=== PATIENT | female | born 1940 | race Caucasian/White ===

== ENCOUNTER 2019-02-17 21:11 | Inpatient (IN) | payer MEDICARE, SELFPAY ==
[2019-02-17 21:11] VITALS: BP 138/57; PULSE 83; RESP 16; TEMP 38.2; O2SAT 96; BMI 30.9
--- NOTE | 2019-02-17 22:47 | PCM.HP.STD ---
Problem List (1) Cellulitis of right leg Status: Acute History of Present Illness Date of Admission: 02/17/19 Chief Complaint: outpatient treatment failure of diagnosed cellulitis The patient is a 78 year old F with a significant history of Depression; HTN; and hyperlipidemia who was diagnosed with cellulitis of her right leg and was on doxycycline for 6 days and has not noticed improvement in her cellulitis. Patient continues to have swelling; redness; and pain at his right leg. She has poor appetite and chills. She thinks her symptoms started after she did mulching. The patient is a 78 year old F with a significant history of Depression; HTN; and hyperlipidemia who was diagnosed with cellulitis of her right leg and was on doxycycline for 6 days and has not noticed improvement in her cellulitis. Cellulitis Patient noted to have fever with T-max of 102. Received vancomycin in the emergency department. We will change antibiotics to cefazolin. Because of toxic effects of probable Streptococcus we will add clindamycin. Tylenol PRN pain and fever DVT prophylaxis Subcutaneous Lovenox Past Medical History Allergies Penicillins Adverse Reaction (Verified 02/17/19 21:13) Hives BEE STINGS Allergy (Uncoded 02/17/19 21:13) Anaphylaxis Home Medications: Ambulatory Orders Medication Instructions Recorded Atorvastatin Calcium [Lipitor] 20 mg PO QHS 12/15/15 Calcium Carbonate/Vitamin D3 1 tab PO DAILY 12/15/15 [Calcium 500+D Tablet Chew] Cholecalciferol (VIT D3) [Vitamin 2,000 unit PO DAILY 12/15/15 D3] Multivitamin [Daily Multiple 1 each PO DAILY 12/15/15 Vitamin] Paroxetine [Paxil] 20 mg PO DAILY 12/15/15 Vitamin E 200 unit PO DAILY 12/15/15 Triamterene 75MG/Hctz 50MG 1 tablet PO DAILY 08/23/16 [Maxzide] Amlodipine Besylate 2.5 mg PO DAILY 02/17/19 Aspirin 81 mg PO DAILY 02/17/19 Smoking Status: Former smoker VTE Information - Inpt Only VTE Present on Admission: No VTE Mechan Device Prophylaxis: None VTE Pharm Prophylaxis ordered?: Yes Patient Problems: Active and Suspected Problems Cellulitis of right leg (Acute) - Physical Exam General: Alert, Oriented x3, Cooperative HEENT: Atraumatic, PERRLA, EOMI, Normocephalic Neck: Supple, No JVD, Negative Carotid Bruits Lungs: Clear to auscultation, Normal air movement Cardiovascular: Regular rate, No murmurs Abdomen: Bowel Sounds Present, Soft, Non Tender Extremities: No edema, Capillary Refill Less than 3 Seconds Skin: - - Right leg swelling, eryhthema and tenderness Musculoskeletal: No Muscle Wasting Neurological: Cranial nerves II-XII grossly intact Psych/Mental Status: Normal Affect, Appropriate Vital Signs Temp Pulse Resp BP Pulse Ox 100.8 F H 83 16 138/57 H 96 02/17/19 21:11 02/17/19 21:11 02/17/19 21:11 02/17/19 21:11 02/17/19 21:11 Oxygen Delivery Method Room Air Weight: 87.09 kg Body Mass Index (BMI) 30.9 Assessment/Plan All Active Problems Cellulitis of right leg (Acute) The patient is a 78 year old F with a significant history of Depression; HTN; and hyperlipidemia who was diagnosed with cellulitis of her right leg and was on doxycycline for 6 days and has not noticed improvement in her cellulitis. Cellulitis Patient noted to have fever with T-max of 102. Received vancomycin in the emergency department. We will change antibiotics to cefazolin. Because of toxic effects of probable Streptococcus we will add clindamycin. Tylenol PRN pain and fever Oxycodone as needed. Attention On presentation her blood pressure was fairly stable Amlodipine; and triamterene/hydrochlorothiazide continued Trend blood pressure and adjust blood pressure medication. Depression Paroxetine continued DVT prophylaxis Subcutaneous Lovenox Code Visit OBSV E&M: 01837 Initial observation care L3
[2019-02-17 22:53] LABS: Absolute Lymphocyte Count 0.65 X10^3/ul (0.83-4.51); Absolute Neutrophil Count 4.2 X10^3/uL (2.0-7.7); Basophil# 0.01 X10^3/uL; Basophil% 0.2 % (0-1); Eosinophil# 0.58 X10^3/uL; Eosinophils% 9.5 % (0-5); Hematocrit 32.5 % (37-47); Lymphocyte # 0.65 X10^3/ul (4.0); Lymphocyte % 10.6 % (19-41); Mean Corp Hgb Conc 33.8 g/gl (32-36); Mean Corpuscular Hgb 28.9 pg (27.0-32.0); Mean Corpuscular Volume 85.3 fL (81-99); Mean Platelet Vol. 10.4 fl (6.2-12.0); Monocyte# 0.63 X10^3/uL; Monocyte% 10.3 % (0-10); Neutrophil # 4.21 X10^3/uL (2.7-7.7); Neutrophil % 68.6 % (47-70); POSITIVE COUNT NO; POSITIVE DIFFERENTIAL NO; POSITIVE MORPHOLOGY NO; Platelet Count 209 K/mm3 (150-450); RBC Distribution Width CV 13.5 % (11.6-14.6); Red Blood Count 3.81 M/mm3 (4.2-5.4); White Blood Count 6.1 K/mm3 (4.4-11.0)
--- NOTE | 2019-02-17 23:01 | ED.VISSUMM ---
- ER Visit Summary Date of Service: 02/17/19 Chief Complaint: Cellulitis History of Present Illness: The patient is a 78 F with right leg cellulitis. Symptoms started about 6 days ago. She was working in the yard but does not know of any specific injuries. She noted some redness. She saw her PCP and was treated with doxycycline. Despite treatment for almost a week, her symptoms are worsening. The redness is spreading and involves her right lower leg. She does report subjective fevers and chills. She has a history of cellulitis in the past that required hospitalization. Physical Examination: 100.8. Otherwise vital signs unremarkable. Alert and oriented. Right lower extremity is erythematous and tender to palpation from the right knee distal to the right ankle. Skin intact. Neurovascular intact distally. Compartments soft. Calves soft. Test Results: CBC unremarkable. Metabolic panel and cultures pending. Emergency Department Course and Treatment: Patient treated with vancomycin and Tylenol. She presents with cellulitis with failed outpatient treatment and will require hospitalization. Hospitalist was contacted. Treatment Plan: As above Disposition: Admission Impression: 1. Right lower extremity cellulitis This note was generated with [employer] dictation software. It may contain incorrect words, spelling, and punctuation that were not noted in review of the chart prior to signing ED Disposition - Plan for ED Patient: Referrals: Topher Hernandez MD [Primary Care Provider] -
[2019-02-17 23:31] LABS: Anion Gap 8 (5-15); BUN 17 mg/dL (7-18); BUN/Creat Ratio 14.9 RATIO (10-20); Calcium,Total 8.1 mg/dL (8.5-10.1); Chloride 97 mmol/L (98-107); Creatinine, Serum 1.14 mg/dL (0.55-1.02); EST Glomerular Filtration Rate 49 mL/min (>60); Est Glom Filt Rate - Afr Amer 59 mL/min (>60); Estimated Creatinine Clearance 38.07 ml/min; Glucose 119 mg/dL (74-106); Potassium 3.4 mmol/L (3.5-5.1); Sodium Level 133 mmol/L (136-145)
[2019-02-17] MEDS: Acetaminophen 500 MG Tablet 1000 MG PO (23:34)
[2019-02-17 23:49] VITALS: BMI 31.6
[2019-02-17 23:50] VITALS: BP 114/43; PULSE 68; RESP 20; TEMP 38.9; O2SAT 99
[2019-02-17 23:57] VITALS: BMI 31.6
[2019-02-18] VITALS (9 sets, daily range): BP systolic 100–132; BP diastolic 39–53; PULSE 59–80; RESP 16–18; TEMP 36.6–39.2; O2SAT 95–99
[2019-02-18] MEDS: Cefazolin 1 GM/50 ML BAG IV ×3 (00:45→13:23)
[2019-02-18] MEDS: Acetaminophen 325 MG Tablet 650 MG PO ×3 (06:01→20:07)
[2019-02-18 07:04] LABS: Absolute Neutrophil Count 3.2 X10^3/uL (2.0-7.7); Basophil# 0.01 X10^3/uL; Basophil% 0.2 % (0-1); Differential Indicated SCAN CRITERIA MET; Eosinophil# 0.47 X10^3/uL; Eosinophils% 9.7 % (0-5); Hemoglobin 10.4 g/dl (12.0-15.0); Lymphocyte % 10.3 % (19-41); Mean Corp Hgb Conc 33.5 g/gl (32-36); Mean Corpuscular Hgb 28.9 pg (27.0-32.0); Mean Corpuscular Volume 86.1 fL (81-99); Mean Platelet Vol. 10.1 fl (6.2-12.0); Monocyte# 0.59 X10^3/uL; Monocyte% 12.2 % (0-10); Neutrophil # 3.24 X10^3/uL (2.7-7.7); POSITIVE COUNT NO; POSITIVE DIFFERENTIAL YES; POSITIVE MORPHOLOGY NO; Platelet Count 178 K/mm3 (150-450); RBC Distribution Width CV 13.7 % (11.6-14.6); RBC Distribution Width SD 41.9 fl (35.1-43.9); White Blood Count 4.8 K/mm3 (4.4-11.0)
[2019-02-18 07:40] LABS: Platelet Estimate ADEQUATE (ADEQ); Red Cell Morphology NORM C+C NORMAL (NORM C&C)
[2019-02-18] MEDS: Multivitamins,Therapeutic Tablet 1 TABLET PO (08:45)
[2019-02-18] MEDS: Triamterene 75MG/Hctz 50MG Tablet 1 TABLET PO (08:45)
[2019-02-18] MEDS: Enoxaparin 40 MG/0.4 ML Syringe SC (08:45)
[2019-02-18] MEDS: Calcium Carb/Vitamin D 1 TABLET Tablet PO (08:45)
[2019-02-18] MEDS: amLODIPine 2.5 MG Tablet PO (08:46)
[2019-02-18] MEDS: Aspirin 81 MG TAB.CHEW PO (08:46)
[2019-02-18] MEDS: Paroxetine 20 MG Tablet PO (08:47)
--- NOTE | 2019-02-18 11:10 | CASEMGMT ---
RN CLIFF Face to Face with patient for initial transition planning/care coordination assessment. RN CM introduced self and role at [facility]. Patient lying in bed, alert and oriented. Patient willing to participate in assessment and is able to answer all questions appropriately. Care providers, pharmacy, and demographics verified. Patient wishes to discharge home, denies need for home health at this time. Patient states she has no further needs or concerns at this time. CM to follow for discharge planning needs that may arise. PCP: David Specialists: Karena Kelly Pharmacy: [facility] Insurance: [employer] Prescription Benefit:yes Living Will/HPOA: yes, Maximilian Colvin LNOK: Living Arrangements: Patient lives with in 1 story home. Patient was independent at home prior to hospitalization Transportation: self/ DME/HHC: Patient has walker, cane, and shower chair at home. Disposition Plan: Patient to discharge home with family support and follow-up plans in place. Brigette VITALE, RN, CM
--- NOTE | 2019-02-18 18:15 | PN_ITS ---
Patient Problems: Active and Suspected Problems Cellulitis of right leg (Acute) Subjective: Patient was seen and examined today, she has continued redness of her right lower leg, I decided to stop her clindamycin and increase her dose of Ancef, patient ran a temperature this afternoon but then defervesced. Patient's white blood cell count remained normal today, BMP was not repeated-I will repeat this tomorrow. - Physical Exam General: Alert, Oriented x3, Cooperative, No apparent distress, Well developed, Well nourished HEENT: Atraumatic, PERRLA, EOMI, Normocephalic Oral: Moist Mucosa Neck: Supple, No JVD, No Nuchal Rigidity, Trachea Midline, Thyroid Normal Size and Texture Lungs: Clear to auscultation, Normal air movement, No rhonchi, No wheeze, No rales Cardiovascular: Regular rate, Regular Rhythm, Normal S1, Normal S2, No murmurs, No Ectopic Activity, PMI Normal, No rub noted Abdomen: Bowel Sounds Present, Soft, Non Tender, Non-Distended, No hernias noted Extremities: Capillary Refill Less than 3 Seconds, - - Patient has redness over her right lower leg extending up to the distal knee area, she has evidence of stasis dermatitis changes to her skin on both lower legs-more so on the right Skin: No breakdown Neurological: Cranial nerves II-XII grossly intact, Neuro grossly intact, Sensory exam intact to light touch and pain, Coordination normal Psych/Mental Status: Normal Affect, Appropriate, Alert and oriented to time, place, person, mood and affect Vital Signs Temp Pulse Resp BP Pulse Ox 99.6 F H 72 16 104/45 L 96 02/18/19 15:26 02/18/19 14:12 02/18/19 14:12 02/18/19 14:12 02/18/19 14:12 Oxygen Delivery Method Room Air Weight: 88.9 kg Body Mass Index (BMI) 31.6 Intake and Output for Last 24 Hours 02/16/19 02/17/19 02/18/19 23:59 23:59 23:59 Intake Total 1500 / 1500 Balance 1500 / 1500 Laboratory Tests Past 24 Hrs 02/17/19 02/17/19 02/17/19 22:28 22:28 23:10 WBC 6.1 RBC 3.81 L Hgb 11.0 L Hct 32.5 L MCV 85.3 MCH 28.9 MCHC 33.8 RDW 13.5 RDW Differential 41.0 Plt Count 209 MPV 10.4 Immature Gran % (Auto) 0.800 Neut % (Auto) 68.6 Lymph % (Auto) 10.6 L [place] % (Auto) 10.3 H Eos % (Auto) 9.5 H Baso % (Auto) 0.2 Absolute Neuts (auto) 4.2 Absolute Lymphs (auto) 0.65 L Total Counted Not Reportable Differential Comment Platelet Estimate RBC Morphology Sodium Cancelled 133 L Potassium Cancelled 3.4 L Chloride Cancelled 97 L Carbon Dioxide Cancelled 28.0 Anion Gap Cancelled 8 BUN Cancelled 17 Creatinine Cancelled 1.14 H Estim Creat Clear Calc Cancelled 38.07 Est GFR (MDRD) Af Amer Cancelled 59 L Est GFR (MDRD) Non-Af Cancelled 49 L BUN/Creatinine Ratio Cancelled 14.9 Glucose Cancelled 119 H Calcium Cancelled 8.1 L 02/18/19 06:45 WBC 4.8 RBC 3.60 L Hgb 10.4 L Hct 31.0 L MCV 86.1 MCH 28.9 MCHC 33.5 RDW 13.7 RDW Differential 41.9 Plt Count 178 MPV 10.1 Immature Gran % (Auto) 0.600 Neut % (Auto) 67.0 Lymph % (Auto) 10.3 L [place] % (Auto) 12.2 H Eos % (Auto) 9.7 H Baso % (Auto) 0.2 Absolute Neuts (auto) 3.2 Absolute Lymphs (auto) 0.50 L Total Counted Not Reportable Differential Comment Platelet Estimate ADEQUATE RBC Morphology NORM C+C Sodium Potassium Chloride Carbon Dioxide Anion Gap BUN Creatinine Estim Creat Clear Calc Est GFR (MDRD) Af Amer Est GFR (MDRD) Non-Af BUN/Creatinine Ratio Glucose Calcium Medical Necessity - Tobacco Use Smoking Status: Former smoker Assessment/Plan All Active Problems Cellulitis of right leg (Acute) #1 cellulitis of the right lower leg-suspect either strep or staph-less likely MRSA, patient will remain on Ancef IV #2 chronic kidney dysfunction stage III-part of this may be due to her use of Maxide, recheck BMP, for now I will stop the patient's Maxide due to her low systolic blood pressure #3 essential hypertension #4 depression #5 hyperlipidemia Code Visit Inpatient E&M: 07726 Subs Hosp L2
[2019-02-18] MEDS: Ondansetron 4 MG/2 ML Vial IV (20:07)
[2019-02-18] MEDS: 0.9% NaCl Peripheral Flush Adult/Peds IV (20:07)
[2019-02-18] MEDS: 0.9% NaCl IVPB Med Flush (250 mL) 15 ML IV (20:13)
[2019-02-18] MEDS: Cefazolin 2 GM in 0.9% Normal Saline 100 ML IV (22:18)
[2019-02-18] MEDS: Atorvastatin Calcium 20 MG Tablet PO (22:18)
[2019-02-18] MEDS: MELATONIN 3 MG TABLET PO (22:51)
[2019-02-19] VITALS (8 sets, daily range): BP systolic 109–130; BP diastolic 41–53; PULSE 62–76; RESP 16–18; TEMP 37–39.5; O2SAT 92–97
[2019-02-19] MEDS: Cefazolin 2 GM in 0.9% Normal Saline 100 ML IV ×3 (05:38→21:41)
[2019-02-19] MEDS: Acetaminophen 325 MG Tablet 650 MG PO ×3 (06:07→20:02)
[2019-02-19 07:09] LABS: Anion Gap 10 (5-15); BUN 19 mg/dL (7-18); BUN/Creat Ratio 15.3 RATIO (10-20); Calcium,Total 8.2 mg/dL (8.5-10.1); Chloride 96 mmol/L (98-107); Creatinine, Serum 1.24 mg/dL (0.55-1.02); EST Glomerular Filtration Rate 44 mL/min (>60); Est Glom Filt Rate - Afr Amer 54 mL/min (>60); Glucose 92 mg/dL (74-106); Potassium 3.5 mmol/L (3.5-5.1); Sodium Level 131 mmol/L (136-145)
[2019-02-19] MEDS: Enoxaparin 40 MG/0.4 ML Syringe SC (08:54)
[2019-02-19] MEDS: amLODIPine 2.5 MG Tablet PO (08:54)
--- NOTE | 2019-02-19 09:40 | NURSING ---
BESIDES NORVASC & LOVENOX, AM MEDS ARE BEING HELD FOR NOW - PT STATES TAKES THEM IN THE AFTERNOON WHEN @ HOME & WOULD LIKE TO STAY ON SAME SCHEDULE HERE.
--- NOTE | 2019-02-19 15:24 | NURSING ---
PT HAD EMESIS, DENIES NAUSEA OR NEED FOR ANTIEMETIC AFTERWARD, STATES FEELS BETTER BUT WOULD LIKE SOME TUMS - DR CLARK PAGED FOR SAME.
[2019-02-19] MEDS: Calcium Carbonate 500 MG Tablet 1000 MG PO (15:41)
--- NOTE | 2019-02-19 16:00 | PCM.HP.ID ---
Problem List (1) Cellulitis of right leg Status: Acute Reason for Consult: cellulitis Consulted by: Dr. De Dios History of Present Illness: The patient is a 78 year old F who presented with about one week of RLE redness, mild soreness, fever. Thinks symptoms started while mulching. Was started on doxy outpt without improvement. Admitted through ED here after sx worsened. Given vanc, admitted on clinda/cefazolin. Now clinda stopped, leg redness slightly improved. No pain in leg now. Having fever to 102. Full ROS performed and neg except as noted above. - Medical History Surgical History: reviewed Allergies/Adverse Reactions: Allergies Penicillins Adverse Reaction (Verified 02/17/19 21:13) Hives BEE STINGS Allergy (Uncoded 02/17/19 21:13) Anaphylaxis Home Medications: Ambulatory Orders Medication Instructions Recorded Atorvastatin Calcium [Lipitor] 20 mg PO QHS 12/15/15 Calcium Carbonate/Vitamin D3 1 tab PO DAILY 12/15/15 [Calcium 500+D Tablet Chew] Cholecalciferol (VIT D3) [Vitamin 2,000 unit PO DAILY 12/15/15 D3] Multivitamin [Daily Multiple 1 each PO DAILY 12/15/15 Vitamin] Paroxetine [Paxil] 20 mg PO DAILY 12/15/15 Vitamin E 200 unit PO DAILY 12/15/15 Triamterene 75MG/Hctz 50MG 1 tablet PO DAILY 08/23/16 [Maxzide] Amlodipine Besylate 2.5 mg PO DAILY 02/17/19 Aspirin 81 mg PO DAILY 02/17/19 - Social History Tobacco Use: non-smoker SMOKING STATUS:: Former smoker Vital Signs Temp Pulse Resp BP Pulse Ox 99.2 F H 66 18 115/41 L 92 02/19/19 15:44 02/19/19 13:35 02/19/19 13:35 02/19/19 13:35 02/19/19 13:35 Oxygen Delivery Method Room Air Weight: 88.9 kg Body Mass Index (BMI) 31.6 Laboratory Tests Past 24 Hrs 02/19/19 06:34 Sodium 131 L Potassium 3.5 Chloride 96 L Carbon Dioxide 25.0 Anion Gap 10 BUN 19 H Creatinine 1.24 H Estim Creat Clear Calc 35.00 Est GFR (MDRD) Af Amer 54 L Est GFR (MDRD) Non-Af 44 L BUN/Creatinine Ratio 15.3 Glucose 92 Calcium 8.2 L - Other Studies Radiology: [] reviewed Other Studies: [] Route of nutrition/ use of supplements: [] Nutritional Intake: [] IV Site: [] Rowland Catheter: [] - Physical Exam General: Alert, Oriented x3, Cooperative, No apparent distress HEENT: Atraumatic, PERRLA, EOMI Neck: Supple, No Nodes Lungs: Clear to auscultation, Normal air movement Cardiovascular: Regular rate, Regular Rhythm, No murmurs Abdomen: Soft, Non Tender, Non-Distended Extremities: Edema Skin: - - Numerous petechial rash on R roberts/calf. Non tender, no drainage. IV Site: Peripheral, without redness Musculoskeletal: No Tenderness to Palpation of Joints or Extremities Neurological: Cranial nerves II-XII grossly intact - Assessment/Plan Antibiotics: [] Assessment/Plan: [] Active and Suspected Problems Cellulitis of right leg (Acute) Fever with petechial rash on RLE - not consistent with typical cellulitis. It is not tender, not blanching, minimal improvement with abx. Still having fever despite cefazolin, neg Bcx. Concern is for a cutaneous vasculitis. Platelet count is fine. Would consider skin biopsy and/or empiric course of steroids. Ok to continue cefazolin for now while cxs pending. Will follow, thank you, d/w Dr. De Dios.
--- NOTE | 2019-02-19 17:11 | PCM.PROGNOTE ---
Patient Problems: Active and Suspected Problems Cellulitis of right leg (Acute) Subjective: Patient was seen and examined today, she continues to spike temperatures at times, I had infectious diseases see her today and infectious disease was concerned that this reddened skin area over her right lower leg could be a vasculitis, they recommended placing the patient on a short course of prednisone and continuing her antibiotics. - Physical Exam General: Alert, Oriented x3, Cooperative, No apparent distress, Well developed, Well nourished HEENT: Atraumatic, PERRLA, EOMI, Normocephalic Oral: Moist Mucosa Neck: Supple, No JVD, No Nuchal Rigidity, Trachea Midline, Thyroid Normal Size and Texture Lungs: Clear to auscultation, Normal air movement, No rhonchi, No wheeze, No rales Cardiovascular: Regular rate, Regular Rhythm, Normal S1, Normal S2, No murmurs, No Ectopic Activity, PMI Normal, No rub noted, No Gallop Abdomen: Bowel Sounds Present, Soft, Non Tender, Non-Distended Extremities: No clubbing, No cyanosis, Capillary Refill Less than 3 Seconds, Edema - Mild generalized lower leg edema is noted bilaterally Skin: No breakdown, - - There is increased redness over the patient's right lower leg below the knee and above the ankle, this area is also warm Musculoskeletal: No Tenderness to Palpation of Joints or Extremities Neurological: Cranial nerves II-XII grossly intact, Neuro grossly intact, Sensory exam intact to light touch and pain, Coordination normal Psych/Mental Status: Normal Affect, Appropriate, Alert and oriented to time, place, person, mood and affect Vital Signs Temp Pulse Resp BP Pulse Ox 99.2 F H 66 18 115/41 L 92 02/19/19 15:44 02/19/19 13:35 02/19/19 13:35 02/19/19 13:35 02/19/19 13:35 Oxygen Delivery Method Room Air Weight: 88.9 kg Body Mass Index (BMI) 31.6 Intake and Output for Last 24 Hours 02/17/19 02/18/19 02/19/19 23:59 23:59 23:59 Intake Total 1500 / 1500 1757 / 1757 Balance 1500 / 1500 1757 / 1757 Laboratory Tests Past 24 Hrs 02/19/19 06:34 Sodium 131 L Potassium 3.5 Chloride 96 L Carbon Dioxide 25.0 Anion Gap 10 BUN 19 H Creatinine 1.24 H Estim Creat Clear Calc 35.00 Est GFR (MDRD) Af Amer 54 L Est GFR (MDRD) Non-Af 44 L BUN/Creatinine Ratio 15.3 Glucose 92 Calcium 8.2 L Medical Necessity - Tobacco Use Smoking Status: Former smoker Assessment/Plan All Active Problems Cellulitis of right leg (Acute) #1 cellulitis of the right lower leg-suspect either strep or staph-less likely MRSA, patient will remain on Ancef IV #2 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 Infectious diseases questioned that a skin biopsy would need to be done as an outpatient-this should be mentioned to the patient when she follows up with her PCP #3 chronic kidney dysfunction stage III-part of this may be due to her use of Maxide, I will repeat the patient's BMP tomorrow, her creatinine bumped up slightly from yesterday #4 essential hypertension #5 depression #6 hyperlipidemia Code Visit Inpatient E&M: 97662 Subs Hosp L2
--- NOTE | 2019-02-19 18:21 | NURSING ---
PT TEMP 101.2. TYLENOL NOT DUE UNTIL 1930. DR CLARK HERE ON UNIT & MADE AWARE. COOL WASHCLOTHS PLACED ON PT FOREHEAD/HEAD.
[2019-02-19] MEDS: Paroxetine 20 MG Tablet PO (18:49)
[2019-02-19] MEDS: predniSONE 20 MG Tablet 40 MG PO (18:49)
[2019-02-19] MEDS: Atorvastatin Calcium 20 MG Tablet PO (21:42)
[2019-02-20 03:32] VITALS: BP 109/56; PULSE 68; RESP 18; TEMP 37.3; O2SAT 96
[2019-02-20] MEDS: Cefazolin 2 GM in 0.9% Normal Saline 100 ML IV ×3 (05:51→22:27)
[2019-02-20 07:48] LABS: Anion Gap 8 (5-15); BUN 18 mg/dL (7-18); BUN/Creat Ratio 15.5 RATIO (10-20); Calcium,Total 8.7 mg/dL (8.5-10.1); Chloride 98 mmol/L (98-107); Creatinine, Serum 1.16 mg/dL (0.55-1.02); EST Glomerular Filtration Rate 48 mL/min (>60); Est Glom Filt Rate - Afr Amer 58 mL/min (>60); Estimated Creatinine Clearance 37.42 ml/min; Glucose 114 mg/dL (74-106); Potassium 3.8 mmol/L (3.5-5.1); Sodium Level 133 mmol/L (136-145)
[2019-02-20 08:59] VITALS: BP 109/52; PULSE 61; RESP 16; TEMP 37.3; O2SAT 94
[2019-02-20] MEDS: amLODIPine 2.5 MG Tablet PO (09:11)
[2019-02-20] MEDS: predniSONE 20 MG Tablet 40 MG PO (09:12)
[2019-02-20] MEDS: Aspirin 81 MG TAB.CHEW PO (09:14)
[2019-02-20] MEDS: 0.9% Normal Saline 1,000 ML 75 ML IV ×2 (09:24→22:45)
--- NOTE | 2019-02-20 09:45 | PCM.PROGNOTE ---
Patient Problems: Active and Suspected Problems Cellulitis of right leg (Acute) Subjective: Chief complaint: Follow-up after admission for probable right lower extremity cellulitis and questionable vasculitis of the left lower leg. Patient seen and examined. No acute events overnight. Swelling and erythema of the right leg continued to improve very slowly, still having petechial rash. Last spike of fever was around 10 PM last night, other vital signs are stable. - Physical Exam General: Alert, Oriented x3, Cooperative, No apparent distress HEENT: Atraumatic, PERRLA, EOMI, Normocephalic Oral: Moist Mucosa, No Gingival or Mucosal Lesions/ Ulcerations Neck: Supple, No JVD, Negative Carotid Bruits, Trachea Midline, Thyroid Normal Size and Texture Lungs: Clear to auscultation, No rhonchi, No wheeze, No rales, Diminished Cardiovascular: Regular rate, Regular Rhythm, Normal S1, Normal S2, PMI Normal Abdomen: Bowel Sounds Present, Soft, Non Tender, Non-Distended, No Hepato-splenomegaly Extremities: No clubbing, No cyanosis, No edema, - - Right leg: Minimal erythema, improving, petechial rash. Skin: No breakdown, Rash Present Lymphatic: No Cervical, Supraclavicular, or Inguinal Adenopathy Neurological: Cranial nerves II-XII grossly intact, Motor Exam 5/5 strength throughout Psych/Mental Status: Normal Affect, Appropriate, Alert and oriented to time, place, person, mood and affect Vital Signs Temp Pulse Resp BP Pulse Ox 99.1 F 61 16 109/52 L 94 02/20/19 08:59 02/20/19 08:59 02/20/19 08:59 02/20/19 08:59 02/20/19 08:59 Oxygen Delivery Method Room Air Weight: 195 lb 15.855 oz Body Mass Index (BMI) 31.6 Intake and Output for Last 24 Hours 02/18/19 02/19/19 02/20/19 23:59 23:59 23:59 Intake Total 1500 / 1500 2250 / 2250 818.7 / 818.7 Balance 1500 / 1500 2250 / 2250 818.7 / 818.7 Microbiology Past 72 Hours 02/17/19 22:37 Blood Culture - Preliminary Blood Culture (Wb) - Left Forearm No growth in 48 hours. 02/17/19 22:28 Blood Culture - Preliminary Blood Culture (Wb) - Anticubital Right No growth in 48 hours. Laboratory Tests Past 24 Hrs 02/20/19 07:00 Sodium 133 L Potassium 3.8 Chloride 98 Carbon Dioxide 27.0 Anion Gap 8 BUN 18 Creatinine 1.16 H Estim Creat Clear Calc 37.42 Est GFR (MDRD) Af Amer 58 L Est GFR (MDRD) Non-Af 48 L BUN/Creatinine Ratio 15.5 Glucose 114 H Calcium 8.7 Medical Necessity - Tobacco Use Smoking Status: Former smoker Assessment/Plan All Active Problems Cellulitis of right leg (Acute) This is a 78 years old female patient presented to the emergency room because of right leg swelling and erythema, found to have probable acute cellulitis of the right lower extremity with failure of outpatient therapy and because her clinical findings on the right leg is not typical for psoriasis, she is suspected to have vasculitis and started on steroids. #1 acute right lower extremity cellulitis/probable vasculitis: She is on IV cefazolin, started on prednisone yesterday according to infectious disease recommendations. Last spike fever was last night at 10 PM, other vital signs are stable. This morning, she has been afebrile. Blood cultures with no growth. She was started on prednisone for possible vasculitis. Recommended skin biopsy as outpatient. Plan: Check ESR, CRP, continue same treatment and if no fever overnight, patient will be discharged home tomorrow morning. #2 mild renal insufficiency: Fairly acute, likely because of diuretics. Patient was on Maxide. Plan to restart IV fluids, repeat BMP tomorrow morning. #3 hypertension: Blood pressure stable, continue Norvasc, keep holding Maxide. #4 hyperlipidemia: Continue statins. #5 depression: Continue Paxil. #6 DVT prophylaxis: Continue subcu Lovenox. This note was generated with [employer] software. It may contain incorrect words, spelling, and punctuation that were not noted in checking the note before signing. Code Visit Inpatient E&M: 85055 Subs Hosp L2
--- NOTE | 2019-02-20 09:52 | PN_ITS ---
Patient Problems: Active and Suspected Problems Cellulitis of right leg (Acute) Subjective: Chief complaint: Follow-up after admission for probable right lower extremity cellulitis and questionable vasculitis of the left lower leg. Patient seen and examined. No acute events overnight. Swelling and erythema of the right leg continued to improve very slowly, still having petechial rash. Last spike of fever was around 10 PM last night, other vital signs are stable. - Physical Exam General: Alert, Oriented x3, Cooperative, No apparent distress HEENT: Atraumatic, PERRLA, EOMI, Normocephalic Oral: Moist Mucosa, No Gingival or Mucosal Lesions/ Ulcerations Neck: Supple, No JVD, Negative Carotid Bruits, Trachea Midline, Thyroid Normal Size and Texture Lungs: Clear to auscultation, No rhonchi, No wheeze, No rales, Diminished Cardiovascular: Regular rate, Regular Rhythm, Normal S1, Normal S2, PMI Normal Abdomen: Bowel Sounds Present, Soft, Non Tender, Non-Distended, No Hepato- splenomegaly Extremities: No clubbing, No cyanosis, No edema, - - Right leg: Minimal erythema, improving, petechial rash. Skin: No breakdown, Rash Present Lymphatic: No Cervical, Supraclavicular, or Inguinal Adenopathy Neurological: Cranial nerves II-XII grossly intact, Motor Exam 5/5 strength throughout Psych/Mental Status: Normal Affect, Appropriate, Alert and oriented to time, place, person, mood and affect Vital Signs Temp Pulse Resp BP Pulse Ox 99.1 F 61 16 109/52 L 94 02/20/19 08:59 02/20/19 08:59 02/20/19 08:59 02/20/19 08:59 02/20/19 08:59 Oxygen Delivery Method Room Air Weight: 195 lb 15.855 oz Body Mass Index (BMI) 31.6 Intake and Output for Last 24 Hours 02/18/19 02/19/19 02/20/19 23:59 23:59 23:59 Intake Total 1500 / 1500 2250 / 2250 818.7 / 818.7 Balance 1500 / 1500 2250 / 2250 818.7 / 818.7 Microbiology Past 72 Hours 02/17/19 22:37 Blood Culture - Preliminary Blood Culture (Wb) - Left Forearm No growth in 48 hours. 02/17/19 22:28 Blood Culture - Preliminary Blood Culture (Wb) - Anticubital Right No growth in 48 hours. Laboratory Tests Past 24 Hrs 02/20/19 07:00 Sodium 133 L Potassium 3.8 Chloride 98 Carbon Dioxide 27.0 Anion Gap 8 BUN 18 Creatinine 1.16 H Estim Creat Clear Calc 37.42 Est GFR (MDRD) Af Amer 58 L Est GFR (MDRD) Non-Af 48 L BUN/Creatinine Ratio 15.5 Glucose 114 H Calcium 8.7 Medical Necessity - Tobacco Use Smoking Status: Former smoker Assessment/Plan All Active Problems Cellulitis of right leg (Acute) This is a 78 years old female patient presented to the emergency room because of right leg swelling and erythema, found to have probable acute cellulitis of the right lower extremity with failure of outpatient therapy and because her clinical findings on the right leg is not typical for psoriasis, she is nazia pected to have vasculitis and started on steroids. #1 acute right lower extremity cellulitis/probable vasculitis: She is on IV cefazolin, started on prednisone yesterday according to infectious disease recommendations. Last spike fever was last night at 10 PM, other vital signs are stable. This morning, she has been afebrile. Blood cultures with no growth. She was started on prednisone for possible vasculitis. Recommended skin biopsy as outpatient. Plan: Check ESR, CRP, continue same treatment and if no fever overnight, patient will be discharged home tomorrow morning. #2 mild renal insufficiency: Fairly acute, likely because of diuretics. Patient was on Maxide. Plan to restart IV fluids, repeat BMP tomorrow morning. #3 hypertension: Blood pressure stable, continue Norvasc, keep holding Maxide. #4 hyperlipidemia: Continue statins. #5 depression: Continue Paxil. #6 DVT prophylaxis: Continue subcu Lovenox. This note was generated with [employer] dictation software. It may contain incorrect words, spelling, and punctuation that were not noted in checking the note before signing. Code Visit Inpatient E&M: 68772 Subs Hosp L2
[2019-02-20 10:32] LABS: Erythrocyte Sedimentation Rate 57 mm/hr (0-30)
[2019-02-20 15:00] VITALS: BP 127/67; PULSE 58; RESP 16; TEMP 37.1; O2SAT 94
[2019-02-20] MEDS: Enoxaparin 40 MG/0.4 ML Syringe SC (15:04)
[2019-02-20 20:05] VITALS: BP 113/57; PULSE 55; RESP 18; TEMP 36.9; O2SAT 95
[2019-02-20] MEDS: Multivitamins,Therapeutic Tablet 1 TABLET PO (22:29)
[2019-02-20] MEDS: Paroxetine 20 MG Tablet PO (22:29)
[2019-02-20] MEDS: Calcium Carb/Vitamin D 1 TABLET Tablet PO (22:29)
[2019-02-20] MEDS: Atorvastatin Calcium 20 MG Tablet PO (22:29)
[2019-02-20] MEDS: Acetaminophen 325 MG Tablet 650 MG PO (22:34)
[2019-02-21] VITALS (8 sets, daily range): BP systolic 108–148; BP diastolic 51–67; PULSE 55–82; RESP 15–20; TEMP 36.6–37.3; O2SAT 92–97
[2019-02-21] MEDS: Cefazolin 2 GM in 0.9% Normal Saline 100 ML IV ×3 (05:42→22:15)
[2019-02-21 06:44] LABS: Absolute Lymphocyte Count 1.21 X10^3/ul (0.83-4.51); Absolute Neutrophil Count 3.5 X10^3/uL (2.0-7.7); Basophil# 0.03 X10^3/uL; Basophil% 0.6 % (0-1); Eosinophil# 0.08 X10^3/uL; Eosinophils% 1.5 % (0-5); Hematocrit 29.9 % (37-47); Hemoglobin 10.2 g/dl (12.0-15.0); Lymphocyte # 1.21 X10^3/ul (4.0); Lymphocyte % 22.8 % (19-41); Mean Corp Hgb Conc 34.1 g/gl (32-36); Mean Corpuscular Hgb 29.6 pg (27.0-32.0); Mean Corpuscular Volume 86.7 fL (81-99); Mean Platelet Vol. 10.5 fl (6.2-12.0); Monocyte# 0.51 X10^3/uL; Monocyte% 9.6 % (0-10); Neutrophil # 3.46 X10^3/uL (2.7-7.7); Neutrophil % 65.1 % (47-70); Platelet Count 159 K/mm3 (150-450); RBC Distribution Width CV 13.9 % (11.6-14.6); RBC Distribution Width SD 44.5 fl (35.1-43.9); Red Blood Count 3.45 M/mm3 (4.2-5.4); White Blood Count 5.3 K/mm3 (4.4-11.0)
[2019-02-21 06:46] LABS: POSITIVE COUNT NO; POSITIVE DIFFERENTIAL NO; POSITIVE MORPHOLOGY NO
[2019-02-21 07:32] LABS: Anion Gap 7 (5-15); BUN 22 mg/dL (7-18); BUN/Creat Ratio 21.2 RATIO (10-20); Calcium,Total 8.6 mg/dL (8.5-10.1); Chloride 104 mmol/L (98-107); Creatinine, Serum 1.04 mg/dL (0.55-1.02); EST Glomerular Filtration Rate 54 mL/min (>60); Est Glom Filt Rate - Afr Amer 66 mL/min (>60); Estimated Creatinine Clearance 41.73 ml/min; Glucose 89 mg/dL (74-106); Sodium Level 137 mmol/L (136-145)
[2019-02-21] MEDS: predniSONE 20 MG Tablet 40 MG PO (07:46)
[2019-02-21] MEDS: Aspirin 81 MG TAB.CHEW PO (07:46)
--- NOTE | 2019-02-21 08:25 | EKG12_ITS ---
Test Reason : Blood Pressure : / mmHG Vent. Rate : 067 BPM Atrial Rate : 067 BPM P-R Int : 150 ms QRS Dur : 074 ms QT Int : 362 ms P-R-T Axes : 022 002 066 degrees QTc Int : 382 ms Sinus rhythm with occasional Premature ventricular complexes Otherwise normal ECG When compared with ECG of 23-AUG-2016 15:36, Premature ventricular complexes are now Present Confirmed by JOHANA BOURGEOIS, MESSI ([id number]), make up editor ROSIE FINNEGAN ([id number]) on 02/23/2019 11:22:02 AM Referred By: Bienvenido Blackmon Confirmed By:MESSI VAUGHN MD
--- NOTE | 2019-02-21 08:33 | RAD_ITS ---
STUDY: X-RAY CHEST REASON FOR EXAM: Female, 78 years old. Shortness of breath TECHNIQUE: Single frontal view COMPARISON: None. FINDINGS: The lungs are expanded. Bilateral diffuse interstitial prominence. There is a focal right upper lobe infiltrate. Normal size heart. Normal mediastinum and fady. Normal visualized pulmonary arteries. Normal visualized aortic arch and descending thoracic aorta. Degenerative changes of the thoracic spine. Normal visualized ribs, clavicles, and shoulders. There is no demonstrated abnormality of the visualized soft tissue structures of the upper abdomen. RAD/Chest 1 View (Portable) IMPRESSION: Bilateral diffuse interstitial prominence. There is a focal right upper lobe infiltrate. Electronically Signed: Mich Gorman DO at 8:47 EDT Tel [phone], Service support ,
--- NOTE | 2019-02-21 09:34 | PCM.PROGNOTE ---
Patient Problems: Active and Suspected Problems Cellulitis of right leg (Acute) Subjective: Chief complaint: Follow-up after admission for probable right lower extremity cellulitis, questionable vasculitis and newly diagnosed community-acquired versus hospital acquired pneumonia. Patient seen and examined. No acute events overnight. This morning when I entered the room, patient was coming back from the bathroom and she stated that she is very short of breath and feeling very cold. She looked short of breath and distressed. She denied cough or sputum production. She denied chest pain. Her temperature was 99.2 Fahrenheit. Her pulse ox was 89% on room air, improved with oxygen. Stat EKG revealed sinus rhythm with PVCs, no acute ischemic changes. Chest x-ray revealed right upper lobe infiltrate which is new. It is not clear if the patient has this pneumonia before she came in or she acquired it after admission. - Physical Exam General: Alert, Oriented x3, Cooperative, - - Short of breath, distress. HEENT: Atraumatic, PERRLA, EOMI, Normocephalic Oral: Moist Mucosa, No Gingival or Mucosal Lesions/ Ulcerations Neck: Supple, No JVD, Negative Carotid Bruits, Trachea Midline, Thyroid Normal Size and Texture Lungs: No wheeze, Diminished, Rales, Rhonchi, Short of Breath, - - Decreased breath sounds bilateral, more on the right side with crackles, rhonchi. Cardiovascular: Regular rate, Regular Rhythm, Normal S1, Normal S2, PMI Normal Abdomen: Bowel Sounds Present, Soft, Non Tender, Non-Distended, No Hepato-splenomegaly, Obese Extremities: No clubbing, No cyanosis, No edema Skin: No breakdown, Rash Present Lymphatic: No Cervical, Supraclavicular, or Inguinal Adenopathy Neurological: Cranial nerves II-XII grossly intact, Motor Exam 5/5 strength throughout Psych/Mental Status: Normal Affect, Appropriate, Alert and oriented to time, place, person, mood and affect Vital Signs Temp Pulse Resp BP Pulse Ox 99.2 F H 82 20 H 148/67 H 96 02/21/19 08:27 02/21/19 08:27 02/21/19 08:31 02/21/19 08:27 02/21/19 08:31 Oxygen Flow Rate (L/min) 2 Oxygen Delivery Method Nasal Cannula Weight: 195 lb 15.855 oz Body Mass Index (BMI) 31.6 Intake and Output for Last 24 Hours 02/19/19 02/20/19 02/21/19 23:59 23:59 23:59 Intake Total 2250 / 2250 2625.7 / 2625.7 1160 / 1160 Output Total 700 / 700 Balance 2250 / 2250 2625.7 / 2625.7 460 / 460 Microbiology Past 72 Hours 02/17/19 22:37 Blood Culture - Preliminary Blood Culture (Wb) - Left Forearm No growth in 48 hours. 02/17/19 22:28 Blood Culture - Preliminary Blood Culture (Wb) - Anticubital Right No growth in 48 hours. Laboratory Tests Past 24 Hrs 02/20/19 02/20/19 02/21/19 07:00 07:00 06:02 WBC 5.3 RBC 3.45 L Hgb 10.2 L Hct 29.9 L MCV 86.7 MCH 29.6 MCHC 34.1 RDW 13.9 RDW Differential 44.5 H Plt Count 159 MPV 10.5 Immature Gran % (Auto) 0.400 Neut % (Auto) 65.1 Lymph % (Auto) 22.8 [place] % (Auto) 9.6 Eos % (Auto) 1.5 Baso % (Auto) 0.6 Absolute Neuts (auto) 3.5 Absolute Lymphs (auto) 1.21 Total Counted Not Reportable ESR 57 H D-Dimer Quant (PE/DVT) Sodium Potassium Chloride Carbon Dioxide Anion Gap BUN Creatinine Estim Creat Clear Calc Est GFR (MDRD) Af Amer Est GFR (MDRD) Non-Af BUN/Creatinine Ratio Glucose Calcium C-React Prot Ext Range 15.10 H B-Natriuretic Peptide 02/21/19 02/21/19 02/21/19 06:02 06:02 09:18 WBC RBC Hgb Hct MCV MCH MCHC RDW RDW Differential Plt Count MPV Immature Gran % (Auto) Neut % (Auto) Lymph % (Auto) [place] % (Auto) Eos % (Auto) Baso % (Auto) Absolute Neuts (auto) Absolute Lymphs (auto) Total Counted ESR D-Dimer Quant (PE/DVT) Pending Sodium 137 Potassium 4.0 Chloride 104 Carbon Dioxide 26.0 Anion Gap 7 BUN 22 H Creatinine 1.04 H Estim Creat Clear Calc 41.73 Est GFR (MDRD) Af Amer 66 Est GFR (MDRD) Non-Af 54 L BUN/Creatinine Ratio 21.2 H Glucose 89 Calcium 8.6 C-React Prot Ext Range B-Natriuretic Peptide Pending Clinical Impression(s) from Imaging Studies Chest X-Ray 02/21/19 08:33 IMPRESSION: Bilateral diffuse interstitial prominence. There is a focal right upper lobe infiltrate. Electronically Signed: iMch GormanDO at 8:47 EDT Tel [phone], Service support , Medical Necessity - Tobacco Use Smoking Status: Former smoker Assessment/Plan All Active Problems Cellulitis of right leg (Acute) This is a 78 years old female patient presented to the emergency room because of right leg swelling and erythema, found to have probable acute cellulitis of the right lower extremity with failure of outpatient therapy and because her clinical findings on the right leg is not typical for cellulitis, she is suspected to have vasculitis and started on steroids. Today, she complained of shortness of breath, being cold and shivering. Chest x-ray done and revealed right upper lobe infiltrate consistent with pneumonia. Also, d-dimer was elevated. #1 right upper lobe community-acquired versus hospital-acquired pneumonia: This is a new diagnosis. It is not clear if the patient acquired this pneumonia before admission or after it. She is afebrile, not tachycardic but she is hypoxic. Chest x-ray reviewed as above. D-dimer was elevated. Plan: Repeat blood culture, start IV Levaquin and aztreonam, check BNP, albuterol every 6 hours, discontinue prednisone, oxygen by nasal cannula to keep O2 saturation more than 92%, repeat CBC and BMP tomorrow morning. #2 elevated d-dimer with hypoxia: She has been on DVT prophylaxis. She may had acute DVT of the right leg and now, has PE. Plan: CTA chest, venous Doppler of the right leg. #3 acute right lower extremity cellulitis/probable vasculitis: Remained on IV cefazolin and empiric prednisone. Overnight, she has been afebrile, other vital signs are stable. Erythema and swelling of the right leg continued to improve. Blood cultures with no growth. ESR and CRP were elevated. Infectious disease recommended that patient may need skin biopsy as outpatient. Plan to DC IV cefazolin and prednisone, start IV Levaquin and aztreonam as above, venous Doppler as above. #4 mild renal insufficiency: Fairly acute, likely because of diuretics. Patient was on Maxide. Today's creatinine is 1.04, improved. We will start patient back on small amount of IV fluids because she is going for CTA chest with IV contrast, start Mucomyst twice daily, repeat BMP tomorrow morning. #5 hypertension: Blood pressure stable, continue Norvasc, keep holding Maxide. #6 hyperlipidemia: Continue statins. #7 depression: Continue Paxil. #8 DVT prophylaxis: Continue subcu Lovenox. This note was generated with [employer] dictation software. It may contain incorrect words, spelling, and punctuation that were not noted in checking the note before signing. Code Visit Inpatient E&M: 20715 Subs Hosp L3
[2019-02-21 09:35] LABS: D-Dimer Quantitative (DVT/PE) 2.21 FEU/ug/m (0.27-0.49)
--- NOTE | 2019-02-21 09:39 | VDLE_ITS ---
Reason For Study: Swelling RIGHT GSV is normal. CFV is compressible, spontaneous, phasic, competent and demonstrates normal augmentation. FV is compressible, spontaneous, phasic, competent and demonstrates normal augmentation. POP V is compressible, spontaneous, phasic, competent and demonstrates normal augmentation. T/P Trunk is compressible. PTV is compressible. RT PerV is compressible. Procedure Exam performed in department. A preliminary report was called and/or faxed to pt's RN. Interpretation Summary There is no evidence of right lower extremity deep vein thrombosis. Right greater saphenous vein appears patent and compressible segmentally. Ordering Physician: Roseline Dowell Referring Physician: Topher Hernandez M.D. Performed By: Brigette Cavazos RVT
--- NOTE | 2019-02-21 09:40 | CT_ITS ---
STUDY: CTA CHEST REASON FOR EXAM: Female, 78 years old. Elevated d-dimer, hypoxia RADIATION DOSAGE (If Supplied By Facility): CTDIvol = ( 16.22 ) mGy, DLP = ( 503.15 ) mGycm TECHNIQUE: The examination was performed with the intravenous administration of 100 IV Isovue 370. Post-processing of the angiographic images was performed, with multiplanar reformation and 3D reconstruction. Individualized dose optimization techniques were used for this CT. COMPARISON: None. FINDINGS: Normal enhancement of the main pulmonary artery and right and left pulmonary arteries. Normal enhancement of the bilateral peripheral pulmonary arteries. There is no demonstrated pulmonary embolism. Normal thoracic aorta and visualized great vessels. There is no demonstrated aortic dissection. Normal heart and pericardium. Normal mediastinum. Normal hilar regions. Normal visualized trachea and bronchi. The lungs are well expanded. Mild pleural effusions with basilar atelectasis bilaterally. Pulmonary interstitial prominence. Diffuse right pulmonary infiltrates. Mild left basilar infiltrate. Normal chest wall structures. Mild degenerative vertebral changes. Prominent hiatal hernia . Possible mild esophageal wall thickening. CT/CTA Chest W/WO Contrast IMPRESSION: No demonstrated pulmonary embolism or arterial dissection. Diffuse right pulmonary infiltrates. Mild left basilar infiltrate. Mild effusions at the lung bases. Hiatal hernia. Possible mild esophageal wall thickening. Electronically Signed: Mich Gorman DO at 12:40 EDT Tel [phone], Service support ,
[2019-02-21] MEDS: levoFLOXacin IV 750 MG/150 ML BAG 100 MG IV (09:54)
[2019-02-21] MEDS: amLODIPine 2.5 MG Tablet PO (09:56)
[2019-02-21] MEDS: Enoxaparin 40 MG/0.4 ML Syringe SC (09:56)
[2019-02-21] MEDS: Acetaminophen 325 MG Tablet 650 MG PO ×2 (09:58→22:17)
[2019-02-21 11:03] LABS: BNP,B-Type NATRIURETIC PEPTIDE 434.5 pg/mL (0-100)
[2019-02-21] MEDS: guaiFENesin 600 MG Tablet PO ×2 (12:19→22:28)
[2019-02-21] MEDS: Acetylcysteine (Mucomyst Oral) 20% SOLN 600 MG PO ×2 (12:21→22:33)
[2019-02-21] MEDS: 0.9% NaCl Peripheral Flush Adult/Peds IV ×2 (12:25→22:17)
--- NOTE | 2019-02-21 13:40 | ECHOD_ITS ---
Reason For Study: DYSPNEA Procedure This was a 2D Doppler, Color Flow transthoracic echocardiogram. Exam performed portable in patient room. Left Ventricle Normal LV size. Left ventricular systolic function is normal. The estimated ejection fraction is 60 %. Stage 2 diastolic dysfunction. No regional wall motion abnormalities noted. Right Ventricle Normal RV size. Normal systolic function. Atria The left atrium is moderately enlarged. The right atrium is moderately enlarged. Mitral Valve Normal mitral valve. Tricuspid Valve Normal tricuspid valve. Mild (1+) tricuspid valve insufficiency. Pulmonary artery systolic pressure is 40 mmHg. Aortic Valve Normal aortic valve. Trisinus/trileaflet aortic valve. Pulmonic Valve Normal pulmonic valve. Great Vessels Normal aortic root. The pulmonary artery is normal size. Normal inferior vena cava. Pericardium/Pleural No pericardial effusion. MMode/2D Measurements & Calculations LVIDd: 3.9 cm IVSd: 0.99 cm Ao root diam: 2.3 cm LVIDs: 2.5 cm LVPWd: 1.1 cm RVDd: 4.4 cm FS: 35.2 % LAV(MOD-bp): 86.0 ml LA A4 area: 27.2 cm2 LA dimension(2D): 4.4 cm LAV(MOD-bp) Indexed: 43.4 ml/m2 LAV(MOD-sp2): 84.4 ml LAV(MOD-sp4): 83.7 ml RA A4 area: 24.2 cm2 Time Measurements MV dec time: 0.22 sec Doppler Measurements & Calculations MV E max yimi: 125.8 cm/sec Lat Peak E' Yimi: 3.4 cm/sec Med Peak E' Yimi: 8.6 cm/sec MV A max yimi: 74.4 cm/sec E/E' lat: 37.5 E/E' med: 14.7 MV E/A: 1.7 Ao V2 max: 163.5 cm/sec LV V1 max: 145.6 cm/sec TR max yimi: 299.2 cm/sec Ao max P.7 mmHg LV V1 max P.5 mmHg TR max P.8 mmHg Interpretation Summary Normal LV size. Left ventricular systolic function is normal. The estimated ejection fraction is 60 %. Stage 2 diastolic dysfunction. Mild (1+) tricuspid valve insufficiency. Ordering Physician: Roseline Dowell Referring Physician: Topher Hernandez M.D. Performed By: Debbi Trejo, ANDREW, RVT
[2019-02-21] MEDS: Albuterol 2.5 MG/3 ML VIAL.NEB. INHALATION ×2 (13:42→19:09)
[2019-02-21] MEDS: Atorvastatin Calcium 20 MG Tablet PO (22:16)
[2019-02-21] MEDS: Paroxetine 20 MG Tablet PO (22:16)
[2019-02-21] MEDS: MELATONIN 3 MG TABLET PO (22:17)
[2019-02-21] MEDS: Calcium Carb/Vitamin D 1 TABLET Tablet PO (22:34)
[2019-02-21] MEDS: Multivitamins,Therapeutic Tablet 1 TABLET PO (22:34)
[2019-02-22] VITALS (12 sets, daily range): BP systolic 102–130; BP diastolic 44–65; PULSE 53–76; RESP 15–18; TEMP 36.7–37.3; O2SAT 76–96
[2019-02-22] MEDS: Albuterol 2.5 MG/3 ML VIAL.NEB. INHALATION ×4 (00:30→19:35)
[2019-02-22] MEDS: 0.9% NaCl Peripheral Flush Adult/Peds IV ×2 (05:14→14:57)
[2019-02-22 05:49] LABS: Absolute Lymphocyte Count 1.61 X10^3/ul (0.83-4.51); Absolute Neutrophil Count 3.6 X10^3/uL (2.0-7.7); Basophil# 0.03 X10^3/uL; Basophil% 0.5 % (0-1); Eosinophil# 0.03 X10^3/uL; Eosinophils% 0.5 % (0-5); Hematocrit 28.6 % (37-47); Hemoglobin 9.6 g/dl (12.0-15.0); Lymphocyte # 1.61 X10^3/ul (4.0); Mean Corp Hgb Conc 33.6 g/gl (32-36); Mean Corpuscular Hgb 28.7 pg (27.0-32.0); Mean Corpuscular Volume 85.6 fL (81-99); Mean Platelet Vol. 10.1 fl (6.2-12.0); Monocyte# 0.49 X10^3/uL; Monocyte% 8.5 % (0-10); Neutrophil # 3.57 X10^3/uL (2.7-7.7); Neutrophil % 62.3 % (47-70); Platelet Count 153 K/mm3 (150-450); RBC Distribution Width SD 44.2 fl (35.1-43.9); Red Blood Count 3.34 M/mm3 (4.2-5.4); White Blood Count 5.7 K/mm3 (4.4-11.0)
[2019-02-22 06:03] LABS: Anion Gap 8 (5-15); BUN 17 mg/dL (7-18); BUN/Creat Ratio 19.8 RATIO (10-20); Calcium,Total 8.5 mg/dL (8.5-10.1); Chloride 104 mmol/L (98-107); Creatinine, Serum 0.86 mg/dL (0.55-1.02); EST Glomerular Filtration Rate 68 mL/min (>60); Est Glom Filt Rate - Afr Amer 82 mL/min (>60); Estimated Creatinine Clearance 50.47 ml/min; Glucose 79 mg/dL (74-106); Potassium 3.7 mmol/L (3.5-5.1); Sodium Level 138 mmol/L (136-145)
[2019-02-22 06:10] LABS: POSITIVE COUNT NO; POSITIVE DIFFERENTIAL NO; POSITIVE MORPHOLOGY NO
[2019-02-22] MEDS: Cefazolin 2 GM in 0.9% Normal Saline 100 ML IV (06:12)
[2019-02-22] MEDS: Aspirin 81 MG TAB.CHEW PO (08:47)
--- NOTE | 2019-02-22 08:47 | PCM.PN.HOSP ---
Patient Problems: Active and Suspected Problems Cellulitis of right leg (Acute) Subjective: Patient with no acute events overnight per self and per nursing report. Patient states that her right lower extremity is mildly comfortable but improved since day prior, right lower extremity rash still present but improved patient notes. Patient denies any dyspnea but remains on 1 L nasal cannula. She states she has coughed occasionally but not bringing anything up and not severe. Patient denies fevers, chills, nausea, emesis, abdominal pain, chest pain or dyspnea. Objective: Physical Examination: General: awake, alert, oriented x 3 and cooperative, seated upright in in the bedside chair, no acute distress. Skin: normal color, turgor, no icterus, cyanosis except right lower extremity rash, nonblanching, vasculitis suspected with also similar staged changes noted to left distal roberts region. HEENT: AT/NC, EOMI, PERRLA, MMM. Lungs: CTA bilaterally, diminished bases, right greater than left, mild crackles noted, no rhonchi or wheezing or rales. Heart: Regular rate and rhythm; no gallop, rub audible. Abdomen: soft, obese, NTTP, ND, normal BS. Extremities: no cyanosis, clubbing, see skin. Neurological: patient awake, alert, oriented x 3; cognitive function intact; pupils equally reactive to light and accomodation; cranial nerves II-XII grossly normal, moving all 4 extremities, no focal deficits, strength improved, mildly to moderately globally decreased. Psychiatric: affect appears normal, no acute evidence of depressive or anxiety feelings. Vitals/I&O's: Vital Signs Temp Pulse Resp BP Pulse Ox 98.1 F 63 18 122/52 H 93 02/22/19 08:38 02/22/19 08:38 02/22/19 08:38 02/22/19 08:38 02/22/19 08:38 Oxygen Flow Rate (L/min) 1 Oxygen Delivery Method Nasal Cannula Weight: 195 lb 15.855 oz Body Mass Index (BMI) 31.6 Intake and Output for Last 24 Hours 02/20/19 02/21/19 02/22/19 23:59 23:59 23:59 Intake Total 2625.7 / 2625.7 1958 / 1958 925 / 925 Output Total 700 / 700 Balance 2625.7 / 2625.7 1259 / 1259 925 / 925 Microbiology Past 72 Hours 02/17/19 22:37 Blood Culture (Wb) - Left Forearm Blood Culture - Preliminary No growth in 48 hours. 02/17/19 22:28 Blood Culture (Wb) - Anticubital Right Blood Culture - Preliminary No growth in 48 hours. Laboratory Results 02/21/19 06:02: B-Natriuretic Peptide 434.5 H 02/21/19 09:18: D-Dimer Quant (PE/DVT) 2.21 H* 02/21/19 10:00: Troponin I < 0.015 02/22/19 05:31: WBC 5.7, RBC 3.34 L, Hgb 9.6 L, Hct 28.6 L, MCV 85.6, MCH 28.7, MCHC 33.6, RDW 14.0, RDW Differential 44.2 H, Plt Count 153, MPV 10.1, Immature Gran % (Auto) 0.200, Neut % (Auto) 62.3, Lymph % (Auto) 28.0, Edgar % (Auto) 8.5, Eos % (Auto) 0.5, Baso % (Auto) 0.5, Absolute Neuts (auto) 3.6, Absolute Lymphs (auto) 1.61, Total Counted Not Reportable 02/22/19 05:31: Sodium 138, Potassium 3.7, Chloride 104, Carbon Dioxide 26.0, Anion Gap 8, BUN 17, Creatinine 0.86, Estim Creat Clear Calc 50.47, Est GFR (MDRD) Af Amer 82, Est GFR (MDRD) Non-Af 68, BUN/Creatinine Ratio 19.8, Glucose 79, Calcium 8.5 Current Medications Acetaminophen (Tylenol) 650 mg PO Q6H PRN PRN PRN Reason: Mild Pain (1-3)/Temp > 100.7 F Last Admin: 02/21/19 22:17 Dose: 650 mg Acetylcysteine (Mucomyst) 600 mg PO BID [facility] Stop: 02/23/19 10:01 Last Admin: 02/21/19 22:33 Dose: 600 mg Albuterol Sulfate (Ventolin Aerosols) 2.5 mg INHALATION Q6H.RT [facility] Last Admin: 02/22/19 06:54 Dose: 2.5 mg Amlodipine Besylate (Norvasc) 2.5 mg PO DAILY [facility] Last Admin: 02/21/19 09:56 Dose: 2.5 mg Aspirin (Aspirin, Baby) 81 mg PO DAILY@0800 [facility] Last Admin: 02/21/19 07:46 Dose: 81 mg Atorvastatin Calcium (Lipitor) 20 mg PO QHS [facility] Last Admin: 02/21/19 22:16 Dose: 20 mg Calcium Carbonate (Tums) 1,000 mg PO Q4H PRN PRN PRN Reason: DYSPEPSIA Last Admin: 02/19/19 15:41 Dose: 1,000 mg Calcium/Vitamin D (Os-Master 500mg + D) 1 tablet PO QHS [facility] Last Admin: 02/21/19 22:34 Dose: 1 tablet Enoxaparin Sodium (Lovenox) 40 mg SC DAILY@1000 [facility] Last Admin: 02/21/19 09:56 Dose: 40 mg Guaifenesin (Mucinex) 600 mg PO BID [facility] Last Admin: 02/21/19 22:28 Dose: 600 mg Sodium Chloride () 250 mls @ 15 mls/hr IV .[id number] PRN PRN Reason: SALINE FLUSH Last Admin: 02/18/19 20:13 Dose: 15 mls/hr Cefazolin Sodium 2 gm/ Sodium (Chloride) 110 mls @ 150 mls/hr IV Q8 [facility] Last Admin: 02/22/19 06:12 Dose: 150 mls/hr Aztreonam 2 gm/ Sodium (Chloride) 100 mls @ 150 mls/hr IV Q8 [facility] Last Admin: 02/22/19 05:14 Dose: 150 mls/hr Levofloxacin (Levaquin Iv) 750 mg in 150 mls @ 100 mls/hr IV Q48 [facility] Last Admin: 02/21/19 09:54 Dose: 100 mls/hr Melatonin (Melatonin) 3 mg PO QHS PRN PRN PRN Reason: INSOMNIA Last Admin: 02/21/19 22:17 Dose: 3 mg Multivitamins (Multivitamin) 1 tablet PO QHS [facility] Last Admin: 02/21/19 22:34 Dose: 1 tablet Ondansetron HCl (Zofran) 4 mg IV Q8H PRN PRN PRN Reason: NAUSEA/VOMITING Last Admin: 02/18/19 20:07 Dose: 4 mg Oxycodone HCl (Oxyir) 5 mg PO Q6H PRN PRN PRN Reason: SEVERE PAIN (6-10/10) Paroxetine HCl (Paxil) 20 mg PO QHS [facility] Last Admin: 02/21/19 22:16 Dose: 20 mg Sodium Chloride () 5 - 15 ml IV UD PRN PRN Reason: SALINE FLUSH Last Admin: 02/22/19 05:14 Dose: 10 ml Medical Necessity - Tobacco Use Smoking Status: Former smoker Assessment/Plan All Active Problems Cellulitis of right leg (Acute) The patient is a 78 y/o F w/ PMHx: HTN, HTN, Obesity, Depression and Anxiety, Former Tobacco use who presents to the [facility] ED on 02/17/19 with initial right lower extremity cellulitis, recently treated with doxycycline without improvement. (1) RLE Extremity Cellulitis versus Vasculitis: CRP 15.10, ESR 57; however, was obtained in the setting of at that time unknown #2, PNA. Admission CBC without marked WBC elevation or L shift. Initially treated with IV Ancef, discontinued and transition to IV Levaquin and aztreonam secondary to concurrent pneumonia, ID consulted and following, some concern for vasculitis plan for outpatient follow-up for possible biopsy, initial antibiotic therapies were discontinued given #2, DVT US RLE preliminary wet read negative with final read pending. (2) RUL Community Acquired Pneumonia with Hypoxia: CXR not market findings however CTPA performed with no evidence of PE or dissection with notable diffuse right pulmonary infiltrate and mild left basilar infiltrate. Patient transition from initial antibiotic therapy to IV Levaquin and Aztreonam and as treat him pending ID reevaluation given concerns for possible hospital-acquired component, continue ATC duonebs, PRN albuterol, HOB, IS parameters w/ pending sputum cultures and urine antigens. Bld cx x 2 on 02/17/19 with NGTD, repeat 02/21/19 x 2 pending. Will need oxygenation testing prior to discharge to home. (3) Acute kidney injury: Secondary to acute presentation, #1, #2, medications. 02/19/19 BUN/Cr 19/1.24, hydrated, eventually held secondary to mild hypoxia, repeat 02/22/19 BUN/Cr 17/0.86. Given recent CTPA with [facility] prior patient dosed acetylcysteine and had been given IV fluids. (4) Hyponatremia, suspected hypovolemic: Admission Na 133, decreased to 131, improved w/ IVFs, 02/22/19 Na 138. (5) Chronic Normocytic Anemia: Admission Hgb 11, baseline 9-11 range, 02/22/19 Hgb 9/6, stable. (6) Hypertension: Continue home regimen including Norvasc, recently started Maxide outpatient was held, PRN hydralazine. (7) Hyperlipidemia: Continue home statin regimen. (8) Obesity: Weight loss and lifestyle changes encouraged. (9) Former tobacco use: Encouraged continued tobacco cessation. (10) Depression and Anxiety: Continue home Paxil regimen. (11) DVT prophylaxis: SCDs, Lovenox. Code Visit Inpatient E&M: 34467 Subs Hosp L2
--- NOTE | 2019-02-22 09:03 | PN_ITS ---
Patient Problems: Active and Suspected Problems Cellulitis of right leg (Acute) Subjective: Patient with no acute events overnight per self and per nursing report. Patient states that her right lower extremity is mildly comfortable but improved since day prior, right lower extremity rash still present but improved patient notes. Patient denies any dyspnea but remains on 1 L nasal cannula. She states she has coughed occasionally but not bringing anything up and not severe. Patient denies fevers, chills, nausea, emesis, abdominal pain, chest pain or dyspnea. Objective: Physical Examination: General: awake, alert, oriented x 3 and cooperative, seated upright in in the bedside chair, no acute distress. Skin: normal color, turgor, no icterus, cyanosis except right lower extremity rash, nonblanching, vasculitis suspected with also similar staged changes noted to left distal roberts region. HEENT: AT/NC, EOMI, PERRLA, MMM. Lungs: CTA bilaterally, diminished bases, right greater than left, mild crackles noted, no rhonchi or wheezing or rales. Heart: Regular rate and rhythm; no gallop, rub audible. Abdomen: soft, obese, NTTP, ND, normal BS. Extremities: no cyanosis, clubbing, see skin. Neurological: patient awake, alert, oriented x 3; cognitive function intact; pupils equally reactive to light and accomodation; cranial nerves II-XII grossly normal, moving all 4 extremities, no focal deficits, strength improved, mildly to moderately globally decreased. Psychiatric: affect appears normal, no acute evidence of depressive or anxiety feelings. Vitals/I&O's: Vital Signs Temp Pulse Resp BP Pulse Ox 98.1 F 63 18 122/52 H 93 02/22/19 08:38 02/22/19 08:38 02/22/19 08:38 02/22/19 08:38 02/22/19 08:38 Oxygen Flow Rate (L/min) 1 Oxygen Delivery Method Nasal Cannula Weight: 195 lb 15.855 oz Body Mass Index (BMI) 31.6 Intake and Output for Last 24 Hours 02/20/19 02/21/19 02/22/19 23:59 23:59 23:59 Intake Total 2625.7 / 2625.7 1958 / 1958 925 / 925 Output Total 700 / 700 Balance 2625.7 / 2625.7 1259 / 1259 925 / 925 Microbiology Past 72 Hours 02/17/19 22:37 Blood Culture (Wb) - Left Forearm Blood Culture - Preliminary No growth in 48 hours. 02/17/19 22:28 Blood Culture (Wb) - Anticubital Right Blood Culture - Preliminary No growth in 48 hours. Laboratory Results 02/21/19 06:02: B-Natriuretic Peptide 434.5 H 02/21/19 09:18: D-Dimer Quant (PE/DVT) 2.21 H* 02/21/19 10:00: Troponin I < 0.015 02/22/19 05:31: WBC 5.7, RBC 3.34 L, Hgb 9.6 L, Hct 28.6 L, MCV 85.6, MCH 28.7, MCHC 33.6, RDW 14.0, RDW Differential 44.2 H, Plt Count 153, MPV 10.1, Immature Gran % (Auto) 0.200, Neut % (Auto) 62.3, Lymph % (Auto) 28.0, [place] [facility] % (Auto) 8.5, Eos % (Auto) 0.5, Baso % (Auto) 0.5, Absolute Neuts (auto) 3.6, Absolute Lymphs (auto) 1.61, Total Counted Not Reportable 02/22/19 05:31: Sodium 138, Potassium 3.7, Chloride 104, Carbon Dioxide 26.0, Anion Gap 8, BUN 17, Creatinine 0.86, Estim Creat Clear Calc 50.47, Est GFR (MDRD) Af Amer 82, Est GFR (MDRD) Non-Af 68, BUN/Creatinine Ratio 19.8, Glucose 79, Calcium 8.5 Current Medications Acetaminophen (Tylenol) 650 mg PO Q6H PRN PRN PRN Reason: Mild Pain (1-3)/Temp > 100.7 F Last Admin: 02/21/19 22:17 Dose: 650 mg Acetylcysteine (Mucomyst) 600 mg PO BID [facility] Stop: 02/23/19 10:01 Last Admin: 02/21/19 22:33 Dose: 600 mg Albuterol Sulfate (Ventolin Aerosols) 2.5 mg INHALATION Q6H.RT [facility] Last Admin: 02/22/19 06:54 Dose: 2.5 mg Amlodipine Besylate (Norvasc) 2.5 mg PO DAILY [facility] Last Admin: 02/21/19 09:56 Dose: 2.5 mg Aspirin (Aspirin, Baby) 81 mg PO DAILY@0800 [facility] Last Admin: 02/21/19 07:46 Dose: 81 mg Atorvastatin Calcium (Lipitor) 20 mg PO QHS [facility] Last Admin: 02/21/19 22:16 Dose: 20 mg Calcium Carbonate (Tums) 1,000 mg PO Q4H PRN PRN PRN Reason: DYSPEPSIA Last Admin: 02/19/19 15:41 Dose: 1,000 mg Calcium/Vitamin D (Os-Master 500mg + D) 1 tablet PO QHS [facility] Last Admin: 02/21/19 22:34 Dose: 1 tablet Enoxaparin Sodium (Lovenox) 40 mg SC DAILY@1000 [facility] Last Admin: 02/21/19 09:56 Dose: 40 mg Guaifenesin (Mucinex) 600 mg PO BID [facility] Last Admin: 02/21/19 22:28 Dose: 600 mg Sodium Chloride () 250 mls @ 15 mls/hr IV .[id number] PRN PRN Reason: SALINE FLUSH Last Admin: 02/18/19 20:13 Dose: 15 mls/hr Cefazolin Sodium 2 gm/ Sodium (Chloride) 110 mls @ 150 mls/hr IV Q8 [facility] Last Admin: 02/22/19 06:12 Dose: 150 mls/hr Aztreonam 2 gm/ Sodium (Chloride) 100 mls @ 150 mls/hr IV Q8 [facility] Last Admin: 02/22/19 05:14 Dose: 150 mls/hr Levofloxacin (Levaquin Iv) 750 mg in 150 mls @ 100 mls/hr IV Q48 [facility] Last Admin: 02/21/19 09:54 Dose: 100 mls/hr Melatonin (Melatonin) 3 mg PO QHS PRN PRN PRN Reason: INSOMNIA Last Admin: 02/21/19 22:17 Dose: 3 mg Multivitamins (Multivitamin) 1 tablet PO QHS [facility] Last Admin: 02/21/19 22:34 Dose: 1 tablet Ondansetron HCl (Zofran) 4 mg IV Q8H PRN PRN PRN Reason: NAUSEA/VOMITING Last Admin: 02/18/19 20:07 Dose: 4 mg Oxycodone HCl (Oxyir) 5 mg PO Q6H PRN PRN PRN Reason: SEVERE PAIN (6-10/10) Paroxetine HCl (Paxil) 20 mg PO QHS [facility] Last Admin: 02/21/19 22:16 Dose: 20 mg Sodium Chloride () 5 - 15 ml IV UD PRN PRN Reason: SALINE FLUSH Last Admin: 02/22/19 05:14 Dose: 10 ml Medical Necessity - Tobacco Use Smoking Status: Former smoker Assessment/Plan All Active Problems Cellulitis of right leg (Acute) The patient is a 78 y/o F w/ PMHx: HTN, HTN, Obesity, Depression and Anxiety, Former Tobacco use who presents to the [facility] ED on 02/17/19 with initial right lower extremity cellulitis, recently treated with doxycycline without improvement. (1) RLE Extremity Cellulitis versus Vasculitis: CRP 15.10, ESR 57; however, was obtained in the setting of at that time unknown #2, PNA. Admission CBC without marked WBC elevation or L shift. Initially treated with IV Ancef, discontinued and transition to IV Levaquin and aztreonam secondary to concurrent pneumonia, ID consulted and following, some concern for vasculitis plan for outpatient follow-up for possible biopsy, initial antibiotic therapies were discontinued given #2, DVT US RLE preliminary wet read negative with final read pending. (2) RUL Community Acquired Pneumonia with Hypoxia: CXR not market findings however CTPA performed with no evidence of PE or dissection with notable diffuse right pulmonary infiltrate and mild left basilar infiltrate. Patient transition from initial antibiotic therapy to IV Levaquin and Aztreonam and as treat him pending ID reevaluation given concerns for possible hospital-acquired component, continue ATC duonebs, PRN albuterol, HOB, IS parameters w/ pending sputum cultures and urine antigens. Bld cx x 2 on 02/17/19 with NGTD, repeat 02/21/19 x 2 pending. Will need oxygenation testing prior to discharge to home. (3) Acute kidney injury: Secondary to acute presentation, #1, #2, medications. 02/19/19 BUN/Cr 19/1.24, hydrated, eventually held secondary to mild hypoxia, repeat 02/22/19 BUN/Cr 17/0.86. Given recent CTPA with [facility] prior patient dosed acetylcysteine and had been given IV fluids. (4) Hyponatremia, suspected hypovolemic: Admission Na 133, decreased to 131, improved w/ IVFs, 02/22/19 Na 138. (5) Chronic Normocytic Anemia: Admission Hgb 11, baseline 9-11 range, 02/22/19 Hgb 9/6, stable. (6) Hypertension: Continue home regimen including Norvasc, recently started Maxide outpatient was held, PRN hydralazine. (7) Hyperlipidemia: Continue home statin regimen. (8) Obesity: Weight loss and lifestyle changes encouraged. (9) Former tobacco use: Encouraged continued tobacco cessation. (10) Depression and Anxiety: Continue home Paxil regimen. (11) DVT prophylaxis: SCDs, Lovenox. Code Visit Inpatient E&M: 08249 Subs Hosp L2
[2019-02-22] MEDS: Enoxaparin 40 MG/0.4 ML Syringe SC (10:10)
[2019-02-22] MEDS: amLODIPine 2.5 MG Tablet PO (10:11)
[2019-02-22] MEDS: guaiFENesin 600 MG Tablet PO ×2 (10:15→20:28)
[2019-02-22] MEDS: Acetylcysteine (Mucomyst Oral) 20% SOLN 600 MG PO ×2 (10:16→20:34)
[2019-02-22] MEDS: Acetaminophen 325 MG Tablet 650 MG PO (18:59)
--- NOTE | 2019-02-22 19:55 | PN.ID_ITS ---
Patient Problems: Active and Suspected Problems Cellulitis of right leg (Acute) Subjective: Fevers resolved after starting steroids, leg improving. Had sudden onset of SOB in AM 02/21. CXR and CTA done. Had some pink sputum. Sx improve with sitting up. Was started on aztreonam/levaquin. No sputum today. - Physical Exam General: Alert, Cooperative, No apparent distress Lungs: Rales - in R side and L base Cardiovascular: Regular rate, Regular Rhythm Abdomen: Soft, Non Tender, Non-Distended Extremities: Edema Skin: Rash Present - fading petechiae on R roberts Vital Signs Temp Pulse Resp BP Pulse Ox 98.6 F 76 18 109/44 L 94 02/22/19 16:32 02/22/19 16:32 02/22/19 16:32 02/22/19 16:32 02/22/19 16:32 Oxygen Flow Rate (L/min) [ 3 AMBULATION with Oxygen] Oxygen Flow Rate (L/min) [ 0 AMBULATING on Room Air] Oxygen Flow Rate (L/min) [At 0 REST on Room Air] Oxygen Flow Rate (L/min) 3 Oxygen Delivery Method Nasal Cannula Weight: 88.9 kg Body Mass Index (BMI) 31.6 Intake and Output for Last 24 Hours 02/20/19 02/21/19 02/22/19 23:59 23:59 23:59 Intake Total 2625.7 / 2625.7 1959 / 1959 1559 / 1559 Output Total 700 / 700 Balance 2625.7 / 2625.7 1259 / 1259 1559 / 1559 Microbiology Past 72 Hours 02/22/19 09:55 Streptococcus pneumoniae Antigen (M - Final Urine, Clean Catch 02/22/19 09:55 Legionella Antigen - Final Urine, Clean Catch 02/17/19 22:37 Blood Culture - Preliminary Blood Culture (Wb) - Left Forearm No growth in 48 hours. 02/17/19 22:28 Blood Culture - Preliminary Blood Culture (Wb) - Anticubital Right No growth in 48 hours. Laboratory Tests Past 24 Hrs 02/22/19 02/22/19 05:31 05:31 WBC 5.7 RBC 3.34 L Hgb 9.6 L Hct 28.6 L MCV 85.6 MCH 28.7 MCHC 33.6 RDW 14.0 RDW Differential 44.2 H Plt Count 153 MPV 10.1 Immature Gran % (Auto) 0.200 Neut % (Auto) 62.3 Lymph % (Auto) 28.0 [place]ck[place] % (Auto) 8.5 Eos % (Auto) 0.5 Baso % (Auto) 0.5 Absolute Neuts (auto) 3.6 Absolute Lymphs (auto) 1.61 Total Counted Not Reportable Sodium 138 Potassium 3.7 Chloride 104 Carbon Dioxide 26.0 Anion Gap 8 BUN 17 Creatinine 0.86 Estim Creat Clear Calc 50.47 Est GFR (MDRD) Af Amer 82 Est GFR (MDRD) Non-Af 68 BUN/Creatinine Ratio 19.8 Glucose 79 Calcium 8.5 Medical Necessity - Tobacco Use Smoking Status: Former smoker Route of nutrition/ use of supplements: [] Nutritional Intake: [] IV Site: [] [place] Catheter: [] - Assessment/Plan Antibiotics: [] Assessment/Plan: [] Active and Suspected Problems Cellulitis of right leg (Acute) Fever with petechial rash on RLE - not consistent with typical cellulitis. Concern for vasculitis, fever and rash much improved with steroids. hypoxia - Given rapid onset, lack of fever or leukocytosis, rales on exam, and CT images, seems more consistent with pulm edema. Will stop aztreonam. Recommend pulm eval. Ok to continue levaquin for now, but overall low suspicion for new HAP/CAP. Will follow, d/w Dr. Anne
[2019-02-22] MEDS: Paroxetine 20 MG Tablet PO (20:28)
[2019-02-22] MEDS: Calcium Carb/Vitamin D 1 TABLET Tablet PO (20:28)
[2019-02-22] MEDS: Multivitamins,Therapeutic Tablet 1 TABLET PO (20:29)
[2019-02-22] MEDS: Atorvastatin Calcium 20 MG Tablet PO (20:29)
[2019-02-23] VITALS (7 sets, daily range): BP systolic 116–131; BP diastolic 43–55; PULSE 62–69; RESP 18; TEMP 36.6–37.4; O2SAT 85–96
[2019-02-23] MEDS: Albuterol 2.5 MG/3 ML VIAL.NEB. INHALATION ×2 (06:50→13:12)
[2019-02-23] MEDS: Aspirin 81 MG TAB.CHEW PO (08:32)
--- NOTE | 2019-02-23 08:53 | CON.PCM_ITS ---
Reason for Consult Date of Consultation: 02/23/19 Reason for Consultation: Questionable pneumonia, hypoxia History of Present Illness: The patient is a 78-year-old female, with a history as outlined below, who initially presented to the emergency department on February 17 with right lower extremity cellulitis and subjective fever. She did report that her lower extremity rash was treated as an outpatient with antibiotics but failed to improve. The patient was initially treated with broad-spectrum IV antibiotics. Infectious diseases was consulted to evaluate the patient. Lower extremity Dopplers were found to be negative. Throughout the patient's hospital course, she was noted to be experiencing shortness of breath and did have a new supplemental oxygen requirement. Plain film chest x-ray was obtained and did reveal diffuse interstitial changes, most pronounced at the right hemithorax. A follow-up CTA chest was then completed on February 21 and revealed no evidence for pulmonary embolism, but did demonstrate diffuse groundglass opacities scattered throughout the right hemithorax along with small basilar pleural effusions. Although the patient was not noted to have an elevated white blood cell count on presentation to the hospital, she did have an elevated peripheral eosinophil co unt to 9.5%. The patient denied a previous history of asthma or sinus related diseases. She denied any recent medication changes. She does have a very remote, limited smoking history. She is currently requiring 2 to 3 L/min of supplemental oxygen to maintain appropriate saturations with exertion. The patient's infectious work-up has been unrevealing to date. Following evaluation by infectious diseases, the patient's antibiotics were discontinued, as her chest radiographic findings were felt to be less likely the consequence of an underlying pulmonary infectious process. In addition, it was felt that her lower extremity rash was likely vasculitic in nature. Of note, the patient had been treated with 2 days of prednisone early on in her hospital admission with subsequent improvement in her lower extremity edema and erythema. However, though steroids were then discontinued. The patient denies a personal or family history of any autoimmune or vasculitic disease processes. Past Medical History Allergies Penicillins Adverse Reaction (Verified 02/17/19 21:13) Hives BEE STINGS Allergy (Uncoded 02/17/19 21:13) Anaphylaxis Home Medications: Ambulatory Orders Medication Instructions Recorded Atorvastatin Calcium [Lipitor] 20 mg PO QHS 12/15/15 Calcium Carbonate/Vitamin D3 1 tab PO DAILY 12/15/15 [Calcium 500+D Tablet Chew] Cholecalciferol (VIT D3) [Vitamin 2,000 unit PO DAILY 12/15/15 D3] Multivitamin [Daily Multiple 1 each PO DAILY 12/15/15 Vitamin] Paroxetine [Paxil] 20 mg PO DAILY 12/15/15 Vitamin E 200 unit PO DAILY 12/15/15 Triamterene 75MG/Hctz 50MG 1 tablet PO DAILY 08/23/16 [Maxzide] Amlodipine Besylate 2.5 mg PO DAILY 02/17/19 Aspirin 81 mg PO DAILY 02/17/19 Guaifenesin [Mucinex] 600 mg PO BID #20 tablet 02/23/19 predniSONE tablet 40 mg PO DAILY@0800 #30 tablet 02/23/19 Smoking Status: Former smoker Review of Systems Constitutional: Reports: Fever, Malaise, Fatigue Eyes: Denies: Blurred vision, Double vision HEENT: Reports: Nasal bleeding Cardiovascular: Denies: Chest Pain, Palpitations Respiratory: Reports: Cough, Shortness of Breath Gastrointestinal: Denies: Abdominal Pain, Nausea, Vomiting Genitourinary: Denies: Dysuria Musculoskeletal: Denies: Joint Pain, Joint Tenderness Skin: Reports: Rash, Skin Changes Neurological: Denies: Numbness, Tingling, Focal weakness Psychiatric: Denies: Anxiety, Depression, Homicidal Ideations, Suicidal Ideations Hematologic/ Lymphatic: Denies: Anemia, Hx of blood clot Patient Problems: Active and Suspected Problems Cellulitis of right leg (Acute) Objective: The patient's most recent lab work, culture data and imaging studies have all been personally reviewed. Strep and urine Legionella antigens were both negative. Blood cultures were unrevealing. Surface echocardiogram revealed normal LV size and function with an ejection fraction of 60%, along with stage II diastolic dysfunction. Pulmonary artery systolic pressure was estimated to be 40 mmHg. - Physical Exam General: Alert, Oriented x3, Cooperative, No apparent distress HEENT: Atraumatic, PERRLA, Normocephalic Oral: No Gingival or Mucosal Lesions/ Ulcerations Neck: Supple, No Nodes, Trachea Midline Lungs: - - Rales present and right hemithorax and left base. Cardiovascular: Regular rate, Regular Rhythm, Normal S1, Normal S2, No murmurs Abdomen: Bowel Sounds Present, Soft, Non Tender, Obese Extremities: No clubbing, No cyanosis, Edema Skin: - - Lower extremity petechial rash Musculoskeletal: No Muscle Wasting Lymphatic: No Cervical, Supraclavicular, or Inguinal Adenopathy Neurological: Cranial nerves II-XII grossly intact, Neuro grossly intact Psych/Mental Status: Alert and oriented to time, place, person, mood and affect Vital Signs Temp Pulse Resp BP Pulse Ox 99.3 F H 67 18 116/51 L 95 02/23/19 03:42 02/23/19 06:50 02/23/19 06:50 02/23/19 03:42 02/23/19 06:50 Oxygen Flow Rate (L/min) [ 3 AMBULATION with Oxygen] Oxygen Flow Rate (L/min) [ 0 AMBULATING on Room Air] Oxygen Flow Rate (L/min) [At 0 REST on Room Air] Oxygen Flow Rate (L/min) 3 Oxygen Delivery Method Nasal Cannula Weight: 195 lb 15.855 oz Body Mass Index (BMI) 31.6 Intake and Output for Last 24 Hours 02/21/19 02/22/19 02/23/19 23:59 23:59 23:59 Intake Total 1959 / 1959 1559 / 1559 550 / 550 Output Total 700 / 700 Balance 1259 / 1259 1559 / 1559 550 / 550 Microbiology Past 72 Hours 02/21/19 10:00 Blood Culture - Preliminary Blood Culture (Wb) - Right Wrist No growth in 48 hours. 02/21/19 10:00 Blood Culture - Preliminary Blood Culture (Wb) - Left Wrist No growth in 48 hours. 02/17/19 22:37 Blood Culture - Final Blood Culture (Wb) - Left Forearm No growth in 5 days. 02/17/19 22:28 Blood Culture - Final Blood Culture (Wb) - Anticubital Right No growth in 5 days. 02/22/19 09:55 Streptococcus pneumoniae Antigen (M - Final Urine, Clean Catch 02/22/19 09:55 Legionella Antigen - Final Urine, Clean Catch Labs (Last 48 Hours) 02/21/19 02/21/19 02/21/19 06:02 09:18 10:00 WBC RBC Hgb Hct MCV MCH MCHC RDW RDW Differential Plt Count MPV Immature Gran % (Auto) Neut % (Auto) Lymph % (Auto) Assumption % (Auto) Eos % (Auto) Baso % (Auto) Absolute Neuts (auto) Absolute Lymphs (auto) Total Counted D-Dimer Quant (PE/DVT) 2.21 H* Sodium Potassium Chloride Carbon Dioxide Anion Gap BUN Creatinine Estim Creat Clear Calc Est GFR (MDRD) Af Amer Est GFR (MDRD) Non-Af BUN/Creatinine Ratio Glucose Calcium Troponin I < 0.015 B-Natriuretic Peptide 434.5 H 02/22/19 02/22/19 05:31 05:31 WBC 5.7 RBC 3.34 L Hgb 9.6 L Hct 28.6 L MCV 85.6 MCH 28.7 MCHC 33.6 RDW 14.0 RDW Differential 44.2 H Plt Count 153 MPV 10.1 Immature Gran % (Auto) 0.200 Neut % (Auto) 62.3 Lymph % (Auto) 28.0 Assumption % (Auto) 8.5 Eos % (Auto) 0.5 Baso % (Auto) 0.5 Absolute Neuts (auto) 3.6 Absolute Lymphs (auto) 1.61 Total Counted Not Reportable D-Dimer Quant (PE/DVT) Sodium 138 Potassium 3.7 Chloride 104 Carbon Dioxide 26.0 Anion Gap 8 BUN 17 Creatinine 0.86 Estim Creat Clear Calc 50.47 Est GFR (MDRD) Af Amer 82 Est GFR (MDRD) Non-Af 68 BUN/Creatinine Ratio 19.8 Glucose 79 Calcium 8.5 Troponin I B-Natriuretic Peptide Microbiology 02/21/19 10:00 Blood Culture (Wb) - Right Wrist Blood Culture - Preliminary No growth in 48 hours. 02/21/19 10:00 Blood Culture (Wb) - Left Wrist Blood Culture - Preliminary No growth in 48 hours. 02/17/19 22:37 Blood Culture (Wb) - Left Forearm Blood Culture - Final No growth in 5 days. 02/17/19 22:28 Blood Culture (Wb) - Anticubital Right Blood Culture - Final No growth in 5 days. 02/22/19 09:55 Urine, Clean Catch Streptococcus pneumoniae Antigen (M - Final 02/22/19 09:55 Urine, Clean Catch Legionella Antigen - Final Clinical Impression(s) from Imaging Studies Chest X-Ray 02/21/19 08:33 IMPRESSION: Bilateral diffuse interstitial prominence. There is a focal right upper lobe infiltrate. Electronically Signed: Mich Gorman DO at 8:47 EDT Tel [phone], Service support , Chest CTA 02/21/19 09:40 IMPRESSION: No demonstrated pulmonary embolism or arterial dissection. Diffuse right pulmonary infiltrates. Mild left basilar infiltrate. Mild effusions at the lung bases. Hiatal hernia. Possible mild esophageal wall thickening. Electronically Signed: Mich GormanDO at 12:40 EDT Tel [phone], Service support , Assessment/Plan All Active Problems Cellulitis of right leg (Acute) RECOMMENDATIONS: 1. Wean supplemental oxygen to maintain saturations at or above 90%. 2. Encourage incentive spirometer use and mobilize patient as tolerated. 3. Restart prednisone 40 mg daily, with plans to continue until follow-up in the pulmonary medicine clinic. 4. Check ANCA, LANI with reflex, complement levels, and hepatic function profile. 5. Follow-up with dermatology for lower extremity biopsy. IMPRESSIONS: 1. Acute hypoxic respiratory insufficiency/abnormal chest CT with diffuse groundglass changes noted throughout right hemithorax The findings noted on the patient's chest CT are very nonspecific in nature. Given the patient's elevated peripheral eosinophil count noted on presentation coupled with her subjective response to the use of systemic corticosteroids, it is certainly plausible that she could have an underlying vasculitic process or autoimmune disorder. Clinical considerations could include eosinophilic granulomatosis with polyangiitis, acute eosinophilic pneumonia, cryptogenic organizing pneumonia, diffuse alveolar hemorrhage, and granulomatosis with polyangiitis, just to name a few. In addition, given the patient's lower extremity rash, there was initial concern for possible DRESS, although no precipitating medication could be identified. At this time, we will plan to check ANCA, LANI with reflex, complement levels, and hepatic function profile. Given the patient's favorable subjective response to the use of corticosteroids, recommend restarting prednisone 40 mg daily, given that infectious etiologies are not felt to be likely, based upon infectious diseases evaluation. I would plan to continue the patient on prednisone until she is reevaluated in the pulmonary medicine clinic. She will likely require follow-up chest imaging as well. She will require a walking oximetry study prior to consideration for discharge from the hospital. She is currently scheduled to follow-up in the pulmonary medicine clinic on Friday the at 9:15 AM. 2. Lower extremity rash with concerns for possible underlying vasculitis As noted above, the patient will be started once again on prednisone. She is going to follow-up with Dr. Cabrera of dermatology on February 24 for biopsy. 3. Anemia/hypertension/hyperlipidemia/obesity/depression/anxiety Complicates care, management, recovery and prognosis. Continue home medications as indicated. This note was generated with Gope[employer]ation software. It may contain incorrect words, spelling, and punctuation that were not noted in checking the note before signing. Code Visit Inpatient E&M: 83724 Init Hosp L3
[2019-02-23] MEDS: Enoxaparin 40 MG/0.4 ML Syringe SC (09:37)
[2019-02-23] MEDS: amLODIPine 2.5 MG Tablet PO (09:38)
[2019-02-23] MEDS: guaiFENesin 600 MG Tablet PO (09:38)
[2019-02-23] MEDS: Acetylcysteine (Mucomyst Oral) 20% SOLN 600 MG PO (09:41)
[2019-02-23] MEDS: levoFLOXacin IV 750 MG/150 ML BAG 100 MG IV (09:42)
[2019-02-23 10:12] LABS: CPK Total, Creatine Kinase 28 U/L (26-192)
--- NOTE | 2019-02-23 11:01 | PCM.PN.ID ---
Patient Problems: Active and Suspected Problems Cellulitis of right leg (Acute) Subjective: Mild SOB, still some small amount pinkish sputum, no fever. - Physical Exam General: Alert, Cooperative, No apparent distress Lungs: Rales Cardiovascular: Regular rate, Regular Rhythm Abdomen: Soft, Non Tender, Non-Distended Extremities: Edema Skin: Rash Present - fading petechiae Vital Signs Temp Pulse Resp BP Pulse Ox 97.8 F 65 18 119/43 L 96 02/23/19 09:43 02/23/19 09:43 02/23/19 09:43 02/23/19 09:43 02/23/19 09:43 Oxygen Flow Rate (L/min) [ 3 AMBULATION with Oxygen] Oxygen Flow Rate (L/min) [ 0 AMBULATING on Room Air] Oxygen Flow Rate (L/min) [At 0 REST on Room Air] Oxygen Flow Rate (L/min) 2 Oxygen Delivery Method Nasal Cannula Weight: 88.9 kg Body Mass Index (BMI) 31.6 Intake and Output for Last 24 Hours 02/21/19 02/22/19 02/23/19 23:59 23:59 23:59 Intake Total 1959 / 1959 1559 / 1559 550 / 550 Output Total 700 / 700 Balance 1259 / 1259 1559 / 1559 550 / 550 Microbiology Past 72 Hours 02/21/19 10:00 Blood Culture - Preliminary Blood Culture (Wb) - Right Wrist No growth in 48 hours. 02/21/19 10:00 Blood Culture - Preliminary Blood Culture (Wb) - Left Wrist No growth in 48 hours. 02/17/19 22:37 Blood Culture - Final Blood Culture (Wb) - Left Forearm No growth in 5 days. 02/17/19 22:28 Blood Culture - Final Blood Culture (Wb) - Anticubital Right No growth in 5 days. 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 Antibody Pending Scl-70 Scleroderma Ab Pending Double Strand DNA Ab Pending Centromere B Antibody Pending Glomerular Base Memb Ab Complement C3 Complement C4 Tot Complement (CH50) 02/23/19 09:35 Total Creatine Kinase LANI Screen c-ANCA Antibody p-ANCA Antibody SYLVIA-1 Antibody SS-A/Ro IgG Antibody SS-B/La IgG Antibody Sm (Baca) Antibody THERMAL 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 Concern for vasculitis, fever and rash much improved with steroids. hypoxia - Given rapid onset, lack of fever or leukocytosis, rales on exam, and CT images, seems more consistent with pulm edema. Pulm to see. Will stop levaquin now pending their eval. Will follow
--- NOTE | 2019-02-23 11:16 | PCM.DC ---
- Discharge Diagnoses Current Active Problems: Current Active and Chronic Problems (1) Suspected RLE Extremity Vasculitis, felt Cellulitis ruled out (2) Hypoxia with Unspecified Ground glass changes of the Right Lung, Suspected Underlying Pulmonary Disease, Ruled Out RUL Community Acquired Pneumonia (3) Acute kidney injury, Secondary to acute presentation, #1, #2, medications (4) Hyponatremia, suspected hypovolemic (5) Chronic Normocytic Anemia (6) Hypertension (7) Hyperlipidemia (8) Obesity (9) Former tobacco use (10) Depression and Anxiety You will use the following diet at home:: Cardiac Your food should be the consistency of: Regular Your liquids should be the consistency of: Regular/Thin Discharge Activity: - - Please be cautious with activities given oxygen needs until cleared per Pulmonary for advancement. Weight Bearing Status: Weight bearing as tolerated Call your doctor if you observe: Fever of 101 or Higher, Inability to urinate, Inability to have a bowel movement, Shortness of breath, Dizziness, Fainting spells, Chest pain, Uncontrolled pain Instructions: Traveling with Oxygen, Using Oxygen Safely, Using Oxygen at Home Additional Instructions: Please continue the daily steroids and oxygen supplementation until re-assessment with Dr. Lieberman and appropriate wean initiated as well as review of recent pending labs resulted. Please have repeat basic metabolic panel obtained with your primary care physician given recent acute kidney injury with now restart on prior home diuretic regimen to assure remains appropriate. Pending Tests on Discharge: Dr. Lieberman, Pulmonary medicine has ordered several labs i ncluding LANI, ANCA, Anti-glomerular basement membrane, complement C3, C4 and CH50 which will be pending until your re-evaluation with him. Allergies/Adverse Reactions: Allergies Penicillins Adverse Reaction (Verified 02/17/19 21:13) Hives BEE STINGS Allergy (Uncoded 02/17/19 21:13) Anaphylaxis Medications to take at Discharge Atorvastatin Calcium [Lipitor] 20 mg PO QHS 12/15/15 Calcium Carbonate/Vitamin D3 [Calcium 500+D Tablet Chew] 1 tab PO DAILY 12/15/15 Cholecalciferol (VIT D3) [Vitamin D3] 2,000 unit PO DAILY 12/15/15 Multivitamin [Daily Multiple Vitamin] 1 each PO DAILY 12/15/15 Paroxetine [Paxil] 20 mg PO DAILY 12/15/15 Vitamin E 200 unit PO DAILY 12/15/15 Triamterene 75MG/Hctz 50MG [Maxzide] 1 tablet PO DAILY 08/23/16 Amlodipine Besylate 2.5 mg PO DAILY 02/17/19 Aspirin 81 mg PO DAILY 02/17/19 Guaifenesin [Mucinex] 600 mg PO BID #20 tablet 02/23/19 predniSONE tablet 40 mg PO DAILY@0800 #30 tablet 02/23/19 The following prescriptions were given: predniSONE tablet 40 mg PO DAILY@0800 #30 tablet Guaifenesin [Mucinex] 600 mg PO BID #20 tablet Primary Care Physician: Topher Hernandez MD [Primary Care Provider] - Please follow up with your Primary Care Physician in: Follow-up within 3-5 days. Test Results: Test results from this visit will be discussed in further detail at your follow-up appointment, if applicable. Please Follow Up With: Jose Carlos Lieberman DO When: Follow-up FridayMarch 05 9:15 am. Please Follow Up With: Claudio Cabrera MD When: 02/24/19 2:00 pm to fill paperwork, visit at 2:30 pm for biopsy/assessment. Proposed Discharge Date: 02/23/19
[2019-02-23 12:02] LABS: AST(SGOT) 22 U/L (15-37); Alanine Aminotransfer ALT/SGPT 15 U/L (13-56); Albumin, Serum 2.3 g/dL (3.2-5.0); Alkaline Phosphatase 44 U/L (45-117); Bilirubin, Direct 0.18 mg/dL (0.00-0.30); Globulin 4.6 g/dL (2.2-4.2); Protein, Total 6.9 g/dL (6.4-8.2)
--- NOTE | 2019-02-23 12:07 | DS.PCM_ITS ---
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, Ruled Out Cellulitis (2) Hypoxia with Unspecified Ground glass changes of the Right Lung, Suspected Underlying Pulmonary Disease, Ruled Out RUL Community Acquired Pneumonia (3) Acute kidney injury, Secondary to acute presentation, #1, #2, medications (4) Hyponatremia, suspected hypovolemic (5) Chronic Normocytic Anemia (6) Hypertension (7) Hyperlipidemia (8) Obesity (9) Former tobacco use (10) Depression and Anxiety - Secondary Discharge Diagnosis (1) Chronic Normocytic Anemia (2) Hypertension (3) Hyperlipidemia (4) Obesity (5) Former tobacco use (6) Depression and Anxiety Hospital Course and Treatment Dr. Lieberman Pulmonary Dr. Sheriff ID Operations: None Procedures: 2-D Echocardiogram, EKG Summary of Care Provided: The patient is a 78 y/o F w/ PMHx: HTN, HTN, Obesity, Depression and Anxiety, Former Tobacco use who presented to the [facility] ED on 02/17/19 with initial right lower extremity cellulitis, recently treated with doxycycline without improvement. Evaluation w/ CRP 15.10, ESR 57; however, was obtained in the setting of at that time unknown possible PNA. Admission CBC without marked WBC elevation or L shift and remained similar. Patient was initially treated with IV Ancef, discontinued and transitioned transiently to IV Levaquin and aztreonam secondary to initially suspected concurrent pneumonia following onset hypoxia and CTPA obtained w/ noted diffuse right pulmonary infiltrates and a mild left basilar infiltrate with mild effusions at the lung bases with hiatal hernia and possible mild esophageal wall thickening. ID consulted and followed and per their evaluation more concerned for RLE vasculitis therefore initially steroids had been started with patient improvement to the RLE; however, these were held transiently with evaluation of possible pneumonia. In case of possible overl oad/failure as etiology obtained echocardiogram resulted with normal LV size, normal LV systolic function, EF 60%, stage II diastolic dysfunction, mild TVI. Pulmonary consulted given atypical presentation and per ID evaluation felt pulmonary appearance less suspicious for PNA. Evaluation per pulmonary performed, felt less likely PNA and also not consistent with failure, decision to restart prednisone 40 mg daily, continue oxygenation with repeat supplementation testing to be performed prior to discharge (02/23/19 oxygenation with 76% on RA ambulating, 92% on 3L with ambulating, 88% on RA) with planned follow-up in 1 week with pulmonary with pending LANI, ANCA, Anti-glomerular basement membrane, complement C3, C4 and CH50 labs and planned follow-up on 02/24/19 for biopsy of the RLE per Dr. Cabrera, Dermatology as well as PCP to review hospitalization and have repeat BMP given ADRIA during inpatient with improvement to baseline. DAY OF DISCHARGE PROGRESS NOTE: Subjective: Patient without acute event overnight per self and nursing report. Patient with some occasional coughing and some increased sputum but very minimal. Patient denies any worsening dyspnea or worsened right lower extremity discomfort. Patient denies fever, chills, nausea, emesis, abdominal pain, chest pain. Patient agreeable to discharge to home on planned continued oxygenation. Patient will be discharged with follow-up with primary care physician within 3-5 days in addition to Pulmonary medicine ~ 1 week and Dermatology on 02/24/19 for biopsy. Objective: T 97.8, heart rate 65, BP 119/43, respiratory rate 18, 96% on 2 L nasal cannula. Physical Examination: General: awake, alert, oriented x 3 and cooperative, seated upright in in the bedside chair, no acute distress. Skin: normal color, turgor, no icterus, cyanosis except right lower extremity rash, nonblanching, vasculitis suspected with also similar staged changes noted to left distal roberts region and both improving. HEENT: AT/NC, EOMI, PERRLA, MMM. Lungs: CTA bilaterally, diminished bases, right greater than left, still mild crackles noted, no rhonchi, wheezing or rales. Heart: Regular rate and rhythm; no gallop, rub audible. Abdomen: soft, obese, NTTP, ND, normal BS. Extremities: no cyanosis, clubbing, see skin. Neurological: patient awake, alert, oriented x 3; cognitive function intact; pupils equally reactive to light and accomodation; cranial nerves II-XII grossly normal, moving all 4 extremities, no focal deficits, strength improved, mildly to moderately globally decreased. Psychiatric: affect appears normal, no acute evidence of depressive or anxiety feelings. Assessment and Plan: Please see hospital summary above. Patient Problems: Active and Suspected Problems Cellulitis of right leg (Acute) - Physical Exam Vital Signs Temp Pulse Resp BP Pulse Ox 97.8 F 65 18 119/43 L 96 02/23/19 09:43 02/23/19 09:43 02/23/19 09:43 02/23/19 09:43 02/23/19 09:43 Oxygen Flow Rate (L/min) [ 3 AMBULATION with Oxygen] Oxygen Flow Rate (L/min) [ 0 AMBULATING on Room Air] Oxygen Flow Rate (L/min) [At 0 REST on Room Air] Oxygen Flow Rate (L/min) 2 Oxygen Delivery Method Nasal Cannula Weight: 195 lb 15.855 oz Body Mass Index (BMI) 31.6 Intake and Output for Last 24 Hours 02/21/19 02/22/19 02/23/19 23:59 23:59 23:59 Intake Total 1959 / 1959 1559 / 1559 550 / 550 Output Total 700 / 700 Balance 1259 / 1259 1559 / 1559 550 / 550 Microbiology Past 72 Hours 02/21/19 10:00 Blood Culture - Preliminary Blood Culture (Wb) - Right Wrist No growth in 48 hours. 02/21/19 10:00 Blood Culture - Preliminary Blood Culture (Wb) - Left Wrist No growth in 48 hours. 02/17/19 22:37 Blood Culture - Final Blood Culture (Wb) - Left Forearm No growth in 5 days. 02/17/19 22:28 Blood Culture - Final Blood Culture (Wb) - Anticubital Right No growth in 5 days. 02/22/19 09:55 Streptococcus pneumoniae Antigen (M - Final Urine, Clean Catch 02/22/19 09:55 Legionella Antigen - Final Urine, Clean Catch Laboratory Tests Past 24 Hrs 02/23/19 02/23/19 02/23/19 09:35 09:35 09:35 Total Bilirubin Direct Bilirubin AST ALT Alkaline Phosphatase Total Creatine Kinase 28 Total Protein Albumin LANI Screen Pending c-ANCA Antibody Pending p-ANCA Antibody Pending SYLVIA-1 Antibody Pending SS-A/Ro IgG Antibody Pending SS-B/La IgG Antibody Pending Sm (Baca) Antibody Pending THERMOSPRAY OPERATOR Antibody Pending Scl-70 Scleroderma Ab Pending Double Strand DNA Ab Pending Centromere B Antibody Pending Glomerular Base Memb Ab Complement C3 Complement C4 Tot Complement (CH50) 02/23/19 02/23/19 09:35 09:35 Total Bilirubin Pending Direct Bilirubin Pending AST Pending ALT Pending Alkaline Phosphatase Pending Total Creatine Kinase Total Protein Pending Albumin Pending LANI Screen c-ANCA Antibody p-ANCA Antibody SYLVIA-1 Antibody SS-A/Ro IgG Antibody SS-B/La IgG Antibody Sm (Baca) Antibody THERMOSPRAY OPERATOR Antibody Scl-70 Scleroderma Ab Double Strand DNA Ab Centromere B Antibody Glomerular Base Memb Ab Pending Complement C3 Pending Complement C4 Pending Tot Complement (CH50) Pending Discharge Activity: - - Please be cautious with activities given oxygen needs until cleared per Pulmonary for advancement. Weight Bearing Status: Weight bearing as tolerated Call your doctor if you observe: Fever of 101 or Higher, Inability to urinate, Inability to have a bowel movement, Shortness of breath, Dizziness, Fainting spells, Chest pain, Uncontrolled pain Home Medications: Medications to take at Discharge Atorvastatin Calcium [Lipitor] 20 mg PO QHS 12/15/15 Calcium Carbonate/Vitamin D3 [Calcium 500+D Tablet Chew] 1 tab PO DAILY 12/15/15 Cholecalciferol (VIT D3) [Vitamin D3] 2,000 unit PO DAILY 12/15/15 Multivitamin [Daily Multiple Vitamin] 1 each PO DAILY 12/15/15 Paroxetine [Paxil] 20 mg PO DAILY 12/15/15 Vitamin E 200 unit PO DAILY 12/15/15 Triamterene 75MG/Hctz 50MG [Maxzide] 1 tablet PO DAILY 08/23/16 Amlodipine Besylate 2.5 mg PO DAILY 02/17/19 Aspirin 81 mg PO DAILY 02/17/19 Guaifenesin [Mucinex] 600 mg PO BID #20 tablet 02/23/19 predniSONE tablet 40 mg PO DAILY@0800 #30 tablet 02/23/19 Following Prescrptions Were Given to Patient: predniSONE tablet 40 mg PO DAILY@0800 #30 tablet Guaifenesin [Mucinex] 600 mg PO BID #20 tablet Primary Care Physician: Topher Hernandez MD [Primary Care Provider] - Please follow up with your Primary Care Physician in: Follow-up within 3-5 days. Please Follow Up With: Jose Carlos Lieberman DO When: Follow-up FridayMarch 05 9:15 am. Please Follow Up With: Claudio Cabrera MD When: 02/24/19 2:00 pm to fill paperwork, visit at 2:30 pm for biopsy/assessment. Patient Instructions: Traveling with Oxygen, Using Oxygen Safely, Using Oxygen at Home Disposition: Home Minutes spent on discharge:: 35 Patient Condition:: Fair Medical Necessity - Tobacco Use Smoking Status: Former smoker Meaningful Use Info Meaningful Use Diagnoses (Choose all that apply): None applicable Code Visit Inpatient E&M: 61865 Disch Hosp
--- NOTE | 2019-02-23 12:25 | CASEMGMT ---
SHANTEL CORONADO received update that patient will require home oxygen at discharge. Script received for home oxygen. SHANTEL CORONADO in to discuss preferred DME companies. Patient would like [employer], which is the same as her . Referral sent to [facility] [place] for home oxygen setup and arranged for portable tank to be delivered to patient's room prior to discharge. SHANTEL CORONADO updated nurse regarding oxygen setup.
[2019-02-23] MEDS: Furosemide 20 MG/2 ML VIAL IV (13:49)
[2019-02-23] MEDS: predniSONE 20 MG Tablet 40 MG PO (13:51)
[2019-02-24 16:07] LABS: Cytoplasmic Ab (C-ANCA) <1:20 titer (Neg:<1:20)
[2019-02-25 12:07] LABS: Complement C3 130 mg/dL (82-167)
[2019-02-25 15:19] LABS: Anti-Glomerular Basement Memb 14 units (0-20); Complement CH50 > 60 U/mL (>41)
[2019-02-25 15:47] LABS: ANTINUCLEAR ANTIBODIES DIRECT Negative (Negative)
[2019-02-25 15:48] LABS: Perinuclear Ab (P-ANCA) <1:20 titer (Neg:<1:20)
== END 2019-02-23 16:15 | disposition home or self-care (01) | DRG 546 ==
LOC: ED 22:15 → MS3 23:28
PROVIDERS: Hospitalist; Internal Medicine; Internal Medicine Critical Care Medicine; Admitting Provider Hospitalist; Emergency Provider Emergency Medicine; Family Provider Internal Medicine; PCP Internal Medicine; Referring Provider Hospitalist; Visit Provider Family Medicine
DX: I77.6 Arteritis, unspecified (principal); N17.9 Acute kidney failure, unspecified; E87.1 Hypo-osmolality and hyponatremia; R09.02 Hypoxemia; R06.89 Other abnormalities of breathing; F32.9 Major depressive disorder, single episode, unspecified; E78.5 Hyperlipidemia, unspecified; I12.9 Hypertensive chronic kidney disease with stage 1 through stage 4 chronic kidney disease, or unspecified chronic kidney disease; N18.3 Chronic kidney disease, stage 3 (moderate); Z79.82 Long term (current) use of aspirin; Z79.899 Other long term (current) drug therapy; Z87.891 Personal history of nicotine dependence; E66.9 Obesity, unspecified; Z68.30 Body mass index [BMI] 30.0-30.9, adult; D64.9 Anemia, unspecified; F41.9 Anxiety disorder, unspecified
CPT/HCPCS: 36415; 71045; 71275; 80048; 80076; 82550; 83520; 83880; 84484; 85025; 85379; 85652; 86038; 86140; 86160; 86162; 86225; 86235; 86256; 87040; 87449; 93005; 93306; 93971; 94640; 94667; 94668; 97110; 97161; 97166; 97530; 97535; 97802; 99281; J7030; J7040; J7050; Q9967; A4216; J1940; J2405

== ENCOUNTER → 2019-04-06 | Outpatient (CLI) | payer MEDICARE, SELFPAY ==
[2019-03-05 08:58] VITALS: BMI 30.3
== END | disposition home or self-care (01) ==
LOC: SL 20:19
PROVIDERS: Family Provider Internal Medicine; PCP Internal Medicine; Referring Provider Internal Medicine Critical Care Medicine; Visit Provider Internal Medicine Critical Care Medicine
DX: G47.33 Obstructive sleep apnea (adult) (pediatric) (principal)
CPT/HCPCS: 95810

== ENCOUNTER → 2019-05-10 | Outpatient (CLI) | payer MEDICARE, SELFPAY ==
[2019-03-05 08:58] VITALS: BMI 30.3
== END | disposition home or self-care (01) ==
LOC: SL 20:07
PROVIDERS: Family Provider Internal Medicine; PCP Internal Medicine; Referring Provider Nurse Practitioner Acute Care; Visit Provider Nurse Practitioner Acute Care
DX: G47.33 Obstructive sleep apnea (adult) (pediatric) (principal)
CPT/HCPCS: 95811

== ENCOUNTER → 2019-05-14 13:04 | Outpatient (CLI) | payer MEDICARE, SELFPAY ==
[2019-03-05 08:58] VITALS: BMI 30.3
--- NOTE | 2019-05-14 13:06 | CT_ITS ---
STUDY: CT CHEST WITHOUT CONTRAST REASON FOR EXAM: Female, 78 years old. Follow-up abnormal infiltrates from February 21, 2019 RADIATION DOSAGE (If Supplied By Facility): CTDIvol = ( 19.03 ) mGy, DLP = ( 560.15 ) mGycm TECHNIQUE: Transaxial imaging was performed without the administration of intravenous contrast material. Multiplanar coronal and sagittal images were reformatted. Individualized dose optimization techniques were used for this CT. COMPARISON: Prior chest CT exam of February 21, 2019 FINDINGS: All pulmonary infiltrates and septal thickening has resolved since the prior examination. There continues to be subpleural interstitial, probably fibrotic changes bilaterally more notably in the dependent lung bases, left greater than right likely to be chronic in nature. Pleural effusion has resolved. Normal heart and pericardium. Extensive left coronary calcifications. Shotty subcentimeter mediastinal lymph nodes. Normal hilar regions. Normal unenhanced pulmonary arteries. There is atherosclerotic calcification of the aortic arch with tortuosity and elongation of the aortic arch and descending thoracic aorta. There are multi-level degenerative changes of the thoracic spine. Moderate size hiatal hernia. CT/Chest without Contrast IMPRESSION: Acute infiltrates/edema have essentially resolved from the prior exam as well as the bilateral pleural effusions. Interstitial changes which persist that are primarily subpleural are likely chronic in nature. Shotty subcentimeter mediastinal lymph nodes. Normal cardiac size without pericardial effusion. Extensive left coronary calcifications. Atherosclerotic changes of the thoracic aorta. Moderate size hiatal hernia. Electronically Signed: Stephany Stover MD at 23:42 EDT , Service support ,
== END ==
PROVIDERS: Family Provider Internal Medicine; PCP Internal Medicine; Referring Provider Internal Medicine Critical Care Medicine; Visit Provider Internal Medicine Critical Care Medicine
DX: R93.89 Abnormal findings on diagnostic imaging of other specified body structures (principal)
CPT/HCPCS: 71250

== ENCOUNTER → 2019-05-20 | Outpatient (CLI) | payer MEDICARE, SELFPAY ==
[2019-03-05 08:58] VITALS: BMI 30.3
[2019-05-20 15:48] LABS: Absolute Lymphocyte Count 1.92 X10^3/uL (0.83-4.51); Absolute Neutrophil Count 3.8 X10^3/uL (2.0-7.7); Basophil# 0.03 X10^3/uL; Basophil% 0.5 % (0-1); Eosinophils% 4.6 % (0-5); Hematocrit 36.8 % (37-47); Hemoglobin 12.2 g/dL (12.0-15.0); Lymphocyte # 1.92 X10^3/ul (4.0); Lymphocyte % 29.2 % (19-41); Mean Corp Hgb Conc 33.2 g/dL (32-36); Mean Corpuscular Volume 90.4 fL (81-99); Mean Platelet Vol. 10.6 fl (6.2-12.0); Monocyte# 0.54 X10^3/uL; Monocyte% 8.2 % (0-10); NRBC Flagged by Analyzer 0 % (0-5); Neutrophil # 3.76 X10^3/uL (2.7-7.7); Neutrophil % 57.2 % (47-70); Platelet Count 185 K/mm3 (150-450); RBC Distribution Width CV 14.1 % (11.6-14.6); RBC Distribution Width SD 47.1 fl (35.1-43.9); Red Blood Count 4.07 M/mm3 (4.2-5.4); White Blood Count 6.6 K/mm3 (4.4-11.0)
[2019-05-20 16:19] LABS: Erythrocyte Sedimentation Rate 27 mm/hr (0-30)
[2019-05-20 16:32] LABS: ALB/GLOB Ratio 0.9 RATIO (0.9-2.4); AST(SGOT) 19 U/L (15-37); Alanine Aminotransfer ALT/SGPT 25 U/L (13-56); Albumin, Serum 3.7 g/dL (3.2-5.0); Alkaline Phosphatase 68 U/L (45-117); Anion Gap 5 (5-15); BUN 25 mg/dL (7-18); BUN/Creat Ratio 24.5 RATIO (10-20); CRP < 2.90 mg/L (0.0-3.0); Chloride 102 mmol/L (98-107); Creatinine, Serum 1.02 mg/dL (0.55-1.02); EST Glomerular Filtration Rate 56 mL/min (>60); Est Glom Filt Rate - Afr Amer 67 mL/min (>60); Globulin 4.3 g/dL (2.2-4.2); Glucose 78 mg/dL (74-106); Potassium 3.9 mmol/L (3.5-5.1); Rheumatoid Factor < 10.0 IU/mL (<15); Sodium Level 138 mmol/L (136-145)
[2019-05-21 13:01] LABS: Hepatitis B Surface Antibody Non-Reactive; Hepatitis B Surface Antigen Non-Reactive (Nonreactive); Hepatitis C Antibody Non-Reactive (Nonreactive)
[2019-05-24 16:07] LABS: SJOGREN'S Anti-SS-A test < 0.2 AI (0.0-0.9); SJOGREN'S Anti-SS-B test < 0.2 AI (0.0-0.9)
[2019-05-25 08:36] LABS: CCP IgG Antibodies 63 units (0-19); Hepatitis B Core AB IgM Negative (Negative)
[2019-05-25 08:38] LABS: ANTINUCLEAR ANTIBODIES DIRECT Negative (Negative)
== END | disposition home or self-care (01) ==
LOC: MTLAB 14:20
PROVIDERS: Family Provider Internal Medicine; PCP Internal Medicine; Referring Provider Internal Medicine Rheumatology; Visit Provider Internal Medicine Rheumatology
DX: I10 Essential (primary) hypertension (principal); M18.11 Unilateral primary osteoarthritis of first carpometacarpal joint, right hand; M17.0 Bilateral primary osteoarthritis of knee; M47.892 Other spondylosis, cervical region; M47.897 Other spondylosis, lumbosacral region; E78.5 Hyperlipidemia, unspecified; F32.89 Other specified depressive episodes; I83.90 Asymptomatic varicose veins of unspecified lower extremity
CPT/HCPCS: 36415; 80053; 85025; 85652; 86038; 86140; 86200; 86235; 86431; 86705; 86706; 86803; 87340

== ENCOUNTER → 2019-06-08 14:13 | Outpatient (CLI) | payer MEDICARE, SELFPAY ==
[2019-03-05 08:58] VITALS: BMI 30.3
[2019-06-02 11:14] VITALS: BMI 35.4
== END ==
PROVIDERS: Family Provider Internal Medicine; PCP Internal Medicine; Referring Provider Nurse Practitioner Acute Care; Visit Provider Nurse Practitioner Acute Care
DX: Z46.89 Encounter for fitting and adjustment of other specified devices (principal)

== ENCOUNTER → 2019-08-12 12:26 | Outpatient (CLI) | payer MEDICARE, SELFPAY ==
[2019-07-22 13:12] VITALS: BMI 35.4
== END ==
PROVIDERS: Family Provider Internal Medicine; PCP Internal Medicine; Referring Provider Nurse Practitioner Acute Care; Visit Provider Nurse Practitioner Acute Care
DX: G47.33 Obstructive sleep apnea (adult) (pediatric) (principal)
CPT/HCPCS: 98960; G0463

== ENCOUNTER → 2019-10-13 10:49 | Outpatient (CLI) | payer MEDICARE, SELFPAY ==
[2019-07-22 13:12] VITALS: BMI 35.4
[2019-10-13 12:11] LABS: Absolute Lymphocyte Count 1.42 X10^3/uL (0.83-4.51); Basophil# 0.03 X10^3/uL; Basophil% 0.5 % (0-1); Eosinophil# 0.46 X10^3/uL; Eosinophils% 8.4 % (0-5); Hematocrit 35.1 % (37-47); Hemoglobin 11.5 g/dL (12.0-15.0); Lymphocyte # 1.42 X10^3/ul (4.0); Mean Corp Hgb Conc 32.8 g/dL (32-36); Mean Corpuscular Hgb 29.3 pg (27.0-32.0); Mean Corpuscular Volume 89.5 fL (81-99); Mean Platelet Vol. 10.7 fl (6.2-12.0); Monocyte% 9.2 % (0-10); NRBC Flagged by Analyzer 0 % (0-5); Neutrophil # 3.03 X10^3/uL (2.7-7.7); Neutrophil % 55.5 % (47-70); Platelet Count 201 K/mm3 (150-450); RBC Distribution Width CV 13.1 % (11.6-14.6); RBC Distribution Width SD 42.8 fl (35.1-43.9); Red Blood Count 3.92 M/mm3 (4.2-5.4); White Blood Count 5.5 K/mm3 (4.4-11.0)
[2019-10-13 12:31] LABS: ALB/GLOB Ratio 0.9 RATIO (0.9-2.4); AST(SGOT) 18 U/L (15-37); Alanine Aminotransfer ALT/SGPT 25 U/L (13-56); Albumin, Serum 3.5 g/dL (3.2-5.0); Alkaline Phosphatase 74 U/L (45-117); BUN 20 mg/dL (7-18); BUN/Creat Ratio 19.8 RATIO (10-20); Calcium,Total 8.6 mg/dL (8.5-10.1); Chloride 102 mmol/L (98-107); Creatinine, Serum 1.01 mg/dL (0.55-1.02); EST Glomerular Filtration Rate 56 mL/min (>60); Est Glom Filt Rate - Afr Amer 68 mL/min (>60); Globulin 4.1 g/dL (2.2-4.2); Glucose 80 mg/dL (74-106); Potassium 4.1 mmol/L (3.5-5.1); Protein, Total 7.6 g/dL (6.4-8.2); Sodium Level 137 mmol/L (136-145)
[2019-10-13 12:32] LABS: Anion Gap 5 (5-15)
== END ==
PROVIDERS: Family Provider Internal Medicine; PCP Internal Medicine; Referring Provider Internal Medicine Rheumatology; Visit Provider Internal Medicine Rheumatology
DX: M06.09 Rheumatoid arthritis without rheumatoid factor, multiple sites (principal); M18.11 Unilateral primary osteoarthritis of first carpometacarpal joint, right hand; M17.0 Bilateral primary osteoarthritis of knee; M47.892 Other spondylosis, cervical region; M47.897 Other spondylosis, lumbosacral region; I10 Essential (primary) hypertension; E78.5 Hyperlipidemia, unspecified; F32.89 Other specified depressive episodes; I83.90 Asymptomatic varicose veins of unspecified lower extremity
CPT/HCPCS: 36415; 80053; 85025

== ENCOUNTER → 2019-11-22 | Outpatient (CLI) | payer MEDICARE, SELFPAY ==
[2019-10-27 11:40] VITALS: BMI 36.7
[2019-11-22 12:28] LABS: Absolute Lymphocyte Count 1.56 X10^3/uL (0.83-4.51); Basophil# 0.03 X10^3/uL; Basophil% 0.5 % (0-1); Eosinophil# 0.53 X10^3/uL; Eosinophils% 9.5 % (0-5); Hematocrit 34.5 % (37-47); Hemoglobin 11.4 g/dL (12.0-15.0); Lymphocyte # 1.56 X10^3/ul (4.0); Mean Corpuscular Hgb 29.5 pg (27.0-32.0); Mean Corpuscular Volume 89.4 fL (81-99); Mean Platelet Vol. 10.5 fl (6.2-12.0); NRBC Flagged by Analyzer 0 % (0-5); Neutrophil # 2.95 X10^3/uL (2.7-7.7); Neutrophil % 52.8 % (47-70); Platelet Count 218 K/mm3 (150-450); RBC Distribution Width CV 13.9 % (11.6-14.6); RBC Distribution Width SD 44.9 fl (35.1-43.9); Red Blood Count 3.86 M/mm3 (4.2-5.4); White Blood Count 5.6 K/mm3 (4.4-11.0)
[2019-11-22 13:33] LABS: ALB/GLOB Ratio 0.9 RATIO (0.9-2.4); AST(SGOT) 21 U/L (15-37); Alanine Aminotransfer ALT/SGPT 32 U/L (13-56); Albumin, Serum 3.8 g/dL (3.2-5.0); Alkaline Phosphatase 75 U/L (45-117); Anion Gap 8 (5-15); BUN 23 mg/dL (7-18); BUN/Creat Ratio 21.3 RATIO (10-20); Calcium,Total 9.4 mg/dL (8.5-10.1); Chloride 101 mmol/L (98-107); Creatinine, Serum 1.08 mg/dL (0.55-1.02); EST Glomerular Filtration Rate 52 mL/min (>60); Est Glom Filt Rate - Afr Amer 63 mL/min (>60); Globulin 4.3 g/dL (2.2-4.2); Glucose 79 mg/dL (74-106); Protein, Total 8.1 g/dL (6.4-8.2); Sodium Level 137 mmol/L (136-145)
== END | disposition home or self-care (01) ==
LOC: MTLAB 11:09
PROVIDERS: PCP Internal Medicine; Referring Provider Internal Medicine Rheumatology; Visit Provider Internal Medicine Rheumatology
DX: M06.09 Rheumatoid arthritis without rheumatoid factor, multiple sites (principal); M18.11 Unilateral primary osteoarthritis of first carpometacarpal joint, right hand; M17.0 Bilateral primary osteoarthritis of knee; M47.892 Other spondylosis, cervical region; M47.897 Other spondylosis, lumbosacral region; I10 Essential (primary) hypertension; E78.5 Hyperlipidemia, unspecified; F32.89 Other specified depressive episodes; I83.90 Asymptomatic varicose veins of unspecified lower extremity
CPT/HCPCS: 36415; 80053; 85025

== ENCOUNTER → 2020-02-16 | Outpatient (CLI) | payer MEDICARE, SELFPAY ==
[2019-10-27 11:40] VITALS: BMI 36.7
[2020-02-16 15:25] LABS: Absolute Lymphocyte Count 1.48 X10^3/uL (0.83-4.51); Absolute Neutrophil Count 3.5 X10^3/uL (2.0-7.7); Basophil# 0.05 X10^3/uL; Basophil% 0.9 % (0-1); Eosinophil# 0.38 X10^3/uL; Eosinophils% 6.5 % (0-5); Hematocrit 33.4 % (37-47); Hemoglobin 10.6 g/dL (12.0-15.0); Lymphocyte # 1.48 X10^3/ul (4.0); Lymphocyte % 25.3 % (19-41); Mean Corp Hgb Conc 31.7 g/dL (32-36); Mean Corpuscular Hgb 30.5 pg (27.0-32.0); Mean Platelet Vol. 10.9 fl (6.2-12.0); Monocyte# 0.48 X10^3/uL; Monocyte% 8.2 % (0-10); NRBC Flagged by Analyzer 0 % (0-5); Neutrophil # 3.45 X10^3/uL (2.7-7.7); Neutrophil % 58.8 % (47-70); Platelet Count 216 K/mm3 (150-450); RBC Distribution Width CV 14.3 % (11.6-14.6); RBC Distribution Width SD 49.6 fl (35.1-43.9); Red Blood Count 3.48 M/mm3 (4.2-5.4); White Blood Count 5.9 K/mm3 (4.4-11.0)
[2020-02-16 15:48] LABS: ALB/GLOB Ratio 0.9 RATIO (0.9-2.4); AST(SGOT) 19 U/L (15-37); Alanine Aminotransfer ALT/SGPT 29 U/L (13-56); Albumin, Serum 3.7 g/dL (3.2-5.0); Alkaline Phosphatase 71 U/L (45-117); Anion Gap 8 (5-15); BUN 28 mg/dL (7-18); BUN/Creat Ratio 23.7 RATIO (10-20); Calcium,Total 9.3 mg/dL (8.5-10.1); Chloride 100 mmol/L (98-107); Creatinine, Serum 1.18 mg/dL (0.55-1.02); EST Glomerular Filtration Rate 47 mL/min (>60); Est Glom Filt Rate - Afr Amer 57 mL/min (>60); Glucose 108 mg/dL (74-106); Potassium 3.8 mmol/L (3.5-5.1); Protein, Total 7.7 g/dL (6.4-8.2); Sodium Level 137 mmol/L (136-145)
== END | disposition home or self-care (01) ==
LOC: MTLAB 11:38
PROVIDERS: PCP Internal Medicine; Referring Provider Internal Medicine Rheumatology; Visit Provider Internal Medicine Rheumatology
DX: M06.09 Rheumatoid arthritis without rheumatoid factor, multiple sites (principal); M18.11 Unilateral primary osteoarthritis of first carpometacarpal joint, right hand; M17.0 Bilateral primary osteoarthritis of knee; M47.892 Other spondylosis, cervical region; M47.897 Other spondylosis, lumbosacral region; I10 Essential (primary) hypertension; E78.5 Hyperlipidemia, unspecified; F32.89 Other specified depressive episodes; I83.90 Asymptomatic varicose veins of unspecified lower extremity; Z79.899 Other long term (current) drug therapy
CPT/HCPCS: 36415; 80053; 85025

== ENCOUNTER → 2020-03-16 10:38 | Outpatient (CLI) | payer MEDICARE, SELFPAY ==
[2019-10-27 11:40] VITALS: BMI 36.7
[2020-03-16 12:52] LABS: ALB/GLOB Ratio 0.8 RATIO (0.9-2.4); AST(SGOT) 17 U/L (15-37); Alanine Aminotransfer ALT/SGPT 23 U/L (13-56); Albumin, Serum 3.5 g/dL (3.2-5.0); Alkaline Phosphatase 74 U/L (45-117); Anion Gap 7 (5-15); BUN 20 mg/dL (7-18); BUN/Creat Ratio 20.1 RATIO (10-20); Chloride 107 mmol/L (98-107); EST Glomerular Filtration Rate 57 mL/min (>60); Est Glom Filt Rate - Afr Amer 69 mL/min (>60); Globulin 4.2 g/dL (2.2-4.2); Glucose 105 mg/dL (74-106); Potassium 3.9 mmol/L (3.5-5.1); Protein, Total 7.7 g/dL (6.4-8.2); Sodium Level 141 mmol/L (136-145)
== END ==
PROVIDERS: PCP Internal Medicine; Referring Provider Internal Medicine Rheumatology; Visit Provider Internal Medicine Rheumatology
DX: M06.09 Rheumatoid arthritis without rheumatoid factor, multiple sites (principal); M18.11 Unilateral primary osteoarthritis of first carpometacarpal joint, right hand; M17.0 Bilateral primary osteoarthritis of knee; M47.892 Other spondylosis, cervical region; M47.897 Other spondylosis, lumbosacral region; I10 Essential (primary) hypertension; E78.5 Hyperlipidemia, unspecified; F32.89 Other specified depressive episodes; I83.90 Asymptomatic varicose veins of unspecified lower extremity; Z79.899 Other long term (current) drug therapy
CPT/HCPCS: 36415; 80053

== ENCOUNTER → 2020-05-12 12:23 | Outpatient (CLI) | payer MEDICARE, SELFPAY ==
[2019-10-27 11:40] VITALS: BMI 36.7
[2020-05-12 15:06] LABS: Absolute Lymphocyte Count 1.42 X10^3/uL (0.83-4.51); Absolute Neutrophil Count 2.9 X10^3/uL (2.0-7.7); Basophil# 0.03 X10^3/uL; Basophil% 0.6 % (0-1); Eosinophil# 0.41 X10^3/uL; Eosinophils% 7.6 % (0-5); Hemoglobin 10.5 g/dL (12.0-15.0); Lymphocyte # 1.42 X10^3/ul (4.0); Lymphocyte % 26.5 % (19-41); Mean Corp Hgb Conc 31.8 g/dL (32-36); Mean Corpuscular Hgb 30.1 pg (27.0-32.0); Mean Corpuscular Volume 94.6 fL (81-99); Monocyte# 0.61 X10^3/uL; Monocyte% 11.4 % (0-10); NRBC Flagged by Analyzer 0 % (0-5); Neutrophil # 2.87 X10^3/uL (2.7-7.7); Neutrophil % 53.5 % (47-70); Platelet Count 211 K/mm3 (150-450); RBC Distribution Width CV 14.4 % (11.6-14.6); RBC Distribution Width SD 48.2 fl (35.1-43.9); Red Blood Count 3.49 M/mm3 (4.2-5.4); White Blood Count 5.4 K/mm3 (4.4-11.0)
[2020-05-12 15:19] LABS: AST(SGOT) 15 U/L (15-37); Alanine Aminotransfer ALT/SGPT 20 U/L (13-56); Albumin, Serum 3.6 g/dL (3.2-5.0); Alkaline Phosphatase 74 U/L (45-117); Anion Gap 5 (5-15); BUN 23 mg/dL (7-18); BUN/Creat Ratio 21.5 RATIO (10-20); Calcium,Total 8.8 mg/dL (8.5-10.1); Chloride 107 mmol/L (98-107); Creatinine, Serum 1.07 mg/dL (0.55-1.02); EST Glomerular Filtration Rate 53 mL/min (>60); Est Glom Filt Rate - Afr Amer 64 mL/min (>60); Globulin 3.7 g/dL (2.2-4.2); Glucose 111 mg/dL (74-106); Potassium 4.1 mmol/L (3.5-5.1); Protein, Total 7.3 g/dL (6.4-8.2); Sodium Level 139 mmol/L (136-145)
[2020-05-12 15:26] LABS: Cholesterol 155 mg/dL (200); High Density Lipoprotein 50 mg/dL; Triglycerides 205 mg/dL; Very Low Density Lipoprotein 41 mg/dL (5-40)
== END ==
PROVIDERS: PCP Internal Medicine; Referring Provider Internal Medicine Rheumatology; Visit Provider Internal Medicine Rheumatology
DX: M06.00 Rheumatoid arthritis without rheumatoid factor, unspecified site (principal); M18.11 Unilateral primary osteoarthritis of first carpometacarpal joint, right hand; I10 Essential (primary) hypertension; E78.5 Hyperlipidemia, unspecified; M17.0 Bilateral primary osteoarthritis of knee; M47.892 Other spondylosis, cervical region; M47.897 Other spondylosis, lumbosacral region; I83.90 Asymptomatic varicose veins of unspecified lower extremity; F32.89 Other specified depressive episodes; Z79.899 Other long term (current) drug therapy
CPT/HCPCS: 36415; 80053; 80061; 85025

== ENCOUNTER → 2020-07-06 | Outpatient (CLI) | payer MEDICARE, SELFPAY ==
[2019-10-27 11:40] VITALS: BMI 36.7
[2020-07-06 15:21] LABS: Absolute Lymphocyte Count 1.42 X10^3/uL (0.83-4.51); Absolute Neutrophil Count 3.9 X10^3/uL (2.0-7.7); Basophil# 0.04 X10^3/uL; Basophil% 0.6 % (0-1); Eosinophil# 0.31 X10^3/uL; Hematocrit 33.4 % (37-47); Hemoglobin 10.8 g/dL (12.0-15.0); Lymphocyte # 1.42 X10^3/ul (4.0); Lymphocyte % 22.7 % (19-41); Mean Corp Hgb Conc 32.3 g/dL (32-36); Mean Corpuscular Hgb 30.6 pg (27.0-32.0); Mean Corpuscular Volume 94.6 fL (81-99); Mean Platelet Vol. 11.1 fl (6.2-12.0); Monocyte# 0.52 X10^3/uL; Monocyte% 8.3 % (0-10); NRBC Flagged by Analyzer 0 % (0-5); Neutrophil # 3.94 X10^3/uL (2.7-7.7); Neutrophil % 63.1 % (47-70); Platelet Count 195 K/mm3 (150-450); RBC Distribution Width CV 14.4 % (11.6-14.6); RBC Distribution Width SD 48.5 fl (35.1-43.9); Red Blood Count 3.53 M/mm3 (4.2-5.4); White Blood Count 6.3 K/mm3 (4.4-11.0)
[2020-07-06 15:24] LABS: ALB/GLOB Ratio 0.9 RATIO (0.9-2.4); AST(SGOT) 18 U/L (15-37); Alanine Aminotransfer ALT/SGPT 25 U/L (13-56); Albumin, Serum 3.7 g/dL (3.2-5.0); Alkaline Phosphatase 79 U/L (45-117); Anion Gap 5 (5-15); BUN 19 mg/dL (7-18); BUN/Creat Ratio 18.4 RATIO (10-20); Calcium,Total 9.2 mg/dL (8.5-10.1); Chloride 103 mmol/L (98-107); Creatinine, Serum 1.03 mg/dL (0.55-1.02); EST Glomerular Filtration Rate 55 mL/min (>60); Est Glom Filt Rate - Afr Amer 66 mL/min (>60); Globulin 3.9 g/dL (2.2-4.2); Glucose 73 mg/dL (74-106); Potassium 4.2 mmol/L (3.5-5.1); Protein, Total 7.6 g/dL (6.4-8.2); Sodium Level 138 mmol/L (136-145)
== END | disposition home or self-care (01) ==
LOC: MTLAB 12:14
PROVIDERS: PCP Internal Medicine; Referring Provider Internal Medicine Rheumatology; Visit Provider Internal Medicine Rheumatology
DX: M06.00 Rheumatoid arthritis without rheumatoid factor, unspecified site (principal); M18.11 Unilateral primary osteoarthritis of first carpometacarpal joint, right hand; M17.0 Bilateral primary osteoarthritis of knee; M47.892 Other spondylosis, cervical region; M47.897 Other spondylosis, lumbosacral region; I10 Essential (primary) hypertension; E78.5 Hyperlipidemia, unspecified; F32.89 Other specified depressive episodes; I83.90 Asymptomatic varicose veins of unspecified lower extremity; Z79.899 Other long term (current) drug therapy
CPT/HCPCS: 36415; 80053; 85025

== ENCOUNTER → 2020-08-24 12:08 | Outpatient (CLI) | payer MEDICARE, SELFPAY ==
[2019-10-27 11:40] VITALS: BMI 36.7
[2020-08-24 15:29] LABS: Absolute Lymphocyte Count 1.05 X10^3/uL (0.83-4.51); Absolute Neutrophil Count 4.5 X10^3/uL (2.0-7.7); Basophil# 0.03 X10^3/uL; Basophil% 0.5 % (0-1); Eosinophil# 0.33 X10^3/uL; Eosinophils% 5.1 % (0-5); Hematocrit 34.6 % (37-47); Hemoglobin 10.8 g/dL (12.0-15.0); Lymphocyte # 1.05 X10^3/ul (4.0); Lymphocyte % 16.1 % (19-41); Mean Corp Hgb Conc 31.2 g/dL (32-36); Mean Corpuscular Hgb 30.7 pg (27.0-32.0); Mean Corpuscular Volume 98.3 fL (81-99); Mean Platelet Vol. 11.1 fl (6.2-12.0); Monocyte# 0.58 X10^3/uL; Monocyte% 8.9 % (0-10); NRBC Flagged by Analyzer 0 % (0-5); Neutrophil % 69.1 % (47-70); Platelet Count 206 K/mm3 (150-450); RBC Distribution Width CV 14.5 % (11.6-14.6); RBC Distribution Width SD 52.2 fl (35.1-43.9); Red Blood Count 3.52 M/mm3 (4.2-5.4); White Blood Count 6.5 K/mm3 (4.4-11.0)
[2020-08-24 16:13] LABS: ALB/GLOB Ratio 0.9 RATIO (0.9-2.4); AST(SGOT) 16 U/L (15-37); Alanine Aminotransfer ALT/SGPT 25 U/L (13-56); Albumin, Serum 3.7 g/dL (3.2-5.0); Alkaline Phosphatase 91 U/L (45-117); Anion Gap 3 (5-15); BUN 18 mg/dL (7-18); BUN/Creat Ratio 18.4 RATIO (10-20); Chloride 104 mmol/L (98-107); Creatinine, Serum 0.98 mg/dL (0.55-1.02); EST Glomerular Filtration Rate 58 mL/min (>60); Est Glom Filt Rate - Afr Amer 70 mL/min (>60); Globulin 3.9 g/dL (2.2-4.2); Glucose 103 mg/dL (74-106); Potassium 4.2 mmol/L (3.5-5.1); Protein, Total 7.6 g/dL (6.4-8.2); Sodium Level 137 mmol/L (136-145)
== END ==
PROVIDERS: PCP Internal Medicine; Referring Provider Internal Medicine Rheumatology; Visit Provider Internal Medicine Rheumatology
DX: M06.09 Rheumatoid arthritis without rheumatoid factor, multiple sites (principal); Z79.899 Other long term (current) drug therapy; M18.11 Unilateral primary osteoarthritis of first carpometacarpal joint, right hand; M17.0 Bilateral primary osteoarthritis of knee; M47.892 Other spondylosis, cervical region; M47.897 Other spondylosis, lumbosacral region; I10 Essential (primary) hypertension; E78.5 Hyperlipidemia, unspecified; F32.89 Other specified depressive episodes; I83.90 Asymptomatic varicose veins of unspecified lower extremity
CPT/HCPCS: 36415; 80053; 85025

== ENCOUNTER → 2020-10-23 10:54 | Outpatient (CLI) | payer MEDICARE, SELFPAY ==
[2020-10-23 12:55] LABS: Absolute Neutrophil Count 3.2 X10^3/uL (2.0-7.7); Basophil# 0.03 X10^3/uL; Basophil% 0.6 % (0-1); Eosinophil# 0.28 X10^3/uL; Eosinophils% 5.6 % (0-5); Hematocrit 36.7 % (37-47); Hemoglobin 11.7 g/dL (12.0-15.0); Lymphocyte % 24.2 % (19-41); Mean Corp Hgb Conc 31.9 g/dL (32-36); Mean Corpuscular Volume 94.1 fL (81-99); Mean Platelet Vol. 10.6 fl (6.2-12.0); Monocyte# 0.29 X10^3/uL; Monocyte% 5.8 % (0-10); NRBC Flagged by Analyzer 0 % (0-5); Neutrophil # 3.15 X10^3/uL (2.7-7.7); Neutrophil % 63.6 % (47-70); Platelet Count 231 K/mm3 (150-450); RBC Distribution Width CV 13.9 % (11.6-14.6); RBC Distribution Width SD 46.5 fl (35.1-43.9)
[2020-10-23 13:30] LABS: BUN 15 mg/dL (7-18); Creatinine, Serum 1.01 mg/dL (0.55-1.02); Glucose 60 mg/dL (74-106)
[2020-10-23 13:31] LABS: ALB/GLOB Ratio 0.9 RATIO (0.9-2.4); AST(SGOT) 30 U/L (15-37); Alanine Aminotransfer ALT/SGPT 35 U/L (13-56); Albumin, Serum 3.9 g/dL (3.2-5.0); Alkaline Phosphatase 94 U/L (45-117); Anion Gap 8 (5-15); BUN/Creat Ratio 14.9 RATIO (10-20); Calcium,Total 9.3 mg/dL (8.5-10.1); Chloride 104 mmol/L (98-107); EST Glomerular Filtration Rate 56 mL/min (>60); Est Glom Filt Rate - Afr Amer 68 mL/min (>60); Globulin 4.4 g/dL (2.2-4.2); Potassium 3.9 mmol/L (3.5-5.1); Protein, Total 8.3 g/dL (6.4-8.2); Sodium Level 140 mmol/L (136-145)
== END ==
PROVIDERS: PCP Internal Medicine; Referring Provider Internal Medicine Rheumatology; Visit Provider Internal Medicine Rheumatology
DX: M06.09 Rheumatoid arthritis without rheumatoid factor, multiple sites (principal); M18.11 Unilateral primary osteoarthritis of first carpometacarpal joint, right hand; M17.0 Bilateral primary osteoarthritis of knee; M47.892 Other spondylosis, cervical region; M47.897 Other spondylosis, lumbosacral region; I10 Essential (primary) hypertension; E78.5 Hyperlipidemia, unspecified; F32.89 Other specified depressive episodes; I83.90 Asymptomatic varicose veins of unspecified lower extremity; Z79.899 Other long term (current) drug therapy
CPT/HCPCS: 36415; 80053; 85025

== ENCOUNTER → 2020-10-24 11:00 | Outpatient (CLI) | payer MEDICARE, SELFPAY | PROVIDERS: PCP Internal Medicine; Visit Provider Internal Medicine Critical Care Medicine | DX: G47.33 Obstructive sleep apnea (adult) (pediatric) (principal) | CPT/HCPCS: 98960; G0463 ==

== ENCOUNTER → 2021-01-03 14:09 | Outpatient (CLI) | payer MEDICARE, SELFPAY ==
[2021-01-03 17:43] LABS: Absolute Lymphocyte Count 1.39 X10^3/uL (0.83-4.51); Absolute Neutrophil Count 3.3 X10^3/uL (2.0-7.7); Basophil# 0.03 X10^3/uL; Basophil% 0.5 % (0-1); Eosinophil# 0.28 X10^3/uL; Eosinophils% 5.1 % (0-5); Hematocrit 33.8 % (37-47); Hemoglobin 10.6 g/dL (12.0-15.0); Lymphocyte # 1.39 X10^3/ul (4.0); Lymphocyte % 25.4 % (19-41); Mean Corp Hgb Conc 31.4 g/dL (32-36); Mean Corpuscular Hgb 30.5 pg (27.0-32.0); Mean Corpuscular Volume 97.1 fL (81-99); Mean Platelet Vol. 10.8 fl (6.2-12.0); Monocyte% 9.1 % (0-10); NRBC Flagged by Analyzer 0 % (0-5); Neutrophil # 3.26 X10^3/uL (2.7-7.7); Neutrophil % 59.5 % (47-70); Platelet Count 220 K/mm3 (150-450); RBC Distribution Width CV 14.6 % (11.6-14.6); RBC Distribution Width SD 51.2 fl (35.1-43.9); Red Blood Count 3.48 M/mm3 (4.2-5.4); White Blood Count 5.5 K/mm3 (4.4-11.0)
[2021-01-03 18:05] LABS: ALB/GLOB Ratio 0.9 RATIO (0.9-2.4); AST(SGOT) 17 U/L (15-37); Alanine Aminotransfer ALT/SGPT 25 U/L (13-56); Albumin, Serum 3.6 g/dL (3.2-5.0); Alkaline Phosphatase 84 U/L (45-117); Anion Gap 3 (5-15); BUN 19 mg/dL (7-18); BUN/Creat Ratio 19.6 RATIO (10-20); Calcium,Total 8.8 mg/dL (8.5-10.1); Chloride 104 mmol/L (98-107); Creatinine, Serum 0.97 mg/dL (0.55-1.02); EST Glomerular Filtration Rate 59 mL/min (>60); Est Glom Filt Rate - Afr Amer 71 mL/min (>60); Globulin 4.1 g/dL (2.2-4.2); Glucose 100 mg/dL (74-106); Protein, Total 7.7 g/dL (6.4-8.2); Sodium Level 136 mmol/L (136-145)
== END ==
PROVIDERS: PCP Internal Medicine; Visit Provider Internal Medicine Rheumatology
DX: M06.9 Rheumatoid arthritis, unspecified (principal); M18.11 Unilateral primary osteoarthritis of first carpometacarpal joint, right hand; M17.0 Bilateral primary osteoarthritis of knee; M47.892 Other spondylosis, cervical region; M47.897 Other spondylosis, lumbosacral region; I10 Essential (primary) hypertension; E78.5 Hyperlipidemia, unspecified; F32.89 Other specified depressive episodes; I83.90 Asymptomatic varicose veins of unspecified lower extremity; Z79.899 Other long term (current) drug therapy
CPT/HCPCS: 36415; 80053; 85025

== ENCOUNTER → 2021-03-30 12:50 | Outpatient (CLI) | payer MEDICARE, SELFPAY ==
[2021-03-30 15:34] LABS: Absolute Lymphocyte Count 0.85 X10^3/uL (0.83-4.51); Absolute Neutrophil Count 2.5 X10^3/uL (2.0-7.7); Basophil# 0.03 X10^3/uL; Basophil% 0.7 % (0-1); Eosinophil# 0.32 X10^3/uL; Eosinophils% 7.5 % (0-5); Hematocrit 32.9 % (37-47); Hemoglobin 10.3 g/dL (12.0-15.0); Lymphocyte # 0.85 X10^3/ul (0.83-4.51); Mean Corp Hgb Conc 31.3 g/dL (32-36); Mean Corpuscular Hgb 30.5 pg (27.0-32.0); Mean Corpuscular Volume 97.3 fL (81-99); Mean Platelet Vol. 11.1 fl (6.2-12.0); Monocyte# 0.52 X10^3/uL; Monocyte% 12.3 % (0-10); NRBC Flagged by Analyzer 0 % (0-5); Platelet Count 192 K/mm3 (150-450); RBC Distribution Width CV 14.9 % (11.6-14.6); Red Blood Count 3.38 M/mm3 (4.2-5.4); White Blood Count 4.2 K/mm3 (4.4-11.0)
[2021-03-30 15:50] LABS: ALB/GLOB Ratio 0.9 RATIO (0.9-2.4); AST(SGOT) 20 U/L (15-37); Alanine Aminotransfer ALT/SGPT 25 U/L (13-56); Albumin, Serum 3.6 g/dL (3.2-5.0); Alkaline Phosphatase 92 U/L (45-117); Anion Gap 7 (5-15); BUN 17 mg/dL (7-18); Calcium,Total 8.7 mg/dL (8.5-10.1); Chloride 105 mmol/L (98-107); Creatinine, Serum 1.06 mg/dL (0.55-1.02); EST Glomerular Filtration Rate 53 mL/min (>60); Est Glom Filt Rate - Afr Amer 64 mL/min (>60); Globulin 3.9 g/dL (2.2-4.2); Glucose 116 mg/dL (74-106); Potassium 4.1 mmol/L (3.5-5.1); Protein, Total 7.5 g/dL (6.4-8.2); Sodium Level 139 mmol/L (136-145)
== END ==
PROVIDERS: PCP Internal Medicine; Referring Provider Internal Medicine Rheumatology; Visit Provider Internal Medicine Rheumatology
DX: M06.09 Rheumatoid arthritis without rheumatoid factor, multiple sites (principal); M18.11 Unilateral primary osteoarthritis of first carpometacarpal joint, right hand; M17.0 Bilateral primary osteoarthritis of knee; M47.892 Other spondylosis, cervical region; M47.897 Other spondylosis, lumbosacral region; I10 Essential (primary) hypertension; E78.5 Hyperlipidemia, unspecified; F32.89 Other specified depressive episodes; I83.90 Asymptomatic varicose veins of unspecified lower extremity; Z79.899 Other long term (current) drug therapy
CPT/HCPCS: 36415; 80053; 85025

== ENCOUNTER 2021-05-23 14:15 | Outpatient (RCR) | payer MEDICARE, SELFPAY ==
[2021-05-09 13:28] VITALS: BP 136/69; TEMP 36.4
[2021-05-09 15:46] LABS: Absolute Lymphocyte Count 1.26 X10^3/uL (0.83-4.51); Absolute Neutrophil Count 3.2 X10^3/uL (2.0-7.7); Basophil# 0.04 X10^3/uL; Basophil% 0.8 % (0-1); Eosinophil# 0.34 X10^3/uL; Eosinophils% 6.4 % (0-5); Hematocrit 34.2 % (37-47); Hemoglobin 10.8 g/dL (12.0-15.0); Lymphocyte # 1.26 X10^3/ul (0.83-4.51); Lymphocyte % 23.9 % (19-41); Mean Corp Hgb Conc 31.6 g/dL (32-36); Mean Corpuscular Hgb 29.9 pg (27.0-32.0); Mean Corpuscular Volume 94.7 fL (81-99); Mean Platelet Vol. 10.3 fl (6.2-12.0); Monocyte# 0.45 X10^3/uL; Monocyte% 8.5 % (0-10); NRBC Flagged by Analyzer 0 % (0-5); Neutrophil # 3.17 X10^3/uL (2.7-7.7); Platelet Count 225 K/mm3 (150-450); RBC Distribution Width CV 14.7 % (11.6-14.6); RBC Distribution Width SD 50.8 fl (35.1-43.9); Red Blood Count 3.61 M/mm3 (4.2-5.4); White Blood Count 5.3 K/mm3 (4.4-11.0)
--- NOTE | 2021-05-09 15:50 | RAD_ITS ---
INDICATION: ULCER R FOOT/L FOOT EXAMINATION/TECHNIQUE: X-RAY - LEFT XR Foot Min 3 Views 3 VIEWS COMPARISON: None. FINDINGS: Studies of the left foot in 3 projections shows no evidence of fracture, dislocation, or bony destruction. RAD/Foot min 3 Views IMPRESSION: Normal three-view left foot. Electronically Signed: Robert Chilel DO at 10:03 EDT Tel , Service support ,
--- NOTE | 2021-05-09 15:50 | RAD_ITS ---
INDICATION: ULCER R FOOT EXAMINATION/TECHNIQUE: X-RAY - RIGHT XR Foot Min 3 Views 3 VIEWS COMPARISON: None. FINDINGS: Studies of the right foot in 3 projections shows no evidence of fracture, dislocation, or bony destruction. Calcaneal spur formation off the inferior and posterior aspects of the calcaneus. RAD/Foot min 3 Views IMPRESSION: Calcaneal spurs are seen, otherwise the right foot shows no acute pathology Electronically Signed: Robert Chilel DO at 10:35 EDT Tel , Service support ,
[2021-05-09 16:12] LABS: ALB/GLOB Ratio 0.8 RATIO (0.9-2.4); AST(SGOT) 20 U/L (15-37); Alanine Aminotransfer ALT/SGPT 26 U/L (13-56); Albumin, Serum 3.6 g/dL (3.2-5.0); Alkaline Phosphatase 89 U/L (45-117); Anion Gap 6 (5-15); BUN 18 mg/dL (7-18); BUN/Creat Ratio 15.8 RATIO (10-20); Calcium,Total 9.1 mg/dL (8.5-10.1); Chloride 105 mmol/L (98-107); Creatinine, Serum 1.14 mg/dL (0.55-1.02); EST Glomerular Filtration Rate 49 mL/min (>60); Est Glom Filt Rate - Afr Amer 59 mL/min (>60); Globulin 4.4 g/dL (2.2-4.2); Glucose 100 mg/dL (74-106); Potassium 4.1 mmol/L (3.5-5.1); Sodium Level 139 mmol/L (136-145)
[2021-05-09 16:18] LABS: Hemoglobin A1c 5.6 % (3.8-5.6)
--- NOTE | 2021-05-09 16:27 | PCM.WC.PN ---
History of Present Illness Date of Service: 05/09/21 Chief Complaint: Bilateral foot wounds History of Wound: This 80-year-old female presents to the wound healing center with multiple foot wounds that have been present for couple of months that started out as blisters. She denies trauma. She reports she does have neuropathy but does not have diabetes. She is a non-smoker. She denies claudication. She has delayed healing. She denies redness or odor. She has tried some basic dressings. She presents wearing regular close shoes. Her primary care physician is Dr. Monsivais. Progress of Wound: Stable Objective Data Objective Data Vital Signs: Vital Signs Temp BP 97.5 F L 136/69 H 05/09/21 13:28 05/09/21 13:28 Lab / Micro Data Result Diagrams: 05/09/21 15:17 05/09/21 15:17 Labs: Laboratory Results - last 24 hr 05/09/21 15:17: Sodium 139, Potassium 4.1, Chloride 105, Carbon Dioxide 28.0, Anion Gap 6, BUN 18, Creatinine 1.14 H, Est GFR (MDRD) Af Amer 59 L, Est GFR (MDRD) Non-Af 49 L, BUN/Creatinine Ratio 15.8, Glucose 100, Calcium 9.1, Total Bilirubin 0.40, AST 20, ALT 26, Alkaline Phosphatase 89, Total Protein 8.0, Albumin 3.6, Globulin 4.4 H, Albumin/Globulin Ratio 0.8 L 05/09/21 15:17: Hemoglobin A1c 5.6 05/09/21 15:17: WBC 5.3, RBC 3.61 L, Hgb 10.8 L, Hct 34.2 L, MCV 94.7, MCH 29.9, MCHC 31.6 L, RDW Std Deviation 50.8 H, RDW Coeff of Danny 14.7 H, Plt Count 225, MPV 10.3, Immature Gran % (Auto) 0.400, Neut % (Auto) 60.0, Lymph % (Auto) 23.9, [place] % (Auto) 8.5, Eos % (Auto) 6.4 H, Baso % (Auto) 0.8, Absolute Neuts (auto) 3.2, Absolute Lymphs (auto) 1.26, Nucleated RBC % 0 Physical Exam Const alert and oriented x3 General Appearance: cooperative HEENT normocephalic Extremity Extremity Narrative: No calf tenderness Diminished pulses Muscle wasting noted General Extremity: edema and no tenderness to palpation of joints or extremities; Negative for cyanosis Skin Skin Narrative: no purulence, no streaking, no odor, no infection. Right plantar and fourth toe ulcers and also left plantar and second toe ulcers have granular base and are superficial in nature. No deep tissue exposure. No bogginess or fluctuance. Her skin is hairless and atrophic. General Skin Exam: Negative for erythema Neuro Neuro Narrative: lack of normal epicritic sensation via light touch is consistent with neuropathy status Psych cooperative and affect normal Debridement Note Debridement Note Post-Debridement Measurements and Additional Note: Post-Debridement Measurements/Treatment DEANGELO - Nurse 1 - General Ulcer Assessment Start: 05/09/21 13:28 Freq: Status: Active Protocol: MANUELITO Activity Type Activity Date Activity User E-Sign Co-Sign Detail Recorded Client Recorded Date Recorded By Document 05/09/21 13:28 MAREK [id number] 05/09/21 13:49 MAREK 05/09/21 13:28 - Today's Visit Information Type of service Initial Visit Arrival Mode Ambulatory Patient Identification Verified (Name & Yes ) Vital Signs Temperature (97.8 F-99.1 F) 97.5 F L Temperature Source Temporal Blood Pressure (90/60-120/80) 136/69 H Blood Pressure Mean (mm Hg) 91 Source Monitor History Since Last Visit- (Skip if this is Patient's initial visit) Have you changed medications since your No last visit? Any new allergies or adverse reactions No Had a fall/change in ADL's that may No increase risk of falls Signs or symptoms of abuse and/or No neglect since last visit Have you been in the hospital since your No last visit? Has dressing in place as prescribed Yes Has compression in place as prescribed N/A Has offloadiing in place as prescribed N/A Experienced any changes in pain level or No management Left Footwear Regular Shoe Right Footwear Regular Shoe Pain Scale: 0-10 Numeric Is Patient Pain Free? No Lower Extremity Assessment/ Foot Assessment/ Toe Nail Assessment Right -Popliteal Doppler Monophasic -Posterior Tibial Doppler Monophasic -Dorsalis Pedis Doppler Monophasic -Extremity Color Dusky -Hair Growth on Legs No -Hair Growth on Toes No -Temperature of Extremity Warm -Capillary Refill Less than 3 Seconds -Dependent Rubor No -Blanched when Elevated No -Lipodermatosclerosis No -Other Deformity No -Prior Foot Ulcer No -Charcot Joint No -Prior Amputation No -Thick No -Discolored No -Deformed No -Improper Length & Hygeine No Left -Popliteal Doppler Monophasic -Posterior Tibial Doppler Monophasic -Dorsalis Pedis Doppler Monophasic -Extremity Color Dusky -Hair Growth on Legs No -Hair Growth on Toes No -Temperature of Extremity Warm -Capillary Refill Less than 3 Seconds -Dependent Rubor No -Blanched when Elevated No -Lipodermatosclerosis No -Other Deformity No -Prior Foot Ulcer No -Charcot Joint No -Prior Amputation No -Thick No -Discolored No -Deformed No -Improper Length & Hygeine No Neuropathy Assessment Feet - Top Side and Bottom <Entered> (a) (a) 1 - - 2 - - 3 - + 4 - + 5 - + 6 - - WC - Nurse 1 - General Ulcer Measurement Start: 05/09/21 13:28 Freq: Status: Active Protocol: Activity Type Activity Date Activity User E-Sign Co-Sign Detail Recorded Client Recorded Date Recorded By Document 05/09/21 13:28 MAREK [id number] 05/09/21 13:49 MAREK 05/09/21 13:28 Wound Center Nurse 1 Left 2nd toe -Current Size (cm) - Length 0.3 -Current Size (cm) - Width 0.3 -Current Size (cm) - Depth 0.1 -Total Square Cm 0.09 -Photo Taken Yes -Epithelialization Small 1-33% -Tunneling No -Undermining/Tunneling No -Circular Undermining No -Exudate Amt None Present -Wound Margin Distinct, Outline Attached -Granulation Amt Small (1-33%) -Granulation Quality N/A -Necrosis Amt Small (1-33%) -Structure Exposed N/A -Texture (Zari-wound Skin Appearance) No Abnormality, Assessed -Moisture (Zari-wound Skin Appearance) No Abnormality, Assessed -Color (Zari-wound Skin Appearance) No Abnormality, Assessed -Temperature (Zari-wound Skin No Abnormality Appearance) (Pt Warm) -Tenderness on Palpation (Zari-wound No Skin Appearance) -Ulcer Cleansing Rinsed/ Irrigated with Saline -Anesthetic Used 5% Lidocaine Gel Left Plantar -Combined with other wound No -Current Size (cm) - Length 0.2 -Current Size (cm) - Width 0.2 -Current Size (cm) - Depth 0.1 -Total Square Cm 0.04 -Photo Taken Yes -Epithelialization Small 1-33% -Tunneling No -Undermining/Tunneling No -Circular Undermining No -Exudate Amt None Present -Wound Margin Distinct, Outline Attached -Granulation Amt Medium (34-66%) -Slough/Fibrin No -Necrosis Amt Small (1-33%) -Structure Exposed N/A -Texture (Zari-wound Skin Appearance) No Abnormality, Assessed -Moisture (Zari-wound Skin Appearance) No Abnormality, Assessed -Color (Zari-wound Skin Appearance) No Abnormality, Assessed -Temperature (Zari-wound Skin No Abnormality Appearance) (Pt Warm) -Tenderness on Palpation (Zari-wound No Skin Appearance) -Ulcer Cleansing Rinsed/ Irrigated with Saline -Anesthetic Used 5% Lidocaine Gel Right 4th toe -Combined with other wound No -Current Size (cm) - Length 1 -Current Size (cm) - Width 0.7 -Current Size (cm) - Depth 0.1 -Total Square Cm 0.7 -Photo Taken Yes -Epithelialization Small 1-33% -Tunneling No -Undermining/Tunneling No -Circular Undermining No -Exudate Amt None Present -Wound Margin Distinct, Outline Attached -Granulation Amt None Present (0 %) -Necrosis Amt None Present (0 %) -Texture (Zari-wound Skin Appearance) No Abnormality, Assessed -Moisture (Zari-wound Skin Appearance) No Abnormality, Assessed -Temperature (Zari-wound Skin No Abnormality Appearance) (Pt Warm) -Tenderness on Palpation (Zari-wound No Skin Appearance) -Ulcer Cleansing Rinsed/ Irrigated with Saline -Foul Odor after Cleansing No -Anesthetic Used 5% Lidocaine Gel Right Plantar -Combined with other wound No -Current Size (cm) - Length 0.5 -Current Size (cm) - Width 0.6 -Current Size (cm) - Depth 0.1 -Total Square Cm 0.30 -Photo Taken Yes -Epithelialization Medium 34-66% -Undermining/Tunneling No -Circular Undermining No -Exudate Amt None Present -Granulation Amt None Present (0 %) -Slough/Fibrin No -Necrosis Amt Small (1-33%) -Necrotic Tissue Type Eschar -Texture (Zari-wound Skin Appearance) No Abnormality, Assessed -Moisture (Zari-wound Skin Appearance) No Abnormality, Assessed -Color (Zari-wound Skin Appearance) No Abnormality, Assessed -Temperature (Zari-wound Skin No Abnormality Appearance) (Pt Warm) -Tenderness on Palpation (Zari-wound No Skin Appearance) -Ulcer Cleansing Rinsed/ Irrigated with Saline -Anesthetic Used 5% Lidocaine Gel Point of measurement (cm from the medial 40 instep) Right Ankle (cm) 32 Left Calf (cm) 40.5 Point of Measurement (cm from the medial 23.2 instep) WC - Nurse 2 - General Ulcer CM Notes Start: 05/09/21 13:28 Freq: Status: Active Protocol: Activity Type Activity Date Activity User E-Sign Co-Sign Detail Recorded Client Recorded Date Recorded By Document 05/09/21 14:04 INOCENTE [id number] 05/09/21 14:17 INOCENTE 05/09/21 14:04 Wound Center Nurse 2 Left 2nd toe -Time 14:06 -Correct Patient Yes -Correct Side, Site, Position Yes -Correct Procedure Yes -Procedure Performed Yes -Type of Procedure Debridement -Clinical Debridement Subcutaneous -Tissue Removed Subcutaneous -Post Debridement (cm) - Length 0.4 -Post Debridement (cm) - Width 0.4 -Post Debridement (cm) - Depth 0.1 -Total Square (Post) (cm) 0.16 -Area of Debridement (cm) - Length 0.4 -Area of Debridement (cm) - Width 0.4 -Total Square (Area) (cm) 0.16 -Tunneling No -Undermining/Tunneling No -Circular Undermining No -Wound/Ulcer Outcome Not Healed -Ulcer Cleansing Rinsed/ Irrigated with Saline -Foul Odor after Cleansing No -Bioengineered Tissue No -Bleeding Controlled with Pressure -Offloading Yes -Type of Offloading Surgical Shoe -Treatment Response Procedure Tolerated Well -Debridement - Subq, 1st 20sq cm Yes Left Plantar -Time 14:07 -Correct Patient Yes -Correct Side, Site, Position Yes -Correct Procedure Yes -Procedure Performed Yes -Type of Procedure Debridement -Clinical Debridement Subcutaneous -Tissue Removed Subcutaneous -Post Debridement (cm) - Length 0.3 -Post Debridement (cm) - Width 0.2 -Post Debridement (cm) - Depth 0.1 -Total Square (Post) (cm) 0.06 -Area of Debridement (cm) - Length 0.3 -Area of Debridement (cm) - Width 0.2 -Total Square (Area) (cm) 0.06 -Tunneling No -Undermining/Tunneling No -Circular Undermining No -Wound/Ulcer Outcome Not Healed -Ulcer Cleansing Rinsed/ Irrigated with Saline -Foul Odor after Cleansing No -Bioengineered Tissue No -Bleeding Controlled with Pressure -Offloading Yes -Type of Offloading Surgical Shoe -Treatment Response Procedure Tolerated Well -Debridement - Subq, 1st 20sq cm No Right 4th toe -Time 14:08 -Correct Patient Yes -Correct Side, Site, Position Yes -Correct Procedure Yes -Procedure Performed Yes -Type of Procedure Debridement -Clinical Debridement Subcutaneous -Tissue Removed Subcutaneous -Post Debridement (cm) - Length 1 -Post Debridement (cm) - Width 0.8 -Post Debridement (cm) - Depth 0.1 -Total Square (Post) (cm) 0.8 -Area of Debridement (cm) - Length 1 -Area of Debridement (cm) - Width 0.8 -Total Square (Area) (cm) 0.8 -Tunneling No -Undermining/Tunneling No -Circular Undermining No -Wound/Ulcer Outcome Not Healed -Ulcer Cleansing Rinsed/ Irrigated with Saline -Foul Odor after Cleansing No -Bioengineered Tissue No -Bleeding Controlled with Pressure -Offloading Yes -Type of Offloading Surgical Shoe -Treatment Response Procedure Tolerated Well -Debridement - Subq, 20sq cm No Right Plantar -Time 14:09 -Correct Patient Yes -Correct Side, Site, Position Yes -Correct Procedure Yes -Procedure Performed Yes -Type of Procedure Debridement -Clinical Debridement Subcutaneous -Tissue Removed Subcutaneous -Post Debridement (cm) - Length 0.6 -Post Debridement (cm) - Width 0.6 -Post Debridement (cm) - Depth 0.1 -Total Square (Post) (cm) 0.36 -Area of Debridement (cm) - Length 0.6 -Area of Debridement (cm) - Width 0.6 -Total Square (Area) (cm) 0.36 -Tunneling No -Circular Undermining No -Wound/Ulcer Outcome Not Healed -Ulcer Cleansing Rinsed/ Irrigated with Saline -Foul Odor after Cleansing No -Bioengineered Tissue No -Bleeding Controlled with Pressure -Offloading Yes -Type of Offloading Surgical Shoe -Treatment Response Procedure Tolerated Well -Debridement - Subq, 1st 20sq cm No Pain Scale: 0-10 Numeric Is Patient Pain Free? Yes WC - Nurse 3 - General Ulcer D/C NN Start: 05/09/21 13:28 Freq: Status: Active Protocol: Activity Type Activity Date Activity User E-Sign Co-Sign Detail Recorded Client Recorded Date Recorded By Document 05/09/21 14:31 ML [id number] 05/09/21 14:33 ML 05/09/21 14:31 Wound Care Nurse 3 Left 2nd toe -Ulcer Cleansing Rinsed/ Irrigated with Saline -Foul Odor after Cleansing No -Primary Dressing Applied Aquacel AG 4x4 -Primary Dressing Covered/Secured with Dry Gauze & Roll Gauze, Secured with Tape -Aquacel AG 4x4 1 Left Plantar -Ulcer Cleansing Rinsed/ Irrigated with Saline -Foul Odor after Cleansing No -Primary Dressing Applied Aquacel AG 4x4 -Primary Dressing Covered/Secured with Dry Gauze & Roll Gauze, Secured with Tape -Aquacel AG 4x4 0 Right 4th toe -Ulcer Cleansing Rinsed/ Irrigated with Saline -Primary Dressing Applied Aquacel AG 4x4 -Primary Dressing Covered/Secured with Dry Gauze & Roll Gauze, Secured with Tape -Aquacel AG 4x4 0 Right Plantar -Ulcer Cleansing Rinsed/ Irrigated with Saline -Primary Dressing Applied Aquacel AG 4x4 -Primary Dressing Covered/Secured with Dry Gauze & Roll Gauze, Secured with Tape -Aquacel AG 4x4 0 WC - Visit Discharge Discharge Condition Stable Ambulatory Status Ambulatory Medication Reconcilliation completed & No provided to patient/care provider Clinical Summary of Care Provided Yes Wound debrided: R. sub 1st metatarsal head, R. 4th toe, L. Sub 1st metatarsal head, L 2 toe Wound Grade/Stage: Type of Debridement: Excisional debridement Anesthesia Used: 4% Lidocaine Solution Depth: in the subcutaneous layer Percentage of wound debrided: 100 Instrument Used: #15 blade Tissue Removed: fibrous, devitalized subcutaneous, biofilm, slough Severity: Fat Layer Exposed Amount of bleeding with debridement: Mild Bleeding Controlled with: Pressure Patient tolerated procedure: Patient tolerated procedure well Assessment/Plan Assessment/Plan (1) 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 exposed: CODE(S): L97.512 - 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 exposed (2) Other specified peripheral vascular diseases: CODE(S): I73.89 - Other specified peripheral vascular diseases (3) Venous insufficiency (chronic) (peripheral): CODE(S): I87.2 - Venous insufficiency (chronic) (peripheral) (4) Localized edema: CODE(S): R60.0 - Localized edema (5) Chronic ulcer of left foot with fat layer exposed: CODE(S): L97.522 - Non-pressure chronic ulcer of other part of left foot with fat layer exposed (6) Other hereditary and idiopathic neuropathies: CODE(S): G60.8 - Other hereditary and idiopathic neuropathies PLAN: I reviewed and discussed his case today. Debridement was performed today as noted in the clinical panel to all of the ulcer sites. The following work up and care recommendations were made: Dressing: To change daily with Aquacel Ag Wash: Wash daily with antibacterial soap and water. Avoid soaking Tissue growth optimization: Advanced wound healing product application be considered if she has ongoing delays in healing and if she qualifies. I recommend starting with basic wound care first. Offload: To keep pressure off of the ulcer sites. Bilateral surgical shoes were dispensed with dual density Plastizote off loading liners to keep pressure off of the plantar ulcer sites and toe ulcers. Vascular: I recommend noninvasive vascular studies to screen for any arterial deficiencies or occlusions. This was ordered. Edema: This is fairly controlled at this time. Infection: She is reassured there are no local signs of infection. Pain: Controlled Host factors: Her comorbidities are noted. I recommend nutritional supplementation including Angel optimize healing. Diagnostic data: Bilateral foot x-rays were ordered and reviewed once these were obtained after clinic. There were no fractures, dislocation, osseous destruction, soft tissue emphysema or foreign bodies noted to bilateral foot. CBC was reviewed and is noted her white blood cell count is 5.3, CMP was reviewed and she is slight reduction in kidney function with a GFR of 59, and a A1c of 5.6%. To return the wound healing center 1 week or call sooner if she has any questions, concerns, or development of infection. I answered all the patient's questions. To return to the wound healing center in 1 week or call sooner if the patient has any questions or concerns.
[2021-05-16 13:35] VITALS: BP 118/47; PULSE 68; RESP 18; TEMP 36.1
--- NOTE | 2021-05-16 15:50 | PCM.WC.PN ---
History of Present Illness Date of Service: 05/16/21 Chief Complaint: Bilateral foot wounds History of Wound: This 80-year-old female presents to the wound healing center with multiple foot wounds that have been present for couple of months that started out as blisters. She denies trauma. She reports she does have neuropathy but does not have diabetes. She is a non-smoker. She denies claudication. She has delayed healing. She denies redness or odor. She has tried some basic dressings. She presents wearing regular close shoes. Her primary care physician is Dr. Monsivais. She tried to wear her surgical shoe and reports she is very active. She is healing squatting down gardening in which her foot was moving around a lot. She thinks the strap of the surgical shoe may have irritated her right fourth toe. Progress of Wound: healed left second toe improved left plantar foot ulcer stable right fourth toe and plantar right foot Objective Data Objective Data Vital Signs: Vital Signs Temp Pulse Resp BP 97 F L 68 18 118/47 L 05/16/21 13:35 05/16/21 13:35 05/16/21 13:35 05/16/21 13:35 Lab / Micro Data Result Diagrams: 05/09/21 15:17 05/09/21 15:17 Physical Exam Const alert and oriented x3 General Appearance: cooperative HEENT normocephalic Extremity Extremity Narrative: No calf tenderness Diminished pulses Muscle wasting noted General Extremity: edema and no tenderness to palpation of joints or extremities; Negative for cyanosis Skin Skin Narrative: no purulence, no streaking, no odor, no infection. Right plantar and fourth toe ulcers and also left plantar foot have granular base and are superficial in nature. second left toe ulcer healed with full epithelialization. No deep tissue exposure. No bogginess or fluctuance. Her skin is hairless and atrophic. General Skin Exam: Negative for erythema Neuro Neuro Narrative: lack of normal epicritic sensation via light touch is consistent with neuropathy status Psych cooperative and affect normal Debridement Note Debridement Note Post-Debridement Measurements and Additional Note: Post-Debridement Measurements/Treatment WC - Nurse 1 - General Ulcer Assessment Start: 05/09/21 13:28 Freq: Status: Active Protocol: MANUELITO Activity Type Activity Date Activity User E-Sign Co-Sign Detail Recorded Client Recorded Date Recorded By Document 05/09/21 13:28 AK [id number] 05/09/21 13:49 AK Document 05/16/21 13:35 RB Desktop 05/16/21 13:36 RB 05/09/21 05/16/21 13:28 13:35 WC - Today's Visit Information Type of service Initial Visit Follow-up Visit (Physician/ESCROW OFFICER ) Arrival Mode Ambulatory Ambulatory Transfer Assistance None Patient Identification Verified (Name & Yes Yes ) Patient Requires Transmission-Based No Precautions Vital Signs Temperature (97.8 F-99.1 F) 97.5 F L 97 F L Temperature Source Temporal Temporal Pulse Rate (60-100) 68 Pulse Location Monitor Respiratory Rate (12-18) 18 Respiratory rate source Observation Blood Pressure (90/60-120/80) 136/69 H 118/47 L Blood Pressure Mean (mm Hg) 91 70 Source Monitor Monitor Position Semi-Fowlers Blood Pressure Location Right Arm History Since Last Visit- (Skip if this is Patient's initial visit) Have you changed medications since your No No last visit? Any new allergies or adverse reactions No No Had a fall/change in ADL's that may No No increase risk of falls Signs or symptoms of abuse and/or No No neglect since last visit Have you been in the hospital since your No No last visit? Has dressing in place as prescribed Yes Yes Has compression in place as prescribed N/A No Has offloadiing in place as prescribed N/A No Experienced any changes in pain level or No No management Left Footwear Regular Shoe Right Footwear Regular Shoe Pain Scale: 0-10 Numeric Is Patient Pain Free? No Yes Lower Extremity Assessment/ Foot Assessment/ Toe Nail Assessment Right -Popliteal Doppler Monophasic -Posterior Tibial Doppler Monophasic -Dorsalis Pedis Doppler Monophasic -Extremity Color Dusky -Hair Growth on Legs No -Hair Growth on Toes No -Temperature of Extremity Warm -Capillary Refill Less than 3 Seconds -Dependent Rubor No -Blanched when Elevated No -Lipodermatosclerosis No -Other Deformity No -Prior Foot Ulcer No -Charcot Joint No -Prior Amputation No -Thick No -Discolored No -Deformed No -Improper Length & Hygeine No Left -Popliteal Doppler Monophasic -Posterior Tibial Doppler Monophasic -Dorsalis Pedis Doppler Monophasic -Extremity Color Dusky -Hair Growth on Legs No -Hair Growth on Toes No -Temperature of Extremity Warm -Capillary Refill Less than 3 Seconds -Dependent Rubor No -Blanched when Elevated No -Lipodermatosclerosis No -Other Deformity No -Prior Foot Ulcer No -Charcot Joint No -Prior Amputation No -Thick No -Discolored No -Deformed No -Improper Length & Hygeine No Neuropathy Assessment Feet - Top Side and Bottom <Entered> (a) (a) 1 - - 2 - - 3 - + 4 - + 5 - + 6 - - WC - Nurse 1 - General Ulcer Measurement Start: 05/09/21 13:28 Freq: Status: Active Protocol: Activity Type Activity Date Activity User E-Sign Co-Sign Detail Recorded Client Recorded Date Recorded By Document 05/09/21 13:28 AK [id number] 05/09/21 13:49 AK Document 05/16/21 13:31 RB Desktop 05/16/21 13:35 RB 05/09/21 05/16/21 13:28 13:31 Wound Center Nurse 1 #2 LEFT SECOND TOE -Combined with other wound No -Current Size (cm) - Length 0.3 0.2 -Current Size (cm) - Width 0.3 0.2 -Current Size (cm) - Depth 0.1 0.1 -Total Square Cm 0.09 0.04 -Photo Taken Yes -Epithelialization Small 1-33% -Tunneling No No -Undermining/Tunneling No No -Circular Undermining No No -Exudate Amt None Present Small -Exudate Type Serosanguineous -Wound Margin Distinct, Distinct, Outline Outline Attached Attached -Granulation Amt Small (1-33%) Medium (34-66%) -Granulation Quality N/A [place] -Slough/Fibrin Yes -Necrosis Amt Small (1-33%) Medium (34-66%) -Necrotic Tissue Type Adherent Slough -Structure Exposed N/A N/A -Texture (Zari-wound Skin Appearance) No Abnormality, Callus Assessed -Moisture (Zari-wound Skin Appearance) No Abnormality, Assessed Assessed -Color (Zari-wound Skin Appearance) No Abnormality, Assessed Assessed -Temperature (Zari-wound Skin No Abnormality No Abnormality Appearance) (Pt Warm) (Pt Warm) -Tenderness on Palpation (Zari-wound No No Skin Appearance) -Ulcer Cleansing Rinsed/ Wound Cleanser Irrigated with Saline -Foul Odor after Cleansing No -Anesthetic Used 5% Lidocaine 5% Lidocaine Gel Gel #3 LEFT PLANTAR -Combined with other wound No No -Current Size (cm) - Length 0.2 0.5 -Current Size (cm) - Width 0.2 0.2 -Current Size (cm) - Depth 0.1 0.1 -Total Square Cm 0.04 0.10 -Photo Taken Yes -Epithelialization Small 1-33% -Tunneling No No -Undermining/Tunneling No No -Circular Undermining No No -Exudate Amt None Present Small -Exudate Type Serosanguineous -Wound Margin Distinct, Distinct, Outline Outline Attached Attached -Granulation Amt Medium (34-66%) Medium (34-66%) -Granulation Quality [place] -Slough/Fibrin No Yes -Necrosis Amt Small (1-33%) Medium (34-66%) -Necrotic Tissue Type Adherent Slough -Structure Exposed N/A Fat Layer Exposed -Texture (Zari-wound Skin Appearance) No Abnormality, Callus Assessed -Moisture (Zari-wound Skin Appearance) No Abnormality, Assessed Assessed -Color (Zari-wound Skin Appearance) No Abnormality, Assessed Assessed -Temperature (Zari-wound Skin No Abnormality No Abnormality Appearance) (Pt Warm) (Pt Warm) -Tenderness on Palpation (Zari-wound No No Skin Appearance) -Ulcer Cleansing Rinsed/ Rinsed/ Irrigated with Irrigated with Saline Saline -Foul Odor after Cleansing No -Anesthetic Used 5% Lidocaine 5% Lidocaine Gel Gel #4 RIGHT 4TH TOE -Combined with other wound No No -Current Size (cm) - Length 1 0.2 -Current Size (cm) - Width 0.7 0.2 -Current Size (cm) - Depth 0.1 0.1 -Total Square Cm 0.7 0.04 -Photo Taken Yes -Epithelialization Small 1-33% -Tunneling No No -Undermining/Tunneling No No -Circular Undermining No No -Exudate Amt None Present Small -Exudate Type Serosanguineous -Wound Margin Distinct, Distinct, Outline Outline Attached Attached -Granulation Amt None Present (0 Medium (34-66%) %) -Granulation Quality [place] -Slough/Fibrin Yes -Necrosis Amt None Present (0 Small (1-33%) %) -Necrotic Tissue Type Adherent Slough -Structure Exposed N/A -Texture (Zari-wound Skin Appearance) No Abnormality, Callus Assessed -Moisture (Zari-wound Skin Appearance) No Abnormality, Assessed Assessed -Color (Zari-wound Skin Appearance) Assessed -Temperature (Zari-wound Skin No Abnormality No Abnormality Appearance) (Pt Warm) (Pt Warm) -Tenderness on Palpation (Zari-wound No No Skin Appearance) -Ulcer Cleansing Rinsed/ Rinsed/ Irrigated with Irrigated with Saline Saline -Foul Odor after Cleansing No No -Anesthetic Used 5% Lidocaine 5% Lidocaine Gel Gel #5 RIGHT PLATAR -Combined with other wound No No -Current Size (cm) - Length 0.5 1 -Current Size (cm) - Width 0.6 0.8 -Current Size (cm) - Depth 0.1 0.1 -Total Square Cm 0.30 0.8 -Photo Taken Yes -Epithelialization Medium 34-66% -Tunneling No -Undermining/Tunneling No No -Circular Undermining No No -Exudate Amt None Present Small -Exudate Type Serosanguineous -Wound Margin Distinct, Outline Attached -Granulation Amt None Present (0 Small (1-33%) %) -Granulation Quality [place] -Slough/Fibrin No Yes -Necrosis Amt Small (1-33%) Large (67-100%) -Necrotic Tissue Type Eschar Adherent Slough -Structure Exposed N/A -Texture (Zari-wound Skin Appearance) No Abnormality, Callus Assessed -Moisture (Zari-wound Skin Appearance) No Abnormality, Assessed Assessed -Color (Zari-wound Skin Appearance) No Abnormality, Assessed Assessed -Temperature (Zari-wound Skin No Abnormality No Abnormality Appearance) (Pt Warm) (Pt Warm) -Tenderness on Palpation (Zari-wound No No Skin Appearance) -Ulcer Cleansing Rinsed/ Wound Cleanser Irrigated with Saline -Foul Odor after Cleansing No -Anesthetic Used 5% Lidocaine 5% Lidocaine Gel Gel Point of measurement (cm from the medial 40 instep) Right Ankle (cm) 32 Left Calf (cm) 40.5 Point of Measurement (cm from the medial 23.2 instep) WC - Nurse 2 - General Ulcer CM Notes Start: 05/09/21 13:28 Freq: Status: Active Protocol: Activity Type Activity Date Activity User E-Sign Co-Sign Detail Recorded Client Recorded Date Recorded By Document 05/09/21 14:04 INOCENTE [id number] 05/09/21 14:17 Document 05/16/21 13:48 [id number] 05/16/21 13:57 05/09/21 05/16/21 14:04 13:48 Wound Center Nurse 2 #2 LEFT SECOND TOE -Time 14:06 -Correct Patient Yes No -Correct Side, Site, Position Yes No -Correct Procedure Yes No -Procedure Performed Yes No -Type of Procedure Debridement -Clinical Debridement Subcutaneous -Tissue Removed Subcutaneous -Post Debridement (cm) - Length 0.4 0 -Post Debridement (cm) - Width 0.4 0 -Post Debridement (cm) - Depth 0.1 0 -Total Square (Post) (cm) 0.16 0 -Area of Debridement (cm) - Length 0.4 0 -Area of Debridement (cm) - Width 0.4 0 -Total Square (Area) (cm) 0.16 0 -Tunneling No -Undermining/Tunneling No -Circular Undermining No -Wound/Ulcer Outcome Not Healed Healed- Epithelialized -Ulcer Cleansing Rinsed/ Irrigated with Saline -Foul Odor after Cleansing No -Bioengineered Tissue No -Bleeding Controlled with Pressure -Offloading Yes -Type of Offloading Surgical Shoe -Treatment Response Procedure Tolerated Well -Debridement - Subq, 1st 20sq cm Yes #3 LEFT PLANTAR -Time 14:07 13:52 -Correct Patient Yes Yes -Correct Side, Site, Position Yes Yes -Correct Procedure Yes Yes -Procedure Performed Yes Yes -Type of Procedure Debridement Debridement -Clinical Debridement Subcutaneous Subcutaneous -Tissue Removed Subcutaneous Subcutaneous -Post Debridement (cm) - Length 0.3 0.8 -Post Debridement (cm) - Width 0.2 0.3 -Post Debridement (cm) - Depth 0.1 0.2 -Total Square (Post) (cm) 0.06 0.24 -Area of Debridement (cm) - Length 0.3 0.8 -Area of Debridement (cm) - Width 0.2 0.3 -Total Square (Area) (cm) 0.06 0.24 -Tunneling No No -Undermining/Tunneling No No -Circular Undermining No No -Wound/Ulcer Outcome Not Healed Not Healed -Ulcer Cleansing Rinsed/ Rinsed/ Irrigated with Irrigated with Saline Saline -Foul Odor after Cleansing No No -Bioengineered Tissue No No -Bleeding Controlled with Pressure Pressure -Offloading Yes Yes -Type of Offloading Surgical Shoe Surgical Shoe -Treatment Response Procedure Procedure Tolerated Well Tolerated Well -Debridement - Subq, 1st 20sq cm No Yes #4 RIGHT 4TH TOE -Time 14:08 13:54 -Correct Patient Yes Yes -Correct Side, Site, Position Yes Yes -Correct Procedure Yes Yes -Procedure Performed Yes Yes -Type of Procedure Debridement Debridement -Clinical Debridement Subcutaneous Subcutaneous -Tissue Removed Subcutaneous Subcutaneous -Post Debridement (cm) - Length 1 0.5 -Post Debridement (cm) - Width 0.8 0.5 -Post Debridement (cm) - Depth 0.1 0.1 -Total Square (Post) (cm) 0.8 0.25 -Area of Debridement (cm) - Length 1 0.5 -Area of Debridement (cm) - Width 0.8 0.5 -Total Square (Area) (cm) 0.8 0.25 -Tunneling No No -Undermining/Tunneling No No -Circular Undermining No No -Wound/Ulcer Outcome Not Healed Not Healed -Ulcer Cleansing Rinsed/ Rinsed/ Irrigated with Irrigated with Saline Saline -Foul Odor after Cleansing No No -Bioengineered Tissue No No -Bleeding Controlled with Pressure Pressure -Offloading Yes Yes -Type of Offloading Surgical Shoe Surgical Shoe -Treatment Response Procedure Procedure Tolerated Well Tolerated Well -Debridement - Subq, 1st 20sq cm No No #5 RIGHT PLATAR -Time 14:09 13:54 -Correct Patient Yes Yes -Correct Side, Site, Position Yes Yes -Correct Procedure Yes Yes -Procedure Performed Yes Yes -Type of Procedure Debridement Debridement -Clinical Debridement Subcutaneous Subcutaneous -Tissue Removed Subcutaneous Subcutaneous -Post Debridement (cm) - Length 0.6 1.2 -Post Debridement (cm) - Width 0.6 0.2 -Post Debridement (cm) - Depth 0.1 0.2 -Total Square (Post) (cm) 0.36 0.24 -Area of Debridement (cm) - Length 0.6 1.2 -Area of Debridement (cm) - Width 0.6 0.2 -Total Square (Area) (cm) 0.36 0.24 -Tunneling No No -Undermining/Tunneling No -Circular Undermining No No -Wound/Ulcer Outcome Not Healed Not Healed -Ulcer Cleansing Rinsed/ Rinsed/ Irrigated with Irrigated with Saline Saline -Foul Odor after Cleansing No No -Bioengineered Tissue No No -Bleeding Controlled with Pressure Pressure -Offloading Yes -Type of Offloading Surgical Shoe Surgical Shoe -Treatment Response Procedure Procedure Tolerated Well Tolerated Well -Debridement - Subq, 1st 20sq cm No No Pain Scale: 0-10 Numeric Is Patient Pain Free? Yes Yes - Nurse 3 - General Ulcer D/C NN Start: 05/09/21 13:28 Freq: Status: Active Protocol: Activity Type Activity Date Activity User E-Sign Co-Sign Detail Recorded Client Recorded Date Recorded By Document 05/09/21 14:31 ML [id number] 05/09/21 14:33 ML Document 05/16/21 14:20 RB Desktop 05/16/21 14:21 RB 05/09/21 05/16/21 14:31 14:20 Wound Care Nurse 3 #2 LEFT SECOND TOE -Ulcer Cleansing Rinsed/ Irrigated with Saline -Foul Odor after Cleansing No -Primary Dressing Applied Aquacel AG 4x4 -Primary Dressing Covered/Secured with Dry Gauze & Roll Gauze, Secured with Tape -Aquacel AG 4x4 1 #3 LEFT PLANTAR -Ulcer Cleansing Rinsed/ Rinsed/ Irrigated with Irrigated with Saline Saline -Foul Odor after Cleansing No -Primary Dressing Applied Aquacel AG 4x4 Aquacel AG 4x4 -Primary Dressing Covered/Secured with Dry Gauze & Dry Gauze,Dry Roll Gauze, Gauze & Roll Secured with Gauze,Secured Tape with Tape -Aquacel AG 4x4 0 1 #4 RIGHT 4TH TOE -Ulcer Cleansing Rinsed/ Rinsed/ Irrigated with Irrigated with Saline Saline -Primary Dressing Applied Aquacel AG 4x4 -Other Dressing aquacel ag -Primary Dressing Covered/Secured with Dry Gauze & Dry Gauze,Dry Roll Gauze, Gauze & Roll Secured with Gauze,Secured Tape with Tape -Aquacel AG 4x4 0 #5 RIGHT PLATAR -Ulcer Cleansing Rinsed/ Rinsed/ Irrigated with Irrigated with Saline Saline -Primary Dressing Applied Aquacel AG 4x4 -Other Dressing aquacel ag -Primary Dressing Covered/Secured with Dry Gauze & Dry Gauze,Dry Roll Gauze, Gauze & Roll Secured with Gauze,Secured Tape with Tape -Aquacel AG 4x4 0 Left -Stockings Yes Right -Stockings Yes Treatment Response Procedure Tolerated Well Pain Scale: 0-10 Numeric Is Patient Pain Free? Yes - Visit Discharge Discharge Condition Stable Stable Ambulatory Status Ambulatory Ambulatory Transportation Private Auto Medication Reconcilliation completed & No No provided to patient/care provider Clinical Summary of Care Provided Yes Yes Wound debrided: plantar R4toe, sub R 1st MTH, sub L 1st MTH Wound Grade/Stage: Type of Debridement: Excisional debridement Anesthesia Used: 4% Lidocaine Solution Depth: in the subcutaneous layer Percentage of wound debrided: 100 Instrument Used: #15 blade Tissue Removed: fibrous, devitalized subcutaneous, biofilm, slough Severity: Fat Layer Exposed Amount of bleeding with debridement: Mild Bleeding Controlled with: Pressure Patient tolerated procedure: Patient tolerated procedure well Assessment/Plan Assessment/Plan (1) 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 exposed: CODE(S): L97.512 - 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 exposed (2) Other specified peripheral vascular diseases: CODE(S): I73.89 - Other specified peripheral vascular diseases (3) Venous insufficiency (chronic) (peripheral): CODE(S): I87.2 - Venous insufficiency (chronic) (peripheral) (4) Localized edema: CODE(S): R60.0 - Localized edema (5) Chronic ulcer of left foot with fat layer exposed: CODE(S): L97.522 - Non-pressure chronic ulcer of other part of left foot with fat layer exposed (6) Other hereditary and idiopathic neuropathies: CODE(S): G60.8 - Other hereditary and idiopathic neuropathies PLAN: I reviewed and discussed his case today. Debridement was performed today as noted in the clinical panel to all of the ulcer sites. The following work up and care recommendations were made: Dressing: To change daily with Aquacel Ag Wash: Wash daily with antibacterial soap and water. Avoid soaking Tissue growth optimization: Advanced wound healing product application be considered if she has ongoing delays in healing and if she qualifies. I recommend starting with basic wound care first. Offload: To keep pressure off of the ulcer sites. Bilateral surgical shoes were dispensed with dual density Plastizote off loading liners to keep pressure off of the plantar ulcer sites and toe ulcers. Vascular: I recommend noninvasive vascular studies to screen for any arterial deficiencies or occlusions. This was ordered and the results are pending. Edema: This is fairly controlled at this time. Infection: She is reassured there are no local signs of infection. To monitor. Pain: Controlled Host factors: Her comorbidities are noted. I recommend nutritional supplementation including Angel optimize healing. Diagnostic data: Bilateral foot x-rays were ordered and reviewed. There were no fractures, dislocation, osseous destruction, soft tissue emphysema or foreign bodies noted to bilateral foot. CBC was reviewed and is noted her white blood cell count is 5.3, CMP was reviewed and she is slight reduction in kidney function with a GFR of 59, and a A1c of 5.6%. To return the wound healing center 1 week or call sooner if she has any questions, concerns, or development of infection. I answered all the patient's questions. To return to the wound healing center in 1 week or call sooner if the patient has any questions or concerns. 22 minutes was spent on this encounter. This included face to face and non face to face care including preparing for the visit, reviewing the history, performing the exam, counseling and providing education to the patient, family, or caregiver, ordering medications/test/ procedures if indicated as documented, communicating with other healthcare providers, documenting information in the medical record, interpreting / sharing this information when indicated as documented, and care coordination.
--- NOTE | 2021-05-21 07:54 | VDLE_ITS ---
Reason For Study: Venous insufficeincy RIGHT LEFT CFV is compressible, spontaneous, phasic, CFV is compressible, spontaneous, phasic, competent and demonstrates normal competent, and demonstrates normal augmentation. augmentation. FV is compressible, spontaneous, phasic, FV is compressible, spontaneous, phasic, competent and demonstrates normal competent and demonstrates normal augmentation. augmentation. POP V is compressible, spontaneous, phasic, POP V is compressible, spontaneous, phasic, competent and demonstrates normal competent and demonstrates normal augmentation. augmentation. T/P Trunk is compressible. T/P Trunk is compressible. PTV is compressible. PTV is compressible. RT PerV is compressible. LT PerV is compressible. SFJ is INCOMPETENT and measures 0.71 x 0.75 SFJ is INCOMPETENT and measures 0.96 x 0.85 cm. cm. GSV proximal thigh measures 0.68 x 0.71 cm. GSV proximal thigh measures 0.44 x 0.45 cm. GSV at knee measures 0.46 x 0.47 cm. GSV at knee measures 0.47 x 0.49 cm. GSV INCOMPETENT throughout for greater than GSV INCOMPETENT throughout for greater than 0.5 seconds. 0.5 seconds. ASV mid calf is INCOMPETENT for greater than SSV proximal calf is competent and measures 0.5 seconds and measures 0.35 x 0.31 cm. 0.22 x 0.23 cm. SSV proximal calf is INCOMPETENT for greater than 0.5 seconds and measures 0.22 x 0.23 cm. Procedure This is a venous duplex using B-mode, color flow and spectral Doppler. Exam performed in department. VL/Venous Duplex US - Jose Extrem Interpretation Summary Deep veins of the lower extremities are bilaterally patent and compressible seg mentally. There is no evidence of deep vein thrombosis on either side. Valvular competence appears in tact within the proximal deep venous systems bilaterally. The great saphenous veins appear bila terally patent and compressible segmentally. Sapheno-femoral junctions are bilaterally incompetent . Segmental valvular incompetence is noted within the great saphenous veins bilaterally. The right s mall saphenous vein is patent and incompetent. The left small saphenous vein is patent and competen t. The right accessory saphenous vein in the mid-calf is incompetent. Ordering Physician: Camille Barraza Referring Physician: Angelika Monsivais M.D. Performed By: Brigette Cavazos RVT
--- NOTE | 2021-05-21 07:54 | ART_ITS ---
Reason For Study: PVD Procedure A bilateral lower extremity continuous wave Doppler with analog waveform analysis,segmental pressures,and ankle brachial indexes without exercise. Left Segmental Pressures Left brachial= 135mmHg. Left posterior tibial artery = 165mmHg. Left dorsalis pedis artery = 147mmHg. Left digit = 125 mmHg. The left dorsalis pedis waveforms are triphasic. The left posterior tibial artery waveforms are triphasic. Right Segmental Pressures Right brachial= 132mmHg. Right posterior tibial artery = 163mmHg. Right dorsalis pedis artery = 165mmHg. Right digit = 135 mmHg. The right dorsalis pedis waveforms are triphasic. The right posterior tibial artery waveforms are triphasic. Indices The right ankle brachial index by the dorsalis pedis is 1.22. The right ankle brachial index by the posterior tibial artery is 1.21. The right digital-brachial index is 1.00. The left ankle brachial index by the dorsalis pedis is 1.09. The left ankle brachial index by the posterior tibial artery is 1.22. The left digital-brachial index is 0.93. VL/Lower Ext Art Exam w/o Exercis Interpretation Summary Triphasic Doppler waveforms are noted at ankle level bilaterally. Pulse-volume recordings appear satisfactory at all levels bilaterally, including low-thigh, calf, ankle, and d igital levels. Resting ankle-brachial indices are normal bilaterally. Digital-brachial indices are normal bilaterally. There is no evidence of significant arterial occlusive disease in the lower ext remities bilaterally. Ordering Physician: Camille Barraza Referring Physician: Angelika Monsivais M.D. Performed By: Brigette Cavazos RVT
[2021-05-23 14:24] VITALS: BP 150/69; PULSE 61; RESP 18; TEMP 36.4
[2021-05-23 14:29] VITALS: BP 150/69; PULSE 69; RESP 18
--- NOTE | 2021-05-23 15:03 | PCM.WC.PN ---
History of Present Illness Date of Service: 05/23/21 Chief Complaint: Bilateral foot wounds History of Wound: This 80-year-old female presents to the wound healing center with multiple foot wounds that have been present for couple of months that started out as blisters. She tried to wear her surgical shoe and reports she is very active. She thinks the strap of the surgical shoe may have irritated her left foot and asks if she can discontinue use because she believes her left foot ulcer is healed. Her shoe strap adjustment on the right foot also worked well last week to prevent toe rubbing. She denies fever, chill, nausea, vomiting. She had her lower extremity vascular studies completed and would like to go over the results today. Progress of Wound: All ulcers on left foot are healed Improving right foot Objective Data Objective Data Vital Signs: Vital Signs Temp Pulse Resp BP 97.5 F L 69 18 150/69 H 05/23/21 14:24 05/23/21 14:29 05/23/21 14:29 05/23/21 14:29 Lab / Micro Data Result Diagrams: 05/09/21 15:17 05/09/21 15:17 Physical Exam Const alert and oriented x3 General Appearance: cooperative HEENT normocephalic Extremity Extremity Narrative: Muscle atrophy noted. Dorsal contraction of lesser digits and prominent metatarsal heads with atrophic fat pad to the metatarsal head region also noted. No fluctuance or bogginess. General Extremity: edema and no tenderness to palpation of joints or extremities; Negative for cyanosis Skin General Skin Exam: other Right fourth toe and subfirst metatarsal head ulcer with granular base and no deep tissue exposure. Full epithelialization left foot. No purulence, erythema, streaking, odor, necrosis. ; Negative for erythema Neuro Neuro Narrative: Lack of epicritic sensation light touch Psych cooperative and affect normal Debridement Note Debridement Note Post-Debridement Measurements and Additional Note: Post-Debridement Measurements/Treatment WC - Nurse 1 - General Ulcer Assessment Start: 05/09/21 13:28 Freq: Status: Active Protocol: DEANGELO.LOWEXT Activity Type Activity Date Activity User E-Sign Co-Sign Detail Recorded Client Recorded Date Recorded By Document 05/09/21 13:28 AK [id number] 05/09/21 13:49 AK Document 05/16/21 13:35 RB Desktop 05/16/21 13:36 RB Document 05/23/21 14:24 DL [id number] 05/23/21 14:29 DL Document 05/23/21 14:29 DL [id number] 05/23/21 14:37 DL 05/09/21 05/16/21 05/23/21 13:28 13:35 14:24 WC - Today's Visit Information Type of service Initial Visit Follow-up Visit Follow-up Visit (Physician/SOLE ROUNDER (Physician/SOLE ROUNDER ) ) Arrival Mode Ambulatory Ambulatory Ambulatory Transfer Assistance None None Patient Identification Verified (Name & Yes Yes Yes ) Patient Requires Transmission-Based No No Precautions Safety Precautions NA Vital Signs Temperature (97.8 F-99.1 F) 97.5 F L 97 F L 97.5 F L Temperature Source Temporal Temporal Temporal Pulse Rate (60-100) 68 61 Pulse Location Monitor Monitor Respiratory Rate (12-18) 18 18 Respiratory rate source Observation Observation Blood Pressure (90/60-120/80) 136/69 H 118/47 L 150/69 H Blood Pressure Mean (mm Hg) 91 70 96 Source Monitor Monitor Monitor Position Semi-Fowlers Blood Pressure Location Right Arm History Since Last Visit- (Skip if this is Patient's initial visit) Have you changed medications since your No No No last visit? Any new allergies or adverse reactions No No No Had a fall/change in ADL's that may No No No increase risk of falls Signs or symptoms of abuse and/or No No No neglect since last visit Have you been in the hospital since your No No No last visit? Has dressing in place as prescribed Yes Yes Yes Has compression in place as prescribed N/A No N/A Has offloadiing in place as prescribed N/A No Yes Experienced any changes in pain level or No No No management Left Footwear Regular Shoe Right Footwear Regular Shoe Pain Scale: 0-10 Numeric Is Patient Pain Free? No Yes Yes Lower Extremity Assessment/ Foot Assessment/ Toe Nail Assessment Right -Popliteal Doppler Monophasic -Posterior Tibial Doppler Monophasic -Dorsalis Pedis Doppler Monophasic -Extremity Color Dusky -Hair Growth on Legs No -Hair Growth on Toes No -Temperature of Extremity Warm -Capillary Refill Less than 3 Seconds -Dependent Rubor No -Blanched when Elevated No -Lipodermatosclerosis No -Other Deformity No -Prior Foot Ulcer No -Charcot Joint No -Prior Amputation No -Thick No -Discolored No -Deformed No -Improper Length & Hygeine No Left -Popliteal Doppler Monophasic -Posterior Tibial Doppler Monophasic -Dorsalis Pedis Doppler Monophasic -Extremity Color Dusky -Hair Growth on Legs No -Hair Growth on Toes No -Temperature of Extremity Warm -Capillary Refill Less than 3 Seconds -Dependent Rubor No -Blanched when Elevated No -Lipodermatosclerosis No -Other Deformity No -Prior Foot Ulcer No -Charcot Joint No -Prior Amputation No -Thick No -Discolored No -Deformed No -Improper Length & Hygeine No Neuropathy Assessment Feet - Top Side and Bottom <Entered> (a) 05/23/21 14:29 WC - Today's Visit Information Type of service Follow-up Visit (Physician/SOLE ROUNDER ) Arrival Mode Ambulatory Transfer Assistance None Patient Identification Verified (Name & Yes ) Patient Requires Transmission-Based No Precautions Safety Precautions Vital Signs Temperature (97.8 F-99.1 F) Temperature Source Pulse Rate (60-100) 69 Pulse Location Monitor Respiratory Rate (12-18) 18 Respiratory rate source Observation Blood Pressure (90/60-120/80) 150/69 H Blood Pressure Mean (mm Hg) 96 Source Monitor Position Blood Pressure Location History Since Last Visit- (Skip if this is Patient's initial visit) Have you changed medications since your No last visit? Any new allergies or adverse reactions No Had a fall/change in ADL's that may No increase risk of falls Signs or symptoms of abuse and/or No neglect since last visit Have you been in the hospital since your No last visit? Has dressing in place as prescribed Yes Has compression in place as prescribed Yes Has offloadiing in place as prescribed Yes Experienced any changes in pain level or No management Left Footwear Surgical Shoe with pressure relief insole Right Footwear Surgical Shoe with pressure relief insole Pain Scale: 0-10 Numeric Is Patient Pain Free? Yes Lower Extremity Assessment/ Foot Assessment/ Toe Nail Assessment Right -Popliteal Doppler -Posterior Tibial Doppler -Dorsalis Pedis Doppler -Extremity Color -Hair Growth on Legs -Hair Growth on Toes -Temperature of Extremity -Capillary Refill -Dependent Rubor -Blanched when Elevated -Lipodermatosclerosis -Other Deformity -Prior Foot Ulcer -Charcot Joint -Prior Amputation -Thick -Discolored -Deformed -Improper Length & Hygeine Left -Popliteal Doppler -Posterior Tibial Doppler -Dorsalis Pedis Doppler -Extremity Color -Hair Growth on Legs -Hair Growth on Toes -Temperature of Extremity -Capillary Refill -Dependent Rubor -Blanched when Elevated -Lipodermatosclerosis -Other Deformity -Prior Foot Ulcer -Charcot Joint -Prior Amputation -Thick -Discolored -Deformed -Improper Length & Hygeine Neuropathy Assessment Feet - Top Side and Bottom (a) 1 - - 2 - - 3 - + 4 - + 5 - + 6 - - WC - Nurse 1 - General Ulcer Measurement Start: 05/09/21 13:28 Freq: Status: Active Protocol: Activity Type Activity Date Activity User E-Sign Co-Sign Detail Recorded Client Recorded Date Recorded By Document 05/09/21 13:28 AK [id number] 05/09/21 13:49 AK Document 05/16/21 13:31 RB Desktop 05/16/21 13:35 RB Document 05/23/21 14:29 DL [id number] 05/23/21 14:37 DL 05/09/21 05/16/21 05/23/21 13:28 13:31 14:29 Wound Center Nurse 1 #2 LEFT SECOND TOE -Combined with other wound No -Current Size (cm) - Length 0.3 0.2 -Current Size (cm) - Width 0.3 0.2 -Current Size (cm) - Depth 0.1 0.1 -Total Square Cm 0.09 0.04 -Photo Taken Yes -Epithelialization Small 1-33% -Tunneling No No -Undermining/Tunneling No No -Circular Undermining No No -Exudate Amt None Present Small -Exudate Type Serosanguineous -Wound Margin Distinct, Distinct, Outline Outline Attached Attached -Granulation Amt Small (1-33%) Medium (34-66%) -Granulation Quality N/A [place] -Slough/Fibrin Yes -Necrosis Amt Small (1-33%) Medium (34-66%) -Necrotic Tissue Type Adherent Slough -Structure Exposed N/A N/A -Texture (Zari-wound Skin Appearance) No Abnormality, Callus Assessed -Moisture (Zari-wound Skin Appearance) No Abnormality, Assessed Assessed -Color (Zari-wound Skin Appearance) No Abnormality, Assessed Assessed -Temperature (Zari-wound Skin No Abnormality No Abnormality Appearance) (Pt Warm) (Pt Warm) -Tenderness on Palpation (Zari-wound No No Skin Appearance) -Ulcer Cleansing Rinsed/ Wound Cleanser Irrigated with Saline -Foul Odor after Cleansing No -Anesthetic Used 5% Lidocaine 5% Lidocaine Gel Gel #3 LEFT PLANTAR -Combined with other wound No No -Current Size (cm) - Length 0.2 0.5 0.1 -Current Size (cm) - Width 0.2 0.2 0.1 -Current Size (cm) - Depth 0.1 0.1 0.1 -Total Square Cm 0.04 0.10 0.01 -Photo Taken Yes No -Epithelialization Small 1-33% -Tunneling No No -Undermining/Tunneling No No -Circular Undermining No No -Exudate Amt None Present Small None Present -Exudate Type Serosanguineous -Wound Margin Distinct, Distinct, Thickened Outline Outline Attached Attached -Granulation Amt Medium (34-66%) Medium (34-66%) None Present (0 %) -Granulation Quality [place] Pale -Slough/Fibrin No Yes -Necrosis Amt Small (1-33%) Medium (34-66%) Large (67-100%) -Necrotic Tissue Type Adherent Slough Adherent Slough -Structure Exposed N/A Fat Layer N/A Exposed -Texture (Zari-wound Skin Appearance) No Abnormality, Callus Callus Assessed -Moisture (Zari-wound Skin Appearance) No Abnormality, Assessed Dry/Scaly Assessed -Color (Zari-wound Skin Appearance) No Abnormality, Assessed No Abnormality Assessed -Temperature (Zari-wound Skin No Abnormality No Abnormality No Abnormality Appearance) (Pt Warm) (Pt Warm) (Pt Warm) -Tenderness on Palpation (Zari-wound No No No Skin Appearance) -Ulcer Cleansing Rinsed/ Rinsed/ Rinsed/ Irrigated with Irrigated with Irrigated with Saline Saline Saline -Foul Odor after Cleansing No No -Anesthetic Used 5% Lidocaine 5% Lidocaine 4% Lidocaine Gel Gel Solution #4 RIGHT 4TH TOE -Combined with other wound No No -Current Size (cm) - Length 1 0.2 0.2 -Current Size (cm) - Width 0.7 0.2 0.2 -Current Size (cm) - Depth 0.1 0.1 0.1 -Total Square Cm 0.7 0.04 0.04 -Photo Taken Yes No -Epithelialization Small 1-33% -Tunneling No No -Undermining/Tunneling No No -Circular Undermining No No -Exudate Amt None Present Small None Present -Exudate Type Serosanguineous -Wound Margin Distinct, Distinct, Distinct, Outline Outline Outline Attached Attached Attached -Granulation Amt None Present (0 Medium (34-66%) Small (1-33%) %) -Granulation Quality [place] -Slough/Fibrin Yes -Necrosis Amt None Present (0 Small (1-33%) None Present (0 %) %) -Necrotic Tissue Type Adherent Slough -Structure Exposed N/A N/A -Texture (Zari-wound Skin Appearance) No Abnormality, Callus Callus Assessed -Moisture (Zari-wound Skin Appearance) No Abnormality, Assessed Dry/Scaly Assessed -Color (Zari-wound Skin Appearance) Assessed No Abnormality -Temperature (Zari-wound Skin No Abnormality No Abnormality No Abnormality Appearance) (Pt Warm) (Pt Warm) (Pt Warm) -Tenderness on Palpation (Zari-wound No No No Skin Appearance) -Ulcer Cleansing Rinsed/ Rinsed/ Rinsed/ Irrigated with Irrigated with Irrigated with Saline Saline Saline -Foul Odor after Cleansing No No No -Anesthetic Used 5% Lidocaine 5% Lidocaine 4% Lidocaine Gel Gel Solution #5 RIGHT PLATAR -Combined with other wound No No -Current Size (cm) - Length 0.5 1 0.9 -Current Size (cm) - Width 0.6 0.8 0.3 -Current Size (cm) - Depth 0.1 0.1 0.1 -Total Square Cm 0.30 0.8 0.27 -Photo Taken Yes No -Epithelialization Medium 34-66% -Tunneling No -Undermining/Tunneling No No -Circular Undermining No No -Exudate Amt None Present Small Small -Exudate Type Serosanguineous Serosanguineous -Wound Margin Distinct, Thickened Outline Attached -Granulation Amt None Present (0 Small (1-33%) Large (67-100%) %) -Granulation Quality [place] -Slough/Fibrin No Yes -Necrosis Amt Small (1-33%) Large (67-100%) Small (1-33%) -Necrotic Tissue Type Eschar Adherent Slough Adherent Slough -Structure Exposed N/A N/A -Texture (Zari-wound Skin Appearance) No Abnormality, Callus Callus,Scarring Assessed -Moisture (Zari-wound Skin Appearance) No Abnormality, Assessed Dry/Scaly Assessed -Color (Zari-wound Skin Appearance) No Abnormality, Assessed No Abnormality Assessed -Temperature (Zari-wound Skin No Abnormality No Abnormality No Abnormality Appearance) (Pt Warm) (Pt Warm) (Pt Warm) -Tenderness on Palpation (Zari-wound No No No Skin Appearance) -Ulcer Cleansing Rinsed/ Wound Cleanser Rinsed/ Irrigated with Irrigated with Saline Saline -Foul Odor after Cleansing No No -Anesthetic Used 5% Lidocaine 5% Lidocaine 4% Lidocaine Gel Gel Solution Point of measurement (cm from the medial 40 instep) Right Ankle (cm) 32 Left Calf (cm) 40.5 Point of Measurement (cm from the medial 23.2 instep) WC - Nurse 2 - General Ulcer CM Notes Start: 05/09/21 13:28 Freq: Status: Active Protocol: Activity Type Activity Date Activity User E-Sign Co-Sign Detail Recorded Client Recorded Date Recorded By Document 05/09/21 14:04 [id number] 05/09/21 14:17 Document 05/16/21 13:48 [id number] 05/16/21 13:57 JF Document 05/23/21 14:24 DL [id number] 05/23/21 14:29 DL Document 05/23/21 14:51 JF [id number] 05/23/21 15:00 JF 05/09/21 05/16/21 05/23/21 14:04 13:48 14:24 Wound Center Nurse 2 #2 LEFT SECOND TOE -Time 14:06 -Correct Patient Yes No -Correct Side, Site, Position Yes No -Correct Procedure Yes No -Procedure Performed Yes No -Type of Procedure Debridement -Clinical Debridement Subcutaneous -Tissue Removed Subcutaneous -Post Debridement (cm) - Length 0.4 0 -Post Debridement (cm) - Width 0.4 0 -Post Debridement (cm) - Depth 0.1 0 -Total Square (Post) (cm) 0.16 0 -Area of Debridement (cm) - Length 0.4 0 -Area of Debridement (cm) - Width 0.4 0 -Total Square (Area) (cm) 0.16 0 -Tunneling No -Undermining/Tunneling No -Circular Undermining No -Wound/Ulcer Outcome Not Healed Healed- Epithelialized -Ulcer Cleansing Rinsed/ Irrigated with Saline -Foul Odor after Cleansing No -Bioengineered Tissue No -Bleeding Controlled with Pressure -Offloading Yes -Type of Offloading Surgical Shoe -Treatment Response Procedure Tolerated Well -Debridement - Subq, 1st 20sq cm Yes #3 LEFT PLANTAR -Time 14:07 13:52 -Correct Patient Yes Yes -Correct Side, Site, Position Yes Yes -Correct Procedure Yes Yes -Procedure Performed Yes Yes -Type of Procedure Debridement Debridement -Clinical Debridement Subcutaneous Subcutaneous -Tissue Removed Subcutaneous Subcutaneous -Post Debridement (cm) - Length 0.3 0.8 -Post Debridement (cm) - Width 0.2 0.3 -Post Debridement (cm) - Depth 0.1 0.2 -Total Square (Post) (cm) 0.06 0.24 -Area of Debridement (cm) - Length 0.3 0.8 -Area of Debridement (cm) - Width 0.2 0.3 -Total Square (Area) (cm) 0.06 0.24 -Tunneling No No -Undermining/Tunneling No No -Circular Undermining No No -Wound/Ulcer Outcome Not Healed Not Healed -Ulcer Cleansing Rinsed/ Rinsed/ Irrigated with Irrigated with Saline Saline -Foul Odor after Cleansing No No -Bioengineered Tissue No No -Bleeding Controlled with Pressure Pressure -Offloading Yes Yes -Type of Offloading Surgical Shoe Surgical Shoe -Treatment Response Procedure Procedure Tolerated Well Tolerated Well -Debridement - Subq, 1st 20sq cm No Yes #4 RIGHT 4TH TOE -Time 14:08 13:54 -Correct Patient Yes Yes -Correct Side, Site, Position Yes Yes -Correct Procedure Yes Yes -Procedure Performed Yes Yes -Type of Procedure Debridement Debridement -Clinical Debridement Subcutaneous Subcutaneous -Tissue Removed Subcutaneous Subcutaneous -Post Debridement (cm) - Length 1 0.5 -Post Debridement (cm) - Width 0.8 0.5 -Post Debridement (cm) - Depth 0.1 0.1 -Total Square (Post) (cm) 0.8 0.25 -Area of Debridement (cm) - Length 1 0.5 -Area of Debridement (cm) - Width 0.8 0.5 -Total Square (Area) (cm) 0.8 0.25 -Tunneling No No -Undermining/Tunneling No No -Circular Undermining No No -Wound/Ulcer Outcome Not Healed Not Healed -Ulcer Cleansing Rinsed/ Rinsed/ Irrigated with Irrigated with Saline Saline -Foul Odor after Cleansing No No -Bioengineered Tissue No No -Bleeding Controlled with Pressure Pressure -Offloading Yes Yes -Type of Offloading Surgical Shoe Surgical Shoe -Treatment Response Procedure Procedure Tolerated Well Tolerated Well -Debridement - Subq, 1st 20sq cm No No #5 RIGHT PLATAR -Time 14:09 13:54 -Correct Patient Yes Yes -Correct Side, Site, Position Yes Yes -Correct Procedure Yes Yes -Procedure Performed Yes Yes -Type of Procedure Debridement Debridement -Clinical Debridement Subcutaneous Subcutaneous -Tissue Removed Subcutaneous Subcutaneous -Post Debridement (cm) - Length 0.6 1.2 -Post Debridement (cm) - Width 0.6 0.2 -Post Debridement (cm) - Depth 0.1 0.2 -Total Square (Post) (cm) 0.36 0.24 -Area of Debridement (cm) - Length 0.6 1.2 -Area of Debridement (cm) - Width 0.6 0.2 -Total Square (Area) (cm) 0.36 0.24 -Tunneling No No -Undermining/Tunneling No -Circular Undermining No No -Wound/Ulcer Outcome Not Healed Not Healed -Ulcer Cleansing Rinsed/ Rinsed/ Irrigated with Irrigated with Saline Saline -Foul Odor after Cleansing No No -Bioengineered Tissue No No -Bleeding Controlled with Pressure Pressure -Offloading Yes -Type of Offloading Surgical Shoe Surgical Shoe -Treatment Response Procedure Procedure Tolerated Well Tolerated Well -Debridement - Subq, 20sq cm No No Pain Scale: 0-10 Numeric Is Patient Pain Free? Yes Yes Yes 05/23/21 14:51 Wound Center Nurse 2 #2 LEFT SECOND TOE -Time -Correct Patient -Correct Side, Site, Position -Correct Procedure -Procedure Performed -Type of Procedure -Clinical Debridement -Tissue Removed -Post Debridement (cm) - Length -Post Debridement (cm) - Width -Post Debridement (cm) - Depth -Total Square (Post) (cm) -Area of Debridement (cm) - Length -Area of Debridement (cm) - Width -Total Square (Area) (cm) -Tunneling -Undermining/Tunneling -Circular Undermining -Wound/Ulcer Outcome -Ulcer Cleansing -Foul Odor after Cleansing -Bioengineered Tissue -Bleeding Controlled with -Offloading -Type of Offloading -Treatment Response -Debridement - Subq, 1st 20sq cm #3 LEFT PLANTAR -Time -Correct Patient No -Correct Side, Site, Position No -Correct Procedure No -Procedure Performed No -Type of Procedure -Clinical Debridement -Tissue Removed -Post Debridement (cm) - Length 0 -Post Debridement (cm) - Width 0 -Post Debridement (cm) - Depth 0 -Total Square (Post) (cm) 0 -Area of Debridement (cm) - Length 0 -Area of Debridement (cm) - Width 0 -Total Square (Area) (cm) 0 -Tunneling -Undermining/Tunneling -Circular Undermining -Wound/Ulcer Outcome Healed- Epithelialized -Ulcer Cleansing -Foul Odor after Cleansing -Bioengineered Tissue -Bleeding Controlled with -Offloading -Type of Offloading -Treatment Response -Debridement - Subq, 1st 20sq cm #4 RIGHT 4TH TOE -Time 14:56 -Correct Patient Yes -Correct Side, Site, Position Yes -Correct Procedure Yes -Procedure Performed Yes -Type of Procedure Debridement -Clinical Debridement Subcutaneous -Tissue Removed Subcutaneous -Post Debridement (cm) - Length 0.4 -Post Debridement (cm) - Width 0.3 -Post Debridement (cm) - Depth 0.1 -Total Square (Post) (cm) 0.12 -Area of Debridement (cm) - Length 0.4 -Area of Debridement (cm) - Width 0.3 -Total Square (Area) (cm) 0.12 -Tunneling No -Undermining/Tunneling No -Circular Undermining No -Wound/Ulcer Outcome Not Healed -Ulcer Cleansing Rinsed/ Irrigated with Saline -Foul Odor after Cleansing No -Bioengineered Tissue No -Bleeding Controlled with Pressure -Offloading No -Type of Offloading -Treatment Response Procedure Tolerated Well -Debridement - Subq, 1st 20sq cm Yes #5 RIGHT PLATAR -Time 14:57 -Correct Patient Yes -Correct Side, Site, Position Yes -Correct Procedure Yes -Procedure Performed Yes -Type of Procedure Debridement -Clinical Debridement Subcutaneous -Tissue Removed Subcutaneous -Post Debridement (cm) - Length 1 -Post Debridement (cm) - Width 0.3 -Post Debridement (cm) - Depth 0.2 -Total Square (Post) (cm) 0.3 -Area of Debridement (cm) - Length 1 -Area of Debridement (cm) - Width 0.3 -Total Square (Area) (cm) 0.3 -Tunneling No -Undermining/Tunneling No -Circular Undermining No -Wound/Ulcer Outcome Not Healed -Ulcer Cleansing Rinsed/ Irrigated with Saline -Foul Odor after Cleansing No -Bioengineered Tissue No -Bleeding Controlled with Pressure -Offloading No -Type of Offloading -Treatment Response Procedure Tolerated Well -Debridement - Subq, 1st 20sq cm No Pain Scale: 0-10 Numeric Is Patient Pain Free? Yes WC - Nurse 3 - General Ulcer D/C NN Start: 05/09/21 13:28 Freq: Status: Active Protocol: Activity Type Activity Date Activity User E-Sign Co-Sign Detail Recorded Client Recorded Date Recorded By Document 05/09/21 14:31 ML [id number] 05/09/21 14:33 ML Document 05/16/21 14:20 RB Desktop 05/16/21 14:21 RB 05/09/21 05/16/21 14:31 14:20 Wound Care Nurse 3 #2 LEFT SECOND TOE -Ulcer Cleansing Rinsed/ Irrigated with Saline -Foul Odor after Cleansing No -Primary Dressing Applied Aquacel AG 4x4 -Primary Dressing Covered/Secured with Dry Gauze & Roll Gauze, Secured with Tape -Aquacel AG 4x4 1 #3 LEFT PLANTAR -Ulcer Cleansing Rinsed/ Rinsed/ Irrigated with Irrigated with Saline Saline -Foul Odor after Cleansing No -Primary Dressing Applied Aquacel AG 4x4 Aquacel AG 4x4 -Primary Dressing Covered/Secured with Dry Gauze & Dry Gauze,Dry Roll Gauze, Gauze & Roll Secured with Gauze,Secured Tape with Tape -Aquacel AG 4x4 0 1 #4 RIGHT 4TH TOE -Ulcer Cleansing Rinsed/ Rinsed/ Irrigated with Irrigated with Saline Saline -Primary Dressing Applied Aquacel AG 4x4 -Other Dressing aquacel ag -Primary Dressing Covered/Secured with Dry Gauze & Dry Gauze,Dry Roll Gauze, Gauze & Roll Secured with Gauze,Secured Tape with Tape -Aquacel AG 4x4 0 #5 RIGHT PLATAR -Ulcer Cleansing Rinsed/ Rinsed/ Irrigated with Irrigated with Saline Saline -Primary Dressing Applied Aquacel AG 4x4 -Other Dressing aquacel ag -Primary Dressing Covered/Secured with Dry Gauze & Dry Gauze,Dry Roll Gauze, Gauze & Roll Secured with Gauze,Secured Tape with Tape -Aquacel AG 4x4 0 Left -Stockings Yes Right -Stockings Yes Treatment Response Procedure Tolerated Well Pain Scale: 0-10 Numeric Is Patient Pain Free? Yes WC - Visit Discharge Discharge Condition Stable Stable Ambulatory Status Ambulatory Ambulatory Transportation Private Auto Medication Reconcilliation completed & No No provided to patient/care provider Clinical Summary of Care Provided Yes Yes Assessment/Plan Assessment/Plan (1) 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 exposed: CODE(S): L97.512 - 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 exposed (2) Other specified peripheral vascular diseases: CODE(S): I73.89 - Other specified peripheral vascular diseases (3) Venous insufficiency (chronic) (peripheral): CODE(S): I87.2 - Venous insufficiency (chronic) (peripheral) (4) Localized edema: CODE(S): R60.0 - Localized edema (5) Chronic ulcer of left foot with fat layer exposed: CODE(S): L97.522 - Non-pressure chronic ulcer of other part of left foot with fat layer exposed (6) Other hereditary and idiopathic neuropathies: CODE(S): G60.8 - Other hereditary and idiopathic neuropathies PLAN: Procedure- Location: right sub 1st metatarsal head and fourth toe grade 1 Excisional debridement performed Anesthesia: 5% lidocaine plain Debridement layer: subcutaneous Amount of debridement: 100% Instrumentation used: 15 blade Tissue debrided: fibrous, devitalized subcutaneous, biofilm, slough Exposed tissue: fat layer Bleeding: mild Hemostasis controlled: pressure The patient tolerated the procedure well I reviewed and discussed her case today. Debridement was performed today as noted in the clinical panel to all of the ulcer sites. The following work up and care recommendations were made: Dressing: To change daily with Aquacel Ag Wash: Wash daily with antibacterial soap and water. Avoid soaking Tissue growth optimization: Advanced wound healing product application be considered if she has ongoing delays in healing and if she qualifies. I recommend starting with basic wound care first. Offload: To keep pressure off of the ulcer sites. Bilateral surgical shoes were dispensed with dual density Plastizote off loading liners to keep pressure off of the plantar ulcer sites and toe ulcers. To cross straps to avoid direct pressure over the entire length of the toes. An offloading felt pad was also added to the left surgical shoe to prevent lateral foot irritation. She is reassured no new wound or blister objectively noted cam left foot. She also can transition back into her regular protective shoe on the left side will monitor close for ulcer reopening. Vascular: I recommend noninvasive vascular studies to screen for any arterial deficiencies or occlusions. Arterial studies from [facility] reviewed from 05-21-21 with bilateral triphasic Doppler waveforms, pulse volume recordings within satisfactory levels, normal ABIs and normal TBI's. Edema: This is fairly controlled at this time. To wear single-layer Tubigrip and elevate periodically through the day. Her venous Doppler with reflux evaluation did not demonstrate deep venous thrombosis. There was saphenofemoral junction incompetence, segmental valvular incompetence within the great saphenous vein bilateral, right small saphenous vein incompetence, and right accessory saphenous vein incompetence. If lack of healing is noted vascular venous referral will be provided see if intervention may aid in her ulcer healing process. Infection: She is reassured there are no local signs of infection. To monitor. Pain: Controlled Host factors: Her comorbidities are noted. I recommend nutritional supplementation including Angel optimize healing. Diagnostic data: Bilateral foot x-rays were ordered and reviewed. There were no fractures, dislocation, osseous destruction, soft tissue emphysema or foreign bodies noted to bilateral foot. CBC was reviewed and is noted her white blood cell count is 5.3, CMP was reviewed and she is slight reduction in kidney function with a GFR of 59, and a A1c of 5.6%. To return the wound healing center 1 week or call sooner if she has any questions, concerns, or development of infection. I answered all the patient's questions. To return to the wound healing center in 1 week or call sooner if the patient has any questions or concerns. The medical decision making level is limited based on data including the review of prior external notes, review of a prior test, or ordering a test. The problems addressed require a low medical decision making level which includes two or more minor problems, a stable chronic illness, or an acute uncomplicated illness or injury.
== END 2021-06-05 23:59 ==
LOC: WC 14:15
PROVIDERS: PCP Internal Medicine; Referring Provider Podiatrist; Visit Provider Podiatrist
DX: L97.512 Non-pressure chronic ulcer of other part of right foot with fat layer exposed (principal); L97.522 Non-pressure chronic ulcer of other part of left foot with fat layer exposed; I73.89 Other specified peripheral vascular diseases; I87.2 Venous insufficiency (chronic) (peripheral); R60.0 Localized edema; G60.8 Other hereditary and idiopathic neuropathies; M77.31 Calcaneal spur, right foot; Z79.899 Other long term (current) drug therapy
CPT/HCPCS: 11042; 36415; 73630; 80053; 83036; 85025; 93923; 93970; 99213; G0463

== ENCOUNTER 2021-06-20 14:15 | Outpatient (RCR) | payer MEDICARE, SELFPAY ==
[2021-06-06 00:17] VITALS: BP 150/69; PULSE 69; RESP 18; TEMP 36.4
[2021-06-06 14:27] VITALS: BP 146/64; PULSE 69; TEMP 36.2
--- NOTE | 2021-06-06 17:32 | PCM.WC.PN ---
History of Present Illness Date of Service: 06/06/21 Chief Complaint: Bilateral foot wounds History of Wound: This 80-year-old female presents to the wound healing center with multiple foot ulcers. She tried to wear her surgical shoe to reduce ulcer pressure. She denies fever, chill, nausea, vomiting. She denies new concerns or injuries today. Progress of Wound: improving Objective Data Objective Data Vital Signs: Vital Signs Temp Pulse Resp BP 97.2 F L 69 18 146/64 H 06/06/21 14:27 06/06/21 14:27 06/06/21 00:17 06/06/21 14:27 Physical Exam Const alert and oriented x3 General Appearance: cooperative HEENT normocephalic Extremity Extremity Narrative: Muscle atrophy noted. Dorsal contraction of lesser digits and prominent metatarsal heads with atrophic fat pad to the metatarsal head region also noted. No fluctuance or bogginess. General Extremity: edema and no tenderness to palpation of joints or extremities; Negative for cyanosis Skin General Skin Exam: other; Negative for erythema Wound Narrative: right sub 1st metatarsal head and left lateral fifth metatarsal head ulcers are granular base. there is no deep probing, erythema, streaking, purulence, or odor noted. the adjacent skin is hairless and atrophic. Neuro Neuro Narrative: Lack of epicritic sensation light touch Psych cooperative and affect normal Debridement Note Debridement Note Wound debrided: right sub 1 metatarsal head and left lateral 5 metatarsal head Wound Grade/Stage: 1 Type of Debridement: Excisional debridement Anesthesia Used: 4% Lidocaine Solution Depth: in the subcutaneous layer Percentage of wound debrided: 100 Instrument Used: #15 blade Tissue Removed: fibrous, devitalized subcutaneous, biofilm, slough Severity: Fat Layer Exposed Amount of bleeding with debridement: Mild Bleeding Controlled with: Pressure Patient tolerated procedure: Patient tolerated procedure well Post-Debridement Measurements and Additional Note: Post-Debridement Measurements/Treatment DEANGELO - Nurse 1 - General Ulcer Assessment Start: 06/06/21 14:27 Freq: Status: Active Protocol: MANUELITO Activity Type Activity Date Activity User E-Sign Co-Sign Detail Recorded Client Recorded Date Recorded By Document 06/06/21 14:27 MAREK [id number] 06/06/21 14:32 MAREK 06/06/21 14:27 - Today's Visit Information Type of service Follow-up Visit (Physician/[employer] ) Arrival Mode Ambulatory Patient Identification Verified (Name & Yes ) Vital Signs Temperature (97.8 F-99.1 F) 97.2 F L Temperature Source Temporal Pulse Rate (60-100) 69 Pulse Location Monitor Blood Pressure (90/60-120/80) 146/64 H Blood Pressure Mean (mm Hg) 91 Source Monitor History Since Last Visit- (Skip if this is Patient's initial visit) Have you changed medications since your No last visit? Any new allergies or adverse reactions No Had a fall/change in ADL's that may No increase risk of falls Signs or symptoms of abuse and/or No neglect since last visit Have you been in the hospital since your No last visit? Has dressing in place as prescribed Yes Has compression in place as prescribed Yes Has offloadiing in place as prescribed Yes Experienced any changes in pain level or No management Left Footwear Regular Shoe Right Footwear Regular Shoe WC - Nurse 1 - General Ulcer Measurement Start: 06/06/21 14:27 Freq: Status: Active Protocol: Activity Type Activity Date Activity User E-Sign Co-Sign Detail Recorded Client Recorded Date Recorded By Document 06/06/21 14:27 MAREK [id number] 06/06/21 14:32 MAREK 06/06/21 14:27 Wound Center Nurse 1 #4 RIGHT 4TH TOE -Combined with other wound No -Current Size (cm) - Length 0.1 -Current Size (cm) - Width 0.1 -Current Size (cm) - Depth 0.1 -Total Square Cm 0.01 -Photo Taken No -Undermining/Tunneling No -Circular Undermining No -Granulation Quality N/A -Slough/Fibrin No -Necrosis Amt None Present (0 %) -Structure Exposed N/A -Texture (Zari-wound Skin Appearance) Assessed, Scarring -Moisture (Zari-wound Skin Appearance) Assessed,Dry/ Scaly -Color (Zari-wound Skin Appearance) No Abnormality, Assessed -Temperature (Zari-wound Skin No Abnormality Appearance) (Pt Warm) -Ulcer Cleansing Rinsed/ Irrigated with Saline -Foul Odor after Cleansing No -Anesthetic Used 4% Lidocaine Solution #5 RIGHT PLATAR -Combined with other wound No -Current Size (cm) - Length 0.2 -Current Size (cm) - Width 0.3 -Current Size (cm) - Depth 0.1 -Total Square Cm 0.06 -Photo Taken No -Tunneling No -Undermining/Tunneling No -Circular Undermining No -Change in Wound Grade/Stage No -Wound Margin Distinct, Outline Attached -Granulation Amt None Present (0 %) -Slough/Fibrin Yes -Necrosis Amt Large (67-100%) -Necrotic Tissue Type Eschar -Structure Exposed N/A -Texture (Zari-wound Skin Appearance) No Abnormality, Assessed -Moisture (Zari-wound Skin Appearance) No Abnormality, Assessed -Color (Zari-wound Skin Appearance) Assessed, Hemosiderin Staining -Temperature (Zari-wound Skin No Abnormality Appearance) (Pt Warm) -Tenderness on Palpation (Zari-wound Yes Skin Appearance) -Ulcer Cleansing Rinsed/ Irrigated with Saline -Foul Odor after Cleansing No -Anesthetic Used 5% Lidocaine Gel Right Calf (cm) 38.5 Right Ankle (cm) 22 Left Calf (cm) 38.5 Left Ankle (cm) 21 WC - Nurse 2 - General Ulcer CM Notes Start: 06/06/21 14:27 Freq: Status: Active Protocol: Activity Type Activity Date Activity User E-Sign Co-Sign Detail Recorded Client Recorded Date Recorded By Document 06/06/21 14:57 [id number] 06/06/21 15:05 06/06/21 14:57 Wound Center Nurse 2 6-left 5th metatarsal -Time 15:03 -Correct Patient Yes -Correct Side, Site, Position Yes -Correct Procedure Yes -Procedure Performed Yes -Type of Procedure Incision & Drainage -Clinical Debridement Subcutaneous -Tissue Removed Subcutaneous -Post Debridement (cm) - Length 0.3 -Post Debridement (cm) - Width 0.7 -Post Debridement (cm) - Depth 0.2 -Total Square (Post) (cm) 0.21 -Area of Debridement (cm) - Length 0.3 -Area of Debridement (cm) - Width 0.7 -Total Square (Area) (cm) 0.21 -Tunneling No -Undermining/Tunneling No -Circular Undermining No -Wound/Ulcer Outcome Not Healed -Ulcer Cleansing Rinsed/ Irrigated with Saline -Foul Odor after Cleansing No -Bioengineered Tissue No -Bleeding Controlled with Pressure -Offloading Yes -Type of Offloading Surgical Shoe -Treatment Response Procedure Tolerated Well -Debridement - Subq, 1st 20sq cm No #4 RIGHT 4TH TOE -Time 14:57 -Correct Patient No -Correct Side, Site, Position No -Correct Procedure No -Procedure Performed No -Post Debridement (cm) - Length 0 -Post Debridement (cm) - Width 0 -Post Debridement (cm) - Depth 0 -Total Square (Post) (cm) 0 -Area of Debridement (cm) - Length 0 -Area of Debridement (cm) - Width 0 -Total Square (Area) (cm) 0 -Tunneling No -Undermining/Tunneling No -Circular Undermining No -Wound/Ulcer Outcome Healed- Epithelialized #5 RIGHT PLATAR -Time 14:59 -Correct Patient Yes -Correct Side, Site, Position Yes -Correct Procedure Yes -Procedure Performed Yes -Type of Procedure Debridement -Clinical Debridement Subcutaneous -Tissue Removed Subcutaneous -Post Debridement (cm) - Length 1 -Post Debridement (cm) - Width 0.3 -Post Debridement (cm) - Depth 0.1 -Total Square (Post) (cm) 0.3 -Area of Debridement (cm) - Length 1 -Area of Debridement (cm) - Width 0.3 -Total Square (Area) (cm) 0.3 -Tunneling No -Undermining/Tunneling No -Circular Undermining No -Wound/Ulcer Outcome Not Healed -Ulcer Cleansing Rinsed/ Irrigated with Saline -Foul Odor after Cleansing No -Bioengineered Tissue No -Bleeding Controlled with Pressure -Offloading Yes -Type of Offloading Surgical Shoe -Treatment Response Procedure Tolerated Well -Debridement - Subq, 1st 20sq cm Yes Pain Scale: 0-10 Numeric Is Patient Pain Free? Yes WC - Nurse 3 - General Ulcer D/C NN Start: 06/06/21 14:27 Freq: Status: Active Protocol: Activity Type Activity Date Activity User E-Sign Co-Sign Detail Recorded Client Recorded Date Recorded By Document 06/06/21 15:26 [facility] [id number] 06/06/21 15:27 [facility] 06/06/21 15:26 Wound Care Nurse 3 6-left 5th metatarsal -Ulcer Cleansing Rinsed/ Irrigated with Saline -Foul Odor after Cleansing No -Primary Dressing Applied Aquacel AG 2x2 -Primary Dressing Covered/Secured with Dry Gauze & Roll Gauze, Secured with Tape -Aquacel AG 2x2 1 #5 RIGHT PLATAR -Ulcer Cleansing Rinsed/ Irrigated with Saline -Foul Odor after Cleansing No -Primary Dressing Applied Aquacel AG 2x2 -Primary Dressing Covered/Secured with Dry Gauze & Roll Gauze, Secured with Tape -Aquacel AG 2x2 0 Right -Other OWN COMPRESSION STOCKING APPLIED Left -Other OWN COMPRESSION STOCKING APPLIED Treatment Response Procedure Tolerated Well Pain Scale: 0-10 Numeric Is Patient Pain Free? Yes WC - Visit Discharge Discharge Condition Stable Ambulatory Status Ambulatory Transportation Private Auto Assessment/Plan Assessment/Plan (1) 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 exposed: CODE(S): L97.512 - 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 exposed (2) Other specified peripheral vascular diseases: CODE(S): I73.89 - Other specified peripheral vascular diseases (3) Venous insufficiency (chronic) (peripheral): CODE(S): I87.2 - Venous insufficiency (chronic) (peripheral) (4) Localized edema: CODE(S): R60.0 - Localized edema (5) Chronic ulcer of left foot with fat layer exposed: CODE(S): L97.522 - Non-pressure chronic ulcer of other part of left foot with fat layer exposed (6) Other hereditary and idiopathic neuropathies: CODE(S): G60.8 - Other hereditary and idiopathic neuropathies PLAN: I reviewed and discussed her case today. Debridement was performed today as noted in the clinical panel to all of the ulcer sites. The following work up and care recommendations were made: Dressing: To change daily with Aquacel Ag Wash: Wash daily with antibacterial soap and water. Avoid soaking Tissue growth optimization: Advanced wound healing product application be considered if she has ongoing delays in healing and if she qualifies. She is making good healing progress so far. Offload: To keep pressure off of the ulcer sites. Bilateral surgical shoes were dispensed with dual density Plastizote off loading liners to keep pressure off of the plantar ulcer sites and toe ulcers. To cross straps to avoid direct pressure over the entire length of the toes. An offloading felt pad was also added to the left surgical shoe to prevent lateral foot irritation. She is reassured no new wound or blister objectively noted cam left foot. Vascular: I recommend noninvasive vascular studies to screen for any arterial deficiencies or occlusions. Arterial studies from [facility] reviewed from 05-21-21 with bilateral triphasic Doppler waveforms, pulse volume recordings within satisfactory levels, normal ABIs and normal TBI's. Edema: This is fairly controlled at this time. To wear single-layer Tubigrip and elevate periodically through the day. Her venous Doppler with reflux evaluation did not demonstrate deep venous thrombosis. There was saphenofemoral junction incompetence, segmental valvular incompetence within the great saphenous vein bilateral, right small saphenous vein incompetence, and right accessory saphenous vein incompetence. If lack of healing is noted vascular venous referral will be provided see if intervention may aid in her ulcer healing process.To wear compression stockings as advised. I offered her a vein specialist referral and she will consider this in the future. Infection: She is reassured there are no local signs of infection. To monitor. Pain: Controlled Host factors: Her comorbidities are noted. I recommend nutritional supplementation including Angel optimize healing. Diagnostic data: Bilateral foot x-rays were ordered and reviewed. There were no fractures, dislocation, osseous destruction, soft tissue emphysema or foreign bodies noted to bilateral foot. CBC was reviewed and is noted her white blood cell count is 5.3, CMP was reviewed and she is slight reduction in kidney function with a GFR of 59, and a A1c of 5.6%. To return the wound healing center 1 to 2 weeks or call sooner if she has any questions, concerns, or development of infection. I answered all the patient's questions.
[2021-06-20 14:09] VITALS: BP 142/47; PULSE 67; RESP 20; TEMP 36.1
--- NOTE | 2021-06-20 14:37 | PCM.WC.PN ---
History of Present Illness Date of Service: 06/20/21 Chief Complaint: Bilateral foot wounds History of Wound: This 80-year-old female presents to the wound healing center with multiple foot ulcers. She tried to wear her surgical shoe to reduce ulcer pressure. She denies fever, chill, nausea, vomiting. She relates she has a wound that reopened on her right fourth toe when she is was able to squeeze drainage out. She denies odor no redness. She denies drainage to the left foot today. Progress of Wound: Healed left foot New right fourth toe ulcer Stable plantar right foot ulcer Objective Data Objective Data Vital Signs: Vital Signs Temp Pulse Resp BP 96.9 F L 67 20 H 142/47 H 06/20/21 14:06/20/21 14:06/20/21 14:06/20/21 14:09 Physical Exam Extremity Extremity Narrative: Muscle atrophy noted. Dorsal contraction of lesser digits and prominent metatarsal heads with atrophic fat pad to the metatarsal head region also noted. No fluctuance or bogginess. Skin Wound Narrative: right sub 1st metatarsal head and plantar right fourth toe ulcer are granular base. there is no deep probing, erythema, streaking, purulence, or odor noted. the adjacent skin is hairless and atrophic. Full epithelialization is noted to the lateral left foot Neuro Neuro Narrative: Lack of epicritic sensation light touch Debridement Note Debridement Note Wound debrided: plantar right fourth toe and sub 1st metatarsal head Wound Grade/Stage: Type of Debridement: Excisional debridement Anesthesia Used: 4% Lidocaine Solution Depth: in the subcutaneous layer Percentage of wound debrided: 100 Instrument Used: #15 blade Tissue Removed: fibrous, devitalized subcutaneous, biofilm, slough Severity: Fat Layer Exposed Amount of bleeding with debridement: Mild Bleeding Controlled with: Pressure Patient tolerated procedure: Patient tolerated procedure well Post-Debridement Measurements and Additional Note: Post-Debridement Measurements/Treatment DEANGELO - Nurse 1 - General Ulcer Assessment Start: 06/06/21 14:27 Freq: Status: Active Protocol: MANUELITO Activity Type Activity Date Activity User E-Sign Co-Sign Detail Recorded Client Recorded Date Recorded By Document 06/06/21 14:27 AK [id number] 06/06/21 14:32 AK Document 06/20/21 14:09 DL [id number] 06/20/21 14:15 DL 06/06/21 06/20/21 14:27 14:09 - Today's Visit Information Type of service Follow-up Visit Follow-up Visit (Physician/FIELD INSTALLATION TECHNICIAN (Physician/FIELD INSTALLATION TECHNICIAN ) ) Arrival Mode Ambulatory Ambulatory Transfer Assistance None Patient Identification Verified (Name & Yes Yes ) Patient Requires Transmission-Based No Precautions Vital Signs Temperature (97.8 F-99.1 F) 97.2 F L 96.9 F L Temperature Source Temporal Temporal Pulse Rate (60-100) 69 67 Pulse Location Monitor Monitor Respiratory Rate (12-18) 20 H Respiratory rate source Observation Blood Pressure (90/60-120/80) 146/64 H 142/47 H Blood Pressure Mean (mm Hg) 91 78 Source Monitor History Since Last Visit- (Skip if this is Patient's initial visit) Have you changed medications since your No No last visit? Any new allergies or adverse reactions No No Had a fall/change in ADL's that may No No increase risk of falls Signs or symptoms of abuse and/or No No neglect since last visit Have you been in the hospital since your No No last visit? Has dressing in place as prescribed Yes No Has compression in place as prescribed Yes N/A Has offloadiing in place as prescribed Yes Yes Experienced any changes in pain level or No No management Left Footwear Regular Shoe Right Footwear Regular Shoe Surgical Shoe with pressure relief insole Pain Scale: 0-10 Numeric Is Patient Pain Free? Yes - Nurse 1 - General Ulcer Measurement Start: 06/06/21 14:27 Freq: Status: Active Protocol: Activity Type Activity Date Activity User E-Sign Co-Sign Detail Recorded Client Recorded Date Recorded By Document 06/06/21 14:27 AK [id number] 06/06/21 14:32 AK Document 06/20/21 14:09 DL [id number] 06/20/21 14:15 DL 06/06/21 06/20/21 14:27 14:09 Wound Center Nurse 1 6-left 5th metatarsal -Current Size (cm) - Length 0.1 -Current Size (cm) - Width 0.1 -Current Size (cm) - Depth 0.1 -Total Square Cm 0.01 -Photo Taken No -Exudate Amt None Present -Wound Margin Flat & Intact -Granulation Amt Large (67-100%) -Granulation Quality Pale,[place] -Necrosis Amt None Present (0 %) -Structure Exposed N/A -Texture (Zari-wound Skin Appearance) Scarring -Moisture (Zari-wound Skin Appearance) Dry/Scaly -Color (Zari-wound Skin Appearance) No Abnormality -Temperature (Zari-wound Skin No Abnormality Appearance) (Pt Warm) -Tenderness on Palpation (Zari-wound No Skin Appearance) -Ulcer Cleansing Wound Cleanser -Foul Odor after Cleansing No -Anesthetic Used 4% Lidocaine Solution #4 RIGHT 4TH TOE -Combined with other wound No -Current Size (cm) - Length 0.1 -Current Size (cm) - Width 0.1 -Current Size (cm) - Depth 0.1 -Total Square Cm 0.01 -Photo Taken No -Undermining/Tunneling No -Circular Undermining No -Granulation Quality N/A -Slough/Fibrin No -Necrosis Amt None Present (0 %) -Structure Exposed N/A -Texture (Zari-wound Skin Appearance) Assessed, Scarring -Moisture (Zari-wound Skin Appearance) Assessed,Dry/ Scaly -Color (Zari-wound Skin Appearance) No Abnormality, Assessed -Temperature (Zari-wound Skin No Abnormality Appearance) (Pt Warm) -Ulcer Cleansing Rinsed/ Irrigated with Saline -Foul Odor after Cleansing No -Anesthetic Used 4% Lidocaine Solution #5 RIGHT PLAntAR -Combined with other wound No -Current Size (cm) - Length 0.2 0.4 -Current Size (cm) - Width 0.3 0.5 -Current Size (cm) - Depth 0.1 0.2 -Total Square Cm 0.06 0.20 -Photo Taken No -Tunneling No -Undermining/Tunneling No -Circular Undermining No -Change in Wound Grade/Stage No -Exudate Amt Small -Wound Margin Distinct, Thickened Outline Attached -Granulation Amt None Present (0 Large (67-100%) %) -Granulation Quality Pale,[place] -Slough/Fibrin Yes -Necrosis Amt Large (67-100%) None Present (0 %) -Necrotic Tissue Type Eschar -Structure Exposed N/A N/A -Texture (Zari-wound Skin Appearance) No Abnormality, Callus,Scarring Assessed -Moisture (Zari-wound Skin Appearance) No Abnormality, Dry/Scaly Assessed -Color (Zari-wound Skin Appearance) Assessed, No Abnormality Hemosiderin Staining -Temperature (Zari-wound Skin No Abnormality No Abnormality Appearance) (Pt Warm) (Pt Warm) -Tenderness on Palpation (Zari-wound Yes No Skin Appearance) -Ulcer Cleansing Rinsed/ Wound Cleanser Irrigated with Saline -Foul Odor after Cleansing No -Anesthetic Used 5% Lidocaine Gel Right Calf (cm) 38.5 Right Ankle (cm) 22 Left Calf (cm) 38.5 Left Ankle (cm) 21 WC - Nurse 2 - General Ulcer CM Notes Start: 06/06/21 14:27 Freq: Status: Active Protocol: Activity Type Activity Date Activity User E-Sign Co-Sign Detail Recorded Client Recorded Date Recorded By Document 06/06/21 14:57 JF [id number] 06/06/21 15:05 JF Document 06/20/21 14:26 JF [id number] 06/20/21 14:35 06/06/21 06/20/21 14:57 14:26 Wound Center Nurse 2 7-right 2nd toe -Time 14:30 -Correct Patient Yes -Correct Side, Site, Position Yes -Correct Procedure Yes -Procedure Performed Yes -Type of Procedure Debridement -Clinical Debridement Subcutaneous -Tissue Removed Subcutaneous -Post Debridement (cm) - Length 0.2 -Post Debridement (cm) - Width 0.2 -Post Debridement (cm) - Depth 0.1 -Total Square (Post) (cm) 0.04 -Area of Debridement (cm) - Length 0.2 -Area of Debridement (cm) - Width 0.2 -Total Square (Area) (cm) 0.04 -Tunneling No -Undermining/Tunneling No -Circular Undermining No -Wound/Ulcer Outcome Not Healed -Ulcer Cleansing Rinsed/ Irrigated with Saline -Foul Odor after Cleansing Yes, Due to Product Use -Bioengineered Tissue No -Bleeding Controlled with Pressure -Offloading No -Treatment Response Procedure Tolerated Well -Debridement - Subq, 1st 20sq cm No 6-left 5th metatarsal -Time 15:03 -Correct Patient Yes No -Correct Side, Site, Position Yes No -Correct Procedure Yes No -Procedure Performed Yes No -Type of Procedure Incision & Drainage -Clinical Debridement Subcutaneous -Tissue Removed Subcutaneous -Post Debridement (cm) - Length 0.3 -Post Debridement (cm) - Width 0.7 -Post Debridement (cm) - Depth 0.2 -Total Square (Post) (cm) 0.21 -Area of Debridement (cm) - Length 0.3 -Area of Debridement (cm) - Width 0.7 -Total Square (Area) (cm) 0.21 -Tunneling No -Undermining/Tunneling No -Circular Undermining No -Wound/Ulcer Outcome Not Healed Healed- Epithelialized -Ulcer Cleansing Rinsed/ Irrigated with Saline -Foul Odor after Cleansing No -Bioengineered Tissue No -Bleeding Controlled with Pressure -Offloading Yes -Type of Offloading Surgical Shoe -Treatment Response Procedure Tolerated Well -Debridement - Subq, 1st 20sq cm No #4 RIGHT 4TH TOE -Time 14:57 -Correct Patient No -Correct Side, Site, Position No -Correct Procedure No -Procedure Performed No -Post Debridement (cm) - Length 0 -Post Debridement (cm) - Width 0 -Post Debridement (cm) - Depth 0 -Total Square (Post) (cm) 0 -Area of Debridement (cm) - Length 0 -Area of Debridement (cm) - Width 0 -Total Square (Area) (cm) 0 -Tunneling No -Undermining/Tunneling No -Circular Undermining No -Wound/Ulcer Outcome Healed- Epithelialized #5 RIGHT PLAntAR -Time 14:59 14:28 -Correct Patient Yes Yes -Correct Side, Site, Position Yes Yes -Correct Procedure Yes Yes -Procedure Performed Yes Yes -Type of Procedure Debridement Debridement -Clinical Debridement Subcutaneous Subcutaneous -Tissue Removed Subcutaneous Subcutaneous -Post Debridement (cm) - Length 1 1.3 -Post Debridement (cm) - Width 0.3 0.6 -Post Debridement (cm) - Depth 0.1 0.1 -Total Square (Post) (cm) 0.3 0.78 -Area of Debridement (cm) - Length 1 1.3 -Area of Debridement (cm) - Width 0.3 0.6 -Total Square (Area) (cm) 0.3 0.78 -Tunneling No No -Undermining/Tunneling No No -Circular Undermining No No -Wound/Ulcer Outcome Not Healed Not Healed -Ulcer Cleansing Rinsed/ Rinsed/ Irrigated with Irrigated with Saline Saline -Foul Odor after Cleansing No No -Bioengineered Tissue No No -Bleeding Controlled with Pressure Pressure -Offloading Yes Yes -Type of Offloading Surgical Shoe Surgical Shoe -Treatment Response Procedure Procedure Tolerated Well Tolerated Well -Debridement - Subq, 1st 20sq cm Yes Yes Pain Scale: 0-10 Numeric Is Patient Pain Free? Yes Yes WC - Nurse 3 - General Ulcer D/C NN Start: 06/06/21 14:27 Freq: Status: Active Protocol: Activity Type Activity Date Activity User E-Sign Co-Sign Detail Recorded Client Recorded Date Recorded By Document 06/06/21 15:26 [facility] [id number] 06/06/21 15:27 [facility] 06/06/21 15:26 Wound Care Nurse 3 6-left 5th metatarsal -Ulcer Cleansing Rinsed/ Irrigated with Saline -Foul Odor after Cleansing No -Primary Dressing Applied Aquacel AG 2x2 -Primary Dressing Covered/Secured with Dry Gauze & Roll Gauze, Secured with Tape -Aquacel AG 2x2 1 #5 RIGHT PLAntAR -Ulcer Cleansing Rinsed/ Irrigated with Saline -Foul Odor after Cleansing No -Primary Dressing Applied Aquacel AG 2x2 -Primary Dressing Covered/Secured with Dry Gauze & Roll Gauze, Secured with Tape -Aquacel AG 2x2 0 Right -Other OWN COMPRESSION STOCKING APPLIED Left -Other OWN COMPRESSION STOCKING APPLIED Treatment Response Procedure Tolerated Well Pain Scale: 0-10 Numeric Is Patient Pain Free? Yes WC - Visit Discharge Discharge Condition Stable Ambulatory Status Ambulatory Transportation Private Auto Assessment/Plan Assessment/Plan (1) 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 exposed: CODE(S): L97.512 - 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 exposed (2) Other specified peripheral vascular diseases: CODE(S): I73.89 - Other specified peripheral vascular diseases (3) Venous insufficiency (chronic) (peripheral): CODE(S): I87.2 - Venous insufficiency (chronic) (peripheral) (4) Localized edema: CODE(S): R60.0 - Localized edema (5) Chronic ulcer of left foot with fat layer exposed: CODE(S): L97.522 - Non-pressure chronic ulcer of other part of left foot with fat layer exposed (6) Other hereditary and idiopathic neuropathies: CODE(S): G60.8 - Other hereditary and idiopathic neuropathies PLAN: I reviewed and discussed her case today. Debridement was performed today as noted in the clinical panel to all of the ulcer sites including the peripheral callus. A new ulcer without infection is noted to the right fourth toe. She is reassured her left foot ulcer is healed today. The following work up and care recommendations were made: Dressing: To change daily with Aquacel Ag Wash: Wash daily with antibacterial soap and water. Avoid soaking Tissue growth optimization: Advanced wound healing product application be considered if she has ongoing delays in healing and if she qualifies. She is making good healing progress so far. Offload: To keep pressure off of the ulcer sites. Bilateral surgical shoes were dispensed with dual density Plastizote off loading liners to keep pressure off of the plantar ulcer sites and toe ulcers. To cross straps to avoid direct pressure over the entire length of the toes. An offloading felt pad was also added to the left surgical shoe to prevent lateral foot irritation. She is reassured no new wound or blister objectively noted cam left foot. She feels like her foot is still moving around a lot in his shoe and advised her to limit her walking activity. I also offered her a total contact cast. She is unable to do this because she needs to be able to drive. I also offered her an offloading cam walker boot with offloading liners and she will consider this as a next step in the future. Vascular: I recommend noninvasive vascular studies to screen for any arterial deficiencies or occlusions. Arterial studies from [facility] reviewed from 05-21-21 with bilateral triphasic Doppler waveforms, pulse volume recordings within satisfactory levels, normal ABIs and normal TBI's. Edema: This is fairly controlled at this time. To wear single-layer Tubigrip and elevate periodically through the day. Her venous Doppler with reflux evaluation did not demonstrate deep venous thrombosis. There was saphenofemoral junction incompetence, segmental valvular incompetence within the great saphenous vein bilateral, right small saphenous vein incompetence, and right accessory saphenous vein incompetence. If lack of healing is noted vascular venous referral will be provided see if intervention may aid in her ulcer healing process.To wear compression stockings as advised. I offered her a vein specialist referral and she will consider this in the future. Infection: She is reassured there are no local signs of infection. To monitor. Pain: Controlled Host factors: Her comorbidities are noted. I recommend nutritional supplementation including Angel optimize healing. Diagnostic data: Bilateral foot x-rays were ordered and reviewed. There were no fractures, dislocation, osseous destruction, soft tissue emphysema or foreign bodies noted to bilateral foot. CBC was reviewed and is noted her white blood cell count is 5.3, CMP was reviewed and she is slight reduction in kidney function with a GFR of 59, and a A1c of 5.6%. To return the wound healing center 1 to 2 weeks or call sooner if she has any questions, concerns, or development of infection. 11 minutes was spent on this encounter. This included face to face and non face to face care including preparing for the visit, reviewing the history, performing the exam, counseling and providing education to the patient, family, or caregiver, ordering medications/test/ procedures if indicated as documented, communicating with other healthcare providers, documenting information in the medical record, interpreting / sharing this information when indicated as documented, and care coordination. I answered all the patient's questions.
== END 2021-07-05 23:59 ==
LOC: WC 14:15
PROVIDERS: PCP Internal Medicine; Referring Provider Podiatrist; Visit Provider Podiatrist
DX: L97.512 Non-pressure chronic ulcer of other part of right foot with fat layer exposed (principal); I73.89 Other specified peripheral vascular diseases; I87.2 Venous insufficiency (chronic) (peripheral); R60.0 Localized edema; L97.522 Non-pressure chronic ulcer of other part of left foot with fat layer exposed; G60.8 Other hereditary and idiopathic neuropathies
CPT/HCPCS: 11042

== ENCOUNTER → 2021-06-28 12:46 | Outpatient (CLI) | payer MEDICARE, SELFPAY ==
[2021-06-28 14:58] LABS: Absolute Lymphocyte Count 1.26 X10^3/uL (0.83-4.51); Absolute Neutrophil Count 2.9 X10^3/uL (2.0-7.7); Basophil# 0.01 X10^3/uL; Basophil% 0.2 % (0-1); Eosinophil# 0.23 X10^3/uL; Eosinophils% 4.7 % (0-5); Hematocrit 33.9 % (37-47); Lymphocyte # 1.26 X10^3/ul (0.83-4.51); Lymphocyte % 25.7 % (19-41); Mean Corp Hgb Conc 32.4 g/dL (32-36); Mean Corpuscular Hgb 30.6 pg (27.0-32.0); Mean Corpuscular Volume 94.2 fL (81-99); Mean Platelet Vol. 10.8 fl (6.2-12.0); Monocyte# 0.52 X10^3/uL; Monocyte% 10.6 % (0-10); NRBC Flagged by Analyzer 0 % (0-5); Neutrophil # 2.87 X10^3/uL (2.7-7.7); Neutrophil % 58.6 % (47-70); Platelet Count 191 K/mm3 (150-450); RBC Distribution Width CV 14.9 % (11.6-14.6); RBC Distribution Width SD 51.2 fl (35.1-43.9); White Blood Count 4.9 K/mm3 (4.4-11.0)
[2021-06-28 15:12] LABS: ALB/GLOB Ratio 0.7 RATIO (0.9-2.4); AST(SGOT) 23 U/L (15-37); Alanine Aminotransfer ALT/SGPT 23 U/L (13-56); Albumin, Serum 3.3 g/dL (3.2-5.0); Alkaline Phosphatase 88 U/L (45-117); Anion Gap 7 (5-15); BUN 18 mg/dL (7-18); Calcium,Total 8.8 mg/dL (8.5-10.1); Chloride 103 mmol/L (98-107); EST Glomerular Filtration Rate 57 mL/min (>60); Est Glom Filt Rate - Afr Amer 68 mL/min (>60); Globulin 4.7 g/dL (2.2-4.2); Glucose 74 mg/dL (74-106); Potassium 4.1 mmol/L (3.5-5.1); Sodium Level 136 mmol/L (136-145)
== END ==
PROVIDERS: PCP Internal Medicine; Referring Provider Internal Medicine Rheumatology; Visit Provider Internal Medicine Rheumatology
DX: M06.09 Rheumatoid arthritis without rheumatoid factor, multiple sites (principal); M18.11 Unilateral primary osteoarthritis of first carpometacarpal joint, right hand; M17.0 Bilateral primary osteoarthritis of knee; M47.892 Other spondylosis, cervical region; M47.897 Other spondylosis, lumbosacral region; I10 Essential (primary) hypertension; E78.5 Hyperlipidemia, unspecified; F32.89 Other specified depressive episodes; I83.90 Asymptomatic varicose veins of unspecified lower extremity; Z79.899 Other long term (current) drug therapy
CPT/HCPCS: 36415; 80053; 85025

== ENCOUNTER 2021-08-01 14:00 | Outpatient (RCR) | payer MEDICARE, SELFPAY ==
[2021-07-06 00:12] VITALS: BP 142/47; PULSE 67; RESP 20; TEMP 36.1
[2021-07-18 14:28] VITALS: BP 124/47; PULSE 70; RESP 16; TEMP 36.1
--- NOTE | 2021-07-18 15:02 | PN.PCM_ITS ---
History of Present Illness Date of Service: 07/18/21 Chief Complaint: Right foot ulcer History of Wound: This 81-year-old female presents to the wound healing center with multiple foot ulcers. She tried to wear her surgical shoe to reduce ulcer pressure. She denies fever, chill, nausea, vomiting. She denies drainage to the left foot today. Progress of Wound: Stable Objective Data Objective Data Vital Signs: Vital Signs Temp Pulse Resp BP 97.0 F L 70 16 124/47 H 07/18/21 14:28 07/18/21 14:28 07/18/21 14:28 07/18/21 14:28 Physical Exam Extremity Extremity Narrative: Muscle atrophy noted. Dorsal contraction of lesser digits and prominent metatarsal heads with atrophic fat pad to the metatarsal head region also noted. No fluctuance or bogginess. Skin Wound Narrative: right sub 1st metatarsal head granular base. Right fourth toe ulcer has full epithelialization this is healed today. There is no deep probing, erythema, streaking, purulence, or odor noted. the adjacent skin is hairless and atrophic. Full epithelialization is noted to the lateral left foot; no significant callus. Neuro Neuro Narrative: Lack of epicritic sensation light touch Debridement Note Debridement Note Wound debrided: sub 1st metarsal head Wound Grade/Stage: Type of Debridement: Excisional debridement Anesthesia Used: 4% Lidocaine Solution Depth: in the subcutaneous layer Percentage of wound debrided: 100 Instrument Used: #15 blade Tissue Removed: fibrous, devitalized subcutaneous, biofilm, slough Severity: Fat Layer Exposed Amount of bleeding with debridement: Mild Bleeding Controlled with: Pressure Patient tolerated procedure: Patient tolerated procedure well Post-Debridement Measurements and Additional Note: Post-Debridement Measurements/Treatment [facility] Nurse 1 - General Ulcer Assessment Start: 07/18/21 14:28 Freq: Status: Active Protocol: MANUELITO Activity Type Activity Date Activity User E-Sign Co-Sign Detail Recorded Client Recorded Date Recorded By Document 07/18/21 14:28 ML [id number] 07/18/21 14:35 ML 07/18/21 14:28 - Today's Visit Information Type of service 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 ) Arrival Mode Ambulatory Transfer Assistance None Patient Identification Verified (Name & Yes ) Patient Requires Transmission-Based No Precautions Safety Precautions NA Vital Signs Temperature (97.8 F-99.1 F) 97.0 F L Temperature Source Temporal Pulse Rate (60-100) 70 Pulse Location Monitor Respiratory Rate (12-18) 16 Respiratory rate source Observation Blood Pressure (90/60-120/80) 124/47 H Blood Pressure Mean (mm Hg) 72 Source Monitor Position Sitting Blood Pressure Location Right Arm History Since Last Visit- (Skip if this is Patient's initial visit) Have you changed medications since your No last visit? Any new allergies or adverse reactions No Had a fall/change in ADL's that may No increase risk of falls Signs or symptoms of abuse and/or No neglect since last visit Have you been in the hospital since your No last visit? Has dressing in place as prescribed Yes Has compression in place as prescribed Yes Has offloadiing in place as prescribed N/A Experienced any changes in pain level or No management Left Footwear Regular Shoe Right Footwear Regular Shoe Pain Scale: 0-10 Numeric Is Patient Pain Free? Yes WC - Nurse 1 - General Ulcer Measurement Start: 07/18/21 14:28 Freq: Status: Active Protocol: Activity Type Activity Date Activity User E-Sign Co-Sign Detail Recorded Client Recorded Date Recorded By Document 07/18/21 14:28 ML [id number] 07/18/21 14:35 ML 07/18/21 14:28 Wound Center Nurse 1 #7 R 4th toe -Current Size (cm) - Length 0.1 -Current Size (cm) - Width 0.1 -Current Size (cm) - Depth 0.1 -Total Square Cm 0.01 -Exudate Amt Small -Exudate Type Serosanguineous -Wound Margin Distinct, Outline Attached -Granulation Amt None Present (0 %) -Slough/Fibrin No -Necrosis Amt None Present (0 %) -Texture (Zari-wound Skin Appearance) Assessed -Moisture (Zari-wound Skin Appearance) Assessed -Color (Zari-wound Skin Appearance) Assessed -Temperature (Zari-wound Skin No Abnormality Appearance) (Pt Warm) -Tenderness on Palpation (Zari-wound No Skin Appearance) -Ulcer Cleansing Soap and Water -Foul Odor after Cleansing No -Anesthetic Used 4% Lidocaine Solution #5 RIGHT PLAntAR -Current Size (cm) - Length 0.2 -Current Size (cm) - Width 0.3 -Current Size (cm) - Depth 0.3 -Total Square Cm 0.06 -Exudate Amt Small -Exudate Type Serosanguineous -Wound Margin Distinct, Outline Attached -Granulation Amt Small (1-33%) -Slough/Fibrin Yes -Necrosis Amt Small (1-33%) -Texture (Zari-wound Skin Appearance) Assessed -Moisture (Zari-wound Skin Appearance) Assessed -Color (Zari-wound Skin Appearance) Assessed -Temperature (Zari-wound Skin No Abnormality Appearance) (Pt Warm) -Ulcer Cleansing Soap and Water -Foul Odor after Cleansing No -Anesthetic Used 4% Lidocaine Solution WC - Nurse 2 - General Ulcer CM Notes Start: 07/18/21 14:28 Freq: Status: Active Protocol: Activity Type Activity Date Activity User E-Sign Co-Sign Detail Recorded Client Recorded Date Recorded By Document 07/18/21 14:50 INOCENTE [id number] 07/18/21 14:54 INOCENTE 07/18/21 14:50 Wound Center Nurse 2 #7 R 4th toe -Correct Patient No -Correct Side, Site, Position No -Correct Procedure No -Procedure Performed No -Post Debridement (cm) - Length 0 -Post Debridement (cm) - Width 0 -Post Debridement (cm) - Depth 0 -Total Square (Post) (cm) 0 -Area of Debridement (cm) - Length 0 -Area of Debridement (cm) - Width 0 -Total Square (Area) (cm) 0 -Wound/Ulcer Outcome Healed- Epithelialized #5 RIGHT PLAntAR -Time 14:51 -Correct Patient Yes -Correct Side, Site, Position Yes -Correct Procedure Yes -Procedure Performed Yes -Type of Procedure Debridement -Clinical Debridement Subcutaneous -Tissue Removed Subcutaneous -Post Debridement (cm) - Length 1.2 -Post Debridement (cm) - Width 0.5 -Post Debridement (cm) - Depth 0.2 -Total Square (Post) (cm) 0.60 -Area of Debridement (cm) - Length 1.2 -Area of Debridement (cm) - Width 0.5 -Total Square (Area) (cm) 0.60 -Tunneling No -Undermining/Tunneling No -Circular Undermining No -Wound/Ulcer Outcome Not Healed -Ulcer Cleansing Rinsed/ Irrigated with Saline -Foul Odor after Cleansing No -Bioengineered Tissue No -Bleeding Controlled with Pressure -Offloading Yes -Type of Offloading Surgical Shoe -Treatment Response Procedure Tolerated Well -Debridement - Subq, 1st 20sq cm Yes Pain Scale: 0-10 Numeric Is Patient Pain Free? Yes Assessment/Plan Assessment/Plan (1) 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 exposed: CODE(S): L97.512 - 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 exposed (2) Venous insufficiency (chronic) (peripheral): CODE(S): I87.2 - Venous insufficiency (chronic) (peripheral) (3) Localized edema: CODE(S): R60.0 - Localized edema (4) Other hereditary and idiopathic neuropathies: CODE(S): G60.8 - Other hereditary and idiopathic neuropathies PLAN: I reviewed and discussed her case today. Debridement was performed today as noted in the clinical panel to all of the ulcer sites including the peripheral callus. Fourth toe ulcer site is healed on the right foot. There is no ulcer on the left foot noted with left lower extremity inspection. The following work up and care recommendations were made: Dressing: Aquacel Ag was applied. Tissue growth optimization: Advanced wound healing product application be considered if she has ongoing delays in healing and if she qualifies. The ulcer is too small in size to qualify at this time. She is making good healing progress so far. Offload: To keep pressure off of the ulcer sites. We discussed the benefits and outcomes expected with the various offloading techniques. She thought about using a cane or walker. We did also review the option of a total contact cast which is the gold standard and she is amendable to proceed forward with this today because she has a sister that can drive her home. She understands she cannot drive with a cast time. Verbal consent was obtained and this was applied according standard protocol with the right lower extremity in a rectus position. The cast was well-padded and applied without difficulty. She tolerated this well. She was advised to keep this clean, dry, and intact until follow-up next week. It is okay to walk on this with a cast boot however excessive walking is not recommended. Vascular: I recommend noninvasive vascular studies to screen for any arterial deficiencies or occlusions. Arterial studies from [facility] reviewed from 05-21-21 with bilateral triphasic Doppler waveforms, pulse volume recordings within satisfactory levels, normal ABIs and normal TBI's. Edema: This is fairly controlled at this time. To wear single-layer Tubigrip and elevate periodically through the day. Her venous Doppler with reflux evaluation did not demonstrate deep venous thrombosis. There was saphenofemoral junction incompetence, segmental valvular incompetence within the great saphenous vein bilateral, right small saphenous vein incompetence, and right accessory saphenous vein incompetence. If lack of healing is noted vascular venous referral will be provided see if intervention may aid in her ulcer healing process. I offered her a vein specialist referral and she will consider this in the future. Infection: She is reassured there are no local signs of infection. To monitor. Pain: Controlled Host factors: Her comorbidities are noted. I recommend nutritional supplementation including Angel optimize healing. Diagnostic data: Bilateral foot x-rays were ordered and reviewed. There were no fractures, dislocation, osseous destruction, soft tissue emphysema or foreign bodies noted to bilateral foot. CBC was reviewed and is noted her white blood cell count is 5.3, CMP was reviewed and she is slight reduction in kidney function with a GFR of 59, and a A1c of 5.6%. To return the wound healing center 1 week or call sooner if she has any questions, concerns, or development of infection. I answered all the patient's questions.
[2021-07-25 14:40] VITALS: BP 140/65; PULSE 60; RESP 20; TEMP 36.4
--- NOTE | 2021-07-25 16:33 | PCM.WC.PN ---
History of Present Illness Date of Service: 07/25/21 Chief Complaint: Right foot ulcer History of Wound: This 81-year-old female presents to the wound healing center with multiple foot ulcers. She did well with her total contact cast to the right lower extremity last week and kept it clean and dry. She denies fever, chill, nausea, vomiting. She was trimming her callus on her left foot and noticed some discoloration and would like this site evaluated today. Progress of Wound: Improving right New left Objective Data Objective Data Vital Signs: Vital Signs Temp Pulse Resp BP 97.6 F L 60 20 H 140/65 H 07/25/21 14:40 07/25/21 14:40 07/25/21 14:40 07/25/21 14:40 Physical Exam Extremity Extremity Narrative: Muscle atrophy noted. Dorsal contraction of lesser digits and prominent metatarsal heads with atrophic fat pad to the metatarsal head region also noted. No fluctuance or bogginess. Skin Wound Narrative: right sub 1st metatarsal head granular base. New left subfirst metatarsal head ulcer site with callus and some hemorrhagic bleeding. There is no deep probing, erythema, streaking, purulence, or odor noted. the adjacent skin is hairless and atrophic. Neuro Neuro Narrative: Lack of epicritic sensation light touch Debridement Note Debridement Note Wound debrided: Subfirst metatarsal head bilateral Wound Grade/Stage: 1 Type of Debridement: Excisional debridement Anesthesia Used: 4% Lidocaine Solution Depth: in the subcutaneous layer Percentage of wound debrided: 100 Instrument Used: #15 blade Tissue Removed: fibrous, devitalized subcutaneous, biofilm, slough Severity: Fat Layer Exposed Amount of bleeding with debridement: Mild Bleeding Controlled with: Pressure Patient tolerated procedure: Patient tolerated procedure well Post-Debridement Measurements and Additional Note: Post-Debridement Measurements/Treatment - Nurse 1 - General Ulcer Assessment Start: 07/18/21 14:28 Freq: Status: Active Protocol: MANUELITO Activity Type Activity Date Activity User E-Sign Co-Sign Detail Recorded Client Recorded Date Recorded By Document 07/18/21 14:28 ML [id number] 07/18/21 14:35 ML Document 07/25/21 14:40 DL [id number] 07/25/21 14:42 DL 07/18/21 07/25/21 14:28 14:40 - Today's Visit Information Type of service Follow-up Visit Follow-up Visit (Physician/CLIENT EXPERIENCE MANAGER (Physician/CLIENT EXPERIENCE MANAGER ) ) Arrival Mode Ambulatory Ambulatory Transfer Assistance None None Patient Identification Verified (Name & Yes Yes ) Patient Requires Transmission-Based No No Precautions Safety Precautions NA Vital Signs Temperature (97.8 F-99.1 F) 97.0 F L 97.6 F L Temperature Source Temporal Temporal Pulse Rate (60-100) 70 60 Pulse Location Monitor Monitor Respiratory Rate (12-18) 16 20 H Respiratory rate source Observation Observation Blood Pressure (90/60-120/80) 124/47 H 140/65 H Blood Pressure Mean (mm Hg) 72 90 Source Monitor Monitor Position Sitting Blood Pressure Location Right Arm History Since Last Visit- (Skip if this is Patient's initial visit) Have you changed medications since your No No last visit? Any new allergies or adverse reactions No No Had a fall/change in ADL's that may No No increase risk of falls Signs or symptoms of abuse and/or No No neglect since last visit Have you been in the hospital since your No No last visit? Has dressing in place as prescribed Yes Yes Has compression in place as prescribed Yes N/A Has offloadiing in place as prescribed N/A Yes Experienced any changes in pain level or No No management Left Footwear Regular Shoe Right Footwear Regular Shoe Pain Scale: 0-10 Numeric Is Patient Pain Free? Yes Yes WC - Nurse 1 - General Ulcer Measurement Start: 07/18/21 14:28 Freq: Status: Active Protocol: Activity Type Activity Date Activity User E-Sign Co-Sign Detail Recorded Client Recorded Date Recorded By Document 07/18/21 14:28 ML [id number] 07/18/21 14:35 ML Document 07/25/21 14:40 DL [id number] 07/25/21 14:42 DL 07/18/21 07/25/21 14:28 14:40 Wound Center Nurse 1 #7 R 4th toe -Current Size (cm) - Length 0.1 -Current Size (cm) - Width 0.1 -Current Size (cm) - Depth 0.1 -Total Square Cm 0.01 -Exudate Amt Small -Exudate Type Serosanguineous -Wound Margin Distinct, Outline Attached -Granulation Amt None Present (0 %) -Slough/Fibrin No -Necrosis Amt None Present (0 %) -Texture (Zari-wound Skin Appearance) Assessed -Moisture (Zari-wound Skin Appearance) Assessed -Color (Zari-wound Skin Appearance) Assessed -Temperature (Zari-wound Skin No Abnormality Appearance) (Pt Warm) -Tenderness on Palpation (Zari-wound No Skin Appearance) -Ulcer Cleansing Soap and Water -Foul Odor after Cleansing No -Anesthetic Used 4% Lidocaine Solution #5 RIGHT PLAntAR -Current Size (cm) - Length 0.2 0.7 -Current Size (cm) - Width 0.3 1.2 -Current Size (cm) - Depth 0.3 0.1 -Total Square Cm 0.06 0.84 -Photo Taken No -Exudate Amt Small None Present -Exudate Type Serosanguineous -Wound Margin Distinct, Thickened Outline Attached -Granulation Amt Small (1-33%) Large (67-100%) -Granulation Quality Pale -Slough/Fibrin Yes -Necrosis Amt Small (1-33%) Small (1-33%) -Necrotic Tissue Type Adherent Slough -Structure Exposed N/A -Texture (Zari-wound Skin Appearance) Assessed Scarring -Moisture (Zari-wound Skin Appearance) Assessed Dry/Scaly -Color (Zari-wound Skin Appearance) Assessed No Abnormality -Temperature (Zari-wound Skin No Abnormality No Abnormality Appearance) (Pt Warm) (Pt Warm) -Tenderness on Palpation (Zari-wound No Skin Appearance) -Ulcer Cleansing Soap and Water Soap and Water -Foul Odor after Cleansing No No -Anesthetic Used 4% Lidocaine 4% Lidocaine Solution Solution WC - Nurse 2 - General Ulcer CM Notes Start: 07/18/21 14:28 Freq: Status: Active Protocol: Activity Type Activity Date Activity User E-Sign Co-Sign Detail Recorded Client Recorded Date Recorded By Document 07/18/21 14:50 JF [id number] 07/18/21 14:54 JF Edit Result 07/18/21 14:50 JF (1) [id number] 07/19/21 07:18 PL Document 07/25/21 14:52 JF [id number] 07/25/21 14:54 JF Edit Result 07/25/21 14:52 JF (2) [id number] 07/25/21 14:57 JF (1) #5 RIGHT PLAntAR - Type of Offloading Surgical Shoe => Total Contact Cast => (TCC) - Right ($) (2) 8-left 1st metatarsal ulcer - Time => 14:56 - Correct Patient => Yes - Correct Side, Site, Position => Yes - Correct Procedure => Yes - Procedure Performed => Yes - Type of Procedure => Debridement - Clinical Debridement => Subcutaneous - Tissue Removed => Subcutaneous - Post Debridement (cm) - Length => 0.1 - Post Debridement (cm) - Width => 0.1 - Post Debridement (cm) - Depth => 0.1 - Total Square (Post) (cm) => 0.01 - Area of Debridement (cm) - Length => 0.1 - Area of Debridement (cm) - Width => 0.1 - Total Square (Area) (cm) => 0.01 - Tunneling => No - Undermining/Tunneling => No - Circular Undermining => No - Wound/Ulcer Outcome => Not Healed - Ulcer Cleansing => Rinsed/Irrigated => with Saline - Foul Odor after Cleansing => No - Bioengineered Tissue => No - Bleeding Controlled with => Pressure - Offloading => No - Treatment Response => Procedure => Tolerated Well - Debridement - Subq, 1st 20sq cm => Yes 07/18/21 07/25/21 14:50 14:52 Wound Center Nurse 2 8-left 1st metatarsal ulcer -Time 14:56 -Correct Patient Yes -Correct Side, Site, Position Yes -Correct Procedure Yes -Procedure Performed Yes -Type of Procedure Debridement -Clinical Debridement Subcutaneous -Tissue Removed Subcutaneous -Post Debridement (cm) - Length 0.1 -Post Debridement (cm) - Width 0.1 -Post Debridement (cm) - Depth 0.1 -Total Square (Post) (cm) 0.01 -Area of Debridement (cm) - Length 0.1 -Area of Debridement (cm) - Width 0.1 -Total Square (Area) (cm) 0.01 -Tunneling No -Undermining/Tunneling No -Circular Undermining No -Wound/Ulcer Outcome Not Healed -Ulcer Cleansing Rinsed/ Irrigated with Saline -Foul Odor after Cleansing No -Bioengineered Tissue No -Bleeding Controlled with Pressure -Offloading No -Treatment Response Procedure Tolerated Well -Debridement - Subq, 1st 20sq cm Yes #7 R 4th toe -Correct Patient No -Correct Side, Site, Position No -Correct Procedure No -Procedure Performed No -Post Debridement (cm) - Length 0 -Post Debridement (cm) - Width 0 -Post Debridement (cm) - Depth 0 -Total Square (Post) (cm) 0 -Area of Debridement (cm) - Length 0 -Area of Debridement (cm) - Width 0 -Total Square (Area) (cm) 0 -Wound/Ulcer Outcome Healed- Epithelialized #5 RIGHT PLAntAR -Time 14:51 14:53 -Correct Patient Yes Yes -Correct Side, Site, Position Yes Yes -Correct Procedure Yes Yes -Procedure Performed Yes Yes -Type of Procedure Debridement Debridement -Clinical Debridement Subcutaneous Subcutaneous -Tissue Removed Subcutaneous Subcutaneous -Post Debridement (cm) - Length 1.2 0.1 -Post Debridement (cm) - Width 0.5 0.5 -Post Debridement (cm) - Depth 0.2 0.1 -Total Square (Post) (cm) 0.60 0.05 -Area of Debridement (cm) - Length 1.2 0.1 -Area of Debridement (cm) - Width 0.5 0.5 -Total Square (Area) (cm) 0.60 0.05 -Tunneling No No -Undermining/Tunneling No No -Circular Undermining No No -Wound/Ulcer Outcome Not Healed Not Healed -Ulcer Cleansing Rinsed/ Rinsed/ Irrigated with Irrigated with Saline Saline -Foul Odor after Cleansing No No -Bioengineered Tissue No No -Bleeding Controlled with Pressure Pressure -Offloading Yes Yes -Type of Offloading Total Contact Total Contact Cast (TCC) - Cast (TCC) - Right ($) Right ($) -Treatment Response Procedure Procedure Tolerated Well Tolerated Well -Debridement - Subq, 1st 20sq cm Yes Yes Pain Scale: 0-10 Numeric Is Patient Pain Free? Yes Yes WC - Nurse 3 - General Ulcer D/C NN Start: 07/18/21 14:28 Freq: Status: Active Protocol: Activity Type Activity Date Activity User E-Sign Co-Sign Detail Recorded Client Recorded Date Recorded By Document 07/18/21 15:12 ML [id number] 07/18/21 15:16 ML Document 07/25/21 15:18 RB [id number] 07/25/21 15:19 RB 07/18/21 07/25/21 15:12 15:18 Wound Care Nurse 3 8-left 1st metatarsal ulcer -Ulcer Cleansing Rinsed/ Irrigated with Saline -Primary Dressing Applied Aquacel AG 2x2 -Primary Dressing Covered/Secured with Dry Gauze -Aquacel AG 2x2 1 #5 RIGHT PLAntAR -Ulcer Cleansing Rinsed/ Rinsed/ Irrigated with Irrigated with Saline Saline -Primary Dressing Applied Aquacel AG 2x2 -Other Dressing aquacel ag then primary layer of TCC -Primary Dressing Covered/Secured with Dry Gauze -Other Covering FOAM DRESSING, TCC UNDERCAST APPLIED -Aquacel AG 2x2 1 Treatment Response Procedure Tolerated Well Pain Scale: 0-10 Numeric Is Patient Pain Free? Yes Yes WC - Visit Discharge Discharge Condition Stable Stable Ambulatory Status Ambulatory Ambulatory,Cane Transportation Private Auto Medication Reconcilliation completed & No No provided to patient/care provider Clinical Summary of Care Provided Yes Yes Assessment/Plan Assessment/Plan (1) 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 exposed: CODE(S): L97.512 - 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 exposed (2) Venous insufficiency (chronic) (peripheral): CODE(S): I87.2 - Venous insufficiency (chronic) (peripheral) (3) Localized edema: CODE(S): R60.0 - Localized edema (4) Other hereditary and idiopathic neuropathies: CODE(S): G60.8 - Other hereditary and idiopathic neuropathies (5) Chronic ulcer of left foot with fat layer exposed: CODE(S): L97.522 - Non-pressure chronic ulcer of other part of left foot with fat layer exposed PLAN: I reviewed and discussed her case today. Debridement was performed today as noted in the clinical panel to all of the ulcer sites including the peripheral callus. The following work up and care recommendations were made: Dressing: Aquacel Ag was applied, bilateral. to change left foot dressing daily with hydrogel and gauze. Tissue growth optimization: Advanced wound healing product application be considered if she has ongoing delays in healing and if she qualifies. The ulcer is too small in size to qualify at this time. She is making good healing progress so far. Offload: To keep pressure off of the ulcer sites. We discussed the benefits and outcomes expected with the various offloading techniques. She thought about using a cane or walker. We did also review the option of a total contact cast which is the gold standard and she is amendable to proceed forward with this today because she has a sister that can drive her home. She understands she cannot drive with a cast time. Verbal consent was obtained and this was applied according standard protocol with the right lower extremity in a rectus position. The cast was well-padded and applied without difficulty. She tolerated this well. She was advised to keep this clean, dry, and intact until follow-up next week. It is okay to walk on this with a cast boot however excessive walking is not recommended. She was advised to try her best to keep pressure off of her left forefoot as well by placing more weight on the heel using assistive device such as a walker. Vascular: I recommend noninvasive vascular studies to screen for any arterial deficiencies or occlusions. Arterial studies from [facility] reviewed from 05-21-21 with bilateral triphasic Doppler waveforms, pulse volume recordings within satisfactory levels, normal ABIs and normal TBI's. Edema: This is fairly controlled at this time. To wear single-layer Tubigrip and elevate periodically through the day. Her venous Doppler with reflux evaluation did not demonstrate deep venous thrombosis. There was saphenofemoral junction incompetence, segmental valvular incompetence within the great saphenous vein bilateral, right small saphenous vein incompetence, and right accessory saphenous vein incompetence. If lack of healing is noted vascular venous referral will be provided see if intervention may aid in her ulcer healing process. I offered her a vein specialist referral and she will consider this in the future. Infection: She is reassured there are no local signs of infection. To monitor. Pain: Controlled Host factors: Her comorbidities are noted. I recommend nutritional supplementation including Angel optimize healing. Diagnostic data: Bilateral foot x-rays were ordered and reviewed. There were no fractures, dislocation, osseous destruction, soft tissue emphysema or foreign bodies noted to bilateral foot. CBC was reviewed and is noted her white blood cell count is 5.3, CMP was reviewed and she is slight reduction in kidney function with a GFR of 59, and a A1c of 5.6%. To return the wound healing center 1 week or call sooner if she has any questions, concerns, or development of infection. I answered all the patient's questions.
[2021-08-01 14:15] VITALS: BP 132/67; PULSE 72; RESP 20; TEMP 36.8
--- NOTE | 2021-08-01 14:46 | PCM.WC.PN ---
History of Present Illness Date of Service: 08/01/21 Chief Complaint: Right foot ulcer History of Wound: This 81-year-old female presents to the wound healing center with multiple foot ulcers. She did well with her total contact cast to the right lower extremity last week and kept it clean and dry. It did irritate her hip and she does not want to wear this again this upcoming week. She denies fever, chill, nausea, vomiting. Progress of Wound: Healed right Healed left Objective Data Objective Data Vital Signs: Vital Signs Temp Pulse Resp BP 98.3 F 72 20 H 132/67 H 08/01/21 14:15 08/01/21 14:15 08/01/21 14:15 08/01/21 14:15 Physical Exam Extremity Extremity Narrative: Muscle atrophy noted. Dorsal contraction of lesser digits and prominent metatarsal heads with atrophic fat pad to the metatarsal head region also noted. No fluctuance or bogginess. Skin Wound Narrative: right sub 1st metatarsal head prior ulcer site is now healed with full epithelialization. The left foot ulcer is healed with full epithelialization. There is no deep probing, erythema, streaking, purulence, or odor noted. the adjacent skin is hairless and atrophic. Neuro Neuro Narrative: Lack of epicritic sensation light touch Debridement Note Debridement Note Post-Debridement Measurements and Additional Note: Post-Debridement Measurements/Treatment - Nurse 1 - General Ulcer Assessment Start: 07/18/21 14:28 Freq: Status: Active Protocol: WC.LOWEXT Activity Type Activity Date Activity User E-Sign Co-Sign Detail Recorded Client Recorded Date Recorded By Document 07/18/21 14:28 ML [id number] 07/18/21 14:35 ML Document 07/25/21 14:40 DL [id number] 07/25/21 14:42 DL Document 08/01/21 14:15 DL [id number] 08/01/21 14:25 DL 07/18/21 07/25/21 08/01/21 14:28 14:40 14:15 - Today's Visit Information Type of service Follow-up Visit Follow-up Visit Follow-up Visit (Physician/RUBBER MILL OPERATOR (Physician/RUBBER MILL OPERATOR (Physician/RUBBER MILL OPERATOR ) ) ) Arrival Mode Ambulatory Ambulatory Ambulatory Transfer Assistance None None None Patient Identification Verified (Name & Yes Yes Yes ) Patient Requires Transmission-Based No No Precautions Safety Precautions NA Vital Signs Temperature (97.8 F-99.1 F) 97.0 F L 97.6 F L 98.3 F Temperature Source Temporal Temporal Temporal Pulse Rate (60-100) 70 60 72 Pulse Location Monitor Monitor Monitor Respiratory Rate (12-18) 16 20 H 20 H Respiratory rate source Observation Observation Observation Blood Pressure (90/60-120/80) 124/47 H 140/65 H 132/67 H Blood Pressure Mean (mm Hg) 72 90 88 Source Monitor Monitor Monitor Position Sitting Blood Pressure Location Right Arm History Since Last Visit- (Skip if this is Patient's initial visit) Have you changed medications since your No No No last visit? Any new allergies or adverse reactions No No No Had a fall/change in ADL's that may No No No increase risk of falls Signs or symptoms of abuse and/or No No No neglect since last visit Have you been in the hospital since your No No No last visit? Has dressing in place as prescribed Yes Yes Has compression in place as prescribed Yes N/A N/A Has offloadiing in place as prescribed N/A Yes Experienced any changes in pain level or No No No management Left Footwear Regular Shoe Right Footwear Regular Shoe Total Contact Cast Pain Scale: 0-10 Numeric Is Patient Pain Free? Yes Yes Yes WC - Nurse 1 - General Ulcer Measurement Start: 07/18/21 14:28 Freq: Status: Active Protocol: Activity Type Activity Date Activity User E-Sign Co-Sign Detail Recorded Client Recorded Date Recorded By Document 07/18/21 14:28 ML [id number] 07/18/21 14:35 ML Document 07/25/21 14:40 DL [id number] 07/25/21 14:42 DL Document 08/01/21 14:15 DL [id number] 08/01/21 14:25 DL 07/18/21 07/25/21 08/01/21 14:28 14:40 14:15 Wound Center Nurse 1 8-left 1st metatarsal ulcer -Current Size (cm) - Length 0.1 -Current Size (cm) - Width 0.1 -Current Size (cm) - Depth 0.1 -Total Square Cm 0.01 -Photo Taken No -Exudate Amt None Present -Wound Margin Thickened -Granulation Amt Large (67-100%) -Granulation Quality Pale -Necrosis Amt None Present (0 %) -Structure Exposed N/A -Texture (Zari-wound Skin Appearance) Callus -Moisture (Zari-wound Skin Appearance) Dry/Scaly -Color (Zari-wound Skin Appearance) No Abnormality -Temperature (Zari-wound Skin No Abnormality Appearance) (Pt Warm) -Tenderness on Palpation (Zari-wound No Skin Appearance) -Ulcer Cleansing Soap and Water -Foul Odor after Cleansing Yes, Due to Product Use -Anesthetic Used 4% Lidocaine Solution #7 R 4th toe -Current Size (cm) - Length 0.1 -Current Size (cm) - Width 0.1 -Current Size (cm) - Depth 0.1 -Total Square Cm 0.01 -Exudate Amt Small -Exudate Type Serosanguineous -Wound Margin Distinct, Outline Attached -Granulation Amt None Present (0 %) -Slough/Fibrin No -Necrosis Amt None Present (0 %) -Texture (Zari-wound Skin Appearance) Assessed -Moisture (Zari-wound Skin Appearance) Assessed -Color (Zari-wound Skin Appearance) Assessed -Temperature (Zari-wound Skin No Abnormality Appearance) (Pt Warm) -Tenderness on Palpation (Zari-wound No Skin Appearance) -Ulcer Cleansing Soap and Water -Foul Odor after Cleansing No -Anesthetic Used 4% Lidocaine Solution #5 RIGHT PLAntAR -Current Size (cm) - Length 0.2 0.7 0.1 -Current Size (cm) - Width 0.3 1.2 0.1 -Current Size (cm) - Depth 0.3 0.1 0.1 -Total Square Cm 0.06 0.84 0.01 -Photo Taken No No -Exudate Amt Small None Present None Present -Exudate Type Serosanguineous -Wound Margin Distinct, Thickened Thickened Outline Attached -Granulation Amt Small (1-33%) Large (67-100%) Large (67-100%) -Granulation Quality Pale Pale -Slough/Fibrin Yes No -Necrosis Amt Small (1-33%) Small (1-33%) None Present (0 %) -Necrotic Tissue Type Adherent Slough -Structure Exposed N/A N/A -Texture (Zari-wound Skin Appearance) Assessed Scarring Callus -Moisture (Zari-wound Skin Appearance) Assessed Dry/Scaly Maceration -Color (Zari-wound Skin Appearance) Assessed No Abnormality No Abnormality -Temperature (Zari-wound Skin No Abnormality No Abnormality No Abnormality Appearance) (Pt Warm) (Pt Warm) (Pt Warm) -Tenderness on Palpation (Zari-wound No No Skin Appearance) -Ulcer Cleansing Soap and Water Soap and Water Rinsed/ Irrigated with Saline -Foul Odor after Cleansing No No No -Anesthetic Used 4% Lidocaine 4% Lidocaine 4% Lidocaine Solution Solution Solution WC - Nurse 2 - General Ulcer CM Notes Start: 07/18/21 14:28 Freq: Status: Active Protocol: Activity Type Activity Date Activity User E-Sign Co-Sign Detail Recorded Client Recorded Date Recorded By Document 07/18/21 14:50 JF [id number] 07/18/21 14:54 JF Edit Result 07/18/21 14:50 JF (1) [id number] 07/19/21 07:18 PL Document 07/25/21 14:52 JF [id number] 07/25/21 14:54 JF Edit Result 07/25/21 14:52 JF (2) [id number] 07/25/21 14:57 JF Edit Result 07/25/21 14:52 JF (3) [id number] 07/26/21 07:34 PL Document 08/01/21 14:41 JF [id number] 08/01/21 14:44 JF (1) #5 RIGHT PLAntAR - Type of Offloading Surgical Shoe => Total Contact Cast => (TCC) - Right ($) (2) 8-left 1st metatarsal ulcer - Time => 14:56 - Correct Patient => Yes - Correct Side, Site, Position => Yes - Correct Procedure => Yes - Procedure Performed => Yes - Type of Procedure => Debridement - Clinical Debridement => Subcutaneous - Tissue Removed => Subcutaneous - Post Debridement (cm) - Length => 0.1 - Post Debridement (cm) - Width => 0.1 - Post Debridement (cm) - Depth => 0.1 - Total Square (Post) (cm) => 0.01 - Area of Debridement (cm) - Length => 0.1 - Area of Debridement (cm) - Width => 0.1 - Total Square (Area) (cm) => 0.01 - Tunneling => No - Undermining/Tunneling => No - Circular Undermining => No - Wound/Ulcer Outcome => Not Healed - Ulcer Cleansing => Rinsed/Irrigated => with Saline - Foul Odor after Cleansing => No - Bioengineered Tissue => No - Bleeding Controlled with => Pressure - Offloading => No - Treatment Response => Procedure => Tolerated Well - Debridement - Subq, 1st 20sq cm => Yes (3) #5 RIGHT PLAntAR - Debridement - Subq, 1st 20sq cm Yes => No 07/18/21 07/25/21 08/01/21 14:50 14:52 14:41 Wound Center Nurse 2 8-left 1st metatarsal ulcer -Time 14:56 -Correct Patient Yes No -Correct Side, Site, Position Yes No -Correct Procedure Yes No -Procedure Performed Yes No -Type of Procedure Debridement -Clinical Debridement Subcutaneous -Tissue Removed Subcutaneous -Post Debridement (cm) - Length 0.1 0 -Post Debridement (cm) - Width 0.1 0 -Post Debridement (cm) - Depth 0.1 0 -Total Square (Post) (cm) 0.01 0 -Area of Debridement (cm) - Length 0.1 0 -Area of Debridement (cm) - Width 0.1 0 -Total Square (Area) (cm) 0.01 0 -Tunneling No -Undermining/Tunneling No -Circular Undermining No -Wound/Ulcer Outcome Not Healed Healed- Epithelialized -Ulcer Cleansing Rinsed/ Irrigated with Saline -Foul Odor after Cleansing No -Bioengineered Tissue No -Bleeding Controlled with Pressure -Offloading No -Treatment Response Procedure Tolerated Well -Debridement - Subq, 1st 20sq cm Yes #7 R 4th toe -Correct Patient No -Correct Side, Site, Position No -Correct Procedure No -Procedure Performed No -Post Debridement (cm) - Length 0 -Post Debridement (cm) - Width 0 -Post Debridement (cm) - Depth 0 -Total Square (Post) (cm) 0 -Area of Debridement (cm) - Length 0 -Area of Debridement (cm) - Width 0 -Total Square (Area) (cm) 0 -Wound/Ulcer Outcome Healed- Epithelialized #5 RIGHT PLAntAR -Time 14:51 14:53 -Correct Patient Yes Yes No -Correct Side, Site, Position Yes Yes No -Correct Procedure Yes Yes No -Procedure Performed Yes Yes No -Type of Procedure Debridement Debridement -Clinical Debridement Subcutaneous Subcutaneous -Tissue Removed Subcutaneous Subcutaneous -Post Debridement (cm) - Length 1.2 0.1 0 -Post Debridement (cm) - Width 0.5 0.5 0 -Post Debridement (cm) - Depth 0.2 0.1 0 -Total Square (Post) (cm) 0.60 0.05 0 -Area of Debridement (cm) - Length 1.2 0.1 0 -Area of Debridement (cm) - Width 0.5 0.5 0 -Total Square (Area) (cm) 0.60 0.05 0 -Tunneling No No -Undermining/Tunneling No No -Circular Undermining No No -Wound/Ulcer Outcome Not Healed Not Healed Healed- Epithelialized -Ulcer Cleansing Rinsed/ Rinsed/ Irrigated with Irrigated with Saline Saline -Foul Odor after Cleansing No No -Bioengineered Tissue No No -Bleeding Controlled with Pressure Pressure -Offloading Yes Yes -Type of Offloading Total Contact Total Contact Cast (TCC) - Cast (TCC) - Right ($) Right ($) -Treatment Response Procedure Procedure Tolerated Well Tolerated Well -Debridement - Subq, 1st 20sq cm Yes No Pain Scale: 0-10 Numeric Is Patient Pain Free? Yes Yes Yes - Nurse 3 - General Ulcer D/C NN Start: 07/18/21 14:28 Freq: Status: Active Protocol: Activity Type Activity Date Activity User E-Sign Co-Sign Detail Recorded Client Recorded Date Recorded By Document 07/18/21 15:12 ML [id number] 07/18/21 15:16 ML Document 07/25/21 15:18 RB [id number] 07/25/21 15:19 RB 07/18/21 07/25/21 15:12 15:18 Wound Care Nurse 3 8-left 1st metatarsal ulcer -Ulcer Cleansing Rinsed/ Irrigated with Saline -Primary Dressing Applied Aquacel AG 2x2 -Primary Dressing Covered/Secured with Dry Gauze -Aquacel AG 2x2 1 #5 RIGHT PLAntAR -Ulcer Cleansing Rinsed/ Rinsed/ Irrigated with Irrigated with Saline Saline -Primary Dressing Applied Aquacel AG 2x2 -Other Dressing aquacel ag then primary layer of TCC -Primary Dressing Covered/Secured with Dry Gauze -Other Covering FOAM DRESSING, TCC UNDERCAST APPLIED -Aquacel AG 2x2 1 Treatment Response Procedure Tolerated Well Pain Scale: 0-10 Numeric Is Patient Pain Free? Yes Yes - Visit Discharge Discharge Condition Stable Stable Ambulatory Status Ambulatory Ambulatory,Cane Transportation Private Auto Medication Reconcilliation completed & No No provided to patient/care provider Clinical Summary of Care Provided Yes Yes Assessment/Plan Assessment/Plan (1) 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 exposed: CODE(S): L97.512 - 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 exposed (2) Venous insufficiency (chronic) (peripheral): CODE(S): I87.2 - Venous insufficiency (chronic) (peripheral) (3) Localized edema: CODE(S): R60.0 - Localized edema (4) Other hereditary and idiopathic neuropathies: CODE(S): G60.8 - Other hereditary and idiopathic neuropathies (5) Chronic ulcer of left foot with fat layer exposed: CODE(S): L97.522 - Non-pressure chronic ulcer of other part of left foot with fat layer exposed PLAN: I reviewed and discussed her case today. Debridement was performed today as noted in the clinical panel to all of the ulcer sites including the peripheral callus. The following work up and care recommendations were made: Her ulcer sites are healed and she was advised to discontinue dressings. To wear either white sock or white gauze over the recently healed ulcer site to check for reoccurrence. To continue to offload with her surgical shoe and heel weightbearing for the next 2 weeks. To continue with compression stockings. To continue with proper diabetic management; her last A1c on file was less than 6%. To keep skin integrity intact with daily soap and water washing gentle lotion application. She will be discharged from the wound healing center at this time will follow up with the foot and ankle Center for risk assessment and potentially to order updated shoes with offloading liners. To call if she has any recurrence or new foot or ankle concerns. I answered all the patient's questions. Note: [employer] speech recognition pencil sorter software was used to create portions of this document. Sound-alike and misspelled words, as well as other pencil sorter errors may be contained in the documentation. 20 minutes was spent on this encounter. This included face to face and non face to face care including preparing for the visit, reviewing the history, performing the exam, counseling and providing education to the patient, family, or caregiver, ordering medications/test/ procedures if indicated as documented, communicating with other healthcare providers, documenting information in the medical record, interpreting / sharing this information when indicated as documented, and care coordination.
== END 2021-08-05 23:59 ==
LOC: WC 14:00
PROVIDERS: PCP Internal Medicine; Referring Provider Podiatrist; Visit Provider Podiatrist
DX: L97.512 Non-pressure chronic ulcer of other part of right foot with fat layer exposed (principal); I87.2 Venous insufficiency (chronic) (peripheral); R60.0 Localized edema; G50.8 Other disorders of trigeminal nerve; L97.522 Non-pressure chronic ulcer of other part of left foot with fat layer exposed
CPT/HCPCS: 11042; 29445; 99213; G0463

== ENCOUNTER 2021-08-15 13:39 | Outpatient (RCR) | payer MEDICARE, SELFPAY ==
[2021-08-06 00:09] VITALS: BP 132/67; PULSE 72; RESP 20; TEMP 36.8
[2021-08-15 13:14] VITALS: BP 144/61; PULSE 68; RESP 16
--- NOTE | 2021-08-15 16:09 | PN.PCM_ITS ---
History of Present Illness Date of Service: 08/15/21 Chief Complaint: Right foot ulcer History of Wound: This 81-year-old female presents to the wound healing center with multiple foot ulcers. She did well with her total contact cast to the right lower extremity last week and kept it clean and dry. She denies fever, chill, nausea, vomiting. She reports the ulcer is healed Progress of Wound: Healed Objective Data Objective Data Vital Signs: Vital Signs Temp Pulse Resp BP 98.3 F 68 16 144/61 H 08/06/21 00:09 08/15/21 13:14 08/15/21 13:14 08/15/21 13:14 Oxygen Delivery Method Room Air Physical Exam Extremity Extremity Narrative: Muscle atrophy noted. Dorsal contraction of lesser digits and prominent metatarsal heads with atrophic fat pad to the metatarsal head region also noted. No fluctuance or bogginess. Skin Wound Narrative: right sub 1st metatarsal head prior ulcer site is now healed with full epithelialization. The left foot ulcer is healed with full epithelialization. There is no deep probing, erythema, streaking, purulence, or odor noted. the adjacent skin is hairless and atrophic. Neuro Neuro Narrative: Lack of epicritic sensation light touch Assessment/Plan Assessment/Plan (1) 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 exposed: CODE(S): L97.512 - 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 exposed (2) Venous insufficiency (chronic) (peripheral): CODE(S): I87.2 - Venous insufficiency (chronic) (peripheral) (3) Localized edema: CODE(S): R60.0 - Localized edema (4) Other hereditary and idiopathic neuropathies: CODE(S): G60.8 - Other hereditary and idiopathic neuropathies (5) Chronic ulcer of left foot with fat layer exposed: CODE(S): L97.522 - Non-pressure chronic ulcer of other part of left foot with fat layer exposed PLAN: I reviewed and discussed her case today. The ulcers are healed and no debridement was performed The following work up and care recommendations were made: Her ulcer sites are healed and she was advised to discontinue dressings. To wear either white sock or white gauze over the recently healed ulcer site to check for reoccurrence. To continue to offload with her surgical shoe and heel weightbearing for the next 2 weeks. To continue with compression stockings. To continue with proper diabetic management; her last A1c on file was less than 6%. To keep skin integrity intact with daily soap and water washing gentle lotion application. She will be discharged from the wound healing center at this time will follow up with the foot and ankle Center for risk assessment and potentially to order updated shoes with offloading liners. She has rheumatoid arthritis and significant foot deformities. I recommend extra-depth shoes that are fitted according to her up-to-date measurements. To call if she has any recurrence or new foot or ankle concerns. I answered all the patient's questions. She is discharged from the wound healing center at this time and will follow up at the foot and ankle Center. Note: [employer] speech recognition hvac maintenance technician software was used to create portions of this document. Sound-alike and misspelled words, as well as other hvac maintenance technician errors may be contained in the documentation. The medical decision making level is low. There is noted low risk of morbidity after considering this treatment plan and diagnostic data. The problems addressed require a low medical decision making level which includes two or more minor problems, a stable chronic illness, or an acute uncomplicated illness or injury.
== END 2021-08-15 15:37 | disposition home or self-care (01) ==
LOC: WC 13:39
PROVIDERS: PCP Internal Medicine; Referring Provider Podiatrist; Visit Provider Podiatrist
DX: L97.512 Non-pressure chronic ulcer of other part of right foot with fat layer exposed (principal); L97.522 Non-pressure chronic ulcer of other part of left foot with fat layer exposed; I87.2 Venous insufficiency (chronic) (peripheral); R60.0 Localized edema; G60.8 Other hereditary and idiopathic neuropathies; M06.9 Rheumatoid arthritis, unspecified
CPT/HCPCS: 99213; G0463

== ENCOUNTER → 2021-09-18 11:58 | Outpatient (CLI) | payer MEDICARE, SELFPAY ==
[2021-09-18 15:14] LABS: Absolute Lymphocyte Count 1.06 X10^3/uL (0.83-4.51); Absolute Neutrophil Count 3.1 X10^3/uL (2.0-7.7); Basophil# 0.03 X10^3/uL; Basophil% 0.6 % (0-1); Eosinophil# 0.26 X10^3/uL; Eosinophils% 5.4 % (0-5); Hematocrit 33.1 % (37-47); Hemoglobin 10.7 g/dL (12.0-15.0); Lymphocyte # 1.06 X10^3/ul (0.83-4.51); Mean Corp Hgb Conc 32.3 g/dL (32-36); Mean Corpuscular Hgb 30.7 pg (27.0-32.0); Mean Corpuscular Volume 94.8 fL (81-99); Mean Platelet Vol. 11.3 fl (6.2-12.0); Monocyte# 0.32 X10^3/uL; Monocyte% 6.6 % (0-10); NRBC Flagged by Analyzer 0 % (0-5); Neutrophil # 3.14 X10^3/uL (2.7-7.7); Neutrophil % 65.2 % (47-70); Platelet Count 216 K/mm3 (150-450); RBC Distribution Width CV 14.7 % (11.6-14.6); RBC Distribution Width SD 50.4 fl (35.1-43.9); Red Blood Count 3.49 M/mm3 (4.2-5.4); White Blood Count 4.8 K/mm3 (4.4-11.0)
[2021-09-18 15:37] LABS: ALB/GLOB Ratio 0.8 RATIO (0.9-2.4); AST(SGOT) 18 U/L (15-37); Alanine Aminotransfer ALT/SGPT 28 U/L (13-56); Albumin, Serum 3.5 g/dL (3.2-5.0); Alkaline Phosphatase 92 U/L (45-117); Anion Gap 8 (5-15); BUN 19 mg/dL (7-18); Calcium,Total 8.9 mg/dL (8.5-10.1); Chloride 105 mmol/L (98-107); Creatinine, Serum 0.95 mg/dL (0.55-1.02); EST Glomerular Filtration Rate 60 mL/min (>60); Est Glom Filt Rate - Afr Amer 72 mL/min (>60); Globulin 4.2 g/dL (2.2-4.2); Glucose 109 mg/dL (74-106); Potassium 4.1 mmol/L (3.5-5.1); Protein, Total 7.7 g/dL (6.4-8.2); Sodium Level 139 mmol/L (136-145)
== END ==
PROVIDERS: PCP Internal Medicine; Referring Provider Internal Medicine Rheumatology; Visit Provider Internal Medicine Rheumatology
DX: M06.09 Rheumatoid arthritis without rheumatoid factor, multiple sites (principal); Z79.899 Other long term (current) drug therapy; M18.11 Unilateral primary osteoarthritis of first carpometacarpal joint, right hand; M17.0 Bilateral primary osteoarthritis of knee; M47.892 Other spondylosis, cervical region; M47.897 Other spondylosis, lumbosacral region; I10 Essential (primary) hypertension
CPT/HCPCS: 36415; 80053; 85025

== ENCOUNTER 2021-12-04 12:27 | Outpatient (CLI) | payer MEDICARE, SELFPAY ==
[2021-12-04 15:21] LABS: Absolute Lymphocyte Count 1.32 X10^3/uL (0.83-4.51); Absolute Neutrophil Count 3.7 X10^3/uL (2.0-7.7); Basophil# 0.05 X10^3/uL; Basophil% 0.9 % (0-1); Eosinophil# 0.33 X10^3/uL; Eosinophils% 5.7 % (0-5); Hematocrit 33.2 % (37-47); Hemoglobin 11.1 g/dL (12.0-15.0); Lymphocyte # 1.32 X10^3/ul (0.83-4.51); Lymphocyte % 22.6 % (19-41); Mean Corp Hgb Conc 33.4 g/dL (32-36); Mean Corpuscular Hgb 30.8 pg (27.0-32.0); Mean Corpuscular Volume 92.2 fL (81-99); Mean Platelet Vol. 10.8 fl (6.2-12.0); Monocyte# 0.44 X10^3/uL; Monocyte% 7.5 % (0-10); NRBC Flagged by Analyzer 0 % (0-5); Neutrophil # 3.68 X10^3/uL (2.7-7.7); Neutrophil % 63.1 % (47-70); Platelet Count 212 K/mm3 (150-450); RBC Distribution Width CV 14.4 % (11.6-14.6); RBC Distribution Width SD 47.9 fl (35.1-43.9); White Blood Count 5.8 K/mm3 (4.4-11.0)
[2021-12-04 15:43] LABS: Cholesterol 152 mg/dL (200); High Density Lipoprotein 52 mg/dL; Triglycerides 160 mg/dL; Very Low Density Lipoprotein 32 mg/dL (5-40)
[2021-12-04 15:49] LABS: ALB/GLOB Ratio 0.9 RATIO (0.9-2.4); AST(SGOT) 21 U/L (15-37); Alanine Aminotransfer ALT/SGPT 31 U/L (13-56); Albumin, Serum 3.7 g/dL (3.2-5.0); Alkaline Phosphatase 86 U/L (45-117); Anion Gap 6 (5-15); BUN 19 mg/dL (7-18); BUN/Creat Ratio 21.6 RATIO (10-20); Chloride 102 mmol/L (98-107); Creatinine, Serum 0.88 mg/dL (0.55-1.02); EST Glomerular Filtration Rate 66 mL/min (>60); Est Glom Filt Rate - Afr Amer 79 mL/min (>60); Globulin 4.2 g/dL (2.2-4.2); Glucose 82 mg/dL (74-106); Potassium 4.1 mmol/L (3.5-5.1); Protein, Total 7.9 g/dL (6.4-8.2); Sodium Level 136 mmol/L (136-145)
== END 2021-12-04 23:59 | disposition home or self-care (01) ==
LOC: MTLAB 12:28
PROVIDERS: PCP Internal Medicine; Referring Provider Internal Medicine Rheumatology; Visit Provider Internal Medicine Rheumatology
DX: E78.00 Pure hypercholesterolemia, unspecified (principal); M06.09 Rheumatoid arthritis without rheumatoid factor, multiple sites; M18.11 Unilateral primary osteoarthritis of first carpometacarpal joint, right hand; M17.0 Bilateral primary osteoarthritis of knee; M47.892 Other spondylosis, cervical region; M47.897 Other spondylosis, lumbosacral region; I10 Essential (primary) hypertension; E78.5 Hyperlipidemia, unspecified; F32.89 Other specified depressive episodes; I83.90 Asymptomatic varicose veins of unspecified lower extremity
CPT/HCPCS: 36415; 80053; 80061; 85025

== ENCOUNTER → 2022-03-07 | Outpatient (CLI) | payer MEDICARE, SELFPAY ==
[2022-03-07 15:52] LABS: Absolute Neutrophil Count 3.6 X10^3/uL (2.0-7.7); Basophil# 0.03 X10^3/uL; Basophil% 0.5 % (0-1); Eosinophil# 0.31 X10^3/uL; Eosinophils% 5.4 % (0-5); Hematocrit 35.7 % (37-47); Hemoglobin 11.7 g/dL (12.0-15.0); Lymphocyte % 21.1 % (19-41); Mean Corp Hgb Conc 32.8 g/dL (32-36); Mean Corpuscular Hgb 31.5 pg (27.0-32.0); Mean Corpuscular Volume 96.2 fL (81-99); Mean Platelet Vol. 11.2 fl (6.2-12.0); Monocyte% 8.8 % (0-10); NRBC Flagged by Analyzer 0 % (0-5); Neutrophil # 3.63 X10^3/uL (2.7-7.7); Neutrophil % 63.7 % (47-70); Platelet Count 203 K/mm3 (150-450); RBC Distribution Width CV 14.2 % (11.6-14.6); RBC Distribution Width SD 48.7 fl (35.1-43.9); Red Blood Count 3.71 M/mm3 (4.2-5.4); White Blood Count 5.7 K/mm3 (4.4-11.0)
[2022-03-07 16:23] LABS: AST(SGOT) 21 U/L (15-37); Alanine Aminotransfer ALT/SGPT 34 U/L (13-56); Albumin, Serum 3.8 g/dL (3.2-5.0); Alkaline Phosphatase 86 U/L (45-117); Anion Gap 7 (5-15); BUN 21 mg/dL (7-18); BUN/Creat Ratio 21.7 RATIO (10-20); Chloride 103 mmol/L (98-107); Creatinine, Serum 0.97 mg/dL (0.55-1.02); EST Glomerular Filtration Rate 59 mL/min (>60); Est Glom Filt Rate - Afr Amer 71 mL/min (>60); Globulin 3.9 g/dL (2.2-4.2); Glucose 113 mg/dL (74-106); Potassium 3.9 mmol/L (3.5-5.1); Protein, Total 7.7 g/dL (6.4-8.2); Sodium Level 136 mmol/L (136-145)
== END | disposition home or self-care (01) ==
LOC: MTLAB 13:54
PROVIDERS: PCP Internal Medicine; Referring Provider Internal Medicine Rheumatology; Visit Provider Internal Medicine Rheumatology
DX: M06.09 Rheumatoid arthritis without rheumatoid factor, multiple sites (principal); M18.11 Unilateral primary osteoarthritis of first carpometacarpal joint, right hand; M17.0 Bilateral primary osteoarthritis of knee; M47.892 Other spondylosis, cervical region; M47.897 Other spondylosis, lumbosacral region; M72.0 Palmar fascial fibromatosis [Dupuytren]; Z79.899 Other long term (current) drug therapy
CPT/HCPCS: 36415; 80053; 85025

== ENCOUNTER 2022-04-11 22:09 | Emergency (ER) | payer MEDICARE, SELFPAY ==
[2022-04-11 22:10] VITALS: BP 142/88; PULSE 84; RESP 16; TEMP 36.1; O2SAT 98; BMI 30.7
--- NOTE | 2022-04-11 23:13 | RAD_ITS ---
EXAM: XR RIGHT SHOULDER COMPLETE, 2 OR MORE VIEWS CLINICAL INDICATION: INJURY TECHNIQUE: Two or more views of the right shoulder. This report was created using [employer] report generation technology. COMPARISON: None. FINDINGS: BONES/JOINTS: Fracture through the anatomical neck of the right humerus with marked angulation. Osteopenic bones. Preservation of the joint space. No sclerotic or destructive changes observed. SOFT TISSUES: Unremarkable. No soft tissue swelling or gas. No radiopaque foreign body. RAD/Shoulder min 2 Views IMPRESSION: 1. Fracture through the anatomical neck of the right humerus with marked angulation. 2. Osteopenic bones. Electronically Signed: Salvatore Farias MD at 0:08 EDT ,
--- NOTE | 2022-04-11 23:13 | RAD_ITS ---
EXAM: XR RIGHT WRIST COMPLETE, 3 OR MORE VIEWS CLINICAL INDICATION: INJURY TECHNIQUE: Frontal, lateral and oblique views of the right wrist. This report was created using [employer] report generation technology. COMPARISON: None. FINDINGS: BONES/JOINTS: Transverse fracture through the distal radial metaphysis with one half bone width posterior displacement. Transverse fracture of the distal ulna approximately 2.5 cm from the distal aspect with mild displacement. Ulnar styloid fracture. Diffusely osteopenic bones. Preservation of the joint space. No sclerotic or destructive changes observed. SOFT TISSUES: Unremarkable. No soft tissue swelling or gas. No radiopaque foreign body. RAD/Wrist min 3 Views IMPRESSION: 1. Transverse fracture through the distal radial metaphysis with one half bone width posterior displacement. 2. Transverse fracture of the distal ulna approximately 2.5 cm from the distal aspect with mild displacement. 3. Ulnar styloid fracture. 4. Diffusely osteopenic bones. Electronically Signed: Salvatore Farias MD at 0:07 EDT ,
--- NOTE | 2022-04-11 23:41 | EDS_ITS ---
HPI History of Present Illness Chief Complaint: Upper Extremity Injury Detail of Chief Complaint: Fell going up 2 steps into the house Informant: patient Occured/Mechanism Mechanism/Context: Yes injury, Yes blunt trauma, Yes fall and Yes same level fall Comment: Injury to right wrist and shoulder Onset/Context/Timing Context: Sudden Onset Timing: Continuous Quality of Pain: Dull, Aching and Throbbing Location: Right shoulder and wrist Current Severity: Moderate Maximum Severity: Severe Worsened by: Transfer from floor to cot Relieved by: Nothing Associated Symptoms Associated Symptoms: Positive for Loss of Funtion; Negative for Parasthesia or Weakness Narrative Narrative: Patient is an 81-year-old woman who states she was putting away a screwdriver. When she went up 2 steps to enter home she tripped. She denies head trauma. She denies loss of conscious. She is not amnestic. She denies neck pain. She denies paresthesia, anesthesia or motor weakness present at the time of the fall. She denies chest pain or shortness of breath. She denies abdominal pain. Denies black or maroon-colored stool. She does have history of iron deficiency anemia. He is not on an anticoagulant. Tetanus Immunization: 5-10 years Prior similar symptoms: No Recent Illness/Hospitalization: No [facility] Medical History (Updated 04/12/22 @ 01:[address] Jomar Mason MD) Cellulitis of right leg Home Medications atorvastatin 20 mg tablet 20 mg PO QHS 12/15/15 [History Last Taken 02/17/19] calcium carbonate 500 mg-vitamin D3 10 mcg (400 unit) chewable tablet 1 tab PO DAILY 12/15/15 [History Last Taken 02/16/19] cholecalciferol (vitamin D3) 25 mcg (1,000 unit) tablet 2,000 unit PO DAILY 12/15/15 [History Last Taken 02/16/19] multivitamin 1 ea PO DAILY 12/15/15 [History Last Taken 02/16/19] paroxetine HCl 20 mg tablet 20 mg PO DAILY 12/15/15 [History Last Taken 02/16/19] amlodipine 2.5 mg tablet 2.5 mg PO DAILY 02/17/19 [History Last Taken 02/17/19] aspirin 325 mg tablet 81 mg PO DAILY 02/17/19 [History Last Taken 02/17/19] epinephrine 0.3 mg/0.3 mL injection, auto-injector 0.3 mg IM Q10M PRN Anaphylaxis 05/09/21 [History Last Taken Unknown] ferrous sulfate 325 mg (65 mg iron) tablet (iron) 325 mg PO DAILY 05/09/21 [History Last Taken Unknown] fluticasone propionate 50 mcg/actuation nasal spray,suspension 2 spray intranasal DAILY 05/09/21 [History Last Taken Unknown] folic acid 1 mg tablet 2 mg PO DAILY 05/09/21 [History Last Taken Unknown] methotrexate 05/09/21 [History Last Taken Unknown] omeprazole 20 mg capsule,delayed release 20 mg PO DAILY 10/09/21 [History Last Taken Unknown] oxycodone-acetaminophen 5 mg-325 mg tablet 1 tab PO Q6H PRN PRN pain 5 days #20 TABLETS 04/12/22 [Rx Last Taken Unknown] Allergy/AdvReac Type Severity Reaction Status Date / Time Penicillins AdvReac Hives Verified 10/11/20 12:59 BEE STINGS Allergy Anaphylaxis Uncoded 10/11/20 12:59 Family History Father Heart disease Surgical History History of bilateral knee replacement History of hysterectomy Social History (Updated 04/12/22 @ 00:[address] Jomar Mason MD) household members: none Smoking Status: Never smoker Tobacco: How many years used: 20 how long ago did patient quit smokin, 1ppd second hand exposure: Yes ROS ROS ED Constitutional Constitutional ED: Denies chills, fever(s), subjective or sweats Eyes Eyes: Denies blurry vision, change in vision or diplopia ENT ENT ED: Reports other Details: Denies dental trauma. Denies epistaxis. ; Denies ear pain, rhinorrhea or sore throat Cardiovascular Cardiovascular: Denies chest pain, palpitations or racing heartbeat Respiratory/Chest Respiratory/Chest: Denies dyspnea or dyspnea on exertion Gastrointestinal Gastrointestinal: Denies abdominal pain, melena, nausea or vomiting Genitourinary Genitourinary ED: Denies dysuria or hematuria Musculoskeletal Musculoskeletal: Reports other Details: Right upper extremity pain documented the narrative portion of the chart ; Denies back pain, myalgias or neck pain Integumentary Denies Abrasions or rash Neurologic Neurologic: Denies headache(s), paresthesias or weakness Endocrine Endocrinology: Denies cold intolerance or heat intolerance Hematologic/Lymphatic Hematologic/Lymphatic: Reports other Details: History of iron deficiency anemia ; Denies easy bleeding, easy bruising or lymphadenopathy EXAM Physical Exam Const Vital Signs: 04/11/22 22:10 Temperature 97.0 F L Temperature Source Temporal Pulse Rate 84 Respiratory Rate 16 Blood Pressure 142/88 H Blood Pressure Mean 106 Pulse Ox 98 Oxygen Delivery Method Room Air Positive well nourished and well developed General Appearance ED: well developed; Negative for cyanotic, diaphoretic or NAD HEENT Reports moist mucous membranes HEENT Narrative: There is no clinical evidence of head trauma. There is no clinical signs of basal skull fracture. There is no septal deviation hematoma. There is no hemotympanum. There is no evidence of dental trauma. Mucosas moist. normocephalic and atraumatic Eyes PERRL and EOMs intact bilaterally Eyes Narrative: There is no subconjunctival hemorrhage. Conjunctive is pink. There is no compl aint of diplopia. She has no evidence of hypoesthesia infraorbital nerve. Neck full ROM and supple Neck Narrative: There is no pain the patient over the spinous process of the cervical vertebrae. Chest Wall inspection of chest normal and palpation of chest normal Resp normal respiratory effort and clear to auscultation bilaterally Resp Narrative: There is no crepitus or subcutaneous air. Cardio regular rate, regular rhythm, S1 normal heart sound, S2 normal heart sound and no murmurs GI non-tender, non-distended and no masses GI Narrative: There is no pain palpation of the pelvis. Auscultation: normoactive bowel sounds Palpation: soft Back/Spine no CVA tenderness Cervical Spine: Negative for cervical spine tenderness Thoracic Spine / Upper Back: Negative for thoracic spinal tenderness Lumbar Spine / Lower Back: Negative for lumbar spinal tenderness Extremity Negative for normal to inspection or full ROM Extremity Narrative: There is deformity of the right wrist and patient is holding her right upper extremity internally rotated and a deducted. Axillary, median, radial and ulnar nerve function are intact. Neuro oriented x3, CN's II-XII intact bilaterally, no focal motor deficits and no sensory deficits noted Neuro Narrative: GCS is 15. Sensorium / Orientation: alert Motor Exam: strength 5/5 throughout Psych mental status grossly normal Skin General Skin Exam: Negative for petechiae Lesions: no lesions Rashes: no rashes MDM MDM MDM Narrative Medical decision making narrative: Obtain x-ray to rule out shoulder and wrist fracture. X-rays were independently interpreted by me and reveal a surgical neck fracture of the right humerus and displaced fracture of the radius and ulna. These are extra-articular. Radiography Diagnostic Testing: Three-view x-ray of the right shoulder reveals a displaced humeral fracture at the surgical neck. There is no dislocation. This was independently interpreted by me at 2340. Three-view x-ray of the right wrist reveals a transverse echotexture articular fracture of the distal radius with 75% displacement. There is also a fracture of the metaphysis involving the ulna. The wrist fracture will require reduction. Post reduction film, 3 views interpreted by me at 0056 reveals good alignment on the AP view. On the lateral there is loss of volar tilt. The fracture appears to be comminuted. It is acceptable. Case was discussed with Dr. Jaydon Dougherty. She is to follow-up with Dr. Machuca this week. Patient was informed if this moves she will require surgical repair i.e. open reduction internal fixation. Presently the reduction is acceptable. She was discharged with prescription for Percocet. Rhythm Strip Rhythm Strip: Sinus Rhythm Rate: 80 Procedures Other Procedures Procedure(s): Patient has not eaten since 6:00 and she is in significant discomfort in spite of morphine will perform procedural sedation since patient's right arm will need to be manipulated and any type of movement causes her to have significant shoulder pain. Patient was Splane risk benefits of procedural sedation using propofol. She denies allergy to egg products or soy products. She has had no prior complications with sedation. We will contact orthopedics. Dr. Jaydon Dougherty is on-call for Dr. Carli Machuca who has seen patient in the past. Timeout was performed. Start time: 00: 2 0 End time 00: 3 4 Close reduction was performed. The fracture is unstable. Patient was placed in a short arm fabricated AP plaster splint applied by me. Post reduction films were ordered. Discharge Plan Triage Chief Complaint: Upper Extremity Injury ED Provider: Jomar Mason Dx/Rx/DC Orders Clinical Impression: Traumatic closed displaced fracture of distal end of right radius and ulna, Displaced fracture of surgical neck of right humerus, Injury due to fall Instructions: ED Colles Fracture, Reduction Required, ED Fracture, Shoulder Prescriptions: New oxycodone-acetaminophen [oxycodone-acetaminophen] 5-325 mg tablet 1 tab PO Q6H PRN PRN (Reason: pain) 5 Days Qty: 20 0RF No Action omeprazole 20 mg capsule,delayed release(DR/EC) 20 mg PO DAILY multivitamin 1 EACH tablet 1 ea PO DAILY Label Comments: supplement atorvastatin 20 MG tablet 20 mg PO QHS Label Comments: lower cholesterol paroxetine HCl 20 MG tablet 20 mg PO DAILY Label Comments: mood enhancer calcium carbonate-vitamin D3 1 EACH tablet,chewable 1 tab PO DAILY Label Comments: supplement cholecalciferol (vitamin D3) 1,000 UNIT tablet 2,000 unit PO DAILY Label Comments: supplement amlodipine 2.5 MG tablet 2.5 mg PO DAILY aspirin 325 MG tablet 81 mg PO DAILY ferrous sulfate [iron] 325 mg (65 mg iron) Tablet 325 mg PO DAILY folic acid 1 mg Tablet 2 mg PO DAILY epinephrine 0.3 mg/0.3 mL Auto-Injector 0.3 mg IM Q10M PRN (Reason: Anaphylaxis) fluticasone propionate [Flonase] 50 mcg/actuation [place],Suspension 2 spray INTRANASAL DAILY methotrexate Primary Care Provider: Angelika Monsivais Referrals: Angelika Monsivais MD [Primary Care Provider] - Salvatore Cervantes DO [STAFF PHYSICIAN] - 3-5 Days Disposition Disposition: Home, Self Care
[2022-04-12] MEDS: Morphine 4 MG/ML Syringe IV ×2 (00:16→01:31)
[2022-04-12] MEDS: Ondansetron 4 MG/2 ML Vial IV (00:16)
[2022-04-12 00:19] VITALS: BP 162/90; PULSE 61; RESP 18; O2SAT 100
[2022-04-12 00:20] VITALS: BP 162/90; BP 168/71; BP 170/74; PULSE 53; PULSE 55; PULSE 61; PULSE 62; RESP 16; RESP 18; RESP 20; RESP 23; O2SAT 100; O2SAT 85
[2022-04-12 00:35] VITALS: BP 167/79; O2SAT 100
--- NOTE | 2022-04-12 00:35 | RAD_ITS ---
EXAM: XR RIGHT WRIST COMPLETE, 3 OR MORE VIEWS CLINICAL INDICATION: Injury/Pain -- Post reduction TECHNIQUE: Frontal, lateral and oblique views of the right wrist. This report was created using [employer] report [email or web address] technology. COMPARISON: None. FINDINGS: BONES/JOINTS: Slight volar angulation of the distal ulnar fragment. SOFT TISSUES: Post reduction there is now slight anterior displacement of the distal radial fragment. Normal length and slight volar tilt of the distal radial fragment. No soft tissue swelling or gas. OTHER FINDINGS: The plaster splint obscures detail. RAD/Wrist min 3 Views IMPRESSION: 1. Post reduction there is now slight anterior displacement of the distal radial fragment. Normal length and slight volar tilt of the distal radial fragment. 2. Slight volar angulation of the distal ulnar fragment. Electronically Signed: Salvatore Farias MD at 1:31 EDT ,
[2022-04-12] MEDS: Propofol 200 MG/20 ML Vial IV BOLUS (00:38)
[2022-04-12 00:40] VITALS: BP 172/67; O2SAT 100
[2022-04-12 00:45] VITALS: BP 150/64; O2SAT 100
[2022-04-12 01:59] VITALS: BP 155/67; PULSE 65; RESP 18; O2SAT 93
== END 2022-04-12 02:00 | disposition home or self-care (01) ==
PROVIDERS: Emergency Provider Emergency Medicine; PCP Internal Medicine; Visit Provider Emergency Medicine
DX: S52.601A Unspecified fracture of lower end of right ulna, initial encounter for closed fracture (principal); S52.501A Unspecified fracture of the lower end of right radius, initial encounter for closed fracture; S42.211A Unspecified displaced fracture of surgical neck of right humerus, initial encounter for closed fracture; Z87.891 Personal history of nicotine dependence; Z79.899 Other long term (current) drug therapy; Z79.82 Long term (current) use of aspirin; W10.9XXA Fall (on) (from) unspecified stairs and steps, initial encounter
CPT/HCPCS: 73030; 73110; 96374; 96375; 96376; 99152; 99285; A4216; J2405

== ENCOUNTER → 2022-05-27 | Outpatient (CLI) | payer MEDICARE, SELFPAY ==
[2022-05-27 15:06] LABS: Absolute Lymphocyte Count 1.16 X10^3/uL (0.83-4.51); Absolute Neutrophil Count 3.1 X10^3/uL (2.0-7.7); Basophil# 0.04 X10^3/uL; Basophil% 0.8 % (0-1); Eosinophil# 0.29 X10^3/uL; Eosinophils% 5.8 % (0-5); Hematocrit 34.7 % (37-47); Hemoglobin 11.5 g/dL (12.0-15.0); Lymphocyte # 1.16 X10^3/ul (0.83-4.51); Lymphocyte % 23.2 % (19-41); Mean Corp Hgb Conc 33.1 g/dL (32-36); Mean Corpuscular Hgb 31.7 pg (27.0-32.0); Mean Corpuscular Volume 95.6 fL (81-99); Mean Platelet Vol. 10.6 fl (6.2-12.0); Monocyte# 0.44 X10^3/uL; Monocyte% 8.8 % (0-10); NRBC Flagged by Analyzer 0 % (0-5); Neutrophil # 3.05 X10^3/uL (2.7-7.7); Platelet Count 214 K/mm3 (150-450); RBC Distribution Width CV 14.3 % (11.6-14.6); RBC Distribution Width SD 49.4 fl (35.1-43.9); Red Blood Count 3.63 M/mm3 (4.2-5.4)
[2022-05-27 15:31] LABS: ALB/GLOB Ratio 0.9 RATIO (0.9-2.4); AST(SGOT) 27 U/L (15-37); Alanine Aminotransfer ALT/SGPT 30 U/L (13-56); Albumin, Serum 3.6 g/dL (3.2-5.0); Alkaline Phosphatase 95 U/L (45-117); Anion Gap 7 (5-15); BUN 19 mg/dL (7-18); BUN/Creat Ratio 20.7 RATIO (10-20); Chloride 102 mmol/L (98-107); Creatinine, Serum 0.92 mg/dL (0.55-1.02); EST Glomerular Filtration Rate 62 mL/min (>60); Est Glom Filt Rate - Afr Amer 75 mL/min (>60); Globulin 4.1 g/dL (2.2-4.2); Glucose 118 mg/dL (74-106); Potassium 3.8 mmol/L (3.5-5.1); Protein, Total 7.7 g/dL (6.4-8.2); Sodium Level 136 mmol/L (136-145)
== END | disposition home or self-care (01) ==
LOC: MTLAB 13:50
PROVIDERS: PCP Internal Medicine; Referring Provider Internal Medicine Rheumatology; Visit Provider Internal Medicine Rheumatology
DX: M06.09 Rheumatoid arthritis without rheumatoid factor, multiple sites (principal); M18.11 Unilateral primary osteoarthritis of first carpometacarpal joint, right hand; M17.0 Bilateral primary osteoarthritis of knee; M47.897 Other spondylosis, lumbosacral region; M47.892 Other spondylosis, cervical region; M72.0 Palmar fascial fibromatosis [Dupuytren]; I10 Essential (primary) hypertension; E78.5 Hyperlipidemia, unspecified; I83.90 Asymptomatic varicose veins of unspecified lower extremity; F32.A Depression, unspecified; Z79.899 Other long term (current) drug therapy
CPT/HCPCS: 36415; 80053; 85025

== ENCOUNTER 2022-06-01 10:18 | Inpatient (IN) | payer MEDICARE, SELFPAY ==
[2022-06-01] VITALS (15 sets, daily range): BP systolic 104–168; BP diastolic 43–89; PULSE 67–88; RESP 14–28; TEMP 36.5–39.6; O2SAT 87–98; BMI 30.7; BMI 31.1
--- NOTE | 2022-06-01 10:37 | RAD_ITS ---
STUDY: X-RAY CHEST REASON FOR EXAM: Female, 81 years old. Fever and cough TECHNIQUE: Single AP portable view of the chest. COMPARISON: None. FINDINGS: EKG leads overlie the chest Chronic interstitial changes in both lung barnes without a superimposed acute pulmonary process. There is no demonstrated pleural abnormality. Normal size heart. Normal mediastinum and fady. Normal visualized pulmonary arteries. Normal visualized aortic arch and descending thoracic aorta. There are diffuse degenerative changes of the visualized thoracic spine. Likely chronic surgical neck fracture of the right humerus. There is no demonstrated abnormality of the visualized soft tissue structures of the upper abdomen. RAD/Chest 1 View (Portable) IMPRESSION: Chronic interstitial changes, no superimposed acute pulmonary process Likely chronic surgical neck fracture of the right humerus but there are no previous studies available for comparison Electronically Signed: Sixto Montoya MD at 11:26 EDT ,
--- NOTE | 2022-06-01 10:37 | EKG12_ITS ---
Test Reason : DYSRHYTHMIA Blood Pressure : / mmHG Vent. Rate : 082 BPM Atrial Rate : 082 BPM P-R Int : 176 ms QRS Dur : 074 ms QT Int : 340 ms P-R-T Axes : 027 -16 108 degrees QTc Int : 397 ms Normal sinus rhythm ST & T wave abnormality, consider lateral ischemia Abnormal ECG Confirmed by MONIQUE BOURGEOIS, YANCY ([id number]), brands editor ROSIE FINNEGAN ([id number]) on 06/04/2022 7:51:27 AM Referred By: AMMON Confirmed By:YANCY AMAYA MD
--- NOTE | 2022-06-01 10:37 | RAD_ITS ---
STUDY: X-RAY - RIGHT FOOT CLINICAL: Female, 81 years old. Pain TECHNIQUE: 3 view(s) of the foot. COMPARISON: None. FINDINGS: Normal talus and tarsal bones. Calcaneal spurs Normal visualized subtalar, talonavicular, calcaneocuboid, tarsal and tarsometatarsal articulations. Normal metatarsi. There is degenerative arthrosis of the metatarsophalangeal joint of the hallux . Normal tibial and fibular sesamoid bones. Normal interphalangeal joint of the great toe. Normal phalanges of the great toe. Normal second through fifth metatarsophalangeal joints. PIP and DIP joint arthrosis The soft tissue structures are unremarkable. RAD/Foot min 3 Views IMPRESSION: Polyarticular arthrosis with calcaneal spurs, no demonstrated fracture or suspicious osseous lesion Electronically Signed: Sixto Montoya MD at 11:25 EDT ,
--- NOTE | 2022-06-01 10:37 | RAD_ITS ---
STUDY: X-RAY - RIGHT TIBIA AND FIBULA REASON FOR EXAM: Female, 81 years old. Pain TECHNIQUE: 2 view(s) of the tibia and fibula were obtained. COMPARISON: None. FINDINGS: There is demineralization of the tibia. There is demineralization of the fibula. Replaced knee joint free of complication The soft tissue structures are unremarkable. RAD/Tibia & Fibula 2 Views IMPRESSION: Osteopenia, no demonstrated fracture Electronically Signed: Sixto Montoya MD at 11:27 EDT ,
--- NOTE | 2022-06-01 10:48 | EDS_ITS ---
HPI History of Present Illness Chief Complaint: Nausea/Vomiting Narrative Narrative: 81-year-old female presenting with cellulitis. She believes it started a few days ago. 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 She states that her bone pushes to the skin here. She states that she cannot feel her foot on the right but also states she is not diabetic. She noticed that her right foot was swollen at red. She denies any significant trauma to the foot. She states that she sees podiatry as an outpatient and has been seen by wound care. She notes that she has had a fever as high as 102 last night. She is also had nausea and vomiting for the last 3 to 4 days. She states has not been able to eat anything. She denies abdominal pain however. Patient states that since that time her right leg is erythematous and warm which seems to stem from the foot. She states that she had previously had to be hospitalized for this after failing outpatient therapy with doxycycline. Patient denies chest pain, palpitations, shortness of breath, cough. She does state that she has body aches and chills. She states that I do not know if I have COVID or not. She states she was recently at another facility where her had a skin graft. Her has not been ill. No known sick contacts. Of note the patient does state that she has fairly bad right arm pain. She states between her arm pain and her right leg pain she has been very sedentary. She denies a history of DVT and is not anticoagulated. [facility] Medical History Cellulitis of right leg HLD (hyperlipidemia) HTN (hypertension) Home Medications atorvastatin 20 mg tablet 20 mg PO QHS 12/15/15 [History Last Taken 02/17/19] calcium carbonate 500 mg-vitamin D3 10 mcg (400 unit) chewable tablet 1 tab PO DAILY 12/15/15 [History Last Taken 02/16/19] cholecalciferol (vitamin D3) 25 mcg (1,000 unit) tablet 2,000 unit PO DAILY 12/15/15 [History Last Taken 02/16/19] multivitamin 1 ea PO DAILY 12/15/15 [History Last Taken 02/16/19] paroxetine HCl 20 mg tablet 20 mg PO DAILY 12/15/15 [History Last Taken 02/16/19] amlodipine 2.5 mg tablet 2.5 mg PO DAILY 02/17/19 [History Last Taken 02/17/19] aspirin 325 mg tablet 81 mg PO DAILY 02/17/19 [History Last Taken 02/17/19] epinephrine 0.3 mg/0.3 mL injection, auto-injector 0.3 mg IM Q10M PRN Anaphylaxis 05/09/21 [History Last Taken Unknown] ferrous sulfate 325 mg (65 mg iron) tablet (iron) 325 mg PO DAILY 05/09/21 [History Last Taken Unknown] fluticasone propionate 50 mcg/actuation nasal spray,suspension 2 spray intranasal DAILY 05/09/21 [History Last Taken Unknown] folic acid 1 mg tablet 2 mg PO DAILY 05/09/21 [History Last Taken Unknown] methotrexate 2.5 mg QWEEK 05/09/21 [History Last Taken Unknown] omeprazole 20 mg capsule,delayed release 20 mg PO DAILY 10/09/21 [History Last Taken Unknown] Allergy/AdvReac Type Severity Reaction Status Date / Time bee venom protein (honey bee) Allergy Anaphylaxis Verified 06/01/22 10:21 Penicillins AdvReac Hives Verified 06/01/22 10:21 Family History Father Heart disease Surgical History History of bilateral knee replacement History of hysterectomy History of hysterectomy Hx of appendectomy Social History household members: none Smoking Status: Former smoker Tobacco: How many years used: 20 how long ago did patient quit smokin, 1ppd second hand exposure: Yes ROS ROS ED Constitutional Constitutional ED: Reports chills and fever(s) Eyes Eyes: Denies change in vision ENT ENT ED: Denies ear pain or rhinorrhea Cardiovascular Cardiovascular: Denies chest pain or palpitations Respiratory/Chest Respiratory/Chest: Denies cough or dyspnea Gastrointestinal Gastrointestinal: Denies abdominal pain or constipation Genitourinary Genitourinary ED: Denies dysuria Integumentary Reports Abrasions and rash Neurologic Neurologic: Denies headache(s) Psychiatric Psychiatric: Denies anxiety or depression Endocrine Endocrinology: Denies cold intolerance EXAM Physical Exam Const Vital Signs: 06/01/22 10:21 06/01/22 10:40 06/01/22 10:40 Temperature 98 F Temperature Source Temporal Pulse Rate 88 80 Respiratory Rate 14 28 H Blood Pressure 168/63 H Blood Pressure Mean 98 Pulse Ox 94 95 96 Oxygen Delivery Method Room Air Room Air Room Air Oxygen Flow Rate (L/min) 06/01/22 10:57 06/01/22 10:57 06/01/22 11:06 Temperature 103.1 F H 103.1 F H Temperature Source Oral Oral Pulse Rate 82 Respiratory Rate 22 H Blood Pressure 156/50 H Blood Pressure Mean 85 Pulse Ox 93 87 Oxygen Delivery Method Room Air Room Air Oxygen Flow Rate (L/min) 06/01/22 11:07 06/01/22 12:11 06/01/22 12:11 Temperature 103.2 F H 103.2 F H Temperature Source Oral Oral Pulse Rate 80 Respiratory Rate 25 H Blood Pressure 157/54 H Blood Pressure Mean 88 Pulse Ox 95 97 Oxygen Delivery Method Nasal Cannula Nasal Cannula Oxygen Flow Rate (L/min) 2 2 Positive well nourished General Appearance ED: NAD HEENT atraumatic Eyes PERRL and EOMs intact bilaterally Resp normal respiratory effort Auscultation: Negative for rales or rhonchi Cardio regular rhythm GI normal to inspection, nondistended, normoactive bowel sounds Neuro oriented x3 and CN's II-XII intact bilaterally Sensorium / Orientation: alert Motor Exam: strength 5/5 throughout Psych mental status grossly normal and thought process normal Skin Skin Narrative: Small ulceration on the medial aspect of the right fat pad of the right foot. There is some redness and erythema which extends from this around the toes. This does extend over the dorsum of the foot and is nearly circumferential over the tibial and calf region. It is mildly tender to palpation. No crepitance is appreciated. MDM MDM MDM Narrative Medical decision making narrative: Patient presenting with right lower extremity swelling with increased warmth as well as a foot wound which appears to be the nidus for the infection. She states that she has neuropathy but is not diabetic. She states that her bone poked through her skin on the foot and she has seen wound care. Because of her fever which spiked here at 103.1 as well as becoming a slightly tachypneic with respiratory rate of 22 I did obtain a sepsis work-up. Patient was given Ancef 2 g IV because this is what she was given last time she was hospitalized for cellulitis which seem to work. Patient was given morphine, Zofran, 1 L of normal saline, a gram of Tylenol. I did test her for COVID and this is negative. Her CBC shows a leukocytosis of 14.0 with a left shift. Hemoglobin hematocrit are stable. BMP shows a mild increase in the creatinine at 1.23 and mild hyponatremia with a sodium of 131. Lactic acid returned at 1.8. Her CRP is elevated at 84.80, and her ESR is elevated at 46. X-rays of the right foot and tib-fib do not show any acute fractures or evidence of osteomyelitis my interpretation. There is no subcutaneous emphysema. I did consider DVT in my differential of the leg swelling although patient states she does not have a history. In questioning her about this I asked her if she was having any chest pain or shortness of breath and she states that she does have some chronic right arm pain from a recent fracture. She states she does not have any pain across the front of her chest, and is unable to tell me definitively if she does have back pain across her upper back. I did obtain an EKG which on my interpretation shows a normal sinus rhythm with a ventricular rate of 82 bpm with T wave inversions in leads I and aVL. There is no significant ST elevation or depression. Chest x-ray on my interpretation shows no acute cardiopulmonary process. 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 The patient's high-sensitivity troponin came back at 150, and now the patient has had to be put on oxygen because she desaturated down to 87. It is unclear whether this was due to the morphine. This does raise my suspicion for a PE so I will obtain a CTA. I do not have an DVT study available currently. CTA of the chest was negative for PE or other infiltrate. I had the tech on-call, do a duplex study of the right lower extremity which is also negative for DVT. It was noted that she had some lymphadenopathy. Unclear what the etiology of the elevated troponin is. I will discuss this with the hospitalist for admission. Impression: 1. Right lower extremity cellulitis 2. Febrile illness 3. Elevated troponin Lab Data Attestation: I reviewed the patient's lab results. Labs: Laboratory Results - last 24 hr 06/01/22 06/01/22 06/01/22 10:35 10:35 10:35 WBC 14.0 H RBC 3.99 L Hgb 12.4 Hct 37.3 MCV 93.5 MCH 31.1 MCHC 33.2 RDW Std Deviation 49.6 H RDW Coeff of Danny 14.7 H Plt Count 177 MPV 10.8 Immature Gran % (Auto) 0.600 Neut % (Auto) 93.2 H Lymph % (Auto) 3.0 L [place] % (Auto) 3.1 Eos % (Auto) 0.0 Baso % (Auto) 0.1 Absolute Neuts (auto) 13.1 H Absolute Lymphs (auto) 0.42 L Nucleated RBC % 0 ESR 46 H Sodium 131 L Potassium 3.9 Chloride 97 L Carbon Dioxide 26.0 Anion Gap 8 BUN 17 Creatinine 1.23 H Estim Creat Clear Calc 33.58 Est GFR (MDRD) Af Amer 54 L Est GFR (MDRD) Non-Af 44 L BUN/Creatinine Ratio 13.8 Glucose 134 H Lactic Acid 1.8 Calcium 9.4 Total Bilirubin 1.00 AST 36 ALT 25 Alkaline Phosphatase 85 Troponin I High Sens C-React Prot Ext Range 84.80 H Total Protein 8.2 Albumin 3.9 Globulin 4.3 H Albumin/Globulin Ratio 0.9 Urine Color Urine Clarity Urine pH Ur Specific Odell Urine Protein Urine Glucose (UA) Urine Ketones Urine Occult Blood Urine Nitrite Urine Bilirubin Urine Urobilinogen Ur Leukocyte Esterase Urine RBC Urine WBC Ur Squamous Epith Cells Urine Bacteria Urine Mucus 06/01/22 06/01/22 10:35 11:22 WBC RBC Hgb Hct MCV MCH MCHC RDW Std Deviation RDW Coeff of Danny Plt Count MPV Immature Gran % (Auto) Neut % (Auto) Lymph % (Auto) [place] % (Auto) Eos % (Auto) Baso % (Auto) Absolute Neuts (auto) Absolute Lymphs (auto) Nucleated RBC % ESR Sodium Potassium Chloride Carbon Dioxide Anion Gap BUN Creatinine Estim Creat Clear Calc Est GFR (MDRD) Af Amer Est GFR (MDRD) Non-Af BUN/Creatinine Ratio Glucose Lactic Acid Calcium Total Bilirubin AST ALT Alkaline Phosphatase Troponin I High Sens 150 H* C-React Prot Ext Range Total Protein Albumin Globulin Albumin/Globulin Ratio Urine Color Yellow Urine Clarity Clear Urine pH 6.5 Ur Specific Odell 1.010 Urine Protein 30 H Urine Glucose (UA) Normal Urine Ketones 5 H Urine Occult Blood 50 H Urine Nitrite Negative Urine Bilirubin Negative Urine Urobilinogen 1 H Ur Leukocyte Esterase Negative Urine RBC 0 SEEN Urine WBC 0 SEEN Ur Squamous Epith Cells 0 SEEN Urine Bacteria 0 SEEN Urine Mucus 0 SEEN Radiography Diagnostic Testing: Clinical Impression(s) from Imaging Studies Chest X-Ray 06/01/22 10:37 IMPRESSION: Chronic interstitial changes, no superimposed acute pulmonary process Likely chronic surgical neck fracture of the right humerus but there are no previous studies available for comparison Electronically Signed: Sixto Montoya MD at 11:26 EDT Reading Location ID and State: [facility] / [place] , Service support , Foot X-Ray 06/01/22 10:37 IMPRESSION: Polyarticular arthrosis with calcaneal spurs, no demonstrated fracture or suspicious osseous lesion Electronically Signed: Sixto Montoya MD at 11:25 EDT Reading Location ID and State: [facility] / [place] , Service support , Tibia/Fibula X-Ray 06/01/22 10:37 IMPRESSION: Osteopenia, no demonstrated fracture Electronically Signed: Sixto Montoya MD at 11:27 EDT Reading Location ID and State: [facility] / [place] , Service support , Chest CTA 06/01/22 11:33 IMPRESSION: No demonstrated PE, or thoracic aortic aneurysm or dissection Hyperexpanded lungs with chronic interstitial changes, honeycombing in the periphery, nonspecific pleural thickening and dependent atelectasis. No organized infiltrate. Prominent retrocardiac hiatal hernia with CT evidence of reflux esophagitis Electronically Signed: Sixto Montoya MD at 12:25 EDT , Discharge Plan Disposition Disposition: Acute Care Hospital [facility] Discharge Date/Time: 06/01/22 13:37
[2022-06-01] MEDS: Ondansetron 4 MG/2 ML Vial IV (10:51)
[2022-06-01] MEDS: Morphine 4 MG/ML Syringe IV (10:51)
[2022-06-01] MEDS: 0.9% Normal Saline 1,000 ML 999 ML IV ×2 (10:52→12:32)
[2022-06-01 10:58] LABS: Erythrocyte Sedimentation Rate 46 mm/hr (0-30)
[2022-06-01 10:59] LABS: Absolute Lymphocyte Count 0.42 X10^3/uL (0.83-4.51); Absolute Neutrophil Count 13.1 X10^3/uL (2.0-7.7); Basophil# 0.02 X10^3/uL; Basophil% 0.1 % (0-1); Hematocrit 37.3 % (37-47); Hemoglobin 12.4 g/dL (12.0-15.0); Lymphocyte # 0.42 X10^3/ul (0.83-4.51); Mean Corp Hgb Conc 33.2 g/dL (32-36); Mean Corpuscular Hgb 31.1 pg (27.0-32.0); Mean Corpuscular Volume 93.5 fL (81-99); Mean Platelet Vol. 10.8 fl (6.2-12.0); Monocyte# 0.43 X10^3/uL; Monocyte% 3.1 % (0-10); NRBC Flagged by Analyzer 0 % (0-5); Neutrophil # 13.07 X10^3/uL (2.7-7.7); Neutrophil % 93.2 % (47-70); POSITIVE DIFFERENTIAL YES; Platelet Count 177 K/mm3 (150-450); RBC Distribution Width CV 14.7 % (11.6-14.6); RBC Distribution Width SD 49.6 fl (35.1-43.9); Red Blood Count 3.99 M/mm3 (4.2-5.4)
[2022-06-01 11:01] LABS: Differential Indicated SCAN CRITERIA MET
[2022-06-01 11:12] LABS: ALB/GLOB Ratio 0.9 RATIO (0.9-2.4); AST(SGOT) 36 U/L (15-37); Alanine Aminotransfer ALT/SGPT 25 U/L (13-56); Albumin, Serum 3.9 g/dL (3.2-5.0); Alkaline Phosphatase 85 U/L (45-117); Anion Gap 8 (5-15); BUN 17 mg/dL (7-18); BUN/Creat Ratio 13.8 RATIO (10-20); Calcium,Total 9.4 mg/dL (8.5-10.1); Chloride 97 mmol/L (98-107); Creatinine, Serum 1.23 mg/dL (0.55-1.02); EST Glomerular Filtration Rate 44 mL/min (>60); Est Glom Filt Rate - Afr Amer 54 mL/min (>60); Estimated Creatinine Clearance 33.58 ml/min; Globulin 4.3 g/dL (2.2-4.2); Glucose 134 mg/dL (74-106); Potassium 3.9 mmol/L (3.5-5.1); Protein, Total 8.2 g/dL (6.4-8.2); Sodium Level 131 mmol/L (136-145)
[2022-06-01 11:20] LABS: Lactic Acid 1.8 mmol/L (0.4-1.9)
[2022-06-01] MEDS: Acetaminophen 500 MG Tablet 1000 MG PO (11:23)
[2022-06-01] MEDS: Cefazolin 2 GM in 0.9% Normal Saline 100 ML IV (11:24)
[2022-06-01 11:26] LABS: Troponin-I HS 150 pg/mL (3.0-54.0)
[2022-06-01 11:28] LABS: Bacteria 0 SEEN /hpf (None Seen); Mucous, Urine 0 SEEN /hpf (<or=2+); Red Blood Cells-Urine 0 SEEN /hpf (0-5); Squamous Epithelial Cells - UA 0 SEEN /hpf (5-10); White Blood Cells 0 SEEN /hpf (0-5)
[2022-06-01 11:29] LABS: Color, Urine Yellow (Yellow); Glucose, Dipstick Normal (Normal); Ketone-Dipstick 5 mg/dl (Negative); Leukocyte Esterase-Dipstick Negative /ul (Negative); Nitrite-Dipstick Negative (Negative); Occult Blood-Urine 50 /ul (Negative); Protein-Dipstick 30 mg/dl (Negative); Urine Bilirubin Dipstick Negative (Negative); Urine Clarity Clear (Clear); Urine Urobilinogen 1 mg/dl (Normal); Urine pH 6.5 (5.0 - 8.0)
--- NOTE | 2022-06-01 11:33 | CT_ITS ---
STUDY: CTA CHEST REASON FOR EXAM: Female, 81 years old. Acute chest pain, diaphoresis RADIATION DOSAGE (If Supplied By Facility): CTDIvol = ( 16.21 ) mGy, DLP = ( 504.23 ) mGycm TECHNIQUE: The examination was performed with the intravenous administration of IV 75mL [id number]-[id number]. Post-processing of the angiographic images was performed, with multiplanar reformation and 3D reconstruction. Individualized dose optimization techniques were used for this CT. COMPARISON: None. FINDINGS: Normal enhancement of the main pulmonary artery and right and left pulmonary arteries. Normal enhancement of the bilateral peripheral pulmonary arteries. There is no demonstrated pulmonary embolism. Normal thoracic aorta and visualized great vessels. There is no demonstrated aortic dissection. Normal heart and pericardium. There are calcifications of the coronary arteries. Normal mediastinum. Normal hilar regions. There is peribronchial thickening. Chronic interstitial changes in both lung barnes with honeycombing in the periphery and some emphysematous blebs. No organizing infiltrate, there is dependent atelectasis. Normal pulmonary parenchyma. Normal pleura. Normal chest wall structures. There are degenerative changes of thoracic spine. Cuts through the upper abdomen show a prominent retrocardiac hiatal hernia with distention of the esophagus suggesting reflux esophagitis CT/CTA Chest W/WO Contrast IMPRESSION: No demonstrated PE, or thoracic aortic aneurysm or dissection Hyperexpanded lungs with chronic interstitial changes, honeycombing in the periphery, nonspecific pleural thickening and dependent atelectasis. No organized infiltrate. Prominent retrocardiac hiatal hernia with CT evidence of reflux esophagitis Electronically Signed: Sixto Montoya MD at 12:25 EDT ,
--- NOTE | 2022-06-01 11:41 | VDLE_ITS ---
Reason For Study: Pain RIGHT GSV is normal. CFV is compressible, spontaneous, phasic, competent and demonstrates normal augmentation. FV is compressible, spontaneous, phasic, competent and demonstrates normal augmentation. POP V is compressible, spontaneous, phasic, competent and demonstrates normal augmentation. T/P Trunk is compressible. PTV is compressible. RT PerV is compressible. Lymph nodes noted in the right groin with arterial flow. Procedure This is a venous duplex using B-mode, color flow and spectral Doppler. Exam performed portable in ED. A preliminary report was called and/or faxed to Laurie FUNES and Dr. Schulte. VL/Venous Duplex US, Unilateral Interpretation Summary There is no evidence of right lower extremity deep vein thrombosis. Right great saphenous vein appears patent and compressible segmentally. Right groin lymph nodes measuring 1.17 x 1.66 x 2.88 cm and 0.96 x 2 x 3.12 cm Ordering Physician: Juanito Schulte Referring Physician: Angelika Monsivais M.D. Performed By: Brigette Cavazos RVT
[2022-06-01] MEDS: Aspirin 81 MG TAB.CHEW 324 MG PO (11:48)
--- NOTE | 2022-06-01 13:20 | PCM.HP.STD ---
HPI - General General Date of Admission: 06/01/22 Date of Service: 06/01/22 Chief Complaint: Right foot and leg pain, redness and fever since 05/30/[address] CHERRY, is a 81 F came to ED for worsening of right foot and leg pain, redness fever since since 05/30/2022. She felt chills feverish and nausea. In ED temperature noted 102.9 Fahrenheit. She denies vomiting, headache, diarrhea. 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 Barraza in wound center. She wears orthotics in the right foot. There is no discharge In ED, she denies chest pain/tightness but she has chronic right shoulder pain after she fell and broke her right shoulder and right distal forearm/wrist and since then she has pain and had sling and swath and follows outpatient rehab. She follows Dr. Barraza wound clinic. History of recurrent cellulitis last time she was admitted for right leg cellulitis in February 2019. She was also found abnormal CT scan of right-sided groundglass changes with small bilateral effusion during that visit and follow Dr. Lieberman for suspected underlying autoimmune or vasculitis process. After that repeat CT scan after 3 months in May 2019 showed significant clearing but residual some chronic changes in the bases bilaterally. Patient chest x-ray and CTA chest and x-rays individually reviewed. This time also patient had chest CTA which reported no PE but chronic interstitial changes, honeycombing in the periphery, nonspecific pleural thickening and dependent atelectasis. No organized infiltrate. Chest x-ray also showed chronic surgical neck fracture of right humerus. Troponin was done of undetermined significance and is elevated. [facility] Medical History Cellulitis of right leg HLD (hyperlipidemia) HTN (hypertension) Home Medications atorvastatin 20 mg tablet 20 mg PO QHS 12/15/15 [History Last Taken 02/17/19] calcium carbonate 500 mg-vitamin D3 10 mcg (400 unit) chewable tablet 1 tab PO DAILY 12/15/15 [History Last Taken 02/16/19] cholecalciferol (vitamin D3) 25 mcg (1,000 unit) tablet 2,000 unit PO DAILY 12/15/15 [History Last Taken 02/16/19] multivitamin 1 ea PO DAILY 12/15/15 [History Last Taken 02/16/19] paroxetine HCl 20 mg tablet 20 mg PO DAILY 12/15/15 [History Last Taken 02/16/19] amlodipine 2.5 mg tablet 2.5 mg PO DAILY 02/17/19 [History Last Taken 02/17/19] aspirin 325 mg tablet 81 mg PO DAILY 02/17/19 [History Last Taken 02/17/19] epinephrine 0.3 mg/0.3 mL injection, auto-injector 0.3 mg IM Q10M PRN Anaphylaxis 05/09/21 [History Last Taken Unknown] ferrous sulfate 325 mg (65 mg iron) tablet (iron) 325 mg PO DAILY 05/09/21 [History Last Taken Unknown] fluticasone propionate 50 mcg/actuation nasal spray,suspension 2 spray intranasal DAILY 05/09/21 [History Last Taken Unknown] folic acid 1 mg tablet 2 mg PO DAILY 05/09/21 [History Last Taken Unknown] methotrexate 2.5 mg QWEEK 05/09/21 [History Last Taken Unknown] omeprazole 20 mg capsule,delayed release 20 mg PO DAILY 10/09/21 [History Last Taken Unknown] Allergy/AdvReac Type Severity Reaction Status Date / Time bee venom protein (honey bee) Allergy Anaphylaxis Verified 06/01/22 10:21 Penicillins AdvReac Hives Verified 06/01/22 10:21 Family History Father Heart disease Surgical History History of bilateral knee replacement History of hysterectomy History of hysterectomy Hx of appendectomy Social History household members: none Smoking Status: Former smoker Tobacco: How many years used: 20 how long ago did patient quit smokin, 1ppd second hand exposure: Yes ROS ROS Narrative Constitutional: Reports fatigue and weakness. High fever and chills. HEENT: Reports systems reviewed and no addt'l complaints, except as documented Respiratory/Chest: No history of coronary artery disease or other cardiac disease. Denies chest pain, shortness of breath at rest or with exertion Gastrointestinal: Denies coffee ground emesis, hematemesis or vomiting Genitourinary: Denies burning urination or new urinary tract symptoms Musculoskeletal: Chronic right shoulder fracture. Right upper extremity on sling and swath, right wrist splint Neurologic: Denies seizure-like activity skin: Dry ulcer over right foot. Erythematous rash over right lower extremity. Endocrinology: No diabetes mellitus. Reports systems reviewed and no addt'l complaints, except as documented Hematologic/Lymphatic: Reports systems reviewed and no addt'l complaints, except as documented Rest 14 ROS are negative except as mentioned in HPI Vital Signs Vital Signs Vital Signs: 06/01/22 10:21 06/01/22 10:40 06/01/22 10:40 Temperature 98 F Temperature Source Temporal Pulse Rate 88 80 Respiratory Rate 14 28 H Blood Pressure 168/63 H Blood Pressure Mean 98 Pulse Ox 94 95 96 Oxygen Delivery Method Room Air Room Air Room Air Oxygen Flow Rate (L/min) 06/01/22 10:57 06/01/22 10:57 06/01/22 11:06 Temperature 103.1 F H 103.1 F H Temperature Source Oral Oral Pulse Rate 82 Respiratory Rate 22 H Blood Pressure 156/50 H Blood Pressure Mean 85 Pulse Ox 93 87 Oxygen Delivery Method Room Air Room Air Oxygen Flow Rate (L/min) 06/01/22 11:07 06/01/22 12:11 06/01/22 12:11 Temperature 103.2 F H 103.2 F H Temperature Source Oral Oral Pulse Rate 80 Respiratory Rate 25 H Blood Pressure 157/54 H Blood Pressure Mean 88 Pulse Ox 95 97 Oxygen Delivery Method Nasal Cannula Nasal Cannula Oxygen Flow Rate (L/min) 2 2 06/01/22 13:00 06/01/22 13:04 Temperature 102.9 F H 102.9 F H Temperature Source Oral Oral Pulse Rate 86 86 Respiratory Rate 16 20 H Blood Pressure 147/89 H 147/89 H Blood Pressure Mean 108 108 Pulse Ox 96 96 Oxygen Delivery Method Nasal Cannula Nasal Cannula Oxygen Flow Rate (L/min) 2 2 Weight Weight: 190 lb Body Mass Index (BMI) 30.7 Physical Exam Narrative General: Alert, Oriented x3, Cooperative, loss of appetite. Fever HEENT: Atraumatic, PERRLA, EOMI, Normocephalic Oral: No Gingival or Mucosal Lesions/ Ulcerations Neck: Supple, No JVD, Negative Carotid Bruits Lungs: Air entry diminished in bilateral lung bases. No crepitation/rhonchi Cardiovascular: Regular rate, Regular Rhythm, Normal S1, Normal S2, No murmurs Abdomen: Bowel Sounds Present, Soft, Non Tender, Non-Distended : No renal angle tenderness. No suprapubic tenderness. Extremities: No edema, Capillary Refill Less than 3 Seconds Skin: Erythematous rash, blotching, tenderness and subcutaneous swelling of right lower extremity. Small dry ulcer, subcutaneous loss of fat over right second metatarsal head. Musculoskeletal: RUE on sling. Right wrist on splint. Tenderness over right shoulder with deformity. Neurological: Cranial nerves II-XII grossly intact, DTR 2+/4 and Symmetrical Psych/Mental Status: Flat affect. Results Lab / Micro Data Result Diagrams: 06/01/22 10:35 06/01/22 10:35 Labs: Laboratory Results - last 24 hr 06/01/22 10:35: WBC 14.0 H, RBC 3.99 L, Hgb 12.4, Hct 37.3, MCV 93.5, MCH 31.1, MCHC 33.2, RDW Std Deviation 49.6 H, RDW Coeff of Danny 14.7 H, Plt Count 177, MPV 10.8, Immature Gran % (Auto) 0.600, Neut % (Auto) 93.2 H, Lymph % (Auto) 3.0 L, [place] % (Auto) 3.1, Eos % (Auto) 0.0, Baso % (Auto) 0.1, Absolute Neuts (auto) 13.1 H, Absolute Lymphs (auto) 0.42 L, Nucleated RBC % 0, ESR 46 H 06/01/22 10:35: Sodium 131 L, Potassium 3.9, Chloride 97 L, Carbon Dioxide 26.0, Anion Gap 8, BUN 17, Creatinine 1.23 H, Estim Creat Clear Calc 33.58, Est GFR (MDRD) Af Amer 54 L, Est GFR (MDRD) Non-Af 44 L, BUN/Creatinine Ratio 13.8, Glucose 134 H, Calcium 9.4, Total Bilirubin 1.00, AST 36, ALT 25, Alkaline Phosphatase 85, C-React Prot Ext Range 84.80 H, Total Protein 8.2, Albumin 3.9, Globulin 4.3 H, Albumin/Globulin Ratio 0.9 06/01/22 10:35: Lactic Acid 1.8 06/01/22 10:35: Troponin I High Sens 150 H* 06/01/22 11:22: Urine Color Yellow, Urine Clarity Clear, Urine pH 6.5, Ur Specific [place] 1.010, Urine Protein 30 H, Urine Glucose (UA) Normal, Urine Ketones 5 H, Urine Occult Blood 50 H, Urine Nitrite Negative, Urine Bilirubin Negative, Urine Urobilinogen 1 H, Ur Leukocyte Esterase Negative, Urine RBC 0 SEEN, Urine WBC 0 SEEN, Ur Squamous Epith Cells 0 SEEN, Urine Bacteria 0 SEEN, Urine Mucus 0 SEEN Micro: Microbiology 06/01/22 11:00 Nasal Secretion SARS-CoV-2 Antigen (Rapid) - Final Radiology Impression Chest X-Ray 06/01/22 10:37 IMPRESSION: Chronic interstitial changes, no superimposed acute pulmonary process Likely chronic surgical neck fracture of the right humerus but there are no previous studies available for comparison Electronically Signed: Sixto Montoya MD at 11:26 EDT Reading Location ID and State: [facility] / [place] , Service support , Foot X-Ray 06/01/22 10:37 IMPRESSION: Polyarticular arthrosis with calcaneal spurs, no demonstrated fracture or suspicious osseous lesion Electronically Signed: Sixto Montoya MD at 11:25 EDT Reading Location ID and State: [facility] / [place] , Service support , Tibia/Fibula X-Ray 06/01/22 10:37 IMPRESSION: Osteopenia, no demonstrated fracture Electronically Signed: Sixto Montoya MD at 11:27 EDT , Chest CTA 06/01/22 11:33 IMPRESSION: No demonstrated PE, or thoracic aortic aneurysm or dissection Hyperexpanded lungs with chronic interstitial changes, honeycombing in the periphery, nonspecific pleural thickening and dependent atelectasis. No organized infiltrate. Prominent retrocardiac hiatal hernia with CT evidence of reflux esophagitis Electronically Signed: Sixto Montoya MD at 12:25 EDT , Assessment & Plan Assessment/Plan (1) Cellulitis of right leg: PLAN: Plan This 81-year-old female admitted with right lower extremity swelling, pain and fever consistent with RLE cellulitis 1. RLE cellulitis with chronic subcutaneous small, dry ulcer over right first MTP head with osteopenia: Patient is being admitted in PCU. Started on IV antibiotics cefazolin. Patient does not have history of diabetes mellitus. 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 Clinical Program Coordinator is consulted. RLE elevation, warm compression. Blood cultures x2 ordered. Patient is febrile 103.2 Fahrenheit, leukocytosis with left shift but not tachycardic or hypoxic. Lactic acid normal. Patient does not look toxic or clinical lab features suggestive of sepsis. Sepsis ruled out. 2. Elevated troponin, unclear significance: Patient does not have chest pain or shortness of breath. No history of previous angina, GA or coronary artery disease and she has been moving around or climbing stairs in home with no symptoms of exertional angina. Cycle troponin enzymes. 2D echo ordered. 3. Chronic right shoulder surgical neck fracture and distal radial metaphysis and ulnar styloid process fracture probably pathological due to osteopenia, possible osteoporosis: The patient had fall in first week of April. X-rays of April 21 reviewed individually. The fracture of surgical neck of right shoulder and distal radius metaphysis with posterior displacement and transverse fracture of distal ulna with mild displacement and ulnar styloid fracture. Diffusely osteopenic bones. Repeat x-rays orders to see follow-up. 4. Hypertension: Blood pressure was elevated but now normal. 5. Dyslipidemia: Continue statin. CK ordered. 6. Other comorbid include depression: Continue Paxil 7. DVT prophylaxis: Continue subcu Lovenox. Living will/advanced directive/end of life care: Patient does have living will or advanced directive. Her is POA of health. After discussion of benefits/risks procedures involved with full code, DNR CC arrest and DNR CC, the patient and her opted for DNRCC arrest with no intubation. Patient and her do not want artificial life support including intubation, tube feed, ventilator and/chest compression, central venous catheter, vasopressor and DC shock if needed Total time spent in [id number] encounter in discussion of advanced directive 16 minutes. Microbiology Past 72 Hours 06/01/22 11:00 Nasal Secretion SARS-CoV-2 Antigen (Rapid) - Final Laboratory Results 06/01/22 10:35: WBC 14.0 H, RBC 3.99 L, Hgb 12.4, Hct 37.3, MCV 93.5, MCH 31.1, MCHC 33.2, RDW Std Deviation 49.6 H, RDW Coeff of Danny 14.7 H, Plt Count 177, MPV 10.8, Immature Gran % (Auto) 0.600, Neut % (Auto) 93.2 H, Lymph % (Auto) 3.0 L, [place] % (Auto) 3.1, Eos % (Auto) 0.0, Baso % (Auto) 0.1, Absolute Neuts (auto) 13.1 H, Absolute Lymphs (auto) 0.42 L, Nucleated RBC % 0, ESR 46 H 06/01/22 10:35: Sodium 131 L, Potassium 3.9, Chloride 97 L, Carbon Dioxide 26.0, Anion Gap 8, BUN 17, Creatinine 1.23 H, Estim Creat Clear Calc 33.58, Est GFR (MDRD) Af Amer 54 L, Est GFR (MDRD) Non-Af 44 L, BUN/Creatinine Ratio 13.8, Glucose 134 H, Calcium 9.4, Total Bilirubin 1.00, AST 36, ALT 25, Alkaline Phosphatase 85, C-React Prot Ext Range 84.80 H, Total Protein 8.2, Albumin 3.9, Globulin 4.3 H, Albumin/Globulin Ratio 0.9 06/01/22 10:35: Lactic Acid 1.8 06/01/22 10:35: Troponin I High Sens 150 H* 06/01/22 11:22: Urine Color Yellow, Urine Clarity Clear, Urine pH 6.5, Ur Specific [place] 1.010, Urine Protein 30 H, Urine Glucose (UA) Normal, Urine Ketones 5 H, Urine Occult Blood 50 H, Urine Nitrite Negative, Urine Bilirubin Negative, Urine Urobilinogen 1 H, Ur Leukocyte Esterase Negative, Urine RBC 0 SEEN, Urine WBC 0 SEEN, Ur Squamous Epith Cells 0 SEEN, Urine Bacteria 0 SEEN, Urine Mucus 0 SEEN 06/01/22 13:20: Troponin I High Sens 230 H* 06/01/22 13:20: Phosphorus 2.8, Magnesium 1.5 L Clinical Impression(s) from Imaging Studies Chest X-Ray 06/01/22 10:37 IMPRESSION: Chronic interstitial changes, no superimposed acute pulmonary process Likely chronic surgical neck fracture of the right humerus but there are no previous studies available for comparison Foot X-Ray 06/01/22 10:37 IMPRESSION: Polyarticular arthrosis with calcaneal spurs, no demonstrated fracture or suspicious osseous lesion Tibia/Fibula X-Ray 06/01/22 10:37 IMPRESSION: Osteopenia, no demonstrated fracture Chest CTA 06/01/22 11:33 IMPRESSION: No demonstrated PE, or thoracic aortic aneurysm or dissection Hyperexpanded lungs with chronic interstitial changes, honeycombing in the periphery, nonspecific pleural thickening and dependent atelectasis. No organized infiltrate. Prominent retrocardiac hiatal hernia with CT evidence of reflux esophagitis Charges/Coding Visit Charges Inpatient E&M: 37072 Init Hosp L3 Procedures Hospitalists Procedures: 47648 Advncd Care Plan 30 Min
[2022-06-01 13:45] LABS: Magnesium 1.5 mg/dL (1.6-2.6); Phosphorus 2.8 mg/dL (2.5-4.9)
[2022-06-01 13:54] LABS: Troponin-I HS 230 pg/mL (3.0-54.0)
[2022-06-01] MEDS: Enoxaparin 40 MG/0.4 ML Syringe SC (15:16)
[2022-06-01] MEDS: KCL 20MEQ in 0.9% NS 20 MEQ/1,000 ML IV.SOLN. 75 MEQ IV (15:17)
--- NOTE | 2022-06-01 15:30 | RAD_ITS ---
STUDY: X-RAY - RIGHT WRIST REASON FOR EXAM: Female, 81 years old. pain and fracture TECHNIQUE: 3 view(s) of the wrist were obtained. COMPARISON: None. FINDINGS: There is demineralization of the radius and ulna. Healing impacted nondisplaced nonangulated transverse fracture the distal metaphysis of the radius and similar fracture of the distal shaft of the ulna with callus formation. Normal radiocarpal articulation. Normal distal radioulnar articulation. Normal carpal bones. Normal carpal articulations. Normal carpometacarpal articulation of the thumb. Normal second through fifth carpometacarpal articulations. Normal visualized metacarpal bones. The soft tissue structures are unremarkable. RAD/Wrist min 3 Views IMPRESSION: Healing fractures of the distal radius and ulna. Electronically Signed: Maximilian Washington MD at 15:48 EDT ,
--- NOTE | 2022-06-01 15:30 | RAD_ITS ---
STUDY: X-RAY - RIGHT SHOULDER REASON FOR EXAM: Female, 81 years old. pain, fracture, swelling TECHNIQUE: 2 view(s) of the shoulder. COMPARISON: 04/11/2022 FINDINGS: Normal glenohumeral articulation. There is degenerative arthrosis of the acromioclavicular joint without inferior osseous spur formation. Normal acromion. Diffuse osteopenia. Nondisplaced humeral neck fracture. The soft tissue structures are unremarkable. Normal visualized pulmonary apex. RAD/Shoulder min 2 Views IMPRESSION: Humeral neck fracture, unchanged by report since prior x-ray report (images not available). Electronically Signed: Johnathan Dodge MD ([place]) at 17:33 EDT ,
--- NOTE | 2022-06-01 15:30 | RAD_ITS ---
STUDY: X-RAY - RIGHT RADIUS AND ULNA REASON FOR EXAM: Female, 81 years old. pain and fracture, limited range of motion TECHNIQUE: 2 view(s) of the forearm. COMPARISON: Report 04/12/2022 FINDINGS: Mild soft tissue swelling of the forearm. Partially healed distal radial and ulnar fractures without significant displacement. Mild angulation of the radial fracture. No additional fractures seen. RAD/Forearm 2 Views IMPRESSION: Partially healed distal radial and ulnar fractures. Electronically Signed: Johnathan Dodge MD ([place]) at 17:49 EDT ,
[2022-06-01 16:07] LABS: CPK Total, Creatine Kinase 657 U/L (26-192)
[2022-06-01 16:37] LABS: M R Staph aureus DNA By PCR Negative (Negative); Probe Check PASS; Staph aureus DNA By PCR POSITIVE (Negative)
[2022-06-01 16:40] LABS: M R Staph aureus DNA By PCR Negative (Negative); Probe Check PASS; Specimen Processing Control PASS
[2022-06-01] MEDS: Na Biphos/Potassium Phosphate PACKET 1 PACKET PO ×2 (16:43→21:42)
[2022-06-01] MEDS: Acetaminophen 325 MG Tablet 650 MG PO (17:02)
--- NOTE | 2022-06-01 17:11 | CASEMGMT ---
Social Work As per admitting family assessment worker, pt has LW/healthcare POA but is not able to bring in the documents. She states Maximilian and [employer]vin are her POAs. TONYA Smith
[2022-06-01 17:24] LABS: Troponin-I HS 191 pg/mL (3.0-54.0)
--- NOTE | 2022-06-01 17:39 | CON.PCM_ITS ---
Assessment & Plan Assessment/Plan (1) Cellulitis of right leg: (2) 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 exposed: (3) Other hereditary and idiopathic neuropathies: (4) Venous insufficiency (chronic) (peripheral): PLAN: Plan Evaluation performed. Reviewed diagnostic data. WBC elevated, patient's temp 100.4F. Reviewed right foot xrays and tib/fib xrays - no gas or clear evidence of osteomyelitis. MRI right foot was ordered for further evaluation. The ulceration right sub 1st met head was debrided using a 15 blade in excisional fashion down to subcutaneous tissue. No anesthesia was needed due to patient's peripheral neuropathy. Hemostasis was achieved with gauze and pre ssure. Painted site with betadine soln and applied gauze, kerlix and brianne dressing. The area debrided measured 0.5cm x 0.5cm and 0.2cm in depth. A culture was obtained of right foot ulcer and sent to microbiology. Patient is on Cefazolin. No weightbearing right foot. Keep right foot elevated. Podiatry will continue to follow. Thank you for consultation. HPI Consult Data Date of Consult: 06/01/22 HPI Narrative Reason for Consultation: Right foot wound and infection HPI Narrative: LANE CHERRY, is a 81 F who presents with hx of neuropathy for right foot/leg cellulitis. She has a wound on the bottom of the right foot (sub 1st met head). She relates she does follow with [facility], relates normally goes every month to trim callus but she has not been able to make it to last visit so callus built up more. She relates redness in leg started this . There is well. She has elevated WBC. Temp is 100.4 F. She is resting in bed eating dinner. She has been started on IV antibiotics. Hospitalist service consulted me. [facility] Medical History Cellulitis of right leg HLD (hyperlipidemia) HTN (hypertension) Home Medications atorvastatin 20 mg tablet 20 mg PO QHS 12/15/15 [History Last Taken 02/17/19] calcium carbonate 500 mg-vitamin D3 10 mcg (400 unit) chewable tablet 1 tab PO DAILY 12/15/15 [History Last Taken 02/16/19] cholecalciferol (vitamin D3) 25 mcg (1,000 unit) tablet 2,000 unit PO DAILY 12/15/15 [History Last Taken 02/16/19] multivitamin 1 ea PO DAILY 12/15/15 [History Last Taken 02/16/19] paroxetine HCl 20 mg tablet 20 mg PO DAILY 12/15/15 [History Last Taken 02/16/19] amlodipine 2.5 mg tablet 2.5 mg PO DAILY 02/17/19 [History Last Taken 02/17/19] aspirin 325 mg tablet 81 mg PO DAILY 02/17/19 [History Last Taken 02/17/19] epinephrine 0.3 mg/0.3 mL injection, auto-injector 0.3 mg IM Q10M PRN Anaphylaxis 05/09/21 [History Last Taken Unknown] ferrous sulfate 325 mg (65 mg iron) tablet (iron) 325 mg PO DAILY 05/09/21 [History Last Taken Unknown] fluticasone propionate 50 mcg/actuation nasal spray,suspension 2 spray intranasal DAILY 05/09/21 [History Last Taken Unknown] folic acid 1 mg tablet 2 mg PO DAILY 05/09/21 [History Last Taken Unknown] methotrexate 2.5 mg QWEEK 05/09/21 [History Last Taken Unknown] omeprazole 20 mg capsule,delayed release 20 mg PO DAILY 10/09/21 [History Last Taken Unknown] Allergy/AdvReac Type Severity Reaction Status Date / Time bee venom protein (honey bee) Allergy Anaphylaxis Verified 06/01/22 10:21 Penicillins AdvReac Hives Verified 06/01/22 10:21 Family History Father Heart disease Surgical History History of bilateral knee replacement History of hysterectomy History of hysterectomy Hx of appendectomy Social History household members: none Smoking Status: Former smoker Tobacco: How many years used: 20 how long ago did patient quit smokin, 1ppd second hand exposure: Yes Physical Exam Const alert, oriented x3 and no apparent distress Extremity Extremity Narrative: Right foot with ulceration sub 1st metatarsal head with significant nonviable tissue and callus formation, there was some purulence to the site - this was debrided down to healthy viable granular base and margins - down to subcutaneous tissue - there is surrounding cellulitis extending to the dorsal foot and to the leg, there is edema to the foot, ankle and leg c/w infection, there is no fluctuance, no crepitus, no maloder, no blistering, CFT < 2 seconds to all toes with intact pedal pulses. There is diffuse peripheral neuropathy to the foot. There is no m/s POP or pain on ROM to the foot or ankle, right. Lab / Micro Data Result Diagrams: 06/01/22 10:35 06/01/22 10:35 Labs: Laboratory Results - last 24 hr 06/01/22 10:35: WBC 14.0 H, RBC 3.99 L, Hgb 12.4, Hct 37.3, MCV 93.5, MCH 31.1, MCHC 33.2, RDW Std Deviation 49.6 H, RDW Coeff of Danny 14.7 H, Plt Count 177, MPV 10.8, Immature Gran % (Auto) 0.600, Neut % (Auto) 93.2 H, Lymph % (Auto) 3.0 L, Stone % (Auto) 3.1, Eos % (Auto) 0.0, Baso % (Auto) 0.1, Absolute Neuts (auto) 13.1 H, Absolute Lymphs (auto) 0.42 L, Nucleated RBC % 0, ESR 46 H 06/01/22 10:35: Sodium 131 L, Potassium 3.9, Chloride 97 L, Carbon Dioxide 26.0, Anion Gap 8, BUN 17, Creatinine 1.23 H, Estim Creat Clear Calc 33.58, Est GFR (MDRD) Af Amer 54 L, Est GFR (MDRD) Non-Af 44 L, BUN/Creatinine Ratio 13.8, Glucose 134 H, Calcium 9.4, Total Bilirubin 1.00, AST 36, ALT 25, Alkaline Phosphatase 85, C-React Prot Ext Range 84.80 H, Total Protein 8.2, Albumin 3.9, Globulin 4.3 H, Albumin/Globulin Ratio 0.9 06/01/22 10:35: Lactic Acid 1.8 06/01/22 10:35: Troponin I High Sens 150 H* 06/01/22 11:22: Urine Color Yellow, Urine Clarity Clear, Urine pH 6.5, Ur Specific [place] 1.010, Urine Protein 30 H, Urine Glucose (UA) Normal, Urine Ketones 5 H, Urine Occult Blood 50 H, Urine Nitrite Negative, Urine Bilirubin Negative, Urine Urobilinogen 1 H, Ur Leukocyte Esterase Negative, Urine RBC 0 SEEN, Urine WBC 0 SEEN, Ur Squamous Epith Cells 0 SEEN, Urine Bacteria 0 SEEN, Urine Mucus 0 SEEN 06/01/22 13:02: Total Creatine Kinase 657 H 06/01/22 13:20: Troponin I High Sens 230 H* 06/01/22 13:20: Phosphorus 2.8, Magnesium 1.5 L 06/01/22 15:20: MRSA (PCR) Negative 06/01/22 15:20: S.aureus Protein A PCR POSITIVE H, MRSA (PCR) Negative 06/01/22 16:38: Troponin I High Sens 191 H* Micro: Microbiology 06/01/22 11:00 Nasal Secretion SARS-CoV-2 Antigen (Rapid) - Final Radiology Impression Chest X-Ray 06/01/22 10:37 IMPRESSION: Chronic interstitial changes, no superimposed acute pulmonary process Likely chronic surgical neck fracture of the right humerus but there are no previous studies available for comparison Electronically Signed: Sixto Montoya MD at 11:26 EDT Reading Location ID and State: [facility] / [place] , Service support , Foot X-Ray 06/01/22 10:37 IMPRESSION: Polyarticular arthrosis with calcaneal spurs, no demonstrated fracture or suspicious osseous lesion Electronically Signed: Sixto Montoya MD at 11:25 EDT , Tibia/Fibula X-Ray 06/01/22 10:37 IMPRESSION: Osteopenia, no demonstrated fracture Electronically Signed: Sixto Montoya MD at 11:27 EDT , Chest CTA 06/01/22 11:33 IMPRESSION: No demonstrated PE, or thoracic aortic aneurysm or dissection Hyperexpanded lungs with chronic interstitial changes, honeycombing in the periphery, nonspecific pleural thickening and dependent atelectasis. No organized infiltrate. Prominent retrocardiac hiatal hernia with CT evidence of reflux esophagitis Electronically Signed: Sixto Montoya MD at 12:25 EDT , Shoulder X-Ray 06/01/22 15:30 IMPRESSION: Humeral neck fracture, unchanged by report since prior x-ray report (images not available). Electronically Signed: Johnathan Dodge MD ([place]) at 17:33 EDT , Wrist X-Ray 06/01/22 15:30 IMPRESSION: Healing fractures of the distal radius and ulna. Electronically Signed: Maximilian Washington MD at 15:48 EDT ,
[2022-06-01 19:26] LABS: M R Staph aureus DNA By PCR Negative (Negative); Probe Check PASS; Specimen Processing Control PASS; Staph aureus DNA By PCR NEGATIVE (Negative)
[2022-06-01] MEDS: Senna/Docusate Sodium 1 Tablet 2 TABLET PO (21:41)
[2022-06-01] MEDS: Atorvastatin Calcium 20 MG Tablet PO (21:42)
[2022-06-01] MEDS: oxyCODONE 5 MG Tablet PO (21:44)
[2022-06-01] MEDS: Cefazolin 1 GM/50 ML BAG IV (21:47)
[2022-06-02] VITALS (15 sets, daily range): BP systolic 116–145; BP diastolic 51–82; PULSE 66–96; RESP 16–22; TEMP 37.1–39.5; O2SAT 92–100
[2022-06-02] MEDS: Acetaminophen 325 MG Tablet 650 MG PO ×3 (03:01→18:38)
[2022-06-02] MEDS: Cefazolin 1 GM/50 ML BAG IV (06:15)
[2022-06-02] MEDS: Na Biphos/Potassium Phosphate PACKET 1 PACKET PO ×3 (06:16→22:09)
[2022-06-02 06:42] LABS: Absolute Neutrophil Count 10.5 X10^3/uL (2.0-7.7); Basophil# 0.01 X10^3/uL; Basophil% 0.1 % (0-1); Hematocrit 30.3 % (37-47); Hemoglobin 10.2 g/dL (12.0-15.0); Lymphocyte % 5.2 % (19-41); Mean Corp Hgb Conc 33.7 g/dL (32-36); Mean Corpuscular Hgb 31.5 pg (27.0-32.0); Mean Corpuscular Volume 93.5 fL (81-99); Mean Platelet Vol. 11.2 fl (6.2-12.0); Monocyte% 2.6 % (0-10); NRBC Flagged by Analyzer 0 % (0-5); Neutrophil # 10.46 X10^3/uL (2.7-7.7); Neutrophil % 91.6 % (47-70); POSITIVE DIFFERENTIAL YES; POSITIVE MORPHOLOGY YES; Platelet Count 150 K/mm3 (150-450); RBC Distribution Width CV 15.1 % (11.6-14.6); RBC Distribution Width SD 51.6 fl (35.1-43.9); Red Blood Count 3.24 M/mm3 (4.2-5.4); White Blood Count 11.4 K/mm3 (4.4-11.0)
[2022-06-02 06:44] LABS: Differential Indicated SCAN CRITERIA MET
[2022-06-02 07:07] LABS: Anion Gap 10 (5-15); BUN 16 mg/dL (7-18); BUN/Creat Ratio 14.5 RATIO (10-20); Calcium,Total 8.2 mg/dL (8.5-10.1); Chloride 100 mmol/L (98-107); EST Glomerular Filtration Rate 51 mL/min (>60); Est Glom Filt Rate - Afr Amer 61 mL/min (>60); Estimated Creatinine Clearance 37.55 ml/min; Glucose 113 mg/dL (74-106); Potassium 3.4 mmol/L (3.5-5.1); Sodium Level 132 mmol/L (136-145); Thyroid Stim Hormone (TSH) 0.62 uIU/mL (0.358-3.74)
[2022-06-02 07:22] LABS: Differential Comment SCANNED
--- NOTE | 2022-06-02 07:54 | PN_ITS ---
Subjective Subjective Patient was seen this morning for follow up right foot ulcer, with cellulitis extending to leg. She had overnight fever of 103F. WBC is improved. She is resting in bed. Objective Data Objective Data Vital Signs: Vital Signs Temp Pulse Resp BP Pulse Ox O2 Del Method O2 Flow Rate 101 F H 83 22 H 128/57 H 94 Room Air 2 06/02/22 04:11 06/02/22 07:45 06/02/22 07:45 06/02/22 04:11 06/02/22 07:45 06/02/22 04:11 06/01/22 22:00 FiO2 21 06/02/22 07:45 Oxygen Flow Rate (L/min) 2 Oxygen Delivery Method Room Air Weight: 90.2 kg Body Mass Index (BMI) 31.1 Intake & Output: Intake and Output for Last 24 Hours 05/31/22 06/01/22 06/02/22 23:59 23:59 23:59 Intake Total 2564 / 2564 1027.5 / 1027.5 Balance 2564 / 2564 1027.5 / 1027.5 Lab / Micro Data Result Diagrams: 06/02/22 05:18 06/02/22 05:18 Labs: Laboratory Results - last 24 hr 06/01/22 10:35: WBC 14.0 H, RBC 3.99 L, Hgb 12.4, Hct 37.3, MCV 93.5, MCH 31.1, MCHC 33.2, RDW Std Deviation 49.6 H, RDW Coeff of Danny 14.7 H, Plt Count 177, MPV 10.8, Immature Gran % (Auto) 0.600, Neut % (Auto) 93.2 H, Lymph % (Auto) 3.0 L, Bledso[place] % (Auto) 3.1, Eos % (Auto) 0.0, Baso % (Auto) 0.1, Absolute Neuts (auto) 13.1 H, Absolute Lymphs (auto) 0.42 L, Nucleated RBC % 0, ESR 46 H 06/01/22 10:35: Sodium 131 L, Potassium 3.9, Chloride 97 L, Carbon Dioxide 26.0, Anion Gap 8, BUN 17, Creatinine 1.23 H, Estim Creat Clear Calc 33.58, Est GFR (MDRD) Af Amer 54 L, Est GFR (MDRD) Non-Af 44 L, BUN/Creatinine Ratio 13.8, Glucose 134 H, Calcium 9.4, Total Bilirubin 1.00, AST 36, ALT 25, Alkaline Phosphatase 85, C-React Prot Ext Range 84.80 H, Total Protein 8.2, Albumin 3.9, Globulin 4.3 H, Albumin/Globulin Ratio 0.9 06/01/22 10:35: Lactic Acid 1.8 06/01/22 10:35: Troponin I High Sens 150 H* 06/01/22 11:22: Urine Color Yellow, Urine Clarity Clear, Urine pH 6.5, Ur Specific [place] 1.010, Urine Protein 30 H, Urine Glucose (UA) Normal, Urine Ketones 5 H, Urine Occult Blood 50 H, Urine Nitrite Negative, Urine Bilirubin Negative, Urine Urobilinogen 1 H, Ur Leukocyte Esterase Negative, Urine RBC 0 SEEN, Urine WBC 0 SEEN, Ur Squamous Epith Cells 0 SEEN, Urine Bacteria 0 SEEN, Urine Mucus 0 SEEN 06/01/22 13:02: Total Creatine Kinase 657 H 06/01/22 13:20: Troponin I High Sens 230 H* 06/01/22 13:20: Phosphorus 2.8, Magnesium 1.5 L 06/01/22 15:20: MRSA (PCR) Negative 06/01/22 15:20: S.aureus Protein A PCR POSITIVE H, MRSA (PCR) Negative 06/01/22 16:38: Troponin I High Sens 191 H* 06/01/22 17:40: S.aureus Protein A PCR NEGATIVE, MRSA (PCR) Negative 06/02/22 05:18: WBC 11.4 H, RBC 3.24 L, Hgb 10.2 L, Hct 30.3 L, MCV 93.5, MCH 31.5, MCHC 33.7, RDW Std Deviation 51.6 H, RDW Coeff of Danny 15.1 H, Plt Count 150, MPV 11.2, Immature Gran % (Auto) 0.500, Neut % (Auto) 91.6 H, Lymph % (Auto) 5.2 L, Bledsoe % (Auto) 2.6, Eos % (Auto) 0.0, Baso % (Auto) 0.1, Absolute Neuts (auto) 10.5 H, Absolute Lymphs (auto) 0.60 L, Nucleated RBC % 0, Differential Comment SCANNED 06/02/22 05:18: Sodium 132 L, Potassium 3.4 L, Chloride 100, Carbon Dioxide 22.0, Anion Gap 10, BUN 16, Creatinine 1.10 H, Estim Creat Clear Calc 37.55, Est GFR (MDRD) Af Amer 61, Est GFR (MDRD) Non-Af 51 L, BUN/Creatinine Ratio 14.5, Glucose 113 H, Calcium 8.2 L, TSH 0.62 Micro: Microbiology 06/01/22 11:00 Nasal Secretion SARS-CoV-2 Antigen (Rapid) - Final Radiography Diagnostic Testing: Radiology Impression Chest X-Ray 06/01/22 10:37 IMPRESSION: Chronic interstitial changes, no superimposed acute pulmonary process Likely chronic surgical neck fracture of the right humerus but there are no previous studies available for comparison Electronically Signed: Sixto Montoya MD at 11:26 EDT Reading Location ID and State: [facility] / [place] , Service support , Foot X-Ray 06/01/22 10:37 IMPRESSION: Polyarticular arthrosis with calcaneal spurs, no demonstrated fracture or suspicious osseous lesion Electronically Signed: Sixto Montoya MD at 11:25 EDT Reading Location ID and State: [facility] / [place] , Service support , Tibia/Fibula X-Ray 06/01/22 10:37 IMPRESSION: Osteopenia, no demonstrated fracture Electronically Signed: Sixto Montoya MD at 11:27 EDT , Chest CTA 06/01/22 11:33 IMPRESSION: No demonstrated PE, or thoracic aortic aneurysm or dissection Hyperexpanded lungs with chronic interstitial changes, honeycombing in the periphery, nonspecific pleural thickening and dependent atelectasis. No organized infiltrate. Prominent retrocardiac hiatal hernia with CT evidence of reflux esophagitis Electronically Signed: Sixto Montoya MD at 12:25 EDT , Forearm X-Ray 06/01/22 15:30 IMPRESSION: Partially healed distal radial and ulnar fractures. Electronically Signed: Johnathan Dodge MD ([place]) at 17:49 EDT , Shoulder X-Ray 06/01/22 15:30 IMPRESSION: Humeral neck fracture, unchanged by report since prior x-ray report (images not available). Electronically Signed: Johnathan Dodge MD ([place]) at 17:33 EDT , Wrist X-Ray 06/01/22 15:30 IMPRESSION: Healing fractures of the distal radius and ulna. Electronically Signed: Maximilian Washington MD at 15:48 EDT , Physical Exam Const alert, oriented x3 and no apparent distress Extremity Extremity Narrative: Right foot with ulceration sub 1st metatarsal head s/p debridement with healthy and viable tissue - granular base and margins - down to subcutaneous tissue - there is cellulitis from forefoot extending to the dorsal foot and to the leg up to the knee, there is edema to the foot, ankle and leg with increased temperature c/w infection, there is no fluctuance, no crepitus, no maloder, no blistering, no visible abscess, CFT < 2 seconds to all toes with intact pedal pulses. There is diffuse peripheral neuropathy to the foot. There is no m/s POP or pain on ROM to the foot or ankle, right. There is a callus sub 1st met head left foot with no open lesion. Assessment & Plan Assessment/Plan (1) Cellulitis of right leg: (2) 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 exposed: (3) Other hereditary and idiopathic neuropathies: (4) Venous insufficiency (chronic) (peripheral): PLAN: Plan Re-evaluation performed. Reviewed diagnostic data. WBC elevated but improved (11.4) this morning, patient's temp was 103F overnight. Reviewed right foot xrays and tib/fib xrays - no gas or clear evidence of osteomyelitis. MRI right foot was ordered for further evaluation - which is pending at this time. The ulceration right foot has been debrided. It does appear the cellulitis to right foot is slightly improved this morning. A culture was obtained of right foot ulcer and sent to microbiology - MRSA negative on PCR - otherwise results pending. Patient is on IV antibiotic Cefazolin. No weightbearing right foot. Keep right foot elevated. Podiatry will continue to follow.
[2022-06-02 08:25] LABS: Magnesium 1.9 mg/dL (1.6-2.6); Phosphorus 2.7 mg/dL (2.5-4.9); Troponin-I HS 338 pg/mL (3.0-54.0)
[2022-06-02] MEDS: Cholecalciferol (VIT D3) 25 MCG TABLET (1,000 UNITS) 50 MCG PO (08:55)
[2022-06-02] MEDS: Senna/Docusate Sodium 1 Tablet 2 TABLET PO (08:55)
[2022-06-02] MEDS: Enoxaparin 40 MG/0.4 ML Syringe SC (08:55)
[2022-06-02] MEDS: amLODIPine 2.5 MG Tablet PO (08:55)
[2022-06-02] MEDS: Calcium Carb/Vitamin D 1 TABLET Tablet PO (08:55)
[2022-06-02] MEDS: Folic Acid 1 MG Tablet 2 MG PO (08:56)
[2022-06-02] MEDS: Ferrous Sulfate 325 MG Tablet PO (08:56)
[2022-06-02] MEDS: Multivitamins,Therapeutic Tablet 1 TABLET PO (08:56)
[2022-06-02] MEDS: Paroxetine 20 MG Tablet PO (08:56)
[2022-06-02] MEDS: Aspirin 81 MG TAB.CHEW PO (08:57)
[2022-06-02] MEDS: Pantoprazole Sodium 40 MG Tablet PO (08:57)
--- NOTE | 2022-06-02 11:00 | MRI_ITS ---
STUDY: MRI RIGHT MIDFOOT REASON FOR EXAM: Female, 81 years old. osteomyelitis right 1st toe/metatarsal,right sub mt head TECHNIQUE: Standardized fat and water weighted pulse sequences were obtained in all 3 orthogonal planes. COMPARISON: None. 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 There is moderate joint space narrowing at this site with moderate osteophytic spurring of the first metatarsal head. The first proximal and distal phalanges are intact without evidence of marrow edema, periosteal reaction, or cortical disruption. There is a moderate soft tissue edema seen extending from the first MTP joint into the first proximal phalanx. This is most consistent with cellulitis. The remainder of the metatarsals and phalanges appear intact without evidence of osteomyelitis. There is dorsiflexion of the first and fifth MTP joints. There is mild osteoarthritis throughout the tarsal bones. MRI/Lower Ext/No Jt/w/o IMPRESSION: No evidence of osteomyelitis first metatarsal nor of the first proximal and distal phalanges. Moderate osteoarthritis first MTP joint with small joint effusion. Cellulitis extending from the first metatarsophalangeal joint into the great toe. Dorsiflexion of the first through fifth MCP joints. Electronically Signed: Servando Ross MD, JERRICA at 12:24 EDT ,
--- NOTE | 2022-06-02 11:53 | PN.HOSP_ITS ---
Subjective Subjective Seen and examined. Patient had fever T-max 103.1 Fahrenheit at 3 AM today. IV cefazolin dose increased to 2 g IV every 8 hourly. Objective Data Objective Data Vital Signs: Vital Signs Temp Pulse Resp BP Pulse Ox O2 Del Method O2 Flow Rate 99 F 73 20 H 119/51 L 100 Room Air 2 06/02/22 11:00 06/02/22 11:00 06/02/22 11:00 06/02/22 11:00 06/02/22 11:00 06/02/22 11:00 06/01/22 22:00 FiO2 21 06/02/22 07:45 Oxygen Flow Rate (L/min) 2 Oxygen Delivery Method Room Air Weight: 198 lb 13.711 oz Body Mass Index (BMI) 31.1 Intake & Output: Intake and Output for Last 24 Hours 05/31/22 06/01/22 06/02/22 23:59 23:59 23:59 Intake Total 2564 / 2564 1027.5 / 1027.5 Balance 2564 / 2564 1027.5 / 1027.5 Lab / Micro Data Result Diagrams: 06/02/22 05:18 06/02/22 05:18 Labs: Laboratory Results - last 24 hr 06/01/22 13:02: Total Creatine Kinase 657 H 06/01/22 13:20: Troponin I High Sens 230 H* 06/01/22 13:20: Phosphorus 2.8, Magnesium 1.5 L 06/01/22 15:20: MRSA (PCR) Negative 06/01/22 15:20: S.aureus Protein A PCR POSITIVE H, MRSA (PCR) Negative 06/01/22 16:38: Troponin I High Sens 191 H* 06/01/22 17:40: S.aureus Protein A PCR NEGATIVE, MRSA (PCR) Negative 06/02/22 05:18: WBC 11.4 H, RBC 3.24 L, Hgb 10.2 L, Hct 30.3 L, MCV 93.5, MCH 31.5, MCHC 33.7, RDW Std Deviation 51.6 H, RDW Coeff of Danny 15.1 H, Plt Count 150, MPV 11.2, Immature Gran % (Auto) 0.500, Neut % (Auto) 91.6 H, Lymph % (Auto) 5.2 L, [place] % (Auto) 2.6, Eos % (Auto) 0.0, Baso % (Auto) 0.1, Absolute Neuts (auto) 10.5 H, Absolute Lymphs (auto) 0.60 L, Nucleated RBC % 0, Differential Comment SCANNED 06/02/22 05:18: Sodium 132 L, Potassium 3.4 L, Chloride 100, Carbon Dioxide 22.0, Anion Gap 10, BUN 16, Creatinine 1.10 H, Estim Creat Clear Calc 37.55, Est GFR (MDRD) Af Amer 61, Est GFR (MDRD) Non-Af 51 L, BUN/Creatinine Ratio 14.5, Glucose 113 H, Calcium 8.2 L, TSH 0.62 06/02/22 05:18: Phosphorus 2.7, Magnesium 1.9, Troponin I High Sens 338 H* 06/02/22 05:18: Phosphorus Cancelled Micro: Microbiology 06/01/22 11:00 Nasal Secretion SARS-CoV-2 Antigen (Rapid) - Final Radiography Diagnostic Testing: Radiology Impression Chest CTA 06/01/22 11:33 IMPRESSION: No demonstrated PE, or thoracic aortic aneurysm or dissection Hyperexpanded lungs with chronic interstitial changes, honeycombing in the periphery, nonspecific pleural thickening and dependent atelectasis. No organized infiltrate. Prominent retrocardiac hiatal hernia with CT evidence of reflux esophagitis Electronically Signed: Sixto Montoya MD at 12:25 EDT Reading Location ID and State: [facility] / [place] , Service support , Forearm X-Ray 06/01/22 15:30 IMPRESSION: Partially healed distal radial and ulnar fractures. Electronically Signed: Johnathan Dodge MD (Brooks) at 17:49 EDT , Shoulder X-Ray 06/01/22 15:30 IMPRESSION: Humeral neck fracture, unchanged by report since prior x-ray report (images not available). Electronically Signed: Johnathan Dodge MD (Brooks) at 17:33 EDT , Wrist X-Ray 06/01/22 15:30 IMPRESSION: Healing fractures of the distal radius and ulna. Electronically Signed: Maximilian Washington MD at 15:48 EDT , Physical Exam Narrative General: Alert, Oriented x3, Cooperative HEENT: Atraumatic, PERRLA, EOMI, Normocephalic Oral: Oral mucosa moist. No Gingival or Mucosal Lesions/ Ulcerations Neck: Supple, No JVD, Negative Carotid Bruits Lungs: Air entry diminished in bilateral lung bases. No crepitation/rhonchi Cardiovascular: Regular rate, Regular Rhythm, Normal S1, Normal S2, No murmurs Abdomen: Bowel Sounds Present, Soft, Non Tender, Non-Distended : No renal angle tenderness. No suprapubic tenderness. Extremities: No edema, Capillary Refill Less than 3 Seconds Skin: Erythematous rash, tenderness and subcutaneous swelling of right lower extremity. Small dry ulcer, subcutaneous loss of fat over right second metatarsal head status post bedside debridement. Jori wrap bandage on. Musculoskeletal: RUE on sling. Right wrist on splint. Mild tenderness over right shoulder with deformity. Neurological: Cranial nerves II-XII grossly intact, DTR 2+/4 and Symmetrical Psych/Mental Status: Flat affect. Assessment & Plan Assessment/Plan (1) Cellulitis of right leg: PLAN: Plan This 81-year-old female admitted with right lower extremity swelling, pain and fever consistent with RLE cellulitis 1. RLE cellulitis with chronic subcutaneous small, dry ulcer over right first MTP head with osteopenia: Patient is being admitted in PCU. Started on IV antibiotics cefazolin. Patient does not have history of diabetes mellitus. 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 Senior Clinical Project Manager is consulted. RLE elevation, warm compression. Patient is febrile 103.2 Fahrenheit, leukocytosis with left shift but not tachycardic or hypoxic. Lactic acid normal. Patient does not look toxic or clinical lab features suggestive of sepsis. Sepsis ruled out. 8/28: Patient is still febrile in the morning. IV cefazolin increased 2 g IV every 8 hourly. MRSA nasal screen negative. Patient had bedside debridement of dry ulcer of right first MTP head and culture was sent. Discussed with the engineering technologist. Leukocytosis improving. MRI is ordered by engineering technologist. Blood cultures x2 are pending. Mild hypokalemia Phosphorus 2.7 on low normal. On Neutra-Phos. Hypomagnesemia corrected. 2. Elevated troponin, unclear significance: Patient does not have chest pain or shortness of breath. No history of previous angina, [place] or coronary artery disease and she has been moving around or climbing stairs in home with no symptoms of exertional angina. Cycle troponin enzymes. 06/02: Patient serial troponin was 150, 230, 191 and then today 338. It does not seem patient having ACS as she does not have chest pain shortness of breath or any features but may be demand ischemia from cellulitis/infection. 2D echo is ordered. And discussed with commercial roofing estimator Dr. Bonds and he has similar impression. 3. Chronic right shoulder surgical neck fracture and distal radial metaphysis and ulnar styloid process fracture probably pathological due to osteopenia, possible osteoporosis: The patient had fall in first week of April. X-rays of April 21 reviewed individually. The fracture of surgical neck of right shoulder and distal radius metaphysis with posterior displacement and transverse fracture of distal ulna with mild displacement and ulnar styloid fracture. Diffusely osteopenic bones. Repeat x-rays orders to see follow-up. 06/02: X-rays of right shoulder, forearm and wrist reviewed. Humerus surgical neck fracture unchanged from prior x-ray but distal radial ulnar fracture is healing. Communicated to the patient 4. Hypertension: Blood pressure was elevated but now normal. 5. Dyslipidemia: Continue statin. CK is high 657 but does not meet rhabdomyolysis. Continue IV fluid. Hold statin. Troponin may be elevated because of increased CK 6. Other comorbid include depression: Continue Paxil 7. DVT prophylaxis: Continue subcu Lovenox. Living will/advanced directive/end of life care: Patient does have living will or advanced directive. Her is POA of [facility]. After discussion of benefits/risks procedures involved with full code, DNR CC arrest and DNR CC, the patient and her opted for DNRCC arrest with no intubation. Patient and her do not want artificial life support including intubation, tube feed, ventilator and/chest compression, central venous catheter, vasopressor and DC shock if needed Total time spent in [id number] encounter in discussion of advanced directive 16 minutes. Microbiology Past 72 Hours 06/01/22 11:00 Nasal Secretion SARS-CoV-2 Antigen (Rapid) - Final Laboratory Results 06/01/22 13:02: Total Creatine Kinase 657 H 06/01/22 13:20: Troponin I High Sens 230 H* 06/01/22 13:20: Phosphorus 2.8, Magnesium 1.5 L 06/01/22 15:20: MRSA (PCR) Negative 06/01/22 15:20: S.aureus Protein A PCR POSITIVE H, MRSA (PCR) Negative 06/01/22 16:38: Troponin I High Sens 191 H* 06/01/22 17:40: S.aureus Protein A PCR NEGATIVE, MRSA (PCR) Negative 06/02/22 05:18: WBC 11.4 H, RBC 3.24 L, Hgb 10.2 L, Hct 30.3 L, MCV 93.5, MCH 31.5, MCHC 33.7, RDW Std Deviation 51.6 H, RDW Coeff of Danny 15.1 H, Plt Count 150, MPV 11.2, Immature Gran % (Auto) 0.500, Neut % (Auto) 91.6 H, Lymph % (Auto) 5.2 L, [place] % (Auto) 2.6, Eos % (Auto) 0.0, Baso % (Auto) 0.1, Absolute Neuts (auto) 10.5 H, Absolute Lymphs (auto) 0.60 L, Nucleated RBC % 0, Differential Comment SCANNED 06/02/22 05:18: Sodium 132 L, Potassium 3.4 L, Chloride 100, Carbon Dioxide 22.0, Anion Gap 10, BUN 16, Creatinine 1.10 H, Estim Creat Clear Calc 37.55, Est GFR (MDRD) Af Amer 61, Est GFR (MDRD) Non-Af 51 L, BUN/Creatinine Ratio 14.5, Glucose 113 H, Calcium 8.2 L, TSH 0.62 06/02/22 05:18: Phosphorus 2.7, Magnesium 1.9, Troponin I High Sens 338 H* 06/02/22 05:18: Phosphorus Cancelled Clinical Impression(s) from Imaging Studies Chest X-Ray 06/01/22 10:37 IMPRESSION: Chronic interstitial changes, no superimposed acute pulmonary process Likely chronic surgical neck fracture of the right humerus but there are no previous studies available for comparison Electronically Signed: Sixto Montoya MD at 11:26 EDT , Foot X-Ray 06/01/22 10:37 IMPRESSION: Polyarticular arthrosis with calcaneal spurs, no demonstrated fracture or suspicious osseous lesion Electronically Signed: Sixto Montoya MD at 11:25 EDT , Tibia/Fibula X-Ray 06/01/22 10:37 IMPRESSION: Osteopenia, no demonstrated fracture Electronically Signed: Sixto Montoya MD at 11:27 EDT , Chest CTA 06/01/22 11:33 IMPRESSION: No demonstrated PE, or thoracic aortic aneurysm or dissection Hyperexpanded lungs with chronic interstitial changes, honeycombing in the periphery, nonspecific pleural thickening and dependent atelectasis. No organized infiltrate. Prominent retrocardiac hiatal hernia with CT evidence of reflux esophagitis Electronically Signed: Sixto Montoya MD at 12:25 EDT , Forearm X-Ray 06/01/22 15:30 IMPRESSION: Partially healed distal radial and ulnar fractures. Shoulder X-Ray 06/01/22 15:30 IMPRESSION: Humeral neck fracture, unchanged by report since prior x-ray report (images not available). Wrist X-Ray 06/01/22 15:30 IMPRESSION: Healing fractures of the distal radius and ulna. Charges/Coding Visit Charges Inpatient E&M: 38492 Subs Hosp L2
[2022-06-02] MEDS: Cefazolin 2 GM in 0.9% Normal Saline 100 ML IV ×2 (13:24→22:19)
[2022-06-02] MEDS: Juven (unflavored) Packet 1 PACKET PO (16:27)
[2022-06-03] VITALS (10 sets, daily range): BP systolic 117–139; BP diastolic 51–66; PULSE 69–81; RESP 16–18; TEMP 36.6–37.3; O2SAT 97
[2022-06-03] MEDS: Na Biphos/Potassium Phosphate PACKET 1 PACKET PO (05:32)
[2022-06-03] MEDS: Cefazolin 2 GM in 0.9% Normal Saline 100 ML IV ×3 (05:32→21:35)
[2022-06-03 06:30] LABS: Absolute Neutrophil Count 6.5 X10^3/uL (2.0-7.7); Basophil# 0.01 X10^3/uL; Basophil% 0.1 % (0-1); Hematocrit 28.8 % (37-47); Hemoglobin 9.6 g/dL (12.0-15.0); Lymphocyte % 6.7 % (19-41); Mean Corp Hgb Conc 33.3 g/dL (32-36); Mean Corpuscular Hgb 30.7 pg (27.0-32.0); Mean Platelet Vol. 11.2 fl (6.2-12.0); Monocyte# 0.48 X10^3/uL; Monocyte% 6.4 % (0-10); NRBC Flagged by Analyzer 0 % (0-5); Neutrophil # 6.45 X10^3/uL (2.7-7.7); Neutrophil % 86.1 % (47-70); POSITIVE DIFFERENTIAL YES; Platelet Count 128 K/mm3 (150-450); RBC Distribution Width CV 15.1 % (11.6-14.6); RBC Distribution Width SD 50.1 fl (35.1-43.9); Red Blood Count 3.13 M/mm3 (4.2-5.4); White Blood Count 7.5 K/mm3 (4.4-11.0)
[2022-06-03 06:54] LABS: Differential Indicated SCAN CRITERIA MET
[2022-06-03 07:05] LABS: Anion Gap 9 (5-15); BUN 16 mg/dL (7-18); BUN/Creat Ratio 18.5 RATIO (10-20); Calcium,Total 8.3 mg/dL (8.5-10.1); Chloride 98 mmol/L (98-107); Creatinine, Serum 0.86 mg/dL (0.55-1.02); EST Glomerular Filtration Rate 67 mL/min (>60); Est Glom Filt Rate - Afr Amer 81 mL/min (>60); Estimated Creatinine Clearance 48.03 ml/min; Glucose 98 mg/dL (74-106); Potassium 3.8 mmol/L (3.5-5.1); Sodium Level 130 mmol/L (136-145)
[2022-06-03 07:59] LABS: Platelet Estimate SLT DEC (ADEQ); Red Cell Morphology NORM C+C NORMAL (NORM C&C)
--- NOTE | 2022-06-03 08:55 | PCM.PROGNOTE ---
Subjective Subjective Patient was seen this morning for follow up on right foot ulcer and associated cellulitis. MRI was negative for osteomyelitis and no abscess to the foot. WBC now normal. She is sitting up eating breakfast. Objective Data Objective Data Vital Signs: Vital Signs Temp Pulse Resp BP Pulse Ox O2 Del Method O2 Flow Rate 99.2 F H 81 16 139/56 H 97 Room Air 2 06/03/22 04:36 06/03/22 07:00 06/03/22 04:36 06/03/22 04:36 06/03/22 04:36 06/03/22 08:34 06/01/22 22:00 FiO2 21 06/02/22 23:00 Oxygen Flow Rate (L/min) 2 Oxygen Delivery Method Room Air Weight: 88.8 kg Body Mass Index (BMI) 31.1 Intake & Output: Intake and Output for Last 24 Hours 06/01/22 06/02/22 06/03/22 23:59 23:59 23:59 Intake Total 2564 / 2564 2047.5 / 2347.5 710 / 710 Output Total 600 / 600 400 / 400 Balance 2564 / 2564 1447.5 / 1747.5 310 / 310 Lab / Micro Data Result Diagrams: 06/03/22 05:20 06/03/22 05:20 Labs: Laboratory Results - last 24 hr 06/03/22 05:20: WBC 7.5, RBC 3.13 L, Hgb 9.6 L, Hct 28.8 L, MCV 92.0, MCH 30.7, MCHC 33.3, RDW Std Deviation 50.1 H, RDW Coeff of Danny 15.1 H, Plt Count 128 L, MPV 11.2, Immature Gran % (Auto) 0.700, Neut % (Auto) 86.1 H, Lymph % (Auto) 6.7 L, [place] % (Auto) 6.4, Eos % (Auto) 0.0, Baso % (Auto) 0.1, Absolute Neuts (auto) 6.5, Absolute Lymphs (auto) 0.50 L, Nucleated RBC % 0, Differential Comment , Platelet Estimate SLT DEC, RBC Morphology NORM C+C 06/03/22 05:20: Sodium 130 L, Potassium 3.8, Chloride 98, Carbon Dioxide 23.0, Anion Gap 9, BUN 16, Creatinine 0.86, Estim Creat Clear Calc 48.03, Est GFR (MDRD) Af Amer 81, Est GFR (MDRD) Non-Af 67, BUN/Creatinine Ratio 18.5, Glucose 98, Calcium 8.3 L Micro: Microbiology 06/01/22 17:40 Wound - Right Foot Gram Stain - Final 06/01/22 17:40 Wound - Right Foot Wound Culture - Preliminary Streptococcus group C 06/01/22 11:22 Urine, Clean Catch Urine Culture - Preliminary Culture exhibits no growth. 06/01/22 11:00 Nasal Secretion SARS-CoV-2 Antigen (Rapid) - Final Radiography Diagnostic Testing: Radiology Impression Venous Doppler Study 06/01/22 11:41 Interpretation Summary There is no evidence of right lower extremity deep vein thrombosis. Right great saphenous vein appears patent and compressible segmentally. Right groin lymph nodes measuring 1.17 x 1.66 x 2.88 cm and 0.96 x 2 x 3.12 cm Ordering Physician: Juanito Schulte Referring Physician: Angelika Monsivais M.D. Performed By: Brigette Cavaozs, [facility] Lower Extremity MRI 06/02/22 11:00 IMPRESSION: No evidence of osteomyelitis first metatarsal nor of the first proximal and distal phalanges. Moderate osteoarthritis first MTP joint with small joint effusion. Cellulitis extending from the first metatarsophalangeal joint into the great toe. Dorsiflexion of the first through fifth MCP joints. Electronically Signed: Servando Ross MD, JERRICA at 12:24 EDT , Physical Exam Const alert, oriented x3 and no apparent distress Extremity Extremity Narrative: Right foot with ulceration sub 1st metatarsal head s/p debridement with healthy and viable tissue - granular base and margins - down to subcutaneous tissue - the foot cellulitis is significantly improved. There is significant erythema to the right leg with edema and also some calf pain with increased temperature, there is no fluctuance, no crepitus, no maloder, no blistering, no visible abscess, CFT < 2 seconds to all toes with intact pedal pulses. There is diffuse peripheral neuropathy to the foot. There is no m/s POP or pain on ROM to the foot or ankle, right. There is a callus sub 1st met head left foot with no open lesion which is well maintained at this time. Assessment & Plan Assessment/Plan (1) Cellulitis of right leg: (2) 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 exposed: (3) Other hereditary and idiopathic neuropathies: (4) Venous insufficiency (chronic) (peripheral): PLAN: Plan Re-evaluation performed. Reviewed diagnostic data. WBC normal this morning. Reviewed right foot xrays and tib/fib xrays - no gas or clear evidence of osteomyelitis. MRI right foot was ordered and reviewed - no foot osteomyelitis or abscess. The ulceration right foot has been debrided. The cellulitis to right foot is significantly improved this morning, but right leg still with significant erythema. A culture was obtained of right foot ulcer and sent to microbiology - MRSA negative on PCR, growing strep C. Patient is on IV antibiotic Cefazolin. No weightbearing right foot. Keep right foot elevated. Podiatry will continue to follow.
--- NOTE | 2022-06-03 09:27 | PN.HOSP_ITS ---
Subjective Subjective Feeling better. Leg feeling better, but leg still red. Objective Data Objective Data Vital Signs: Vital Signs Temp Pulse Resp BP Pulse Ox O2 Del Method O2 Flow Rate 37.3 C H 81 16 139/56 H 97 Room Air 2 06/03/22 04:36 06/03/22 07:00 06/03/22 04:36 06/03/22 04:36 06/03/22 04:36 06/03/22 08:34 06/01/22 22:00 FiO2 21 06/02/22 23:00 Oxygen Flow Rate (L/min) 2 Oxygen Delivery Method Room Air Weight: 88.8 kg Body Mass Index (BMI) 31.1 Intake & Output: Intake and Output for Last 24 Hours 06/01/22 06/02/22 06/03/22 23:59 23:59 23:59 Intake Total 2564 / 2564 2047.5 / 2347.5 710 / 710 Output Total 600 / 600 400 / 400 Balance 2564 / 2564 1447.5 / 1747.5 310 / 310 Lab / Micro Data Result Diagrams: 06/03/22 05:20 06/03/22 05:20 Labs: Laboratory Results - last 24 hr 06/03/22 05:20: WBC 7.5, RBC 3.13 L, Hgb 9.6 L, Hct 28.8 L, MCV 92.0, MCH 30.7, MCHC 33.3, RDW Std Deviation 50.1 H, RDW Coeff of Danny 15.1 H, Plt Count 128 L, MPV 11.2, Immature Gran % (Auto) 0.700, Neut % (Auto) 86.1 H, Lymph % (Auto) 6.7 L, [place] % (Auto) 6.4, Eos % (Auto) 0.0, Baso % (Auto) 0.1, Absolute Neuts (auto) 6.5, Absolute Lymphs (auto) 0.50 L, Nucleated RBC % 0, Differential Comment , Platelet Estimate SLT DEC, RBC Morphology NORM C+C 06/03/22 05:20: Sodium 130 L, Potassium 3.8, Chloride 98, Carbon Dioxide 23.0, Anion Gap 9, BUN 16, Creatinine 0.86, Estim Creat Clear Calc 48.03, Est GFR (MDRD) Af Amer 81, Est GFR (MDRD) Non-Af 67, BUN/Creatinine Ratio 18.5, Glucose 98, Calcium 8.3 L Micro: Microbiology 06/01/22 17:40 Wound - Right Foot Gram Stain - Final 06/01/22 17:40 Wound - Right Foot Wound Culture - Preliminary Streptococcus group C Staphylococcus aureus 06/01/22 11:22 Urine, Clean Catch Urine Culture - Preliminary Culture exhibits no growth. 06/01/22 11:08 Blood Culture (Wb) - Left Hand Blood Culture - Preliminary No growth in 48 hours. 06/01/22 10:35 Blood Culture (Wb) - Anticubital Left Blood Culture - Preliminary No growth in 48 hours. 06/01/22 11:00 Nasal Secretion SARS-CoV-2 Antigen (Rapid) - Final Radiography Diagnostic Testing: Radiology Impression Venous Doppler Study 06/01/22 11:41 Interpretation Summary There is no evidence of right lower extremity deep vein thrombosis. Right great saphenous vein appears patent and compressible segmentally. Right groin lymph nodes measuring 1.17 x 1.66 x 2.88 cm and 0.96 x 2 x 3.12 cm Ordering Physician: Juanito Schulte Referring Physician: Angelika Monsivais M.D. Performed By: Brigette Cavazos, [facility] Lower Extremity MRI 06/02/22 11:00 IMPRESSION: No evidence of osteomyelitis first metatarsal nor of the first proximal and distal phalanges. Moderate osteoarthritis first MTP joint with small joint effusion. Cellulitis extending from the first metatarsophalangeal joint into the great toe. Dorsiflexion of the first through fifth MCP joints. Electronically Signed: Servando Ross MD, JERRICA at 12:24 EDT , Physical Exam Const alert and no apparent distress Constitutional Narrative: up in chair. Skin Skin Narrative: right leg still red with macular confluent rash. Psych affect normal Assessment & Plan Assessment/Plan (1) Cellulitis of right leg: PLAN: RLE cellulitis with chronic subcutaneous small, dry ulcer over right first MTP head with osteopenia: Patient is being admitted in PCU. Started on IV antibiotics cefazolin. Patient does not have history of diabetes mellitus. 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 State Federal Relations Deputy Director is consulted. RLE elevation, warm compression. Patient is febrile 103.2 Fahrenheit, leukocytosis with left shift but not tachycardic or hypoxic. Lactic acid normal. Patient does not look toxic or clinical lab features suggestive of sepsis. Sepsis ruled out. 06/02: Patient is still febrile in the morning. IV cefazolin increased 2 g IV every 8 hourly. MRSA nasal screen negative. Patient had bedside debridement of dry ulcer of right first MTP head and culture was sent. Discussed with the dispatcher chief oil. Leukocytosis improving. MRI is ordered by dispatcher chief oil. Blood cultures x2 are pending. Mild hypokalemia Phosphorus 2.7 on low normal. On N eutra-Phos. Hypomagnesemia corrected. 06/03: Culture growing group C strep as well as staph aureus.Continue with cefazolin but will add vancomycin. (2) Elevated troponin: PLAN: Elevated troponin, unclear significance: Patient does not have chest pain or shortness of breath. No history of previous angina, [place] or coronary artery disease and she has been moving around or climbing stairs in home with no symptoms of exertional angina. Cycle troponin enzymes. 06/02: Patient serial troponin was 150, 230, 191 and then today 338. It does not seem patient having ACS as she does not have chest pain shortness of breath or any features but may be demand ischemia from cellulitis/infection. 2D echo is ordered. And discussed with life enrichment director Dr. Bonds and he has similar impression. (3) Rash: PLAN: Patient has been evaluated for vasculitis in the past procedure and there is some concern for pulmonary involvement but not been ruled out at that time which was in 2019. This may be cellulitis and will continue with antibiotics for now. PLAN: Plan 3. Chronic right shoulder surgical neck fracture and distal radial metaphysis and ulnar styloid process fracture probably pathological due to osteopenia, possible osteoporosis: The patient had fall in first week of April. X-rays of April 21 reviewed individually. The fracture of surgical neck of right shoulder and distal radius metaphysis with posterior displacement and transverse fracture of distal ulna with mild displacement and ulnar styloid fracture. Diffusely osteopenic bones. Repeat x-rays orders to see follow-up. 06/02: X-rays of right shoulder, forearm and wrist reviewed. Humerus surgical neck fracture unchanged from prior x-ray but distal radial ulnar fracture is healing. Communicated to the patient 4. Hypertension: Blood pressure was elevated but now normal. 5. Dyslipidemia: Continue statin. CK is high 657 but does not meet rhabdomyolysis. Continue IV fluid. Hold statin. Troponin may be elevated because of increased CK 6. Other comorbid include depression: Continue Paxil 7. DVT prophylaxis: Continue subcu Lovenox. Living will/advanced directive/end of life care: Patient does have living will or advanced directive. Her is POA of [facility]. After discussion of benefits/risks procedures involved with full code, DNR CC arrest and DNR CC, the patient and her opted for DNRCC arrest with no intubation. Patient and her do not want artificial life support including intubation, tube feed, ventilator and/chest compression, central venous catheter, vasopressor and DC shock if needed Total time spent in [id number] encounter in discussion of advanced directive 16 minutes. Charges/Coding Visit Charges Inpatient E&M: 54281 Subs Hosp L2
--- NOTE | 2022-06-03 09:49 | WOUNDNOTE ---
wound photo: right plantar foot
--- NOTE | 2022-06-03 09:52 | WOUNDNOTE ---
skin photo: right foot
--- NOTE | 2022-06-03 09:53 | WOUNDNOTE ---
skin photo: right lower leg
[2022-06-03] MEDS: Juven (unflavored) Packet 1 PACKET PO ×2 (10:09→16:57)
[2022-06-03] MEDS: Cholecalciferol (VIT D3) 25 MCG TABLET (1,000 UNITS) 50 MCG PO (10:11)
[2022-06-03] MEDS: Folic Acid 1 MG Tablet 2 MG PO (10:11)
[2022-06-03] MEDS: Aspirin 81 MG TAB.CHEW PO (10:11)
[2022-06-03] MEDS: Calcium Carb/Vitamin D 1 TABLET Tablet PO (10:11)
[2022-06-03] MEDS: Pantoprazole Sodium 40 MG Tablet PO (10:11)
[2022-06-03] MEDS: amLODIPine 2.5 MG Tablet PO (10:11)
[2022-06-03] MEDS: Multivitamins,Therapeutic Tablet 1 TABLET PO (10:12)
[2022-06-03] MEDS: Paroxetine 20 MG Tablet PO (10:12)
[2022-06-03] MEDS: Enoxaparin 40 MG/0.4 ML Syringe SC (10:12)
--- NOTE | 2022-06-03 11:00 | CASEMGMT ---
RN CLIFF Face to Face with patient for initial transition planning/care coordination assessment. RN CM introduced self and role at [facility]. Patient lying in bed, alert and oriented. Patient willing to participate in assessment and is able to answer all questions appropriately. Care providers, pharmacy, and demographics verified. Patient wishes to discharge home, denies need for home health at this time. Patient states she has no further needs or concerns at this time. CM to follow for discharge planning needs that may arise. PCP: Yodit Specialists: Robbi store promoter Preferred Pharmacy: [facility] Insurance: [employer] Prescription Benefit: yes Living Will/HPOA: yes, Maximilian Colvin, HPOA LNOK: Living Arrangements: Patient lives with in a single story home with 2 steps and railing or ramp to enter the home. Patient states she is independent at home. Transportation: self, DME/HHC: Patient states she has shower chair, raised toilet, grab bars, walker, cpap, and pulse ox at home. Patient denies previous HHC or SNF. Disposition Plan: Patient to discharge home with family support and follow-up plans in place. Brigette VITALE, RN, CM
[2022-06-03] MEDS: Ferrous Sulfate 325 MG Tablet PO (11:39)
--- NOTE | 2022-06-03 16:21 | PCM.RX.CS ---
Consult Pharmacy has been consulted to manage selected antiobiotic: Vancomycin Type of Consult: New start Suspected Infection: Skin/Soft tissue Labs: Sodium 130 mmol/L (136-145) L 06/03/22 05:20 Potassium 3.8 mmol/L (3.5-5.1) 06/03/22 05:20 Chloride 98 mmol/L (98-107) 06/03/22 05:20 Carbon Dioxide 23.0 mmol/L (21.0-32.0) 06/03/22 05:20 Anion Gap 9 (5-15) 06/03/22 05:20 BUN 16 mg/dL (7-18) 06/03/22 05:20 Creatinine 0.86 mg/dL (0.55-1.02) 06/03/22 05:20 Est GFR (MDRD) Af Amer 81 mL/min (>60) 06/03/22 05:20 Est GFR (MDRD) Non-Af 67 mL/min (>60) 06/03/22 05:20 BUN/Creatinine Ratio 18.5 RATIO (10-20) 06/03/22 05:20 Glucose 98 mg/dL (74-106) 06/03/22 05:20 Microbiology: Microbiology 06/01/22 11:22 Urine, Clean Catch Urine Culture - Final Culture exhibits no growth. 06/01/22 17:40 Wound - Right Foot Gram Stain - Final 06/01/22 17:40 Wound - Right Foot Wound Culture - Preliminary Streptococcus group C Staphylococcus aureus 06/01/22 11:08 Blood Culture (Wb) - Left Hand Blood Culture - Preliminary No growth in 48 hours. 06/01/22 10:35 Blood Culture (Wb) - Anticubital Left Blood Culture - Preliminary No growth in 48 hours. 06/01/22 11:00 Nasal Secretion SARS-CoV-2 Antigen (Rapid) - Final Goal Trough: 15-20 mcg/mL Pharmacy Plan for Drug Dosing: NEW START IV VANCOMYCIN Consulting Physician: Dr. Nima Peterson Indication: Cellulitis Goal Trough: 15-20 SrCr: 0.86 CrCl: 57.6 mls/min (using an adjusted body weight of 71kg) Comments: pt received a loading dose of 2000mg (25mg/kg) on 06/03/22 at 1454 Vancomcyin Dose: based on pts weight and renal function, recommend an initial dose of 750mg q12h starting 06/04/22 at 0200. trough before the 4th total dose Pending Level: 06/05/22 at 0130 Pharmacy Service will continue to monitor and adjust dosing as required. Follow-Up Labs: Trough Vancomycin - 06/05/22 at 0130
[2022-06-03] MEDS: Acetaminophen 325 MG Tablet 650 MG PO (20:13)
[2022-06-04] VITALS (7 sets, daily range): BP systolic 104–124; BP diastolic 48–51; PULSE 58–68; RESP 16–18; TEMP 36.8–37.2; O2SAT 97
[2022-06-04 04:59] LABS: Absolute Lymphocyte Count 0.56 X10^3/uL (0.83-4.51); Basophil# 0.02 X10^3/uL; Basophil% 0.4 % (0-1); Eosinophil# 0.09 X10^3/uL; Eosinophils% 1.7 % (0-5); Hematocrit 29.3 % (37-47); Hemoglobin 9.5 g/dL (12.0-15.0); Lymphocyte # 0.56 X10^3/ul (0.83-4.51); Lymphocyte % 10.6 % (19-41); Mean Corp Hgb Conc 32.4 g/dL (32-36); Mean Corpuscular Hgb 30.4 pg (27.0-32.0); Mean Corpuscular Volume 93.9 fL (81-99); Mean Platelet Vol. 11.2 fl (6.2-12.0); Monocyte# 0.57 X10^3/uL; Monocyte% 10.8 % (0-10); NRBC Flagged by Analyzer 0 % (0-5); Neutrophil # 4.03 X10^3/uL (2.7-7.7); Neutrophil % 75.9 % (47-70); POSITIVE DIFFERENTIAL YES; Platelet Count 146 K/mm3 (150-450); RBC Distribution Width CV 14.8 % (11.6-14.6); RBC Distribution Width SD 50.7 fl (35.1-43.9); Red Blood Count 3.12 M/mm3 (4.2-5.4); White Blood Count 5.3 K/mm3 (4.4-11.0)
[2022-06-04 05:08] LABS: Differential Indicated SCAN CRITERIA MET
[2022-06-04 05:21] LABS: Anion Gap 6 (5-15); BUN 21 mg/dL (7-18); BUN/Creat Ratio 24.7 RATIO (10-20); Calcium,Total 8.6 mg/dL (8.5-10.1); Chloride 103 mmol/L (98-107); Creatinine, Serum 0.85 mg/dL (0.55-1.02); EST Glomerular Filtration Rate 68 mL/min (>60); Est Glom Filt Rate - Afr Amer 83 mL/min (>60); Estimated Creatinine Clearance 48.59 ml/min; Glucose 93 mg/dL (74-106); Potassium 3.6 mmol/L (3.5-5.1); Sodium Level 134 mmol/L (136-145)
[2022-06-04 05:30] LABS: Differential Comment SCANNED
[2022-06-04] MEDS: Cefazolin 2 GM in 0.9% Normal Saline 100 ML IV (06:22)
--- NOTE | 2022-06-04 06:46 | PN_ITS ---
Subjective Subjective Patient was seen this morning for follow up on right foot/ankle/leg. Patient had venous doppler right LE yesterday and was negative for DVT. Patient's temp 99F She relates her right leg is feeling better today. She is resting comfortably in bed this morning. Objective Data Objective Data Vital Signs: Vital Signs Temp Pulse Resp BP Pulse Ox O2 Del Method O2 Flow Rate 99 F 66 18 104/48 L 97 Room Air 2 06/04/22 04:00 06/04/22 04:00 06/04/22 04:00 06/04/22 04:00 06/04/22 04:00 06/04/22 04:00 06/01/22 22:00 FiO2 21 06/02/22 23:00 Oxygen Flow Rate (L/min) 2 Oxygen Delivery Method Room Air Weight: 88.3 kg Body Mass Index (BMI) 31.1 Intake & Output: Intake and Output for Last 24 Hours 06/02/22 06/03/22 06/04/22 23:59 23:59 23:59 Intake Total 2047.5 / 2347.5 1950 / 1950 265 / 265 Output Total 600 / 600 900 / 900 Balance 1447.5 / 1747.5 1050 / 1050 265 / 265 Lab / Micro Data Result Diagrams: 06/04/22 04:29 06/04/22 04:29 Labs: Laboratory Results - last 24 hr 06/03/22 05:20: WBC 7.5, RBC 3.13 L, Hgb 9.6 L, Hct 28.8 L, MCV 92.0, MCH 30.7, MCHC 33.3, RDW Std Deviation 50.1 H, RDW Coeff of Danny 15.1 H, Plt Count 128 L, MPV 11.2, Immature Gran % (Auto) 0.700, Neut % (Auto) 86.1 H, Lymph % (Auto) 6.7 L, [place] % (Auto) 6.4, Eos % (Auto) 0.0, Baso % (Auto) 0.1, Absolute Neuts (auto) 6.5, Absolute Lymphs (auto) 0.50 L, Nucleated RBC % 0, Differential Comment , Platelet Estimate SLT DEC, RBC Morphology NORM C+C 06/03/22 05:20: Sodium 130 L, Potassium 3.8, Chloride 98, Carbon Dioxide 23.0, Anion Gap 9, BUN 16, Creatinine 0.86, Estim Creat Clear Calc 48.03, Est GFR (MDRD) Af Amer 81, Est GFR (MDRD) Non-Af 67, BUN/Creatinine Ratio 18.5, Glucose 98, Calcium 8.3 L 06/04/22 04:29: WBC 5.3, RBC 3.12 L, Hgb 9.5 L, Hct 29.3 L, MCV 93.9, MCH 30.4, MCHC 32.4, RDW Std Deviation 50.7 H, RDW Coeff of Danny 14.8 H, Plt Count 146 L, MPV 11.2, Immature Gran % (Auto) 0.600, Neut % (Auto) 75.9 H, Lymph % (Auto) 10.6 L, [place] % (Auto) 10.8 H, Eos % (Auto) 1.7, Baso % (Auto) 0.4, Absolute Neuts (auto) 4.0, Absolute Lymphs (auto) 0.56 L, Nucleated RBC % 0, Differential Comment SCANNED 06/04/22 04:29: Sodium 134 L, Potassium 3.6, Chloride 103, Carbon Dioxide 25.0, Anion Gap 6, BUN 21 H, Creatinine 0.85, Estim Creat Clear Calc 48.59, Est GFR (MDRD) Af Amer 83, Est GFR (MDRD) Non-Af 68, BUN/Creatinine Ratio 24.7 H, Glucose 93, Calcium 8.6 Micro: Microbiology 06/01/22 11:22 Urine, Clean Catch Urine Culture - Final Culture exhibits no growth. 06/01/22 17:40 Wound - Right Foot Gram Stain - Final 06/01/22 17:40 Wound - Right Foot Wound Culture - Preliminary Streptococcus group C Staphylococcus aureus 06/01/22 11:08 Blood Culture (Wb) - Left Hand Blood Culture - Preliminary No growth in 48 hours. 06/01/22 10:35 Blood Culture (Wb) - Anticubital Left Blood Culture - Preliminary No growth in 48 hours. 06/01/22 11:00 Nasal Secretion SARS-CoV-2 Antigen (Rapid) - Final Physical Exam Const alert, oriented x3 and no apparent distress Extremity Extremity Narrative: Right foot with ulceration sub 1st metatarsal head s/p debridement with healthy and viable tissue - granular base and margins - down to subcutaneous tissue - the foot cellulitis is significantly improved. There is remaining erythema to the right leg with edema and also some calf pain with increased temperature, there is no fluctuance, no crepitus, no maloder, no blistering, no visible abscess, CFT < 2 seconds to all toes with intact pedal pulses. There is diffuse peripheral neuropathy to the foot. There is no m/s POP or pain on ROM to the foot or ankle, right. There is a callus sub 1st met head left foot with no open lesion which is well maintained at this time. Assessment & Plan Assessment/Plan (1) Cellulitis of right leg: (2) 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 exposed: (3) Other hereditary and idiopathic neuropathies: (4) Venous insufficiency (chronic) (peripheral): PLAN: Plan Re-evaluation performed. Reviewed diagnostic data. WBC normal this morning. Reviewed right foot xrays and tib/fib xrays - no gas or clear evidence of osteomyelitis. MRI right foot was ordered and reviewed - no foot osteomyelitis or abscess. The ulceration right foot has been debrided - ulceration is healing well. The cellulitis to right foot is significantly improved this morning, however right leg still with erythema. A culture was obtained of right foot ulcer and sent to microbiology - MRSA negative on PCR, growing strep C and now also staph. Patient is on IV antibiotic Cefazolin, and Vancomycin has been added. No weightbearing right foot. Keep right foot elevated. Podiatry will continue to follow.
[2022-06-04] MEDS: Multivitamins,Therapeutic Tablet 1 TABLET PO (08:17)
[2022-06-04] MEDS: Folic Acid 1 MG Tablet 2 MG PO (08:17)
[2022-06-04] MEDS: Aspirin 81 MG TAB.CHEW PO (08:17)
[2022-06-04] MEDS: amLODIPine 2.5 MG Tablet PO (08:18)
[2022-06-04] MEDS: Pantoprazole Sodium 40 MG Tablet PO (08:18)
[2022-06-04] MEDS: Calcium Carb/Vitamin D 1 TABLET Tablet PO (08:18)
[2022-06-04] MEDS: Cholecalciferol (VIT D3) 25 MCG TABLET (1,000 UNITS) 50 MCG PO (08:19)
[2022-06-04] MEDS: Enoxaparin 40 MG/0.4 ML Syringe SC (08:19)
[2022-06-04] MEDS: Ferrous Sulfate 325 MG Tablet PO (08:19)
--- NOTE | 2022-06-04 10:44 | CASEMGMT ---
Social Work SW spoke w/pt in room in regard to discharge plan. We spoke about pt's ability to maintain non weight bearing status on her right foot. Pt states she will manage at home, declines going to a shelter facility. We spoke again about how she is going to maintain the non weight bearing status here as her PT notes are reflecting that she needs assist. SW spoke w/her about going to a shelter facility to gain strength so she can stay off of her foot. Again, pt declined and states she will get stronger at home. Pt then asked about changing her pharmacy from [facility] in [place], as sometimes they do not have the medications she needs. We discussed other options, pt would like her scripts sent to [facility]. SW explained can change her preference in the system. SW then did go into [facility] and changed pt's preference to [facility]. No further social service needs, pt declining SNF referral at this time. TONYA Smith
--- NOTE | 2022-06-04 11:04 | DCINST_ITS ---
Discharge Instructions Diet Discharge Diet: Low fat / Low cholesterol Activity Discharge Activity: Return to Normal Activity and Use Walker Weight Bearing Status: - (heel weight bearing right foot. avoid walking on right forefoot. ) Keep extremity elevated above heart level: Right Leg Dressing / Incision Call your doctor if your incision/area has: Continuous Slow Oozing, Sudden Increased Bleeding and Foul Smelling Discharge Call your doctor if you observe: Fever of 101 or Higher and - (increased redness of right leg) Follow Up Care Test Results: Test results from this visit will be discussed in further detail at your follow- up appointment, if applicable. Discharge Plan Admission Admit Date/Time: 06/01/22 12:40 Primary Reason for Your Visit: right foot and leg cellulitis Attending Provider: Alfredo Peterson Primary Care Provider: Angelika Monsivais Consulting Providers: Reji Lebron ; Gideon Cooper Discharge Orders/Prescriptions Prescriptions: New acetaminophen [Tylenol] 325 mg Tablet 650 mg PO Q6H PRN PRN (Reason: Pain Score 1-10/Temp > 100.7 F) Qty: 0 0RF levofloxacin 750 mg tablet 750 mg PO DAILY Qty: 5 0RF Continued omeprazole 20 mg capsule,delayed release(DR/EC) 20 mg PO DAILY multivitamin 1 EACH tablet 1 ea PO DAILY Label Comments: supplement atorvastatin 20 MG tablet 20 mg PO QHS Label Comments: lower cholesterol paroxetine HCl 20 MG tablet 20 mg PO DAILY Label Comments: mood enhancer calcium carbonate-vitamin D3 1 EACH tablet,chewable 1 tab PO DAILY Label Comments: supplement cholecalciferol (vitamin D3) 1,000 UNIT tablet 2,000 unit PO DAILY Label Comments: supplement amlodipine 2.5 MG tablet 2.5 mg PO DAILY aspirin 325 MG tablet 81 mg PO DAILY ferrous sulfate [iron] 325 mg (65 mg iron) Tablet 325 mg PO DAILY folic acid 1 mg Tablet 2 mg PO DAILY epinephrine 0.3 mg/0.3 mL Auto-Injector 0.3 mg IM Q10M PRN (Reason: Anaphylaxis) fluticasone propionate 50 mcg/actuation [place],Suspension 2 spray INTRANASAL DAILY methotrexate 2.5 mg QWEEK Referrals / Follow Up: Reji Lebron DPM [Med Staff - Active Staff] - Within 2 Weeks Angelika Monsivais MD [Primary Care Provider] - Within 2 Weeks Salvatore Cervantes DO [Med Staff - Active Staff] - Within 2 Weeks Disposition Disposition (needs filled in before D/C Order can be placed): Home, Self Care
--- NOTE | 2022-06-04 11:20 | PCM.DC.SUM ---
Providers Date of Admission: 06/01/22 Primary Care Physician: Dr. Angelika Monsivais MD Consultations 06/01/22 13:51 Consult: Podiatry Routine Consulting Provider: Reji Lebron Reason for Consult: right foot dry ulcer, neuropathy EMERGENT Consult: No MD Notified: Yes Date Notified: 06/01/22 Time Notified: 13:28 Method of Notification: Text 06/01/22 17:49 Consult: Onc/Wound/podiatric foot and ankle specialist Routine Comment: Reason for Consult:: right foot wound Reason For Visit: CHRONIC ULCER ON RIGHT FOOT Diagnosis Discharge Diagnosis (1) Cellulitis of right leg: Status: Acute Code(s): L03.115 - Cellulitis of right lower limb Plan: RLE cellulitis with chronic subcutaneous small, dry ulcer over right first MTP head with osteopenia: Patient is being admitted in PCU. Started on IV antibiotics cefazolin. Patient does not have history of diabetes mellitus. 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 Wheel Cutter is consulted. RLE elevation, warm compression. Patient is febrile 103.2 Fahrenheit, leukocytosis with left shift but not tachycardic or hypoxic. Lactic acid normal. Patient does not look toxic or clinical lab features suggestive of sepsis. Sepsis ruled out. 06/02: Patient is still febrile in the morning. IV cefazolin increased 2 g IV every 8 hourly. MRSA nasal screen negative. Patient had bedside debridement of dry ulcer of right first MTP head and culture was sent. Discussed with the photoengraver apprentice. Leukocytosis improving. MRI is ordered by photoengraver apprentice. Blood cultures x2 are pending. Mild hypokalemia Phosphorus 2.7 on low normal. On Neutra-Phos. Hypomagnesemia corrected. 06/03: Culture growing group C strep as well as staph aureus.Continue with cefazolin but will add vancomycin. 06/04: Cultures growing group C strep as well as MSSA. DC with levofloxacin. (2) 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 exposed: Status: Resolved Code(s): L97.512 - 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 exposed Plan: Superficial ulcer under the right MTP. Discussed with Dr. Lebron who advised heel weightbearing only and for the patient to put no weightbearing on her forefoot. (3) Elevated troponin: Status: Acute Code(s): R77.8 - Other specified abnormalities of plasma proteins Plan: 2D echocardiogram from February 22, 2019 showed an EF of 60%., unchanged on 2d echo from 04/03. Case previously discussed with Dr. Bonds. Likely due to demand, type II event. Continue ASA. Follow up with cardiology as outpt. (4) Other hereditary and idiopathic neuropathies: Status: Acute Code(s): G60.8 - Other hereditary and idiopathic neuropathies (5) Venous insufficiency (chronic) (peripheral): Status: Chronic Code(s): I87.2 - Venous insufficiency (chronic) (peripheral) Plan 3. Chronic right shoulder surgical neck fracture and distal radial metaphysis and ulnar styloid process fracture probably pathological due to osteopenia, possible osteoporosis: The patient had fall in first week of April. X-rays of April 21 reviewed individually. The fracture of surgical neck of right shoulder and distal radius metaphysis with posterior displacement and transverse fracture of distal ulna with mild displacement and ulnar styloid fracture. Diffusely osteopenic bones. Repeat x-rays orders to see follow-up. 06/02: X-rays of right shoulder, forearm and wrist reviewed. Humerus surgical neck fracture unchanged from prior x-ray but distal radial ulnar fracture is healing. Communicated to the patient 4. Hypertension: Blood pressure was elevated but now normal. 5. Dyslipidemia: Continue statin. CK is high 657 but does not meet rhabdomyolysis. Continue IV fluid. Hold statin. Troponin may be elevated because of increased CK 6. Other comorbid include depression: Continue Paxil 7. DVT prophylaxis: Continue subcu Lovenox. Medications at Discharge Home Medications atorvastatin 20 mg tablet 20 mg PO QHS 12/15/15 calcium carbonate 500 mg-vitamin D3 10 mcg (400 unit) chewable tablet 1 tab PO DAILY 12/15/15 cholecalciferol (vitamin D3) 25 mcg (1,000 unit) tablet 2,000 unit PO DAILY 12/15/15 multivitamin 1 ea PO DAILY 12/15/15 paroxetine HCl 20 mg tablet 20 mg PO DAILY 12/15/15 amlodipine 2.5 mg tablet 2.5 mg PO DAILY 02/17/19 aspirin 325 mg tablet 81 mg PO DAILY 02/17/19 epinephrine 0.3 mg/0.3 mL injection, auto-injector 0.3 mg IM Q10M PRN Anaphylaxis 05/09/21 ferrous sulfate 325 mg (65 mg iron) tablet (iron) 325 mg PO DAILY 05/09/21 fluticasone propionate 50 mcg/actuation nasal spray,suspension 2 spray intranasal DAILY 05/09/21 folic acid 1 mg tablet 2 mg PO DAILY 05/09/21 methotrexate 2.5 mg QWEEK 05/09/21 omeprazole 20 mg capsule,delayed release 20 mg PO DAILY 10/09/21 acetaminophen 325 mg tablet (Tylenol) 650 mg PO Q6H PRN PRN Pain Score 1-10/Temp > 100.7 F #0 tabs 06/04/22 levofloxacin 750 mg tablet 750 mg PO DAILY #5 tabs 06/04/22 Hospital Course Operations None Procedures None Summary of Care Provided Minutes Spent on Discharge: 35 Hospital Course: 81-year-old female presents with right lower extremity cellulitis. Cellulitis but likely began from superficial ulceration forefoot of her right foot under her right MTP. Patient was started on cefazolin and subsequently added vancomycin. Patient did have marked erythema of her right lower extremity that seemed atypical for cellulitis. Patient had previous been evaluated for vasculitis and work-up had come back unremarkable. Culture from the wound grew out group C strep as well as MSSA. Patient will be just charged with levofloxacin. Patient did have elevated troponins. 2D echocardiogram showed an EF of 60% which was unchanged from 2019. Case discussed with the cardiology by the previous hospitalist information systems security officer to not be an acute type I event. Physical Exam Const alert and no apparent distress Skin Skin Narrative: Still with erythema on the right lower extremity but appears more faint today. Weight / BMI Weight Weight: 88.3 kg Body Mass Index (BMI) 31.1 ABG / Lab / Microbiology Data Result Diagrams: 06/04/22 04:29 06/04/22 04:29 Laboratory: Laboratory Results - last 24 hr 06/04/22 04:29: WBC 5.3, RBC 3.12 L, Hgb 9.5 L, Hct 29.3 L, MCV 93.9, MCH 30.4, MCHC 32.4, RDW Std Deviation 50.7 H, RDW Coeff of Danny 14.8 H, Plt Count 146 L, MPV 11.2, Immature Gran % (Auto) 0.600, Neut % (Auto) 75.9 H, Lymph % (Auto) 10.6 L, [place] % (Auto) 10.8 H, Eos % (Auto) 1.7, Baso % (Auto) 0.4, Absolute Neuts (auto) 4.0, Absolute Lymphs (auto) 0.56 L, Nucleated RBC % 0, Differential Comment SCANNED 06/04/22 04:29: Sodium 134 L, Potassium 3.6, Chloride 103, Carbon Dioxide 25.0, Anion Gap 6, BUN 21 H, Creatinine 0.85, Estim Creat Clear Calc 48.59, Est GFR (MDRD) Af Amer 83, Est GFR (MDRD) Non-Af 68, BUN/Creatinine Ratio 24.7 H, Glucose 93, Calcium 8.6 Microbiology: Microbiology 06/01/22 17:40 Wound - Right Foot Gram Stain - Final 06/01/22 17:40 Wound - Right Foot Wound Culture - Final Streptococcus group C Staphylococcus aureus 06/01/22 17:40 Wound - Right Foot Anaerobic Culture - Preliminary 06/01/22 11:22 Urine, Clean Catch Urine Culture - Final Culture exhibits no growth. 06/01/22 11:08 Blood Culture (Wb) - Left Hand Blood Culture - Preliminary No growth in 48 hours. 06/01/22 10:35 Blood Culture (Wb) - Anticubital Left Blood Culture - Preliminary No growth in 48 hours. 06/01/22 11:00 Nasal Secretion SARS-CoV-2 Antigen (Rapid) - Final D/C Instructions Discharge Diet: Low fat / Low cholesterol Weight Bearing Status: - (heel weight bearing right foot. avoid walking on right forefoot. ) Keep extremity elevated above heart level: Right Leg Call your doctor if your incision/area has: Continuous Slow Oozing, Sudden Increased Bleeding and Foul Smelling Discharge Call your doctor if you observe: Fever of 101 or Higher and - (increased redness of right leg) Meaningful Use Info Meaningful Use Diagnoses (Choose all that apply): None applicable Discharge Plan Admission Admit Date/Time: 06/01/22 12:40 Primary Reason for Your Visit: right foot and leg cellulitis Attending Provider: Alfredo Peterson Primary Care Provider: Angelika Monsivais Consulting Providers: Reji Lebron ; Gideon Cooper Discharge Orders/Prescriptions Prescriptions: New acetaminophen [Tylenol] 325 mg Tablet 650 mg PO Q6H PRN PRN (Reason: Pain Score 1-10/Temp > 100.7 F) Qty: 0 0RF levofloxacin 750 mg tablet 750 mg PO DAILY Qty: 5 0RF Continued omeprazole 20 mg capsule,delayed release(DR/EC) 20 mg PO DAILY multivitamin 1 EACH tablet 1 ea PO DAILY Label Comments: supplement atorvastatin 20 MG tablet 20 mg PO QHS Label Comments: lower cholesterol paroxetine HCl 20 MG tablet 20 mg PO DAILY Label Comments: mood enhancer calcium carbonate-vitamin D3 1 EACH tablet,chewable 1 tab PO DAILY Label Comments: supplement cholecalciferol (vitamin D3) 1,000 UNIT tablet 2,000 unit PO DAILY Label Comments: supplement amlodipine 2.5 MG tablet 2.5 mg PO DAILY aspirin 325 MG tablet 81 mg PO DAILY ferrous sulfate [iron] 325 mg (65 mg iron) Tablet 325 mg PO DAILY folic acid 1 mg Tablet 2 mg PO DAILY epinephrine 0.3 mg/0.3 mL Auto-Injector 0.3 mg IM Q10M PRN (Reason: Anaphylaxis) fluticasone propionate 50 mcg/actuation [place],Suspension 2 spray INTRANASAL DAILY methotrexate 2.5 mg QWEEK Referrals / Follow Up: Reji Lebron DPM [Med Staff - Active Staff] - Within 2 Weeks Angelika Monsivais MD [Primary Care Provider] - Within 2 Weeks Salvatore Cervantes DO [Med Staff - Active Staff] - Within 2 Weeks [facility] [Provider Group] - Within 1 Month Disposition Disposition (needs filled in before D/C Order can be placed): Home, Self Care Charges/Coding Visit Charges Inpatient E&M: 15585 Disch Hosp
--- NOTE | 2022-06-04 11:47 | CASEMGMT ---
This RN CM to room to discuss discharge plan with pt. Pt declines SNF, HHC, or OP therapy and states she just needs to f/u with Dr. Culp on and it will be fine. When asked if she can maintain NWB status at home per podiatry recommendation, pt states 'that is not going to help anything anyway.' Pt states I once had a cast on it and the wound healed but then when I started walking on it again, it came back.' This RN CM advised pt that she just stated that not being on wound helped but pt reiterates again, 'that's not the problem, thanks for your concern, but I will see Dr. Culp on as scheduled and see what she says.' Pt states has a WW at home to assist with ambulation and she will just walk on the side of her foot 'like I always do.' Pt voices no further questions/concerns/needs. SStaten RN CM
== END 2022-06-04 15:07 | disposition home or self-care (01) | DRG 571 ==
LOC: ED 11:07 → PCU 13:15
PROVIDERS: Podiatrist; Admitting Provider Internal Medicine; Emergency Provider Student in an Organized Health Care Education/Training Program; PCP Internal Medicine
DX: L97.512 Non-pressure chronic ulcer of other part of right foot with fat layer exposed (principal); L03.115 Cellulitis of right lower limb; E87.1 Hypo-osmolality and hyponatremia; E78.5 Hyperlipidemia, unspecified; I10 Essential (primary) hypertension; G62.9 Polyneuropathy, unspecified; I87.2 Venous insufficiency (chronic) (peripheral); E87.6 Hypokalemia; G60.8 Other hereditary and idiopathic neuropathies; M80.0 Age-related osteoporosis with current pathological fracture; R77.8 Other specified abnormalities of plasma proteins; M85.839 Other specified disorders of bone density and structure, unspecified forearm; Z87.891 Personal history of nicotine dependence; Z51.5 Encounter for palliative care; R50.9 Fever, unspecified; Z79.82 Long term (current) use of aspirin; Z79.01 Long term (current) use of anticoagulants; Z66 Do not resuscitate; M80.031D Age-related osteoporosis with current pathological fracture, right forearm, subsequent encounter for fracture with routine healing; F32.A Depression, unspecified; B95.61 Methicillin susceptible Staphylococcus aureus infection as the cause of diseases classified elsewhere
CPT/HCPCS: 36415; 71045; 71275; 73030; 73090; 73110; 73590; 73630; 73718; 80048; 80053; 81001; 82550; 83605; 83735; 84100; 84443; 84484; 85025; 85652; 86140; 87040; 87070; 87075; 87077; 87086; 87186; 87205; 87640; 87641; 87811; 93005; 93306; 93971; 94002; 94762; 97162; 97166; 97530; 97535; 97802; 99285; J7030; J7040; J7050; Q9967; A4216; J2405

== ENCOUNTER 2022-06-09 10:32 | Emergency (ER) | payer MEDICARE, SELFPAY ==
[2022-06-09 10:33] VITALS: BP 157/59; PULSE 84; RESP 14; TEMP 36.8; O2SAT 98; BMI 29.7
[2022-06-09 10:53] VITALS: BP 120/45; PULSE 75; RESP 18; TEMP 36.2; O2SAT 97
--- NOTE | 2022-06-09 11:24 | RAD_ITS ---
STUDY: X-RAY - RIGHT FOOT CLINICAL: Female, 81 years old. ulcer, worsening infection TECHNIQUE: 3 view(s) of the foot. COMPARISON: None. FINDINGS: No visualized acute fracture or displaced bony fragment. Moderate to severe narrowing of the IP joints of the second through fifth digits. No visualized cortical erosion or bony destruction or soft tissue gas on the current exam. Moderate soft tissue swelling is present over the dorsum of the foot. A small calcaneal spur is present. Normal talus, calcaneus, and tarsal bones. The bony structures are mildly demineralized. Normal visualized subtalar, talonavicular, calcaneocuboid, tarsal and tarsometatarsal articulations. Normal metatarsi. Normal metatarsophalangeal joint of the great toe. Normal tibial and fibular sesamoid bones. Normal interphalangeal joint of the great toe. Normal phalanges of the great toe. RAD/Foot min 3 Views IMPRESSION: 1. No visualized acute fracture or displaced bony fragment. Moderate to severe narrowing of the IP joints of the second through fifth digits. 2. No visualized cortical erosion or bony destruction or soft tissue gas on the current exam. 3. Moderate soft tissue swelling is present over the dorsum of the foot Electronically Signed: Wilbert Pagan MD at 12:51 EDT Reading Location ID and State: [address] [place] [address] , Service support ,
[2022-06-09 12:04] LABS: Absolute Lymphocyte Count 0.86 X10^3/uL (0.83-4.51); Absolute Neutrophil Count 6.2 X10^3/uL (2.0-7.7); Basophil# 0.04 X10^3/uL; Basophil% 0.5 % (0-1); Eosinophil# 0.35 X10^3/uL; Eosinophils% 4.1 % (0-5); Hematocrit 33.4 % (37-47); Hemoglobin 10.6 g/dL (12.0-15.0); Lymphocyte # 0.86 X10^3/ul (0.83-4.51); Lymphocyte % 10.1 % (19-41); Mean Corp Hgb Conc 31.7 g/dL (32-36); Mean Corpuscular Hgb 30.1 pg (27.0-32.0); Mean Corpuscular Volume 94.9 fL (81-99); Monocyte# 0.87 X10^3/uL; Monocyte% 10.2 % (0-10); NRBC Flagged by Analyzer 0 % (0-5); Neutrophil # 6.24 X10^3/uL (2.7-7.7); Neutrophil % 72.9 % (47-70); Platelet Count 339 K/mm3 (150-450); RBC Distribution Width CV 14.8 % (11.6-14.6); RBC Distribution Width SD 51.1 fl (35.1-43.9); Red Blood Count 3.52 M/mm3 (4.2-5.4); White Blood Count 8.6 K/mm3 (4.4-11.0)
[2022-06-09 12:12] LABS: Erythrocyte Sedimentation Rate 57 mm/hr (0-30)
[2022-06-09 12:20] LABS: Anion Gap 7 (5-15); BUN 13 mg/dL (7-18); Calcium,Total 8.6 mg/dL (8.5-10.1); Chloride 101 mmol/L (98-107); Creatinine, Serum 0.86 mg/dL (0.55-1.02); EST Glomerular Filtration Rate 67 mL/min (>60); Est Glom Filt Rate - Afr Amer 81 mL/min (>60); Estimated Creatinine Clearance 49.89 ml/min; Glucose 106 mg/dL (74-106); Sodium Level 135 mmol/L (136-145)
--- NOTE | 2022-06-09 13:17 | PCM.CONS.GEN ---
Assessment & Plan Assessment/Plan (1) Cellulitis of right leg: PLAN: It is improved. Patient's last day of antibiotics is today. Given the improvement but without complete resolution I have recommended 5 more days of levofloxacin 750 mg daily. Explained to the patient that if she notices increased swelling of her right lower extremity or increased redness of her leg to let him know returning to the emergency room. She and her are both agreeable with that. I did strongly recommend that she follow-up with her primary care doctor. Patient stated that she has not had time to make an appointment since being discharged. I told her that its important for her to follow-up to ensure that that is continuing to improve. Patient advised also to keep her right leg elevated. I reviewed testing that the patient had including a duplex that did not show any blood clots and an MRI that did not show any evidence of osteomyelitis. I do not feel there is any additional need for any further imaging at this time. PLAN: Plan Discussed with Dr. Trevino. Patient will be discharged from the emergency room and will receive prescription for levofloxacin. HPI Consult Data Date of Consult: 06/09/22 HPI Narrative Reason for Consultation: Right lower extremity edema and redness HPI Narrative: LANE CHERRY, is a 81 F who presents with right lower extremity edema and redness. Patient was just discharged with right lower extremity cellulitis secondary to MSSA and strep. Patient was discharged with levofloxacin which patient has been taking. Patient states that the redness on her leg is actually improved but just not any better and she was concerned as today is her last day of antibiotics. Patient's right leg is swollen. Previously it was the size of her left which is not edematous. Patient had someone put an Jori wrap on her leg that caused some numbness in her forefoot which is since resolved since removing the Jori wrap. [facility] Medical History Cellulitis of right leg HLD (hyperlipidemia) HTN (hypertension) Home Medications atorvastatin 20 mg tablet 20 mg PO QHS 12/15/15 [History Last Taken 02/17/19] calcium carbonate 500 mg-vitamin D3 10 mcg (400 unit) chewable tablet 1 tab PO DAILY 12/15/15 [History Last Taken 02/16/19] cholecalciferol (vitamin D3) 25 mcg (1,000 unit) tablet 2,000 unit PO DAILY 12/15/15 [History Last Taken 02/16/19] multivitamin 1 ea PO DAILY 12/15/15 [History Last Taken 02/16/19] paroxetine HCl 20 mg tablet 20 mg PO DAILY 12/15/15 [History Last Taken 02/16/19] amlodipine 2.5 mg tablet 2.5 mg PO DAILY 02/17/19 [History Last Taken 02/17/19] aspirin 325 mg tablet 81 mg PO DAILY 02/17/19 [History Last Taken 02/17/19] epinephrine 0.3 mg/0.3 mL injection, auto-injector 0.3 mg IM Q10M PRN Anaphylaxis 05/09/21 [History Last Taken Unknown] ferrous sulfate 325 mg (65 mg iron) tablet (iron) 325 mg PO DAILY 05/09/21 [History Last Taken Unknown] fluticasone propionate 50 mcg/actuation nasal spray,suspension 2 spray intranasal DAILY 05/09/21 [History Last Taken Unknown] folic acid 1 mg tablet 2 mg PO DAILY 05/09/21 [History Last Taken Unknown] methotrexate 2.5 mg QWEEK 05/09/21 [History Last Taken Unknown] omeprazole 20 mg capsule,delayed release 20 mg PO DAILY 10/09/21 [History Last Taken Unknown] acetaminophen 325 mg tablet (Tylenol) 650 mg PO Q6H PRN PRN Pain Score 1-10/Temp > 100.7 F #0 tabs 06/04/22 [Rx Last Taken Unknown] levofloxacin 750 mg tablet 750 mg PO DAILY #5 tabs 06/04/22 [Rx Last Taken Unknown] levofloxacin 750 mg tablet 750 mg PO DAILY #5 tabs 06/09/22 [Rx Last Taken Unknown] Allergy/AdvReac Type Severity Reaction Status Date / Time bee venom protein (honey bee) Allergy Anaphylaxis Verified 06/09/22 10:58 Penicillins AdvReac Hives Verified 06/09/22 10:58 Family History Father Heart disease Surgical History History of bilateral knee replacement History of hysterectomy History of hysterectomy Hx of appendectomy Social History household members: none Smoking Status: Former smoker Tobacco: How many years used: 20 how long ago did patient quit smokin, 1ppd second hand exposure: Yes ROS ROS Narrative All review of systems were negative except as mentioned above in the history of present illness and the other review of systems. Physical Exam Const alert and no apparent distress HEENT normocephalic Extremity Extremity Narrative: 2+ edema of the right lower extremity. Left lower extremities and a compression sock. With no lower extremity edema. Does have erythema of the right lower extremities which is within the previous line of demarcation and actually is improved from the very traumatic erythema that she had previously. Psych affect normal Lab / Micro Data Result Diagrams: 06/09/22 11:50 06/09/22 11:50 Labs: Laboratory Results - last 24 hr 06/09/22 11:50: WBC 8.6, RBC 3.52 L, Hgb 10.6 L, Hct 33.4 L, MCV 94.9, MCH 30.1, MCHC 31.7 L, RDW Std Deviation 51.1 H, RDW Coeff of Danny 14.8 H, Plt Count 339, MPV 10.0, Immature Gran % (Auto) 2.200 H, Neut % (Auto) 72.9 H, Lymph % (Auto) 10.1 L, [place] % (Auto) 10.2 H, Eos % (Auto) 4.1, Baso % (Auto) 0.5, Absolute Neuts (auto) 6.2, Absolute Lymphs (auto) 0.86, Nucleated RBC % 0, ESR 57 H 06/09/22 11:50: Sodium 135 L, Potassium 4.0, Chloride 101, Carbon Dioxide 27.0, Anion Gap 7, BUN 13, Creatinine 0.86, Estim Creat Clear Calc 49.89, Est GFR (MDRD) Af Amer 81, Est GFR (MDRD) Non-Af 67, BUN/Creatinine Ratio 15.0, Glucose 106, Calcium 8.6, C-React Prot Ext Range 26.80 H Radiology Impression Foot X-Ray 06/09/22 11:24 IMPRESSION: 1. No visualized acute fracture or displaced bony fragment. Moderate to severe narrowing of the IP joints of the second through fifth digits. 2. No visualized cortical erosion or bony destruction or soft tissue gas on the current exam. 3. Moderate soft tissue swelling is present over the dorsum of the foot Electronically Signed: Wilbert Pagan MD at 12:51 EDT , Charges/Coding Visit Charges Office Visits / Consults: 20943 OP Consult L2
[2022-06-09 13:19] VITALS: BP 125/78; PULSE 78; RESP 16; TEMP 37.2; O2SAT 99
--- NOTE | 2022-06-09 15:32 | EX.ED.DYSGE1 ---
HPI History of Present Illness Chief Complaint: Cellulitis Informant: patient Onset/Context/Timing Onset: Days Context: Gradual Onset Timing: Continuous Location: RLE Associated Symptoms Associated Symptoms: swelling, pain, redness Narrative Narrative: Patient was recently admitted to the hospital for cellulitis of the right leg. She had an extensive work-up including ultrasound, labs, blood cultures. She was treated with IV antibiotics and found to have MSSA. She was switched to Levaquin at discharge. She is on the last dose of Levaquin today. She reports that she has continued redness, swelling, and pain despite taking her antibiotics. No new or different symptoms. [facility] Medical History Cellulitis of right leg HLD (hyperlipidemia) HTN (hypertension) Home Medications atorvastatin 20 mg tablet 20 mg PO QHS 12/15/15 [History Last Taken 02/17/19] calcium carbonate 500 mg-vitamin D3 10 mcg (400 unit) chewable tablet 1 tab PO DAILY 12/15/15 [History Last Taken 02/16/19] cholecalciferol (vitamin D3) 25 mcg (1,000 unit) tablet 2,000 unit PO DAILY 12/15/15 [History Last Taken 02/16/19] multivitamin 1 ea PO DAILY 12/15/15 [History Last Taken 02/16/19] paroxetine HCl 20 mg tablet 20 mg PO DAILY 12/15/15 [History Last Taken 02/16/19] amlodipine 2.5 mg tablet 2.5 mg PO DAILY 02/17/19 [History Last Taken 02/17/19] aspirin 325 mg tablet 81 mg PO DAILY 02/17/19 [History Last Taken 02/17/19] epinephrine 0.3 mg/0.3 mL injection, auto-injector 0.3 mg IM Q10M PRN Anaphylaxis 05/09/21 [History Last Taken Unknown] ferrous sulfate 325 mg (65 mg iron) tablet (iron) 325 mg PO DAILY 05/09/21 [History Last Taken Unknown] fluticasone propionate 50 mcg/actuation nasal spray,suspension 2 spray intranasal DAILY 05/09/21 [History Last Taken Unknown] folic acid 1 mg tablet 2 mg PO DAILY 05/09/21 [History Last Taken Unknown] methotrexate 2.5 mg QWEEK 05/09/21 [History Last Taken Unknown] omeprazole 20 mg capsule,delayed release 20 mg PO DAILY 10/09/21 [History Last Taken Unknown] acetaminophen 325 mg tablet (Tylenol) 650 mg PO Q6H PRN PRN Pain Score 1-10/Temp > 100.7 F #0 tabs 06/04/22 [Rx Last Taken Unknown] levofloxacin 750 mg tablet 750 mg PO DAILY #5 tabs 06/04/22 [Rx Last Taken Unknown] levofloxacin 750 mg tablet 750 mg PO DAILY #5 tabs 06/09/22 [Rx Last Taken Unknown] Allergy/AdvReac Type Severity Reaction Status Date / Time bee venom protein (honey bee) Allergy Anaphylaxis Verified 06/09/22 10:58 Penicillins AdvReac Hives Verified 06/09/22 10:58 Family History Father Heart disease Surgical History History of bilateral knee replacement History of hysterectomy History of hysterectomy Hx of appendectomy Social History household members: none Smoking Status: Former smoker Tobacco: How many years used: 20 how long ago did patient quit smokin, 1ppd second hand exposure: Yes ROS ROS ED Constitutional Constitutional ED: Denies chills or fever(s) Eyes Eyes: Denies blurry vision ENT ENT ED: Denies ear pain Cardiovascular Cardiovascular: Denies chest pain Respiratory/Chest Respiratory/Chest: Denies cough Gastrointestinal Gastrointestinal: Denies abdominal pain Genitourinary Genitourinary ED: Denies dysuria Musculoskeletal Musculoskeletal: Denies arthralgias Integumentary Reports rash; Denies abscess or Abrasions Neurologic Neurologic: Denies headache(s), paresthesias or weakness Psychiatric Psychiatric: Denies anxiety Endocrine Endocrinology: Denies cold intolerance Hematologic/Lymphatic Hematologic/Lymphatic: Denies easy bruising Allergic/Immunologic Allergic/Immunologic ED: Denies mouth swelling EXAM Physical Exam Const Vital Signs: 06/09/22 10:33 06/09/22 10:53 06/09/22 10:53 Temperature 98.2 F 97.2 F L 97.2 F L Temperature Source Temporal Temporal Temporal Pulse Rate 84 75 75 Respiratory Rate 14 18 18 Blood Pressure 157/59 H 120/45 L 120/45 L Blood Pressure Mean 91 70 70 Pulse Ox 98 97 97 Oxygen Delivery Method Room Air Room Air Room Air 06/09/22 13:19 Temperature 98.9 F Temperature Source Temporal Pulse Rate 78 Respiratory Rate 16 Blood Pressure 125/78 H Blood Pressure Mean 93 Pulse Ox 99 Oxygen Delivery Method Room Air Positive well nourished and well developed General Appearance ED: well developed HEENT Reports moist mucous membranes Eyes EOMs intact bilaterally Resp normal respiratory effort and clear to auscultation bilaterally Cardio regular rate and regular rhythm GI normal to inspection, nondistended, normoactive bowel sounds Extremity General Extremety ED: Yes edema and tenderness General Extremity: edema Neuro oriented x3 and no sensory deficits noted Motor Exam: strength 5/5 throughout Psych mental status grossly normal Skin Skin Narrative: Right lower extremity is edematous and erythematous below the knee. No skin peeling. No necrosis. There is a superficial ulceration at the base of the first MTP joint MDM MDM MDM Narrative Medical decision making narrative: Labs were all reassuring. X-rays of the foot showed no fracture. Nothing to suggest osteomyelitis. These were interpreted by the radiologist and myself. I did contact the hospitalist on-call who saw the patient during her recent admission. [place] that the redness looked much better. The redness is receding from the marked line. Will continue the patient on Levaquin for 5 more days and have her follow-up with PCP. 1. Right lower extremity cellulitis Lab Data Attestation: I reviewed the patient's lab results. Labs: Laboratory Results - last 24 hr 06/09/22 06/09/22 11:50 11:50 WBC 8.6 RBC 3.52 L Hgb 10.6 L Hct 33.4 L MCV 94.9 MCH 30.1 MCHC 31.7 L RDW Std Deviation 51.1 H RDW Coeff of Danny 14.8 H Plt Count 339 MPV 10.0 Immature Gran % (Auto) 2.200 H Neut % (Auto) 72.9 H Lymph % (Auto) 10.1 L [place] % (Auto) 10.2 H Eos % (Auto) 4.1 Baso % (Auto) 0.5 Absolute Neuts (auto) 6.2 Absolute Lymphs (auto) 0.86 Nucleated RBC % 0 ESR 57 H Sodium 135 L Potassium 4.0 Chloride 101 Carbon Dioxide 27.0 Anion Gap 7 BUN 13 Creatinine 0.86 Estim Creat Clear Calc 49.89 Est GFR (MDRD) Af Amer 81 Est GFR (MDRD) Non-Af 67 BUN/Creatinine Ratio 15.0 Glucose 106 Calcium 8.6 C-React Prot Ext Range 26.80 H Radiography Diagnostic Testing: Clinical Impression(s) from Imaging Studies Foot X-Ray 06/09/22 11:24 IMPRESSION: 1. No visualized acute fracture or displaced bony fragment. Moderate to severe narrowing of the IP joints of the second through fifth digits. 2. No visualized cortical erosion or bony destruction or soft tissue gas on the current exam. 3. Moderate soft tissue swelling is present over the dorsum of the foot Electronically Signed: Wilbert Pagan MD at 12:51 EDT , Discharge Plan Triage Chief Complaint: Cellulitis ED Provider: Christopher Trevino Dx/Rx/DC Orders Clinical Impression: Cellulitis of right leg Instructions: Cellulitis Dc Prescriptions: New levofloxacin 750 mg tablet 750 mg PO DAILY Qty: 5 0RF No Action omeprazole 20 mg capsule,delayed release(DR/EC) 20 mg PO DAILY multivitamin 1 EACH tablet 1 ea PO DAILY Label Comments: supplement atorvastatin 20 MG tablet 20 mg PO QHS Label Comments: lower cholesterol paroxetine HCl 20 MG tablet 20 mg PO DAILY Label Comments: mood enhancer calcium carbonate-vitamin D3 1 EACH tablet,chewable 1 tab PO DAILY Label Comments: supplement cholecalciferol (vitamin D3) 1,000 UNIT tablet 2,000 unit PO DAILY Label Comments: supplement amlodipine 2.5 MG tablet 2.5 mg PO DAILY aspirin 325 MG tablet 81 mg PO DAILY ferrous sulfate [iron] 325 mg (65 mg iron) Tablet 325 mg PO DAILY folic acid 1 mg Tablet 2 mg PO DAILY epinephrine 0.3 mg/0.3 mL Auto-Injector 0.3 mg IM Q10M PRN (Reason: Anaphylaxis) fluticasone propionate 50 mcg/actuation [place],Suspension 2 spray INTRANASAL DAILY methotrexate 2.5 mg QWEEK acetaminophen [Tylenol] 325 mg Tablet 650 mg PO Q6H PRN PRN (Reason: Pain Score 1-10/Temp > 100.7 F) Qty: 0 0RF levofloxacin 750 mg tablet 750 mg PO DAILY Qty: 5 0RF Primary Care Provider: Angelika Monsivais Referrals: Angelika Monsivais MD [Primary Care Provider] - Disposition Disposition: Home, Self Care Discharge Date/Time: 06/09/22 13:31
== END 2022-06-09 13:31 | disposition home or self-care (01) ==
PROVIDERS: Emergency Provider Emergency Medicine; PCP Internal Medicine; Visit Provider Emergency Medicine
DX: L03.115 Cellulitis of right lower limb (principal); R60.0 Localized edema; I10 Essential (primary) hypertension; E78.5 Hyperlipidemia, unspecified; B95.61 Methicillin susceptible Staphylococcus aureus infection as the cause of diseases classified elsewhere; Z79.899 Other long term (current) drug therapy; Z79.82 Long term (current) use of aspirin; Z87.891 Personal history of nicotine dependence
CPT/HCPCS: 73630; 80048; 85025; 85652; 86140; 87040; 99284; A4216

== ENCOUNTER → 2022-08-14 | Outpatient (CLI) | payer MEDICARE, SELFPAY ==
[2022-08-14 17:42] LABS: Absolute Lymphocyte Count 1.62 X10^3/uL (0.83-4.51); Absolute Neutrophil Count 4.5 X10^3/uL (2.0-7.7); Basophil# 0.02 X10^3/uL; Basophil% 0.3 % (0-1); Eosinophil# 0.33 X10^3/uL; Eosinophils% 4.7 % (0-5); Hematocrit 32.7 % (37-47); Hemoglobin 10.5 g/dL (12.0-15.0); Lymphocyte # 1.62 X10^3/ul (0.83-4.51); Mean Corp Hgb Conc 32.1 g/dL (32-36); Mean Corpuscular Hgb 30.3 pg (27.0-32.0); Mean Corpuscular Volume 94.5 fL (81-99); Mean Platelet Vol. 11.3 fl (6.2-12.0); Monocyte# 0.57 X10^3/uL; Monocyte% 8.1 % (0-10); NRBC Flagged by Analyzer 0 % (0-5); Neutrophil # 4.47 X10^3/uL (2.7-7.7); Neutrophil % 63.6 % (47-70); Platelet Count 218 K/mm3 (150-450); RBC Distribution Width CV 15.5 % (11.6-14.6); RBC Distribution Width SD 52.8 fl (35.1-43.9); Red Blood Count 3.46 M/mm3 (4.2-5.4)
[2022-08-14 18:15] LABS: ALB/GLOB Ratio 0.9 RATIO (0.9-2.4); AST(SGOT) 22 U/L (15-37); Alanine Aminotransfer ALT/SGPT 27 U/L (13-56); Albumin, Serum 3.8 g/dL (3.2-5.0); Alkaline Phosphatase 85 U/L (45-117); Anion Gap 6 (5-15); BUN 18 mg/dL (7-18); BUN/Creat Ratio 20.4 RATIO (10-20); Calcium,Total 9.4 mg/dL (8.5-10.1); Chloride 104 mmol/L (98-107); Creatinine, Serum 0.88 mg/dL (0.55-1.02); EST Glomerular Filtration Rate 65 mL/min (>60); Est Glom Filt Rate - Afr Amer 79 mL/min (>60); Globulin 4.1 g/dL (2.2-4.2); Glucose 123 mg/dL (74-106); Protein, Total 7.9 g/dL (6.4-8.2); Sodium Level 137 mmol/L (136-145)
== END | disposition home or self-care (01) ==
LOC: MTLAB 15:30
PROVIDERS: PCP Internal Medicine; Referring Provider Internal Medicine Rheumatology; Visit Provider Internal Medicine Rheumatology
DX: M06.011 Rheumatoid arthritis without rheumatoid factor, right shoulder (principal); M18.11 Unilateral primary osteoarthritis of first carpometacarpal joint, right hand; M17.0 Bilateral primary osteoarthritis of knee; I10 Essential (primary) hypertension; E78.5 Hyperlipidemia, unspecified; Z79.899 Other long term (current) drug therapy
CPT/HCPCS: 36415; 80053; 85025

== ENCOUNTER → 2022-10-14 | Outpatient (CLI) | payer MEDICARE, SELFPAY ==
--- NOTE | 2022-10-14 18:35 | STRESSREP ---
Stress Test Report Pharmacologic myocardial perfusion stress test. 82-year-old lady with a history of coronary artery disease and chest burning Resting EKG demonstrates sinus bradycardia with a rate of 56 bpm. Resting blood pressure is 132/80 mmHg. 0.4 mg of regadenoson was infused per usual protocol followed by rapid intravenous saline flush injection. Continuous EKG monitoring was performed. The maximum heart rate was 82 bpm which was 59% of max impacted heart rate the maximum workload was 1 metabolic equivalent. At rest there were no ST or T wave changes noted to suggest ischemia and at peak infusion nonspecific ST changes were noted with did not meet the criteria for ischemia. Occasional premature ventricular complexes noted. No clinical angina is noted. The final blood pressure was 130/74 mmHg. Myocardial perfusion protocol. 11.7 mCi of technetium 99m sestamibi was injected at rest. 0.4 mg of regadenoson was infused per usual protocol. At peak infusion 35 mCi of technetium 99m sestamibi was injected stress images were obtained stress and rest images were reconstructed and compared in the short axis vertical long and horizontal long axis. Gated images were also obtained. Perfusion SPECT analysis: Review of the stress images demonstrate normal uptake of tracer noted in all areas of the myocardium. The resting images similar demonstrated normal uptake of tracer noted in all areas of the myocardium. No areas of reversibility are noted to suggest ischemia and no previous infarct is noted. Gated SPECT analysis: The gated ejection fraction is 82%. Conclusion: Normal pharmacologic myocardial perfusion stress test. Preserved ejection fraction.
== END | disposition home or self-care (01) ==
PROVIDERS: PCP Internal Medicine; Visit Provider Internal Medicine Cardiovascular Disease
DX: I25.10 Atherosclerotic heart disease of native coronary artery without angina pectoris (principal); R77.8 Other specified abnormalities of plasma proteins
CPT/HCPCS: 78452; 93017; A9500; A4216; J2785

== ENCOUNTER → 2022-11-07 | Outpatient (CLI) | payer MEDICARE, SELFPAY ==
[2022-11-07 15:10] LABS: Absolute Lymphocyte Count 1.37 X10^3/uL (0.83-4.51); Absolute Neutrophil Count 3.6 X10^3/uL (2.0-7.7); Basophil# 0.03 X10^3/uL; Basophil% 0.5 % (0-1); Eosinophil# 0.24 X10^3/uL; Eosinophils% 4.2 % (0-5); Hematocrit 38.7 % (37-47); Hemoglobin 12.6 g/dL (12.0-15.0); Lymphocyte # 1.37 X10^3/ul (0.83-4.51); Lymphocyte % 23.9 % (19-41); Mean Corp Hgb Conc 32.6 g/dL (32-36); Mean Corpuscular Volume 95.3 fL (81-99); Mean Platelet Vol. 11.5 fl (6.2-12.0); Monocyte% 8.7 % (0-10); NRBC Flagged by Analyzer 0 % (0-5); Neutrophil # 3.58 X10^3/uL (2.7-7.7); Neutrophil % 62.4 % (47-70); Platelet Count 182 K/mm3 (150-450); RBC Distribution Width CV 13.4 % (11.6-14.6); Red Blood Count 4.06 M/mm3 (4.2-5.4); White Blood Count 5.7 K/mm3 (4.4-11.0)
[2022-11-07 15:17] LABS: ALB/GLOB Ratio 0.8 RATIO (0.9-2.4); AST(SGOT) 23 U/L (15-37); Alanine Aminotransfer ALT/SGPT 24 U/L (13-56); Albumin, Serum 3.7 g/dL (3.2-5.0); Alkaline Phosphatase 90 U/L (45-117); Anion Gap 10 (5-15); BUN 20 mg/dL (7-18); BUN/Creat Ratio 22.1 RATIO (10-20); Calcium,Total 9.6 mg/dL (8.5-10.1); Chloride 100 mmol/L (98-107); EST Glomerular Filtration Rate 63 mL/min (>60); Est Glom Filt Rate - Afr Amer 77 mL/min (>60); Globulin 4.6 g/dL (2.2-4.2); Glucose 68 mg/dL (74-106); Potassium 4.5 mmol/L (3.5-5.1); Protein, Total 8.3 g/dL (6.4-8.2); Sodium Level 137 mmol/L (136-145)
== END | disposition home or self-care (01) ==
LOC: MTLAB 12:38
PROVIDERS: PCP Internal Medicine; Referring Provider Internal Medicine Rheumatology; Visit Provider Internal Medicine Rheumatology
DX: M06.011 Rheumatoid arthritis without rheumatoid factor, right shoulder (principal); Z79.899 Other long term (current) drug therapy
CPT/HCPCS: 36415; 80053; 85025

== ENCOUNTER → 2023-02-06 | Outpatient (CLI) | payer MEDICARE, SELFPAY ==
[2023-02-06 17:38] LABS: Absolute Lymphocyte Count 1.56 X10^3/uL (0.83-4.51); Absolute Neutrophil Count 4.1 X10^3/uL (2.0-7.7); Basophil# 0.04 X10^3/uL; Basophil% 0.6 % (0-1); Eosinophils% 4.7 % (0-5); Hemoglobin 11.6 g/dL (12.0-15.0); Lymphocyte # 1.56 X10^3/ul (0.83-4.51); Lymphocyte % 24.2 % (19-41); Mean Corp Hgb Conc 32.2 g/dL (32-36); Mean Corpuscular Hgb 31.3 pg (27.0-32.0); Mean Platelet Vol. 10.8 fl (6.2-12.0); Monocyte# 0.46 X10^3/uL; Monocyte% 7.1 % (0-10); NRBC Flagged by Analyzer 0 % (0-5); Neutrophil # 4.05 X10^3/uL (2.7-7.7); Neutrophil % 62.9 % (47-70); Platelet Count 230 K/mm3 (150-450); RBC Distribution Width CV 14.1 % (11.6-14.6); RBC Distribution Width SD 49.1 fl (35.1-43.9); Red Blood Count 3.71 M/mm3 (4.2-5.4); White Blood Count 6.4 K/mm3 (4.4-11.0)
[2023-02-06 18:10] LABS: ALB/GLOB Ratio 0.9 RATIO (0.9-2.4); AST(SGOT) 27 U/L (15-37); Alanine Aminotransfer ALT/SGPT 37 U/L (13-56); Albumin, Serum 3.7 g/dL (3.2-5.0); Alkaline Phosphatase 89 U/L (45-117); Anion Gap 9 (5-15); BUN 23 mg/dL (7-18); BUN/Creat Ratio 24.4 RATIO (10-20); Chloride 104 mmol/L (98-107); Creatinine, Serum 0.94 mg/dL (0.55-1.02); EST Glomerular Filtration Rate 60 mL/min (>60); Est Glom Filt Rate - Afr Amer 73 mL/min (>60); Globulin 4.1 g/dL (2.2-4.2); Glucose 143 mg/dL (74-106); Potassium 3.9 mmol/L (3.5-5.1); Protein, Total 7.8 g/dL (6.4-8.2); Sodium Level 139 mmol/L (136-145)
== END | disposition home or self-care (01) ==
LOC: MTLAB 15:06
PROVIDERS: PCP Internal Medicine; Referring Provider Internal Medicine Rheumatology; Visit Provider Internal Medicine Rheumatology
DX: M06.031 Rheumatoid arthritis without rheumatoid factor, right wrist (principal); M18.11 Unilateral primary osteoarthritis of first carpometacarpal joint, right hand; M17.0 Bilateral primary osteoarthritis of knee; M47.897 Other spondylosis, lumbosacral region; M47.892 Other spondylosis, cervical region; M72.0 Palmar fascial fibromatosis [Dupuytren]; I10 Essential (primary) hypertension; E78.5 Hyperlipidemia, unspecified; I83.90 Asymptomatic varicose veins of unspecified lower extremity; F32.A Depression, unspecified; Z79.899 Other long term (current) drug therapy
CPT/HCPCS: 36415; 80053; 85025

== ENCOUNTER → 2023-07-24 | Outpatient (CLI) | payer MEDICARE, SELFPAY ==
--- NOTE | 2023-07-24 17:00 | CT_ITS ---
EXAM: CT RIGHT UPPER EXTREMITY WITHOUT INTRAVENOUS CONTRAST, SHOULDER CLINICAL INDICATION: OSTEOARTHRITIS TECHNIQUE: Helically acquired images were obtained of the right shoulder without intravenous contrast. 2-D reformats were performed by the technologist. CTDIvol = ( 24.54 ) mGy, DLP = ( 548.62 ) mGycm This CT exam was performed using one or more of the following dose reduction techniques: automated exposure control, adjustment of the mA and/or kV according to patient size, and/or use of iterative reconstruction technique. COMPARISON: No relevant prior studies available. FINDINGS: BONES/JOINTS: [id number] hypertrophic degenerative changes of the acromioclavicular joint. Diffuse osteopenia. Degenerative changes of the spine at multiple levels. Old healed fracture of the surgical neck of the right proximal humerus. No acute or healing fracture or malalignment. No unusual lytic or sclerotic lesions of bone. SOFT TISSUES: Unremarkable. No soft tissue swelling or gas. No radiopaque foreign body. LUNG APICES: Peripheral fibrotic changes. CT/Extremity Upper without Contra IMPRESSION: 1. Old healed fracture of the surgical neck of the right proximal humerus. 2. [id number] hypertrophic degenerative changes of the acromioclavicular joint. 3. No acute or healing fracture or malalignment. Electronically Signed: Aubrey Ivey MD at 21:25 EDT ,
== END | disposition home or self-care (01) ==
LOC: CT 16:52
PROVIDERS: PCP Internal Medicine; Referring Provider Student in an Organized Health Care Education/Training Program; Visit Provider Student in an Organized Health Care Education/Training Program
DX: S42.221K 2-part displaced fracture of surgical neck of right humerus, subsequent encounter for fracture with nonunion (principal); M19.011 Primary osteoarthritis, right shoulder
CPT/HCPCS: 73200

== ENCOUNTER 2024-01-11 13:31 | Inpatient (IN) | payer MEDICARE, SELFPAY ==
[2024-01-11 13:48] VITALS: BP 123/49; PULSE 41; RESP 16; TEMP 35.8; O2SAT 97; BMI 29.0
[2024-01-11] MEDS: dexAMETHasone 4 MG Tablet 2 MG PO (16:36)
[2024-01-11 19:58] VITALS: BP 118/46; PULSE 46; RESP 17; TEMP 37; O2SAT 97
[2024-01-11 20:30] VITALS: PULSE 46; RESP 17; O2SAT 97
[2024-01-11] MEDS: Senna/Docusate Sodium 1 Tablet PO (21:12)
[2024-01-11] MEDS: Atorvastatin Calcium 20 MG Tablet PO (21:12)
[2024-01-11] MEDS: Miconazole Nitrate 43 GM Bottle 1 APPLIC TOPICAL (21:13)
[2024-01-11] MEDS: NYSTATIN 500,000 UNIT/5 ML UDC 500000 UNIT PO (21:13)
[2024-01-11] MEDS: Paroxetine 20 MG Tablet PO (21:15)
[2024-01-11] MEDS: Acetaminophen 500 MG Tablet 1000 MG PO (21:17)
[2024-01-11] MEDS: MELATONIN 3 MG TABLET PO (21:17)
[2024-01-12 05:43] LABS: Hematocrit 35.1 % (37-47); Mean Corp Hgb Conc 34.2 g/dL (32-36); Mean Corpuscular Volume 87.8 fL (81-99); Platelet Count 162 K/mm3 (150-450); RBC Distribution Width CV 14.4 % (11.6-14.6); RBC Distribution Width SD 45.3 fl (35.1-43.9); White Blood Count 13.2 K/mm3 (4.4-11.0)
[2024-01-12 06:20] LABS: ALB/GLOB Ratio 0.8 RATIO (0.9-2.4); AST(SGOT) 20 U/L (15-37); Alanine Aminotransfer ALT/SGPT 32 U/L (13-56); Albumin, Serum 2.7 g/dL (3.2-5.0); Alkaline Phosphatase 52 U/L (45-117); Anion Gap 7 (5-15); BUN 34 mg/dL (7-18); BUN/Creat Ratio 41.4 RATIO (10-20); Calcium,Total 8.2 mg/dL (8.5-10.1); Chloride 97 mmol/L (98-107); Creatinine, Serum 0.82 mg/dL (0.55-1.02); EST Glomerular Filtration Rate 71 mL/min (>60); Est Glom Filt Rate - Afr Amer 85 mL/min (>60); Estimated Creatinine Clearance 57.97 ml/min; Globulin 3.4 g/dL (2.2-4.2); Glucose 103 mg/dL (74-106); Phosphorus 3.9 mg/dL (2.5-4.9); Potassium 4.3 mmol/L (3.5-5.1); Protein, Total 6.1 g/dL (6.4-8.2); Sodium Level 129 mmol/L (136-145)
--- NOTE | 2024-01-12 06:36 | NURSING ---
pt was bladder scanned this am and was found to have the value of 720cc pt was straight cathed for 800cc of cloudy strong smelling urine. urine was sent for a complete ua. pt tolerated the procedure well .
[2024-01-12] MEDS: Senna/Docusate Sodium 1 Tablet PO ×2 (07:57→21:00)
[2024-01-12] MEDS: Cholecalciferol (VIT D3) 25 MCG TABLET (1,000 UNITS) 50 MCG PO (07:57)
[2024-01-12] MEDS: dexAMETHasone 4 MG Tablet 2 MG PO ×2 (07:58→17:22)
[2024-01-12] MEDS: amLODIPine 2.5 MG Tablet PO (07:58)
[2024-01-12] MEDS: Multivitamins,Therapeutic Tablet 1 TABLET PO (07:58)
[2024-01-12] MEDS: Aspirin E.C. 81 MG Tablet PO (07:58)
[2024-01-12] MEDS: Polyethylene Glycol 3350 17 GM PACKET PO (07:58)
[2024-01-12] MEDS: Pantoprazole Sodium 20 MG Tablet PO (07:58)
[2024-01-12] MEDS: Acetaminophen 500 MG Tablet 1000 MG PO ×2 (08:00→21:51)
[2024-01-12 08:14] VITALS: BP 134/59; PULSE 40; RESP 15; TEMP 36.1; O2SAT 96
--- NOTE | 2024-01-12 08:17 | PCM.HP.STD ---
[facility] - General General Date of Admission: 01/11/24 Date of Service: 01/12/24 Chief Complaint: Debility due to fall with multiple traumatic injuries. HPI Narrative LANE CHERRY, is a 83 YO F with a PMH of HTN, GERD, hiatal hernia, hyperlipidemia, CHARLENE (on CPAP), peripheral neuropathy, RA (not on medication), vitamin D deficiency, osteoarthritis and anxiety/depression who presented to [facility] on 12/27/23 after falling forward and striking her face when stepping off a curb. CT of the head and neck was negative for acute pathology but, she had weakness in the RUE and RLE so she was transferred to [facility] in [place]. MRI of the cervical spine at [place] showed multilevel degenerative changes with severe canal stenosis and cord deformity at C5-C6 and moderate to severe canal stenosis at C6-C7. There was prevertebral edema from C4-T3 and a probable acute cord contusion at C6. There were varying degrees of neuroforaminal stenosis, most severe on the left at C4-C5. The thoracic spine showed fluid in the L2-L3 disc space with surrounding edema and adjacent soft tissue edema. Lumbar spine MRI showed right subarticular inferiorly migrated extrusion at L2-L3 which moderately narrows the right lateral recess. There was fluid signal in the L2-L3 disc with surrounding marrow edema and adjacent edema in the right psoas muscle and surrounding soft tissues. MRI of the thoracic spine showed fluid in the L2-3 disc space with surrounding edema and adjacent soft tissue edema. There was mild edema in the prevertebral space extending from the cervical spine through T3. Additional imaging showed a R sided LeFort I facial fracture, Left hand DISI deformity and a possible distal R ulna fracture. She was seen by ENT in the emergency department and they did not recommend any further imaging or surgery. She was started on steroids and neurosurgery/orthopedics were consulted. She was taken to the operating room on 12/31/2023 for C5-C6 laminectomy however, during prone positioning for surgery neuro signals were lost and therefore surgery was aborted and canceled and she was placed in the supine position again. The neuro signals returned when she was supine. She had significant bradycardia in the 35-40 range and she was seen by cardiology. An ECHO was done and showed an ejection fraction of 60 to 65% with no wall motion abnormalities. She had normal diastolic function. Right ventricular systolic pressure was estimated at 24 mmHg. There was mild pulmonic valve regurgitation and trivial tricuspid regurgitation. Both atria were of normal size. Cardiology recommended a 2-week event monitor at discharge from [facility]. This will be mailed to her house and when the family brings the monitor in we will apply. On 01/09/2024 cardiology endorsed that she could be discharged to acute rehab. On physical examination she was able to lift her left leg off the bed without difficulty. Left upper extremity hand grasp, triceps, biceps were strong. She is still weak in the right upper extremity and can barely grasp with her right hand but she is able to move the third fourth and fifth digits. The right leg was weak but she had some knee flexion. She had barely any dorsiflexion on the right and had weak plantarflexion. She complained of numbness in her bilateral hands, right greater than left. Lane was transferred to the acute inpt rehab unit at [facility] on 01/11/24 for 3 hours of therapy daily to restore function/independence at or near her level prior to the fall. Afebrile Blood pressure has ranged from 118/46 to 134/59 since admission to rehab. The heart rate has ranged from 41-46. She is maintaining appropriate oxygen saturation on room air. She is eating 75 to 100% of her meals. She is incontinent of urine and stool. Postvoid residual this AM was 720 and she had a straight cath done. All lab drawn this morning was personally reviewed. White blood cell count is mildly elevated at 13.2 but, she has been on Decadron. Hemoglobin is 12 with normochromic normocytic indices and platelets are within normal limits. Sodium is low at 129 and the potassium is 4.3. BUN is elevated at 34 and the creatinine is 0.82 which is within her baseline. The BUN/creatinine ratio is elevated at 41.4. Calcium corrected for hypoalbuminemia is within normal limits. LFTs are unremarkable. Magnesium and phosphorus are both normal. Slept well last night. Appetite is good. States pain is adequately controlled. Had a BM this AM. Can not feel when she has to have a BM or urinate. Has had neuropathy in both feet since she was in her early 30's. No dx ever made for the reason for the neuropathy. Does not use a device to ambulate. Lives in a one story home with no basement. She is R hand dominant. Had urge incontinence of urine prior to fall. No fecal incontinence prior to the fall. Denies change in vision. There is a ramp to enter her house. Stress test in October 2023 was negative for ischemia. The pretest HR was 54 and peak HR was 70. She is compliant with CPAP - 93% on her last visit with pulmonary in October 2023. [facility] Medical History (Updated 01/12/24 @ 11:[address] Maya, ) Abnormal chest CT Abnormal EKG Anxiety and depression Arthritis Cardiology follow-up encounter Cellulitis of right leg Chronic ulcer of left foot with fat layer exposed CPAP (continuous positive airway pressure) dependence Diverticulosis Essential hypertension Former smoker GERD (gastroesophageal reflux disease) Hiatal hernia High cholesterol History of hiatal hernia History of stress test HLD (hyperlipidemia) Lipodermatosclerosis Localized edema Low iron 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 exposed CHARLENE (obstructive sleep apnea) Other hereditary and idiopathic neuropathies Other specified peripheral vascular diseases Rash Rheumatoid arthritis Sleep apnea Venous insufficiency (chronic) (peripheral) Vitamin D deficiency Wears dentures Wears glasses Home Medications atorvastatin 20 mg tablet 20 mg PO QHS Cholesterol 12/15/15 [History Last Taken 02/17/19] multivitamin 1 ea PO DAILY Supplement 12/15/15 [History Last Taken 01/11/24] paroxetine HCl 20 mg tablet 20 mg PO DAILY Depression 12/15/15 [History Last Taken 01/11/24] amlodipine 2.5 mg tablet 2.5 mg PO DAILY BP 02/17/19 [History Last Taken 01/11/24] omeprazole 20 mg capsule,delayed release 20 mg PO DAILY Stomach acid 10/09/21 [History Last Taken 01/11/24] aspirin 81 mg tablet,delayed release (Adult Low Dose Aspirin) 81 mg PO DAILY Heart 07/19/22 [History Last Taken 01/11/24] cholecalciferol (vitamin D3) 25 mcg (1,000 unit) tablet 50 mcg PO DAILY Supplement 07/19/22 [History Last Taken 01/11/24] acetaminophen 325 mg tablet (Tylenol) 1,000 mg PO TID PRN PRN Pain Score 1-10/Temp > 100.7 F 01/11/24 [History Last Taken Unknown] bisacodyl 10 mg rectal suppository (Dulcolax (bisacodyl)) 10 mg MD DAILY PRN constipation 01/11/24 [History Last Taken Unknown] dexamethasone 2 mg tablet 2 mg PO BID Steroid 01/11/24 [History Last Taken 01/11/24] enoxaparin 40 mg/0.4 mL subcutaneous syringe (Lovenox) 40 mg subcut DAILY Blood thinner 01/11/24 [History Last Taken 01/11/24] melatonin 3 mg capsule 3 mg PO QHS PRN Sleep 01/11/24 [History Last Taken Unknown] miconazole nitrate 2 % topical powder 1 applic topical BID Yeast 01/11/24 [History Last Taken Unknown] nystatin 100,000 unit/mL oral suspension 100,000 unit PO DAILY Thrush 01/11/24 [History Last Taken 01/11/24] polyethylene glycol 3350 17 gram/dose oral powder (Miralax) 17 g PO DAILY Constipation 01/11/24 [History Last Taken 01/11/24] sennosides 8.6 mg-docusate sodium 50 mg tablet (Senna with Docusate Sodium) 1 tab-cap PO BID Constipation 01/11/24 [History Last Taken 01/11/24] Allergy/AdvReac Type Severity Reaction Status Date / Time cephalexin [From Keflex] Allergy Unknown rash, Verified 10/10/23 10:53 headaches bee venom protein (honey bee) Allergy Anaphylaxis Verified 10/10/23 10:53 Penicillins AdvReac Hives Verified 10/10/23 10:53 Family History (Reviewed 10/10/23 @ 11:07 by Eva Lynn [employer], [employer]) Father Heart disease Mother Colon cancer Sister Colon cancer Brother CVA (cerebral vascular accident) COPD (chronic obstructive pulmonary disease) Surgical History History of bilateral knee replacement History of cholecystectomy History of colonoscopy History of esophagogastroduodenoscopy (EGD) History of hysterectomy Hx of appendectomy Social History (Updated 01/12/24 @ 10:[address] Maya DO) household members: spouse housing: house number of children: 1 pets and animals: Yes (1 small dog and 2 outdoor cats) pets and animals: cat(s) and dog(s) leisure activities: other history of recent travel: No Smoking Status: Former smoker Tobacco: How many years used: 20 how long ago did patient quit smokin, 1ppd second hand exposure: Yes alcohol intake: never substance use type: does not use Prior Cardiac Testing/Procedures Prior Cardiac Testing/Procedures: Echocardiogram and Stress Test (October 2023-negative stress test. Transthoracic echocardiogram in May 2022. Normal EF with stage II diastolic dysfunction. Arterial studies of the lower extremities in 2020 were unremarkable.) ROS Review of Systems ROS Unobtainable: Denies due to encephalopathy, due to endotracheal tube, due to mental condition or due to mental status Constitutional Constitutional: Reports body ache(s) and weakness; Denies anorexia, frequent falls, headache(s) or night sweats Eyes Eyes: Denies blurry vision, change in vision, eye pain or loss of vision ENT HEENT: Reports facial pain, mouth pain and other Details: Currently being treated for thrush. Mouth pain has improved and she denies odynophagia. ; Denies abnormal hearing, dysphagia, headache(s), hearing loss, nasal congestion, odynophagia, sinus pain or sore throat Cardiovascular Cardiovascular: Reports weakness in extremities; Denies chest pain, dyspnea on exertion, edema, lightheadedness, orthopnea, palpitations, paroxysmal nocturnal dyspnea or syncope Respiratory/Chest Respiratory/Chest: Denies cough, dyspnea, shortness of breath at rest, shortness of breath with exertion or wheezing Gastrointestinal Gastrointestinal: Reports fecal incontinence; Denies abdominal pain, constipation, diarrhea, dyspepsia, heartburn, hematemesis, hematochezia, nausea or vomiting Genitourinary Genitourinary: Reports urinary incontinence and urinary urgency; Denies dysuria, hematuria, nocturia, urinary frequency or urinary hesitancy Musculoskeletal Musculoskeletal: Denies back pain, joint pain, joint swelling or neck pain Integumentary Integumentary: Reports dry skin and other Details: Multiple scattered bruise due to recent trauma. ; Denies jaundice or rash Neurologic Neurologic: Reports focal weakness and paresthesias; Denies confusion, disequilibrium, dizziness, headache(s), seizures or tremor(s) Psychiatric Psychiatric: Reports anxiety; Denies depression, homicidal ideation or suicidal ideation Endocrine Endocrinology: Denies change in body appearance, polydipsia or polyuria Hematologic/Lymphatic Hematologic/Lymphatic: Reports easy bruising; Denies easy bleeding or lymphadenopathy Allergic/Immunologic Allergic/Immunologic: Denies rhinitis, eczemia or asthma Vital Signs Vital Signs Vital Signs: 01/11/24 13:48 01/11/24 19:58 01/11/24 20:30 Temperature 96.5 F L 98.6 F Temperature Source Temporal Temporal Pulse Rate 41 L 46 L 46 L Respiratory Rate 16 17 17 Respiratory Effort Normal Non-Labored Respiratory Depth Normal Respiratory Pattern Normal Blood Pressure 123/49 H 118/46 L Blood Pressure Mean 73 70 Blood Pressure Source Monitor Monitor Blood Pressure Position Semi-Fowlers Semi-Fowlers Blood Pressure Location Right Arm Right Arm Pulse Ox 97 97 97 Oxygen Delivery Method Room Air Room Air Room Air 01/12/24 08:14 Temperature 97.0 F L Temperature Source Temporal Pulse Rate 40 L Respiratory Rate 15 Respiratory Effort Respiratory Depth Respiratory Pattern Blood Pressure 134/59 H Blood Pressure Mean 84 Blood Pressure Source Monitor Blood Pressure Position Supine Blood Pressure Location Right Arm Pulse Ox 96 Oxygen Delivery Method Room Air Weight Weight: 185 lb 10.067 oz Body Mass Index (BMI) 29.0 Physical Exam Const alert, oriented x3 and no apparent distress Constitutional Narrative: She was sitting in the recliner when I entered the room. She did not appear to be in any discomfort. She is pleasant and appropriate. [email or web address] J collar is in place. General Appearance: cooperative and well hydrated HEENT moist oral mucous membranes HEENT Narrative: No buccal lesions and no coating of the tongue. She has raccoon eyes and the ecchymosis is resolving. PERRLA, EOMI. No facial asymmetry. She is edentulous.....dentures were broken in the fall. Eyes PERRL, EOMs intact bilaterally, conjunctivae normal and no scleral icterus Eyes Narrative: No visual field cuts. General Eye: normal appearance of both eyes Neck Neck Narrative: [facility] J collar is in place. Chest Chest: symmetrical chest wall rise; Negative for crepitus Resp Resp Narrative: Few coarse crackles in the bases. No wheezing and no rhonchi. Good inspiratory effort. Normal air exchange. Not tachypneic. Effort and Inspection: able to speak in complete sentences Cardio regular rate, regular rhythm, S1 normal heart sound, S2 normal heart sound, no murmurs, no rub and no gallops Cardio Narrative: occasional ectopic beat. GI normal to inspection, nondistended, normoactive bowel sounds, soft to palpation and non-tender GI Narrative: No guarding with palpation. no CVA tenderness Narrative: She had a catheter while at [facility]. She is retaining urine. She is also incontinent of urine. Back/Spine General Back: Negative for CVA tenderness Cervical Spine: collar present Extremity normal capillary refill, no calf tenderness and no pedal edema Peripheral Pulses: Yes pulses 2+ throughout Skin no jaundice General Skin Exam: no breakdown, ecchymosis and excoriation(s) Rashes: no rashes Neuro oriented x3 and CN's II-XII intact bilaterally Neuro Narrative: Weakness in the RUE with triceps extension and with contract assistant, worse in ring and little fingers. Psych mental status grossly normal, thought process normal, cooperative, affect normal and speech normal Appearance: grossly normal and appropriate Attitude: calm and engaged Activity / Motor Behavior: appropriate eye contact Speech: normal speech Results Lab / Micro Data 01/12/24 05:22 01/12/24 05:22 Labs: Laboratory Results - last 24 hr 01/12/24 05:22: WBC 13.2 H, RBC 4.00 L, Hgb 12.0, Hct 35.1 L, MCV 87.8, MCH 30.0, MCHC 34.2, RDW Std Deviation 45.3 H, RDW Coeff of Danny 14.4, Plt Count 162, MPV 11.0, Sodium 129 L, Potassium 4.3, Chloride 97 L, Carbon Dioxide 25.0, Anion Gap 7, BUN 34 H, Creatinine 0.82, Estim Creat Clear Calc 57.97, Est GFR (MDRD) Af Amer 85, Est GFR (MDRD) Non-Af 71, BUN/Creatinine Ratio 41.4 H, Glucose 103, Calcium 8.2 L, Phosphorus 3.9, Magnesium 2.0, Total Bilirubin 0.80, AST 20, ALT 32, Alkaline Phosphatase 52, Total Protein 6.1 L, Albumin 2.7 L, Globulin 3.4, Albumin/Globulin Ratio 0.8 L Assessment & Plan Assessment/Plan (1) Physical debility: (2) Fall: QUALIFIERS: Encounter type: subsequent encounter Qualified Code(s): W19.XXXD - Unspecified fall, subsequent encounter (3) Contusion of spinal cord: PLAN: At C6 due to mechanical fall. 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 (5) LeFort I fracture: PLAN: R side due to fall from a curb striking her face. (6) Hyponatremia: (7) Thrush, oral: PLAN: Continue Nystatin (8) Neuropathy: PLAN: Acute on chronic. Has had neuropathy in her feet since age 32 and now also has neuropathy in her hands due to C6 cord contusion with severe canal stenosis. 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 (10) CHARLENE (obstructive sleep apnea): PLAN: Compliant with CPAP (11) Essential hypertension: (12) HLD (hyperlipidemia): (13) Bradycardia: PLAN: She is on nothing to block the AVN and EKG shows sinus bradycardia. This is new since stress in October of this year. Etiology? TSH at [place] was normal. I would expect the HR and BP to be increased with all the Dexamethasone she has been getting. PLAN: Plan PLAN PT for gait stability OT for ADL's ST for evaluation Analgesics as needed Bowel protocol Fall precautions Assess for Anxiety/Depression-continue Paxil GI prophylaxis -pantoprazole DVT prophylaxis with Lovenox 40 mg subcu daily Follow up with neurosurgery, PCP and cardiology following DC from IP Rehab AM lab including CMP, CBC, Mag and Phos - all personally reviewed. Check a T4, cortisol, urine sodium, urine creat, urine osmo and serum osmo. Cortisol will likely Dexamethasone does not provide any mineralocorticoid activity. Today is day #16 of Dexamethasone. Will apply the heart monitor when the family brings it in. Obtain PCP records of BMP's for the past year. Charges/Coding Visit Charges Inpatient E&M: 92420 Init Hosp L2
[2024-01-12 09:33] LABS: Bacteria 0 SEEN /hpf (None Seen); Mucous, Urine 0 SEEN /hpf (<or=2+); Squamous Epithelial Cells - UA 0 SEEN /hpf (5-10)
[2024-01-12 09:36] LABS: Color, Urine Yellow (Yellow); Glucose, Dipstick Normal (Normal); Ketone-Dipstick Negative (Negative); Leukocyte Esterase-Dipstick 500 /ul (Negative); Nitrite-Dipstick Negative (Negative); Occult Blood-Urine 250 /ul (Negative); Protein-Dipstick 100 mg/dl (Negative); Urine Bilirubin Dipstick Negative (Negative); Urine Clarity Cloudy (Clear); Urine Urobilinogen Normal (Normal); Urine pH 6.5 (5.0 - 8.0)
[2024-01-12 09:48] LABS: Red Blood Cells-Urine 25-50 SEEN /hpf (0-5); White Blood Cells 25-50 SEEN /hpf (0-5)
[2024-01-12 10:00] VITALS: PULSE 40
[2024-01-12 10:05] LABS: Osmolality, Urine 470 mOsm/KG
[2024-01-12 10:05] LABS: Osmolality, Serum 276 mOsm/KG (280-301)
[2024-01-12 10:08] LABS: Urine Sodium 46 mmol/L (Not Establ.)
[2024-01-12] MEDS: NYSTATIN 500,000 UNIT/5 ML UDC 500000 UNIT PO ×4 (11:06→21:00)
[2024-01-12] MEDS: Enoxaparin 40 MG/0.4 ML Syringe SC (11:07)
[2024-01-12] MEDS: Miconazole Nitrate 43 GM Bottle 1 APPLIC TOPICAL ×2 (11:11→20:59)
[2024-01-12 11:28] LABS: T4 Free Direct 0.91 ng/dL (0.76-1.46)
--- NOTE | 2024-01-12 11:38 | REHABEVAL_ITS ---
Admission Information Primary Diagnosis:: Debility due to spinal cord contusion at C6 with severe cervical stenosis Status Changes from Prescreening?: No changes Identified Actual Problem List:: Pain, ALteration in Cmfrt, Bladder Incontinence, Bowel, Incontinence, Mobility Impaired, Self Care Deficit and Alteration-Leisure Activ. Potential Problem List:: DVT, Bleeding, Infection, UTI, Aspiration, Falls, Skin Integrity and Depression Risk of Complications DVT: LMWH and FLORY Hose Bleeding: Monitor Lab Values, Nursing to Teach Precautions for anti-coagulation therapy., Wound, if applicable, to be assessed every shift. and Stroke patients assessed for lethargy or change in status. Infection: Clinical Staff to Monitor for S/S of infection: and S/S of infection include fever, redness, warmth, etc. Urinary Tract Infection: Monitor for frequency, burning, discomfort, or incontinence. and Nursing will obtain urine sample for urinalysis and C&S when ordered. Aspiration: Clinical staff will monitor for coughing, drooling, congestion., Speech will evaluate swallowing and dsyphasia. and Nursing will monitor patient swallowing during meals. Falls: Patient will be evaluated for Fall Precautions and Patient will be placed on Fall Precautions as indicated per protocol. Skin Breakdown: Nursing will assess skin daily using assessment tool. and Nursing will place on Skin Breakdown Precautions as indicated. Pain: Clinical staff will assess patient's pain level per protocol., Medications will be given, if needed, and the pain level reassessed. and Other methods: Massage, distraction, decrease stimulus, etc. used PRN. Plan of Care Patient requires physician specializing in physical medicine and rehab oversight to provide close medical supervision of rehab issues including: Pain Management, Sleep Problems, Bowel and Bladder, Medical and co-morbidity Management, DVT prophylaxis, Rehabilitation Leadership and Coordination of treatment team Patient needs Physical Therapy: For a minimum of 1 hour and At least 5 out of 7 days Patient needs Physical Therapy to improve:: Mobility, Strengthening, Transfers, Stretching, ROM, Endurance, Stairs, Gait and Balance Patient needs Occupational Therapy: For a minimum of 1 hour and At least 5 out of 7 days Patient needs Occupational Therapy to improve ADL's incl.: Eating, Grooming, Bathing, Dressing, Toileting, Toilet transfers, Community Reintegration, Higher functioning activities, Household tasks, Adaptive Equipment, Splinting and Other activities as determined Patient requires 24/7 Rehabilitation Nursing for: Pain Issues, Identifying and preventing risk factors, Monitoring and reporting current medical conditions, Assisting with ambulation, transfer, and all ADL's, Teaching patients about disease process and medications, Family teaching, Providing safe environment, Bowel and Bladder Issues, Skin integrity and Medication Management Patient needs [employer] Sales Representative/ Case Management for: Discharge Planning, Arranging Home Equipment or Services and Family Interventions Patient needs Dietary and Nutrition Services for: Adequate Nutrition, Nutritional Supplements and Nutritional Education Goals Goals Patient will remain: free from falls and or injury at time of discharge. Patient will perform bed mobility at: MOD I level of assist. Patient will complete transfers from bed to chair at: - (She will complete transfers from various surfaces at CGA/SBA) Patient will ambulate: 100 feet, 50 feet (With least restrictive device on various surfaces at contact-guard assist/standby assist to allow her to return home with support.) and with LRD Patient will complete upper body dressing at: - (Set up) Patient will complete lower body dressing at: - (Supervision and use of adaptive equipment as needed.) Patient will complete toilet transfer at: - (Supervision) Patient will complete toileting at: - (Supervision) Patient will perform bathing at: - (Upper body bathing at supervision and lower body bathing at supervision with adaptive equipment as needed for increased independence with self-care.) Patient will perform Tub/Shower transfer at: - (Supervision/contact-guard assist) Patient will complete grooming at: MOD I level of assist. Patient will complete home management skills at: MOD I level of assist. Patient will achieve: - (1 curb step at contact-guard assist with least restrictive device) Patient will have pain level of: of 3 or less Patient's skin will: remain intact Patient will receive: adequate nutrition. Discharge Planning Pt Prognosis for Sig. Practical Improv. w/in Reasonable Time: Good Estimated Length of stay (days): 28 Anticipated D/C Destination: Home with Home Health Was Preadmission Assessment Accurate?: Yes
[2024-01-12] MEDS: Fludrocortisone Acetate 0.1 MG Tablet 0.05 MG PO (12:11)
[2024-01-12 19:42] VITALS: BP 125/48; PULSE 48; RESP 15; TEMP 36.7; O2SAT 97
[2024-01-12] MEDS: Atorvastatin Calcium 20 MG Tablet PO (21:00)
[2024-01-12] MEDS: Paroxetine 20 MG Tablet PO (21:01)
[2024-01-12 22:00] VITALS: PULSE 48; RESP 15; O2SAT 96
[2024-01-13] MEDS: dexAMETHasone 4 MG Tablet 2 MG PO ×2 (07:55→17:23)
[2024-01-13] MEDS: NYSTATIN 500,000 UNIT/5 ML UDC 500000 UNIT PO ×4 (07:55→22:15)
[2024-01-13] MEDS: Polyethylene Glycol 3350 17 GM PACKET PO (07:55)
[2024-01-13] MEDS: Senna/Docusate Sodium 1 Tablet PO ×2 (07:55→22:16)
[2024-01-13] MEDS: amLODIPine 2.5 MG Tablet PO (07:56)
[2024-01-13] MEDS: Fludrocortisone Acetate 0.1 MG Tablet 0.05 MG PO (07:56)
[2024-01-13] MEDS: Cholecalciferol (VIT D3) 25 MCG TABLET (1,000 UNITS) 50 MCG PO (07:56)
[2024-01-13] MEDS: Pantoprazole Sodium 20 MG Tablet PO (07:56)
[2024-01-13] MEDS: Multivitamins,Therapeutic Tablet 1 TABLET PO (07:56)
[2024-01-13] MEDS: Aspirin E.C. 81 MG Tablet PO (07:57)
[2024-01-13] MEDS: Enoxaparin 40 MG/0.4 ML Syringe SC (07:57)
[2024-01-13] MEDS: Miconazole Nitrate 43 GM Bottle 1 APPLIC TOPICAL ×2 (07:58→22:14)
[2024-01-13 08:39] VITALS: BP 138/60; PULSE 49; RESP 15; TEMP 36.4; O2SAT 94
--- NOTE | 2024-01-13 08:59 | PN_ITS ---
Subjective Subjective Afebrile VSS Maintaining appropriate oxygen saturation on RA Oral intake - FOOD good FLUIDS good She has had 3 postvoid residuals and they are all less than 200. Discussed with nursing -remains incontinent of urine at all times and stool sometimes. Reviewed the THERAPY notes Medication list reviewed. Took Tylenol 2 times yesterday for pain. Urine culture is pending. She is AF. Tells me that her pain is adequately controlled with Tylenol. Denies fevers, sweats and chills. She denies TABOR, lightheadedness, CP, SOB, N/V/abd pain, dysuria, calf pain. She had some pain in the second and third toes of the R foot today.......has had in the past.....started in her 30's when she was diagnosed with peripheral neuropathy. Does not keep her awake at night and does not bother her ability to walk. No cough. Denies vaginal itching or discharge. Objective Data Objective Data Vital Signs: Vital Signs Temp Pulse Resp BP Pulse Ox O2 Del Method 97.6 F L 49 L 15 138/60 H 94 Room Air 01/13/24 08:39 01/13/24 08:39 01/13/24 08:39 01/13/24 08:39 01/13/24 08:39 01/13/24 08:39 Oxygen Delivery Method Room Air Weight: 185 lb 10.067 oz Body Mass Index (BMI) 29.0 Intake & Output: Intake and Output for Last 24 Hours 01/11/24 01/12/24 01/13/24 23:59 23:59 23:59 Intake Total 100 / 100 1700 / 1700 480 / 480 Output Total 1200 / 1200 Balance 100 / 100 500 / 500 480 / 480 Lab / Micro Data 01/12/24 05:22 01/12/24 05:22 Labs: Laboratory Results - last 24 hr 01/12/24 05:22: Serum Osmolality 276 L, Free T4 0.91, Cortisol 1.10 L 01/12/24 09:20: Urine Color Yellow, Urine Clarity Cloudy, Urine pH 6.5, Ur Specific [place] 1.010, Urine Protein 100 H, Urine Glucose (UA) Normal, Urine Ketones Negative, Urine Occult Blood 250 H, Urine Nitrite Negative, Urine Bilirubin Negative, Urine Urobilinogen Normal, Ur Leukocyte Esterase 500 H, Urine RBC 25-50 SEEN, Urine WBC 25-50 SEEN, Ur Squamous Epith Cells 0 SEEN, Urine Bacteria 0 SEEN, Urine Mucus 0 SEEN, Urine Osmolality 470, Ur Random Sodium 46, Urine Creatinine 34.70 Physical Exam Const alert, oriented x3 and no apparent distress General Appearance: cooperative Orientation / Consciousness: Negative for confused HEENT HEENT Narrative: MM are a little dry. No coating of the tongue and Buccal mucosa is not melisa red. No pain with swallowing. Resp normal respiratory effort and normal air movement Resp Narrative: persistent coarse crackles in the bases evn after several deep breaths. She tells me her doctor has mentioned this to her in the past. She has some thoracic kyphosis. Effort and Inspection: Negative for tachypneic Cardio regular rate, regular rhythm, no rub and no gallops Cardio Narrative: No ectopy today. Heart rate has ranged from 40-49 since arrival on rehab. She denies lightheadedness. Rate: bradycardia GI normal to inspection, nondistended, normoactive bowel sounds, soft to palpation and non-tender Extremity no calf tenderness General Extremity: Negative for edema Skin Wound Narrative: Facial bruising is resolving. She has a lot of bruising on the Left knee and it is sore. Neuro CN's II-XII intact bilaterally and no focal motor deficits Neuro Narrative: She has sensory loss in both feet and distal lower extremities. This is unchanged since the accident. Psych thought process normal, cooperative and affect normal Assessment & Plan Assessment/Plan (1) Physical debility: (2) Fall: QUALIFIERS: Encounter type: subsequent encounter Qualified Code(s): W19.XXXD - Unspecified fall, subsequent encounter (3) Contusion of spinal cord: (4) Cervical stenosis of spinal canal: (5) LeFort I fracture: (6) Hyponatremia: (7) Thrush, oral: (8) Neuropathy: (9) Myopathy: (10) CHARLENE (obstructive sleep apnea): (11) Essential hypertension: (12) HLD (hyperlipidemia): (13) Bradycardia: PLAN: Plan 1. Continue therapy 2. BMP in the a.m. 3. Daily weights x 72 hours 4. Insert Rowland catheter for accurate I&O's and remove in 72 hours since she was started on Florinef yesterday. 5. She will have been on Dexamethasone for just over 3 weeks when it is discontinued. It has been tapered but, will need to observe closely for any signs of adrenal insufficiency when it is discontinued. 6. It may be the dexamethasone that is causing the Decadron. She is on 2 mg twice daily currently but will go down to 1 mg twice daily tomorrow. She had heart rates in the 30s at times at the previous hospital and her lowest heart rate since arrival on rehab has been 40. No treatment indicated at this time as she is asymptomatic and it seems to be improving. Charges/Coding Visit Charges Inpatient E&M: 59000 Subs Hosp L1
[2024-01-13 11:30] VITALS: BMI 29.2
[2024-01-13 22:00] VITALS: BP 124/56; PULSE 48; RESP 16; TEMP 35.8; O2SAT 97
[2024-01-13] MEDS: Arthritis Pain Compound 60 CLICK TUBE TOPICAL (22:14)
[2024-01-13] MEDS: Paroxetine 20 MG Tablet PO (22:15)
[2024-01-13] MEDS: Atorvastatin Calcium 20 MG Tablet PO (22:15)
[2024-01-13] MEDS: Acetaminophen 500 MG Tablet 1000 MG PO (22:24)
[2024-01-14 05:59] VITALS: BMI 28.8
[2024-01-14 06:00] VITALS: BMI 28.8
[2024-01-14] MEDS: Acetaminophen 500 MG Tablet 1000 MG PO ×2 (06:06→22:08)
[2024-01-14 06:13] LABS: Anion Gap 6 (5-15); BUN 31 mg/dL (7-18); BUN/Creat Ratio 40.6 RATIO (10-20); Calcium,Total 8.3 mg/dL (8.5-10.1); Chloride 98 mmol/L (98-107); Creatinine, Serum 0.76 mg/dL (0.55-1.02); EST Glomerular Filtration Rate 77 mL/min (>60); Est Glom Filt Rate - Afr Amer 93 mL/min (>60); Estimated Creatinine Clearance 59.18 ml/min; Glucose 115 mg/dL (74-106); Potassium 4.3 mmol/L (3.5-5.1); Sodium Level 129 mmol/L (136-145)
[2024-01-14 07:07] VITALS: BP 141/54; PULSE 40; RESP 16; TEMP 36.6; O2SAT 97
[2024-01-14] MEDS: amLODIPine 2.5 MG Tablet PO (07:58)
[2024-01-14] MEDS: Pantoprazole Sodium 20 MG Tablet PO (07:58)
[2024-01-14] MEDS: Polyethylene Glycol 3350 17 GM PACKET PO (07:58)
[2024-01-14] MEDS: Enoxaparin 40 MG/0.4 ML Syringe SC (07:58)
[2024-01-14] MEDS: Aspirin E.C. 81 MG Tablet PO (07:59)
[2024-01-14] MEDS: Senna/Docusate Sodium 1 Tablet PO (07:59)
[2024-01-14] MEDS: Fludrocortisone Acetate 0.1 MG Tablet 0.05 MG PO (07:59)
[2024-01-14] MEDS: NYSTATIN 500,000 UNIT/5 ML UDC 500000 UNIT PO ×4 (07:59→21:59)
[2024-01-14] MEDS: Multivitamins,Therapeutic Tablet 1 TABLET PO (07:59)
[2024-01-14] MEDS: Cholecalciferol (VIT D3) 25 MCG TABLET (1,000 UNITS) 50 MCG PO (07:59)
[2024-01-14] MEDS: Miconazole Nitrate 43 GM Bottle 1 APPLIC TOPICAL ×2 (08:04→21:58)
[2024-01-14] MEDS: Arthritis Pain Compound 60 CLICK TUBE TOPICAL ×2 (08:06→21:56)
[2024-01-14 19:25] VITALS: BP 125/50; PULSE 40; RESP 17; TEMP 36.5; O2SAT 96
[2024-01-14 22:00] VITALS: PULSE 40; RESP 17; O2SAT 96
[2024-01-14] MEDS: Atorvastatin Calcium 20 MG Tablet PO (22:00)
[2024-01-14] MEDS: Paroxetine 20 MG Tablet PO (22:01)
[2024-01-15 06:00] VITALS: BMI 29.1
[2024-01-15] MEDS: Enoxaparin 40 MG/0.4 ML Syringe SC (06:27)
[2024-01-15 07:18] VITALS: BP 131/55; PULSE 42; RESP 16; TEMP 36.4; O2SAT 96
[2024-01-15] MEDS: Polyethylene Glycol 3350 17 GM PACKET PO (08:23)
[2024-01-15] MEDS: NYSTATIN 500,000 UNIT/5 ML UDC 500000 UNIT PO ×4 (08:23→20:59)
[2024-01-15] MEDS: Cholecalciferol (VIT D3) 25 MCG TABLET (1,000 UNITS) 50 MCG PO (08:24)
[2024-01-15] MEDS: Senna/Docusate Sodium 1 Tablet PO (08:24)
[2024-01-15] MEDS: Multivitamins,Therapeutic Tablet 1 TABLET PO (08:24)
[2024-01-15] MEDS: amLODIPine 2.5 MG Tablet PO (08:24)
[2024-01-15] MEDS: Pantoprazole Sodium 20 MG Tablet PO (08:24)
[2024-01-15] MEDS: Fludrocortisone Acetate 0.1 MG Tablet 0.05 MG PO ×2 (08:24→11:40)
[2024-01-15] MEDS: Aspirin E.C. 81 MG Tablet PO (08:24)
[2024-01-15] MEDS: Miconazole Nitrate 43 GM Bottle 1 APPLIC TOPICAL ×2 (08:31→20:59)
[2024-01-15] MEDS: Arthritis Pain Compound 60 CLICK TUBE TOPICAL ×2 (08:35→20:59)
--- NOTE | 2024-01-15 09:48 | PN_ITS ---
Subjective Subjective Day #1 of 5 ciprofloxacin for E. coli UTI Kiesha was seen on team rounds today. Her Sister Susanne was present in the room for rounds and her [id number] Polo participated by phone. Afebrile VSS -heart rate is still in the low 40s. Blood pressure is stable. Maintaining appropriate oxygen saturation on RA Oral intake - FOOD good FLUIDS -intake is good but even with the Florinef she has been in negative fluid balance. Discussed with nursing - no problems that need addressed Reviewed the THERAPY notes Medication list reviewed. Urine culture grew greater than 100,000 colonies of E. coli which is pansensi tive Sodium today is 129 and the potassium is 4.3. The BUN remains elevated at 31 with a creatinine of 0.76 and a BUN/creatinine ratio of 40.6. Kiesha denies cephalgia, vertigo, lightheadedness, excessive fatigue, chest pain, cough, shortness of breath, nausea/vomiting/epigastric pain and calf pain. Objective Data Objective Data Vital Signs: Vital Signs Temp Pulse Resp BP Pulse Ox O2 Del Method 97.6 F L 42 L 16 131/55 H 96 Room Air 01/15/24 07:18 01/15/24 07:18 01/15/24 07:18 01/15/24 07:18 01/15/24 07:18 01/15/24 07:18 Oxygen Delivery Method Room Air Weight: 184 lb 1.376 oz Body Mass Index (BMI) 28.8 Intake & Output: Intake and Output for Last 24 Hours 01/13/24 01/14/24 01/15/24 23:59 23:59 23:59 Intake Total 1735 / 1735 2019 360 / 360 Output Total 2049 / 2049 3000 / 3200 1350 / 1350 Balance -315 / -315 -980 / -1180 -990 / -990 Lab / Micro Data 01/12/24 05:22 01/14/24 05:31 Micro: Microbiology 01/12/24 06:21 Urine Catheter - Catheter Urine Culture - Final Presumptive E. coli Physical Exam Const alert, oriented x3 and no apparent distress General Appearance: cooperative Orientation / Consciousness: Negative for confused Neck Neck Narrative: [place] J collar remains in place. Resp normal respiratory effort and normal air movement Resp Narrative: Persistent coarse crackles in the bases even after several deep breaths. She is using the PAP and the incentive spirometer. Effort and Inspection: Negative for tachypneic Cardio regular rate, regular rhythm, no rub and no gallops Cardio Narrative: No ectopy today. Heart rate has ranged from 40-49 since arrival on rehab. She denies lightheadedness. Rate: bradycardia GI normal to inspection, nondistended, normoactive bowel sounds, soft to palpation and non-tender Extremity no calf tenderness General Extremity: Negative for edema Skin Wound Narrative: Facial bruising is resolving. She has a lot of bruising on the Left knee and it is sore. Neuro CN's II-XII intact bilaterally Neuro Narrative: She has sensory loss in both feet and distal lower extremities. This is unchanged since the accident. Remains incontinent of urine and stool. Speech: speech normal Psych thought process normal, cooperative and affect normal Assessment & Plan Assessment/Plan (1) Physical debility: (2) Fall: QUALIFIERS: Encounter type: subsequent encounter Qualified Code(s): W19.XXXD - Unspecified fall, subsequent encounter (3) Contusion of spinal cord: (4) Cervical stenosis of spinal canal: (5) LeFort I fracture: QUALIFIERS: Encounter type: subsequent encounter Fracture type: closed (6) Hyponatremia: (7) Thrush, oral: (8) Neuropathy: (9) Myopathy: (10) CHARLENE (obstructive sleep apnea): (11) Essential hypertension: (12) HLD (hyperlipidemia): (13) Bradycardia: (14) UTI (urinary tract infection): PLAN: Plan 1. Continue therapy 2. Ciprofloxacin 250 mg twice daily x 10 doses. 3. Lactobacillus 1 p.o. twice daily for 10 days 4. NS 75 cc/hr and recheck a BMP in the AM 5. Increase the Florinef to 0.1 mg daily starting today. Charges/Coding Visit Charges Inpatient E&M: 47220 Subs Hosp L2
[2024-01-15] MEDS: Ciprofloxacin 250 MG Tablet PO ×2 (11:40→21:00)
[2024-01-15] MEDS: Lactobacillis Acidophilus 1 CAP PO ×2 (11:40→20:59)
--- NOTE | 2024-01-15 13:10 | CASEMGMT ---
Social Work IDT met with patient and sisterAllison at bedside and Polo via phone to complete care plans. Discussed patient progress with therapy PT/OT. SW educated patient and family of [employer] insurance; NRD 01/18. SW discussed patient prior level of functioning and goals. Patient has goals to return home with family and home health care. SW discussed potential for alternative care SNF pending patient progress. SW will continue to follow to assist patient with transition of care planning and complete initial intake assessment. AMINATA Bazan
--- NOTE | 2024-01-15 14:46 | CASEMGMT ---
Social Work SW met with patient at bedside to complete initial intake assessment. Patient informed SW that she presented to [facility] after fall in parking lot. Patient confirmed demographics. Patient informed SW prior to admission to [facility], she was residing in home with , independent to complete ADLS. Patient informed SW that prior level of functioning was independent. SW reviewed patient history; no home health or care home facility placement in the past. Patient utilized outpatient therapy at [facility] in [place] in the past. Patient informed SW that goal is to return home with and home health care services. Patient informed SW that her sister, Allison will be able to assist with care, if required. Patient is aware that goal is dependent of progress with therapy. Patient confirmed code status- Full code. SW will continue to follow for discharge planning. AMINATA Bazan
[2024-01-15] MEDS: 0.9% Normal Saline (1000mL) 1,000 ML 75 ML IV (16:31)
[2024-01-15 21:00] VITALS: BP 121/47; PULSE 43; RESP 15; TEMP 36; O2SAT 96
[2024-01-15] MEDS: Paroxetine 20 MG Tablet PO (21:00)
[2024-01-15] MEDS: Atorvastatin Calcium 20 MG Tablet PO (21:00)
[2024-01-15] MEDS: Acetaminophen 500 MG Tablet 1000 MG PO (21:04)
[2024-01-15] MEDS: MELATONIN 3 MG TABLET PO (21:53)
[2024-01-16] MEDS: 0.9% Normal Saline (1000mL) 1,000 ML 75 ML IV (05:21)
[2024-01-16] MEDS: Enoxaparin 40 MG/0.4 ML Syringe SC (05:21)
[2024-01-16 06:00] VITALS: BMI 29.0
[2024-01-16] MEDS: Arthritis Pain Compound 60 CLICK TUBE TOPICAL ×2 (08:23→21:27)
[2024-01-16] MEDS: Multivitamins,Therapeutic Tablet 1 TABLET PO (08:26)
[2024-01-16] MEDS: Polyethylene Glycol 3350 17 GM PACKET PO (08:26)
[2024-01-16] MEDS: Aspirin E.C. 81 MG Tablet PO (08:26)
[2024-01-16] MEDS: NYSTATIN 500,000 UNIT/5 ML UDC 500000 UNIT PO ×4 (08:26→21:26)
[2024-01-16] MEDS: Cholecalciferol (VIT D3) 25 MCG TABLET (1,000 UNITS) 50 MCG PO (08:26)
[2024-01-16] MEDS: Fludrocortisone Acetate 0.1 MG Tablet PO (08:26)
[2024-01-16] MEDS: Pantoprazole Sodium 20 MG Tablet PO (08:26)
[2024-01-16] MEDS: Senna/Docusate Sodium 1 Tablet PO ×2 (08:26→21:26)
[2024-01-16] MEDS: Ciprofloxacin 250 MG Tablet PO ×2 (08:26→21:27)
[2024-01-16] MEDS: amLODIPine 2.5 MG Tablet PO (08:26)
[2024-01-16] MEDS: Lactobacillis Acidophilus 1 CAP PO ×2 (08:26→21:27)
[2024-01-16] MEDS: Miconazole Nitrate 43 GM Bottle 1 APPLIC TOPICAL ×2 (08:30→21:30)
[2024-01-16 09:23] LABS: Anion Gap 6 (5-15); BUN 24 mg/dL (7-18); BUN/Creat Ratio 36.4 RATIO (10-20); Calcium,Total 8.5 mg/dL (8.5-10.1); Chloride 104 mmol/L (98-107); Creatinine, Serum 0.66 mg/dL (0.55-1.02); EST Glomerular Filtration Rate 91 mL/min (>60); Est Glom Filt Rate - Afr Amer 110 mL/min (>60); Estimated Creatinine Clearance 59.45 ml/min; Glucose 89 mg/dL (74-106); Potassium 3.8 mmol/L (3.5-5.1); Sodium Level 133 mmol/L (136-145)
[2024-01-16 10:00] VITALS: BP 141/55; PULSE 42; RESP 16; TEMP 36.4; O2SAT 96
--- NOTE | 2024-01-16 12:03 | PN_ITS ---
Subjective Subjective Cipro day #2 Afebrile VSS still bradycardic in the low 40s. Maintaining appropriate oxygen saturation on RA Oral intake - FOOD good FLUIDS good. Fluid balance yesterday was +600. Florinef was increased to 0.1 mg daily yesterday. Discussed with nursing - no problems that need addressed Reviewed the THERAPY notes Medication list reviewed. All lab from this morning was personally reviewed. Sodium is up to 133 and the potassium is 3.8 today. The BUN is 24, down from 31 2 days ago and the creatinine is 0.66, down from 0.76 2 days ago. Kiesha states that she is sleeping well. She has a little discomfort in her neck, mostly from the collar rubbing. It has been padded. She denies cephalgia. Denies cephalgia, dizziness, sore throat, painful mouth, nausea/vomiting/abdominal pain, diarrhea/constipation, suprapubic pain and calf tenderness. The heart monitor that was to be delivered to her house has not arrived yet. Objective Data Objective Data Vital Signs: Vital Signs Temp Pulse Resp BP Pulse Ox O2 Del Method 97.6 F L 42 L 16 141/55 H 96 Room Air 01/16/24 10:00 01/16/24 10:00 01/16/24 10:00 01/16/24 10:00 01/16/24 10:00 01/16/24 10:00 Oxygen Delivery Method Room Air Weight: 185 lb 13.595 oz Body Mass Index (BMI) 29.1 Intake & Output: Intake and Output for Last 24 Hours 01/14/24 01/15/24 01/16/24 23:59 23:59 23:59 Intake Total 2019 1300.0 / 1300.0 Output Total 3000 / 3200 2200 / 2200 1200 / 1200 Balance -980 / -1180 -130 / -130 100.0 / 100.0 Lab / Micro Data 01/12/24 05:22 01/16/24 07:40 Labs: Laboratory Results - last 24 hr 01/16/24 07:40: Sodium 133 L, Potassium 3.8, Chloride 104, Carbon Dioxide 23.0, Anion Gap 6, BUN 24 H, Creatinine 0.66, Estim Creat Clear Calc 59.45, Est GFR (MDRD) Af Amer 110, Est GFR (MDRD) Non-Af 91, BUN/Creatinine Ratio 36.4 H, Glucose 89, Calcium 8.5 Micro: Microbiology 01/12/24 06:21 Urine Catheter - Catheter Urine Culture - Final Presumptive E. coli Physical Exam Const alert, oriented x3 and no apparent distress General Appearance: cooperative Orientation / Consciousness: Negative for confused HEENT HEENT Narrative: MM are a little dry. Eyes PERRL and EOMs intact bilaterally Eyes Narrative: Zari-orbital bruising is much better. Neck Neck Narrative: [place] J collar remains in place. Resp normal respiratory effort Resp Narrative: Persistent coarse crackles in the bases even after several deep breaths. She is using the PAP and the incentive spirometer. Effort and Inspection: Negative for tachypneic Cardio regular rate, regular rhythm, no rub and no gallops Cardio Narrative: No ectopy today. Heart rate has ranged from 40-49 since arrival on rehab. She denies lightheadedness. Rate: bradycardia GI normal to inspection, nondistended, normoactive bowel sounds, soft to palpation and non-tender Extremity no calf tenderness General Extremity: Negative for edema Skin Wound Narrative: Facial bruising is resolving. She has a lot of bruising on the Left knee and it is sore. Neuro CN's II-XII intact bilaterally Neuro Narrative: She has sensory loss in both feet and distal lower extremities. This is unchanged since the accident. Remains incontinent of urine and stool. Speech: speech normal Psych thought process normal, cooperative and affect normal Assessment & Plan Assessment/Plan (1) Physical debility: (2) Fall: QUALIFIERS: Encounter type: subsequent encounter Qualified Code(s): W19.XXXD - Unspecified fall, subsequent encounter (3) Contusion of spinal cord: (4) Cervical stenosis of spinal canal: (5) LeFort I fracture: QUALIFIERS: Encounter type: subsequent encounter Fracture type: closed (6) Hyponatremia: (7) Thrush, oral: (8) Neuropathy: (9) Myopathy: (10) CHARLENE (obstructive sleep apnea): (11) Essential hypertension: (12) HLD (hyperlipidemia): (13) Bradycardia: (14) UTI (urinary tract infection): PLAN: Plan 1. Continue therapy 2. Recheck a BMP on Friday 3. Continue the Florinef at 0.1 mg daily 4. Watch very closely for any signs adrenal insufficiency when the Dexametha sone is discontinued. The last dose will be on the which is next Friday. Tomorrow she will be decreasing to 1 mg daily. 5. HR is not really improving with tapering of the Dexamethasone. She is going to need a event monitor. If the monitor ordered by the previous hospital does not arrive at her house by Friday will call them or have an event monitor from [facility] applied at [place] from rehab. Charges/Coding Visit Charges Inpatient E&M: 26153 Subs Hosp L1
[2024-01-16 19:26] VITALS: BP 135/41; PULSE 45; RESP 12; TEMP 36.4; O2SAT 98
[2024-01-16] MEDS: Paroxetine 20 MG Tablet PO (21:26)
[2024-01-16] MEDS: Atorvastatin Calcium 20 MG Tablet PO (21:27)
[2024-01-16] MEDS: MELATONIN 3 MG TABLET PO (21:33)
[2024-01-16] MEDS: Acetaminophen 500 MG Tablet 1000 MG PO (21:33)
[2024-01-17] MEDS: Enoxaparin 40 MG/0.4 ML Syringe SC (05:54)
[2024-01-17 06:00] VITALS: BMI 29.5
[2024-01-17] MEDS: Ciprofloxacin 250 MG Tablet PO ×2 (08:50→20:56)
[2024-01-17] MEDS: NYSTATIN 500,000 UNIT/5 ML UDC 500000 UNIT PO ×4 (08:50→20:56)
[2024-01-17] MEDS: Pantoprazole Sodium 20 MG Tablet PO (08:50)
[2024-01-17] MEDS: Cholecalciferol (VIT D3) 25 MCG TABLET (1,000 UNITS) 50 MCG PO (08:50)
[2024-01-17] MEDS: Aspirin E.C. 81 MG Tablet PO (08:51)
[2024-01-17] MEDS: amLODIPine 2.5 MG Tablet PO (08:51)
[2024-01-17] MEDS: Multivitamins,Therapeutic Tablet 1 TABLET PO (08:51)
[2024-01-17] MEDS: Lactobacillis Acidophilus 1 CAP PO ×2 (08:55→20:56)
[2024-01-17] MEDS: Fludrocortisone Acetate 0.1 MG Tablet PO (08:55)
[2024-01-17 09:25] VITALS: BP 110/50; PULSE 50; RESP 16; TEMP 36.7; O2SAT 98
[2024-01-17] MEDS: Senna/Docusate Sodium 1 Tablet PO ×2 (09:41→20:58)
[2024-01-17] MEDS: Arthritis Pain Compound 60 CLICK TUBE TOPICAL ×2 (09:46→20:56)
[2024-01-17] MEDS: Miconazole Nitrate 43 GM Bottle 1 APPLIC TOPICAL ×2 (09:46→20:58)
[2024-01-17] MEDS: 0.9% Saline Lock 10 ML Syringe IV ×2 (13:26→21:00)
[2024-01-17 19:33] VITALS: BP 131/53; PULSE 44; RESP 17; TEMP 36.2; O2SAT 93
[2024-01-17] MEDS: Paroxetine 20 MG Tablet PO (20:55)
[2024-01-17] MEDS: Acetaminophen 500 MG Tablet 1000 MG PO (20:55)
[2024-01-17] MEDS: MELATONIN 3 MG TABLET PO (20:55)
[2024-01-17] MEDS: Atorvastatin Calcium 20 MG Tablet PO (20:56)
[2024-01-18] MEDS: Enoxaparin 40 MG/0.4 ML Syringe SC (05:42)
[2024-01-18 07:45] VITALS: BP 148/52; PULSE 44; RESP 16; TEMP 36.3; O2SAT 98
[2024-01-18] MEDS: Multivitamins,Therapeutic Tablet 1 TABLET PO (08:54)
[2024-01-18] MEDS: Fludrocortisone Acetate 0.1 MG Tablet PO (08:54)
[2024-01-18] MEDS: Aspirin E.C. 81 MG Tablet PO (08:54)
[2024-01-18] MEDS: Senna/Docusate Sodium 1 Tablet PO ×2 (09:35→21:18)
[2024-01-18] MEDS: Lactobacillis Acidophilus 1 CAP PO ×2 (09:36→21:18)
[2024-01-18] MEDS: Cholecalciferol (VIT D3) 25 MCG TABLET (1,000 UNITS) 50 MCG PO (09:36)
[2024-01-18] MEDS: Ciprofloxacin 250 MG Tablet PO ×2 (09:37→21:18)
[2024-01-18] MEDS: Pantoprazole Sodium 20 MG Tablet PO (09:37)
[2024-01-18] MEDS: amLODIPine 2.5 MG Tablet PO (09:37)
[2024-01-18] MEDS: Miconazole Nitrate 43 GM Bottle 1 APPLIC TOPICAL ×2 (09:38→21:19)
[2024-01-18] MEDS: NYSTATIN 500,000 UNIT/5 ML UDC 500000 UNIT PO ×3 (09:39→21:18)
[2024-01-18] MEDS: Polyethylene Glycol 3350 17 GM PACKET PO (09:39)
[2024-01-18] MEDS: Arthritis Pain Compound 60 CLICK TUBE TOPICAL ×2 (10:53→21:19)
[2024-01-18 20:05] VITALS: BP 112/37; PULSE 50; RESP 16; TEMP 36; O2SAT 96
[2024-01-18 21:17] VITALS: BP 148/51; PULSE 50; O2SAT 97
[2024-01-18] MEDS: Paroxetine 20 MG Tablet PO (21:18)
[2024-01-18] MEDS: Acetaminophen 500 MG Tablet 1000 MG PO (21:18)
[2024-01-18] MEDS: Atorvastatin Calcium 20 MG Tablet PO (21:18)
[2024-01-18] MEDS: MELATONIN 3 MG TABLET PO (21:19)
[2024-01-18] MEDS: 0.9% Saline Lock 10 ML Syringe IV (21:20)
[2024-01-19] MEDS: Enoxaparin 40 MG/0.4 ML Syringe SC (05:26)
[2024-01-19 07:29] VITALS: BP 142/51; PULSE 42; RESP 16; TEMP 36.5; O2SAT 96
[2024-01-19] MEDS: amLODIPine 2.5 MG Tablet PO (08:00)
[2024-01-19] MEDS: Pantoprazole Sodium 20 MG Tablet PO (08:00)
[2024-01-19] MEDS: Cholecalciferol (VIT D3) 25 MCG TABLET (1,000 UNITS) 50 MCG PO (08:00)
[2024-01-19] MEDS: NYSTATIN 500,000 UNIT/5 ML UDC 500000 UNIT PO ×4 (08:00→21:21)
[2024-01-19] MEDS: Polyethylene Glycol 3350 17 GM PACKET PO (08:00)
[2024-01-19] MEDS: Fludrocortisone Acetate 0.1 MG Tablet PO (08:01)
[2024-01-19] MEDS: Ciprofloxacin 250 MG Tablet PO ×2 (08:01→21:21)
[2024-01-19] MEDS: Arthritis Pain Compound 60 CLICK TUBE TOPICAL ×2 (08:01→21:22)
[2024-01-19] MEDS: Lactobacillis Acidophilus 1 CAP PO ×2 (08:01→21:21)
[2024-01-19] MEDS: Aspirin E.C. 81 MG Tablet PO (08:01)
[2024-01-19] MEDS: Multivitamins,Therapeutic Tablet 1 TABLET PO (08:01)
[2024-01-19] MEDS: Miconazole Nitrate 43 GM Bottle 1 APPLIC TOPICAL ×2 (08:06→21:21)
--- NOTE | 2024-01-19 09:47 | PCM.PROGNOTE ---
Subjective Subjective She will receive her last dose of Cipro tonight to complete 5 days of tx for UTI. Afebrile VSS-systolic blood pressure is frequently mildly elevated. Diastolics are within normal limits. Heart rate over the past 24 hours has ranged from 42-50. Maintaining appropriate oxygen saturation on RA Oral intake - FOOD good FLUIDS good. Has been in negative fluid balance for the past 48 hours. Weight is up approximately 2-1/2 pounds since admission and I suspect this is due to better hydration. Discussed with nursing - no problems that need addressed. Sleeping well at night. she is continent of stool now. Still with Rowland for accurate I&O. If the sodium and the creat are stable will DC the Rowland today. Reviewed the THERAPY notes Medication list reviewed. she received her last dose of Dexamethasone 1 mg daily today. Has 1 more dose ordered for Friday and then it will be DC'd. Kiesha denies headache, neck pain, lightheadedness, vertigo, chest pain, shortness of breath, cough, nausea/vomiting/abdominal pain and calf pain. She had some pain in her right hip yesterday and attributes that to sitting for too long. When she was able to get up and move around it went away. She denies soreness in her mouth, diarrhea and vaginal discharge or itching. Objective Data Objective Data Vital Signs: Vital Signs Temp Pulse Resp BP Pulse Ox O2 Del Method O2 Flow Rate 97.7 F L 42 L 16 142/51 H 96 Room Air 96 01/19/24 07:29 01/19/24 07:29 01/19/24 07:29 01/19/24 07:29 01/19/24 07:29 01/19/24 07:29 01/19/24 07:29 Oxygen Flow Rate (L/min) 96 Oxygen Delivery Method Room Air Weight: 188 lb 4.396 oz Body Mass Index (BMI) 29.5 Intake & Output: Intake and Output for Last 24 Hours 01/17/24 01/18/24 01/19/24 23:59 23:59 23:59 Intake Total 1460 / 1460 1200 / 1200 Output Total 3550 / 3550 2300 / 2300 1000 / 1000 Balance -2090 / -2090 -1100 / -1100 -1000 / -1000 Lab / Micro Data 01/19/24 10:27 04/15/24 10:27 Micro: Microbiology 01/12/24 06:21 Urine Catheter - Catheter Urine Culture - Final Presumptive E. coli Physical Exam Const alert, oriented x3 and no apparent distress General Appearance: cooperative HEENT moist oral mucous membranes Resp normal respiratory effort and normal air movement Resp Narrative: The right base is clear this morning. The left base has coarse crackles that persist after several deep breaths. Effort and Inspection: Negative for tachypneic Cardio regular rate, regular rhythm and no gallops GI normal to inspection, nondistended, normoactive bowel sounds, soft to palpation and non-tender GI Narrative: No guarding with palpation. Extremity no calf tenderness Extremity Narrative: She tells me she had some swelling in her ankles yesterday but she believes it was due to having her legs dependent for a long period of time. General Extremity: Negative for edema Skin General Skin Exam: no breakdown Rashes: no rashes Psych thought process normal, cooperative and affect normal Assessment & Plan Assessment/Plan (1) Physical debility: (2) Fall: QUALIFIERS: Encounter type: subsequent encounter Qualified Code(s): W19.XXXD - Unspecified fall, subsequent encounter (3) Contusion of spinal cord: (4) Cervical stenosis of spinal canal: (5) LeFort I fracture: QUALIFIERS: Encounter type: subsequent encounter Fracture type: closed (6) Hyponatremia: (7) Neuropathy: (8) Myopathy: (9) Bradycardia: PLAN: Plan 1. Continue therapy 2. CBC and BMP today 3. Check a cortisol level Frines morning prior to her dose of dexamethasone. 4. Continue Florinef for now. Charges/Coding Visit Charges Inpatient E&M: 10872 [facility] [place] Hosp L1
[2024-01-19 10:38] LABS: Absolute Lymphocyte Count 1.56 X10^3/uL (0.83-4.51); Absolute Neutrophil Count 6.2 X10^3/uL (2.0-7.7); Basophil# 0.04 X10^3/uL; Basophil% 0.5 % (0-1); Eosinophil# 0.24 X10^3/uL; Eosinophils% 2.8 % (0-5); Hematocrit 34.3 % (37-47); Hemoglobin 11.3 g/dL (12.0-15.0); Lymphocyte # 1.56 X10^3/ul (0.83-4.51); Lymphocyte % 18.1 % (19-41); Mean Corp Hgb Conc 32.9 g/dL (32-36); Mean Corpuscular Hgb 29.4 pg (27.0-32.0); Mean Corpuscular Volume 89.1 fL (81-99); Mean Platelet Vol. 10.5 fl (6.2-12.0); Monocyte# 0.47 X10^3/uL; Monocyte% 5.5 % (0-10); NRBC Flagged by Analyzer 0 % (0-5); Neutrophil # 6.16 X10^3/uL (2.7-7.7); Neutrophil % 71.4 % (47-70); Platelet Count 109 K/mm3 (150-450); RBC Distribution Width CV 15.3 % (11.6-14.6); Red Blood Count 3.85 M/mm3 (4.2-5.4); White Blood Count 8.6 K/mm3 (4.4-11.0)
[2024-01-19 11:10] LABS: Anion Gap 4 (5-15); BUN 27 mg/dL (7-18); BUN/Creat Ratio 37.5 RATIO (10-20); Calcium,Total 8.4 mg/dL (8.5-10.1); Chloride 104 mmol/L (98-107); Creatinine, Serum 0.72 mg/dL (0.55-1.02); EST Glomerular Filtration Rate 82 mL/min (>60); Est Glom Filt Rate - Afr Amer 99 mL/min (>60); Estimated Creatinine Clearance 59.82 ml/min; Glucose 99 mg/dL (74-106); Potassium 3.9 mmol/L (3.5-5.1); Sodium Level 131 mmol/L (136-145)
[2024-01-19] MEDS: Sodium Chloride 1 GM Tablet PO ×2 (12:52→21:21)
[2024-01-19 21:15] VITALS: BP 123/42; PULSE 49; RESP 15; TEMP 36.6; O2SAT 98
[2024-01-19] MEDS: Senna/Docusate Sodium 1 Tablet PO (21:20)
[2024-01-19] MEDS: Paroxetine 20 MG Tablet PO (21:21)
[2024-01-19] MEDS: Atorvastatin Calcium 20 MG Tablet PO (21:21)
[2024-01-19] MEDS: MELATONIN 3 MG TABLET PO (21:21)
[2024-01-19] MEDS: Acetaminophen 500 MG Tablet 1000 MG PO (21:24)
--- NOTE | 2024-01-20 02:10 | NURSING ---
Reviewed and agree with Erick THOMPSON, documentation and assessment charting.
[2024-01-20] MEDS: 0.9% Saline Lock 10 ML Syringe IV (06:26)
[2024-01-20] MEDS: Enoxaparin 40 MG/0.4 ML Syringe SC (06:35)
[2024-01-20 07:52] VITALS: BP 137/56; PULSE 42; RESP 16; TEMP 36.5; O2SAT 96
[2024-01-20] MEDS: NYSTATIN 500,000 UNIT/5 ML UDC 500000 UNIT PO ×3 (08:14→20:33)
[2024-01-20] MEDS: Senna/Docusate Sodium 1 Tablet PO ×2 (08:14→20:32)
[2024-01-20] MEDS: amLODIPine 2.5 MG Tablet PO (08:14)
[2024-01-20] MEDS: Multivitamins,Therapeutic Tablet 1 TABLET PO (08:14)
[2024-01-20] MEDS: Lactobacillis Acidophilus 1 CAP PO ×2 (08:14→20:32)
[2024-01-20] MEDS: Polyethylene Glycol 3350 17 GM PACKET PO (08:14)
[2024-01-20] MEDS: Pantoprazole Sodium 20 MG Tablet PO (08:14)
[2024-01-20] MEDS: Arthritis Pain Compound 60 CLICK TUBE TOPICAL ×2 (08:15→20:32)
[2024-01-20] MEDS: Cholecalciferol (VIT D3) 25 MCG TABLET (1,000 UNITS) 50 MCG PO (08:15)
[2024-01-20] MEDS: Aspirin E.C. 81 MG Tablet PO (08:15)
[2024-01-20] MEDS: Fludrocortisone Acetate 0.1 MG Tablet PO (08:15)
[2024-01-20] MEDS: Sodium Chloride 1 GM Tablet PO ×2 (08:15→20:35)
[2024-01-20] MEDS: Miconazole Nitrate 43 GM Bottle 1 APPLIC TOPICAL ×2 (08:19→20:33)
--- NOTE | 2024-01-20 11:25 | PCM.PROGNOTE ---
Subjective Subjective Afebrile VSS-blood pressure in the past 24 hours has ranged from 112/37 to 148/51. Current blood pressure is 137/56. Heart rate over the past 24 hours has ranged from 42 to 50. She will get no Dexamethasone today. Maintaining appropriate oxygen saturation on RA Oral intake - FOOD good FLUIDS good. Fluid balance yesterday was -430 which is better. Discussed with nursing - no problems that need addressed. Reviewed the THERAPY notes Medication list reviewed. Kiesha denies lightheadedness, increasing weakness, CP, SOB, N/V/abd pain, suprapubic pain, calf pain and pain in the neck. She is c/o pain in her back when she is leaning against the back of the chair. She had abrasions there at admission to the hospital from the fall. No fevers, sweats or shaking chills. Tolerated standing in the parallel bars yesterday and using her UE's to help pull her along to take a few steps. She tells me that standing and taking a few steps felt good. It did not increase pain in the back. Objective Data Objective Data Vital Signs: Vital Signs Temp Pulse Resp BP Pulse Ox O2 Del Method O2 Flow Rate 97.7 F L 42 L 16 137/56 H 96 Room Air 96 01/20/24 07:52 01/20/24 07:52 01/20/24 07:52 01/20/24 07:52 01/20/24 07:52 01/19/24 21:15 01/19/24 07:29 Oxygen Flow Rate (L/min) 96 Oxygen Delivery Method Room Air Weight: 188 lb 4.396 oz Body Mass Index (BMI) 29.5 Intake & Output: Intake and Output for Last 24 Hours 01/18/24 01/19/24 01/20/24 23:59 23:59 23:59 Intake Total 1200 / 1200 2320 / 2320 [id number] / [id number] Output Total 2300 / 2300 2750 / 2750 800 / 800 Balance -1100 / -1100 -430 / -430 [id number] / [id number] Lab / Micro Data 01/19/24 10:27 01/19/24 10:27 Micro: Microbiology 01/12/24 06:21 Urine Catheter - Catheter Urine Culture - Final Presumptive E. coli Physical Exam Const alert, oriented x3 and no apparent distress General Appearance: cooperative Resp Resp Narrative: Coarse crackles in the Left base......they do not change after several deep breaths. No wheezes and no tachypnea. Breathing is not labored and she has no conversational dyspnea. Cardio regular rate, regular rhythm and no gallops GI normal to inspection, nondistended, normoactive bowel sounds, soft to palpation and non-tender Extremity no calf tenderness Extremity Narrative: Mild ankle edema that is controlled with the FLORY hose. Skin Skin Narrative: She has 2 areas of healed abrasion over the spine in the mid-lower back. There is patchy erythema that is blanchable. There is no DC. She denies pruritus. The skini is dry in the areas. No DC. Appears to be a dermatitis, perhaps from a dressing? Neuro Neuro Narrative: Numbness in the BL hands is improving. Still with significant numbness of the R leg....better on the left. Strength is improving in the arms and the legs. Psych thought process normal, cooperative and affect normal Assessment & Plan Assessment/Plan (1) Physical debility: (2) Fall: QUALIFIERS: Encounter type: subsequent encounter Qualified Code(s): W19.XXXD - Unspecified fall, subsequent encounter (3) Contusion of spinal cord: (4) Cervical stenosis of spinal canal: (5) LeFort I fracture: QUALIFIERS: Encounter type: subsequent encounter Fracture type: closed (6) Hyponatremia: (7) Neuropathy: (8) Myopathy: (9) Bradycardia: (10) Allergic dermatitis: PLAN: Plan 1. Continue therapy 2. I spoke with Dr. Johnson from neurosurgery today and she said it is OK for Kiesha to use her UE's to help pull her along when standing and taking steps. She can start working with some light weights and advance as tolerated. 3. Lab ordered for tomorrow. 4. Order a antifungal/steroid cream for the suspected allergic dermatitis on her back. Charges/Coding Visit Charges Inpatient E&M: 65696 Init Hosp L1
[2024-01-20] MEDS: Clotrimazole/Betamethasone 1 Tube 1 APPLIC TOPICAL ×2 (16:17→20:34)
[2024-01-20 20:20] VITALS: BP 118/45; PULSE 45; RESP 16; TEMP 36.2; O2SAT 96
[2024-01-20] MEDS: Atorvastatin Calcium 20 MG Tablet PO (20:32)
[2024-01-20] MEDS: Paroxetine 20 MG Tablet PO (20:33)
[2024-01-20] MEDS: Acetaminophen 500 MG Tablet 1000 MG PO (20:38)
[2024-01-20] MEDS: MELATONIN 3 MG TABLET PO (20:38)
--- NOTE | 2024-01-21 03:27 | NURSING ---
Reviewed and agree with Erick THOMPSON, documentation and assessment charting.
[2024-01-21 05:59] LABS: Hematocrit 32.7 % (37-47); Hemoglobin 10.6 g/dL (12.0-15.0); Mean Corp Hgb Conc 32.4 g/dL (32-36); Mean Corpuscular Hgb 29.1 pg (27.0-32.0); Mean Corpuscular Volume 89.8 fL (81-99); Mean Platelet Vol. 10.4 fl (6.2-12.0); Platelet Count 100 K/mm3 (150-450); RBC Distribution Width CV 15.4 % (11.6-14.6); RBC Distribution Width SD 50.7 fl (35.1-43.9); Red Blood Count 3.64 M/mm3 (4.2-5.4); White Blood Count 5.7 K/mm3 (4.4-11.0)
[2024-01-21 06:00] VITALS: BMI 29.6
[2024-01-21] MEDS: Enoxaparin 40 MG/0.4 ML Syringe SC (06:16)
[2024-01-21 06:24] LABS: Anion Gap 3 (5-15); BUN 26 mg/dL (7-18); BUN/Creat Ratio 34.9 RATIO (10-20); Calcium,Total 8.4 mg/dL (8.5-10.1); Chloride 101 mmol/L (98-107); Creatinine, Serum 0.74 mg/dL (0.55-1.02); EST Glomerular Filtration Rate 79 mL/min (>60); Est Glom Filt Rate - Afr Amer 96 mL/min (>60); Estimated Creatinine Clearance 59.82 ml/min; Glucose 91 mg/dL (74-106); Potassium 3.8 mmol/L (3.5-5.1); Sodium Level 133 mmol/L (136-145)
[2024-01-21] MEDS: 0.9% Saline Lock 10 ML Syringe IV ×2 (06:28→13:27)
[2024-01-21 07:39] VITALS: BP 124/52; PULSE 41; RESP 16; TEMP 36.6; O2SAT 98
[2024-01-21] MEDS: Clotrimazole/Betamethasone 1 Tube 1 APPLIC TOPICAL ×2 (08:32→21:59)
[2024-01-21] MEDS: NYSTATIN 500,000 UNIT/5 ML UDC 500000 UNIT PO ×4 (08:32→20:58)
[2024-01-21] MEDS: Polyethylene Glycol 3350 17 GM PACKET PO (08:32)
[2024-01-21] MEDS: Multivitamins,Therapeutic Tablet 1 TABLET PO (08:33)
[2024-01-21] MEDS: Pantoprazole Sodium 20 MG Tablet PO (08:33)
[2024-01-21] MEDS: Cholecalciferol (VIT D3) 25 MCG TABLET (1,000 UNITS) 50 MCG PO (08:33)
[2024-01-21] MEDS: Fludrocortisone Acetate 0.1 MG Tablet PO (08:33)
[2024-01-21] MEDS: Arthritis Pain Compound 60 CLICK TUBE TOPICAL ×2 (08:33→20:59)
[2024-01-21] MEDS: amLODIPine 2.5 MG Tablet PO (08:33)
[2024-01-21] MEDS: Sodium Chloride 1 GM Tablet PO ×2 (08:33→20:58)
[2024-01-21] MEDS: Lactobacillis Acidophilus 1 CAP PO ×2 (08:33→20:59)
[2024-01-21] MEDS: Aspirin E.C. 81 MG Tablet PO (08:33)
[2024-01-21] MEDS: Miconazole Nitrate 43 GM Bottle 1 APPLIC TOPICAL ×2 (08:41→21:06)
--- NOTE | 2024-01-21 10:56 | PCM.PROGNOTE ---
Subjective Subjective Afebrile VSS-heart rate has ranged from 41-45 over the past 24 hours. Blood pressure is stable. Maintaining appropriate oxygen saturation on RA Oral intake - FOOD good FLUIDS good. Fluid balance yesterday was -420 and overnight it was -475. Doing better on Florinef but, still persistently in negative fluid balance. Discussed with nursing - Heart monitor was placed by nursing yesterday. Reviewed the THERAPY notes Medication list reviewed. All lab from this morning was personally reviewed. White blood cell count is 5.7 and hemoglobin is 10.6, down from 11.3 on 01/19/2024. Platelet count is decreased at 100 but stable. I suspect this is related to Enoxaparin. Sodium is low at 133 but stable. Potassium is 3.8. The BUN is 26 with a creatinine of 0.74. BUN/creatinine ratio is down to 34.9 but still very high. Calcium is low at 8.4 but when corrected for hypoalbuminemia is within normal limits. Cortisol today is normal at 5.2 and the ACTH is pending. Denies cephalgia, lightheadedness, vertigo, Chest pain, shortness of breath, cough, dysuria. No pain in her mouth and no painful swallowing. Denies vaginal itching or discharge. Objective Data Objective Data Vital Signs: Vital Signs Temp Pulse Resp BP Pulse Ox O2 Del Method O2 Flow Rate 97.9 F 41 L 16 124/52 H 98 Room Air 96 01/21/24 07:39 01/21/24 07:39 01/21/24 07:39 01/21/24 07:39 01/21/24 07:39 01/21/24 07:39 01/19/24 07:29 Oxygen Flow Rate (L/min) 96 Oxygen Delivery Method Room Air Weight: 188 lb 4.396 oz Body Mass Index (BMI) 29.5 Intake & Output: Intake and Output for Last 24 Hours 01/19/24 01/20/24 01/21/24 23:59 23:59 23:59 Intake Total 2320 / 2320 1630 / 1630 150 / 150 Output Total 2750 / 2750 2049 / 2049 625 / 625 Balance -430 / -430 -420 / -420 -475 / -475 Lab / Micro Data 01/21/24 05:40 01/21/24 05:40 Labs: Laboratory Results - last 24 hr 01/21/24 05:40: WBC 5.7, RBC 3.64 L, Hgb 10.6 L, Hct 32.7 L, MCV 89.8, MCH 29.1, MCHC 32.4, RDW Std Deviation 50.7 H, RDW Coeff of Danny 15.4 H, Plt Count 100 L, MPV 10.4, Sodium 133 L, Potassium 3.8, Chloride 101, Carbon Dioxide 29.0, Anion Gap 3 L, BUN 26 H, Creatinine 0.74, Estim Creat Clear Calc 59.82, Est GFR (MDRD) Af Amer 96, Est GFR (MDRD) Non-Af 79, BUN/Creatinine Ratio 34.9 H, Glucose 91, Calcium 8.4 L, Cortisol 5.20 Micro: Microbiology 01/12/24 06:21 Urine Catheter - Catheter Urine Culture - Final Presumptive E. coli Physical Exam Const alert, oriented x3 and no apparent distress Resp normal respiratory effort and normal air movement Resp Narrative: Coarse crackles in the left base are unchanged. Effort and Inspection: Negative for tachypneic Cardio regular rhythm and no gallops Cardio Narrative: Event monitor is in place. GI normal to inspection, nondistended, normoactive bowel sounds, soft to palpation and non-tender Assessment & Plan Assessment/Plan (1) Physical debility: (2) Fall: QUALIFIERS: Encounter type: subsequent encounter Qualified Code(s): W19.XXXD - Unspecified fall, subsequent encounter (3) Contusion of spinal cord: (4) Cervical stenosis of spinal canal: (5) LeFort I fracture: QUALIFIERS: Encounter type: subsequent encounter Fracture type: closed (6) Hyponatremia: (7) Neuropathy: (8) Myopathy: (9) Bradycardia: (10) Allergic dermatitis: PLAN: Plan 1. Continue therapy 2. The AM cortisol is within normal limits. Await the results of the ACTH and if it is within normal limits then we will not need additional taper of dexamethasone. 3. Urine output still exceeds input show will continue salt tablets and Florinef. Charges/Coding Visit Charges Inpatient E&M: 01720 Subs Hosp L1
[2024-01-21 20:07] VITALS: BP 121/53; PULSE 45; RESP 16; TEMP 36.6; O2SAT 96
[2024-01-21] MEDS: Paroxetine 20 MG Tablet PO (20:58)
[2024-01-21] MEDS: Atorvastatin Calcium 20 MG Tablet PO (20:59)
[2024-01-21] MEDS: Senna/Docusate Sodium 1 Tablet PO (21:00)
[2024-01-21] MEDS: MELATONIN 3 MG TABLET PO (21:02)
[2024-01-21] MEDS: Acetaminophen 500 MG Tablet 1000 MG PO (21:05)
[2024-01-21 22:00] VITALS: PULSE 45
[2024-01-22] MEDS: Enoxaparin 40 MG/0.4 ML Syringe SC (05:31)
[2024-01-22] MEDS: Clotrimazole/Betamethasone 1 Tube 1 APPLIC TOPICAL ×2 (05:32→21:22)
[2024-01-22] MEDS: Multivitamins,Therapeutic Tablet 1 TABLET PO (07:49)
[2024-01-22] MEDS: Sodium Chloride 1 GM Tablet PO ×2 (07:49→21:20)
[2024-01-22] MEDS: Aspirin E.C. 81 MG Tablet PO (07:49)
[2024-01-22] MEDS: Cholecalciferol (VIT D3) 25 MCG TABLET (1,000 UNITS) 50 MCG PO (07:49)
[2024-01-22] MEDS: Senna/Docusate Sodium 1 Tablet PO ×2 (07:49→21:33)
[2024-01-22] MEDS: Pantoprazole Sodium 20 MG Tablet PO (07:49)
[2024-01-22] MEDS: Fludrocortisone Acetate 0.1 MG Tablet PO (07:49)
[2024-01-22] MEDS: Lactobacillis Acidophilus 1 CAP PO ×2 (07:50→21:21)
[2024-01-22] MEDS: amLODIPine 2.5 MG Tablet PO (07:50)
[2024-01-22] MEDS: Arthritis Pain Compound 60 CLICK TUBE TOPICAL ×2 (07:50→21:21)
[2024-01-22] MEDS: Polyethylene Glycol 3350 17 GM PACKET PO (07:50)
[2024-01-22] MEDS: Miconazole Nitrate 43 GM Bottle 1 APPLIC TOPICAL ×2 (07:51→21:46)
[2024-01-22 07:54] VITALS: BP 141/51; PULSE 45; RESP 16; TEMP 36.2; O2SAT 96
[2024-01-22] MEDS: Acetaminophen 500 MG Tablet 1000 MG PO ×2 (09:15→21:45)
--- NOTE | 2024-01-22 09:47 | PN_ITS ---
Subjective Subjective Kiesha was seen on team rounds today Afebrile VSS -heart rate over the past 24 hours has ranged from 41-45 and she is off dexamethasone. Blood pressure has ranged from 118/45 to 141/51. Maintaining appropriate oxygen saturation on RA Oral intake - FOOD good FLUIDS good.....still in negative fluid balance yesterday however wt is not going down and the BUN and CREAT are stable. Suspect we are not recording every thing she is drinking. Discussed with nursing - no problems that need addressed Reviewed the THERAPY notes -she is not ambulating in the parallel bars. Medication list reviewed. Kiesha is complaining of some pain in her right thigh and right calf today. She denies chest pain, lightheadedness and shortness of breath. She also denies palpitations, nausea/vomiting, suprapubic pain and cephalgia. She tells me the pain in her low back is somewhat better today. She has some pain in the left tr apezius ridge......there is mild spasm of the trapezius.....may be due to pressing down on the parallel bars when ambulating. Objective Data Objective Data Vital Signs: Vital Signs Temp Pulse Resp BP Pulse Ox O2 Del Method O2 Flow Rate 97.2 F L 45 L 16 141/51 H 96 Room Air 96 01/22/24 07:54 01/22/24 07:54 01/22/24 07:54 01/22/24 07:54 01/22/24 07:54 01/22/24 07:54 01/19/24 07:29 Oxygen Flow Rate (L/min) 96 Oxygen Delivery Method Room Air Weight: 189 lb Body Mass Index (BMI) 29.6 Intake & Output: Intake and Output for Last 24 Hours 01/20/24 01/21/24 01/22/24 23:59 23:59 23:59 Intake Total 1630 / 1630 1280 / 1280 360 / 360 Output Total 2049 / 2049 1825 / 1825 1150 / 1150 Balance -420 / -420 -545 / -545 -790 / -790 Lab / Micro Data 01/21/24 05:40 01/21/24 05:40 Micro: Microbiology 01/12/24 06:21 Urine Catheter - Catheter Urine Culture - Final Presumptive E. coli Physical Exam Const alert, oriented x3 and no apparent distress General Appearance: cooperative Orientation / Consciousness: Negative for confused Resp normal respiratory effort and normal air movement Resp Narrative: Coarse crackles in the left base are unchanged. Effort and Inspection: Negative for tachypneic Cardio regular rhythm and no gallops Cardio Narrative: Event monitor is in place. Rate: bradycardia GI normal to inspection, nondistended, normoactive bowel sounds, soft to palpation and non-tender Extremity Extremity Narrative: Some calf tenderness on the right with mild increase in circumference compared to the left. She also has increased circumference in the R thigh when compared to the left. Trace pitting edema of the R ankle. No redness or increased warmth to touch. Skin Wound Narrative: The well circumscribed rash on the back is fading when compared to yesterday. She denies any pain today with palpation of the area. It is not as dry today. NO DC and no openings in the skin. Psych cooperative and affect normal Psych Narrative: Making good eye contact. Appearance: appropriate Assessment & Plan Assessment/Plan (1) Physical debility: (2) Fall: QUALIFIERS: Encounter type: subsequent encounter Qualified Code(s): W19.XXXD - Unspecified fall, subsequent encounter (3) Contusion of spinal cord: (4) Cervical stenosis of spinal canal: (5) LeFort I fracture: QUALIFIERS: Encounter type: subsequent encounter Fracture type: closed (6) Hyponatremia: (7) Neuropathy: (8) Myopathy: (9) Bradycardia: (10) Allergic dermatitis: (11) Right calf pain: PLAN: Plan 1. Continue therapy 2. Venous ultrasound of the right lower extremity today 3. DC Rowland catheter 4. Continue the steroid/antifungal cream to the back BID for a total of 7 days. 5. Cortisol yesterday was normal. ACTH is still pending. Charges/Coding Visit Charges Inpatient E&M: 64055 Subs Hosp L1
--- NOTE | 2024-01-22 10:11 | VDLE_ITS ---
Reason For Study: RLE Pain RIGHT LEFT GSV is normal. CFV is compressible, spontaneous, phasic, CFV is compressible, spontaneous, phasic, competent, and demonstrates normal competent and demonstrates normal augmentation. augmentation. FV is compressible, spontaneous, phasic, competent and demonstrates normal augmentation. POP V is compressible, spontaneous, and phasic. T/P Trunk is compressible. PTV is compressible. RT PerV is compressible. Acute deep vein thrombosis is noted in the Soleal V. It is dilated and NONCOMPRESSIBLE. Procedure This is a venous duplex using B-mode, color flow and spectral Doppler. Exam performed portable in patient room. The exam was diagnostic. A preliminary report was called and/or faxed to Dr. Maya / cigarette carton sealer Paula. VL/Venous Duplex US, Unilateral Interpretation Summary Acute deep vein thrombosis is noted in the right soleus vein. Ordering Physician: Kiesha Maya Referring Physician: Angelika Monsivais M.D. Performed By: Magno Gutierrez RVT and Student
[2024-01-22 13:52] LABS: Adrenocorticotropic Hormone 28.5 pg/mL (7.2-63.3)
--- NOTE | 2024-01-22 15:44 | CASEMGMT ---
Social Work IDT met with patient and her sister and pt was on the phone. Discussed patient's progress in therapy. Pt is making progress. Educated to [employer] benefits and NRD of 01/26/24. Pt goal remains to return home with . SW will continue to follow and assist with DC planning. Magnolia MAHAN
[2024-01-22] MEDS: MELATONIN 3 MG TABLET PO (21:19)
[2024-01-22] MEDS: Atorvastatin Calcium 20 MG Tablet PO (21:20)
[2024-01-22] MEDS: Paroxetine 20 MG Tablet PO (21:33)
[2024-01-22 22:00] VITALS: BP 109/51; PULSE 49; RESP 16; TEMP 37.1; O2SAT 98
[2024-01-23] MEDS: Enoxaparin 40 MG/0.4 ML Syringe SC (05:28)
[2024-01-23] MEDS: Clotrimazole/Betamethasone 1 Tube 1 APPLIC TOPICAL ×2 (05:29→20:26)
[2024-01-23] MEDS: Sodium Chloride 1 GM Tablet PO ×2 (08:06→20:27)
[2024-01-23] MEDS: Cholecalciferol (VIT D3) 25 MCG TABLET (1,000 UNITS) 50 MCG PO (08:06)
[2024-01-23] MEDS: Multivitamins,Therapeutic Tablet 1 TABLET PO (08:06)
[2024-01-23] MEDS: Senna/Docusate Sodium 1 Tablet PO ×2 (08:06→20:27)
[2024-01-23] MEDS: Aspirin E.C. 81 MG Tablet PO (08:07)
[2024-01-23] MEDS: Pantoprazole Sodium 20 MG Tablet PO (08:07)
[2024-01-23] MEDS: Fludrocortisone Acetate 0.1 MG Tablet PO (08:07)
[2024-01-23] MEDS: amLODIPine 2.5 MG Tablet PO (08:07)
[2024-01-23] MEDS: Polyethylene Glycol 3350 17 GM PACKET PO (08:07)
[2024-01-23] MEDS: Lactobacillis Acidophilus 1 CAP PO ×2 (08:07→20:26)
[2024-01-23] MEDS: Miconazole Nitrate 43 GM Bottle 1 APPLIC TOPICAL ×2 (08:08→20:29)
[2024-01-23] MEDS: Arthritis Pain Compound 60 CLICK TUBE TOPICAL ×2 (08:08→20:26)
[2024-01-23 09:08] VITALS: BP 135/84; PULSE 87; RESP 17; TEMP 36.4; O2SAT 94
--- NOTE | 2024-01-23 10:35 | PN_ITS ---
Subjective Subjective Afebrile VSS - HR was 87 today. Has been in the 40's since admission. BP is controlled and stable. Maintaining appropriate oxygen saturation on RA Oral intake - FOOD good FLUIDS good Discussed with nursing - Had to be straight cath'd today for 875 cc Medication list reviewed. ACTH was 28.5 which is WNL she tells me that the left shoulder pain is better with the arthritis pain cream. She ambulated in the horner today with a FWW and tells me it felt good to walk. She denies radicular pain in the arms and the legs. Still with numbness.....worst in the RLE. 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 Denies chest pain, shortness of breath, cough, nausea/vomiting/abdominal pain, diarrhea/constipation, dysuria, suprapubic pain and denies calf tenderness today. Venous ultrasound yesterday showed an acute deep vein thrombosis in the right soleus vein in the calf. Plan on repeating a venous US in 7-10 days to make sure that it is not propagating. She has been on Lovenox......not sure when the DVT developed. Objective Data Objective Data Vital Signs: Vital Signs Temp Pulse Resp BP Pulse Ox O2 Del Method O2 Flow Rate 97.5 F L 87 17 135/84 H 94 Room Air 96 01/23/24 09:08 01/23/24 09:08 01/23/24 09:08 01/23/24 09:08 01/23/24 09:08 01/23/24 09:08 01/19/24 07:29 Oxygen Flow Rate (L/min) 96 Oxygen Delivery Method Room Air Weight: 189 lb Body Mass Index (BMI) 29.6 Intake & Output: Intake and Output for Last 24 Hours 01/21/24 01/22/24 01/23/24 23:59 23:59 23:59 Intake Total 1280 / 1280 1160 / 1160 560 / 560 Output Total 1825 / 1825 2550 / 2550 875 / 875 Balance -545 / -545 -1390 / -1390 -315 / -315 Lab / Micro Data 01/21/24 05:40 01/21/24 05:40 Labs: Laboratory Results - last 24 hr 01/21/24 05:40: ACTH 28.5 Micro: Microbiology 01/12/24 06:21 Urine Catheter - Catheter Urine Culture - Final Presumptive E. coli Radiography Diagnostic Testing: Radiology Impression Venous Doppler Study 01/22/24 10:11 Interpretation Summary Acute deep vein thrombosis is noted in the right soleus vein. Ordering Physician: Kiesha Maya Referring Physician: Angelika Monsivais M.D. Performed By: Magno Gutierrez RVT and Student Physical Exam Const alert, oriented x3 and no apparent distress Resp normal respiratory effort and normal air movement Resp Narrative: Coarse crackles in the left base are unchanged. Effort and Inspection: Negative for tachypneic Cardio regular rhythm and no gallops Cardio Narrative: Event monitor is in place. GI normal to inspection, nondistended, normoactive bowel sounds, soft to palpation and non-tender Extremity General Extremity: edema right (trace edema of the R ankle....possible to the DVT in the soleus vein) Skin Wound Narrative: The rash on the low back is less scaly. She denies pain with palpation of the rash but she has paravertebral pain on either side of the rash. She denies pruritus. The rash is less red. Assessment & Plan Assessment/Plan (1) Physical debility: (2) Fall: QUALIFIERS: Encounter type: subsequent encounter Qualified Code(s): W19.XXXD - Unspecified fall, subsequent encounter (3) Contusion of spinal cord: (4) Cervical stenosis of spinal canal: (5) LeFort I fracture: QUALIFIERS: Encounter type: subsequent encounter Fracture type: closed (6) Hyponatremia: (7) Neuropathy: (8) Myopathy: (9) Bradycardia: (10) Allergic dermatitis: PLAN: NOt sure this is allergic dermatitis or contact dermatitis. Will complete 5 days of steroid/antifungal cream and if it is unchanged recommend dermatology for possible bx at [place]. PLAN: Plan 1. Continue therapy 2. BMP and CBC on Friday a.m. 3. No changes to the drug regimen today. 4. Continue salt tabs and Florinef for now. Watch closely for any sign of mental status change. Charges/Coding Visit Charges Inpatient E&M: 87835 Subs Hosp L1
--- NOTE | 2024-01-23 14:36 | CHAPLAIN ---
Type of Pastoral Visit _x__ Initial Visit ___ Follow-up Visit ___ On-call Visit ___ General Patient Visit ___ Spiritual Assessment ___ Family Conference ___ Bereavement ___ Rapid Response ___ Code Blue ___ Other (describe below) Pastoral Care Referral From _x__ Patient ___ Family ___ Nurse ___ Physician ___ Manager Combination ___ Forest Fire Control Officer ___ Other (describe below) Sacrament/Intervention _x__ Active listening ___ Anointing ___ Catholic ___ Bereavement ___ Communion _x__ Felecia exploration ___ _x__ Life review _x__ Prayer ___ Reconciliation ___ Sacrament of Sick ___ Supportive presence ___ Wedding ___ Other (describe below) Pastoral Comments patient describes her injury and states that she just faces it as a part of life and get through it; pt speaks of felecia in God and his plan which helps her accept what has happened and expects his help; 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
[2024-01-23] MEDS: Atorvastatin Calcium 20 MG Tablet PO (20:26)
[2024-01-23] MEDS: Paroxetine 20 MG Tablet PO (20:26)
[2024-01-23] MEDS: MELATONIN 3 MG TABLET PO (20:27)
[2024-01-23] MEDS: Acetaminophen 500 MG Tablet 1000 MG PO (20:28)
[2024-01-23 21:23] VITALS: BP 123/49; PULSE 47; RESP 17; TEMP 37.1; O2SAT 100
[2024-01-24] MEDS: Enoxaparin 40 MG/0.4 ML Syringe SC (05:42)
[2024-01-24] MEDS: Clotrimazole/Betamethasone 1 Tube 1 APPLIC TOPICAL ×2 (05:43→21:15)
[2024-01-24] MEDS: Aspirin E.C. 81 MG Tablet PO (08:13)
[2024-01-24] MEDS: amLODIPine 2.5 MG Tablet PO (08:13)
[2024-01-24] MEDS: Cholecalciferol (VIT D3) 25 MCG TABLET (1,000 UNITS) 50 MCG PO (08:13)
[2024-01-24] MEDS: Fludrocortisone Acetate 0.1 MG Tablet PO (08:13)
[2024-01-24] MEDS: Multivitamins,Therapeutic Tablet 1 TABLET PO (08:14)
[2024-01-24] MEDS: Lactobacillis Acidophilus 1 CAP PO ×2 (08:14→21:14)
[2024-01-24] MEDS: Sodium Chloride 1 GM Tablet PO ×2 (08:15→21:14)
[2024-01-24] MEDS: Pantoprazole Sodium 20 MG Tablet PO (08:15)
[2024-01-24] MEDS: Senna/Docusate Sodium 1 Tablet PO (08:16)
[2024-01-24] MEDS: Miconazole Nitrate 43 GM Bottle 1 APPLIC TOPICAL ×2 (08:21→21:15)
[2024-01-24 08:30] VITALS: BP 121/50; PULSE 45; RESP 17; TEMP 36.6; O2SAT 97
[2024-01-24] MEDS: Arthritis Pain Compound 60 CLICK TUBE TOPICAL ×2 (09:58→21:15)
--- NOTE | 2024-01-24 14:00 | NURSING ---
Large incontinence of urine and staff assisted with care. Patient sat on BSC and able to have a BM but no urination at this time. Bladder scan post incontinence showed 2 cc. Patient not distended and voiced no concerns. Will continue to monitor.
[2024-01-24] MEDS: 0.9% Saline Lock 10 ML Syringe IV (14:32)
[2024-01-24 19:46] VITALS: BP 137/42; PULSE 49; RESP 17; TEMP 37.2; O2SAT 98
[2024-01-24] MEDS: Atorvastatin Calcium 20 MG Tablet PO (21:14)
[2024-01-24] MEDS: Paroxetine 20 MG Tablet PO (21:15)
[2024-01-24] MEDS: Acetaminophen 500 MG Tablet 1000 MG PO (22:18)
[2024-01-24] MEDS: MELATONIN 3 MG TABLET PO (22:22)
[2024-01-25] MEDS: Clotrimazole/Betamethasone 1 Tube 1 APPLIC TOPICAL ×2 (06:09→21:09)
[2024-01-25] MEDS: Enoxaparin 40 MG/0.4 ML Syringe SC (06:09)
[2024-01-25] MEDS: amLODIPine 2.5 MG Tablet PO (08:21)
[2024-01-25] MEDS: Fludrocortisone Acetate 0.1 MG Tablet PO (08:21)
[2024-01-25] MEDS: Sodium Chloride 1 GM Tablet PO ×2 (08:21→21:10)
[2024-01-25] MEDS: Pantoprazole Sodium 20 MG Tablet PO (08:21)
[2024-01-25] MEDS: Cholecalciferol (VIT D3) 25 MCG TABLET (1,000 UNITS) 50 MCG PO (08:21)
[2024-01-25] MEDS: Aspirin E.C. 81 MG Tablet PO (08:21)
[2024-01-25] MEDS: Multivitamins,Therapeutic Tablet 1 TABLET PO (08:21)
[2024-01-25 08:45] VITALS: BP 138/45; PULSE 45; RESP 15; TEMP 36.7; O2SAT 98
[2024-01-25] MEDS: Senna/Docusate Sodium 1 Tablet PO ×2 (10:21→21:10)
[2024-01-25] MEDS: Miconazole Nitrate 43 GM Bottle 1 APPLIC TOPICAL ×2 (10:22→21:16)
[2024-01-25 19:28] VITALS: BP 124/45; PULSE 57; RESP 17; TEMP 36.8; O2SAT 97
[2024-01-25] MEDS: Arthritis Pain Compound 60 CLICK TUBE TOPICAL (21:08)
[2024-01-25] MEDS: Paroxetine 20 MG Tablet PO (21:09)
[2024-01-25] MEDS: Atorvastatin Calcium 20 MG Tablet PO (21:09)
[2024-01-25] MEDS: MELATONIN 3 MG TABLET PO (21:11)
[2024-01-25] MEDS: Acetaminophen 500 MG Tablet 1000 MG PO (21:15)
[2024-01-25] MEDS: 0.9% Saline Lock 10 ML Syringe IV (21:16)
--- NOTE | 2024-01-26 02:03 | NURSING ---
Reviewed and agree with Kimberly THOMPSON, documentation and assessment charting.
[2024-01-26] MEDS: Clotrimazole/Betamethasone 1 Tube 1 APPLIC TOPICAL (05:43)
[2024-01-26] MEDS: Enoxaparin 40 MG/0.4 ML Syringe SC (05:43)
[2024-01-26 06:02] LABS: Hematocrit 31.2 % (37-47); Hemoglobin 10.2 g/dL (12.0-15.0); Mean Corp Hgb Conc 32.7 g/dL (32-36); Mean Corpuscular Hgb 29.4 pg (27.0-32.0); Mean Corpuscular Volume 89.9 fL (81-99); Mean Platelet Vol. 10.6 fl (6.2-12.0); POSITIVE COUNT YES; Platelet Count 98 K/mm3 (150-450); RBC Distribution Width CV 15.5 % (11.6-14.6); RBC Distribution Width SD 51.1 fl (35.1-43.9); Red Blood Count 3.47 M/mm3 (4.2-5.4)
[2024-01-26 06:28] LABS: Anion Gap 5 (5-15); BUN 15 mg/dL (7-18); BUN/Creat Ratio 22.7 RATIO (10-20); Calcium,Total 8.6 mg/dL (8.5-10.1); Chloride 102 mmol/L (98-107); Creatinine, Serum 0.66 mg/dL (0.55-1.02); EST Glomerular Filtration Rate 91 mL/min (>60); Est Glom Filt Rate - Afr Amer 110 mL/min (>60); Estimated Creatinine Clearance 59.93 ml/min; Glucose 92 mg/dL (74-106); Potassium 3.7 mmol/L (3.5-5.1); Sodium Level 135 mmol/L (136-145)
[2024-01-26 07:23] VITALS: BP 131/45; PULSE 43; RESP 15; TEMP 36.6; O2SAT 97
[2024-01-26] MEDS: Cholecalciferol (VIT D3) 25 MCG TABLET (1,000 UNITS) 50 MCG PO (08:26)
[2024-01-26] MEDS: Sodium Chloride 1 GM Tablet PO ×2 (08:27→21:08)
[2024-01-26] MEDS: Multivitamins,Therapeutic Tablet 1 TABLET PO (08:27)
[2024-01-26] MEDS: Fludrocortisone Acetate 0.1 MG Tablet PO (08:27)
[2024-01-26] MEDS: amLODIPine 2.5 MG Tablet PO (08:27)
[2024-01-26] MEDS: Aspirin E.C. 81 MG Tablet PO (08:27)
[2024-01-26] MEDS: Pantoprazole Sodium 20 MG Tablet PO (08:27)
[2024-01-26] MEDS: Senna/Docusate Sodium 1 Tablet PO ×2 (08:28→21:08)
[2024-01-26] MEDS: Miconazole Nitrate 43 GM Bottle 1 APPLIC TOPICAL ×2 (08:34→21:09)
--- NOTE | 2024-01-26 11:49 | PCM.PROGNOTE ---
Subjective Subjective Afebrile VSS-heart rate has ranged from 43-57 over the past 24 hours. The mean arterial pressure has ranged from 71-76. Maintaining appropriate oxygen saturation on RA Oral intake - FOOD good FLUIDS good Urinoe output is nearly even now. Will continue the salt tabs and the Florinef. Sodium is up to 135 today and the BUN/creat ratio is improving. Discussed with nursing - She is retaining urine. Suspect this is related to the spinal cord contusion. Reviewed the THERAPY notes Medication list reviewed. Paroxetine may be contributing to the low sodium somewhat. All lab drawn this morning was personally reviewed. The white blood cell count is low at 4.0 and the hemoglobin is 10.2 which is down from 11.3 on 01/19/2024. Platelets remain low at 98,000 but they are stable. Sodium is up to 135 and the potassium is 3.7. The BUN is 15 with a creatinine of 0.66 which is stable. The BUN/creatinine ratio is 22.7 which is down from 37.5 on 01/19/2024. Calcium is within normal limits. Kiesha tells me that she feels that her legs are getting stronger. The pain in the left shoulder/trapezius ridge has resolved. She is ambulating with a FWW and tells me that it feels good to be walking. Denies cephalgia, radicular pain into her arms and legs, chest pain, shortness of breath, cough, nausea/vomiting/abdominal pain, dysuria and calf tenderness. Objective Data Objective Data Vital Signs: Vital Signs Temp Pulse Resp BP Pulse Ox O2 Del Method O2 Flow Rate 98 F 43 L 15 131/45 H 97 Room Air 96 01/26/24 07:23 01/26/24 07:23 01/26/24 07:23 01/26/24 07:23 01/26/24 07:23 01/26/24 07:23 01/19/24 07:29 Oxygen Flow Rate (L/min) 96 Oxygen Delivery Method Room Air Weight: 189 lb Body Mass Index (BMI) 29.6 Intake & Output: Intake and Output for Last 24 Hours 01/24/24 01/25/24 01/26/24 23:59 23:59 23:59 Intake Total 1715 / 1715 1780 / 1780 600 / 600 Output Total 1250 / 1250 1800 / 1800 725 / 725 Balance 465 / 465 -20 / -20 -125 / -125 Lab / Micro Data 01/26/24 05:33 01/26/24 05:33 Labs: Laboratory Results - last 24 hr 01/26/24 05:33: WBC 4.0 L, RBC 3.47 L, Hgb 10.2 L, Hct 31.2 L, MCV 89.9, MCH 29.4, MCHC 32.7, RDW Std Deviation 51.1 H, RDW Coeff of Danny 15.5 H, Plt Count 98 L, MPV 10.6, Sodium 135 L, Potassium 3.7, Chloride 102, Carbon Dioxide 28.0, Anion Gap 5, BUN 15, Creatinine 0.66, Estim Creat Clear Calc 59.93, Est GFR (MDRD) Af Amer 110, Est GFR (MDRD) Non-Af 91, BUN/Creatinine Ratio 22.7 H, Glucose 92, Calcium 8.6 Micro: Microbiology 01/12/24 06:21 Urine Catheter - Catheter Urine Culture - Final Presumptive E. coli Physical Exam Const alert, oriented x3 and no apparent distress HEENT HEENT Narrative: There is swelling on the left side od the nose over the ala. It is red and there is a scab over the area. With compression a small amount of pus was expressed and some blood. will apply Bactroban Intranasal and on the Left nasal ala BID for 7 days. Resp normal respiratory effort and normal air movement Resp Narrative: Coarse crackles in the left base are unchanged. Effort and Inspection: Negative for tachypneic Cardio regular rhythm and no gallops Cardio Narrative: Event monitor is in place. GI normal to inspection, nondistended, normoactive bowel sounds, soft to palpation and non-tender Extremity no calf tenderness Extremity Narrative: Trace of pitting edema in the ankles BL.....controlled with elevation and compression. General Extremity: edema Skin Skin Narrative: The rash on the low back is still reddened and well circumscribed. It is not raised. It is no longer scaly. It is not pruritic. There is no increased warmth to touch and no pain with palpation. She has pain in the paravertebral muscles in the lumbar area. General Skin Exam: no breakdown Wound Narrative: Psych thought process normal and affect normal Appearance: appropriate Assessment & Plan Assessment/Plan (1) Physical debility: (2) Fall: QUALIFIERS: Encounter type: subsequent encounter Qualified Code(s): W19.XXXD - Unspecified fall, subsequent encounter (3) Contusion of spinal cord: (4) Cervical stenosis of spinal canal: (5) LeFort I fracture: QUALIFIERS: Encounter type: subsequent encounter Fracture type: closed (6) Hyponatremia: (7) Neuropathy: (8) Myopathy: (9) Bradycardia: (10) Allergic dermatitis: PLAN: Grovers disease? Not resolving with steroid cream but, less scaly. She is asymptomatic with the rash. Can follow up with derm asa an OP if needed. (11) Pancytopenia, acquired: PLAN: unclear etiology. Continue to monitor the CBC every few days. Protonix is new this admission and it can be associated with thrombocytopenia and pancytopenia. she has no N/V/epigastric pain and she is now off Dexamethasone. PLAN: Plan 1. Continue therapy 2. Straight cath for a UA 3. Continue to straight cath as needed. 4. Check a hemoccult stool 5. Increase Protonix to 40 mg daily. 6. If she continues to retain will need to replace the Rowland 7. Dc Protonix and recheck a CBC in a few days. Charges/Coding Visit Charges Inpatient E&M: 79972 [facility] Hosp L1
[2024-01-26 15:39] LABS: Bacteria 0 SEEN /hpf (None Seen); Mucous, Urine 0 SEEN /hpf (<or=2+); Red Blood Cells-Urine 0 SEEN /hpf (0-5); Squamous Epithelial Cells - UA 0 SEEN /hpf (5-10); White Blood Cells 0 SEEN /hpf (0-5)
[2024-01-26 15:45] LABS: Color, Urine Yellow (Yellow); Glucose, Dipstick Normal (Normal); Ketone-Dipstick Negative (Negative); Leukocyte Esterase-Dipstick Negative /ul (Negative); Nitrite-Dipstick Negative (Negative); Occult Blood-Urine Negative /ul (Negative); Protein-Dipstick Negative (Negative); Urine Bilirubin Dipstick Negative (Negative); Urine Clarity Clear (Clear); Urine Urobilinogen Normal (Normal); Urine pH 6.5 (5.0 - 8.0)
[2024-01-26] MEDS: Acetaminophen 500 MG Tablet 1000 MG PO (18:51)
[2024-01-26 20:20] VITALS: PULSE 48; RESP 16; O2SAT 96
[2024-01-26 21:00] VITALS: BP 147/54; PULSE 48; RESP 16; TEMP 36.2; O2SAT 96
[2024-01-26] MEDS: Atorvastatin Calcium 20 MG Tablet PO (21:08)
[2024-01-26] MEDS: Paroxetine 20 MG Tablet PO (21:08)
[2024-01-26] MEDS: MELATONIN 3 MG TABLET PO (21:12)
--- NOTE | 2024-01-27 03:30 | NURSING ---
Reviewed and agree with Erick THOMPSON, documentation and assessment charting.
[2024-01-27] MEDS: Enoxaparin 40 MG/0.4 ML Syringe SC (05:56)
[2024-01-27 07:37] VITALS: BP 124/46; PULSE 46; RESP 18; TEMP 36.7; O2SAT 96
[2024-01-27] MEDS: amLODIPine 2.5 MG Tablet PO (08:14)
[2024-01-27] MEDS: Polyethylene Glycol 3350 17 GM PACKET PO (08:14)
[2024-01-27] MEDS: Multivitamins,Therapeutic Tablet 1 TABLET PO (08:15)
[2024-01-27] MEDS: Sodium Chloride 1 GM Tablet PO ×2 (08:15→20:15)
[2024-01-27] MEDS: Senna/Docusate Sodium 1 Tablet PO ×2 (08:15→20:15)
[2024-01-27] MEDS: Fludrocortisone Acetate 0.1 MG Tablet PO (08:15)
[2024-01-27] MEDS: Pantoprazole Sodium 40 MG Tablet PO (08:15)
[2024-01-27] MEDS: Aspirin E.C. 81 MG Tablet PO (08:15)
[2024-01-27] MEDS: Cholecalciferol (VIT D3) 25 MCG TABLET (1,000 UNITS) 50 MCG PO (08:15)
[2024-01-27] MEDS: Miconazole Nitrate 43 GM Bottle 1 APPLIC TOPICAL ×2 (08:22→20:15)
[2024-01-27] MEDS: Mupirocin Ointment 22gm Tube 1 APPLIC NASAL ×2 (10:02→20:14)
--- NOTE | 2024-01-27 12:48 | PN_ITS ---
Subjective Subjective Afebrile VSS Maintaining appropriate oxygen saturation on RA Oral intake - FOOD good FLUIDS good Discussed with nursing - Still retaining urine - I suspect this is due to neurogenic bladder. Reviewed the THERAPY notes Medication list reviewed. No complaints today other than she can not understand why she is on salt restriction but, she is on a low salt diet. Will DC the salt restriction. She denies pain in the left calf today. She does have pain in the paravertebral muscles of the lumbar spine. She denies chest pain, shortness of breath, palpitations, lightheadedness. Objective Data Objective Data Vital Signs: Vital Signs Temp Pulse Resp BP Pulse Ox O2 Del Method O2 Flow Rate 98.0 F 46 L 18 124/46 H 96 Room Air 96 01/27/24 07:37 01/27/24 07:37 01/27/24 07:37 01/27/24 07:37 01/27/24 07:37 01/27/24 10:00 01/19/24 07:29 Oxygen Flow Rate (L/min) 96 Oxygen Delivery Method Room Air Weight: 189 lb Body Mass Index (BMI) 29.6 Intake & Output: Intake and Output for Last 24 Hours 01/25/24 01/26/24 01/27/24 23:59 23:59 23:59 Intake Total 1780 / 1780 2240 / 2240 600 / 600 Output Total 1800 / 1800 1974 / 1974 550 / 550 Balance -20 / -20 265 / 265 50 / 50 Lab / Micro Data 01/26/24 05:33 01/26/24 05:33 Labs: Laboratory Results - last 24 hr 01/26/24 15:20: Urine Color Yellow, Urine Clarity Clear, Urine pH 6.5, Ur Specific Kirkman 1.010, Urine Protein Negative, Urine Glucose (UA) Normal, Urine Ketones Negative, Urine Occult Blood Negative, Urine Nitrite Negative, Urine Bilirubin Negative, Urine Urobilinogen Normal, Ur Leukocyte Esterase Negative, Urine RBC 0 SEEN, Urine WBC 0 SEEN, Ur Squamous Epith Cells 0 SEEN, Urine Bacteria 0 SEEN, Urine Mucus 0 SEEN Micro: Microbiology 01/26/24 15:20 Stool Stool Occult Blood (JOE) - Final 01/12/24 06:21 Urine Catheter - Catheter Urine Culture - Final Presumptive E. coli Physical Exam Const alert and no apparent distress General Appearance: cooperative Resp Resp Narrative: Coarse crackles left base persist. The right base is clear. She is not tachypneic and has no conversational dyspnea Cardio regular rate, regular rhythm and no gallops Cardio Narrative: No ectopy GI normal to inspection, nondistended, normoactive bowel sounds, soft to palpation and non-tender Extremity no calf tenderness Extremity Narrative: Still with a trace of pitting edema limited to the ankle area bilaterally. This is controlled with elevation and compression. Skin Wound Narrative: No change in rash over the right paravertebral area of the low back. Assessment & Plan Assessment/Plan (1) Physical debility: (2) Fall: QUALIFIERS: Encounter type: subsequent encounter Qualified Code(s): W19.XXXD - Unspecified fall, subsequent encounter (3) Contusion of spinal cord: (4) Cervical stenosis of spinal canal: (5) LeFort I fracture: QUALIFIERS: Encounter type: subsequent encounter Fracture type: closed (6) Hyponatremia: (7) Neuropathy: (8) Myopathy: (9) Bradycardia: (10) Pancytopenia, acquired: PLAN: unclear etiology. Continue to monitor the CBC every few days. Protonix is new this admission and it can be associated with thrombocytopenia and pancytopenia. she has no N/V/epigastric pain and she is now off Dexamethasone. PLAN: Plan 1. Continue therapy 2. Lab ordered for Friday 3. Protonix was discontinued yesterday due to potential cause of rash and pancytopenia. Platelets are not dangerously low so we will continue Enoxaparin especially since she has a small clot in the right soleus vein. 4. Discontinue salt restriction from her diet. 5. Continue Florinef and salt tablets. Charges/Coding Visit Charges Inpatient E&M: 51588 [facility] Hosp L1
[2024-01-27 20:00] VITALS: BP 109/48; PULSE 45; RESP 17; TEMP 36.7; O2SAT 98
[2024-01-27 20:10] VITALS: PULSE 45; RESP 17; O2SAT 98
[2024-01-27] MEDS: Atorvastatin Calcium 20 MG Tablet PO (20:15)
[2024-01-27] MEDS: Paroxetine 20 MG Tablet PO (20:15)
[2024-01-27] MEDS: Acetaminophen 500 MG Tablet 1000 MG PO (21:36)
[2024-01-27] MEDS: MELATONIN 3 MG TABLET PO (21:36)
[2024-01-28 06:00] VITALS: BMI 30.6
[2024-01-28] MEDS: Enoxaparin 40 MG/0.4 ML Syringe SC (07:28)
[2024-01-28] MEDS: Polyethylene Glycol 3350 17 GM PACKET PO (08:14)
[2024-01-28] MEDS: Multivitamins,Therapeutic Tablet 1 TABLET PO (08:16)
[2024-01-28] MEDS: Fludrocortisone Acetate 0.1 MG Tablet PO (08:16)
[2024-01-28] MEDS: Aspirin E.C. 81 MG Tablet PO (08:16)
[2024-01-28] MEDS: Cholecalciferol (VIT D3) 25 MCG TABLET (1,000 UNITS) 50 MCG PO (08:17)
[2024-01-28] MEDS: Sodium Chloride 1 GM Tablet PO ×2 (08:17→22:01)
[2024-01-28] MEDS: Senna/Docusate Sodium 1 Tablet PO ×2 (08:17→22:01)
[2024-01-28] MEDS: Mupirocin Ointment 22gm Tube 1 APPLIC NASAL ×2 (08:17→22:01)
[2024-01-28] MEDS: amLODIPine 2.5 MG Tablet PO (08:17)
[2024-01-28] MEDS: Miconazole Nitrate 43 GM Bottle 1 APPLIC TOPICAL ×2 (08:22→22:01)
[2024-01-28 10:00] VITALS: BP 137/81; PULSE 49; RESP 17; TEMP 36.6; O2SAT 93
[2024-01-28 22:00] VITALS: BP 156/55; PULSE 52; RESP 20; TEMP 36.7; O2SAT 97
[2024-01-28] MEDS: Atorvastatin Calcium 20 MG Tablet PO (22:01)
[2024-01-28] MEDS: Paroxetine 20 MG Tablet PO (22:01)
[2024-01-28] MEDS: Acetaminophen 500 MG Tablet 1000 MG PO (22:03)
[2024-01-28] MEDS: MELATONIN 3 MG TABLET PO (22:04)
[2024-01-29] MEDS: Enoxaparin 40 MG/0.4 ML Syringe SC (06:20)
[2024-01-29 07:26] VITALS: BP 134/49; PULSE 47; RESP 16; TEMP 35.6; O2SAT 97
[2024-01-29] MEDS: Sodium Chloride 1 GM Tablet PO ×2 (09:07→21:19)
[2024-01-29] MEDS: Cholecalciferol (VIT D3) 25 MCG TABLET (1,000 UNITS) 50 MCG PO (09:07)
[2024-01-29] MEDS: amLODIPine 2.5 MG Tablet PO (09:07)
[2024-01-29] MEDS: Mupirocin Ointment 22gm Tube 1 APPLIC NASAL ×2 (09:07→21:19)
[2024-01-29] MEDS: Multivitamins,Therapeutic Tablet 1 TABLET PO (09:07)
[2024-01-29] MEDS: Aspirin E.C. 81 MG Tablet PO (09:07)
[2024-01-29] MEDS: Miconazole Nitrate 43 GM Bottle 1 APPLIC TOPICAL ×2 (09:12→21:25)
--- NOTE | 2024-01-29 09:43 | PCM.PROGNOTE ---
Subjective Subjective Kiesha was seen on team rounds today. Afebrile VSS Maintaining appropriate oxygen saturation on RA Oral intake - FOOD good FLUIDS good Discussed with nursing - Rowland was reinserted yesterday for persistent urine retention. BM's are regular. Reviewed the THERAPY notes Medication list reviewed. The pustule on the left side of the nose is smaller but there is still some DC and there is mild swelling of the L nasal ala and some mild erythema. No fevers, sweats or chills. No sore throat. Denies SOB, CP, lightheadedness, N/V/Abd pain, diarrhea/constipation, suprapubic pain and calf pain. Objective Data Objective Data Vital Signs: Vital Signs Temp Pulse Resp BP Pulse Ox O2 Del Method O2 Flow Rate 96.1 F L 47 L 16 134/49 H 97 Room Air 96 01/29/24 07:26 01/29/24 07:26 01/29/24 07:26 01/29/24 07:26 01/29/24 07:26 01/29/24 07:26 01/19/24 07:29 Oxygen Flow Rate (L/min) 96 Oxygen Delivery Method Room Air Weight: 194 lb 14.218 oz Body Mass Index (BMI) 30.6 Intake & Output: Intake and Output for Last 24 Hours 01/27/24 01/28/24 01/29/24 23:59 23:59 23:59 Intake Total 1890 / 1890 1760 / 1760 360 / 360 Output Total 1475 / 1475 1875 / 1875 400 / 400 Balance 415 / 415 -115 / -115 -40 / -40 Lab / Micro Data 02/02/24 05:10 02/02/24 05:10 Micro: Microbiology 01/26/24 15:20 Stool Stool Occult Blood (JOE) - Final 01/12/24 06:21 Urine Catheter - Catheter Urine Culture - Final Presumptive E. coli Physical Exam Const alert and no apparent distress HEENT moist oral mucous membranes HEENT Narrative: There is still a pustule on the left nasal ala although it is smaller than it was. No purulent DC could be expressed however there was a small amount of bloody DC. There is some edema inside the left nostril and some erythema and I was able to find a suture that goes through the nasal ala. The suture was removed. Resp Resp Narrative: coarse crackles in the left base are unchanged. No wheezes, no tachypnea and no conversational dyspnea. Cardio regular rate, regular rhythm and no gallops GI normal to inspection, nondistended, normoactive bowel sounds, soft to palpation and non-tender Extremity no calf tenderness Psych cooperative and affect normal Appearance: appropriate Assessment & Plan Assessment/Plan (1) Physical debility: (2) Fall: QUALIFIERS: Encounter type: subsequent encounter Qualified Code(s): W19.XXXD - Unspecified fall, subsequent encounter (3) Contusion of spinal cord: (4) Cervical stenosis of spinal canal: (5) LeFort I fracture: QUALIFIERS: Encounter type: subsequent encounter Fracture type: closed (6) Hyponatremia: (7) Neuropathy: (8) Myopathy: (9) Bradycardia: (10) Pancytopenia, acquired: (11) Skin pustule: PLAN: Plan 1. Continue therapy 2. Repeat a CBC and BMP on Friday 3. Doxycycline 100 mg BID X 5 days. Charges/Coding Visit Charges Inpatient E&M: 82731 Subs Hosp L1
[2024-01-29] MEDS: Fludrocortisone Acetate 0.1 MG Tablet PO (10:14)
--- NOTE | 2024-01-29 12:48 | CASEMGMT ---
Social Work IDT met with patient and sister, Allison at bedside and , Maximilian via phone to complete care planning. Discussed patient progress with therapy (PT/OT) and nursing support. Patient has improved with therapy- natasha lift has been discontinued at this time. Patient is mod A for care and transfers. SW educated patient and family of [facility] next review date 02/02/2024. Patient goal remains for patient to return home with home health care services and family support. Patient was provided printed home health care list via careport guide in preferred area, medical needs. Patient's expressed concerns for home health care providers that contract with [facility] in [facility]. Referrals will be submitted to determine appropriate home care provider within network of [facility]. SW and Physician discussed [facility] as alternative plan, should patient continue to require acute rehab post IPR. Patient is agreeable to plan of home health v. transitional care unit. SW will continue to follow to assist with discharge planning. AMINATA Bazan
[2024-01-29 20:09] VITALS: BP 140/49; PULSE 51; RESP 17; TEMP 36.8; O2SAT 96
[2024-01-29] MEDS: Doxycycline 100 MG CAPSULE PO (21:19)
[2024-01-29] MEDS: Paroxetine 20 MG Tablet PO (21:19)
[2024-01-29] MEDS: Atorvastatin Calcium 20 MG Tablet PO (21:19)
[2024-01-29] MEDS: Arthritis Pain Compound 60 CLICK TUBE TOPICAL (21:25)
[2024-01-29] MEDS: MELATONIN 3 MG TABLET PO (21:32)
[2024-01-29] MEDS: Acetaminophen 500 MG Tablet 1000 MG PO (21:32)
[2024-01-30 05:49] LABS: Absolute Lymphocyte Count 1.41 X10^3/uL (0.83-4.51); Absolute Neutrophil Count 1.6 X10^3/uL (2.0-7.7); Basophil# 0.02 X10^3/uL; Basophil% 0.6 % (0-1); Eosinophil# 0.18 X10^3/uL; Hemoglobin 9.9 g/dL (12.0-15.0); Lymphocyte # 1.41 X10^3/ul (0.83-4.51); Lymphocyte % 39.4 % (19-41); Mean Corp Hgb Conc 31.9 g/dL (32-36); Mean Corpuscular Hgb 29.2 pg (27.0-32.0); Mean Corpuscular Volume 91.4 fL (81-99); Mean Platelet Vol. 10.5 fl (6.2-12.0); Monocyte# 0.32 X10^3/uL; Monocyte% 8.9 % (0-10); NRBC Flagged by Analyzer 0 % (0-5); Neutrophil # 1.62 X10^3/uL (2.7-7.7); Neutrophil % 45.3 % (47-70); Platelet Count 152 K/mm3 (150-450); RBC Distribution Width CV 15.5 % (11.6-14.6); RBC Distribution Width SD 51.5 fl (35.1-43.9); Red Blood Count 3.39 M/mm3 (4.2-5.4); White Blood Count 3.6 K/mm3 (4.4-11.0)
[2024-01-30 06:32] LABS: Anion Gap 5 (5-15); BUN 13 mg/dL (7-18); BUN/Creat Ratio 18.2 RATIO (10-20); Calcium,Total 8.7 mg/dL (8.5-10.1); Chloride 104 mmol/L (98-107); Creatinine, Serum 0.72 mg/dL (0.55-1.02); EST Glomerular Filtration Rate 83 mL/min (>60); Est Glom Filt Rate - Afr Amer 100 mL/min (>60); Estimated Creatinine Clearance 60.83 ml/min; Glucose 93 mg/dL (74-106); Potassium 3.6 mmol/L (3.5-5.1); Sodium Level 137 mmol/L (136-145)
[2024-01-30] MEDS: Enoxaparin 40 MG/0.4 ML Syringe SC (06:33)
[2024-01-30 07:51] VITALS: BP 147/74; PULSE 50; RESP 17; TEMP 36.2; O2SAT 96
[2024-01-30] MEDS: Multivitamins,Therapeutic Tablet 1 TABLET PO (09:15)
[2024-01-30] MEDS: amLODIPine 2.5 MG Tablet PO (09:15)
[2024-01-30] MEDS: Aspirin E.C. 81 MG Tablet PO (09:15)
[2024-01-30] MEDS: Cholecalciferol (VIT D3) 25 MCG TABLET (1,000 UNITS) 50 MCG PO (09:15)
[2024-01-30] MEDS: Fludrocortisone Acetate 0.1 MG Tablet PO (09:15)
[2024-01-30] MEDS: Sodium Chloride 1 GM Tablet PO (09:15)
[2024-01-30] MEDS: Mupirocin Ointment 22gm Tube 1 APPLIC NASAL (09:15)
[2024-01-30] MEDS: Doxycycline 100 MG CAPSULE PO ×3 (09:15→20:46)
[2024-01-30] MEDS: Miconazole Nitrate 43 GM Bottle 1 APPLIC TOPICAL ×2 (09:18→20:50)
--- NOTE | 2024-01-30 12:00 | PCM.PROGNOTE ---
Subjective Subjective Afebrile VSS Maintaining appropriate oxygen saturation on RA Oral intake - FOOD good FLUIDS good Discussed with nursing - no problems that need addressed Reviewed the THERAPY notes Medication list reviewed. All lab drawn this morning was personally reviewed. The white blood cell count is still low at 3.6 and the hemoglobin is now down to 9.9. Last Hemoccult stool was drawn on 01/26/2024 and it was negative. Platelets are up to 152,000 with discontinuation of Protonix. Sodium is 137 and the potassium is 3.6 today. The BUN is 13 and the creatinine is stable at 0.72. Calcium is within normal limits. Kiesha denies lightheadedness, cough, chest pain, shortness of breath, nausea/vomiting/abdominal pain, dysuria and calf tenderness. The pustule on her nose is no longer painful. Objective Data Objective Data Vital Signs: Vital Signs Temp Pulse Resp BP Pulse Ox O2 Del Method O2 Flow Rate 97.2 F L 50 L 17 147/74 H 96 Room Air 96 01/30/24 07:51 01/30/24 07:51 01/30/24 07:51 01/30/24 07:51 01/30/24 07:51 01/30/24 07:51 01/19/24 07:29 Oxygen Flow Rate (L/min) 96 Oxygen Delivery Method Room Air Weight: 194 lb 14.218 oz Body Mass Index (BMI) 30.6 Intake & Output: Intake and Output for Last 24 Hours 01/28/24 01/29/24 01/30/24 23:59 23:59 23:59 Intake Total 1760 / 1760 1220 / 1220 480 / 480 Output Total 1875 / 1875 1300 / 1300 Balance -115 / -115 -80 / -80 480 / 480 Lab / Micro Data 02/02/24 05:10 02/02/24 05:10 Labs: Laboratory Results - last 24 hr 01/30/24 05:18: WBC 3.6 L, RBC 3.39 L, Hgb 9.9 L, Hct 31.0 L, MCV 91.4, MCH 29.2, MCHC 31.9 L, RDW Std Deviation 51.5 H, RDW Coeff of Danny 15.5 H, Plt Count 152, MPV 10.5, Immature Gran % (Auto) 0.800, Neut % (Auto) 45.3 L, Lymph % (Auto) 39.4, Antelope % (Auto) 8.9, Eos % (Auto) 5.0, Baso % (Auto) 0.6, Absolute Neuts (auto) 1.6 L, Absolute Lymphs (auto) 1.41, Nucleated RBC % 0, Sodium 137, Potassium 3.6, Chloride 104, Carbon Dioxide 28.0, Anion Gap 5, BUN 13, Creatinine 0.72, Estim Creat Clear Calc 60.83, Est GFR (MDRD) Af Amer 100, Est GFR (MDRD) Non-Af 83, BUN/Creatinine Ratio 18.2, Glucose 93, Calcium 8.7 Micro: Microbiology 01/26/24 15:20 Stool Stool Occult Blood (JOE) - Final 01/12/24 06:21 Urine Catheter - Catheter Urine Culture - Final Presumptive E. coli Physical Exam Const alert and no apparent distress HEENT moist oral mucous membranes HEENT Narrative: There is no longer any swelling of the left nasal ala and there is no erythema. There is a small yellow crust over the site of previous Dc. Resp Resp Narrative: coarse crackles in the left base are unchanged. No wheezes, no tachypnea and no conversational dyspnea. Cardio regular rate, regular rhythm and no gallops GI normal to inspection, nondistended, normoactive bowel sounds, soft to palpation and non-tender Extremity no calf tenderness Skin General Skin Exam: no breakdown Rashes: no rashes Psych cooperative and affect normal Appearance: appropriate Assessment & Plan Assessment/Plan (1) Physical debility: (2) Fall: QUALIFIERS: Encounter type: subsequent encounter Qualified Code(s): W19.XXXD - Unspecified fall, subsequent encounter (3) Contusion of spinal cord: (4) Cervical stenosis of spinal canal: (5) LeFort I fracture: QUALIFIERS: Encounter type: subsequent encounter Fracture type: closed (6) Hyponatremia: (7) Neuropathy: (8) Myopathy: (9) Bradycardia: (10) Pancytopenia, acquired: (11) Skin pustule: PLAN: Plan 1. Continue therapy 2. DC the salt tablets. Charges/Coding Visit Charges Inpatient E&M: 28606 Subs Hosp L1
[2024-01-30] MEDS: Paroxetine 20 MG Tablet PO (20:46)
[2024-01-30] MEDS: Atorvastatin Calcium 20 MG Tablet PO (20:46)
[2024-01-30] MEDS: Senna/Docusate Sodium 1 Tablet PO (20:46)
[2024-01-30] MEDS: Acetaminophen 500 MG Tablet 1000 MG PO (20:57)
[2024-01-30] MEDS: MELATONIN 3 MG TABLET PO (20:57)
[2024-01-30 22:00] VITALS: BP 145/53; PULSE 57; RESP 17; TEMP 37; O2SAT 98
[2024-01-31] MEDS: Enoxaparin 40 MG/0.4 ML Syringe SC (05:59)
[2024-01-31 07:34] VITALS: BP 130/56; PULSE 49; RESP 18; TEMP 36.6; O2SAT 97
[2024-01-31] MEDS: amLODIPine 2.5 MG Tablet PO (08:18)
[2024-01-31] MEDS: Cholecalciferol (VIT D3) 25 MCG TABLET (1,000 UNITS) 50 MCG PO (08:18)
[2024-01-31] MEDS: Multivitamins,Therapeutic Tablet 1 TABLET PO (08:19)
[2024-01-31] MEDS: Fludrocortisone Acetate 0.1 MG Tablet PO (08:19)
[2024-01-31] MEDS: Mupirocin Ointment 22gm Tube 1 APPLIC NASAL ×2 (08:20→21:06)
[2024-01-31] MEDS: Aspirin E.C. 81 MG Tablet PO (08:21)
[2024-01-31] MEDS: Miconazole Nitrate 43 GM Bottle 1 APPLIC TOPICAL ×2 (08:22→21:09)
[2024-01-31] MEDS: Doxycycline 100 MG CAPSULE PO ×2 (09:36→21:07)
[2024-01-31 19:20] VITALS: BP 147/49; PULSE 50; RESP 18; TEMP 36.7; O2SAT 95
[2024-01-31] MEDS: Atorvastatin Calcium 20 MG Tablet PO (21:07)
[2024-01-31] MEDS: Paroxetine 20 MG Tablet PO (21:07)
[2024-01-31] MEDS: Senna/Docusate Sodium 1 Tablet PO (21:09)
[2024-01-31] MEDS: MELATONIN 3 MG TABLET PO (21:24)
[2024-01-31] MEDS: Acetaminophen 500 MG Tablet 1000 MG PO (21:25)
[2024-02-01] MEDS: Enoxaparin 40 MG/0.4 ML Syringe SC (05:40)
[2024-02-01 07:37] VITALS: BP 141/54; PULSE 49; RESP 18; TEMP 36.4; O2SAT 100
[2024-02-01] MEDS: Mupirocin Ointment 22gm Tube 1 APPLIC NASAL ×2 (08:20→22:13)
[2024-02-01] MEDS: amLODIPine 2.5 MG Tablet PO (08:21)
[2024-02-01] MEDS: Aspirin E.C. 81 MG Tablet PO (08:21)
[2024-02-01] MEDS: Doxycycline 100 MG CAPSULE PO ×2 (08:21→22:14)
[2024-02-01] MEDS: Fludrocortisone Acetate 0.1 MG Tablet PO (08:21)
[2024-02-01] MEDS: Cholecalciferol (VIT D3) 25 MCG TABLET (1,000 UNITS) 50 MCG PO (08:21)
[2024-02-01] MEDS: Multivitamins,Therapeutic Tablet 1 TABLET PO (08:21)
[2024-02-01] MEDS: Arthritis Pain Compound 60 CLICK TUBE TOPICAL ×2 (08:21→22:13)
[2024-02-01] MEDS: Miconazole Nitrate 43 GM Bottle 1 APPLIC TOPICAL ×2 (08:24→22:13)
[2024-02-01 20:15] VITALS: BP 151/62; PULSE 58; RESP 16; TEMP 36.6; O2SAT 96
[2024-02-01] MEDS: Paroxetine 20 MG Tablet PO (22:14)
[2024-02-01] MEDS: Atorvastatin Calcium 20 MG Tablet PO (22:14)
[2024-02-01] MEDS: MELATONIN 3 MG TABLET PO (22:15)
[2024-02-01] MEDS: Senna/Docusate Sodium 1 Tablet PO (22:15)
[2024-02-01] MEDS: Acetaminophen 500 MG Tablet 1000 MG PO (22:18)
[2024-02-02] MEDS: Enoxaparin 40 MG/0.4 ML Syringe SC (05:19)
[2024-02-02 05:24] LABS: Hematocrit 30.8 % (37-47); Hemoglobin 10.1 g/dL (12.0-15.0); Mean Corp Hgb Conc 32.8 g/dL (32-36); Mean Corpuscular Hgb 29.7 pg (27.0-32.0); Mean Corpuscular Volume 90.6 fL (81-99); Platelet Count 207 K/mm3 (150-450); RBC Distribution Width CV 15.5 % (11.6-14.6); RBC Distribution Width SD 51.7 fl (35.1-43.9); White Blood Count 3.9 K/mm3 (4.4-11.0)
[2024-02-02 05:39] LABS: Anion Gap 5 (5-15); BUN 18 mg/dL (7-18); BUN/Creat Ratio 24.7 RATIO (10-20); Chloride 103 mmol/L (98-107); Creatinine, Serum 0.73 mg/dL (0.55-1.02); EST Glomerular Filtration Rate 81 mL/min (>60); Est Glom Filt Rate - Afr Amer 98 mL/min (>60); Estimated Creatinine Clearance 60.83 ml/min; Glucose 99 mg/dL (74-106); Potassium 3.8 mmol/L (3.5-5.1); Sodium Level 137 mmol/L (136-145)
[2024-02-02 07:22] VITALS: BP 124/52; PULSE 48; RESP 17; TEMP 36.6; O2SAT 95
[2024-02-02] MEDS: Cholecalciferol (VIT D3) 25 MCG TABLET (1,000 UNITS) 50 MCG PO (07:54)
[2024-02-02] MEDS: Doxycycline 100 MG CAPSULE PO ×2 (07:54→21:20)
[2024-02-02] MEDS: Fludrocortisone Acetate 0.1 MG Tablet PO (07:54)
[2024-02-02] MEDS: Multivitamins,Therapeutic Tablet 1 TABLET PO (07:54)
[2024-02-02] MEDS: Aspirin E.C. 81 MG Tablet PO (07:54)
[2024-02-02] MEDS: Arthritis Pain Compound 60 CLICK TUBE TOPICAL ×2 (07:54→21:19)
[2024-02-02] MEDS: amLODIPine 2.5 MG Tablet PO (07:55)
[2024-02-02] MEDS: Senna/Docusate Sodium 1 Tablet PO ×2 (07:55→21:21)
[2024-02-02] MEDS: Mupirocin Ointment 22gm Tube 1 APPLIC NASAL (07:56)
[2024-02-02] MEDS: Miconazole Nitrate 43 GM Bottle 1 APPLIC TOPICAL ×2 (07:57→21:20)
--- NOTE | 2024-02-02 09:49 | PN_ITS ---
Subjective Subjective Cefadroxil day #3 Afebrile VSS - heart rate for the past 24 hours has ranged from 48-58. Blood pressure has ranged from 124/52 to 151/62. Heart monitor is in place. Maintaining appropriate oxygen saturation on RA Oral intake - FOOD good FLUIDS good The weight today is up 5 pounds from last week. Discussed with nursing - no problems that need addressed Reviewed the THERAPY notes Medication list reviewed. All lab from this morning was personally reviewed. White blood cell count remains mildly decreased at 3.9. Hemoglobin is stable at 10.1. Platelet count is within normal limits since the Protonix was discontinued. Sodium is stable at 137 and the potassium is stable at 3.8. The BUN is 18 with a stable creatinine at 0.73. Calcium is normal at 9. She denies GERD and also denies N/V/epigastric pain. At home she takes Prilosec every morning. she is taking this because when she bends over she has reflux and a sour taste in her mouth. Her only complaint to me today is pain in the hips due to arthritis. Objective Data Objective Data Vital Signs: Vital Signs Temp Pulse Resp BP Pulse Ox O2 Del Method O2 Flow Rate 97.8 F 48 L 17 124/52 H 95 Room Air 96 02/02/24 07:22 02/02/24 07:22 02/02/24 07:22 02/02/24 07:22 02/02/24 07:22 02/02/24 07:22 01/19/24 07:29 Oxygen Flow Rate (L/min) 96 Oxygen Delivery Method Room Air Weight: 194 lb 14.218 oz Body Mass Index (BMI) 30.6 Intake & Output: Intake and Output for Last 24 Hours 01/31/24 02/01/24 02/02/24 23:59 23:59 23:59 Intake Total 970 / 970 1300 / 1300 320 / 320 Output Total 2950 / 2950 1950 / 1950 250 / 250 Balance -1979 / -1979 -650 / -650 70 / 70 Lab / Micro Data 02/02/24 05:10 02/02/24 05:10 Labs: Laboratory Results - last 24 hr 02/02/24 05:10: WBC 3.9 L, RBC 3.40 L, Hgb 10.1 L, Hct 30.8 L, MCV 90.6, MCH 29.7, MCHC 32.8, RDW Std Deviation 51.7 H, RDW Coeff of Danny 15.5 H, Plt Count 2 07, MPV 10.0, Sodium 137, Potassium 3.8, Chloride 103, Carbon Dioxide 29.0, Anion Gap 5, BUN 18, Creatinine 0.73, Estim Creat Clear Calc 60.83, Est GFR (MDRD) Af Amer 98, Est GFR (MDRD) Non-Af 81, BUN/Creatinine Ratio 24.7 H, Glucose 99, Calcium 9.0 Micro: Microbiology 01/26/24 15:20 Stool Stool Occult Blood (JOE) - Final 01/12/24 06:21 Urine Catheter - Catheter Urine Culture - Final Presumptive E. coli Physical Exam Const alert, oriented x3 and no apparent distress Constitutional Narrative: Sitting in the recliner at the bedside watching a video on her iPad. General Appearance: cooperative HEENT HEENT Narrative: We found a few more sutures in the bridge of the nost.......they look like dried skin but, on closer investigation they are sutures. They were removed and she tolerated this well. There is no longer any swelling in the L nasal ala and there is no erythema or DC. There does appear to be and end of a suture seep in the small opening in the skin of the L nares/ala but, I could not get this out and it is healing well with the addition of the doxycycline to the drug regimen. A thorough search of the face and scalp revealed no further sutures. Resp Resp Narrative: She has coarse crackles in both bases. She has been using the incentive spirometer but is inconsistent with it. Assessment & Plan Assessment/Plan (1) Physical debility: (2) Fall: QUALIFIERS: Encounter type: subsequent encounter Qualified Code(s): W19.XXXD - Unspecified fall, subsequent encounter (3) Contusion of spinal cord: (4) Cervical stenosis of spinal canal: (5) LeFort I fracture: QUALIFIERS: Encounter type: subsequent encounter Fracture type: closed (6) Hyponatremia: (7) Neuropathy: (8) Myopathy: (9) Bradycardia: (10) Pancytopenia, acquired: (11) Skin pustule: PLAN: Plan 1. Continue therapy 2. DC the Florinef........due to the weight increase and mild increase in ankle swelling. Sodium is normal now. Continue to monitor intake and output. 3. Recheck a BMP at the end of the week. 4. She is not having any heartburn, Nausea, epigastric discomfort I am going to hold off on a PPI or a H2 B due to the thrombocytopenia. Will order PRN Mylanta. Charges/Coding Visit Charges Inpatient E&M: 88141 Subs Hosp L1
[2024-02-02 21:00] VITALS: BP 154/61; PULSE 58; RESP 16; TEMP 36.7; O2SAT 97
[2024-02-02] MEDS: MELATONIN 3 MG TABLET PO (21:19)
[2024-02-02] MEDS: Paroxetine 20 MG Tablet PO (21:21)
[2024-02-02] MEDS: Atorvastatin Calcium 20 MG Tablet PO (21:21)
[2024-02-02] MEDS: Acetaminophen 500 MG Tablet 1000 MG PO (21:22)
[2024-02-02 22:00] VITALS: PULSE 58; RESP 16; O2SAT 97
[2024-02-03] MEDS: Acetaminophen 500 MG Tablet 1000 MG PO ×3 (05:48→22:19)
[2024-02-03] MEDS: Enoxaparin 40 MG/0.4 ML Syringe SC (05:49)
[2024-02-03 07:08] VITALS: BP 116/71; PULSE 54; RESP 16; TEMP 36.4; O2SAT 97
[2024-02-03] MEDS: Aspirin E.C. 81 MG Tablet PO (07:49)
[2024-02-03] MEDS: Cholecalciferol (VIT D3) 25 MCG TABLET (1,000 UNITS) 50 MCG PO (07:49)
[2024-02-03] MEDS: Arthritis Pain Compound 60 CLICK TUBE TOPICAL ×2 (07:49→22:24)
[2024-02-03] MEDS: Multivitamins,Therapeutic Tablet 1 TABLET PO (07:49)
[2024-02-03] MEDS: Senna/Docusate Sodium 1 Tablet PO ×2 (07:49→22:21)
[2024-02-03] MEDS: Doxycycline 100 MG CAPSULE PO ×2 (07:49→22:19)
[2024-02-03] MEDS: amLODIPine 2.5 MG Tablet PO (07:50)
[2024-02-03] MEDS: Miconazole Nitrate 43 GM Bottle 1 APPLIC TOPICAL ×2 (07:52→22:22)
[2024-02-03] MEDS: Magnesium Hydroxide 30 ML UDC PO (09:11)
[2024-02-03 19:23] VITALS: BP 134/52; PULSE 48; RESP 16; TEMP 36.7; O2SAT 96
[2024-02-03 22:00] VITALS: PULSE 53; RESP 16; O2SAT 96
[2024-02-03] MEDS: Paroxetine 20 MG Tablet PO (22:19)
[2024-02-03] MEDS: Atorvastatin Calcium 20 MG Tablet PO (22:19)
[2024-02-03] MEDS: MELATONIN 3 MG TABLET PO (22:35)
[2024-02-04] MEDS: Acetaminophen 500 MG Tablet 1000 MG PO ×3 (06:14→21:46)
[2024-02-04] MEDS: Enoxaparin 40 MG/0.4 ML Syringe SC (06:14)
[2024-02-04 07:31] VITALS: BP 143/68; PULSE 57; RESP 15; TEMP 36.5; O2SAT 97
[2024-02-04] MEDS: Polyethylene Glycol 3350 17 GM PACKET PO (07:59)
[2024-02-04] MEDS: Arthritis Pain Compound 60 CLICK TUBE TOPICAL (07:59)
[2024-02-04] MEDS: Senna/Docusate Sodium 1 Tablet PO ×2 (08:00→21:46)
[2024-02-04] MEDS: Cholecalciferol (VIT D3) 25 MCG TABLET (1,000 UNITS) 50 MCG PO (08:00)
[2024-02-04] MEDS: Doxycycline 100 MG CAPSULE PO ×2 (08:01→21:46)
[2024-02-04] MEDS: Aspirin E.C. 81 MG Tablet PO (08:01)
[2024-02-04] MEDS: amLODIPine 2.5 MG Tablet PO (08:01)
[2024-02-04] MEDS: Multivitamins,Therapeutic Tablet 1 TABLET PO (08:01)
[2024-02-04] MEDS: Miconazole Nitrate 43 GM Bottle 1 APPLIC TOPICAL ×2 (08:06→21:46)
[2024-02-04 09:17] VITALS: BMI 30.9
[2024-02-04] MEDS: Magnesium Hydroxide 30 ML UDC PO (14:03)
[2024-02-04 19:45] VITALS: BP 154/54; PULSE 52; RESP 17; TEMP 36.5; O2SAT 97
[2024-02-04] MEDS: Paroxetine 20 MG Tablet PO (21:46)
[2024-02-04] MEDS: Atorvastatin Calcium 20 MG Tablet PO (21:46)
[2024-02-05] MEDS: Enoxaparin 40 MG/0.4 ML Syringe SC (05:15)
[2024-02-05] MEDS: Acetaminophen 500 MG Tablet 1000 MG PO ×3 (05:16→21:35)
[2024-02-05] MEDS: Aspirin E.C. 81 MG Tablet PO (08:13)
[2024-02-05] MEDS: Multivitamins,Therapeutic Tablet 1 TABLET PO (08:13)
[2024-02-05] MEDS: amLODIPine 2.5 MG Tablet PO ×2 (08:13→21:35)
[2024-02-05] MEDS: Doxycycline 100 MG CAPSULE PO (08:13)
[2024-02-05] MEDS: Cholecalciferol (VIT D3) 25 MCG TABLET (1,000 UNITS) 50 MCG PO (08:13)
[2024-02-05] MEDS: Polyethylene Glycol 3350 17 GM PACKET PO (08:13)
[2024-02-05] MEDS: Senna/Docusate Sodium 1 Tablet PO ×2 (08:13→21:36)
[2024-02-05] MEDS: Miconazole Nitrate 43 GM Bottle 1 APPLIC TOPICAL ×2 (08:17→21:37)
[2024-02-05 08:36] VITALS: BP 139/46; PULSE 51; RESP 15; TEMP 36.5; O2SAT 95
--- NOTE | 2024-02-05 09:53 | PN_ITS ---
Subjective Subjective Kiesha was seen on team rounds today. Her sister was present in the room and her , Polo, participated by phone. All questions were answered to their satisfaction. Afebrile VSS -systolics are mildly elevated but the diastolics are always within goal. Heart rate is ranging from 51-57. Maintaining appropriate oxygen saturation on RA Oral intake - FOOD good FLUIDS good Discussed with nursing - no problems that need addressed. Reviewed the THERAPY notes Medication list reviewed. Having some problem with constipation this AM but, moved her bowels after a laxative. She denies pain, shortness of breath, palpitations, lightheadedness, nausea/vomiting/abdominal pain, dysuria, suprapubic pain and calf tenderness. The Rowland catheter bag has clear pale yellow urine in it. Kiesha does not feel at this time that she is strong enough to go home. Her most challenging activity at this time is getting up from a chair. After she is up from the chair she needs only min assist. Her is not able to assist her at home. Her sister will be present to help but, she is not able to assist in lifting her from the chair. I think with another 10-14 days in rehab she will be able to get up from a chair with only min assist or standby assist. Getting stronger every day. I explained to her that I do not think she is strong enough to go home with the assist of only her sister to get up from a chair at this time but, I expect with some additional therapy and leg strengthening she will make it home. Objective Data Objective Data Vital Signs: Vital Signs Temp Pulse Resp BP Pulse Ox O2 Del Method O2 Flow Rate 97.7 F L 51 L 15 139/46 H 95 Room Air 96 02/05/24 08:36 02/05/24 08:36 02/05/24 08:36 02/05/24 08:36 02/05/24 08:36 02/05/24 08:36 01/19/24 07:29 Oxygen Flow Rate (L/min) 96 Oxygen Delivery Method Room Air Weight: 196 lb 13.965 oz Body Mass Index (BMI) 30.9 Intake & Output: Intake and Output for Last 24 Hours 02/03/24 02/04/24 02/05/24 23:59 23:59 23:59 Intake Total 1890 / 1890 2019 810 / 810 Output Total 2400 / 2400 1750 / 1750 500 / 500 Balance -510 / -510 270 / 270 310 / 310 Lab / Micro Data 02/02/24 05:10 02/02/24 05:10 Micro: Microbiology 01/26/24 15:20 Stool Stool Occult Blood (JOE) - Final 01/12/24 06:21 Urine Catheter - Catheter Urine Culture - Final Presumptive E. coli Physical Exam Const alert, oriented x3 and no apparent distress Constitutional Narrative: Sitting in the recliner at the bedside watching a video on her iPad. General Appearance: cooperative Neck Neck Narrative: Cervical collar remains in place. Resp Resp Narrative: She has coarse crackles in both bases. The crackles are constant. She is not coughing. She denies shortness of breath at rest or with exertion. She denies orthopnea. Cardio regular rate, regular rhythm and no gallops GI normal to inspection, nondistended, normoactive bowel sounds, soft to palpation and non-tender Extremity no calf tenderness General Extremity: edema bilateral lower extremity Details: mild (Well- controlled with FLORY hose.) Skin Wound Narrative: the pustule on the Left nasal ala has resolved with antibiotics. Assessment & Plan Assessment/Plan (1) Physical debility: (2) Fall: QUALIFIERS: Encounter type: subsequent encounter Qualified Code(s): W19.XXXD - Unspecified fall, subsequent encounter (3) Contusion of spinal cord: (4) Cervical stenosis of spinal canal: (5) LeFort I fracture: QUALIFIERS: Encounter type: subsequent encounter Fracture type: closed (6) Hyponatremia: (7) Neuropathy: (8) Myopathy: (9) Bradycardia: (10) Pancytopenia, acquired: PLAN: Plan 1. Continue therapy 2. No changes to the drug regimen today 3. Recheck a BMP and BNP in the a.m. Charges/Coding Visit Charges Inpatient E&M: 84277 Subs Hosp L2
--- NOTE | 2024-02-05 12:47 | CASEMGMT ---
Social Work IDT meeting with patient and sister at bedside; virtual call for care plan meeting. Discussed patient progress with therapy (OT/PT) and nursing support. Per therapy patient is progressing with therapy. Patient is Mod/Min A to stand/pivot; transfer assist. Patient increasing with ambulation 80ft with therapy. Therapy recommends continued services and care. GEORGES provided education regarding insurance coverage; next review date Friday, 02/08. SW informed patient and family that insurance continued coverage is not gSW revisited patient discharge plans when appropriate. Patient informed SW that she would like to transition to TCU, if insurance is unable to approved continued IPR stay. SW will continue to monitor to assist with discharge planning. AMINATA Bazan
[2024-02-05 21:30] VITALS: BP 130/52; PULSE 55; RESP 16; TEMP 36.5; O2SAT 97
[2024-02-05] MEDS: Atorvastatin Calcium 20 MG Tablet PO (21:35)
[2024-02-05] MEDS: MELATONIN 3 MG TABLET PO (21:35)
[2024-02-05] MEDS: Paroxetine 20 MG Tablet PO (21:36)
[2024-02-06] MEDS: Acetaminophen 500 MG Tablet 1000 MG PO ×3 (05:25→22:03)
[2024-02-06] MEDS: Enoxaparin 40 MG/0.4 ML Syringe SC (05:25)
[2024-02-06 07:44] VITALS: BP 136/79; PULSE 75; RESP 16; TEMP 36.5; O2SAT 93
[2024-02-06 07:53] LABS: BNP,B-Type NATRIURETIC PEPTIDE 112.8 pg/mL (0-100)
[2024-02-06 08:12] LABS: Anion Gap 6 (5-15); BUN 13 mg/dL (7-18); BUN/Creat Ratio 19.2 RATIO (10-20); Calcium,Total 9.1 mg/dL (8.5-10.1); Chloride 99 mmol/L (98-107); Creatinine, Serum 0.68 mg/dL (0.55-1.02); EST Glomerular Filtration Rate 88 mL/min (>60); Est Glom Filt Rate - Afr Amer 107 mL/min (>60); Estimated Creatinine Clearance 61.13 ml/min; Glucose 93 mg/dL (74-106); Potassium 4.2 mmol/L (3.5-5.1); Sodium Level 132 mmol/L (136-145)
[2024-02-06] MEDS: Multivitamins,Therapeutic Tablet 1 TABLET PO (08:14)
[2024-02-06] MEDS: Aspirin E.C. 81 MG Tablet PO (08:14)
[2024-02-06] MEDS: Senna/Docusate Sodium 1 Tablet PO ×2 (08:15→22:03)
[2024-02-06] MEDS: Cholecalciferol (VIT D3) 25 MCG TABLET (1,000 UNITS) 50 MCG PO (08:15)
[2024-02-06] MEDS: Polyethylene Glycol 3350 17 GM PACKET PO ×2 (08:15→22:03)
[2024-02-06] MEDS: Miconazole Nitrate 43 GM Bottle 1 APPLIC TOPICAL ×2 (08:36→22:04)
[2024-02-06 09:36] VITALS: PULSE 58; RESP 14; O2SAT 95
[2024-02-06 19:06] LABS: Osmolality, Serum 284 mOsm/KG (280-301)
[2024-02-06 19:35] LABS: Urine Sodium 42 mmol/L (Not Establ.)
[2024-02-06 19:42] LABS: Osmolality, Urine 254 mOsm/KG
--- NOTE | 2024-02-06 20:14 | CPS ---
Patient set up with own PAP machine for the night.
[2024-02-06 22:00] VITALS: BP 140/44; PULSE 53; RESP 17; TEMP 36.8; O2SAT 95
[2024-02-06] MEDS: Atorvastatin Calcium 20 MG Tablet PO (22:03)
[2024-02-06] MEDS: MELATONIN 3 MG TABLET PO (22:04)
[2024-02-06] MEDS: Paroxetine 20 MG Tablet PO (22:04)
[2024-02-07] MEDS: Enoxaparin 40 MG/0.4 ML Syringe SC (05:49)
[2024-02-07] MEDS: Acetaminophen 500 MG Tablet 1000 MG PO ×3 (05:50→21:57)
[2024-02-07 07:46] VITALS: BP 121/58; PULSE 52; RESP 16; TEMP 36.6; O2SAT 96
[2024-02-07] MEDS: amLODIPine 2.5 MG Tablet PO (08:07)
[2024-02-07] MEDS: Polyethylene Glycol 3350 17 GM PACKET PO ×2 (08:07→21:56)
[2024-02-07] MEDS: Cholecalciferol (VIT D3) 25 MCG TABLET (1,000 UNITS) 50 MCG PO (08:07)
[2024-02-07] MEDS: Multivitamins,Therapeutic Tablet 1 TABLET PO (08:08)
[2024-02-07] MEDS: Aspirin E.C. 81 MG Tablet PO (08:08)
[2024-02-07] MEDS: Senna/Docusate Sodium 1 Tablet PO ×2 (08:08→21:56)
[2024-02-07] MEDS: Miconazole Nitrate 43 GM Bottle 1 APPLIC TOPICAL ×2 (08:09→21:56)
[2024-02-07 21:25] VITALS: BP 136/50; PULSE 52; RESP 16; TEMP 36.7; O2SAT 97
[2024-02-07] MEDS: Arthritis Pain Compound 60 CLICK TUBE TOPICAL (21:49)
[2024-02-07] MEDS: Paroxetine 20 MG Tablet PO (21:50)
[2024-02-07] MEDS: Atorvastatin Calcium 20 MG Tablet PO (21:50)
[2024-02-07] MEDS: MELATONIN 3 MG TABLET PO (21:55)
[2024-02-08] MEDS: Acetaminophen 500 MG Tablet 1000 MG PO ×3 (06:01→21:00)
[2024-02-08] MEDS: Enoxaparin 40 MG/0.4 ML Syringe SC (06:01)
[2024-02-08 08:11] VITALS: BP 134/41; PULSE 52; RESP 17; TEMP 36.7; O2SAT 95
[2024-02-08] MEDS: Aspirin E.C. 81 MG Tablet PO (08:43)
[2024-02-08] MEDS: Multivitamins,Therapeutic Tablet 1 TABLET PO (08:43)
[2024-02-08] MEDS: Miconazole Nitrate 43 GM Bottle 1 APPLIC TOPICAL ×2 (08:44→21:05)
[2024-02-08] MEDS: Cholecalciferol (VIT D3) 25 MCG TABLET (1,000 UNITS) 50 MCG PO (08:44)
[2024-02-08] MEDS: amLODIPine 2.5 MG Tablet PO (08:45)
[2024-02-08] MEDS: Senna/Docusate Sodium 1 Tablet PO ×2 (08:45→21:00)
[2024-02-08] MEDS: Polyethylene Glycol 3350 17 GM PACKET PO ×2 (08:45→21:00)
[2024-02-08 20:16] VITALS: BP 131/62; PULSE 54; RESP 16; TEMP 36; O2SAT 96
[2024-02-08] MEDS: Arthritis Pain Compound 60 CLICK TUBE TOPICAL (21:00)
[2024-02-08] MEDS: Atorvastatin Calcium 20 MG Tablet PO (21:00)
[2024-02-08] MEDS: Paroxetine 20 MG Tablet PO (21:00)
[2024-02-08] MEDS: MELATONIN 3 MG TABLET PO (21:01)
[2024-02-09] MEDS: Acetaminophen 500 MG Tablet 1000 MG PO ×3 (06:27→20:53)
[2024-02-09] MEDS: Enoxaparin 40 MG/0.4 ML Syringe SC (06:27)
[2024-02-09 07:45] VITALS: BP 120/42; PULSE 50; RESP 16; TEMP 36.9; O2SAT 97
[2024-02-09] MEDS: Senna/Docusate Sodium 1 Tablet PO ×2 (08:10→20:53)
[2024-02-09] MEDS: Aspirin E.C. 81 MG Tablet PO (08:11)
[2024-02-09] MEDS: Cholecalciferol (VIT D3) 25 MCG TABLET (1,000 UNITS) 50 MCG PO (08:11)
[2024-02-09] MEDS: amLODIPine 2.5 MG Tablet PO (08:11)
[2024-02-09] MEDS: Multivitamins,Therapeutic Tablet 1 TABLET PO (08:11)
[2024-02-09] MEDS: Miconazole Nitrate 43 GM Bottle 1 APPLIC TOPICAL ×2 (08:15→20:57)
--- NOTE | 2024-02-09 10:13 | PCM.PROGNOTE ---
Subjective Subjective Afebrile VSS -remains bradycardic in the 50s. She denies lightheadedness. Maintaining appropriate oxygen saturation on RA Oral intake - FOOD good FLUIDS good Discussed with nursing - no problems that need addressed. The Rowland catheter was removed yesterday. Postvoid residual today was 42. she was scanned for 473 and then was incontinent and the post scan following incontinence was 42. Not incontinent of stool. Reviewed the THERAPY notes Medication list reviewed. Urine studies show a normal serum osmolality and a urine osmolality of 254. Urine sodium was 42. Fluid balance on 02/07/2024 was -1275 but on 02/08/2024 it was +890. Overnight she was -490. Kiesha denies lightheadedness, vertigo, CP, SOB at rest, SOB with exertion, cough, nausea, vomiting, abd pain, diarrhea, constipation, dysuria, calf pain and ankle swelling. She is complaining of some heartburn at times. She denies any soreness in her mouth, painful swallowing and vaginal discharge/itching. Objective Data Objective Data Vital Signs: Vital Signs Temp Pulse Resp BP Pulse Ox O2 Del Method O2 Flow Rate 98.5 F 50 L 16 120/42 L 97 Room Air 96 02/09/24 07:45 02/09/24 07:45 02/09/24 07:45 02/09/24 07:45 02/09/24 07:45 02/09/24 09:33 01/19/24 07:29 Oxygen Flow Rate (L/min) 96 Oxygen Delivery Method Room Air Weight: 196 lb 13.965 oz Body Mass Index (BMI) 30.9 Intake & Output: Intake and Output for Last 24 Hours 02/07/24 02/08/24 02/09/24 23:59 23:59 23:59 Intake Total 1400 / 1400 2640 / 2640 240 / 240 Output Total 2675 / 2675 1750 / 2050 700 / 700 Balance -1275 / -1275 890 / 590 -460 / -460 Lab / Micro Data 02/10/24 05:28 02/10/24 05:28 Micro: Microbiology 01/26/24 15:20 Stool Stool Occult Blood (JOE) - Final 01/12/24 06:21 Urine Catheter - Catheter Urine Culture - Final Presumptive E. coli Physical Exam Const alert, oriented x3 and no apparent distress Constitutional Narrative: Sitting in the recliner at the bedside watching a video on her iPad. General Appearance: cooperative Orientation / Consciousness: Negative for confused HEENT moist oral mucous membranes HEENT Narrative: Whiteland collar remains in place. She has been having a little tenderness over the occiput behind the right ear. The OT padded the area and the pain is better. Eyes PERRL, EOMs intact bilaterally, conjunctivae normal and no scleral icterus Eyes Narrative: Zari-orbital bruising is much better. General Eye: normal appearance of both eyes Neck Neck Narrative: Cervical collar remains in place. Chest Chest: symmetrical chest wall rise; Negative for crepitus Resp normal respiratory effort and normal air movement Resp Narrative: Coarse crackles in the bases unchanged. No conversational dyspnea. Not tachypneic. Effort and Inspection: able to speak in complete sentences; Negative for tachypneic Cardio regular rhythm and no gallops Cardio Narrative: Remains bradycardic in the 50s. Rate: bradycardia GI normal to inspection, nondistended, normoactive bowel sounds, soft to palpation and non-tender GI Narrative: No guarding with palpation no CVA tenderness Narrative: She had a catheter while at [facility]. She is retaining urine. She is also incontinent of urine. Back/Spine General Back: Negative for CVA tenderness Cervical Spine: collar present Extremity no calf tenderness Extremity Narrative: Trace ankle edema bilaterally. General Extremity: edema Skin no jaundice Skin Narrative: The rash on the low back is still reddened and well circumscribed. It is not raised. It is no longer scaly. It is not pruritic. There is no increased warmth to touch and no pain with palpation. She has pain in the paravertebral muscles in the lumbar area. General Skin Exam: no breakdown Rashes: no rashes Wound Narrative: The pustule/cellulitis on the left nasal ala has completely resolved with doxycycline. Neuro oriented x3, CN's II-XII intact bilaterally and no focal motor deficits Neuro Narrative: Numbness in the BL hands is improving. Still with significant numbness of the R leg....better on the left. Strength is improving in the arms and the legs. Speech: speech normal Psych thought process normal, cooperative and affect normal Psych Narrative: Making good eye contact. Appearance: grossly normal and appropriate Attitude: calm, engaged and No agitated Activity / Motor Behavior: appropriate eye contact; Negative for restless Speech: normal speech Assessment & Plan Assessment/Plan (1) Physical debility: (2) Contusion of spinal cord: (3) Cervical stenosis of spinal canal: (4) LeFort I fracture: QUALIFIERS: Encounter type: subsequent encounter Fracture type: closed (5) Hyponatremia: (6) Neuropathy: (7) Myopathy: (8) Bradycardia: (9) Pancytopenia, acquired: (10) Urine retention: PLAN: Due to spinal cord injury. Resolved. (11) Urine incontinence: QUALIFIERS: Urinary Incontinence type: urge incontinence Qualified Code(s): N39.41 - Urge incontinence PLAN: Plan 1. Continue therapy 2. Recheck a BMP and CBC in AM. 3. Continue bladder scans and PVR's to monitor for urine retention since the Rowland has been removed. 4. Order PRN Mylanta for heartburn. 5. I suspect the mild decrease in the sodium is either due to mild SIADH or reset osmostat. If the sodium is stable in the AM will not need to fluid restrict. Check a TSH in the AM to r/o hypothyroidism. Last TSH was in 2021 and it was 0.62 Charges/Coding Visit Charges Inpatient E&M: 23854 Subs Hosp L1
--- NOTE | 2024-02-09 17:04 | CASEMGMT ---
Social Work SW met with patient at bedside to inform patient of [employer] insurance coverage and next review date 02/16/2024. Transition of care plan: TCAMINATA Diaz
[2024-02-09] MEDS: Paroxetine 20 MG Tablet PO (20:53)
[2024-02-09] MEDS: Atorvastatin Calcium 20 MG Tablet PO (20:53)
[2024-02-09] MEDS: Polyethylene Glycol 3350 17 GM PACKET PO (20:53)
[2024-02-09] MEDS: Arthritis Pain Compound 60 CLICK TUBE TOPICAL (20:54)
[2024-02-09] MEDS: MELATONIN 3 MG TABLET PO (20:56)
[2024-02-09 21:03] VITALS: PULSE 54
[2024-02-09 22:00] VITALS: BP 150/50; PULSE 54; RESP 16; TEMP 36.4; O2SAT 96
[2024-02-10] MEDS: Enoxaparin 40 MG/0.4 ML Syringe SC (05:32)
[2024-02-10] MEDS: Acetaminophen 500 MG Tablet 1000 MG PO ×2 (05:32→21:11)
[2024-02-10 05:45] LABS: Hematocrit 32.6 % (37-47); Hemoglobin 10.6 g/dL (12.0-15.0); Mean Corp Hgb Conc 32.5 g/dL (32-36); Mean Corpuscular Hgb 29.4 pg (27.0-32.0); Mean Corpuscular Volume 90.6 fL (81-99); Platelet Count 266 K/mm3 (150-450); RBC Distribution Width CV 14.9 % (11.6-14.6); RBC Distribution Width SD 49.8 fl (35.1-43.9); White Blood Count 5.5 K/mm3 (4.4-11.0)
[2024-02-10 06:05] LABS: Anion Gap 4 (5-15); BUN 13 mg/dL (7-18); BUN/Creat Ratio 20.9 RATIO (10-20); Calcium,Total 9.2 mg/dL (8.5-10.1); Chloride 99 mmol/L (98-107); Creatinine, Serum 0.62 mg/dL (0.55-1.02); EST Glomerular Filtration Rate 97 mL/min (>60); Est Glom Filt Rate - Afr Amer 117 mL/min (>60); Estimated Creatinine Clearance 61.13 ml/min; Glucose 94 mg/dL (74-106); Potassium 4.3 mmol/L (3.5-5.1); Sodium Level 133 mmol/L (136-145)
[2024-02-10 07:47] VITALS: BP 139/59; PULSE 50; RESP 16; TEMP 36.6; O2SAT 95
[2024-02-10] MEDS: Multivitamins,Therapeutic Tablet 1 TABLET PO (08:01)
[2024-02-10] MEDS: Cholecalciferol (VIT D3) 25 MCG TABLET (1,000 UNITS) 50 MCG PO (08:01)
[2024-02-10] MEDS: Aspirin E.C. 81 MG Tablet PO (08:01)
[2024-02-10] MEDS: amLODIPine 2.5 MG Tablet PO (08:01)
[2024-02-10] MEDS: Miconazole Nitrate 43 GM Bottle 1 APPLIC TOPICAL ×2 (08:06→21:12)
--- NOTE | 2024-02-10 09:10 | PCM.PROGNOTE ---
Subjective Subjective Afebrile VSS - Maintaining appropriate oxygen saturation on RA Oral intake - FOOD good FLUIDS good Discussed with nursing - no problems that need addressed. She has had 2 postvoid residuals and 1 was 4 and the other was 42. Still continues to have some urinary incontinence. Having regular bowel movements. Reviewed the THERAPY notes Medication list reviewed. All lab drawn this morning was personally reviewed. White blood cell count is now normal at 5.5 and hemoglobin is up to 10.6 from 9.9 on 01/30/2024. Platelets are within normal limits. Sodium is stable at 143. Potassium is 4.3 and serum bicarb is normal. BUN is 13 with a stable creatinine of 0.62. Calcium is normal. Kiesha is complaining of heartburn before lunch almost daily. At home she takes Prilosec 20 mg daily with breakfast and she is asymptomatic for the rest of the day. She denies nausea/vomiting/lightheadedness/cephalgia/dysuria and calf tenderness. She is no longer retaining urine but, has urine incontinence due to urgency which is not new. No flank pain. She is also c/o pain from the cervical collar rubbing on the left side of the neck......OT padded yesterday which helped but, the padding fell out.....will have nursing pad the collar again today. Objective Data Objective Data Vital Signs: Vital Signs Temp Pulse Resp BP Pulse Ox O2 Del Method O2 Flow Rate 97.9 F 50 L 16 139/59 H 95 Room Air 96 02/10/24 07:47 02/10/24 07:47 02/10/24 07:47 02/10/24 07:47 02/10/24 07:47 02/10/24 07:47 01/19/24 07:29 Oxygen Flow Rate (L/min) 96 Oxygen Delivery Method Room Air Weight: 196 lb 13.965 oz Body Mass Index (BMI) 30.9 Intake & Output: Intake and Output for Last 24 Hours 02/08/24 02/09/24 02/10/24 23:59 23:59 23:59 Intake Total 2640 / 2640 880 / 880 360 / 360 Output Total 1750 / 2050 700 / 1000 300 / 300 Balance 890 / 590 180 / -120 60 / 60 Lab / Micro Data 02/10/24 05:28 02/10/24 05:28 Labs: Laboratory Results - last 24 hr 02/10/24 05:28: WBC 5.5, RBC 3.60 L, Hgb 10.6 L, Hct 32.6 L, MCV 90.6, MCH 29.4, MCHC 32.5, RDW Std Deviation 49.8 H, RDW Coeff of Danny 14.9 H, Plt Count 266, MPV 10.0, Sodium 133 L, Potassium 4.3, Chloride 99, Carbon Dioxide 30.0, Anion Gap 4 L, BUN 13, Creatinine 0.62, Estim Creat Clear Calc 61.13, Est GFR (MDRD) Af Amer 117, Est GFR (MDRD) Non-Af 97, BUN/Creatinine Ratio 20.9 H, Glucose 94, Calcium 9.2 Micro: Microbiology 01/26/24 15:20 Stool Stool Occult Blood (JOE) - Final 01/12/24 06:21 Urine Catheter - Catheter Urine Culture - Final Presumptive E. coli Physical Exam Const alert, oriented x3 and no apparent distress Constitutional Narrative: Sitting in the recliner at the bedside watching a video on her iPad. General Appearance: cooperative Orientation / Consciousness: Negative for confused HEENT moist oral mucous membranes Eyes PERRL, EOMs intact bilaterally, conjunctivae normal and no scleral icterus Eyes Narrative: Zari-orbital bruising is much better. General Eye: normal appearance of both eyes Neck Neck Narrative: Cervical collar remains in place. Chest Chest: symmetrical chest wall rise; Negative for crepitus Resp normal respiratory effort and normal air movement Resp Narrative: She has coarse crackles in both bases. The crackles are constant. She is not coughing. She denies shortness of breath at rest or with exertion. She denies orthopnea. Effort and Inspection: able to speak in complete sentences; Negative for tachypneic Cardio regular rate, regular rhythm and no gallops Cardio Narrative: No ectopy Rate: bradycardia GI normal to inspection, nondistended, normoactive bowel sounds, soft to palpation and non-tender GI Narrative: No guarding with palpation. no CVA tenderness Narrative: She had a catheter while at [facility]. She is retaining urine. She is also incontinent of urine. Back/Spine General Back: Negative for CVA tenderness Cervical Spine: collar present Extremity no calf tenderness Extremity Narrative: Still with a trace of pitting edema limited to the ankle area bilaterally. This is controlled with elevation and compression. General Extremity: edema bilateral lower extremity Details: mild (Well-controlled with FLORY hose.) Skin no jaundice Skin Narrative: The rash on the low back is still reddened and well circumscribed. It is not raised. It is no longer scaly. It is not pruritic. There is no increased warmth to touch and no pain with palpation. She has pain in the paravertebral muscles in the lumbar area. General Skin Exam: no breakdown, ecchymosis and excoriation(s) Rashes: no rashes Wound Narrative: There are no localized areas of swelling on the posterior neck and no erythema or openings in the skin. Neuro oriented x3, CN's II-XII intact bilaterally and no focal motor deficits Neuro Narrative: Numbness in the BL hands is improving. Still with significant numbness of the R leg....better on the left. Strength is improving in the arms and the legs. Speech: speech normal Psych affect normal Psych Narrative: Making good eye contact. Appearance: appropriate Attitude: No agitated Activity / Motor Behavior: Negative for restless Speech: normal speech Assessment & Plan Assessment/Plan (1) Physical debility: (2) Contusion of spinal cord: (3) Cervical stenosis of spinal canal: (4) LeFort I fracture: QUALIFIERS: Encounter type: subsequent encounter Fracture type: closed (5) Hyponatremia: (6) Neuropathy: (7) Myopathy: (8) Bradycardia: (9) Pancytopenia, acquired: (10) Urine retention: PLAN: Due to spinal cord injury. Resolved. (11) Urine incontinence: QUALIFIERS: Urinary Incontinence type: urge incontinence Qualified Code(s): N39.41 - Urge incontinence PLAN: Plan 1. Continue therapy 2. She became pancytopenic on Protonix. Leukopenia and thrombocytopenia have resolved and the HGB is improving. Will try a H2 wilbert instead. 3. Doing well without the Rowland catheter so we will continue to monitor postvoid residuals for a few days. 4. Will plan on having her sister come in for family training at the end of the week to see if she ill be able to provide the assistance Kiesha will need if discharged home. If she can not then will need to go to SNF prior to transitioning home. Charges/Coding Visit Charges Inpatient E&M: 58301 Subs Hosp L1
[2024-02-10] MEDS: Famotidine 20 MG Tablet PO (11:10)
[2024-02-10 20:50] VITALS: BP 142/58; PULSE 54; RESP 16; TEMP 36.6; O2SAT 97
[2024-02-10] MEDS: MELATONIN 3 MG TABLET PO (21:10)
[2024-02-10] MEDS: Atorvastatin Calcium 20 MG Tablet PO (21:11)
[2024-02-10] MEDS: Arthritis Pain Compound 60 CLICK TUBE TOPICAL (21:11)
[2024-02-10] MEDS: Paroxetine 20 MG Tablet PO (21:11)
[2024-02-10 22:50] VITALS: PULSE 54; RESP 16; O2SAT 97
--- NOTE | 2024-02-11 02:33 | NURSING ---
Reviewed and agree with Erick THOMPSON, documentation and assessment charting.
[2024-02-11 06:00] VITALS: BMI 30.3
[2024-02-11] MEDS: Enoxaparin 40 MG/0.4 ML Syringe SC (06:59)
[2024-02-11] MEDS: Acetaminophen 500 MG Tablet 1000 MG PO ×3 (07:00→21:14)
[2024-02-11 07:25] VITALS: BP 126/52; PULSE 54; RESP 16; TEMP 36.4; O2SAT 96
[2024-02-11] MEDS: Aspirin E.C. 81 MG Tablet PO (08:13)
[2024-02-11] MEDS: Famotidine 20 MG Tablet PO (08:13)
[2024-02-11] MEDS: Cholecalciferol (VIT D3) 25 MCG TABLET (1,000 UNITS) 50 MCG PO (08:13)
[2024-02-11] MEDS: Arthritis Pain Compound 60 CLICK TUBE TOPICAL ×2 (08:13→21:12)
[2024-02-11] MEDS: amLODIPine 2.5 MG Tablet PO (08:13)
[2024-02-11] MEDS: Multivitamins,Therapeutic Tablet 1 TABLET PO (08:13)
[2024-02-11] MEDS: Miconazole Nitrate 43 GM Bottle 1 APPLIC TOPICAL ×2 (08:21→21:13)
[2024-02-11 21:00] VITALS: BP 141/58; PULSE 56; RESP 16; TEMP 36.6; O2SAT 99
[2024-02-11] MEDS: MELATONIN 3 MG TABLET PO (21:14)
[2024-02-11] MEDS: Atorvastatin Calcium 20 MG Tablet PO (21:14)
[2024-02-11] MEDS: Paroxetine 20 MG Tablet PO (21:14)
[2024-02-12] MEDS: Enoxaparin 40 MG/0.4 ML Syringe SC (05:21)
[2024-02-12] MEDS: Acetaminophen 500 MG Tablet 1000 MG PO ×3 (05:22→21:10)
[2024-02-12 07:53] VITALS: BP 129/37; PULSE 52; RESP 16; TEMP 36.6; O2SAT 98
[2024-02-12] MEDS: Cholecalciferol (VIT D3) 25 MCG TABLET (1,000 UNITS) 50 MCG PO (08:11)
[2024-02-12] MEDS: Arthritis Pain Compound 60 CLICK TUBE TOPICAL ×2 (08:11→21:11)
[2024-02-12] MEDS: Multivitamins,Therapeutic Tablet 1 TABLET PO (08:11)
[2024-02-12] MEDS: amLODIPine 2.5 MG Tablet PO (08:11)
[2024-02-12] MEDS: Aspirin E.C. 81 MG Tablet PO (08:12)
[2024-02-12] MEDS: Famotidine 20 MG Tablet PO (08:12)
[2024-02-12] MEDS: Miconazole Nitrate 43 GM Bottle 1 APPLIC TOPICAL ×2 (08:13→21:11)
--- NOTE | 2024-02-12 12:04 | PN_ITS ---
Subjective Subjective Kiesha was seen on team rounds today. Her Sister Susanne was present in the room and her Polo participated by phone. Afebrile VSS -heart rate remains in the 50s and she is asymptomatic. Systolic blood pressures are occasionally elevated at the end of the day but the diastolics are always within normal limits. Maintaining appropriate oxygen saturation on RA Oral intake - FOOD good FLUIDS good Weight is up 7 pounds since admission to rehab. Discussed with nursing - no problems that need addressed. Sleeping well at night. Good appetite. Reviewed the THERAPY notes Medication list reviewed. Kiesha denies chest pain, shortness of breath, cough, dysuria, lightheadedness and calf pain. She has no complaints today. Objective Data Objective Data Vital Signs: Vital Signs Temp Pulse Resp BP Pulse Ox O2 Del Method O2 Flow Rate 97.8 F 52 L 16 129/37 H 98 Room Air 96 02/12/24 07:53 02/12/24 07:53 02/12/24 07:53 02/12/24 07:53 02/12/24 07:53 02/12/24 10:00 01/19/24 07:29 Oxygen Flow Rate (L/min) 96 Oxygen Delivery Method Room Air Weight: 193 lb 5.526 oz Body Mass Index (BMI) 30.3 Intake & Output: Intake and Output for Last 24 Hours 02/10/24 02/11/24 02/12/24 23:59 23:59 23:59 Intake Total 1560 / 1560 1790 / 1790 560 / 560 Output Total 750 / 750 950 / 950 Balance 810 / 810 840 / 840 560 / 560 Lab / Micro Data 02/10/24 05:28 02/13/24 08:53 Micro: Microbiology 01/26/24 15:20 Stool Stool Occult Blood (JOE) - Final 01/12/24 06:21 Urine Catheter - Catheter Urine Culture - Final Presumptive E. coli Physical Exam Const alert, oriented x3 and no apparent distress General Appearance: cooperative Neck Neck Narrative: Cervical collar remains in place and Kiesha has no complaints about the pain due to the collar today. Nursing has been padding the collar to prevent irritation. Resp normal respiratory effort Resp Narrative: Coarse crackles in the bases are unchanged. She has no conversational dyspnea and she is not tachypneic, even with exertion. Cardio regular rate, regular rhythm and no gallops GI normal to inspection, nondistended, normoactive bowel sounds, soft to palpation and non-tender Extremity Extremity Narrative: Mild lower extremity edema that gets worse toward the end of the day. She elevates when she is sitting in the recliner. General Extremity: edema Skin General Skin Exam: no breakdown Rashes: no rashes Psych thought process normal, cooperative and affect normal Assessment & Plan Assessment/Plan (1) Physical debility: (2) Contusion of spinal cord: (3) Cervical stenosis of spinal canal: (4) LeFort I fracture: QUALIFIERS: Encounter type: subsequent encounter Fracture type: closed (5) Hyponatremia: (6) Neuropathy: (7) Myopathy: (8) Bradycardia: (9) Urine incontinence: QUALIFIERS: Urinary Incontinence type: urge incontinence Qualified Code(s): N39.41 - Urge incontinence (10) GERD (gastroesophageal reflux disease): PLAN: Plan 1. Continue therapy 2. Check a BMP in the a.m. 3. Famotidine has been effective in controlling heartburn. Charges/Coding Visit Charges Inpatient E&M: 55075 [facility] Hosp L1
--- NOTE | 2024-02-12 12:38 | CASEMGMT ---
Social Work IDT met with patient and sister at bedside with present via phone. Discussed patient progress with therapy (PT/OT). Patient continues to require assistance for lower extremity dressing and balancing. Patient is progressing with PT ambulating 110ft and ambulating up ramp. BP stable. SW educated patient on [employer] insurance coverage and next review date: 02/15. Patient was notified that continued stay is not guaranteed. Patient current plan is to transition to TCU, if insurance decides to discontinue services. Therapy goal is to train family for safe transfer to home with home health, if patient continue to progress. Patient decline any needs at this time. SW will continue to provide assistance with discharge plans. AMINATA Bazan
[2024-02-12 21:00] VITALS: BP 153/56; PULSE 55; RESP 16; TEMP 36.5; O2SAT 97
[2024-02-12] MEDS: Senna/Docusate Sodium 1 Tablet PO (21:10)
[2024-02-12] MEDS: Atorvastatin Calcium 20 MG Tablet PO (21:10)
[2024-02-12] MEDS: Paroxetine 20 MG Tablet PO (21:11)
[2024-02-12] MEDS: MELATONIN 3 MG TABLET PO (21:11)
[2024-02-13] MEDS: Acetaminophen 500 MG Tablet 1000 MG PO ×3 (06:10→22:59)
[2024-02-13] MEDS: Enoxaparin 40 MG/0.4 ML Syringe SC (06:10)
[2024-02-13 07:40] VITALS: BP 139/50; PULSE 52; RESP 16; TEMP 36.5; O2SAT 99
[2024-02-13] MEDS: Multivitamins,Therapeutic Tablet 1 TABLET PO (08:00)
[2024-02-13] MEDS: Aspirin E.C. 81 MG Tablet PO (08:00)
[2024-02-13] MEDS: Cholecalciferol (VIT D3) 25 MCG TABLET (1,000 UNITS) 50 MCG PO (08:00)
[2024-02-13] MEDS: Arthritis Pain Compound 60 CLICK TUBE TOPICAL ×2 (08:00→22:56)
[2024-02-13] MEDS: Famotidine 20 MG Tablet PO (08:00)
[2024-02-13] MEDS: amLODIPine 2.5 MG Tablet PO (08:00)
[2024-02-13] MEDS: Miconazole Nitrate 43 GM Bottle 1 APPLIC TOPICAL ×2 (08:01→22:57)
[2024-02-13] MEDS: Senna/Docusate Sodium 1 Tablet PO ×2 (08:01→22:58)
[2024-02-13 09:23] LABS: Anion Gap 9 (5-15); BUN 15 mg/dL (7-18); BUN/Creat Ratio 17.9 RATIO (10-20); Calcium,Total 9.3 mg/dL (8.5-10.1); Chloride 98 mmol/L (98-107); Creatinine, Serum 0.84 mg/dL (0.55-1.02); EST Glomerular Filtration Rate 69 mL/min (>60); Est Glom Filt Rate - Afr Amer 83 mL/min (>60); Estimated Creatinine Clearance 57.71 ml/min; Glucose 132 mg/dL (74-106); Sodium Level 134 mmol/L (136-145)
--- NOTE | 2024-02-13 09:45 | PN_ITS ---
Subjective Subjective Afebrile VSS - Maintaining appropriate oxygen saturation on RA Oral intake - FOOD good FLUIDS good The catheter has been out and she is no longer retaining urine. She is incontinent of urine now. Discussed with nursing - no problems that need addressed. She is sleeping well at night. Having regular BM's. Reviewed the THERAPY notes Medication list reviewed. All lab drawn this morning was personally reviewed. Sodium is stable at 134 and the potassium is 4.0. The BUN is 15 and the creatinine is 0.84 which is within her baseline. TSH is normal. Kiesha denies lightheadedness, vertigo, CP, SOB at rest, SOB with exertion, cough, nausea, vomiting, abd pain, diarrhea, constipation, dysuria, calf pain and heartburn. She has swelling in her ankles at the end of the day. It goes down overnight and she is wearing her FLORY hose. Objective Data Objective Data Vital Signs: Vital Signs Temp Pulse Resp BP Pulse Ox O2 Del Method O2 Flow Rate 97.7 F L 52 L 16 139/50 H 99 Room Air 96 02/13/24 07:40 02/13/24 07:40 02/13/24 07:40 02/13/24 07:40 02/13/24 07:40 02/13/24 07:40 01/19/24 07:29 Oxygen Flow Rate (L/min) 96 Oxygen Delivery Method Room Air Weight: 193 lb 5.526 oz Body Mass Index (BMI) 30.3 Intake & Output: Intake and Output for Last 24 Hours 02/11/24 02/12/24 02/13/24 23:59 23:59 23:59 Intake Total 1790 / 1790 1580 / 1580 580 / 580 Output Total 950 / 950 250 / 250 Balance 840 / 840 1330 / 1330 580 / 580 Lab / Micro Data 02/10/24 05:28 02/13/24 08:53 Labs: Laboratory Results - last 24 hr 02/13/24 08:53: Sodium 134 L, Potassium 4.0, Chloride 98, Carbon Dioxide 27.0, Anion Gap 9, BUN 15, Creatinine 0.84, Estim Creat Clear Calc 57.71, Est GFR (MDRD) Af Amer 83, Est GFR (MDRD) Non-Af 69, BUN/Creatinine Ratio 17.9, Glucose 132 H, Calcium 9.3 Micro: Microbiology 01/26/24 15:20 Stool Stool Occult Blood (JOE) - Final 01/12/24 06:21 Urine Catheter - Catheter Urine Culture - Final Presumptive E. coli Physical Exam Const alert, oriented x3 and no apparent distress General Appearance: cooperative Orientation / Consciousness: Negative for confused Resp normal respiratory effort Resp Narrative: Has coarse crackles in the bases BL which is chronic. Effort and Inspection: Negative for tachypneic, respiratory distress or labored Cardio regular rate and no gallops Cardio Narrative: No ectopy GI normal to inspection, nondistended, normoactive bowel sounds, soft to palpation and non-tender GI Narrative: No guarding with palpation Extremity no calf tenderness Extremity Narrative: Mild pitting edema of the ankles. Her legs were dependent when I entered her room. FLORY hose are in place. Skin Rashes: no rashes Psych thought process normal, cooperative and affect normal Assessment & Plan Assessment/Plan (1) Physical debility: (2) Contusion of spinal cord: (3) Cervical stenosis of spinal canal: (4) LeFort I fracture: QUALIFIERS: Encounter type: subsequent encounter Fracture type: c losed (5) Hyponatremia: (6) Neuropathy: (7) Myopathy: (8) Bradycardia: (9) Urine incontinence: QUALIFIERS: Urinary Incontinence type: urge incontinence Qualified Code(s): N39.41 - Urge incontinence PLAN: Plan 1. Continue therapy 2. No changes to the drug regimen today. She has mild hyponatremia and the sodium is stable. 3. Recheck a CBC in 1 week, had pancytopenia with Protonix.....now on Famotidine 4. Her sister Susanne will come in toward the end of next week to see how much help Kiesha needs and determine whether she will be able to provide that help if Kiesha is discharged home. Charges/Coding Visit Charges Inpatient E&M: 75168 Subs Hosp L1
[2024-02-13 20:00] VITALS: BP 122/49; PULSE 57; RESP 18; TEMP 37.1; O2SAT 97
[2024-02-13] MEDS: Atorvastatin Calcium 20 MG Tablet PO (22:58)
[2024-02-13] MEDS: Paroxetine 20 MG Tablet PO (22:58)
[2024-02-13] MEDS: MELATONIN 3 MG TABLET PO (23:03)
[2024-02-14] MEDS: Acetaminophen 500 MG Tablet 1000 MG PO ×3 (05:04→22:10)
[2024-02-14] MEDS: Enoxaparin 40 MG/0.4 ML Syringe SC (05:04)
[2024-02-14 08:00] VITALS: BP 139/45; PULSE 56; RESP 17; TEMP 36.6; O2SAT 99
[2024-02-14] MEDS: amLODIPine 2.5 MG Tablet PO (08:37)
[2024-02-14] MEDS: Senna/Docusate Sodium 1 Tablet PO ×2 (08:37→22:11)
[2024-02-14] MEDS: Famotidine 20 MG Tablet PO (08:37)
[2024-02-14] MEDS: Cholecalciferol (VIT D3) 25 MCG TABLET (1,000 UNITS) 50 MCG PO (08:37)
[2024-02-14] MEDS: Multivitamins,Therapeutic Tablet 1 TABLET PO (08:37)
[2024-02-14] MEDS: Aspirin E.C. 81 MG Tablet PO (08:37)
[2024-02-14] MEDS: Miconazole Nitrate 43 GM Bottle 1 APPLIC TOPICAL ×2 (08:38→21:07)
[2024-02-14 19:16] VITALS: BP 151/46; PULSE 57; RESP 16; TEMP 36.5; O2SAT 96
[2024-02-14] MEDS: MELATONIN 3 MG TABLET PO (22:09)
[2024-02-14] MEDS: Atorvastatin Calcium 20 MG Tablet PO (22:10)
[2024-02-14] MEDS: Paroxetine 20 MG Tablet PO (22:10)
--- NOTE | 2024-02-15 03:26 | NURSING ---
Reviewed and agree with Kimberly THOMPSON, documentation and assessment charting.
[2024-02-15] MEDS: Enoxaparin 40 MG/0.4 ML Syringe SC (05:26)
[2024-02-15] MEDS: Acetaminophen 500 MG Tablet 1000 MG PO ×3 (05:26→22:12)
[2024-02-15] MEDS: amLODIPine 2.5 MG Tablet PO (07:45)
[2024-02-15] MEDS: Famotidine 20 MG Tablet PO (07:45)
[2024-02-15] MEDS: Aspirin E.C. 81 MG Tablet PO (07:45)
[2024-02-15] MEDS: Multivitamins,Therapeutic Tablet 1 TABLET PO (07:45)
[2024-02-15] MEDS: Miconazole Nitrate 43 GM Bottle 1 APPLIC TOPICAL ×2 (07:45→22:13)
[2024-02-15] MEDS: Cholecalciferol (VIT D3) 25 MCG TABLET (1,000 UNITS) 50 MCG PO (07:46)
[2024-02-15] MEDS: Senna/Docusate Sodium 1 Tablet PO ×2 (07:46→22:12)
[2024-02-15 08:00] VITALS: BP 127/43; PULSE 52; RESP 18; TEMP 36.4; O2SAT 94
[2024-02-15 19:40] VITALS: BP 137/68; PULSE 60; RESP 16; TEMP 37.2; O2SAT 94
[2024-02-15 22:00] VITALS: PULSE 60
[2024-02-15] MEDS: Paroxetine 20 MG Tablet PO (22:12)
[2024-02-15] MEDS: Atorvastatin Calcium 20 MG Tablet PO (22:12)
[2024-02-15] MEDS: MELATONIN 3 MG TABLET PO (22:12)
--- NOTE | 2024-02-16 01:44 | NURSING ---
Reviewed and agree with Kimberly THOMPSON, documentation and assessment charting.
[2024-02-16] MEDS: Enoxaparin 40 MG/0.4 ML Syringe SC (06:06)
[2024-02-16] MEDS: Acetaminophen 500 MG Tablet 1000 MG PO ×3 (06:06→21:32)
[2024-02-16] MEDS: Aspirin E.C. 81 MG Tablet PO (09:04)
[2024-02-16] MEDS: amLODIPine 2.5 MG Tablet PO ×2 (09:04→11:41)
[2024-02-16] MEDS: Famotidine 20 MG Tablet PO (09:04)
[2024-02-16] MEDS: Cholecalciferol (VIT D3) 25 MCG TABLET (1,000 UNITS) 50 MCG PO (09:04)
[2024-02-16] MEDS: Multivitamins,Therapeutic Tablet 1 TABLET PO (09:04)
[2024-02-16] MEDS: Senna/Docusate Sodium 1 Tablet PO ×2 (09:05→21:32)
[2024-02-16] MEDS: Miconazole Nitrate 43 GM Bottle 1 APPLIC TOPICAL ×2 (09:05→21:30)
[2024-02-16 09:34] VITALS: BP 139/43; PULSE 54; RESP 18; TEMP 36.6; O2SAT 94
[2024-02-16 10:00] VITALS: PULSE 64; O2SAT 94
--- NOTE | 2024-02-16 10:11 | PN_ITS ---
Subjective Subjective Afebrile VSS -systolic blood pressures are tad high Maintaining appropriate oxygen saturation on RA Oral intake - FOOD good FLUIDS good Discussed with nursing - no problems that need addressed. Sleeping well, good appetite. Still incontinent of urine at times but sometimes makes it to the toilet. No urine retention. Rowland catheter was removed on 02/08/2024. Reviewed the THERAPY notes Medication list reviewed. Kiesha tells me that sometimes she gets a shock like pain in her feet. It is not often and it is fleeting. She denies cough, shortness of breath, lightheadedness, chest pain, nausea/vomiting/abdominal pain, dysuria and calf tenderness. She is continent at times. She is most often incontinent when she first gets up in the morning and does not make it to the bathroom in time. This has been a problem for many years. Objective Data Objective Data Vital Signs: Vital Signs Temp Pulse Resp BP Pulse Ox O2 Del Method O2 Flow Rate 97.8 F 54 L 18 139/43 H 94 Room Air 96 02/16/24 09:34 02/16/24 09:34 02/16/24 09:34 02/16/24 09:34 02/16/24 09:34 02/16/24 09:34 01/19/24 07:29 Oxygen Flow Rate (L/min) 96 Oxygen Delivery Method Room Air Weight: 193 lb 5.526 oz Body Mass Index (BMI) 30.3 Intake & Output: Intake and Output for Last 24 Hours 02/14/24 02/15/24 02/16/24 23:59 23:59 23:59 Intake Total 1160 / 1160 1920 / 1920 360 / 360 Output Total 2200 / 2200 1450 / 1450 300 / 300 Balance -1040 / -1040 470 / 470 60 / 60 Lab / Micro Data 02/10/24 05:28 02/13/24 08:53 Micro: Microbiology 01/26/24 15:20 Stool Stool Occult Blood (JOE) - Final 01/12/24 06:21 Urine Catheter - Catheter Urine Culture - Final Presumptive E. coli Physical Exam Const alert, oriented x3 and no apparent distress General Appearance: cooperative Orientation / Consciousness: Negative for confused Resp normal respiratory effort Resp Narrative: Has coarse crackles in the bases BL which is chronic. Effort and Inspection: Negative for tachypneic Cardio regular rate and no gallops Cardio Narrative: No ectopy GI normal to inspection, nondistended, normoactive bowel sounds, soft to palpation and non-tender GI Narrative: No guarding with palpation Extremity no calf tenderness Extremity Narrative: Mild pitting edema of the ankles. Her legs were dependent when I entered her room. FLORY hose are in place. Skin Rashes: no rashes Psych thought process normal, cooperative and affect normal Assessment & Plan Assessment/Plan (1) Physical debility: (2) Contusion of spinal cord: (3) Cervical stenosis of spinal canal: (4) LeFort I fracture: QUALIFIERS: Encounter type: subsequent encounter Fracture type: closed (5) Hyponatremia: (6) Neuropathy: (7) Myopathy: (8) Bradycardia: (9) Urine incontinence: QUALIFIERS: Urinary Incontinence type: urge incontinence Qual ified Code(s): N39.41 - Urge incontinence (10) GERD (gastroesophageal reflux disease): PLAN: Plan 1. Continue therapy -making steady progress. Sister Susanne will come in for training this week to if she feels comfortable with the amount of assistance Kiesha will need if she goes home this week. Still needing assistance with toileting and clothing management. 2. Increase amlodipine to 5 mg daily starting today Charges/Coding Visit Charges Inpatient E&M: 00403 Subs Hosp L1
[2024-02-16 19:51] VITALS: BP 150/57; PULSE 54; RESP 16; TEMP 36.3; O2SAT 98
[2024-02-16 21:15] VITALS: PULSE 54; RESP 16; O2SAT 98
[2024-02-16] MEDS: Paroxetine 20 MG Tablet PO (21:33)
[2024-02-16] MEDS: Atorvastatin Calcium 20 MG Tablet PO (21:33)
[2024-02-16] MEDS: MELATONIN 3 MG TABLET PO (21:35)
[2024-02-17] MEDS: Enoxaparin 40 MG/0.4 ML Syringe SC (05:00)
[2024-02-17] MEDS: Acetaminophen 500 MG Tablet 1000 MG PO ×3 (05:00→20:58)
[2024-02-17] MEDS: Famotidine 20 MG Tablet PO (09:06)
[2024-02-17] MEDS: amLODIPine 2.5 MG Tablet 5 MG PO (09:07)
[2024-02-17] MEDS: Aspirin E.C. 81 MG Tablet PO (09:07)
[2024-02-17] MEDS: Senna/Docusate Sodium 1 Tablet PO (09:07)
[2024-02-17] MEDS: Cholecalciferol (VIT D3) 25 MCG TABLET (1,000 UNITS) 50 MCG PO (09:07)
[2024-02-17] MEDS: Multivitamins,Therapeutic Tablet 1 TABLET PO (09:07)
[2024-02-17 09:08] VITALS: BP 125/51; PULSE 52; RESP 16; TEMP 36.6; O2SAT 95
[2024-02-17] MEDS: Miconazole Nitrate 43 GM Bottle 1 APPLIC TOPICAL ×2 (09:08→21:00)
--- NOTE | 2024-02-17 09:23 | PCM.PROGNOTE ---
Subjective Subjective Afebrile VSS - Maintaining appropriate oxygen saturation on RA Oral intake - FOOD good FLUIDS good Discussed with nursing - no problems that need addressed Reviewed the THERAPY notes-she was able to complete anterior. Care today while seated at standby assist. She was able to don/doff lower body clothing over her hips with unilateral support at contact-guard assist. Medication list reviewed. Her only complaint today is she had pain in her tailbone this morning. It resolved when she got up and walked a bit. She denies chest pain, palpitations, lightheadedness, shortness of breath, cough, dysuria and calf tenderness. Objective Data Objective Data Vital Signs: Vital Signs Temp Pulse Resp BP Pulse Ox O2 Del Method O2 Flow Rate 97.8 F 52 L 16 125/51 H 95 Room Air 96 02/17/24 09:08 02/17/24 09:08 02/17/24 09:08 02/17/24 09:08 02/17/24 09:08 02/17/24 09:08 01/19/24 07:29 Oxygen Flow Rate (L/min) 96 Oxygen Delivery Method Room Air Weight: 193 lb 5.526 oz Body Mass Index (BMI) 30.3 Intake & Output: Intake and Output for Last 24 Hours 02/15/24 02/16/24 02/17/24 23:59 23:59 23:59 Intake Total 1920 / 1920 870 / 870 600 / 600 Output Total 1450 / 1450 500 / 500 Balance 470 / 470 370 / 370 600 / 600 Lab / Micro Data 02/10/24 05:28 02/13/24 08:53 Micro: Microbiology 01/26/24 15:20 Stool Stool Occult Blood (JOE) - Final 01/12/24 06:21 Urine Catheter - Catheter Urine Culture - Final Presumptive E. coli Physical Exam Const alert and oriented x3 General Appearance: cooperative Orientation / Consciousness: Negative for confused Resp normal respiratory effort Resp Narrative: Has coarse crackles in the bases BL which is chronic. Effort and Inspection: Negative for tachypneic Cardio regular rate and no gallops Cardio Narrative: No ectopy GI normal to inspection, nondistended, normoactive bowel sounds, soft to palpation and non-tender GI Narrative: No guarding with palpation Extremity no calf tenderness Extremity Narrative: Mild pitting edema of the ankles. Her legs were dependent when I entered her room. FLORY hose are in place. Skin Rashes: no rashes Psych thought process normal, cooperative and affect normal Assessment & Plan Assessment/Plan (1) Physical debility: (2) Contusion of spinal cord: (3) Cervical stenosis of spinal canal: (4) LeFort I fracture: QUALIFIERS: Encounter type: subsequent encounter Fracture type: closed (5) Hyponatremia: (6) Neuropathy: (7) Myopathy: (8) Bradycardia: (9) Urine incontinence: QUALIFIERS: Urinary Incontinence type: urge incontinence Qualified Code(s): N39.41 - Urge incontinence (10) GERD (gastroesophageal reflux disease): (11) Coccyalgia: PLAN: Resolved with getting up to walk. No need for any treatment at this time. PLAN: Plan 1. Continue therapy 2. Recheck a CBC and BMP 3. Continue to monitor blood pressure. Increase frequency of blood pressures to 4 times daily over the next 48 to 72 hours since amlodipine was increased to 5 mg daily yesterday. Charges/Coding Visit Charges Inpatient E&M: 21642 [facility] Hosp L1
[2024-02-17 12:00] VITALS: BP 124/50; PULSE 57
[2024-02-17 18:00] VITALS: BP 135/59; PULSE 55
[2024-02-17] MEDS: Atorvastatin Calcium 20 MG Tablet PO (20:58)
[2024-02-17] MEDS: MELATONIN 3 MG TABLET PO (20:59)
[2024-02-17] MEDS: Paroxetine 20 MG Tablet PO (20:59)
[2024-02-17 21:00] VITALS: BP 135/59; PULSE 55; RESP 16; TEMP 36.4; O2SAT 98
[2024-02-18] MEDS: Enoxaparin 40 MG/0.4 ML Syringe SC (05:47)
[2024-02-18] MEDS: Acetaminophen 500 MG Tablet 1000 MG PO ×3 (05:47→20:54)
[2024-02-18 06:00] VITALS: BP 114/55; PULSE 64; RESP 17; TEMP 36; O2SAT 100; BMI 30.4
[2024-02-18] MEDS: Aspirin E.C. 81 MG Tablet PO (08:03)
[2024-02-18] MEDS: Multivitamins,Therapeutic Tablet 1 TABLET PO (08:03)
[2024-02-18] MEDS: Famotidine 20 MG Tablet PO (08:03)
[2024-02-18] MEDS: amLODIPine 2.5 MG Tablet 5 MG PO (08:03)
[2024-02-18] MEDS: Cholecalciferol (VIT D3) 25 MCG TABLET (1,000 UNITS) 50 MCG PO (08:03)
[2024-02-18] MEDS: Miconazole Nitrate 43 GM Bottle 1 APPLIC TOPICAL ×2 (08:05→20:58)
[2024-02-18 12:00] VITALS: BP 138/62; PULSE 61
[2024-02-18] MEDS: MELATONIN 3 MG TABLET PO (20:53)
[2024-02-18] MEDS: Atorvastatin Calcium 20 MG Tablet PO (20:53)
[2024-02-18 20:55] VITALS: PULSE 56; RESP 18; O2SAT 97
[2024-02-18] MEDS: Paroxetine 20 MG Tablet PO (20:55)
[2024-02-18 22:00] VITALS: BP 128/45; PULSE 56; RESP 18; TEMP 36.3; O2SAT 96
[2024-02-19 05:26] LABS: Hematocrit 31.9 % (37-47); Hemoglobin 10.3 g/dL (12.0-15.0); Mean Corp Hgb Conc 32.3 g/dL (32-36); Mean Corpuscular Hgb 29.3 pg (27.0-32.0); Mean Corpuscular Volume 90.9 fL (81-99); Mean Platelet Vol. 10.4 fl (6.2-12.0); Platelet Count 184 K/mm3 (150-450); RBC Distribution Width SD 49.3 fl (35.1-43.9); Red Blood Count 3.51 M/mm3 (4.2-5.4); White Blood Count 6.2 K/mm3 (4.4-11.0)
[2024-02-19 05:51] LABS: Anion Gap 5 (5-15); BUN 17 mg/dL (7-18); BUN/Creat Ratio 23.1 RATIO (10-20); Calcium,Total 9.3 mg/dL (8.5-10.1); Chloride 101 mmol/L (98-107); Creatinine, Serum 0.74 mg/dL (0.55-1.02); EST Glomerular Filtration Rate 80 mL/min (>60); Est Glom Filt Rate - Afr Amer 97 mL/min (>60); Glucose 97 mg/dL (74-106); Sodium Level 134 mmol/L (136-145)
[2024-02-19 06:00] VITALS: BP 116/39; PULSE 57; RESP 18; TEMP 36.6; O2SAT 95
[2024-02-19] MEDS: Acetaminophen 500 MG Tablet 1000 MG PO ×3 (06:31→21:54)
[2024-02-19] MEDS: Enoxaparin 40 MG/0.4 ML Syringe SC (06:31)
[2024-02-19] MEDS: Cholecalciferol (VIT D3) 25 MCG TABLET (1,000 UNITS) 50 MCG PO (08:10)
[2024-02-19] MEDS: Aspirin E.C. 81 MG Tablet PO (08:10)
[2024-02-19] MEDS: Famotidine 20 MG Tablet PO (08:11)
[2024-02-19] MEDS: Multivitamins,Therapeutic Tablet 1 TABLET PO (08:11)
[2024-02-19] MEDS: Senna/Docusate Sodium 1 Tablet PO (08:11)
[2024-02-19] MEDS: amLODIPine 2.5 MG Tablet 5 MG PO (08:11)
[2024-02-19] MEDS: Miconazole Nitrate 43 GM Bottle 1 APPLIC TOPICAL ×2 (08:12→21:54)
--- NOTE | 2024-02-19 10:48 | PCM.PROGNOTE ---
Subjective Subjective Kiesha was seen on team rounds today. Her Sister Susanne was present in the room and her Polo participated by phone. Afebrile VSS -blood pressure is well-controlled now following increasing amlodipine to 5 mg daily. Heart rate over the past 24 hours has ranged from 56-64. Maintaining appropriate oxygen saturation on RA Oral intake - FOOD good FLUIDS good Discussed with nursing - no problems that need addressed. Still incontinent of urine. Sleeping well at night. Good appetite. Always cooperative. Reviewed the THERAPY notes Medication list reviewed. All lab drawn this morning was personally reviewed. White blood cell count is normal. Hemoglobin is 10.3 and stable but not improving. Platelets are within normal limits. Sodium is mildly decreased but stable at 134. Potassium is 4.0. BUN is 17 and creatinine is stable at 0.77. Kiesha denies cephalgia, lightheadedness, chest pain, shortness of breath, heartburn, nausea/vomiting, constipation, dysuria and calf tenderness. Objective Data Objective Data Vital Signs: Vital Signs Temp Pulse Resp BP Pulse Ox O2 Del Method O2 Flow Rate 97.8 F 57 L 18 116/39 L 95 Room Air 2 02/19/24 06:00 02/19/24 06:00 02/19/24 06:00 02/19/24 06:00 02/19/24 06:00 02/19/24 06:00 02/18/24 06:00 Oxygen Flow Rate (L/min) 2 Oxygen Delivery Method Room Air Weight: 194 lb 0.108 oz Body Mass Index (BMI) 30.4 Intake & Output: Intake and Output for Last 24 Hours 02/17/24 02/18/24 02/19/24 23:59 23:59 23:59 Intake Total 1490 / 1490 2280 / 2280 840 / 840 Output Total 550 / 550 200 / 200 350 / 350 Balance 940 / 940 2080 / 2080 490 / 490 Lab / Micro Data 02/19/24 05:15 02/19/24 05:15 Labs: Laboratory Results - last 24 hr 02/19/24 05:15: WBC 6.2, RBC 3.51 L, Hgb 10.3 L, Hct 31.9 L, MCV 90.9, MCH 29.3, MCHC 32.3, RDW Std Deviation 49.3 H, RDW Coeff of Danny 15.0 H, Plt Count 184, MPV 10.4, Sodium 134 L, Potassium 4.0, Chloride 101, Carbon Dioxide 28.0, Anion Gap 5, BUN 17, Creatinine 0.74, Estim Creat Clear Calc 60.70, Est GFR (MDRD) Af Amer 97, Est GFR (MDRD) Non-Af 80, BUN/Creatinine Ratio 23.1 H, Glucose 97, Calcium 9.3 Micro: Microbiology 01/26/24 15:20 Stool Stool Occult Blood (JOE) - Final 01/12/24 06:21 Urine Catheter - Catheter Urine Culture - Final Presumptive E. coli Physical Exam Const alert General Appearance: cooperative Orientation / Consciousness: Negative for confused Resp normal respiratory effort Resp Narrative: Has coarse crackles in the bases BL which is chronic. Effort and Inspection: Negative for tachypneic Cardio regular rate and no gallops Cardio Narrative: No ectopy GI normal to inspection, nondistended, normoactive bowel sounds, soft to palpation and non-tender GI Narrative: No guarding with palpation Extremity no calf tenderness Skin Rashes: no rashes Psych thought process normal, cooperative and affect normal Assessment & Plan Assessment/Plan (1) Physical debility: (2) Contusion of spinal cord: (3) Cervical stenosis of spinal canal: (4) LeFort I fracture: QUALIFIERS: Encounter type: subsequent encounter Fracture type: closed (5) Hyponatremia: (6) Neuropathy: (7) Myopathy: (8) Bradycardia: (9) Urine incontinence: QUALIFIERS: Urinary Incontinence type: urge incontinence Qualified Code(s): N39.41 - Urge incontinence (10) GERD (gastroesophageal reflux disease): PLAN: Plan 1. Continue therapy. She is making steady progress. Kiesha mindi Skinner feel that cable be able to provide adequate assistance at home with ADLs. The occupational therapist is recommending a home health aide to assist with showering at least for the first couple weeks to make sure she is safe. 2. Will need to follow-up with cardiology following removal of the event monitor. 3. Will need follow-up with neurosurgery post discharge from rehab. All questions from Lisa Pop were answered to their satisfaction. Charges/Coding Visit Charges Inpatient E&M: 58127 Subs Hosp L2
--- NOTE | 2024-02-19 13:39 | CASEMGMT ---
Social Work IDT met with patient and sister at bedside to complete care plan meeting. Discussed patient progress with therapy (PT/OT) and nursing. Patient continues to require assistance with transferring, dressing, and assistance with bathing. OT recommends that the patient discharge home with home health aid to assist with bathing. Patient is ambulating 125ft contact guard with front wheeled walker and requires mod assist for car transfer. Patient sister has been engaged with training to assist with patient care. provided insurance update [employer] insurance next review date 02/22. Patient is progressing with therapy. Patient and sister, Kiesha believes patient has improved enough to return home with home health care services to assist with PT/OT/[employer]. Patient is concerned about obtaining services in [facility]. will submit referral to home health to determine an accepting agency. AMINATA Bazan
[2024-02-19 13:56] VITALS: BP 117/46; PULSE 60
[2024-02-19 17:17] VITALS: BP 146/53; PULSE 57; RESP 17; TEMP 36.4; O2SAT 98
[2024-02-19] MEDS: Paroxetine 20 MG Tablet PO (21:55)
[2024-02-19] MEDS: Atorvastatin Calcium 20 MG Tablet PO (21:55)
[2024-02-19] MEDS: MELATONIN 3 MG TABLET PO (21:58)
[2024-02-19 22:00] VITALS: BP 143/51; PULSE 54; RESP 18; TEMP 36.6; O2SAT 98
--- NOTE | 2024-02-20 03:40 | NURSING ---
Reviewed and agree with Mann THOMPSON, documentation and assessment charting.
[2024-02-20 06:00] VITALS: BP 130/55; PULSE 57; RESP 16; TEMP 36.7; O2SAT 96
[2024-02-20] MEDS: Acetaminophen 500 MG Tablet 1000 MG PO ×3 (06:33→21:20)
[2024-02-20] MEDS: Enoxaparin 40 MG/0.4 ML Syringe SC (06:34)
[2024-02-20] MEDS: Aspirin E.C. 81 MG Tablet PO (08:20)
[2024-02-20] MEDS: Multivitamins,Therapeutic Tablet 1 TABLET PO (08:20)
[2024-02-20] MEDS: amLODIPine 2.5 MG Tablet 5 MG PO (08:21)
[2024-02-20] MEDS: Famotidine 20 MG Tablet PO (08:21)
[2024-02-20] MEDS: Cholecalciferol (VIT D3) 25 MCG TABLET (1,000 UNITS) 50 MCG PO (08:21)
--- NOTE | 2024-02-20 09:28 | CASEMGMT ---
Social Work Discharge Plan: SW contacted [facility], howie Dia informing SW that they will accept patient for home health care services. Ifeoma requested for Ch[facility] to be added to support patient transition, medication management, and monitor for UTI, if patient remains incontinent. GEORGES met with patient and discussed adding half-way to orders. Patient is agreeable to adding nurse support for a few visits. GEORGES informed Physician, Dr. Maya via Backline. Patient [employer] insurance next review date is 02/22 Discharge Plan: Home with [facility] PT/OT/PARTS ADVISOR/SN AMINATA Bazan
[2024-02-20] MEDS: Miconazole Nitrate 43 GM Bottle 1 APPLIC TOPICAL ×2 (10:37→21:22)
[2024-02-20 12:00] VITALS: BP 117/47; PULSE 59; RESP 17; TEMP 36.4; O2SAT 97
[2024-02-20 18:00] VITALS: BP 144/51
[2024-02-20 19:50] VITALS: O2SAT 98
[2024-02-20] MEDS: Atorvastatin Calcium 20 MG Tablet PO (21:19)
[2024-02-20] MEDS: Paroxetine 20 MG Tablet PO (21:19)
[2024-02-20] MEDS: MELATONIN 3 MG TABLET PO (21:27)
[2024-02-20 22:00] VITALS: PULSE 58; RESP 16; TEMP 36.2; O2SAT 98
[2024-02-20 22:07] VITALS: BP 151/51; PULSE 52
--- NOTE | 2024-02-21 03:32 | NURSING ---
Reviewed and agree with Rob THOMPSON, documentation and assessment charting.
[2024-02-21] MEDS: Acetaminophen 500 MG Tablet 1000 MG PO ×3 (05:34→21:24)
[2024-02-21] MEDS: Enoxaparin 40 MG/0.4 ML Syringe SC (05:35)
[2024-02-21 06:00] VITALS: BP 118/49; PULSE 57; RESP 17; TEMP 36.4; O2SAT 96
[2024-02-21] MEDS: Famotidine 20 MG Tablet PO (08:31)
[2024-02-21] MEDS: Cholecalciferol (VIT D3) 25 MCG TABLET (1,000 UNITS) 50 MCG PO (08:31)
[2024-02-21] MEDS: Aspirin E.C. 81 MG Tablet PO (08:31)
[2024-02-21] MEDS: amLODIPine 2.5 MG Tablet 5 MG PO (08:32)
[2024-02-21] MEDS: Senna/Docusate Sodium 1 Tablet PO (08:33)
[2024-02-21] MEDS: Multivitamins,Therapeutic Tablet 1 TABLET PO (08:34)
[2024-02-21] MEDS: Miconazole Nitrate 43 GM Bottle 1 APPLIC TOPICAL ×2 (08:35→21:56)
[2024-02-21 20:00] VITALS: BP 121/52; PULSE 59; RESP 16; TEMP 36.9; O2SAT 96
[2024-02-21] MEDS: Atorvastatin Calcium 20 MG Tablet PO (21:24)
[2024-02-21] MEDS: Paroxetine 20 MG Tablet PO (21:24)
[2024-02-21] MEDS: MELATONIN 3 MG TABLET PO (21:28)
[2024-02-22] MEDS: Acetaminophen 500 MG Tablet 1000 MG PO ×3 (04:49→21:27)
[2024-02-22] MEDS: Enoxaparin 40 MG/0.4 ML Syringe SC (04:49)
[2024-02-22] MEDS: Multivitamins,Therapeutic Tablet 1 TABLET PO (08:04)
[2024-02-22] MEDS: Aspirin E.C. 81 MG Tablet PO (08:04)
[2024-02-22] MEDS: Cholecalciferol (VIT D3) 25 MCG TABLET (1,000 UNITS) 50 MCG PO (08:04)
[2024-02-22] MEDS: Famotidine 20 MG Tablet PO (08:04)
[2024-02-22] MEDS: amLODIPine 2.5 MG Tablet 5 MG PO (08:04)
[2024-02-22] MEDS: Miconazole Nitrate 43 GM Bottle 1 APPLIC TOPICAL ×2 (08:06→21:30)
[2024-02-22 08:10] VITALS: BP 139/50; PULSE 62; RESP 18; TEMP 36.6; O2SAT 95
[2024-02-22 19:51] VITALS: BP 116/62; PULSE 60; RESP 17; TEMP 37.1; O2SAT 96
[2024-02-22] MEDS: Atorvastatin Calcium 20 MG Tablet PO (21:26)
[2024-02-22] MEDS: Paroxetine 20 MG Tablet PO (21:27)
[2024-02-22] MEDS: MELATONIN 3 MG TABLET PO (21:29)
[2024-02-23] MEDS: Enoxaparin 40 MG/0.4 ML Syringe SC (05:54)
[2024-02-23] MEDS: Acetaminophen 500 MG Tablet 1000 MG PO ×3 (05:56→21:26)
[2024-02-23 07:27] VITALS: BP 123/42; PULSE 55; RESP 17; TEMP 36.4; O2SAT 96
[2024-02-23] MEDS: Cholecalciferol (VIT D3) 25 MCG TABLET (1,000 UNITS) 50 MCG PO (07:59)
[2024-02-23] MEDS: Aspirin E.C. 81 MG Tablet PO (07:59)
[2024-02-23] MEDS: Famotidine 20 MG Tablet PO (07:59)
[2024-02-23] MEDS: amLODIPine 2.5 MG Tablet 5 MG PO (07:59)
[2024-02-23] MEDS: Multivitamins,Therapeutic Tablet 1 TABLET PO (07:59)
[2024-02-23] MEDS: Miconazole Nitrate 43 GM Bottle 1 APPLIC TOPICAL ×2 (08:02→21:23)
--- NOTE | 2024-02-23 12:01 | PCM.PROGNOTE ---
Subjective Subjective Afebrile VSS - Maintaining appropriate oxygen saturation on RA Oral intake - FOOD good FLUIDS good Discussed with nursing - no problems that need addressed. Sleeping well. Reviewed the THERAPY notes Medication list reviewed. Kiesha has some discomfort in the left trapezius muscle but this is her only complaint and she rightfully believes that this is likely secondary to leaning on the walker heavily. She denies cephalgia. No night sweats and no shaking chills. Denies dysuria. No calf tenderness. Objective Data Objective Data Vital Signs: Vital Signs Temp Pulse Resp BP Pulse Ox O2 Del Method O2 Flow Rate 97.5 F L 55 L 17 123/42 H 96 Room Air 2 02/23/24 07:27 02/23/24 07:27 02/23/24 07:27 02/23/24 07:27 02/23/24 07:27 02/23/24 08:23 02/22/24 19:52 Oxygen Flow Rate (L/min) 2 Oxygen Delivery Method Room Air Weight: 194 lb 0.108 oz Body Mass Index (BMI) 30.4 Intake & Output: Intake and Output for Last 24 Hours 02/21/24 02/22/24 02/23/24 23:59 23:59 23:59 Intake Total 1600 / 1750 1770 / 1770 340 / 340 Output Total 1000 / 1300 2000 / 2000 800 / 800 Balance 600 / 450 -230 / -230 -460 / -460 Lab / Micro Data 02/19/24 05:15 02/19/24 05:15 Micro: Microbiology 01/26/24 15:20 Stool Stool Occult Blood (JOE) - Final 01/12/24 06:21 Urine Catheter - Catheter Urine Culture - Final Presumptive E. coli Physical Exam Const alert, oriented x3 and no apparent distress General Appearance: cooperative Orientation / Consciousness: Negative for confused HEENT moist oral mucous membranes Resp normal respiratory effort Resp Narrative: Has coarse crackles in the bases BL which is chronic. Effort and Inspection: Negative for tachypneic Cardio regular rate and no gallops Cardio Narrative: No ectopy GI normal to inspection, nondistended, normoactive bowel sounds, soft to palpation and non-tender GI Narrative: No guarding with palpation Extremity no calf tenderness Skin Rashes: no rashes Psych thought process normal, cooperative and affect normal Assessment & Plan Assessment/Plan (1) Physical debility: (2) Contusion of spinal cord: (3) Cervical stenosis of spinal canal: (4) LeFort I fracture: QUALIFIERS: Encounter type: subsequent encounter Fracture type: closed (5) Hyponatremia: (6) Neuropathy: (7) Myopathy: (8) Bradycardia: (9) Urine incontinence: QUALIFIERS: Urinary Incontinence type: urge incontinence Qualified Code(s): N39.41 - Urge incontinence (10) GERD (gastroesophageal reflux disease): QUALIFIERS: Esophagitis presence: esophagitis presence not specified Qualified Code(s): K21.9 - Gastro-esophageal reflux disease without esophagitis PLAN: Resolved with addition of famotidine to the drug regimen. PLAN: Plan 1. Continue therapy 2. Recheck a CBC, BMP and magnesium on Friday. 3. Plan discharge for Friday to home with home health care and the assistance of her Sister Susanne. Charges/Coding Visit Charges Inpatient E&M: 49604 [facility] Hosp L1
[2024-02-23] MEDS: Menthol/Lanolin/Calamine/Znox 113 GM Tube 1 APPLIC TOPICAL ×2 (12:53→21:23)
[2024-02-23 19:37] VITALS: BP 150/53; PULSE 55; RESP 16; TEMP 36.5; O2SAT 16
[2024-02-23] MEDS: Atorvastatin Calcium 20 MG Tablet PO (21:25)
[2024-02-23] MEDS: Paroxetine 20 MG Tablet PO (21:25)
[2024-02-23] MEDS: MELATONIN 3 MG TABLET PO (21:29)
[2024-02-23 22:00] VITALS: PULSE 57
[2024-02-24] MEDS: Enoxaparin 40 MG/0.4 ML Syringe SC (05:53)
[2024-02-24] MEDS: Menthol/Lanolin/Calamine/Znox 113 GM Tube 1 APPLIC TOPICAL ×3 (05:53→21:46)
[2024-02-24] MEDS: Acetaminophen 500 MG Tablet 1000 MG PO ×3 (05:54→21:45)
[2024-02-24 07:31] VITALS: BP 121/56; PULSE 56; RESP 15; TEMP 36.3; O2SAT 96
[2024-02-24] MEDS: Famotidine 20 MG Tablet PO (07:41)
[2024-02-24] MEDS: Aspirin E.C. 81 MG Tablet PO (07:41)
[2024-02-24] MEDS: Cholecalciferol (VIT D3) 25 MCG TABLET (1,000 UNITS) 50 MCG PO (07:41)
[2024-02-24] MEDS: amLODIPine 2.5 MG Tablet 5 MG PO (07:42)
[2024-02-24] MEDS: Multivitamins,Therapeutic Tablet 1 TABLET PO (07:43)
--- NOTE | 2024-02-24 11:35 | CASEMGMT ---
Social Work SW received a call from Physician, Dr. Maya requesting for discharge to be arranged for 02/27/2024. GEORGES contacted [facility] and spoke with maryam, Ifeoma to notify of discharge date. Ifeoma inquired about SOC initiating on Friday 03/02. SW consulted Physician to discuss delay in start of care for home health care services. SW awaiting Physician input regarding discharge plans AMINATA Bazan
--- NOTE | 2024-02-24 11:36 | PCM.PROGNOTE ---
Subjective Subjective Afebrile VSS -systolic is always mildly elevated in the evenings and at night. Blood pressure in the morning when she gets up and is within goal. Heart rate is stable in the 50s and she denies lightheadedness and fatigue. Maintaining appropriate oxygen saturation on RA Oral intake - FOOD good FLUIDS good Discussed with nursing - no problems that need addressed. Sleeping well at night with regular bowel function. Reviewed the THERAPY notes Medication list reviewed. Kiesha is a little anxious about discharge. Asking me again if we will schedule appointments for her and if she will get a list of medications and how long she will be on home health, etc. she tells me she is still sleeping well at night. Denies dysuria, cough, night sweats, nausea/vomiting/heartburn, calf pain and lightheadedness. Objective Data Objective Data Vital Signs: Vital Signs Temp Pulse Resp BP Pulse Ox O2 Del Method O2 Flow Rate 97.4 F L 56 L 15 121/56 H 96 Room Air 2 02/24/24 07:31 02/24/24 07:31 02/24/24 07:31 02/24/24 07:31 02/24/24 07:31 02/24/24 09:45 02/23/24 22:00 Oxygen Flow Rate (L/min) 2 Oxygen Delivery Method Room Air Weight: 194 lb 0.108 oz Body Mass Index (BMI) 30.4 Intake & Output: Intake and Output for Last 24 Hours 02/22/24 02/23/24 02/24/24 23:59 23:59 23:59 Intake Total 1770 / 1770 1940 / 1940 250 / 250 Output Total 1999 / 1999 1200 / 1800 900 / 900 Balance -230 / -230 740 / 140 -650 / -650 Lab / Micro Data 02/19/24 05:15 02/19/24 05:15 Micro: Microbiology 01/26/24 15:20 Stool Stool Occult Blood (JOE) - Final 01/12/24 06:21 Urine Catheter - Catheter Urine Culture - Final Presumptive E. coli Physical Exam Const alert and no apparent distress Constitutional Narrative: Sitting in the recliner at the bedside with her legs dependent and looks very comfortable. FLORY hose are in place and there is minimal ankle swelling. General Appearance: cooperative Resp Resp Narrative: Minimal coarse crackles in the bases which are chronic. Normal respiratory effort with good air exchange. Cardio regular rhythm and no gallops Cardio Narrative: No ectopy Rate: bradycardia GI normal to inspection, nondistended, normoactive bowel sounds, soft to palpation and non-tender Extremity no calf tenderness Extremity Narrative: Trace edema just at the ankles. Well-controlled with FLORY hose Skin General Skin Exam: no breakdown Rashes: no rashes Assessment & Plan Assessment/Plan (1) Physical debility: (2) Contusion of spinal cord: (3) Cervical stenosis of spinal canal: (4) LeFort I fracture: QUALIFIERS: Encounter type: subsequent encounter Fracture type: closed (5) Hyponatremia: (6) Neuropathy: (7) Myopathy: (8) Bradycardia: (9) Urine incontinence: QUALIFIERS: Urinary Incontinence type: urge incontinence Qualified Code(s): N39.41 - Urge incontinence (10) GERD (gastroesophageal reflux disease): QUALIFIERS: Esophagitis presence: esophagitis presence not specified Qualified Code(s): K21.9 - Gastro-esophageal reflux disease without esophagitis PLAN: Resolved with addition of famotidine to the drug regimen. PLAN: Plan 1. Continue therapy 2. Plan discharge for this coming Friday. I notified the social and human services assistant of the plans for discharge. She will have home health care at discharge. 3. Lab ordered for tomorrow. 4. The BP's in the evening and at bedtime are elevated. AM BP is good. This may be related to anxiety. Does not tolerate beta blockers due to baseline bradycardia. Will add a dose of Lisinopril with supper. 2.5 mg. Will have nursing check the blood pressure every 4 hours while awake for the next 72 hours. Charges/Coding Visit Charges Inpatient E&M: 29402 Subs Hosp L1
[2024-02-24 13:41] VITALS: BP 133/51; PULSE 60
[2024-02-24] MEDS: Lisinopril 2.5 MG Tablet PO (17:38)
[2024-02-24 18:00] VITALS: BP 128/53
[2024-02-24] MEDS: MELATONIN 3 MG TABLET PO (21:45)
[2024-02-24] MEDS: Atorvastatin Calcium 20 MG Tablet PO (21:46)
[2024-02-24] MEDS: Miconazole Nitrate 43 GM Bottle 1 APPLIC TOPICAL (21:46)
[2024-02-24] MEDS: Paroxetine 20 MG Tablet PO (21:46)
[2024-02-24 21:51] VITALS: BP 141/60; PULSE 53; RESP 16; TEMP 36.6; O2SAT 96
[2024-02-24 21:58] VITALS: PULSE 56; RESP 15; O2SAT 94
[2024-02-25] MEDS: Enoxaparin 40 MG/0.4 ML Syringe SC (04:55)
[2024-02-25] MEDS: Menthol/Lanolin/Calamine/Znox 113 GM Tube 1 APPLIC TOPICAL ×3 (04:55→21:39)
[2024-02-25] MEDS: Acetaminophen 500 MG Tablet 1000 MG PO ×3 (04:55→21:40)
[2024-02-25 05:59] LABS: Hematocrit 34.4 % (37-47); Hemoglobin 11.4 g/dL (12.0-15.0); Mean Corp Hgb Conc 33.1 g/dL (32-36); Mean Corpuscular Hgb 29.7 pg (27.0-32.0); Mean Corpuscular Volume 89.6 fL (81-99); Mean Platelet Vol. 10.3 fl (6.2-12.0); Platelet Count 174 K/mm3 (150-450); RBC Distribution Width CV 14.7 % (11.6-14.6); RBC Distribution Width SD 48.2 fl (35.1-43.9); Red Blood Count 3.84 M/mm3 (4.2-5.4); White Blood Count 5.5 K/mm3 (4.4-11.0)
[2024-02-25 06:00] VITALS: BP 125/48; PULSE 56; RESP 15; TEMP 36.6; O2SAT 95; BMI 30.2
[2024-02-25 06:35] LABS: Anion Gap 9 (5-15); BUN 15 mg/dL (7-18); BUN/Creat Ratio 21.4 RATIO (10-20); Calcium,Total 9.6 mg/dL (8.5-10.1); Chloride 100 mmol/L (98-107); EST Glomerular Filtration Rate 85 mL/min (>60); Est Glom Filt Rate - Afr Amer 103 mL/min (>60); Glucose 91 mg/dL (74-106); Magnesium 1.8 mg/dL (1.6-2.6); Potassium 3.9 mmol/L (3.5-5.1); Sodium Level 133 mmol/L (136-145)
[2024-02-25] MEDS: Multivitamins,Therapeutic Tablet 1 TABLET PO (07:52)
[2024-02-25] MEDS: Aspirin E.C. 81 MG Tablet PO (07:52)
[2024-02-25] MEDS: Cholecalciferol (VIT D3) 25 MCG TABLET (1,000 UNITS) 50 MCG PO (07:53)
[2024-02-25] MEDS: amLODIPine 2.5 MG Tablet 5 MG PO (07:53)
[2024-02-25] MEDS: Famotidine 20 MG Tablet PO (07:53)
[2024-02-25 09:50] VITALS: BP 108/57; PULSE 59; RESP 16; TEMP 36.2; O2SAT 96
--- NOTE | 2024-02-25 10:04 | CASEMGMT ---
Social Work SW met with patient and therapy to discuss delay in start of care for home health care. Patient informed SW that she is agreeable to discharge home on 02/27/2024 with delay in SOC for [facility] HH on 03/02. Patient and therapy informed SW that sister was comfortable with training to support patient through weekend. Discharge: 02/27/2024 Home with [facility] PT/OT/SN/FIRE SAFETY MANAGER; SOC Friday 03/02 AMINATA Bazan
[2024-02-25 14:00] VITALS: BP 140/46; PULSE 63
[2024-02-25] MEDS: Lisinopril 2.5 MG Tablet PO (16:43)
[2024-02-25 17:54] VITALS: BP 146/46
[2024-02-25] MEDS: Miconazole Nitrate 43 GM Bottle 1 APPLIC TOPICAL (21:38)
[2024-02-25] MEDS: Atorvastatin Calcium 20 MG Tablet PO (21:39)
[2024-02-25] MEDS: Paroxetine 20 MG Tablet PO (21:39)
[2024-02-25] MEDS: MELATONIN 3 MG TABLET PO (21:43)
[2024-02-25 21:51] VITALS: BP 122/51; PULSE 55; RESP 16; TEMP 36.7; O2SAT 96
[2024-02-25 22:00] VITALS: PULSE 55; RESP 16; O2SAT 96
[2024-02-26] MEDS: Enoxaparin 40 MG/0.4 ML Syringe SC (04:46)
[2024-02-26] MEDS: Menthol/Lanolin/Calamine/Znox 113 GM Tube 1 APPLIC TOPICAL ×3 (04:46→21:51)
[2024-02-26] MEDS: Acetaminophen 500 MG Tablet 1000 MG PO ×3 (04:47→21:50)
[2024-02-26 06:00] VITALS: BP 131/49; PULSE 55; RESP 17; TEMP 36.7; O2SAT 97
[2024-02-26] MEDS: amLODIPine 2.5 MG Tablet 5 MG PO (08:18)
[2024-02-26] MEDS: Famotidine 20 MG Tablet PO (08:18)
[2024-02-26] MEDS: Cholecalciferol (VIT D3) 25 MCG TABLET (1,000 UNITS) 50 MCG PO (08:18)
[2024-02-26] MEDS: Multivitamins,Therapeutic Tablet 1 TABLET PO (08:18)
[2024-02-26] MEDS: Aspirin E.C. 81 MG Tablet PO (08:18)
[2024-02-26 10:00] VITALS: BP 134/65; PULSE 58; RESP 16; TEMP 36.5; O2SAT 97
--- NOTE | 2024-02-26 11:42 | PCM.PROGNOTE ---
Subjective Subjective Kiesha was seen on team rounds today and her Sister Susanne was present in the room. Afebrile VSS -blood pressures over the past 24 hours has ranged from 108/57 to 146/46 on amlodipine 5 mg daily lisinopril 2 mg daily. She is persistently bradycardic but her heart rate now ranges from 55-63. When she first came to rehab her heart rate was persistently in the 40s. She has been asymptomatic for the duration of her stay in acute rehab. TSH and T4 are both within normal limits. Maintaining appropriate oxygen saturation on RA Oral intake - FOOD good FLUIDS good Discussed with nursing - no problems that need addressed Reviewed the THERAPY notes Medication list reviewed. Kiesha denies cephalgia, lightheadedness, chest pain, shortness of breath, cough, nausea/vomiting/abdominal pain, dysuria and calf tenderness. She does have some discomfort in her neck where the [place] collar rubs but with padding that has improved. Objective Data Objective Data Vital Signs: Vital Signs Temp Pulse Resp BP Pulse Ox O2 Del Method O2 Flow Rate 97.7 F L 58 L 16 134/65 H 97 Room Air 2 02/26/24 10:00 02/26/24 10:00 02/26/24 10:00 02/26/24 10:00 02/26/24 10:00 02/26/24 10:00 02/23/24 22:00 Oxygen Flow Rate (L/min) 2 Oxygen Delivery Method Room Air Weight: 192 lb 10.944 oz Body Mass Index (BMI) 30.2 Intake & Output: Intake and Output for Last 24 Hours 02/24/24 02/25/24 02/26/24 23:59 23:59 23:59 Intake Total 1350 / 1350 1900 / 1900 580 / 580 Output Total 2100 / 2100 1120 / 1120 450 / 450 Balance -750 / -750 780 / 780 130 / 130 Lab / Micro Data 02/25/24 05:04 02/25/24 05:04 Micro: Microbiology 01/26/24 15:20 Stool Stool Occult Blood (JOE) - Final 01/12/24 06:21 Urine Catheter - Catheter Urine Culture - Final Presumptive E. coli Physical Exam Const alert, oriented x3 and no apparent distress General Appearance: cooperative Orientation / Consciousness: Negative for confused HEENT Mouth: dry mucous membranes Neck Neck Narrative: Cervical collar is in place. Has some pain in the Left trapezius at the ridge.......this has been a recurrent problem and she has some muscle spasm. No radiation of pain into the UE's General: trachea midline Resp normal respiratory effort and normal air movement Resp Narrative: No conversational dyspnea, able to speak in complete sentences. She has crackles in the bases which are persistent after several deep breaths and this is chronic. Effort and Inspection: Negative for tachypneic Cardio regular rhythm, no murmurs, no rub and no gallops Cardio Narrative: No ectopy Rate: bradycardia GI normal to inspection, nondistended, normoactive bowel sounds, soft to palpation and non-tender GI Narrative: Having regular bowel movements. No guarding with palpation. Extremity no calf tenderness General Extremity: Negative for edema Skin General Skin Exam: no breakdown Rashes: no rashes Psych affect normal Psych Narrative: Thought process is normal. Appearance: appropriate Attitude: No agitated Activity / Motor Behavior: Negative for restless Assessment & Plan Assessment/Plan (1) Physical debility: (2) Contusion of spinal cord: (3) Cervical stenosis of spinal canal: (4) LeFort I fracture: QUALIFIERS: Encounter type: subsequent encounter Fracture type: closed (5) Hyponatremia: (6) Neuropathy: (7) Myopathy: (8) Bradycardia: (9) Urine incontinence: QUALIFIERS: Urinary Incontinence type: urge incontinence Qualified Code(s): N39.41 - Urge incontinence PLAN: Plan 1. Plan discharge home tomorrow with home health care 2. Venous ultrasound of the right lower extremity. If the soleus clot has resolved will discontinue any anticoagulation and discharge. If the clot is still present will likely discharge on Eliquis 2.5 mg twice daily and have her follow-up with Dr. Monsivais is going forward. Charges/Coding Visit Charges Inpatient E&M: 49391 Subs Hosp L1
--- NOTE | 2024-02-26 13:34 | CASEMGMT ---
Addendum entered by Linden Flores 02/26/24 18:41: Patient was provided Important Message from Medicare Letter and [employer] appeal information. SW reviewed patient's Medicare Rights. Patient provided verbal understanding of Medicare Rights and signature for letter. SW left patient at copy of IMM and placed copy in chart. Original Note: Social Work- Teams Meeting IDT met with patient and sister at bedside to complete teams meeting. Discussed patient progress for with therapy (PT/OT) and nursing. Patient remains contact guard and assistance for ambulation, ramp ambulation. Patient obtains assistance for bathing and toileting. Patient informed SW that she has a Physician Appointment on Friday at 930A. Patient inquired about home health care services initiating on Friday. SW informed patient that [facility] will be in touch to arrange follow up appointment. Patient anticipates discharge home with home health care 02/27/2024. Sister to provide transportation home after 1PM. Discharge 02/27/2024 Home with [facility] PT/OT/SN/ACADEMIC SUPPORT DIRECTOR- SOC Friday 03/02 AMINATA Bazan
[2024-02-26 14:00] VITALS: BP 109/39; PULSE 57
[2024-02-26] MEDS: Lisinopril 2.5 MG Tablet PO (17:07)
[2024-02-26 17:58] VITALS: BP 129/57; PULSE 61
--- NOTE | 2024-02-26 18:04 | PCM.DC ---
Discharge Instructions Diet Discharge Diet: - (Low fat) Activity Discharge Activity: May Not Drive, May Shower and Use Walker Weight Bearing Status: Full weight bearing Keep extremity elevated above heart level: Legs Dressing / Incision Call your doctor if you observe: Fever of 101 or Higher, Inability to urinate, Inability to have a bowel movement, Shortness of breath, Dizziness, Fainting spells, Swelling in the ankles, Chest pain, Increased palpitations (irregular heartbeat), Calf discomfort, Uncontrolled pain and - (STROKE symptoms: facial droop, slurred speech, inability to get words out, weakness on 1 side of the body and not the other, numbness on 1 side of the body and not the other, inability to maintain your balance sitting or standing, vertigo. ) Follow Up Care When: You have follow-up appointments that have been scheduled for you with Dr. Akbar, Dr. Yodit ghosh and . Test Results: Test results from this visit will be discussed in further detail at your follow-up appointment, if applicable. 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 Attending Provider: Kiesha Maya Primary Care Provider: Angelika Monsivais Instructions Additional Instructions / Restrictions: 1. Kiesha you have done a great job on rehab! I am happy you will be able to go home and not to correction. Remember to keep doing the exercises given to you by the therapists at least once a day so you don't regress. 2. Your sodium is mildly decreased in the blood but, it is stable at about 133-135. Normal is 135-145. No need for treatment of low sodium at this time. 3. You have a mild anemia (this means the red blood cells are a tad low.........it is stable and you do not require any treatment for this at this time. 4. Most accidents in the home happen in the bathroom. Have someone supervise you getting into the shower, at least for the couple weeks you are home. 5. Use the walker to ambulate until the therapists it is OK to use a cane. 6. No driving. 7. You need to continue wearing the neck brace until Dr. Barber tells you you can take it off. When you do get the collar off your neck will be weak and you will need additional therapy to strengthen the muscles. 8. If you have any change in the pain, weakness or numbness in the arms or legs call your doctor immediately or go to the ED. 9. I have enjoyed talking with you and getting to know you. If you or your family has any questions after you leave rehab please do not hesitate to call me. I will send a copy of your discharge summary to Dr. Akbar, Dr. Monsivais and Dr. Barber. OFFICE: [phone] NURSES Station: [phone] CELL: [phone] Discharge Orders/Prescriptions Prescriptions: New amlodipine 2.5 mg Tablet 5 mg PO DAILY Qty: 30 0RF lisinopril 2.5 mg Tablet 2.5 mg PO 1700 Qty: 30 0RF Rx Instructions: This is for BP Continued aspirin [Adult Low Dose Aspirin] 81 mg tablet,delayed release (DR/EC) 81 mg PO DAILY multivitamin 1 EACH tablet 1 ea PO DAILY Patient Comments: supplement atorvastatin 20 MG tablet 20 mg PO QHS Patient Comments: lower cholesterol paroxetine HCl 20 MG tablet 20 mg PO DAILY Patient Comments: mood enhancer cholecalciferol (vitamin D3) 25 mcg (1,000 unit) tablet 50 mcg PO DAILY Patient Comments: supplement acetaminophen [Tylenol] 325 mg Tablet 1,000 mg PO TID PRN PRN (Reason: Pain Score 1-10/Temp > 100.7 F) melatonin 3 mg capsule 3 mg PO QHS PRN (Reason: Sleep) omeprazole 20 mg capsule,delayed release(DR/EC) 20 mg PO DAILY Qty: 30 0RF Discontinued amlodipine 2.5 MG tablet 2.5 mg PO DAILY bisacodyl [Dulcolax (bisacodyl)] 10 mg suppository 10 mg WA DAILY PRN (Reason: constipation) dexamethasone 2 mg tablet 2 mg PO BID sennosides-docusate sodium [Senna with Docusate Sodium] 8.6-50 mg tablet 1 tab-cap PO BID miconazole nitrate 2 % powder 1 applic topical BID nystatin 100,000 unit/mL suspension 100,000 unit PO DAILY Rx Instructions: administer 1/2 of dose in each side of the mouth polyethylene glycol 3350 [Miralax] 17 gram/dose powder 17 g PO DAILY No Action enoxaparin [Lovenox] 40 mg/0.4 mL syringe 40 mg subcut DAILY Referrals / Follow Up: Halina Barber-Neurosurgery [Other] - 03/02/24 9:30 am Napoleon Akbar MD [Med Staff - Active Staff] - 03/08/24 9:30 am Angelika Monsivais MD [Primary Care Provider] - 03/08/24 2:00 pm Disposition Disposition (needs filled in before D/C Order can be placed): Home Health Service
--- NOTE | 2024-02-26 18:35 | PCM.DC.SUM ---
Providers Date of Admission: 01/11/24 Date of Discharge: 02/27/24 Primary Care Physician: Dr. Angelika Monsivais MD Reason For Visit: CENTRAL CORD SYNDROME Diagnosis Discharge Diagnosis (1) Physical debility: Status: Acute Code(s): R53.81 - Other malaise (2) Contusion of spinal cord: Status: Acute (3) Cervical stenosis of spinal canal: Status: Acute Code(s): M48.02 - Spinal stenosis, cervical region (4) LeFort I fracture: Status: Acute Code(s): S02.411A - LeFort I fracture, initial encounter for closed fracture Qualifiers: Encounter type: subsequent encounter Fracture type: closed (5) Hyponatremia: Status: Acute Code(s): E87.1 - Hypo-osmolality and hyponatremia Plan: Stable at 133-135 at OR. (6) Neuropathy: Status: Acute Code(s): G62.9 - Polyneuropathy, unspecified (7) Myopathy: Status: Acute Code(s): G72.9 - Myopathy, unspecified (8) Bradycardia: Status: Acute Code(s): R00.1 - Bradycardia, unspecified (9) Urine incontinence: Status: Chronic Code(s): R32 - Unspecified urinary incontinence Qualifiers: Urinary Incontinence type: urge incontinence Qualified Code(s): N39.41 - Urge incontinence (10) GERD (gastroesophageal reflux disease): Status: Chronic Code(s): K21.9 - Gastro-esophageal reflux disease without esophagitis Qualifiers: Esophagitis presence: esophagitis presence not specified Qualified Code(s): K21.9 - Gastro-esophageal reflux disease without esophagitis Plan: Resolved with addition of famotidine to the drug regimen. (11) Urine retention: Status: Resolved Code(s): R33.9 - Retention of urine, unspecified (12) Pancytopenia, acquired: Status: Resolved Code(s): D61.818 - Other pancytopenia Plan: This resolved with discontinuation of Pantoprazole. She was on Omeprazole prior to hospitalization and she was not pancytopenic so she will resume once daily in the AM at OR. she tolerated Famotidine while on acute rehab with no adverse side effects. Plan 1. Discharge home with home health care and the assistance of her Sister Susanne on 02/27/2024. 2. Will continue to wear the cervical collar 28/04 until she sees neurosurgery. 3. Appointments have been made for her to follow-up with her PCP, Dr. Presley, Dr. Akbar and Dr. Barber 4. Pain is controlled with just Tylenol at the time of DC from rehab. 5. No driving Medications at Discharge Home Medications atorvastatin 20 mg tablet 20 mg PO QHS Cholesterol 12/15/15 multivitamin 1 ea PO DAILY Supplement 12/15/15 paroxetine HCl 20 mg tablet 20 mg PO DAILY Depression 12/15/15 aspirin 81 mg tablet,delayed release (Adult Low Dose Aspirin) 81 mg PO DAILY Heart 07/19/22 cholecalciferol (vitamin D3) 25 mcg (1,000 unit) tablet 50 mcg PO DAILY Supplement 07/19/22 acetaminophen 325 mg tablet (Tylenol) 1,000 mg PO TID PRN PRN Pain Score 1-10/Temp > 100.7 F 01/11/24 enoxaparin 40 mg/0.4 mL subcutaneous syringe (Lovenox) 40 mg subcut DAILY Blood thinner 01/11/24 melatonin 3 mg capsule 3 mg PO QHS PRN Sleep 01/11/24 amlodipine 2.5 mg tablet 5 mg (2 x 2.5 mg) PO DAILY #30 tabs 02/26/24 lisinopril 2.5 mg tablet 2.5 mg PO 1700 #30 tabs 02/26/24 omeprazole 20 mg capsule,delayed release 20 mg PO DAILY Stomach acid #30 caps 02/26/24 Hospital Course Operations None Procedures None Summary of Care Provided Minutes Spent on Discharge: 40 Hospital Course: LANE CHERRY, is a 83 YO F with a PMH of HTN, GERD, hiatal hernia, hyperlipidemia, HCARLENE (on CPAP), peripheral neuropathy, RA (not on medication), vitamin D deficiency, osteoarthritis and anxiety/depression who presented to [facility] on 12/27/[facility] after falling forward and striking her face when stepping off a curb. CT of the head and neck was negative for acute pathology but, she had weakness in the RUE and RLE so she was transferred to [facility] in [place]. MRI of the cervical spine at [place] showed multilevel degenerative changes with severe canal stenosis and cord deformity at C5-C6 and moderate to severe canal stenosis at C6-C7. There was prevertebral edema from C4-T3 and a probable acute cord contusion at C6. There were varying degrees of neuroforaminal stenosis, most severe on the left at C4-C5. The thoracic spine showed fluid in the L2-L3 disc space with surrounding edema and adjacent soft tissue edema. Lumbar spine MRI showed right subarticular inferiorly migrated extrusion at L2-L3 which moderately narrows the right lateral recess. There was fluid signal in the L2-L3 disc with surrounding marrow edema and adjacent edema in the right psoas muscle and surrounding soft tissues. MRI of the thoracic spine showed fluid in the L2-3 disc space with surrounding edema and adjacent soft tissue edema. There was mild edema in the prevertebral space extending from the cervical spine through T3. Additional imaging showed a R sided LeFort I facial fracture, Left hand DISI deformity and a possible distal R ulna fracture. She was seen by ENT in the emergency department and they did not recommend any further imaging or surgery. She was started on steroids and neurosurgery/orthopedics were consulted. She was taken to the operating room on 12/31/2023 for C5-C6 laminectomy however, during prone positioning for surgery neuro signals were lost and therefore surgery was aborted and canceled and she was placed in the supine position again. The neuro signals returned when she was supine. She had significant bradycardia in the 35-40 range and she was seen by cardiology. An ECHO was done and showed an ejection fraction of 60 to 65% with no wall motion abnormalities. She had normal diastolic function. Right ventricular systolic pressure was estimated at 24 mmHg. There was mild pulmonic valve regurgitation and trivial tricuspid regurgitation. Both atria were of normal size. Cardiology recommended a 2-week event monitor at discharge from [facility]. This will be mailed to her house and when the family brings the monitor in we will apply. On 01/09/2024 cardiology endorsed that she could be discharged to acute rehab. On physical examination she was able to lift her left leg off the bed without difficulty. Left upper extremity hand grasp, triceps, biceps were strong. She is still weak in the right upper extremity and can barely grasp with her right hand but she is able to move the third fourth and fifth digits. The right leg was weak but she had some knee flexion. She had barely any dorsiflexion on the right and had weak plantarflexion. She complained of numbness in her bilateral hands, right greater than left. Lane was transferred to the acute inpt rehab unit at [facility] on 01/11/24 for 3 hours of therapy daily to restore function/independence at or near her level prior to the fall. At presentation to rehab Lane had a UTI due to E. Coli and this was treated with no recurrence. She was retaining urine and had a Rowland catheter. She passed a voiding trial prior to DC from rehab and the Rowland was discontinued. She has chronic urge incontinence, melisa in the AM when first arising, and this is present at DC. 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 We did not restrict fluids since she was also mildly dehydrated at admission. She was placed on salt tabs which were discontinued a couple weeks prior to DC from rehab and the sodium has been stable at 133-135. Lane had swelling of both lower extremities at admission but did not have compression stockings on. Venous ultrasound of the lower extremities was obtained because she also complained of right calf pain. There was DVT present in the soleus vein and she was placed on Lovenox 40 mg subcu daily. The right calf pain resolved. She has mild ankle edema bilaterally that is controlled with FLORY hose at discharge. A venous US was completed prior to DC and it showed the clot had resolved. She was not discharged on anticoagulation. Lane did quite well in therapy and made steady progress. At the time of DC from rehab she is able to do shower transfers at min assist. She has ambulated up to 145 feet at contact-guard assist with a wheeled walker. She is able to bathe her upper body at set up and her lower body with minimal assistance for thoroughness. She is contact-guard assist/standby assist for toilet transfer using a 3 in 1 commode over the toilet and also requires min to mod assist with toileting tasks. She needs minimal assistance for lower body bathing and lower body dressing using adaptive equipment. She is using a lift seat cushion to assist with standing and requires only minimal assistance. She is able to ascend/descend a curb step with a front wheeled walker at contact-guard assist/min assist and she is able to navigate a ramp up and down 50 feet. She needs to sidestep for the last 12 feet due to the slope of the ramp at home. Prior to discharge Lane's Sister Susanne came in for family training/shared care and both Lane and Susanne feel comfortable that Susanne will be able to provide adequate assistance at home. Lane has follow-up appointments with her primary care doctor, Dr. Angelika Monsivais, her document management technician Dr. Akbar and with Dr. Ocasio. She will continue to wear the cervical collar until she is told by neurosurgery that she can discontinue the collar. She knows she is not allowed to drive. She was instructed to continue doing the exercises given to her by the therapist at least once daily. Home health care was arranged by the social media manager prior to discharge. She will be seen on 03/02/2024 for the first time. Physical Exam Const alert, oriented x3 and no apparent distress General Appearance: cooperative Orientation / Consciousness: Negative for confused HEENT Mouth: dry mucous membranes Neck Neck Narrative: Cervical collar is in place. Has some pain in the Left trapezius at the ridge.......this has been a recurrent problem and she has some muscle spasm. No radiation of pain into the UE's General: trachea midline Resp normal respiratory effort and normal air movement Resp Narrative: No conversational dyspnea, able to speak in complete sentences. She has crackles in the bases which are persistent after several deep breaths and this is chronic. Effort and Inspection: Negative for tachypneic Cardio regular rhythm, no murmurs, no rub and no gallops Cardio Narrative: No ectopy Rate: bradycardia GI normal to inspection, nondistended, normoactive bowel sounds, soft to palpation and non-tender GI Narrative: Having regular bowel movements. No guarding with palpation. Extremity no calf tenderness General Extremity: Negative for edema Skin General Skin Exam: no breakdown Rashes: no rashes Neuro CN's II-XII intact bilaterally Neuro Narrative: She denies numbness in the R leg now. She had a little pain in the R LE when the US tech was doing the venous doppler but, she denies pain unless she is pressing on that area. The US showed no DVT. Psych affect normal Psych Narrative: Thought process is normal. Appearance: appropriate Attitude: No agitated Activity / Motor Behavior: Negative for restless Weight / BMI Weight Weight: 192 lb 10.944 oz Body Mass Index (BMI) 30.2 ABG / Lab / Microbiology Data 02/25/24 05:04 02/25/24 05:04 Microbiology: Microbiology 01/26/24 15:20 Stool Stool Occult Blood (JOE) - Final 01/12/24 06:21 Urine Catheter - Catheter Urine Culture - Final Presumptive E. coli D/C Instructions Discharge Diet: - (Low fat) Weight Bearing Status: Full weight bearing Keep extremity elevated above heart level: Legs Call your doctor if you observe: Fever of 101 or Higher, Inability to urinate, Inability to have a bowel movement, Shortness of breath, Dizziness, Fainting spells, Swelling in the ankles, Chest pain, Increased palpitations (irregular heartbeat), Calf discomfort, Uncontrolled pain and - (STROKE symptoms: facial droop, slurred speech, inability to get words out, weakness on 1 side of the body and not the other, numbness on 1 side of the body and not the other, inability to maintain your balance sitting or standing, vertigo. ) Pending Tests Upon Discharge: none When: You have follow-up appointments that have been scheduled for you with Dr. Akbar, Dr. Yodit ghosh and . Meaningful Use Info Meaningful Use Meaningful Use Diagnoses (Choose all that apply): None applicable Ischemic Stroke Statin Dosing Therapy Reference: STATIN DOSE THERAPY REFERENCE: * Patients > 75 years receive moderate or high dose statin therapy. * Patients 75 years or YOUNGER should receive HIGH intensity statin dose unless contraindicated. You will be required to document reason for non-treatment if statin daily dose does not meet guidelines. 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 Attending Provider: Lane Maya Primary Care Provider: Angelika Monsivais Instructions Additional Instructions / Restrictions: 1. Lane you have done a great job on rehab! I am happy you will be able to go home and not to halfway. Remember to keep doing the exercises given to you by the therapists at least once a day so you don't regress. 2. Your sodium is mildly decreased in the blood but, it is stable at about 133-135. Normal is 135-145. No need for treatment of low sodium at this time. 3. You have a mild anemia (this means the red blood cells are a tad low.........it is stable and you do not require any treatment for this at this time. 4. Most accidents in the home happen in the bathroom. Have someone supervise you getting into the shower, at least for the couple weeks you are home. 5. Use the walker to ambulate until the therapists it is OK to use a cane. 6. No driving. 7. You need to continue wearing the neck brace until Dr. Barber tells you you can take it off. When you do get the collar off your neck will be weak and you will need additional therapy to strengthen the muscles. 8. If you have any change in the pain, weakness or numbness in the arms or legs call your doctor immediately or go to the ED. 9. I have enjoyed talking with you and getting to know you. If you or your family has any questions after you leave rehab please do not hesitate to call me. I will send a copy of your discharge summary to Dr. Akbar, Dr. Monsivais and Dr. Barber. OFFICE: [phone] NURSES Station: [phone] CELL: [phone] PS: for the pain in the Left shoulder you can try using Voltaren Gel (available over the counter at the pharmacy) or you can try a TENS unit. This is a nerve stimulatory that helps with muscle spasm. Most pharmacies sell them and you do not need a prescription. Discharge Orders/Prescriptions Prescriptions: New amlodipine 2.5 mg Tablet 5 mg PO DAILY Qty: 30 0RF lisinopril 2.5 mg Tablet 2.5 mg PO 1700 Qty: 30 0RF Rx Instructions: This is for BP Continued aspirin [Adult Low Dose Aspirin] 81 mg tablet,delayed release (DR/EC) 81 mg PO DAILY multivitamin 1 EACH tablet 1 ea PO DAILY Patient Comments: supplement atorvastatin 20 MG tablet 20 mg PO QHS Patient Comments: lower cholesterol paroxetine HCl 20 MG tablet 20 mg PO DAILY Patient Comments: mood enhancer cholecalciferol (vitamin D3) 25 mcg (1,000 unit) tablet 50 mcg PO DAILY Patient Comments: supplement acetaminophen [Tylenol] 325 mg Tablet 1,000 mg PO TID PRN PRN (Reason: Pain Score 1-10/Temp > 100.7 F) melatonin 3 mg capsule 3 mg PO QHS PRN (Reason: Sleep) omeprazole 20 mg capsule,delayed release(DR/EC) 20 mg PO DAILY Qty: 30 0RF Discontinued amlodipine 2.5 MG tablet 2.5 mg PO DAILY bisacodyl [Dulcolax (bisacodyl)] 10 mg suppository 10 mg [place] DAILY PRN (Reason: constipation) dexamethasone 2 mg tablet 2 mg PO BID sennosides-docusate sodium [Senna with Docusate Sodium] 8.6-50 mg tablet 1 tab-cap PO BID miconazole nitrate 2 % powder 1 applic topical BID nystatin 100,000 unit/mL suspension 100,000 unit PO DAILY Rx Instructions: administer 1/2 of dose in each side of the mouth polyethylene glycol 3350 [Miralax] 17 gram/dose powder 17 g PO DAILY No Action enoxaparin [Lovenox] 40 mg/0.4 mL syringe 40 mg subcut DAILY Referrals / Follow Up: Halina Barber-Neurosurgery [Other] - 03/02/24 9:30 am Napoleon Akbar MD [Med Staff - Active Staff] - 03/08/24 9:30 am Angelika Monsivais MD [Primary Care Provider] - 03/08/24 2:00 pm Disposition Disposition (needs filled in before D/C Order can be placed): Home Health Service Charges/Coding Visit Charges Inpatient E&M: 54662 Disch Hosp >30min
--- NOTE | 2024-02-26 19:04 | VDLE_ITS ---
Reason For Study: Right leg swelling RIGHT LEFT GSV is normal. CFV is compressible, spontaneous, phasic, CFV is compressible, spontaneous, phasic, competent, and demonstrates normal competent and demonstrates normal augmentation. augmentation. FV is compressible, spontaneous, phasic, competent and demonstrates normal augmentation. POP V is compressible, spontaneous, phasic, competent and demonstrates normal augmentation. T/P Trunk is compressible. PTV is compressible. RT PerV is compressible. SoleusV is now compressible. Procedure This is a venous duplex using B-mode, color flow and spectral Doppler. Exam performed portable in patient room. A preliminary report was called and/or faxed to Inpatient rehab. VL/Venous Duplex US, Unilateral Interpretation Summary There is no evidence of right lower extremity deep vein thrombosis. Right great saphenous vein appears patent and compressible segmentally. Normal flow patterns left common f emoral vein Resolved right soleus DVT from 01/22/24 Ordering Physician: Kiesha Maya Referring Physician: Angelika Monsivais M.D. Performed By: Brigette Cavazos RVT
[2024-02-26] MEDS: MELATONIN 3 MG TABLET PO (21:49)
[2024-02-26] MEDS: Atorvastatin Calcium 20 MG Tablet PO (21:51)
[2024-02-26] MEDS: Miconazole Nitrate 43 GM Bottle 1 APPLIC TOPICAL (21:51)
[2024-02-26] MEDS: Paroxetine 20 MG Tablet PO (21:51)
[2024-02-26] MEDS: Senna/Docusate Sodium 1 Tablet PO (21:54)
[2024-02-26 22:00] VITALS: BP 110/74; PULSE 64; RESP 16; TEMP 36.7; O2SAT 97
[2024-02-27 06:00] VITALS: BP 129/42; PULSE 59
[2024-02-27] MEDS: Acetaminophen 500 MG Tablet 1000 MG PO ×2 (06:49→13:44)
[2024-02-27] MEDS: Enoxaparin 40 MG/0.4 ML Syringe SC (06:49)
[2024-02-27] MEDS: Menthol/Lanolin/Calamine/Znox 113 GM Tube 1 APPLIC TOPICAL (06:49)
[2024-02-27 08:20] VITALS: PULSE 58; RESP 16; TEMP 36.9; O2SAT 98
[2024-02-27] MEDS: Cholecalciferol (VIT D3) 25 MCG TABLET (1,000 UNITS) 50 MCG PO (08:37)
[2024-02-27] MEDS: amLODIPine 2.5 MG Tablet 5 MG PO (08:37)
[2024-02-27] MEDS: Famotidine 20 MG Tablet PO (08:37)
[2024-02-27] MEDS: Multivitamins,Therapeutic Tablet 1 TABLET PO (08:37)
[2024-02-27] MEDS: Aspirin E.C. 81 MG Tablet PO (08:37)
[2024-02-27 15:00] VITALS: BP 122/78; PULSE 55; RESP 17; TEMP 35.9; O2SAT 96
--- NOTE | 2024-02-27 15:00 | NURSING ---
Discharge to home with sister, verbalized understanding to discharge instructions given.
== END 2024-02-27 15:00 | disposition home health service (06) | DRG 560 ==
PROVIDERS: Admitting Provider Internal Medicine; PCP Internal Medicine; Visit Provider Internal Medicine
DX: S02.411D LeFort I fracture, subsequent encounter for fracture with routine healing (principal); B37.0 Candidal stomatitis; D61.818 Other pancytopenia; E22.2 Syndrome of inappropriate secretion of antidiuretic hormone; E87.1 Hypo-osmolality and hyponatremia; T83.511A Infection and inflammatory reaction due to indwelling urethral catheter, initial encounter; N39.0 Urinary tract infection, site not specified; I82.461 Acute embolism and thrombosis of right calf muscular vein; G60.8 Other hereditary and idiopathic neuropathies; S14.106D Unspecified injury at C6 level of cervical spinal cord, subsequent encounter; I10 Essential (primary) hypertension; I37.1 Nonrheumatic pulmonary valve insufficiency; M48.02 Spinal stenosis, cervical region; R15.9 Full incontinence of feces; G47.33 Obstructive sleep apnea (adult) (pediatric); E78.00 Pure hypercholesterolemia, unspecified; G62.9 Polyneuropathy, unspecified; K21.9 Gastro-esophageal reflux disease without esophagitis; W10.1XXD Fall (on)(from) sidewalk curb, subsequent encounter; E86.0 Dehydration; E55.9 Vitamin D deficiency, unspecified; F41.9 Anxiety disorder, unspecified; Z79.52 Long term (current) use of systemic steroids; Z79.01 Long term (current) use of anticoagulants; Z87.891 Personal history of nicotine dependence; Z79.899 Other long term (current) drug therapy; B96.20 Unspecified Escherichia coli [E. coli] as the cause of diseases classified elsewhere; R33.9 Retention of urine, unspecified; N39.41 Urge incontinence; Y73.1 Therapeutic (nonsurgical) and rehabilitative gastroenterology and urology devices associated with adverse incidents
CPT/HCPCS: 36415; 80048; 80053; 81001; 82024; 82274; 82533; 82570; 83735; 83880; 83930; 83935; 84100; 84300; 84439; 84443; 85025; 85027; 87086; 87088; 87186; 93971; 94668; 97110; 97112; 97116; 97162; 97166; 97530; 97535; 97542; 97760; 97802; J7030; A4216

== ENCOUNTER → 2024-07-30 | Outpatient (CLI) | payer MEDICARE, SELFPAY ==
--- NOTE | 2024-07-30 14:42 | CT_ITS ---
STUDY: CT CERVICAL SPINE WITHOUT CONTRAST REASON FOR EXAM: Female, 84 years old. CERVIAL STENOSIS OF SPINE RADIATION DOSAGE (If Supplied By Facility): CTDIvol = ( 24.23 ) mGy, DLP = ( 437.15 ) mGycm TECHNIQUE: High resolution transaxial imaging was performed without contrast material. Sagittal and coronal images were reconstructed. Individualized dose optimization techniques were used for this CT. COMPARISON: None FINDINGS: Normal craniovertebral junction. There are degenerative changes of the anterior atlantoaxial articulation. Normal odontoid process. There is straightening of the normal cervical lordosis. No demonstrated fracture or compression deformity. No lytic or blastic lesion is present. C2-3: Moderate disc space narrowing with a minor posterior disc spur complex. Mild to moderate bilateral facet joint hypertrophy. Mild left uncovertebral hypertrophy contributing to mild left foraminal stenosis. Normal right neural foramen. Normal central canal. C3-4: Severe disc space narrowing with no significant posterior disc herniation or bulging. Severe left foraminal stenosis with nerve root compression due to severe facet joint and uncovertebral hypertrophy. Mild right foraminal stenosis secondary to uncovertebral hypertrophy. Normal central canal. C4-5: Anterolisthesis of C4-C5 of 2 mm. Moderate to severe disc space narrowing with a diffuse disc osteophyte complex. Severe left foraminal stenosis with nerve root compression due to severe uncovertebral and severe facet joint hypertrophy. Normal right neural foramen. Mild central canal stenosis. C5-6: Severe disc space narrowing with a diffuse disc osteophyte complex and superimposed midline to right paracentral disc protrusion causing moderate central canal stenosis and compression and flattening of the anterior aspect of the cord. Severe right foraminal stenosis with nerve root compression due to severe uncovertebral hypertrophy. Moderate left foraminal stenosis due to uncovertebral and facet joint hypertrophy C6-7: Moderate disc space narrowing with a diffuse disc spur complex. Mild central canal stenosis. Mild bilateral foraminal stenosis. Significant right facet joint hypertrophy and degeneration. . C7-T1: Moderate to severe disc space narrowing with a diffuse disc spur complex. Mild central canal stenosis.. Normal central canal and intervertebral neuroforamina. Normal visualized soft tissue structures. CT/Spine Cervical without Contras IMPRESSION: 1. Moderate to severe multilevel degenerative changes, as described above. Electronically Signed: Wilbert Pagan MD at 10:35 EDT ,
== END | disposition home or self-care (01) ==
LOC: CT 14:38
PROVIDERS: PCP Internal Medicine; Referring Provider Neurological Surgery; Visit Provider Neurological Surgery
DX: M48.02 Spinal stenosis, cervical region (principal)
CPT/HCPCS: 72125

== ENCOUNTER → 2024-08-06 | Outpatient (CLI) | payer MEDICARE, SELFPAY ==
--- NOTE | 2024-08-06 10:24 | MRI_ITS ---
EXAM: MR CERVICAL SPINE WITHOUT INTRAVENOUS CONTRAST CLINICAL INDICATION: STENOSIS TECHNIQUE: Multiplanar and multisequence MR images of the cervical spine without intravenous contrast were performed. COMPARISON: No relevant prior studies available. FINDINGS: VERTEBRAE: Normal alignment of the cervical vertebra to vertebral bodies. Normal vertebral body height. No bone marrow edema. SPINAL CORD: Unremarkable in signal and morphology. SOFT TISSUES: Normal. No prevertebral soft tissue swelling. LYMPH NODES: Normal. There is no cervical adenopathy. DISCS/SPINAL CANAL/NEURAL FORAMINA: C2-C3: Mild disc space narrowing. Mild central disc protrusion and posterior ligamentous redundancy without significant spinal stenosis. No significant neural foraminal narrowing. C3-C4: Mild to moderate disc space narrowing. Mild disc bulging and posterior ligamentous redundancy without significant spinal stenosis. Mild narrowing of the neural foramina noted bilaterally. C4-C5: Moderate disc space narrowing. Mild broad-based disc protrusion and ligamentous redundancy results in mild spinal stenosis. Moderate narrowing of the neural foramina related to bony hypertrophy. C5-C6: Prominent disc space narrowing. Large right Central disc herniation and posterior ligamentous redundancy results in moderate to severe spinal stenosis. Moderate to severe bilateral neural foraminal narrowing related to uncinate joint hypertrophy. C6-C7: Moderate disc space narrowing. Central disc protrusion causes mild narrowing of the spinal canal. Moderate narrowing of the neural foramina related to uncinate joint hypertrophy. C7-T1: Moderate disc space narrowing. Left central disc protrusion causes mild spinal stenosis. Mild narrowing of the neural foramina bilaterally related to facet arthropathy on the right and mild disc bulging on the left. UPPER THORACIC SPINE: T1-2: Large extruded disc on the right causing mild spinal stenosis and prominent right lateral recess stenosis. Moderate narrowing of the neural foramina noted bilaterally related to disc osteophyte complex. MRI/Spine Cervical (Routine) IMPRESSION: 1. Prominent multilevel disc degeneration with disc bulging and protrusion resulting in significant spinal stenosis at C5-6. 2. Prominent right lateral recess stenosis at T1 to secondary to extruded disc. 3. No evidence of cord edema. Electronically Signed: Rivera Tang MD at 16:59 EST ,
== END | disposition home or self-care (01) ==
LOC: MRI 10:20
PROVIDERS: PCP Internal Medicine; Referring Provider Neurological Surgery; Visit Provider Neurological Surgery
DX: M48.02 Spinal stenosis, cervical region (principal)
CPT/HCPCS: 72141

== ENCOUNTER → 2024-09-13 | Outpatient (CLI) | payer MEDICARE, SELFPAY ==
--- NOTE | 2024-09-13 16:55 | RAD_ITS ---
HISTORY: Spondylosis without myelopathy or radiculopathy, lumbosacral trinidad. TECHNIQUE: XR Spine Lumbar 2 or 3 Views. COMPARISON: None. FINDINGS: VERTEBRAE: Vertebral body heights preserved. Degenerative changes of the posterior elements. ALIGNMENT: 2 mm retrolisthesis at T12-L1. Mild levoscoliosis. INTERVERTEBRAL DISCS: Moderate-severe intervertebral disc space narrowing with endplate change, and vacuum disc phenomenon, osteophytes, and facet arthropathy throughout the lumbar spine. RAD/Lumbar Spine 2 or 3 Views IMPRESSION: No acute fracture or dislocation identified in the lumbar spine. Advanced multilevel degenerative change. Electronically Signed: Dana May MD at 10:20 EST ,
== END | disposition home or self-care (01) ==
LOC: RAD 16:54
PROVIDERS: PCP Internal Medicine; Referring Provider Anesthesiology Pain Medicine; Visit Provider Anesthesiology Pain Medicine
DX: M47.817 Spondylosis without myelopathy or radiculopathy, lumbosacral region (principal)
CPT/HCPCS: 72100

== ENCOUNTER 2024-09-18 14:59 | Inpatient (IN) | payer MEDICARE, SELFPAY ==
[2024-09-18 14:59] VITALS: BP 138/51; PULSE 57; RESP 16; TEMP 36.7; O2SAT 100; BMI 29.0
[2024-09-18 15:01] VITALS: BP 138/51; PULSE 56; RESP 16; TEMP 36.7; O2SAT 100
--- NOTE | 2024-09-18 15:28 | EDS_ITS ---
<Statement entered by Kerwin Ureña DO - 09/18/24 20:48> Patient was seen and examined with physician assistant Doty All components of the history and physical confirmed and agreed. 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 Patient states that she has had this in the past and notes that she has a chronic wound to the plantar aspect of the right foot and follows with her sheriff Dr. Foreman. She states that on September 14 her foot became warm and red and she states that she contac christina her sheriff who prescribed her doxycycline which started on the . She states that despite taking this antibiotic her redness is worsening and spreading up her leg. Review of systems: Agree with above Physical exam: Agree with above will add DP pulses +2/4 in the bilateral lower extremities. My exam shows MDM Patient is a 84-year-old female who presented to the emerged part with concern for right lower extremity cellulitis despite being on oral doxycycline since September 15. Patient will have a workup performed here on the differential diagnose includes but not limited to right lower extremity cellulitis, osteomyelitis. Once workup is obtained reviewed she will be reevaluated. Patient CBC reviewed showed no evidence leukocytosis white blood count 7.9, hemoglobin 11.2, plate count normal at 229. Patient sodium was 133, potassium was 4.2, creatinine normal at 0.89. Patient CRP elevated to 38.90 and ESR was noted to be elevated at 52. Patient's x-ray of her foot was reviewed by myself and by radiology which showed round radiolucency projecting over the soft tissue lateral to the fifth MTP joint likely reflects the reported wound cannot exclude subcutaneous air and a gas producing organism. Patient will be given clindamycin and vancomycin. Patient's case was discussed by physician assistant Doty with the sheriff who is recommending admission to the hospital. Patient's case was then discussed with hospitalist Dr. Reyes who will accept the patient for admission. Discussed this with the patient she is agreeable this plan all question concerns answered at bedside. Final impression: Right foot cellulitis Chronic right lower extremity wound Failed outpatient treatment Disposition: Patient will be admitted to the hospital for the valuation management Supervising attending attestation: Kerwin BARRON History of Present Illness Chief Complaint: Cellulitis Narrative Narrative: Patient presenting today with concerns for cellulitis to her right lower extremity. She has had this in the past. She has a chronic wound to the plantar aspect of her right foot and follows with sheriff, Dr. Culp. Her foot became erythematous on 09/14, she contacted her sheriff who prescribed her doxycycline which she started on the . Despite taking the antibiotic her erythema has worsened. She denies any history of diabetes, nausea, or vomiting. She reports having a fever 4 days ago but has not had one since. She has a PMH of HTN and HLD. [facility] Medical History (Updated 09/18/24 @ 18:04 by GIOVANNI Monetjo) Osteoporosis Irregular heart beat Hypertension Contusion of spinal cord Fall Wears glasses Wears dentures Arthritis Low iron High cholesterol History of hiatal hernia GERD (gastroesophageal reflux disease) CPAP (continuous positive airway pressure) dependence Sleep apnea Former smoker Cardiology follow-up encounter History of stress test CHARLENE (obstructive sleep apnea) Rheumatoid arthritis Hiatal hernia Abnormal EKG Essential hypertension Vitamin D deficiency Diverticulosis Anxiety and depression Rash HLD (hyperlipidemia) Other hereditary and idiopathic neuropathies Chronic ulcer of left foot with fat layer exposed Localized edema Venous insufficiency (chronic) (peripheral) Other specified peripheral vascular diseases 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 exposed CHARLENE (obstructive sleep apnea) Abnormal chest CT Lipodermatosclerosis Cellulitis of right leg Home Medications ?Medication ?Instructions ?Recorded ?Last Taken ?Type atorvastatin 20 mg tablet 20 mg PO QHS Cholesterol 12/15/15 09/17/24 History paroxetine HCl 20 mg tablet 20 mg PO DAILY Depression 12/15/15 09/17/24 History aspirin 81 mg tablet,delayed 81 mg PO DAILY Heart 07/19/22 09/18/24 History release (Adult Low Dose Aspirin) cholecalciferol (vitamin D3) 25 50 mcg PO DAILY Supplement 07/19/22 09/17/24 History mcg (1,000 unit) tablet acetaminophen 325 mg tablet 1,000 mg PO TID PRN PRN Pain Score 01/11/24 09/18/24 History (Tylenol) 1-10/Temp > 100.7 F lisinopril 2.5 mg tablet 2.5 mg PO 1700 #30 tabs 02/26/24 09/17/24 Rx omeprazole 20 mg capsule,delayed 20 mg PO DAILY Stomach acid #30 02/26/24 09/18/24 Rx release caps alendronate 70 mg tablet 70 mg PO QWEEK 09/18/24 09/15/24 History amlodipine 5 mg tablet 5 mg PO DAILY 09/18/24 09/18/24 History doxycycline hyclate 100 mg capsule 100 mg PO Q12H 09/18/24 09/18/24 History flaxseed oil 1,000 mg capsule 1,000 mg PO DAILY 09/18/24 09/18/24 History vitamin B complex (Vitamins B 1 cap PO DAILY 09/18/24 09/18/24 History Complex capsule) Allergy/AdvReac Type Severity Reaction Status Date / Time cephalexin (From Keflex) Allergy Unknown rash, Verified 09/18/24 15:01 headaches bee venom protein (honey bee) Allergy Anaphylaxis Verified 09/18/24 15:01 Penicillins Allergy Hives Verified 09/18/24 15:52 pantoprazole (From Protonix) AdvReac Intermediate Thrombocyto Verified 09/18/24 15:01 penia Family History Father Heart disease Mother Colon cancer Sister Colon cancer Brother CVA (cerebral vascular accident) COPD (chronic obstructive pulmonary disease) Surgical History History of esophagogastroduodenoscopy (EGD) History of colonoscopy History of cholecystectomy Hx of appendectomy History of hysterectomy History of bilateral knee replacement Social History household members: spouse housing: house number of children: 1 pets and animals: Yes (1 small dog and 2 outdoor cats) pets and animals: cat(s) and dog(s) leisure activities: other history of recent travel: No Smoking Status: Former smoker Tobacco: How many years used: 20 how long ago did patient quit smokin, 1ppd second hand exposure: Yes alcohol intake: never substance use type: does not use ROS ROS ED Constitutional Constitutional ED: Denies chills or fever(s) Cardiovascular Cardiovascular: Denies chest pain Respiratory/Chest Respiratory/Chest: Denies dyspnea Gastrointestinal Gastrointestinal: Denies abdominal pain, nausea or vomiting Musculoskeletal Musculoskeletal: Denies arthralgias or myalgias Integumentary Reports wounds Neurologic Neurologic: Denies weakness EXAM Physical Exam Const Vital Signs: 09/18/24 14:59 09/18/24 15:01 09/18/24 16:00 Temperature 98.1 F 98.1 F 98 F Temperature Source Temporal Temporal Oral Pulse Rate 57 L 56 L 68 Respiratory Rate 16 16 16 Blood Pressure 138/51 H 138/51 H 146/83 H Blood Pressure Mean 80 80 104 Pulse Ox 100 100 100 Oxygen Delivery Method Room Air Room Air Room Air Positive well nourished, well developed and no apparent distress General Appearance ED: well developed HEENT Reports normocephalic and head/scalp atraumatic Mouth ED: Yes moist mucous membranes normal Eyes PERRL and EOMs intact bilaterally Neck full ROM and supple Chest Wall inspection of chest normal Resp normal respiratory effort and clear to auscultation bilaterally Cardio regular rate and regular rhythm GI soft to palpation, non-tender, non-distended and no masses Back/Spine normal ROM and normal to inspection Extremity normal to inspection and full ROM Neuro oriented x3, CN's II-XII intact bilaterally, moves all extremities, no focal motor deficits and no sensory deficits noted Sensorium / Orientation: awake and alert Psych mental status grossly normal and thought process normal Skin Skin Narrative: Chronic ulcerative nonpurulent wound to the plantar aspect of the right foot near the head of the fifth metatarsal. Erythema, warmth, and edema to the right foot, cellulitis extends to the mid right roberts. Right DP pulse 2+, good cap refill, sensation intact. MDM MDM MDM Narrative Medical decision making narrative: Patient presenting today with cellulitis to the right lower extremity that started 09/14/2024. She has been on doxycycline for the past 3 days and her symptoms are worsening. She has failed outpatient treatment with doxycycline before. She has been admitted for cellulitis in this extremity before. She was MSSA positive in the past. Labs obtained. Her ESR is 52, CRP elevated at 38.9. WBC 7.9. Sodium 133. No kidney dysfunction. Patient initially given IV clindamycin. After her foot x-ray came back it showed possible subcutaneous air and gas producing organism, patient covered with vancomycin. I do feel she would benefit from admission to the hospital given failure of outpatient treatment. I did speak with podiatry, they recommend admission to the hospital. I will speak with hospitalist regarding admission and she will be admitted in stable condition. Lab Data Attestation: I reviewed the patient's lab results. Labs: Laboratory Results - last 24 hr 09/18/24 15:20 WBC 7.9 RBC 3.79 L Hgb 11.2 L Hct 33.6 L MCV 88.7 MCH 29.6 MCHC 33.3 RDW Std Deviation 44.7 H RDW Coeff of Danny 13.7 Plt Count 229 MPV 10.9 Immature Gran % (Auto) 0.500 Neut % (Auto) 62.0 Lymph % (Auto) 25.6 Page % (Auto) 8.8 Eos % (Auto) 2.7 Baso % (Auto) 0.4 Absolute Neuts (auto) 4.9 Absolute Lymphs (auto) 2.01 Nucleated RBC % 0 ESR 52 H Sodium 133 L Potassium 4.2 Chloride 101 Carbon Dioxide 29.0 Anion Gap 4 L BUN 16 Creatinine 0.89 Estim Creat Clear Calc 52.41 Est GFR (MDRD) Af Amer 78 Est GFR (MDRD) Non-Af 64 BUN/Creatinine Ratio 18.0 Glucose 90 Calcium 9.3 C-React Prot Ext Range 38.90 H Radiography X-Ray: Read by ED Physician Diagnostic Testing: Clinical Impression(s) from Imaging Studies Foot X-Ray 09/18/24 15:30 IMPRESSION: Diffusely demineralized bones. Degenerative changes. Diffuse soft tissue swelling. Round radiolucency projecting over the soft tissues lateral to the fifth MTP joint, likely reflects reported wound, cannot exclude subcutaneous air and a gas producing organism. Electronically Signed: Fabiola Escalera MD at 15:49 EST , Discharge Plan Dx/Rx/DC Orders Clinical Impression: Cellulitis of right lower extremity, Chronic wound, Failure of outpatient treatment Disposition Disposition: Acute Care Hospital [facility] Discharge Date/Time: 09/18/24 16:45
--- NOTE | 2024-09-18 15:30 | RAD_ITS ---
INDICATION: wound EXAMINATION/TECHNIQUE: X-RAY - RIGHT XR Foot Min 3 Views 3 VIEWS COMPARISON: June 09, 2022 FINDINGS: SOFT TISSUES: There is diffuse soft tissue swelling. No radiopaque foreign body. BONES/JOINTS: The bones are diffusely demineralized. No acute fracture or subluxation.. There are degenerative changes throughout the foot. There is a radiolucency projecting over the soft tissue along the lateral aspect of the fifth metatarsophalangeal joint consistent with known wound. RAD/Foot min 3 Views IMPRESSION: Diffusely demineralized bones. Degenerative changes. Diffuse soft tissue swelling. Round radiolucency projecting over the soft tissues lateral to the fifth MTP joint, likely reflects reported wound, cannot exclude subcutaneous air and a gas producing organism. Electronically Signed: Fabiola Escalera MD at 15:49 EST ,
[2024-09-18 15:33] LABS: Absolute Lymphocyte Count 2.01 X10^3/uL (0.83-4.51); Absolute Neutrophil Count 4.9 X10^3/uL (2.0-7.7); Basophil# 0.03 X10^3/uL; Basophil% 0.4 % (0-1); Eosinophil# 0.21 X10^3/uL; Eosinophils% 2.7 % (0-5); Hematocrit 33.6 % (37-47); Hemoglobin 11.2 g/dL (12.0-15.0); Lymphocyte # 2.01 X10^3/ul (0.83-4.51); Lymphocyte % 25.6 % (19-41); Mean Corp Hgb Conc 33.3 g/dL (32-36); Mean Corpuscular Hgb 29.6 pg (27.0-32.0); Mean Corpuscular Volume 88.7 fL (81-99); Mean Platelet Vol. 10.9 fl (6.2-12.0); Monocyte# 0.69 X10^3/uL; Monocyte% 8.8 % (0-10); NRBC Flagged by Analyzer 0 % (0-5); Neutrophil # 4.87 X10^3/uL (2.7-7.7); Platelet Count 229 K/mm3 (150-450); RBC Distribution Width CV 13.7 % (11.6-14.6); RBC Distribution Width SD 44.7 fl (35.1-43.9); Red Blood Count 3.79 M/mm3 (4.2-5.4); White Blood Count 7.9 K/mm3 (4.4-11.0)
[2024-09-18 15:48] LABS: Erythrocyte Sedimentation Rate 52 mm/hr (0-30)
[2024-09-18 15:50] LABS: Anion Gap 4 (5-15); BUN 16 mg/dL (7-18); Calcium,Total 9.3 mg/dL (8.5-10.1); Chloride 101 mmol/L (98-107); Creatinine, Serum 0.89 mg/dL (0.55-1.02); EST Glomerular Filtration Rate 64 mL/min (>60); Est Glom Filt Rate - Afr Amer 78 mL/min (>60); Estimated Creatinine Clearance 52.41 ml/min; Glucose 90 mg/dL (74-106); Potassium 4.2 mmol/L (3.5-5.1); Sodium Level 133 mmol/L (136-145)
[2024-09-18 16:00] VITALS: BP 146/83; PULSE 68; RESP 16; TEMP 36.6; O2SAT 100
[2024-09-18] MEDS: Clindamycin 600 MG/50 ML BAG 100 MG IV (16:02)
--- NOTE | 2024-09-18 16:37 | HP.PCM.HOS_ITS ---
[facility] - General General Date of Admission: 09/18/24 Date of Service: 09/18/24 Chief Complaint: Cellulitis HPI Narrative LANE CHERRY, is a 84 F with past medical history of HTN, GERD, hiatal hernia, hyperlipidemia, CHARLENE (on CPAP), peripheral neuropathy, RA (not on medication), vitamin D deficiency, osteoarthritis and anxiety/depression who presents to the ED with concerns regarding right-sided lower limb swelling, pain, redness. The patient has a history of severe cervical stenosis and deformity at C5-C6, moderate to severe canal stenosis at C6-C7, and notes that she has decreased sensation over both her legs for the last few months. Over the last 3 days she has been noticing progressive swelling, pain over her right leg. She had developed wound at the base of her lefttoe in right foot that has not healed over the last few weeks. For this she followed up with podiatry outpatient and was started on oral doxycycline back 3 days back but there has been no response. Due to this she is presenting to the ED today. Previously she had a prolonged stay in January 2024 following a fall at home and was found found to have severe cervical stenosis, surgical laminectomy was attempted but could not be performed. Following her discharge she was at an acute rehab facility before being discharged home. Does not have diabetes, does not smoke, no alcohol use, no other drug use. All her allergies were reviewed At the time of presentation in the ED, BP 140/57, pulse 88, O2 sat 100% on room air, WBC 7.9, hemoglobin 11.2, platelet 229, ESR 52, sodium 133, BUN 16, creatinine 0.8, glucose 90. X-ray foot showed diffuse soft tissue swelling, with underlying bone diffusely demineralized with degenerative changes. [facility] Medical History Contusion of spinal cord Fall CHARLENE (obstructive sleep apnea) Wears glasses Wears dentures Arthritis Low iron High cholesterol History of hiatal hernia GERD (gastroesophageal reflux disease) CPAP (continuous positive airway pressure) dependence Sleep apnea Former smoker Cardiology follow-up encounter History of stress test Rheumatoid arthritis Hiatal hernia Abnormal EKG Essential hypertension Vitamin D deficiency Diverticulosis Anxiety and depression Rash HLD (hyperlipidemia) Other hereditary and idiopathic neuropathies Chronic ulcer of left foot with fat layer exposed Localized edema Venous insufficiency (chronic) (peripheral) Other specified peripheral vascular diseases 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 exposed CHARLENE (obstructive sleep apnea) Abnormal chest CT Lipodermatosclerosis Cellulitis of right leg Home Medications ?Medication ?Instructions ?Recorded ?Last Taken ?Type atorvastatin 20 mg tablet 20 mg PO QHS Cholesterol 12/15/15 09/17/24 History paroxetine HCl 20 mg tablet 20 mg PO DAILY Depression 12/15/15 09/17/24 History aspirin 81 mg tablet,delayed 81 mg PO DAILY Heart 07/19/22 09/18/24 History release (Adult Low Dose Aspirin) cholecalciferol (vitamin D3) 25 50 mcg PO DAILY Supplement 07/19/22 09/17/24 History mcg (1,000 unit) tablet acetaminophen 325 mg tablet 1,000 mg PO TID PRN PRN Pain Score 01/11/24 09/18/24 History (Tylenol) 1-10/Temp > 100.7 F lisinopril 2.5 mg tablet 2.5 mg PO 1700 #30 tabs 02/26/24 09/17/24 Rx omeprazole 20 mg capsule,delayed 20 mg PO DAILY Stomach acid #30 02/26/24 09/18/24 Rx release caps alendronate 70 mg tablet 70 mg PO QWEEK 09/18/24 09/15/24 History amlodipine 5 mg tablet 5 mg PO DAILY 09/18/24 09/18/24 History doxycycline hyclate 100 mg capsule 100 mg PO Q12H 09/18/24 09/18/24 History flaxseed oil 1,000 mg capsule 1,000 mg PO DAILY 09/18/24 09/18/24 History vitamin B complex (Vitamins B 1 cap PO DAILY 09/18/24 09/18/24 History Complex capsule) Allergy/AdvReac Type Severity Reaction Status Date / Time cephalexin (From Keflex) Allergy Unknown rash, Verified 09/18/24 15:01 headaches bee venom protein (honey bee) Allergy Anaphylaxis Verified 09/18/24 15:01 Penicillins Allergy Hives Verified 09/18/24 15:52 pantoprazole (From Protonix) AdvReac Intermediate Thrombocyto Verified 09/18/24 15:01 penia Family History Father Heart disease Mother Colon cancer Sister Colon cancer Brother CVA (cerebral vascular accident) COPD (chronic obstructive pulmonary disease) Surgical History History of esophagogastroduodenoscopy (EGD) History of colonoscopy History of cholecystectomy Hx of appendectomy History of hysterectomy History of bilateral knee replacement Social History household members: spouse housing: house number of children: 1 pets and animals: Yes (1 small dog and 2 outdoor cats) pets and animals: cat(s) and dog(s) leisure activities: other history of recent travel: No Smoking Status: Former smoker Tobacco: How many years used: 20 how long ago did patient quit smokin, 1ppd second hand exposure: Yes alcohol intake: never substance use type: does not use ROS Review of Systems ROS Unobtainable: Denies due to encephalopathy, due to endotracheal tube, due to mental condition, due to mental status or other Constitutional Constitutional: Denies anorexia, change in weight, chills, fatigue, fever(s), malaise, night sweats, weakness or other Eyes Eyes: Denies blurry vision, change in eye color, change in vision, discharge from eye(s), double vision, erythema, eye pain, loss of vision or other ENT HEENT: Denies abnormal hearing, dysphagia, ear pain, epistaxis, headache(s), hearing loss, nasal congestion, nasal discharge, post nasal drip, sinus pressure, sore throat or other Cardiovascular Cardiovascular: Denies chest pain, claudication, dyspnea on exertion, edema, lightheadedness, orthopnea, palpitations, paroxysmal nocturnal dyspnea, rapid heart rate, syncope or other Respiratory/Chest Respiratory/Chest: Denies cough, dyspnea, excessive phlegm production, hemoptysis, productive cough, shortness of breath at rest, shortness of breath with exertion, wheezing or other Gastrointestinal Gastrointestinal: Denies abdominal pain, coffee ground emesis, constipation, diarrhea, dyspepsia, hematemesis, hematochezia, loose stools, melena, nausea, vomiting or other Genitourinary Genitourinary: Denies burning urination, difficulty urinating, dysuria, hematuria, nocturia, urinary frequency, urinary hesitancy, urinary incontinence, urinary urgency or other Musculoskeletal Musculoskeletal: Reports arthralgias, back pain, joint pain and joint stiffness Neurologic Neurologic: Reports numbness and paresthesias Vital Signs Vital Signs Vital Signs: 09/18/24 14:59 09/18/24 15:01 09/18/24 16:00 Temperature 98.1 F 98.1 F 98 F Temperature Source Temporal Temporal Oral Pulse Rate 57 L 56 L 68 Respiratory Rate 16 16 16 Blood Pressure 138/51 H 138/51 H 146/83 H Blood Pressure Mean 80 80 104 Pulse Ox 100 100 100 Oxygen Delivery Method Room Air Room Air Room Air Weight Weight: 185 lb 3.2 oz Body Mass Index (BMI) 29.0 Physical Exam Const alert, oriented x3 and no apparent distress HEENT normocephalic Eyes PERRL and EOMs intact bilaterally Neck no lymphadenopathy Resp normal respiratory effort and no retractions Cardio regular rate and regular rhythm GI normal to inspection, nondistended, normoactive bowel sounds, soft to palpation, non-tender and non-distended Extremity Extremity Narrative: Right leg was diffusely swollen with erythema and warmth consistent with cellulitis. Ulcerated region present on the foot at the base of the fifth toe, no redness around the lesion. Tenderness throughout her foot. Left leg was normal. Right leg cellulitis borders have been marked with skin marking pen. Neuro oriented x3 and CN's II-XII intact bilaterally Psych affect normal Results Medical Records Data Attestation: I reviewed the patient's medical records Lab / Micro Data 09/18/24 15:20 09/18/24 15:20 Labs: Laboratory Results - last 24 hr 09/18/24 15:20: WBC 7.9, RBC 3.79 L, Hgb 11.2 L, Hct 33.6 L, MCV 88.7, MCH 29.6, MCHC 33.3, RDW Std Deviation 44.7 H, RDW Coeff of Danny 13.7, Plt Count 229, MPV 10.9, Immature Gran % (Auto) 0.500, Neut % (Auto) 62.0, Lymph % (Auto) 25.6, Mckenzie % (Auto) 8.8, Eos % (Auto) 2.7, Baso % (Auto) 0.4, Absolute Neuts (auto) 4.9, Absolute Lymphs (auto) 2.01, Nucleated RBC % 0, ESR 52 H, Sodium 133 L, Potassium 4.2, Chloride 101, Carbon Dioxide 29.0, Anion Gap 4 L, BUN 16, Creatinine 0.89, Estim Creat Clear Calc 52.41, Est GFR (MDRD) Af Amer 78, Est GFR (MDRD) Non-Af 64, BUN/Creatinine Ratio 18.0, Glucose 90, Calcium 9.3, C- React Prot Ext Range 38.90 H Imaging Radiology Impression Foot X-Ray 09/18/24 15:30 IMPRESSION: Diffusely demineralized bones. Degenerative changes. Diffuse soft tissue swelling. Round radiolucency projecting over the soft tissues lateral to the fifth MTP joint, likely reflects reported wound, cannot exclude subcutaneous air and a gas producing organism. Electronically Signed: Fabiola Escalera MD at 15:49 EST , Assessment & Plan Assessment/Plan (1) Cellulitis: PLAN: Plan 84-year-old female with past medical history of severe cervical spine stenosis, HTN, GERD, hiatal hernia, hyperlipidemia, CHARLENE (on CPAP), peripheral neuropathy, RA (not on medication), vitamin D deficiency, osteoarthritis and anxiety/depression presents to the ED with concerns regarding right lower extremity cellulitis that has not responded to outpatient treatment with doxycycline. #Cellulitis: -Her last episode of cellulitis was in 06/04/2022, she was treated with IV cefazolin at the time, MRSA screen was negative and she was discharged with levofloxacin. -Given the nonresponse to doxycycline we will start her on IV vancomycin -Podiatry consult, concern regarding osteomyelitis [elevated ESR, underlying ulcer] -MRSA swab -Will hold off MRI for now, reassess after podiatry evaluation -PT/OT evaluation to assess baseline functional status, need for home health care #Cervical cord stenosis -Noted, no inpatient therapy required -Continue home medications #Depression: -She takes paroxetine 20 mg at bedtime, helps her with sleep, no mood disorders currently #Hypertension -Continue amlodipine, lisinopril -Blood pressure is mildly elevated in mild at presentation -Continue to monitor #CHARLENE -Continue home CPAP therapy #Peripheral neuropathy -Continue to monitor #DVT prophylaxis -Start enoxaparin 40 mg subcutaneous daily #Dyslipidemia: Continue home medication Charges/Coding Visit Charges Inpatient E&M: 73986 Init Hosp L2
[2024-09-18 16:38] VITALS: BP 140/57; PULSE 88; RESP 16; TEMP 36.8; O2SAT 100
[2024-09-18] MEDS: Vancomycin HCl 1,250 MG in 0.9% Normal Saline (250mL Bag) 250 ML 167 MG IV (16:41)
--- NOTE | 2024-09-18 17:07 | PCM.RX.CS ---
Consult Antibiotic Management Pharmacy has been consulted to manage selected antibiotic: Vancomycin Type of Intervention Type of Consult: New start Suspected Infection Suspected Infection: Skin/Soft tissue Prior Doses of Antibiotics Prior Doses of Antibiotics Received/Current Regimen: vanc 1250mg IV x1 in E.R. starting at 16:41 today Labs Labs: Sodium 133 mmol/L (136-145) L 09/18/24 15:20 Potassium 4.2 mmol/L (3.5-5.1) 09/18/24 15:20 Chloride 101 mmol/L (98-107) 09/18/24 15:20 Carbon Dioxide 29.0 mmol/L (21.0-32.0) 09/18/24 15:20 Anion Gap 4 (5-15) L 09/18/24 15:20 BUN 16 mg/dL (7-18) 09/18/24 15:20 Creatinine 0.89 mg/dL (0.55-1.02) 09/18/24 15:20 Est GFR (MDRD) Af Amer 78 mL/min (>60) 09/18/24 15:20 Est GFR (MDRD) Non-Af 64 mL/min (>60) 09/18/24 15:20 BUN/Creatinine Ratio 18.0 RATIO (10-20) 09/18/24 15:20 Glucose 90 mg/dL (74-106) 09/18/24 15:20 Dosing Weight Weight used for dosin kg Estimated Creatinine Clearance Estimated Creatinine Clearance: 52 ml/min Goal Trough Goal Trough: 15-20 mcg/mL Pharmacy Plan for Drug Dosing Pharmacy Plan for Drug Dosing: The load dose (2000mg) of vanc was ordered for the initial dose but the patient only received the standard dose (1250mg) in E.R. Therefore, instead of giving another dose now, will start the scheduled dose of 750mg q12h a few hours earlier than 12 hours after the 1250mg dose was given. Will check a trough before the 4th overall dose. Pharmacy Service will continue to monitor and adjust dosing as required. Follow-Up Labs Follow-Up Labs: Trough: Vancomycin Date/Time Labs Ordered Labs to be done on [date and time ordered]: 09/20/24 01:30
[2024-09-18 17:12] VITALS: BMI 30.7
[2024-09-18 17:25] VITALS: BP 139/52; PULSE 57; RESP 16; TEMP 36.4; O2SAT 97
[2024-09-18] MEDS: Acetaminophen 500 MG Tablet 1000 MG PO (17:41)
[2024-09-18] MEDS: Lisinopril 2.5 MG Tablet PO (17:41)
[2024-09-18 20:40] VITALS: BP 112/47; PULSE 58; RESP 16; TEMP 36.6; O2SAT 98
[2024-09-18] MEDS: Paroxetine 20 MG Tablet PO (21:03)
[2024-09-18] MEDS: Atorvastatin Calcium 20 MG Tablet PO (21:04)
[2024-09-18] MEDS: Nystatin Powder 15gm Bottle 1 APPLIC TOPICAL (21:06)
[2024-09-19 02:30] VITALS: BP 134/55; PULSE 58; RESP 16; TEMP 36.8; O2SAT 98
[2024-09-19] MEDS: Vancomycin HCl 750 MG in 0.9% Normal Saline (250mL Bag) 250 ML 250 MG IV ×2 (03:57→14:36)
[2024-09-19] MEDS: 0.9% Saline Lock 10 ML Syringe IV ×3 (03:58→21:20)
[2024-09-19 06:22] LABS: Absolute Neutrophil Count 3.4 X10^3/uL (2.0-7.7); Basophil# 0.03 X10^3/uL; Basophil% 0.5 % (0-1); Eosinophil# 0.23 X10^3/uL; Hematocrit 28.6 % (37-47); Hemoglobin 9.5 g/dL (12.0-15.0); Lymphocyte % 29.2 % (19-41); Mean Corp Hgb Conc 33.2 g/dL (32-36); Mean Corpuscular Hgb 29.7 pg (27.0-32.0); Mean Corpuscular Volume 89.4 fL (81-99); Mean Platelet Vol. 10.4 fl (6.2-12.0); Monocyte# 0.46 X10^3/uL; Monocyte% 7.9 % (0-10); NRBC Flagged by Analyzer 0 % (0-5); Neutrophil # 3.36 X10^3/uL (2.7-7.7); Neutrophil % 57.7 % (47-70); Platelet Count 212 K/mm3 (150-450); RBC Distribution Width CV 13.7 % (11.6-14.6); RBC Distribution Width SD 44.7 fl (35.1-43.9); White Blood Count 5.8 K/mm3 (4.4-11.0)
[2024-09-19 06:42] LABS: International Normalized Ratio 1.2; Prothrombin Time (Protime)PT. 14.7 SECONDS (11.7-14.9)
[2024-09-19 07:00] LABS: AST(SGOT) 14 U/L (15-37); Alanine Aminotransfer ALT/SGPT 13 U/L (13-56); Albumin, Serum 2.7 g/dL (3.2-5.0); Alkaline Phosphatase 46 U/L (45-117); Anion Gap 6 (5-15); BUN 12 mg/dL (7-18); BUN/Creat Ratio 14.6 RATIO (10-20); Bilirubin, Direct 0.16 mg/dL (0.00-0.30); Calcium,Total 8.6 mg/dL (8.5-10.1); Chloride 102 mmol/L (98-107); Creatinine, Serum 0.82 mg/dL (0.55-1.02); EST Glomerular Filtration Rate 70 mL/min (>60); Est Glom Filt Rate - Afr Amer 85 mL/min (>60); Estimated Creatinine Clearance 58.47 ml/min; Globulin 3.9 g/dL (2.2-4.2); Glucose 91 mg/dL (74-106); Magnesium 1.7 mg/dL (1.6-2.6); Potassium 4.2 mmol/L (3.5-5.1); Protein, Total 6.6 g/dL (6.4-8.2); Sodium Level 135 mmol/L (136-145)
[2024-09-19 07:59] VITALS: O2SAT 95
[2024-09-19 08:18] VITALS: BP 136/57; PULSE 58; RESP 18; TEMP 36.8; O2SAT 94
[2024-09-19] MEDS: Enoxaparin 40 MG/0.4 ML Syringe SC (08:26)
[2024-09-19] MEDS: Nystatin Powder 15gm Bottle 1 APPLIC TOPICAL ×2 (08:26→21:18)
[2024-09-19] MEDS: Aspirin E.C. 81 MG Tablet PO (08:26)
[2024-09-19] MEDS: amLODIPine 5 MG Tablet PO (08:26)
[2024-09-19] MEDS: Ensure Plus High Protein 120 ML LIQUID PO ×3 (08:28→17:02)
[2024-09-19] MEDS: Acetaminophen 500 MG Tablet 1000 MG PO ×2 (12:30→21:23)
--- NOTE | 2024-09-19 13:36 | PN_ITS ---
Subjective Subjective Patient seen and examined. She had no active complaints. She was admitted with complaint of right foot cellulitis and also. She denies any fever, chills, nausea or vomiting. Review of systems otherwise negative. Objective Data Objective Data Vital Signs: Vital Signs Temp Pulse Resp BP Pulse Ox O2 Del Method O2 Flow Rate 98.2 F 58 L 18 136/57 H 94 Room Air 2 09/19/24 08:18 09/19/24 08:18 09/19/24 08:18 09/19/24 08:18 09/19/24 08:18 09/19/24 08:18 09/19/24 02:30 Oxygen Flow Rate (L/min) 2 Oxygen Delivery Method Room Air Weight: 196 lb Body Mass Index (BMI) 30.7 Intake & Output: Intake and Output for Last 24 Hours 09/17/24 09/18/24 09/19/24 23:59 23:59 23:59 Intake Total 575 / 575 515 / 515 Output Total 800 / 800 Balance 575 / 275 -285 / -285 Lab / Micro Data 09/19/24 05:44 09/19/24 05:44 Labs: Laboratory Results - last 24 hr 09/18/24 15:20: WBC 7.9, RBC 3.79 L, Hgb 11.2 L, Hct 33.6 L, MCV 88.7, MCH 29.6, MCHC 33.3, RDW Std Deviation 44.7 H, RDW Coeff of Danny 13.7, Plt Count 229, MPV 10.9, Immature Gran % (Auto) 0.500, Neut % (Auto) 62.0, Lymph % (Auto) 25.6, Kane % (Auto) 8.8, Eos % (Auto) 2.7, Baso % (Auto) 0.4, Absolute Neuts (auto) 4.9, Absolute Lymphs (auto) 2.01, Nucleated RBC % 0, ESR 52 H, Sodium 133 L, Potassium 4.2, Chloride 101, Carbon Dioxide 29.0, Anion Gap 4 L, BUN 16, Creatinine 0.89, Estim Creat Clear Calc 52.41, Est GFR (MDRD) Af Amer 78, Est GFR (MDRD) Non-Af 64, BUN/Creatinine Ratio 18.0, Glucose 90, Calcium 9.3, C- React Prot Ext Range 38.90 H 09/19/24 05:44: WBC 5.8, RBC 3.20 L, Hgb 9.5 L, Hct 28.6 L, MCV 89.4, MCH 29.7, MCHC 33.2, RDW Std Deviation 44.7 H, RDW Coeff of Danny 13.7, Plt Count 212, MPV 10.4, Immature Gran % (Auto) 0.700, Neut % (Auto) 57.7, Lymph % (Auto) 29.2, Kane % (Auto) 7.9, Eos % (Auto) 4.0, Baso % (Auto) 0.5, Absolute Neuts (auto) 3.4, Absolute Lymphs (auto) 1.70, Nucleated RBC % 0, PT 14.7, INR 1.2, Sodium 135 L, Potassium 4.2, Chloride 102, Carbon Dioxide 27.0, Anion Gap 6, BUN 12, Creatinine 0.82, Estim Creat Clear Calc 58.47, Est GFR (MDRD) Af Amer 85, Est GFR (MDRD) Non-Af 70, BUN/Creatinine Ratio 14.6, Glucose 91, Calcium 8.6, Phosphorus 4.0, Magnesium 1.7, Total Bilirubin 0.50, Direct Bilirubin 0.16, AST 14 L, ALT 13, Alkaline Phosphatase 46, Total Protein 6.6, Albumin 2.7 L, Globulin 3.9, TSH 2.480 Radiography Diagnostic Testing: Radiology Impression Foot X-Ray 09/18/24 15:30 IMPRESSION: Diffusely demineralized bones. Degenerative changes. Diffuse soft tissue swelling. Round radiolucency projecting over the soft tissues lateral to the fifth MTP joint, likely reflects reported wound, cannot exclude subcutaneous air and a gas producing organism. Electronically Signed: Fabiola Escalera MD at 15:49 EST , Physical Exam Const alert, oriented x3, no apparent distress and well nourished General Appearance: cooperative and well developed HEENT normocephalic, head/scalp atraumatic and moist oral mucous membranes Neck supple and no JVD Lymph Lymphatic: no lymphadenopathy noted and no lymphedema noted Resp normal respiratory effort, normal air movement and clear to auscultation bilaterally Cardio regular rate, regular rhythm, S1 normal heart sound, S2 normal heart sound and no murmurs GI normal to inspection, nondistended, normoactive bowel sounds, soft to palpation, non-tender and non-distended Extremity Extremity Narrative: right foot wrapped in dressing. Has erythema of left lower extremity, from just above the ankle to mid roberts. Minimal differential warmth Skin Skin Narrative: as under extremities Neuro CN's II-XII intact bilaterally, no focal motor deficits and no sensory deficits noted Motor Exam: strength 5/5 throughout and general weakness Psych thought process normal and cooperative Appearance: appropriate Assessment & Plan Assessment/Plan (1) Cellulitis of right lower extremity: (2) Chronic wound: PLAN: Plan #Celulitis with ulceration of the RLE * Failed outpatient therapy. Was treated with p.o. doxycycline on outpatient basis but failed therapy. * On IV vancomycin. Podiatry consulted. * Defer to podiatry about doing MRI foot or otherwise. * PT OT on board. Fall precautions. * Right foot x-ray showed diffusely demineralized bones with degenerative changes and diffuse soft tissue swelling with round radiolucent projection over the soft tissues lateral to the fifth MTP joint likely reflecting reported wound but cannot exclude subcutaneous and a gas producing organism * Will therefore add on IV clindamycin due to possibility of gas producing organism. * Await podiatry evaluation #History of depression: On paroxetine #Hypertension: On amlodipine and lisinopril. IV hydralazine as needed #CHARLENE: On CPAP nightly # Hyperlipidemia: On statin DVT prophylaxis: Lovenox Charges/Coding Visit Charges Inpatient E&M: 42925 Subs Hosp L2
[2024-09-19 14:48] VITALS: BP 109/32; PULSE 68; RESP 18; TEMP 37.1; O2SAT 95
[2024-09-19] MEDS: Clindamycin 600 MG/50 ML BAG 100 MG IV ×2 (16:59→23:13)
[2024-09-19] MEDS: Lisinopril 2.5 MG Tablet PO (17:02)
[2024-09-19 21:01] VITALS: BP 126/51; PULSE 55; RESP 16; TEMP 36.6; O2SAT 97
[2024-09-19] MEDS: Paroxetine 20 MG Tablet PO (21:18)
[2024-09-19] MEDS: Atorvastatin Calcium 20 MG Tablet PO (21:18)
[2024-09-20 02:14] LABS: Vancomycin, Trough Level 15.7 ug/mL (5.0-15.0)
--- NOTE | 2024-09-20 02:43 | PCM.RX.CS ---
Consult Antibiotic Management Pharmacy has been consulted to manage selected antibiotic: Vancomycin Type of Intervention Type of Consult: Follow-up Labs Labs: Sodium 135 mmol/L (136-145) L 09/19/24 05:44 Potassium 4.2 mmol/L (3.5-5.1) 09/19/24 05:44 Chloride 102 mmol/L (98-107) 09/19/24 05:44 Carbon Dioxide 27.0 mmol/L (21.0-32.0) 09/19/24 05:44 Anion Gap 6 (5-15) 09/19/24 05:44 BUN 12 mg/dL (7-18) 09/19/24 05:44 Creatinine 0.82 mg/dL (0.55-1.02) 09/19/24 05:44 Est GFR (MDRD) Af Amer 85 mL/min (>60) 09/19/24 05:44 Est GFR (MDRD) Non-Af 70 mL/min (>60) 09/19/24 05:44 BUN/Creatinine Ratio 14.6 RATIO (10-20) 09/19/24 05:44 Glucose 91 mg/dL (74-106) 09/19/24 05:44 Vancomycin Trough 15.7 ug/mL (5.0-15.0) H 09/20/24 01:40 Goal Trough Goal Trough: 15-20 mcg/mL Pharmacy Plan for Drug Dosing Pharmacy Plan for Drug Dosing: Pharmacy Service will continue to monitor and adjust dosing as required. TROUGH 15.7 @ 11 HOURS. NO CHANGES, FOLLOW UP TROUGH IN 2 DAYS Follow-Up Labs Follow-Up Labs: Trough: Vancomycin Date/Time Labs Ordered Labs to be done on [date and time ordered]: 09/22 @ 0130
[2024-09-20 03:00] VITALS: BP 124/65; PULSE 58; RESP 16; TEMP 36.6; O2SAT 97
[2024-09-20] MEDS: Vancomycin HCl 750 MG in 0.9% Normal Saline (250mL Bag) 250 ML 250 MG IV ×2 (03:01→13:51)
[2024-09-20] MEDS: Clindamycin 600 MG/50 ML BAG 100 MG IV ×3 (05:25→18:04)
[2024-09-20 06:50] LABS: Absolute Lymphocyte Count 1.81 X10^3/uL (0.83-4.51); Absolute Neutrophil Count 2.6 X10^3/uL (2.0-7.7); Basophil# 0.04 X10^3/uL; Basophil% 0.7 % (0-1); Eosinophil# 0.29 X10^3/uL; Eosinophils% 5.4 % (0-5); Hematocrit 29.7 % (37-47); Hemoglobin 9.9 g/dL (12.0-15.0); Lymphocyte # 1.81 X10^3/ul (0.83-4.51); Lymphocyte % 33.8 % (19-41); Mean Corp Hgb Conc 33.3 g/dL (32-36); Mean Corpuscular Hgb 29.7 pg (27.0-32.0); Mean Corpuscular Volume 89.2 fL (81-99); Mean Platelet Vol. 10.3 fl (6.2-12.0); Monocyte# 0.54 X10^3/uL; Monocyte% 10.1 % (0-10); NRBC Flagged by Analyzer 0 % (0-5); Neutrophil # 2.64 X10^3/uL (2.7-7.7); Neutrophil % 49.3 % (47-70); Platelet Count 227 K/mm3 (150-450); RBC Distribution Width CV 13.5 % (11.6-14.6); RBC Distribution Width SD 44.3 fl (35.1-43.9); Red Blood Count 3.33 M/mm3 (4.2-5.4); White Blood Count 5.4 K/mm3 (4.4-11.0)
[2024-09-20 07:20] VITALS: O2SAT 94
[2024-09-20 07:20] LABS: Anion Gap 6 (5-15); BUN 12 mg/dL (7-18); BUN/Creat Ratio 14.3 RATIO (10-20); Calcium,Total 8.9 mg/dL (8.5-10.1); Chloride 103 mmol/L (98-107); Creatinine, Serum 0.84 mg/dL (0.55-1.02); EST Glomerular Filtration Rate 69 mL/min (>60); Est Glom Filt Rate - Afr Amer 83 mL/min (>60); Estimated Creatinine Clearance 57.08 ml/min; Glucose 96 mg/dL (74-106); Sodium Level 134 mmol/L (136-145)
[2024-09-20 07:32] VITALS: BP 133/55; PULSE 59; RESP 16; TEMP 36.6; O2SAT 97
[2024-09-20] MEDS: Aspirin E.C. 81 MG Tablet PO (07:44)
[2024-09-20] MEDS: Ensure Plus High Protein 120 ML LIQUID PO ×3 (07:47→18:01)
--- NOTE | 2024-09-20 08:05 | MRI_ITS ---
INDICATION: osteomeylitis right foot, CHRONIC ULCER HEAD OF 5TH MT, CELLULITIS EXAMINATION: MRI - RIGHT MR Forefoot WO/W Contrast TECHNIQUE: Multiplanar and multisequence MR images of the RIGHT foot. IV Contrast Dosage and Agent: None. COMPARISON: FINDINGS: No fracture. Marrow edema is noted of the fifth metatarsus and the proximal phalanx of the fifth toe suggesting osteomyelitis. No joint effusion. There is subcutaneous edema more significant laterally. MRI/Lower Ext No Joint W/WO Cont IMPRESSION: Marrow edema is noted of the fifth metatarsus and the proximal phalanx of the fifth toe suggesting osteomyelitis. Electronically Signed: Mich Gorman DO at 19:23 EST Reading Location ID and State: [facility] / [place] Tel [phone], Service support ,
--- NOTE | 2024-09-20 10:23 | PCM.PROGNOTE ---
Subjective Subjective Patient seen and examined. She complains of a few episodes of diarrhea overnight. Review of systems otherwise negative. She has been hemodynamically stable. Objective Data Objective Data Vital Signs: Vital Signs Temp Pulse Resp BP Pulse Ox O2 Del Method O2 Flow Rate 97.8 F 59 L 16 133/55 H 97 Room Air 2 09/20/24 07:32 09/20/24 07:32 09/20/24 07:32 09/20/24 07:32 09/20/24 07:32 09/20/24 07:32 09/19/24 02:30 Oxygen Flow Rate (L/min) 2 Oxygen Delivery Method Room Air Weight: 196 lb Body Mass Index (BMI) 30.7 Intake & Output: Intake and Output for Last 24 Hours 09/18/24 09/19/24 09/20/24 23:59 23:59 23:59 Intake Total 575 / 575 1130 / 1130 315 / 315 Output Total 1450 / 1450 500 / 500 Balance 575 / 275 -320 / -320 -185 / -185 Lab / Micro Data 09/20/24 06:17 09/20/24 06:17 Labs: Laboratory Results - last 24 hr 09/20/24 01:40: Vancomycin Trough 15.7 H 09/20/24 06:17: WBC 5.4, RBC 3.33 L, Hgb 9.9 L, Hct 29.7 L, MCV 89.2, MCH 29.7, MCHC 33.3, RDW Std Deviation 44.3 H, RDW Coeff of Danny 13.5, Plt Count 227, MPV 10.3, Immature Gran % (Auto) 0.700, Neut % (Auto) 49.3, Lymph % (Auto) 33.8, Gooding % (Auto) 10.1 H, Eos % (Auto) 5.4 H, Baso % (Auto) 0.7, Absolute Neuts (auto) 2.6, Absolute Lymphs (auto) 1.81, Nucleated RBC % 0, Sodium 134 L, Potassium 4.0, Chloride 103, Carbon Dioxide 26.0, Anion Gap 6, BUN 12, Creatinine 0.84, Estim Creat Clear Calc 57.08, Est GFR (MDRD) Af Amer 83, Est GFR (MDRD) Non-Af 69, BUN/Creatinine Ratio 14.3, Glucose 96, Calcium 8.9 Physical Exam Const alert, oriented x3, no apparent distress and well nourished General Appearance: cooperative and well developed HEENT normocephalic, head/scalp atraumatic and moist oral mucous membranes Eyes PERRL and EOMs intact bilaterally Neck no lymphadenopathy, supple and no JVD Lymph Lymphatic: no lymphadenopathy noted and no lymphedema noted Resp normal respiratory effort, normal air movement, no retractions and clear to auscultation bilaterally Cardio regular rate, regular rhythm, S1 normal heart sound, S2 normal heart sound and no murmurs GI normal to inspection, nondistended, normoactive bowel sounds, soft to palpation, non-tender and non-distended Extremity Extremity Narrative: right foot wrapped in dressing. erythema of left lower extremity has improved markedly. Minimal differential warmth Skin Skin Narrative: as under extremities Neuro oriented x3, CN's II-XII intact bilaterally, no focal motor deficits and no sensory deficits noted Motor Exam: strength 5/5 throughout and general weakness Psych thought process normal, cooperative and affect normal Appearance: appropriate Assessment & Plan Assessment/Plan (1) Cellulitis of right lower extremity: (2) Chronic wound: PLAN: Plan #Celulitis with ulceration of the RLE Failed outpatient therapy. Was treated with p.o. doxycycline on outpatient basis but failed therapy. On IV vancomycin. Podiatry consulted. MRI of the foot ordered per podiatry for I&D today. PT OT on board. Fall precautions. Right foot x-ray showed diffusely demineralized bones with degenerative changes and diffuse soft tissue swelling with round radiolucent projection over the soft tissues lateral to the fifth MTP joint likely reflecting reported wound but cannot exclude subcutaneous and a gas producing organism IV clindamycin added on due to xray findings about possible gas producing organism #Diarrhea patient says she had several episodes of diarrhea overnight. since patient was started on clindamycin, will check for C diff. hydrate gently with iVF. If C diff is negative, will give loperamide. #History of depression: On paroxetine #Hypertension: On amlodipine and lisinopril. IV hydralazine as needed #CHARLENE: On CPAP nightly # Hyperlipidemia: On statin DVT prophylaxis: Lovenox Charges/Coding Visit Charges Inpatient E&M: 40013 Subs Hosp L2
[2024-09-20] MEDS: Enoxaparin 40 MG/0.4 ML Syringe SC (10:29)
[2024-09-20] MEDS: amLODIPine 5 MG Tablet PO (10:30)
--- NOTE | 2024-09-20 10:30 | CASEMGMT ---
Discharge Planning A list of HH providers including quality and resource use data and consistent with the patient's preferred geographic region, medical needs, and insurance network was created in [employer] Guide.? This list was provided to the RN CLIFF. Cheyenne Denson, Discharge Planning Asst.
[2024-09-20] MEDS: Nystatin Powder 15gm Bottle 1 APPLIC TOPICAL ×2 (10:31→21:42)
--- NOTE | 2024-09-20 11:17 | CASEMGMT ---
SHANTEL CORONADO Assessment: Face to Face with pt for initial transition planning/care coordination assessment. SHANTEL CORONADO introduced self and role at [facility], pt voices understanding and consents to assessment. Pt is A&O x4 and answers all questions appropriately at this time. Pt sitting up in chair in no distress. Care providers, pharmacy, and demographics verified/updated. Admitting Dx: cellulitis Strata Score: 2 PCP:Yodit Specialists:Robina, neuro surgeon in [place]; Chelo, pain mgmt; Ronnyttbryan, ortho; Horn, pod Preferred Pharmacy: [facility] Retail Insurance: [employer] Prescription Benefit: yes LNOK: Maximilian Colvin, ; Allison Osman, sister Living Arrangements: Pt lives with in a single story home with a ramp to enter. pt reports she is I in ADLs and is able to do meals partially, can do laundry but it is a chore and orders groceries online. Pt denies concerns at home. Transportation: Pt has not been driving most recently. Pt sister has been transporting her to medical appts. DME:CPAP, FWW HHC/SNF: [facility] HHC in the past, denies SNF stays. Pt states no concerns with going home at time of dc. Pt states that she has been doing outpt therapy at [facility]. Pt states she has had [facility] HHC in the past but does not feel it was beneficial to her so she would like to resume outpt therapy. Pt states she or her sister can perform wound care if needed. Pt is aware that should she change her mind and want HHC, she could also have a nurse. Pt states no further concerns/needs. CM to follow. Advised pt to ask CM if any further question/concerns/needs arise, voices understanding. Pt Goal: Home with resuming outpt therapy Plan: Home with resuming outpt therapy pending course of hospitalization. Alan FUNES CM
--- NOTE | 2024-09-20 12:51 | CON.PCM_ITS ---
Assessment & Plan Assessment/Plan (1) Cellulitis of right lower extremity: (2) Neuropathy: PLAN: I discussed with the patient she will do speak to her I gave her the information noted in order to plan for this procedure possibly Friday will order MRI at this point. She should get wound care orders as well as try to stay off the foot is much as possible. Will need physical therapy to evaluate her as well. Consider SNF placement (3) Cavovarus deformity of foot, acquired: PLAN: Will wait for MRI and probably be back tomorrow evening to discuss surgery with her and her would plan for the operating room possibly Friday. PLAN: Plan Again plan would be possibly OR procedure with debridement, incision and drainage of bone cortex, tendon transfer with posterior tibial and anterior tibial tendon transfer. HPI Consult Data Date of Consult: 09/20/24 HPI Narrative Reason for Consultation: Nonhealing ulceration right foot HPI Narrative: LANE CHERRY, is a 84 F who presents she presented to the ER on Friday she has been here for the last couple days in which I was able to obtain the consult today. The patient states that she had a fall in December since the fall her foot is completely turned inward and that she has been through a brace, orthotics to offload this area of the subfifth metatarsal. She continues to have recurrent infections that never is healed has been open since April. At this point there is been no attempt to correct her deformity at this point since she is more of a supinated foot type secondary to over pulling of the posterior tibial tendon anterior tibial tendon and weakness of the peroneal tendons. I am uncertain if she has had a stroke her foot looks just like she has had some sort of stroke. Currently she has no pain at all just more concerned that the wound has not healed. [facility] Medical History (Updated 09/20/24 @ 12:[address] Ambrose Campos MD) Osteoporosis Irregular heart beat Hypertension Contusion of spinal cord Fall Wears glasses Wears dentures Arthritis Low iron High cholesterol History of hiatal hernia GERD (gastroesophageal reflux disease) CPAP (continuous positive airway pressure) dependence Sleep apnea Former smoker Cardiology follow-up encounter History of stress test CHARLENE (obstructive sleep apnea) Rheumatoid arthritis Hiatal hernia Abnormal EKG Essential hypertension Vitamin D deficiency Diverticulosis Anxiety and depression Rash HLD (hyperlipidemia) Other hereditary and idiopathic neuropathies Chronic ulcer of left foot with fat layer exposed Localized edema Venous insufficiency (chronic) (peripheral) Other specified peripheral vascular diseases 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 exposed CHARLENE (obstructive sleep apnea) Abnormal chest CT Lipodermatosclerosis Cellulitis of right leg Home Medications ?Medication ?Instructions ?Recorded ?Last Taken ?Type atorvastatin 20 mg tablet 20 mg PO QHS Cholesterol 12/15/15 09/17/24 History paroxetine HCl 20 mg tablet 20 mg PO DAILY Depression 12/15/15 09/17/24 History aspirin 81 mg tablet,delayed 81 mg PO DAILY Heart 07/19/22 09/18/24 History release (Adult Low Dose Aspirin) cholecalciferol (vitamin D3) 25 50 mcg PO DAILY Supplement 07/19/22 09/17/24 History mcg (1,000 unit) tablet acetaminophen 325 mg tablet 1,000 mg PO TID PRN PRN Pain Score 01/11/24 09/18/24 History (Tylenol) 1-10/Temp > 100.7 F lisinopril 2.5 mg tablet 2.5 mg PO 1700 #30 tabs 02/26/24 09/17/24 Rx omeprazole 20 mg capsule,delayed 20 mg PO DAILY Stomach acid #30 02/26/24 09/18/24 Rx release caps alendronate 70 mg tablet 70 mg PO QWEEK 09/18/24 09/15/24 History amlodipine 5 mg tablet 5 mg PO DAILY 09/18/24 09/18/24 History doxycycline hyclate 100 mg capsule 100 mg PO Q12H 09/18/24 09/18/24 History flaxseed oil 1,000 mg capsule 1,000 mg PO DAILY 09/18/24 09/18/24 History vitamin B complex (Vitamins B 1 cap PO DAILY 09/18/24 09/18/24 History Complex capsule) Allergy/AdvReac Type Severity Reaction Status Date / Time cephalexin (From Keflex) Allergy Unknown rash, Verified 09/18/24 15:01 headaches bee venom protein (honey bee) Allergy Anaphylaxis Verified 09/18/24 15:01 Penicillins Allergy Hives Verified 09/18/24 15:52 pantoprazole (From Protonix) AdvReac Intermediate Thrombocyto Verified 09/18/24 15:01 penia Family History Father Heart disease Mother Colon cancer Sister Colon cancer Brother CVA (cerebral vascular accident) COPD (chronic obstructive pulmonary disease) Surgical History History of esophagogastroduodenoscopy (EGD) History of colonoscopy History of cholecystectomy Hx of appendectomy History of hysterectomy History of bilateral knee replacement Social History household members: spouse housing: house number of children: 1 pets and animals: Yes (1 small dog and 2 outdoor cats) pets and animals: cat(s) and dog(s) leisure activities: other history of recent travel: No Smoking Status: Former smoker Tobacco: How many years used: 20 how long ago did patient quit smokin, 1ppd second hand exposure: Yes alcohol intake: never substance use type: does not use ROS ROS Narrative She is alert active oriented no acute distress understands her full history she understands that the wound is not healed and would like to pursue further treatment to correct this. Physical Exam Const alert General Appearance: cooperative HEENT normocephalic, head/scalp atraumatic, hearing grossly normal bilaterally, external ears normal, EAC's normal, TM's normal bilaterally, external nose normal, nasal mucous membranes and turbinates normal, moist oral mucous membranes, oropharynx normal, dentition normal and gingiva normal Eyes PERRL, EOMs intact bilaterally, conjunctivae normal, no scleral icterus, no papilledema, normal visual barnes by confrontation and fundi normal bilaterally Chest inspection of chest normal, palpation of chest normal, inspection of breasts normal and palpation of breasts normal Resp normal respiratory effort, normal air movement, no retractions, no use of accessory muscles, clear to auscultation bilaterally and percussion normal Cardio regular rate, regular rhythm, S1 normal heart sound, S2 normal heart sound, no murmurs, no rub, no gallops, no clicks, no JVD, peripheral pulses 2+ throughout and diaphoretic GI normal to inspection, nondistended, normoactive bowel sounds, soft to palpation, non-tender, non-distended, hepatosplenomegaly, no masses and no bruits GI Narrative: Patient has had few bouts of diarrhea and they are going to check for C. difficile at this point. She has been on antibiotics for the last 3 days. Possibly outpatient antibiotics as well. Extremity Extremity Narrative: Patient on exam does have palpable pedal pulses DP and PT bilateral. Neuro sensation is completely absent on the right lower extremity she does not have any feeling she is able to move her ankle slightly in anterior and dorsiflex position only to about 10 degrees. Left foot has full strength full range of motion right foot has a noted dropfoot and over emphasis of the posterior tibial tendon anterior tibial tendon. With weakness with eversion. Patient has had bilateral knee replacements performed. Left foot has no open ulcerations or calluses. She does hammertoe contracture bilateral. Right lower extremity has an ulceration subfifth metatarsal that appears to be 1 and half centimeters by 1 cm x 0.2 cm it does not probe to bone I does have white fibrotic tissue uncertain if its into the bone. Her x-rays look pretty benign even though they classified it is possibly having a gas infection though they were done few days ago at this point I believe most that infection is resolved. There is epidermal lysis and flaking of the skin dorsal laterally as well. Patient has severe inversion of the right foot. A lot of this is due to weakness as well as peroneal neuropathy. I discussed with the patient in great detail the patient should undergo a bridle procedure with the posterior tibial tendon transfer, peroneus longus tendon transfer along with the tightening of all of the areas along the anterior tibialis tendon in order to allow the patient to get full range of motion and strength anteriorly as well as feel to walk with a foot in a more rectus fashion versus inversion. I know this would probably stop her ulceration. Discussed surgical option at this point the patient would be a good candidate for this. Consider getting PVR prior to the procedure. Skin Skin Narrative: Ulceration right plantar foot General Skin Exam: atrophy Lab / Micro Data 09/20/24 06:17 09/20/24 06:17 Labs: Laboratory Results - last 24 hr 09/20/24 01:40: Vancomycin Trough 15.7 H 09/20/24 06:17: WBC 5.4, RBC 3.33 L, Hgb 9.9 L, Hct 29.7 L, MCV 89.2, MCH 29.7, MCHC 33.3, RDW Std Deviation 44.3 H, RDW Coeff of Danny 13.5, Plt Count 227, MPV 10.3, Immature Gran % (Auto) 0.700, Neut % (Auto) 49.3, Lymph % (Auto) 33.8, M kyler % (Auto) 10.1 H, Eos % (Auto) 5.4 H, Baso % (Auto) 0.7, Absolute Neuts (auto) 2.6, Absolute Lymphs (auto) 1.81, Nucleated RBC % 0, Sodium 134 L, Potassium 4.0, Chloride 103, Carbon Dioxide 26.0, Anion Gap 6, BUN 12, Creatinine 0.84, Estim Creat Clear Calc 57.08, Est GFR (MDRD) Af Amer 83, Est GFR (MDRD) Non-Af 69, BUN/Creatinine Ratio 14.3, Glucose 96, Calcium 8.9 Imaging I am ordering an MRI just to rule out osteomyelitis at this point I actually do not think there is anything wrong with the deformity unless the bones infected would recommend fifth metatarsal resection but would still undergo full tendon transfer and correction with gastroc, and bridle procedure
--- NOTE | 2024-09-20 13:06 | ART_ITS ---
Reason For Study: Ulcer Procedure A bilateral lower extremity continuous wave Doppler with analog waveform analysis,segmental pressures,and ankle brachial indexes without exercise. Left Segmental Pressures Left brachial= 129mmHg. Left posterior tibial artery = 154mmHg. Left dorsalis pedis artery = 133mmHg. Left digit = 109 mmHg. The left dorsalis pedis waveforms are triphasic. The left posterior tibial artery waveforms are triphasic. Right Segmental Pressures Right brachial= 130mmHg. Right posterior tibial artery = 153mmHg. Right dorsalis pedis artery = 140mmHg. Right digit = 95 mmHg. The right dorsalis pedis waveforms are triphasic. The right posterior tibial artery waveforms are triphasic. Indices The right ankle brachial index by the dorsalis pedis is 1.08. The right ankle brachial index by the posterior tibial artery is 1.18. The right digital-brachial index is 0.73. The left ankle brachial index by the dorsalis pedis is 1.02. The left ankle brachial index by the posterior tibial artery is 1.18. The left digital-brachial index is 0.84. VL/Lower Ext Art Exam w/o Exercis Interpretation Summary Right KATHLEEN 1.18, normal. Doppler/PVR waveforms of the right leg normal at rest. TBI diminished, pedal/digit disease vs spasm. Left KATHLEEN 1.18, normal. TBI and Doppler/PVR waveforms of the left leg normal at rest. Ordering Physician: Ambrose Campos Referring Physician: Angelika Monsivais M.D. Performed By: Brigette Cavazos RVT and Student
[2024-09-20 13:57] VITALS: BP 119/45; PULSE 56; RESP 16; TEMP 36.9; O2SAT 97
[2024-09-20] MEDS: Lisinopril 2.5 MG Tablet PO (18:02)
[2024-09-20] MEDS: Acetaminophen 500 MG Tablet 1000 MG PO (19:49)
[2024-09-20 21:36] VITALS: BP 122/48; PULSE 60; RESP 15; TEMP 37.1; O2SAT 95
[2024-09-20] MEDS: Paroxetine 20 MG Tablet PO (21:42)
[2024-09-20] MEDS: Atorvastatin Calcium 20 MG Tablet PO (21:42)
[2024-09-21] MEDS: Clindamycin 600 MG/50 ML BAG 100 MG IV ×3 (00:09→11:56)
[2024-09-21] MEDS: Vancomycin HCl 750 MG in 0.9% Normal Saline (250mL Bag) 250 ML 250 MG IV ×2 (02:17→13:38)
[2024-09-21 03:42] VITALS: BP 128/55; PULSE 57; RESP 15; TEMP 37.1; O2SAT 100
[2024-09-21 07:00] LABS: Absolute Lymphocyte Count 1.81 X10^3/uL (0.83-4.51); Absolute Neutrophil Count 3.3 X10^3/uL (2.0-7.7); Basophil# 0.05 X10^3/uL; Basophil% 0.8 % (0-1); Eosinophil# 0.35 X10^3/uL; Eosinophils% 5.7 % (0-5); Hematocrit 33.4 % (37-47); Hemoglobin 10.8 g/dL (12.0-15.0); Lymphocyte # 1.81 X10^3/ul (0.83-4.51); Lymphocyte % 29.3 % (19-41); Mean Corp Hgb Conc 32.3 g/dL (32-36); Mean Corpuscular Volume 89.8 fL (81-99); Mean Platelet Vol. 10.7 fl (6.2-12.0); Monocyte# 0.56 X10^3/uL; Monocyte% 9.1 % (0-10); NRBC Flagged by Analyzer 0 % (0-5); Neutrophil # 3.34 X10^3/uL (2.7-7.7); Platelet Count 233 K/mm3 (150-450); RBC Distribution Width CV 13.4 % (11.6-14.6); RBC Distribution Width SD 44.3 fl (35.1-43.9); Red Blood Count 3.72 M/mm3 (4.2-5.4); White Blood Count 6.2 K/mm3 (4.4-11.0)
[2024-09-21 08:00] LABS: Anion Gap 7 (5-15); BUN 22 mg/dL (7-18); BUN/Creat Ratio 25.6 RATIO (10-20); Calcium,Total 9.2 mg/dL (8.5-10.1); Chloride 103 mmol/L (98-107); Creatinine, Serum 0.86 mg/dL (0.55-1.02); EST Glomerular Filtration Rate 67 mL/min (>60); Est Glom Filt Rate - Afr Amer 81 mL/min (>60); Estimated Creatinine Clearance 55.75 ml/min; Glucose 99 mg/dL (74-106); Sodium Level 134 mmol/L (136-145)
[2024-09-21 10:27] VITALS: BP 114/47; PULSE 56; RESP 16; TEMP 36.6; O2SAT 95
[2024-09-21] MEDS: Nystatin Powder 15gm Bottle 1 APPLIC TOPICAL ×2 (10:44→22:29)
[2024-09-21] MEDS: Aspirin E.C. 81 MG Tablet PO (10:44)
[2024-09-21] MEDS: Enoxaparin 40 MG/0.4 ML Syringe SC (10:44)
[2024-09-21] MEDS: amLODIPine 5 MG Tablet PO (10:44)
[2024-09-21] MEDS: Loperamide 2 MG Capsule PO (10:50)
--- NOTE | 2024-09-21 11:54 | PN_ITS ---
Subjective Subjective Patient seen and examined. She complained of diarrhea still. C Diff was negative. Review of systems is otherwise negative. MRI showed evidence of osteomyelitis of the right foot. Podiatry is on board. Objective Data Objective Data Vital Signs: Vital Signs Temp Pulse Resp BP Pulse Ox O2 Del Method O2 Flow Rate 97.8 F 56 L 16 114/47 L 95 Room Air 2 09/21/24 10:27 09/21/24 10:27 09/21/24 10:27 09/21/24 10:27 09/21/24 10:27 09/21/24 10:27 09/21/24 03:42 Oxygen Flow Rate (L/min) 2 Oxygen Delivery Method Room Air Weight: 196 lb Body Mass Index (BMI) 30.7 Intake & Output: Intake and Output for Last 24 Hours 09/19/24 09/20/24 09/21/24 23:59 23:59 23:59 Intake Total 1130 / 1130 680 / 680 365 / 365 Output Total 1450 / 1450 2100 / 2500 600 / 600 Balance -320 / -320 -1420 / -1820 -235 / -235 Lab / Micro Data 09/21/24 06:17 09/21/24 06:17 Labs: Laboratory Results - last 24 hr 09/21/24 06:17: WBC 6.2, RBC 3.72 L, Hgb 10.8 L, Hct 33.4 L, MCV 89.8, MCH 29.0, MCHC 32.3, RDW Std Deviation 44.3 H, RDW Coeff of Danny 13.4, Plt Count 233, MPV 10.7, Immature Gran % (Auto) 1.100 H, Neut % (Auto) 54.0, Lymph % (Auto) 29.3, Mayes % (Auto) 9.1, Eos % (Auto) 5.7 H, Baso % (Auto) 0.8, Absolute Neuts (auto) 3.3, Absolute Lymphs (auto) 1.81, Nucleated RBC % 0, Sodium 134 L, Potassium 4.0, Chloride 103, Carbon Dioxide 24.0, Anion Gap 7, BUN 22 H, Creatinine 0.86, Estim Creat Clear Calc 55.75, Est GFR (MDRD) Af Amer 81, Est GFR (MDRD) Non-Af 67, BUN/Creatinine Ratio 25.6 H, Glucose 99, Calcium 9.2 Micro: Microbiology 09/18/24 15:57 Blood Culture (Wb) - Right Hand Blood Culture - Preliminary No growth in 48 hours. 09/18/24 15:57 Blood Culture (Wb) - Anticubital Left Blood Culture - Preliminary No growth in 48 hours. 09/20/24 17:57 Stool Clostridioides difficile (PCR) - Final Radiography Diagnostic Testing: Radiology Impression Lower Extremity MRI 09/20/24 08:05 IMPRESSION: Marrow edema is noted of the fifth metatarsus and the proximal phalanx of the fifth toe suggesting osteomyelitis. Electronically Signed: Mich Gorman DO at 19:23 EST Reading Location ID and State: [facility] / [place] Tel [phone], Service support , Physical Exam Const alert and oriented x3 General Appearance: cooperative and well developed HEENT normocephalic, head/scalp atraumatic and moist oral mucous membranes Eyes PERRL and EOMs intact bilaterally Neck no lymphadenopathy, supple and no JVD Lymph Lymphatic: no lymphadenopathy noted and no lymphedema noted Resp normal respiratory effort, normal air movement, no retractions and clear to auscultation bilaterally Cardio regular rate, regular rhythm, S1 normal heart sound, S2 normal heart sound and no murmurs GI normal to inspection, nondistended, normoactive bowel sounds, soft to palpation, non-tender and non-distended Extremity Extremity Narrative: right foot wrapped in dressing. erythema of left lower extremity has improved markedly. Minimal differential warmth Skin Skin Narrative: as under extremities Neuro oriented x3, CN's II-XII intact bilaterally, no focal motor deficits and no sensory deficits noted Motor Exam: strength 5/5 throughout and general weakness Psych thought process normal, cooperative and affect normal Appearance: appropriate Assessment & Plan Assessment/Plan (1) Cellulitis of right lower extremity: (2) Chronic wound: PLAN: Plan #Celulitis with ulceration of the RLE * Failed outpatient therapy. Was treated with p.o. doxycycline on outpatient basis but failed therapy. * On IV vancomycin and clindamycin. Podiatry on board. * MRI of the foot ordered per podiatry showed marrow edema of the fifth metatarsus and the proximal phalanx of the fifth toe suggesting osteomyelitis and subcutaneous edema more significant laterally. * had bedside I&D done yesterday. Per podiatry, for surgery tomorrow. * PT OT on board. Fall precautions. * Right foot x-ray showed diffusely demineralized bones with degenerative changes and diffuse soft tissue swelling with round radiolucent projection over the soft tissues lateral to the fifth MTP joint likely reflecting reported wound but cannot exclude subcutaneous and a gas producing organism * will dc IV vancomycin as MRI does not show any gas forming organism or evidence of necrotising fasciitis * #Diarrhea * patient says she had several episodes of diarrhea overnight. * C Diff negative. will give loperamide. * #History of depression: On paroxetine #Hypertension: On amlodipine and lisinopril. IV hydralazine as needed #CHARLENE: On CPAP nightly # Hyperlipidemia: On statin DVT prophylaxis: Lovenox Charges/Coding Visit Charges Inpatient E&M: 60688 Subs Hosp L2
[2024-09-21] MEDS: Ensure Plus High Protein 120 ML LIQUID PO (11:56)
[2024-09-21 13:42] VITALS: BP 106/44; PULSE 61; RESP 16; TEMP 36.6; O2SAT 95
[2024-09-21] MEDS: Acetaminophen 500 MG Tablet 1000 MG PO ×2 (14:49→22:27)
[2024-09-21] MEDS: Lisinopril 2.5 MG Tablet PO (17:37)
--- NOTE | 2024-09-21 21:03 | PN.SURG_ITS ---
Subjective Subjective Patient seen today status post MRI follow-up discussion regarding surgical correction. Patient does understand at this point that she does have infection of the bone patient otherwise stable she seems to be in no complaints she was sleeping I did wake her up she denies nausea vomiting chills or fever no pain to the right lower extremity. Discussed surgical treatment for the right foot. Objective Data Objective Data Wound right foot stay Vital Signs: Vital Signs Temp Pulse Resp BP Pulse Ox O2 Del Method O2 Flow Rate 97.9 F 61 16 106/44 L 95 Room Air 2 09/21/24 13:42 09/21/24 13:42 09/21/24 13:42 09/21/24 13:42 09/21/24 13:42 09/21/24 13:42 09/21/24 03:42 Oxygen Flow Rate (L/min) 2 Oxygen Delivery Method Room Air Weight: 88.904 kg Body Mass Index (BMI) 30.7 Intake & Output: Intake and Output for Last 24 Hours 09/19/24 09/20/24 09/21/24 23:59 23:59 23:59 Intake Total 1130 / 1130 680 / 680 680 / 680 Output Total 1450 / 1450 2100 / 2500 600 / 600 Balance -320 / -320 -1420 / -1820 80 / 80 Lab / Micro Data Attestation: I reviewed the patient's lab results. 09/21/24 06:17 09/21/24 06:17 Labs: Laboratory Results - last 24 hr 09/21/24 06:17: WBC 6.2, RBC 3.72 L, Hgb 10.8 L, Hct 33.4 L, MCV 89.8, MCH 29.0, MCHC 32.3, RDW Std Deviation 44.3 H, RDW Coeff of Danny 13.4, Plt Count 233, MPV 10.7, Immature Gran % (Auto) 1.100 H, Neut % (Auto) 54.0, Lymph % (Auto) 29.3, Marquette % (Auto) 9.1, Eos % (Auto) 5.7 H, Baso % (Auto) 0.8, Absolute Neuts (auto) 3.3, Absolute Lymphs (auto) 1.81, Nucleated RBC % 0, Sodium 134 L, Potassium 4.0, Chloride 103, Carbon Dioxide 24.0, Anion Gap 7, BUN 22 H, Creatinine 0.86, Estim Creat Clear Calc 55.75, Est GFR (MDRD) Af Amer 81, Est GFR (MDRD) Non-Af 67, BUN/Creatinine Ratio 25.6 H, Glucose 99, Calcium 9.2 Micro: Microbiology 09/18/24 15:57 Blood Culture (Wb) - Right Hand Blood Culture - Preliminary No growth in 48 hours. 09/18/24 15:57 Blood Culture (Wb) - Anticubital Left Blood Culture - Preliminary No growth in 48 hours. 09/20/24 17:57 Stool Clostridioides difficile (PCR) - Final Radiography Diagnostic Testing: Radiology Impression Extremity Arterial Study 09/20/24 13:06 Interpretation Summary Right KATHLEEN 1.18, normal. Doppler/PVR waveforms of the right leg normal at rest. TBI diminished, pedal/digit disease vs spasm. Left KATHLEEN 1.18, normal. TBI and Doppler/PVR waveforms of the left leg normal at rest. Ordering Physician: Ambrose Campos Referring Physician: Angelika Monsivais M.D. Performed By: Brigette Cavazos RVT and Student Physical Exam Const alert, oriented x3, no apparent distress, average body habitus, no limitations, healthy appearing and well nourished HEENT normocephalic, head/scalp atraumatic, hearing grossly normal bilaterally, external ears normal, EAC's normal, TM's normal bilaterally, external nose normal, nasal mucous membranes and turbinates normal, moist oral mucous membranes, oropharynx normal, dentition normal and gingiva normal Eyes PERRL, EOMs intact bilaterally, conjunctivae normal, no scleral icterus, no papilledema, normal visual barnes by confrontation and fundi normal bilaterally Chest inspection of chest normal, palpation of chest normal, inspection of breasts normal and palpation of breasts normal Resp normal respiratory effort, normal air movement, no retractions, no use of accessory muscles, clear to auscultation bilaterally and percussion normal Cardio regular rate, regular rhythm, S1 normal heart sound, S2 normal heart sound, no murmurs, no rub, no gallops, no clicks, no JVD, peripheral pulses 2+ throughout and diaphoretic Back/Spine Cervical Spine: cervical spine tenderness Extremity Extremity Narrative: Patient on exam and does have palpable pedal pulses noted she has a vascular exam that shows she has normal KATHLEEN right is 1.08 left is slightly decreased at 0.85 but otherwise within normal limits. Right plantar fifth metatarsal still with ulceration I did recommend the patient to be more nonweightbearing versus weightbearing though she is using a walker she will need to remain nonweightbearing after the surgery Today we discussed full conservative and surgical correction as well as her MRI confirmed possible osteomyelitis versus septic joint with OM of the fifth digit and the fifth metatarsal I did discuss amputation versus salvage, the same time I recommended then a tendon transfer bone biopsy incision and drainage bone cortex and then will recommend for bridle procedure in order to correct the deformity. She does understand she would like to proceed planning for surgery tomorrow 4:30 PM. Will let her have breakfast if her able to get a tray Assessment & Plan Assessment/Plan (1) Cavovarus deformity of foot, acquired: PLAN: Plan for surgery tomorrow 430 for bridle procedure if she understands that this will be tendon transfers will need nonweightbearing for 6 weeks. (2) Chronic wound: (3) Cellulitis of right lower extremity: (4) Osteomyelitis: PLAN: MRI confirms osteomyelitis of the patient does not want amputation may need to perform bone biopsy versus I&D bone cortex and then IV antibiotics for 6 weeks PLAN: Plan Today discussed surgical risks complications benefits of the surgical procedure she does understand this nonweightbearing for 6 weeks to help heal the wound correct her deformity will then need physical therapy it is at least a 3-month recovery she would like to pursue this as she is just has had a problem for this ever since December 2023 and has had a wound for 5 months.
[2024-09-21 22:00] VITALS: BP 135/62; PULSE 58; RESP 15; TEMP 36.6; O2SAT 98
[2024-09-21] MEDS: Paroxetine 20 MG Tablet PO (22:26)
[2024-09-21] MEDS: Atorvastatin Calcium 20 MG Tablet PO (22:26)
--- NOTE | 2024-09-21 23:14 | EKG12_ITS ---
Test Reason : PRE-OP Blood Pressure : */* mmHG Vent. Rate : 57 BPM Atrial Rate : 57 BPM P-R Int : 184 ms QRS Dur : 92 ms QT Int : 426 ms P-R-T Axes : 5 -5 81 degrees QTcB Int : 414 ms Sinus bradycardia with sinus arrhythmia Septal infarct (cited on or before 01-Jun-2022) Abnormal ECG When compared with ECG of 01-Jun-2022 10:51, QRS duration has increased Questionable change in initial forces of Septal leads Confirmed by JOHANA BOURGEOIS, MESSI ([id number]), editorial cartoonist ROSIE FINNEGAN ([id number]) on 09/23/2024 5:58:10 AM Referred By: BOUBACAR Confirmed By: MESSI VAUGHN MD
[2024-09-22] VITALS (11 sets, daily range): BP systolic 96–140; BP diastolic 31–66; PULSE 50–57; RESP 14–16; TEMP 36.6–36.9; O2SAT 87–99; BMI 30.7
[2024-09-22 02:27] LABS: Vancomycin, Trough Level 16.6 ug/mL (5.0-15.0)
[2024-09-22] MEDS: Vancomycin HCl 750 MG in 0.9% Normal Saline (250mL Bag) 250 ML 250 MG IV ×2 (02:45→13:38)
--- NOTE | 2024-09-22 02:54 | PCM.RX.CS ---
Consult Antibiotic Management Pharmacy has been consulted to manage selected antibiotic: Vancomycin Type of Intervention Type of Consult: Follow-up Labs Labs: Sodium 134 mmol/L (136-145) L 09/21/24 06:17 Potassium 4.0 mmol/L (3.5-5.1) 09/21/24 06:17 Chloride 103 mmol/L (98-107) 09/21/24 06:17 Carbon Dioxide 24.0 mmol/L (21.0-32.0) 09/21/24 06:17 Anion Gap 7 (5-15) 09/21/24 06:17 BUN 22 mg/dL (7-18) H 09/21/24 06:17 Creatinine 0.86 mg/dL (0.55-1.02) 09/21/24 06:17 Est GFR (MDRD) Af Amer 81 mL/min (>60) 09/21/24 06:17 Est GFR (MDRD) Non-Af 67 mL/min (>60) 09/21/24 06:17 BUN/Creatinine Ratio 25.6 RATIO (10-20) H 09/21/24 06:17 Glucose 99 mg/dL (74-106) 09/21/24 06:17 Vancomycin Trough 16.6 ug/mL (5.0-15.0) H 09/22/24 01:53 Microbiology Microbiology: Microbiology 09/18/24 15:57 Blood Culture (Wb) - Right Hand Blood Culture - Preliminary No growth in 48 hours. 09/18/24 15:57 Blood Culture (Wb) - Anticubital Left Blood Culture - Preliminary No growth in 48 hours. 09/20/24 17:57 Stool Clostridioides difficile (PCR) - Final Goal Trough Goal Trough: 15-20 mcg/mL Pharmacy Plan for Drug Dosing Pharmacy Plan for Drug Dosing: Pharmacy Service will continue to monitor and adjust dosing as required. TROUGH 16.6 @ 12 HOURAS. NO CHANGES, FOLLOW UP TROUGH IN 2 DAYS Follow-Up Labs Follow-Up Labs: Trough: Vancomycin Date/Time Labs Ordered Labs to be done on [date and time ordered]: 09/24 @ 0130
[2024-09-22] MEDS: Acetaminophen 500 MG Tablet 1000 MG PO (07:01)
[2024-09-22 07:51] LABS: Absolute Lymphocyte Count 1.46 X10^3/uL (0.83-4.51); Absolute Neutrophil Count 3.5 X10^3/uL (2.0-7.7); Basophil# 0.05 X10^3/uL; Basophil% 0.8 % (0-1); Eosinophil# 0.36 X10^3/uL; Eosinophils% 6.1 % (0-5); Hematocrit 30.9 % (37-47); Hemoglobin 10.4 g/dL (12.0-15.0); Lymphocyte # 1.46 X10^3/ul (0.83-4.51); Lymphocyte % 24.7 % (19-41); Mean Corp Hgb Conc 33.7 g/dL (32-36); Mean Corpuscular Hgb 29.5 pg (27.0-32.0); Mean Corpuscular Volume 87.5 fL (81-99); Mean Platelet Vol. 10.1 fl (6.2-12.0); Monocyte# 0.51 X10^3/uL; Monocyte% 8.6 % (0-10); NRBC Flagged by Analyzer 0 % (0-5); Neutrophil # 3.46 X10^3/uL (2.7-7.7); Neutrophil % 58.4 % (47-70); Platelet Count 257 K/mm3 (150-450); RBC Distribution Width CV 13.6 % (11.6-14.6); RBC Distribution Width SD 43.7 fl (35.1-43.9); Red Blood Count 3.53 M/mm3 (4.2-5.4); White Blood Count 5.9 K/mm3 (4.4-11.0)
[2024-09-22 08:00] LABS: Anion Gap 5 (5-15); BUN 25 mg/dL (7-18); Calcium,Total 9.2 mg/dL (8.5-10.1); Chloride 102 mmol/L (98-107); Creatinine, Serum 0.86 mg/dL (0.55-1.02); EST Glomerular Filtration Rate 67 mL/min (>60); Est Glom Filt Rate - Afr Amer 81 mL/min (>60); Estimated Creatinine Clearance 55.75 ml/min; Glucose 92 mg/dL (74-106); Potassium 4.4 mmol/L (3.5-5.1); Sodium Level 132 mmol/L (136-145)
--- NOTE | 2024-09-22 10:32 | WOUNDNOTE ---
wound photo: right foot
--- NOTE | 2024-09-22 10:32 | WOUNDNOTE ---
skin photo: right foot
--- NOTE | 2024-09-22 11:10 | PN_ITS ---
Subjective Subjective Patient seen and examined. She had no active complaints and had an uneventful night. Her diarrhea is improving. Review of systems is otherwise negative. She is due for surgery today. She is requesting to change her code status to full code today. Objective Data Objective Data Vital Signs: Vital Signs Temp Pulse Resp BP Pulse Ox O2 Del Method O2 Flow Rate 98.0 F 57 L 15 134/66 H 96 Room Air 2 09/22/24 04:36 09/22/24 04:36 09/22/24 04:36 09/22/24 04:36 09/22/24 04:36 09/22/24 04:36 09/21/24 03:42 Oxygen Flow Rate (L/min) 2 Oxygen Delivery Method Room Air Weight: 196 lb Body Mass Index (BMI) 30.7 Intake & Output: Intake and Output for Last 24 Hours 09/20/24 09/21/24 09/22/24 23:59 23:59 23:59 Intake Total 680 / 680 680 / 680 265 / 265 Output Total 2100 / 2500 600 / 800 200 / 200 Balance -1420 / -1820 80 / -120 65 / 65 Lab / Micro Data 09/22/24 06:57 09/22/24 06:57 Labs: Laboratory Results - last 24 hr 09/22/24 01:53: Vancomycin Trough 16.6 H 09/22/24 06:57: WBC 5.9, RBC 3.53 L, Hgb 10.4 L, Hct 30.9 L, MCV 87.5, MCH 29.5, MCHC 33.7, RDW Std Deviation 43.7, RDW Coeff of Danny 13.6, Plt Count 257, MPV 10.1, Immature Gran % (Auto) 1.400 H, Neut % (Auto) 58.4, Lymph % (Auto) 24.7, Carroll % (Auto) 8.6, Eos % (Auto) 6.1 H, Baso % (Auto) 0.8, Absolute Neuts (auto) 3.5, Absolute Lymphs (auto) 1.46, Nucleated RBC % 0, Sodium 132 L, Potassium 4.4, Chloride 102, Carbon Dioxide 25.0, Anion Gap 5, BUN 25 H, Creatinine 0.86, Estim Creat Clear Calc 55.75, Est GFR (MDRD) Af Amer 81, Est GFR (MDRD) Non-Af 67, BUN/Creatinine Ratio 29.0 H, Glucose 92, Calcium 9.2 Micro: Microbiology 09/18/24 15:57 Blood Culture (Wb) - Right Hand Blood Culture - Preliminary No growth in 48 hours. 09/18/24 15:57 Blood Culture (Wb) - Anticubital Left Blood Culture - Preliminary No growth in 48 hours. 09/20/24 17:57 Stool Clostridioides difficile (PCR) - Final Radiography Diagnostic Testing: Radiology Impression Extremity Arterial Study 09/20/24 13:06 Interpretation Summary Right KATHLEEN 1.18, normal. Doppler/PVR waveforms of the right leg normal at rest. TBI diminished, pedal/digit disease vs spasm. Left KATHLEEN 1.18, normal. TBI and Doppler/PVR waveforms of the left leg normal at rest. Ordering Physician: Ambrose Campos Referring Physician: Angelika Monsivais M.D. Performed By: Brigette Cavazos RVT and Student Physical Exam Const alert, oriented x3, no apparent distress and well nourished General Appearance: cooperative and well developed HEENT normocephalic, head/scalp atraumatic and moist oral mucous membranes Eyes PERRL and EOMs intact bilaterally Neck no lymphadenopathy, supple and no JVD Lymph Lymphatic: no lymphadenopathy noted and no lymphedema noted Resp normal respiratory effort, normal air movement, no retractions and clear to auscultation bilaterally Cardio regular rate, regular rhythm, S1 normal heart sound, S2 normal heart sound and no murmurs GI normal to inspection, nondistended, normoactive bowel sounds, soft to palpation, non-tender and non-distended Extremity Extremity Narrative: right foot wrapped in dressing. Skin Skin Narrative: as under extremities Neuro oriented x3, CN's II-XII intact bilaterally, no focal motor deficits and no sensory deficits noted Motor Exam: strength 5/5 throughout and general weakness Psych thought process normal, cooperative and affect normal Appearance: appropriate Assessment & Plan Assessment/Plan (1) Cellulitis of right lower extremity: (2) Chronic wound: PLAN: Plan #Celulitis with ulceration of the RLE * Failed outpatient therapy. Was treated with p.o. doxycycline on outpatient basis but failed therapy. * On IV vancomycin and clindamycin. Podiatry on board. * MRI of the foot ordered per podiatry showed marrow edema of the fifth metatarsus and the proximal phalanx of the fifth toe suggesting osteomyelitis and subcutaneous edema more significant laterally. * had bedside I&D done during this admission. * PT OT on board. Fall precautions. * Right foot x-ray showed diffusely demineralized bones with degenerative changes and diffuse soft tissue swelling with round radiolucent projection over the soft tissues lateral to the fifth MTP joint likely reflecting reported wound but cannot exclude subcutaneous and a gas producing organism * for surgery today * #Diarrhea * diarrhea is improving. C Diff was negative * on loperamide * #History of depression: On paroxetine #Hypertension: On amlodipine and lisinopril. IV hydralazine as needed #CHARLENE: On CPAP nightly # Hyperlipidemia: On statin DVT prophylaxis: Lovenox CODE STATUS: * Patient requests change her CODE STATUS full code today. She said that she did not fully understand the details of her CODE STATUS discussion when she was admitted. She says has been choose DNR CCA no intubation for her but on further thought she wants to be full code. * code status therefore switched to full code * Charges/Coding Visit Charges Inpatient E&M: 71889 Subs Hosp L2
--- NOTE | 2024-09-22 11:41 | CASEMGMT ---
Pt to have surgery today. RN CM to follow post surgery for wound care needs and therapy.
--- NOTE | 2024-09-22 13:50 | CON.PCM.ID_ITS ---
Assessment & Plan Assessment/Plan (1) Osteomyelitis: PLAN: R foot osteo. On vanc. OR today with Dr. Campos. Cdiff neg. H/o hives with PCN. Will add ceftriaxone and flagyl empirically. Will follow, thank you HPI Consult Data Date of Consult: 09/22/24 HPI Narrative Reason for Consultation: osteo HPI Narrative: LANE CHERRY, is a 84 F with h/o htn, peripheral neuropathy, presented with several days increased R foot pain, redness, swelling, and drainage. Denies fever or chills. Reports ulcer on R foot for about 6 months with intermittent infections that resolved with po abx. Now admitted, on vanc, seen by Dr. Campos, OR planned. Full ROS performed and neg except as noted above. [facility] Medical History Osteoporosis Irregular heart beat Hypertension Contusion of spinal cord Fall Wears glasses Wears dentures Arthritis Low iron High cholesterol History of hiatal hernia GERD (gastroesophageal reflux disease) CPAP (continuous positive airway pressure) dependence Sleep apnea Former smoker Cardiology follow-up encounter History of stress test CHARLENE (obstructive sleep apnea) Rheumatoid arthritis Hiatal hernia Abnormal EKG Essential hypertension Vitamin D deficiency Diverticulosis Anxiety and depression Rash HLD (hyperlipidemia) Other hereditary and idiopathic neuropathies Chronic ulcer of left foot with fat layer exposed Localized edema Venous insufficiency (chronic) (peripheral) Other specified peripheral vascular diseases 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 exposed CHARLENE (obstructive sleep apnea) Abnormal chest CT Lipodermatosclerosis Cellulitis of right leg Home Medications ?Medication ?Instructions ?Recorded ?Last Taken ?Type atorvastatin 20 mg tablet 20 mg PO QHS Cholesterol 12/15/15 09/17/24 History paroxetine HCl 20 mg tablet 20 mg PO DAILY Depression 12/15/15 09/17/24 History aspirin 81 mg tablet,delayed 81 mg PO DAILY Heart 07/19/22 09/18/24 History release (Adult Low Dose Aspirin) cholecalciferol (vitamin D3) 25 50 mcg PO DAILY Supplement 07/19/22 09/17/24 History mcg (1,000 unit) tablet acetaminophen 325 mg tablet 1,000 mg PO TID PRN PRN Pain Score 01/11/24 09/18/24 History (Tylenol) 1-10/Temp > 100.7 F lisinopril 2.5 mg tablet 2.5 mg PO 1700 #30 tabs 02/26/24 09/17/24 Rx omeprazole 20 mg capsule,delayed 20 mg PO DAILY Stomach acid #30 02/26/24 09/18/24 Rx release caps alendronate 70 mg tablet 70 mg PO QWEEK 09/18/24 09/15/24 History amlodipine 5 mg tablet 5 mg PO DAILY 09/18/24 09/18/24 History doxycycline hyclate 100 mg capsule 100 mg PO Q12H 09/18/24 09/18/24 History flaxseed oil 1,000 mg capsule 1,000 mg PO DAILY 09/18/24 09/18/24 History vitamin B complex (Vitamins B 1 cap PO DAILY 09/18/24 09/18/24 History Complex capsule) Allergy/AdvReac Type Severity Reaction Status Date / Time cephalexin (From Keflex) Allergy Unknown rash, Verified 09/18/24 15:01 headaches bee venom protein (honey bee) Allergy Anaphylaxis Verified 09/18/24 15:01 Penicillins Allergy Hives Verified 09/18/24 15:52 pantoprazole (From Protonix) AdvReac Intermediate Thrombocyto Verified 09/18/24 15:01 penia Family History Father Heart disease Mother Colon cancer Sister Colon cancer Brother CVA (cerebral vascular accident) COPD (chronic obstructive pulmonary disease) Surgical History History of esophagogastroduodenoscopy (EGD) History of colonoscopy History of cholecystectomy Hx of appendectomy History of hysterectomy History of bilateral knee replacement Social History household members: spouse housing: house number of children: 1 pets and animals: Yes (1 small dog and 2 outdoor cats) pets and animals: cat(s) and dog(s) leisure activities: other history of recent travel: No Smoking Status: Former smoker Tobacco: How many years used: 20 how long ago did patient quit smokin, 1ppd second hand exposure: Yes alcohol intake: never substance use type: does not use Physical Exam Const alert, oriented x3 and no apparent distress General Appearance: cooperative HEENT normocephalic and head/scalp atraumatic Eyes PERRL and EOMs intact bilaterally Neck supple and No nodes Resp normal air movement and clear to auscultation bilaterally Cardio regular rate and regular rhythm GI soft to palpation, non-tender and non-distended Extremity General Extremity: edema Skin Skin Narrative: reviewed wound photos Neuro CN's II-XII intact bilaterally Lab / Micro Data Attestation: I reviewed the patient's lab results. 09/22/24 06:57 09/22/24 06:57 Labs: Laboratory Results - last 24 hr 09/22/24 01:53: Vancomycin Trough 16.6 H 09/22/24 06:57: WBC 5.9, RBC 3.53 L, Hgb 10.4 L, Hct 30.9 L, MCV 87.5, MCH 29.5, MCHC 33.7, RDW Std Deviation 43.7, RDW Coeff of Danny 13.6, Plt Count 257, MPV 10.1, Immature Gran % (Auto) 1.400 H, Neut % (Auto) 58.4, Lymph % (Auto) 24.7, Ritchie % (Auto) 8.6, Eos % (Auto) 6.1 H, Baso % (Auto) 0.8, Absolute Neuts (auto) 3.5, Absolute Lymphs (auto) 1.46, Nucleated RBC % 0, Sodium 132 L, Potassium 4.4, Chloride 102, Carbon Dioxide 25.0, Anion Gap 5, BUN 25 H, Creatinine 0.86, Estim Creat Clear Calc 55.75, Est GFR (MDRD) Af Amer 81, Est GFR (MDRD) Non-Af 67, BUN/Creatinine Ratio 29.0 H, Glucose 92, Calcium 9.2 Imaging Radiology Impression Extremity Arterial Study 09/20/24 13:06 Interpretation Summary Right KATHLEEN 1.18, normal. Doppler/PVR waveforms of the right leg normal at rest. TBI diminished, pedal/digit disease vs spasm. Left KATHLEEN 1.18, normal. TBI and Doppler/PVR waveforms of the left leg normal at rest. Ordering Physician: Ambrose Campos Referring Physician: Angelika Monsivais M.D. Performed By: Brigette Cavazos RVT and Student
--- NOTE | 2024-09-22 15:49 | CASEMGMT ---
Social Work SW printed list from [facility] facilities in network w/pt's insurance, in pt's preferred geographic area and complete w/quality and resource use data. TONYA Smith
[2024-09-22] MEDS: Ceftriaxone 2 GM in 0.9% Normal Saline (50mL MB+) 50 ML IV (15:51)
[2024-09-22] MEDS: 0.9% Normal Saline (1000mL) 1,000 ML 15 ML IV (15:51)
--- NOTE | 2024-09-22 16:30 | BON_PTH ---
PATIENT: LANE CHERRY LOC: MS3 U#:[id number] AGE/SX: 84/F ROOM: [facility] RE09/18/[address]: Dr. Darien De Dios DO : 1940 BED: 1 DIS: 09/29/2024 SPEC #: [id number] RECD: 09/23/24 08:53 STATUS: ROQUE REQ #: [id number] MARILUZ: 09/22/24 16:[address]: Ambrose Campos DEPT: SURGICAL PATHOLOGY RECD BY: Iglesia Gonzalez ENTERED: 09/23/24 10:42 SP TYPE: Bone OTHR DR: MD Dr. Angelika Valdovinos MD Dr. Nana Yaa Koram, MD Dr. Robert Leininger, MD Tissues: Bone of foot, NOS Procedures: Decalcification bone/plaque Surgery Specimen Level IV Comments: @ Ordering doctor for DEC edited from to @ by MARY at 09/23/24 1051 @ Ordering doctor for SUIV edited from to @ by MARY at 09/23/24 1051 @ Submitting doctor edited from to @ by MARY at 09/23/24 1051 HEADER OPERATION: Post tibial tendon transfer, peroneal tendon transfer PRE-OP DIAGNOSIS: Osteomyelitis, Carvovarus deformity of foot, acquired TISSUE SUBMITTED: 5th metatarsal bone MICROSCOPIC DIAGNOSIS Fifth metatarsal bone, excision: A piece of bone with acute osteomyelitis. Moderate to darien chronic osteomyelitis and reactive changes. IZZY 09/27/2024 GROSS DIAGNOSIS Correlation with clinical findings and appropriate follow up are necessary. MICROSCOPIC DESCRIPTION Slides are reviewed. GROSS DESCRIPTION Received in fixative is one container labeled with the patient's name and designated 5th metatarsal bone. The specimen consists of a piece of bone measuring 2.0 x 1.0 x 0.8cm. The entire specimen is submitted in one cassette after decalcification. mr 09/23/2024 TC:2 CPT:78865,42211
--- NOTE | 2024-09-22 17:43 | PRE.ANES_ITS ---
ASA Classification* ASA Classification ASA Classification: 3 Assessment & Plan Anesthesia* Anesthesia Assessment Anesthesia Assessment: Discussed sedation and/or anesthesia options, risks, benefits, and alternatives with patient/parents/legal guardian/POA. Questions invited. The patient/parents/legal guardian/POA seems to understand and agrees to proceed with anesthesia plan. Reviewed the physical assessment, medical history, allergy history and patient home medications list prior to surgery/procedure/anesthetic and documented any changes. Performed airway and anesthesia risk assessments. Anesthesia Type Anesthesia Type: General and MAC History Source History Obtained from:: Patient and Chart Anesthesia Focused Assessment* Temperature: 98.0 F Pulse Rate: 52 Blood Pressure: 126/59 Respiratory Rate: 16 Pulse Ox: 97 Oxygen Delivery Method: Room Air Oxygen Flow Rate (L/min): 2 Airway Assessment Mouth opens: 2 cm Mallampati Score: IV Teeth Condition: Dentures (Patient has full lower and upper dentures. These are out.) Neck Range of motion (ROM): Full ROM Focused Labs Anesthesia Preop lab: CBC WBC 5.9 K/mm3 (4.4-11.0) 09/22/24 06:57 RBC 3.53 M/mm3 (4.2-5.4) L 09/22/24 06:57 Hgb 10.4 g/dL (12.0-15.0) L 09/22/24 06:57 Hct 30.9 % (37-47) L 09/22/24 06:57 Plt Count 257 K/mm3 (150-450) 09/22/24 06:57 CHEMISTRY Potassium 4.4 mmol/L (3.5-5.1) 09/22/24 06:57 Sodium 132 mmol/L (136-145) L 09/22/24 06:57 Magnesium 1.7 mg/dL (1.6-2.6) 09/19/24 05:44 Phosphorus 4.0 mg/dL (2.5-4.9) 09/19/24 05:44 BUN 25 mg/dL (7-18) H 09/22/24 06:57 Creatinine 0.86 mg/dL (0.55-1.02) 09/22/24 06:57 Glucose 92 mg/dL (74-106) 09/22/24 06:57 TSH 2.480 uIU/mL (0.358-3.740) 09/19/24 05:44 COAG PT 14.7 SECONDS (11.7-14.9) 09/19/24 05:44 Pre-Assessment Diagnosis/Proposed Procedure Planned Operative Procedure(s): Bladder procedure right foot Anesthesia History Anesthesia History - licensed final expense agents: Anesthesia History - licensed final expense agents Hx Hospitalization No 07/23/23 08:10 Any Problems With Anesthesia No 09/22/24 04:37 Cholinesterase deficiency No 09/22/24 04:37 You/Your Family Experience No 09/22/24 04:37 fever (hyperthermia) with Relationship Recent Exposure to Contagious No 09/22/24 04:37 Disease Does patient have nerve No 09/22/24 04:37 stimulator Patient instructed to have No 09/22/24 04:37 device shut off --Does patient have Pacemaker No 09/22/24 15:03 or ICD? When Was Last Pacemaker Check QUESTION #4 FULL TEXT: You/Your Family Experience fever (hyperthermia) with Anesthesia Patient states she is slow to wake up from anesthesia. Last Oral Intake Last Oral intake: Last Oral Intake NPO since 08:00 09/22/24 15:03 Meds taken in AM with sips of No 09/22/24 15:03 water? Meds patient instructed to take am of surgery Any additional information?: Yes NPO since: 07:00 (Patient had a liquid diet at 7 AM.) PONV PONV - licensed final expense agents: PONV - licensed final expense agents Female HX of Motion Sickness HX of N/V After Surgery Non-Smoker Duration of Surgery greater than 60 minutes Number of Risk Factors PONV Score Height & Weight Height & Weight: Anesthesia: Height & Weight Height 5 ft 7 in 09/22/24 15:03 Weight: 88.9 kg 09/22/24 15:03 Body Mass Index (BMI) 30.7 09/22/24 15:03 Respiratory Assessment Respiratory Assessment - licensed final expense agents: Respiratory Tract Infection Hx - licensed final expense agents Hx Respiratory Tract Infection No 09/22/24 04:37 STOP Sleep Apnea STOP Sleep Apnea - licensed final expense agents: STOP Sleep Apnea - licensed final expense agents Hx Hypertension Yes 09/19/24 08:16 Hx Sleep Apnea Yes 09/18/24 17:12 CPAP Yes 09/18/24 17:12 BIPAP No 09/18/24 17:12 Do you snore loudly (louder than talking or can be heard Do you often feel tired/ fatigued/ sleepy during daytime? Has anyone observed you stop breathing during sleep? STOP Results Positive 09/18/24 17:12 QUESTION #5 FULL TEXT : Do you snore loudly (louder than talking or can be heard through closed doors)? Tobacco Use History Tobacco Use History - licensed final expense agents: Tobacco Use History - licensed final expense agents Tobacco Use Smoking Status Former smoker 09/18/24 17:12 Hx Tobacco Use No 09/18/24 17:12 Years Smoking Packs Smoked per Day Smoking Cessation Date was No - quit smoking greater 09/18/24 17:12 within the last 15 years than 15 years ago Hx Smoking Cessation Date 06/01/79 09/18/24 17:12 Hx Smoking Cessation Counseling Hematologic Medial History Hematologic Hx - licensed final expense agents: Hematologic Medical Hx - dope pourer Hx of Blood Transfusion No 09/18/24 17:12 Hx of Transfusion in last 3 No 09/18/24 17:12 Months Date of Last Transfusion (if within last 3 months) Ever experience any problems No 09/18/24 17:12 with transfusion(s)? Specify any problems Hx of Preganancy in last 3 N/A 09/18/24 17:12 Months Nurse Filling Out Transfusion TWOLF 09/18/24 17:12 & Questions: Date: 09/18/24 09/18/24 17:12 Time: 17:14 09/18/24 17:12 Patient unable to answer at this time (ie. confused, unrespo /Reproduction History /Reproductive History - licensed final expense agents: /Reproductive Hx- licensed final expense agents Hx Now No 09/22/24 04:37 Gestational Age (in weeks): EDC: Hx Hx Para Hx Section SAB No 07/23/23 08:10 Active Medications Active Medications: Current Medications Generic Name Dose Route Start Last Admin Trade Name Freq PRN Reason Stop Dose Admin Acetaminophen 1,000 mg 09/18/24 16:31 09/22/24 07:01 Acetaminophen 500 Mg Tablet PO 1,000 mg TID PRN PRN Administration Pain Score 1-10/Temp > 100.7 F Amlodipine Besylate 5 mg 09/19/24 10:00 09/22/24 12:07 Amlodipine 5 Mg Tablet PO Not Given DAILY [facility] Protocol Aspirin 81 mg 09/19/24 08:00 09/22/24 07:55 Aspirin E.C. 81 Mg Tablet PO Not Given DAILYCOX MONETT Atorvastatin Calcium 20 mg 09/18/24 22:00 09/21/24 22:26 Atorvastatin Calcium 20 Mg Tablet PO 20 mg QHS [facility] Administration Enoxaparin Sodium 40 mg 09/19/24 10:00 09/22/24 07:56 Enoxaparin 40 Mg/0.4 Ml Syringe SC Not Given DAILY [facility] Vancomycin IV-PHARMACY TO DOSE 500 mls @ 250 mls/hr 09/18/24 16:32 1 each/ Sodium Chloride IV X1 PRN Rx to Dose Protocol Vancomycin HCl 750 mg/ Sodium 265 mls @ 250 mls/hr 09/19/24 02:00 09/22/24 15:00 Chloride IV Infused Q12H [facility]ALL Infusion Sodium Chloride 100 mls @ 15 mls/hr 09/18/24 17:20 IV .Q6H40M PRN Saline Flush Sodium Chloride 100 mls @ 15 mls/hr 09/18/24 17:20 IV .Q6H40M PRN Additional IVPB Infusion Sodium Chloride 100 mls @ 15 mls/hr 09/19/24 12:11 IV .Q6H40M PRN Saline Flush Sodium Chloride 100 mls @ 15 mls/hr 09/19/24 12:11 IV .Q6H40M PRN Additional IVPB Infusion Ceftriaxone Sodium 2 gm/ 50 mls @ 100 mls/hr 09/22/24 14:00 09/22/24 15:51 Sodium Chloride IV 100 mls/hr Q24 [facility] Administration Sodium Chloride 1,000 mls @ 15 mls/hr 09/22/24 15:45 09/22/24 15:51 IV 09/28/24 05:04 15 mls/hr .Q48H [facility]ALL Administration Protocol Lisinopril 2.5 mg 09/18/24 17:00 09/21/24 17:37 Lisinopril 2.5 Mg Tablet PO 2.5 mg 1700 MAR[facility]ALL Administration Protocol Loperamide HCl 2 mg 09/21/24 09:26 09/21/24 10:50 Loperamide 2 Mg Capsule PO 2 mg Q2H PRN PRN Administration DIARRHEA/LOOSE STOOLS Metronidazole 500 mg 09/22/24 14:00 Metronidazole 500 Mg Tablet PO TID [facility] Nutritional Formula (Lactose Free) 120 ml 09/19/24 08:00 09/22/24 12:08 Ensure Plus High Protein 120 Ml Liquid PO Not Given TIDCM [facility]ALL Nystatin 1 applic 09/18/24 22:00 09/22/24 12:08 Nystatin Powder 15gm Bottle TOPICAL Not Given BID [facility] Protocol Paroxetine HCl 20 mg 09/18/24 22:00 09/21/24 22:26 Paroxetine 20 Mg Tablet PO 20 mg HS MARSHALL Administration Sodium Chloride 10 - 40 ml 09/18/24 17:20 09/19/24 21:20 0.9% Saline Lock 10 Ml Syringe IV 20 ml UD PRN Administration SALINE FLUSH Sodium Chloride 10 - 40 ml 09/19/24 12:11 0.9% Saline Lock 10 Ml Syringe IV UD PRN SALINE FLUSH Vancomycin Protocol 1 lab 09/24/24 00:00 Vancomycin Trough/Random Due MC 09/24/24 03:30 DAILY [facility] PFSH Medical History Osteoporosis Irregular heart beat Hypertension Contusion of spinal cord Fall Wears glasses Wears dentures Arthritis Low iron High cholesterol History of hiatal hernia GERD (gastroesophageal reflux disease) CPAP (continuous positive airway pressure) dependence Sleep apnea Former smoker Cardiology follow-up encounter History of stress test CHARLENE (obstructive sleep apnea) Rheumatoid arthritis Hiatal hernia Abnormal EKG Essential hypertension Vitamin D deficiency Diverticulosis Anxiety and depression Rash HLD (hyperlipidemia) Other hereditary and idiopathic neuropathies Chronic ulcer of left foot with fat layer exposed Localized edema Venous insufficiency (chronic) (peripheral) Other specified peripheral vascular diseases 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 exposed CHARLENE (obstructive sleep apnea) Abnormal chest CT Lipodermatosclerosis Cellulitis of right leg Home Medications ?Medication ?Instructions ?Recorded ?Last Taken ?Type atorvastatin 20 mg tablet 20 mg PO QHS Cholesterol 12/15/15 09/17/24 History paroxetine HCl 20 mg tablet 20 mg PO DAILY Depression 12/15/15 09/17/24 History aspirin 81 mg tablet,delayed 81 mg PO DAILY Heart 07/19/22 09/18/24 History release (Adult Low Dose Aspirin) cholecalciferol (vitamin D3) 25 50 mcg PO DAILY Supplement 07/19/22 09/17/24 History mcg (1,000 unit) tablet acetaminophen 325 mg tablet 1,000 mg PO TID PRN PRN Pain Score 01/11/24 09/18/24 History (Tylenol) 1-10/Temp > 100.7 F lisinopril 2.5 mg tablet 2.5 mg PO 1700 #30 tabs 02/26/24 09/17/24 Rx omeprazole 20 mg capsule,delayed 20 mg PO DAILY Stomach acid #30 02/26/24 09/18/24 Rx release caps alendronate 70 mg tablet 70 mg PO QWEEK 09/18/24 09/15/24 History amlodipine 5 mg tablet 5 mg PO DAILY 09/18/24 09/18/24 History doxycycline hyclate 100 mg capsule 100 mg PO Q12H 09/18/24 09/18/24 History flaxseed oil 1,000 mg capsule 1,000 mg PO DAILY 09/18/24 09/18/24 History vitamin B complex (Vitamins B 1 cap PO DAILY 09/18/24 09/18/24 History Complex capsule) Allergy/AdvReac Type Severity Reaction Status Date / Time cephalexin (From Keflex) Allergy Unknown rash, Verified 09/18/24 15:01 headaches bee venom protein (honey bee) Allergy Anaphylaxis Verified 09/18/24 15:01 Penicillins Allergy Hives Verified 09/18/24 15:52 pantoprazole (From Protonix) AdvReac Intermediate Thrombocyto Verified 09/18/24 15:01 penia Family History Father Heart disease Mother Colon cancer Sister Colon cancer Brother CVA (cerebral vascular accident) COPD (chronic obstructive pulmonary disease) Surgical History History of esophagogastroduodenoscopy (EGD) History of colonoscopy History of cholecystectomy Hx of appendectomy History of hysterectomy History of bilateral knee replacement Social History household members: spouse housing: house number of children: 1 pets and animals: Yes (1 small dog and 2 outdoor cats) pets and animals: cat(s) and dog(s) leisure activities: other history of recent travel: No Smoking Status: Former smoker Tobacco: How many years used: 20 how long ago did patient quit smokin, 1ppd second hand exposure: Yes alcohol intake: never substance use type: does not use Review of Systems (Anesthesia) ROS Narrative System reviewed and no additional complaints, except as documented.
--- NOTE | 2024-09-22 18:39 | HP.PCM_ITS ---
HPI - General General Date of Admission: 09/18/24 Chief Complaint: Cellulitis HPI Narrative LANE CHERRY, is a 84 F who presents noted to have osteomyelitis of the right lateral foot positive on MRI patient does require surgery along with a tendon transfer to correct her lateral foot type. [facility]LY [facility] Medical History Osteoporosis Irregular heart beat Hypertension Contusion of spinal cord Fall Wears glasses Wears dentures Arthritis Low iron High cholesterol History of hiatal hernia GERD (gastroesophageal reflux disease) CPAP (continuous positive airway pressure) dependence Sleep apnea Former smoker Cardiology follow-up encounter History of stress test CHARLENE (obstructive sleep apnea) Rheumatoid arthritis Hiatal hernia Abnormal EKG Essential hypertension Vitamin D deficiency Diverticulosis Anxiety and depression Rash HLD (hyperlipidemia) Other hereditary and idiopathic neuropathies Chronic ulcer of left foot with fat layer exposed Localized edema Venous insufficiency (chronic) (peripheral) Other specified peripheral vascular diseases 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 exposed CHARLENE (obstructive sleep apnea) Abnormal chest CT Lipodermatosclerosis Cellulitis of right leg Home Medications ?Medication ?Instructions ?Recorded ?Last Taken ?Type atorvastatin 20 mg tablet 20 mg PO QHS Cholesterol 12/15/15 09/17/24 History paroxetine HCl 20 mg tablet 20 mg PO DAILY Depression 12/15/15 09/17/24 History aspirin 81 mg tablet,delayed 81 mg PO DAILY Heart 07/19/22 09/18/24 History release (Adult Low Dose Aspirin) cholecalciferol (vitamin D3) 25 50 mcg PO DAILY Supplement 07/19/22 09/17/24 History mcg (1,000 unit) tablet acetaminophen 325 mg tablet 1,000 mg PO TID PRN PRN Pain Score 01/11/24 09/18/24 History (Tylenol) 1-10/Temp > 100.7 F lisinopril 2.5 mg tablet 2.5 mg PO 1700 #30 tabs 02/26/24 09/17/24 Rx omeprazole 20 mg capsule,delayed 20 mg PO DAILY Stomach acid #30 02/26/24 09/18/24 Rx release caps alendronate 70 mg tablet 70 mg PO QWEEK 09/18/24 09/15/24 History amlodipine 5 mg tablet 5 mg PO DAILY 09/18/24 09/18/24 History doxycycline hyclate 100 mg capsule 100 mg PO Q12H 09/18/24 09/18/24 History flaxseed oil 1,000 mg capsule 1,000 mg PO DAILY 09/18/24 09/18/24 History vitamin B complex (Vitamins B 1 cap PO DAILY 09/18/24 09/18/24 History Complex capsule) Allergy/AdvReac Type Severity Reaction Status Date / Time cephalexin (From Keflex) Allergy Unknown rash, Verified 09/18/24 15:01 headaches bee venom protein (honey bee) Allergy Anaphylaxis Verified 09/18/24 15:01 Penicillins Allergy Hives Verified 09/18/24 15:52 pantoprazole (From Protonix) AdvReac Intermediate Thrombocyto Verified 09/18/24 15:01 penia Family History Father Heart disease Mother Colon cancer Sister Colon cancer Brother CVA (cerebral vascular accident) COPD (chronic obstructive pulmonary disease) Surgical History History of esophagogastroduodenoscopy (EGD) History of colonoscopy History of cholecystectomy Hx of appendectomy History of hysterectomy History of bilateral knee replacement Social History household members: spouse housing: house number of children: 1 pets and animals: Yes (1 small dog and 2 outdoor cats) pets and animals: cat(s) and dog(s) leisure activities: other history of recent travel: No Smoking Status: Former smoker Tobacco: How many years used: 20 how long ago did patient quit smokin, 1ppd second hand exposure: Yes alcohol intake: never substance use type: does not use Vital Signs Vital Signs Vital Signs: 09/21/24 22:00 09/21/24 22:00 09/21/24 22:00 Temperature 97.8 F Temperature Source Oral Pulse Rate 58 L Pulse Strength Weak (1+) Respiratory Rate 15 15 Respiratory Effort Respiratory Depth Normal Respiratory Pattern Normal Blood Pressure 135/62 H Blood Pressure Mean 86 Blood Pressure Source Monitor Blood Pressure Position Semi-Fowlers Blood Pressure Location Right Arm Pulse Ox 98 Oxygen Delivery Method Room Air Room Air Oxygen Flow Rate (L/min) 09/22/24 04:36 09/22/24 10:00 09/22/24 15:03 Temperature 98.0 F 98.0 F Temperature Source Temporal Temporal Pulse Rate 57 L 52 L Pulse Strength Respiratory Rate 15 16 Respiratory Effort Non-Labored Respiratory Depth Respiratory Pattern Blood Pressure 134/66 H 126/59 H Blood Pressure Mean 88 81 Blood Pressure Source Monitor Monitor Blood Pressure Position Semi-Fowlers Blood Pressure Location Right Arm Pulse Ox 96 97 Oxygen Delivery Method Room Air Room Air Room Air Oxygen Flow Rate (L/min) 09/22/24 17:54 Temperature 98.0 F Temperature Source Pulse Rate 52 L Pulse Strength Respiratory Rate 16 Respiratory Effort Respiratory Depth Respiratory Pattern Blood Pressure 126/59 H Blood Pressure Mean Blood Pressure Source Blood Pressure Position Blood Pressure Location Pulse Ox 97 Oxygen Delivery Method Room Air Oxygen Flow Rate (L/min) 2 Weight Weight: 88.9 kg Body Mass Index (BMI) 30.7 Physical Exam Narrative Patient does understand and seen with her sister regarding all risks complications and benefits of the surgical procedure we tried a conservative method she has failed IV antibiotics were helpful but she did have an MRI that confirmed osteomyelitis. She also has severe cavovarus foot type does need release. Results Lab / Micro Data 09/22/24 06:57 09/22/24 06:57 Labs: Laboratory Results - last 24 hr 09/22/24 01:53: Vancomycin Trough 16.6 H 09/22/24 06:57: WBC 5.9, RBC 3.53 L, Hgb 10.4 L, Hct 30.9 L, MCV 87.5, MCH 29.5, MCHC 33.7, RDW Std Deviation 43.7, RDW Coeff of Danny 13.6, Plt Count 257, MPV 10.1, Immature Gran % (Auto) 1.400 H, Neut % (Auto) 58.4, Lymph % (Auto) 24.7, Mills % (Auto) 8.6, Eos % (Auto) 6.1 H, Baso % (Auto) 0.8, Absolute Neuts (auto) 3.5, Absolute Lymphs (auto) 1.46, Nucleated RBC % 0, Sodium 132 L, Potassium 4.4, Chloride 102, Carbon Dioxide 25.0, Anion Gap 5, BUN 25 H, Creatinine 0.86, Estim Creat Clear Calc 55.75, Est GFR (MDRD) Af Amer 81, Est GFR (MDRD) Non-Af 67, BUN/Creatinine Ratio 29.0 H, Glucose 92, Calcium 9.2 Assessment & Plan Assessment/Plan (1) Osteomyelitis: PLAN: Incision and drainage bone cortex right foot with possible advancement of rotational flap. (2) Cavovarus deformity of foot, acquired: PLAN: Plan for tendon transfer and posterior tibial tendon transfer right lower leg.
[2024-09-22] MEDS: Bupivacaine Mpf 0.5% 30 ML VIAL (20:13)
--- NOTE | 2024-09-22 21:20 | RAD_ITS ---
STUDY: X-RAY - RIGHT FOOT CLINICAL: Female, 84 years old. PAIN TECHNIQUE: Single spot film of the right foot. COMPARISON: Right foot radiographs dated 09/18/2024. FINDINGS: Normal visualized calcaneus and tarsal bones. There is new resection of the fifth metatarsal head/neck. Normal first through fourth metatarsals. Major soft tissue swelling of the lateral aspect of the forefoot. RAD/Ankle 2 Views IMPRESSION: New resection of the fifth metatarsal head/neck. Electronically Signed: Real Canseco MD at 8:33 EST ,
--- NOTE | 2024-09-22 22:46 | PCM.POST.ANE ---
Anesthesia: Postop Eval I Current Vital Signs Temperature: 98.4 F Pulse Rate: 53 Blood Pressure: 139/46 Respiratory Rate: 16 Pulse Ox: 94 Oxygen Delivery Method: Room Air Assessment Airway patent: Yes Spontaneous unlabored respirations: Yes Mental status: Awake and Calm nausea: No Vomiting: No Anesthesia Complication: No Fluid Hydration Crystalloid volume administer (ml): 600 Total IV fluid infused: 600 Progress Note Anesthesia document: Postop Eval 1 completed: Yes
--- NOTE | 2024-09-22 23:32 | PCM.POSTANE2 ---
Anesthesia Postop Eval I Sum Postop Eval Completion status Anesthesia document: Postop Eval 1 completed: Yes Anesthesia Postop Eval I Summary Anesthesia Postop Eval I Summary: Anesthesia Postop Eval I: Assessment Summary Airway patent Yes 09/22/24 22:48 Spontaneous unlabored Yes 09/22/24 22:48 respirations Mental status Awake,Calm 09/22/24 22:48 nausea No 09/22/24 22:48 Vomiting No 09/22/24 22:48 Anesthesia Postop Eval I: Fluid Summary Crystalloid volume administer 600 09/22/24 22:48 (ml) Colloids volume administered ( ml) Blood Product volume administered (ml) Total IV fluid infused 600 09/22/24 22:48 Anesthesia Postop Eval I: Summary Notes Anesthesia Complication No 09/22/24 22:48 Anesthesia Complication Comment: Post-operative progress note Anesthesia: Postop Eval II Evaluation Mental status: Awake and Calm Pain Level: 1 nausea: No Vomiting: No Complications Anesthesia Complication: No
[2024-09-23] VITALS (10 sets, daily range): BP systolic 92–142; BP diastolic 40–70; PULSE 56–96; RESP 14–18; TEMP 36.4–38.1; O2SAT 93–99
[2024-09-23] MEDS: metroNIDAZOLE 500 MG Tablet PO ×4 (00:01→21:23)
[2024-09-23] MEDS: Atorvastatin Calcium 20 MG Tablet PO ×2 (00:01→21:24)
[2024-09-23] MEDS: Nystatin Powder 15gm Bottle 1 APPLIC TOPICAL ×3 (00:01→21:24)
[2024-09-23] MEDS: Paroxetine 20 MG Tablet PO ×2 (00:02→21:24)
[2024-09-23] MEDS: Acetaminophen 500 MG Tablet 1000 MG PO ×3 (00:02→21:23)
[2024-09-23] MEDS: Vancomycin HCl 750 MG in 0.9% Normal Saline (250mL Bag) 250 ML 250 MG IV ×2 (01:57→14:41)
[2024-09-23] MEDS: Morphine 2 MG/ML Syringe IV (05:19)
[2024-09-23 06:59] LABS: Absolute Lymphocyte Count 1.61 X10^3/uL (0.83-4.51); Absolute Neutrophil Count 7.5 X10^3/uL (2.0-7.7); Basophil# 0.04 X10^3/uL; Basophil% 0.4 % (0-1); Eosinophil# 0.26 X10^3/uL; Eosinophils% 2.5 % (0-5); Hematocrit 32.5 % (37-47); Hemoglobin 10.6 g/dL (12.0-15.0); Lymphocyte # 1.61 X10^3/ul (0.83-4.51); Lymphocyte % 15.6 % (19-41); Mean Corp Hgb Conc 32.6 g/dL (32-36); Mean Corpuscular Hgb 29.8 pg (27.0-32.0); Mean Corpuscular Volume 91.3 fL (81-99); Mean Platelet Vol. 10.3 fl (6.2-12.0); Monocyte# 0.82 X10^3/uL; NRBC Flagged by Analyzer 0 % (0-5); Neutrophil # 7.51 X10^3/uL (2.7-7.7); Neutrophil % 72.8 % (47-70); Platelet Count 237 K/mm3 (150-450); RBC Distribution Width CV 13.7 % (11.6-14.6); RBC Distribution Width SD 45.9 fl (35.1-43.9); Red Blood Count 3.56 M/mm3 (4.2-5.4); White Blood Count 10.3 K/mm3 (4.4-11.0)
[2024-09-23 07:37] LABS: Anion Gap 5 (5-15); BUN 18 mg/dL (7-18); BUN/Creat Ratio 22.8 RATIO (10-20); Calcium,Total 9.1 mg/dL (8.5-10.1); Chloride 103 mmol/L (98-107); Creatinine, Serum 0.79 mg/dL (0.55-1.02); EST Glomerular Filtration Rate 74 mL/min (>60); Est Glom Filt Rate - Afr Amer 89 mL/min (>60); Estimated Creatinine Clearance 59.93 ml/min; Glucose 98 mg/dL (74-106); Potassium 4.1 mmol/L (3.5-5.1); Sodium Level 133 mmol/L (136-145)
[2024-09-23] MEDS: Aspirin E.C. 81 MG Tablet PO (08:24)
[2024-09-23] MEDS: Ceftriaxone 2 GM in 0.9% Normal Saline (50mL MB+) 50 ML IV (10:05)
--- NOTE | 2024-09-23 10:12 | PCM.PN.ID ---
Physical Exam Narrative Foot is sore, no fever, no n/v/d. Const alert and no apparent distress General Appearance: cooperative Resp normal air movement and clear to auscultation bilaterally Cardio regular rate and regular rhythm GI soft to palpation, non-tender and non-distended Skin Skin Narrative: foot wrapped ID ID: Route of nutrition/ use of supplements: [] Nutritional Intake: [] IV Site: [] Rowland Catheter: [] Assessment & Plan Assessment/Plan (1) Osteomyelitis: PLAN: R foot osteo. On vanc, ceftriaxone, flagyl. OR 09/22/[address] Campos. Cdiff neg. H/o hives with PCN. Surg cx pending. Will follow
[2024-09-23] MEDS: Enoxaparin 40 MG/0.4 ML Syringe SC (10:17)
[2024-09-23] MEDS: amLODIPine 5 MG Tablet PO (10:17)
[2024-09-23] MEDS: HYDROmorphone Inj 0.2 MG/ML SYRINGE IV (11:03)
[2024-09-23] MEDS: 0.9% Saline Lock 10 ML Syringe IV (11:04)
[2024-09-23] MEDS: Ensure Plus High Protein 120 ML LIQUID PO ×2 (11:43→17:08)
--- NOTE | 2024-09-23 12:51 | CASEMGMT ---
Addendum entered by Anita Serrano 09/23/24 16:51: Pt accepted by both facilities. SW discussed acceptances with pt; pt [facility]. [facility] updated. Plan: [facility]; precert pending KALLI Walker Addendum entered by Anita Serrano 09/23/24 15:17: Social Work- SW spoke with pt who would like to change [facility] due to proximity to pt and the distance pt has to walk to get into hospital. [facility] advised [facility] and T[facility] admissions. [facility] remains available to follow. KALLI Walker Original Note: Social Work- SW met with pt to discuss pt discharge preferences. A list of SNF providers including quality and resource use data and consistent with the patient?s preferred geographic region, medical needs, and insurance network were provided from the [employer] Guide. Pt reports that her insurance is changing to [employer] as of Oct 06. Pt reports that she would like TCU. [facility] completed referral and provided insurance change information. [facility] remains available to follow. KALLI Walker
--- NOTE | 2024-09-23 13:24 | PN_ITS ---
Subjective Subjective Patient seen and examined. She had no active complaints apart from pain from her right foot due to the surgery. Review of systems is otherwise negative. She has remained hemodynamically stable. Objective Data Objective Data Vital Signs: Vital Signs Temp Pulse Resp BP Pulse Ox O2 Del Method O2 Flow Rate 98.7 F 56 L 18 125/50 H 99 Nasal Cannula 2 09/23/24 08:29 09/23/24 08:29 09/23/24 08:29 09/23/24 08:29 09/23/24 08:29 09/23/24 08:29 09/23/24 08:29 Oxygen Flow Rate (L/min) 2 Oxygen Delivery Method Nasal Cannula Weight: 195 lb 15.855 oz Body Mass Index (BMI) 30.7 Intake & Output: Intake and Output for Last 24 Hours 09/21/24 09/22/24 09/23/24 23:59 23:59 23:59 Intake Total 680 / 680 580 / 830 1115 / 1115 Output Total 600 / 800 200 / 200 375 / 375 Balance 80 / -120 380 / 630 740 / 740 Lab / Micro Data 09/23/24 06:21 09/23/24 06:21 Labs: Laboratory Results - last 24 hr 09/23/24 06:21: WBC 10.3, RBC 3.56 L, Hgb 10.6 L, Hct 32.5 L, MCV 91.3, MCH 29.8, MCHC 32.6, RDW Std Deviation 45.9 H, RDW Coeff of Danny 13.7, Plt Count 237, MPV 10.3, Immature Gran % (Auto) 0.700, Neut % (Auto) 72.8 H, Lymph % (Auto) 15.6 L, [place] % (Auto) 8.0, Eos % (Auto) 2.5, Baso % (Auto) 0.4, Absolute Neuts (auto) 7.5, Absolute Lymphs (auto) 1.61, Nucleated RBC % 0, Sodium 133 L, Potassium 4.1, Chloride 103, Carbon Dioxide 25.0, Anion Gap 5, BUN 18, Creatinine 0.79, Estim Creat Clear Calc 59.93, Est GFR (MDRD) Af Amer 89, Est GFR (MDRD) Non-Af 74, BUN/Creatinine Ratio 22.8 H, Glucose 98, Calcium 9.1 Micro: Microbiology 09/18/24 15:57 Blood Culture (Wb) - Right Hand Blood Culture - Preliminary No growth in 48 hours. 09/18/24 15:57 Blood Culture (Wb) - Anticubital Left Blood Culture - Preliminary No growth in 48 hours. 09/20/24 17:57 Stool Clostridioides difficile (PCR) - Final Radiography Diagnostic Testing: Radiology Impression Ankle X-Ray 09/22/24 21:20 IMPRESSION: New resection of the fifth metatarsal head/neck. Electronically Signed: Real Canseco MD at 8:33 EST , Physical Exam Const alert, oriented x3, no apparent distress and well nourished General Appearance: cooperative and well developed HEENT normocephalic, head/scalp atraumatic and moist oral mucous membranes Eyes PERRL and EOMs intact bilaterally Neck no lymphadenopathy, supple and no JVD Lymph Lymphatic: no lymphadenopathy noted and no lymphedema noted Resp normal respiratory effort, normal air movement, no retractions and clear to auscultation bilaterally Cardio regular rate, regular rhythm, S1 normal heart sound, S2 normal heart sound and no murmurs GI normal to inspection, nondistended, normoactive bowel sounds, soft to palpation, non-tender and non-distended Extremity Extremity Narrative: right foot wrapped in bandage Skin Skin Narrative: as under extremities Neuro oriented x3, CN's II-XII intact bilaterally, no focal motor deficits and no sensory deficits noted Motor Exam: strength 5/5 throughout and general weakness Psych thought process normal, cooperative and affect normal Appearance: appropriate Assessment & Plan Assessment/Plan (1) Cellulitis of right lower extremity: (2) Chronic wound: PLAN: Plan #right foot osteeomyelitis * Failed outpatient therapy. Was treated with p.o. doxycycline on outpatient basis but failed therapy. * On IV vancomycin and clindamycin. Podiatry on board. * MRI of the foot ordered per podiatry showed marrow edema of the fifth metatarsus and the proximal phalanx of the fifth toe suggesting osteomyelitis and subcutaneous edema more significant laterally. * had bedside I&D done during this admission. * PT OT on board. Fall precautions. * Right foot x-ray showed diffusely demineralized bones with degenerative changes and diffuse soft tissue swelling with round radiolucent projection over the soft tissues lateral to the fifth MTP joint likely reflecting reported wound but cannot exclude subcutaneous and a gas producing organism * had surgery on her foot yesterday * ID on board. On vancomycin, ceftriaxone and Flagyl. Awaiting surgery cultures. * #Diarrhea * diarrhea is improving. C Diff was negative * on loperamide * #History of depression: On paroxetine #Hypertension: On amlodipine and lisinopril. IV hydralazine as needed #CHARLENE: On CPAP nightly # Hyperlipidemia: On statin DVT prophylaxis: Lovenox CODE STATUS: * Disposition: Will likely benefit from placement. Case management on board. Charges/Coding Visit Charges Inpatient E&M: 55312 Subs Hosp L2
--- NOTE | 2024-09-23 15:26 | CASEMGMT ---
Addendum entered by Cheyenne Denson 09/23/24 16:26: [facility] is foc. Both snf's updated. Cheyenne Denson DC Planning Asst. Addendum entered by Cheyenne Denson 09/23/24 15:42: [facility] accepted. SW updated. Cheyenne Denson DC Planning Asst. Original Note: Discharge Planning Referral sent to [facility] and [facility]. Cheyenne Denson DC Planning Asst.
[2024-09-23] MEDS: oxyCODONE 5 MG Tablet PO ×2 (15:29→21:23)
[2024-09-23] MEDS: Lisinopril 2.5 MG Tablet PO (17:09)
[2024-09-24] VITALS (8 sets, daily range): BP systolic 83–118; BP diastolic 36–94; PULSE 59–84; RESP 15–20; TEMP 36.5–38.1; O2SAT 92–99
[2024-09-24] MEDS: oxyCODONE 5 MG Tablet PO ×2 (01:39→06:17)
--- NOTE | 2024-09-24 02:30 | PCM.RX.CS ---
Consult Antibiotic Management Pharmacy has been consulted to manage selected antibiotic: Vancomycin Type of Intervention Type of Consult: Follow-up Suspected Infection Suspected Infection: Skin/Soft tissue Labs Labs: Sodium 133 mmol/L (136-145) L 09/23/24 06:21 Potassium 4.1 mmol/L (3.5-5.1) 09/23/24 06:21 Chloride 103 mmol/L (98-107) 09/23/24 06:21 Carbon Dioxide 25.0 mmol/L (21.0-32.0) 09/23/24 06:21 Anion Gap 5 (5-15) 09/23/24 06:21 BUN 18 mg/dL (7-18) 09/23/24 06:21 Creatinine 0.79 mg/dL (0.55-1.02) 09/23/24 06:21 Est GFR (MDRD) Af Amer 89 mL/min (>60) 09/23/24 06:21 Est GFR (MDRD) Non-Af 74 mL/min (>60) 09/23/24 06:21 BUN/Creatinine Ratio 22.8 RATIO (10-20) H 09/23/24 06:21 Glucose 98 mg/dL (74-106) 09/23/24 06:21 Vancomycin Trough 22.0 ug/mL (5.0-15.0) H 09/24/24 01:42 Microbiology Microbiology: Microbiology 09/18/24 15:57 Blood Culture (Wb) - Right Hand Blood Culture - Final No growth in 5 days. 09/18/24 15:57 Blood Culture (Wb) - Anticubital Left Blood Culture - Final No growth in 5 days. 09/22/24 Unknown Bone - 5th Toe Gram Stain - Final 09/20/24 17:57 Stool Clostridioides difficile (PCR) - Final Dosing Weight Weight used for dosin kg Estimated Creatinine Clearance Estimated Creatinine Clearance: 60 Goal Trough Goal Trough: 15-20 mcg/mL Pharmacy Plan for Drug Dosing Pharmacy Plan for Drug Dosing: Vancomycin trough level of 22.0, drawn 11hrs post-dose, was above the target range of 15-20. Will suspend current dosing and will draw a random vanco level in twelve hours to determine further orders. Pharmacy Service will continue to monitor and adjust dosing as required. Follow-Up Labs Follow-Up Labs: Trough: Vancomycin (random) Date/Time Labs Ordered Labs to be done on [date and time ordered]: 09/24/24 @4798 (random)
[2024-09-24 05:59] LABS: Absolute Lymphocyte Count 0.87 X10^3/uL (0.83-4.51); Absolute Neutrophil Count 6.3 X10^3/uL (2.0-7.7); Basophil# 0.01 X10^3/uL; Basophil% 0.1 % (0-1); Eosinophil# 0.34 X10^3/uL; Eosinophils% 4.1 % (0-5); Hematocrit 29.6 % (37-47); Hemoglobin 9.6 g/dL (12.0-15.0); Lymphocyte # 0.87 X10^3/ul (0.83-4.51); Lymphocyte % 10.6 % (19-41); Mean Corp Hgb Conc 32.4 g/dL (32-36); Mean Corpuscular Hgb 29.3 pg (27.0-32.0); Mean Corpuscular Volume 90.2 fL (81-99); Mean Platelet Vol. 10.2 fl (6.2-12.0); Monocyte# 0.69 X10^3/uL; Monocyte% 8.4 % (0-10); NRBC Flagged by Analyzer 0 % (0-5); Neutrophil # 6.25 X10^3/uL (2.7-7.7); Neutrophil % 76.1 % (47-70); Platelet Count 206 K/mm3 (150-450); RBC Distribution Width CV 14.1 % (11.6-14.6); RBC Distribution Width SD 46.5 fl (35.1-43.9); Red Blood Count 3.28 M/mm3 (4.2-5.4); White Blood Count 8.2 K/mm3 (4.4-11.0)
[2024-09-24] MEDS: metroNIDAZOLE 500 MG Tablet PO ×3 (06:15→21:23)
[2024-09-24] MEDS: Acetaminophen 500 MG Tablet 1000 MG PO ×3 (06:17→21:53)
[2024-09-24 06:57] LABS: Anion Gap 5 (5-15); BUN 25 mg/dL (7-18); BUN/Creat Ratio 21.4 RATIO (10-20); Calcium,Total 8.2 mg/dL (8.5-10.1); Chloride 103 mmol/L (98-107); Creatinine, Serum 1.17 mg/dL (0.55-1.02); EST Glomerular Filtration Rate 47 mL/min (>60); Est Glom Filt Rate - Afr Amer 57 mL/min (>60); Estimated Creatinine Clearance 40.98 ml/min; Glucose 99 mg/dL (74-106); Potassium 4.1 mmol/L (3.5-5.1); Sodium Level 132 mmol/L (136-145)
[2024-09-24] MEDS: 0.9% Normal Saline (1000mL) 1,000 ML 999 ML IV (09:38)
[2024-09-24] MEDS: Ensure Plus High Protein 120 ML LIQUID PO ×2 (09:39→12:42)
[2024-09-24] MEDS: Aspirin E.C. 81 MG Tablet PO (09:40)
--- NOTE | 2024-09-24 10:10 | PCM.PN.ID ---
Physical Exam Narrative Some fever and low BP this AM, foot mildly sore, no n/v/d. Const alert and no apparent distress General Appearance: cooperative Resp normal air movement and clear to auscultation bilaterally Cardio regular rate and regular rhythm GI soft to palpation, non-tender and non-distended Skin Skin Narrative: R foot wrapped ID ID: Route of nutrition/ use of supplements: [] Nutritional Intake: [] IV Site: [] Rowland Catheter: [] Assessment & Plan Assessment/Plan (1) Osteomyelitis: PLAN: R foot osteo. On vanc, ceftriaxone, flagyl. OR 09/22/[address] Campos. Cdiff neg. H/o hives with PCN. Surg cx with staph aureus so far. Will follow
--- NOTE | 2024-09-24 10:44 | PN_ITS ---
Subjective Subjective Patient seen and examined. Complains of spasms in her right lower extremity. Review of systems otherwise negative. Blood pressures running low in the 80s systolic today. She is asymptomatic. Objective Data Objective Data Vital Signs: Vital Signs Temp Pulse Resp BP Pulse Ox O2 Del Method O2 Flow Rate 98 F 59 L 18 85/42 L 92 Room Air 2 09/24/24 09:22 09/24/24 09:22 09/24/24 09:22 09/24/24 09:22 09/24/24 09:22 09/24/24 09:22 09/24/24 08:04 Oxygen Flow Rate (L/min) 2 Oxygen Delivery Method Room Air Weight: 195 lb 15.855 oz Body Mass Index (BMI) 30.7 Intake & Output: Intake and Output for Last 24 Hours 09/22/24 09/23/24 09/24/24 23:59 23:59 23:59 Intake Total 580 / 830 2680 / 2680 Output Total 200 / 200 1075 / 1075 700 / 700 Balance 380 / 630 1605 / 1605 -700 / -700 Lab / Micro Data 09/24/24 05:23 09/24/24 05:23 Labs: Laboratory Results - last 24 hr 09/24/24 01:42: Vancomycin Trough 22.0 H 09/24/24 05:23: WBC 8.2, RBC 3.28 L, Hgb 9.6 L, Hct 29.6 L, MCV 90.2, MCH 29.3, MCHC 32.4, RDW Std Deviation 46.5 H, RDW Coeff of Danny 14.1, Plt Count 206, MPV 10.2, Immature Gran % (Auto) 0.700, Neut % (Auto) 76.1 H, Lymph % (Auto) 10.6 L, [place] % (Auto) 8.4, Eos % (Auto) 4.1, Baso % (Auto) 0.1, Absolute Neuts (auto) 6.3, Absolute Lymphs (auto) 0.87, Nucleated RBC % 0, Sodium 132 L, Potassium 4.1, Chloride 103, Carbon Dioxide 24.0, Anion Gap 5, BUN 25 H, Creatinine 1.17 H , Estim Creat Clear Calc 40.98, Est GFR (MDRD) Af Amer 57 L, Est GFR (MDRD) Non- Af 47 L, BUN/Creatinine Ratio 21.4 H, Glucose 99, Calcium 8.2 L Micro: Microbiology 09/22/24 Unknown Bone - 5th Toe Gram Stain - Final 09/22/24 Unknown Bone - 5th Toe Wound Culture - Preliminary Staphylococcus aureus 09/18/24 15:57 Blood Culture (Wb) - Right Hand Blood Culture - Final No growth in 5 days. 09/18/24 15:57 Blood Culture (Wb) - Anticubital Left Blood Culture - Final No growth in 5 days. 09/20/24 17:57 Stool Clostridioides difficile (PCR) - Final Physical Exam Const alert, oriented x3 and no apparent distress General Appearance: cooperative and well developed HEENT normocephalic, head/scalp atraumatic and moist oral mucous membranes Eyes PERRL and EOMs intact bilaterally Neck no lymphadenopathy, supple and no JVD Lymph Lymphatic: no lymphadenopathy noted and no lymphedema noted Resp normal respiratory effort, normal air movement, no retractions and clear to auscultation bilaterally Cardio regular rate, regular rhythm, S1 normal heart sound, S2 normal heart sound and no murmurs GI normal to inspection, nondistended, normoactive bowel sounds, soft to palpation, non-tender and non-distended Extremity Extremity Narrative: right foot wrapped in bandage Skin Skin Narrative: as under extremities Neuro oriented x3, CN's II-XII intact bilaterally, no focal motor deficits and no sensory deficits noted Motor Exam: strength 5/5 throughout and general weakness Psych thought process normal, cooperative and affect normal Appearance: appropriate Assessment & Plan Assessment/Plan (1) Cellulitis of right lower extremity: (2) Chronic wound: PLAN: Plan #right foot osteeomyelitis * Failed outpatient therapy. Was treated with p.o. doxycycline on outpatient basis but failed therapy. * On IV vancomycin and clindamycin. Podiatry on board. * MRI of the foot ordered per podiatry showed marrow edema of the fifth metatarsus and the proximal phalanx of the fifth toe suggesting osteomyelitis and subcutaneous edema more significant laterally. * had bedside I&D done during this admission. * PT OT on board. Fall precautions. * Right foot x-ray showed diffusely demineralized bones with degenerative changes and diffuse soft tissue swelling with round radiolucent projection over the soft tissues lateral to the fifth MTP joint likely reflecting reported wound but cannot exclude subcutaneous and a gas producing organism * had surgery on her foot yesterday * ID on board. On vancomycin, ceftriaxone and Flagyl. Awaiting surgery cultures. * #Hypotension * Blood pressure down in the 80s systolic today. * will give IV normal saline 1L x 1 and continue with normal saline 150cc/hr x 2 bags. Hold BP meds * #Diarrhea * diarrhea is improving. C Diff was negative * on loperamide * #History of depression: On paroxetine #Hypertension: * On amlodipine and lisinopril. * IV hydralazine as needed. * Hold amlodipine and lisinopril due to hypotension. #CHARLENE: On CPAP nightly # Hyperlipidemia: On statin DVT prophylaxis: Lovenox CODE STATUS: * full code * Disposition: Will likely benefit from placement. Case management on board. Charges/Coding Visit Charges Inpatient E&M: 17483 Subs Hosp L2
[2024-09-24] MEDS: Ceftriaxone 2 GM in 0.9% Normal Saline (50mL MB+) 50 ML IV (11:18)
[2024-09-24] MEDS: Nystatin Powder 15gm Bottle 1 APPLIC TOPICAL ×2 (11:21→21:23)
[2024-09-24] MEDS: Menthol/Lanolin/Calamine/Znox 113 GM Tube 1 APPLIC TOPICAL ×2 (11:21→21:24)
[2024-09-24] MEDS: Enoxaparin 40 MG/0.4 ML Syringe SC (11:22)
--- NOTE | 2024-09-24 11:46 | CASEMGMT ---
Social Work- SW received notice that [facility] may not be able to take pt d/t insurance change in October. SW called [facility] and verified that their coverage would end at 12:31AM on 10/06 and a new precert would need to be obtained from the new insurance, which they are not in network with. SW updated DCA. SW updated pt that [facility], pt alternate, is in network with both insurances. Pt agreeable to [facility]. Pt reports that she does have a bi-pap that she uses at night and spouse could take to the SNF. Pt is unaware of the settings. DCA advised. SW remains available to follow. KALLI Walker
--- NOTE | 2024-09-24 12:02 | CASEMGMT ---
Addendum entered by Cheyenne Denson 09/24/24 12:44: Pt and family agreeable to placement at [facility]. [facility] has accepted. Cheyenne Denson DC Planning Asst. Original Note: Discharge Planning [facility] states that pt will switch to [facility] on 10/06/24 and they are not a provider. Msg sent to [facility] to see if they are still willing to accept. SW aware and will touch base with pt and family. Florence Labadie asked to cancel referral. Cheyenne Denson DC Planning Asst.
[2024-09-24] MEDS: 0.9% Normal Saline (500mL Bag) 500 ML 999 ML IV (12:42)
--- NOTE | 2024-09-24 12:59 | PN.SURG_ITS ---
Subjective Subjective Patient is now 2 days status post tendon transfer and posterior tibial tendon and bridle procedure along with fifth metatarsal osteomyelitis resection most noted is her pain she does have low blood pressure started fluids at this point. She still in pain she has significant spasms. She states the pain is 7 out of 10 Objective Data Objective Data I spoke with her and her regarding the surgery he was very happy that were able to finally correct her since she has been dealing with this for the last 8 months with no relief at this point she has positive osteomyelitis seen on bone cultures at the same time she is status post tendon transfer will need to check her dressing tomorrow at this point I think that changing it tomorrow be best right now it is stable there is no strikethrough she would do fine just having it left in place. Continue nonweightbearing plan for [facility] facility may or may not need long-term IV antibiotics. Vital Signs: Vital Signs Temp Pulse Resp BP Pulse Ox O2 Del Method O2 Flow Rate 98 F 59 L 16 83/37 L 92 Room Air 94 09/24/24 09:22 09/24/24 11:10 09/24/24 11:07 09/24/24 11:10 09/24/24 09:22 09/24/24 11:07 09/24/24 11:07 Oxygen Flow Rate (L/min) 94 Oxygen Delivery Method Room Air Weight: 88.9 kg Body Mass Index (BMI) 30.7 Intake & Output: Intake and Output for Last 24 Hours 09/22/24 09/23/24 09/24/24 23:59 23:59 23:59 Intake Total 580 / 830 2680 / 2680 Output Total 200 / 200 1075 / 1075 700 / 700 Balance 380 / 630 1605 / 1605 -700 / -700 Lab / Micro Data 09/24/24 05:23 09/24/24 05:23 Labs: Laboratory Results - last 24 hr 09/24/24 01:42: Vancomycin Trough 22.0 H 09/24/24 05:23: WBC 8.2, RBC 3.28 L, Hgb 9.6 L, Hct 29.6 L, MCV 90.2, MCH 29.3, MCHC 32.4, RDW Std Deviation 46.5 H, RDW Coeff of Danny 14.1, Plt Count 206, MPV 10.2, Immature Gran % (Auto) 0.700, Neut % (Auto) 76.1 H, Lymph % (Auto) 10.6 L, [place] % (Auto) 8.4, Eos % (Auto) 4.1, Baso % (Auto) 0.1, Absolute Neuts (auto) 6.3, Absolute Lymphs (auto) 0.87, Nucleated RBC % 0, Sodium 132 L, Potassium 4.1, Chloride 103, Carbon Dioxide 24.0, Anion Gap 5, BUN 25 H, Creatinine 1.17 H , Estim Creat Clear Calc 40.98, Est GFR (MDRD) Af Amer 57 L, Est GFR (MDRD) Non- Af 47 L, BUN/Creatinine Ratio 21.4 H, Glucose 99, Calcium 8.2 L Micro: Microbiology 09/22/24 Unknown Bone - 5th Toe Gram Stain - Final 09/22/24 Unknown Bone - 5th Toe Wound Culture - Preliminary Staphylococcus aureus 09/18/24 15:57 Blood Culture (Wb) - Right Hand Blood Culture - Final No growth in 5 days. 09/18/24 15:57 Blood Culture (Wb) - Anticubital Left Blood Culture - Final No growth in 5 days. 09/20/24 17:57 Stool Clostridioides difficile (PCR) - Final Physical Exam Const alert, oriented x3, no apparent distress, average body habitus, no limitations, healthy appearing and well nourished HEENT normocephalic, head/scalp atraumatic, hearing grossly normal bilaterally, external ears normal, EAC's normal, TM's normal bilaterally, external nose normal, nasal mucous membranes and turbinates normal, moist oral mucous membranes, oropharynx normal, dentition normal and gingiva normal Eyes PERRL, EOMs intact bilaterally, conjunctivae normal, no scleral icterus, no papilledema, normal visual barnes by confrontation and fundi normal bilaterally Neck full ROM, nuchal rigidity, no lymphadenopathy, supple, no meningeal signs, no JVD, thyroid normal, nodes and no carotid bruits Chest inspection of chest normal, palpation of chest normal, inspection of breasts normal and palpation of breasts normal Resp normal respiratory effort, normal air movement, no retractions, no use of accessory muscles, clear to auscultation bilaterally and percussion normal Cardio regular rate, regular rhythm, S1 normal heart sound, S2 normal heart sound, no murmurs, no rub, no gallops, no clicks, no JVD, peripheral pulses 2+ throughout and diaphoretic no CVA tenderness, external exam normal, appearance of the vagina normal, appearance of the cervix normal, bimanual exam normal, adnexae non-tender and no adnexal masses Extremity Extremity Narrative: Dressings intact the foot is at 90 degrees the splint is intact recommend changing tomorrow. Will get films. Assessment & Plan Assessment/Plan (1) Osteomyelitis: (2) Cavovarus deformity of foot, acquired: PLAN: Patient in pain hopefully it resolves as the day goes on and hopefully she will continue to get better with treatment I believe she will have minimal problems in a few days. Plan for [facility] facility will change dressing over the weekend. (3) Chronic wound: (4) Cellulitis of right lower extremity:
--- NOTE | 2024-09-24 13:24 | CASEMGMT ---
Addendum entered by Anita Serrano 09/24/24 14:30: Social Work- SW received precert. [id number] 09/24-09/26. DCA notified. KALLI Walker Original Note: Social Work- SW received notice of acceptance at [facility]. GEORGES submitted for precert with [facility] in the event that pt would become medically ready over the weekend. GEORGES remains available to follow. KALLI Walker
--- NOTE | 2024-09-24 13:52 | CASEMGMT ---
Discharge Planning [facility] aware that pt may be ready for discharge over the weekend. Phone and fax received and green sheet given to GEORGES. Cheyenne Denson DC Planning Asst.
[2024-09-24 14:10] LABS: Vancomycin, Random Level 16.1 ug/mL (0.0-15.0)
--- NOTE | 2024-09-24 14:22 | PCM.RX.CS ---
Consult Antibiotic Management Pharmacy has been consulted to manage selected antibiotic: Vancomycin Type of Intervention Type of Consult: Follow-up Prior Doses of Antibiotics Prior Doses of Antibiotics Received/Current Regimen: the most recent dose was vanc 750mg IV q12h until it was held due to a high trough Labs Labs: Sodium 132 mmol/L (136-145) L 09/24/24 05:23 Potassium 4.1 mmol/L (3.5-5.1) 09/24/24 05:23 Chloride 103 mmol/L (98-107) 09/24/24 05:23 Carbon Dioxide 24.0 mmol/L (21.0-32.0) 09/24/24 05:23 Anion Gap 5 (5-15) 09/24/24 05:23 BUN 25 mg/dL (7-18) H 09/24/24 05:23 Creatinine 1.17 mg/dL (0.55-1.02) H 09/24/24 05:23 Est GFR (MDRD) Af Amer 57 mL/min (>60) L 09/24/24 05:23 Est GFR (MDRD) Non-Af 47 mL/min (>60) L 09/24/24 05:23 BUN/Creatinine Ratio 21.4 RATIO (10-20) H 09/24/24 05:23 Glucose 99 mg/dL (74-106) 09/24/24 05:23 Vancomycin Trough 22.0 ug/mL (5.0-15.0) H 09/24/24 01:42 Random Vancomycin 16.1 ug/mL (0.0-15.0) H 09/24/24 13:25 Microbiology Microbiology: Microbiology 09/22/24 Unknown Bone - 5th Toe Gram Stain - Final 09/22/24 Unknown Bone - 5th Toe Wound Culture - Preliminary Staphylococcus aureus 09/18/24 15:57 Blood Culture (Wb) - Right Hand Blood Culture - Final No growth in 5 days. 09/18/24 15:57 Blood Culture (Wb) - Anticubital Left Blood Culture - Final No growth in 5 days. 09/20/24 17:57 Stool Clostridioides difficile (PCR) - Final Dosing Weight Weight used for dosin.9 kg Estimated Creatinine Clearance Estimated Creatinine Clearance: 41 ml/min Goal Trough Goal Trough: 15-20 mcg/mL Pharmacy Plan for Drug Dosing Pharmacy Plan for Drug Dosing: The vanc random level drawn at 13:25 today (approx 23 hours after the last dose of 750mg) was 16.1. This is back below 20 so will resume dosing at a newly calculated dose of 1000mg q24h. Check a trough before the 3rd dose. Of note, the patient's SCr increased to 1.17 today from 0.79 yesterday so recommend dosing with the 24-hr frequency. Will need to monitor renal function. Pharmacy Service will continue to monitor and adjust dosing as required. Follow-Up Labs Follow-Up Labs: Trough: Vancomycin Date/Time Labs Ordered Labs to be done on [date and time ordered]: 09/26/24 14:30
[2024-09-24] MEDS: 0.9% Normal Saline (1000mL) 1,000 ML 125 ML IV ×2 (14:45→22:48)
[2024-09-24] MEDS: Vancomycin IV 1,000 MG/200 ML BAG 200 MG IV (16:20)
--- NOTE | 2024-09-24 16:50 | OP.PCM_ITS ---
Problems Associated Problem List Diagnoses (1) Cavovarus deformity of foot, acquired: (2) Chronic wound: (3) Osteomyelitis: Operative Report (Standard) Operative Information Date of Procedure: 09/22/24 Pre-Operative Diagnosis: 1. Severe cavovarus foot type 2. Osteomyelitis fifth metatarsal right foot 3. 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 Foot drop right lower leg Post-Operative Diagnosis: Same as above Surgery/Procedure Performed: 1. Posterior tibial tendon transfer, peroneal tendon transfer equaling the bridle procedure 2. Open tendo Achilles lengthening right lower leg 3. Incision and drainage bone cortex fifth metatarsal 4. Ulceration wound debridement right foot 1 cm x 1 cm x 0.2 cm roll tube setter: No Type of Anesthesia: General/Regional and General/Supplemental RN Documented Start/Stop Times: Operation Date: 09/22/24 16:30 Case Time Into Pre-Op 09/22/24 15:37 Anesthesia Start 09/22/24 20:00 Into Room 09/22/24 20:00 Procedure Start 09/22/24 20:23 Procedure End 09/22/24 22:35 Anesthesia End 09/22/24 22:40 Out of Room 09/22/24 22:40 Into Recovery 09/22/24 22:43 Out of Recovery 09/22/24 23:33 Procedure Start Time: 20:23 Procedure Stop Time: 22:35 Select all DRAINS/GRAFTS/IMPLANTS that apply: None and Implanted device Implanted device details: [place] Cit[employer] anchor 8 mm Estimated Blood Loss: 20 cc Specimen collected: Yes Description of specimen(s) removed: Fifth metatarsal bone fragments Description of surgery: This patient was seen as a consult at [facility] in which the patient has had a nonhealing ulceration on the plantar surface of her right foot for greater than 5 months. The patient has a a nonhealing wound and the severe deformity of her right lower leg ever since she fell on her face and her leg has become contracted and inward forming. She does see a foot doctor down in [place] in which they were treating her conservatively with orthotics, a brace never fit her properly as she could not control this foot she continues to rolled her foot inward the constantly breaks down subfifth metatarsal with a nonhealing wound. The patient has never had healing of this for the last 8 months. I do think the patient does have osteomyelitis as her MRI confirms this but not only for the treatment of this but also the treatment of the deformity as I can make her foot better. The patient was seen in the preoperative holding area chart reviewed and consent was signed. The patient was then taken back to the operating room placed the operative table in normal supine position general anesthetic was then obtained a local block of quarter percent Marcaine plain was injected about the right ankle and the lower leg. It was then scrubbed prepped and draped in usual aseptic technique. Attention is then directed to the right lower leg in which gravity same and it was applied and tourniquet was inflated to 250 mL regrew about the right thigh. Timeout was then performed at that point a 4 cm later Just incision was made well and lateral aspect of the fifth metatarsal and the fifth metatarsal phalangeal joint it was incised down to including subcutaneous tissue by releasing the periosteum it was then noted the bone had severe cystic defects as well as large amounts of infected bone at this point then using a sterile curette I incised and drained the entire fifth metatarsal heads in the shaft removing all necrotic devitalized tissue and bone I sent it off for culture and sensitivity I flushed the wound with copious amounts normal sterile saline. I took a sagittal saw and cut the distal aspect of the bone of the fifth metatarsal took a sample flush the area with 3-0 Vicryl Next month this was closed we then used 3-0 Prolene and she tolerated this procedure well. The ulceration measured 1 cm x 1 cm x 0.2 was then excisionally debrided into including subcutaneous tissue using a 15 blade and we padded the area Tensions undirected to the medial aspect of the posterior tibial tendon insertion we then made 6 incisions consisting of all areas where we did the tendon transfer the first incision was between the medial malleolus and navicular tuberosity we then incised down to including subcutaneous tissue we found the tendon sheath for the posterior tibial tendon I disarticulated and removed it from the posterior tibial insertion of the navicular the plantar attachments were released as well. Once the tendon was then visualized I then whipstitched it or made a pulling suture with it in order to pull it through the next transfer The next incision was also a 4 cm linear latched incision was made just at the posterior medial aspect of the tibia just medial to it was incised down to including subcutaneous tissue again this sheath was then opened the flexor tendons and the posterior tibial tendon were then visualized the posterior tibial tendon was then pulled pulled up through this incision and the posterior tibial tendon was now up through the medial side of the leg. Next incision was in anterior lower leg incision that measured a little bit larger 6 cm linear lysed incision just lateral to the anterior tibialis tendon on the tibia and proximal to the extensor retinaculum the incision was deepened directly down to subcutaneous tissue with care being taken to identify and retract all vital neurovascular structures all liters recauterize and light associated. At that point then a incision was then made to move the anterior tibial tendon medially the neurovascular bundle laterally and then I punctured through the syndesmosis after puncture into the syndesmosis I then used a large Nicole hemostat to go behind the tibia and was able to pull the posterior tibial tendon from medial to posterior and now in a different phase of gait of the tendon I then inserted a Hewson suture passer pulled the tendon and the suture from posterior medial to anterior direction the incisions were then closed along the medial side using 3-0 Vicryl and chris. At that point then I made another incision 10 cm on the lateral side of the lower leg 10 cm above the fibula and a problem approximately 4 cm down to including subcutaneous tissue found the peroneus longus tendon which came into view I cut it and transected it. The patient had severe peroneal neuropathy and I did not have to perform a stop procedure. At this point then the tendon was then noted to be free I loosened everything so we could pull it distally. Next a lateral incision approximately 4 cm was made just in between the fibula and the fifth metatarsal tuberosity where the peroneus brevis is. At this point the incision was deepened recommend and subcutaneous tissue the brevis tendon was then visualized it was very tiny as the patient has not used a brevis tendon in a long time as she has no strength. At that point then we we dove into deep found peroneus longus we then pulled the tendon from proximal to distal along with a stitch or a whipstitch on the tendon at that point then I made an incision through the brevis tendon I pulled the peroneus longus through the brevis to create valgus tension I then buried the peroneus longus tendon up through the soft tissue and subcutaneous tissue through the retinaculum and again meeting up with my anterior incision I ran this tendon all the way with a Nicole hemostat and now I had all 3 tendons in the center portion of the anterior tibial incision The lateral incisions were then again flushed and closed with 3-0 Vicryl and chris. Next at this point then the last incision was made on the dorsal aspect of the second intercuneiform joint which she was right on the second tarsometatarsal joint a 4 cm linear lysed incision was made down into including subcutaneous tissue the bone was then visualized I then made a drill hole and sized the tendon using an 8 mm size. I did have to remove a large portion of the tendon to get it fitted and there but most noted at this point that because the patient's severe contracture of her posterior compartment I needed to do a tendo Achilles lengthening. Attention is then directed the posterior aspect of the Achilles tendon which I made a 3 cm incision I then made 2 frontal plane lengthening cuts along the medial and lateral sides of the tendon but directly in the posterior compartment and made an L-shaped and then a center down the tendon and then pulled the foot dorsally as much as possible and there was a great stretch. At that point the tendon had been stretched or lengthen and then I closed it with 0 Ethibond for the tendon and then the skin with 3-0 Vicryl and chris again. Now the patient had enough range of motion for me to dorsiflex the foot I then was able to pass the posterior tendon through the anterior tib as well as the peroneus longus as these with the static arms. I pulled it directly through th us creating a very tight binding between the tendons I then sutured them together using 1-0 Ethibond. And then I buried the posterior tibial tendon into the second cuneiform using mini fluoroscopy I drilled to the pull-through technique I pulled the tendon through the bottom of the foot through and the anchor there was excellent compression of the tibia into the second cuneiform and the posterior tibial tendon transfer was complete lastly I then cut a portion of the peroneus longus tendon I performed a bridle procedure in which I sewed together the posterior tib, anterior tib, and peroneus longus tendons together using 0 Ethibond in a vertical mattress and tendon suture technique. The area was then dressed today with Xeroform dry dressing understand the patient had all incisions closed at this point the foot was dorsiflexed at this point was now brace able the tendon was strong I closed all the incisions I placed her in a multilayer posterior splint compression bandage. She tolerated seizure well without complications we will follow-up with her in the next few days hopefully get her into physical therapy in a [place] [facility] facility Surgical Findings: Soft osteomyelitic bone fifth metatarsal Severe contracture right ankle and lower leg Complications Complications: No Admit VTE Documentation VTE Present on Admission: Yes VTE Mechan Device Prophylaxis: SCD's
[2024-09-24] MEDS: Atorvastatin Calcium 20 MG Tablet PO (21:23)
[2024-09-24] MEDS: Paroxetine 20 MG Tablet PO (21:23)
[2024-09-25 02:11] VITALS: BP 100/37; PULSE 60; RESP 15; TEMP 37.4; O2SAT 96
[2024-09-25] MEDS: metroNIDAZOLE 500 MG Tablet PO ×3 (05:16→23:48)
[2024-09-25 05:20] VITALS: BP 100/44; RESP 15; TEMP 37.6; O2SAT 95
[2024-09-25] MEDS: Acetaminophen 500 MG Tablet 1000 MG PO ×3 (06:22→23:47)
[2024-09-25 06:52] LABS: Absolute Lymphocyte Count 0.94 X10^3/uL (0.83-4.51); Absolute Neutrophil Count 5.2 X10^3/uL (2.0-7.7); Basophil# 0.01 X10^3/uL; Basophil% 0.1 % (0-1); Eosinophil# 0.58 X10^3/uL; Eosinophils% 7.9 % (0-5); Hematocrit 25.9 % (37-47); Hemoglobin 8.3 g/dL (12.0-15.0); Lymphocyte # 0.94 X10^3/ul (0.83-4.51); Lymphocyte % 12.8 % (19-41); Mean Corpuscular Hgb 28.9 pg (27.0-32.0); Mean Corpuscular Volume 90.2 fL (81-99); Mean Platelet Vol. 10.8 fl (6.2-12.0); Monocyte# 0.55 X10^3/uL; Monocyte% 7.5 % (0-10); NRBC Flagged by Analyzer 0 % (0-5); Neutrophil # 5.21 X10^3/uL (2.7-7.7); Neutrophil % 71.2 % (47-70); Platelet Count 182 K/mm3 (150-450); RBC Distribution Width CV 14.2 % (11.6-14.6); RBC Distribution Width SD 46.5 fl (35.1-43.9); Red Blood Count 2.87 M/mm3 (4.2-5.4); White Blood Count 7.3 K/mm3 (4.4-11.0)
[2024-09-25 07:11] LABS: Anion Gap 6 (5-15); BUN 24 mg/dL (7-18); BUN/Creat Ratio 27.9 RATIO (10-20); Calcium,Total 7.9 mg/dL (8.5-10.1); Chloride 107 mmol/L (98-107); Creatinine, Serum 0.86 mg/dL (0.55-1.02); EST Glomerular Filtration Rate 67 mL/min (>60); Est Glom Filt Rate - Afr Amer 81 mL/min (>60); Estimated Creatinine Clearance 55.75 ml/min; Glucose 96 mg/dL (74-106); Potassium 3.8 mmol/L (3.5-5.1); Sodium Level 134 mmol/L (136-145)
[2024-09-25 08:31] VITALS: BP 119/57; PULSE 66; RESP 18; TEMP 36.7; O2SAT 98
[2024-09-25] MEDS: Nystatin Powder 15gm Bottle 1 APPLIC TOPICAL ×2 (08:42→23:48)
[2024-09-25] MEDS: Enoxaparin 40 MG/0.4 ML Syringe SC (08:43)
[2024-09-25] MEDS: Menthol/Lanolin/Calamine/Znox 113 GM Tube 1 APPLIC TOPICAL (08:48)
[2024-09-25] MEDS: Ceftriaxone 2 GM in 0.9% Normal Saline (50mL MB+) 50 ML IV (08:49)
[2024-09-25] MEDS: Aspirin E.C. 81 MG Tablet PO (08:49)
[2024-09-25] MEDS: Ensure Plus High Protein 120 ML LIQUID PO ×3 (08:51→15:31)
[2024-09-25] MEDS: cycloBENZAPRine HCl 5 MG TABLET PO (08:52)
--- NOTE | 2024-09-25 09:28 | PN.SURG_ITS ---
Subjective Subjective Patient is now postop day #3 status post bridle procedure, posterior tibial tendon transfer and peroneal tendon transfer patient is seen sitting up having breakfast she has been getting up and moving she did have slight strikethrough on the lateral side of her foot she still having spasms but feels almost 70% better than she did 2 days ago she actually feels more lucid today. Denies nausea vomiting chills or fever. Still has spasms and calf pain unable to bend her leg to full 180 degrees. Objective Data Objective Data Right lower leg dressing changed today. On exam today the right lower leg does have a dressing that was changed today the wound is already starting to improve the foot is at 90 degrees still has contracted toes which could be from guarding at this point. The patient will need to learn full weightbearing activities again I cannot member if her toes were contracted previously. But they might be contracted postsurgery as it may still need to get used to how the tendons feel. Right lower leg sutures intact and chris in all areas Xeroform was left in place there was only strikethrough on the lateral peroneal tendon incision. Otherwise the rest the incisions look great her calf feels slightly better than it did before though it still very tight and sore unable to get her knee back to a full 180 degrees which I know is just due to the tightness in the back of her calf she will need physical therapy at some point. Today no signs of DVT at this point though that will need to be monitored. Dressing changed today posterior splint was reapplied continue with physical therapy follow-up outpatient. Vital Signs: Vital Signs Temp Pulse Resp BP Pulse Ox O2 Del Method O2 Flow Rate 98.0 F 66 18 119/57 L 98 Nasal Cannula 2 09/25/24 08:31 09/25/24 08:31 09/25/24 08:31 09/25/24 08:31 09/25/24 08:31 09/25/24 08:31 09/25/24 08:31 Oxygen Flow Rate (L/min) 2 Oxygen Delivery Method Nasal Cannula Weight: 88.9 kg Body Mass Index (BMI) 30.7 Intake & Output: Intake and Output for Last 24 Hours 09/23/24 09/24/24 09/25/24 23:59 23:59 23:59 Intake Total 2680 / 2680 3650 / 3650 1000 / 1000 Output Total 1075 / 1075 1000 / 1600 600 / 600 Balance 1605 / 1605 2650 / 2050 400 / 400 Lab / Micro Data 09/25/24 05:31 09/25/24 05:31 Labs: Laboratory Results - last 24 hr 09/24/24 13:25: Random Vancomycin 16.1 H 09/25/24 05:31: WBC 7.3, RBC 2.87 L, Hgb 8.3 L, Hct 25.9 L, MCV 90.2, MCH 28.9, MCHC 32.0, RDW Std Deviation 46.5 H, RDW Coeff of Danny 14.2, Plt Count 182, MPV 10.8, Immature Gran % (Auto) 0.500, Neut % (Auto) 71.2 H, Lymph % (Auto) 12.8 L, [place] % (Auto) 7.5, Eos % (Auto) 7.9 H, Baso % (Auto) 0.1, Absolute Neuts (auto) 5.2, Absolute Lymphs (auto) 0.94, Nucleated RBC % 0, Sodium 134 L, Potassium 3.8, Chloride 107, Carbon Dioxide 21.0, Anion Gap 6, BUN 24 H, Creatinine 0.86, Estim Creat Clear Calc 55.75, Est GFR (MDRD) Af Amer 81, Est GFR (MDRD) Non-Af 67, BUN/Creatinine Ratio 27.9 H, Glucose 96, Calcium 7.9 L Micro: Microbiology 09/22/24 Unknown Bone - 5th Toe Gram Stain - Final 09/22/24 Unknown Bone - 5th Toe Wound Culture - Preliminary Staphylococcus aureus 09/18/24 15:57 Blood Culture (Wb) - Right Hand Blood Culture - Final No growth in 5 days. 09/18/24 15:57 Blood Culture (Wb) - Anticubital Left Blood Culture - Final No growth in 5 days. 09/20/24 17:57 Stool Clostridioides difficile (PCR) - Final Physical Exam Const alert, oriented x3, no apparent distress, average body habitus, no limitations, healthy appearing and well nourished HEENT normocephalic, head/scalp atraumatic, hearing grossly normal bilaterally, external ears normal, EAC's normal, TM's normal bilaterally, external nose normal, nasal mucous membranes and turbinates normal, moist oral mucous membranes, oropharynx normal, dentition normal and gingiva normal Eyes PERRL, EOMs intact bilaterally, conjunctivae normal, no scleral icterus, no papilledema, normal visual barnes by confrontation and fundi normal bilaterally Chest inspection of chest normal, palpation of chest normal, inspection of breasts normal and palpation of breasts normal Resp normal respiratory effort, normal air movement, no retractions, no use of accessory muscles, clear to auscultation bilaterally and percussion normal Cardio regular rate, regular rhythm, S1 normal heart sound, S2 normal heart sound, no murmurs, no rub, no gallops, no clicks, no JVD, peripheral pulses 2+ throughout and diaphoretic GI normal to inspection, nondistended, normoactive bowel sounds, soft to palpation, non-tender, non-distended, hepatosplenomegaly, no masses and no bruits Extremity Extremity Narrative: Right lower leg dressing changed today seems to be in good position the foot is at 90 degrees. Slightly varus slightly but still definitively better than it was before. Assessment & Plan Assessment/Plan (1) Osteomyelitis: PLAN: Status post being on antibiotics thus far positive bone cultures (2) Cavovarus deformity of foot, acquired: PLAN: Varus has been corrected the foot is now rectus fashion with slight contracture and pulling of the toes. (3) Chronic wound: PLAN: Nonhealing wound overall getting better (4) Cellulitis of right lower extremity: PLAN: Plan Splint and dressing changed today does not need any further dressing changes continue to monitor her pain physical therapy follow-up then
--- NOTE | 2024-09-25 10:56 | PN_ITS ---
Subjective Subjective Patient seen and examined. She complained of spasms in her right lower extremity. She had no other complaints. REview of systems is otherwise negative. Objective Data Objective Data Vital Signs: Vital Signs Temp Pulse Resp BP Pulse Ox O2 Del Method O2 Flow Rate 98.0 F 66 18 119/57 L 98 Nasal Cannula 2 09/25/24 08:31 09/25/24 08:31 09/25/24 08:31 09/25/24 08:31 09/25/24 08:31 09/25/24 08:31 09/25/24 08:31 Oxygen Flow Rate (L/min) 2 Oxygen Delivery Method Nasal Cannula Weight: 195 lb 15.855 oz Body Mass Index (BMI) 30.7 Intake & Output: Intake and Output for Last 24 Hours 09/23/24 09/24/24 09/25/24 23:59 23:59 23:59 Intake Total 2680 / 2680 3650 / 3650 2050 / 2050 Output Total 1075 / 1075 1000 / 1600 600 / 600 Balance 1605 / 1605 2650 / 2050 1450 / 1450 Lab / Micro Data 09/25/24 05:31 09/25/24 05:31 Labs: Laboratory Results - last 24 hr 09/24/24 13:25: Random Vancomycin 16.1 H 09/25/24 05:31: WBC 7.3, RBC 2.87 L, Hgb 8.3 L, Hct 25.9 L, MCV 90.2, MCH 28.9, MCHC 32.0, RDW Std Deviation 46.5 H, RDW Coeff of Danny 14.2, Plt Count 182, MPV 10.8, Immature Gran % (Auto) 0.500, Neut % (Auto) 71.2 H, Lymph % (Auto) 12.8 L, [place] % (Auto) 7.5, Eos % (Auto) 7.9 H, Baso % (Auto) 0.1, Absolute Neuts (auto) 5.2, Absolute Lymphs (auto) 0.94, Nucleated RBC % 0, Sodium 134 L, Potassium 3.8, Chloride 107, Carbon Dioxide 21.0, Anion Gap 6, BUN 24 H, Creatinine 0.86, Estim Creat Clear Calc 55.75, Est GFR (MDRD) Af Amer 81, Est GFR (MDRD) Non-Af 67, BUN/Creatinine Ratio 27.9 H, Glucose 96, Calcium 7.9 L Micro: Microbiology 09/22/24 Unknown Bone - 5th Toe Gram Stain - Final 09/22/24 Unknown Bone - 5th Toe Wound Culture - Preliminary Staphylococcus aureus 09/18/24 15:57 Blood Culture (Wb) - Right Hand Blood Culture - Final No growth in 5 days. 09/18/24 15:57 Blood Culture (Wb) - Anticubital Left Blood Culture - Final No growth in 5 days. 09/20/24 17:57 Stool Clostridioides difficile (PCR) - Final Physical Exam Const alert, oriented x3, no apparent distress and well nourished General Appearance: cooperative and well developed HEENT normocephalic, head/scalp atraumatic and moist oral mucous membranes Eyes PERRL and EOMs intact bilaterally Neck no lymphadenopathy, supple and no JVD Lymph Lymphatic: no lymphadenopathy noted and no lymphedema noted Resp normal respiratory effort, normal air movement, no retractions and clear to auscultation bilaterally Cardio regular rate, regular rhythm, S1 normal heart sound, S2 normal heart sound and no murmurs GI normal to inspection, nondistended, normoactive bowel sounds, soft to palpation, non-tender and non-distended Extremity Extremity Narrative: right foot wrapped in bandage Skin Skin Narrative: as under extremities Neuro oriented x3, CN's II-XII intact bilaterally, no focal motor deficits and no sensory deficits noted Motor Exam: strength 5/5 throughout and general weakness Psych thought process normal, cooperative and affect normal Appearance: appropriate Assessment & Plan Assessment/Plan (1) Cellulitis of right lower extremity: (2) Chronic wound: PLAN: Plan #right foot osteeomyelitis * Failed outpatient therapy. Was treated with p.o. doxycycline on outpatient basis but failed therapy. * On IV vancomycin and clindamycin. Podiatry on board. * MRI of the foot ordered per podiatry showed marrow edema of the fifth metatarsus and the proximal phalanx of the fifth toe suggesting osteomyelitis and subcutaneous edema more significant laterally. * had bedside I&D done during this admission. * PT OT on board. Fall precautions. * Right foot x-ray showed diffusely demineralized bones with degenerative changes and diffuse soft tissue swelling with round radiolucent projection over the soft tissues lateral to the fifth MTP joint likely reflecting reported wound but cannot exclude subcutaneous and a gas producing organism * had surgery on her foot on 09/24/2024 * wound cultures growing Staph aureus. * ID on board. On vancomycin, ceftriaxone and Flagyl. * #Hypotension * resolved after hyrdation with IVF * * #Anemia: * Hb is 8.3 today. Was 9.6 yesterday. * Baseline is between 9 and 10. * May be due to hemodilution from IV fluids yesterday. * Will monitor closely. * #Diarrhea * has resolved. C Diff was negative * on loperamide * #History of depression: On paroxetine #Hypertension: * On amlodipine and lisinopril. * IV hydralazine as needed. * Hold amlodipine and lisinopril due to hypotension. #CHARLENE: On CPAP nightly # Hyperlipidemia: On statin DVT prophylaxis: Lovenox CODE STATUS: * full code * Disposition: awaiting placement Charges/Coding Visit Charges Inpatient E&M: 28141 Subs Hosp L2
[2024-09-25] MEDS: oxyCODONE 5 MG Tablet PO ×2 (11:14→20:32)
[2024-09-25 11:32] VITALS: O2SAT 99
[2024-09-25] MEDS: Vancomycin IV 1,000 MG/200 ML BAG 200 MG IV (15:36)
[2024-09-25] MEDS: 0.9% Saline Lock 10 ML Syringe IV (15:37)
[2024-09-25 15:41] VITALS: BP 123/42; PULSE 65; RESP 16; TEMP 36.8; O2SAT 94
[2024-09-25 21:00] VITALS: BP 124/58; PULSE 62; RESP 16; TEMP 36.7; O2SAT 98
[2024-09-25] MEDS: Paroxetine 20 MG Tablet PO (23:48)
[2024-09-25] MEDS: Atorvastatin Calcium 20 MG Tablet PO (23:48)
[2024-09-26] MEDS: Menthol/Lanolin/Calamine/Znox 113 GM Tube 1 APPLIC TOPICAL ×3 (00:39→21:49)
[2024-09-26 03:15] VITALS: BP 120/62; PULSE 60; RESP 16; TEMP 37.1; O2SAT 96
[2024-09-26] MEDS: metroNIDAZOLE 500 MG Tablet PO (05:59)
[2024-09-26 06:04] LABS: Absolute Lymphocyte Count 1.68 X10^3/uL (0.83-4.51); Absolute Neutrophil Count 5.2 X10^3/uL (2.0-7.7); Basophil# 0.02 X10^3/uL; Basophil% 0.2 % (0-1); Eosinophil# 0.63 X10^3/uL; Eosinophils% 7.7 % (0-5); Hematocrit 25.7 % (37-47); Hemoglobin 8.6 g/dL (12.0-15.0); Lymphocyte # 1.68 X10^3/ul (0.83-4.51); Lymphocyte % 20.6 % (19-41); Mean Corp Hgb Conc 33.5 g/dL (32-36); Mean Corpuscular Hgb 30.4 pg (27.0-32.0); Mean Corpuscular Volume 90.8 fL (81-99); Mean Platelet Vol. 10.9 fl (6.2-12.0); Monocyte# 0.64 X10^3/uL; Monocyte% 7.8 % (0-10); NRBC Flagged by Analyzer 0 % (0-5); Neutrophil # 5.15 X10^3/uL (2.7-7.7); Neutrophil % 63.1 % (47-70); Platelet Count 191 K/mm3 (150-450); RBC Distribution Width CV 14.4 % (11.6-14.6); Red Blood Count 2.83 M/mm3 (4.2-5.4); White Blood Count 8.2 K/mm3 (4.4-11.0)
[2024-09-26 06:53] LABS: Anion Gap 8 (5-15); BUN 19 mg/dL (7-18); BUN/Creat Ratio 26.3 RATIO (10-20); Calcium,Total 8.2 mg/dL (8.5-10.1); Chloride 106 mmol/L (98-107); Creatinine, Serum 0.72 mg/dL (0.55-1.02); EST Glomerular Filtration Rate 82 mL/min (>60); Est Glom Filt Rate - Afr Amer 99 mL/min (>60); Estimated Creatinine Clearance 59.93 ml/min; Glucose 91 mg/dL (74-106); Potassium 3.9 mmol/L (3.5-5.1); Sodium Level 137 mmol/L (136-145)
[2024-09-26 08:27] VITALS: BP 133/58; PULSE 65; RESP 17; TEMP 36.9; O2SAT 94
[2024-09-26] MEDS: Ensure Plus High Protein 120 ML LIQUID PO ×3 (08:39→16:26)
[2024-09-26] MEDS: Ceftriaxone 2 GM in 0.9% Normal Saline (50mL MB+) 50 ML IV (08:40)
[2024-09-26] MEDS: Enoxaparin 40 MG/0.4 ML Syringe SC (08:41)
[2024-09-26] MEDS: Nystatin Powder 15gm Bottle 1 APPLIC TOPICAL ×2 (08:41→21:50)
[2024-09-26] MEDS: Aspirin E.C. 81 MG Tablet PO (08:42)
[2024-09-26] MEDS: Acetaminophen 500 MG Tablet 1000 MG PO (10:15)
[2024-09-26] MEDS: cycloBENZAPRine HCl 5 MG TABLET PO ×2 (10:16→21:51)
--- NOTE | 2024-09-26 13:49 | PCM.PROGNOTE ---
Subjective Subjective Paitent seen adn examined. She complains of a rash on her lower extremities. It was on her back and has now extended to her lower extremities. Objective Data Objective Data Vital Signs: Vital Signs Temp Pulse Resp BP Pulse Ox O2 Del Method O2 Flow Rate 98.4 F 65 17 133/58 H 94 Room Air 2 09/26/24 08:27 09/26/24 08:27 09/26/24 08:27 09/26/24 08:27 09/26/24 08:27 09/26/24 11:35 09/26/24 03:15 Oxygen Flow Rate (L/min) 2 Oxygen Delivery Method Room Air Weight: 195 lb 15.855 oz Body Mass Index (BMI) 30.7 Intake & Output: Intake and Output for Last 24 Hours 09/24/24 09/25/24 09/26/24 23:59 23:59 23:59 Intake Total 3650 / 3650 2850 / 3100 600 / 600 Output Total 1000 / 1600 1900 / 3100 1600 / 1600 Balance 2650 / 2050 950 / 0 -1000 / -1000 Lab / Micro Data 09/26/24 05:28 09/26/24 05:28 Labs: Laboratory Results - last 24 hr 09/26/24 05:28: WBC 8.2, RBC 2.83 L, Hgb 8.6 L, Hct 25.7 L, MCV 90.8, MCH 30.4, MCHC 33.5, RDW Std Deviation 48.0 H, RDW Coeff of Danny 14.4, Plt Count 191, MPV 10.9, Immature Gran % (Auto) 0.600, Neut % (Auto) 63.1, Lymph % (Auto) 20.6, [place] % (Auto) 7.8, Eos % (Auto) 7.7 H, Baso % (Auto) 0.2, Absolute Neuts (auto) 5.2, Absolute Lymphs (auto) 1.68, Nucleated RBC % 0, Sodium 137, Potassium 3.9, Chloride 106, Carbon Dioxide 22.0, Anion Gap 8, BUN 19 H, Creatinine 0.72, Estim Creat Clear Calc 59.93, Est GFR (MDRD) Af Amer 99, Est GFR (MDRD) Non-Af 82, BUN/Creatinine Ratio 26.3 H, Glucose 91, Calcium 8.2 L Micro: Microbiology 09/22/24 Unknown Bone - 5th Toe Gram Stain - Final 09/22/24 Unknown Bone - 5th Toe Wound Culture - Final Staphylococcus aureus 09/22/24 Unknown Bone - 5th Toe Anaerobic Culture - Preliminary Checking for anaerobes, further studies to follow. 09/18/24 15:57 Blood Culture (Wb) - Right Hand Blood Culture - Final No growth in 5 days. 09/18/24 15:57 Blood Culture (Wb) - Anticubital Left Blood Culture - Final No growth in 5 days. 09/20/24 17:57 Stool Clostridioides difficile (PCR) - Final Physical Exam Const alert, oriented x3, no apparent distress and well nourished General Appearance: cooperative and well developed HEENT normocephalic, head/scalp atraumatic and moist oral mucous membranes Eyes PERRL and EOMs intact bilaterally Neck no lymphadenopathy, supple and no JVD Lymph Lymphatic: no lymphadenopathy noted and no lymphedema noted Resp normal respiratory effort, normal air movement, no retractions and clear to auscultation bilaterally Cardio regular rate, regular rhythm, S1 normal heart sound, S2 normal heart sound and no murmurs GI normal to inspection, nondistended, normoactive bowel sounds, soft to palpation, non-tender and non-distended Extremity Extremity Narrative: right foot wrapped in bandage Skin Skin Narrative: as under extremities. Erythematous papular rash over LLE and back. Nonpruritic Neuro oriented x3, CN's II-XII intact bilaterally, no focal motor deficits and no sensory deficits noted Motor Exam: strength 5/5 throughout and general weakness Psych thought process normal, cooperative and affect normal Appearance: appropriate Assessment & Plan Assessment/Plan (1) Cellulitis of right lower extremity: (2) Chronic wound: PLAN: Plan #right foot osteeomyelitis Failed outpatient therapy. Was treated with p.o. doxycycline on outpatient basis but failed therapy. On IV vancomycin and clindamycin. Podiatry on board. MRI of the foot ordered per podiatry showed marrow edema of the fifth metatarsus and the proximal phalanx of the fifth toe suggesting osteomyelitis and subcutaneous edema more significant laterally. had bedside I&D done during this admission. PT OT on board. Fall precautions. Right foot x-ray showed diffusely demineralized bones with degenerative changes and diffuse soft tissue swelling with round radiolucent projection over the soft tissues lateral to the fifth MTP joint likely reflecting reported wound but cannot exclude subcutaneous and a gas producing organism had surgery on her foot on 09/24/2024 wound cultures growing Staph aureus. ID on board. On vancomycin, ceftriaxone and Flagyl. Discussed with ID today. Am concerned that this rash that she has developed may be due to an antibiotic reaction. Per discussion with ID, will stop ceftriaxone and metronidazole and continue vancomycin #Hypotension resolved #Anemia: Hb is 8.6 today. Baseline is between 9 and 10. Will monitor closely. #Diarrhea has resolved. C Diff was negative on loperamide #History of depression: On paroxetine #Hypertension: On amlodipine and lisinopril. IV hydralazine as needed. Hold amlodipine and lisinopril due to hypotension. #CHARLENE: On CPAP nightly # Hyperlipidemia: On statin DVT prophylaxis: Lovenox CODE STATUS: full code Disposition: awaiting placement Charges/Coding Visit Charges Inpatient E&M: 40255 Subs Hosp L2
[2024-09-26 15:10] LABS: Vancomycin, Trough Level 11.7 ug/mL (5.0-15.0)
--- NOTE | 2024-09-26 15:18 | PCM.RX.CS ---
Consult Antibiotic Management Pharmacy has been consulted to manage selected antibiotic: Vancomycin Type of Intervention Type of Consult: Follow-up Suspected Infection Suspected Infection: Skin/Soft tissue Prior Doses of Antibiotics Prior Doses of Antibiotics Received/Current Regimen: Vancomycin 1000 mg Q24H last dose given 09/25/24 @ 1536 Labs Labs: Sodium 137 mmol/L (136-145) 09/26/24 05:28 Potassium 3.9 mmol/L (3.5-5.1) 09/26/24 05:28 Chloride 106 mmol/L (98-107) 09/26/24 05:28 Carbon Dioxide 22.0 mmol/L (21.0-32.0) 09/26/24 05:28 Anion Gap 8 (5-15) 09/26/24 05:28 BUN 19 mg/dL (7-18) H 09/26/24 05:28 Creatinine 0.72 mg/dL (0.55-1.02) 09/26/24 05:28 Est GFR (MDRD) Af Amer 99 mL/min (>60) 09/26/24 05:28 Est GFR (MDRD) Non-Af 82 mL/min (>60) 09/26/24 05:28 BUN/Creatinine Ratio 26.3 RATIO (10-20) H 09/26/24 05:28 Glucose 91 mg/dL (74-106) 09/26/24 05:28 Vancomycin Trough 11.7 ug/mL (5.0-15.0) 09/26/24 14:30 Random Vancomycin 16.1 ug/mL (0.0-15.0) H 09/24/24 13:25 Microbiology Microbiology: Microbiology 09/22/24 Unknown Bone - 5th Toe Gram Stain - Final 09/22/24 Unknown Bone - 5th Toe Wound Culture - Final Staphylococcus aureus 09/22/24 Unknown Bone - 5th Toe Anaerobic Culture - Preliminary Checking for anaerobes, further studies to follow. 09/18/24 15:57 Blood Culture (Wb) - Right Hand Blood Culture - Final No growth in 5 days. 09/18/24 15:57 Blood Culture (Wb) - Anticubital Left Blood Culture - Final No growth in 5 days. 09/20/24 17:57 Stool Clostridioides difficile (PCR) - Final Dosing Weight Weight used for dosin kg Estimated Creatinine Clearance Estimated Creatinine Clearance: ~ 60 Goal Trough Goal Trough: 15-20 mcg/mL Pharmacy Plan for Drug Dosing Pharmacy Plan for Drug Dosing: Vancomycin trough = 11.7, increase to 1500 mg Q24H Pharmacy Service will continue to monitor and adjust dosing as required. Follow-Up Labs Follow-Up Labs: Trough: Vancomycin Date/Time Labs Ordered Labs to be done on [date and time ordered]: 09/28/24 @ 1500
[2024-09-26] MEDS: Vancomycin HCl 1,500 MG in 0.9% Normal Saline (500mL Bag) 500 ML 250 MG IV (16:25)
[2024-09-26 16:30] VITALS: BP 129/47; PULSE 75; RESP 19; TEMP 36.8; O2SAT 100
[2024-09-26] MEDS: NYSTATIN 500,000 UNIT/5 ML UDC 500000 UNIT PO ×2 (18:11→21:50)
[2024-09-26] MEDS: oxyCODONE 5 MG Tablet PO (18:16)
[2024-09-26] MEDS: Ondansetron 4 MG/2 ML Vial IV (20:27)
[2024-09-26 21:30] VITALS: BP 131/47; PULSE 74; RESP 18; TEMP 37.4; O2SAT 96
[2024-09-26] MEDS: Atorvastatin Calcium 20 MG Tablet PO (21:50)
[2024-09-26] MEDS: Paroxetine 20 MG Tablet PO (21:50)
[2024-09-27 02:30] VITALS: TEMP 38
[2024-09-27] MEDS: Acetaminophen 500 MG Tablet 1000 MG PO ×2 (02:40→14:22)
[2024-09-27 03:30] VITALS: BP 126/54; PULSE 58; RESP 18; TEMP 36.9; O2SAT 100
[2024-09-27 06:57] LABS: Absolute Lymphocyte Count 2.02 X10^3/uL (0.83-4.51); Absolute Neutrophil Count 4.2 X10^3/uL (2.0-7.7); Basophil# 0.02 X10^3/uL; Basophil% 0.3 % (0-1); Eosinophil# 0.47 X10^3/uL; Eosinophils% 6.3 % (0-5); Hematocrit 23.4 % (37-47); Hemoglobin 7.7 g/dL (12.0-15.0); Lymphocyte # 2.02 X10^3/ul (0.83-4.51); Lymphocyte % 27.2 % (19-41); Mean Corp Hgb Conc 32.9 g/dL (32-36); Mean Corpuscular Hgb 29.4 pg (27.0-32.0); Mean Corpuscular Volume 89.3 fL (81-99); Mean Platelet Vol. 10.1 fl (6.2-12.0); Monocyte% 9.4 % (0-10); NRBC Flagged by Analyzer 0 % (0-5); Neutrophil # 4.16 X10^3/uL (2.7-7.7); POSITIVE MORPHOLOGY YES; Platelet Count 220 K/mm3 (150-450); RBC Distribution Width CV 14.4 % (11.6-14.6); Red Blood Count 2.62 M/mm3 (4.2-5.4); White Blood Count 7.4 K/mm3 (4.4-11.0)
[2024-09-27 07:26] LABS: Differential Indicated SCAN CRITERIA MET
[2024-09-27 07:45] LABS: Anion Gap 5 (5-15); BUN 17 mg/dL (7-18); BUN/Creat Ratio 24.3 RATIO (10-20); Calcium,Total 8.3 mg/dL (8.5-10.1); Chloride 104 mmol/L (98-107); EST Glomerular Filtration Rate 85 mL/min (>60); Est Glom Filt Rate - Afr Amer 103 mL/min (>60); Estimated Creatinine Clearance 59.93 ml/min; Glucose 96 mg/dL (74-106); Potassium 3.6 mmol/L (3.5-5.1); Sodium Level 134 mmol/L (136-145)
[2024-09-27 07:50] VITALS: BP 119/50; PULSE 57; RESP 18; TEMP 36.9; O2SAT 93
[2024-09-27 07:50] LABS: Differential Comment SCANNED
[2024-09-27 07:51] VITALS: O2SAT 93
[2024-09-27] MEDS: NYSTATIN 500,000 UNIT/5 ML UDC 500000 UNIT PO ×3 (08:17→17:34)
[2024-09-27] MEDS: Aspirin E.C. 81 MG Tablet PO (08:17)
[2024-09-27] MEDS: Ensure Plus High Protein 120 ML LIQUID PO ×3 (08:17→17:34)
[2024-09-27] MEDS: Menthol/Lanolin/Calamine/Znox 113 GM Tube 1 APPLIC TOPICAL ×2 (11:06→20:20)
[2024-09-27] MEDS: Enoxaparin 40 MG/0.4 ML Syringe SC (11:07)
[2024-09-27] MEDS: Nystatin Powder 15gm Bottle 1 APPLIC TOPICAL ×2 (11:07→20:20)
[2024-09-27] MEDS: cycloBENZAPRine HCl 5 MG TABLET PO (11:08)
--- NOTE | 2024-09-27 12:30 | CASEMGMT ---
Discharge Planning Updates sent to Remberto Orozco. Cheyenne Denson DC Planning Asst.
--- NOTE | 2024-09-27 13:12 | PCM.PN.ID ---
Physical Exam Narrative Some rash, nausea yesterday. Feeling better today. No fever this AM. Const alert and no apparent distress General Appearance: cooperative Resp normal air movement and clear to auscultation bilaterally Cardio regular rate and regular rhythm GI soft to palpation, non-tender and non-distended Skin Skin Narrative: foot wrapped. Some fading redness on legs and trunk ID ID: Route of nutrition/ use of supplements: [] Nutritional Intake: [] IV Site: [] Rowland Catheter: [] Assessment & Plan Assessment/Plan (1) Osteomyelitis: PLAN: R foot osteo. On vanc. Due to suspected drug rash, on 09/26 stopped ceftriaxone, flagyl. OR 09/22/[address] Campos. Cdiff neg. H/o hives with PCN. Surg cx with MSSA. Ok for discharge on 6 weeks po doxy (start date is OR 09/22). ID followup in 3 weeks. Will follow, d/w upper caser
--- NOTE | 2024-09-27 15:10 | CASEMGMT ---
Addendum entered by Anita Serrano 09/27/24 16:21: GEORGES received authorization from [facility]. Authorization number: [id number]. Prcsandra masterson from 09/27-09/29. DCA notified. Plan: Remberto Orozco; when medically ready KALLI Walker Original Note: Social Work- SW submitted for additional authorization due to pt not discharging prior to 09/26. GEORGES faxed clinicals to [facility]. Plan: Remberto Orozco, pend precert KALLI Walker
[2024-09-27 16:10] VITALS: BP 126/49; PULSE 66; RESP 18; TEMP 36.9; O2SAT 94
--- NOTE | 2024-09-27 18:19 | PCM.PN.HOSP ---
Reason for Visit Reason for Visit: Diagnoses Polyneuropathy, unspecified (09/18/24) Cellulitis of right lower limb (09/18/24) Cellulitis, unspecified (09/18/24) Other acquired deformities of unspecified foot (09/18/24) Osteomyelitis, unspecified (09/18/24) Other injury of unspecified body region, initial encounter (09/18/24) Subjective Subjective Patient was seen and examined today, she does not appear in any distress and voices no specific complaints. We are currently waiting for approval for patient to go to an extended care facility for short-term rehab services, her IV was lost today so she was switched over to oral doxycycline. Objective Data Objective Data Vital Signs: Vital Signs Temp Pulse Resp BP Pulse Ox O2 Del Method O2 Flow Rate 98.5 F 66 18 126/49 H 94 Room Air 2 09/27/24 16:10 09/27/24 16:10 09/27/24 16:10 09/27/24 16:10 09/27/24 16:10 09/27/24 16:10 09/27/24 07:51 Oxygen Flow Rate (L/min) 2 Oxygen Delivery Method Room Air Weight: 88.9 kg Body Mass Index (BMI) 30.7 Intake & Output: Intake and Output for Last 24 Hours 09/25/24 09/26/24 09/27/24 23:59 23:59 23:59 Intake Total 2850 / 3100 1830 / 2030 1150 / 1150 Output Total 1900 / 3100 2750 / 3150 1700 / 1700 Balance 950 / 0 -920 / -1120 -550 / -550 Lab / Micro Data 09/27/24 06:35 09/27/24 06:35 Labs: Laboratory Results - last 24 hr 09/27/24 06:35: WBC 7.4, RBC 2.62 L, Hgb 7.7 L, Hct 23.4 L, MCV 89.3, MCH 29.4, MCHC 32.9, RDW Std Deviation 47.0 H, RDW Coeff of Danny 14.4, Plt Count 220, MPV 10.1, Immature Gran % (Auto) 0.800, Neut % (Auto) 56.0, Lymph % (Auto) 27.2, [place] % (Auto) 9.4, Eos % (Auto) 6.3 H, Baso % (Auto) 0.3, Absolute Neuts (auto) 4.2, Absolute Lymphs (auto) 2.02, Nucleated RBC % 0, Differential Comment SCANNED, Sodium 134 L, Potassium 3.6, Chloride 104, Carbon Dioxide 25.0, Anion Gap 5, BUN 17, Creatinine 0.70, Estim Creat Clear Calc 59.93, Est GFR (MDRD) Af Amer 103, Est GFR (MDRD) Non-Af 85, BUN/Creatinine Ratio 24.3 H, Glucose 96, Calcium 8.3 L Micro: Microbiology 09/22/24 Unknown Bone - 5th Toe Gram Stain - Final 09/22/24 Unknown Bone - 5th Toe Wound Culture - Final Staphylococcus aureus 09/22/24 Unknown Bone - 5th Toe Anaerobic Culture - Final No anaerobic bacteria isolated. 09/18/24 15:57 Blood Culture (Wb) - Right Hand Blood Culture - Final No growth in 5 days. 09/18/24 15:57 Blood Culture (Wb) - Anticubital Left Blood Culture - Final No growth in 5 days. 09/20/24 17:57 Stool Clostridioides difficile (PCR) - Final Physical Exam Const alert, oriented x3 and no apparent distress General Appearance: cooperative, well kempt and well developed Orientation / Consciousness: awake, oriented to person, oriented to place and oriented to time HEENT normocephalic, head/scalp atraumatic and moist oral mucous membranes Eyes PERRL, EOMs intact bilaterally and conjunctivae normal Neck supple, no JVD, thyroid normal and no carotid bruits General: trachea midline Resp normal respiratory effort, no retractions, no use of accessory muscles and clear to auscultation bilaterally Auscultation: Negative for rales, rhonchi or wheezes Cardio regular rate, regular rhythm, S1 normal heart sound, S2 normal heart sound, no murmurs, no rub and no gallops GI normal to inspection, nondistended, normoactive bowel sounds, soft to palpation, non-tender and non-distended Extremity no clubbing, cyanosis or edema Neuro oriented x3, CN's II-XII intact bilaterally, moves all extremities, no focal motor deficits and no sensory deficits noted Sensorium / Orientation: awake and alert Speech: speech normal Psych affect normal Assessment & Plan Assessment/Plan (1) Osteomyelitis: PLAN: Plan 1. Right foot osteomyelitis-again patient was switched to doxycycline today, we are currently waiting approval for the patient to go to an extended care facility for short-term rehab services. #2 chronic depression-patient is currently on paroxetine #3 essential hypertension-patient is on amlodipine and lisinopril as an outpatient, these are being held presently because of hypotension, blood pressure will continue to be monitored #4 hyperlipidemia-patient is on atorvastatin Total clinical time spent by myself addressing the patient's medical issues, reviewing all of her data, and collaborating with patient's care team: 35 minutes Charges/Coding Visit Charges Inpatient E&M: 27415 Subs Hosp L2
[2024-09-27 20:00] VITALS: BP 136/54; PULSE 62; RESP 16; TEMP 36.7; O2SAT 94
[2024-09-27] MEDS: Ondansetron 8 MG Tablet 4 MG PO (20:16)
[2024-09-27] MEDS: Paroxetine 20 MG Tablet PO (21:26)
[2024-09-27] MEDS: Doxycycline 100 MG CAPSULE PO (21:26)
[2024-09-27] MEDS: Atorvastatin Calcium 20 MG Tablet PO (21:26)
[2024-09-28] MEDS: Ondansetron 4 MG/2 ML Vial IV (02:09)
[2024-09-28] MEDS: 0.9% Saline Lock 10 ML Syringe IV ×2 (02:09→09:00)
[2024-09-28 02:12] VITALS: BP 133/44; PULSE 67; RESP 18; TEMP 36.6; O2SAT 97
[2024-09-28 07:46] VITALS: O2SAT 95
[2024-09-28 08:07] VITALS: BP 132/44; PULSE 65; RESP 18; TEMP 37.4; O2SAT 94
[2024-09-28] MEDS: Aspirin E.C. 81 MG Tablet PO (08:21)
[2024-09-28] MEDS: Ensure Plus High Protein 120 ML LIQUID PO (08:21)
[2024-09-28] MEDS: Nystatin Powder 15gm Bottle 1 APPLIC TOPICAL ×2 (08:54→21:00)
[2024-09-28] MEDS: Menthol/Lanolin/Calamine/Znox 113 GM Tube 1 APPLIC TOPICAL ×2 (08:54→20:59)
[2024-09-28] MEDS: Ondansetron 8 MG Tablet 4 MG PO ×2 (09:10→17:39)
[2024-09-28] MEDS: Enoxaparin 40 MG/0.4 ML Syringe SC (12:12)
[2024-09-28] MEDS: Doxycycline 100 MG CAPSULE PO ×2 (12:12→20:59)
[2024-09-28] MEDS: Acetaminophen 500 MG Tablet 1000 MG PO (12:17)
[2024-09-28] MEDS: Loperamide 2 MG Capsule PO ×3 (13:00→21:13)
--- NOTE | 2024-09-28 13:09 | PCM.TXEXTCAR ---
Diet Diet Order/Speech Therapy: 09/23/24 12:49 Diet: Regular - General Type of Dietary Supplement:: Angel w/ B&D Diet Comments: prefers orange Routine Orders/Code Status Routine Lab Work: CBC (On 09/30/2024) Code Status: Full Code DC O2, CPAP, BIPAP needs Home O2 Discharge instructions: No Wound(s) RIGHT FOOT: Wound Type: Neuropathic/Diabetic Foot Ulcer Dressing Change: betadine with dry dressing RIGHT ANKLE/FOOT: Wound Type: Surgical Incision buttocks: Wound Type: blister Therapies Weight Bearing: Non weight bearing (right lower) Physical Therapy: Eval and Treat Occupational Therapy: Eval and Treat Problem/Diagnosis (1) Osteomyelitis: Status: Acute Code(s): M86.9 - Osteomyelitis, unspecified (2) Cellulitis of right lower extremity: Status: Acute Code(s): L03.115 - Cellulitis of right lower limb Plan 1. Right foot osteomyelitis-again patient was switched to doxycycline today, we are currently waiting approval for the patient to go to an extended care facility for short-term rehab services. #2 chronic depression-patient is currently on paroxetine #3 essential hypertension-patient is on amlodipine and lisinopril as an outpatient, these are being held presently because of hypotension, blood pressure will continue to be monitored #4 hyperlipidemia-patient is on atorvastatin #5 anemia-etiology unclear, recheck hemoglobin after discharge Total clinical time spent by myself addressing the patient's medical issues, reviewing all of her data, and collaborating with patient's care team: 35 minutes Allergies/Procedures Done in Hospital Allergies cephalexin (From Keflex) Allergy (Unknown, Verified 09/18/24 15:01) rash, headaches bee venom protein (honey bee) Allergy (Verified 09/18/24 15:01) Anaphylaxis Penicillins Allergy (Verified 09/18/24 15:52) Hives pantoprazole (From Protonix) Adverse Reaction (Intermediate, Verified 09/18/24 15:01) Thrombocytopenia Procedures: - (Posterior tibial tendon transfer, peroneal tendon transfer equaling bridle procedure, ulceration wound debridement right foot) Type of Care/Length of Stay Estimated LOS: Convalescent Care Less Than 30 days Type of Care Needed: Skilled Rehab Potential: Good Prognosis: Good Additional Orders/Day of Discharge H&P will serve as current which was dated: 09/18/24 Day of Discharge: 12/24/24 Dietary and Speech Recommendations Dietitian Recommendations/Changes: Will continue liberal Regular diet to optimize oral intakes. Will continue Angel BID with meals to promote wound healing. Will continue 120 ml ensure plus high protein tid w/ medpass for increased nutrition if consumed. Discharge Plan Admission Admit Date/Time: 09/18/24 16:32 Primary Reason for Your Visit: Cellulitis right foot, cavovarus deformity of right foot Attending Provider: Servando De Dios Primary Care Provider: Angelika Monsivais Consulting Providers: Cisco Reyes; Austin Sheriff; Ambrose Campos; Josette Olivares; Servando De Dios Instructions Additional Instructions / Restrictions: Do not remove splint from right foot Discharge Orders/Prescriptions Prescriptions: New doxycycline hyclate 100 mg capsule 100 mg PO BID Qty: 74 0RF loperamide 2 mg Capsule 2 mg PO Q2H PRN PRN (Reason: Diarrhea/Loose Stools) Qty: 0 0RF enoxaparin 40 mg/0.4 mL Syringe 40 mg subcut DAILY Qty: 0 0RF menthol-zinc oxide [Calmoseptine] 0.44-20.6 % Ointment 1 applic topical BID Qty: 0 0RF Protocol: *Topical Application Instructions APPLICATION INSTRUCTIONS: APPLY TO BILATERAL BUTTOCKS Ensure Plus High Protein 0.08 gram-1.5 kcal/mL Liquid 120 ml PO TIDCM Qty: 0 0RF nystatin 100,000 unit/mL Suspension 500,000 unit PO 4X/DAY Qty: 0 0RF Rx Instructions: Continue for 7 days nystatin [Nyamyc] 100,000 unit/gram Powder 1 applic topical BID Qty: 0 0RF Protocol: *Topical Application Instructions APPLICATION INSTRUCTIONS: abd folds, under breast oxycodone 5 mg Tablet 5 mg PO Q4H PRN PRN (Reason: Pain Score 4-10) 2 Days Qty: 6 0RF Continued aspirin [Adult Low Dose Aspirin] 81 mg tablet,delayed release (DR/EC) 81 mg PO DAILY atorvastatin 20 MG tablet 20 mg PO QHS Patient Comments: lower cholesterol paroxetine HCl 20 MG tablet 20 mg PO DAILY Patient Comments: mood enhancer cholecalciferol (vitamin D3) 25 mcg (1,000 unit) tablet 50 mcg PO DAILY Patient Comments: supplement alendronate 70 mg tablet 70 mg PO QWEEK amlodipine 5 mg tablet 5 mg PO DAILY acetaminophen [Tylenol] 325 mg Tablet 1,000 mg PO TID PRN PRN (Reason: Pain Score 1-10/Temp > 100.7 F) lisinopril 2.5 mg Tablet 2.5 mg PO 1700 Qty: 30 0RF Rx Instructions: This is for BP omeprazole 20 mg capsule,delayed release(DR/EC) 20 mg PO DAILY Qty: 30 0RF Discontinued doxycycline hyclate 100 mg capsule 100 mg PO Q12H flaxseed oil 1,000 mg capsule 1,000 mg PO DAILY vitamin B complex [Vitamins B Complex] Capsule 1 cap PO DAILY Referrals / Follow Up: Ambrose Campos MD [Med Staff - Active Staff] - See Referral Note (First week in October 2024-call for an appointment) Angelika Monsivais MD [Primary Care Provider] - Disposition Disposition (needs filled in before D/C Order can be placed): Custodial Facility
--- NOTE | 2024-09-28 14:27 | DS.PCM_ITS ---
Providers Date of Admission: 09/18/24 Date of Discharge: 09/28/24 Primary Care Physician: Dr. Angelika Monsivais MD Consultations 09/20/24 07:23 Consult: Podiatry Routine Consulting Provider: Ambrose Campos Reason for Consult: right foot ulcer and cellulitis EMERGENT Consult: No Notified: Yes Date Notified: 09/20/24 Time Notified: 07:23 Method of Notification: Verbal 09/21/24 12:07 Consult: Infectious Disease Routine Consulting Provider: Austin Sheriff Reason for Consult: osteomyelitis of the right foot EMERGENT Consult: No Notified: Yes Date Notified: 09/21/24 Time Notified: 12:07 Method of Notification: Text 09/22/24 08:06 Consult: Onc/Wound/continuous improvement analyst Routine Comment: Reason for Consult:: foot osteo Reason For Visit: CELLULITIS Diagnosis Discharge Diagnosis (1) Osteomyelitis: Status: Inactive Code(s): M86.9 - Osteomyelitis, unspecified (2) Cellulitis of right lower extremity: Status: Inactive Code(s): L03.115 - Cellulitis of right lower limb Plan 1. Right foot osteomyelitis-again patient was switched to doxycycline today, we are currently waiting approval for the patient to go to an extended care facility for short-term rehab services. #2 chronic depression-patient is currently on paroxetine #3 essential hypertension-patient is on amlodipine and lisinopril as an outpatient, these are being held presently because of hypotension, blood pressure will continue to be monitored #4 hyperlipidemia-patient is on atorvastatin #5 anemia-etiology unclear, recheck hemoglobin after discharge Total clinical time spent by myself addressing the patient's medical issues, reviewing all of her data, and collaborating with patient's care team: 35 minutes Medications at Discharge Home Medications atorvastatin 20 mg tablet 20 mg PO QHS Cholesterol 12/15/15 paroxetine HCl 20 mg tablet 20 mg PO DAILY Depression 12/15/15 aspirin 81 mg tablet,delayed release (Adult Low Dose Aspirin) 81 mg PO DAILY Heart 07/19/22 cholecalciferol (vitamin D3) 25 mcg (1,000 unit) tablet 50 mcg PO DAILY Supplement 07/19/22 acetaminophen 325 mg tablet (Tylenol) 1,000 mg PO TID PRN PRN Pain Score 1- 10/Temp > 100.7 F 01/11/24 lisinopril 2.5 mg tablet 2.5 mg PO 1700 #30 tabs 02/26/24 omeprazole 20 mg capsule,delayed release 20 mg PO DAILY Stomach acid #30 caps 02/26/24 alendronate 70 mg tablet 70 mg PO QWEEK 09/18/24 amlodipine 5 mg tablet 5 mg PO DAILY 09/18/24 doxycycline hyclate 100 mg capsule 100 mg PO BID #74 caps 09/27/24 enoxaparin 40 mg/0.4 mL subcutaneous syringe 40 mg (0.4 mL) subcut DAILY #0 mL 09/28/24 food supplemt, lactose-reduced 0.08 gram-1.5 kcal/mL oral liquid (Ensure Plus High Protein) 120 ml PO TIDCM #0 mL 09/28/24 loperamide 2 mg capsule 2 mg PO Q2H PRN PRN Diarrhea/Loose Stools #0 caps 09/28/24 menthol 0.44 %-zinc oxide 20.6 % topical ointment (Calmoseptine) 1 applic topical BID #0 grams 09/28/24 nystatin 100,000 unit/gram topical powder (Nyamyc) 1 applic topical BID #0 grams 09/28/24 nystatin 100,000 unit/mL oral suspension 500,000 unit (5 mL) PO 4X/DAY #0 mL 09/28/24 oxycodone 5 mg tablet 5 mg PO Q4H PRN PRN Pain Score 4-10 2 days #6 tabs 09/28/24 Hospital Course Operations - (Posterior tibial tendon transfer, peroneal tendon transfer equaling the bridle procedure) Procedures None Summary of Care Provided Minutes Spent on Discharge: 31 Hospital Course: This 84-year-old white female was seen in the emergency room at [facility] with right sided lower limb swelling pain and redness. Patient had been treated as an outpatient for wound at the base of her left fifth metatarsal. She had been on oral doxycycline for several days. Workup in the emergency room included a CBC which showed normal white blood cell count C- reactive protein was elevated at 38.9, sed rate was elevated at 52, patient's x- ray of her foot was reviewed and it showed a round radiolucency projecting over the soft tissue lateral to the fifth metatarsal phalangeal joint patient was given IV clindamycin and vancomycin, and podiatry was contacted. Patient was admitted to the hospitalist service and seen in consultation by podiatry. Patient underwent surgery on 09/24/2024 and a posterior tibial tendon transfer was performed with a peroneal tendon transfer equaling a bridle procedure. Wound debridement of the right foot was also performed. Patient was seen in consultation by infectious diseases monitored antibiotic treatment. Patient was seen by PT and OT and it was recommended the patient go to a long-term facility for short-term rehab services. On 09/28/2024, patient was seen and examined:alert, oriented x3 and no apparent distress General Appearance: cooperative, well kempt and well developed Orientation / Consciousness: awake, oriented to person, oriented to place and oriented to time HEENT normocephalic, head/scalp atraumatic and moist oral mucous membranes Eyes PERRL, EOMs intact bilaterally and conjunctivae normal Neck supple, no JVD, thyroid normal and no carotid bruits General: trachea midline Resp normal respiratory effort, no retractions, no use of accessory muscles and clear to auscultation bilaterally Auscultation: Negative for rales, rhonchi or wheezes Cardio regular rate, regular rhythm, S1 normal heart sound, S2 normal heart sound, no murmurs, no rub and no gallops GI normal to inspection, nondistended, normoactive bowel sounds, soft to palpation, non-tender and non-distended Extremity no clubbing, cyanosis or edema Neuro oriented x3, CN's II-XII intact bilaterally, moves all extremities, no focal motor deficits and no sensory deficits noted Sensorium / Orientation: awake and alert Speech: speech normal Psych affect normal Patient was transferred to long-term facility on 09/28/2024 in stable condition Weight / BMI Weight Weight: 88.9 kg Body Mass Index (BMI) 30.7 ABG / Lab / Microbiology Data 09/27/24 06:35 09/27/24 06:35 Microbiology: Microbiology 09/28/24 06:30 Stool Clostridioides difficile (PCR) - Final 09/22/24 Unknown Bone - 5th Toe Gram Stain - Final 09/22/24 Unknown Bone - 5th Toe Wound Culture - Final Staphylococcus aureus 09/22/24 Unknown Bone - 5th Toe Anaerobic Culture - Final No anaerobic bacteria isolated. 09/18/24 15:57 Blood Culture (Wb) - Right Hand Blood Culture - Final No growth in 5 days. 09/18/24 15:57 Blood Culture (Wb) - Anticubital Left Blood Culture - Final No growth in 5 days. 09/20/24 17:57 Stool Clostridioides difficile (PCR) - Final D/C Instructions DC O2, CPAP, BIPAP Needs Home O2 Discharge instructions: No Meaningful Use Info Meaningful Use Meaningful Use Diagnoses (Choose all that apply): None applicable Ischemic Stroke Statin Dosing Therapy Reference: STATIN DOSE THERAPY REFERENCE: * Patients > 75 years receive moderate or high dose statin therapy. * Patients 75 years or YOUNGER should receive HIGH intensity statin dose unless contraindicated. You will be required to document reason for non-treatment if statin daily dose does not meet guidelines. HIGH DOSE STATIN THERAPY DAILY Atorvastatin > than or = to 40 mg Rosuvastatin > than or = to 20 mg Amlodipine + Atorvastatin > than or = to 2.5/40 mg Ezetimibe + Simvastatin 10/80 mg Simvastatin 80mg Discharge Plan Admission Admit Date/Time: 09/18/24 16:32 Primary Reason for Your Visit: Cellulitis right foot, cavovarus deformity of right foot Attending Provider: Servando De Dios Primary Care Provider: Angelika Monsivais Consulting Providers: Cisco Reyes; Austin Sheriff; Ambrose Campos; Josette Olivares; Servando De Dios Instructions Additional Instructions / Restrictions: Do not remove splint from right foot Discharge Orders/Prescriptions Prescriptions: New doxycycline hyclate 100 mg capsule 100 mg PO BID Qty: 74 0RF loperamide 2 mg Capsule 2 mg PO Q2H PRN PRN (Reason: Diarrhea/Loose Stools) Qty: 0 0RF enoxaparin 40 mg/0.4 mL Syringe 40 mg subcut DAILY Qty: 0 0RF menthol-zinc oxide [Calmoseptine] 0.44-20.6 % Ointment 1 applic topical BID Qty: 0 0RF Protocol: *Topical Application Instructions APPLICATION INSTRUCTIONS: APPLY TO BILATERAL BUTTOCKS Ensure Plus High Protein 0.08 gram-1.5 kcal/mL Liquid 120 ml PO TIDCM Qty: 0 0RF nystatin 100,000 unit/mL Suspension 500,000 unit PO 4X/DAY Qty: 0 0RF Rx Instructions: Continue for 7 days nystatin [Nyamyc] 100,000 unit/gram Powder 1 applic topical BID Qty: 0 0RF Protocol: *Topical Application Instructions APPLICATION INSTRUCTIONS: abd folds, under breast oxycodone 5 mg Tablet 5 mg PO Q4H PRN PRN (Reason: Pain Score 4-10) 2 Days Qty: 6 0RF Continued aspirin [Adult Low Dose Aspirin] 81 mg tablet,delayed release (DR/EC) 81 mg PO DAILY atorvastatin 20 MG tablet 20 mg PO QHS Patient Comments: lower cholesterol paroxetine HCl 20 MG tablet 20 mg PO DAILY Patient Comments: mood enhancer cholecalciferol (vitamin D3) 25 mcg (1,000 unit) tablet 50 mcg PO DAILY Patient Comments: supplement alendronate 70 mg tablet 70 mg PO QWEEK amlodipine 5 mg tablet 5 mg PO DAILY acetaminophen [Tylenol] 325 mg Tablet 1,000 mg PO TID PRN PRN (Reason: Pain Score 1-10/Temp > 100.7 F) lisinopril 2.5 mg Tablet 2.5 mg PO 1700 Qty: 30 0RF Rx Instructions: This is for BP omeprazole 20 mg capsule,delayed release(DR/EC) 20 mg PO DAILY Qty: 30 0RF Discontinued doxycycline hyclate 100 mg capsule 100 mg PO Q12H flaxseed oil 1,000 mg capsule 1,000 mg PO DAILY vitamin B complex [Vitamins B Complex] Capsule 1 cap PO DAILY Referrals / Follow Up: Ambrose Campos MD [Med Staff - Active Staff] - See Referral Note (First week in October 2024-call for an appointment) Angelika Monsivais MD [Primary Care Provider] - Disposition Disposition (needs filled in before D/C Order can be placed): [facility] Facility Charges/Coding Visit Charges Inpatient E&M: 93780 Disch Hosp >30min
[2024-09-28 14:57] LABS: Ferritin 218 ng/mL (8-252)
[2024-09-28 14:58] LABS: Iron 22 ug/dL (50-170); Iron Binding Capacity,Total 150 ug/dL (250-450); PERCENT IRON SATURATION 14.7 % (15.0-55.0)
[2024-09-28 16:20] VITALS: BP 136/60; PULSE 60; RESP 16; TEMP 36.7; O2SAT 93
[2024-09-28] MEDS: NYSTATIN 500,000 UNIT/5 ML UDC 500000 UNIT PO (17:32)
[2024-09-28 20:43] VITALS: BP 127/52; PULSE 63; RESP 16; TEMP 36.7; O2SAT 94
[2024-09-28] MEDS: Paroxetine 20 MG Tablet PO (20:59)
[2024-09-28] MEDS: Atorvastatin Calcium 20 MG Tablet PO (20:59)
--- NOTE | 2024-09-28 23:06 | NURSING ---
Report called to Laurie at [facility].
[2024-09-29] MEDS: Ondansetron 8 MG Tablet 4 MG PO (02:48)
[2024-09-29] MEDS: Loperamide 2 MG Capsule PO (02:48)
[2024-09-29 02:49] VITALS: BP 141/64; PULSE 68; RESP 18; TEMP 36.6; O2SAT 94
--- NOTE | 2024-10-05 12:57 | CASEMGMT ---
Social Work- SW completed PASRR and transport sheets in anticipation of discharge. KALLI Walker
== END 2024-09-29 03:25 | DRG 464 ==
LOC: ED 15:28 → MS3 16:42
PROVIDERS: Family Medicine; Internal Medicine Infectious Disease; Physician Assistant; Podiatrist Foot & Ankle Surgery; Student in an Organized Health Care Education/Training Program; Admitting Provider Internal Medicine; Emergency Provider Emergency Medicine; PCP Internal Medicine; Visit Provider Internal Medicine
DX: M86.8X7 Other osteomyelitis, ankle and foot (principal); L03.115 Cellulitis of right lower limb; L97.912 Non-pressure chronic ulcer of unspecified part of right lower leg with fat layer exposed; G57.31 Lesion of lateral popliteal nerve, right lower limb; M06.9 Rheumatoid arthritis, unspecified; I10 Essential (primary) hypertension; F41.8 Other specified anxiety disorders; E55.9 Vitamin D deficiency, unspecified; G60.8 Other hereditary and idiopathic neuropathies; G47.33 Obstructive sleep apnea (adult) (pediatric); M48.02 Spinal stenosis, cervical region; M19.90 Unspecified osteoarthritis, unspecified site; E78.00 Pure hypercholesterolemia, unspecified; K21.9 Gastro-esophageal reflux disease without esophagitis; L97.519 Non-pressure chronic ulcer of other part of right foot with unspecified severity; Q66.10 Congenital talipes calcaneovarus, unspecified foot; M24.571 Contracture, right ankle; M24.576 Contracture, unspecified foot; M21.371 Foot drop, right foot; R19.7 Diarrhea, unspecified; I95.9 Hypotension, unspecified; D64.9 Anemia, unspecified; Z87.891 Personal history of nicotine dependence; Z79.899 Other long term (current) drug therapy; Z79.82 Long term (current) use of aspirin; B95.61 Methicillin susceptible Staphylococcus aureus infection as the cause of diseases classified elsewhere
CPT/HCPCS: 36415; 73600; 73630; 73720; 76000; 80048; 80076; 80202; 82728; 83540; 83550; 83735; 84100; 84443; 85025; 85610; 85652; 86140; 87015; 87040; 87070; 87075; 87077; 87102; 87116; 87186; 87205; 87206; 87493; 88305; 88311; 93005; 93923; 97110; 97116; 97162; 97166; 97168; 97530; 97535; 99283; A9575; C1713; A4216; J0696; J2405

== ENCOUNTER → 2024-11-04 | Outpatient (CLI) | payer MEDICARE, SELFPAY ==
--- NOTE | 2024-11-04 08:26 | MRI_ITS ---
PROCEDURE: BRAIN WITHOUT CONTRAST REASON FOR EXAM: Stroke alert. TECHNIQUE: Noncontrast brain MRI. COMPARISON: None. FINDINGS: Brain: Periventricular T2/FLAIR hyperintensity likely representing moderate chronic microvascular ischemia. Moderate global parenchymal atrophy. No evidence of acute hemorrhage. Diffusion weighted images show no evidence of acute or recent infarct. Ventricles: Normal. Major Intracranial Vessels: Normal flow voids. Sinuses: Clear. Mastoids: Clear. Absent resighini ocular lenses. MRI/Brain without Contrast IMPRESSION: No acute intracranial abnormality. Parenchymal atrophy and chronic microvascular ischemia. Reading Location: [id number]
== END | disposition home or self-care (01) ==
PROVIDERS: PCP Internal Medicine; Referring Provider Neurological Surgery; Visit Provider Neurological Surgery
DX: I63.9 Cerebral infarction, unspecified (principal)
CPT/HCPCS: 70551

== ENCOUNTER → 2024-11-17 | Outpatient (CLI) | payer MEDICARE, SELFPAY ==
--- NOTE | 2024-11-17 15:47 | MRI_ITS ---
PROCEDURE: MRI lumbar spine without IV contrast REASON FOR EXAM: Pain TECHNIQUE: Multisequence multiplanar MR images of the lumbar spine were obtained without the administration of intravenous contrast. COMPARISON: None. FINDINGS: Vertebral body heights are within normal limits. Negative for fracture or marrow replacement. Mild degenerative endplate edema at L2-L3. Mild/moderate levoscoliosis. Straightening of the normal lordosis. Multilevel disc desiccation and disc space narrowing. Conus medullaris is intact and terminates at L1-L2. Moderate paraspinal muscle atrophy. No paraspinal mass. L1-L2: Posterior disc bulge. Mild bilateral facet arthrosis and ligamentum flavum hypertrophy. No significant spinal stenosis. Mild bilateral foraminal narrowing. L2-L3: Posterior disc bulge with superimposed right central protrusion and annular fissure. Mild/moderate bilateral facet arthrosis. Mild spinal stenosis width narrowing of the right lateral recess. Mild bilateral foraminal narrowing, greater on the right. L3-L4: Posterior disc bulge. Mild/moderate bilateral facet arthrosis. Ligamentum flavum hypertrophy. Mild spinal stenosis. Moderate right and mild left foraminal narrowing. L4-L5: Posterior disc osteophyte complex and annular fissure. Moderate bilateral facet arthrosis and ligamentum flavum hypertrophy. Moderate spinal stenosis and narrowing of the left lateral recess. Moderate right and mild/moderate left foraminal narrowing. L5-S1: Posterior disc osteophyte complex with a superimposed right central disc protrusion. Moderate bilateral facet arthrosis. Moderate spinal stenosis including narrowing of the right lateral recess. Moderate bilateral foraminal narrowing. MRI/Spine Lumbar (Routine) IMPRESSION: 1. Acquired multilevel spinal stenosis, greatest at L4-L5 and L5-S1 categorized as moderate. 2. Acquired mild to moderate multilevel foraminal narrowing. See level by jason david comments above. Reading Location: [facility]
== END | disposition home or self-care (01) ==
LOC: MRI 15:31
PROVIDERS: PCP Internal Medicine; Referring Provider Anesthesiology Pain Medicine; Visit Provider Anesthesiology Pain Medicine
DX: M54.16 Radiculopathy, lumbar region (principal)
CPT/HCPCS: 72148

== ENCOUNTER → 2025-03-09 | Outpatient (CLI) | payer MEDICARE, SELFPAY ==
--- NOTE | 2025-03-09 13:57 | RAD_ITS ---
PROCEDURE: L/S SPINE MIN 4 VIEWS 03/09/2025 REASON FOR EXAM: WEAKNESS TECHNIQUE: Standing AP lateral and flexion extension views of the lumbar spine were obtained. COMPARISON: Lumbar spine series, 09/13/2020. FINDINGS: There is loss of the normal lumbar lordosis. There is mild levoscoliosis of the lumbar spine centered at the L3 level. There is severe diffuse degenerative disc disease T10-11 through L5-S1 with almost complete loss of the intervertebral disc spaces and large marginal osteophytes. There is multilevel facet arthropathy without spondylolisthesis. There is no instability with flexion and extension. Suspect significant spinal stenosis throughout the lumbar spine. The SI joints are normal. There is calcific vascular disease of the abdominal aorta. RAD/L/S Spine Min 4 Views IMPRESSION: 1. Severe diffuse degenerative disc disease of the lower thoracic and lumbar s pine. 2. Suspect multilevel spinal stenosis. 3. No evidence of instability with flexion and extension Reading Location: [id number]
== END | disposition home or self-care (01) ==
LOC: RAD 13:53
PROVIDERS: PCP Internal Medicine; Referring Provider Neurological Surgery; Visit Provider Neurological Surgery
DX: R20.0 Anesthesia of skin (principal); R53.1 Weakness
CPT/HCPCS: 72110

== ENCOUNTER 2025-04-22 07:34 | Day surgery (SDC) | payer MEDICARE, SELFPAY ==
--- NOTE | 2025-04-13 15:25 | PAT.ANE_ITS ---
Pre-Assessment Diagnosis/Proposed Procedure Planned Operative Procedure(s): SPLIT THICKNESS SKIN GRAFT RIGHT FOOT/HEEL Anesthesia History Anesthesia History - laboratory technologist: Anesthesia History - laboratory technologist Hx Hospitalization No 04/13/25 11:21 Any Problems With Anesthesia No 04/13/25 11:21 Cholinesterase deficiency No 04/13/25 11:21 You/Your Family Experience No 04/13/25 11:21 fever (hyperthermia) with Relationship Recent Exposure to Contagious No 09/22/24 04:37 Disease Does patient have nerve No 04/13/25 11:21 stimulator Patient instructed to have device shut off --Does patient have Pacemaker or ICD? When Was Last Pacemaker Check QUESTION #4 FULL TEXT: You/Your Family Experience fever (hyperthermia) with Anesthesia Last Oral Intake Last Oral intake: Last Oral Intake NPO since Meds taken in AM with sips of water? Meds patient instructed to take am of surgery PONV PONV - laboratory technologist: PONV - laboratory technologist Female Yes 04/13/25 11:21 HX of Motion Sickness No 04/13/25 11:21 HX of N/V After Surgery No 04/13/25 11:21 Non-Smoker Yes 04/13/25 11:21 Duration of Surgery greater Yes 04/13/25 11:21 than 60 minutes Number of Risk Factors 3 04/13/25 11:21 PONV Score Moderate Risk 04/13/25 11:21 Height & Weight Height & Weight: Anesthesia: Height & Weight Height 5 ft 7 in 09/27/24 12:59 Respiratory Assessment Respiratory Assessment - laboratory technologist: Respiratory Tract Infection Hx - laboratory technologist Hx Respiratory Tract Infection No 04/13/25 11:21 STOP Sleep Apnea STOP Sleep Apnea - laboratory technologist: STOP Sleep Apnea - laboratory technologist Hx Hypertension Yes: CONTROLLED WITH MED 04/13/25 11:21 Hx Sleep Apnea Yes 04/13/25 11:21 CPAP Yes 04/13/25 11:21 BIPAP No 04/13/25 11:21 Do you snore loudly (louder than talking or can be heard Do you often feel tired/ fatigued/ sleepy during daytime? Has anyone observed you stop breathing during sleep? STOP Results Positive 04/13/25 11:21 QUESTION #5 FULL TEXT : Do you snore loudly (louder than talking or can be heard through closed doors)? Tobacco Use History Tobacco Use History - laboratory technologist: Tobacco Use History - laboratory technologist Tobacco Use Smoking Status Former smoker 04/13/25 11:21 Hx Tobacco Use No 04/13/25 11:21 Years Smoking Packs Smoked per Day Smoking Cessation Date was No - quit smoking greater 04/13/25 11:21 within the last 15 years than 15 years ago Hx Smoking Cessation Date 06/01/79 04/13/25 11:21 Hx Smoking Cessation Counseling Hematologic Medial History Hematologic Hx - laboratory technologist: Hematologic Medical Hx - rn clinical documentation Hx of Blood Transfusion No 04/13/25 11:21 Hx of Transfusion in last 3 No 04/13/25 11:21 Months Date of Last Transfusion (if within last 3 months) Ever experience any problems No 04/13/25 11:21 with transfusion(s)? Specify any problems Hx of Preganancy in last 3 No 04/13/25 11:21 Months Nurse Filling Out Transfusion DSCHRIBER 04/13/25 11:21 & Questions: Date: 04/13/25 04/13/25 11:21 Time: 11:23 04/13/25 11:21 Patient unable to answer at this time (ie. confused, unrespo /Reproduction History /Reproductive History - laboratory technologist: /Reproductive Hx- laboratory technologist Hx Now No 04/13/25 11:21 Gestational Age (in weeks): EDC: Hx Hx Para Hx Section SAB No 04/13/25 11:21 PFS Medical History (Updated 04/13/25 @ 11:31 by Leticia Hurtado) Wears hearing aid Walker as ambulation aid Gastric reflux Leg cramps History of pain when walking History of edema History of echocardiogram History of non-healing wound Osteomyelitis Cavovarus deformity of foot, acquired Failure of outpatient treatment Chronic wound Cellulitis of right lower extremity Osteoporosis Irregular heart beat Hypertension Cellulitis Urine incontinence Bradycardia Myopathy Neuropathy Hyponatremia Le[place] I fracture Cervical stenosis of spinal canal Contusion of spinal cord Fall Physical debility Wears glasses Wears dentures Arthritis Low iron High cholesterol History of hiatal hernia CPAP (continuous positive airway pressure) dependence Former smoker Cardiology follow-up encounter History of stress test CHARLENE (obstructive sleep apnea) Rheumatoid arthritis Hiatal hernia Abnormal EKG Essential hypertension Vitamin D deficiency Diverticulosis Anxiety and depression Rash HLD (hyperlipidemia) Other hereditary and idiopathic neuropathies Chronic ulcer of left foot with fat layer exposed Localized edema Venous insufficiency (chronic) (peripheral) Other specified peripheral vascular diseases 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 exposed CHARLENE (obstructive sleep apnea) Abnormal chest CT Lipodermatosclerosis Cellulitis of right leg Home Medications ?Medication ?Instructions ?Recorded ?Last Taken ?Type atorvastatin 20 mg tablet 20 mg PO QHS Cholesterol 08/2109/17/24 History paroxetine HCl 20 mg tablet 20 mg PO QHS Depression 09/17/24 History aspirin 81 mg tablet,delayed 81 mg PO DAILY Heart 07/0609/18/24 History release (Adult Low Dose Aspirin) cholecalciferol (vitamin D3) 25 50 mcg PO DAILY Supple ment 07/19/22 09/17/24 History mcg (1,000 unit) tablet acetaminophen 325 mg tablet 1,000 mg PO TID PRN PRN Pa in Score 01/11/24 09/18/24 History (Tylenol) 1-10/Temp > 100.7 F lisinopril 2.5 mg tablet 2.5 mg PO 1700 #30 tabs 02/0409/17/24 Rx omeprazole 20 mg capsule,delayed 20 mg PO DAILY Stomac h acid #30 02/26/24 09/18/24 Rx release caps alendronate 70 mg tablet 70 mg PO QWEEK 09/18/2409/05 History amlodipine 5 mg tablet 5 mg PO DAILY 09/18/2409/18 History loperamide 2 mg capsule 2 mg PO Q2H PRN PRN Diarrhea /Loose 09/28/24 Unknown Rx Stools #0 caps ferrous sulfate 325 mg (65 mg 65 mg PO DAILY 04/13/25 Unknown History iron) capsule,extended release flaxseed oil 1,300 mg-omega 3,6,9 1 cap PO DAILY 04/13 Unknown History 845 mg-117 mg-117 mg capsule Allergy/AdvReac Type Severity Reaction Status Date / Time cephalexin (From Keflex) Allergy Unknown rash, Verified 04/13/25 11:15 headaches bee venom protein (honey bee) Allergy Anaphylaxis Verified 04/13/25 11:15 Penicillins Allergy Hives Verified 04/13/25 11:15 pantoprazole (From Protonix) AdvReac Intermediate Thrombocyto Verified 04/13/25 11:15 penia Family History Father Heart disease Mother Colon cancer Sister Colon cancer Brother CVA (cerebral vascular accident) COPD (chronic obstructive pulmonary disease) Surgical History (Updated 04/13/25 @ 11:31 by Leticia Hurtado) Hx of foot surgery History of esophagogastroduodenoscopy (EGD) History of colonoscopy History of cholecystectomy Hx of appendectomy History of hysterectomy History of bilateral knee replacement Social History household members: spouse housing: house number of children: 1 pets and animals: Yes (1 small dog and 2 outdoor cats) pets and animals: cat(s) and dog(s) leisure activities: other history of recent travel: No Smoking Status: Former smoker Tobacco: How many years used: 20 how long ago did patient quit smokin, 1ppd second hand exposure: Yes alcohol intake: never substance use type: does not use Audit: Pertinent Findings Pertinent Findings EKG Perinent findings: EKG 09/22/2024. Sinus bradycardia with sinus arrhythmia. QRS duration has increased compared with EKG on 01 June 2022 Stress test pertinent findings: Stress test 10/14/2022. Normal pharmacologic myocardial perfusion stress test. Preserved ejection fraction Echo (EF%) pertinent findings: Echo 01/09/2024. Ejection fraction 60 to 65%. Recommendation Anesthesia Recommendation Anesthesia recommendation: OPTIMIZED for anesthesia
[2025-04-22] VITALS (9 sets, daily range): BP systolic 108–135; BP diastolic 47–64; PULSE 50–79; RESP 16–20; TEMP 36.3–36.6; O2SAT 94–100; BMI 31.4
--- OUTSIDE RECORDS SUMMARY | 2025-04-22 07:44 | XMS RPT_ITS | CCD ---
Author Organization [facility] Care Team Providers Care Molding Associate Name Role Phone Lianet Sullivan MD Primary Care Provider Dr. Lianet Sullivan Primary Care Provider Dr. Bonilla Pompa Attending Provider Dr. Juanito Scuhlte Referring Provider Dr. Juanito Schulte Emergency Provider Dr. Gideon Cooper Admit Provider Dr. Gideon Cooper Attending Provider Dr. Gideon Cooper Other Provider Dr. Reji Lebron Other Provider Dr. Alfredo Peterson Attending Provider Dr. Alfredo Peterson Other Provider Dr. Cole Shannon Attending Provider Dr. Christopher Trevino Referring Provider Dr. Christopher Trevino Emergency Provider Tasia Sheldon Attending Provider Unavailable Dr. Lianet Sullivan Referring Provider Dr. Napoleon Akbar Attending Provider Dr. Lianet Sullivan Primary Care Provider Dr. Jose Carlos Lieberman Attending Provider Dr. Napoleon Akbar Other Provider Dr. Lianet Sullivan Primary Care Provider Dr. Raffy Napoleon Referring Provider Lianet Sullivan MD Primary Care Provider Dr. Lianet Sullivan Primary Care Provider Raffy, Dr. Bender Attending Provider [phone] Raffy, Dr. Bender Referring Provider [phone] Raffy, Dr. Bender Other Provider NATE BOURGEOIS, DR MARTINI Primary Care Physician Getachew Rounding Nurse, Frankie Unavailable Jayna Renee Unavailable Unavailable Lianet Sullivan MD Primary Care Provider SUNIL BOURGEOIS, DAISY Attending Unavail able NATE BOURGEOIS, DR MARTINI Primary Care Unavailable SUNIL BOURGEOIS, DAISY Attending Unavail able NATE BOURGEOIS, DR MARTINI Primary Care Unavailable HOSPITALIST, NURY Consulting Unavailable MILAGRO BOURGEOIS, DR JIMMIE GOODMAN Admitting Unav jonathanable NATE BOURGEOIS, DR MARTINI Primary Care Unavailable MARSHA BOURGEOIS, JODY Attending Unavailable MARSHA BOURGEOIS, JODY Consulting Unavailable NYDIA LEON MD Consulting Unavailable SUNIL BOURGEOIS, DAISY Consulting Unavail able RUSSELL BOURGEOIS, KIESHA Consulting Unavailable GEGE FOURNIER MD Consulting Unavailable ASHU BOURGEOIS, DR PRETTY Consulting Unavailable DAISY BARBER MD Attending Unavail able NATE BOURGEOIS, DR MARTINI Primary Care Unavailable LIANET SULLIVAN MD Consulting Unavailable JIMMIE BAL DO Admitting Unavailable JIMMIE BAL DO Primary Care Unavailable JIMMIE BAL DO Attending Unavailable PROVIDER, UNKNOWN Consulting Unavailable KRISH VALIENTE MD Admitting Unavailable KRISH VALIENTE MD Primary Care Unavailable KRISH VALIENTE MD Attending Unavailable KRISH VALIENTE MD Primary Care Unavailable KRISH VALIENTE MD Attending Unavailable KRISH VALIENTE MD Admitting Unavailable NYDIA FLOWER DPM Admitting Unavailable NYDIA FLOWER DPM Primary Care Unavailable NYDIA FLOWER DPM Attending Unavailable LIANET SULLIVAN MD Attending Unavailable LIANET SULLIVAN MD Admitting Unavailable LIANET SULLIVAN MD Primary Care Unavailable LIANET SULLIVAN MD Attending Unavailable LIANET SULLIVAN MD Admitting Unavailable LIANET SULLIVAN MD Primary Care Unavailable LIANET SULLIVAN MD Consulting Unavailable LIANET SULLIVAN MD Referring Unavailable KARLSANDEEP DO Admitting Unavailable KARL, SANDEEP DO Primary Care Unavailable KARL, SANDEEP DO Attending Unavailable PROVIDER, UNKNOWN Consulting Unavailable Coombs WINTER INTERN.SCENE SHIFTER, Antolin Unavailable Damion WINTER INTERN.FORM STRIPPER, Sho Unavailable Damion WINTER INTERN.FORM STRIPPER, Sho Unavailable Damion WINTER INTERN.FORM STRIPPER, Sho Unavailable AMBROSE LIU Admitting Unavailable AMBROSE LIU Attending Unavailable TALAMPAS, LIANET D Primary Care Unavailable Damion WINTER INTERN.FORM STRIPPER, Sho Unavailable NATE BOURGEOIS, DR MARTINI Primary Care Unavailable SUNIL BOURGEOIS, DAISY Attending Unavail able SUNIL BOURGEOIS, DAISY Attending Unavail able NATE BOURGEOIS, DR MARTINI Primary Care Unavailable SUNIL BOURGEOIS, DAISY Attending Unavail able NATE BOURGEOIS, DR MARTINI Primary Care Unavailable NATE BOURGEOIS, DR MARTINI Primary Care Unavailable SUNIL BOURGEOIS, DAISY Attending Unavail able NATE BOURGEOIS, DR MARTINI Primary Care Unavailable SUNIL BOURGEOIS, DAISY Attending Unavail able COOMBS, ANTOLIN Attending Unavailable TALAMPAS, LIANET D Primary Care Unavailable COOMBS, ANTOLIN Referring Unavailable TALAMPAS, LIANET D Primary Care Unavailable TALAMPAS, LIANET D Attending Unavailable TALAMPAS, LIANET D Primary Care Unavailable DAMION, SHO Attending Unavailable TALAMPAS, LIANET D Primary Care Unavailable TALAMPAS, LIANET D Attending Unavailable TALAMPAS, LIANET D Primary Care Unavailable TALAMPAS, LIANET D Referring Unavailable TALAMPAS, LIANET D Primary Care Unavailable Nate BOURGEOIS, Dr. Lianet Claire Primary Care Provider Chelo BOURGEOIS, Dr. Shepard Attending Provider Dr. Devyn Whitney MD Referring Provider Sunil BOURGEOIS, Dr. Meade Attending Provider Dr. Daisy Barber MD Referring Provider Malvin BROOKS.SCENE SHIFTER, Antolin Unavailable Talampas, Lianet D Primary Care Unavailable Basali, Ayman Referring Unavailable Basali, Ayman Attending Unavailable Reyes, Achintya Admitting Unavailable Reyes, Achintya Consulting Unavailable Koram, Josette Nia Attending Unavailable Talampas, Lianet D Primary Care Unavailable Bonilla Sheriff Consulting Unavailable Ambrose Liu Consulting Unavailable Koram, Josette Nia Consulting Unavailable Basali, Ayman Attending Unavailable Talampas, Lianet D Primary Care Unavailable Talampas, Lianet D Primary Care Unavailable Daisy Barber Attending Unavailmunira e Daisy Barber Referring Unavailabl e Talampas, Lianet D Primary Care Unavailable Daisy Barber Referring Unavailabl e SylviaiDaisy herrera Attending Unavailabl e Ambrose Liu Attending Unavailable Talampas, Lianet D Primary Care Unavailable Daisy Barber Attending Unavailabl e SylviaiDaisy herrera Referring Unavailabl e Talampas, Lianet D Primary Care Unavailable Reyes, Achintya Admitting Unavailable Reyes, Achintya Consulting Unavailable Talampas, Lianet D Primary Care Unavailable Servando De Dios Attending Unavailable Bonilla Sheriff Consulting Unavailable Ambrose Liu Consulting Unavailable Koram, Josette Nia Consulting Unavailable Servando De Dios Consulting Unavailable Talampas, Lianet D Primary Care Unavailable Daisy Barber Attending Unavailabl e DziDaisy herrera Referring Unavailabl e Talampas, Lianet D Primary Care Unavailable Basali, Ayman Referring Unavailable Basali, Ayman Attending Unavailable Reyes, Achintya Attending Unavailable Nydia Flower Consulting Unavailable Talampas, Lianet D Primary Care Unavailable Maycol Suárez Referring Unavailable Napoleon Akbar Attending Unavailable Talampas, Lianet D Primary Care Unavailable Talampas, Lianet D Referring Unavailable Roof ANTHONY, Robert Sarmiento Attending Unavailable Ambrose Liu Referring Unavailable Talampas, Lianet D Primary Care Unavailable Alfredo Farris Attending Unavailable Servando De Dios Attending Unavailable Servando De Dios Consulting Unavailable Allergies Allergy Classification Reported Allergen(s) Allergy Type Date of Onset Reaction(s) Facility Cephalosporins (antibiotic) (1 source) Cephalexin Drug Allergy 03-15-20 21 Rash, Other: See Comments [facility] Penicillins (antibiotic) (1 source) Penicillins Drug Allergy 07-24-20 05 [facility] Work Phone: (20 sources) Cephalexin; Translations: [CEPHALEXIN] Drug Allergy 03-15-20 21 Rash, Other: See Comments [facility] Work Phone: (15 sources) Penicillins; Translations: [penicillins] Propensity to adverse reactions 07-24-20 05 Hives, rash [facility] Work Phone: Comment on above: rash (16 sources) BEE STINGS [Other] Propensity to adverse reactions 09-16-20 05 Intolerance [facility] Work Phone: (8 sources) Bee/Wasp/Ant venom Allergy to substance 10-11-19 21 Anaphylaxis, Bee Stings [facility] (7 sources) Penicillins Propensity to adverse reactions 10-11-19 21 Hives [facility] (7 sources) bee venom protein (honey bee) Allergy to substance 05-28-20 22 Anaphylaxis [facility] (20 sources) Penicillins Propensity to adverse reactions 07-24-20 05 [facility] Work Phone: (7 sources) levoFLOXacin; Translations: [levofloxacin] Drug Allergy rash [facility] (5 sources) Penicillins Propensity to adverse reactions 07-24-20 05 [facility] Work Phone: (7 sources) Bee Sting; Translations: [BEE STING] Allergy to substance 10-11-19 21 Anaphylaxis, Other: See Comments [facility] (1 source) pantoprazole Drug Allergy 09-18-20 24 Thrombocytopenia [facility] (1 source) Cephalexin Drug Allergy 04-13-20 25 [facility] (1 source) pantoprazole Drug Allergy 04-13-20 25 [facility] (1 source) Penicillins Drug allergy (disorder) 04-13-20 25 [facility] (1 source) bee venom protein (honey bee) Drug allergy (disorder) 04-13-20 [facility] Medications Current Medications Medication Drug Class(es) Dates Sig (Normalized) Sig (Original) acetaminophen 325 mg / oxyCODONE hydrochloride 5 mg oral tablet (1 source) Opioid Agonist Start: 04-12-2022 take 1 tablet by mouth every six hours as needed Oxycodone-Acetam inophen Active 1 TABLET PO EVERY 6 HOURS NEEDED 22 02April 12, 2022 alendronic acid 70 mg oral tablet (20 sources) Bisphosphonate Start: 07-11-2023 End: 01-11-2025 take 1 tablet by mouth every week alendronate (FOSAMAX) 70 mg tablet Indications: Osteopenia of neck of right femur Take 1 tablet by mouth one time a week. Take with a full glass of water, on an empty stomach; do NOT lie down for 30minutes. 12 tablet 3 01/11/2025 Active amLODIPine 5 mg oral tablet (20 sources) Dihydropyridine Calcium Channel Maikel Start: 07-12-2024 take 1 tablet by mouth once daily amLODIPine (NORVASC) 5 mg tablet Take 1 tablet by mouth once daily. As directed 90 tablet 3 07/12/2024 Active Start: 02-26-2024 End: 09-18-2024 take 2 tablets by mouth once daily Amlodipine 2.5 mg Tablet Discontinued 5 mg PO DAILY February 26, 2024 12:00am September 18, 2024 5:13pm Start: 12-28-2023 End: 07-12-2024 amLODIPine 2.5 mg oral table t Dose : 2.5 mg = 1 tab(s), Oral, qDay Start Date: 12/28/23 Status: Ordered Repeat number: 1 Start: 02-17-2019 End: 03-08-2024 take 1 tablet by mouth once daily Amlodipine 2.5 MG tablet Discontinued 2.5 mg PO DAILY February 17, 2019 12:00am February 26, 2024 6:24pm Comment on above: Take 1 tablet by boy th once daily. aspirin 81 mg delayed release oral tablet (20 sources) Platelet Aggregation Inhibitor, Nonsteroidal Anti-inflammatory Drug Start: 07-19-2022 aspirin 81 mg oral delayed release tablet Dose : 81 mg = 1 tab(s), Oral, qDay Start Date: 12/28/23 Status: Ordered Repeat number: 1 Start: 02-17-2019 End: 07-19-2022 Aspirin 325 MG tablet Discon tinued 81 mg PO DAILY February 17, 2019 10:01pm July 19, 2022 1:56pm Start: 02-17-2019 End: 07-19-2022 take 81 mg by mouth once daily Aspirin Discontinued 81 MG PO DAILY February 17, 2019 10:01pm July 19, 2022 1:56pm Start: 09-11-2016 End: 02-17-2019 take 1 tablet by mouth twice daily Aspirin 325 MG tablet Discontinued 325 mg PO TWICE A DAY 60 September 11, 2016 1:00am February 17, 2019 10:01pm Start: 08-23-2016 End: 09-11-2016 take 1 tablet by mouth once daily Aspirin (Adult Low Dose Aspirin Ec) [address] Discontinued 81 mg PO DAILY August 23, 2016 1:00am September 11, 2016 1:59pm Start: 12-15-2015 End: 01-03-2016 take 1 tablet by mouth once daily Aspirin (Adult Low Dose Aspirin Ec) [address] Tablet[address]Dr Discontinued 81 mg PO DAILY December 15, 2015 1:00am January 03, 2016 6:44am Start: 07-24-2005 ASPIRIN 81 MG TAB Take 81 mg by mouth once daily. No instructions to hold [facility] /2 0 07/24/2005 Active Comment on above: Take one (1) tablet daily . atorvastatin 20 mg oral tablet (20 sources) HMG-CoA Reductase Inhibitor Start: 016 End: 025 take 1 tablet by mouth once daily in the evening atorvastatin (LIPITOR) 20 mg tablet Indications: Pure hypercholesterolemia Take one (1) tablet by mouth every evening at 9pm 90 tablet 3 03/29/2025 Active Comment on above: Take one (1) tablet by mouth every evening at 9pm cholecalciferol 0.025 mg oral capsule (20 sources) Vitamin D Start: 023 take 1 capsule by mouth once daily Cholecalciferol, Vitamin D3, 25 mcg (1,000 unit) cap Take 1 capsule by mouth once daily. 07/11/2023 Active Start: 07-19-2022 take 1 tablet by boy once daily Cholecalciferol (Vitamin D3) 25 mcg (1,000 unit) tablet Active 50 ug PO DAILY July 19, 2022 1:59pm Start: 12-15-2015 End: 07-19-2022 take 2 tablets by mouth once daily Cholecalciferol (Vitamin D3) 1,000 UNIT tablet Discontinued 2000 U PO DAILY December 15, 2015 1:00am July 19, 2022 2:00pm Start: 12-15-2015 End: 07-19-2022 take 2000 [IU] by mouth once daily Cholecalciferol (Vitamin D3) Active 2000 UNIT PO DAILY July 19, 2022 1:59pm Start: 12-29-2014 End: 07-11-2023 take 2 capsules by mouth once daily Cholecalciferol, Vitamin D3, 1,000 unit cap Indications: Unspecified vitamin D deficiency Take 2 capsules by mouth once daily. 0 12/29/2014 07/11/2023 Discontinued Comment on above: Take 2 capsules by m outh once daily. docusate sodium 50 mg / sennosides, chcf 8.6 mg oral tablet (8 sources) Start: 01-11-2024 End: 02-26-2024 take 1 tablet by mouth twice daily docusate-senna 50 mg-8.6 mg oral tablet Dose = 1 tab(s), Oral, BID, 0 Refill(s) Start Date: 01/11/24 Status: Ordered Repeat number: 1 doxycycline hyclate 100 mg oral capsule (8 sources) Tetracycline-class Drug Start: 09-27-2024 take 1 capsule by mouth twice daily Doxycycline Hyclate 100 mg capsule Active 100 mg PO TWICE A DAY 74 September 27, 2024 1:00am Start: 09-18-2024 End: 09-27-2024 take 1 capsule by mouth every twelve hours Doxycycline Hyclate 100 mg capsule Discontinued 100 mg PO Q12H September 18, 2024 1:00am September 27, 2024 2:11pm Start: 04-28-2024 End: 05-08-2024 take 1 tablet by mouth twice daily doxycycline (VIBRA-TABS) 100 mg tablet Indications: Open wound of right foot excluding one or more toes, initial encounter Take 1 tablet by mouth two times a day for 10 days. 20 tablet 0 04/28/2024 05/08/2024 Active Start: 06-17-2022 End: 06-28-2022 take 1 tablet by mouth twice daily at mealtime doxycycline (VIBRA-TABS) 100 mg tablet Indications: Cellulitis of right lower extremity Take 1 tablet by mouth twice daily for 7 days. Start taking after completing previous prescription. Take with food 14 tablet 0 06/21/2022 06/28/2022 Active Comment on above: Take 1 tablet by boy twice daily for 10 days. Take 1 tablet by boy twice daily for 7 days. Start taking after completing previous prescription. Take with food Take 1 tablet by boy twice daily for 5 days. Start taking after completing previous prescription. Take with food 0.4 ml enoxaparin sodium 100 mg/ml prefilled syringe (2 sources) Low Molecular Weight Heparin Start: 09-28-2024 Enoxaparin 40 mg/0.4 mL Syringe Active 40 mg SC DAILY September 28, 2024 1:00am Start: 01-11-2024 End: 03-08-2024 Enoxaparin (Lovenox) 40 mg/0 .4 mL syringe Discontinued 40 mg SC DAILY January 11, 2024 12:00am March 08, 2024 9:52am [id number] 0.3 ml EPINEPHrine 1 mg/ml auto-injector (20 sources) alpha-Adrenergic Agonist, beta-Adrenergic Agonist, Catecholamine Start: 05-09-2021 End: 01-11-2024 Epinephrine 0.3 mg/0.3 mL Auto-Injector Discontinued 0.3 mg IM Q10M as needed for Anaphylaxis May 09, 2021 12:00am January 11, 2024 1:44pm Start: 10-26-2019 End: 01-11-2025 EPINEPHrine (EPIPEN 2-MAKI) 0 .3 mg/0.3 mL auto-injector Indications: H/O bee sting allergy Inject 0.3 mL intramuscularly as needed. 1 each 01/11/2025 Active Comment on above: Inject 0.3 mL intram uscularly as needed. Flaxseed Oil oil (7 sources) Flaxseed Oil oil Last dose 01/05 due to surgery Active Flaxseed Oil oil Active Food Supplemt, Lactose-Reduced (Ensure Plus High Protein) 0.08 gram-1.5 kcal/mL Liquid (1 source) Start: 09-28-2024 Food Supplemt, Lactose-Reduced (Ensure Plus High Protein) 0.08 gram-1.5 kcal/mL Liquid Active 120 mL PO 3 TIMES DAILY WITH MEALS 0 September 28, 2024 1:00am hydroCHLOROthiazide 50 mg / triamterene 75 mg oral tablet (1 source) Potassium-sparin g Diuretic, Thiazide Diuretic Start: 08-23-2016 take 1 tablet by mouth once daily Triamterene-Hydroch lorothiazid Active 1 TABLET PO DAILY August 23, 2016 4:10pm lisinopril 2.5 mg oral tablet (20 sources) Angiotensin Converting Enzyme Inhibitor Start: 02-26-2024 End: 01-11-2025 take 1 tablet by mouth once daily lisinopril 2.5 mg tablet Indications: Primary hypertension Take 1 tablet by mouth once daily. Fill this RX when due; cancel refills on prior RX 90 tablet 3 01/11/2025 Active loperamide hydrochloride 2 mg oral capsule (1 source) Opioid Agonist Start: 09-28-2024 take 1 capsule by mouth every two hours as needed for diarrhea Loperamide 2 mg Capsule Active 2 mg PO EVERY 2 HOURS NEEDED as needed for Diarrhea/Loose Stools 0 September 28, 2024 1:00am melatonin 3 mg oral tablet (8 sources) Start: 01-11-2024 melatonin 3 mg oral tablet Dose : 3 mg = 1 tab(s), Oral, qHS, PRN Sleep, 0 Refill(s) Start Date: 01/11/24 Status: Ordered Repeat number: 1 Start: 01-11-2024 End: 03-08-2024 take 1 capsule by mouth at bedtime as needed for sleep Melatonin 3 mg capsule Discontinued 3 mg PO AT BEDTIME as needed for Sleep January 11, 2024 12:00am March 08, 2024 9:52am Menthol / Zinc Oxide (1 source) Start: 09-28-2024 Menthol-Zinc O xide (Calmoseptine) 0.44-20.6 % Ointment Active 1 NMA TOPICAL TWICE A DAY 0 September 28, 2024 1:00am Please contact the information source for Protocol details. methotrexate 2.5 mg oral tablet (20 sources) Folate Analog Metabolic Inhibitor Start: 07-19-2022 take 17.5 mg by mouth every week Methotrexate Sodium Active 17.5 MG PO EVERY WEEK July 19, 2022 12:00am Start: 05-09-2021 methotrexate A ctive May 09, 2021 1:57pm Start: 05-09-2021 End: 07-19-2022 methotrexate Discontinued 2. 5 mg EVERY WEEK May 09, 2021 12:00am July 19, 2022 2:00pm Start: 05-09-2021 End: 07-19-2022 methotrexate Discontinued 2. 5 MG EVERY WEEK May 09, 2021 12:00am July 19, 2022 2:00pm Start: 05-09-2021 End: 07-19-2022 methotrexate Discontinued 2. 5 MG EVERY WEEK May 08, 2021 11:00pm July 19, 2022 1:00pm Start: 05-09-2021 methotrexate A ctive 2.5 MG EVERY WEEK May 09, 2021 12:00am Start: 05-09-2021 methotrexate A ctive May 09, 2021 12:00am Start: 03-21-2020 End: 07-11-2023 take 7 tablets by mouth every week methotrexate 2.5 mg tablet 7 tablets Po once a week 0 03/21/2020 07/11/2023 Discontinued Comment on above: 7 tablets Po once a week Multivitamin preparation (14 sources) Start: 12-15-2015 Multivitamin Active 1 EACH PO DAILY December 15, 2015 4:03pm Start: 12-15-2015 Multivitamin A ctive 1 EACH PO DAILY December 15, 2015 12:00am Start: 12-15-2015 Multivitamin A ctive 1 EACH PO DAILY December 15, 2015 1:00am Start: 03-23-2012 take 1 capsule by mo ut once daily Multivitamin Dose = 1 cap(s), Oral, qDay, 0 Refill(s) Start Date: 03/23/12 Status: Ordered Repeat number: 1 Start: 03-23-2012 take 1 capsule by mo uth once daily Multivitamin Dose = 1 cap(s), Oral, qDay, 0 Refill(s) Start Date: 03/23/12 Status: Ordered MULTIVITAMIN TAB (20 sources) Start: 07-24-2005 MULTIVITAMIN T AB Take 1 tablet by mouth once daily. Last dose 01/05 due to surgery 0 07/24/2005 Active Start: 07-24-2005 MULTIVITAMIN T AB Take one(1) tablet daily. 0 07/24/2005 Active Comment on above: Take one(1) tablet d aily. mupirocin 0.02 mg/mg topical ointment (3 sources) RNA Synthetase Inhibitor Antibacterial Start: 07-05-2022 End: 07-15-2022 mupirocin (BACTROBAN) 2 % ointment Indications: Cellulitis of right lower extremity Apply 1 application to affected area twice daily for 10 days. Apply to open area on back of right calf 15 g 1 07/05/2022 07/15/2022 Active Start: 06-21-2022 End: 07-01-2022 mupirocin (BACTROBAN) 2 % oi ntment Indications: Cellulitis of right lower extremity Apply 1 application to affected area twice daily for 10 days. Apply to open area on back of right calf 15 g 1 06/21/2022 07/01/2022 Active Comment on above: Apply 1 application to affected area twice daily for 10 days. Apply to open area on back of right calf nystatin [id number] unt/ml oral suspension (10 sources) Polyene Antifungal Start: 09-28-2024 take [id number] [IU] by mouth four times daily Nystatin 100,000 unit/mL Suspension Active [id number] U PO 4 TIMES DAILY 0 September 28, 2024 1:00am Continue for 7 days Start: 09-28-2024 Nystatin (Nyam yc) 100,000 unit/gram Powder Active 1 NMA TOPICAL TWICE A DAY 0 September 28, 2024 1:00am Please contact the information source for Protocol details. Start: 01-11-2024 take 1 dose by mouth every six hours nystatin 100,000 units/mL oral suspension Dose : 500,000 unit(s) = 5 mL, Swish & Swallow, q6h, 0 Refill(s) Start Date: 01/11/24 Status: Ordered Repeat number: 1 Start: 01-11-2024 End: 02-26-2024 Nystatin 100,000 unit/mL nazia pension Discontinued [id number] U PO DAILY January 11, 2024 12:00am February 26, 2024 6:27pm administer 1/2 of dose in each side of the mouth omeprazole 20 mg delayed release oral capsule (20 sources) Proton Pump Inhibitor Start: 03-15-2021 End: 03-29-2025 take 1 capsule by mouth once daily before breakfast omeprazole (PRILOSEC) 20 mg capsule Take 1 capsule by mouth daily before breakfast. 1/2 hr before meal. 90 capsule 3 03/29/2025 Active Comment on above: Take 1 capsule by mo [facility] daily before breakfast. 1/2 hr before meal. oxyCODONE hydrochloride 5 mg oral tablet (1 source) Opioid Agonist Start: 09-28-2024 take 1 tablet by mouth every four hours as needed for pain Oxycodone 5 mg Tablet Active 5 mg PO EVERY 4 HOURS NEEDED as needed for Pain Score 4-10 6 2 September 28, 2024 PARoxetine hydrochloride 20 mg oral tablet (20 sources) Serotonin Reuptake Inhibitor Start: 12-15-2015 take 1 tablet by mouth once daily Paroxetine Hcl 20 MG tablet Active 20 mg PO DAILY December 15, 2015 1:00am Start: 03-23-2012 End: 01-11-2025 take 1 tablet by mouth once daily PARoxetine (PAXIL) 20 mg tablet Indications: Anxiety state Take 1 tablet by mouth once daily. 90 tablet 3 01/11/2025 Active Comment on above: Take 1 tablet by [facility] once daily. polyethylene glycol 3350 97684 mg powder for oral solution (8 sources) Osmotic Laxative Start: 4 End: 4 Miralax Powder Packet Oral, qDay, 0 Refill(s) Start Date: 01/11/24 Status: Ordered Repeat number: 1 solifenacin succinate 10 mg oral tablet (3 sources) Cholinergic Muscarinic Antagonist Start: 5 take 1 tablet by mouth once daily solifenacin (VESICARE) 10 mg tablet Indications: Urge incontinence of urine , Irritable bladder Take 1 tablet by mouth once daily. 90 tablet 1 01/11/2025 Active SUNFLOWER OIL-PARSLEY SEED OIL ORAL (4 sources) SUNFLOWER OIL-PARSLEY SEED OIL ORAL Take 1 Dose by mouth once daily. Last dose 01/05 due to surgery Active Vitamin D3 (7 sources) Start: 4 Vitamin D3 Dose : 50 mcg = 1 tab(s), Oral, qDay Start Date: 12/28/23 Status: Ordered Repeat number: 1 Start: 12-28-2023 Vitamin D3 Dos e : 50 mcg = 1 tab(s), Oral, qDay Start Date: 12/28/23 Status: Ordered vitamin e 90 mg oral capsule (1 source) Start: 12-15-2015 take 200 [IU] by mouth once daily Vitamin E Active 200 UNIT PO DAILY December 15, 2015 4:03pm Completed/Discontinued Medications Medication Drug Class(es) Dates Sig (Normalized) Sig (Original) acetaminophen 500 mg oral tablet (18 sources) Start: 01-07-2025 End: 01-08-2025 take 1 dose by mouth every four hours as needed for pain 1,000 mg, ORAL, NEEDED, 1 dose, Starting on Fri01/07/25 at 1521, Until 01/08/25 at 0303, Mild Pain (1-3) - Enteral, If not given any other Acetaminophen containing product 4 hours prior, If ordered PRN for pain, patient/guardian may elect to receive this medication for higher pain levels INSTEAD of the opioid, if preferred: Yes, Recovery or Phase I (only) Start: 01-11-2024 Tylenol Dose : 1,000 mg = 2 tab(s), Oral, TID, PRN Pain, scale 1-6, 0 Refill(s) Start Date: 01/11/24 Status: Ordered Repeat number: 1 Start: 01-11-2024 Acetaminophen (Tylenol) 325 mg Tablet Active 1000 mg PO 3 TIMES DAILY NEEDED as needed for Pain Score 1-10/Temp > 100.7 F January 11, 2024 12:00am Start: 06-04-2022 End: 01-11-2024 Acetaminophen (Tylenol) 325 mg Tablet Discontinued 650 mg PO EVERY 6 HOURS NEEDED as needed for Pain Score 1-10/Temp > 100.7 F 0 June 04, 2022 12:00am January 11, 2024 1:47pm Start: 06-04-2022 take 2 tablets by mo uth every six hours as needed Acetaminophen (Tylenol) 325 mg Tablet Active 650 MG PO EVERY 6 HOURS NEEDED 0 June 04, 2022 12:00am take 1 tablet by boy th every eight hours as needed acetaminophen (TYLENOL 8 HOUR) 650 mg CR tablet Take 650 mg by mouth every 8 hours as needed for pain. Active bisacodyl 10 mg rectal suppository (14 sources) Stimulant Laxative Start: 01-11-2024 End: 02-26-2024 Dulcolax Laxative 10 mg rectal suppository Dose : 10 mg = 1 supp, Rectal, qDay, PRN Constipation, 0 Refill(s) Start Date: 01/11/24 Status: Ordered Repeat number: 1 Start: 01-30-2021 End: 06-17-2022 Bisacodyl (DULCOLAX) 5 mg ta b Use as directed for Miralax / Gatorade Bowel Prep Kit 4 tablet 0 01/30/2021 06/17/2022 Discontinued Comment on above: Use as directed for Miralax / Gatorade Bowel Prep Kit calcium carbonate 1250 mg / cholecalciferol 0.01 mg chewable tablet (20 sources) Vitamin D Start: 12-15-2015 End: 01-11-2024 Calcium Carbonate-Vitamin D3 1 EACH tablet,chewable Discontinued 1 {tbl} PO DAILY December 15, 2015 1:00am January 11, 2024 1:43pm Start: 12-15-2015 take 1 tablet by boy th once daily Calcium Carbonate-Vitamin D3 Active 1 TABLET PO DAILY December 15, 2015 1:00am Start: 07-24-2005 End: 01-06-2025 CALCIUM 500+D 500 MG-200 UNI T TAB Take by mouth. Pt reports not taking PACC 4/2 0 07/24/2005 01/06/2025 Discontinued (Discontinued by Patient) dexamethasone 2 mg oral tablet (8 sources) Corticosteroid Start: 01-11-2024 dexAMETHasone 2 mg oral tablet Dose : 2 mg = 1 tab(s), Oral, BID, Continue to wean dose: 2 mg BID x48 hrs (until 4/9 PM dose), then decrease to 1 mg BID x48 hrs, then 1 mg daily x48hrs, then 1 mg every other day x 48hrs, then stop., 0 Refill(s) Start Date: 01/11/24 Status: Ordered Repeat number: 1 Start: 01-11-2024 End: 02-26-2024 take 1 tablet by mouth twice daily Dexamethasone 2 mg tablet Discontinued 2 mg PO TWICE A DAY January 11, 2024 12:00am February 26, 2024 6:25pm famotidine 40 mg oral tablet (11 sources) Histamine-2 Receptor Antagonist Start: 07-19-2022 End: 07-31-2022 take 1 tablet by mouth once daily Famotidine 40 mg tablet Discontinued 40 mg PO DAILY July 19, 2022 12:00am July 31, 2022 3:19pm Start: 05-21-2021 End: 06-17-2022 take 1 tablet by mouth once daily famotidine (PEPCID) 40 mg tablet Take 1 tablet by mouth once daily. 30 tablet 0 05/21/2021 06/17/2022 Discontinued Comment on above: Take 1 tablet by boy once daily. 1 ml fentaNYL 0.05 mg/ml injection (1 source) Opioid Agonist Start: 01-08-20 End: 01-09-20 25 mcg, INTRAVENOUS, EVERY 10 MINUTES NEEDED, 4 doses, Starting on Fri01/07/25 at 1521, Until 01/08/25 at 0303, FIRST LINE THERAPY for pain score 1 or greater, USE FOR MILD PAIN (1-3) ONLY IF PATIENT IS UNABLE TO TOLERATE ORAL THERAPY, Recovery or Phase I (only) ferrous sulfate 325 mg oral tablet (20 sources) Start: 05-09-20 End: 01-11-20 take 1 tablet by mouth once daily Ferrous Sulfate (Iron) 325 mg (65 mg iron) Tablet Discontinued 325 mg PO DAILY May 09, 2021 12:00am January 11, 2024 1:45pm Comment on above: Take 325 mg by mouth daily with breakfast. Fluad Quad (65yr up)(PF) 60 mcg (15 mcg x 4)/0.5mL IM syringe (flu vac (1 source) Start: 10-09-19 End: 10-09-19 Fluad Quad (65yr up)(PF) 60 mcg (15 mcg x 4)/0.5mL IM syringe (flu vac Discontinued 60 MCG IM ONCE 0.5 October 09, 2021 1:36pm October 09, 2021 2:17pm fluticasone propionate 0.05 mg/actuat metered dose nasal spray (20 sources) Corticosteroid Start: 05-09-20 End: 01-11-20 Fluticasone Propionate 50 mcg/actuation spray,suspension Discontinued 2 NMA INTRANASAL DAILY as needed for nasal congestion July 19, 2022 1:59pm January 11, 2024 1:45pm Start: 05-09-2021 End: 07-19-2022 Fluticasone Propionate Activ e 2 SPRAY INTRANASAL DAILY July 19, 2022 1:59pm Start: 05-03-2020 take 2 spray(s) nasa l route once daily as needed fluticasone (FLONASE) 50 mcg/actuation nasal spray Use 2 Sprays in each nostril once daily. As needed. Rinse mouth after use. 05/03/2020 Active Comment on above: Use 2 Sprays in each nostril once daily. As needed. Rinse mouth after use. folic acid 1 mg oral tablet (20 sources) Start: 05-09-2021 take 2 mg by mouth once daily Folic Acid Active 2 MG PO DAILY May 09, 2021 12:00am Start: 03-22-2020 End: 01-11-2024 take 2 tablets by mouth once daily Folic Acid 1 mg Tablet Discontinued 2 mg PO DAILY May 09, 2021 12:00am January 11, 2024 1:45pm Comment on above: Take 2 mg by mouth o nce daily. 12 hr guaiFENesin 600 mg extended release oral tablet (8 sources) Start: 9 End: 0 take 1 tablet by mouth twice daily Guaifenesin 600 MG tablet Discontinued 600 mg PO TWICE A DAY February 23, 2019 12:00am October 27, 2019 2:45pm heparin 5000 units/mL injection (7 sources) Start: 4 inject 1 mL by subcutaneous injection every eight hours heparin 5000 units/mL injection Dose : 5,000 unit(s) = 1 mL, Subcutaneous, q8h, 0 Refill(s) Start Date: 01/11/24 Status: Ordered Repeat number: 1 Start: 01-11-2024 inject 1 mL by subcu taneous injection every eight hours heparin 5000 units/mL injection Dose : 5,000 unit(s) = 1 mL, Subcutaneous, q8h, 0 Refill(s) Start Date: 01/11/24 Status: Ordered ibuprofen 600 mg oral tablet (8 sources) Nonsteroidal Anti-inflammatory Drug Start: 12-15-2015 End: 01-03-2016 take 1 tablet by mouth at bedtime Ibuprofen 600 MG tablet Discontinued 600 mg PO AT BEDTIME December 15, 2015 1:00am January 03, 2016 6:44am levoFLOXacin 750 mg oral tablet (12 sources) Quinolone Antimicrobial Start: 06-04-2022 End: 07-19-2022 take 1 tablet by mouth once daily Levofloxacin 750 mg tablet Discontinued 750 mg PO DAILY June 09, 2022 12:00am July 19, 2022 2:00pm Comment on above: Take 750 mg by mouth once daily. 10 ml lidocaine hydrochloride 10 mg/ml injection (1 source) Antiarrhythmic, Amide Local Anesthetic Start: 01-07-2025 End: 01-08-2025 2 mg (0.2 mL), INTRADERMAL, NEEDED, 1 dose, Starting on Fri01/07/25 at 1225, Until 01/08/25 at 0303, See admin instructions, May use prior to starting IV, Preprocedure linseed oil 1000 mg oral capsule (2 sources) Start: 09-18-2024 End: 09-28-2024 take 1 capsule by mouth once daily Flaxseed Oil 1,000 mg capsule Discontinued 1000 mg PO DAILY September 18, 2024 1:00am September 28, 2024 3:21pm Start: 07-23-2023 End: 01-11-2024 take 1 capsule by mouth once daily Flaxseed Oil 1,000 mg capsule Discontinued 1000 mg PO DAILY July 23, 2023 12:00am January 11, 2024 1:45pm Miconazole (8 sources) Azole Antifungal Start: 01-11-2024 miconazole 2% topical powder Apply 1 corbin, Topical, BID, 0 Refill(s), Powder, 89.6 Start Date: 01/11/24 Status: Ordered Repeat number: 1 Start: 01-11-2024 miconazole 2% topical powder Apply 1 corbin, Topical, BID, 0 Refill(s), Powder, 89.6 Start Date: 01/11/24 Status: Ordered Start: 01-11-2024 End: 02-26-2024 Miconazole Nitrate 2 % powde r Discontinued 1 NMA TOPICAL TWICE A DAY January 11, 2024 12:00am February 26, 2024 6:26pm Multivitamin 1 EACH tablet (1 source) Start: 12-15-2015 End: 09-18-2024 Multivitamin 1 EACH tablet Discontinued 1 NMA PO DAILY December 15, 2015 1:00am September 18, 2024 5:17pm naproxen 250 mg oral tablet (19 sources) Nonsteroidal Anti-inflammatory Drug End: 01-06-2025 naproxen (NAPROSYN) 250 mg tablet Take 250 mg by mouth two times a day with meals. Pt reports not taking PACC 01/0501/06/2025 Discontinued (Discontinued by Patient) Ondansetron (1 source) Serotonin-3 Receptor Antagonist Start: 01-07-2025 End: 01-08-2025 take 1 tablet by mouth every six hours as needed ondansetron 4 mg tab(s) (ZOFRAN) predniSONE 20 mg oral tablet (8 sources) Start: 02-23-2019 End: 03-05-2019 take 2 tablets by mouth once daily Prednisone 20 MG tablet Discontinued 40 mg PO DAILY@0800 February 23, 2019 12:00am March 05, 2019 9:06am Start: 02-23-2019 End: 03-05-2019 take 40 mg by mouth once daily Prednisone Discontinued 40 MG PO DAILY@0800 February 23, 2019 12:00am March 05, 2019 9:06am 1000 ml sodium chloride 9 mg/ml injection (3 sources) Start: 01-07-2025 End: 01-08-2025 take 30 mL intravenously every hour 30 mL/hr, INTRAVENOUS, CONTINUOUS, Starting on Fri01/07/25 at 1530, Until 01/08/25 at 0303, Recovery or Phase I (only) Start: 01-07-2025 End: 01-08-2025 20 mL, INTRAVENOUS, NEEDE D, Starting on Fri01/07/25 at 1225, Until 01/08/25 at 0303, See admin instructions, If no compatible primary is already running, infuse NaCl 0.9% as primary to flush tubing after non-chemotherapy, non-immunotherapy intermittent infusions. Administer at the same rate as intermittent infusion. Select the Flush Bag file on smart pump., Preprocedure sulfamethoxazole 800 mg / trimethoprim 160 mg oral tablet (2 sources) Dihydrofolate Reductase Inhibitor Antibacterial, Sulfonamide Antimicrobial Start: 06-12-2022 End: 06-22-2022 take 1 tablet by mouth twice daily sulfamethoxazole-trimethoprim (BACTRIM DS) 800-160 mg per tablet Take 1 tablet by mouth twice daily for 10 days. 20 tablet 0 06/12/2022 06/17/2022 Discontinued Comment on above: Take 1 tablet by boy th twice daily for 10 days. Turmeric Root Extract 500 mg capsule (1 source) Start: 07-23-2023 End: 01-11-2024 take 1 capsule by mouth twice daily Turmeric Root Extract 500 mg capsule Discontinued 500 mg PO TWICE A DAY July 23, 2023 12:00am January 11, 2024 1:47pm Vitamin B Complex (Vitamins B Complex) capsule (1 source) Start: 09-18-2024 End: 09-28-2024 Vitamin B Complex (Vitamins B Complex) capsule Discontinued 1 NMA PO DAILY September 18, 2024 1:00am September 28, 2024 3:24pm Problems Active Problems Problem Classification Problem Date Documented Da te Episodic/Chronic Abdominal hernia (5 sources) Hiatal hernia; Translations: [Diaphragmatic hernia without obstruction or gangrene] 07-31-2022 Episodic Acute cerebrovascular disease (1 source) Cerebral infarction, unspecified; Translations: [Cerebral infarction, unspecified] Onset: 5 Chronic Allergic reactions (4 sources) Allergy status to penicillin; Translations: [H/O: non-drug allergy] Onset: 4 01-11-2025 Episodic Anxiety disorders (20 sources) Anxiety state; Translations: [Generalized anxiety disorder] Onset: 5 09-07-2015 Chronic Cardiac dysrhythmias (8 sources) Sinus bradycardia; Translations: [Bradycardia, unspecified] Episodic Comment on above: Asymptomatic Chronic kidney disease (20 sources) Chronic kidney disease stage 3; Translations: [Chronic kidney disease (CKD), stage III (moderate)] Onset: 8 01-29-2018 Chronic Chronic kidney disease (1 source) Chronic kidney disease; Translations: [Stage 3a chronic kidney disease (HCC)] Onset: 8 Chronic ulcer of skin (20 sources) Chronic ulcer of foot; Translations: [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 exposed] Onset: 5 Chronic Deficiency and other anemia (1 source) Anemia due to blood loss; Translations: [Iron deficiency anemia secondary to blood loss (chronic)] 11-25-2024 Chronic Deficiency and other anemia (1 source) Iron deficiency anemia secondary to blood loss (chronic); Translations: [Blood loss anemia] Onset: 5 Chronic Deficiency and other anemia (1 source) Acquired pancytopenia; Translations: [Other pancytopenia] 03-06-2024 Chronic Disorders of lipid metabolism (20 sources) Pure hypercholesterolemia; Translations: [Pure hypercholesterolemia, unspecified] Onset: 5 12-03-2012 Chronic E Codes: Fall (10 sources) Falling injury; Translations: [Unspecified fall, initial encounter] Onset: 4 04-20-2022 Episodic Esophageal disorders (6 sources) Gastroesophageal reflux disease; Translations: [Gastro-esophageal reflux disease without esophagitis] Onset: 5 01-07-2025 Chronic Essential hypertension (20 sources) Hypertensive disorder; Translations: [Essential (primary) hypertension] Onset: 3 10-01-2021 Chronic Fluid and electrolyte disorders (1 source) Hyponatremia; Translations: [Hypo-osmolality and hyponatremia] 10-07-2024 Episodic Fracture of upper limb (15 sources) Fracture of surgical neck of humerus; Translations: [Unspecified displaced fracture of surgical neck of right humerus, initial encounter for closed fracture] 04-20-2022 Episodic Genitourinary symptoms and ill-defined conditions (20 sources) Urge incontinence of urine; Translations: [Urge incontinence] Onset: 0 08-18-2014 Chronic Genitourinary symptoms and ill-defined conditions (1 source) Retention of urine; Translations: [Retention of urine, unspecified] 03-06-2024 Episodic Infective arthritis and osteomyelitis (except that caused by tuberculosis or sexually transmitted disease) (8 sources) Osteomyelitis; Translations: [Osteomyelitis, unspecified] Onset: 4 01-07-2025 Chronic Menopausal disorders (20 sources) Menopausal symptom; Translations: [Menopausal and female climacteric states] Onset: 1 11-21-2010 Chronic Mood disorders (7 sources) Depressive disorder; Translations: [Depression, unspecified] Chronic Mycoses (1 source) Candidiasis of mouth; Translations: [Candidal stomatitis] 03-06-2024 Episodic Open wounds of extremities (1 source) Open wound of foot, excluding toe(s); Translations: [Unspecified open wound, right foot, initial encounter] 04-28-2024 Episodic Other aftercare (2 sources) Long-term current use of drug therapy; Translations: [Other senior care (current) drug therapy] 07-12-2024 Episodic Other aftercare (1 source) Other termite treater (current) drug therapy; Translations: [Encounter for long-term current use of medication] Onset: 5 Episodic Other bone disease and musculoskeletal deformities (20 sources) 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; Translations: [Other hypertrophic osteoarthropathy, multiple sites] Onset: 4 12-09-2013 Chronic Other bone disease and musculoskeletal deformities (1 source) Other hypertrophic osteoarthropathy, multiple sites; Translations: [Osteoarthrosis multiple sites, 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 generalized] Onset: 4 Chronic Other bone disease and musculoskeletal deformities (2 sources) Osteopenia; Translations: [Other specified disorders of bone density and structure, right thigh] 04-08-2024 Episodic Other bone disease and musculoskeletal deformities (1 source) Other specified disorders of bone density and structure, right thigh; Translations: [Osteopenia of neck of right femur] Onset: 5 Episodic Other connective tissue disease (2 sources) Hand pain; Translations: [Pain in left hand] Episodic Other connective tissue disease (1 source) Spasm; Translations: [Other muscle spasm] 07-12-2024 Episodic Other connective tissue disease (1 source) Pain in calf; Translations: [Pain in right lower leg] 03-06-2024 Episodic Other connective tissue disease (1 source) Lipodermatosclerosis; Translations: [Panniculitis, unspecified] 06-12-2022 Episodic Other diseases of bladder and urethra (1 source) Bladder irritability; Translations: [Other specified disorders of bladder] 01-11-2025 Chronic Other diseases of bladder and urethra (1 source) Other specified disorders of bladder; Translations: [Irritable bladder] Onset: Chronic Other ear and sense organ disorders (1 source) Hearing loss of right ear; Translations: [Unspecified hearing loss, right ear] 04-08-2024 Chronic Other gastrointestinal disorders (1 source) Chronic idiopathic constipation; Translations: [Chronic idiopathic constipation] 08-16-2024 Chronic Other hematologic conditions (8 sources) Raised cardiac enzyme or marker; Translations: [Other specified abnormalities of plasma proteins] 10-26-2022 Episodic Other hematologic conditions (4 sources) Other specified abnormalities of plasma proteins; Translations: [Other abnormal blood chemistry] Episodic Other injuries and conditions due to external causes (1 source) Injury of head; Translations: [Unspecified injury of head, initial encounter] Episodic Other nervous system disorders (20 sources) Neuropathy; Translations: [Hereditary and idiopathic neuropathy, unspecified] Onset: 0 11-13-2009 Chronic Other nervous system disorders (7 sources) Polyneuropathy; Translations: [Polyneuropathy, unspecified] Chronic Other nervous system disorders (2 sources) Polyneuropathy, unspecified; Translations: [Polyneuropathy, unspecified] Onset: 4 Chronic Other nervous system disorders (1 source) Hereditary and idiopathic neuropathy, unspecified; Translations: [Idiopathic neuropathy] Onset: 0 Chronic Other nervous system disorders (1 source) Disorder of muscle; Translations: [Myopathy, unspecified] 10-07-2024 Chronic Other nervous system disorders (1 source) Anesthesia of skin; Translations: [Anesthesia of skin] Episodic Other nervous system disorders (1 source) Altered sensation of skin; Translations: [Other disturbances of skin sensation] Episodic Other nervous system disorders (1 source) Coordination problem; Translations: [Unspecified lack of coordination] 04-21-2024 Episodic Other nervous system disorders (1 source) Anesthesia of skin; Translations: [Anesthesia of skin] Onset: 5 Episodic Other non-traumatic joint disorders (1 source) Pain of right wrist; Translations: [Pain in right wrist] Episodic Other nutritional; endocrine; and metabolic disorders (20 sources) Obesity; Translations: [Obesity, unspecified] Onset: 9 12-03-2012 Chronic Other nutritional; endocrine; and metabolic disorders (9 sources) Obese class II; Translations: [Obesity, Class II, BMI 35-39.9] Onset: 4 08-16-2024 Chronic Other screening for suspected conditions (not mental disorders or infectious disease) (8 sources) CT of chest abnormal; Translations: [Abnormal findings on diagnostic imaging of other specified body structures] 06-12-2022 Chronic Other screening for suspected conditions (not mental disorders or infectious disease) (15 sources) Patient encounter status; Translations: [Encounter for screening mammogram for malignant neoplasm of breast] Episodic Other skin disorders (5 sources) Eruption; Translations: [Rash and other nonspecific skin eruption] 07-31-2022 Episodic Otitis media and related conditions (1 source) Dysfunction of right eustachian tube; Translations: [Unspecified Eustachian tube disorder, right ear] 03-08-2024 Episodic Residual codes; unclassified (17 sources) Obstructive sleep apnea syndrome; Translations: [Obstructive sleep apnea (adult) (pediatric)] Onset: 9 10-09-2022 Chronic Residual codes; unclassified (2 sources) Obstructive sleep apnea (adult) (pediatric); Translations: [Obstructive sleep apnea (adult)(pediatric)] 10-09-2022 Chronic Residual codes; unclassified (8 sources) Sleep apnea; Translations: [Sleep apnea, unspecified] Onset: 4 Chronic Residual codes; unclassified (9 sources) Localized edema; Translations: [Localized edema] 06-12-2022 Episodic Residual codes; unclassified (8 sources) Insomnia; Translations: [Insomnia, unspecified] Onset: 4 Episodic Residual codes; unclassified (1 source) Edema; Translations: [Edema, unspecified] Episodic Residual codes; unclassified (1 source) History of operative procedure on foot; Translations: [Other specified postprocedural states] 11-25-2024 Episodic Residual codes; unclassified (1 source) Other specified health status; Translations: [Failure of outpatient treatment] 10-07-2024 Episodic Skull and face fractures (11 sources) Closed horizontal fracture of maxilla; Translations: [[place] I fracture, initial encounter for closed fracture] Onset: 4 Episodic Spinal cord injury (4 sources) Central cord syndrome; Translations: [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, initial encounter] Onset: 4 Chronic Spondylosis; intervertebral disc disorders; other back problems (10 sources) Lumbar spondylosis; Translations: [Spondylosis without myelopathy or radiculopathy, lumbar region] Onset: 5 Chronic Superficial injury; contusion (1 source) Abrasion of head; Translations: [Abrasion of other part of head, initial encounter] Episodic Unclassified (6 sources) 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 More likely than not secondary to the [place] catheter at the previous hospital. Past or Other Problems Problem Classification Problem Date Documented Date Episodic/Chronic Acquired foot deformities (11 sources) Right foot drop; Translations: [Foot drop, right foot] Onset: 05-03-2024 04-16-2024 Episodic Diabetes mellitus without complication (20 sources) Disorder of glucose metabolism; Translations: [Other abnormal glucose] Onset: 07-16-2018 07-16-2018 Episodic Diverticulosis and diverticulitis (20 sources) Diverticulosis of colon; Translations: [Diverticulosis of large intestine without perforation or abscess without bleeding] Resolved: 07-10-2017 07-10-2017 Chronic E Codes: Place of occurrence (1 source) Sidewalk as the place of occurrence of the external cause; Translations: [Sidewalk as the place of occurrence of the external cause] Onset: 12-27-2023 Episodic E Codes: Unspecified (1 source) Activity, walking, marching and hiking; Translations: [Activity, walking, marching and hiking] Onset: 12-27-2023 Episodic Immunizations and screening for infectious disease (1 source) Encounter for immunization; Translations: [Encounter for immunization] Onset: 11-25-2024 Episodic Malaise and fatigue (8 sources) Asthenia; Translations: [Weakness] Onset: 12-27-2023 Episodic Nutritional deficiencies (20 sources) Vitamin D deficiency; Translations: [Vitamin D deficiency, unspecified] Onset: 03-05-2009 Resolved: 01-01-2017 01-01-2017 Chronic Open wounds of head; neck; and trunk (4 sources) Laceration of nose; Translations: [Laceration without foreign body of nose, initial encounter] Onset: 12-27-2023 Episodic Other connective tissue disease (1 source) Other muscle spasm; Translations: [Muscle spasm] Onset: 07-12-2024 Episodic Other diseases of veins and lymphatics (13 sources) Peripheral venous insufficiency; Translations: [Venous insufficiency (chronic) (peripheral)] Onset: 05-09-2021 2 Episodic Other injuries and conditions due to external causes (2 sources) Other injury of unspecified body region, initial encounter; Translations: [Chronic wound] Onset: 10-03-2024 09-30-2024 Episodic Other nervous system disorders (20 sources) Disorder of the peripheral nervous system; Translations: [Hereditary and idiopathic neuropathy, unspecified] Onset: 04-17-2007 Resolved: 11-23-2009 11-23-2009 Chronic Other nervous system disorders (3 sources) Unspecified lack of coordination; Translations: [Unspecified lack of coordination] Onset: 07-06-2024 Episodic Other skin disorders (20 sources) Callosity; Translations: [Corns and callosities] Onset: 12-03-2012 Resolved: 09-07-2015 09-07-2015 Episodic Rheumatoid arthritis and related disease (20 sources) Rheumatoid arthritis of multiple joints; Translations: [Rheumatoid arthritis with rheumatoid factor of multiple sites without organ or systems involvement] Onset: 10-26-2019 Resolved: 07-21-2023 10-26-2019 Chronic Screening and history of mental health and substance abuse codes (1 source) Encounter for screening for depression; Translations: [Screening for depression] Onset: 11-25-2024 Episodic Skin and subcutaneous tissue infections (20 sources) Cellulitis of lower limb; Translations: [Cellulitis of right lower limb] Onset: 04-18-2009 Resolved: 11-23-2009 Episodic Spondylosis; intervertebral disc disorders; other back problems (11 sources) Spinal stenosis in cervical region; Translations: [Spinal stenosis, cervical region] Onset: 08-30-2024 Episodic Unclassified (1 source) History of operative procedure on foot 11-25-2024 Varicose veins of lower extremity (20 sources) Varicose veins of bilateral lower limbs; Translations: [Asymptomatic varicose veins of bilateral lower extremities] Onset: 06-02-2012 03-18-2016 Episodic Results Test Name Value Interpretation Reference Range Facility /[facility] 04-13-2025 /[facility] Medical Records Department [address] [place] [id number] PAT - Anesthesia 04/13/25 1525 MR#: [id number] Acct: [id number] Name: KIESHA COLVIN Rep #: [id number] : 1940 84 From: Davey Wilhelm MD PCP: Dr. Lianet Sullivan MD Status:PRE [facility] [place] Race: C [place] [facility] [place] Pre-Assessment Diagnosis/Proposed Procedure Planned Operative Procedure(s): SPLIT THICKNESS SKIN GRAFT RIGHT FOOT/HEEL Anesthesia History Anesthesia History - neonatal nurse: Anesthesia History - neonatal nurse Hx Hospitalization No 04/13/25 11:21 Any Problems With Anesthesia No 04/13/25 11:21 Cholinesterase deficiency No 04/13/25 11:21 You/Your Family Experience No 04/13/25 11:21 fever (hyperthermia) with Relationship Recent Exposure to Contagious No 09/22/24 04:37 Disease Does patient have nerve No 04/13/25 11:21 stimulator Patient instructed to have device shut off --Does patient have Pacemaker or ICD? When Was Last Pacemaker Check QUESTION #4 FULL TEXT: You/Your Family Experience fever (hyperthermia) with Anesthesia Last Oral Intake Last Oral intake: Last Oral Intake NPO since Meds taken in AM with sips of water? Meds patient instructed to take am of surgery PONV PONV - neonatal nurse: PONV - neonatal nurse Female Yes 04/13/25 11:21 HX of Motion Sickness No 04/13/25 11:21 HX of N/V After Surgery No 04/13/25 11:21 Non-Smoker Yes 04/13/25 11:21 Duration of Surgery greater Yes 04/13/25 11:21 than 60 minutes Number of Risk Factors 3 04/13/25 11:21 PONV Score Moderate Risk 04/13/25 11:21 Height Weight Height Weight: Anesthesia: Height Weight Height 5 ft 7 in 09/27/24 12:59 Respiratory Assessment Respiratory Assessment - neonatal nurse: Respiratory Tract Infection Hx - neonatal nurse Hx Respiratory Tract Infection No 04/13/25 11:21 STOP Sleep Apnea STOP Sleep Apnea - neonatal nurse: STOP Sleep Apnea - neonatal nurse Hx Hypertension Yes: CONTROLLED WITH MED 04/13/25 11:21 Hx Sleep Apnea Yes 04/13/25 11:21 CPAP Yes 04/13/25 11:21 BIPAP No 04/13/25 11:21 Do you snore loudly (louder than talking or can be heard Do you often feel tired/ fatigued/ sleepy during daytime? Has anyone observed you stop breathing during sleep? STOP Results Positive 04/13/25 11:21 QUESTION #5 FULL TEXT : Do you snore loudly (louder than talking or can be heard through closed doors)? 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 Specify any problems Hx of Preganancy in last 3 No 04/13/25 11:21 Months Nurse Filling Out Transfusion DSCHRIBER 04/13/25 11:21 Questions: Date: 04/13/25 04/13/25 11:21 Time: 11:23 04/13/25 11:21 Patient unable to answer at this time (ie. confused, unrespo /Reproduction History /Reproductive History - neonatal nurse: /Reproductive Hx- neonatal nurse Hx Now No 04/13/25 11:21 Gestational Age (in weeks): EDC: Hx Hx Para Hx Section SAB No 04/13/25 11:21 [facility] Medical History (Updated 04/13/25 @ 11:31 by Leticia Hurtado) Wears hearing aid Walker as ambulation aid Gastric reflux Leg cramps History of pain when walking History of edema History of echocardiogram History of non-healing wound Osteomyelitis Cavovarus deformity of foot, acquired Failure of outpatient treatment Chronic wound Cellulitis of right lower extremity Osteoporosis Irregular heart beat Hypertension Cellulitis Urine incontinence Bradycardia Myopathy Neuropathy Hyponatremia LeFort I fracture Cervical stenosis of spinal canal Contusion of spinal cord Fall Physical debility Wears glasses Wears dentures Arthritis Low iron High cholesterol History of hiatal hernia CPAP (continuous positive airway pressure) dependence Former smoker Cardiology follow-up encounter History of stress test CHARLENE (obstructive sle (more content not included)... [facility] L/S Spine Min 4 Viewson L/S Spine Min 4 Views [facility] [address] [place], [place] [address] L/S Spine Min 4 Views MR#: [id number] Acct: [id number] Name: KIESHA COLVIN Rep #: [id number] : 1940 F 84 From: Radames Stroud MD PCP: Dr. Lianet Sullivan MD Status: REG CLI Study: L/S Spine Min 4 Views Date of Exam: 03/09/25 Exam# [id number] Ordering Dr: Daisy Barber MD PROCEDURE: L/S SPINE MIN 4 VIEWS 03/09/2025 REASON FOR EXAM: WEAKNESS TECHNIQUE: Standing AP lateral and flexion extension views of the lumbar spine were obtained. COMPARISON: Lumbar spine series, 09/13/2020. FINDINGS: There is loss of the normal lumbar lordosis. There is mild levoscoliosis of the lumbar spine centered at the L3 level. There is severe diffuse degenerative disc disease T10-11 through L5-S1 with almost complete loss of the intervertebral disc spaces and large marginal osteophytes. There is multilevel facet arthropathy without spondylolisthesis. There is no instability with flexion and extension. Suspect significant spinal stenosis throughout the lumbar spine. The SI joints are normal. There is calcific vascular disease of the abdominal aorta. RAD/L/S Spine Min 4 Views IMPRESSION: 1. 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 2. Suspect multilevel spinal stenosis. 3. No evidence of instability with flexion and extension Reading Location: [id number] CC: Dr. Daisy Barber MD; Dr. Lianet Sullivan MD Regulatory Intern: Signed Normal [facility] Isaias 02-24-2025 [place] Telephone (INTMWS) JO ANNKIESHA ([id number]) 1940 F Date Time Provider Department 02/24/25 LIANET SULLIVAN INTKevanWS During your visit today, we recorded the following information about you: Olga Lidia Bernard, SHANTEL 02/24/2025 10:29 AM Signed Divya with the Passport Program calls to ask if provider received Passport Enrollment packet that was faxed to provider on 02/21/2025. Contact number is [phone]. SHANTEL Stein Stephanie, RN 03/01/2025 10:08 AM Signed Divya calls and asking if paperwork was received. Advised Divya that no notes that paper work was received. Advised Divya to fax over paperwork again. Please watch out for paperwork. SHANTEL Reza Janice, LPN 03/03/2025 3:21 PM Signed Rec'd pcp is out of the office this week and next. Can review when she reports the week of 03/14/25. Hanna Liz LPN 03/08/2025 3:10 PM Signed Pcp signed previously dx added from 01/11/25 appt. Allergies As of Date: 02/24/2025 Noted Allergy Reaction BEE STING 10/11/2020 10 - Anaphylaxis 14 - Other: See Comments Comments: Honey bees only KEFLEX (CEPHALEXIN) 03/15/2021 2 - Rash 14 - Other: See Comments Comments: Headache PENICILLINS 07/24/2005 Date Reviewed: 01/11/2025 Reviewed by: Alba Bowers LPN - Fully Assessed Reason for Visit: Forms [913] Prescriptions as of 03/08/2025 - solifenacin (VESICARE) 10 mg tablet Take 1 tablet by mouth once daily. - EPINEPHrine (EPIPEN 2-MAKI) 0.3 mg/0.3 mL auto-injector Inject 0.3 mL intramuscularly as needed. - alendronate (FOSAMAX) 70 mg tablet Take 1 tablet by mouth one time a week. Take with a full glass of water, on an empty stomach; do NOT lie down for 30minutes. - omeprazole (PRILOSEC) 20 mg capsule Take 1 capsule by mouth daily before breakfast. 1/2 hr before meal. - PARoxetine (PAXIL) 20 mg tablet Take 1 tablet by mouth once daily. - lisinopril 2.5 mg tablet Take 1 tablet by mouth once daily. Fill this RX when due; cancel refills on prior RX - acetaminophen (TYLENOL 8 HOUR) 650 mg CR tablet Take 650 mg by mouth every 8 hours as needed for pain. - SUNFLOWER OIL-PARSLEY SEED OIL ORAL Take 1 Dose by mouth once daily. Last dose 01/05 due to surgery - Flaxseed Oil oil Last dose 01/05 due to surgery - amLODIPine (NORVASC) 5 mg tablet Take 1 tablet by mouth once daily. As directed - atorvastatin (LIPITOR) 20 mg tablet Take one (1) tablet by mouth every evening at 9pm - Cholecalciferol, Vitamin D3, 25 mcg (1,000 unit) cap Take 1 capsule by mouth once daily. - ferrous sulfate 325 mg (65 mg iron) tablet Take 325 mg by mouth daily with breakfast. - fluticasone (FLONASE) 50 mcg/actuation nasal spray Use 2 Sprays in each nostril once daily. As needed. Rinse mouth after use. - ASPIRIN 81 MG TAB Take 81 mg by mouth once daily. No instructions to hold PACC 01/05 - MULTIVITAMIN TAB Take 1 tablet by mouth once daily. 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 11/23/2009 Obesity, Unspecified [E66.9] 11/22/2008 Unspecified vitamin D deficiency [E55.9] 03/05/2009 01/01/2017 Cellulitis and Abscess of Unspecified Site [L03*04/18/2009 11/23/2009 Idiopathic Neuropathy [G60.9] 11/13/2009 Urge incontinence of urine [N39.41] 11/23/2009 Symptomatic menopausal or female climacteric st*11/21/2010 Varicose veins of both lower extremities [I83.9*06/02/2012 Corns and callosities [L84] 12/03/2012 09/07/2015 Hypertension [I10] 06/25/2013 Osteoarthrosis multiple sites, 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*12/09/2013 CKD (chronic kidney disease) Stage 3, GFR 30-59*01/29/2018 Impaired glucose metabolism [R73.09] 07/16/2018 Rheumatoid arthritis involving multiple sites w*10/26/2019 07/21/2023 Obesity, Class II, BMI 35-39.9 [E66.812] 08/16/2024 Preop testing [Z01.818] 01/06/2025 Asthenia [R53.1] 12/27/2023 Peripheral venous insufficiency [I87.2] 05/09/2021 Osteomyelitis (HCC) [M86.9] 01/07/2025 CHARLENE (obstructive sleep apnea) [G47.33] 03/05/2019 GERD (gastroesophageal reflux disease) [K21.9] 01/07/2025 Cervical stenosis of spinal canal [M48.02] 01/07/2025 Foot drop, right foot [M21.371] 05/03/2024 Encounter Status:Closed by HANNA LIZ on 03/08/25 [facility] CNOVon 01-11-2025 CNOV Office Visit (INTMWS ) KIESHA COLVIN ([id number]) 1940 F Date Time Provider Department 01/11/25 2:00 PM LIANET SULLIVAN INTMWS During your visit today, we recorded the following information about you: Pulse Respiration Blood pressure Weight 68/minute 12/minute 110/60 81.6 kg Lianet Sullivan MD 01/19/2025 12:25 AM Signed This note was created using NoteWriter. Subjective Kiesha Colvin is a 84 year old female. Patient presents with: 6 month f/up Kiesha is a 84-year-old female with a history of urinary incontinence, presenting for a 6-month follow-up visit. Kiesha reports ongoing urinary incontinence, characterized by an inability to hold urine when the urge to void arises. She denies frequent urination or leakage with coughing or sneezing. She has been performing Kegel exercises, which have provided some improvement but not complete resolution of symptoms. She has not yet tried saw palmetto due to concerns about potential side effects. She previously tried Detrol and Myrbetriq, prescribed by Dr. Thurston, a urologist, but found them ineffective. She denies dysuria. Kiesha recently underwent foot surgery for an ulcer and a non-healing bedsore, which developed during a 6-week period of immobility following ligament surgery. She reports soreness at the surgical site, managed with extra-strength Tylenol, and notes swelling and partial numbness. She is able to sleep well at night. She is scheduled for a follow-up appointment tomorrow to assess the healing progress. She also requests a refill for her EpiPen, which was last prescribed in 2022. She is currently taking Flonase, Fosamax, omeprazole, paroxetine, lisinopril, and amlodipine. Stable on meds without adverse effects. PAST MEDICAL HISTORY Diagnosis Date ANEMIA NOS 04/21/2009 Colonoscopy in 10-11: tics and hems with no polpys Started iron as an inpt per Dr. Sales: pt reportedly giving multiple blood donations Hct 33% in 04-13, 06-14 Iron 72, Ferritin 162 (8-252), TIBC 344 in 06-14: stop iron supplements and repeat levels in follow up Anxiety state, unspecified PCP follows Arthritis Bee sting allergy goes into shock, honey bees only CELLULITIS NOS 04/18/2009 WBC 9 K, ESR 118 in 04-13 for cellulitis of R foot Empiric Levaquin for R foot in 04-13: rec to return to Podiatry Admitted 04-19-09 for cellulitis: discharged on Doxy and rec to ID (MRI of the R foot negative for osteo)/ no current issue 01/05/25 Depressive disorder, not elsewhere classified PCP follows Diverticulosis of colon (without mention of hemorrhage) PCP follows Family history of malignant neoplasm of gastrointestinal tract family history of colon cancer Foot drop, right 09/22/2024 no current issue 2024 GERD (gastroesophageal reflux disease) PCP follows Hypertension controlled with meds PCP follows 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 foot/no current issue 2024 Palpitations had for years cardiac workup negative per pt 2024/ Dr. Akbar Pure hypercholesterolemia PCP follows Sleep apnea cpap compliant Urge incontinence of urine 11/23/2009 Varicose veins 06/02/2012 VITAMIN D DEFICIENCY NOS 03/05/2009 Vitamin D 23 (32-100) in 01-12, 29 in 06-14 Vit D 05/21/10 [facility] is 28.8. To continue the vit D 50,000 one po weekly Current Outpatient Medications Medication Sig acetaminophen (TYLENOL 8 HOUR) 650 mg CR tablet Take 650 mg by mouth every 8 hours as needed for pain. SUNFLOWER OIL-PARSLEY SEED OIL ORAL Take 1 Dose by mouth once daily. Last dose 4/2 due to surgery Flaxseed Oil oil Last dose /2 due to surgery amLODIPine (NORVASC) 5 mg tablet Take 1 tablet by mouth once daily. As directed atorvastatin (LIPITOR) 20 mg tablet Take one (1) tablet by mouth every evening at 9pm Cholecalciferol, Vitamin D3, 25 mcg (1,000 unit) cap Take 1 capsule by mouth once daily. ferrous sulfate 325 mg (65 mg iron) tablet Take 325 mg by mouth daily with breakfast. fluticasone (FLONASE) 50 mcg/actuation nasal spray Use 2 Sprays in each nostril once daily. As needed. Rinse mouth after use. ASPIRIN 81 MG TAB Take 81 mg by mouth once daily. No instructions to hold PACC 4/2 MULTIVITAMIN TAB Take 1 tablet by mouth once daily. Last dose 4/2 due to surgery solifenacin (VESICARE) 10 mg tablet Take 1 tablet by mouth once daily. EPINEPHrine (EPIPEN 2-MAKI) 0.3 mg/0.3 mL auto-injector Inject 0.3 mL intramuscularly as needed. alendronate (FOSAMAX) 70 mg tablet Take 1 tablet by mouth one time a week. Take with a full glass of water, on an empty stomach; do NOT li (more content not included)... Normal [facility] [id number] 01-07-2025 [id number] HNO ID: [id number] Author: NELY GRIFFITHS RN Service: ? Author Type: Registered Nurse Type: [id number] Filed: 01/07/2025 16:38 Note Text: Pt to continue home medications per Dr Liu's instructions. [facility] ANES POSTPROC EVALon 025 ANES POSTPROC EVAL HNO ID: [id number] Author: BIENVENIDO GARCIA DO Service: Anesthesiology Author Type: Anesthesiologist Type: Anesthesia Postprocedure Evaluation Filed: 01/07/2025 15:19 Note Text: POST ANESTHESIA EVALUATION NOTE : 1940 Procedure Summary Date: 01/07/25 Room / Location: OR [address] [place] [address] OR Anesthesia Start: 5 Anesthesia Stop: 1451 Procedures: CREATION RECIPIENT SITE VIA EXCISION; FEET 1ST 100SQCM ADULT (Right) TRANSFER / REARRANGEMENT ADJACENT TISSUE FOOT DEFECT 10 SQ CM OR LESS (Right) APPLICATION OF SKIN SUBSTITUTE GRAFT TO FEET AND/OR MULTIPLE DIGITS TOTAL WOUND SURFACE AREA UP TO 100 SQ CM FIRST 25 SQ CM OR LESS WOUND SURFACE AREA (Right) Diagnosis: Other acute osteomyelitis, right ankle and foot (HCC) (Other acute osteomyelitis, right ankle and foot (HCC) [M86.171]) Surgeons: Ambrose Liu DPM Responsible Provider: Bienvenido Garcia DO Anesthesia Type: general ASA Status: 2 Anesthesia Type: general Airway Type: LMA Last Vitals Vitals Value Taken Time BP 128/56 01/07/25 1515 Temp 36.6 ?C (97.8 ?F) 01/07/25 1447 Pulse 58 01/07/25 1517 Resp 12 01/07/25 1515 SpO2 100 % 01/07/25 1517 Vitals shown include unfiled device data. Post Anesthesia Patient Status Patient Evaluation: PACU. PACU/ICU Patient Condition: stable. Anticipated Disposition: phase 2 then home. Neurological Status: aware and responsive. Pulmonary Status: breathing comfortably on room air Airway Control: returned to baseline unsupported. Cardiovascular Status: stable. Pain Management: clinically adequate Postoperative Hydration: acceptable. Intraoperative Events: no significant anesthesia events Post Operative Nausea/Vomiting Status: no significant post operative nausea or vomiting Recommendation: continue current plan of care. Anesthesia Observations No Documentation SIGNATURE: Bienvenido Garcia DO PATIENT NAME: Kiesha Colvin DATE: January 07, 2025 TIME: 3:19 PM CSN: [id number] [facility] ANES PRE-OPon 01-07-2025 ANES PRE-OP HNO ID: [id number] Author: BIENVENIDO GARCIA DO Service: Anesthesiology Author Type: Anesthesiologist Type: Anesthesia Preprocedure Evaluation Filed: 01/07/2025 13:21 Note Text: ANESTHESIOLOGY DAY OF SURGERY NOTE : 1940 Procedure Information Date/Time: 01/07/25 1225 Procedures: CREATION RECIPIENT SITE VIA EXCISION; FEET 1ST 100SQCM ADULT (Right) TRANSFER / REARRANGEMENT ADJACENT TISSUE FOOT DEFECT 10 SQ CM OR LESS (Right) APPLICATION OF SKIN SUBSTITUTE GRAFT TO FEET AND/OR MULTIPLE DIGITS TOTAL WOUND SURFACE AREA UP TO 100 SQ CM FIRST 25 SQ CM OR LESS WOUND SURFACE AREA (Right) Location: MR OR 11 / MR OR Surgeons: Ambrose Liu DPM Estimated body mass index is 29.88 kg/m? as calculated from the following: Height as of this encounter: 167.6 cm (5' 6). Weight as of this encounter: 84 kg (185 lb 1.6 oz). Most recent hematocrit and potassium results: Hematocrit 32.8 11/25/2024 Potassium 4.8 08/26/2024 Relevant Problems ANESTHESIA (+) CHARLENE (obstructive sleep apnea) CARDIO (+) Hypertension (+) Peripheral venous insufficiency (+) Varicose veins of both lower extremities GI (+) GERD (gastroesophageal reflux disease) -RENAL (+) CKD (chronic kidney disease) Stage 3, GFR 30-59 ml/min PULMONARY (+) CHARLENE (obstructive sleep apnea) Other (+) Osteoarthrosis multiple sites, 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 generalized (+) Osteomyelitis (HCC) I - PHYSICAL EVALUATION AIRWAY Patient intubated: No. Tracheostomy tube not present Mallampati: II. TM distance: >3 FB. Neck ROM: full ROM without neurological symptoms. Mouth opening: adequate. Short neck: no. Thick neck: no DENTAL Dentures, upper: complete. Dentures, lower: complete. Additional exam findings: yes. CARDIOVASCULAR Rhythm: regular PULMONARY Breath sounds clear to auscultation. II - ANESTHESIA PLAN ASA Score: 2 Anesthetic Plan: general Airway type: LMA NPO Status: adequate Beta Maikel Monitoring Plan Monitoring plan: standard ASA. Post Procedure Analgesic Plan Postoperative analgesic plan: parenteral or oral opioids and per surgical service. Informed Consent Anesthetic risks, benefits, alternatives, personnel and consent discussed: yes. Patient / Responsible Green Party agrees to proceed: yes Patient / Surrogate agrees to blood products: Yes Significant changes in the patient condition since the History and Physical, not otherwise documented in primary service progress note: no. BP 126/61 01/07/25 1015 Pulse 66 01/07/25 1014 Resp Temp 36.3 ?C (97.3 ?F) 01/07/25 1012 SpO2 95 % 01/07/25 1014 Vitals shown include unfiled device data. Facility-Administered Medications as of 01/07/2025 Medication Dose Route Frequency - lidocaine (PF) 10 mg/mL (1 %) 2 mg injection (XYLOCAINE) 0.2 mL INTRADERMAL PRN - NaCl 0.9% iv infusion 30 mL/hr INTRAVENOUS CONTINUOUS - NaCl 0.9% iv flush bag 20 mL INTRAVENOUS PRN - vancomycin iv piggyback 1.25 g in D5W 250 mL (VANCOCIN) 0.015 g/kg/dose INTRAVENOUS ONCE Outpatient Medications as of 01/07/2025 Medication Sig - acetaminophen (TYLENOL 8 HOUR) 650 mg CR tablet Take 650 mg by mouth every 8 hours as needed for pain. - SUNFLOWER OIL-PARSLEY SEED OIL ORAL Take 1 Dose by mouth once daily. Last dose 4/2 due to surgery - Flaxseed Oil oil Last dose 4/2 due to surgery - amLODIPine (NORVASC) 5 mg tablet Take 1 tablet by mouth once daily. As directed - alendronate (FOSAMAX) 70 mg tablet Take 1 tablet by mouth one time a week. Take with a full glass of water, on an empty stomach; do NOT lie down for 30minutes. - atorvastatin (LIPITOR) 20 mg tablet Take one (1) tablet by mouth every evening at 9pm - omeprazole (PRILOSEC) 20 mg capsule Take 1 capsule by mouth daily before breakfast. 1/2 hr before meal. - PARoxetine (PAXIL) 20 mg tablet Take 1 tablet by mouth once daily. - EPINEPHrine (EPIPEN 2-MAKI) 0.3 mg/0.3 mL auto-injector Inject 0.3 mL intramuscularly as needed. - Cholecalciferol, Vitamin D3, 25 mcg (1,000 unit) cap Take 1 capsule by mouth once daily. (Patient taking differently: Take 1,000 Units by mouth once daily. Last dose 01/05 due to surgery) - ferrous sulfate 325 mg (65 mg iron) tablet Take 325 mg by mouth daily with breakfast. - fluticasone (FLONASE) 50 mcg/actuation nasal spray Use 2 Sprays in each nostril once daily. As needed. Rinse mouth after use. - MULTIVITAMIN TAB Take 1 tablet by mouth once daily. Last dose 01/05 due to surgery - lisinopril 2.5 mg tablet Take 1 tablet by mouth once daily. - ASPIRIN 81 MG TAB Take 81 mg by mouth once daily. No instructions to hold PACC 01/05 I have interviewed and examined the patient. I have reviewed the medical record and/or the pre-anesthesia evaluation, pertinent labs, and test results. This contains updated information obtained within 48 hours of Surgery/Procedure. SIGNATURE: Bienvenido Garcia DO PATIENT NAME: Kiesha Colvin DATE: January 07, 2025 TIME: 12:51 PM CSN: (more content not included)... Normal [facility] HISTORY PHYSICALon HISTORY PHYSICAL HNO ID: [id number] Author: AMBROSE LIU DPM Service: Podiatry Author Type: Resident Type: H&P Filed: 01/07/2025 13:38 Note Text: Attestation signed by Ambrose Liu DPM at 01/07/2025 1:38 PM Patient was seen and evaluated and they understand all risks and complications about her surgery and all risks complicatiions discussed with the patient HISTORY AND PHYSICAL EXAMINATION SERVICE DATE: 01/07/2025 SERVICE TIME: 10:30AM PRIMARY CARE PHYSICIAN: Lianet Sullivan MD Subjective CHIEF COMPLAINT: right foot wound HPI: This is a 84 year old female with PMH of HTN, HLD, Vitamin D deficiency, and neuropathy presents with right foot wound. Patient has been followed outpatient with local wound care for some time now and is here for wound debridement with graft application. FUNCTIONAL STATUS: Independent PAST MEDICAL HISTORY Diagnosis Date ANEMIA NOS 04/21/2009 Colonoscopy in 10-11: tics and hems with no polpys Started iron as an inpt per Dr. Sales: pt reportedly giving multiple blood donations Hct 33% in 04-13, 06-14 Iron 72, Ferritin 162 (8-252), TIBC 344 in 06-14: stop iron supplements and repeat levels in follow up Anxiety state, unspecified PCP follows Arthritis Bee sting allergy goes into shock, honey bees only CELLULITIS NOS 04/18/2009 WBC 9 K, ESR 118 in 04-13 for cellulitis of R foot Empiric Levaquin for R foot in 04-13: rec to return to Podiatry Admitted 04-19-09 for cellulitis: discharged on Doxy and rec to ID (MRI of the R foot negative for osteo)/ no current issue 01/05/25 Depressive disorder, not elsewhere classified PCP follows Diverticulosis of colon (without mention of hemorrhage) PCP follows Family history of malignant neoplasm of gastrointestinal tract family history of colon cancer Foot drop, right 09/22/2024 no current issue 2024 GERD (gastroesophageal reflux disease) PCP follows Hypertension controlled with meds PCP follows 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 foot/no current issue 2024 Palpitations had for years cardiac workup negative per pt 2024/ Dr. Akbar Pure hypercholesterolemia PCP follows Sleep apnea cpap compliant Urge incontinence of urine 11/23/2009 Varicose veins 06/02/2012 VITAMIN D DEFICIENCY NOS 03/05/2009 Vitamin D 23 (32-100) in 01-12, 29 in 06-14 Vit D 05/21/10 WCH is 28.8. To continue the vit D 50,000 one po weekly PAST SURGICAL HISTORY Procedure Laterality Date ABDOMINAL SURGERY HX APPENDECTOMY HX ARTHRP KNE CONDYLEANDPLATU MEDIALANDLAT COMPARTMENTS Right 01/01/2016 Knee replacement, total ARTHRP KNE CONDYLEANDPLATU MEDIALANDLAT COMPARTMENTS Left 09/09/2016 CHOLECYSTECTOMY Cholecystectomy COLONOSCOPY FLX DX W/COLLJ SPEC WHEN PFRMD 01/17/1999 Colonoscopy COLONOSCOPY FLX DX W/COLLJ SPEC WHEN PFRMD 10/10/2005 Colonoscopy COLONOSCOPY FLX DX W/COLLJ SPEC WHEN PFRMD 02/05/2011 COLONOSCOPY FLX DX W/COLLJ SPEC WHEN PFRMD 03/25/2016 Colonoscopy COLONOSCOPY FLX DX W/COLLJ SPEC WHEN PFRMD 02/20/2021 ESOPHAGOGASTRODUODENOSCOPY TRANSORAL DIAGNOSTIC 02/20/2021 EYE SURGERY HX Bilateral cataracts JOINT REPLACEMENT HX OOPHORECTOMY PARTIAL/TOTAL UNI/BI Oophorectomy TOTAL ABDOMINAL HYSTERECT W/WO RMVL TUBE OVARY 1970s Hysterectomy, NIRMALA VAGINAL HYSTERECTOMY VASCULAR SURGERY PROCEDURE vein stripping WOUND DEBRIDEMENT PROCEDURE (W NOTE) 09/22/2024 Rt foot FAMILY HISTORY Problem Relation Age of Onset Colon Cancer Mother diagnosed about age 45. at 49 Heart Father Colon Cancer Sister diagnosed (and passed) at age 68 None Sister coln polyp removed COPD Brother Stroke Brother IC hemorrhage Social History Tobacco Use Smoking status: Former Current packs/day: 0.00 Average packs/day: 1 pack/day for 20.0 years (20.0 ttl pk-yrs) Types: Cigarettes Start date: 10/06/1958 Quit date: 10/06/1978 Years since quittin.2 Smokeless tobacco: Never Vaping Use Vaping status: Never Used Substance Use Topics Alcohol use: No Drug use: No Prior to Admission Medications Prescriptions Last Dose Informant Patient Reported? Taking? ASPIRIN 81 MG TAB Yes Yes Sig: Take 81 mg by mouth once daily. No instructions to hold PACC 01/05 Cholecalciferol, Vitamin D3, 25 mcg (1,000 unit) cap No Yes Sig: Take 1 capsule by mouth once daily. Patient taking differently: Take 1,000 Units by mouth once daily. Last dose 01/05 due to surgery EPINEPHrine (EPIPEN 2-MAKI) 0.3 mg/0.3 mL auto-injector No Yes Sig: (more content not included)... [facility] NURSING PROGon 01-07-2025 NURSING PROG HNO ID: [id number] Author: NELY GRIFFITHS, RN Service: Nursing Author Type: Registered Nurse Type: Nursing Progress Note Filed: 01/07/2025 17:36 Note Text: Fall risk designation communicated in handoff. Individualized high fall risk precautions reviewed and in use. Reinforced educaton of patient to call for help prior to getting out of bed, requesting a family member be present when patient changes clothes, and cooperation requested of patient/family with fall risk interventions. Up to restroom with assist -.In post op shoe-uses walker for WBAT to RLE [facility] NURSING PROG HNO ID: [id number] Author: IQRA SALAS RN Service: ? Author Type: Registered Nurse Type: Nursing Progress Note Filed: 01/07/2025 15:48 Note Text: Fall risk designation communicated in handoff. Individualized high fall risk precautions reviewed and in use. Reinforced educaton of patient to call for help prior to getting out of bed, requesting a family member be present when patient changes clothes, and cooperation requested of patient/family with fall risk interventions. [facility] NURSING PROG HNO ID: [id number] Author: KELLEY FRANK, SHANTEL Service: Nursing Author Type: Registered Nurse Type: Nursing Progress Note Filed: 01/07/2025 11:20 Note Text: Individualized high fall risk precautions in use. Fall risk signage posted at nurses' station. Fall risk designation communicated in handoff. Reinforced education of patient to call for help prior to getting out of bed, requesting a family member be present when patient changes clothes, and cooperation requested of patient/family with fall risk interventions. [facility] OPERATIVE NOon 01-07-2025 OPERATIVE NO HNO ID: [id number] Author: AMBROSE LIU DPM Service: Orthopaedic Surgery Author Type: Physician Type: Operative Report Filed: 01/09/2025 19:34 Note Text: ORTHO OPERATIVE REPORT LOG ID: [id number] Surgery/Procedure Date: 01/07/2025 Incision/Procedure Start Time: 2:29 PM Incision Close/Procedure End Time: 2:37 PM Surgeon(s)/Proceduralist(s) and School Janitor(s): Surgeons and Role: * Ambrose Liu DPM - Primary * Bj Rubin DPM - Resident - Assisting * Gianni Bell DPM Patient Relations Manager: Glenda Harris SA Procedure(s): #1 debridement of ulceration centrally to prepare for skin graft site 2. Application of myriad 1000 cc morsels a paste right heel 3. Application multilayer compression bandage Anesthesia: General Procedure Details: Patient is a well-known patient mine to have an ankle send was the patient has had a decubitus ulceration that she obtained from a nursing facility. She was healing up from her posterior tibial tendon correction and tendo Achilles lengthening. She then contracted ulceration from the splint and on the dressing not being changed properly. She now has had this nonhealing ulceration for about the last 2 months. She has failed conservative methods wound has not healed within the last 4 weeks of conservative treatment and is not smaller than 40% therefore recommend debridement with application of graft. Patient was seen in the preoperative holding area where chart was reviewed and consent was signed. Patient was then taken back to the operating room placed the operative table in normal supine position. Once general anesthetic was obtained a local block of quarter percent Marcaine plain was then injected about the right foot. He was then scrubbed prepped and draped usual aseptic technique. Patient was placed under general anesthetic we rolled her into a right lateral decubitus position. After rotating her in place timeout was then performed we anesthetized the right heel I then debrided the wound excisionally into including subcutaneous tissue and saturated prepare for skin graft Site wound itself measured 2 cm x 1/2 cm x 0.2 cm. I removed all the necrotic fibrotic slough flush the area cauterize any bleeders. I then applied 1000 cc of myriad morsels and a face fashion and then applied it to the right heel I then stapled and an Adaptic to the right heel a compression bandage and a dressing was applied to the right lower leg. The patient was and placed back in the supine position a multilayer compression bandage of gauze Webril and Coban was applied she tolerated this well she must try to stay off it is much as possible okay for toe-touch. Follow-up postoperatively. PRE-OP/PRE-PROCEDURE DIAGNOSIS: # 1 nonhealing ulceration right heel 2. 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 POST-OP/POST-PROCEDURE DIAGNOSIS: Same as Preop Estimated Blood Loss: 20 mls Specimens: None Implant: Implant Name Type Inv. Item Serial No. Management Trainer Lot No. LRB No. Used Action [employer] MORCELLS EXTRACELLULAR MATRIX 1000MG Barrier - Tissue [id number] Right 1 Implanted Myriad application right heel Drains: None Complications: None Participation in Procedure: I/primary surgeon/proceduralist performed the procedure with assistance. SIGNATURE: Ambrose Liu DPM PATIENT NAME: Kiesha Colvin DATE: January 09, 2025 TIME: 7:27 PM PAGER/CONTACT #: [facility] ANES PREOPon 01-06-2025 ANES PREOP HNO ID: [id number] Author: JUANITO DHALIWAL APRN.FORM STRIPPER Service: Anesthesiology Author Type: Nurse Practitioner Type: Anesthesia PreOp Filed: 01/06/2025 10:03 Note Text: 84yo male, exsmoker. PMH: +CHARLENE cpap compliant, palpitations, HTN, HLD, GERD, anemia, R heel pressure ulcer, ideopathic neuropathy, previous foot surgery 2/2 osteomyelitis, anxiety/depression, R foot drop. Takes ASA with no instructions to stop. On renal protective dose of lisinopril. Stress test 2022: EF 82%, neg ischemia/infarct [facility] External [facility] - Stress Test [ID [id number]] ECHO 2018 EF 60%, stage 2 DD, mild 1+ TR [facility] - Echo [ID [id number]] [facility] CNCOon 01-05-2025 CNCO Letter Text [facility] Acid Fast Bacillus Cultureon 12-22-2024 tAFBC Comments: collected in OR; 5th metatarsal bone _ TESTING PERFORMED AT [facility]. ORIGINAL REPORT ON FILE IN LAB CONTAINS ADDITIONAL TEST SITE INFORMATION. _ Culture, Acid Fast NO ACID-FAST BACILLI ISOLATED AFTER 6 WEEKS. Normal [facility] Comment on above: Performed By: #### L 500.2500, L100.0100 #### [facility] [address] [place], [address] Acid Fast Bacillus Smear/Flu oron 12-22-2024 tafb Comments: collected in OR; 5th metatarsal bone _ TESTING PERFORMED AT [facility]. ORIGINAL REPORT ON FILE IN LAB CONTAINS ADDITIONAL TEST SITE INFORMATION. _ Smear, Acid Fast Tissue Grinding Smear: Negative Normal [facility] Comment on above: Performed By: #### L 500.2500, L100.0100 #### [facility] [address] [place], [place], [address] Culture, Fungus 8482on 12-22 CUF Comments: collected in OR; 5th metatarsal bone Is this test to exclude patient from TB Isolation? N _ TESTING PERFORMED AT [facility]. ORIGINAL REPORT ON FILE IN LAB CONTAINS ADDITIONAL TEST SITE INFORMATION. _ CUF No yeast or mold isolated after 4 weeks. [facility] Comment on above: Performed By: #### L 500.2500, L100.0100 #### [facility] [address] [place], [address] Fungus Stain 8136on 12-23-19 FUNST Comments: collected in OR; 5th metatarsal bone Is this test to exclude patient from TB Isolation? N _ TESTING PERFORMED AT [employer] [facility] ORIGINAL REPORT ON FILE IN LAB CONTAINS ADDITIONAL TEST SITE INFORMATION. _ Fungus Stain No fungus observed. [facility] Comment on above: Performed By: #### L 500.2500, L100.0100 #### [facility] [address] [place], [address] CBC W Auto Differential pane l (Bld)on 11-25-2024 Basophils (Bld) [#/Vol] 0.03 10*3/uL [facility] Basophils/100 WBC (Bld) 0.4 % [facility] Differential cell count method Nom (Bld) Auto [facility] Eosinophils (Bld) [#/Vol] 0.47 10*3/uL High NINF [facility] Eosinophils/100 WBC (Bld) 6.8 % [facility] Erythrocyte distribution width (RBC) [Ratio] 14.4 % 11.5 - 15.0 % [facility] Hematocrit (Bld) [Volume fraction] 32.8 % Low 36.0 - 46.0 % [facility] Hemoglobin (Bld) [Mass/Vol] 10.7 g/dL Low 11.5 - 15.5 g/dL [facility] Immature granulocytes (Bld) [#/Vol] NINF [facility] Immature granulocytes/100 WBC (Bld) 0.1 % [facility] Interpretation and review of laboratory results Abnormal [facility] Lymphocytes (Bld) [#/Vol] 1.88 10*3/uL [facility] Lymphocytes/100 WBC (Bld) 27.1 % [facility] MCH (RBC) [Entitic mass] 29.8 pg 26.0 - 34.0 pg [facility] MCHC (RBC) [Mass/Vol] 32.6 g/dL 30.5 - 36.0 g/dL [facility] MCV (RBC) [Entitic vol] 91.4 fL 80.0 - 100.0 fL [facility] Monocytes (Bld) [#/Vol] 0.58 10*3/uL [facility] Monocytes/100 WBC (Bld) 8.3 % [facility] Neutrophils (Bld) [#/Vol] 3.98 10*3/uL [facility] Neutrophils/100 WBC (Bld) 57.3 % [facility] Nucleated RBC (Bld) [#/Vol] NINF [facility] Nucleated RBC/100 WBC (Bld) [Ratio] 0 % /100 WBC [facility] Platelet mean volume (Bld) [Entitic vol] 11 fL 9.0 - 12.7 fL [facility] Platelets (Bld) [#/Vol] 215 10*3/uL [facility] RBC (Bld) [#/Vol] 3.59 10*6/uL Low 3.90 - 5.20 m/uL [facility] WBC (Bld) [#/Vol] 6.95 10*3/uL [facility] Basophils (Bld) [#/Vol] 0.03 10*3/uL Normal <0.11 [facility] Comment on above: Order Comment: Speci men Type: BLOOD SPECIMENOrdering Facility: [facility] Address: [address] [place] [address] Performed By: #### 5 7021-8 ####[facility] LABCLIA [id number] [place] [address] [place] Basophils/100 WBC (Bld) 0.4 % Normal [facility] Comment on above: Order Comment: Speci men Type: BLOOD SPECIMENOrdering Facility: [facility] Address: [address] [place] [address] Performed By: #### 5 7021-8 ####[facility] LABCLIA [id number] [place] [address] [place] Differential cell count method Nom (Bld) Auto Normal [facility] Comment on above: Order Comment: Speci men Type: BLOOD SPECIMENOrdering Facility: [facility] Address: [address] [place] [address] Performed By: #### 5 7021-8 ####[facility] LABCLIA [id number] [place] [address] [place] Eosinophils (Bld) [#/Vol] 0.47 10*3/uL High <0.46 [facility] Comment on above: Order Comment: Speci men Type: BLOOD SPECIMENOrdering Facility: [facility] Address: [address] [place] [address] Performed By: #### 5 7021-8 ####[facility] LABCLIA [id number] [place] [address] [place] Eosinophils/100 WBC (Bld) 6.8 % Normal [facility] Comment on above: Order Comment: Speci men Type: BLOOD SPECIMENOrdering Facility: [facility] Address: [address] [place] [address] Performed By: #### 5 7021-8 ####[facility] LABCLIA [id number] [place] [address] [place] Erythrocyte distribution width (RBC) [Ratio] 14.4 % Normal 11.5-15.0 [facility] Comment on above: Order Comment: Speci men Type: BLOOD SPECIMENOrdering Facility: [facility] Address: [address] [place] [address] Performed By: #### 5 7021-8 ####[facility] LABCLIA [id number] [place] [address] [place] Hematocrit (Bld) [Volume fraction] 32.8 % Low 36.0-46.0 [facility] Comment on above: Order Comment: Speci men Type: BLOOD SPECIMENOrdering Facility: [facility] Address: [address] [place] [address] Performed By: #### 5 7021-8 ####[facility] LABCLIA [id number] [place] [address] [place] Hemoglobin (Bld) [Mass/Vol] 10.7 g/dL Low 11.5-15.5 [facility] Comment on above: Order Comment: Speci men Type: BLOOD SPECIMENOrdering Facility: [facility] Address: [address] [place] [address] Performed By: #### 5 7021-8 ####[facility] LABCLIA [id number] [place] [address] [place] Immature granulocytes (Bld) [#/Vol] 10*3/uL Normal <0.10 [facility] Comment on above: Order Comment: Speci men Type: BLOOD SPECIMENOrdering Facility: [facility] Address: [address] [place] [address] Performed By: #### 5 7021-8 ####[facility] LABCLIA [id number] [place] [address] [place] Immature granulocytes/100 WBC (Bld) 0.1 % Normal [facility] Comment on above: Order Comment: Speci men Type: BLOOD SPECIMENOrdering Facility: [facility] Address: [address] [place] [address] Performed By: #### 5 7021-8 ####[facility] LABCLIA [id number] [place] [address] [place] Lymphocytes (Bld) [#/Vol] 1.88 10*3/uL Normal 1.00-4.00 [facility] Comment on above: Order Comment: Speci men Type: BLOOD SPECIMENOrdering Facility: [facility] Address: [address] [place] [address] Performed By: #### 5 7021-8 ####[facility] LABCLIA [id number] [place] [address] [place] Lymphocytes/100 WBC (Bld) 27.1 % Normal [facility] Comment on above: Order Comment: Speci men Type: BLOOD SPECIMENOrdering Facility: [facility] Address: [address] [place] [address] Performed By: #### 5 7021-8 ####[facility] LABIA [id number] [place] [address] [place] MCH (RBC) [Entitic mass] 29.8 pg Normal 26.0-34.0 [facility] Comment on above: Order Comment: Speci men Type: BLOOD SPECIMENOrdering Facility: [facility] Address: [address] [place] [address] Performed By: #### 5 7021-8 ####[facility] LABIA [id number] [place] [address] [place] MCHC (RBC) [Mass/Vol] 32.6 g/dL Normal 30.5-36.0 [facility] Comment on above: Order Comment: Speci men Type: BLOOD SPECIMENOrdering Facility: [facility] Address: [address] [place] [address] Performed By: #### 5 7021-8 ####[facility] LABCLIA [id number] [place] [address] [place] MCV (RBC) [Entitic vol] 91.4 fL Normal 80.0-100.0 [facility] Comment on above: Order Comment: Speci men Type: BLOOD SPECIMENOrdering Facility: [facility] Address: [address] [place] [address] Performed By: #### 5 7021-8 ####[facility] LABCLIA [id number] [place] [address] [place] Monocytes (Bld) [#/Vol] 0.58 10*3/uL Normal <0.87 [facility] Comment on above: Order Comment: Speci men Type: BLOOD SPECIMENOrdering Facility: [facility] Address: [address] [place] [address] Performed By: #### 5 7021-8 ####[facility] LABCLIA [id number] [place] [address] [place] Monocytes/100 WBC (Bld) 8.3 % Normal [facility] Comment on above: Order Comment: Speci men Type: BLOOD SPECIMENOrdering Facility: [facility] Address: [address] [place] [address] Performed By: #### 5 7021-8 ####[facility] LABCLIA [id number] [place] [address] [place] Neutrophils (Bld) [#/Vol] 3.98 10*3/uL Normal 1.45-7.50 [facility] Comment on above: Order Comment: Speci men Type: BLOOD SPECIMENOrdering Facility: [facility] Address: [address] [place] [address] Performed By: #### 5 7021-8 ####[facility] LABCLIA [id number] [place] [address] [place] Neutrophils/100 WBC (Bld) 57.3 % Normal [facility] Comment on above: Order Comment: Speci men Type: BLOOD SPECIMENOrdering Facility: [facility] Address: [address] [place] [address] Performed By: #### 5 7021-8 ####[facility] LABCLIA [id number] [place] [id number] [place] Nucleated RBC (Bld) [#/Vol] 10*3/uL Normal <0.01 [facility] Comment on above: Order Comment: Speci men Type: BLOOD SPECIMENOrdering Facility: [facility] Address: [address] [place] [address] Performed By: #### 5 7021-8 ####[facility] LABCLIA [id number] [place] [address] [place] Nucleated RBC/100 WBC (Bld) [Ratio] 0.0 /100 WBC Normal [facility] Comment on above: Order Comment: Speci men Type: BLOOD SPECIMENOrdering Facility: [facility] Address: [address] [place] [address] Performed By: #### 5 7021-8 ####[facility] LABIA [id number] [place] [address] [place] Platelet mean volume (Bld) [Entitic vol] 11.0 fL Normal 9.0-12.7 [facility] Comment on above: Order Comment: Speci men Type: BLOOD SPECIMENOrdering Facility: [facility] Address: [address] [place] [address] Performed By: #### 5 7021-8 ####[facility] LABIA [id number] [place] [address] [place] Platelets (Bld) [#/Vol] 215 10*3/uL Normal 150-400 [facility] Comment on above: Order Comment: Speci men Type: BLOOD SPECIMENOrdering Facility: [facility] Address: [address] [place] [address] Performed By: #### 5 7021-8 ####[facility] LABCLIA [id number] [place] [address] [place] RBC (Bld) [#/Vol] 3.59 10*6/uL Low 3.90-5.20 [facility] Comment on above: Order Comment: Speci men Type: BLOOD SPECIMENOrdering Facility: [facility] Address: [address] [place] [address] Performed By: #### 5 7021-8 ####[facility] LABCLIA [id number] [place] [address] [place] WBC (Bld) [#/Vol] 6.95 10*3/uL Normal 3.70-11.00 [facility] Comment on above: Order Comment: Speci men Type: BLOOD SPECIMENOrdering Facility: [facility] Address: [address] [place] [address] Performed By: #### 5 7021-8 ####[facility] LABCLIA [id number] [place] [address] [place] CNOVon 11-25-2024 CNOV Office Visit (INTMWS ) KIESHA COLVIN ([id number]) 1940 F Date Time Provider Department 11/25/24 1:00 PM ANTOLIN COOMBS INTMWS During your visit today, we recorded the following information about you: Pulse Respiration Blood pressure 69/minute 16/minute 107/63 Antolin Coombs, WINTER INTERN.SCENE SHIFTER 11/25/2024 1:55 PM Signed SUBJECTIVE: Depression Screening Never done RSV Vaccine(1 - 1-dose 75+ series) Never done Advance Directive Discussion due on 10/06/2024 HPI Kiesha Colvin is a 84 year old female. PMH significant for ACTIVE PROBLEM LIST Pure Hypercholesterolemia Anxiety State Obesity, Unspecified Idiopathic Neuropathy Urge Incontinence of Urine Symptomatic Menopausal Or Female Climacteric States Varicose Veins of Both Lower Extremities Hypertension Osteoarthrosis Multiple Sites, Not Specified As Generalized CKD (chronic kidney disease) Stage 3, GFR 30-59 ml/min Impaired Glucose Metabolism Obesity, Class II, Bmi 35-39.9 She was admitted to [facility] September 18, 2024 to September 28, 2024 for failure of outpatient treatment of cellulitis. She was found to have right foot osteomyelitis. Treating with doxycycline x 37 days post discharge. She underwent surgical wound debridement and a posterior tibial tendon transfer and peroneal tendon transfer, radial procedure. PT / OT recommended SNF placement. Care managed by WILDA kwon. Presents today for SNF discontinued follow up visit. Completed antibiotics: yes, took 6 weeks Mobility: Using a walker, mostly in home Oral intake: Doing well Constipation: In SNF, intermittent, taking OTC remedy that helps. Reports that she is taking iron which causes constipation. PT: [facility] PT was out this week Interim [facility] [employer] is provider of [facility] services. Follow-up with podiatry: 3 weeks, Dr. Berry (sp?) Notes surgical wound is healing. Does have hospital aquied pressur ulcer which he is treating with a topical treatment and pressure relief shoe and bootie. Review of Systems Respiratory: Negative. Cardiovascular: Negative. Neurological: Negative for light-headedness. Objective BP 107/63 Pulse 69 Resp 16 Physical Exam Vitals and nursing note reviewed. Constitutional: Appearance: Normal appearance. HENT: Head: Normocephalic and atraumatic. Eyes: Conjunctiva/sclera: Conjunctivae normal. Cardiovascular: Rate and Rhythm: Normal rate and regular rhythm. Heart sounds: Normal heart sounds. Pulmonary: Effort: Pulmonary effort is normal. Breath sounds: Normal breath sounds. Abdominal: General: Bowel sounds are normal. Palpations: Abdomen is soft. Skin: General: Skin is warm and dry. Neurological: General: No focal deficit present. Mental Status: She is alert and oriented to person, place, and time. ALLERGIES Allergen Reactions Keflex [Cephalexin] Rash, Other: See Comments Headache Penicillins Medications Flaxseed Oil oil amLODIPine (NORVASC) 5 mg tablet Take 1 tablet by mouth once daily. As directed lisinopril 2.5 mg tablet Take 1 tablet by mouth once daily. alendronate (FOSAMAX) 70 mg tablet Take 1 tablet by mouth one time a week. Take with a full glass of water, on an empty stomach; do NOT lie down for 30minutes. atorvastatin (LIPITOR) 20 mg tablet Take one (1) tablet by mouth every evening at 9pm omeprazole (PRILOSEC) 20 mg capsule Take 1 capsule by mouth daily before breakfast. 1/2 hr before meal. PARoxetine (PAXIL) 20 mg tablet Take 1 tablet by mouth once daily. EPINEPHrine (EPIPEN 2-MAKI) 0.3 mg/0.3 mL auto-injector Inject 0.3 mL intramuscularly as needed. Cholecalciferol, Vitamin D3, 25 mcg (1,000 unit) cap Take 1 capsule by mouth once daily. ferrous sulfate 325 mg (65 mg iron) tablet Take 325 mg by mouth daily with breakfast. fluticasone (FLONASE) 50 mcg/actuation nasal spray Use 2 Sprays in each nostril once daily. As needed. Rinse mouth after use. ASPIRIN 81 MG TAB Take one (1) tablet daily . MULTIVITAMIN TAB Take one(1) tablet daily. CALCIUM 500+D 500 MG-200 UNIT TAB naproxen (NAPROSYN) 250 mg tablet Take 250 mg by mouth two times a day with meals. Taking Tylenol instead (Patient not taking: Reported on 11/25/2024) PAST MEDICAL HISTORY Diagnosis Date ANEMIA NOS 04/21/2009 Colonoscopy in 10-11: tics and hems with no polpys Started iron as an inpt per Dr. Sales: pt reportedly giving multiple blood donations Hct 33% in 04-13, 06-14 Iron 72, Ferritin 162 (8-252), TIBC 344 in 06-14: stop iron supplements and repeat levels in follow up Anxiety state, unspecified Arthritis Bee sting allergy goes into shock, honey bees only CELLULITIS NOS 04/18/2009 WBC 9 K, ESR 118 in 04-13 for cellulitis of R foot Empiric Levaquin for R foot in 04-13: rec to return to Podiatry Admitted 04-19-09 for cellulitis: discharged on Doxy and rec to ID (MRI of the R foot negative for osteo) Depressive (more content not included)... Normal [facility] Spine Lumbar (Routine)on Spine Lumbar (Routine) [facility] [address] [place], [place] [id number] Spine Lumbar (Routine) MR#: [id number] Acct: [id number] Name: KIESHA COLVIN Rep #: [id number] : 1940 F 84 From: [place] PCP: Dr. Lianet Sullivan MD Status: REG CLI Study: Spine Lumbar (Routine) Date of Exam: 11/17/24 Exam# [id number] Ordering Dr: Devyn Whitnye MD PROCEDURE: MRI lumbar spine without IV contrast REASON FOR EXAM: Pain TECHNIQUE: Multisequence multiplanar MR images of the lumbar spine were obtained without the administration of intravenous contrast. COMPARISON: None. FINDINGS: Vertebral body heights are within normal limits. Negative for fracture or marrow replacement. Mild degenerative endplate edema at L2-L3. Mild/moderate levoscoliosis. Straightening of the normal lordosis. Multilevel disc desiccation and disc space narrowing. Conus medullaris is intact and terminates at L1-L2. Moderate paraspinal muscle atrophy. No paraspinal mass. L1-L2: Posterior disc bulge. Mild bilateral facet arthrosis and ligamentum flavum hypertrophy. No significant spinal stenosis. Mild bilateral foraminal narrowing. L2-L3: Posterior disc bulge with superimposed right central protrusion and annular fissure. Mild/moderate bilateral facet arthrosis. Mild spinal stenosis width narrowing of the right lateral recess. Mild bilateral foraminal narrowing, greater on the right. L3-L4: Posterior disc bulge. Mild/moderate bilateral facet arthrosis. Ligamentum flavum hypertrophy. Mild spinal stenosis. Moderate right and mild left foraminal narrowing. L4-L5: Posterior disc osteophyte complex and annular fissure. Moderate bilateral facet arthrosis and ligamentum flavum hypertrophy. Moderate spinal stenosis and narrowing of the left lateral recess. Moderate right and mild/moderate left foraminal narrowing. L5-S1: Posterior disc osteophyte complex with a superimposed right central disc protrusion. Moderate bilateral facet arthrosis. Moderate spinal stenosis including narrowing of the right lateral recess. Moderate bilateral foraminal narrowing. MRI/Spine Lumbar (Routine) IMPRESSION: 1. Acquired multilevel spinal stenosis, greatest at L4-L5 and L5-S1 categorized as moderate. 2. Acquired mild to moderate multilevel foraminal narrowing. See level by level comments above. Reading Location: [facility] CC: Dr. Devyn Whitney MD; Dr. Lianet Sullivan MD Regulatory Intern: Signed Normal [facility] Brain without Contraston Brain without Contrast [facility] [address] [place] [address] Brain without Contrast MR#: [id number] Acct: [id number] Name: KIESHA COLVIN Rep #: [id number] : 1940 F 84 From: Dk Mane MD PCP: Dr. Lianet Sullivan MD Status: REG CLI Study: Brain without Contrast Date of Exam: 11/04/24 Exam# [id number] Ordering Dr: Daisy Barber MD PROCEDURE: BRAIN WITHOUT CONTRAST REASON FOR EXAM: Stroke alert. TECHNIQUE: Noncontrast brain MRI. COMPARISON: None. FINDINGS: Brain: Periventricular T2/FLAIR hyperintensity likely representing moderate chronic microvascular ischemia. Moderate global parenchymal atrophy. No evidence of acute hemorrhage. Diffusion weighted images show no evidence of acute or recent infarct. Ventricles: Normal. Major Intracranial Vessels: Normal flow voids. Sinuses: Clear. Mastoids: Clear. Absent [place] ocular lenses. MRI/Brain without Contrast IMPRESSION: No acute intracranial abnormality. Parenchymal atrophy and chronic microvascular ischemia. Reading Location: [facility] CC: Dr. aDisy Barber MD; Dr. Lianet Sullivan MD Regulatory Intern: Signed Normal [facility] CBC + DIFFon 10-01-2024 Baso # 0.02 x10EE3/UL Normal 0.00 - 0.10 [facility] Comment on above: Performed By: #### 2 35390 #### [place] [id number] Basophils/100 WBC (Bld) 0.4 % Normal 0.0 - 2.0 [facility] Comment on above: Performed By: #### 2 99436 #### [address] [address] CBC + DIFF Normal [facility] Comment on above: Result Comment: CBC- COMPLETE BLOOD COUNT Performed By: #### 2 45235 #### [facility],[address] [place] [address] EO # 0.35 x10EE3/UL Normal 0.00 - 0.50 [facility] Comment on above: Performed By: #### 2 67257 #### [facility],[address] [place] [address] Eosinophils/100 WBC (Bld) 5.1 % Normal 0.0 - 7.0 [facility] Comment on above: Performed By: #### 2 83129 #### [facility],[address] [place] [address] Erythrocyte distribution width (RBC) [Ratio] 14.3 % Normal 12.0 - 15.6 [facility] Comment on above: Performed By: #### 2 86478 #### [facility],[address] [place] [address] Hematocrit (Bld) [Volume fraction] 26.2 % Low 34.0 - 46.0 [facility] Comment on above: Performed By: #### 2 40310 #### [facility],[address] [place] [address] Hemoglobin (Bld) [Mass/Vol] 8.8 g/dL Low 12.0 - 16.0 [facility] Comment on above: Performed By: #### 2 35527 #### [facility],[address] [place], [place] [id number] Lymph # 1.60 x10EE3/UL Normal 0.80 - 2.80 [facility] Comment on above: Performed By: #### 2 26437 #### [facility],[address] [place], [place] [id number] Lymphocytes/100 WBC (Bld) 23.6 % Normal 20.0 - 45.0 [facility] Comment on above: Performed By: #### 2 70577 #### [facility],[address] [place] [address] MANUAL DIFF N/A Normal [facility] Comment on above: Performed By: #### 2 05460 #### [facility],[address] [place] [address] MCH (RBC) [Entitic mass] 30 pg Normal 27 - 33 [facility] Comment on above: Performed By: #### 2 85239 #### [facility],[address] [place] [address] MCHC 34 X10 3 Normal 32 - 36 [facility] Comment on above: Performed By: #### 2 14962 #### [facility],[address] [place] [address] MCV (RBC) [Entitic vol] 89 fL Normal 80 - 99 [facility] Comment on above: Performed By: #### 2 28555 #### [facility],[address] [place] [address] [place] # 0.51 x10EE3/UL Normal 0.20 - 1.00 [facility] Comment on above: Performed By: #### 2 11951 #### [facility],[address] [place] [address] MONOS % 7.5 % Normal 0.0 - 10.0 [facility] Comment on above: Performed By: #### 2 58170 #### [facility],[address] [place] [address] Morphology Javier (Bld) [Interp] N/A Normal [facility] Comment on above: Performed By: #### 2 04023 #### [facility],[address] [place] [address] Neut # 4.29 x10EE3/UL Normal 1.50 - 7.10 [facility] Comment on above: Performed By: #### 2 16565 #### [facility],[address] [place] [address] Neutrophils/100 WBC (Bld) 63.4 % Normal 46.0 - 76.0 [facility] Comment on above: Performed By: #### 2 23570 #### [facility],[address] [place] [address] PLATELET 435 x10EE3/UL Normal 150 - 450 [facility] Comment on above: Performed By: #### 2 24004 #### [facility],[address] [place] [address] Platelet mean volume (Bld) [Entitic vol] 8.0 fL Normal 6.6 - 10.5 [facility] Comment on above: Result Comment: AUTO MATED DIFFERENTIAL Performed By: #### 2 14686 #### [facility],[address] [place] [address]307 RBC 2.96 x 10EE6/UL Low 4.10 - 5.30 [facility] Comment on above: Performed By: #### 2 36541 #### [facility],[address] [place] [address] WBC 6.8 x 10EE3/UL Normal 4.5 - 10.8 [facility] Comment on above: Performed By: #### 2 03502 #### [facility],[address] [place] [address]954 CMP with eGFRon 10-01-2024 AGE 84 years Normal [facility] Comment on above: Performed By: #### 2 32548 #### [facility],[address] [place] [address] Albumin [Mass/Vol] 2.4 g/dL Low 3.4 - 5.0 [facility] Comment on above: Performed By: #### 2 04865 #### [facility],[address] [place] [address] Albumin/Globulin [Mass ratio] 0.6 {ratio} Low 0.9 - 1.6 [facility] Comment on above: Performed By: #### 2 82169 #### [facility],[address] [place] [address] ALK PHOS 43 U/L Low 46 - 116 [facility] Comment on above: Performed By: #### 2 64642 #### [facility],[address] [place] [address] 70367 ALT [Catalytic activity/Vol] 29 U/L Normal 16 - 63 [facility] Comment on above: Performed By: #### 2 40335 #### [facility],[address] [place] [address] 11829 Anion gap [Moles/Vol] 10 mmol/L Normal 10 - 20 [facility] Comment on above: Performed By: #### 2 38945 #### [facility],[address] [place] [address] 23001 AST [Catalytic activity/Vol] 23 U/L Normal 13 - 39 [facility] Comment on above: Performed By: #### 2 53146 #### [facility],[address] [place] [address] 27279 B/C RATIO 14 ratio Normal 0 - 30 [facility] Comment on above: Performed By: #### 2 56585 #### [facility],[address] [place] [address] Bilirubin [Mass/Vol] 0.5 mg/dL Normal 0.2 - 1.0 [facility] Comment on above: Performed By: #### 2 79066 #### [facility],[address] [place] [address] Calcium [Mass/Vol] 8.3 mg/dL Low 8.5 - 10.1 [facility] Comment on above: Performed By: #### 2 99602 #### [facility],[address] [place] [address] 07008 Chloride [Moles/Vol] 101 mmol/L Normal 98 - 107 [facility] Comment on above: Performed By: #### 2 90939 #### [facility],[address] [place] [address] 80953 CMP with eGFR Normal [facility] Comment on above: Result Comment: COMP REHENSIVE METABOLIC PANEL Performed By: #### 2 14835 #### [facility],[address] [place] [address] CO2 [Moles/Vol] 28.9 mmol/L Normal 21.0 - 32.0 [facility] Comment on above: Performed By: #### 2 75691 #### [facility],[address] [place] [address] 94703 Creatinine [Mass/Vol] 0.79 mg/dL Normal 0.55 - 1.02 [facility] Comment on above: Performed By: #### 2 05110 #### [facility],[address] [place] [address] GFR/1.73 sq M.predicted among non-blacks MDRD (S/P/Bld) [Vol rate/Area] mL/min/{1.73_m2} Normal 60 - 999 [facility] Comment on above: Performed By: #### 2 43604 #### [facility],[address] [place] [address] Result Comment: ACCO RDING TO THE NATIONAL KIDNEY DISEASE EDUCATION PROGRAM(NKDE), A NORMAL eGFR IS A VALUE GREATER THAN OR EQUAL TO 60 ML/MIN/1.73 SQ METERS. CHRONIC KIDNEY DISEASE: <60mL/MIN/1.73 SQ METERS KIDNEY FAILURE: <15mL/MIN/1.73 SQ METERS THIS TEST SHOULD ONLY BE USED FOR PATIENTS 18 YEARS OF AGE AND OLDER. Globulin (S) [Mass/Vol] 4.2 g/dL High 1.5 - 3.8 [facility] Comment on above: Performed By: #### 2 91459 #### [facility],[address] [place] [address] Glucose [Mass/Vol] 94 mg/dL Normal 74 - 106 [facility] Comment on above: Performed By: #### 2 72959 #### [facility],[address] [place] [address] 490[address] Potassium [Moles/Vol] 4.3 mmol/L Normal 3.5 - 5.1 [facility] Comment on above: Performed By: #### 2 85222 #### [facility],[address] [place] [address] 84628 Protein [Mass/Vol] 6.6 g/dL Normal 6.4 - 8.2 [facility] Comment on above: Performed By: #### 2 86092 #### [facility],[address] [place] [address]43 Sodium [Moles/Vol] 136 mmol/L Normal 136 - 145 [facility] Comment on above: Performed By: #### 2 89179 #### [facility],[address] [place] [address] 08329 Urea nitrogen [Mass/Vol] 11 mg/dL Normal 7 - 18 [facility] Comment on above: Performed By: #### 2 15102 #### [facility],[address] [place] [address] 34094 LIPID PROFILEon 10-01-2024 Cholesterol [Mass/Vol] 85 mg/dL Normal 0 - 240 [facility] Comment on above: Performed By: #### 2 88237 ####[facility],[address] [place] [address] 17234 Cholesterol in HDL [Mass/Vol] 29 mg/dL Low 40 - 60 [facility] Comment on above: Performed By: #### 2 49613 ####[facility],[address] [place] [address] 48267 Cholesterol in LDL [Mass/Vol] 36 mg/dL Normal 0 - 129 [facility] Comment on above: Performed By: #### 2 19550 ####[facility],[address] [place] [address] Cholesterol.total/Ch olesterol in HDL [Mass ratio] 2.9 {ratio} Normal 0.0 - 5.0 [facility] Comment on above: Performed By: #### 2 35907 ####[facility],[address] [place] [address] 88536 Lipid 1996 panel Normal [facility] Comment on above: Result Comment: LIPI D PROFILE Performed By: #### 2 03518 ####[facility],[address] [place] [address] Triglyceride [Mass/Vol] 98 mg/dL Normal 0 - 150 [facility] Comment on above: Performed By: #### 2 68634 ####[facility],[address] [place] [address] CDIFF (PCR)on 09-28-2024 CDIFF Is the patient recei ving laxatives? N New/unexplained onset of 3 or more stools in past 24 hrs? Y Pending 027 027 NAP1-B1 Presumptive Negative *for epidemiolologic???use C. Diff PCR Negative- No toxigenic C. Diff Detected Normal [facility] Comment on above: Performed By: #### L 500.2500, L100.0100 #### [facility] [address] [place], [address] Ferritinon 09-28-2024 Ferritin [Mass/Vol] 218 ng/mL Normal 8-252 [facility] Comment on above: Performed By: #### L 500.2500, L100.0100 #### [facility] [address] [place], [address] Iron+Iron Binding Capacityon 09-28-2024 Iron [Mass/Vol] 22 ug/dL Low 50-170 [facility] Comment on above: Performed By: #### L 500.2500, L100.0100 #### [facility] [address] [facility], [address] IRON SATURATION 14.7 Low 15.0-55.0 [facility] Comment on above: Performed By: #### L 500.2500, L100.0100 #### [facility] [address] [place], [address] TIBC 150 ug/dL Low 250-450 [facility] Comment on above: Performed By: #### L 500.2500, L100.0100 #### [facility] [address] [place], [address] Basic Metabolic Profile (BMP )on 09-27-2024 BUN/CRE 24.3 RATIO High 10-20 [facility] Comment on above: Performed By: #### L 500.2500, L100.0100 #### [facility] [address] [place], [address] CA,Total 8.3 mg/dL Low 8.5-10.1 [facility] Comment on above: Performed By: #### L 500.2500, L100.0100 #### [facility] [address] [place], [address] Chloride [Moles/Vol] 104 mmol/L Normal 98-107 [facility] Comment on above: Performed By: #### L 500.2500, L100.0100 #### [facility] [address] [place], [address] CO2 [Moles/Vol] 25.0 mmol/L Normal 21.0-32.0 [facility] Comment on above: Performed By: #### L 500.2500, L100.0100 #### [facility] [address] [place], [address] Creatinine [Mass/Vol] 0.70 mg/dL Normal 0.55-1.02 [facility] Comment on above: Result Comment: The validity of the calculated GFR GFRAA in patients over 70 years has not been determined. Clinical correlation is essential. Performed By: #### L 500.2500, L100.0100 #### [facility] [address] [place], [address] ECRCL 59.93 ml/min Normal [facility] Comment on above: Performed By: #### L 500.2500, L100.0100 #### [facility] [address] [place], [address] EST GFR - AA 103 mL/min Normal >60 [facility] Comment on above: Result Comment: Afri can Armenian GFR Calc Performed By: #### L 500.2500, L100.0100 #### [facility] [address] [place], [address] GAP 5 Normal 5-15 [facility] Comment on above: Performed By: #### L 500.2500, L100.0100 #### [facility] [address] [place], [address] GFR/1.73 sq M.predicted among non-blacks MDRD (S/P/Bld) [Vol rate/Area] 85 mL/min/{1.73_m2} Normal >60 [facility] Comment on above: Result Comment: Non- GFR Calc Performed By: #### L 500.2500, L100.0100 #### [facility] [address] [place], [address] Glucose [Mass/Vol] 96 mg/dL Normal 74-106 [facility] Comment on above: Performed By: #### L 500.2500, L100.0100 #### [facility] [address] [place], [address] Potassium [Moles/Vol] 3.6 mmol/L Normal 3.5-5.1 [facility] Comment on above: Performed By: #### L 500.2500, L100.0100 #### [facility] [address] [place], [address] Sodium [Moles/Vol] 134 mmol/L Low 136-145 [facility] Comment on above: Performed By: #### L 500.2500, L100.0100 #### [facility] [address] [place], [address] Urea nitrogen [Mass/Vol] 17 mg/dL Normal 7-18 [facility] Comment on above: Performed By: #### L 500.2500, L100.0100 #### [facility] [address] [place], [address] CBC W/Diff, Automatedon 12-2 SMEAR COMMENT SCANNED Normal [facility] Comment on above: Result Comment: AUTO DIFF OK Performed By: #### L 500.2500, L100.0100 #### [facility] [address] [place], [address] Culture, Anaerobic Any Sourc katrina 09-27-2024 CUAN collected in [place]; 5th metatarsal bone No anaerobic bacteria isolated. Normal [facility] Comment on above: Performed By: #### L 500.2500, L100.0100 #### [facility] [address] [place], [address] Basic Metabolic Profile (BMP )on 09-26-2024 BUN/CRE 26.3 RATIO High 10-20 [facility] Comment on above: Performed By: #### L 100.0100, L500.2500 #### [facility] [address] [place], [address] CA,Total 8.2 mg/dL Low 8.5-10.1 [facility] Comment on above: Performed By: #### L 100.0100, L500.2500 #### [facility] [address] [place], [address] Chloride [Moles/Vol] 106 mmol/L Normal 98-107 [facility] Comment on above: Performed By: #### L 100.0100, L500.2500 #### [facility] [address] [place], [address] CO2 [Moles/Vol] 22.0 mmol/L Normal 21.0-32.0 [facility] Comment on above: Performed By: #### L 100.0100, L500.2500 #### [facility] [address] [place], [address] Creatinine [Mass/Vol] 0.72 mg/dL Normal 0.55-1.02 [facility] Comment on above: Result Comment: The validity of the calculated GFR GFRAA in patients over 70 years has not been determined. Clinical correlation is essential. Performed By: #### L 100.0100, L500.2500 #### [facility] [address] [place], [address] ECRCL 59.93 ml/min Normal [facility] Comment on above: Performed By: #### L 100.0100, L500.2500 #### [facility] [address] [place], [address] EST GFR - AA 99 mL/min Normal >60 [facility] Comment on above: Result Comment: Afri can Armenian GFR Calc Performed By: #### L 100.0100, L500.2500 #### [facility] [address] [place], [address] GAP 8 Normal 5-15 [facility] Comment on above: Performed By: #### L 100.0100, L500.2500 #### [facility] [address] [place], [address] GFR/1.73 sq M.predicted among non-blacks MDRD (S/P/Bld) [Vol rate/Area] 82 mL/min/{1.73_m2} Normal >60 [facility] Comment on above: Result Comment: Non- GFR Calc Performed By: #### L 100.0100, L500.2500 #### [facility] [address] [place], [address] Glucose [Mass/Vol] 91 mg/dL Normal 74-106 [facility] Comment on above: Performed By: #### L 100.0100, L500.2500 #### [facility] [address] [place], [address] Potassium [Moles/Vol] 3.9 mmol/L Normal 3.5-5.1 [facility] Comment on above: Performed By: #### L 100.0100, L500.2500 #### [facility] [address] [place], [address] Sodium [Moles/Vol] 137 mmol/L Normal 136-145 [facility] Comment on above: Performed By: #### L 100.0100, L500.2500 #### [facility] [address] [place], [address] Urea nitrogen [Mass/Vol] 19 mg/dL High 7-18 [facility] Comment on above: Performed By: #### L 100.0100, L500.2500 #### [facility] [address] [place], [address] CBC W/Diff, Automatedon 12-2 2-2023 Absolute Lymph 1.68 X10 3/uL Normal 0.83-4.51 [facility] Comment on above: Performed By: #### L 100.0100, L500.2500 #### [facility] [address] [place], [place], [address] Absolute Neut 5.2 X10 3/uL Normal 2.0-7.7 [facility] Comment on above: Performed By: #### L 100.0100, L500.2500 #### [facility] [address] [place], [address] Basophils/100 WBC (Bld) 0.2 % Normal 0-1 [facility] Comment on above: Performed By: #### L 100.0100, L500.2500 #### [facility] [address] [place], [address] Eosinophils/100 WBC (Bld) 7.7 % High 0-5 [facility] Comment on above: Performed By: #### L 100.0100, L500.2500 #### [facility] [address] [place], [address] Erythrocyte distribution width (RBC) [Ratio] 14.4 % Normal 11.6-14.6 [facility] Comment on above: Performed By: #### L 100.0100, L500.2500 #### [facility] [address] [place], [address] Hematocrit (Bld) [Volume fraction] 25.7 % Low 37-47 [facility] Comment on above: Performed By: #### L 100.0100, L500.2500 #### [facility] [address] [place], [address] Hemoglobin (Bld) [Mass/Vol] 8.6 g/dL Low 12.0-15.0 [facility] Comment on above: Performed By: #### L 100.0100, L500.2500 #### [facility] [address] [place], [address] IG% 0.600 Normal 0.0-0.9 [facility] Comment on above: Result Comment: IG% - Immature Granulocytes (promyelocytes, myelocytes and metamyelocytes) > 1% indicates that a LEFT SHIFT is Present. Performed By: #### L 100.0100, L500.2500 #### [facility] [address] [place], [address] Lymphocytes/100 WBC (Bld) 20.6 % Normal 19-41 [facility] Comment on above: Performed By: #### L 100.0100, L500.2500 #### [facility] [address] [place], [address] MCH (RBC) [Entitic mass] 30.4 pg Normal 27.0-32.0 [facility] Comment on above: Performed By: #### L 100.0100, L500.2500 #### [facility] [address] [place], [address] MCHC (RBC) [Mass/Vol] 33.5 g/dL Normal 32-36 [facility] Comment on above: Performed By: #### L 100.0100, L500.2500 #### [facility] [address] [place], [address] MCV (RBC) [Entitic vol] 90.8 fL Normal 81-99 [facility] Comment on above: Performed By: #### L 100.0100, L500.2500 #### [facility] [address] [place], [address] Monocytes/100 WBC (Bld) 7.8 % Normal 0-10 [facility] Comment on above: Performed By: #### L 100.0100, L500.2500 #### [facility] [address] [place], [address] Neutrophils/100 WBC (Bld) 63.1 % Normal 47-70 [facility] Comment on above: Performed By: #### L 100.0100, L500.2500 #### [facility] [address] [place], [address] Nucleated RBC (Bld) [#/Vol] 0 10*3/uL Normal 0-5 [facility] Comment on above: Performed By: #### L 100.0100, L500.2500 #### [facility] [address] [place], [address] Platelet mean volume (Bld) [Entitic vol] 10.9 fL Normal 6.2-12.0 [facility] Comment on above: Performed By: #### L 100.0100, L500.2500 #### [facility] [address] [place], [address] Platelets (Bld) [#/Vol] 191 10*3/uL Normal 150-450 [facility] Comment on above: Performed By: #### L 100.0100, L500.2500 #### [facility] [address] [place], [address] RBC (Bld) [#/Vol] 2.83 10*6/uL Low 4.2-5.4 [facility] Comment on above: Performed By: #### L 100.0100, L500.2500 #### [facility] [address] [place], [address] RDW SD 48.0 fl High 35.1-43.9 [facility] Comment on above: Performed By: #### L 100.0100, L500.2500 #### [facility] [address] [place], [address] WBC (Bld) [#/Vol] 8.2 10*3/uL Normal 4.4-11.0 [facility] Comment on above: Performed By: #### L 100.0100, L500.2500 #### [facility] [address] [place], [address] Vancomycin, Trough Levelon 11-27-2023 VANCO, TROUGH 11.7 ug/mL Normal 5.0-15.0 [facility] Comment on above: Order Comment: 1500 Result Comment: VANC OMYCIN STANDARED DRUG THERAPY TROUGH LEVEL: 5.0 - 15.0 mg/L VANCOMYCIN HIGH INTENSITY THERAPY TROUGH LEVEL: 15.0 - 20.0 mg/L High Intensity therapy recommended for serious life threatening infections include: - Meningitis -Endocarditis -Pneumonia (Ventilator/Healtcare Associated) -Sepsis PLEASE CONTACT PHARMACY SERVICES (#[id number]) FOR INTERPRETATION OF RESULTS. Performed By: #### L 501.3741 #### [facility] [address] [place], [address] Basic Metabolic Profile (BMP )on 09-25-2024 BUN/CRE 27.9 RATIO High 10-20 [facility] Comment on above: Performed By: #### L 500.2500, L100.0100 #### [facility] [address] [place], [address] CA,Total 7.9 mg/dL Low 8.5-10.1 [facility] Comment on above: Performed By: #### L 500.2500, L100.0100 #### [facility] [address] [place], [address] Chloride [Moles/Vol] 107 mmol/L Normal 98-107 [facility] Comment on above: Performed By: #### L 500.2500, L100.0100 #### [facility] [address] [place], [address] CO2 [Moles/Vol] 21.0 mmol/L Normal 21.0-32.0 [facility] Comment on above: Performed By: #### L 500.2500, L100.0100 #### [facility] [address] [place], [address] Creatinine [Mass/Vol] 0.86 mg/dL Normal 0.55-1.02 [facility] Comment on above: Result Comment: The validity of the calculated GFR GFRAA in patients over 70 years has not been determined. Clinical correlation is essential. Performed By: #### L 500.2500, L100.0100 #### [facility] [address] [place], [address] ECRCL 55.75 ml/min Normal [facility] Comment on above: Performed By: #### L 500.2500, L100.0100 #### [facility] [address] [place], [address] EST GFR - AA 81 mL/min Normal >60 [facility] Comment on above: Result Comment: Afri can Armenian GFR Calc Performed By: #### L 500.2500, L100.0100 #### [facility] [address] [place], [address] GAP 6 Normal 5-15 [facility] Comment on above: Performed By: #### L 500.2500, L100.0100 #### [facility] [address] [place], [address] GFR/1.73 sq M.predicted among non-blacks MDRD (S/P/Bld) [Vol rate/Area] 67 mL/min/{1.73_m2} Normal >60 [facility] Comment on above: Result Comment: Non- GFR Calc Performed By: #### L 500.2500, L100.0100 #### [facility] [address] [place], [address] Glucose [Mass/Vol] 96 mg/dL Normal 74-106 [facility] Comment on above: Performed By: #### L 500.2500, L100.0100 #### [facility] [address] [place], [address] Potassium [Moles/Vol] 3.8 mmol/L Normal 3.5-5.1 [facility] Comment on above: Performed By: #### L 500.2500, L100.0100 #### [facility] [address] [place], [address] Sodium [Moles/Vol] 134 mmol/L Low 136-145 [facility] Comment on above: Performed By: #### L 500.2500, L100.0100 #### [facility] [address] [place], [address] Urea nitrogen [Mass/Vol] 24 mg/dL High 7-18 [facility] Comment on above: Performed By: #### L 500.2500, L100.0100 #### [facility] [address] [place], [address] CBC W/Diff, Automatedon 12-2 Absolute Lymph 0.94 X10 3/uL Normal 0.83-4.51 [facility] Comment on above: Performed By: #### L 500.2500, L100.0100 #### [facility] [address] [place], [address] Absolute Neut 5.2 X10 3/uL Normal 2.0-7.7 [facility] Comment on above: Performed By: #### L 500.2500, L100.0100 #### [facility] [address] [place], [address] Basophils/100 WBC (Bld) 0.1 % Normal 0-1 [facility] Comment on above: Performed By: #### L 500.2500, L100.0100 #### [facility] [address] [place], [address] Eosinophils/100 WBC (Bld) 7.9 % High 0-5 [facility] Comment on above: Performed By: #### L 500.2500, L100.0100 #### [facility] [address] [place], [address] Erythrocyte distribution width (RBC) [Ratio] 14.2 % Normal 11.6-14.6 [facility] Comment on above: Performed By: #### L 500.2500, L100.0100 #### [facility] [address] [place], [address] Hematocrit (Bld) [Volume fraction] 25.9 % Low 37-47 [facility] Comment on above: Performed By: #### L 500.2500, L100.0100 #### [facility] [address] [place], [address] Hemoglobin (Bld) [Mass/Vol] 8.3 g/dL Low 12.0-15.0 [facility] Comment on above: Performed By: #### L 500.2500, L100.0100 #### [facility] [address] [place], [address] IG% 0.500 Normal 0.0-0.9 [facility] Comment on above: Result Comment: IG% - Immature Granulocytes (promyelocytes, myelocytes and metamyelocytes) > 1% indicates that a LEFT SHIFT is Present. Performed By: #### L 500.2500, L100.0100 #### [facility] [address] [place], [address] Lymphocytes/100 WBC (Bld) 12.8 % Low 19-41 [facility] Comment on above: Performed By: #### L 500.2500, L100.0100 #### [facility] [address] [place], [address] MCH (RBC) [Entitic mass] 28.9 pg Normal 27.0-32.0 [facility] Comment on above: Performed By: #### L 500.2500, L100.0100 #### [facility] [address] [place], [address] MCHC (RBC) [Mass/Vol] 32.0 g/dL Normal 32-36 [facility] Comment on above: Performed By: #### L 500.2500, L100.0100 #### [facility] [address] [place], [address] MCV (RBC) [Entitic vol] 90.2 fL Normal 81-99 [facility] Comment on above: Performed By: #### L 500.2500, L100.0100 #### [facility] [address] [place], [address] Monocytes/100 WBC (Bld) 7.5 % Normal 0-10 [facility] Comment on above: Performed By: #### L 500.2500, L100.0100 #### [facility] [address] [place], [address] Neutrophils/100 WBC (Bld) 71.2 % High 47-70 [facility] Comment on above: Performed By: #### L 500.2500, L100.0100 #### [facility] [address] [place], [address] Nucleated RBC (Bld) [#/Vol] 0 10*3/uL Normal 0-5 [facility] Comment on above: Performed By: #### L 500.2500, L100.0100 #### [facility] [address] [place], [address] Platelet mean volume (Bld) [Entitic vol] 10.8 fL Normal 6.2-12.0 [facility] Comment on above: Performed By: #### L 500.2500, L100.0100 #### [facility] [address] [place], [address] Platelets (Bld) [#/Vol] 182 10*3/uL Normal 150-450 [facility] Comment on above: Performed By: #### L 500.2500, L100.0100 #### [facility] [address] [place], [address] RBC (Bld) [#/Vol] 2.87 10*6/uL Low 4.2-5.4 [facility] Comment on above: Performed By: #### L 500.2500, L100.0100 #### [facility] [address] [place], [address] RDW SD 46.5 fl High 35.1-43.9 [facility] Comment on above: Performed By: #### L 500.2500, L100.0100 #### [facility] [address] [place], [address] WBC (Bld) [#/Vol] 7.3 10*3/uL Normal 4.4-11.0 [facility] Comment on above: Performed By: #### L 500.2500, L100.0100 #### [facility] [address] [place], [address] Wound Cultureon 09-25-2024 WC collected in [place]; 5th metatarsal bone Staphylococcus aureus Amount Growth Rare Staphylococcus aureus: REACTION cefOXitin Susc Islt Doxycycline Islt JOE 2 S Clindamycin Islt JOE I Clindamycin.induced Susc Islt NEG Erythromycin Islt JOE >=8 R Gentamicin Islt JOE <=0.5 S Linezolid Islt JOE 2 S Moxifloxacin Islt JOE <=0.25 S Oxacillin Susc Islt 0.5 S Tetracycline Islt JOE >=16 R TMP SMX Islt JOE <=10 S Vancomycin Islt JOE 1 S Normal [facility] Comment on above: Performed By: #### L 500.2500, L100.0100 #### [facility] [address] [place], [address] Basic Metabolic Profile (BMP )on 09-24-2024 BUN/CRE 21.4 RATIO High 07-25 [facility] Comment on above: Performed By: #### L 501.8850 #### [facility] [address] [place], [address] CA,Total 8.2 mg/dL Low 8.5-10.1 [facility] Comment on above: Performed By: #### L 501.8850 #### [facility] [address] [place], [address] Chloride [Moles/Vol] 103 mmol/L Normal 98-107 [facility] Comment on above: Performed By: #### L 501.8850 #### [facility] [address] [facility] [place], [address] CO2 [Moles/Vol] 24.0 mmol/L Normal 21.0-32.0 [facility] Comment on above: Performed By: #### L 501.4250 #### [facility] [address] [place], [address] Creatinine [Mass/Vol] 1.17 mg/dL High 0.55-1.02 [facility] Comment on above: Result Comment: The validity of the calculated GFR GFRAA in patients over 70 years has not been determined. Clinical correlation is essential. Performed By: #### L 501.8150 #### [facility] [address] [place], [address] ECRCL 40.98 ml/min Normal [facility] Comment on above: Performed By: #### L 969.8150 #### [facility] [address] [place], [address] EST GFR - AA 57 mL/min Low >60 [facility] Comment on above: Result Comment: Afri can Armenian GFR Calc Performed By: #### L 525.2850 #### [facility] [address] [place], [address] GAP 5 Normal 5-15 [facility] Comment on above: Performed By: #### L 048.6750 #### [facility] [address] [place], [address] GFR/1.73 sq M.predicted among non-blacks MDRD (S/P/Bld) [Vol rate/Area] 47 mL/min/{1.73_m2} Low >60 [facility] Comment on above: Result Comment: Non- GFR Calc Performed By: #### L 501.4650 #### [facility] [address] [place], [address] Glucose [Mass/Vol] 99 mg/dL Normal 74-106 [facility] Comment on above: Performed By: #### L 501.7550 #### [facility] [address] [place], [address] Potassium [Moles/Vol] 4.1 mmol/L Normal 3.5-5.1 [facility] Comment on above: Result Comment: Slig ht Hemolysis, Result may be falsely increased. Performed By: #### L 501.8850 #### [facility] [address] [place], [address] Sodium [Moles/Vol] 132 mmol/L Low 136-145 [facility] Comment on above: Performed By: #### L 501.8850 #### [facility] [address] [place], [address] Urea nitrogen [Mass/Vol] 25 mg/dL High 7-18 [facility] Comment on above: Performed By: #### L 501.8850 #### [facility] [address] [place], [address] CBC W/Diff, Automatedon 12-2 0-4 Absolute Lymph 0.87 X10 3/uL Normal 0.83-4.51 [facility] Comment on above: Performed By: #### L 501.8850 #### [facility] [address] [place], [address] Absolute Neut 6.3 X10 3/uL Normal 2.0-7.7 [facility] Comment on above: Performed By: #### L 501.8850 #### [facility] [address] [place], [address] Basophils/100 WBC (Bld) 0.1 % Normal 0-1 [facility] Comment on above: Performed By: #### L 501.8850 #### [facility] [address] [place], [address] Eosinophils/100 WBC (Bld) 4.1 % Normal 0-5 [facility] Comment on above: Performed By: #### L 501.8850 #### [facility] [address] [place], [address] Erythrocyte distribution width (RBC) [Ratio] 14.1 % Normal 11.6-14.6 [facility] Comment on above: Performed By: #### L 501.8850 #### [facility] [address] [place], [address] Hematocrit (Bld) [Volume fraction] 29.6 % Low 37-47 [facility] Comment on above: Performed By: #### L 501.8850 #### [facility] [address] [place], [address] Hemoglobin (Bld) [Mass/Vol] 9.6 g/dL Low 12.0-15.0 [facility] Comment on above: Performed By: #### L 501.8850 #### [facility] [address] [place], [address] IG% 0.700 Normal 0.0-0.9 [facility] Comment on above: Result Comment: IG% - Immature Granulocytes (promyelocytes, myelocytes and metamyelocytes) > 1% indicates that a LEFT SHIFT is Present. Performed By: #### L 501.8850 #### [facility] [address] [place], [address] Lymphocytes/100 WBC (Bld) 10.6 % Low 19-41 [facility] Comment on above: Performed By: #### L 501.8850 #### [facility] [address] [place], [address] MCH (RBC) [Entitic mass] 29.3 pg Normal 27.0-32.0 [facility] Comment on above: Performed By: #### L 501.8850 #### [facility] [address] [place], [address] MCHC (RBC) [Mass/Vol] 32.4 g/dL Normal 32-36 [facility] Comment on above: Performed By: #### L 501.8850 #### [facility] [address] [place], [address] MCV (RBC) [Entitic vol] 90.2 fL Normal 81-99 [facility] Comment on above: Performed By: #### L 501.8850 #### [facility] [address] [place], [address] Monocytes/100 WBC (Bld) 8.4 % Normal 0-10 [facility] Comment on above: Performed By: #### L 501.8850 #### [facility] [address] [place], [address] Neutrophils/100 WBC (Bld) 76.1 % High 47-70 [facility] Comment on above: Performed By: #### L 501.8850 #### [facility] [address] [place], [address] Nucleated RBC (Bld) [#/Vol] 0 10*3/uL Normal 0-5 [facility] Comment on above: Performed By: #### L 501.8850 #### [facility] [address] [place], [address] Platelet mean volume (Bld) [Entitic vol] 10.2 fL Normal 6.2-12.0 [facility] Comment on above: Performed By: #### L 501.8850 #### [facility] [address] [place], [address] Platelets (Bld) [#/Vol] 206 10*3/uL Normal 150-450 [facility] Comment on above: Performed By: #### L 501.8850 #### [facility] [address] [place], [address] RBC (Bld) [#/Vol] 3.28 10*6/uL Low 4.2-5.4 [facility] Comment on above: Performed By: #### L 501.8850 #### [facility] [address] [place], [address] RDW SD 46.5 fl High 35.1-43.9 [facility] Comment on above: Performed By: #### L 501.8850 #### [facility] [address] [place], [address] WBC (Bld) [#/Vol] 8.2 10*3/uL Normal 4.4-11.0 [facility] Comment on above: Performed By: #### L 501.8850 #### [facility] [address] [place], [address] Operative Reporton 4 Operative Report [facility] Medical Records Department [address] [place] [address] Operative Report 09/24/24 1650 MR#: [id number] Acct: [id number] Name: KIESHA COLVIN Rep #: [id number] : 1940 84 From: Ambrose Liu MD PCP: Dr. Lianet Sullivan MD Status:ADM IN Location: [facility] [place] [id number] Problems Associated Problem List Diagnoses (1) Cavovarus deformity of foot, acquired: (2) Chronic wound: (3) Osteomyelitis: Operative Report (Standard) Operative Information Date of Procedure: 09/22/24 Pre-Operative Diagnosis: 1. Severe cavovarus foot type 2. Osteomyelitis fifth metatarsal right foot 3. 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 Foot drop right lower leg Post-Operative Diagnosis: Same as above Surgery/Procedure Performed: 1. Posterior tibial tendon transfer, peroneal tendon transfer equaling the bridle procedure 2. Open tendo Achilles lengthening right lower leg 3. Incision and drainage bone cortex fifth metatarsal 4. 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: No Type of Anesthesia: General/Regional and General/Supplemental RN Documented Start/Stop Times: Operation Date: 09/22/24 16:30 Case Time Into Pre-Op 09/22/24 15:37 Anesthesia Start 09/22/24 20:00 Into Room 09/22/24 20:00 Procedure Start 09/22/24 20:23 Procedure End 09/22/24 22:35 Anesthesia End 09/22/24 22:40 Out of Room 09/22/24 22:40 Into Recovery 09/22/24 22:43 Out of Recovery 09/22/24 23:33 Procedure Start Time: 20:23 Procedure Stop Time: 22:35 Select all DRAINS/GRAFTS/IMPLANTS that apply: None and Implanted device Implanted device details: Lux Citrix anchor 8 mm Estimated Blood Loss: 20 cc Specimen collected: Yes Description of specimen(s) removed: Fifth metatarsal bone fragments Description of surgery: This patient was seen as a consult at [facility] in which the patient has had a nonhealing ulceration on the plantar surface of her right foot for greater than 5 months. The patient has a a nonhealing wound and the severe deformity of her right lower leg ever since she fell on her face and her leg has become contracted and inward forming. She does see a foot doctor down in [place] in which they were treating her conservatively with orthotics, a brace never fit her properly as she could not control this foot she continues to rolled her foot inward the constantly breaks down subfifth metatarsal with a nonhealing wound. The patient has never had healing of this for the last 8 months. I do think the patient does have osteomyelitis as her MRI confirms this but not only for the treatment of this but also the treatment of the deformity as I can make her foot better. The patient was seen in the preoperative holding area chart reviewed and consent was signed. The patient was then taken back to the operating room placed the operative table in normal supine position general anesthetic was then obtained a local block of quarter percent Marcaine plain was injected about the right ankle and the lower leg. It was then scrubbed prepped and draped in usual aseptic technique. Attention is then directed to the right lower leg in which gravity same and it was applied and tourniquet was inflated to 250 mL regrew about the right thigh. Timeout was then performed at that point a 4 cm later Just incision was made well and lateral aspect of the fifth metatarsal and the fifth metatarsal phalangeal joint it was incised down to including subcutaneous tissue by releasing the periosteum it was then noted the bone had severe cystic defects as well as large amounts of infected bone at this point then using a sterile curette I incised and drained the entire fifth metatarsal heads in the shaft removing all necrotic devitalized tissue and bone I sent it off for culture and sensitivity I flushed the wound with copious amounts normal sterile saline. I took a sagittal saw and cut the distal aspect of the bone of the fifth metatarsal took a sample flush the area with 3-0 Vicryl Next month this was closed we then used 3-0 Prolene and she tolerated this procedure well. The ulceration measured 1 cm x 1 cm x 0.2 was then excisionally debrided into including subcutaneous tissue using a 15 blade and we padded the area Tensions undirected to the medial aspect of the posterior tibial tendon insertion we then made 6 incisions consisting of all areas where we did the tendon transfer the first incision was between the medial malleolus and navicular tuberosity we then incised down to including subcutaneous tissue we found the tendon sheath for the posterior tibial tendon I disarticulated and removed it from the posterior tibial insertion of the navicular the plantar attachments were released as well. Once the tendon was then visualize (more content not included)... Normal [facility] Vancomycin, Random Levelon 11-25-2023 VANCO, RANDOM 16.1 ug/mL High 0.0-15.0 [facility] Comment on above: Result Comment: VANC OMYCIN STANDARD DRUG THERAPY: CRITICAL VALUE IS > 15.0 mg/L VANCOMYCIN HIGH INTENSITY THERAPY: CRITICAL VALUE IS > 20.0 mg/L PLEASE CONTACT PHARMACY SERVICES (#[id number]) FOR INTERPRETATION OF RESULTS. THIS RESULT DOES NOT REPRESENT A PEAK OR TROUGH LEVEL FOR THIS DRUG. Performed By: #### L 501.8850 #### [facility] [place], [address] Vancomycin, Trough Levelon 1 11-25-2023 VANCO, TROUGH 22.0 ug/mL High 5.0-15.0 [facility] Comment on above: Order Comment: Comme nts: Trough to be drawn 30 mins prior to scheduled [id number] Result Comment: VANC OMYCIN STANDARED DRUG THERAPY TROUGH LEVEL: 5.0 - 15.0 mg/L VANCOMYCIN HIGH INTENSITY THERAPY TROUGH LEVEL: 15.0 - 20.0 mg/L High Intensity therapy recommended for serious life threatening infections include: - Meningitis -Endocarditis -Pneumonia (Ventilator/Healtcare Associated) -Sepsis PLEASE CONTACT PHARMACY SERVICES (#[id number]) FOR INTERPRETATION OF RESULTS. Performed By: #### L 100.0100, L500.2500 #### [facility] [address] [place], [address] Basic Metabolic Profile (BMP )on 09-23-2024 BUN/CRE 22.8 RATIO High 10-20 [facility] Comment on above: Performed By: #### L 500.2500, L100.0100 ####[facility] [address] [place], [address] CA,Total 9.1 mg/dL Normal 8.5-10.1 [facility] Comment on above: Performed By: #### L 500.2500, L100.0100 ####[facility] [address] [place], [address] Chloride [Moles/Vol] 103 mmol/L Normal 98-107 [facility] Comment on above: Performed By: #### L 500.2500, L100.0100 ####[facility] [address] [place], [address] CO2 [Moles/Vol] 25.0 mmol/L Normal 21.0-32.0 [facility] Comment on above: Performed By: #### L 500.2500, L100.0100 ####[facility] [address] [place], [address] Creatinine [Mass/Vol] 0.79 mg/dL Normal 0.55-1.02 [facility] Comment on above: Result Comment: The validity of the calculated GFR GFRAA in patients over 70 years has not been determined. Clinical correlation is essential. Performed By: #### L 500.2500, L100.0100 ####[facility] [address] [place], [address] ECRCL 59.93 ml/min Normal [facility] Comment on above: Performed By: #### L 500.2500, L100.0100 ####[facility] [address] [place], [address] EST GFR - AA 89 mL/min Normal >60 [facility] Comment on above: Result Comment: Afri can Armenian GFR Calc Performed By: #### L 500.2500, L100.0100 ####[facility] [address] [place], [address] GAP 5 Normal 5-15 [facility] Comment on above: Performed By: #### L 500.2500, L100.0100 ####[facility] [address] [place], [address] GFR/1.73 sq M.predicted among non-blacks MDRD (S/P/Bld) [Vol rate/Area] 74 mL/min/{1.73_m2} Normal >60 [facility] Comment on above: Result Comment: Non- GFR Calc Performed By: #### L 500.2500, L100.0100 ####[facility] [address] [place], [address] Glucose [Mass/Vol] 98 mg/dL Normal 74-106 [facility] Comment on above: Performed By: #### L 500.2500, L100.0100 ####[facility] [address] [place], [address] Potassium [Moles/Vol] 4.1 mmol/L Normal 3.5-5.1 [facility] Comment on above: Result Comment: Slig ht Hemolysis, Result may be falsely increased. Performed By: #### L 500.2500, L100.0100 ####[facility] [address] [place], [address] Sodium [Moles/Vol] 133 mmol/L Low 136-145 [facility] Comment on above: Performed By: #### L 500.2500, L100.0100 ####[facility] [address] [place], [address] Urea nitrogen [Mass/Vol] 18 mg/dL Normal 7-18 [facility] Comment on above: Performed By: #### L 500.2500, L100.0100 ####[facility] [address] [place], [address] CBC W/Diff, Automatedon 09-05 Absolute Lymph 1.61 X10 3/uL Normal 0.83-4.51 [facility] Comment on above: Performed By: #### L 500.2500, L100.0100 ####[facility] [address] [place], [address] Absolute Neut 7.5 X10 3/uL Normal 2.0-7.7 [facility] Comment on above: Performed By: #### L 500.2500, L100.0100 ####[facility] [address] [place], [address] Basophils/100 WBC (Bld) 0.4 % Normal 0-1 [facility] Comment on above: Performed By: #### L 500.2500, L100.0100 ####[facility] [address] [place], [address] Eosinophils/100 WBC (Bld) 2.5 % Normal 0-5 [facility] Comment on above: Performed By: #### L 500.2500, L100.0100 ####[facility] [address] [place], [address] Erythrocyte distribution width (RBC) [Ratio] 13.7 % Normal 11.6-14.6 [facility] Comment on above: Performed By: #### L 500.2500, L100.0100 ####[facility] [address] [place], [address] Hematocrit (Bld) [Volume fraction] 32.5 % Low 37-47 [facility] Comment on above: Performed By: #### L 500.2500, L100.0100 ####[facility] [address] [place], [address] Hemoglobin (Bld) [Mass/Vol] 10.6 g/dL Low 12.0-15.0 [facility] Comment on above: Performed By: #### L 500.2500, L100.0100 ####[facility] [address] [place], [address] IG% 0.700 Normal 0.0-0.9 [facility] Comment on above: Result Comment: IG% - Immature Granulocytes (promyelocytes, myelocytes and metamyelocytes) > 1% indicates that a LEFT SHIFT is Present. Performed By: #### L 500.2500, L100.0100 ####[facility] [address] [place], [address] Lymphocytes/100 WBC (Bld) 15.6 % Low 19-41 [facility] Comment on above: Performed By: #### L 500.2500, L100.0100 ####[facility] [address] [place], [address] MCH (RBC) [Entitic mass] 29.8 pg Normal 27.0-32.0 [facility] Comment on above: Performed By: #### L 500.2500, L100.0100 ####[facility] [address] [place], [address] MCHC (RBC) [Mass/Vol] 32.6 g/dL Normal 32-36 [facility] Comment on above: Performed By: #### L 500.2500, L100.0100 ####[facility] [address] [place], [address] MCV (RBC) [Entitic vol] 91.3 fL Normal 81-99 [facility] Comment on above: Performed By: #### L 500.2500, L100.0100 ####[facility] [address] [place], [address] Monocytes/100 WBC (Bld) 8.0 % Normal 0-10 [facility] Comment on above: Performed By: #### L 500.2500, L100.0100 ####[facility] [address] [place], [address] Neutrophils/100 WBC (Bld) 72.8 % High 47-70 [facility] Comment on above: Performed By: #### L 500.2500, L100.0100 ####[facility] [address] [place], [address] Nucleated RBC (Bld) [#/Vol] 0 10*3/uL Normal 0-5 [facility] Comment on above: Performed By: #### L 500.2500, L100.0100 ####[facility] [address] [place], [address] Platelet mean volume (Bld) [Entitic vol] 10.3 fL Normal 6.2-12.0 [facility] Comment on above: Performed By: #### L 500.2500, L100.0100 ####[facility] [address] [place], [address] Platelets (Bld) [#/Vol] 237 10*3/uL Normal 150-450 [facility] Comment on above: Performed By: #### L 500.2500, L100.0100 ####[facility] [address] [place], [address] RBC (Bld) [#/Vol] 3.56 10*6/uL Low 4.2-5.4 [facility] Comment on above: Performed By: #### L 500.2500, L100.0100 ####[facility] [address] [place], [address] RDW SD 45.9 fl High 35.1-43.9 [facility] Comment on above: Performed By: #### L 500.2500, L100.0100 ####[facility] [address] [place], [address] WBC (Bld) [#/Vol] 10.3 10*3/uL Normal 4.4-11.0 [facility] Comment on above: Performed By: #### L 500.2500, L100.0100 ####[facility] [address] [place], [address] Culture, Blood (WB)on 2023 CUB Blood cultures x2, f rom two different sites No growth in 5 days. Normal [facility] Comment on above: Performed By: #### L 500.2500, L100.0100 #### [facility] [address] [place], [address] Gram Stainon 09-23-2024 GS collected in OR; 5th metatarsal bone Gram Stain 2+ Red Blood Cells No organisms seen Normal [facility] Comment on above: Performed By: #### L 500.2500, L100.0100 #### [facility] [address] [place], [address] Ankle 2 Viewson 09-22-2024 Ankle 2 Views [facility] Imaging Services [address] [place] [address] Ankle 2 Views MR#: [id number] Acct: [id number] Name: KIESHA COLVIN Rep #: [id number] : 1940 F 84 From: Real Canseco MD PCP: Dr. Lianet Sullivan MD Status: ADM IN Study: Ankle 2 Views Date of Exam: 09/22/24 Exam# [id number] Ordering Dr: Ambrose Liu MD :[id number] STUDY: X-RAY - RIGHT FOOT CLINICAL: Female, 84 years old. PAIN TECHNIQUE: Single spot film of the right foot. COMPARISON: Right foot radiographs dated 09/18/2024. FINDINGS: Normal visualized calcaneus and tarsal bones. There is new resection of the fifth metatarsal head/neck. Normal first through fourth metatarsals. Major soft tissue swelling of the lateral aspect of the forefoot. RAD/Ankle 2 Views IMPRESSION: New resection of the fifth metatarsal head/neck. Electronically Signed: Real Canseco MD at 8:33 EST , CC: Dr. Ambrose Liu MD; Dr. Lianet Sullivan MD Regulatory Intern: Signed Normal [facility] Basic Metabolic Profile (BMP )on 09-22-2024 BUN/CRE 29.0 RATIO High 10-20 [facility] Comment on above: Performed By: #### L 100.0100, L500.2500 #### [facility] [address] [place], [address] CA,Total 9.2 mg/dL Normal 8.5-10.1 [facility] Comment on above: Performed By: #### L 100.0100, L500.2500 #### [facility] [address] [place], [address] Chloride [Moles/Vol] 102 mmol/L Normal 98-107 [facility] Comment on above: Performed By: #### L 100.0100, L500.2500 #### [facility] [address] [place], [address] CO2 [Moles/Vol] 25.0 mmol/L Normal 21.0-32.0 [facility] Comment on above: Performed By: #### L 100.0100, L500.2500 #### [facility] [address] [place], [address] Creatinine [Mass/Vol] 0.86 mg/dL Normal 0.55-1.02 [facility] Comment on above: Result Comment: The validity of the calculated GFR GFRAA in patients over 70 years has not been determined. Clinical correlation is essential. Performed By: #### L 100.0100, L500.2500 #### [facility] [address] [place], [address] ECRCL 55.75 ml/min Normal [facility] Comment on above: Performed By: #### L 100.0100, L500.2500 #### [facility] [address] [place], [address] EST GFR - AA 81 mL/min Normal >60 [facility] Comment on above: Result Comment: Afri can Armenian GFR Calc Performed By: #### L 100.0100, L500.2500 #### [facility] [address] [place], [address] GAP 5 Normal 5-15 [facility] Comment on above: Performed By: #### L 100.0100, L500.2500 #### [facility] [address] [place], [address] GFR/1.73 sq M.predicted among non-blacks MDRD (S/P/Bld) [Vol rate/Area] 67 mL/min/{1.73_m2} Normal >60 [facility] Comment on above: Result Comment: Non- GFR Calc Performed By: #### L 100.0100, L500.2500 #### [facility] [address] [place], [address] Glucose [Mass/Vol] 92 mg/dL Normal 74-106 [facility] Comment on above: Performed By: #### L 100.0100, L500.2500 #### [facility] [address] [place], [address] Potassium [Moles/Vol] 4.4 mmol/L Normal 3.5-5.1 [facility] Comment on above: Performed By: #### L 100.0100, L500.2500 #### [facility] [address] [place], [address] Sodium [Moles/Vol] 132 mmol/L Low 136-145 [facility] Comment on above: Performed By: #### L 100.0100, L500.2500 #### [facility] [address] [place], [address] Urea nitrogen [Mass/Vol] 25 mg/dL High 7-18 [facility] Comment on above: Performed By: #### L 100.0100, L500.2500 #### [facility] [address] [place], [address] CBC W/Diff, Automatedon 12 Absolute Lymph 1.46 X10 3/uL Normal 0.83-4.51 [facility] Comment on above: Performed By: #### L 100.0100, L500.2500 #### [facility] [address] [place], [address] Absolute Neut 3.5 X10 3/uL Normal 2.0-7.7 [facility] Comment on above: Performed By: #### L 100.0100, L500.2500 #### [facility] [address] [place], [address] Basophils/100 WBC (Bld) 0.8 % Normal 0-1 [facility] Comment on above: Performed By: #### L 100.0100, L500.2500 #### [facility] [address] [place], [address] Eosinophils/100 WBC (Bld) 6.1 % High 0-5 [facility] Comment on above: Performed By: #### L 100.0100, L500.2500 #### [facility] [address] [place], [address] Erythrocyte distribution width (RBC) [Ratio] 13.6 % Normal 11.6-14.6 [facility] Comment on above: Performed By: #### L 100.0100, L500.2500 #### [facility] [address] [place], [address] Hematocrit (Bld) [Volume fraction] 30.9 % Low 37-47 [facility] Comment on above: Performed By: #### L 100.0100, L500.2500 #### [facility] [address] [place], [address] Hemoglobin (Bld) [Mass/Vol] 10.4 g/dL Low 12.0-15.0 [facility] Comment on above: Performed By: #### L 100.0100, L500.2500 #### [facility] [address] [place], [address] IG% 1.400 High 0.0-0.9 [facility] Comment on above: Result Comment: IG% - Immature Granulocytes (promyelocytes, myelocytes and metamyelocytes) > 1% indicates that a LEFT SHIFT is Present. Performed By: #### L 100.0100, L500.2500 #### [facility] [address] [place], [address] Lymphocytes/100 WBC (Bld) 24.7 % Normal 19-41 [facility] Comment on above: Performed By: #### L 100.0100, L500.2500 #### [facility] [address] [place], [address] MCH (RBC) [Entitic mass] 29.5 pg Normal 27.0-32.0 [facility] Comment on above: Performed By: #### L 100.0100, L500.2500 #### [facility] [address] [place], [address] MCHC (RBC) [Mass/Vol] 33.7 g/dL Normal 32-36 [facility] Comment on above: Performed By: #### L 100.0100, L500.2500 #### [facility] [address] [place], [address] MCV (RBC) [Entitic vol] 87.5 fL Normal 81-99 [facility] Comment on above: Performed By: #### L 100.0100, L500.2500 #### [facility] [address] [place], [address] Monocytes/100 WBC (Bld) 8.6 % Normal 0-10 [facility] Comment on above: Performed By: #### L 100.0100, L500.2500 #### [facility] [address] [place], [address] Neutrophils/100 WBC (Bld) 58.4 % Normal 47-70 [facility] Comment on above: Performed By: #### L 100.0100, L500.2500 #### [facility] [address] [place], [address] Nucleated RBC (Bld) [#/Vol] 0 10*3/uL Normal 0-5 [facility] Comment on above: Performed By: #### L 100.0100, L500.2500 #### [facility] [address] [place], [address] Platelet mean volume (Bld) [Entitic vol] 10.1 fL Normal 6.2-12.0 [facility] Comment on above: Performed By: #### L 100.0100, L500.2500 #### [facility] [address] [place], [address] Platelets (Bld) [#/Vol] 257 10*3/uL Normal 150-450 [facility] Comment on above: Performed By: #### L 100.0100, L500.2500 #### [facility] [address] [place], [address] RBC (Bld) [#/Vol] 3.53 10*6/uL Low 4.2-5.4 [facility] Comment on above: Performed By: #### L 100.0100, L500.2500 #### [facility] [address] [place], [address] RDW SD 43.7 fl Normal 35.1-43.9 [facility] Comment on above: Performed By: #### L 100.0100, L500.2500 #### [facility] [address] [place], [address] WBC (Bld) [#/Vol] 5.9 10*3/uL Normal 4.4-11.0 [facility] Comment on above: Performed By: #### L 100.0100, L500.2500 #### [facility] [address] [place], [address] Consultation - Infectious Dx on 09-22-2024 Consultation - Infectious Dx [facility] Medical Records Department [address] [place] [address] Consultation - Infectious Dx 09/22/24 1350 MR#: [id number] Acct: [id number] Name: KIESHA COLVIN Rep #: [id number] : 1940 84 From: Bonilla Sheriff MD PCP: Dr. Lianet Sullivan MD Status:ADM IN Location: [facility] [place] Assessment Plan Assessment/Plan (1) Osteomyelitis: PLAN: R foot osteo. On vanc. OR today with Dr. Liu. Cdiff neg. H/o hives with PCN. Will add ceftriaxone and flagyl empirically. Will follow, thank you HPI Consult Data Date of Consult: 09/22/24 HPI Narrative Reason for Consultation: osteo HPI Narrative: KIESHA COLVIN, is a 84 F with h/o htn, peripheral neuropathy, presented with several days increased R foot pain, redness, swelling, and drainage. Denies fever or chills. Reports ulcer on R foot for about 6 months with intermittent infections that resolved with po abx. Now admitted, on vanc, seen by Dr. Liu, OR planned. Full ROS performed and neg except as noted above. [facility] Medical History Osteoporosis Irregular heart beat Hypertension Contusion of spinal cord Fall Wears glasses Wears dentures Arthritis Low iron High cholesterol History of hiatal hernia GERD (gastroesophageal reflux disease) CPAP (continuous positive airway pressure) dependence Sleep apnea Former smoker Cardiology follow-up encounter History of stress test CHARLENE (obstructive sleep apnea) Rheumatoid arthritis Hiatal hernia Abnormal EKG Essential hypertension Vitamin D deficiency Diverticulosis Anxiety and depression Rash HLD (hyperlipidemia) Other hereditary and idiopathic neuropathies Chronic ulcer of left foot with fat layer exposed Localized edema Venous insufficiency (chronic) (peripheral) Other specified peripheral vascular diseases 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 exposed CHARLENE (obstructive sleep apnea) Abnormal chest CT Lipodermatosclerosis Cellulitis of right leg Home Medications ???Medication ???Instructions ???Recorded ???Last Taken ???Type atorvastatin 20 mg tablet 20 mg PO QHS Cholesterol 12/15/15 09/17/24 History paroxetine HCl 20 mg tablet 20 mg PO DAILY Depression 12/15/15 09/17/24 History aspirin 81 mg tablet,delayed 81 mg PO DAILY Heart 07/19/22 09/18/24 History release (Adult Low Dose Aspirin) cholecalciferol (vitamin D3) 25 50 mcg PO DAILY Supplement 07/19/22 09/17/24 History mcg (1,000 unit) tablet acetaminophen 325 mg tablet 1,000 mg PO TID PRN PRN Pain Score 01/11/24 09/18/24 History (Tylenol) 1-10/Temp > 100.7 F lisinopril 2.5 mg tablet 2.5 mg PO 1700 #30 tabs 02/26/24 09/17/24 Rx omeprazole 20 mg capsule,delayed 20 mg PO DAILY Stomach acid #30 02/26/24 09/18/24 Rx release caps alendronate 70 mg tablet 70 mg PO QWEEK 09/18/24 09/15/24 History amlodipine 5 mg tablet 5 mg PO DAILY 09/18/24 09/18/24 History doxycycline hyclate 100 mg capsule 100 mg PO Q12H 09/18/24 09/18/24 History flaxseed oil 1,000 mg capsule 1,000 mg PO DAILY 09/18/24 09/18/24 History vitamin B complex (Vitamins B 1 cap PO DAILY 09/18/24 09/18/24 History Complex capsule) Allergy/AdvReac Type Severity Reaction Status Date / Time cephalexin (From Keflex) Allergy Unknown rash, Verified 09/18/24 15:01 headaches bee venom protein (honey bee) Allergy Anaphylaxis Verified 09/18/24 15:01 Penicillins Allergy Hives Verified 09/18/24 15:52 pantoprazole (From Protonix) AdvReac Intermediate Thrombocyto Verified 09/18/24 15:01 penia Family History Father Heart disease Mother Colon cancer Sister Colon cancer Brother CVA (cerebral vascular accident) COPD (chronic obstructive pulmonary disease) Surgical History History of esophagogastroduodenoscopy (EGD) History of colonoscopy History of cholecystectomy Hx of appendectomy History of hysterectomy History of bilateral knee replacement Social History household members: spouse housing: house number of children: 1 pets and animals: Yes (1 small dog and 2 outdoor cats) pets and animals: cat(s) and dog(s) leisure activities: other history of recent travel: No Smoking Status: Former smoker Tobacco: How many years used: 20 how long ago did patient quit smokin, 1ppd second hand exposure: Yes alcohol intake: never substance use type: does not use Physical Exam Const alert, oriented x3 and no apparent distress General Appearance: cooperative HEENT normocephalic and head/scalp atraumatic Eyes PERRL and EOMs intact bilaterally Neck supple and No nodes Resp normal air movement and clear to auscult (more content not included)... Normal [facility] Decalcification bone/plaqueo n 09-22-2024 Decalcification bone/plaque -------- Patient Age/Sex Location Account Attending Physician -------- KIESHA COLVIN 84/F MS3 [id number] Dr. Servando De Dios DO -------- Specimen: [id number] Received: 09/23/24 Status: ROQUE Dima Num: [id number] Spec Type: Bone Subm Dr: Dr. Ambrose Liu MD HEADER OPERATION: Post tibial tendon transfer, peroneal tendon transfer PRE-OP DIAGNOSIS: Osteomyelitis, Carvovarus deformity of foot, acquired TISSUE SUBMITTED: 5th metatarsal bone -------- MICROSCOPIC DIAGNOSIS Fifth metatarsal bone, excision: A piece of bone with acute osteomyelitis. Moderate to servando chronic osteomyelitis and reactive changes. 09/27/2024 GROSS DIAGNOSIS Correlation with clinical findings and appropriate follow up are necessary. MICROSCOPIC DESCRIPTION Slides are reviewed. GROSS DESCRIPTION Received in fixative is one container labeled with the patient's name and designated 5th metatarsal bone. The specimen consists of a piece of bone measuring 2.0 x 1.0 x 0.8cm. The entire specimen is submitted in one cassette after decalcification. 09/23/2024 TC:2 CPT:68543,81005 -------- Patient Age/Sex Location Account Attending Physician -------- KIESHA COLVIN 84/F MS3 [id number] Dr. Servando De Dios DO -------- Signed (signature on file) Dr. Willy Bliss MD 09/27/24 1235 -------- [facility] Comment on above: Performed By: #### P DEC ####[facility] [address] [place], [address] MR/POSTOP.ANEon 09-22-2024 MR/POSTOP.ANE [facility] Medical Records Department [address] [place] [address] Anesthesia Postop Eval I 09/22/242245 MR#: [id number] Acct: [id number] Name: KIESHA COLVIN Laurita Rep #: [id number] : 1940 84 From: Mayito Salcedo MD PCP: Dr. Lianet Sullivan MD Status:ADM IN Y Race: C Location: [place] [address] Anesthesia: Postop Eval I Current Vital Signs Temperature: 98.4 F Pulse Rate: 53 Blood Pressure: 139/46 Respiratory Rate: 16 Pulse Ox: 94 Oxygen Delivery Method: Room Air Assessment Airway patent: Yes Spontaneous unlabored respirations: Yes Mental status: Awake and Calm nausea: No Vomiting: No Anesthesia Complication: No Fluid Hydration Crystalloid volume administer (ml): 600 Total IV fluid infused: 600 Progress Note Anesthesia document: Postop Eval 1 completed: Yes 09/22/242247 Date Mayito Salcedo MD Cosigner Signature: Date CC: Signed Normal [facility] MR/[id number] 09-22-2024 MR/POSTOPAN2 [facility] Medical Records Department [address] [place] [address] Anesthesia Postop Eval II 09/22/24 2332 MR#: [id number] Acct: [id number] Name: KIESHA COLVIN Rep #: [id number] : 1940 84 From: Mayito Salcedo MD PCP: Dr. Lianet Sullivan MD Status:ADM IN Y Race: C Location: MS3 [id number] Anesthesia Postop Eval I Sum Postop Eval Completion status Anesthesia document: Postop Eval 1 completed: Yes Anesthesia Postop Eval I Summary Anesthesia Postop Eval I Summary: Anesthesia Postop Eval I: Assessment Summary Airway patent Yes 09/22/24 22:48 Spontaneous unlabored Yes 09/22/24 22:48 respirations Mental status Awake,Calm 09/22/24 22:48 nausea No 09/22/24 22:48 Vomiting No 09/22/24 22:48 Anesthesia Postop Eval I: Fluid Summary Crystalloid volume administer 600 09/22/24 22:48 (ml) Colloids volume administered ( ml) Blood Product volume administered (ml) Total IV fluid infused 600 09/22/24 22:48 Anesthesia Postop Eval I: Summary Notes Anesthesia Complication No 09/22/24 22:48 Anesthesia Complication Comment: Post-operative progress note Anesthesia: Postop Eval II Evaluation Mental status: Awake and Calm Pain Level: 1 nausea: No Vomiting: No Complications Anesthesia Complication: No 09/22/24 2332 Date Mayito Salcedo MD Cosigner Signature: Date CC: Signed Normal [facility] Vancomycin, Trough Levelon 11-23-2023 VANCO, TROUGH 16.6 ug/mL High 5.0-15.0 [facility] Comment on above: Order Comment: Comme nts: Trough to be drawn 30 mins prior to scheduled [id number] Result Comment: VANC OMYCIN STANDARED DRUG THERAPY TROUGH LEVEL: 5.0 - 15.0 mg/L VANCOMYCIN HIGH INTENSITY THERAPY TROUGH LEVEL: 15.0 - 20.0 mg/L High Intensity therapy recommended for serious life threatening infections include: - Meningitis -Endocarditis -Pneumonia (Ventilator/Healtcare Associated) -Sepsis PLEASE CONTACT PHARMACY SERVICES (#[id number]) FOR INTERPRETATION OF RESULTS. Performed By: #### L 501.5427 #### [facility] [address] [facility] [place], [address] 12 Lead EKGon 09-21-2024 12 Lead EKG [facility] Cardiovascular Services [address] [facility] [place] [address] 12 Lead EKG 09/22/24 0510 MR#: [id number] Acct: [id number] Name: KIESHA COLVIN Rep #: [id number] : 1940 84 From: Napoleon Akbar MD Attending Dr: Dr. Josette Olivares MD Status: AD M IN Ordering Dr: Maycol Suárez MD Date: 09/21/24 Location: [facility] Sex: F C Admitted: 09/18/24 Test Reason : PRE-OP Blood Pressure : */* mmHG Vent. Rate : 57 BPM Atrial Rate : 57 BPM P-R Int : 184 ms QRS Dur : 92 ms QT Int : 426 ms P-R-T Axes : 5 -5 81 degrees QTcB Int : 414 ms Sinus bradycardia with sinus arrhythmia Septal infarct (cited on or before 01-Jun-2022) Abnormal ECG When compared with ECG of 01-Jun-2022 10:51, QRS duration has increased Questionable change in initial forces of Septal leads Confirmed by RAFFY BOURGEOIS, NAPOLEON ([id number]), movie editor JAYNA FINNEGAN ([id number]) on 09/23/2024 5:58:10 AM Referred By: BOUBACAR Confirmed By: NAPOLEON AKBAR MD 09/23/24 0558 Date Napoleon Akbar MD CC: Dr. Maycol Suárez MD; Dr. Lianet Sullivan MD; Dr. Josette Olivares MD Signed Normal [facility] Basic Metabolic Profile (BMP )on 09-21-2024 BUN/CRE 25.6 RATIO High 10-20 [facility] Comment on above: Performed By: #### L [id number] #### [facility] [address] [place], [address] CA,Total 9.2 mg/dL Normal 8.5-10.1 [facility] Comment on above: Performed By: #### L 501.8850 #### [facility] [address] [place], [address] Chloride [Moles/Vol] 103 mmol/L Normal 98-107 [facility] Comment on above: Performed By: #### L 501.8850 #### [facility] [address] [place], [address] CO2 [Moles/Vol] 24.0 mmol/L Normal 21.0-32.0 [facility] Comment on above: Performed By: #### L 501.8050 #### [facility] [address] [place], [address] Creatinine [Mass/Vol] 0.86 mg/dL Normal 0.55-1.02 [facility] Comment on above: Result Comment: The validity of the calculated GFR GFRAA in patients over 70 years has not been determined. Clinical correlation is essential. Performed By: #### L [id number] #### [facility] [address] [place], [address] ECRCL 55.75 ml/min Normal [facility] Comment on above: Performed By: #### L 501.8850 #### [facility] [address] [place], [address] EST GFR - AA 81 mL/min Normal >60 [facility] Comment on above: Result Comment: Afri can Armenian GFR Calc Performed By: #### L 501.4850 #### [facility] [address] [place], [address] GAP 7 Normal 5-15 [facility] Comment on above: Performed By: #### L 501.8850 #### [facility] [address] [place], [address] GFR/1.73 sq M.predicted among non-blacks MDRD (S/P/Bld) [Vol rate/Area] 67 mL/min/{1.73_m2} Normal >60 [facility] Comment on above: Result Comment: Non- GFR Calc Performed By: #### L 501.8850 #### [facility] [address] [place], [address] Glucose [Mass/Vol] 99 mg/dL Normal 74-106 [facility] Comment on above: Performed By: #### L 501.8850 #### [facility] [address] [place], [address] Potassium [Moles/Vol] 4.0 mmol/L Normal 3.5-5.1 [facility] Comment on above: Performed By: #### L 501.8850 #### [facility] [address] [place], [address] Sodium [Moles/Vol] 134 mmol/L Low 136-145 [facility] Comment on above: Performed By: #### L 501.8850 #### [facility] [address] [place], [address] Urea nitrogen [Mass/Vol] 22 mg/dL High 7-18 [facility] Comment on above: Performed By: #### L 501.8850 #### [facility] [address] [place], [address] CBC W/Diff, Automatedon 09-05 Absolute Lymph 1.81 X10 3/uL Normal 0.83-4.51 [facility] Comment on above: Performed By: #### L 501.8850 #### [facility] [address] [place], [address] Absolute Neut 3.3 X10 3/uL Normal 2.0-7.7 [facility] Comment on above: Performed By: #### L 501.8850 #### [facility] [address] [place], [address] Basophils/100 WBC (Bld) 0.8 % Normal 0-1 [facility] Comment on above: Performed By: #### L 501.8850 #### [facility] [address] [place], [address] Eosinophils/100 WBC (Bld) 5.7 % High 0-5 [facility] Comment on above: Performed By: #### L 501.8850 #### [facility] [address] [place], [address] Erythrocyte distribution width (RBC) [Ratio] 13.4 % Normal 11.6-14.6 [facility] Comment on above: Performed By: #### L 501.8850 #### [facility] [address] [place], [address] Hematocrit (Bld) [Volume fraction] 33.4 % Low 37-47 [facility] Comment on above: Performed By: #### L 501.8850 #### [facility] [address] [place], [address] Hemoglobin (Bld) [Mass/Vol] 10.8 g/dL Low 12.0-15.0 [facility] Comment on above: Performed By: #### L 501.8850 #### [facility] [address] [place], [address] IG% 1.100 High 0.0-0.9 [facility] Comment on above: Result Comment: IG% - Immature Granulocytes (promyelocytes, myelocytes and metamyelocytes) > 1% indicates that a LEFT SHIFT is Present. Performed By: #### L 501.5750 #### [facility] [address] [place], [address] Lymphocytes/100 WBC (Bld) 29.3 % Normal 19-41 [facility] Comment on above: Performed By: #### L 501.8850 #### [facility] [address] [place], [address] MCH (RBC) [Entitic mass] 29.0 pg Normal 27.0-32.0 [facility] Comment on above: Performed By: #### L 501.8850 #### [facility] [address] [place], [address] MCHC (RBC) [Mass/Vol] 32.3 g/dL Normal 32-36 [facility] Comment on above: Performed By: #### L 501.8850 #### [facility] [address] [place], [address] MCV (RBC) [Entitic vol] 89.8 fL Normal 81-99 [facility] Comment on above: Performed By: #### L 501.8850 #### [facility] [address] [place], [address] Monocytes/100 WBC (Bld) 9.1 % Normal 0-10 [facility] Comment on above: Performed By: #### L 501.8850 #### [facility] [address] [place], [address] Neutrophils/100 WBC (Bld) 54.0 % Normal 47-70 [facility] Comment on above: Performed By: #### L 501.8850 #### [facility] [address] [place], [address] Nucleated RBC (Bld) [#/Vol] 0 10*3/uL Normal 0-5 [facility] Comment on above: Performed By: #### L 501.8850 #### [facility] [address] [place], [address] Platelet mean volume (Bld) [Entitic vol] 10.7 fL Normal 6.2-12.0 [facility] Comment on above: Performed By: #### L 501.8850 #### [facility] [address] [place], [address] Platelets (Bld) [#/Vol] 233 10*3/uL Normal 150-450 [facility] Comment on above: Performed By: #### L 501.8850 #### [facility] [address] [place], [address] RBC (Bld) [#/Vol] 3.72 10*6/uL Low 4.2-5.4 [facility] Comment on above: Performed By: #### L 501.8850 #### [facility] [address] [place], [address] RDW SD 44.3 fl High 35.1-43.9 [facility] Comment on above: Performed By: #### L 501.8850 #### [facility] [address] [place], [address] WBC (Bld) [#/Vol] 6.2 10*3/uL Normal 4.4-11.0 [facility] Comment on above: Performed By: #### L 501.8850 #### [facility] [address] [place], [address] CDIFF (PCR)on 09-21-2024 CDIFF Is the patient recei ving laxatives? N New/unexplained onset of 3 or more stools in past 24 hrs? Y Pending 027 027 NAP1-B1 Presumptive Negative *for epidemiolologic???use C. Diff PCR Negative- No toxigenic C. Diff Detected Normal [facility] Comment on above: Performed By: #### M 100.6796 ####[facility] [address] [place], [address] Basic Metabolic Profile (BMP )on 09-20-2024 BUN/CRE 14.3 RATIO Normal 10-20 [facility] Comment on above: Performed By: #### L 100.0100, L500.2500 #### [facility] [address] [place], [address] CA,Total 8.9 mg/dL Normal 8.5-10.1 [facility] Comment on above: Performed By: #### L 100.0100, L500.2500 #### [facility] [address] [place], [address] Chloride [Moles/Vol] 103 mmol/L Normal 98-107 [facility] Comment on above: Performed By: #### L 100.0100, L500.2500 #### [facility] [address] [place], [address] CO2 [Moles/Vol] 26.0 mmol/L Normal 21.0-32.0 [facility] Comment on above: Performed By: #### L 100.0100, L500.2500 #### [facility] [address] [place], [address] Creatinine [Mass/Vol] 0.84 mg/dL Normal 0.55-1.02 [facility] Comment on above: Result Comment: The validity of the calculated GFR GFRAA in patients over 70 years has not been determined. Clinical correlation is essential. Performed By: #### L 100.0100, L500.2500 #### [facility] [address] [place], [address] ECRCL 57.08 ml/min Normal [facility] Comment on above: Performed By: #### L 100.0100, L500.2500 #### [facility] [address] [place], [address] EST GFR - AA 83 mL/min Normal >60 [facility] Comment on above: Result Comment: Afri can Armenian GFR Calc Performed By: #### L 100.0100, L500.2500 #### [facility] [address] [place], [address] GAP 6 Normal 5-15 [facility] Comment on above: Performed By: #### L 100.0100, L500.2500 #### [facility] [address] [place], [address] GFR/1.73 sq M.predicted among non-blacks MDRD (S/P/Bld) [Vol rate/Area] 69 mL/min/{1.73_m2} Normal >60 [facility] Comment on above: Result Comment: Non- GFR Calc Performed By: #### L 100.0100, L500.2500 #### [facility] [address] [place], [address] Glucose [Mass/Vol] 96 mg/dL Normal 74-106 [facility] Comment on above: Performed By: #### L 100.0100, L500.2500 #### [facility] [address] [place], [address] Potassium [Moles/Vol] 4.0 mmol/L Normal 3.5-5.1 [facility] Comment on above: Performed By: #### L 100.0100, L500.2500 #### [facility] [address] [place], [address] Sodium [Moles/Vol] 134 mmol/L Low 136-145 [facility] Comment on above: Performed By: #### L 100.0100, L500.2500 #### [facility] [address] [place], [address] Urea nitrogen [Mass/Vol] 12 mg/dL Normal 7-18 [facility] Comment on above: Performed By: #### L 100.0100, L500.2500 #### [facility] [address] [place], [address] CBC W/Diff, Automatedon 12- Absolute Lymph 1.81 X10 3/uL Normal 0.83-4.51 [facility] Comment on above: Performed By: #### L 100.0100, L500.2500 #### [facility] [address] [place], [address] Absolute Neut 2.6 X10 3/uL Normal 2.0-7.7 [facility] Comment on above: Performed By: #### L 100.0100, L500.2500 #### [facility] [address] [place], [address] Basophils/100 WBC (Bld) 0.7 % Normal 0-1 [facility] Comment on above: Performed By: #### L 100.0100, L500.2500 #### [facility] [address] [place], [address] Eosinophils/100 WBC (Bld) 5.4 % High 0-5 [facility] Comment on above: Performed By: #### L 100.0100, L500.2500 #### [facility] [address] [place], [address] Erythrocyte distribution width (RBC) [Ratio] 13.5 % Normal 11.6-14.6 [facility] Comment on above: Performed By: #### L 100.0100, L500.2500 #### [facility] [address] [place], [address] Hematocrit (Bld) [Volume fraction] 29.7 % Low 37-47 [facility] Comment on above: Performed By: #### L 100.0100, L500.2500 #### [facility] [address] [place], [address] Hemoglobin (Bld) [Mass/Vol] 9.9 g/dL Low 12.0-15.0 [facility] Comment on above: Performed By: #### L 100.0100, L500.2500 #### [facility] [address] [place], [address] IG% 0.700 Normal 0.0-0.9 [facility] Comment on above: Result Comment: IG% - Immature Granulocytes (promyelocytes, myelocytes and metamyelocytes) > 1% indicates that a LEFT SHIFT is Present. Performed By: #### L 100.0100, L500.2500 #### [facility] [address] [place], [address] Lymphocytes/100 WBC (Bld) 33.8 % Normal 19-41 [facility] Comment on above: Performed By: #### L 100.0100, L500.2500 #### [facility] [address] [place], [address] MCH (RBC) [Entitic mass] 29.7 pg Normal 27.0-32.0 [facility] Comment on above: Performed By: #### L 100.0100, L500.2500 #### [facility] [address] [place], [address] MCHC (RBC) [Mass/Vol] 33.3 g/dL Normal 32-36 [facility] Comment on above: Performed By: #### L 100.0100, L500.2500 #### [facility] [address] [place], [address] MCV (RBC) [Entitic vol] 89.2 fL Normal 81-99 [facility] Comment on above: Performed By: #### L 100.0100, L500.2500 #### [facility] [address] [place], [address] Monocytes/100 WBC (Bld) 10.1 % High 0-10 [facility] Comment on above: Performed By: #### L 100.0100, L500.2500 #### [facility] [address] [place], [address] Neutrophils/100 WBC (Bld) 49.3 % Normal 47-70 [facility] Comment on above: Performed By: #### L 100.0100, L500.2500 #### [facility] [address] [place], [address] Nucleated RBC (Bld) [#/Vol] 0 10*3/uL Normal 0-5 [facility] Comment on above: Performed By: #### L 100.0100, L500.2500 #### [facility] [address] [place], [address] Platelet mean volume (Bld) [Entitic vol] 10.3 fL Normal 6.2-12.0 [facility] Comment on above: Performed By: #### L 100.0100, L500.2500 #### [facility] [address] [place], [address] Platelets (Bld) [#/Vol] 227 10*3/uL Normal 150-450 [facility] Comment on above: Performed By: #### L 100.0100, L500.2500 #### [facility] [address] [place], [address] RBC (Bld) [#/Vol] 3.33 10*6/uL Low 4.2-5.4 [facility] Comment on above: Performed By: #### L 100.0100, L500.2500 #### [facility] [address] [place], [address] RDW SD 44.3 fl High 35.1-43.9 [facility] Comment on above: Performed By: #### L 100.0100, L500.2500 #### [facility] [address] [place], [address] WBC (Bld) [#/Vol] 5.4 10*3/uL Normal 4.4-11.0 [facility] Comment on above: Performed By: #### L 100.0100, L500.2500 #### [facility] [address] [place], [address] Lower Ext Art Exam w/o Exerc kendrick 09-20-2024 Lower Ext Art Exam w/o Exercis [facility] [address] [place] [address] Lower Ext Art Exam w/o Exercis 09/21/24 0836 MR#: [id number] Acct: [id number] Name: KIESHA COLVIN Rep #: [id number] : 1940 84 From: Alfredo Farris MD Attending Dr: Dr. Josette Olivares MD Status: AD M IN Ordering Dr: Ambrose Liu MD Date: 09/20/24 Location: MS3 Sex: F C Admitted: 09/18/24 Reason For Study: Ulcer Procedure A bilateral lower extremity continuous wave Doppler with analog waveform analysis,segmental pressures,and ankle brachial indexes without exercise. Left Segmental Pressures Left brachial= 129mmHg. Left posterior tibial artery = 154mmHg. Left dorsalis pedis artery = 133mmHg. Left digit = 109 mmHg. The left dorsalis pedis waveforms are triphasic. The left posterior tibial artery waveforms are triphasic. Right Segmental Pressures Right brachial= 130mmHg. Right posterior tibial artery = 153mmHg. Right dorsalis pedis artery = 140mmHg. Right digit = 95 mmHg. The right dorsalis pedis waveforms are triphasic. The right posterior tibial artery waveforms are triphasic. Indices The right ankle brachial index by the dorsalis pedis is 1.08. The right ankle brachial index by the posterior tibial artery is 1.18. The right digital-brachial index is 0.73. The left ankle brachial index by the dorsalis pedis is 1.02. The left ankle brachial index by the posterior tibial artery is 1.18. The left digital-brachial index is 0.84. VL/Lower Ext Art Exam w/o Exercis Interpretation Summary Right KATHLEEN 1.18, normal. Doppler/PVR waveforms of the right leg normal at rest. TBI diminished, pedal/digit disease vs spasm. Left KATHLEEN 1.18, normal. TBI and Doppler/PVR waveforms of the left leg normal at rest. Ordering Physician: Ambrose Liu Referring Physician: Lianet Sullivan M.D. Performed By: Brigette Cavazos RVT and Student 09/21/241724 Date Alfredo Farris MD CC: Dr. Ambrose Liu MD; Dr. Lianet Sullivan MD; Dr. Josette Olivares MD Date Dictated: 09/21/24835 Date Transcribed: 09/21/241724 Regulatory Intern: Signed Normal [facility] Lower Ext No Joint W/WO Cont on 09-20-2024 Lower Ext No Joint W/WO Cont [facility] Imaging Services [address] [place] [id number] Lower Ext No Joint W/WO Cont MR#: [id number] Acct: [id number] Name: KIESHA COLVIN Rep #: [id number] : 1940 F 84 From: Mich Gorman DO PCP: Dr. Lianet [place] MD Status: ADM IN Study: Lower Ext No Joint W/WO Cont Date of Exam: Exam# [id number] Ordering Dr: Ambrose Liu MD :[id number] INDICATION: osteomeylitis right foot, CHRONIC ULCER HEAD OF 5TH MT, CELLULITIS EXAMINATION: MRI - RIGHT MR Forefoot WO/W Contrast TECHNIQUE: Multiplanar and multisequence MR images of the RIGHT foot. IV Contrast Dosage and Agent: None. COMPARISON: FINDINGS: No fracture. Marrow edema is noted of the fifth metatarsus and the proximal phalanx of the fifth toe suggesting osteomyelitis. No joint effusion. There is subcutaneous edema more significant laterally. MRI/Lower Ext No Joint W/WO Cont IMPRESSION: Marrow edema is noted of the fifth metatarsus and the proximal phalanx of the fifth toe suggesting osteomyelitis. Electronically Signed: Mich Gorman DO at 19:23 EST Reading Location ID and State: [facility] / [place] Tel [phone], Service support , CC: Dr. Ambrose Liu MD; Dr. Lianet [place] MD Regulatory Intern: Signed Normal [facility] Vancomycin, Trough Levelon 1 11-21-2023 VANCO, TROUGH 15.7 ug/mL High 5.0-15.0 [facility] Comment on above: Order Comment: 0200 Result Comment: VANC OMYCIN STANDARED DRUG THERAPY TROUGH LEVEL: 5.0 - 15.0 mg/L VANCOMYCIN HIGH INTENSITY THERAPY TROUGH LEVEL: 15.0 - 20.0 mg/L High Intensity therapy recommended for serious life threatening infections include: - Meningitis -Endocarditis -Pneumonia (Ventilator/Healtcare Associated) -Sepsis PLEASE CONTACT PHARMACY SERVICES (#[id number]) FOR INTERPRETATION OF RESULTS. Performed By: #### L 501.8820 ####[facility] [address] [place], [place], [id number] Basic Metabolic Profile (BMP )on 09-19-2024 BUN/CRE 14.6 RATIO Normal - [facility] Comment on above: Performed By: #### L 100.0100, L501.5200, L501.2300, L501.9520, L300.3900, L500.2500, L500.3400 ####[facility] [address] [place], [address] CA,Total 8.6 mg/dL Normal 8.5-10.1 [facility] Comment on above: Performed By: #### L 100.0100, L501.5200, L501.2300, L501.9520, L300.3900, L500.2500, L500.3400 ####[facility] [address] [place], [address] Chloride [Moles/Vol] 102 mmol/L Normal 98-107 [facility] Comment on above: Performed By: #### L 100.0100, L501.5200, L501.2300, L501.9520, L300.3900, L500.2500, L500.3400 ####[facility] [address] [place], [address] CO2 [Moles/Vol] 27.0 mmol/L Normal 21.0-32.0 [facility] Comment on above: Performed By: #### L 100.0100, L501.5200, L501.2300, L501.9520, L300.3900, L500.2500, L500.3400 ####[facility] [address] [place], [address] Creatinine [Mass/Vol] 0.82 mg/dL Normal 0.55-1.02 [facility] Comment on above: Result Comment: The validity of the calculated GFR GFRAA in patients over 70 years has not been determined. Clinical correlation is essential. Performed By: #### L 100.0100, L501.5200, L501.2300, L501.9520, L300.3900, L500.2500, L500.3400 ####[facility] [address] [place], [address] ECRCL 58.47 ml/min Normal [facility] Comment on above: Performed By: #### L 100.0100, L501.5200, L501.2300, L501.9520, L300.3900, L500.2500, L500.3400 ####[facility] [address] [place], [address] EST GFR - AA 85 mL/min Normal >60 [facility] Comment on above: Result Comment: Afri can Armenian GFR Calc Performed By: #### L 100.0100, L501.5200, L501.2300, L501.9520, L300.3900, L500.2500, L500.3400 ####[facility] [address] [place], [address] GAP 6 Normal 5-15 [facility] Comment on above: Performed By: #### L 100.0100, L501.5200, L501.2300, L501.9520, L300.3900, L500.2500, L500.3400 ####[facility] [address] [place], [address] GFR/1.73 sq M.predicted among non-blacks MDRD (S/P/Bld) [Vol rate/Area] 70 mL/min/{1.73_m2} Normal >60 [facility] Comment on above: Result Comment: Non- GFR Calc Performed By: #### L 100.0100, L501.5200, L501.2300, L501.9520, L300.3900, L500.2500, L500.3400 ####[facility] [address] [place], [address] Glucose [Mass/Vol] 91 mg/dL Normal 74-106 [facility] Comment on above: Performed By: #### L 100.0100, L501.5200, L501.2300, L501.9520, L300.3900, L500.2500, L500.3400 ####[facility] [address] [place], [address] Potassium [Moles/Vol] 4.2 mmol/L Normal 3.5-5.1 [facility] Comment on above: Performed By: #### L 100.0100, L501.5200, L501.2300, L501.9520, L300.3900, L500.2500, L500.3400 ####[facility] [address] [place], [address] Sodium [Moles/Vol] 135 mmol/L Low 136-145 [facility] Comment on above: Performed By: #### L 100.0100, L501.5200, L501.2300, L501.9520, L300.3900, L500.2500, L500.3400 ####[facility] [address] [place], [address] Urea nitrogen [Mass/Vol] 12 mg/dL Normal 7-18 [facility] Comment on above: Performed By: #### L 100.0100, L501.5200, L501.2300, L501.9520, L300.3900, L500.2500, L500.3400 ####[facility] [address] [place], [address] CBC W/Diff, Automatedon 12- Absolute Lymph 1.70 X10 3/uL Normal 0.83-4.51 [facility] Comment on above: Performed By: #### L 100.0100, L501.5200, L501.2300, L501.9520, L300.3900, L500.2500, L500.3400 ####[facility] [address] [place], [address] Absolute Neut 3.4 X10 3/uL Normal 2.0-7.7 [facility] Comment on above: Performed By: #### L 100.0100, L501.5200, L501.2300, L501.9520, L300.3900, L500.2500, L500.3400 ####[facility] [address] [place], [address] Basophils/100 WBC (Bld) 0.5 % Normal 0-1 [facility] Comment on above: Performed By: #### L 100.0100, L501.5200, L501.2300, L501.9520, L300.3900, L500.2500, L500.3400 ####[facility] [address] [place], [address] Eosinophils/100 WBC (Bld) 4.0 % Normal 0-5 [facility] Comment on above: Performed By: #### L 100.0100, L501.5200, L501.2300, L501.9520, L300.3900, L500.2500, L500.3400 ####[facility] [address] [place], [address] Erythrocyte distribution width (RBC) [Ratio] 13.7 % Normal 11.6-14.6 [facility] Comment on above: Performed By: #### L 100.0100, L501.5200, L501.2300, L501.9520, L300.3900, L500.2500, L500.3400 ####[facility] [address] [place], [address] Hematocrit (Bld) [Volume fraction] 28.6 % Low 37-47 [facility] Comment on above: Performed By: #### L 100.0100, L501.5200, L501.2300, L501.9520, L300.3900, L500.2500, L500.3400 ####[facility] [address] [place], [address] Hemoglobin (Bld) [Mass/Vol] 9.5 g/dL Low 12.0-15.0 [facility] Comment on above: Performed By: #### L 100.0100, L501.5200, L501.2300, L501.9520, L300.3900, L500.2500, L500.3400 ####[facility] [address] [place], [address] IG% 0.700 Normal 0.0-0.9 [facility] Comment on above: Result Comment: IG% - Immature Granulocytes (promyelocytes, myelocytes and metamyelocytes) > 1% indicates that a LEFT SHIFT is Present. Performed By: #### L 100.0100, L501.5200, L501.2300, L501.9520, L300.3900, L500.2500, L500.3400 ####[facility] [address] [place], [address] Lymphocytes/100 WBC (Bld) 29.2 % Normal 19-41 [facility] Comment on above: Performed By: #### L 100.0100, L501.5200, L501.2300, L501.9520, L300.3900, L500.2500, L500.3400 ####[facility] [address] [place], [address] MCH (RBC) [Entitic mass] 29.7 pg Normal 27.0-32.0 [facility] Comment on above: Performed By: #### L 100.0100, L501.5200, L501.2300, L501.9520, L300.3900, L500.2500, L500.3400 ####[facility] [address] [place], [address] MCHC (RBC) [Mass/Vol] 33.2 g/dL Normal 32-36 [facility] Comment on above: Performed By: #### L 100.0100, L501.5200, L501.2300, L501.9520, L300.3900, L500.2500, L500.3400 ####[facility] [address] [place], [address] MCV (RBC) [Entitic vol] 89.4 fL Normal 81-99 [facility] Comment on above: Performed By: #### L 100.0100, L501.5200, L501.2300, L501.9520, L300.3900, L500.2500, L500.3400 ####[facility] [address] [place], [address] Monocytes/100 WBC (Bld) 7.9 % Normal 0-10 [facility] Comment on above: Performed By: #### L 100.0100, L501.5200, L501.2300, L501.9520, L300.3900, L500.2500, L500.3400 ####[facility] [address] [place], [address] Neutrophils/100 WBC (Bld) 57.7 % Normal 47-70 [facility] Comment on above: Performed By: #### L 100.0100, L501.5200, L501.2300, L501.9520, L300.3900, L500.2500, L500.3400 ####[facility] [address] [place], [address] Nucleated RBC (Bld) [#/Vol] 0 10*3/uL Normal 0-5 [facility] Comment on above: Performed By: #### L 100.0100, L501.5200, L501.2300, L501.9520, L300.3900, L500.2500, L500.3400 ####[facility] [address] [place], [address] Platelet mean volume (Bld) [Entitic vol] 10.4 fL Normal 6.2-12.0 [facility] Comment on above: Performed By: #### L 100.0100, L501.5200, L501.2300, L501.9520, L300.3900, L500.2500, L500.3400 ####[facility] [address] [place], [address] Platelets (Bld) [#/Vol] 212 10*3/uL Normal 150-450 [facility] Comment on above: Performed By: #### L 100.0100, L501.5200, L501.2300, L501.9520, L300.3900, L500.2500, L500.3400 ####[facility] [address] [place], [address] RBC (Bld) [#/Vol] 3.20 10*6/uL Low 4.2-5.4 [facility] Comment on above: Performed By: #### L 100.0100, L501.5200, L501.2300, L501.9520, L300.3900, L500.2500, L500.3400 ####[facility] [address] [place], [address] RDW SD 44.7 fl High 35.1-43.9 [facility] Comment on above: Performed By: #### L 100.0100, L501.5200, L501.2300, L501.9520, L300.3900, L500.2500, L500.3400 ####[facility] [address] [place], [address] WBC (Bld) [#/Vol] 5.8 10*3/uL Normal 4.4-11.0 [facility] Comment on above: Performed By: #### L 100.0100, L501.5200, L501.2300, L501.9520, L300.3900, L500.2500, L500.3400 ####[facility] [address] [place], [address] Liver Profileon 09-19-2024 Albumin [Mass/Vol] 2.7 g/dL Low 3.2-5.0 [facility] Comment on above: Performed By: #### L 100.0100, L501.5200, L501.2300, L501.9520, L300.3900, L500.2500, L500.3400 ####[facility] [address] [place], [address] ALK P 46 U/L Normal 45-117 [facility] Comment on above: Performed By: #### L 100.0100, L501.5200, L501.2300, L501.9520, L300.3900, L500.2500, L500.3400 ####[facility] [address] [place], [address] ALT [Catalytic activity/Vol] 13 U/L Normal 13-56 [facility] Comment on above: Performed By: #### L 100.0100, L501.5200, L501.2300, L501.9520, L300.3900, L500.2500, L500.3400 ####[facility] [address] [place], [address] AST [Catalytic activity/Vol] 14 U/L Low 15-37 [facility] Comment on above: Performed By: #### L 100.0100, L501.5200, L501.2300, L501.9520, L300.3900, L500.2500, L500.3400 ####[facility] [address] [place], [address] Bilirubin [Mass/Vol] 0.50 mg/dL Normal 0.20-1.00 [facility] Comment on above: Result Comment: For patients on eltrombopag therapy, use of Dimension [place] TBIL is not recommended. Performed By: #### L 100.0100, L501.5200, L501.2300, L501.9520, L300.3900, L500.2500, L500.3400 ####[facility] [address] [place], [address] Bilirubin.direct [Mass/Vol] 0.16 mg/dL Normal 0.00-0.30 [facility] Comment on above: Performed By: #### L 100.0100, L501.5200, L501.2300, L501.9520, L300.3900, L500.2500, L500.3400 ####[facility] [address] [place], [address] Globulin (S) [Mass/Vol] 3.9 g/dL Normal 2.2-4.2 [facility] Comment on above: Performed By: #### L 100.0100, L501.5200, L501.2300, L501.9520, L300.3900, L500.2500, L500.3400 ####[facility] [address] [place], [address] T PROT 6.6 g/dL Normal 6.4-8.2 [facility] Comment on above: Performed By: #### L 100.0100, L501.5200, L501.2300, L501.9520, L300.3900, L500.2500, L500.3400 ####[facility] [address] [place], [address] Magnesiumon 09-19-2024 Magnesium [Mass/Vol] 1.7 mg/dL Normal 1.6-2.6 [facility] Comment on above: Performed By: #### L 100.0100, L501.5200, L501.2300, L501.9520, L300.3900, L500.2500, L500.3400 ####[facility] [address] [place], [address] Phosphoruson 09-19-2024 Phosphate [Mass/Vol] 4.0 mg/dL Normal 2.5-4.9 [facility] Comment on above: Performed By: #### L 100.0100, L501.5200, L501.2300, L501.9520, L300.3900, L500.2500, L500.3400 ####[facility] [address] [place], [address] Prothrombin Time w/INRon INR Coag (PPP) [Relative time] 1.2 {INR} Normal [facility] Comment on above: Performed By: #### L 100.0100, L501.5200, L501.2300, L501.9520, L300.3900, L500.2500, L500.3400 ####[facility] [address] [place], [address] PT Coag (PPP) [Time] 14.7 s Normal 11.7-14.9 [facility] Comment on above: Performed By: #### L 100.0100, L501.5200, L501.2300, L501.9520, L300.3900, L500.2500, L500.3400 ####[facility] [address] [place], [address] Thyroid Stim Hormone (TSH)on 09-19-2024 TSH 2.480 uIU/mL Normal 0.358-3.74 0 [facility] Comment on above: Performed By: #### L 100.0100, L501.5200, L501.2300, L501.9520, L300.3900, L500.2500, L500.3400 ####[facility] [address] [place], [address] Basic Metabolic Profile (BMP )on 09-18-2024 BUN/CRE 18.0 RATIO Normal 10-20 [facility] Comment on above: Performed By: #### L 202.2763 #### [facility] [address] [place], [address] CA,Total 9.3 mg/dL Normal 8.5-10.1 [facility] Comment on above: Performed By: #### L 588.3316 #### [facility] [address] [place], [address] Chloride [Moles/Vol] 101 mmol/L Normal 98-107 [facility] Comment on above: Performed By: #### L 5018850 #### [facility] [address] [place], [address] CO2 [Moles/Vol] 29.0 mmol/L Normal 21.0-32.0 [facility] Comment on above: Performed By: #### L 501.8850 #### [facility] [address] [place], [address] Creatinine [Mass/Vol] 0.89 mg/dL Normal 0.55-1.02 [facility] Comment on above: Result Comment: The validity of the calculated GFR GFRAA in patients over 70 years has not been determined. Clinical correlation is essential. Performed By: #### L 5018850 #### [facility] [address] [place], [address] ECRCL 52.41 ml/min Normal [facility] Comment on above: Performed By: #### L 5018850 #### [facility] [address] [place], [address] EST GFR - AA 78 mL/min Normal >60 [facility] Comment on above: Result Comment: Afri can Armenian GFR Calc Performed By: #### L 5018850 #### [facility] [address] [place], [address] GAP 4 Low 5-15 [facility] Comment on above: Performed By: #### L 5018850 #### [facility] [address] [place], [address] GFR/1.73 sq M.predicted among non-blacks MDRD (S/P/Bld) [Vol rate/Area] 64 mL/min/{1.73_m2} Normal >60 [facility] Comment on above: Result Comment: Non- GFR Calc Performed By: #### L 501.8850 #### [facility] [address] [place], [address] Glucose [Mass/Vol] 90 mg/dL Normal 74-106 [facility] Comment on above: Performed By: #### L 501.8850 #### [facility] [address] [place], [address] Potassium [Moles/Vol] 4.2 mmol/L Normal 3.5-5.1 [facility] Comment on above: Performed By: #### L 501.8850 #### [facility] [address] [place], [address] Sodium [Moles/Vol] 133 mmol/L Low 136-145 [facility] Comment on above: Performed By: #### L 501.8850 #### [facility] [address] [place], [address] Urea nitrogen [Mass/Vol] 16 mg/dL Normal 7-18 [facility] Comment on above: Performed By: #### L 501.8850 #### [facility] [address] [place], [address] CBC W/Diff, Automatedon 12- Absolute Lymph 2.01 X10 3/uL Normal 0.83-4.51 [facility] Comment on above: Performed By: #### L 501.8850 #### [facility] [address] [place], [address] Absolute Neut 4.9 X10 3/uL Normal 2.0-7.7 [facility] Comment on above: Performed By: #### L 501.8850 #### [facility] [address] [place], [address] Basophils/100 WBC (Bld) 0.4 % Normal 0-1 [facility] Comment on above: Performed By: #### L 501.8850 #### [facility] [address] [place], [address] Eosinophils/100 WBC (Bld) 2.7 % Normal 0-5 [facility] Comment on above: Performed By: #### L 501.8850 #### [facility] [address] [place], [address] Erythrocyte distribution width (RBC) [Ratio] 13.7 % Normal 11.6-14.6 [facility] Comment on above: Performed By: #### L 501.8850 #### [facility] [address] [place], [address] Hematocrit (Bld) [Volume fraction] 33.6 % Low 37-47 [facility] Comment on above: Performed By: #### L 501.8850 #### [facility] [address] [place], [address] Hemoglobin (Bld) [Mass/Vol] 11.2 g/dL Low 12.0-15.0 [facility] Comment on above: Performed By: #### L 501.8850 #### [facility] [address] [place], [address] IG% 0.500 Normal 0.0-0.9 [facility] Comment on above: Result Comment: IG% - Immature Granulocytes (promyelocytes, myelocytes and metamyelocytes) > 1% indicates that a LEFT SHIFT is Present. Performed By: #### L 501.8850 #### [facility] [address] [place], [address] Lymphocytes/100 WBC (Bld) 25.6 % Normal 19-41 [facility] Comment on above: Performed By: #### L 501.8850 #### [facility] [address] [place], [address] MCH (RBC) [Entitic mass] 29.6 pg Normal 27.0-32.0 [facility] Comment on above: Performed By: #### L 501.8850 #### [facility] [address] [place], [address] MCHC (RBC) [Mass/Vol] 33.3 g/dL Normal 32-36 [facility] Comment on above: Performed By: #### L 501.8850 #### [facility] [address] [place], [address] MCV (RBC) [Entitic vol] 88.7 fL Normal 81-99 [facility] Comment on above: Performed By: #### L 501.8850 #### [facility] [address] [place], [address] Monocytes/100 WBC (Bld) 8.8 % Normal 0-10 [facility] Comment on above: Performed By: #### L 501.8850 #### [facility] [address] [place], [address] Neutrophils/100 WBC (Bld) 62.0 % Normal 47-70 [facility] Comment on above: Performed By: #### L 501.8850 #### [facility] [address] [place], [address] Nucleated RBC (Bld) [#/Vol] 0 10*3/uL Normal 0-5 [facility] Comment on above: Performed By: #### L 501.8850 #### [facility] [address] [place], [address] Platelet mean volume (Bld) [Entitic vol] 10.9 fL Normal 6.2-12.0 [facility] Comment on above: Performed By: #### L 501.8850 #### [facility] [address] [place], [address] Platelets (Bld) [#/Vol] 229 10*3/uL Normal 150-450 [facility] Comment on above: Performed By: #### L 501.8850 #### [facility] [address] [place], [address] RBC (Bld) [#/Vol] 3.79 10*6/uL Low 4.2-5.4 [facility] Comment on above: Performed By: #### L 501.8850 #### [facility] [address] [place], [address] RDW SD 44.7 fl High 35.1-43.9 [facility] Comment on above: Performed By: #### L 501.8850 #### [facility] [address] [place] [place], [address] WBC (Bld) [#/Vol] 7.9 10*3/uL Normal 4.4-11.0 [facility] Comment on above: Performed By: #### L 501.8850 #### [facility] [address] [place], [address] CRPon 09-18-2024 C-REACTIVE PROT 38.90 mg/L High 0.0-3.0 [facility] Comment on above: Result Comment: C-Re active Protein (CRP) provides useful information for the diagnosis, therapy and monitoring of inflammatory processes and associated diseases. For the evaluation of Relative Risk for Cardiovascular Disease, a High Sensitivity CRP (HSCRP) should be ordered. Performed By: #### L 501.8850 #### [facility] [address] [place], [place], [address] Emergency Department Summary on 09-18-2024 Emergency Department Summary [facility] Medical Records Department [address] [place] [address] Emergency Department Summary 09/18/24 MR#: [id number] Acct: [id number] Name: KIESHA COLVIN Rep #: [id number] : 1940 84 From: Erica DAVILA PCP: Dr. Lianet Sullivan MD Status:ADM IN Location: [place] [id number] Patient was seen and examined with physician assistant Doty All components of the history and physical confirmed and agreed. 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 Patient states that she has had this in the past and notes that she has a chronic wound to the plantar aspect of the right foot and follows with her homebound teacher Dr. Foreman. She states that on September 14 her foot became warm and red and she states that she contacted her homebound teacher who prescribed her doxycycline which started on the . She states that despite taking this antibiotic her redness is worsening and spreading up her leg. Review of systems: Agree with above Physical exam: Agree with above will add DP pulses +2/4 in the bilateral lower extremities. My exam shows MDM Patient is a 84-year-old female who presented to the emerged part with concern for right lower extremity cellulitis despite being on oral doxycycline since September 15. Patient will have a workup performed here on the differential diagnose includes but not limited to right lower extremity cellulitis, osteomyelitis. Once workup is obtained reviewed she will be reevaluated. Patient CBC reviewed showed no evidence leukocytosis white blood count 7.9, hemoglobin 11.2, plate count normal at 229. Patient sodium was 133, potassium was 4.2, creatinine normal at 0.89. Patient CRP elevated to 38.90 and ESR was noted to be elevated at 52. Patient's x-ray of her foot was reviewed by myself and by radiology which showed round radiolucency projecting over the soft tissue lateral to the fifth MTP joint likely reflects the reported wound cannot exclude subcutaneous air and a gas producing organism. Patient will be given clindamycin and vancomycin. Patient's case was discussed by physician assistant Doty with the homebound teacher who is recommending admission to the hospital. Patient's case was then discussed with hospitalist Dr. Reyes who will accept the patient for admission. Discussed this with the patient she is agreeable this plan all question concerns answered at bedside. Final impression: Right foot cellulitis Chronic right lower extremity wound Failed outpatient treatment Disposition: Patient will be admitted to the hospital for the valuation management Supervising attending attestation: Kerwin Ureña D.O. [facility] History of Present Illness Chief Complaint: Cellulitis Narrative Narrative: Patient presenting today with concerns for cellulitis to her right lower extremity. She has had this in the past. She has a chronic wound to the plantar aspect of her right foot and follows with homebound teacher, Dr. Flower. Her foot became erythematous on 09/14, she contacted her homebound teacher who prescribed her doxycycline which she started on the . Despite taking the antibiotic her erythema has worsened. She denies any history of diabetes, nausea, or vomiting. She reports having a fever 4 days ago but has not had one since. She has a PMH of HTN and HLD. [facility] Medical History (Updated 09/18/24 @ 18:04 by GIOVANNI Montejo) Osteoporosis Irregular heart beat Hypertension Contusion of spinal cord Fall Wears glasses Wears dentures Arthritis Low iron High cholesterol History of hiatal hernia GERD (gastroesophageal reflux disease) CPAP (continuous positive airway pressure) dependence Sleep apnea Former smoker Cardiology follow-up encounter History of stress test CHARLENE (obstructive sleep apnea) Rheumatoid arthritis Hiatal hernia Abnormal EKG Essential hypertension Vitamin D deficiency Diverticulosis Anxiety and depression Rash HLD (hyperlipidemia) Other hereditary and idiopathic neuropathies Chronic 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 Normal [facility] Erythrocyte Sed Rateon 09-18 SED RATE 52 mm/hr High 0-30 [facility] Comment on above: Performed By: #### L [phone] #### [facility] [address] [place], [place], [address] Foot min 3 Viewson 4 Foot min 3 Views [facility] Imaging Services [address] [place] [address] Foot min 3 Views MR#: [id number] Acct: [id number] Name: KIESHA COLVIN Rep #: [id number] : 1940 F 84 From: Fabiola Escalera MD PCP: Dr. Lianet Sullivan MD Status: REG ER Study: Foot min 3 Views Date of Exam: 09/18/24 Exam# [id number] Ordering Dr: Erica Duncan :[id number] INDICATION: wound EXAMINATION/TECHNIQUE: X-RAY - RIGHT XR Foot Min 3 Views 3 VIEWS COMPARISON: June 09, 2022 FINDINGS: SOFT TISSUES: There is diffuse soft tissue swelling. No radiopaque foreign body. BONES/JOINTS: The bones are diffusely demineralized. No acute fracture or subluxation.. There are degenerative changes throughout the foot. There is a radiolucency projecting over the soft tissue along the lateral aspect of the fifth metatarsophalangeal joint consistent with known wound. RAD/Foot min 3 Views IMPRESSION: Diffusely demineralized bones. Degenerative changes. Diffuse soft tissue swelling. Round radiolucency projecting over the soft tissues lateral to the fifth MTP joint, likely reflects reported wound, cannot exclude subcutaneous air and a gas producing organism. Electronically Signed: Fabiola Escalera MD at 15:49 EST , CC: Dr. Lianet Sullivan MD; GIOVANNI Montejo Regulatory Intern: Signed Normal [facility] H AND P Exam - [place] 09-18-2024 H&P Exam - Hospitalist [facility] Medical Records Department [address] [place] [address] H P Exam - Hospitalist 09/18/24 1637 MR#: [id number] Acct: [id number] Name: KIESHA COLVIN Rep #: [id number] : 1940 84 From: Cisco Reyes MD PCP: Dr. Lianet Sullivan MD Status:ADM IN Location: MS3 [id number] HPI - General General Date of Admission: 09/18/24 Date of Service: 09/18/24 Chief Complaint: Cellulitis HPI Narrative KIESHA COLVIN, is a 84 F with past medical history of HTN, GERD, hiatal hernia, hyperlipidemia, CHARLENE (on CPAP), peripheral neuropathy, RA (not on medication), vitamin D deficiency, osteoarthritis and anxiety/depression who presents to the ED with concerns regarding right-sided lower limb swelling, pain, redness. The patient has a history of severe cervical stenosis and deformity at C5-C6, moderate to severe canal stenosis at C6-C7, and notes that she has decreased sensation over both her legs for the last few months. Over the last 3 days she has been noticing progressive swelling, pain over her right leg. She had developed wound at the base of her lefttoe in right foot that has not healed over the last few weeks. For this she followed up with podiatry outpatient and was started on oral doxycycline back 3 days back but there has been no response. Due to this she is presenting to the ED today. Previously she had a prolonged stay in January 2024 following a fall at home and was found found to have severe cervical stenosis, surgical laminectomy was attempted but could not be performed. Following her discharge she was at an acute rehab facility before being discharged home. Does not have diabetes, does not smoke, no alcohol use, no other drug use. All her allergies were reviewed At the time of presentation in the ED, BP 140/57, pulse 88, O2 sat 100% on room air, WBC 7.9, hemoglobin 11.2, platelet 229, ESR 52, sodium 133, BUN 16, creatinine 0.8, glucose 90. X-ray foot showed diffuse soft tissue swelling, with underlying bone diffusely demineralized with degenerative changes. 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 Localized edema Venous insufficiency (chronic) (peripheral) Other specified peripheral vascular diseases 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 exposed CHARLENE (obstructive sleep apnea) Abnormal chest CT Lipodermatosclerosis Cellulitis of right leg Home Medications ???Medication ???Instructions ???Recorded ???Last Taken ???Type atorvastatin 20 mg tablet 20 mg PO QHS Cholesterol 12/15/15 09/17/24 History paroxetine HCl 20 mg tablet 20 mg PO DAILY Depression 12/15/15 09/17/24 History aspirin 81 mg tablet,delayed 81 mg PO DAILY Heart 07/19/22 09/18/24 History release (Adult Low Dose Aspirin) cholecalciferol (vitamin D3) 25 50 mcg PO DAILY Supplement 07/19/22 09/17/24 History mcg (1,000 unit) tablet acetaminophen 325 mg tablet 1,000 mg PO TID PRN PRN Pain Score 01/11/24 09/18/24 History (Tylenol) 1-10/Temp > 100.7 F lisinopril 2.5 mg tablet 2.5 mg PO 1700 #30 tabs 02/26/24 09/17/24 Rx omeprazole 20 mg capsule,delayed 20 mg PO DAILY Stomach acid #30 02/26/24 09/18/24 Rx release caps alendronate 70 mg tablet 70 mg PO QWEEK 09/18/24 09/15/24 History amlodipine 5 mg tablet 5 mg PO DAILY 09/18/24 09/18/24 History doxycycline hyclate 100 mg capsule 100 mg PO Q12H 09/18/24 09/18/24 History flaxseed oil 1,000 mg capsule 1,000 mg PO DAILY 09/18/24 09/18/24 History vitamin B complex (Vitamins B 1 cap PO DAILY 09/18/24 09/18/24 History Complex capsule) Allergy/AdvReac Type Severity Reaction Status Date / Time cephalexin (From Keflex) Allergy Unknown rash, Verified 09/18/24 15:01 headaches bee venom protein (honey bee) Allergy Anaphylaxis Verified 09/18/24 15:01 Penicillins Allergy Hives Verified 09/18/24 15:52 pantoprazole (From Protonix) AdvReac Intermediate Thrombocyto Verified 09/18/24 15:01 penia Family History Father Heart disease Mother Colon cancer Sister Colon cancer Brother CVA (cerebral vascular accident) COPD (chronic obstructive pulmonary disease) Surgical History ... Normal [facility] Lumbar Spine 2 or 3 Viewson 09-13-2024 Lumbar Spine 2 or 3 Views [facility] Imaging Services [address] [place], [place] [address] Lumbar Spine 2 or 3 Views MR#: [id number] Acct: [id number] Name: KIESHA COLVIN Rep #: [id number] : 1940 F 84 From: Dana gandhi MD PCP: Dr. Lianet Sullivan MD Status: REG CLI Study: Lumbar Spine 2 or 3 Views Date of Exam: Exam# [id number] Ordering Dr: Devyn Whitney MD :[id number] HISTORY: Spondylosis without myelopathy or radiculopathy, lumbosacral trinidad. TECHNIQUE: XR Spine Lumbar 2 or 3 Views. COMPARISON: None. FINDINGS: VERTEBRAE: Vertebral body heights preserved. Degenerative changes of the posterior elements. ALIGNMENT: 2 mm retrolisthesis at T12-L1. Mild levoscoliosis. INTERVERTEBRAL DISCS: Moderate-severe intervertebral disc space narrowing with endplate change, and vacuum disc phenomenon, osteophytes, and facet arthropathy throughout the lumbar spine. RAD/Lumbar Spine 2 or 3 Views IMPRESSION: No acute fracture or dislocation identified in the lumbar spine. Advanced multilevel degenerative change. Electronically Signed: Dana May MD at 10:20 EST , CC: Dr. Devyn Whitney MD; Dr. Lianet Sullivan MD Regulatory Intern: Signed Normal [facility] CBC panel Auto (Bld)on 08-26 Erythrocyte distribution width (RBC) [Ratio] 13.5 % Normal 11.5-15.0 [facility] Comment on above: Order Comment: Speci men Type: BLOOD SPECIMENOrdering Facility: [facility] Address: [address] [place] [address] Performed By: #### 5 8410-2 ####[facility] [id number] [place] [address] [place] Hematocrit (Bld) [Volume fraction] 39.4 % Normal 36.0-46.0 [facility] Comment on above: Order Comment: Speci men Type: BLOOD SPECIMENOrdering Facility: [facility] Address: [address] [place] [address] Performed By: #### 5 8410-2 ####[facility] [id number] [place] [address] [place] Hemoglobin (Bld) [Mass/Vol] 13.2 g/dL Normal 11.5-15.5 [facility] Comment on above: Order Comment: Speci men Type: BLOOD SPECIMENOrdering Facility: [facility] Address: [address] [place] [address] Performed By: #### 5 8410-2 ####[facility] [id number] [place] [address] [place] MCH (RBC) [Entitic mass] 30.0 pg Normal 26.0-34.0 [facility] Comment on above: Order Comment: Speci men Type: BLOOD SPECIMENOrdering Facility: [facility] Address: [address] [place] [address] Performed By: #### 5 8410-2 ####[facility] [id number] [place] [address] [place] MCHC (RBC) [Mass/Vol] 33.5 g/dL Normal 30.5-36.0 [facility] Comment on above: Order Comment: Speci men Type: BLOOD SPECIMENOrdering Facility: [facility] Address: [address] [place] [address] Performed By: #### 5 8410-2 ####[facility] [id number] [place] [address] [place] MCV (RBC) [Entitic vol] 89.5 fL Normal 80.0-100.0 [facility] Comment on above: Order Comment: Speci men Type: BLOOD SPECIMENOrdering Facility: [facility] Address: [address] [place] [address] Performed By: #### 5 8410-2 ####[facility] [id number] [place] [address] [place] Nucleated RBC (Bld) [#/Vol] 10*3/uL Normal <0.01 [facility] Comment on above: Order Comment: Speci men Type: BLOOD SPECIMENOrdering Facility: [facility] Address: [address] [place] [address] Performed By: #### 5 8410-2 ####[facility] [id number] [place] [address] [place] Platelet mean volume (Bld) [Entitic vol] 10.6 fL Normal 9.0-12.7 [facility] Comment on above: Order Comment: Speci men Type: BLOOD SPECIMENOrdering Facility: [facility] Address: [address] [place] [address] Performed By: #### 5 8410-2 ####[facility] [id number] [place] [address] [place] Platelets (Bld) [#/Vol] 249 10*3/uL Normal 150-400 [facility] Comment on above: Order Comment: Speci men Type: BLOOD SPECIMENOrdering Facility: [facility] Address: [address] [place] [address] Performed By: #### 5 8410-2 ####[facility] [id number] [place] [id number] [place] RBC (Bld) [#/Vol] 4.40 10*6/uL Normal 3.90-5.20 [facility] Comment on above: Order Comment: Speci men Type: BLOOD SPECIMENOrdering Facility: [facility] Address: [address] [place] [address] Performed By: #### 5 8410-2 ####[facility] [id number] [place] [address] [place] WBC (Bld) [#/Vol] 9.72 10*3/uL Normal 3.70-11.00 [facility] Comment on above: Order Comment: Speci men Type: BLOOD SPECIMENOrdering Facility: [facility] Address: [address] [place] [address] Performed By: #### 5 8410-2 ####[facility] [id number] [place] [address] [place] Comprehensive metabolic 2000 panelon 08-26-2024 Albumin [Mass/Vol] 4.4 g/dL Normal 3.9-4.9 [facility] Comment on above: Order Comment: Speci men Type: BLOOD SPECIMENOrdering Facility: [facility] Address: [address] [place] [address] Performed By: #### 1 9123-9, 77679-8, 21614-6 ####[facility] [id number] [place] [address] [place] ALP [Catalytic activity/Vol] 60 U/L Normal 34-123 [facility] Comment on above: Order Comment: Speci men Type: BLOOD SPECIMENOrdering Facility: [facility] Address: [address] [place] [address] Performed By: #### 1 9123-9, 57795-3, 55324-8 ####[facility] [id number] [address] [address] [place] ALT [Catalytic activity/Vol] 15 U/L Normal 7-38 [facility] Comment on above: Order Comment: Speci men Type: BLOOD SPECIMENOrdering Facility: [facility] Address: [address] [place] [address] Performed By: #### 1 9123-9, 42901-1, 46252-8 ####[facility] [id number] [place] [address] [place] Anion gap [Moles/Vol] 14 mmol/L Normal 8-15 [facility] Comment on above: Order Comment: Speci men Type: BLOOD SPECIMENOrdering Facility: [facility] Address: [address] [place] [address] Performed By: #### 1 9123-9, 32226-3, 06409-1 ####[facility] [id number] [place] [address] [place] AST [Catalytic activity/Vol] 17 U/L Normal 13-35 [facility] Comment on above: Order Comment: Speci men Type: BLOOD SPECIMENOrdering Facility: [facility] Address: [address] [place] [address] Performed By: #### 1 9123-9, 18529-7, 76255-4 ####[facility] [id number] [place] [address] [place] Bilirubin [Mass/Vol] 0.6 mg/dL Normal 0.2-1.3 [facility] Comment on above: Order Comment: Speci men Type: BLOOD SPECIMENOrdering Facility: [facility] Address: [address] [place] [address] Performed By: #### 1 9123-9, 28041-9, 55330-3 ####[facility] [id number] [place] [address] [place] Calcium [Mass/Vol] 9.5 mg/dL Normal 8.5-10.2 [facility] Comment on above: Order Comment: Speci men Type: BLOOD SPECIMENOrdering Facility: [facility] Address: [address] [place] [address] Performed By: #### 1 9123-9, 75095-6, 34129-0 ####[facility] [id number] [place] [address] [place] Chloride [Moles/Vol] 99 mmol/L Normal 98-107 [facility] Comment on above: Order Comment: Speci men Type: BLOOD SPECIMENOrdering Facility: [facility] Address: [address] [place] [address] Performed By: #### 1 9123-9, 73599-3, 20003-5 ####[facility] [id number] [place] [address] [place] CO2 [Moles/Vol] 23 mmol/L Normal 22-30 [facility] Comment on above: Order Comment: Speci men Type: BLOOD SPECIMENOrdering Facility: [facility] Address: [address] [place] [address] Performed By: #### 1 9123-9, 41203-6, 77669-0 ####[facility] [id number] [place] [address] [place] Creatinine [Mass/Vol] 0.90 mg/dL Normal 0.58-0.96 [facility] Comment on above: Order Comment: Speci men Type: BLOOD SPECIMENOrdering Facility: [facility] Address: [address] [place] [address] Performed By: #### 1 9123-9, 00085-5, 79936-7 ####[facility] [id number] [place] [address] [place] Creatinine and Glomerular filtration rate.predicted panel (S/P/Bld) 63 mL/min/1.73m??? Normal >=60 [facility] Comment on above: Order Comment: Jen gee Type: BLOOD SPECIMENOrdering Facility: [facility] Address: [address] [place] [address] Result Comment: Maritza mated Glomerular Filtration Rate (eGFR) is calculated using the 2020 CKD-EPI creatinine equation. This equation utilizes serum creatinine, sex, and age as parameters. The creatinine assay has traceable calibration to isotope dilution-mass spectrometry. Refer to KDIGO guidelines for clinical interpretation. In patients with unstable renal function, e.g. those with acute kidney injury, the eGFR may not accurately reflect actual GFR. Performed By: #### 1 9123-9, 90457-2, 65942-7 ####[facility] [id number] [place] [address] [place] Glucose [Mass/Vol] 87 mg/dL Normal 74-99 [facility] Comment on above: Order Comment: Jen gee Type: BLOOD SPECIMENOrdering Facility: [facility] Address: [address] [place] [address] Result Comment: The [place] Diabetes Association (ADA) provides guidance for cutoff values for fasting glucose and random glucose. The ADA defines fasting as no caloric intake for at least 8 hours. Fasting plasma glucose results between 100 to 125 mg/dL indicate increased risk for diabetes (prediabetes). Fasting plasma glucose results greater than or equal to 126 mg/dL meet the criteria for diagnosis of diabetes. In the absence of unequivocal hyperglycemia, results should be confirmed by repeat testing. In a patient with classic symptoms of hyperglycemia or hyperglycemic crisis, random plasma glucose results greater than or equal to 200 mg/dL meet the criteria for diagnosis of diabetes. Reference: Standards of Medical Care in Diabetes 2016, [place] [employer] Association. Diabetes Care. 2016.39(Suppl 1). Performed By: #### 1 9123-9, 84388-9, 18277-5 ####[facility] [id number] [place] [id number] [place] Potassium [Moles/Vol] 4.8 mmol/L Normal 3.7-5.1 [facility] Comment on above: Order Comment: Speci men Type: BLOOD SPECIMENOrdering Facility: [facility] Address: [address] [place] [address] Performed By: #### 1 9123-9, 80657-8, 99409-2 ####[facility] [id number] [place] [address] [place] Protein [Mass/Vol] 7.5 g/dL Normal 6.3-8.0 [facility] Comment on above: Order Comment: Speci men Type: BLOOD SPECIMENOrdering Facility: [facility] Address: [address] [place] [address] Performed By: #### 1 9123-9, 57137-8, 84193-1 ####[facility] [id number] [place] [address] [place] Sodium [Moles/Vol] 136 mmol/L Normal 136-144 [facility] Comment on above: Order Comment: Speci men Type: BLOOD SPECIMENOrdering Facility: [facility] Address: [address] [place] [address] Performed By: #### 1 9123-9, 14469-8, 89409-3 ####[facility] [id number] [place] [address] [place] Urea nitrogen [Mass/Vol] 21 mg/dL Normal 7-21 [facility] Comment on above: Order Comment: Speci men Type: BLOOD SPECIMENOrdering Facility: [facility] Address: [address] [place] [address] Performed By: #### 1 9123-9, 86613-3, 73630-6 ####[facility] [id number] [place] [id number] [place] HbA1c (Bld)on 08-26-2024 Average glucose Estimated from glycated hemoglobin (Bld) [Mass/Vol] 111 mg/dL Normal [facility] Comment on above: Order Comment: Maximilianoi men Type: BLOOD SPECIMENOrdering Facility: [facility] Address: [address] [place] [address] Result Comment: eAG: (Estimated average glucose) is a calculated value from HgbA1c and is practice representative of the average blood glucose level in the last 2-3 month period. Performed By: #### 5 5454-3 ####[facility] [id number] [place] [address] [place] HbA1c (Bld) [Mass fraction] 5.5 % Normal 4.3-5.6 [facility] Comment on above: Order Comment: Jen men Type: BLOOD SPECIMENOrdering Facility: [facility] Address: [address] [place] [address] Result Comment: [place] Diabetes Association guidelines indicate that patients with HgbA1c in the range 5.7-6.4% are at increased risk for development of diabetes, and intervention by lifestyle modification may be beneficial. HgbA1c greater or equal to 6.5% is considered diagnostic of diabetes. Performed By: #### 5 5454-3 ####[facility] [id number] [place] [address] [place] Lipid 1996 panelon 4 Cholesterol [Mass/Vol] 186 mg/dL Normal <200 [facility] Comment on above: Order Comment: Jen men Type: BLOOD SPECIMENOrdering Facility: [facility] Address: [address] [place] [address] Result Comment: <200 mg/dL, Desirable 200-239 mg/dL, Borderline high >239 mg/dL, High Performed By: #### 1 9123-9, 25377-3, 50650-3 ####[facility] [id number] [place] [address] [place] Cholesterol in HDL [Mass/Vol] 65 mg/dL Normal >39 [facility] Comment on above: Order Comment: Maximilianoi men Type: BLOOD SPECIMENOrdering Facility: [facility] Address: [address] [place] [address] Result Comment: 40-5 9 mg/dL, Acceptable >59 mg/dL, High: Negative risk factor for coronary heart disease <40 mg/dL, Low: Positive risk factor for coronary heart disease Performed By: #### 1 9123-9, 50012-1, 39183-1 ####[facility] [id number] [place] [address] [place] Cholesterol in LDL [Mass/Vol] 100 mg/dL High <100 [facility] Comment on above: Order Comment: Speci men Type: BLOOD SPECIMENOrdering Facility: [facility] Address: [address] [place] [address] Result Comment: <100 mg/dL, Optimal 100-129 mg/dL, Near optimal/above optimal 130-159 mg/dL, Borderline high 160-189 mg/dL, High >189 mg/dL, Very high Secondary prevention optimal LDL Cholesterol levels are recommended to be < 70 mg/dL Performed By: #### 1 9123-9, 08644-1, 69448-7 ####[facility] [id number] [place] [address] [place] Cholesterol in LDL/Cholesterol in HDL [Mass ratio] 1.54 {ratio} Normal <2.54 [facility] Comment on above: Order Comment: Speci men Type: BLOOD SPECIMENOrdering Facility: [facility] Address: [address] [place] [address] Result Comment: Pia carson: 1. National Cholesterol Education Program ATP III Guideline At-A-Glance Quick Desk Reference: National Heart, Lung, and Blood [place]. National Institutes of Health. 2001: NIH Publication No. 01-3305. 2. An International Atherosclerosis Society position paper: global recommendations for the management of dyslipidemia: executive summary, Atherosclerosis. 2014: 232(2):410-413. Performed By: #### 1 9123-9, 11757-7, 33152-4 ####[facility] [id number] [place] [address] [place] Cholesterol in VLDL [Mass/Vol] 21 mg/dL Normal <30 [facility] Comment on above: Order Comment: Speci men Type: BLOOD SPECIMENOrdering Facility: [facility] Address: [address] [place] [address] Performed By: #### 1 9123-9, 10296-8, 03483-2 ####[facility] [id number] [place] [address] [place] Cholesterol non HDL [Mass/Vol] 121 mg/dL Normal <130 [facility] Comment on above: Order Comment: Speci men Type: BLOOD SPECIMENOrdering Facility: [facility] Address: [address] [place] [address] Result Comment: <130 mg/dL, Optimal 130-159 mg/dL, Near optimal/above optimal 160-189 mg/dL, Borderline high 190-219 mg/dL, High >219 mg/dL, Very high Secondary prevention optimal non HDL Cholesterol levels are recommended to be <100 mg/dL Performed By: #### 1 23-9, 63980-4, 59201-9 ####[facility]CL[facility] [id number] [place] [address] [place] Cholesterol.total/Ch olesterol in HDL [Mass ratio] 2.86 {ratio} Normal <5.10 [facility] Comment on above: Order Comment: Speci men Type: BLOOD SPECIMENOrdering Facility: [facility] Address: [address] [place] [address] Performed By: #### 1 9123-9, 25019-8, 33064-2 ####[facility]CLIA [id number] [place] [address] [place] FASTING TIME 12 hrs Normal [facility] Comment on above: Order Comment: Speci men Type: BLOOD SPECIMENOrdering Facility: [facility] Address: [address] [place] [address] Performed By: #### 1 9123-9, 18289-7, 47509-3 ####[facility]CLIA [id number] [place] [address] [place] Triglyceride [Mass/Vol] 104 mg/dL Normal <150 [facility] Comment on above: Order Comment: Speci men Type: BLOOD SPECIMENOrdering Facility: [facility] Address: [address] [place] [address] Result Comment: <150 mg/dL, Normal 150-199 mg/dL, Borderline high 200-499 mg/dL, High >499 mg/dL, Very high Performed By: #### 1 9123-9, 82616-1, 48555-5 ####[facility]CLIA [id number] [place] [address] [place] Magnesium [facility] 08-26 Magnesium [Mass/Vol] 2.0 mg/dL Normal 1.7-2.3 [facility] Comment on above: Order Comment: Speci men Type: BLOOD SPECIMENOrdering Facility: [facility] Address: [address] [place] [address] Performed By: #### 1 9123-9, 08281-2, 08145-3 ####[facility] LABCLIA [id number] [place] [address] [place] Spine Cervical (Routine)on 10-06-2023 Spine Cervical (Routine) [facility] [address], [place] [id number] Spine Cervical (Routine) MR#: [id number] Acct: [id number] Name: KIESHA COLVIN Rep #: [id number] : 1940 F 84 From: Rivera Tang MD PCP: Dr. Lianet Sullivan MD Status: REG CL Study: Spine Cervical (Routine) Date of Exam: Exam# [id number] Ordering Dr: Daisy Barber MD :[id number] EXAM: MR CERVICAL SPINE WITHOUT INTRAVENOUS CONTRAST CLINICAL INDICATION: STENOSIS TECHNIQUE: Multiplanar and multisequence MR images of the cervical spine without intravenous contrast were performed. COMPARISON: No relevant prior studies available. FINDINGS: VERTEBRAE: Normal alignment of the cervical vertebra to vertebral bodies. Normal vertebral body height. No bone marrow edema. SPINAL CORD: Unremarkable in signal and morphology. SOFT TISSUES: Normal. No prevertebral soft tissue swelling. LYMPH NODES: Normal. There is no cervical adenopathy. DISCS/SPINAL CANAL/NEURAL FORAMINA: C2-C3: Mild disc space narrowing. Mild central disc protrusion and posterior ligamentous redundancy without significant spinal stenosis. No significant neural foraminal narrowing. C3-C4: Mild to moderate disc space narrowing. Mild disc bulging and posterior ligamentous redundancy without significant spinal stenosis. Mild narrowing of the neural foramina noted bilaterally. C4-C5: Moderate disc space narrowing. Mild broad-based disc protrusion and ligamentous redundancy results in mild spinal stenosis. Moderate narrowing of the neural foramina related to bony hypertrophy. C5-C6: Prominent disc space narrowing. Large right Central disc herniation and posterior ligamentous redundancy results in moderate to severe spinal stenosis. Moderate to severe bilateral neural foraminal narrowing related to uncinate joint hypertrophy. C6-C7: Moderate disc space narrowing. Central disc protrusion causes mild narrowing of the spinal canal. Moderate narrowing of the neural foramina related to uncinate joint hypertrophy. C7-T1: Moderate disc space narrowing. Left central disc protrusion causes mild spinal stenosis. Mild narrowing of the neural foramina bilaterally related to facet arthropathy on the right and mild disc bulging on the left. UPPER THORACIC SPINE: T1-2: Large extruded disc on the right causing mild spinal stenosis and prominent right lateral recess stenosis. Moderate narrowing of the neural foramina noted bilaterally related to disc osteophyte complex. MRI/Spine Cervical (Routine) IMPRESSION: 1. Prominent multilevel disc degeneration with disc bulging and protrusion resulting in significant spinal stenosis at C5-6. 2. Prominent right lateral recess stenosis at T1 to secondary to extruded disc. 3. No evidence of cord edema. Electronically Signed: Rivera Tang MD at 16:59 EST , CC: Dr. Daisy Barber MD; Dr. Lianet Sullivan MD Regulatory Intern: Signed Normal [facility] Spine Cervical without Contr ason 07-30-2024 Spine Cervical without Contras [facility] [address] [place] [address] Spine Cervical without Contras MR#: [id number] Acct: [id number] Name: KIESHA COLVIN Rep #: [id number] : 1940 F 84 From: Wilbert quintana MD PCP: Dr. Lianet Sullivan MD Status: REG CLI Study: Spine Cervical without Contras Date of Exam: Exam# [id number] Ordering Dr: Daisy Barber MD :[id number] STUDY: CT CERVICAL SPINE WITHOUT CONTRAST REASON FOR EXAM: Female, 84 years old. CERVIAL STENOSIS OF SPINE RADIATION DOSAGE (If Supplied By Facility): CTDIvol = ( 24.23 ) mGy, DLP = ( 437.15 ) mGycm TECHNIQUE: High resolution transaxial imaging was performed without contrast material. Sagittal and coronal images were reconstructed. Individualized dose optimization techniques were used for this CT. COMPARISON: None FINDINGS: Normal craniovertebral junction. There are degenerative changes of the anterior atlantoaxial articulation. Normal odontoid process. There is straightening of the normal cervical lordosis. No demonstrated fracture or compression deformity. No lytic or blastic lesion is present. C2-3: Moderate disc space narrowing with a minor posterior disc spur complex. Mild to moderate bilateral facet joint hypertrophy. Mild left uncovertebral hypertrophy contributing to mild left foraminal stenosis. Normal right neural foramen. Normal central canal. C3-4: Severe disc space narrowing with no significant posterior disc herniation or bulging. Severe left foraminal stenosis with nerve root compression due to severe facet joint and uncovertebral hypertrophy. Mild right foraminal stenosis secondary to uncovertebral hypertrophy. Normal central canal. C4-5: Anterolisthesis of C4-C5 of 2 mm. Moderate to severe disc space narrowing with a diffuse disc osteophyte complex. Severe left foraminal stenosis with nerve root compression due to severe uncovertebral and severe facet joint hypertrophy. Normal right neural foramen. Mild central canal stenosis. C5-6: Severe disc space narrowing with a diffuse disc osteophyte complex and superimposed midline to right paracentral disc protrusion causing moderate central canal stenosis and compression and flattening of the anterior aspect of the cord. Severe right foraminal stenosis with nerve root compression due to severe uncovertebral hypertrophy. Moderate left foraminal stenosis due to uncovertebral and facet joint hypertrophy C6-7: Moderate disc space narrowing with a diffuse disc spur complex. Mild central canal stenosis. Mild bilateral foraminal stenosis. Significant right facet joint hypertrophy and degeneration. . C7-T1: Moderate to severe disc space narrowing with a diffuse disc spur complex. Mild central canal stenosis.. Normal central canal and intervertebral neuroforamina. Normal visualized soft tissue structures. CT/Spine Cervical without Contras IMPRESSION: 1. Moderate to severe multilevel degenerative changes, as described above. Electronically Signed: Wilbert Pagan MD at 10:35 EDT Reading Location ID and State: [address] [place] [address] , Service support , CC: Dr. Daisy Barber MD; Dr. Lianet Sullivan MD Regulatory Intern: Signed Normal [facility] CNOVon 07-12-2024 CNOV Office Visit (INTMWS ) KIESHA COLVIN ([id number]) 1940 F Date Time Provider Department 07/12/24 11:00 AM LIANET SULLIVAN During your visit today, we recorded the following information about you: Temperature Pulse Respiration Blood pressure 96.4 degrees 60/minute 16/minute 118/60 Weight 88.9 kg Lianet Sullivan MD 08/18/2024 4:05 PM Signed This note was created using [email or web address]. Subjective Kiesha Colvin is a 84 year old female. Patient presents with: F/U 6 months SUBJECTIVE: Kiesha Colvin is a 84 year old year old lady here today for 6 month follow up appointment for review of medical conditions. The patient is a 84-year-old female, with a history of HTN, GERD, hypercholesterolemia, and osteoporosis, presenting for follow-up. The patient reports persistent right leg pain, which she attributes to a previous fall. She has not consulted an orthopedist for this issue. She is currently under the care of Dr. Flower for a right foot ulcer and is also seeing a neurosurgeon for foot drop. She wears a brace to manage her foot drop, which she describes as her foot turning outward rather than downward. She experiences muscle spasms in her leg, which she believes are contributing to her pain. She is not currently taking any medication for the spasms. The patient also reports issues with her hips and back, describing a sensation of her hips being out of place and experiencing back tightness that recently made it difficult for her to walk upon getting out of bed. She uses a heating pad to warm her hands, which she reports are cold and weak. She is currently undergoing therapy for her hand weakness. The patient is on multiple medications, including two antihypertensives taken in the morning, lisinopril in the evening, omeprazole, Paxil, Lipitor, and Alendronate. She also takes vnuq-kqv-oprkmrx iron, Flonase, a multivitamin, aspirin, calcium with vitamin D, and plain vitamin D. She reports a history of constipation. She denies any current need for a new EpiPen. PAST MEDICAL HISTORY Diagnosis Date ANEMIA NOS 04/21/2009 Colonoscopy in 10-11: tics and hems with no polpys Started iron as an inpt per Dr. Sales: pt reportedly giving multiple blood donations Hct 33% in 04-13, 06-14 Iron 72, Ferritin 162 (8-252), TIBC 344 in 06-14: stop iron supplements and repeat levels in follow up Anxiety state, unspecified Arthritis Bee sting allergy goes into shock, honey bees only CELLULITIS NOS 04/18/2009 WBC 9 K, ESR 118 in 04-13 for cellulitis of R foot Empiric Levaquin for R foot in 04-13: rec to return to Podiatry Admitted 04-19-09 for cellulitis: discharged on Doxy and rec to ID (MRI of the R foot negative for osteo) Depressive disorder, not elsewhere classified Diverticulosis of colon (without mention of hemorrhage) Diverticulosis of colon (without mention of hemorrhage) Family history of malignant neoplasm of gastrointestinal tract family history of colon cancer Family history of malignant neoplasm of gastrointestinal tract Hypertension 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 To continue the vit D 50,000 one po weekly Current Outpatient Medications Medication Sig lisinopril 2.5 mg tablet Take 1 tablet by mouth once daily. alendronate (FOSAMAX) 70 mg tablet Take 1 tablet by mouth one time a week. Take with a full glass of water, on an empty stomach; do NOT lie down for 30minutes. atorvastatin (LIPITOR) 20 mg tablet Take one (1) tablet by mouth every evening at 9pm omeprazole (PRILOSEC) 20 mg capsule Take 1 capsule by mouth daily before breakfast. 1/2 hr before meal. PARoxetine (PAXIL) 20 mg tablet Take 1 tablet by mouth once daily. amLODIPine (NORVASC) 2.5 mg tablet Take 1 tablet by mouth two times a day. As directed naproxen (NAPROSYN) 250 mg tablet Take 250 mg by mouth two times a day with meals. EPINEPHrine (EPIPEN 2-MAKI) 0.3 mg/0.3 mL auto-injector Inject 0.3 mL intramuscularly as needed. Cholecalciferol, Vitamin D3, 25 mcg (1,000 unit) cap Take 1 capsule by mouth once daily. ferrous sulfate 325 mg (65 mg iron) tablet Take 325 mg by mouth daily with breakfast. fluticasone (FLONASE) 50 mcg/actuation nasal spray Use 2 Sprays in each nostril once daily. As needed. Rinse mouth after use. ASPIRIN 81 MG TAB Take one (1) tablet daily . MULTIVITAMIN TAB Take (more content not included)... Normal [facility] Bacteria Wnd Culton 06-17-20 24 Bacteria identified Cx Nom (Wound) ORGANISM ID: 1 Few Pseudomonas aeruginosa ORGANISM ID: 2 Few Staphylococcus intermedius group ORGANISM ID: 3 Few skin bello GRAM STAIN: Rare Gram positive cocci No Polymorphonuclear Leukocytes ORGANISM ID: 1 (PSEUDOMONAS AERUGINOSA) ------ ANTIBIOTIC INTERPRETATION JOE STATUS REFERENCE RANGE ------ Cefepime S 2 F Susceptible <=8 , Intermediate >8 , Resistant >16 Meropenem S <=0.5 F Susceptible <=2 , Intermediate >2 , Resistant >4 Piperacillin/Tazobac S 4 F Gentamicin R F Tobramycin NI <=2 F This isolate is intermediate or susceptible to tobramycin. If discrimination between intermediate and susceptible is needed, please call the lab to request additional testing. Ciprofloxacin R 2 F Susceptible <=0.5 , Intermediate >.5 , Resistant >1 ORGANISM ID: 2 (STAPHYLOCOCCUS INTERMEDIUS GROUP) ------ ANTIBIOTIC INTERPRETATION JOE STATUS REFERENCE RANGE ------ Oxacillin S <=0.25 F Susceptible <=0.25 , Resistant >.25 Oxacillin-susceptible staphylococci are susceptible to other penicilllinase-stable penicillins, beta-lactam/beta-lactamase inhibitor combinations, anti-staphylococcal cephems, and carbapenems. Erythromycin S <=0.25 F Susceptible <=0.5 , Intermediate >.5 , Resistant >4 Clindamycin S 0.25 F Susceptible <=0.5 , Intermediate >.5 , Resistant >2 Trimeth sulfameth S <=10 F Susceptible <=40 , Resistant >40 Vancomycin S 1 F Susceptible <=4 , Intermediate >4 , Resistant >16 Rifampin S <=0.5 F Susceptible <=1 , Intermediate >1 , Resistant >2 Rifampin should not be used alone for antimicrobial therapy. Tetracycline R >=16 F Susceptible <=4 , Intermediate >4 , Resistant >8 Doxycycline S 2 F Susceptible <=4 , Intermediate >4 , Resistant >8 Abnormal [facility] Comment on above: Performed By: #### 6 462-6 ####[facility] [id number] [place] [address] [place] Bacteria Wnd Culton 04-28-20 24 Bacteria identified Cx Nom (Wound) ORGANISM ID: 1 Many Staphylococcus aureus GRAM STAIN: Few Gram positive cocci No Polymorphonuclear Leukocytes ORGANISM ID: 1 (STAPHYLOCOCCUS AUREUS) ------ ANTIBIOTIC INTERPRETATION JOE STATUS REFERENCE RANGE ------ Oxacillin S 0.5 F Susceptible <=2 , Resistant >2 Oxacillin-susceptible staphylococci are susceptible to other penicilllinase-stable penicillins, beta-lactam/beta-lactamase inhibitor combinations, anti-staphylococcal cephems, and carbapenems. Erythromycin R >=8 F Susceptible <=0.5 , Intermediate >.5 , Resistant >4 Clindamycin S 0.25 F Susceptible <=0.5 , Intermediate >.5 , Resistant >2 Testing for inducible clindamycin resistance was performed. Trimeth sulfameth S <=10 F Susceptible <=40 , Resistant >40 Vancomycin S 1 F Susceptible <=2 , Intermediate >2 , Resistant >8 Rifampin S <=0.5 F Susceptible <=1 , Intermediate >1 , Resistant >2 Rifampin should not be used alone for antimicrobial therapy. Tetracycline S <=1 F Susceptible <=4 , Intermediate >4 , Resistant >8 Doxycycline S <=0.5 F Susceptible <=4 , Intermediate >4 , Resistant >8 Abnormal [facility] Comment on above: Performed By: #### 6 462-6 ####[facility] [id number] [address] [place] Riky 04-28-2024 CNOV Office Visit (INTMWS ) KIESHA COLVIN ([id number]) 1940 F Date Time Provider Department 04/28/24 1:00 PM SHO BRUNO During your visit today, we recorded the following information about you: Pulse Blood pressure 60/minute 114/52 Sho Bruno APRN.FORM STRIPPER 04/28/2024 2:24 PM Signed SUBJECTIVE Kiesha Colvin is a 83 year old female here today for a check up on her medical problems. Chief Complaint Patient presents with: Wound Check: right foot HPI Kiesha Colvin is a 83 year old female. She is an established patient of Lianet Sullivan MD. Here today acutely for concerns of an open area to the foot. Right foot, bottom of foot. She has a deformity of the foot that has resulted in development of a callus. The callus has become red and open. It does have some drainage. Painful. Not improving. Toe beside the area is red. Her medications were reviewed today and her list is now up to date. Medications Current Outpatient Medications Medication Sig lisinopril 2.5 mg tablet Take 1 tablet by mouth once daily. alendronate (FOSAMAX) 70 mg tablet Take 1 tablet by mouth one time a week. Take with a full glass of water, on an empty stomach; do NOT lie down for 30minutes. atorvastatin (LIPITOR) 20 mg tablet Take one (1) tablet by mouth every evening at 9pm omeprazole (PRILOSEC) 20 mg capsule Take 1 capsule by mouth daily before breakfast. 1/2 hr before meal. PARoxetine (PAXIL) 20 mg tablet Take 1 tablet by mouth once daily. amLODIPine (NORVASC) 2.5 mg tablet Take 1 tablet by mouth two times a day. As directed naproxen (NAPROSYN) 250 mg tablet Take 250 mg by mouth two times a day with meals. EPINEPHrine (EPIPEN 2-MAKI) 0.3 mg/0.3 mL auto-injector Inject 0.3 mL intramuscularly as needed. Cholecalciferol, Vitamin D3, 25 mcg (1,000 unit) cap Take 1 capsule by mouth once daily. ferrous sulfate 325 mg (65 mg iron) tablet Take 325 mg by mouth daily with breakfast. fluticasone (FLONASE) 50 mcg/actuation nasal spray Use 2 Sprays in each nostril once daily. As needed. Rinse mouth after use. ASPIRIN 81 MG TAB Take one (1) tablet daily . MULTIVITAMIN TAB Take one(1) tablet daily. CALCIUM 500+D 500 MG-200 UNIT TAB doxycycline (VIBRA-TABS) 100 mg tablet Take 1 tablet by mouth two times a day for 10 days. No current facility-administered medications for this visit. ALLERGIES Allergen Reactions Keflex [Cephalexin] Rash, Other: See Comments Headache Penicillins ACTIVE PROBLEM LIST Impaired Glucose Metabolism - 07/16/2018 CKD (chronic kidney disease) Stage 3, GFR 30-59 ml/min - 01/29/2018 Osteoarthrosis Multiple Sites, Not Specified As Generalized - 12/09/2013 Hypertension - 06/25/2013 Comment: Use RIGHT ARM for BP readings. LEFT < RIGHT. Varicose Veins of Both Lower Extremities - 06/02/2012 Symptomatic Menopausal Or Female Climacteric States - 11/21/2010 Urge Incontinence of Urine - 11/23/2009 Idiopathic Neuropathy - 11/13/2009 Obesity, Unspecified - 11/22/2008 Pure Hypercholesterolemia - 07/24/2005 Anxiety State - 07/24/2005 Social History Tobacco Use Smoking status: Former Packs/day: 1.00 Years: 20.00 Additional pack years: 0.00 Total pack years: 20.00 Types: Cigarettes Quit date: 10/06/1978 Years since quittin.5 Smokeless tobacco: Never Substance Use Topics Alcohol use: No Drug use: No Review of Systems Respiratory: Negative. Cardiovascular: Negative. OBJECTIVE BP 114/52 Pulse 60 SpO2 97% Physical Exam Vitals and nursing note reviewed. Constitutional: General: She is awake. She is not in acute distress. Appearance: Normal appearance. She is well-developed and well-groomed. She is not ill-appearing, toxic-appearing or diaphoretic. HENT: Head: Normocephalic. Right Ear: External ear normal. Left Ear: External ear normal. Nose: Nose normal. Eyes: General: Vision grossly intact. Conjunctiva/sclera: Conjunctivae normal. Pupils: Pupils are equal, round, and reactive to light. Neck: Vascular: No JVD. Trachea: Trachea normal. Cardiovascular: Rate and Rhythm: Normal rate and regular rhythm. Pulses: Normal pulses. Heart sounds: Normal heart sounds. No murmur heard. Pulmonary: Effort: Pulmonary effort is normal. No accessory muscle usage, prolonged expiration or respiratory distress. Breath sounds: Normal breath sounds. Musculoskeletal: Cervical back: Neck supple. Feet: Feet: Comments: Right bottom of foot, lateral aspect near 5th digit with callus that has open areas between 3-6 o clock and 9-12 o clock positions. 5th digit with erythema, slight warmth Skin: General: Skin is warm and dry. Capillary Refill: Capillary refill takes less than 2 seconds. Neurological: General: No focal deficit present. Mental Status: She is alert and oriented to person, place, and time. Mental status is at baseline. Psychiatric: (more content not included)... Normal [place] 04-28-2024 [place] Telephone (INTMWS) JO ANNKIESHA ([id number]) 1940 F Date Time Provider Department 04/28/24 LIANET SULLIVAN INTWS During your visit today, we recorded the following information about you: Kamini Cabrera RN 04/28/2024 11:44 AM Signed Patient calls and states that since she had fallen previously month ago her right foot is crooked. Patient states that due to this she has developed a callous on bottom of right foot. Callous is currently red and open. Patient asking if antibiotics can be called into pharmacy. Advised patient that she needs to be seen for this so that provider can evaluated wound. Patient voiced understanding. Patient scheduled with Sho today at 1:00 pm. Kamini Cabrera RN Allergies As of Date: 04/28/2024 Noted Allergy Reaction KEFLEX (CEPHALEXIN) 03/15/2021 2 - Rash 14 - Other: See Comments Comments: Headache PENICILLINS 07/24/2005 Date Reviewed: 03/08/2024 Reviewed by: Jahaira Hurst LPN - Fully Assessed Reason for Visit: Patient Update [1234] Prescriptions as of 04/28/2024 - lisinopril 2.5 mg tablet Take 1 tablet by mouth once daily. - alendronate (FOSAMAX) 70 mg tablet Take 1 tablet by mouth one time a week. Take with a full glass of water, on an empty stomach; do NOT lie down for 30minutes. - atorvastatin (LIPITOR) 20 mg tablet Take one (1) tablet by mouth every evening at 9pm - omeprazole (PRILOSEC) 20 mg capsule Take 1 capsule by mouth daily before breakfast. 1/2 hr before meal. - PARoxetine (PAXIL) 20 mg tablet Take 1 tablet by mouth once daily. - amLODIPine (NORVASC) 2.5 mg tablet Take 1 tablet by mouth two times a day. As directed - naproxen (NAPROSYN) 250 mg tablet Take 250 mg by mouth two times a day with meals. - EPINEPHrine (EPIPEN 2-MAKI) 0.3 mg/0.3 mL auto-injector Inject 0.3 mL intramuscularly as needed. - Cholecalciferol, Vitamin D3, 25 mcg (1,000 unit) cap Take 1 capsule by mouth once daily. - ferrous sulfate 325 mg (65 mg iron) tablet Take 325 mg by mouth daily with breakfast. - fluticasone (FLONASE) 50 mcg/actuation nasal spray Use 2 Sprays in each nostril once daily. As needed. Rinse mouth after use. - ASPIRIN 81 MG TAB Take one (1) tablet daily . - MULTIVITAMIN TAB Take one(1) tablet daily. 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/2009 Obesity, Unspecified [E66.9] 11/22/2008 Unspecified vitamin D deficiency [E55.9] 03/05/2009 01/01/2017 Cellulitis and Abscess of Unspecified Site [L03*04/18/2009 11/23/2009 Idiopathic Neuropathy [G60.9] 11/13/2009 Urge incontinence of urine [N39.41] 11/23/2009 Symptomatic menopausal or female climacteric st*11/21/2010 Varicose veins of both lower extremities [I83.9*06/02/2012 Corns and callosities [L84] 12/03/2012 09/07/2015 Hypertension [I10] 06/25/2013 Osteoarthrosis multiple sites, 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*12/09/2013 CKD (chronic kidney disease) Stage 3, GFR 30-59*01/29/2018 Impaired glucose metabolism [R73.09] 07/16/2018 Rheumatoid arthritis involving multiple sites w*10/26/2019 07/21/2023 Encounter Status:Closed by KAMINI CABRERA on 04/28/24 Normal [facility] CNPVibha 04-21-2024 [place] Telephone (INTMWS) KIESHA COLVIN ([id number]) 1940 F Date Time Provider Department 04/21/24 LIANET SULLIVAN INTWS During your visit today, we recorded the following information about you: Vandana Boswell LPN 04/21/2024 3:45 PM Leona Murillo with [facility] calling to let you know pt is being d/c today from OT and Friday being d/c from [facility] PT. Lidia is requesting outpt OT and PT for pt to start next week at [facility] . Orders will need to be faxed there. DX: OT - coordination deficit - like a spinal cord injury but has not been dx this. PT- nerve impairment right foot. Please advise Lidia back when this orders have been faxed. JAY Birmingham Liza D, MD 04/21/2024 7:22 PM Signed See if order as printed Jahaira Delong LPN 04/23/2024 1:15 PM Signed Attempted x 2 to get the fax number for the facility, will call again. Information ready to fax. JAY Camejo Sue E, LPN 04/23/2024 1:50 PM Signed Left a message on Lidia FUNES with [facility], OT concerning the order being faxed to . Jahaira Hurst LPN Allergies As of Date: 04/21/2024 Noted Allergy Reaction KEFLEX (CEPHALEXIN) 03/15/2021 2 - Rash 14 - Other: See Comments Comments: Headache PENICILLINS 07/24/2005 Date Reviewed: 03/08/2024 Reviewed by: Jahaira Hurst LPN - Fully Assessed Reason for Visit: [facility] requesting orders to be faxed for outpt OT and PT [Other] Primary Visit Diagnosis:Coordination problem [R27.9] Comment:Consult OT Other Visit Diagnosis:Foot drop, right [M21.371] Comment:Consult PT Order(s):CONSULT TO NON-[facility] FACILITY [[id number]] Order #: [id number] Prescriptions as of 04/23/2024 - lisinopril 2.5 mg tablet Take 1 tablet by mouth once daily. - alendronate (FOSAMAX) 70 mg tablet Take 1 tablet by mouth one time a week. Take with a full glass of water, on an empty stomach; do NOT lie down for 30minutes. - atorvastatin (LIPITOR) 20 mg tablet Take one (1) tablet by mouth every evening at 9pm - omeprazole (PRILOSEC) 20 mg capsule Take 1 capsule by mouth daily before breakfast. 1/2 hr before meal. - PARoxetine (PAXIL) 20 mg tablet Take 1 tablet by mouth once daily. - amLODIPine (NORVASC) 2.5 mg tablet Take 1 tablet by mouth two times a day. As directed - naproxen (NAPROSYN) 250 mg tablet Take 250 mg by mouth two times a day with meals. - EPINEPHrine (EPIPEN 2-MAKI) 0.3 mg/0.3 mL auto-injector Inject 0.3 mL intramuscularly as needed. - Cholecalciferol, Vitamin D3, 25 mcg (1,000 unit) cap Take 1 capsule by mouth once daily. - ferrous sulfate 325 mg (65 mg iron) tablet Take 325 mg by mouth daily with breakfast. - fluticasone (FLONASE) 50 mcg/actuation nasal spray Use 2 Sprays in each nostril once daily. As needed. Rinse mouth after use. - ASPIRIN 81 MG TAB Take one (1) tablet daily . - MULTIVITAMIN TAB Take one(1) tablet daily. 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/2009 Obesity, Unspecified [E66.9] 11/22/2008 Unspecified vitamin D deficiency [E55.9] 03/05/2009 01/01/2017 Cellulitis and Abscess of Unspecified Site [L03*04/18/2009 11/23/2009 Idiopathic Neuropathy [G60.9] 11/13/2009 Urge incontinence of urine [N39.41] 11/23/2009 Symptomatic menopausal or female climacteric st*11/21/2010 Varicose veins of both lower extremities [I83.9*06/02/2012 Corns and callosities [L84] 12/03/2012 09/07/2015 Hypertension [I10] 06/25/2013 Osteoarthrosis multiple sites, 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*12/09/2013 CKD (chronic kidney disease) Stage 3, GFR 30-59*01/29/2018 Impaired glucose metabolism [R73.09] 07/16/2018 Rheumatoid arthritis involving multiple sites w*10/26/2019 07/21/2023 Encounter Status:Closed by JAHAIRA HURST on 04/23/24 [facility] Isaias 04-15-2024 CNPN Telephone (INTMWS) KIESHA COLVIN ([id number]) 1940 F Date Time Provider Department 04/15/24 LIANET SULLIVAN During your visit today, we recorded the following information about you: Rosalia Levi RN 04/15/2024 3:49 PM Addendum RUBY Dia @ [facility] calling to request order for ankle/foot orthotic be faxed to [facility]. Patient has persistent foot drop right foot. Ifeoma's ph # [phone] SHANTEL Mercado Terri, APRN.SCENE SHIFTER 04/16/2024 12:23 PM Signed Yulissa Cunningham LPN 04/16/2024 1:10 PM Signed RUBY Dia @ [facility] notified that order for ankle/foot orthotic has be faxed to [facility] Allergies As of Date: 04/15/2024 Noted Allergy Reaction KEFLEX (CEPHALEXIN) 03/15/2021 2 - Rash 14 - Other: See Comments Comments: Headache PENICILLINS 07/24/2005 Date Reviewed: 03/08/2024 Reviewed by: Jahaira Hurst LPN - Fully Assessed Reason for Visit: Orders [681] Primary Visit Diagnosis:Foot drop, right [M21.371] Order(s):CONSULT TO ORTHOTIC/PROSTHETIC [[id number]] Order #: [id number] Prescriptions as of 04/16/2024 - lisinopril 2.5 mg tablet Take 1 tablet by mouth once daily. - alendronate (FOSAMAX) 70 mg tablet Take 1 tablet by mouth one time a week. Take with a full glass of water, on an empty stomach; do NOT lie down for 30minutes. - atorvastatin (LIPITOR) 20 mg tablet Take one (1) tablet by mouth every evening at 9pm - omeprazole (PRILOSEC) 20 mg capsule Take 1 capsule by mouth daily before breakfast. 1/2 hr before meal. - PARoxetine (PAXIL) 20 mg tablet Take 1 tablet by mouth once daily. - amLODIPine (NORVASC) 2.5 mg tablet Take 1 tablet by mouth two times a day. As directed - naproxen (NAPROSYN) 250 mg tablet Take 250 mg by mouth two times a day with meals. - EPINEPHrine (EPIPEN 2-MAKI) 0.3 mg/0.3 mL auto-injector Inject 0.3 mL intramuscularly as needed. - Cholecalciferol, Vitamin D3, 25 mcg (1,000 unit) cap Take 1 capsule by mouth once daily. - ferrous sulfate 325 mg (65 mg iron) tablet Take 325 mg by mouth daily with breakfast. - fluticasone (FLONASE) 50 mcg/actuation nasal spray Use 2 Sprays in each nostril once daily. As needed. Rinse mouth after use. - ASPIRIN 81 MG TAB Take one (1) tablet daily . - MULTIVITAMIN TAB Take one(1) tablet daily. 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 11/23/2009 Obesity, Unspecified [E66.9] 11/22/2008 Unspecified vitamin D deficiency [E55.9] 03/05/2009 01/01/2017 Cellulitis and Abscess of Unspecified Site [L03*04/18/2009 11/23/2009 Idiopathic Neuropathy [G60.9] 11/13/2009 Urge incontinence of urine [N39.41] 11/23/2009 Symptomatic menopausal or female climacteric st*11/21/2010 Varicose veins of both lower extremities [I83.9*06/02/2012 Corns and callosities [L84] 12/03/2012 09/07/2015 Hypertension [I10] 06/25/2013 Osteoarthrosis multiple sites, 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*12/09/2013 CKD (chronic kidney disease) Stage 3, GFR 30-59*01/29/2018 Impaired glucose metabolism [R73.09] 07/16/2018 Rheumatoid arthritis involving multiple sites w*10/26/2019 07/21/2023 Encounter Status:Closed by YULISSA COTA on 04/16/24 [facility] 04-02-2024 [place] Telephone (INTMWS) SIMEONKIESHA MARTINEZ ([id number]) 1940 F Date Time Provider Department 04/02/24 LIANET SULLIVAN INTKevanWS During your visit today, we recorded the following information about you: Libertad Rodrigues RN 04/02/2024 3:41 PM Signed Ifeoma with [facility] Physical Therapy calling. They plan to continue pt's PT 2 times per week for 3 weeks for lower extremity strengthening, gait training, balance and endurance. No call back needed if provider agreeable. SHANTEL Lima Rosa, APRN.FORM STRIPPER 04/02/2024 3:53 PM Signed Noted, agreed. Allergies As of Date: 04/02/2024 Noted Allergy Reaction KEFLEX (CEPHALEXIN) 03/15/2021 2 - Rash 14 - Other: See Comments Comments: Headache PENICILLINS 07/24/2005 Date Reviewed: 03/08/2024 Reviewed by: Jahaira Hurst LPN - Fully Assessed Reason for Visit: [facility] PT Plan of Care [Other] Prescriptions as of 04/03/2024 - lisinopril 2.5 mg tablet Take 1 tablet by mouth once daily. - alendronate (FOSAMAX) 70 mg tablet Take 1 tablet by mouth one time a week. Take with a full glass of water, on an empty stomach; do NOT lie down for 30minutes. - atorvastatin (LIPITOR) 20 mg tablet Take one (1) tablet by mouth every evening at 9pm - omeprazole (PRILOSEC) 20 mg capsule Take 1 capsule by mouth daily before breakfast. 1/2 hr before meal. - PARoxetine (PAXIL) 20 mg tablet Take 1 tablet by mouth once daily. - amLODIPine (NORVASC) 2.5 mg tablet Take 1 tablet by mouth two times a day. As directed - naproxen (NAPROSYN) 250 mg tablet Take 250 mg by mouth two times a day with meals. - EPINEPHrine (EPIPEN 2-MAKI) 0.3 mg/0.3 mL auto-injector Inject 0.3 mL intramuscularly as needed. - Cholecalciferol, Vitamin D3, 25 mcg (1,000 unit) cap Take 1 capsule by mouth once daily. - ferrous sulfate 325 mg (65 mg iron) tablet Take 325 mg by mouth daily with breakfast. - fluticasone (FLONASE) 50 mcg/actuation nasal spray Use 2 Sprays in each nostril once daily. As needed. Rinse mouth after use. - ASPIRIN 81 MG TAB Take one (1) tablet daily . - MULTIVITAMIN TAB Take one(1) tablet daily. 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/2009 Obesity, Unspecified [E66.9] 11/22/2008 Unspecified vitamin D deficiency [E55.9] 03/05/2009 01/01/2017 Cellulitis and Abscess of Unspecified Site [L03*04/18/2009 11/23/2009 Idiopathic Neuropathy [G60.9] 11/13/2009 Urge incontinence of urine [N39.41] 11/23/2009 Symptomatic menopausal or female climacteric st*11/21/2010 Varicose veins of both lower extremities [I83.9*06/02/2012 Corns and callosities [L84] 12/03/2012 09/07/2015 Hypertension [I10] 06/25/2013 Osteoarthrosis multiple sites, 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*12/09/2013 CKD (chronic kidney disease) Stage 3, GFR 30-59*01/29/2018 Impaired glucose metabolism [R73.09] 07/16/2018 Rheumatoid arthritis involving multiple sites w*10/26/2019 07/21/2023 Encounter Status:[facility]INTMWS[facility] SIMEONKIESHA MARTINEZ ([id number]) 1940 F Date Time Provider Department 03/29/24 LIANET SULLIVAN During your visit today, we recorded the following information about you: Vandana Boswell LPN 03/29/2024 11:57 AM Signed Lidia with [facility], OT calling with an updated plan of care for pt. Lidia reports they are extending pt's OT. They will be seeing pt 1 time week for 1 week, then 2 time a week for 3 weeks for IADLs and home exercising. No call back needed. JAY Birmingham Terri, APRN.SCENE SHIFTER 03/29/2024 4:54 PM Signed Abby for home health care Allergies As of Date: 03/29/2024 Noted Allergy Reaction KEFLEX (CEPHALEXIN) 03/15/2021 2 - Rash 14 - Other: See Comments Comments: Headache PENICILLINS 07/24/2005 Date Reviewed: 03/08/2024 Reviewed by: Jahaira Hurst LPN - Fully Assessed Prescriptions as of 03/29/2024 - lisinopril 2.5 mg tablet Take 1 tablet by mouth once daily. - alendronate (FOSAMAX) 70 mg tablet Take 1 tablet by mouth one time a week. Take with a full glass of water, on an empty stomach; do NOT lie down for 30minutes. - atorvastatin (LIPITOR) 20 mg tablet Take one (1) tablet by mouth every evening at 9pm - omeprazole (PRILOSEC) 20 mg capsule Take 1 capsule by mouth daily before breakfast. 1/2 hr before meal. - PARoxetine (PAXIL) 20 mg tablet Take 1 tablet by mouth once daily. - amLODIPine (NORVASC) 2.5 mg tablet Take 1 tablet by mouth two times a day. As directed - naproxen (NAPROSYN) 250 mg tablet Take 250 mg by mouth two times a day with meals. - EPINEPHrine (EPIPEN 2-MAKI) 0.3 mg/0.3 mL auto-injector Inject 0.3 mL intramuscularly as needed. - Cholecalciferol, Vitamin D3, 25 mcg (1,000 unit) cap Take 1 capsule by mouth once daily. - ferrous sulfate 325 mg (65 mg iron) tablet Take 325 mg by mouth daily with breakfast. - fluticasone (FLONASE) 50 mcg/actuation nasal spray Use 2 Sprays in each nostril once daily. As needed. Rinse mouth after use. - ASPIRIN 81 MG TAB Take one (1) tablet daily . - MULTIVITAMIN TAB Take one(1) tablet daily. 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/2009 Obesity, Unspecified [E66.9] 11/22/2008 Unspecified vitamin D deficiency [E55.9] 03/05/2009 01/01/2017 Cellulitis and Abscess of Unspecified Site [L03*04/18/2009 11/23/2009 Idiopathic Neuropathy [G60.9] 11/13/2009 Urge incontinence of urine [N39.41] 11/23/2009 Symptomatic menopausal or female climacteric st*11/21/2010 Varicose veins of both lower extremities [I83.9*06/02/2012 Corns and callosities [L84] 12/03/2012 09/07/2015 Hypertension [I10] 06/25/2013 Osteoarthrosis multiple sites, 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*12/09/2013 CKD (chronic kidney disease) Stage 3, GFR 30-59*01/29/2018 Impaired glucose metabolism [R73.09] 07/16/2018 Rheumatoid arthritis involving multiple sites w*10/26/2019 07/21/2023 Encounter Status:Closed by ANTOLIN COOMBS on 03/29/24 [facility]20[facility] COL[facility] ([id number]) 1940 F Date Time Provider Department 03/25/24 LIANET SULLIVAN During your visit today, we recorded the following information about you: Alba Bowers LPN 03/25/2024 10:33 AM Signed Cori from [facility] home health calls pt's reports being placed on miralax and senna but there is nothing of this in last office note or on med list. They are asking if pt is to beon these and if so what dose and are they to be prn? Lianet Sullivan MD 03/25/2024 12:51 PM Signed Patient given recommendation in 03/23 telephone encounter RE: constipation --see that note. Can fax it to [facility] Barbara, RN 03/25/2024 3:56 PM Signed Called and spoke to Laurel. Explained we will fax note where Dr. Sullivan' gave some instructions if pt continues to have constipation issues. Will call if any questions after reviewing it. Telephone encounter from 03/23 faxed to Laurel at [facility] Allergies As of Date: 03/25/2024 Noted Allergy Reaction KEFLEX (CEPHALEXIN) 03/15/2021 2 - Rash 14 - Other: See Comments Comments: Headache PENICILLINS 07/24/2005 Date Reviewed: 03/08/2024 Reviewed by: Jahaira Hurst LPN - Fully Assessed Reason for Visit: Medication Question [4535] Cmt: for constipation issues Prescriptions as of 03/25/2024 - lisinopril 2.5 mg tablet Take 1 tablet by mouth once daily. - alendronate (FOSAMAX) 70 mg tablet Take 1 tablet by mouth one time a week. Take with a full glass of water, on an empty stomach; do NOT lie down for 30minutes. - atorvastatin (LIPITOR) 20 mg tablet Take one (1) tablet by mouth every evening at 9pm - omeprazole (PRILOSEC) 20 mg capsule Take 1 capsule by mouth daily before breakfast. 1/2 hr before meal. - PARoxetine (PAXIL) 20 mg tablet Take 1 tablet by mouth once daily. - amLODIPine (NORVASC) 2.5 mg tablet Take 1 tablet by mouth two times a day. As directed - naproxen (NAPROSYN) 250 mg tablet Take 250 mg by mouth two times a day with meals. - EPINEPHrine (EPIPEN 2-MAKI) 0.3 mg/0.3 mL auto-injector Inject 0.3 mL intramuscularly as needed. - Cholecalciferol, Vitamin D3, 25 mcg (1,000 unit) cap Take 1 capsule by mouth once daily. - ferrous sulfate 325 mg (65 mg iron) tablet Take 325 mg by mouth daily with breakfast. - fluticasone (FLONASE) 50 mcg/actuation nasal spray Use 2 Sprays in each nostril once daily. As needed. Rinse mouth after use. - ASPIRIN 81 MG TAB Take one (1) tablet daily . - MULTIVITAMIN TAB Take one(1) tablet daily. 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/2009 Obesity, Unspecified [E66.9] 11/22/2008 Unspecified vitamin D deficiency [E55.9] 03/05/2009 01/01/2017 Cellulitis and Abscess of Unspecified Site [L03*04/18/2009 11/23/2009 Idiopathic Neuropathy [G60.9] 11/13/2009 Urge incontinence of urine [N39.41] 11/23/2009 Symptomatic menopausal or female climacteric st*11/21/2010 Varicose veins of both lower extremities [I83.9*06/02/2012 Corns and callosities [L84] 12/03/2012 09/07/2015 Hypertension [I10] 06/25/2013 Osteoarthrosis multiple sites, 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*12/09/2013 CKD (chronic kidney disease) Stage 3, GFR 30-59*01/29/2018 Impaired glucose metabolism [R73.09] 07/16/2018 Rheumatoid arthritis involving multiple sites w*10/26/2019 07/21/2023 Encounter Status:Closed by ALONA QUEZADA on 03/25/24 [facility] 03-23-2024 CNPN Telephone (INTMWS) KIESHA COLVIN ([id number]) 1940 F Date Time Provider Department 03/23/24 LIANET SULLIVAN INTMWS During your visit today, we recorded the following information about you: Vandana Boswell LPN 03/23/2024 11:38 AM Signed Lidia with [facility], OT calling with a report from seeing pt today 03-23-24. Pt reports no bowel movement for 3 to 4 days. Pt started on colace 10 mg 2 days ago 03-21-24. She is taking 2 every day. Also taking Fiber laxative - calcium Polycarbophil 625 mg taking 2 per day. Pt also drinking the hospital water bottles 1 1/2 per day. Pt was instructed by Lidia to continue to drink fluid. Please advise pt on what else she can do since no BM x 3 to 4 days. JAY Birmingham Liza D, MD 03/23/2024 5:14 PM Signed Dulcolax tablet one today and may repeat tomorrow if still not adequate bowel movement. May add Miralax 1 capful once daily in AM to help prevent constipation. If the Fiberlax (calcium polycarbophil) is not helping, stop taking it and may try adding Metamucil instead on the evening. Progress note tomorrow Jahaira Hurst LPN 03/23/2024 5:41 PM Signed Attempted to reach [facility] Lidia FLANNERY and patient with no answer at either number. JAY Camejo Sue E, LPN 03/23/2024 5:41 PM Signed [place] kevin tp patient. Dulcolax tablet one today and may repeat tomorrow if still not adequate bowel movement. May add Miralax 1 capful once daily in AM to help prevent constipation. If the Fiberlax (calcium polycarbophil) is not helping, stop taking it and may try adding Metamucil instead on the evening. Progress note tomorrow Alona Quezada, RN 03/24/2024 10:23 AM Signed Called and spoke with pt. She states she had her sister give her a Fleets enema and she had good results from that. Pt given Dr. Sullivan' recommendations to prevent constipation. Pt verbalizes understanding. Lianet Sullivan MD 03/24/2024 1:14 PM Signed Noted Allergies As of Date: 03/23/2024 Noted Allergy Reaction KEFLEX (CEPHALEXIN) 03/15/2021 2 - Rash 14 - Other: See Comments Comments: Headache PENICILLINS 07/24/2005 Date Reviewed: 03/08/2024 Reviewed by: Jahaira Hurst LPN - Fully Assessed Reason for Visit: [facility], OT - constipated [Other] Prescriptions as of 03/24/2024 - lisinopril 2.5 mg tablet Take 1 tablet by mouth once daily. - alendronate (FOSAMAX) 70 mg tablet Take 1 tablet by mouth one time a week. Take with a full glass of water, on an empty stomach; do NOT lie down for 30minutes. - atorvastatin (LIPITOR) 20 mg tablet Take one (1) tablet by mouth every evening at 9pm - omeprazole (PRILOSEC) 20 mg capsule Take 1 capsule by mouth daily before breakfast. 1/2 hr before meal. - PARoxetine (PAXIL) 20 mg tablet Take 1 tablet by mouth once daily. - amLODIPine (NORVASC) 2.5 mg tablet Take 1 tablet by mouth two times a day. As directed - naproxen (NAPROSYN) 250 mg tablet Take 250 mg by mouth two times a day with meals. - EPINEPHrine (EPIPEN 2-MAKI) 0.3 mg/0.3 mL auto-injector Inject 0.3 mL intramuscularly as needed. - Cholecalciferol, Vitamin D3, 25 mcg (1,000 unit) cap Take 1 capsule by mouth once daily. - ferrous sulfate 325 mg (65 mg iron) tablet Take 325 mg by mouth daily with breakfast. - fluticasone (FLONASE) 50 mcg/actuation nasal spray Use 2 Sprays in each nostril once daily. As needed. Rinse mouth after use. - ASPIRIN 81 MG TAB Take one (1) tablet daily . - MULTIVITAMIN TAB Take one(1) tablet daily. 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/2009 Obesity, Unspecified [E66.9] 11/22/2008 Unspecified vitamin D deficiency [E55.9] 03/05/2009 01/01/2017 Cellulitis and Abscess of Unspecified Site [L03*04/18/2009 11/23/2009 Idiopathic Neuropathy [G60.9] 11/13/2009 Urge incontinence of urine [N39.41] 11/23/2009 Symptomatic menopausal or female climacteric st*11/21/2010 Varicose veins of both lower extremities [I83.9*06/02/2012 Corns and callosities [L84] 12/03/2012 09/07/2015 Hypertension [I10] 06/25/2013 Osteoarthrosis multiple sites, 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*12/09/2013 CKD (chronic kidney disease) Stage 3, GFR 30-59*01/29/2018 Impaired glucose metabolism [R73.09] 07/16/2018 Rheumatoid arthritis involving multiple sites w*10/26/2019 07/21/2023 Encounter Status:Closed by LIANET SULLIVAN on 03/24/24 [facility]20[facility] KIESHA COLVIN ([id number]) 1940 F Date Time Provider Department 6/6/24 LIANET SULLIVAN INTMWS During your visit today, we recorded the following information about you: Rosalia Levi RN 03/11/2024 2:06 PM Signed nurse Odell @ [facility] calling with plan of care. Nursing evaluated patient today and will plan to see x 1 next week for BP check. They will contact [facility] for follow up. SHANTEL Mercado Liza D, MD 03/11/2024 5:45 PM Signed Noted. Lianet Sullivan MD Allergies As of Date: 03/11/2024 Noted Allergy Reaction KEFLEX (CEPHALEXIN) 03/15/2021 2 - Rash 14 - Other: See Comments Comments: Headache PENICILLINS 07/24/2005 Date Reviewed: 03/08/2024 Reviewed by: Jahaira Hurst LPN - Fully Assessed Reason for Visit: FYI-care home health update [Other] Prescriptions as of 03/15/2024 - alendronate (FOSAMAX) 70 mg tablet Take 1 tablet by mouth one time a week. Take with a full glass of water, on an empty stomach; do NOT lie down for 30minutes. - atorvastatin (LIPITOR) 20 mg tablet Take one (1) tablet by mouth every evening at 9pm - omeprazole (PRILOSEC) 20 mg capsule Take 1 capsule by mouth daily before breakfast. 1/2 hr before meal. - PARoxetine (PAXIL) 20 mg tablet Take 1 tablet by mouth once daily. - amLODIPine (NORVASC) 2.5 mg tablet Take 1 tablet by mouth two times a day. As directed - lisinopril 2.5 mg tablet Take 2.5 mg by mouth once daily. - naproxen (NAPROSYN) 250 mg tablet Take 250 mg by mouth two times a day with meals. - EPINEPHrine (EPIPEN 2-MAKI) 0.3 mg/0.3 mL auto-injector Inject 0.3 mL intramuscularly as needed. - Cholecalciferol, Vitamin D3, 25 mcg (1,000 unit) cap Take 1 capsule by mouth once daily. - ferrous sulfate 325 mg (65 mg iron) tablet Take 325 mg by mouth daily with breakfast. - fluticasone (FLONASE) 50 mcg/actuation nasal spray Use 2 Sprays in each nostril once daily. As needed. Rinse mouth after use. - ASPIRIN 81 MG TAB Take one (1) tablet daily . - MULTIVITAMIN TAB Take one(1) tablet daily. 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/2009 Obesity, Unspecified [E66.9] 11/22/2008 Unspecified vitamin D deficiency [E55.9] 03/05/2009 01/01/2017 Cellulitis and Abscess of Unspecified Site [L03*04/18/2009 11/23/2009 Idiopathic Neuropathy [G60.9] 11/13/2009 Urge incontinence of urine [N39.41] 11/23/2009 Symptomatic menopausal or female climacteric st*11/21/2010 Varicose veins of both lower extremities [I83.9*06/02/2012 Corns and callosities [L84] 12/03/2012 09/07/2015 Hypertension [I10] 06/25/2013 Osteoarthrosis multiple sites, 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*12/09/2013 CKD (chronic kidney disease) Stage 3, GFR 30-59*01/29/2018 Impaired glucose metabolism [R73.09] 07/16/2018 Rheumatoid arthritis involving multiple sites w*10/26/2019 07/21/2023 Encounter Status:Closed by ROSALIA LEVI on 03/15/24 Normal [facility] XR SPINE CERVICAL AP/LAT/FLE X/EXTon 03-03-2024 XR SPINE CERVICAL AP/LAT/FLEX/EXT ORIGINAL EXAMINATION: FIVE XRAY VIEWS OF THE CERVICAL SPINE INCLUDING FLEX/EX VIEWS 03/02/2024 10:55 am COMPARISON: CT cervical spine on 12/30/2023. MRI of the cervical spine on 12/28/2023 HISTORY: ORDERING SYSTEM PROVIDED HISTORY: Reason for Exam: cervical fracture FINDINGS: Cervical spine alignment demonstrates no subluxation. Lateral views with flexion extension show no abnormal motion. There is moderate multilevel degenerative disc disease that is greatest at C5-C6 and C6-C7. No fracture is detected. Degenerative narrowing of facet joints bilaterally is present throughout the cervical spine. There is no prevertebral soft tissue swelling. IMPRESSION: 1. Moderate cervical spondylosis. 2. No fracture detected on this plain film exam. No subluxation. Interpreted by: Aldo Vivas MD Preliminary Report By: Aldo Vivas MD Electronically signed By Aldo Vivas MD Dictated Date: 03/03/2024 2:07:30 AM Prelim Date: 03/03/2024 2:12:10 AM Sign Date: 03/03/2024 2:12:10 AM Ordering Provider: DAISY BARBER [facility] ([place]) .GFRon 01-08-2024 GFR >60 Normal [facility] ([place]) Comment on above: Result Comment: GFR Population mean for , Non- Americans Ages 20-29 = 116 mL/min/1.73 sq.m. Ages 30-39 = 107 mL/min/1.73 sq.m. Ages 40-49 = 99 mL/min/1.73 sq.m. Ages 50-59 = 93 mL/min/1.73 sq.m. Ages 60-69 = 85 mL/min/1.73 sq.m. Ages 70+ = 75 mL/min/1.73 sq.m. Chronic Kidney Disease: Less than 60 mL/min/1.73 square meters End Stage Renal Disease: Less than 15 mL/min/1.73 square meters Performed By: #### G FR, TSH, BMP #### [place] [address] GFR Non- >60 Normal [facility] ([place]) Comment on above: Result Comment: GFR Population mean for , Non- Americans Ages 20-29 = 116 mL/min/1.73 sq.m. Ages 30-39 = 107 mL/min/1.73 sq.m. Ages 40-49 = 99 mL/min/1.73 sq.m. Ages 50-59 = 93 mL/min/1.73 sq.m. Ages 60-69 = 85 mL/min/1.73 sq.m. Ages 70+ = 75 mL/min/1.73 sq.m. Chronic Kidney Disease: Less than 60 mL/min/1.73 square meters End Stage Renal Disease: Less than 15 mL/min/1.73 square meters Performed By: #### CHERRY FERNANDEZ BMP #### [address] [address] [facility] BUN/Creatinine Ratio 41.7 ratio High 10.0-22.0 [facility] ([place]) Comment on above: Performed By: #### CHERRY FERNANDEZ, BMP #### [address] [address] Calcium [Mass/Vol] 8.2 mg/dL Low 8.7-10.4 [facility] ([place]) Comment on above: Performed By: #### CHERRY FERNANDEZ, BMP #### [address] [address] Chloride [Moles/Vol] 102 mmol/L Normal 98-110 [facility] ([place]) Comment on above: Performed By: #### CHERRY FERNANDEZ, BMP #### [address] [address] CO2 [Moles/Vol] 22 mmol/L Normal 22-32 [facility] ([place]) Comment on above: Performed By: #### CHERRY FERNANDEZ, BMP #### [address] [address] Creatinine [Mass/Vol] 0.72 mg/dL Normal 0.50-1.20 [facility] ([place]) Comment on above: Performed By: #### CHERRY FERNANDEZ, BMP #### [address] [address] Electrolyte Balance 11.0 mEq/L Normal 4.0-15.0 [facility] ([place]) Comment on above: Performed By: #### CHERRY FERNANDEZ, BMP #### [address] [address] Glucose [Mass/Vol] 109 mg/dL Normal 82-115 [facility] ([place]) Comment on above: Performed By: #### CHERRY FERNANDEZ, BMP #### [address] [address] Potassium [Moles/Vol] 4.2 mmol/L Normal 3.5-5.0 [facility] ([place]) Comment on above: Performed By: #### G CHERRY MORAN BMP #### [address] [address] Sodium [Moles/Vol] 135 mmol/L Low 136-145 [facility] ([place]) Comment on above: Performed By: #### CHERRY FERNANDEZ BMP #### [address] [address] Urea nitrogen [Mass/Vol] 30.0 mg/dL High 8.0-22.0 [facility] ([place]) Comment on above: Performed By: #### CHERRY FERNANDEZ BMP #### [address] [address] LABORATORYOrdered By: SYSTEM SYSTEM on 01-08-2024 Calcium [Mass/Vol] 8.2 mg/dL Low 8.7 - 10. 4 mg/dL ADM SS Chloride [Moles/Vol] 102 mmol/L Normal 98 - 11 0 mEq/L ADM SS CO2 [Moles/Vol] 22 mmol/L Normal 22 - 32 mEq/L ADM SS Creatinine [Mass/Vol] 0.72 mg/dL Normal 0.50 - 1.20 mg/dL ADM SS Electrolyte Balance 11.0 mEq/L Normal 4.0 - 15 .0 mEq/L ADM SS GFR/1.73 sq M.predicted among blacks MDRD (S/P/Bld) [Vol rate/Area] ml/min/1.73sqm Invalid Interpretation Code Chemistry S Comment on above: Interpretive Data: GFR Population mean for , Non- Americans Ages 20-29 = 116 mL/min/1.73 sq.m. Ages 30-39 = 107 mL/min/1.73 sq.m. Ages 40-49 = 99 mL/min/1.73 sq.m. Ages 50-59 = 93 mL/min/1.73 sq.m. Ages 60-69 = 85 mL/min/1.73 sq.m. Ages 70+ = 75 mL/min/1.73 sq.m. Chronic Kidney Disease: Less than 60 mL/min/1.73 square meters End Stage Renal Disease: Less than 15 mL/min/1.73 square meters GFR/1.73 sq M.predicted among non-blacks MDRD (S/P/Bld) [Vol rate/Area] ml/min/1.73sqm Invalid Interpretation Code Chemistry S Comment on above: Interpretive Data: GFR Population mean for , Non- Americans Ages 20-29 = 116 mL/min/1.73 sq.m. Ages 30-39 = 107 mL/min/1.73 sq.m. Ages 40-49 = 99 mL/min/1.73 sq.m. Ages 50-59 = 93 mL/min/1.73 sq.m. Ages 60-69 = 85 mL/min/1.73 sq.m. Ages 70+ = 75 mL/min/1.73 sq.m. Chronic Kidney Disease: Less than 60 mL/min/1.73 square meters End Stage Renal Disease: Less than 15 mL/min/1.73 square meters Glucose [Mass/Vol] 109 mg/dL Normal 82 - 115 mg/dL AH ADM SS Potassium [Moles/Vol] 4.2 mmol/L Normal 3.5 - 5.0 mEq/L AH ADM SS Sodium [Moles/Vol] 135 mmol/L Low 136 - 145 mEq/L AH ADM SS TSH Qn 1.169 mIU/mL Normal 0.550 - 4.780 mIU/mL AH ADM SS Comment on above: Interpretive Data: * *Note - New Reference Range in effect 20 Urea nitrogen [Mass/Vol] 30.0 mg/dL High 8.0 - 22.0 mg/dL AH ADM SS Urea nitrogen/Creatinine [Mass ratio] 41.7 ratio High 10.0 - 22.0 ratio AH ADM SS TSHon 01-08-2024 TSH 1.169 mIU/mL Normal 0.550-4.78 0 [facility] ([place]) Comment on above: Result Comment: No te - New Reference Range in effect 20 Performed By: #### G FR, TSH, BMP #### [place] [address] LABORATORYOrdered By: SYSTEM SYSTEM on 01-05-2024 Magnesium [Mass/Vol] 1.9 mg/dL Normal 1.6 - 2 .4 mg/dL AH ADM SS MGon 01-05-2024 Magnesium [Mass/Vol] 1.9 mg/dL Normal 1.6-2.4 [facility] ([place]) Comment on above: Performed By: #### A LC #### [address] [address] .Auto Diffon 01-04-2024 Basophil, Absolute 0.0 10 3/mcL Normal 0.0-0.3 [facility] ([place]) Comment on above: Performed By: #### A LC #### [address] [address] Basophils/100 WBC (Bld) 0.2 % Normal 0.0-2.5 [facility] ([place]) Comment on above: Performed By: #### A LC #### [address] [address] Eosinophil, Absolute 0.0 10 3/mcL Normal 0.0-0.7 [facility] ([place]) Comment on above: Performed By: #### A LC #### [address] [address] Eosinophils/100 WBC (Bld) 0.1 % Normal 0.0-6.0 [facility] ([place]) Comment on above: Performed By: #### A LC #### [address] [address] Lymphocyte, Absolute 1.0 10 3/mcL Normal 0.9-4.3 [facility] ([place]) Comment on above: Performed By: #### A LC #### [address] [address] Lymphocytes/100 WBC (Bld) 10.3 % Low 20.0-40.0 [facility] ([place]) Comment on above: Performed By: #### A LC #### [address] [address] Monocyte, Absolute 0.8 10 3/mcL Normal 0.1-1.4 [facility] ([place]) Comment on above: Performed By: #### A LC #### [address] [address] Monocytes/100 WBC (Bld) 8.2 % Normal 2.0-13.0 [facility] ([place]) Comment on above: Performed By: #### A LC #### [address] [address] Neutrophils/100 WBC (Bld) 81.2 % High 50.0-75.0 [facility] ([place]) Comment on above: Performed By: #### A LC #### [address] [address] .Morphon 01-04-2024 Platelet Estimate Slt Decreased Normal [facility] ([place]) Comment on above: Performed By: #### A LC #### [place] [id number] RBC morphology finding Nom (Bld) See Below Normal [facility] ([place]) Comment on above: Result Comment: RBC Morphology appears Normal See Below RBC Morphology appears Normal Performed By: #### A LC #### [place] [id number] .NEUABSon 01-04-2024 Neutrophil, Absolute 8.0 10 3/mcL Normal 2.3-8.1 [facility] ([place]) Comment on above: Performed By: #### A LC #### [place] [id number] CBCon 01-04-2024 Erythrocyte distribution width (RBC) [Ratio] 13.6 % Normal 11.5-15.5 [facility] ([place]) Comment on above: Performed By: #### A LC #### [address] [address] Hematocrit (Bld) [Volume fraction] 33.4 % Low 34.0-46.0 [facility] ([place]) Comment on above: Performed By: #### A LC #### [place] [id number] Hgb 11.8 G/dL Low 12.0-16.0 [facility] ([place]) Comment on above: Performed By: #### A LC #### [place] [id number] MCH (RBC) [Entitic mass] 30.8 pg Normal 27.0-33.0 [facility] ([place]) Comment on above: Performed By: #### A LC #### [place] [address] MCHC 35.3 G/dL Normal 32.0-36.0 [facility] ([place]) Comment on above: Performed By: #### A LC #### [place] [address] MCV (RBC) [Entitic vol] 87.2 fL Normal 80.0-99.0 [facility] ([place]) Comment on above: Performed By: #### A LC #### [place] [address] Platelet 144 10 3/mcL Low 150-450 [facility] ([place]) Comment on above: Performed By: #### A LC #### [place] [address] Platelet mean volume (Bld) [Entitic vol] 9.4 fL Normal 6.6-10.5 [facility] ([place]) Comment on above: Performed By: #### A LC #### [place] [address] RBC 3.83 10 6/mcL Low 4.10-5.30 [facility] ([place]) Comment on above: Performed By: #### A LC #### [place] [address] WBC 9.9 10 3/mcL Normal 4.5-10.8 [facility] ([place]) Comment on above: Performed By: #### A LC #### [place] [address] LABORATORYOrdered By: SYSTEM SYSTEM on 01-04-2024 Basophils (Bld) [#/Vol] 0.0 103/mcL Normal 0.0 - 0.3 10^3/mcL AH Workflow SS Basophils/100 WBC (Bld) 0.2 % Normal 0.0 - 2.5 % AH Workflow SS Eosinophils (Bld) [#/Vol] 0.0 103/mcL Normal 0.0 - 0.7 10^3/mcL AH Workflow SS Eosinophils/100 WBC (Bld) 0.1 % Normal 0.0 - 6.0 % AH Workflow SS Erythrocyte distribution width (RBC) [Ratio] 13.6 % Normal 11.5 - 15.5 % AH Workflow SS Hematocrit (Bld) [Volume fraction] 33.4 % Low 34.0 - 46.0 % AH Workflow SS Hemoglobin (Bld) [Mass/Vol] 11.8 G/dL Low 12.0 - 16.0 G/dL AH Workflow SS Lymphocytes (Bld) [#/Vol] 1.0 103/mcL Normal 0.9 - 4.3 10^3/mcL AH Workflow SS Lymphocytes/100 WBC (Bld) 10.3 % Low 20.0 - 40.0 % AH Workflow SS MCH (RBC) [Entitic mass] 30.8 pg Normal 27.0 - 33.0 pg AH Workflow SS MCHC 35.3 G/dL Normal 32.0 - 36.0 G/dL AH Workflow SS MCV (RBC) [Entitic vol] 87.2 fL Normal 80.0 - 99.0 fL AH Workflow SS Monocytes (Bld) [#/Vol] 0.8 103/mcL Normal 0.1 - 1.4 10^3/mcL AH Workflow SS Monocytes/100 WBC (Bld) 8.2 % Normal 2.0 - 13.0 % AH Workflow SS Neutrophils (Bld) [#/Vol] 8.0 103/mcL Normal 2.3 - 8.1 10^3/mcL AH Workflow SS Neutrophils/100 WBC (Bld) 81.2 % High 50.0 - 75.0 % AH Workflow SS Platelet mean volume (Bld) [Entitic vol] 9.4 fL Normal 6.6 - 10.5 fL AH Workflow SS Platelets (Bld) [#/Vol] 144 103/mcL Low 150 - 450 10^3/mcL AH Workflow SS Platelets LM Ql (Bld) Slt Decreased *NA* (01/04/24 5:05 AM) Invalid Interpretation Code AH Workflow SS RBC (Bld) [#/Vol] 3.83 106/mcL Low 4.10 - 5.30 10^6/mcL AH Workflow SS RBC morphology finding Nom (Bld) See Below 1 *NA* (01/04/24 5:05 AM) Invalid Interpretation Code Workflow SS Comment on above: Result Comment: RBC Morphology appears Normal RBC morphology finding Nom (Bld) See Below 2 *NA* (01/04/24 5:05 AM) Invalid Interpretation Code Workflow SS Comment on above: Result Comment: RBC Morphology appears Normal WBC (Bld) [#/Vol] 9.9 103/mcL Normal 4.5 - 10.8 10^3/mcL Workflow SS .Auto Diffon 01-02-2024 Basophil, Absolute 0.0 10 3/mcL Normal 0.0-0.3 [facility] ([place]) Comment on above: Performed By: #### A LAURENCE, CBC, ADIFF #### [address] [address] Basophils/100 WBC (Bld) 0.1 % Normal 0.0-2.5 [facility] ([place]) Comment on above: Performed By: #### A LAURENCE, CBC, ADIFF #### [address] [address] Eosinophil, Absolute 0.0 10 3/mcL Normal 0.0-0.7 [facility] ([place]) Comment on above: Performed By: #### A LAURENCE, CBC, ADIFF #### [address] [address] Eosinophils/100 WBC (Bld) 0.0 % Normal 0.0-6.0 [facility] ([place]) Comment on above: Performed By: #### A LAURENCE, CBC, ADIFF #### [address] [address] Lymphocyte, Absolute 0.9 10 3/mcL Normal 0.9-4.3 [facility] ([place]) Comment on above: Performed By: #### A LAURENCE, CBC, ADIFF #### [address] [address] Lymphocytes/100 WBC (Bld) 11.9 % Low 20.0-40.0 [facility] ([place]) Comment on above: Performed By: #### A LAURENCE, CBC, ADIFF #### [address] [address] Monocyte, Absolute 0.4 10 3/mcL Normal 0.1-1.4 [facility] ([place]) Comment on above: Performed By: #### A LAURENCE, CBC, ADIFF #### [address] [address] Monocytes/100 WBC (Bld) 6.0 % Normal 2.0-13.0 [facility] ([place]) Comment on above: Performed By: #### A LAURENCE, CBC, ADIFF #### [address] [address] Neutrophils/100 WBC (Bld) 82.0 % High 50.0-75.0 [facility] ([place]) Comment on above: Performed By: #### A LAURENCE, CBC, ADIFF #### [place] [address] .NEUABSon 01-02-2024 Neutrophil, Absolute 6.0 10 3/mcL Normal 2.3-8.1 [facility] ([place]) Comment on above: Performed By: #### A LAURENCE, CBC, ADIFF #### [place] [address] CBCon 01-02-2024 Erythrocyte distribution width (RBC) [Ratio] 13.7 % Normal 11.5-15.5 [facility] ([place]) Comment on above: Performed By: #### A LAURENCE, CBC, ADIFF #### [place] [address] Hematocrit (Bld) [Volume fraction] 33.0 % Low 34.0-46.0 [facility] ([place]) Comment on above: Performed By: #### A LAURENCE, CBC, ADIFF #### [place] [address] Hgb 11.4 G/dL Low 12.0-16.0 [facility] ([place]) Comment on above: Performed By: #### A LAURENCE, CBC, ADIFF #### [place] [id number] MCH (RBC) [Entitic mass] 30.4 pg Normal 27.0-33.0 [facility] ([place]) Comment on above: Performed By: #### A LAURENCE, CBC, ADIFF #### [place] [id number] MCHC 34.5 G/dL Normal 32.0-36.0 [facility] ([place]) Comment on above: Performed By: #### A LAURENCE, CBC, ADIFF #### [address] [address] MCV (RBC) [Entitic vol] 88.3 fL Normal 80.0-99.0 [facility] ([place]) Comment on above: Performed By: #### A LAURENCE, CBC, ADIFF #### [address] [address] Platelet 133 10 3/mcL Low 150-450 [facility] ([place]) Comment on above: Performed By: #### A LAURENCE, CBC, ADIFF #### [place] [address] Platelet mean volume (Bld) [Entitic vol] 8.9 fL Normal 6.6-10.5 [facility] ([place]) Comment on above: Performed By: #### A LAURENCE, CBC, ADIFF #### [place] [id number] RBC 3.73 10 6/mcL Low 4.10-5.30 [facility] ([place]) Comment on above: Performed By: #### A LAURENCE, CBC, ADIFF #### [address] [address] WBC 7.3 10 3/mcL Normal 4.5-10.8 [facility] ([place]) Comment on above: Performed By: #### A LAURENCE, CBC, ADIFF #### [address] [address] LABORATORYOrdered By: SYSTEM SYSTEM on 01-02-2024 Basophils (Bld) [#/Vol] 0.0 103/mcL Normal 0.0 - 0.3 10^3/mcL AH Workflow SS Basophils/100 WBC (Bld) 0.1 % Normal 0.0 - 2.5 % AH Workflow SS Eosinophils (Bld) [#/Vol] 0.0 103/mcL Normal 0.0 - 0.7 10^3/mcL AH Workflow SS Eosinophils/100 WBC (Bld) 0.0 % Normal 0.0 - 6.0 % AH Workflow SS Erythrocyte distribution width (RBC) [Ratio] 13.7 % Normal 11.5 - 15.5 % AH Workflow SS Hematocrit (Bld) [Volume fraction] 33.0 % Low 34.0 - 46.0 % AH Workflow SS Hemoglobin (Bld) [Mass/Vol] 11.4 G/dL Low 12.0 - 16.0 G/dL AH Workflow SS Lymphocytes (Bld) [#/Vol] 0.9 103/mcL Normal 0.9 - 4.3 10^3/mcL AH Workflow SS Lymphocytes/100 WBC (Bld) 11.9 % Low 20.0 - 40.0 % AH Workflow SS MCH (RBC) [Entitic mass] 30.4 pg Normal 27.0 - 33.0 pg AH Workflow SS MCHC 34.5 G/dL Normal 32.0 - 36.0 G/dL AH Workflow SS MCV (RBC) [Entitic vol] 88.3 fL Normal 80.0 - 99.0 fL AH Workflow SS Monocytes (Bld) [#/Vol] 0.4 103/mcL Normal 0.1 - 1.4 10^3/mcL AH Workflow SS Monocytes/100 WBC (Bld) 6.0 % Normal 2.0 - 13.0 % AH Workflow SS Neutrophils (Bld) [#/Vol] 6.0 103/mcL Normal 2.3 - 8.1 10^3/mcL AH Workflow SS Neutrophils/100 WBC (Bld) 82.0 % High 50.0 - 75.0 % AH Workflow SS Platelet mean volume (Bld) [Entitic vol] 8.9 fL Normal 6.6 - 10.5 fL AH Workflow SS Platelets (Bld) [#/Vol] 133 103/mcL Low 150 - 450 10^3/mcL AH Workflow SS RBC (Bld) [#/Vol] 3.73 106/mcL Low 4.10 - 5.30 10^6/mcL AH Workflow SS WBC (Bld) [#/Vol] 7.3 103/mcL Normal 4.5 - 10.8 10^3/mcL AH Workflow SS .Auto Diffon 12-31-2023 Basophil, Absolute 0.0 10 3/mcL Normal 0.0-0.3 [facility] ([place]) Comment on above: Performed By: #### P RO, FERR, CBC, B12, FES, ADIFF, BMP, ANEU, GFR, FOL, FIB ####[address] [address] Basophils/100 WBC (Bld) 0.2 % Normal 0.0-2.5 [facility] ([place]) Comment on above: Performed By: #### P RO, FERR, CBC, B12, FES, ADIFF, BMP, ANEU, GFR, FOL, FIB ####[address] [address] Eosinophil, Absolute 0.0 10 3/mcL Normal 0.0-0.7 [facility] ([place]) Comment on above: Performed By: #### P RO, FERR, CBC, B12, FES, ADIFF, BMP, ANEU, GFR, FOL, FIB ####[address] [address] Eosinophils/100 WBC (Bld) 0.0 % Normal 0.0-6.0 [facility] ([place]) Comment on above: Performed By: #### P RO, FERR, CBC, B12, FES, ADIFF, BMP, ANEU, GFR, FOL, FIB ####[address] [address] Lymphocyte, Absolute 0.8 10 3/mcL Low 0.9-4.3 [facility] ([place]) Comment on above: Performed By: #### P RO, FERR, CBC, B12, FES, ADIFF, BMP, ANEU, GFR, FOL, FIB ####[address] [address] Lymphocytes/100 WBC (Bld) 10.2 % Low 20.0-40.0 [facility] ([place]) Comment on above: Performed By: #### P RO, FERR, CBC, B12, FES, ADIFF, BMP, ANEU, GFR, FOL, FIB ####[address] [address] Monocyte, Absolute 0.2 10 3/mcL Normal 0.1-1.4 [facility] ([place]) Comment on above: Performed By: #### P RO, FERR, CBC, B12, FES, ADIFF, BMP, ANEU, GFR, FOL, FIB ####[address] [address] Monocytes/100 WBC (Bld) 2.6 % Normal 2.0-13.0 [facility] ([place]) Comment on above: Performed By: #### P RO, FERR, CBC, B12, FES, ADIFF, BMP, ANEU, GFR, FOL, FIB ####[address] [address] Neutrophils/100 WBC (Bld) 87.0 % High 50.0-75.0 [facility] ([place]) Comment on above: Performed By: #### P RO, FERR, CBC, B12, FES, ADIFF, BMP, ANEU, GFR, FOL, FIB ####[address] [address] .GFRon 12-31-2023 GFR Non- >60 Normal [facility] ([place]) Comment on above: Result Comment: GFR Population mean for , Non- Americans Ages 20-29 = 116 mL/min/1.73 sq.m. Ages 30-39 = 107 mL/min/1.73 sq.m. Ages 40-49 = 99 mL/min/1.73 sq.m. Ages 50-59 = 93 mL/min/1.73 sq.m. Ages 60-69 = 85 mL/min/1.73 sq.m. Ages 70+ = 75 mL/min/1.73 sq.m. Chronic Kidney Disease: Less than 60 mL/min/1.73 square meters End Stage Renal Disease: Less than 15 mL/min/1.73 square meters Performed By: #### A LC #### [address] [address] GFR >60 Normal [facility] ([place]) Comment on above: Result Comment: GFR Population mean for , Non- Americans Ages 20-29 = 116 mL/min/1.73 sq.m. Ages 30-39 = 107 mL/min/1.73 sq.m. Ages 40-49 = 99 mL/min/1.73 sq.m. Ages 50-59 = 93 mL/min/1.73 sq.m. Ages 60-69 = 85 mL/min/1.73 sq.m. Ages 70+ = 75 mL/min/1.73 sq.m. Chronic Kidney Disease: Less than 60 mL/min/1.73 square meters End Stage Renal Disease: Less than 15 mL/min/1.73 square meters Performed By: #### A LC #### [address] [address] .NEUABSon 12-31-2023 Neutrophil, Absolute 6.7 10 3/mcL Normal 2.3-8.1 [facility] ([place]) Comment on above: Performed By: #### P RO, FERR, CBC, B12, FES, ADIFF, BMP, ANEU, GFR, FOL, FIB ####[place] [address] APTTon 12-31-2023 aPTT Coag (Bld) [Time] 24.0 s Low 25.0-35.0 [facility] ([place]) Comment on above: Result Comment: For Heparin anticoagulation therapy, the recommended therapeutic range is: 54-77 seconds (APTT Correlation with Anti-Xa therapeutic range of 0.3-0.7 units/ml). PLEASE REFERENCE THE PHARMACY PROTOCOL FOR DOSING. Performed By: #### P RO, FERR, CBC, B12, FES, ADIFF, BMP, ANEU, GFR, FOL, FIB ####[place] [address] Heparin dose (APTT) None Normal [facility] ([place]) Comment on above: Performed By: #### P RO, FERR, CBC, B12, FES, ADIFF, BMP, ANEU, GFR, FOL, FIB ####[place] [address] B12on 12-31-2023 Cobalamin (Vitamin B12) [Mass/Vol] 345 pg/mL Normal 211-911 [facility] ([place]) Comment on above: Performed By: #### A LC #### [place] [id number] BMPon 12-31-2023 BUN/Creatinine Ratio 38.5 ratio High 10.0-22.0 [facility] ([place]) Comment on above: Performed By: #### P RO, FERR, CBC, B12, FES, ADIFF, BMP, ANEU, GFR, FOL, FIB ####[address] [address] Calcium [Mass/Vol] 8.6 mg/dL Low 8.7-10.4 [facility] ([place]) Comment on above: Performed By: #### P RO, FERR, CBC, B12, FES, ADIFF, BMP, ANEU, GFR, FOL, FIB ####[place] [id number] Chloride [Moles/Vol] 107 mmol/L Normal 98-110 [facility] ([place]) Comment on above: Performed By: #### P RO, FERR, CBC, B12, FES, ADIFF, BMP, ANEU, GFR, FOL, FIB ####[place] [id number] CO2 [Moles/Vol] 27 mmol/L Normal 22-32 [facility] ([place]) Comment on above: Performed By: #### P RO, FERR, CBC, B12, FES, ADIFF, BMP, ANEU, GFR, FOL, FIB ####[place] [address] Creatinine [Mass/Vol] 0.78 mg/dL Normal 0.50-1.20 [facility] ([place]) Comment on above: Performed By: #### P RO, FERR, CBC, B12, FES, ADIFF, BMP, ANEU, GFR, FOL, FIB ####[place] [address] Electrolyte Balance 7.0 mEq/L Normal 4.0-15.0 [facility] ([place]) Comment on above: Performed By: #### P RO, FERR, CBC, B12, FES, ADIFF, BMP, ANEU, GFR, FOL, FIB ####[place] [id number] Glucose [Mass/Vol] 142 mg/dL High 82-115 [facility] ([place]) Comment on above: Performed By: #### P RO, FERR, CBC, B12, FES, ADIFF, BMP, ANEU, GFR, FOL, FIB ####[place] [id number] Potassium [Moles/Vol] 4.2 mmol/L Normal 3.5-5.0 [facility] ([place]) Comment on above: Performed By: #### P RO, FERR, CBC, B12, FES, ADIFF, BMP, ANEU, GFR, FOL, FIB ####[place] [address] Sodium [Moles/Vol] 141 mmol/L Normal 136-145 [facility] ([place]) Comment on above: Performed By: #### P RO, FERR, CBC, B12, FES, ADIFF, BMP, ANEU, GFR, FOL, FIB ####[place] [address] Urea nitrogen [Mass/Vol] 30.0 mg/dL High 8.0-22.0 [facility] ([place]) Comment on above: Performed By: #### P RO, FERR, CBC, B12, FES, ADIFF, BMP, ANEU, GFR, FOL, FIB ####[place] [address] CBCon 12-31-2023 Erythrocyte distribution width (RBC) [Ratio] 13.8 % Normal 11.5-15.5 [facility] ([place]) Comment on above: Performed By: #### P RO, FERR, CBC, B12, FES, ADIFF, BMP, ANEU, GFR, FOL, FIB ####[place] [address] Hematocrit (Bld) [Volume fraction] 31.7 % Low 34.0-46.0 [facility] ([place]) Comment on above: Performed By: #### P RO, FERR, CBC, B12, FES, ADIFF, BMP, ANEU, GFR, FOL, FIB ####[place] [address] Hgb 10.8 G/dL Low 12.0-16.0 [facility] ([place]) Comment on above: Performed By: #### P RO, FERR, CBC, B12, FES, ADIFF, BMP, ANEU, GFR, FOL, FIB ####[place] [address] MCH (RBC) [Entitic mass] 30.5 pg Normal 27.0-33.0 [facility] ([place]) Comment on above: Performed By: #### P RO, FERR, CBC, B12, FES, ADIFF, BMP, ANEU, GFR, FOL, FIB ####[place] [address] MCHC 34.0 G/dL Normal 32.0-36.0 [facility] ([place]) Comment on above: Performed By: #### P RO, FERR, CBC, B12, FES, ADIFF, BMP, ANEU, GFR, FOL, FIB ####[place] [address] MCV (RBC) [Entitic vol] 89.8 fL Normal 80.0-99.0 [facility] ([place]) Comment on above: Performed By: #### P RO, FERR, CBC, B12, FES, ADIFF, BMP, ANEU, GFR, FOL, FIB ####[place] [address] Platelet 131 10 3/mcL Low 150-450 [facility] ([place]) Comment on above: Performed By: #### P RO, FERR, CBC, B12, FES, ADIFF, BMP, ANEU, GFR, FOL, FIB ####[place] [address] Platelet mean volume (Bld) [Entitic vol] 9.5 fL Normal 6.6-10.5 [facility] ([place]) Comment on above: Performed By: #### P RO, FERR, CBC, B12, FES, ADIFF, BMP, ANEU, GFR, FOL, FIB ####[place] [address] RBC 3.53 10 6/mcL Low 4.10-5.30 [facility] ([place]) Comment on above: Performed By: #### P RO, FERR, CBC, B12, FES, ADIFF, BMP, ANEU, GFR, FOL, FIB ####[place] [address] WBC 7.7 10 3/mcL Normal 4.5-10.8 [facility] ([place]) Comment on above: Performed By: #### P RO, FERR, CBC, B12, FES, ADIFF, BMP, ANEU, GFR, FOL, FIB ####[place] [address] Dorinda 12-31-2023 Ferritin [Mass/Vol] 85.3 ng/mL Normal 8.0-252.0 [facility] ([place]) Comment on above: Performed By: #### A LC #### [place] [address] FESon 12-31-2023 Iron [Mass/Vol] 88 ug/dL Normal 50-170 [facility] ([place]) Comment on above: Performed By: #### A LC #### [place] [address] Iron Sat 36 % Normal [facility] ([place]) Comment on above: Performed By: #### A LC #### [place] [address] TIBC 246 mcg/dL Low 250-500 [facility] ([place]) Comment on above: Performed By: #### A LC #### [place] [address] FIBon 12-31-2023 Fibrinogen 309 mg/dL Normal 250-560 [facility] ([place]) Comment on above: Performed By: #### P RO, FERR, CBC, B12, FES, ADIFF, BMP, ANEU, GFR, FOL, FIB ####[place] [address] FOLon 12-31-2023 Folate >48.00 High 5.38-24.00 [facility] ([place]) Comment on above: Performed By: #### A LC #### [place] [address] LABORATORYOrdered By: Ricardo Tirado on 12-31-2023 aPTT Coag (Bld) [Time] 24.0 s Low 25.0 - 35.0 seconds AH [facility] SS Comment on above: Interpretive Data: F or Heparin anticoagulation therapy, the recommended therapeutic range is: 54-77 seconds (APTT Correlation with Anti-Xa therapeutic range of 0.3-0.7 units/ml). PLEASE REFERENCE THE PHARMACY PROTOCOL FOR DOSING. Fibrinogen 309 mg/dL Normal 250 - 560 mg/dL [facility] Heparin dose (APTT) None Normal Coagulation S PT Coag (PPP) [Time] 12.6 s Normal 9.0 - 1 4.2 seconds [facility] Comment on above: Interpretive Data: E ffective 04/19/08, Protime results may be affected by some antibiotics (i.e. Ciprofloxacin, Azithromycin, Bactrim) which may potentiate the action of oral anticoagulants, with further increases in Protime/INR. PT International Ratio 1.1 ratio Invalid Interpretation Code [facility] Comment on above: Interpretive Data: [employer]mo berger [employer] (CHEST, 1991, 102:[id number]) recommended therapeutic range for oral anticoagulant therapy is: LOW RISK: Prophylaxis of venous thrombosis INR: 2.0-3.0 Treatment of pulmonary embolism 2.0-3.0 Prevention of systemic embolism 2.0-3.0 HIGH RISK: Mechanical prosthetic valves 2.5-3.5 LABORATORYOrdered By: SYSTEM SYSTEM on 12-31-2023 Basophils (Bld) [#/Vol] 0.0 103/mcL Normal 0.0 - 0.3 10^3/mcL Workflow SS Basophils/100 WBC (Bld) 0.2 % Normal 0.0 - 2.5 % Workflow SS Calcium [Mass/Vol] 8.6 mg/dL Low 8.7 - 10. 4 mg/dL ADM SS Chloride [Moles/Vol] 107 mmol/L Normal 98 - 11 0 mEq/L ADM SS CO2 [Moles/Vol] 27 mmol/L Normal 22 - 32 mEq/L ADM SS Cobalamin (Vitamin B12) [Mass/Vol] 345 pg/mL Normal 211 - 911 pg/mL ADM SS Creatinine [Mass/Vol] 0.78 mg/dL Normal 0.50 - 1.20 mg/dL ADM SS Electrolyte Balance 7.0 mEq/L Normal 4.0 - 15 .0 mEq/L ADM SS Eosinophils (Bld) [#/Vol] 0.0 103/mcL Normal 0.0 - 0.7 10^3/mcL Workflow SS Eosinophils/100 WBC (Bld) 0.0 % Normal 0.0 - 6.0 % Workflow SS Erythrocyte distribution width (RBC) [Ratio] 13.8 % Normal 11.5 - 15.5 % Workflow SS Ferritin [Mass/Vol] 85.3 ng/mL Normal 8.0 - 252.0 ng/mL ADM SS Folate [Mass/Vol] ng/mL High 5.38 - 24.00 ng/mL ADM SS GFR/1.73 sq M.predicted among blacks MDRD (S/P/Bld) [Vol rate/Area] ml/min/1.73sqm Invalid Interpretation Code Chemistry S Comment on above: Interpretive Data: GFR Population mean for , Non- Americans Ages 20-29 = 116 mL/min/1.73 sq.m. Ages 30-39 = 107 mL/min/1.73 sq.m. Ages 40-49 = 99 mL/min/1.73 sq.m. Ages 50-59 = 93 mL/min/1.73 sq.m. Ages 60-69 = 85 mL/min/1.73 sq.m. Ages 70+ = 75 mL/min/1.73 sq.m. Chronic Kidney Disease: Less than 60 mL/min/1.73 square meters End Stage Renal Disease: Less than 15 mL/min/1.73 square meters GFR/1.73 sq M.predicted among non-blacks MDRD (S/P/Bld) [Vol rate/Area] ml/min/1.73sqm Invalid Interpretation Code Rachio Chemistry S Comment on above: Interpretive Data: GFR Population mean for , Non- Americans Ages 20-29 = 116 mL/min/1.73 sq.m. Ages 30-39 = 107 mL/min/1.73 sq.m. Ages 40-49 = 99 mL/min/1.73 sq.m. Ages 50-59 = 93 mL/min/1.73 sq.m. Ages 60-69 = 85 mL/min/1.73 sq.m. Ages 70+ = 75 mL/min/1.73 sq.m. Chronic Kidney Disease: Less than 60 mL/min/1.73 square meters End Stage Renal Disease: Less than 15 mL/min/1.73 square meters Glucose [Mass/Vol] 142 mg/dL High 82 - 115 mg/dL ADM SS Hematocrit (Bld) [Volume fraction] 31.7 % Low 34.0 - 46.0 % Workflow SS Hemoglobin (Bld) [Mass/Vol] 10.8 G/dL Low 12.0 - 16.0 G/dL Workflow SS Iron [Mass/Vol] 88 ug/dL Normal 50 - 170 mcg/dL ADM SS Iron binding capacity [Mass/Vol] 246 mcg/dL Low 250 - 500 mcg/dL ADM SS Iron saturation [Mass fraction] 36 % Invalid Interpretation Code ADM SS Lymphocytes (Bld) [#/Vol] 0.8 103/mcL Low 0.9 - 4.3 10^3/mcL Workflow SS Lymphocytes/100 WBC (Bld) 10.2 % Low 20.0 - 40.0 % Workflow SS MCH (RBC) [Entitic mass] 30.5 pg Normal 27.0 - 33.0 pg Workflow SS MCHC 34.0 G/dL Normal 32.0 - 36.0 G/dL Workflow SS MCV (RBC) [Entitic vol] 89.8 fL Normal 80.0 - 99.0 fL Workflow SS Monocytes (Bld) [#/Vol] 0.2 103/mcL Normal 0.1 - 1.4 10^3/mcL Workflow SS Monocytes/100 WBC (Bld) 2.6 % Normal 2.0 - 13.0 % Workflow SS Neutrophils (Bld) [#/Vol] 6.7 103/mcL Normal 2.3 - 8.1 10^3/mcL Workflow SS Neutrophils/100 WBC (Bld) 87.0 % High 50.0 - 75.0 % Workflow SS Platelet mean volume (Bld) [Entitic vol] 9.5 fL Normal 6.6 - 10.5 fL Workflow SS Platelets (Bld) [#/Vol] 131 103/mcL Low 150 - 450 10^3/mcL Workflow SS Potassium [Moles/Vol] 4.2 mmol/L Normal 3.5 - 5.0 mEq/L ADM SS RBC (Bld) [#/Vol] 3.53 106/mcL Low 4.10 - 5.30 10^6/mcL Workflow SS Sodium [Moles/Vol] 141 mmol/L Normal 136 - 145 mEq/L ADM SS Urea nitrogen [Mass/Vol] 30.0 mg/dL High 8.0 - 22.0 mg/dL ADM SS Urea nitrogen/Creatinine [Mass ratio] 38.5 ratio High 10.0 - 22.0 ratio AH ADM SS WBC (Bld) [#/Vol] 7.7 103/mcL Normal 4.5 - 10.8 10^3/mcL AH Workflow SS PROon 12-31-2023 INR Coag (PPP) [Relative time] 1.1 {INR} Normal [facility] ([place]) Comment on above: Result Comment: [employer] (CHEST, 1991, 102:[id number]) recommended therapeutic range for oral anticoagulant therapy is: LOW RISK: Prophylaxis of venous thrombosis INR: 2.0-3.0 Treatment of pulmonary embolism 2.0-3.0 Prevention of systemic embolism 2.0-3.0 HIGH RISK: Mechanical prosthetic valves 2.5-3.5 Performed By: #### P RO, FERR, CBC, B12, FES, ADIFF, BMP, ANEU, GFR, FOL, FIB ####[address] [address] PT Coag (PPP) [Time] 12.6 s Normal 9.0-14.2 [facility] ([place]) Comment on above: Result Comment: Effe ctive 04/19/08, Protime results may be affected by some antibiotics (i.e. Ciprofloxacin, Azithromycin, Bactrim) which may potentiate the action of oral anticoagulants, with further increases in Protime/INR. Performed By: #### P RO, FERR, CBC, B12, FES, ADIFF, BMP, ANEU, GFR, FOL, FIB ####[address] [address] [address] SPINE CERVICAL W/O CONTRA STon 12-30-2023 CT SPINE CERVICAL W/O CONTRAST ORIGINAL EXAMINATION: CT OF THE CERVICAL SPINE WITHOUT CONTRAST TECHNIQUE: Axial followed by coronal and sagittal reformatted CT images were obtained without intravenous contrast. DICOM images are available. One or more of the following dose reduction techniques were used: automated exposure control, adjustment of the mA and/or kV according to patient size, or use of iterative reconstruction. COMPARISON: MRI cervical spine 12/28/2023 HISTORY: Stenosis, spinal cord contusion, surgical planning FINDINGS: Alignment: Trace anterolisthesis of C4 on C5 and retrolisthesis of C5 on C6. Vertebrae: No acute/recent fracture or significant chronic height loss. Multilevel endplate degenerative changes most pronounced at the C5-C6 through T1-T2 levels. Discs: Moderate to severe disc height loss involving C3-C4 through T1-T2. C2-C3 : Diffuse posterior disc bulge most pronounced central and to the left of midline without central canal stenosis. Mild bilateral uncovertebral hypertrophy and moderate bilateral facet arthrosis without foraminal stenosis. C3-C4: Small disc osteophyte complex most pronounced centrally without causing central canal stenosis. Bilateral, left greater than right uncovertebral hypertrophy and moderate facet arthrosis results in severe left without right foraminal stenosis. C4-C5 : Diffuse disc osteophyte complex results in an [id number] central canal stenosis. Mild bilateral uncovertebral hypertrophy, severe left and sboc-zc-pusizkln right facet arthrosis causes severe left and mild right foraminal stenosis. C5-C6 : Diffuse osteophytosis most pronounced central and to the right of midline causes severe central canal stenosis. Bilateral uncovertebral hypertrophy and moderate facet arthrosis results in severe right and qcds-fc-nzadqckj left foraminal stenosis. C6-C7: Central and right central disc extrusion with cephalad migration in the central and right central zone (axial image 96 series 2) causes severe central canal stenosis. Mild bilateral uncovertebral spur, moderate right mild left facet arthrosis results in mild right without left foraminal stenosis. C7-T1: Central zone disc protrusion (axial image 105 series 2) causes mild central canal stenosis. Bilateral facet arthrosis and uncovertebral hypertrophy without significant foraminal stenosis. Paraspinal soft tissues: Partially calcified retro dental soft tissue causing bowing of the posterior longitudinal ligament. Diagnostic considerations include pannus, CPPD, and HADD. Visualized neck: Unremarkable. Visualized lung apices: Unremarkable. PARANASAL SINUSES: Air-fluid levels within the right sphenoid and bilateral paranasal sinuses larger on the right side. MASTOID SINUSES: Small effusions of the bilateral dependent mastoid air cells. ADDITIONAL COMMENTS: Advanced degenerative changes of the bilateral sternoclavicular joints. The patient is edentulous. IMPRESSION: 1. 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 2. 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 3. Level by level findings as described. Interpreted by: Bonilla Mackay MD Preliminary Report By: Bonilla Mackay MD Electronically signed By Bonilla Mackay MD Dictated Date: 12/30/2023 1:44:36 PM Prelim Date: 12/30/2023 2:05:45 PM Sign Date: 12/30/2023 2:05:45 PM Ordering Provider: YEYO Crowley [facility] ([place]) .Auto Diffon 12-29-2023 Basophil, Absolute 0.0 10 3/mcL Normal 0.0-0.3 [facility] ([place]) Comment on above: Performed By: #### T JOVON #### [address] [address] Basophils/100 WBC (Bld) 0.0 % Normal 0.0-2.5 [facility] ([place]) Comment on above: Performed By: #### T JOVON #### [address] [address] Eosinophil, Absolute 0.0 10 3/mcL Normal 0.0-0.7 [facility] ([place]) Comment on above: Performed By: #### T JOVON #### [address] [address] Eosinophils/100 WBC (Bld) 0.0 % Normal 0.0-6.0 [facility] ([place]) Comment on above: Performed By: #### T JOVON #### [address] [address] Lymphocyte, Absolute 1.1 10 3/mcL Normal 0.9-4.3 [facility] ([place]) Comment on above: Performed By: #### T JOVON #### [address] [address] Lymphocytes/100 WBC (Bld) 16.4 % Low 20.0-40.0 [facility] ([place]) Comment on above: Performed By: #### T JOVON #### [address] [address] Monocyte, Absolute 0.1 10 3/mcL Normal 0.1-1.4 [facility] ([place]) Comment on above: Performed By: #### T [facility] #### [facility] [address] [place] [address] Monocytes/100 WBC (Bld) 1.3 % Low 2.0-13.0 [facility] ([place]) Comment on above: Performed By: #### T [facility] #### [address] [address] Neutrophils/100 WBC (Bld) 82.3 % High 50.0-75.0 [facility] ([place]) Comment on above: Performed By: #### T [facility] #### [address] [address] .GFRon 12-29-2023 GFR >60 Normal [facility] ([place]) Comment on above: Result Comment: GFR Population mean for , Non- Americans Ages 20-29 = 116 mL/min/1.73 sq.m. Ages 30-39 = 107 mL/min/1.73 sq.m. Ages 40-49 = 99 mL/min/1.73 sq.m. Ages 50-59 = 93 mL/min/1.73 sq.m. Ages 60-69 = 85 mL/min/1.73 sq.m. Ages 70+ = 75 mL/min/1.73 sq.m. Chronic Kidney Disease: Less than 60 mL/min/1.73 square meters End Stage Renal Disease: Less than 15 mL/min/1.73 square meters Performed By: #### A LAURENCE, CBC, ADIFF #### [address] [address] GFR Non- >60 Normal [facility] ([place]) Comment on above: Result Comment: GFR Population mean for , Non- Americans Ages 20-29 = 116 mL/min/1.73 sq.m. Ages 30-39 = 107 mL/min/1.73 sq.m. Ages 40-49 = 99 mL/min/1.73 sq.m. Ages 50-59 = 93 mL/min/1.73 sq.m. Ages 60-69 = 85 mL/min/1.73 sq.m. Ages 70+ = 75 mL/min/1.73 sq.m. Chronic Kidney Disease: Less than 60 mL/min/1.73 square meters End Stage Renal Disease: Less than 15 mL/min/1.73 square meters Performed By: #### A LAURENCE, CBC, ADIFF #### [address] [address] .NEUABSon 12-29-2023 Neutrophil, Absolute 5.6 10 3/mcL Normal 2.3-8.1 [facility] ([place]) Comment on above: Performed By: #### T ROP #### [address] [address] BMPon 12-29-2023 BUN/Creatinine Ratio 28.2 ratio High 10.0-22.0 [facility] ([place]) Comment on above: Performed By: #### A LAURENCE, CBC, ADIFF #### [address] [address] Calcium [Mass/Vol] 8.4 mg/dL Low 8.7-10.4 [facility] ([place]) Comment on above: Performed By: #### A LAURENCE, CBC, ADIFF #### [address] [address] Chloride [Moles/Vol] 108 mmol/L Normal 98-110 [facility] ([place]) Comment on above: Performed By: #### A LAURENCE, CBC, ADIFF #### [address] [address] CO2 [Moles/Vol] 25 mmol/L Normal 22-32 [facility] ([place]) Comment on above: Performed By: #### A LAURENCE, CBC, ADIFF #### [address] [address] Creatinine [Mass/Vol] 0.78 mg/dL Normal 0.50-1.20 [facility] ([place]) Comment on above: Performed By: #### A LAURENCE, CBC, ADIFF #### [address] [address] Electrolyte Balance 6.0 mEq/L Normal 4.0-15.0 [facility] ([place]) Comment on above: Performed By: #### A LAURENCE, CBC, ADIFF #### [address] [address] Glucose [Mass/Vol] 136 mg/dL High 82-115 [facility] ([place]) Comment on above: Performed By: #### A LAURENCE, CBC, ADIFF #### [address] [address] Potassium [Moles/Vol] 4.2 mmol/L Normal 3.5-5.0 [facility] ([place]) Comment on above: Performed By: #### A LAURENCE, CBC, ADIFF #### [place] [id number] Sodium [Moles/Vol] 139 mmol/L Normal 136-145 [facility] ([place]) Comment on above: Performed By: #### A LAURENCE, CBC, ADIFF #### [place] [id number] Urea nitrogen [Mass/Vol] 22.0 mg/dL Normal 8.0-22.0 [facility] ([place]) Comment on above: Performed By: #### A LAURENCE, CBC, ADIFF #### [place] [address] CBCon 12-29-2023 Erythrocyte distribution width (RBC) [Ratio] 14.2 % Normal 11.5-15.5 [facility] ([place]) Comment on above: Performed By: #### T JOVON #### [place] [id number] Hematocrit (Bld) [Volume fraction] 30.3 % Low 34.0-46.0 [facility] ([place]) Comment on above: Performed By: #### T JOVON #### [place] [id number] Hgb 10.5 G/dL Low 12.0-16.0 [facility] ([place]) Comment on above: Performed By: #### T JOVON #### [place] [id number] MCH (RBC) [Entitic mass] 30.6 pg Normal 27.0-33.0 [facility] ([place]) Comment on above: Performed By: #### T JOVON #### [place] [id number] MCHC 34.8 G/dL Normal 32.0-36.0 [facility] ([place]) Comment on above: Performed By: #### T JOVON #### [place] [id number] MCV (RBC) [Entitic vol] 88.0 fL Normal 80.0-99.0 [facility] ([place]) Comment on above: Performed By: #### T JOVON #### [place] [address] Platelet 147 10 3/mcL Low 150-450 [facility] ([place]) Comment on above: Performed By: #### T JOVON #### [place] [address] Platelet mean volume (Bld) [Entitic vol] 9.4 fL Normal 6.6-10.5 [facility] ([place]) Comment on above: Performed By: #### T JOVON #### [place] [address] RBC 3.44 10 6/mcL Low 4.10-5.30 [facility] ([place]) Comment on above: Performed By: #### T JOVON #### [place] [address] WBC 6.8 10 3/mcL Normal 4.5-10.8 [facility] ([place]) Comment on above: Performed By: #### T JOVON #### [place] [address] LABORATORYOrdered By: SYSTEM SYSTEM on 12-29-2023 Calcium [Mass/Vol] 8.4 mg/dL Low 8.7 - 10. 4 mg/dL AH ADM SS Chloride [Moles/Vol] 108 mmol/L Normal 98 - 11 0 mEq/L AH ADM SS CO2 [Moles/Vol] 25 mmol/L Normal 22 - 32 mEq/L AH ADM SS Creatinine [Mass/Vol] 0.78 mg/dL Normal 0.50 - 1.20 mg/dL AH ADM SS Electrolyte Balance 6.0 mEq/L Normal 4.0 - 15 .0 mEq/L AH ADM SS GFR/1.73 sq M.predicted among blacks MDRD (S/P/Bld) [Vol rate/Area] ml/min/1.73sqm Invalid Interpretation Code [facility] Comment on above: Interpretive Data: GFR Population mean for , Non- Americans Ages 20-29 = 116 mL/min/1.73 sq.m. Ages 30-39 = 107 mL/min/1.73 sq.m. Ages 40-49 = 99 mL/min/1.73 sq.m. Ages 50-59 = 93 mL/min/1.73 sq.m. Ages 60-69 = 85 mL/min/1.73 sq.m. Ages 70+ = 75 mL/min/1.73 sq.m. Chronic Kidney Disease: Less than 60 mL/min/1.73 square meters End Stage Renal Disease: Less than 15 mL/min/1.73 square meters GFR/1.73 sq M.predicted among non-blacks MDRD (S/P/Bld) [Vol rate/Area] ml/min/1.73sqm Invalid Interpretation Code [facility] Comment on above: Interpretive Data: GFR Population mean for , Non- Americans Ages 20-29 = 116 mL/min/1.73 sq.m. Ages 30-39 = 107 mL/min/1.73 sq.m. Ages 40-49 = 99 mL/min/1.73 sq.m. Ages 50-59 = 93 mL/min/1.73 sq.m. Ages 60-69 = 85 mL/min/1.73 sq.m. Ages 70+ = 75 mL/min/1.73 sq.m. Chronic Kidney Disease: Less than 60 mL/min/1.73 square meters End Stage Renal Disease: Less than 15 mL/min/1.73 square meters Glucose [Mass/Vol] 136 mg/dL High 82 - 115 mg/dL ADM SS Potassium [Moles/Vol] 4.2 mmol/L Normal 3.5 - 5.0 mEq/L ADM SS Sodium [Moles/Vol] 139 mmol/L Normal 136 - 145 mEq/L ADM SS Urea nitrogen [Mass/Vol] 22.0 mg/dL Normal 8.0 - 22.0 mg/dL ADM SS Urea nitrogen/Creatinine [Mass ratio] 28.2 ratio High 10.0 - 22.0 ratio ADM SS LABORATORYOrdered By: Amaya Shine on 12-29-2023 Cholesterol [Mass/Vol] 155 mg/dL Normal 50 - 199 mg/dL ADM SS Comment on above: Interpretive Data: C holesterol Reference Interval: Less than 200 Desirable 200-239 Borderline high risk 240 and above High risk Cholesterol in HDL [Mass/Vol] 45 mg/dL Normal 40 - 59 mg/dL AH ADM SS Cholesterol in LDL [Mass/Vol] 91 mg/dL Normal 0 - 129 mg/dL ADM SS Triglyceride [Mass/Vol] 95 mg/dL Normal 3 - 149 mg/dL ADM SS LIPIDon 12-29-2023 Cholesterol [Mass/Vol] 155 mg/dL Normal 50-199 [facility] ([place]) Comment on above: Result Comment: Chol esterol Reference Interval: Less than 200 Desirable 200-239 Borderline high risk 240 and above High risk Performed By: #### T JOVON #### [address] [address] Cholesterol in HDL [Mass/Vol] 45 mg/dL Normal 40-59 [facility] ([place]) Comment on above: Performed By: #### T JOVON #### [address] [address] Cholesterol in LDL [Mass/Vol] 91 mg/dL Normal 0-129 [facility] ([place]) Comment on above: Performed By: #### T JOVON #### [address] [address] Triglyceride [Mass/Vol] 95 mg/dL Normal 3-149 [facility] ([place]) Comment on above: Performed By: #### T JOVON #### [address] [address] .Auto Diffon 12-28-2023 Basophil, Absolute 0.0 10 3/mcL Normal 0.0-0.3 [facility] ([place]) Comment on above: Performed By: #### T JOVON #### [address] [address] Basophils/100 WBC (Bld) 0.0 % Normal 0.0-2.5 [facility] ([place]) Comment on above: Performed By: #### T JOVON #### [address] [address] Eosinophil, Absolute 0.0 10 3/mcL Normal 0.0-0.7 [facility] ([place]) Comment on above: Performed By: #### T JOVON #### [address] [address] Eosinophils/100 WBC (Bld) 0.0 % Normal 0.0-6.0 [facility] ([place]) Comment on above: Performed By: #### T JOVON #### [address] [address] Lymphocyte, Absolute 1.0 10 3/mcL Normal 0.9-4.3 [facility] ([place]) Comment on above: Performed By: #### T JOVON #### [address] [address] Lymphocytes/100 WBC (Bld) 15.7 % Low 20.0-40.0 [facility] ([place]) Comment on above: Performed By: #### T JOVON #### [address] [address] Monocyte, Absolute 0.1 10 3/mcL Normal 0.1-1.4 [facility] ([place]) Comment on above: Performed By: #### T JOVON #### [address] [address] Monocytes/100 WBC (Bld) 0.9 % Low 2.0-13.0 [facility] ([place]) Comment on above: Performed By: #### T JOVON #### [address] [address] Neutrophils/100 WBC (Bld) 83.4 % High 50.0-75.0 [facility] ([place]) Comment on above: Performed By: #### T JOVON #### [address] [address] .GFRon 12-28-2023 GFR Non- >60 Normal [facility] ([place]) Comment on above: Result Comment: GFR Population mean for , Non- Americans Ages 20-29 = 116 mL/min/1.73 sq.m. Ages 30-39 = 107 mL/min/1.73 sq.m. Ages 40-49 = 99 mL/min/1.73 sq.m. Ages 50-59 = 93 mL/min/1.73 sq.m. Ages 60-69 = 85 mL/min/1.73 sq.m. Ages 70+ = 75 mL/min/1.73 sq.m. Chronic Kidney Disease: Less than 60 mL/min/1.73 square meters End Stage Renal Disease: Less than 15 mL/min/1.73 square meters Performed By: #### T JOVON #### [address] [address] GFR >60 Normal [facility] ([place]) Comment on above: Result Comment: GFR Population mean for , Non- Americans Ages 20-29 = 116 mL/min/1.73 sq.m. Ages 30-39 = 107 mL/min/1.73 sq.m. Ages 40-49 = 99 mL/min/1.73 sq.m. Ages 50-59 = 93 mL/min/1.73 sq.m. Ages 60-69 = 85 mL/min/1.73 sq.m. Ages 70+ = 75 mL/min/1.73 sq.m. Chronic Kidney Disease: Less than 60 mL/min/1.73 square meters End Stage Renal Disease: Less than 15 mL/min/1.73 square meters Performed By: #### T JOVON #### [address] [address] .NEUABSon 12-28-2023 Neutrophil, Absolute 5.1 10 3/mcL Normal 2.3-8.1 [facility] ([place]) Comment on above: Performed By: #### T JOVON #### [address] [address] Anthony 12-28-2023 Ethanol Level <10.0 Normal [facility] ([place]) Comment on above: Performed By: #### A MATEO #### [address] [address] CBCon 12-28-2023 Erythrocyte distribution width (RBC) [Ratio] 14.0 % Normal 11.5-15.5 [facility] ([place]) Comment on above: Performed By: #### T JOVON #### [place] [address] Hematocrit (Bld) [Volume fraction] 30.9 % Low 34.0-46.0 [facility] ([place]) Comment on above: Performed By: #### T JOVON #### [place] [address] Hgb 10.7 G/dL Low 12.0-16.0 [facility] ([place]) Comment on above: Performed By: #### T JOVON #### [place] [address] MCH (RBC) [Entitic mass] 30.3 pg Normal 27.0-33.0 [facility] ([place]) Comment on above: Performed By: #### T JOVON #### [place] [address] MCHC 34.7 G/dL Normal 32.0-36.0 [facility] ([place]) Comment on above: Performed By: #### T JOVON #### [place] [id number] MCV (RBC) [Entitic vol] 87.4 fL Normal 80.0-99.0 [facility] ([place]) Comment on above: Performed By: #### T JOVON #### [place] [address] Platelet 153 10 3/mcL Normal 150-450 [facility] ([place]) Comment on above: Performed By: #### T JOVON #### [place] [address] Platelet mean volume (Bld) [Entitic vol] 9.0 fL Normal 6.6-10.5 [facility] ([place]) Comment on above: Performed By: #### T JOVON #### [place] [id number] RBC 3.53 10 6/mcL Low 4.10-5.30 [facility] ([place]) Comment on above: Performed By: #### T JOVON #### [place] [id number] WBC 6.1 10 3/mcL Normal 4.5-10.8 [facility] ([place]) Comment on above: Performed By: #### T JOVON #### [place] [id number] CMPon 12-28-2023 Albumin Level 2.9 G/dL Low 3.2-4.8 [facility] ([place]) Comment on above: Performed By: #### T JOVON #### [place] [address] Albumin/Globulin [Mass ratio] 0.9 {ratio} Normal 0.9-1.6 [facility] ([place]) Comment on above: Performed By: #### T JOVON #### [place] [address] ALP [Catalytic activity/Vol] 68 U/L Normal 38-126 [facility] ([place]) Comment on above: Performed By: #### T JOVON #### [place] [address] ALT [Catalytic activity/Vol] 13 U/L Normal 10-49 [facility] ([place]) Comment on above: Performed By: #### T JOVON #### [place] [id number] AST [Catalytic activity/Vol] 21 U/L Normal 8-34 [facility] ([place]) Comment on above: Performed By: #### T JOVON #### [place] [address] Bili Total 0.40 mg/dL Normal 0.20-1.20 [facility] ([place]) Comment on above: Result Comment: Use of this assay is not recommended for patients undergoing treatment with eltrombopag due to the potential for falsely elevated results. Performed By: #### T JOVON #### [place] [id number] BUN/Creatinine Ratio 24.7 ratio High 10.0-22.0 [facility] ([place]) Comment on above: Performed By: #### T JOVON #### [place] [id number] Calcium [Mass/Vol] 8.5 mg/dL Low 8.7-10.4 [facility] ([place]) Comment on above: Performed By: #### T JOVON #### [address] [address] Chloride [Moles/Vol] 107 mmol/L Normal 98-110 [facility] ([place]) Comment on above: Performed By: #### T JOVON #### [address] [address] CO2 [Moles/Vol] 25 mmol/L Normal 22-32 [facility] ([place]) Comment on above: Performed By: #### T JOVON #### [place] [id number] Creatinine [Mass/Vol] 0.77 mg/dL Normal 0.50-1.20 [facility] ([place]) Comment on above: Performed By: #### T JOVON #### [place] [id number] Electrolyte Balance 7.0 mEq/L Normal 4.0-15.0 [facility] ([place]) Comment on above: Performed By: #### T JOVON #### [place] [id number] Globulin 3.2 G/dL Normal 1.5-3.8 [facility] ([place]) Comment on above: Performed By: #### T JOVON #### [address] [address] Glucose [Mass/Vol] 144 mg/dL High 82-115 [facility] ([place]) Comment on above: Performed By: #### T JOVON #### [address] [address] Potassium [Moles/Vol] 4.0 mmol/L Normal 3.5-5.0 [facility] ([place]) Comment on above: Performed By: #### T JOVON #### [address] [address] Sodium [Moles/Vol] 139 mmol/L Normal 136-145 [facility] ([place]) Comment on above: Performed By: #### T JOVON #### [facility] [address] [place] [id number] Total Protein 6.1 G/dL Normal 5.7-8.2 [facility] ([place]) Comment on above: Result Comment: No te - New Reference Range in effect 20 Performed By: #### T JOVON #### [address] [address] Urea nitrogen [Mass/Vol] 19.0 mg/dL Normal 8.0-22.0 [facility] ([place]) Comment on above: Performed By: #### T JOVON #### [address] [address] [address] SPINE LUMBAR W/O CONTRAST on 12-28-2023 CT SPINE LUMBAR W/O CONTRAST ORIGINAL EXAMINATION: CT OF THE LUMBAR SPINE WITHOUT CONTRAST 12/28/2023 TECHNIQUE: CT of the lumbar spine was performed without the administration of intravenous contrast. Multiplanar reformatted images are provided for review. Adjustment of mA and/or kV according to patient size was utilized. Automated exposure control, iterative reconstruction, and/or weight based adjustment of the mA/kV was utilized to reduce the radiation dose to as low as reasonably achievable. COMPARISON: None HISTORY: ORDERING SYSTEM PROVIDED HISTORY: Reason for Exam: pain; trauma patient FINDINGS: Moderate degenerative changes are noted throughout the spine, no acute fracture is identified. Vertebral body heights are maintained. Sacroiliac joints are maintained. There is severe disc space loss at L4-L5 and L5-S1 with more moderate disc space loss at the remaining levels. Multilevel facet arthropathy is present which is most severe at the L4-L5 and L5-S1. There is also small disc protrusions at L3-L4 and L5-S1 with at least mild canal stenosis at L3-L4 and moderate canal stenosis at L5-S1. SOFT TISSUES/RETROPERITONEUM: No paraspinal mass is seen. IMPRESSION: Multilevel degenerative changes is as detailed above. No acute traumatic injury identified. Interpreted by: Lan Ortiz MD Preliminary Report By: Lan Ortiz MD Electronically signed By Lan Ortiz MD Dictated Date: 12/28/2023 3:36:49 AM Prelim Date: 12/28/2023 3:39:52 AM Sign Date: 12/28/2023 3:39:52 AM Ordering Provider: SHAUNA DANIEL [facility]) CT THORAX W/O CONTRASTon CT THORAX W/O CONTRAST ORIGINAL EXAMINATION: CT OF THE CHEST WITHOUT CONTRAST 12/28/2023 2:47 am TECHNIQUE: CT of the chest was performed without the administration of intravenous contrast. Multiplanar reformatted images are provided for review. Automated exposure control, iterative reconstruction, and/or weight based adjustment of the mA/kV was utilized to reduce the radiation dose to as low as reasonably achievable. COMPARISON: None. HISTORY: ORDERING SYSTEM PROVIDED HISTORY: Reason for Exam: pain; trauma patient FINDINGS: Scattered reticular markings peripherally, suggestive of scarring and or fibrosis. No focal consolidation, effusion, or pneumothorax. Heart size is normal. No pericardial thickening or effusion. Aorta is normal in caliber.. Mild traction bronchiectasis at the lung bases. No acute fracture identified. IMPRESSION: Mild peripheral reticular scarring and or fibrosis with minimal bronchiectasis at the lung bases. Findings could be seen in the setting of chronic interstitial lung disease. No acute traumatic injury identified. Interpreted by: Lan Ortiz MD Preliminary Report By: Lan Ortiz MD Electronically signed By Lan Ortiz MD Dictated Date: 12/28/2023 3:14:58 AM Prelim Date: 12/28/2023 3:24:06 AM Sign Date: 12/28/2023 3:24:06 AM Ordering Provider: SHAUNA DANIEL [facility]) LABORATORYOrdered By: SYSTEM SYSTEM on 12-28-2023 Albumin BCP dye [Mass/Vol] 2.9 G/dL Low 3.2 - 4.8 G/dL ADM SS Albumin/Globulin [Mass ratio] 0.9 {ratio} Normal 0.9 - 1.6 ratio AH ADM SS ALP [Catalytic activity/Vol] 68 U/L Normal 38 - 126 U/L AH ADM SS ALT No additional P-5'-P [Catalytic activity/Vol] 13 U/L Normal 10 - 49 U/L AH ADM SS AST [Catalytic activity/Vol] 21 U/L Normal 8 - 34 U/L AH ADM SS Bilirubin [Mass/Vol] 0.40 mg/dL Normal 0.20 - 1.20 mg/dL AH ADM SS Comment on above: Interpretive Data: U se of this assay is not recommended for patients undergoing treatment with eltrombopag due to the potential for falsely elevated results. Globulin 3.2 G/dL Normal 1.5 - 3.8 G/dL [facility] Protein [Mass/Vol] 6.1 G/dL Normal 5.7 - 8.2 G/dL [facility] Comment on above: Interpretive Data: * *Note - New Reference Range in effect 20 Troponin I.cardiac DL <= 0.01 ng/mL [Mass/Vol] 4 ng/L Normal 0 - 34 ng/L [facility] Comment on above: Interpretive Data: High Sensitive Troponin I Reference Ranges: Female: 0-34 ng/L Male: 0-54 ng/L Testing performed on Knowta analyzer using direct chemiluminescent technology. Ethanol [Mass/Vol] mg/dL Invalid Interpretation Code [facility] LABORATORYOrdered By: Brigette Baca on 12-28-2023 PT Coag (PPP) [Time] 15.3 s High 9.0 - 1 4.2 seconds [facility] Comment on above: Interpretive Data: E ffective 04/19/08, Protime results may be affected by some antibiotics (i.e. Ciprofloxacin, Azithromycin, Bactrim) which may potentiate the action of oral anticoagulants, with further increases in Protime/INR. PT International Ratio 1.3 ratio Invalid Interpretation Code [facility] Comment on above: Interpretive Data: [employer] (CHEST, 1991, [id number]) recommended therapeutic range for oral anticoagulant therapy is: LOW RISK: Prophylaxis of venous thrombosis INR: 2.0-3.0 Treatment of pulmonary embolism 2.0-3.0 Prevention of systemic embolism 2.0-3.0 HIGH RISK: Mechanical prosthetic valves 2.5-3.5 MRI SPINE CERVICAL W/O CONTR Ligia 12-28-2023 MRI SPINE CERVICAL W/O CONTRAST ORIGINAL EXAMINATION: MRI OF THE CERVICAL SPINE WITHOUT CONTRAST 12/28/2023 6:55 am TECHNIQUE: Multiplanar multisequence MRI of the cervical spine was performed without the administration of intravenous contrast. COMPARISON: CT cervical spine from outside facility 12/27/2023 HISTORY: ORDERING SYSTEM PROVIDED HISTORY: Reason for Exam: Right lower extremity sensory changes and weakness FINDINGS: No significant anterolisthesis or retrolisthesis. Vertebral body heights are maintained. Diffuse disc desiccation and disc height loss throughout the cervical spine. No suspicious marrow signal abnormality. Mild edema in C5 and C6 is favored degenerative. There is increased cord signal at the C6 level. There is prevertebral edema extending from the superior endplate of C4 through the inferior endplate of T3. C2-C3: Generalized disc bulge and right uncovertebral hypertrophy. Right greater than left facet arthropathy. Posterior ligament hypertrophy. Mild canal stenosis. Mild bilateral neural foraminal stenosis. C3-C4: Generalized disc bulge, facet arthropathy, uncovertebral hypertrophy, right greater than left. Ligamentum flavum hypertrophy. Mild canal stenosis. Mild right and moderate left neural foraminal stenosis. C4-C5: Disc osteophyte complex with uncovertebral hypertrophy and left greater than right facet arthropathy. Posterior ligament hypertrophy. Mild to moderate canal stenosis. Mild right and severe left neural foraminal stenosis. C5-C6: Disc osteophyte complex with uncovertebral hypertrophy and mild facet arthropathy. Posterior ligament hypertrophy. Severe canal stenosis with cord deformity. Moderate bilateral neural foraminal stenosis. C6-C7: Disc osteophyte complex with uncovertebral hypertrophy, mild facet arthropathy, and posterior ligament hypertrophy. Superimposed superiorly migrated central extrusion. Moderate to severe canal stenosis. Flattening of the cord with increased cord signal. Mild bilateral neural foraminal stenosis. C7-T1: Disc osteophyte complex with a superimposed posterior protrusion. Facet arthropathy. Ligamentum flavum hypertrophy. Mild canal stenosis. No right neural foraminal stenosis. Flattening of the anterior cord. Mild left neural foraminal stenosis. IMPRESSION: 1. 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 2. Increased cord signal at the C6 level is likely due to acute cord contusion given history of trauma. 3. Prevertebral edema from C4 through T3. This is nonspecific and may be reactive. 4. Varying degrees of neural foraminal stenosis as above, severe on the left at C4-C5. Interpreted by: Aury Zamarripa MD Preliminary Report By: Aury Zamarripa MD Electronically signed By Aury Zamarripa MD Dictated Date: 12/28/2023 8:12:09 AM Prelim Date: 12/28/2023 8:29:43 AM Sign Date: 12/28/2023 8:29:43 AM Ordering Provider: SHAUNA Crowley [facility] ([place]) MRI SPINE LUMBAR W/O NADINE Ton 12-28-2023 MRI SPINE LUMBAR W/O CONTRAST ORIGINAL EXAMINATION: MRI OF THE LUMBAR SPINE WITHOUT CONTRAST, 12/28/2023 7:15 am TECHNIQUE: Multiplanar multisequence MRI of the lumbar spine was performed without the administration of intravenous contrast. COMPARISON: CT lumbar spine same date HISTORY: ORDERING SYSTEM PROVIDED HISTORY: Reason for Exam: Right lower extremity sensory changes and weakness FINDINGS: For the purposes of this dictation, there are 5 lumbar type vertebral bodies with the most caudal fully segmented body denoted as L5. No significant anterolisthesis or retrolisthesis. There is depression of the superior endplate of L4 on the left without marrow edema to indicate acuity. Otherwise, vertebral body heights are maintained. There is diffuse disc desiccation and disc height loss throughout the lumbar spine. There is fluid signal in the disc at L2-3 and L4-5. Surrounding marrow edema at L2-3 could be degenerative. An infectious etiology is within the differential but considered less likely. Minimal fluid is also present in the L3-4 disc. Type 2 Modic change at L5-S1. The conus terminates at a normal level and the nerve roots of the cauda equina appear unremarkable. There is mild edema in the right psoas muscle adjacent to the fluid and edema involving L2-3. L1-L2: Generalized disc bulge and facet arthropathy with mild canal stenosis. Mild left and right neural foraminal stenosis. L2-L3: There is a right subarticular inferiorly migrated extrusion moderately narrowing the right lateral recess superimposed upon a generalized disc bulge. Facet arthropathy. Mild canal stenosis. Mild left and right neural foraminal stenosis. L3-L4: Generalized disc bulge, facet arthropathy, and ligamentum flavum hypertrophy with mild canal stenosis. Mild bilateral lateral recess stenosis. Minimal left and [id number] right neural foraminal stenosis. L4-L5: Generalized disc bulge, facet arthropathy, and ligamentum flavum hypertrophy with mild canal stenosis. Mild bilateral lateral recess stenosis. Minimal left and mild right neural foraminal stenosis. Disc/osteophyte contacts the exited right L4 nerve root in the lateral recess. L5-S1: Generalized disc bulge with a superimposed posterior protrusion. Facet arthropathy and ligamentum flavum hypertrophy. Mild canal stenosis. Mild left and moderate right neural lateral recess stenosis. Mild left and right neural foraminal stenosis. Disc/osteophyte contacts the exited left L5 nerve root in the extraforaminal zone. IMPRESSION: 1. Right subarticular inferiorly migrated extrusion at L2-L3 moderately narrows the right lateral recess. 2. Fluid signal in the L2-L3 disc with surrounding marrow edema and adjacent edema in the right psoas muscle and surrounding soft tissues. Findings are favored to be degenerative or reactive in nature, however an infectious etiology is within the differential but considered less likely. 3. Multilevel degenerative changes as described above. Interpreted by: Aury Zamarripa MD Preliminary Report By: Aury Zamarripa MD Electronically signed By Aury Zamarripa MD Dictated Date: 12/28/2023 7:46:17 AM Prelim Date: 12/28/2023 8:02:11 AM Sign Date: 12/28/2023 8:02:11 AM Ordering Provider: SHAUNA Crowley [facility] ([place]) MRI SPINE THORACIC W/O CONTR Ligia 12-28-2023 MRI SPINE THORACIC W/O CONTRAST ORIGINAL EXAMINATION: MRI OF THE THORACIC SPINE WITHOUT CONTRAST 12/28/2023 7:00 am TECHNIQUE: Multiplanar multisequence MRI of the thoracic spine was performed without the administration of intravenous contrast. COMPARISON: CT chest same date HISTORY: ORDERING SYSTEM PROVIDED HISTORY: Reason for Exam: Right lower extremity sensory changes and weakness FINDINGS: No significant anterolisthesis or retrolisthesis. Vertebral body heights are maintained. Diffuse disc desiccation and mild disc height loss throughout the thoracic spine. Mild dextrocurvature. No suspicious marrow signal abnormality. The thoracic cord is normal in signal intensity. The paraspinal soft tissues are grossly nonacute. Evaluation of the individual levels demonstrate the following: T1-T2: Generalized disc bulge with mild flattening of the anterior cord and minimal canal stenosis. T2-3: Generalized disc bulge with a superimposed posterior protrusion indenting the anterior cord with only minimal canal stenosis. Posterior ligament hypertrophy. T4-5: Tiny generalized disc bulge. T4-5 through T9-10: Small generalized disc bulges. Right posterior protrusion at T5-6 mildly flattens the anterior cord. Posterior protrusion at T7-8 mildly flattens the cord. At most mild canal stenosis. T10-T11 through T12-L1: Facet arthropathy with at most mild canal stenosis. There is no significant foraminal stenosis at any thoracic level. Fluid in the L2-3 disc space with surrounding edema and adjacent soft tissue edema. Findings could be degenerative or reactive/posttraumatic. There is mild edema in the prevertebral space extending from the cervical spine through T3. IMPRESSION: 1. Fluid in the L2-3 disc space with surrounding edema and adjacent soft tissue edema. Findings could be degenerative or reactive/posttraumatic. 2. There is mild edema in the prevertebral space extending from the cervical spine through T3. 3. Multilevel degenerative changes as above. Interpreted by: Aury Zamarripa MD Preliminary Report By: Aury Zamarripa MD Electronically signed By Aury Zamarripa MD Dictated Date: 12/28/2023 8:02:26 AM Prelim Date: 12/28/2023 8:11:55 AM Sign Date: 12/28/2023 8:11:55 AM Ordering Provider: SHAUNA Crowley [facility] ([place]) PROon 12-28-2023 INR Coag (PPP) [Relative time] 1.3 {INR} Normal [facility] ([place]) Comment on above: Result Comment: [employer] (CHEST, 1992, [id number]) recommended therapeutic range for oral anticoagulant therapy is: LOW RISK: Prophylaxis of venous thrombosis INR: 2.0-3.0 Treatment of pulmonary embolism 2.0-3.0 Prevention of systemic embolism 2.0-3.0 HIGH RISK: Mechanical prosthetic valves 2.5-3.5 Performed By: #### T JOVON #### [address] [address] PT Coag (PPP) [Time] 15.3 s High 9.0-14.2 [facility] ([place]) Comment on above: Result Comment: Effe ctive 04/19/08, Protime results may be affected by some antibiotics (i.e. Ciprofloxacin, Azithromycin, Bactrim) which may potentiate the action of oral anticoagulants, with further increases in Protime/INR. Performed By: #### T JOVON #### [address] [address] TROPHSon 12-28-2023 High Sensitivity Troponin I 4 ng/L Normal 0-34 [facility] Comment on above: Result Comment: High Sensitive Troponin I Reference Ranges: Female: 0-34 ng/L Male: 0-54 ng/L Testing performed on Knowta analyzer using direct chemiluminescent technology. Performed By: #### T [facility] #### [place] [id number] XR ELBOW MINIMUM 3 VIEWS LEF Ton 12-28-2023 XR ELBOW MINIMUM 3 VIEWS LEFT ORIGINAL EXAMINATION: THREE XRAY VIEWS OF THE LEFT ELBOW 12/28/2023 10:44 am COMPARISON: None. HISTORY: ORDERING SYSTEM PROVIDED HISTORY: Reason for Exam: fall FINDINGS: Three views of the left elbow were obtained. There is no radiographic evidence of joint effusion. The underlying osseous structures appear well mineralized and demonstrate no evidence of fracture or dislocation. No significant soft tissue swelling is seen. No radiopaque foreign body is seen. IMPRESSION: Normal examination of the left elbow. Interpreted by: Neetu Billingsley MD Preliminary Report By: Neetu Billingsley MD Electronically signed By Neetu Billingsley MD Dictated Date: 12/28/2023 11:05:53 AM Prelim Date: 12/28/2023 11:07:15 AM Sign Date: 12/28/2023 11:07:15 AM Ordering Provider: DANIKA MAURO [facility] ([place]) XR FOREARM 2 VIEWS RIGHTon 0 12-28-2023 XR FOREARM 2 VIEWS RIGHT ORIGINAL EXAMINATION: TWO XRAY VIEWS OF THE RIGHT FOREARM 12/28/2023 10:42 am COMPARISON: Hand x-rays of the same date.. HISTORY: ORDERING SYSTEM PROVIDED HISTORY: Reason for Exam: fall FINDINGS: No acute fracture or dislocation is seen of the right forearm. Chronic deformities of the distal radius and ulna are seen as described on same day x-rays of the hand. The distal ulnar diaphysis demonstrates a nondisplaced cortical irregularity not seen on hand x-ray which may represent chronic or acute injury. Visualized aspects of the elbow are intact. IMPRESSION: Cortical irregularity of the distal ulna not seen on same day hand x-ray is questionably chronic versus acute in nature. This is nondisplaced. Correlate with point tenderness. Interpreted by: Neetu Billingsley MD Preliminary Report By: Neetu Billingsley MD Electronically signed By Neetu Billingsley MD Dictated Date: 12/28/2023 11:04:06 AM Prelim Date: 12/28/2023 11:05:42 AM Sign Date: 12/28/2023 11:05:42 AM Ordering Provider: DANIKA MAURO [facility] ([place]) [facility] HAND AND WRIST 6 VIEWS LEFT ORIGINAL EXAMINATION: 6 XRAY VIEWS OF THE LEFT HAND AND WRIST 12/28/2023 10:48 am COMPARISON: None. HISTORY: ORDERING SYSTEM PROVIDED HISTORY: Reason for Exam: fall FINDINGS: Radiographs of the left hand and wrist demonstrate no acute fracture or dislocation. There is joint space loss and osteophyte formation of the DIP joint of the 1st digit. The carpal bones demonstrate an increased scapholunate angle of 68 degrees concerning for possible DISI injury. IMPRESSION: No acute fracture or dislocation. Possible DISI injury of the wrist. If clinical symptoms persist consider MRI to evaluate for ligamentous injury. Interpreted by: Neetu Billingsley MD Preliminary Report By: Neetu Billingsley MD Electronically signed By Neetu Billingsley MD Dictated Date: 12/28/2023 11:07:26 AM Prelim Date: 12/28/2023 11:09:33 AM Sign Date: 12/28/2023 11:09:33 AM Ordering Provider: DANIKA MAURO [facility]) XR HAND MINIMUM 3 VIEWS [facility] 12-28-2023 XR HAND MINIMUM 3 VIEWS RIGHT ORIGINAL EXAMINATION: THREE XRAY VIEWS OF THE RIGHT HAND 12/28/2023 10:40 am COMPARISON: None. HISTORY: ORDERING SYSTEM PROVIDED HISTORY: Reason for Exam: fall FINDINGS: There is decreased radiographic bone mineral density. No visualized acute fracture or dislocation is seen. There are chronic healed deformities of the distal radius and ulna indicative of prior healed fracture. Well corticated and healed prior ulnar styloid avulsion injury is seen. Multifocal DIP joint space loss and osteophyte formation is seen. No significant soft tissue swelling is seen. No radiopaque foreign body. IMPRESSION: No acute fracture or dislocation. Chronic healed deformities of the distal radius and ulna. Degenerative changes as above. Interpreted by: Neetu Billingsley MD Preliminary Report By: Neetu Billingsley MD Electronically signed By Neetu Billingsley MD Dictated Date: 12/28/2023 10:54:09 AM Prelim Date: 12/28/2023 10:59:57 AM Sign Date: 12/28/2023 10:59:57 AM Ordering Provider: DANIKA MAURO [facility] ([place]) XR KNEE 1 OR 2 VIEWS RIGHTon 12-28-2023 XR KNEE 1 OR 2 VIEWS RIGHT ORIGINAL EXAMINATION: TWO XRAY VIEWS OF THE RIGHT KNEE 12/28/2023 2:37 pm COMPARISON: None. HISTORY: ORDERING SYSTEM PROVIDED HISTORY: Reason for Exam: pain FINDINGS: A knee prosthesis is identified. The components appear well seated and intact. No acute fracture or dislocation is identified. Chronic appearing changes of the patella. Vascular calcifications in the soft tissues. IMPRESSION: No acute osseous abnormality. Interpreted by: Aury Zamarripa MD Preliminary Report By: Aury Zamarripa MD Electronically signed By Aury Zamarripa MD Dictated Date: 12/28/2023 2:58:57 PM Prelim Date: 12/28/2023 2:59:57 PM Sign Date: 12/28/2023 2:59:57 PM Ordering Provider: STAS ENGEL [facility] ([place]) ALCOHOL-BLOOD MEDICALon 12-05 Ethanol [Mass/Vol] mg/dL Normal 0 - 50 [facility] Comment on above: Performed By: #### 2 [id number] ####[facility],[address] [place] [id number] CBC + DIFFon 12-27-2023 Baso # 0.01 [id number] Normal 0.00 - 0.10 [facility] Comment on above: Performed By: #### 2 90390 ####[address] [address] Basophils/100 WBC (Bld) 0.2 % Normal 0.0 - 2.0 [facility] Comment on above: Performed By: #### 2 57907 ####[facility],[address] [place] [address]261 CBC + DIFF Normal [facility] Comment on above: Result Comment: CBC- COMPLETE BLOOD COUNT Performed By: #### 2 78468 ####[facility],[address] [place] [address] EO # 0.24 x10EE3/UL Normal 0.00 - 0.50 [facility] Comment on above: Performed By: #### 2 69736 ####[facility],[address] [place], [place] [id number] Eosinophils/100 WBC (Bld) 3.7 % Normal 0.0 - 7.0 [facility] Comment on above: Performed By: #### 2 07695 ####[facility],[address] [place] [address] Erythrocyte distribution width (RBC) [Ratio] 13.8 % Normal 12.0 - 15.6 [facility] Comment on above: Performed By: #### 2 68092 ####[facility],[address] [place], [place] [id number] Hematocrit (Bld) [Volume fraction] 35.7 % Normal 34.0 - 46.0 [facility] Comment on above: Performed By: #### 2 80753 ####[facility],[address] [place], [place] [address] Hemoglobin (Bld) [Mass/Vol] 12.0 g/dL Normal 12.0 - 16.0 [facility] Comment on above: Performed By: #### 2 55105 ####[facility],[address] [place] [address]75 Lymph # 2.17 x10EE3/UL Normal 0.80 - 2.80 [facility] Comment on above: Performed By: #### 2 80348 ####[facility],[address] [place] [address]75 Lymphocytes/100 WBC (Bld) 33.0 % Normal 20.0 - 45.0 [facility] Comment on above: Performed By: #### 2 53518 ####[facility],[address] [place] [address] MANUAL DIFF N/A Normal [facility] Comment on above: Performed By: #### 2 13580 ####[facility],[address] [place] [address] MCH (RBC) [Entitic mass] 29 pg Normal 27 - 33 [facility] Comment on above: Performed By: #### 2 39433 ####[facility],[address] [place] [address] MCHC 34 X10 3 Normal 32 - 36 [facility] Comment on above: Performed By: #### 2 00251 ####[facility],[address] [place] [address] MCV (RBC) [Entitic vol] 85 fL Normal 80 - 99 [facility] Comment on above: Performed By: #### 2 08585 ####[facility],[address] [place] [address] [place] # 0.52 x10EE3/UL Normal 0.20 - 1.00 [facility] Comment on above: Performed By: #### 2 62407 ####[facility],[address] [place] [address] MONOS % 7.9 % Normal 0.0 - 10.0 [facility] Comment on above: Performed By: #### 2 32159 ####[facility],[address] [place] [address] Morphology Jvaier (Bld) [Interp] N/A Normal [facility] Comment on above: Performed By: #### 2 79414 ####[facility],[address] [place] [address] Neut # 3.63 x10EE3/UL Normal 1.50 - 7.10 [facility] Comment on above: Performed By: #### 2 06223 ####[facility],[address],[place] [address] Neutrophils/100 WBC (Bld) 55.2 % Normal 46.0 - 76.0 [facility] Comment on above: Performed By: #### 2 67885 ####[facility],[address] [place] [address]83 PLATELET 163 x10EE3/UL Normal 150 - 450 [facility] Comment on above: Performed By: #### 2 01695 ####[facility],[address] [place] [address]52 Platelet mean volume (Bld) [Entitic vol] 8.9 fL Normal 6.6 - 10.5 [facility] Comment on above: Result Comment: AUTO MATED DIFFERENTIAL Performed By: #### 2 25975 ####[facility],[address] [place] [address] 42171 RBC 4.18 x 10EE6/UL Normal 4.10 - 5.30 [facility] Comment on above: Performed By: #### 2 11841 ####[facility],[address] [place] [address] 01671 WBC 6.6 x 10EE3/UL Normal 4.5 - 10.8 [facility] Comment on above: Performed By: #### 2 65173 ####[facility],[address] [place] [address] 21261 CHEST 1 VIEWon 12-27-2023 CHEST 1 VIEW [place] [address] Patient: KIESHA COLVIN Phone#: : 1940 Age: 83 Gender: F Pt. Type: ER Account: [id number] Location: [facility] Ordering: DR. SANDEEP BARAJAS Exam Date: 12/27/2023/22:31 Family Phys: TALAMYSAS Charge Code: [id number] Physician: Uintah Order #: [id number] Dose#: PROCEDURE: X-RAY CHEST 1 VIEW COMPARISON: [facility], XR, CHEST PA/LAT, 03/23/2012, 7:16. INDICATIONS: Trauma. FINDINGS: LUNGS: Chronic interstitial changes are present. VASCULATURE: Pulmonary vasculature is mildly prominent. CARDIAC: Mild cardiomegaly. MEDIASTINUM: Normal. No visible mass or adenopathy. PLEURA: Normal. No effusion or pleural thickening. BONES: Degenerative changes of the spine are present. OTHER: Negative. CONCLUSION: 1. Prominent pulmonary vasculature. There is no evidence of acute abnormality. Dictated by: Thania Caballero MD on 12/29/2023 at 0:20 Approved by: Thania Caballero MD on 12/29/2023 at 0:27 Normal [facility] CMP with eGFRon 12-27-2023 AGE 83 years Normal [facility] Comment on above: Performed By: #### 2 87534 #### [facility],[address] [place] [address] 46450 Albumin [Mass/Vol] 3.2 g/dL Low 3.4 - 5.0 [facility] Comment on above: Performed By: #### 2 11561 #### [facility],[address] [place] [address] 97442 Albumin/Globulin [Mass ratio] 0.8 {ratio} Low 0.9 - 1.6 [facility] Comment on above: Performed By: #### 2 40632 #### [facility],[address] [place] [address]645 ALK PHOS 76 U/L Normal 46 - 116 [facility] Comment on above: Performed By: #### 2 43039 #### [facility],[address] [place] [address] 12994 ALT [Catalytic activity/Vol] 21 U/L Normal 16 - 63 [facility] Comment on above: Performed By: #### 2 81173 #### [facility],[address] [place] [address] 53420 Anion gap [Moles/Vol] 13 mmol/L Normal 10 - 20 [facility] Comment on above: Performed By: #### 2 64272 #### [facility],[address] [place] [address] 00092 AST [Catalytic activity/Vol] 15 U/L Normal 13 - 39 [facility] Comment on above: Performed By: #### 2 63160 #### [facility],[address] [place] [address] 07707 B/C RATIO 19 ratio Normal 0 - 30 [facility] Comment on above: Performed By: #### 2 71274 #### [facility],[address] [place] [address]374 Bilirubin [Mass/Vol] 0.4 mg/dL Normal 0.2 - 1.0 [facility] Comment on above: Performed By: #### 2 14850 #### [facility],[address] [place] [address] 94246 Calcium [Mass/Vol] 8.6 mg/dL Normal 8.5 - 10.1 [facility] Comment on above: Performed By: #### 2 24317 #### [facility],[address] [place] [address] 29886 Chloride [Moles/Vol] 102 mmol/L Normal 98 - 107 [facility] Comment on above: Performed By: #### 2 72684 #### [facility],[address] [place] [address] 35382 CMP with eGFR Normal [facility] Comment on above: Result Comment: COMP REHENSIVE METABOLIC PANEL Performed By: #### 2 80980 #### [facility],[address] [place] [address] 75770 CO2 [Moles/Vol] 24.1 mmol/L Normal 21.0 - 32.0 [facility] Comment on above: Performed By: #### 2 66840 #### [facility],[address] [place] [address] 81064 Creatinine [Mass/Vol] 1.04 mg/dL High 0.55 - 1.02 [facility] Comment on above: Performed By: #### 2 56081 #### [facility],[address] [place] [address] 14035 eGFR 51 ML/MINUTE Low 60 - 999 [facility] Comment on above: Performed By: #### 2 13008 #### [facility],[address] [place] [address] 93275 GFR/1.73 sq M.predicted among non-blacks MDRD (S/P/Bld) [Vol rate/Area] mL/min/{1.73_m2} Normal 60 - 999 [facility] Comment on above: Result Comment: ACCO RDING TO THE NATIONAL KIDNEY DISEASE EDUCATION PROGRAM(NKDE), A NORMAL eGFR IS A VALUE GREATER THAN OR EQUAL TO 60 ML/MIN/1.73 SQ METERS. CHRONIC KIDNEY DISEASE: <60mL/MIN/1.73 SQ METERS KIDNEY FAILURE: <15mL/MIN/1.73 SQ METERS THIS TEST SHOULD ONLY BE USED FOR PATIENTS 18 YEARS OF AGE AND OLDER. Performed By: #### 2 65723 #### [facility],[address] [place] [address] 75981 Globulin (S) [Mass/Vol] 3.8 g/dL Normal 1.5 - 3.8 [facility] Comment on above: Performed By: #### 2 45290 #### [facility],[address] [place] [address] 49878 Glucose [Mass/Vol] 179 mg/dL High 74 - 106 [facility] Comment on above: Performed By: #### 2 03966 #### [facility],[address] [place] [address] 75917 Potassium [Moles/Vol] 4.1 mmol/L Normal 3.5 - 5.1 [facility] Comment on above: Performed By: #### 2 27301 #### [facility],[address] [place] [address] 12036 Protein [Mass/Vol] 7.0 g/dL Normal 6.4 - 8.2 [facility] Comment on above: Performed By: #### 2 80091 #### [facility],[address] [place] [address] 80810 Sodium [Moles/Vol] 135 mmol/L Low 136 - 145 [facility] Comment on above: Performed By: #### 2 78835 #### [facility],[address] [place] [address] 63965 Urea nitrogen [Mass/Vol] 20 mg/dL High 7 - 18 [facility] Comment on above: Performed By: #### 2 61931 #### [facility],[address] [place] [address] ANGIOGRAPHY HEAD W/CONTRA STon 12-27-2023 CT ANGIOGRAPHY HEAD W/CONTRAST [place] [address] Patient: KIESHA COLVIN Phone#: : 1940 Age: 83 Gender: F Pt. Type: ER Account: [id number] Location: [facility] Ordering: DR. SANEDEP BARAJAS Exam Date: 12/27/2023/22:12 Family Phys: DRE Charge Code: [id number] Physician: Uintah Order #: [id number] Dose#: 14.60 PROCEDURE: CT ANGIOGRAPHY HEAD WITH CONTRAST COMPARISON: None. INDICATIONS: Trauma. TECHNIQUE: After obtaining the patient's consent, CT images of the head were obtained with non- ionic contrast, and MPR and 3D imaging were created and interpreted to optimize visualization of vascular anatomy. All CT scans at this facility use dose modulation, iterative reconstruction, and/or weight based dosing when appropriate to reduce radiation dose to as low as reasonably achievable. IV CONTRAST: Omnipaque 350,70ml TOTAL DOSE: 14.60 CTDIvol(mGy) FINDINGS: VASCULATURE: Normal. No significant stenosis. No visible aneurysm or vascular malformation. VENTRICLES: Normal for age. No enlargement or displacement. CEREBRUM: Normal for age. No excessive atrophy, mass, or hemorrhage, or abnormal enhancement. CEREBELLUM: Normal for age. No excessive atrophy, mass, or hemorrhage, or abnormal enhancement. BRAINSTEM: Normal for age. No excessive atrophy, mass, or hemorrhage, or abnormal enhancement. BASAL CISTERNS: Normal. No subarachnoid hemorrhage or effacement. SKULL: Negative. Soft tissue swelling is present at the maxilla and nose. There is opacification of the right maxillary sinus. Mucosal thickening is present in the ethmoid and left maxillary sinus. There is nearly complete opacification of the ethmoid air cells. Fracture of the right maxillary sinus is present anteriorly. Subcutaneous emphysema is present. Fracture of the nasal bridge and nasal septum is present. CONCLUSION: Continued Report - Page 2 of 2 Patient: KIESHA COLVIN Phone#: : 1940 Age: 83 Gender: F Pt. Type: ER Account: [id number] Location: 052 Ordering: DR. SANDEEP BARAJAS Exam Date: 12/27/2023/22:12 Family Phys: TALAMYSAS Charge Code: [id number] Physician: Uintah Order #: [id number] Dose#: 14.60 1. Right maxillary sinus fractures present. Mucosal thickening and fluid levels are present in paranasal sinuses. There is soft tissue edema particularly at the right maxilla. 2. There is no evidence of significant stenosis or aneurysmal dilatation of the carotid arteries. Dictated by: Thania Caballero MD on 12/29/2023 at 1:29 Approved by: Thania Caballero MD on 12/29/2023 at 1:34 Normal [facility] CT ANGIOGRAPHY [facility] 2023 CT ANGIOGRAPHY [place] [address] Patient: KIESHA COLVIN Phone#: : 1940 Age: 83 Gender: F Pt. Type: ER Account: [id number] Location: 052 Ordering: DR. SANDEEP BARAJAS Exam Date: 12/27/2023/22:12 Family Phys: TALAMYSAS Charge Code: [id number] Physician: Uintah Order #: [id number] Dose#: 14.60 PROCEDURE: CT ANGIOGRAPHY CAROTIDS WITH CONTRAST COMPARISON: None. INDICATIONS: Trauma. TECHNIQUE: After obtaining the patient's consent, CT images of the neck were obtained with non- ionic intravenous contrast material. MPR/MIPS and 3D images were created to optimize visualization of vascular anatomy. All CT scans at this facility use dose modulation, iterative reconstruction, and/or weight based dosing when appropriate to reduce radiation dose to as low as reasonably achievable. IV CONTRAST: Omnipaque 350,70ml TOTAL DOSE: 14.60 CTDIvol(mGy) FINDINGS: LEFT INTERNAL CAROTID: Atherosclerotic calcifications present. No hemodynamically significant stenosis or dissection. EXTERNAL CAROTID: No hemodynamically significant stenosis or dissection. COMMON CAROTID: Atherosclerotic calcifications present. No hemodynamically significant stenosis or dissection. VERTEBRAL: No hemodynamically significant stenosis or dissection. RIGHT INTERNAL CAROTID: Atherosclerotic calcifications present. No hemodynamically significant stenosis or dissection. EXTERNAL CAROTID: No hemodynamically significant stenosis or dissection. COMMON CAROTID: Atherosclerotic calcifications present. No hemodynamically significant stenosis or dissection. VERTEBRAL: No hemodynamically significant stenosis or dissection. OTHER: Multiple facial fractures, please refer to CT face report performed same day. Degenerative changes of the cervical spine. Continued Report - Page 2 of 2 Patient: KIESHA COLVIN Phone#: : 1940 Age: 83 Gender: F Pt. Type: ER Account: [id number] Location: 052 Ordering: DR. SANDEEP BARAJAS Exam Date: 12/27/2023/22:12 Family Phys: DRE Charge Code: [id number] Physician: Uintah Order #: [id number] Dose#: 14.60 CONCLUSION: 1. No hemodynamically significant stenosis. Dictated by: Sherice Chance MD on 12/29/2023 at 9:24 Approved by: Sherice Chance MD on 12/29/2023 at 9:30 Normal [facility] CT BRAIN W/O CONTRASTon -2 CT BRAIN W/O CONTRAST [place] [id number] Patient: KIESHA COLVIN Phone#: : 1940 Age: 83 Gender: F Pt. Type: ER Account: [id number] Location: 052 Ordering: DR. SANDEEP BARAJAS Exam Date: 12/27/2023/20:40 Family Phys: DRE Charge Code: [id number] Physician: Uintah Order #: [id number] Dose#: 52.70 PROCEDURE: CT BRAIN WITHOUT CONTRAST COMPARISON: None. INDICATIONS: Trauma. TECHNIQUE: CT images were obtained without contrast material. All CT scans at this facility use dose modulation, iterative reconstruction, and/or weight based dosing when appropriate to reduce radiation dose to as low as reasonably achievable. IV CONTRAST: No IV contrast used,0ml TOTAL DOSE: 52.70 CTDIvol(mGy) FINDINGS: Study limited by patient ability to position. CEREBRUM: No edema, hemorrhage, mass. Global atrophy. Periventricular deep cerebral white matter hypodensities, in a patient of this age group most consistent with small vessel ischemic disease. CEREBELLUM: No edema, hemorrhage, mass. Global atrophy. BRAINSTEM: No edema, hemorrhage, mass or inappropriate atrophy. CSF SPACES: Ventricles, cisterns, and sulci are appropriate for age. No hydrocephalus, subarachnoid hemorrhage, or mass. SKULL: No mass or other significant visible lesion. SINUSES: Are facial bone fractures, please refer to CT face report performed same day. ORBITS: [place] ocular lenses are absent. OTHER: Right frontal scalp hematoma measures 0.7 x 0.9 cm. There is adjacent soft tissue stranding. CONCLUSION: 1. No appreciable acute intracranial abnormality. Note: An acute ischemic event or extension of a chronic ischemic process may not be initially evident on CT. 2. Global atrophy and atherosclerosis. 3. Small vessel ischemic disease. Continued Report - Page 2 of 2 Patient: KIESHA COLVIN Phone#: : 1940 Age: 83 Gender: F Pt. Type: ER Account: [id number] Location: 052 Ordering: DR. SANDEEP BARAJAS Exam Date: 12/27/2023/20:40 Family Phys: TALPIOTRSAS Charge Code: [id number] Physician: Uintah Order #: [id number] Dose#: 52.70 Dictated by: Sherice Chance MD on 12/27/2023 at 21:03 Approved by: Sherice Chance MD on 12/27/2023 at 21:08 Normal [facility] CT CERVICAL W/O CONTRASTon 0 12-27-2023 CT CERVICAL W/O CONTRAST [place] [address] Patient: KIESHA COLVIN Phone#: : 1940 Age: 83 Gender: F Pt. Type: ER Account: [id number] Location: 052 Ordering: DR. SANDEEP BARAJAS Exam Date: 12/27/2023/20:40 Family Phys: DRE Charge Code: [id number] Physician: Uintah Order #: [id number] Dose#: 21.20 PROCEDURE: CT CERVICAL WITHOUT CONTRAST COMPARISON: [facility], XR, CERVICAL SPINE COMPLETE, 05/22/2023, 13:33. INDICATIONS: Trauma. TECHNIQUE: Multi-planar CT images were created without intravenous contrast. All CT scans at this facility use dose modulation, iterative reconstruction, and/or weight-based dosing when appropriate to reduce radiation dose to as low as reasonably achievable. IV CONTRAST: No IV contrast used,0ml TOTAL DOSE: 21.20 CTDIvol(mGy) FINDINGS: CRANIOCERVICAL AREA: Normal foramen magnum with no Chiari malformation. PARASPINAL AREA: Normal with no visible mass. BONES: The dens is intact. Vertebral bodies are maintained in height and alignment. The lateral masses are symmetric. OTHER: Facial fractures, please refer to CT face report performed same day. Atherosclerotic calcifications of the cavernous carotid arteries. CERVICAL DISC LEVELS: C2-C3: Disc height loss without significant osseous foraminal narrowing. C3-C4: Disc height loss, uncovertebral hypertrophy and facet arthropathy contributes to severe left and moderate right neural foraminal narrowing C4-C5: Disc height loss, uncovertebral hypertrophy and facet arthropathy contributes to severe left neural foraminal narrowing and mild spinal canal narrowing. C5-C6: Disc height loss, uncovertebral hypertrophy and facet arthropathy contributes to severe left and severe right neural foraminal narrowing. There is severe spinal canal narrowing, series 7, image 41. C6-C7: Disc height loss and uncovertebral hypertrophy contributes to moderate bilateral foraminal narrowing and at least moderate spinal canal narrowing. C7-T1: Disc height loss contributes to moderate left neural foraminal narrowing. Continued Report - Page 2 of 2 Patient: KIESHA COLVIN Phone#: : 1940 Age: 83 Gender: F Pt. Type: ER Account: [id number] Location: 052 Ordering: DR. SANDEEP BARAJAS Exam Date: 12/27/2023/20:40 Family Phys: TALPIOTRSAS Charge Code: [id number] Physician: Uintah Order #: [id number] Dose#: 21.20 CONCLUSION: 1. No acute osseous abnormality 2. Multilevel degenerative changes with varying degrees of spinal canal and neural foraminal narrowing. Most significant at C5-6 with severe foraminal and spinal canal narrowing Dictated by: Sherice Chance MD on 12/27/2023 at 21:09 Approved by: Sherice Chance MD on 12/27/2023 at 21:16 Normal [facility] CT FACIAL BONES W/O CONTRAST on 12-27-2023 CT FACIAL BONES W/O CONTRAST [place] [address] Patient: KIESHA COLVIN Phone#: : 1940 Age: 83 Gender: F Pt. Type: ER Account: [id number] Location: 052 Ordering: DR. SANDEEP BARAJAS Exam Date: 12/27/2023/20:40 Family Phys: DRE Charge Code: [id number] Physician: Uintah Order #: [id number] Dose#: 29.20 PROCEDURE: CT FACIAL BONES WITHOUT CONTRAST COMPARISON: None. INDICATIONS: Trauma. TECHNIQUE: After obtaining the patient's consent, CT images were created without non-ionic intravenous contrast. All CT scans at this facility use dose modulation, iterative reconstruction, and/or weight based dosing when appropriate to reduce radiation dose to as low as reasonably achievable. IV CONTRAST: No IV contrast used,0ml TOTAL DOSE: 29.20 CTDIvol(mGy) FINDINGS: FACIAL BONES: Comminuted nasal bone fracture. Fracture of the nasal septum. Right maxillary anterior, medial and lateral wall fractures. Right pterygoid plate fractures. No appreciable left pterygoid plate fractures. SINUSES: Hyperdense material in the right maxillary sinus consistent with hemorrhage. Mucosal thickening throughout the ethmoid air cells. Frontal sinuses are clear. Mild mucosal thickening in the left maxillary sinus. NASAL FOSSA: Opacification in the nasal passage secondary to fracture and associated hemorrhage and edema. SKULL BASE: Normal. No mass or bone destruction. ORBITS: Right frontal scalp hematoma and soft tissue swelling. CAVERNOUS SINUS: Atherosclerotic calcifications of the cavernous carotid arteries. SALIVARY GLANDS: Normal. The parotid and submandibular glands are unremarkable. OTHER: There are secretions obscuring evaluation of the nasopharynx. CONCLUSION: 1. Right-sided LeFort type 1 fractures. (Right pterygoid plate fractures, maxillary sinus wall fractures and comminuted nasal bone fractures) Continued Report - Page 2 of 2 Patient: KIESHA COLVINKeegan Phone#: : 1940 Age: 83 Gender: F Pt. Type: ER Account: [id number] Location: 052 Ordering: DR. SANDEEP BARAJAS Exam Date: 12/27/2023/20:40 Family Phys: DRE Charge Code: [id number] Physician: Uintah Order #: [id number] Dose#: 29.20 Dictated by: Sherice Chance MD on 12/27/2023 at 21:17 Approved by: Sherice Chance MD on 12/27/2023 at 21:30 Normal [facility] LACTATEon 12-27-2023 Lactate [Moles/Vol] 1.5 mmol/L Normal 0.4 - 2.0 [facility] Comment on above: Performed By: #### 2 54404 #### [facility],[address] [place] [address] PELVIS 1 or 2 VIEWSon 2023 PELVIS 1 or 2 VIEWS [place] [id number] Patient: KIESHA COLVINKeegan Phone#: : 1940 Age: 83 Gender: F Pt. Type: ER Account: [id number] Location: 052 Ordering: DR. SANDEEP BARAJAS Exam Date: 12/27/2023/22:28 Family Phys: DRE Charge Code: [id number] Physician: Uintah Order #: [id number] Dose#: PROCEDURE: X-RAY PELVIS AP COMPARISON: None. INDICATIONS: Trauma. FINDINGS: BONES: Degenerative changes are present at the lower lumbar spine and hips bilaterally. There is no evidence of acute fracture. SOFT TISSUES: Negative. No visible soft tissue swelling. EFFUSION: None visible. OTHER: Moderate stool retention is present in the proximal colon. CONCLUSION: 1. There is no evidence of acute bone abnormality. Dictated by: Thania Caballero MD on 12/29/2023 at 0:18 Approved by: Thania Caballero MD on 12/29/2023 at 0:20 Normal [facility] TROPONIN I, HIGH SENSITIVITY on 12-27-2023 HS TROPONIN 9.1 pg/mL Normal 0.0 - 51.4 [facility] Comment on above: Performed By: #### 2 34815 #### [facility],[address] [place] [address] LAN SCREENINGon 04-10-2023 [facility] Absolute lymphocyte countOrd ered By: Dr. Haney on 02-06-2023 Lymphocytes Auto (Unsp spec) [#/Vol] 1.56 10*3/uL 0.83-4.51 [facility] Basophil percentageOrdered B y: Dr. Haney on 02-06-2023 Basophils/100 WBC (Bld) 0.6 % 0-1 [facility] Bilirubin [Mass/Vol] 0.40 mg/dL 0.20-1.00 [facility] Comment on above: For patients on eltr ombopag therapy, use of Dimension [place] TBIL is not recommended. Chloride [Moles/Vol] 104 mmol/L 98-107 [facility] Eosinophils/100 WBC (Bld) 4.7 % 0-5 [facility] Glucose [Mass/Vol] 143 mg/dL 74-106 [facility] Comment on above: Fasting Glucose resu lt greater than or equal to 126 mg/dL suggests DIABETES MELLITUS per A.D.A. criteria. Neutrophils (Bld) [#/Vol] 4.1 10*3/uL 2.0-7.7 [facility] Neutrophils/100 WBC (Bld) 62.9 % 47-70 [facility] Potassium [Moles/Vol] 3.9 mmol/L 3.5-5.1 [facility] Protein [Mass/Vol] 7.8 g/dL 6.4-8.2 [facility] [facility] Sodium [Moles/Vol] 139 mmol/L 136-145 [facility] WBC (Bld) [#/Vol] 6.4 10*3/uL 4.4-11.0 [facility] Blood erythrocytes count (nu mber/volume)Ordered By: Dr. Haney on 02-06-2023 RBC (Bld) [#/Vol] 3.71 10*6/uL 4.2-5.4 [facility] Blood hemoglobin measurement (mass/volume)Ordered By: Dr. Haney on 02-06-2023 Hemoglobin (Bld) [Mass/Vol] 11.6 g/dL 12.0-15.0 [facility] Blood lymphocytes/100 leukoc ytesOrdered By: Dr. Haney on 02-06-2023 Lymphocytes/100 WBC (Bld) 24.2 % 19-41 [facility] Blood monocytes/100 leukocyt esOrdered By: Dr. Haney on 02-06-2023 Monocytes/100 WBC (Bld) 7.1 % 0-10 [facility] Blood platelet mean volumeOr dered By: Dr. Haney on 02-06-2023 Platelet mean volume (Bld) [Entitic vol] 10.8 fL 6.2-12.0 [facility] Determination of erythrocyte mean corpuscular volume (MCV)Ordered By: Dr. Haney on 02-06-2023 MCV (RBC) [Entitic vol] 97.0 fL 81-99 [facility] Hematocrit Auto (Bld) [Volum e fraction]Ordered By: Dr. Haney on 02-06-2023 Hematocrit (Bld) [Volume fraction] 36.0 % 37-47 [facility] Laboratory - Chemistry and C hemistry - challengeOrdered By: Dr. Haney on 02-06-2023 ALP [Catalytic activity/Vol] 89 U/L 45-117 [facility] ALT [Catalytic activity/Vol] 37 U/L 13-56 [facility] CO2 [Moles/Vol] 26.0 mmol/L 21.0-32.0 [facility] Globulin (S) [Mass/Vol] 4.1 g/dL 2.2-4.2 [facility] Urea nitrogen/Creatinine [Mass ratio] 24.4 mg/mg 10-20 [facility] Laboratory - Hematology and Cell countsOrdered By: Dr. Haney on 02-06-2023 Erythrocyte distribution width (RBC) [Entitic vol] 49.1 fL 35.1-43.9 [facility] Erythrocyte distribution width (RBC) [Ratio] 14.1 % 11.6-14.6 [facility] Immature granulocytes/100 WBC (Bld) 0.500 % 0.0-0.9 [facility] Comment on above: IG% - Immature Granu locytes (promyelocytes, myelocytes and metamyelocytes) > 1% indicates that a LEFT SHIFT is Present. MCH (RBC) [Entitic mass] 31.3 pg 27.0-32.0 [facility] Nucleated RBC/100 WBC (Bld) [Ratio] 0 % 0-5 [facility] MCHC Auto (RBC) [Mass/Vol]Or dered By: Dr. Haney on 02-06-2023 MCHC (RBC) [Mass/Vol] 32.2 g/dL 32-36 [facility] No Panel InformationOrdered By: Dr. Haney on 02-06-2023 Estimated GFR (MDRD) Amer 73 mL/min >60 [facility] Comment on above: GFR Calc Estimated GFR (MDRD) Non-Af Amer 60 mL/min >60 [facility] Comment on above: Non- GFR Calc Platelets bldOrdered By: Dr. Haney on 02-06-2023 Platelets (Bld) [#/Vol] 230 10*3/uL 150-450 [facility] Serum or plasma albumin nic urement (mass/volume)Ordered By: Dr. Haney on 02-06-2023 Albumin [Mass/Vol] 3.7 g/dL 3.2-5.0 [facility] Serum or plasma albumin/glob ulin mass ratioOrdered By: Dr. Haney on 02-06-2023 Albumin/Globulin [Mass ratio] 0.9 {ratio} 0.9-2.4 [facility] Serum or plasma calcium nic urement (mass/volume)Ordered By: Dr. Haney on 02-06-2023 Calcium [Mass/Vol] 9.0 mg/dL 8.5-10.1 [facility] Serum or plasma creatinine m easurement (mass/volume)Ordered By: Dr. Haney on 02-06-2023 Creatinine [Mass/Vol] 0.94 mg/dL 0.55-1.02 [facility] Comment on above: The validity of the calculated GFR & GFRAA in patients over 70 years has not been determined. Clinical correlation is essential. Serum or plasma urea nitroge n measurement (mass/volume)Ordered By: Dr. Haney on 02-06-2023 Urea nitrogen [Mass/Vol] 23 mg/dL 7-18 [facility] Thin prep Papanicolaou smear with manual screeningOrdered By: Dr. Haney on 02-06-2023 Thin prep Papanicolaou smear with manual screening 27 U/L 15-37 [facility] Thin prep Papanicolaou smear with manual screening 9 5-15 [facility] Absolute lymphocyte countOrd ered By: Dr. Haney on 11-07-2022 Lymphocytes Auto (Unsp spec) [#/Vol] 1.37 10*3/uL 0.83-4.51 [facility] Basophil percentageOrdered B y: Dr. Haney on 11-07-2022 Basophils/100 WBC (Bld) 0.5 % 0-1 [facility] Bilirubin [Mass/Vol] 0.40 mg/dL 0.20-1.00 [facility] Comment on above: For patients on eltr ombopag therapy, use of Dimension [place] TBIL is not recommended. Chloride [Moles/Vol] 100 mmol/L 98-107 [facility] Eosinophils/100 WBC (Bld) 4.2 % 0-5 [facility] Glucose [Mass/Vol] 68 mg/dL 74-106 [facility] Neutrophils (Bld) [#/Vol] 3.6 10*3/uL 2.0-7.7 [facility] Neutrophils/100 WBC (Bld) 62.4 % 47-70 [facility] Potassium [Moles/Vol] 4.5 mmol/L 3.5-5.1 [facility] Comment on above: Slight Hemolysis, Re sult may be falsely increased. Protein [Mass/Vol] 8.3 g/dL 6.4-8.2 [facility] Sodium [Moles/Vol] 137 mmol/L 136-145 [facility] WBC (Bld) [#/Vol] 5.7 10*3/uL 4.4-11.0 [facility] Blood erythrocytes count (nu mber/volume)Ordered By: Dr. Haney on 11-07-2022 RBC (Bld) [#/Vol] 4.06 10*6/uL 4.2-5.4 [facility] Blood hemoglobin measurement (mass/volume)Ordered By: Dr. Haney on 11-07-2022 Hemoglobin (Bld) [Mass/Vol] 12.6 g/dL 12.0-15.0 [facility] Blood lymphocytes/100 leukoc ytesOrdered By: Dr. Haney on 11-07-2022 Lymphocytes/100 WBC (Bld) 23.9 % 19-41 [facility] Blood monocytes/100 leukocyt esOrdered By: Dr. Haney on 11-07-2022 Monocytes/100 WBC (Bld) 8.7 % 0-10 [facility] Blood platelet mean volumeOr dered By: Dr. Haney on 11-07-2022 Platelet mean volume (Bld) [Entitic vol] 11.5 fL 6.2-12.0 [facility] Determination of erythrocyte mean corpuscular volume (MCV)Ordered By: Dr. Haney on 11-07-2022 MCV (RBC) [Entitic vol] 95.3 fL 81-99 [facility] Hematocrit Auto (Bld) [Volum e fraction]Ordered By: Dr. Haney on 11-07-2022 Hematocrit (Bld) [Volume fraction] 38.7 % 37-47 [facility] Laboratory - Chemistry and C hemistry - challengeOrdered By: Dr. Haney on 11-07-2022 ALP [Catalytic activity/Vol] 90 U/L 45-117 [facility] ALT [Catalytic activity/Vol] 24 U/L 13-56 [facility] CO2 [Moles/Vol] 27.0 mmol/L 21.0-32.0 [facility] Globulin (S) [Mass/Vol] 4.6 g/dL 2.2-4.2 [facility] Urea nitrogen/Creatinine [Mass ratio] 22.1 mg/mg 10-20 [facility] Laboratory - Hematology and Cell countsOrdered By: Dr. Haney on 11-07-2022 Erythrocyte distribution width (RBC) [Entitic vol] 46.0 fL 35.1-43.9 [facility] Erythrocyte distribution width (RBC) [Ratio] 13.4 % 11.6-14.6 [facility] Immature granulocytes/100 WBC (Bld) 0.300 % 0.0-0.9 [facility] Comment on above: IG% - Immature Granu locytes (promyelocytes, myelocytes and metamyelocytes) > 1% indicates that a LEFT SHIFT is Present. MCH (RBC) [Entitic mass] 31.0 pg 27.0-32.0 [facility] Nucleated RBC/100 WBC (Bld) [Ratio] 0 % 0-5 [facility] MCHC Auto (RBC) [Mass/Vol]Or dered By: Dr. Haney on 11-07-2022 MCHC (RBC) [Mass/Vol] 32.6 g/dL 32-36 [facility] No Panel InformationOrdered By: Dr. Haney on 11-07-2022 Estimated GFR (MDRD) Amer 77 mL/min >60 [facility] Comment on above: GFR Calc Estimated GFR (MDRD) Non-Af Amer 63 mL/min >60 [facility] Comment on above: Non- GFR Calc Platelets bldOrdered By: Dr. Haney on 11-07-2022 Platelets (Bld) [#/Vol] 182 10*3/uL 150-450 [facility] Serum or plasma albumin nic urement (mass/volume)Ordered By: Dr. Haney on 11-07-2022 Albumin [Mass/Vol] 3.7 g/dL 3.2-5.0 [facility] Serum or plasma albumin/glob ulin mass ratioOrdered By: Dr. Haney on 11-07-2022 Albumin/Globulin [Mass ratio] 0.8 {ratio} 0.9-2.4 [facility] Serum or plasma calcium nic urement (mass/volume)Ordered By: Dr. Haney on 11-07-2022 Calcium [Mass/Vol] 9.6 mg/dL 8.5-10.1 [facility] Serum or plasma creatinine m easurement (mass/volume)Ordered By: Dr. Haney on 11-07-2022 Creatinine [Mass/Vol] 0.90 mg/dL 0.55-1.02 [facility] Comment on above: The validity of the calculated GFR & GFRAA in patients over 70 years has not been determined. Clinical correlation is essential. Serum or plasma urea nitroge n measurement (mass/volume)Ordered By: Dr. Haney on 11-07-2022 Urea nitrogen [Mass/Vol] 20 mg/dL 7-18 [facility] Thin prep Papanicolaou smear with manual screeningOrdered By: Dr. Haney on 11-07-2022 Thin prep Papanicolaou smear with manual screening 23 U/L 15-37 [facility] Comment on above: Slight Hemolysis, Re sult may be falsely increased. Thin prep Papanicolaou smear with manual screening 10 5-15 [facility] DXA-AXIAL SKELETONon 023 [facility] Absolute lymphocyte countOrd ered By: Dr. Haney on 08-14-2022 Lymphocytes Auto (Unsp spec) [#/Vol] 1.62 10*3/uL 0.83-4.51 [facility] Basophil percentageOrdered B y: Dr. Haney on 08-14-2022 Basophils/100 WBC (Bld) 0.3 % 0-1 [facility] Bilirubin [Mass/Vol] 1.00 mg/dL 0.20-1.00 [facility] Comment on above: For patients on eltr ombopag therapy, use of Dimension [place] TBIL is not recommended. Chloride [Moles/Vol] 104 mmol/L 98-107 [facility] Eosinophils/100 WBC (Bld) 4.7 % 0-5 [facility] Glucose [Mass/Vol] 123 mg/dL 74-106 [facility] Comment on above: Fasting Glucose resu lt from 100 to 125 mg/dL suggests IMPAIRED HOMEOSTASIS per A.D.A. criteria. Neutrophils (Bld) [#/Vol] 4.5 10*3/uL 2.0-7.7 [facility] Neutrophils/100 WBC (Bld) 63.6 % 47-70 [facility] Potassium [Moles/Vol] 4.0 mmol/L 3.5-5.1 [facility] Protein [Mass/Vol] 7.9 g/dL 6.4-8.2 [facility] Sodium [Moles/Vol] 137 mmol/L 136-145 [facility] WBC (Bld) [#/Vol] 7.0 10*3/uL 4.4-11.0 [facility] Blood erythrocytes count (nu mber/volume)Ordered By: Dr. Haney on 08-14-2022 RBC (Bld) [#/Vol] 3.46 10*6/uL 4.2-5.4 [facility] Blood hemoglobin measurement (mass/volume)Ordered By: Dr. Haney on 08-14-2022 Hemoglobin (Bld) [Mass/Vol] 10.5 g/dL 12.0-15.0 [facility] Blood lymphocytes/100 leukoc ytesOrdered By: Dr. Haney on 08-14-2022 Lymphocytes/100 WBC (Bld) 23.0 % 19-41 [facility] Blood monocytes/100 leukocyt esOrdered By: Dr. Haney on 08-14-2022 Monocytes/100 WBC (Bld) 8.1 % 0-10 [facility] Blood platelet mean volumeOr dered By: Dr. Haney on 08-14-2022 Platelet mean volume (Bld) [Entitic vol] 11.3 fL 6.2-12.0 [facility] Determination of erythrocyte mean corpuscular volume (MCV)Ordered By: Dr. Haney on 08-14-2022 MCV (RBC) [Entitic vol] 94.5 fL 81-99 [facility] Hematocrit Auto (Bld) [Volum e fraction]Ordered By: Dr. Haney on 08-14-2022 Hematocrit (Bld) [Volume fraction] 32.7 % 37-47 [facility] Laboratory - Chemistry and C hemistry - challengeOrdered By: Dr. Haney on 08-14-2022 ALP [Catalytic activity/Vol] 85 U/L 45-117 [facility] ALT [Catalytic activity/Vol] 27 U/L 13-56 [facility] CO2 [Moles/Vol] 27.0 mmol/L 21.0-32.0 [facility] Globulin (S) [Mass/Vol] 4.1 g/dL 2.2-4.2 [facility] Urea nitrogen/Creatinine [Mass ratio] 20.4 mg/mg 10-20 [facility] Laboratory - Hematology and Cell countsOrdered By: Dr. Haney on 08-14-2022 Erythrocyte distribution width (RBC) [Entitic vol] 52.8 fL 35.1-43.9 [facility] Erythrocyte distribution width (RBC) [Ratio] 15.5 % 11.6-14.6 [facility] Immature granulocytes/100 WBC (Bld) 0.300 % 0.0-0.9 [facility] Comment on above: IG% - Immature Granu locytes (promyelocytes, myelocytes and metamyelocytes) > 1% indicates that a LEFT SHIFT is Present. MCH (RBC) [Entitic mass] 30.3 pg 27.0-32.0 [facility] Nucleated RBC/100 WBC (Bld) [Ratio] 0 % 0-5 [facility] MCHC Auto (RBC) [Mass/Vol]Or dered By: Dr. Haney on 08-14-2022 MCHC (RBC) [Mass/Vol] 32.1 g/dL 32-36 [facility] No Panel InformationOrdered By: Dr. Haney on 08-14-2022 Estimated GFR (MDRD) Amer 79 mL/min >60 [facility] Comment on above: GFR Calc Estimated GFR (MDRD) Non-Af Amer 65 mL/min >60 [facility] Comment on above: Non- GFR Calc Platelets bldOrdered By: Dr. Haney on 08-14-2022 Platelets (Bld) [#/Vol] 218 10*3/uL 150-450 [facility] Serum or plasma albumin nic urement (mass/volume)Ordered By: Dr. Haney on 08-14-2022 Albumin [Mass/Vol] 3.8 g/dL 3.2-5.0 [facility] Serum or plasma albumin/glob ulin mass ratioOrdered By: Dr. Haney on 08-14-2022 Albumin/Globulin [Mass ratio] 0.9 {ratio} 0.9-2.4 [facility] Serum or plasma calcium nic urement (mass/volume)Ordered By: Dr. Haney on 08-14-2022 Calcium [Mass/Vol] 9.4 mg/dL 8.5-10.1 [facility] Serum or plasma creatinine m easurement (mass/volume)Ordered By: Dr. Haney on 08-14-2022 Creatinine [Mass/Vol] 0.88 mg/dL 0.55-1.02 [facility] Comment on above: The validity of the calculated GFR & GFRAA in patients over 70 years has not been determined. Clinical correlation is essential. Serum or plasma urea nitroge n measurement (mass/volume)Ordered By: Dr. Haney on 08-14-2022 Urea nitrogen [Mass/Vol] 18 mg/dL 7-18 [facility] Thin prep Papanicolaou smear with manual screeningOrdered By: Dr. Haney on 08-14-2022 Thin prep Papanicolaou smear with manual screening 22 U/L 15-37 [facility] Thin prep Papanicolaou smear with manual screening 6 5-15 [facility] Absolute lymphocyte counton 06-09-2022 Lymphocytes Auto (Unsp spec) [#/Vol] 0.86 10*3/uL 0.83-4.51 [facility] Work Phone: Basophil percentageon 2021 Basophils/100 WBC (Bld) 0.5 % 0-1 [facility] Work Phone: Chloride [Moles/Vol] 101 mmol/L 98-107 [facility] Work Phone: Eosinophils/100 WBC (Bld) 4.1 % 0-5 [facility] Work Phone: Glucose [Mass/Vol] 106 mg/dL 74-106 [facility] Work Phone: Comment on above: Fasting Glucose resu lt from 100 to 125 mg/dL suggests IMPAIRED HOMEOSTASIS per A.D.A. criteria. Neutrophils (Bld) [#/Vol] 6.2 10*3/uL 2.0-7.7 [facility] Work Phone: Neutrophils/100 WBC (Bld) 72.9 % 47-70 [facility] Work Phone: Potassium [Moles/Vol] 4.0 mmol/L 3.5-5.1 [facility] Work Phone: [phone] Sodium [Moles/Vol] 135 mmol/L 136-145 [facility] Work Phone: WBC (Bld) [#/Vol] 8.6 10*3/uL 4.4-11.0 [facility] Work Phone: Blood erythrocytes count (nu mber/volume)on 06-09-2022 RBC (Bld) [#/Vol] 3.52 10*6/uL 4.2-5.4 [facility] Work Phone: Blood hemoglobin measurement (mass/volume)on 06-09-2022 Hemoglobin (Bld) [Mass/Vol] 10.6 g/dL 12.0-15.0 [facility] Work Phone: Blood lymphocytes/100 leukoc yteson 06-09-2022 Lymphocytes/100 WBC (Bld) 10.1 % 19-41 [facility] Work Phone: Blood monocytes/100 leukocyt eson 06-09-2022 Monocytes/100 WBC (Bld) 10.2 % 0-10 [facility] Work Phone: Blood platelet mean volumeon 06-09-2022 Platelet mean volume (Bld) [Entitic vol] 10.0 fL 6.2-12.0 [facility] Work Phone: [phone] Determination of erythrocyte mean corpuscular volume (MCV)on 06-09-2022 MCV (RBC) [Entitic vol] 94.9 fL 81-99 [facility] Work Phone: [phone] Erythrocyte sedimentation ra cesario 06-09-2022 ESR (Bld) [Velocity] 57 mm[facility]h 0[facility]: [phone] Hematocrit Auto (Bld) [Volum e fraction]on 06-09-2022 Hematocrit (Bld) [Volume fraction] 33.4 % 37-47 [facility] Work Phone: [phone] Laboratory - Chemistry and C hemistry - challengeon 06-09-2022 CO2 [Moles/Vol] 27.0 mmol/L 21.0-32.0 [facility] Work Phone: [phone] Urea nitrogen/Creatinine [Mass ratio] 15.0 mg/mg 10-20 [facility] Work Phone: [phone] Laboratory - Hematology and Cell countson 06-09-2022 Erythrocyte distribution width (RBC) [Entitic vol] 51.1 fL 35.1-43.9 [facility] Work Phone: [phone] Erythrocyte distribution width (RBC) [Ratio] 14.8 % 11.6-14.6 [facility] Work Phone: [phone] Immature granulocytes/100 WBC (Bld) 2.200 % 0.0-0.9 [facility] Work Phone: [phone] Comment on above: IG% - Immature Granu locytes (promyelocytes, myelocytes and metamyelocytes) > 1% indicates that a LEFT SHIFT is Present. MCH (RBC) [Entitic mass] 30.1 pg 27.0-32.0 [facility] Work Phone: [phone] Nucleated RBC/100 WBC (Bld) [Ratio] 0 % 0-5 [facility] Work Phone: [phone] MCHC Auto (RBC) [Mass/Vol]on 06-09-2022 MCHC (RBC) [Mass/Vol] 31.7 g/dL 32-36 [facility] Work Phone: No Panel Informationon 06-09 Estimated Creatinine Clearance Calc 49.89 ml/min [facility] Work Phone: Estimated GFR (MDRD) Amer 81 mL/min >60 [facility] Work Phone: Comment on above: GFR Calc Estimated GFR (MDRD) Non-Af Amer 67 mL/min >60 [facility] Work Phone: Comment on above: Non- GFR Calc Platelets bldon 06-09-2022 Platelets (Bld) [#/Vol] 339 10*3/uL 150-450 [facility] Work Phone: Serum or plasma C reactive p rotein measurement (mass/volume)on 06-09-2022 CRP [Mass/Vol] 26.80 mg/L 0.0-3.0 [facility] Work Phone: Comment on above: C-Reactive Protein ( CRP) provides useful information for thediagnosis, therapy and monitoring of inflammatory processesand associated diseases. For the evaluation of Relative Riskfor Cardiovascular Disease, a High Sensitivity CRP (HSCRP)should be ordered. Serum or plasma calcium nic urement (mass/volume)on 06-09-2022 Calcium [Mass/Vol] 8.6 mg/dL 8.5-10.1 [facility] Work Phone: Serum or plasma creatinine m easurement (mass/volume)on 06-09-2022 Creatinine [Mass/Vol] 0.86 mg/dL 0.55-1.02 [facility] Work Phone: Comment on above: The validity of the calculated GFR & GFRAA in patients over 70 years has not been determined. Clinical correlation is essential. Serum or plasma urea nitroge n measurement (mass/volume)on 06-09-2022 Urea nitrogen [Mass/Vol] 13 mg/dL 7-18 [facility] Work Phone: [phone] Thin prep Papanicolaou smear with manual screeningon 06-09-2022 Thin prep Papanicolaou smear with manual screening 7 5-15 [facility] Work Phone: Absolute lymphocyte counton 06-04-2022 Lymphocytes Auto (Unsp spec) [#/Vol] 0.56 10*3/uL 0.83-4.51 [facility] Work Phone: Basophil percentageon 2021 Basophils/100 WBC (Bld) 0.4 % 0-1 [facility] Work Phone: Chloride [Moles/Vol] 103 mmol/L 98-107 [facility] Work Phone: Eosinophils/100 WBC (Bld) 1.7 % 0-5 [facility] Work Phone: Glucose [Mass/Vol] 93 mg/dL 74-106 [facility] Work Phone: Neutrophils (Bld) [#/Vol] 4.0 10*3/uL 2.0-7.7 [facility] Work Phone: Neutrophils/100 WBC (Bld) 75.9 % 47-70 [facility] Work Phone: Potassium [Moles/Vol] 3.6 mmol/L 3.5-5.1 [facility] Work Phone: Sodium [Moles/Vol] 134 mmol/L 136-145 [facility] Work Phone: WBC (Bld) [#/Vol] 5.3 10*3/uL 4.4-11.0 [facility] Work Phone: Blood erythrocytes count (nu mber/volume)on 06-04-2022 RBC (Bld) [#/Vol] 3.12 10*6/uL 4.2-5.4 [facility] Work Phone: Blood hemoglobin measurement (mass/volume)on 06-04-2022 Hemoglobin (Bld) [Mass/Vol] 9.5 g/dL 12.0-15.0 [facility] Work Phone: Blood lymphocytes/100 leukoc yteson 06-04-2022 Lymphocytes/100 WBC (Bld) 10.6 % 19-41 [facility] Work Phone: [phone] Blood manual differential co mment interpretation (narrative result)on 06-04-2022 Manual differential comment Javier (Bld) [Interp] SCANNED [facility] Work Phone: [phone] Comment on above: LYMPHOPENIA NOTED Blood monocytes/100 leukocyt eson 06-04-2022 Monocytes/100 WBC (Bld) 10.8 % 0-10 [facility] Work Phone: [phone] Blood platelet mean volumeon 06-04-2022 Platelet mean volume (Bld) [Entitic vol] 11.2 fL 6.2-12.0 [facility] Work Phone: [phone] Determination of erythrocyte mean corpuscular volume (MCV)on 06-04-2022 MCV (RBC) [Entitic vol] 93.9 fL 81-99 [facility] Work Phone: [phone] Hematocrit Auto (Bld) [Volum e fraction]on 06-04-2022 Hematocrit (Bld) [Volume fraction] 29.3 % 37-47 [facility] Work Phone: [phone] Laboratory - Chemistry and C hemistry - challengeon 06-04-2022 CO2 [Moles/Vol] 25.0 mmol/L 21.0-32.0 [facility] Work Phone: [phone] Urea nitrogen/Creatinine [Mass ratio] 24.7 mg/mg 10-20 [facility] Work Phone: [phone] Laboratory - Hematology and Cell countson 06-04-2022 Erythrocyte distribution width (RBC) [Entitic vol] 50.7 fL 35.1-43.9 [facility] Work Phone: [phone] Erythrocyte distribution width (RBC) [Ratio] 14.8 % 11.6-14.6 [facility] Work Phone: [phone] Immature granulocytes/100 WBC (Bld) 0.600 % 0.0-0.9 [facility] Work Phone: [phone] Comment on above: IG% - Immature Granu locytes (promyelocytes, myelocytes and metamyelocytes) > 1% indicates that a LEFT SHIFT is Present. MCH (RBC) [Entitic mass] 30.4 pg 27.0-32.0 [facility] Work Phone: Nucleated RBC/100 WBC (Bld) [Ratio] 0 % 0-5 [facility] Work Phone: [phone] MCHC Auto (RBC) [Mass/Vol]on 06-04-2022 MCHC (RBC) [Mass/Vol] 32.4 g/dL 32-36 [facility] Work Phone: No Panel Informationon 06-04 Estimated Creatinine Clearance Calc 48.59 ml/min [facility] Work Phone: [phone] Estimated GFR (MDRD) Amer 83 mL/min >60 [facility] Work Phone: [phone] Comment on above: GFR Calc Estimated GFR (MDRD) Non-Af Amer 68 mL/min >60 [facility] Work Phone: Comment on above: Non- GFR Calc Platelets bldon 06-04-2022 Platelets (Bld) [#/Vol] 146 10*3/uL 150-450 [facility] Work Phone: [phone] Serum or plasma calcium nic urement (mass/volume)on 06-04-2022 Calcium [Mass/Vol] 8.6 mg/dL 8.5-10.1 [facility] Work Phone: [phone] Serum or plasma creatinine m easurement (mass/volume)on 06-04-2022 Creatinine [Mass/Vol] 0.85 mg/dL 0.55-1.02 [facility] Work Phone: Comment on above: The validity of the calculated GFR & GFRAA in patients over 70 years has not been determined. Clinical correlation is essential. Serum or plasma urea nitroge n measurement (mass/volume)on 06-04-2022 Urea nitrogen [Mass/Vol] 21 mg/dL 7-18 [facility] Work Phone: [phone] Thin prep Papanicolaou smear with manual screeningon 06-04-2022 Thin prep Papanicolaou smear with manual screening 6 5-15 [facility] Work Phone: [phone] Blood platelet adequacy dete ction by light microscopyon 06-03-2022 Platelets LM Ql (Bld) SLT DEC ADEQ [facility] Work Phone: [phone] RBC morphologyon 06-03-2022 RBC morphology finding Nom (Bld) NORM C+C NORMAL NORM C&C [facility] Work Phone: [phone] Basophil percentageon 2021 Basophil percentage 2.7 mg/dL 2.5-4.9 [facility] Work Phone: [phone] Laboratory - Chemistry and C hemistry - challengeon 06-02-2022 Magnesium [Mass/Vol] 1.9 mg/dL 1.6-2.6 [facility] Work Phone: [phone] No Panel Informationon 06-02 Thyroid Stimulating Hormone (TSH) 0.62 uIU/mL 0.358-3.74 [facility] Work Phone: [phone] Troponin I High Sensitivity 338 pg/mL 3.0-54.0 [facility] Work Phone: [phone] Comment on above: Critical Result(s) C alled at: 08:30:41 06/02/2022 by: Alexander Higuera RN ([place] [facility]). Results read back by same. Please Note: New Test Units and Gender Specific Reference Ranges. For more information see Policy Stat Procedure [place] High Sensitivity Troponin (TNIH) and attachments. Absolute lymphocyte counton 06-01-2022 Lymphocytes Auto (Unsp spec) [#/Vol] 0.42 10*3/uL 0.83-4.51 [facility] Work Phone: [phone] Basophil percentageon 2021 Basophil percentage 0 SEEN /hpf 0-5 [facility] Work Phone: [phone] Basophils/100 WBC (Bld) 0.1 % 0-1 [facility] Work Phone: [phone] Bilirubin [Mass/Vol] 1.00 mg/dL 0.20-1.00 [facility] Work Phone: [phone] Comment on above: For patients on eltr ombopag therapy, use of Dimension [place] TBIL is not recommended. Chloride [Moles/Vol] 97 mmol/L 98-107 [facility] Work Phone: Eosinophils/100 WBC (Bld) 0.0 % 0-5 [facility] Work Phone: [phone] Glucose [Mass/Vol] 134 mg/dL 74-106 [facility] Work Phone: Comment on above: Fasting Glucose resu lt greater than or equal to 126 mg/dL suggests DIABETES MELLITUS per A.D.A. criteria. Lactate [Moles/Vol] 1.8 mmol/L 0.4-2.0 [facility] Work Phone: Neutrophils (Bld) [#/Vol] 13.1 10*3/uL 2.0-7.7 [facility] Work Phone: Neutrophils/100 WBC (Bld) 93.2 % 47-70 [facility] Work Phone: [phone] Potassium [Moles/Vol] 3.9 mmol/L 3.5-5.1 [facility] Work Phone: Protein [Mass/Vol] 8.2 g/dL 6.4-8.2 [facility] Work Phone: Sodium [Moles/Vol] 131 mmol/L 136-145 [facility] Work Phone: [phone] WBC (Bld) [#/Vol] 14.0 10*3/uL 4.4-11.0 [facility] Work Phone: Bilirubin Test strip Ql (U)o n 06-01-2022 Bilirubin Ql (U) Negative Negative [facility] Work Phone: Blood erythrocytes count (nu mber/volume)on 06-01-2022 RBC (Bld) [#/Vol] 3.99 10*6/uL 4.2-5.4 [facility] Work Phone: Blood hemoglobin measurement (mass/volume)on 06-01-2022 Hemoglobin (Bld) [Mass/Vol] 12.4 g/dL 12.0-15.0 [facility] Work Phone: [phone] Blood lymphocytes/100 leukoc yteson 06-01-2022 Lymphocytes/100 WBC (Bld) 3.0 % 19-41 [facility] Work Phone: [phone] Blood monocytes/100 leukocyt eson 06-01-2022 Monocytes/100 WBC (Bld) 3.1 % 0-10 [facility] Work Phone: [phone] Blood platelet mean volumeon 06-01-2022 Platelet mean volume (Bld) [Entitic vol] 10.8 fL 6.2-12.0 [facility] Work Phone: [phone] Determination of erythrocyte mean corpuscular volume (MCV)on 06-01-2022 MCV (RBC) [Entitic vol] 93.5 fL 81-99 [facility] Work Phone: [phone] Erythrocyte sedimentation ra cesario 06-01-2022 ESR (Bld) [Velocity] 46 mm/h 0-30 [facility] Work Phone: [phone] Hematocrit Auto (Bld) [Volum e fraction]on 06-01-2022 Hematocrit (Bld) [Volume fraction] 37.3 % 37-47 [facility] Work Phone: [phone] Ketones Test strip Ql (U)on 06-01-2022 Ketones Ql (U) 5 mg/dl Negative [facility] Work Phone: [phone] Laboratory - Chemistry and C hemistry - challengeon 06-01-2022 CK [Catalytic activity/Vol] 657 U/L 26-192 [facility] Work Phone: [phone] ALP [Catalytic activity/Vol] 85 U/L 45-117 [facility] Work Phone: [phone] ALT [Catalytic activity/Vol] 25 U/L 13-56 [facility] Work Phone: [phone] CO2 [Moles/Vol] 26.0 mmol/L 21.0-32.0 [facility] Work Phone: Globulin (S) [Mass/Vol] 4.3 g/dL 2.2-4.2 [facility] Work Phone: [phone] Urea nitrogen/Creatinine [Mass ratio] 13.8 mg/mg 10-20 [facility] Work Phone: [phone] Laboratory - Hematology and Cell countson 06-01-2022 Erythrocyte distribution width (RBC) [Entitic vol] 49.6 fL 35.1-43.9 [facility] Work Phone: [phone] Erythrocyte distribution width (RBC) [Ratio] 14.7 % 11.6-14.6 [facility] Work Phone: [phone] Immature granulocytes/100 WBC (Bld) 0.600 % 0.0-0.9 [facility] Work Phone: [phone] Comment on above: IG% - Immature Granu locytes (promyelocytes, myelocytes and metamyelocytes) > 1% indicates that a LEFT SHIFT is Present. MCH (RBC) [Entitic mass] 31.1 pg 27.0-32.0 [facility] Work Phone: [phone] Nucleated RBC/100 WBC (Bld) [Ratio] 0 % 0-5 [facility] Work Phone: [phone] MCHC Auto (RBC) [Mass/Vol]on 06-01-2022 MCHC (RBC) [Mass/Vol] 33.2 g/dL 32-36 [facility] Work Phone: [phone] Mucus LM Ql (Urine sed)on Mucus Ql (Urine sed) 0 SEEN /hpf [facility] Work Phone: [phone] Nitrite Test strip Ql (U)on 06-01-2022 Nitrite Ql (U) Negative Negative [facility] Work Phone: [phone] Panel Informationon 06-01 Methicillin-Resist S.aureus DNA PCR Negative Negative [facility] Work Phone: [phone] Estimated Creatinine Clearance Calc 33.58 ml/min [facility] Work Phone: [phone] Estimated GFR (MDRD) Amer 54 mL/min >60 [facility] Work Phone: [phone] Comment on above: GFR Calc Estimated GFR (MDRD) Non-Af Amer 44 mL/min >60 [facility] Work Phone: Comment on above: Non- GFR Calc Troponin I High Sensitivity 150 pg/mL 3.0-54.0 [facility] Work Phone: Comment on above: Critical Result(s) C alled at: 11:31:41 06/01/2022 by: Alexander Vera to Shira FUNES (ER). Results read back by same. Please Note: New Test Units and Gender Specific Reference Ranges. For more information see Policy Stat Procedure [place] High Sensitivity Troponin (TNIH) and attachments. Platelets bldon 06-01-2022 Platelets (Bld) [#/Vol] 177 10*3/uL 150-450 [facility] Work Phone: Protein Test strip Ql (U)on 06-01-2022 Protein Ql (U) 30 mg/dl Negative [facility] Work Phone: Serum or plasma C reactive p rotein measurement (mass/volume)on 06-01-2022 CRP [Mass/Vol] 84.80 mg/L 0.0-3.0 [facility] Work Phone: Comment on above: C-Reactive Protein ( CRP) provides useful information for thediagnosis, therapy and monitoring of inflammatory processesand associated diseases. For the evaluation of Relative Riskfor Cardiovascular Disease, a High Sensitivity CRP (HSCRP)should be ordered. Serum or plasma albumin nic urement (mass/volume)on 06-01-2022 Albumin [Mass/Vol] 3.9 g/dL 3.2-5.0 [facility] Work Phone: Serum or plasma albumin/glob ulin mass ratioon 06-01-2022 Albumin/Globulin [Mass ratio] 0.9 {ratio} 0.9-2.4 [facility] Work Phone: Serum or plasma calcium inc urement (mass/volume)on 06-01-2022 Calcium [Mass/Vol] 9.4 mg/dL 8.5-10.1 [facility] Work Phone: Serum or plasma creatinine m easurement (mass/volume)on 06-01-2022 Creatinine [Mass/Vol] 1.23 mg/dL 0.55-1.02 [facility] Work Phone: Comment on above: The validity of the calculated GFR & GFRAA in patients over 70 years has not been determined. Clinical correlation is essential. Serum or plasma urea nitroge n measurement (mass/volume)on 06-01-2022 Urea nitrogen [Mass/Vol] 17 mg/dL 7-18 [facility] Work Phone: [phone] Squamous epithelial cells de tection in urine sediment by light microscopyon 06-01-2022 Epithelial cells.squamous LM Ql (Urine sed) 0 SEEN /hpf 5-10 [facility] Work Phone: Staphylococcus aureus DNA de tection by probe and target amplification methodon 06-01-2022 S. aureus DNA DONTRELL+probe Ql (Unsp spec) Negative Negative [facility] Work Phone: Thin prep Papanicolaou smear with manual screeningon 06-01-2022 Thin prep Papanicolaou smear with manual screening 36 U/L 15-37 [facility] Work Phone: Thin prep Papanicolaou smear with manual screening 8 5-15 [facility] Work Phone: Urine blood detectionon - RBC Ql (U) 50 /ul Negative [facility] Work Phone: [phone] RBC Ql (U) 0 SEEN /hpf 0-5 [facility] Work Phone: [phone] Urine clarityon 06-01-2022 Clarity (U) Clear Clear [facility] Work Phone: [phone] Urine color determinationon 06-01-2022 Color (U) Yellow Yellow [facility] Work Phone: [phone] Urine glucose detectionon Glucose Ql (U) Normal mg/dl Normal [facility] Work Phone: [phone] Urine leukocyte esterase det ection by dipstickon 06-01-2022 Leukocyte esterase Test strip Ql (U) Negative Negative [facility] Work Phone: Urine pHon 06-01-2022 pH (U) 6.5 [pH] 5.0 - 8.0 [facility] Work Phone: Urine sediment bacteria coun t by microscopy (number/high power field)on 06-01-2022 Bacteria LM.HPF (Urine sed) [#/Area] 0 /[HPF] None Seen [facility] Work Phone: Urine specific gravity measu rementon 06-01-2022 Specific gravity (U) [Rel density] 1.010 1.002-1.03 0 [facility] Work Phone: Urobilinogen Auto test strip Ql (U)on 06-01-2022 Urobilinogen Ql (U) 1 mg/dl Normal [facility] Work Phone: Absolute lymphocyte counton 05-27-2022 Lymphocytes Auto (Unsp spec) [#/Vol] 1.16 10*3/uL 0.83-4.51 [facility] Work Phone: Basophil percentageon 2021 Basophils/100 WBC (Bld) 0.8 % 0-1 [facility] Work Phone: Bilirubin [Mass/Vol] 0.50 mg/dL 0.20-1.00 [facility] Work Phone: Comment on above: For patients on eltr ombopag therapy, use of Dimension [place] TBIL is not recommended. Chloride [Moles/Vol] 102 mmol/L 98-107 [facility] Work Phone: Eosinophils/100 WBC (Bld) 5.8 % 0-5 [facility] Work Phone: Glucose [Mass/Vol] 118 mg/dL 74-106 [facility] Work Phone: Comment on above: Fasting Glucose resu lt from 100 to 125 mg/dL suggests IMPAIRED HOMEOSTASIS per A.D.A. criteria. Neutrophils (Bld) [#/Vol] 3.1 10*3/uL 2.0-7.7 [facility] Work Phone: Neutrophils/100 WBC (Bld) 61.0 % 47-70 [facility] Work Phone: [phone] Potassium [Moles/Vol] 3.8 mmol/L 3.5-5.1 [facility] Work Phone: [phone] Protein [Mass/Vol] 7.7 g/dL 6.4-8.2 [facility] Work Phone: [phone] Sodium [Moles/Vol] 136 mmol/L 136-145 [facility] Work Phone: [phone] WBC (Bld) [#/Vol] 5.0 10*3/uL 4.4-11.0 [facility] Work Phone: [phone] Blood erythrocytes count (nu mber/volume)on 05-27-2022 RBC (Bld) [#/Vol] 3.63 10*6/uL 4.2-5.4 [facility] Work Phone: [phone] Blood hemoglobin measurement (mass/volume)on 05-27-2022 Hemoglobin (Bld) [Mass/Vol] 11.5 g/dL 12.0-15.0 [facility] Work Phone: [phone] Blood lymphocytes/100 leukoc yteson 05-27-2022 Lymphocytes/100 WBC (Bld) 23.2 % 19-41 [facility] Work Phone: [phone] Blood monocytes/100 leukocyt eson 05-27-2022 Monocytes/100 WBC (Bld) 8.8 % 0-10 [facility] Work Phone: [phone] Blood platelet mean volumeon 05-27-2022 Platelet mean volume (Bld) [Entitic vol] 10.6 fL 6.2-12.0 [facility] Work Phone: [phone] Determination of erythrocyte mean corpuscular volume (MCV)on 05-27-2022 MCV (RBC) [Entitic vol] 95.6 fL 81-99 [facility] Work Phone: [phone] Hematocrit Auto (Bld) [Volum e fraction]on 05-27-2022 Hematocrit (Bld) [Volume fraction] 34.7 % 37-47 [facility] Work Phone: [phone] Laboratory - Chemistry and C hemistry - challengeon 05-27-2022 ALP [Catalytic activity/Vol] 95 U/L 45-117 [facility] Work Phone: [phone] ALT [Catalytic activity/Vol] 30 U/L 13-56 [facility] Work Phone: [phone] CO2 [Moles/Vol] 27.0 mmol/L 21.0-32.0 [facility] Work Phone: [phone] Globulin (S) [Mass/Vol] 4.1 g/dL 2.2-4.2 [facility] Work Phone: [phone] Urea nitrogen/Creatinine [Mass ratio] 20.7 mg/mg 10-20 [facility] Work Phone: [phone] Laboratory - Hematology and Cell countson 05-27-2022 Erythrocyte distribution width (RBC) [Entitic vol] 49.4 fL 35.1-43.9 [facility] Work Phone: [phone] Erythrocyte distribution width (RBC) [Ratio] 14.3 % 11.6-14.6 [facility] Work Phone: [phone] Immature granulocytes/100 WBC (Bld) 0.400 % 0.0-0.9 [facility] Work Phone: [phone] Comment on above: IG% - Immature Granu locytes (promyelocytes, myelocytes and metamyelocytes) > 1% indicates that a LEFT SHIFT is Present. MCH (RBC) [Entitic mass] 31.7 pg 27.0-32.0 [facility] Work Phone: [phone] Nucleated RBC/100 WBC (Bld) [Ratio] 0 % 0-5 [facility] Work Phone: [phone] MCHC Auto (RBC) [Mass/Vol]on 05-27-2022 MCHC (RBC) [Mass/Vol] 33.1 g/dL 32-36 [facility] Work Phone: [phone] Panel Informationon 05-27 Estimated GFR (MDRD) Amer 75 mL/min >60 [facility] Work Phone: Comment on above: GFR Calc Estimated GFR (MDRD) Non-Af Amer 62 mL/min >60 [facility] Work Phone: Comment on above: Non- GFR Calc Platelets bldon 05-27-2022 Platelets (Bld) [#/Vol] 214 10*3/uL 150-450 [facility] Work Phone: Serum or plasma albumin nic urement (mass/volume)on 05-27-2022 Albumin [Mass/Vol] 3.6 g/dL 3.2-5.0 [facility] Work Phone: Serum or plasma albumin/glob ulin mass ratioon 05-27-2022 Albumin/Globulin [Mass ratio] 0.9 {ratio} 0.9-2.4 [facility] Work Phone: Serum or plasma calcium nic urement (mass/volume)on 05-27-2022 Calcium [Mass/Vol] 9.0 mg/dL 8.5-10.1 [facility] Work Phone: Serum or plasma creatinine m easurement (mass/volume)on 05-27-2022 Creatinine [Mass/Vol] 0.92 mg/dL 0.55-1.02 [facility] Work Phone: Comment on above: The validity of the calculated GFR & GFRAA in patients over 70 years has not been determined. Clinical correlation is essential. Serum or plasma urea nitroge n measurement (mass/volume)on 05-27-2022 Urea nitrogen [Mass/Vol] 19 mg/dL 7-18 [facility] Work Phone: [phone] Thin prep Papanicolaou smear with manual screeningon 05-27-2022 Thin prep Papanicolaou smear with manual screening 27 U/L 15-37 [facility] Work Phone: Thin prep Papanicolaou smear with manual screening 7 5-15 [facility] Work Phone: [phone] Absolute lymphocyte counton 03-07-2022 Lymphocytes Auto (Unsp spec) [#/Vol] 1.20 10*3/uL 0.83-4.51 [facility] Work Phone: Basophil percentageon 2021 Basophils/100 WBC (Bld) 0.5 % 0-1 [facility] Work Phone: Bilirubin [Mass/Vol] 0.40 mg/dL 0.20-1.00 [facility] Work Phone: Comment on above: For patients on eltr ombopag therapy, use of Dimension [place] TBIL is not recommended. Chloride [Moles/Vol] 103 mmol/L 98-107 [facility] Work Phone: Eosinophils/100 WBC (Bld) 5.4 % 0-5 [facility] Work Phone: Glucose [Mass/Vol] 113 mg/dL 74-106 [facility] Work Phone: Comment on above: Fasting Glucose resu lt from 100 to 125 mg/dL suggests IMPAIRED HOMEOSTASIS per A.D.A. criteria. Neutrophils (Bld) [#/Vol] 3.6 10*3/uL 2.0-7.7 [facility] Work Phone: Neutrophils/100 WBC (Bld) 63.7 % 47-70 [facility] Work Phone: Potassium [Moles/Vol] 3.9 mmol/L 3.5-5.1 [facility] Work Phone: Protein [Mass/Vol] 7.7 g/dL 6.4-8.2 [facility] Work Phone: Sodium [Moles/Vol] 136 mmol/L 136-145 [facility] Work Phone: WBC (Bld) [#/Vol] 5.7 10*3/uL 4.4-11.0 [facility] Work Phone: Blood erythrocytes count (nu mber/volume)on 03-07-2022 RBC (Bld) [#/Vol] 3.71 10*6/uL 4.2-5.4 [facility] Work Phone: Blood hemoglobin measurement (mass/volume)on 03-07-2022 Hemoglobin (Bld) [Mass/Vol] 11.7 g/dL 12.0-15.0 [facility] Work Phone: Blood lymphocytes/100 leukoc yteson 03-07-2022 Lymphocytes/100 WBC (Bld) 21.1 % 19-41 [facility] Work Phone: [phone] Blood monocytes/100 leukocyt eson 03-07-2022 Monocytes/100 WBC (Bld) 8.8 % 0-10 [facility] Work Phone: [phone] Blood platelet mean volumeon 03-07-2022 Platelet mean volume (Bld) [Entitic vol] 11.2 fL 6.2-12.0 [facility] Work Phone: Determination of erythrocyte mean corpuscular volume (MCV)on 03-07-2022 MCV (RBC) [Entitic vol] 96.2 fL 81-99 [facility] Work Phone: [phone] Hematocrit Auto (Bld) [Volum e fraction]on 03-07-2022 Hematocrit (Bld) [Volume fraction] 35.7 % 37-47 [facility] Work Phone: Laboratory - Chemistry and C hemistry - challengeon 03-07-2022 ALP [Catalytic activity/Vol] 86 U/L 45-117 [facility] Work Phone: [phone] ALT [Catalytic activity/Vol] 34 U/L 13-56 [facility] Work Phone: [phone] CO2 [Moles/Vol] 26.0 mmol/L 21.0-32.0 [facility] Work Phone: [phone] Globulin (S) [Mass/Vol] 3.9 g/dL 2.2-4.2 [facility] Work Phone: [phone] Urea nitrogen/Creatinine [Mass ratio] 21.7 mg/mg 10-20 [facility] Work Phone: [phone] Laboratory - Hematology and Cell countson 03-07-2022 Erythrocyte distribution width (RBC) [Entitic vol] 48.7 fL 35.1-43.9 [facility] Work Phone: [phone] Erythrocyte distribution width (RBC) [Ratio] 14.2 % 11.6-14.6 [facility] Work Phone: [phone] Immature granulocytes/100 WBC (Bld) 0.500 % 0.0-0.9 [facility] Work Phone: [phone] Comment on above: IG% - Immature Granu locytes (promyelocytes, myelocytes and metamyelocytes) > 1% indicates that a LEFT SHIFT is Present. MCH (RBC) [Entitic mass] 31.5 pg 27.0-32.0 [facility] Work Phone: [phone] Nucleated RBC/100 WBC (Bld) [Ratio] 0 % 0-5 [facility] Work Phone: [phone] MCHC Auto (RBC) [Mass/Vol]on 03-07-2022 MCHC (RBC) [Mass/Vol] 32.8 g/dL 32-36 [facility] Work Phone: No Panel Informationon 03-07 Estimated GFR (MDRD) Amer 71 mL/min >60 [facility] Work Phone: Comment on above: GFR Calc Estimated GFR (MDRD) Non-Af Amer 59 mL/min >60 [facility] Work Phone: Comment on above: Non- GFR Calc Platelets bldon 03-07-2022 Platelets (Bld) [#/Vol] 203 10*3/uL 150-450 [facility] Work Phone: [phone] Serum or plasma albumin nic urement (mass/volume)on 03-07-2022 Albumin [Mass/Vol] 3.8 g/dL 3.2-5.0 [facility] Work Phone: [phone] Serum or plasma albumin/glob ulin mass ratioon 03-07-2022 Albumin/Globulin [Mass ratio] 1.0 {ratio} 0.9-2.4 [facility] Work Phone: [phone] Serum or plasma calcium nic urement (mass/volume)on 03-07-2022 Calcium [Mass/Vol] 9.0 mg/dL 8.5-10.1 [facility] Work Phone: Serum or plasma creatinine m easurement (mass/volume)on 03-07-2022 Creatinine [Mass/Vol] 0.97 mg/dL 0.55-1.02 [facility] Work Phone: Comment on above: The validity of the calculated GFR & GFRAA in patients over 70 years has not been determined. Clinical correlation is essential. Serum or plasma urea nitroge n measurement (mass/volume)on 03-07-2022 Urea nitrogen [Mass/Vol] 21 mg/dL 7-18 [facility] Work Phone: Thin prep Papanicolaou smear with manual screeningon 03-07-2022 Thin prep Papanicolaou smear with manual screening 21 U/L 15-37 [facility] Work Phone: Thin prep Papanicolaou smear with manual screening 7 5-15 [facility] Work Phone: LAN SCREENINGon 01-09-2022 [facility] Absolute lymphocyte counton 12-04-2021 Lymphocytes Auto (Unsp spec) [#/Vol] 1.32 10*3/uL 0.83-4.51 [facility] Work Phone: Basophil percentageon 2021 Cholesterol [Mass/Vol] 152 mg/dL <200 [facility] Comment on above: <200 mg/dL Desirable 200-240 mg/dL Borderline >240 mg/dL High Risk Triglyceride [Mass/Vol] 160 mg/dL [facility] Comment on above: The drugs N-Acetylcy steine and Metamizole may falsely depress this assay.Serum Triglycerides Reference Interval Normal <150 mg/dL Borderline high 150 - 199 mg/dL High 200 - 499 mg/dL Very High > or = 500 mg/dL Basophils/100 WBC (Bld) 0.9 % 0-1 [facility] Work Phone: Bilirubin [Mass/Vol] 0.50 mg/dL 0.20-1.00 [facility] Work Phone: Comment on above: For patients on eltr ombopag therapy, use of Dimension [place] TBIL is not recommended. Chloride [Moles/Vol] 102 mmol/L 98-107 [facility] Eosinophils/100 WBC (Bld) 5.7 % 0-5 [facility] Work Phone: Glucose [Mass/Vol] 82 mg/dL 74-106 [facility] Neutrophils (Bld) [#/Vol] 3.7 10*3/uL 2.0-7.7 [facility] Work Phone: Neutrophils/100 WBC (Bld) 63.1 % 47-70 [facility] Work Phone: Potassium [Moles/Vol] 4.1 mmol/L 3.5-5.1 [facility] Protein [Mass/Vol] 7.9 g/dL 6.4-8.2 [facility] Sodium [Moles/Vol] 136 mmol/L 136-145 [facility] WBC (Bld) [#/Vol] 5.8 10*3/uL 4.4-11.0 [facility] Work Phone: Blood erythrocytes count (nu mber/volume)on 12-04-2021 RBC (Bld) [#/Vol] 3.60 10*6/uL 4.2-5.4 [facility] Work Phone: Blood hemoglobin measurement (mass/volume)on 12-04-2021 Hemoglobin (Bld) [Mass/Vol] 11.1 g/dL 12.0-15.0 [facility] Work Phone: Blood lymphocytes/100 leukoc yteson 12-04-2021 Lymphocytes/100 WBC (Bld) 22.6 % 19-41 [facility] Work Phone: Blood monocytes/100 leukocyt eson 12-04-2021 Monocytes/100 WBC (Bld) 7.5 % 0-10 [facility] Work Phone: Blood platelet mean volumeon 12-04-2021 Platelet mean volume (Bld) [Entitic vol] 10.8 fL 6.2-12.0 [facility] Work Phone: CMP (EXTERNAL)on 12-04-2021 Alk Phos Total 86 U/L 45 - 117 U/L [facility] AST [Catalytic activity/Vol] 21 U/L 8 - 37 U/L [facility] Bili Total 0.50 mg/dL 0.2 - 1 mg/dL [facility] GFR AFR AMER 79 mL/MIN [facility] GFR/1.73 sq M.predicted among non-blacks MDRD (S/P/Bld) [Vol rate/Area] 66 mL/min/{1.73_m2} [facility] GLOBULIN 4.2 [facility] Determination of erythrocyte mean corpuscular volume (MCV)on 12-04-2021 MCV (RBC) [Entitic vol] 92.2 fL 81-99 [facility] Work Phone: Hematocrit Auto (Bld) [Volum e fraction]on 12-04-2021 Hematocrit (Bld) [Volume fraction] 33.2 % 37-47 [facility] Work Phone: LIPID PANEL (EXTERNAL)on HDC-L 52 mg/dL Abnormal 41 mg/dL [facility] LDL Chol, calculated 68 MG/DL 130 MG/DL [facility] VLDL 32 Ratio 10 - 38 Ratio [facility] Laboratory - Chemistry and C hemistry - challengeon 12-04-2021 ALP [Catalytic activity/Vol] 86 U/L 45-117 [facility] Work Phone: ALT [Catalytic activity/Vol] 31 U/L 13-56 [facility] CO2 [Moles/Vol] 28.0 mmol/L 21.0-32.0 [facility] Globulin (S) [Mass/Vol] 4.2 g/dL 2.2-4.2 [facility] Work Phone: Urea nitrogen/Creatinine [Mass ratio] 21.6 mg/mg 10-20 [facility] Work Phone: Laboratory - Hematology and Cell countson 12-04-2021 Erythrocyte distribution width (RBC) [Entitic vol] 47.9 fL 35.1-43.9 [facility] Work Phone: Erythrocyte distribution width (RBC) [Ratio] 14.4 % 11.6-14.6 [facility] Work Phone: Immature granulocytes/100 WBC (Bld) 0.200 % 0.0-0.9 [facility] Work Phone: Comment on above: IG% - Immature Granu locytes (promyelocytes, myelocytes and metamyelocytes) > 1% indicates that a LEFT SHIFT is Present. MCH (RBC) [Entitic mass] 30.8 pg 27.0-32.0 [facility] Work Phone: Nucleated RBC/100 WBC (Bld) [Ratio] 0 % 0-5 [facility] Work Phone: [phone] MCHC Auto (RBC) [Mass/Vol]on 12-04-2021 MCHC (RBC) [Mass/Vol] 33.4 g/dL 32-36 [facility] Work Phone: No Panel Informationon 12-04 Estimated GFR (MDRD) Amer 79 mL/min >60 [facility] Work Phone: Comment on above: GFR Calc Estimated GFR (MDRD) Non-Af Amer 66 mL/min >60 [facility] Work Phone: Comment on above: Non- GFR Calc Platelets bldon 12-04-2021 Platelets (Bld) [#/Vol] 212 10*3/uL 150-450 [facility] Work Phone: [phone] Serum or plasma albumin nic urement (mass/volume)on 12-04-2021 Albumin [Mass/Vol] 3.7 g/dL 3.2-5.0 [facility] Serum or plasma albumin/glob ulin mass ratioon 12-04-2021 Albumin/Globulin [Mass ratio] 0.9 {ratio} 0.9-2.4 [facility] Serum or plasma calcium nic urement (mass/volume)on 12-04-2021 Calcium [Mass/Vol] 9.0 mg/dL 8.5-10.1 [facility] Serum or plasma cholesterol in HDL measurement (mass/volume)on 12-04-2021 Cholesterol in HDL [Mass/Vol] 52 mg/dL [facility] Work Phone: Comment on above: The drugs N-Acetylcy steine and Metamizole may falsely depress this assay. Reference Range HDL <40 mg/dL Low HDL Cholesterol HDL >or= 60 mg/dL High HDL Cholesterol Serum or plasma cholesterol in VLDL measurement (mass/volume)on 12-04-2021 Cholesterol in VLDL [Mass/Vol] 32 mg/dL 5-40 [facility] Work Phone: [phone] Serum or plasma creatinine m easurement (mass/volume)on 12-04-2021 Creatinine [Mass/Vol] 0.88 mg/dL 0.55-1.02 [facility] Comment on above: The validity of the calculated GFR & GFRAA in patients over 70 years has not been determined. Clinical correlation is essential. Serum or plasma low density lipoprotein (LDL) cholesterol measurement (mass/volume)on 12-04-2021 Cholesterol in LDL [Mass/Vol] 68 mg/dL 0-130 [facility] Work Phone: [phone] Serum or plasma urea nitroge n measurement (mass/volume)on 12-04-2021 Urea nitrogen [Mass/Vol] 19 mg/dL 7-18 [facility] Thin prep Papanicolaou smear with manual screeningon 12-04-2021 Thin prep Papanicolaou smear with manual screening 21 U/L 15-37 [facility] Work Phone: [phone] Thin prep Papanicolaou smear with manual screening 6 5-15 [facility] Work Phone: [phone] Bacteria identified Anaer cx Nom (Unsp spec) Anaerobic Culture Anaerobic cocci [facility] Work Phone: [phone] Bacteria identified Cx Nom ( Wound) Wound Culture Streptococcus group C [facility] Work Phone: [phone] Wound Culture Staphylococcus aureus [facility] Work Phone: [phone] Culture, urine Bacteria identified Cx Nom (U) Culture exhibits no growth. [facility] Work Phone: [phone] Gram stain for investigation of transfusion reaction Microscopic observation Gram stain Nom (Unsp spec) [facility] Work Phone: Laboratory - Microbiology an d Antimicrobial susceptibility Bacteria identified Cx Nom (Bld) No growth in 5 days. [facility] Work Phone: Vital Signs Date Time Vital Sign Value Performing Clinician Ilene odom 01-11-2025 13:58-0400 Body mass index (BMI) [Ratio] 29.05 kg/m2 Lianet Sullivan MD Work Phone: [facility] 01-11-2025 13:58-0400 Body weight 81.65 kg Lianet Sullivan MD Work Phone: [facility] 01-11-2025 13:58-0400 Diastolic blood pressure 60 mm[Hg] Lianet Sullivan MD Work Phone: [facility] 01-11-2025 13:58-0400 Heart rate 68 /min Lianet Sullivan MD Work Phone: [facility] 01-11-2025 13:58-0400 Respiratory rate 12 /min Lianet Sullivan MD Work Phone: [facility] 01-11-2025 13:58-0400 SaO2% (BldA) [Mass fraction] 98 % Lianet Sullivan MD Work Phone: [facility] 01-11-2025 13:58-0400 Systolic blood pressure 110 mm[Hg] Lianet Sullivan MD Work Phone: [facility] 01-07-2025 17:00-0400 Diastolic blood pressure 67 mm[Hg] Ambrose Liu DPM Work Phone: [facility] 01-07-2025 17:00-0400 Respiratory rate 16 /min Ambrose Liu DPM Work Phone: [facility] 01-07-2025 17:00-0400 Systolic blood pressure 132 mm[Hg] Ambrose Chobobbyn DPM Work Phone: [facility] 01-07-2025 15:30-0400 Heart rate 60 /min Ambrose Liu DPM Work Phone: [facility] 01-07-2025 15:30-0400 SaO2% (BldA) [Mass fraction] 97 % Ambrose Liu DPM Work Phone: [facility] 01-07-2025 14:47-0400 Body temperature 97.81 [degF] Ambrose Liu DPM Work Phone: [facility] 01-07-2025 10:12-0400 Body height 167.6 cm Ambrose Carlislen DPM Work Phone: [facility] 01-07-2025 10:12-0400 Body mass index (BMI) [Ratio] 29.88 kg/m2 Ambrose Liu DPM Work Phone: [facility] 01-07-2025 10:12-0400 Body weight 83.96 kg Ambrose Liu DPM Work Phone: [facility] 11-25-2024 13:10-0500 Diastolic blood pressure 63 mm[Hg] Antolin Coombs [employer] Work Phone: [facility] 11-25-2024 13:10-0500 Heart rate 69 /min Antolin Coombs [employer] Work Phone: [facility] 11-25-2024 13:10-0500 Respiratory rate 16 /min Antolin Coombs [employer] Work Phone: [facility] 11-25-2024 13:10-0500 Systolic blood pressure 107 mm[Hg] Antolin Coombs [employer] Work Phone: [facility] 07-12-2024 12:13-0400 Body mass index (BMI) [Ratio] 37.03 kg/m2 Lianet Sullivan MD Work Phone: [facility] 07-12-2024 12:13-0400 Body temperature 96.4 [degF] Lianet Sullivan MD Work Phone: [facility] 07-12-2024 12:13-0400 Body weight 88.9 kg Lianet Sullivan MD Work Phone: [facility] 07-12-2024 12:13-0400 Diastolic blood pressure 60 mm[Hg] Lianet Sullivan MD Work Phone: [facility] 07-12-2024 12:13-0400 Heart rate 60 /min Lianet Sullivan MD Work Phone: [facility] 07-12-2024 12:13-0400 Respiratory rate 16 /min Lianet Sullivan MD Work Phone: [facility] 07-12-2024 12:13-0400 SaO2% (BldA) [Mass fraction] 97 % Lianet Sullivan MD Work Phone: [facility] 07-12-2024 12:13-0400 Systolic blood pressure 118 mm[Hg] Lianet Sullivan MD Work Phone: [facility] 04-28-2024 13:13-0400 Diastolic blood pressure 52 mm[Hg] Sho Damion [employer] Work Phone: [facility] 04-28-2024 13:13-0400 Heart rate 60 /min Sho Damion [employer] Work Phone: [facility] 04-28-2024 13:13-0400 SaO2% (BldA) [Mass fraction] 97 % Sho Damion [employer] Work Phone: [facility] 04-28-2024 13:13-0400 Systolic blood pressure 114 mm[Hg] Sho Damion [employer] Work Phone: [facility] 03-08-2024 14:36-0400 Body temperature 98.49 [degF] Lianet Sullivan MD Work Phone: [facility] 03-08-2024 14:36-0400 Diastolic blood pressure 59 mm[Hg] Lianet Sullivan MD Work Phone: [facility] 03-08-2024 14:36-0400 Heart rate 70 /min Lianet Sullivan MD Work Phone: [facility] 03-08-2024 14:36-0400 Respiratory rate 18 /min Lianet Sullivan MD Work Phone: [facility] 03-08-2024 14:36-0400 SaO2% (BldA) [Mass fraction] 96 % Lianet Sullivan MD Work Phone: [facility] 03-08-2024 14:36-0400 Systolic blood pressure 102 mm[Hg] Lianet Sullivan MD Work Phone: [facility] 01-11-2024 07:03-0400 Blood Pressure Cuff Size DAISY BARBER MD [facility] 01-11-2024 07:03-0400 Blood Pressure Location DAISY BARBER MD [facility] 01-11-2024 07:03-0400 Blood Pressure Method DAISY WITT MD [facility] 01-11-2024 07:03-0400 Body temperature 97.88 [degF] DAISY BARBER MD [facility] 01-11-2024 07:03-0400 Diastolic Blood Pressure Non-Invasive 62 mm[Hg] DAISY BARBER MD [facility] 01-11-2024 07:03-0400 Heart rate 50 /min DAISY BARBER MD [facility] 01-11-2024 07:03-0400 Reason For Taking VItal Signs DAISY BARBER MD [facility] 01-11-2024 07:03-0400 Respiratory rate 16 /min DAISY BARBER MD [facility] 01-11-2024 07:03-0400 Systolic Blood Pressure Non-Invasive 135 mm[Hg] DAISY BARBER MD [address] [place] [id number] 01-11-2024 05:15-0400 Reason For Taking VItal Signs DAISY BARBER MD [address] [place] [address] 01-11-2024 04:20-0400 Blood Pressure Method DAISY WITT MD [address] [place] [address] 01-11-2024 04:20-0400 Diastolic Blood Pressure Non-Invasive 59 mm[Hg] DAISY BARBER MD [address] [place] [address] 01-11-2024 04:20-0400 Heart rate 40 /min DAISY BARBER MD [address] [place] [address] 01-11-2024 04:20-0400 Mean blood pressure 86 mm[Hg] DAISY BARBER MD [address] [place] [address] 01-11-2024 04:20-0400 Reason For Taking VItal Signs DAISY BARBER MD [address] [place] [address] 01-11-2024 04:20-0400 Respiratory rate 16 /min DAISY BARBER MD [address] [place] [address] 01-11-2024 04:20-0400 Systolic Blood Pressure Non-Invasive 154 mm[Hg] DAISY BARBER MD [address] [place] [address] 01-11-2024 03:12-0400 Blood Pressure Cuff Size DAISY BARBER MD [address] [place] [address] 01-11-2024 03:12-0400 Blood Pressure Location DAISY BARBER MD [address] [place] [address] 01-11-2024 03:12-0400 Blood Pressure Method DAISY WITT MD [address] 01-11-2024 03:12-0400 Body temperature 97.52 [degF] DAISY BARBER MD [address] [place] [address] 01-11-2024 03:12-0400 Diastolic Blood Pressure Non-Invasive 58 mm[Hg] DAISY BARBER MD [address] [place] [address] 01-11-2024 03:12-0400 Heart rate 40 /min DAISY BARBER MD [address] [place] [address] 01-11-2024 03:12-0400 Respiratory rate 18 /min DAISY BARBER MD [address] [place] [address] 01-11-2024 03:12-0400 Systolic Blood Pressure Non-Invasive 168 mm[Hg] DAISY BARBER MD [address] [place] [address] 01-10-2024 22:30-0400 Blood Pressure Location DAISY BARBER MD [address] [place] [address] 01-10-2024 22:30-0400 Body temperature 98.06 [degF] DAISY BARBER MD [address] [place] [address] 01-10-2024 22:30-0400 Heart rate 40 /min DAISY BARBER MD [address] [place] [address] 01-10-2024 19:12-0400 Mean blood pressure 61 mm[Hg] DAISY BARBER MD [address] [place] [address] 01-10-2024 19:03-0400 Heart rate 49 /min DAISY BARBER MD [address] [place] [address] 01-10-2024 19:03-0400 Mean blood pressure 59 mm[Hg] DAISY BARBER MD [address] [place] [address] 01-10-2024 15:47-0400 Blood Pressure Cuff Size DAISY BARBER MD [address] [place] [address] 01-10-2024 15:47-0400 Heart rate 42 /min DAISY BARBER MD [address] [place] [address] 01-05-2024 16:01-0400 Diastolic blood pressure 60 mm[Hg] DAISY BARBER MD [address] [place] [address] 01-05-2024 16:01-0400 Mean blood pressure 94 mm[Hg] DAISY BARBER MD [address] [place] [address] 01-05-2024 16:01-0400 Systolic blood pressure 163 mm[Hg] DAISY BARBER MD [address] [place] [address] 01-05-2024 15:00-0400 Diastolic blood pressure 54 mm[Hg] DAISY BARBER MD [address] [place] [address] 01-05-2024 15:00-0400 Mean blood pressure 83 mm[Hg] DAISY BARBER MD [address] [place] [address] 01-05-2024 15:00-0400 Systolic blood pressure 145 mm[Hg] DAISY BARBER MD [address] [place] [address] 01-05-2024 14:01-0400 Diastolic blood pressure 51 mm[Hg] DAISY BARBER MD [address] [place] [address] 01-05-2024 14:01-0400 Mean blood pressure 75 mm[Hg] DAISY BARBER MD [address] [place] [address] 01-05-2024 14:01-0400 Systolic blood pressure 135 mm[Hg] DAISY BARBER MD [address] [place] [address] 12-31-2023 12:33-0400 Body temperature 97.88 [degF] DAISY BARBER MD [address] [place] [address] 12-31-2023 12:01-0400 Body temperature 96.8 [degF] DAISY BARBER MD [address] [place] [address] 12-31-2023 11:04-0400 Body temperature 96.8 [degF] DAISY BARBER MD [address] [place] [address] 12-31-2023 10:03-0400 Body temperature 96.8 [degF] DAISY BARBER MD [address] [place] [address] 12-31-2023 09:55-0400 Body temperature 96.8 [degF] DAISY BARBER MD [address] [place] [address] 12-31-2023 09:55-0400 Respiratory Rate - Anes 10 br/min DAISY BARBER MD [address] [place] [address] 12-31-2023 09:50-0400 Respiratory Rate - Anes 9 br/min DAISY BARBER MD [address] [place] [address] 12-31-2023 09:45-0400 Body temperature 96.8 [degF] DAISY BARBER MD [address] [place] [address] 12-31-2023 09:45-0400 Respiratory Rate - Anes 12 br/min DAISY BARBER MD [address] [place] [address] 12-31-2023 09:30-0400 Body temperature 96.8 [degF] DAISY BARBER MD [address] [place] [address] 12-31-2023 06:33-0400 Heart rate 52 /min DAISY BARBER MD [address] [place] [address] 12-31-2023 04:46-0400 Heart rate 51 /min DAISY BARBER MD [address] [place] [address] 12-29-2023 18:12-0400 Heart rate 59 /min DAISY BARBER MD [address] [place] [address] 12-28-2023 17:19-0400 Body height 170.2 cm DAISY BARBER MD [facility] 12-28-2023 17:190400 Body weight 89.6 kg DAISY BARBER MD [facility] 12-28-2023 17:190400 Body weight 30.93 kg/m2 DAISY BARBER MD [facility] 12-28-2023 02:05-0400 Body weight 89.6 kg DAISY BARBER MD [facility] 01-03-2023 15:49-0400 Body temperature 97.81 [degF] Lianet Sullivan MD Work Phone: [facility] 01-03-2023 15:49-0400 Body weight 85.28 kg Lianet Sullivan MD Work Phone: [facility] 01-03-2023 15:49-0400 Diastolic blood pressure 74 mm[Hg] Lianet Sullivan MD Work Phone: [facility] 01-03-2023 15:49-0400 Heart rate 68 /min Lianet Sullivan MD Work Phone: [facility] 01-03-2023 15:49-0400 Respiratory rate 18 /min Lianet Sullivan MD Work Phone: [facility] 01-03-2023 15:49-0400 SaO2% (BldA) [Mass fraction] 99 % Lianet Sullivan MD Work Phone: [facility] 01-03-2023 15:49-0400 Systolic blood pressure 118 mm[Hg] Lianet Sullivan MD Work Phone: [facility] 10-09-2022 11:20-0500 Body height 170.[address] Lianet Sullivan Work Phone: [facility] 10-09-2022 11:20-0500 Body mass index (BMI) [Ratio] 29.8 kg/m2 Dr. Lianet Sullivan Work Phone: 6(111)[phone] [place] [address] 10-09-2022 11:20-0500 Body temperature 96.2 [degF] Dr. Lianet Sullivan Work Phone: 7(937)[phone] [place] [address] 10-09-2022 11:20-0500 Body weight 86.[address] Lianet Sullivan Work Phone: 9(867)[phone] [place] [address] 10-09-2022 11:20-0500 Diastolic blood pressure 62 mm[Hg] Dr. Lianet Sullivan Work Phone: 1(228)838-256362 [place] [address] 10-09-2022 11:20-0500 Heart rate 64 /min Dr. Lianet Sullivan Work Phone: 8(171)[phone] [place] [address] 10-09-2022 11:20-0500 Respiratory rate 18 /min Dr. Lianet Sullivan Work Phone: 2(468)288-229662 [place] [address] 10-09-2022 11:20-0500 SaO2% (BldA) [Mass fraction] 96 % Dr. Lianet Sullivan Work Phone: 3(703)438-526262 [place] [address] 10-09-2022 11:20-0500 Systolic blood pressure 135 mm[Hg] Dr. Lianet Sullivan Work Phone: 6(320)770-138562 [place] [address] 07-31-2022 15:13-0400 Body height 170.[address] Lianet Sullivan Work Phone: 7(436)[phone] [place] [address] Work Phone: 07-31-2022 15:13-0400 Body mass index (BMI) [Ratio] 29.2 kg/m2 Dr. Lianet Sullivan Work Phone: 1(732)098-589962 [place] [address] 07-31-2022 15:13-0400 Body weight 84.[address] Lianet Sullivan Work Phone: 9(632)805-041362 [place] [address] 07-31-2022 15:13-0400 Diastolic blood pressure 71 mm[Hg] Dr. Lianet Sullivan Work Phone: 5(180)698-535262 [place] [address] 07-31-2022 15:13-0400 Heart rate 68 /min Dr. Lianet Sullivan Work Phone: [facility] 07-31-2022 15:13-0400 Respiratory rate 16 /min Dr. Lianet Sullivan Work Phone: [facility] 07-31-2022 15:13-0400 SaO2% (BldA) [Mass fraction] 95 % Dr. Lianet Sullivan Work Phone: [facility] 07-31-2022 15:13-0400 Systolic blood pressure 147 mm[Hg] Dr. Lianet Sullivan Work Phone: [facility] 07-05-2022 13:49-0400 Body temperature 98.2 [degF] Antolin Coombs [employer] Work Phone: [facility] 07-05-2022 13:49-0400 Body weight 85.28 kg Antolin Coombs [employer] Work Phone: [facility] 07-05-2022 13:49-0400 Diastolic blood pressure 66 mm[Hg] Antolin Coombs [employer] Work Phone: [facility] 07-05-2022 13:49-0400 Heart rate 70 /min Antolin Coombs [employer] Work Phone: [facility] 07-05-2022 13:49-0400 Respiratory rate 14 /min Antolin Coombs [employer] Work Phone: [facility] 07-05-2022 13:49-0400 SaO2% (BldA) [Mass fraction] 98 % Antolin Coombs [employer] Work Phone: [facility] 07-05-2022 13:49-0400 Systolic blood pressure 126 mm[Hg] Antolin Coombs [employer] Work Phone: [facility] 06-28-2022 13:51-0400 Diastolic blood pressure 64 mm[Hg] Antolin Coombs [employer] Work Phone: [facility] 06-28-2022 13:51-0400 Systolic blood pressure 136 mm[Hg] Antolin Coombs [employer] Work Phone: [facility] 06-28-2022 13:48-0400 Body weight 85.73 kg Antolin Coombs [employer] Work Phone: [facility] 06-28-2022 13:48-0400 Heart rate 72 /min Antolin Coombs [employer] Work Phone: [facility] 06-28-2022 13:48-0400 Respiratory rate 16 /min Antolin Coombs [employer] Work Phone: [facility] 06-21-2022 14:37-0400 Diastolic blood pressure 62 mm[Hg] Antolin Coombs [employer] Work Phone: [facility] 06-21-2022 14:37-0400 Systolic blood pressure 144 mm[Hg] Antolin Coombs [employer] Work Phone: [facility] 06-21-2022 14:34-0400 Body weight 84.37 kg Antolin Coombs [employer] Work Phone: [facility] 06-21-2022 14:34-0400 Heart rate 76 /min Antolin Coombs [employer] Work Phone: [facility] 06-21-2022 14:34-0400 Respiratory rate 16 /min Antolin Coombs [employer] Work Phone: [facility] 06-17-2022 15:07-0400 Body weight 83.64 kg Radha Zurawick [employer] Work Phone: [facility] 06-17-2022 15:07-0400 Diastolic blood pressure 52 mm[Hg] Radha Zurawick [employer] Work Phone: [facility] 06-17-2022 15:07-0400 Heart rate 72 /min Radha Zurawick [employer] Work Phone: [facility] 06-17-2022 15:07-0400 Respiratory rate 18 /min Radha Zurawick [employer] Work Phone: [facility] 06-17-2022 15:07-0400 Systolic blood pressure 140 mm[Hg] Radha Zurawick [employer] Work Phone: [facility] 06-12-2022 14:45-0400 Body weight 86 kg Radha Zurawick [employer] Work Phone: [facility] 06-12-2022 14:45-0400 Diastolic blood pressure 58 mm[Hg] Radha Zurawick [employer] Work Phone: [facility] 06-12-2022 14:45-0400 Heart rate 60 /min Radha Zurawick [employer] Work Phone: [facility] 06-12-2022 14:45-0400 Respiratory rate 14 /min Radha Zurawick [employer] Work Phone: [facility] 06-12-2022 14:45-0400 Systolic blood pressure 136 mm[Hg] Radha Zurawick [employer] Work Phone: [facility] 06-09-2022 13:19-0400 Body temperature 98.9 [degF] Dr. Lianet Sullivan Work Phone: [facility] Work Phone: 06-09-2022 13:19-0400 Diastolic blood pressure 78 mm[Hg] Dr. Lianet Sullivan Work Phone: [facility] Work Phone: 06-09-2022 13:19-0400 Heart rate 78 /min Dr. Lianet Sullivan Work Phone: [facility] Work Phone: 06-09-2022 13:19-0400 Respiratory rate 16 /min Dr. Lianet Sullivan Work Phone: [facility] Work Phone: 06-09-2022 13:19-0400 SaO2% (BldA) [Mass fraction] 99 % Dr. Lianet Sullivan Work Phone: [facility] Work Phone: 06-09-2022 13:19-0400 Systolic blood pressure 125 mm[Hg] Dr. Lianet Sullivan Work Phone: [facility] Work Phone: 06-09-2022 10:33-0400 Body mass index (BMI) [Ratio] 29.7 kg/m2 Dr. Lianet Sullivan Work Phone: [facility] Work Phone: 06-09-2022 10:33-0400 Body weight 86.[address] Lianet Sullivan Work Phone: [facility] Work Phone: 06-04-2022 13:55-0400 Body temperature 98.3 [degF] Dr. Lianet Sullivan Work Phone: [facility] Work Phone: 06-04-2022 13:55-0400 Diastolic blood pressure 51 mm[Hg] Dr. Lianet Sullivan Work Phone: [facility] Work Phone: 06-04-2022 13:55-0400 Heart rate 68 /min Dr. Lianet Sullivan Work Phone: [facility] Work Phone: 06-04-2022 13:55-0400 Respiratory rate 18 /min Dr. Lianet Sullivan Work Phone: [facility] Work Phone: 06-04-2022 13:55-0400 SaO2% (BldA) [Mass fraction] 97 % Dr. Lianet Sullivan Work Phone: [facility] Work Phone: 06-04-2022 13:55-0400 Systolic blood pressure 120 mm[Hg] Dr. Lianet Sullivan Work Phone: [facility] Work Phone: 06-04-2022 04:02-0400 Body weight 88.[address] Lianet Sullivan Work Phone: [facility] Work Phone: 06-02-2022 23:00-0400 Inhaled oxygen concentration 21 % Dr. Lianet Sullivan Work Phone: [facility] Work Phone: 06-01-2022 13:21-0400 Body mass index (BMI) [Ratio] 31.1 kg/m2 Dr. Lianet Sullivan Work Phone: [facility] Work Phone: 06-01-2022 13:04-0400 Body temperature 102.9 [degF] [facility] Work Phone: 06-01-2022 13:04-0400 Diastolic blood pressure 89 mm[Hg] [facility] Work Phone: 06-01-2022 13:04-0400 Heart rate 86 /min [facility] Work Phone: 06-01-2022 13:04-0400 Inhaled oxygen flow rate 2 L/min [facility] Work Phone: 06-01-2022 13:04-0400 Respiratory rate 20 /min [facility] Work Phone: 06-01-2022 13:04-0400 SaO2% (BldA) [Mass fraction] 96 % [facility] Work Phone: 06-01-2022 13:04-0400 Systolic blood pressure 147 mm[Hg] [facility] Work Phone: 06-01-2022 10:21-0400 Body height 167.64 cm [facility] Work Phone: 06-01-2022 10:21-0400 Body mass index (BMI) [Ratio] 30.7 kg/m2 [facility] Work Phone: 06-01-2022 10:21-0400 Body weight 86.18 kg [facility] Work Phone: 04-12-2022 01:59-0400 Diastolic blood pressure 67 mm[Hg] [facility] Work Phone: 04-12-2022 01:59-0400 Heart rate 65 /min [facility] Work Phone: 04-12-2022 01:59-0400 Respiratory rate 18 /min [facility] Work Phone: 04-12-2022 01:59-0400 SaO2% (BldA) [Mass fraction] 93 % [facility] Work Phone: 04-12-2022 01:59-0400 Systolic blood pressure 155 mm[Hg] [facility] Work Phone: 04-12-2022 00:40-0400 Inhaled oxygen flow rate 2 L/min [facility] Work Phone: 04-11-2022 22:10-0400 Body height 167.64 cm [facility] Work Phone: 04-11-2022 22:10-0400 Body mass index (BMI) [Ratio] 30.7 kg/m2 [facility] Work Phone: 04-11-2022 22:10-0400 Body temperature 97 [degF] [facility] Work Phone: 04-11-2022 22:10-0400 Body weight 86.18 kg [facility] Work Phone: 12-03-2021 15:16-0500 Body weight 90.17 kg Lianet Sullivan MD Work Phone: [facility] 12-03-2021 15:16-0500 Diastolic blood pressure 72 mm[Hg] Lianet Sullivan MD Work Phone: [facility] 12-03-2021 15:16-0500 Heart rate 76 /min Lianet Sullivan MD Work Phone: [facility] 12-03-2021 15:[id number] Systolic blood pressure 124 mm[Hg] Lianet Sullivan MD Work Phone: [facility] Encounters Encounter Date Encounter Type Care Provider Facility Start: 04-22-2025 ambulatory Ambrose Liu Facility:[facility] Start: 03-29-2025 End: 03-29-2025 Refill Lianet Sullivan MD Work Phone: [facility] Comment on above: Refill Request Start: 03-09-2025 End: 03-09-[address] Lianet Sullivan MD Work Phone: [facility] Work Phone: Start: 03-09-2025 End: 03-09-[address] Daisy Barber MD -Radiology [facility] Work Phone: Start: 03-09-2025 End: 03-09-2025 ambulatory Lianet Sullivan Facility:[facility] Start: 02-24-2025 End: 03-08-2025 Telephone encounter Lianet Sullivan MD Work Phone: [facility] Comment on above: Forms Start: 02-01-2025 End: 02-01-2025 ambulatory DAISY BARBER MD Facility:A Start: 02-01-2025 End: 02-01-2025 Patient encounter procedure DAISY BARBER MD [facility] Start: 01-11-2025 End: 01-11-2025 Office outpatient visit 25 minutes Lianet Sullivan MD Work Phone: [facility] [place] Comment on above: Urge incontinence of urine (Primary Dx); Irritable bladder; Osteopenia of neck of right femur; Anxiety state; H/O bee sting allergy; Ulcer of right foot, unspecified ulcer stage (HCC); Encounter for long-term current use of medication; Primary hypertension; Osteoarthrosis multiple sites, 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 generalized; Stage 3a chronic kidney disease (HCC); IFG (impaired fasting glucose) Start: 01-11-2025 End: 01-11-2025 ambulatory LIANET SULLIVAN Facility:[facility] Start: 01-07-2025 ambulatory AMBROSE LIU Facility :[id number] Start: 01-07-2025 End: 01-07-2025 Patient encounter status Ambrose Liu DPM Work Phone: [facility] Work Phone: Start: 01-07-2025 End: 01-07-2025 Subsequent hospital visit by physician Ambrose Liu DPM Work Phone: [facility] Comment on above: Other acute osteomye litis, right ankle and foot (HCC) [M86.171] Start: 01-06-2025 Patient encounter status Ambrose ORANTESM Work Phone: [facility] Start: 12-21-2024 End: 12-21-2024 Home visit Lianet Sullivan MD Work Phone: [facility] [place] Comment on above: Pressure ulcer of ri ght heel, stage 3 (HCC) (Primary Dx) Start: 12-09-2024 End: 02-08-2025 Follow-up encounter Antolin Coombs APRN.CNS Work Phone: [facility] [place] Start: 11-25-2024 End: 11-25-2024 ambulatory ANTOLIN COOMBS Facility:[facility] Start: 11-25-2024 End: 11-25-2024 Office outpatient visit 25 minutes Antolin Coombs APRN.SCENE SHIFTER Work Phone: [facility] [place] Comment on above: S/P foot surgery (Pr imary Dx); Blood loss anemia; Primary hypertension; Encounter for immunization; Screening for depression Start: 11-23-2024 End: 11-23-2024 ambulatory DAISY BARBER MD Facility:[facility] Start: 11-23-2024 End: 11-23-2024 Patient encounter procedure DAISY BARBER MD [facility] Start: 11-17-2024 End: 11-17-[address] Devyn Whitney MD -[facility] Work Phone: Start: 11-17-2024 End: 11-17-2024 ambulatory Lianet D Talampas Facility:[facility] Start: 11-04-2024 End: 11-04-2024 ambulatory Lianet D [place] Facility:[facility] Start: 10-26-2024 ambulatory Devyn Whitney Facility:[facility] Start: 10-06-2024 End: 11-18-2024 ambulatory KRISH BOURGEOIS [facility] Start: 09-30-2024 ambulatory KRISH BOURGEOIS [facility] Start: 09-30-2024 Encounter for genera l adult medical examination without abnormal findings KRISH BOURGEOIS [facility] Start: 09-22-2024 End: 09-22-2024 ambulatory Lianet D [place] Facility:[facility] Start: 09-21-2024 ambulatory Ambrose Liu [facility] [place] Start: 09-18-2024 ambulatory Achintya Reyes Facility :[facility] Start: 09-18-2024 End: 09-29-2024 Evaluation and management of inpatient Achintya Reyes Facility:[facility] Start: 09-13-2024 End: 09-13-2024 ambulatory Lianet D [place] Facility:[facility] Start: 09-09-2024 ambulatory Lianet D [place] Facilit y:[facility] Start: 08-31-2024 End: 08-31-2024 Patient encounter procedure DAISY BARBER MD [facility] Start: 08-30-2024 End: 08-31-2024 [facility] Start: 08-26-2024 End: 08-26-2024 ambulatory LIANET D TALAMPAS Facility:[facility] Start: 08-06-2024 End: 08-06-2024 ambulatory Lianet Sullivan Facility:[facility] Start: 07-30-2024 End: 07-30-2024 ambulatory Daisy Barber Facility:[facility] Start: 07-13-2024 End: 07-13-2024 Patient encounter procedure DAISY BARBER MD [facility] Start: 07-12-2024 End: 07-12-2024 Office outpatient visit 25 minutes Lianet Sullivan MD Work Phone: [facility] [place] Comment on above: Primary hypertension (Primary Dx); Muscle spasm; Pure hypercholesterolemia; Vitamin D deficiency; Elevated glucose; Obesity, Class II, BMI 35-39.9; 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 Start: 05-11-2024 End: 05-11-2024 ambulatory DAISY BARBER MD Facility:[facility] Start: 05-03-2024 End: 07-05-2024 ambulatory LIANET BOURGEOIS [facility] Start: 04-28-2024 Telephone encounter Lianet christina MD Work Phone: [facility] [place] Comment on above: Patient Update Start: 04-28-2024 End: 04-28-2024 ambulatory SHO BURNO Facility:[facility] Start: 04-28-2024 End: 04-28-2024 Patient encounter procedure Sho Bruno WINTER INTERNPASTOR Work Phone: [facility] [place] Comment on above: Open wound of right foot excluding one or more toes, initial encounter (Primary Dx); Cellulitis of other specified site Start: 04-21-2024 Telephone encounter Lianet christina MD Work Phone: [facility] [place] Comment on above: [facility] requesting or ders to be faxed for outpt OT and PT Start: 04-15-2024 Telephone encounter Lianet christina MD Work Phone: [facility] [place] Comment on above: Orders Start: 04-02-2024 Telephone encounter Lianet christina MD Work Phone: [facility] [place] Comment on above: [facility] PT Plan of Ca re Start: 03-30-2024 End: 03-30-2024 ambulatory DAISY BARBER MD Facility:[facility] Start: 03-30-2024 End: 03-30-2024 Patient encounter procedure DAISY BARBER MD [facility] Start: 03-29-2024 Telephone encounter Lianet christina MD Work Phone: [facility] [place] Start: 03-25-2024 Refill Lianet corona MD Work Phone: [facility] [place] Comment on above: Refill Request Medication Question (for constipation issues) Start: 03-23-2024 Telephone encounter Lianet christina MD Work Phone: [facility] [place] Comment on above: [facility], OT - constip ated Start: 03-19-2024 Refill Lianet corona MD Work Phone: [facility] [place] Comment on above: Refill Request Start: 03-11-2024 Telephone encounter Lianet christina MD Work Phone: [facility] [place] Comment on above: FYI-care home hea lt update Start: 03-09-2024 Telephone encounter Lianet christina MD Work Phone: [facility] [place] Comment on above: Home Health OT Plan of Care; OT Delay of Care Update Start: 03-08-2024 End: 03-08-2024 Office outpatient visit 25 minutes Lianet Sullivan MD Work Phone: [facility] [place] Comment on above: Osteopenia of neck o f right femur (Primary Dx); Essential hypertension; Pure hypercholesterolemia; Anxiety state; Decreased hearing of right ear; Dysfunction of right eustachian tube Start: 03-02-2024 Telephone encounter Lianet christina MD Work Phone: [facility] [place] Comment on above: Patient Update- [facility] Start: 03-02-2024 End: 03-02-2024 ambulatory DAISY BARBER MD Facility:[facility] Start: 03-02-2024 End: 03-02-2024 Patient encounter procedure DAISY BARBER MD [facility] Start: 02-27-2024 Telephone encounter Lianet christina MD Work Phone: [facility] [place] Start: 12-28-2023 End: 01-11-2024 Evaluation and management of inpatient DAISY BARBER MD [facility] Start: 12-27-2023 End: 12-28-2023 Emergency department patient visit LIANET SULLIVAN [facility] Start: 04-11-2023 Documentation procedure Mammog lorna Coordinator [facility] Start: 04-11-2023 Letter encounter Mammography Coordinator [facility] Department Start: 04-10-2023 End: 04-10-2023 Subsequent hospital visit by physician Screen Mammo [facility] Comment on above: Encounter for screen ing mammogram for malignant neoplasm of breast [Z12.31] Start: 04-07-2023 Telephone encounter Lianet christina MD Work Phone: [facility] [place] Comment on above: Orders Start: 02-06-2023 End: 02-06-[address] Lianet Sullivan Work Phone: [facility] Work Phone: Start: 02-06-2023 End: 02-06-[address] Lianet Sullivan Work Phone: [facility] Start: 01-03-2023 End: 01-03-2023 Office outpatient visit 25 minutes Lianet Sullivan MD Work Phone: [facility] [place] Comment on above: Anxiety state; Essential hypertension; Pure hypercholesterolemia Start: 11-07-2022 End: 11-07-[address] Lianet Sullivan Work Phone: [facility] Work Phone: Start: 11-07-2022 End: 11-07-[address] Lianet Sullivan Work Phone: [facility] Start: 10-16-2022 End: 10-16-2022 Subsequent hospital visit by physician Bone Density [facility] Work Phone: Radiology Start: 10-14-2022 Non-patient / Non-visit Dr. Regina Sullivan Work Phone: [facility] Start: 10-14-2022 End: 10-14-[address] Lianet Sullivan Work Phone: [facility] Work Phone: Start: 10-14-2022 End: 10-14-[address] Lianet Sullivan Work Phone: [facility]-Cardiovas [facility]ular Services Start: 10-09-2022 End: 10-09-[address] Lianet Sullivan Work Phone: [facility]-Pulmonary Medicine [facility] Start: 08-14-2022 End: 08-14-[address] Lianet Sullivan Work Phone: [facility] Work Phone: Start: 08-14-2022 End: 08-14-[address] Lianet Sullivan Work Phone: [facility] Start: 07-31-2022 End: 07-31-[address] Lianet Sullivan Work Phone: [facility] Start: 07-19-2022 Non-patient / Non-visit Dr. Regina Sullivan Work Phone: [facility] Start: 07-05-2022 End: 07-05-2022 Patient encounter procedure Antolin Coombs WINTER INTERN.SCENE SHIFTER Work Phone: [facility] [place] Comment on above: Cellulitis of right lower extremity (Primary Dx); Encounter for immunization Start: 06-28-2022 End: 06-28-2022 Patient encounter procedure Antolin Coombs WINTER INTERN.SCENE SHIFTER Work Phone: [facility] [place] Comment on above: Cellulitis of right lower extremity (Primary Dx); Encounter for immunization Start: 06-21-2022 End: 06-21-2022 Patient encounter procedure Antolin Coombs WINTER INTERN.SCENE SHIFTER Work Phone: [facility] [place] Comment on above: Cellulitis of right lower extremity (Primary Dx) Start: 06-17-2022 End: 06-17-2022 Patient encounter procedure Radhacharleen Long WINTER INTERN.FORM STRIPPER Work Phone: [facility] Comment on above: Cellulitis of right lower extremity (Primary Dx); Venous stasis ulcer of right calf limited to breakdown of skin, unspecified whether varicose veins present (HCC) Start: 06-12-2022 End: 06-12-2022 Patient encounter procedure Radha Zurcarlos albertock WINTER INTERN.FORM STRIPPER Work Phone: [facility] Comment on above: Cellulitis of right lower extremity (Primary Dx) Start: 06-09-2022 Non-patient / Non-visit Dr. Regina Sullivan Work Phone: [facility] Start: 06-09-2022 End: 06-09-2022 Emergency department patient visit Dr. Lianet Sullivan Work Phone: [facility]-Emergency Department Start: 06-04-2022 Non-patient / Non-visit Dr. Regina Sullivan Work Phone: [facility] Start: 06-03-2022 Non-patient / Non-visit Dr. Regina Sullivan Work Phone: [facility] Start: 06-03-2022 Non-patient / Non-visit Dr. Regina Sullivan Work Phone: [facility] Start: 06-02-2022 Non-patient / Non-visit Dr. Regina Sullivan Work Phone: [facility] Start: 06-01-2022 End: 06-04-2022 Evaluation and management of inpatient [facility] Start: 06-01-2022 Non-patient / Non-visit Dr. Regina Sullvian Work Phone: [facility] Start: 05-27-2022 End: 05-27-2022 ambulatory [facility] Work Phone: Start: 05-27-2022 End: 05-27-2022 Patient encounter procedure [facility] Start: 04-11-2022 End: 04-12-2022 Emergency department [facility] Start: 03-07-2022 End: 03-07-2022 Patient encounter procedure [facility] Start: 01-11-2022 Telephone encounter Lianet christina MD Work Phone: [facility] [place] Comment on above: Results Start: 01-09-2022 Documentation procedure Mammog lorna Coordinator [facility] Start: 01-09-2022 Letter encounter Mammography Coordinator [facility] Department Start: 01-09-2022 End: 01-09-2022 Subsequent hospital visit by physician Screen Mammo [facility] Comment on above: Screening mammogram for breast cancer [Z12.31] Start: 12-04-2021 End: 12-04-2021 Patient encounter procedure [facility] Start: 12-03-2021 End: 12-03-2021 Office outpatient visit 25 minutes Lianet Sullivan MD Work Phone: [facility] [place] Comment on above: Anxiety state (Prima ry Dx); Essential hypertension; Pure hypercholesterolemia; Rheumatoid arthritis involving multiple sites with positive rheumatoid factor (HCC) Procedures Date Procedure Procedure Detail Performing Clinician Start: 03-09-2025 X-ray of lumbosacral spine Dr. Lianet Sullivan MD Work Phone: Start: 11-25-2024 Adult depression screening assessment Antolin Coombs APRN.SCENE SHIFTER Work Phone: Start: 11-17-2024 MRI of lumbar spine Dr. Lianet Sullivan MD Work Phone: Start: 04-10-2023 Screening mammography bi 2-view breast inc cad Sho Bruno WINTER INTERN.FORM STRIPPER Work Phone: Start: 10-16-2022 Dxa bone density study 1/> sites axial skel [facility] Provider Start: 10-14-2022 Cardiovascular stress test using pharmacologic stress agent Dr. Lianet Sullivan Work Phone: Start: 07-05-2022 INFLUENZA SEASONAL QUADRIVALENT HIGH DOSE AGE 65+ Antolin Coombs APRN.SCENE SHIFTER Work Phone: Start: 06-09-2022 X-ray of both feet Dr. Lianet Sullivan Work Phone: Start: 06-02-2022 MRI of lower extremity Dr. Lianet Sullivan Work Phone: Start: 06-01-2022 Plain X-ray of shoulder Dr. Lianet Segura s Work Phone: Start: 06-01-2022 Plain x-ray of wrist Dr. Lianet Sullivan Work Phone: Start: 06-01-2022 X-ray of radius and ulna Dr. Lianet Newman as Work Phone: Start: 06-01-2022 CT angiography of chest with contrast Start: 06-01-2022 Plain chest X-ray Start: 06-01-2022 Plain X-ray of tibia and fibula Start: 06-01-2022 X-ray of both feet Start: 04-12-2022 Plain x-ray of wrist Start: 04-11-2022 Plain X-ray of shoulder Start: 04-11-2022 Plain x-ray of wrist Start: 01-09-2022 Screening mammography bi 2-view breast inc cad Shanique Older WINTER INTERN.FORM STRIPPER Work Phone: Start: 12-04-2021 Comprehensive metabolic 2000 panel - Serum or Plasma [facility] Provider Start: 12-04-2021 Lipid panel [facility] Provider Anaerobic microbial culture Dr. Lianet Sullivan Work Phone: Arthroplasty of knee UMM BARBER MD Bacteria identified in Blood by Culture Dr. Lianet Sullivan Work Phone: Gallbladder structur e (body structure) DAISY BARBER MD H/O: hysterectomy History of hysterectomy History of operative procedure on knee History of bilateral knee replacement Hysterectomy DAISY BAH MD Investigation of transfusion reaction Dr. Lianet Sullivan Work Phone: Microbial culture, routine Dr. Lianet Sullivan Work Phone: Urine culture Dr. Lianet nguyen Work Phone: Viral antigen assay Plan of Treatment Date Care Activity Detail Author Start: 08-26-2027 Diabetes Screening Diabetes Screening [facility] Start: 07-10-2027 Urine microalbumin profile [facility] Comment on above: Postponed from 07/11/2017 (Postponed To Appropriate Date) Start: 07-23-2026 Diabetes Screening Diabetes Screening [facility] Start: 01-18-2026 End: 01-18-2026 Patient encounter procedure 01/18/2026 1:40 PM EDT Office Visit [facility] [address] [facility] [place] [id number] Lianet Sullivan MD [address] [place] [address] yearly exam [facility] Comment on above: yearly exam Start: 11-25-2025 Depression Screening Depression Screening [facility] Start: 07-13-2025 End: 07-13-2025 Patient encounter procedure 07/13/2025 2:00 PM EDT Office Visit [facility] [place] [address] [place] [address] Lianet Sullivan MD [address] [place] [address] 1 yr follow up [facility] Comment on above: 1 yr follow up Start: 06-06-2025 End: 09-05-2025 CBC panel - Blood by Automated count COMPLETE BLOOD COUNT Lab Routine Encounter for long-term current use of medication Primary hypertension Stage 3a chronic kidney disease (HCC) IFG (impaired fasting glucose) Expected: 06/06/2025 (Approximate), Expires: 09/05/2025 [facility] Comment on above: Expected: 06/06/2025 (Approximate), Expi res: 09/05/2025 Start: 06-06-2025 End: 09-05-2025 Comprehensive metabolic 2000 panel - Serum or Plasma COMPREHENSIVE METABOLIC PANEL Lab Routine Encounter for long-term current use of medication Primary hypertension Stage 3a chronic kidney disease (HCC) IFG (impaired fasting glucose) Expected: 06/06/2025 (Approximate), Expires: 09/05/2025 [facility] Work Phone: Comment on above: Expected: 06/06/2025 (Approximate), Expi res: 09/05/2025 Start: 06-06-2025 End: 09-05-2025 Hemoglobin A1c in Blood HEMOGLOBIN A1C Lab Routine Encounter for long-term current use of medication Stage 3a chronic kidney disease (HCC) IFG (impaired fasting glucose) Expected: 06/06/2025 (Approximate), Expires: 09/05/2025 [facility] Comment on above: Expected: 06/06/2025 (Approximate), Expi res: 09/05/2025 Start: 06-06-2025 End: 09-05-2025 Lipid 1996 panel - Serum or Plasma LIPID PANEL, FASTING Lab Routine Encounter for long-term current use of medication Primary hypertension Stage 3a chronic kidney disease (HCC) IFG (impaired fasting glucose) Expected: 06/06/2025 (Approximate), Expires: 09/05/2025 [facility] Comment on above: Expected: 06/06/2025 (Approximate), Expi res: 09/05/2025 Start: 06-06-2025 End: 09-05-2025 Magnesium [Mass/volume] in Serum or Plasma MAGNESIUM Lab Routine Encounter for long-term current use of medication Stage 3a chronic kidney disease (HCC) IFG (impaired fasting glucose) Expected: 06/06/2025 (Approximate), Expires: 09/05/2025 [facility] Comment on above: Expected: 06/06/2025 (Approximate), Expi res: 09/05/2025 Start: 01-11-2025 End: 01-11-2025 Patient encounter procedure 01/11/2025 2:00 PM EDT Office Visit [facility] [address] [place] [address] Lianet Sullivan MD [address] [place] [address] 6 month follow up [facility] Comment on above: 6 month follow up Start: 12-04-2024 DIABETES SCREEN DIABETES SCREEN [facility] Start: 10-06-2024 Medicare Advantage Annual Wellness Visit Medicare Advantage Annual Wellness Visit [facility] Start: 07-12-2024 End: 10-11-2024 25-hydroxyvitamin D3 [Mass/volume] in Serum or Plasma VITAMIN D 25 HYDROXY Lab Routine Vitamin D deficiency Expected: 07/12/2024, Expires: 10/11/2024 [facility] Work Phone: Comment on above: Expected: 07/12/2024, Expires: Start: 07-12-2024 End: 10-11-2024 CBC panel - Blood by Automated count COMPLETE BLOOD COUNT Lab Routine Primary hypertension Expected: 07/12/2024, Expires: 10/11/2024 [facility] Comment on above: Expected: 07/12/2024, Expires: Start: 07-12-2024 End: 10-11-2024 Comprehensive metabolic 2000 panel - Serum or Plasma COMPREHENSIVE METABOLIC PANEL Lab Routine Primary hypertension Elevated glucose Expected: 07/12/2024, Expires: 10/11/2024 [facility] Comment on above: Expected: 07/12/2024, Expires: Start: 07-12-2024 End: 10-11-2024 Hemoglobin A1c in Blood HEMOGLOBIN A1C Lab Routine Elevated glucose Expected: 07/12/2024, Expires: 10/11/2024 [facility] Comment on above: Expected: 07/12/2024, Expires: Start: 07-12-2024 End: 10-11-2024 Lipid 1996 panel - Serum or Plasma LIPID PANEL BASIC Lab Routine Pure hypercholesterolemia Primary hypertension Expected: 07/12/2024, Expires: 10/11/2024 [facility] Comment on above: Expected: 07/12/2024, Expires: Start: 07-12-2024 End: 10-11-2024 Magnesium [Mass/volume] in Serum or Plasma MAGNESIUM Lab Routine Muscle spasm Expected: 07/12/2024, Expires: 10/11/2024 [facility] Comment on above: Expected: 07/12/2024, Expires: Start: 07-12-2024 End: 07-12-2024 Patient encounter procedure 07/12/2024 11:00 AM EDT Office Visit [facility] [address] [place] [address] Lianet Sullivan MD [address] [place] [address] 6 month follow up [facility] Comment on above: 6 month follow up Start: 06-06-2024 Influenza vaccination Influenza Vaccine (#1) [facility] Start: 04-28-2024 End: 07-28-2024 Bacteria identified in Wound by Culture [facility] Work Phone: Comment on above: Expected: 04/28/2024, Expires: Start: 03-08-2024 End: 03-08-2024 Patient encounter procedure 03/08/2024 2:00 PM EDT Office Visit [facility] [place] [address] [place] [address] Lianet Sullivan MD [address] [place] [address] Hospital follow up, [facility] rehab d/c 02/27/24 [facility] Comment on above: Hospital follow up, [facility] rehab d/c 4 Start: 11-14-2023 DIABETES SCREEN DIABETES SCREEN [facility] Start: 10-06-2023 Advance Directive Discussion Advance Directive Discussion [facility] Start: 10-06-2023 Behavioral Health Screening Behavioral Health Screening [facility] Start: 06-28-2023 COVID-19 VACCINE (3 - Moderna risk series) COVID-19 VACCINE (3 - Moderna risk series) [facility] Comment on above: Postponed from 12/20/2020 (Declined at t his time) Start: 06-06-2023 Influenza vaccination INFLUENZA (#1) [facility] Start: 12-27-2022 SHINGRIX VACCINE (2 of 2) SHINGRIX VACCINE (2 of 2) [facility] Start: 10-06-2022 ADVANCE DIRECTIVE DISCUSSION ADVANCE DIRECTIVE DISCUSSION [facility] Start: 06-06-2022 Influenza vaccination [facility] Start: 06-04-2022 Patient discharge [facility] Work Phone: Start: 06-04-2022 [facility] Work Phone: Start: 06-03-2022 Wound care [facility] Work Phone: Start: 06-01-2022 Continuous positive airway pressure ventilation treatment [facility] Work Phone: Start: 06-01-2022 Continuous pulse oximetry [facility] Work Phone: Start: 06-01-2022 [facility] Work Phone: Start: 06-01-2022 Consultation for treatment [facility] Work Phone: Start: 06-01-2022 Elevation of affected extremity [facility] Work Phone: Start: 06-01-2022 [facility] Work Phone: Start: 06-01-2022 Following clinical pathway protocol [facility] Work Phone: Start: 06-01-2022 Ambulation without limitation [facility] Work Phone: Start: 06-01-2022 Assessment of risk of venous thromboembolism [facility] Work Phone: Start: 06-01-2022 Elevation of affected extremity [facility] Work Phone: Start: 06-01-2022 Incentive spirometry [facility] Work Phone: Start: 06-01-2022 Insertion of catheter into peripheral vein [facility] Work Phone: Start: 06-01-2022 Measuring intake and output [facility] Work Phone: Start: 06-01-2022 Methicillin resistant Staphylococcus aureus screening test [facility] Work Phone: Start: 06-01-2022 Oxygen therapy [facility] Work Phone: Start: 06-01-2022 Providing care according to standard [facility] Work Phone: Start: 06-01-2022 Referral to occupational therapist [facility] Work Phone: Start: 06-01-2022 Referral to homebound teacher [facility] Work Phone: Start: 06-01-2022 Referral to service [facility] Work Phone: Start: 06-01-2022 Troponin I measurement [facility] Work Phone: Start: 06-01-2022 Verification routine [facility] Work Phone: Start: 06-01-2022 End: 06-01-2022 [facility] Work Phone: Start: 06-01-2022 Admission procedure [facility] Work Phone: Start: 06-01-2022 End: 06-01-2022 [facility] Work Phone: Start: 06-01-2022 End: 06-01-2022 Blood culture [facility] Work Phone: Start: 06-01-2022 Patient referral to dietitian [facility] Work Phone: Start: 05-21-2022 SHINGRIX VACCINE (2 of 3) SHINGRIX VACCINE (2 of 3) [facility] Comment on above: Postponed from 10/28/2012 (Declined at t his time) Start: 12-03-2021 End: 12-03-2022 LIPID PANEL, NONFASTING LIPID PANEL, NONFASTING Lab Routine Pure hypercholesterolemia Expected: 12/03/2021 (Approximate), Expires: 12/03/2022 [facility] Work Phone: Comment on above: Expected: 12/03/2021 (Approximate), Expi res: 12/03/2022 Start: 10-06-2021 ADVANCE DIRECTIVE DISCUSSION ADVANCE DIRECTIVE DISCUSSION [facility] Start: 10-06-2021 DEPRESSION ASSESSMENT DEPRESSION ASSESSMENT [facility] Start: 12-20-2020 COVID-19 VACCINE (3 - Moderna risk 4-dose series) [facility] Start: 12-20-2020 COVID-19 VACCINE (3 - Moderna risk series) COVID-19 VACCINE (3 - Moderna risk series) [facility] Start: 2015 RSV Vaccine (1 - 1-dose 75+ series) RSV Vaccine (1 - 1-dose 75+ series) [facility] Start: 10-28-2012 SHINGRIX VACCINE (1 of 2) SHINGRIX VACCINE (1 of 2) [facility] Start: 2000 RSV Vaccine (1 - 1-dose 60+ series) RSV Vaccine (1 - 1-dose 60+ series) [facility] Start: 1958 Depression Screening Depression Screening [facility] Bacteria identified in Blood by Culture Blood Culture [facility] Work Phone: Bacteria identified in Urine by Culture Urine Culture [facility] Work Phone: Blood culture [facility] Work Phone: INFLUENZA SEASONAL QUADRIVALENT HIGH DOSE AGE 65+ INFLUENZA SEASONAL QUADRIVALENT HIGH DOSE AGE 65+ Immunization/Injection Routine Encounter for immunization 1 Occurrences starting 06/28/2022 [facility] Work Phone: Comment on above: 1 Occurrences starting 06/28/2022 Magnesium [Mass/volu me] in Serum or Plasma [facility] Work Phone: End: 05-06-2024 LAN SCREENING LAN SCREENING Radiology Routine Encounter for screening mammogram for malignant neoplasm of breast 1 Occurrences starting 04/07/2023 until 05/06/2024 [facility] Work Phone: Comment on above: 1 Occurrences starting 04/07/2023 until 05/06/2024 NM Heart Views W str ess and W radionuclide IV [facility] Work Phone: [facility] Work Phone: Patient referral [facility] Work Phone: Troponin I measurement [facility] Work Phone: [facility] Immunizations Immunization Date Immunization Notes Care Provider [facility] 07-12-2024 influenza, high dose seasonal, preservative-free Lianet Sullivan MD Work Phone: [facility] 07-11-2023 influenza (HD-IIV4) vaccine, age 65+ yr, high dose, quadrivalent, PF (FLUZONE HIGH-DOSE) Lianet Sullivan MD Work Phone: [facility] 07-11-2023 influenza virus vacc ine, unspecified formulation Lianet Sullivan MD Work Phone: [facility] 02-18-2023 zoster vaccine recombinant Screen Wstr [facility] Work Phone: 11-01-2022 zoster vaccine recombinant Lianet Sullivan MD Work Phone: [facility] 07-05-2022 influenza, high-dose , quadrivalent vaccine (FLUZONE HIGH DOSE QUADRIVALENT) Antolin Coombs APRN.SCENE SHIFTER Work Phone: [facility] 11-22-2020 COVID-19 vaccine, fu ll dose (MODERNA) [facility] 10-26-2020 Covid (Moderna) Dr. Lianet christina Work Phone: [facility] 10-25-2020 COVID-19 vaccine, fu ll dose (MODERNA) [facility] 08-17-2020 influenza (HD-IIV4) vaccine, age 65+ yr, high dose, quadrivalent, PF (FLUZONE HIGH-DOSE) Lianet Sullivan MD Work Phone: [facility] 07-05-2019 influenza, high dose seasonal, preservative-free [facility] Work Phone: 07-16-2018 influenza, high dose seasonal, preservative-free [facility] 07-10-2017 influenza, high dose seasonal, preservative-free [facility] 07-10-2017 tetanus and diphther ia toxoids, adsorbed, preservative free, for adult use (5 Lf of tetanus toxoid and 2 Lf of diphtheria toxoid) [facility] 09-10-2016 influenza virus vacc ine, unspecified formulation [facility] 09-10-2016 influenza, injectabl e, quadrivalent, preservative free Dr. Lianet Sullivan MD Work Phone: [facility] 09-10-2016 influenza, seasonal, injectable [facility] 09-07-2015 influenza, high dose seasonal, preservative-free [facility] 08-28-2015 Influenza virus vaccine [facility] 12-29-2014 pneumococcal conjuga te vaccine, 13 valent [facility] 08-18-2014 influenza, seasonal, injectable [facility] 07-29-2013 influenza virus vacc ine, unspecified formulation [facility] 09-02-2012 zoster vaccine, live [facility] Work Phone: 08-28-2010 influenza virus vacc ine, unspecified formulation [facility] Work Phone: 08-12-2007 influenza virus vacc ine, whole virus Lianet Sullivan MD Work Phone: [facility] 05-28-2007 tetanus and diphther ia toxoids, not adsorbed, for adult use [facility] 08-25-2006 pneumococcal polysaccharide vaccine, 23 valent [facility] 08-01-2006 influenza virus vacc ine, unspecified formulation [facility] 07-25-2005 influenza virus vacc ine, unspecified formulation [facility] Work Phone: Payers Date Payer Category Payer Unknown [id number] 2024 Self-pay [id number] 2023 Medicare [id number] 2010 Medicare (Managed Care) 1.2. [id number] 2010 Unknown PRIMETIME PRIMET SMITH HMO POS [id number] 2010-Present [phone] [address] [place] [address] O [id number]. 2.7.3.846507.315 2010 Unknown [id number]. 1.13.159. 2.7.3.035239.315 2010 Unknown [id number] 1940 Unknown [id number] 2.16.840.1.126069.3.579. 2.627 1940 Unknown [id number] 2.16.840.1.240547.3.579. 2.627 1940 Unknown [id number] 2.16.840.1.862629.3.579. 2.627 1940 Unknown [id number] 2.16.840.1.141140.3.579. 2.627 1940 Unknown [id number] 2.16.840.1.205937.3.579. 2.651 1940 Unknown [id number] 2.16.840.1.036213.3.579. 2.651 1940 Unknown [id number] 2.16.840.1.337722.3.579. 2.651 1940 Unknown [id number] 2.16.840.1.940663.3.579. 2.651 1940 Unknown [id number] 2.16.840.1.613540.3.579. 2.651 1940 Unknown [id number] 2.16.840.1.183084.3.579. 2.651 1940 Unknown [id number] 2.16.840.1.227111.3.579. 2.651 1940 Unknown [id number] 2.16.840.1.862909.3.579. 2.627 1940 Unknown [id number] 2.16.840.1.038265.3.579. 2.627 1940 Unknown [id number] 2.16.840.1.665396.3.579. 2.627 1940 Unknown [id number] 2.16.840.1.150161.3.579. 2.627 1940 Unknown [id number] 2.16.840.1.083030.3.579. 2.627 Unknown [id number] 2.16.840.1.167559.3.579. 2.462 Unknown [id number] 2.16.840.1.032341.3.579. 2.462 Unknown [id number] 2.16.840.1.726853.3.579. 2.462 Unknown [id number] 2.16.840.1.573613.3.579. 2.462 Unknown [id number] 2.16.840.1.934828.3.579. 2.462 Unknown [id number] 2.16.840.1.888949.3.579. 2.462 Unknown [id number] 2.16.840.1.325100.3.579. 2.462 Unknown [id number] 2.16840.1.629371.3.579. 2.462 Unknown [id number] 2.16.840.1.094658.3.579. 2.462 Unknown [id number] 2.16840.1.674773.3.579. 2.462 Unknown [id number] 2.16840.1.192181.3.579. 2.462 Unknown [id number] 2.16840.1.303886.3.579. 2.462 Unknown [id number] 2.16840.1.966991.3.579. 2.462 Unknown [id number] 2.16.840.1.679863.3.579. 2.462 Unknown [id number] 2.16840.1.399377.3.579. 2.462 Unknown [id number] 2.16840.1.847083.3.579. 2.462 Unknown [id number] 2.16.840.1.547922.3.579. 2.462 Unknown [id number] 2.16.840.1.449194.3.579. 2.462 Unknown [id number] 2.16.840.1.256765.3.579. 2.462 Unknown [id number] 2.16.840.1.154106.3.579. 2.462 Unknown [id number] 2.16.840.1.870019.3.579. 2.462 Unknown [id number] 2.16.840.1.628772.3.579. 2.462 Unknown [id number] 2.16.840.1.727763.3.579. 2.462 Social History Date Type Detail Facility Start: 06-12-2022 End: 11-25-2024 Tobacco smoking status NHIS Ex-smoker [facility] Start: 10-06-1958 End: 10-06-1978 History of tobacco use Current smoker [facility] Start: 10-06-1958 End: 10-06-1978 History of tobacco use Cigarette Smoker [facility] Start: 05-21-2021 End: 01-07-2025 Alcohol intake Current non-drinker of alcohol (finding) [facility] Start: 11-21-2020 History SDOH Alcohol Std Drinks 98 [facility] Start: 11-21-2020 History SDOH Alcohol Binge 1 [facility] Start: 11-21-2020 History SDOH Social Connections Phone 5 [facility] Start: 11-21-2020 History SDOH Social Connections Scientologist 3 [facility] Start: 11-21-2020 History SDOH Physical Activity MPS 2 [facility] Start: 11-21-2020 Education 12 [facility] Start: 1940 Sex Assigned At Female [facility] Start: 12-30-2021 End: 06-28-2022 Exposure to SARS-CoV-2 (event) Not sure [facility] Start: 10-09-2021 End: 10-09-2022 Tobacco smoking status UTIS Unknown if ever smoked [facility] Start: 06-12-2022 End: 07-11-2023 Cigarettes smoked current (pack per day) - Reported 1 [facility] Start: 06-12-2022 End: 11-25-2024 Tobacco use and exposure Smokeless tobacco non-user [facility] Start: 11-21-2020 End: 07-11-2023 Social connection and isolation panel [facility] Frequency of Social Gatherings with Friends and Family Not on file [facility] Are you now , , , , never or living with a partner? [facility] How often do you hav e 6 or more drinks on 1 occasion? Never [facility] Do you feel stress - tense, restless, nervous, or anxious, or unable to sleep at night because your mind is troubled all the time - these days [OSQ] Not at all [facility] (I/We) worried wheth er (my/our) food would run out before (I/we) got money to buy more. Never true [facility] In the past 12 month s, was there a time when you were not able to pay the mortgage or rent on time? No [facility] Start: 11-20-2020 Gender identity Identifies as female gender (finding) [facility] Tobacco smoking status [facility] Start: 03-02-2024 Tobacco smoking status Never smoked tobacco (finding) [facility] Start: 03-23-2012 Sex Female (finding) [facility] Do you belong to any clubs or organizations such as mandaen groups, unions, fraternal or athletic groups, or school groups? Yes [facility] Medical Equipment Procedure Code Equipment Code Equipment Origin al Text Equipment Identifier Dates Repair of tendon SUTURETAPE,FIBER LOOP FDA Start: 09-22-2024 Repair of tendon Mcfarland Citrelo ck Xpress System FDA Start: 09-22-2024 Repair of tendon VIAFLOW, 1CC FDA Start: 09-22-2024 Repair of tendon VIAFLOW, 1CC FDA Start: 09-22-2024 Myriad Morcells Extracellular Matrix 1000mg [id number] Start: 01-07-2025 Goals Date Patient Goal Desired Activity /State Functional Status Date Assessment Result Facility 01-11-2024 Functional Status Breakfast Percent 90 [facility] 01-11-2024 Functional Status Room check performed [facility] 01-11-2024 Functional Status [facility] 01-10-2024 Functional Status 11pm-3am [facility] 01-10-2024 Functional Status [facility] 01-10-2024 Functional Status Up to Chair Re juan up in chair [facility] 01-10-2024 Functional Status Two assist [facility] 01-10-2024 Functional Status [facility] 01-10-2024 Functional Status Lunch Percent 70 [facility] 01-10-2024 Functional Status [facility] 01-10-2024 Functional Status [facility] 01-10-2024 Functional Status [facility] 01-10-2024 Functional Status [facility] 01-09-2024 Functional Status [facility] 01-09-2024 Functional Status Evening Snack Percent 7 5 [facility] 01-09-2024 Functional Status Antiembolism S tocking On/Re-applied bilateral knee high [facility] 01-09-2024 Functional Status Done [facility] 01-09-2024 Functional Status Max A [facility] 01-09-2024 Functional Status [facility] 01-08-2024 Functional Status [facility] 01-08-2024 Functional Status [facility] 01-08-2024 Functional Status [facility] 01-07-2024 Functional Status [facility] 01-07-2024 Functional Status Total [facility] 01-07-2024 Functional Status [facility] 01-06-2024 Functional Status [facility] 01-06-2024 Functional Status [facility] 01-05-2024 Functional Status [facility] 01-05-2024 Functional Status [facility] 01-04-2024 Functional Status [facility] 01-03-2024 Functional Status [facility] 01-03-2024 [facility] Functional Status Transparent si licone dressing, Intact [facility] 01-01-2024 Functional Status [facility] 12-31-2023 Functional Status Patient Identi fied Identification band, Verbal [facility] 12-31-2023 Functional Status NPO Status Maintained A [facility] 12-31-2023 Functional Status [facility] 12-30-2023 Functional Status Special Call D evice Special device provided [facility] 12-29-2023 Functional Status Single level home [facility] 12-28-2023 Functional Status [facility] 06-04-2022 Functional status Patient Activity Chair [facility] Work Phone: 08-30-2022 Functional status Activity Abili ty With Assist of 1 [facility] Work Phone: 06-03-2022 Functional status Standard Walker [facility] Work Phone: 04-03-2015 Are you deaf, or do you have serious difficulty hearing No 04/03/2015 2:21 PM EDT Nguyen Chung LPN No [facility] 04-03-2015 Are you blind, or do you have serious difficulty seeing, even when wearing glasses No 04/03/2015 2:21 PM EDT Nguyen Chung LPN No [facility] 04-03-2015 Do you have serious difficulty walking or climbing stairs No 04/03/2015 2:21 PM EDNguyen José LPN No [facility] 04-03-2015 Do you have difficul ty dressing or bathing No 04/03/2015 2:21 PM EDNguyen José LPN No [facility] 04-03-2015 Because of a physica l, mental, or emotional condition, do you have difficulty doing errands alone such as visiting a physician's office or shopping No 04/03/2015 2:21 PM EDNguyen José LPN No [facility] Mental Status Date Assessment Result Facility 01-11-2024 Mental Status Oriented x 4 [facility] 01-11-2024 Mental Status [facility] 01-10-2024 Mental Status [facility] 01-10-2024 Mental Status [facility] 01-10-2024 Mental Status [facility] 06-03-2022 Cognitive function Voice/Name [facility] Work Phone: 04-12-2022 Cognitive function Awake;Alert;A ppropriate; Follows Commands [facility] Work Phone: 04-03-2015 Because of a physica l, mental, or emotional condition, do you have serious difficulty concentrating, remembering, or making decisions Yes 04/03/2015 2:21 PM EDNguyen José LPN Yes [facility] Clinical Notes 12-03-2012 to 03-29-2025 Telephone Encounter - Latosha Mesa - 03/29/2025 3:02 PM EDTTelephone Encounter - Latosha Mesa - 03/29/2025 3:02 PM EDTTelephone Encounter - Hanna Liz LPN - 03/08/2025 3:09 PM EDTRadiology Note Date & Type Note Facility 03-29-2025 Telephone encounter Note Prescription Refill Information The patient has been identified by name and date of : Yes Caregiver verified no other encounters exist for this prescription request: Yes Caregiver confirmed with patient/requestor that no other refills are due, in the near future, with this provider at this time: Yes The last office visit in the department: 01/11/25 Does the patient have a future office visit with this provider/department: Yes Requested Prescriptions Pending Prescriptions Disp Refills atorvastatin (LIPITOR) 20 mg tablet 90 tablet 3 Sig: Take one (1) tablet by mouth every evening at 9pm omeprazole (PRILOSEC) 20 mg capsule 90 capsule 3 Sig: Take 1 capsule by mouth daily before breakfast. 1/2 hr before meal. Latosha Mesa March 29, 2025 3:02 PM [facility] 03-29-2025 Miscellaneous Notes Prescription Refill Information The patient has been identified by name and date of : Yes Caregiver verified no other encounters exist for this prescription request: Yes Caregiver confirmed with patient/requestor that no other refills are due, in the near future, with this provider at this time: Yes The last office visit in the department: 01/11/25 Does the patient have a future office visit with this provider/department: Yes Requested Prescriptions Pending Prescriptions Disp Refills atorvastatin (LIPITOR) 20 mg tablet 90 tablet 3 Sig: Take one (1) tablet by mouth every evening at 9pm omeprazole (PRILOSEC) 20 mg capsule 90 capsule 3 Sig: Take 1 capsule by mouth daily before breakfast. 1/2 hr before meal. Latosha Mesa March 29, 2025 3:02 PM documented in this encounter [facility] 03-10-2025 Radiology Diagnostic study note [facility] [address] [place] [address] L/S Spine Min 4 Views MR#: [id number] Acct: [id number] Name: KIESHA COLVIN Rep #: [id number] : 1940 F 84 From: Kenny Stroud MD PCP: Dr. Lianet Sullivan MD Status: RE G CLI Study:L/S Spine Min 4 Views Date of Exam: 03/09/25 Exam# [id number] Ordering Dr: Daisy Tolliver MD PROCEDURE: L/S SPINE MIN 4 VIEWS 03/09/2025 REASON FOR EXAM: WEAKNESS TECHNIQUE: Standing AP lateral and flexion extension views of the lumbar spine were obtained. COMPARISON: Lumbar spine series, 09/13/2020. FINDINGS: There is loss of the normal lumbar lordosis. There is mild levoscoliosis of thelumbar spine centered at the L3 level. There is severe diffuse degenerative disc disease T10-11 through L5-S1 with almost complete loss of the intervertebral disc spaces and large marginal osteophytes. There is multilevel facet arthropathy without spondylolisthesis. There is no instability with flexion and extension. Suspect significant spinal stenosis throughout the lumbar spine. The SI joints are normal. There is calcific vascular disease of the abdominal aorta. RAD/L/S Spine Min 4 Views IMPRESSION: 1. 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 2. Suspect multilevel spinal stenosis. 3. No evidence of instability with flexion and extension Reading Location: [id number] CC: Dr. Daisy Barber MD; Dr. Lianet Sullivan MD ~ Regulatory Intern: Signed [facility] Work Phone: 03-08-2025 Telephone encounter Note Pcp signed previously dx added from 01/11/25 appt. [facility] 03-08-2025 Miscellaneous Notes Pcp signed previously dx added from 01/11/25 appt. Rec'd pcp is out of the office this week and next. Can review when she reports the week of 03/14/25. Divya calls and asking if paperwork was received. Advised Divya that no notes that paper work was received. Advised Divya to fax over paperwork again. Please watch out for paperwork. Kamini Cabrera RN Divya with the Passport Program calls to ask if provider received Passport Enrollment packet that was faxed to provider on 02/21/2025. Contact number is [phone]. Olga Lidia Bernard RN documented in this encounter [facility] 03-03-2025 Telephone encounter Note Rec'd pcp is out of the office this week and next. Can review when she reports the week of 03/14/25. [facility] 03-01-2025 Telephone encounter Note Divya calls and asking if paperwork was received. Advised Divya that no notes that paper work was received. Advised Divya to fax over paperwork again. Please watch out for paperwork. Kamini Cabrera RN [facility] 02-24-2025 Telephone encounter Note Divya with the Passport Program calls to ask if provider received Passport Enrollment packet that was faxed to provider on 02/21/2025. Contact number is [phone]. Olga Lidia Bernard RN [facility] 01-11-2025 Instructions Lianet Sullivan MD - 01/11/2025 3:01 PM EDT - Start taking Vesicare 10 mg once daily for bladder urgency and incontinence; prescription sent to [facility] [place]. - Monitor for side effects such as dry mouth, dry eyes, and constipation. If side effects are bothersome, you can split the 10 mg tablet in half to take 5 mg instead. - Continue doing Kegel exercises to strengthen pelvic muscles. - Refills for Fosamax, EpiPen, lisinopril, omeprazole, and paroxetine have been sent to [facility] in [place]. - Follow up with your foot surgeon tomorrow to check on the healing progress of your foot ulcer. - Next follow-up appointment in 6 months. Okay to try to wean off omeprazole. Start by lowering to 20 mg one every other day. After 2 weeks if no breakthrough reflux, may decrease frequency to once weekly.. Then after another 1 to 2 weeks, may try stopping omeprazole. documented in this encounter [facility] 01-11-2025 Note HNO ID: [id number] Author: LIANET SULLIVAN MD Service: ? Author Type: Physician Type: Progress Notes Filed: 01/19/2025 00:25 Note Text: This note was created using [employer]. Subjective Kiesha Colvin is a 84 year old female. Patient presents with: 6 month f/up Kiesha is a 84-year-old female with a history of urinary incontinence, presenting for a 6-month follow-up visit. Kiesha reports ongoing urinary incontinence, characterized by an inability to hold urine when the urge to void arises. She denies frequent urination or leakage with coughing or sneezing. She has been performing Kegel exercises, which have provided some improvement but not complete resolution of symptoms. She has not yet tried saw palmetto due to concerns about potential side effects. She previously tried Detrol and Myrbetriq, prescribed by Dr. Thurston, a urologist, but found them ineffective. She denies dysuria. Kiesha recently underwent foot surgery for an ulcer and a non-healing bedsore, which developed during a 6-week period of immobility following ligament surgery. She reports soreness at the surgical site, managed with extra-strength Tylenol, and notes swelling and partial numbness. She is able to sleep well at night. She is scheduled for a follow-up appointment tomorrow to assess the healing progress. She also requests a refill for her EpiPen, which was last prescribed in 2022. She is currently taking Flonase, Fosamax, omeprazole, paroxetine, lisinopril, and amlodipine. Stable on meds without adverse effects. PAST MEDICAL HISTORY Diagnosis Date ANEMIA NOS 04/21/2009 Colonoscopy in 10-11: tics and hems with no polpys Started iron as an inpt per Dr. Sales: pt reportedly giving multiple blood donations Hct 33% in 04-13, 06-14 Iron 72, Ferritin 162 (8-252), TIBC 344 in 06-14: stop iron supplements and repeat levels in follow up Anxiety state, unspecified PCP follows Arthritis Bee sting allergy goes into shock, honey bees only CELLULITIS NOS 04/18/2009 WBC 9 K, ESR 118 in 04-13 for cellulitis of R foot Empiric Levaquin for R foot in 04-13: rec to return to Podiatry Admitted 04-19-09 for cellulitis: discharged on Doxy and rec to ID (MRI of the R foot negative for osteo)/ no current issue 01/05/25 Depressive disorder, not elsewhere classified PCP follows Diverticulosis of colon (without mention of hemorrhage) PCP follows Family history of malignant neoplasm of gastrointestinal tract family history of colon cancer Foot drop, right 09/22/2024 no current issue 2024 GERD (gastroesophageal reflux disease) PCP follows Hypertension controlled with meds PCP follows 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 foot/no current issue 2024 Palpitations had for years cardiac workup negative per pt 2024/ Dr. Akbar Pure hypercholesterolemia PCP follows Sleep apnea cpap compliant Urge incontinence of urine 11/23/2009 Varicose veins 06/02/2012 VITAMIN D DEFICIENCY NOS 03/05/2009 Vitamin D 23 (32-100) in 01-12, 29 in 06-14 Vit D 05/21/10 WC is 28.8. To continue the vit D 50,000 one po weekly Current Outpatient Medications Medication Sig acetaminophen (TYLENOL 8 HOUR) 650 mg CR tablet Take 650 mg by mouth every 8 hours as needed for pain. SUNFLOWER OIL-PARSLEY SEED OIL ORAL Take 1 Dose by mouth once daily. Last dose 01/05 due to surgery Flaxseed Oil oil Last dose 01/05 due to surgery amLODIPine (NORVASC) 5 mg tablet Take 1 tablet by mouth once daily. As directed atorvastatin (LIPITOR) 20 mg tablet Take one (1) tablet by mouth every evening at 9pm Cholecalciferol, Vitamin D3, 25 mcg (1,000 unit) cap Take 1 capsule by mouth once daily. ferrous sulfate 325 mg (65 mg iron) tablet Take 325 mg by mouth daily with breakfast. fluticasone (FLONASE) 50 mcg/actuation nasal spray Use 2 Sprays in each nostril once daily. As needed. Rinse mouth after use. ASPIRIN 81 MG TAB Take 81 mg by mouth once daily. No instructions to hold PACC / MULTIVITAMIN TAB Take 1 tablet by mouth once daily. Last dose 01/05 due to surgery solifenacin (VESICARE) 10 mg tablet Take 1 tablet by mouth once daily. EPINEPHrine (EPIPEN 2-MAKI) 0.3 mg/0.3 mL auto-injector Inject 0.3 mL intramuscularly as needed. alendronate (FOSAMAX) 70 mg tablet Take 1 tablet by mouth one time a week. Take with a full glass of water, on an empty stomach; do NOT lie down for 30minutes. omeprazole (PRILOSEC) 20 mg capsule Take 1 capsule by mouth daily before breakfast. 1/2 hr before meal. PARoxetine (PAXIL) 20 mg tablet Take 1 tablet by mouth once daily. lisinopril 2.5 mg tablet Take 1 tablet by mouth once daily. Fill this RX w (more content not included)... [facility] 01-11-2025 History of Present illness Narrative This note was created using [employer]. Subjective Kiesha Colvin is a 84 year old female. Patient presents with: 6 month f/up Kiesha is a 84-year-old female with a history of urinary incontinence, presenting for a 6-month follow-up visit. Kiesha reports ongoing urinary incontinence, characterized by an inability to hold urine when the urge to void arises. She denies frequent urination or leakage with coughing or sneezing. She has been performing Kegel exercises, which have provided some improvement but not complete resolution of symptoms. She has not yet tried saw palmetto due to concerns about potential side effects. She previously tried Detrol and Myrbetriq, prescribed by Dr. Thurston, a urologist, but found them ineffective. She denies dysuria. Kiesha recently underwent foot surgery for an ulcer and a non-healing bedsore, which developed during a 6-week period of immobility following ligament surgery. She reports soreness at the surgical site, managed with extra-strength Tylenol, and notes swelling and partial numbness. She is able to sleep well at night. She is scheduled for a follow-up appointment tomorrow to assess the healing progress. She also requests a refill for her EpiPen, which was last prescribed in 2022. She is currently taking Flonase, Fosamax, omeprazole, paroxetine, lisinopril, and amlodipine. Stable on meds without adverse effects. PAST MEDICAL HISTORY Diagnosis Date ANEMIA NOS 04/21/2009 Colonoscopy in 10-11: tics and hems with no polpys Started iron as an inpt per Dr. Sales: pt reportedly giving multiple blood donations Hct 33% in 04-13, 06-14 Iron 72, Ferritin 162 (8-252), TIBC 344 in 06-14: stop iron supplements and repeat levels in follow up Anxiety state, unspecified PCP follows Arthritis Bee sting allergy goes into shock, honey bees only CELLULITIS NOS 04/18/2009 WBC 9 K, ESR 118 in 04-13 for cellulitis of R foot Empiric Levaquin for R foot in 04-13: rec to return to Podiatry Admitted 04-19-09 for cellulitis: discharged on Doxy and rec to ID (MRI of the R foot negative for osteo)/ no current issue 01/05/25 Depressive disorder, not elsewhere classified PCP follows Diverticulosis of colon (without mention of hemorrhage) PCP follows Family history of malignant neoplasm of gastrointestinal tract family history of colon cancer Foot drop, right 09/22/2024 no current issue 2024 GERD (gastroesophageal reflux disease) PCP follows Hypertension controlled with meds PCP follows 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 foot/no current issue 2024 Palpitations had for years cardiac workup negative per pt 2024/ Dr. Akbar Pure hypercholesterolemia PCP follows Sleep apnea cpap compliant Urge incontinence of urine 11/23/2009 Varicose veins 06/02/2012 VITAMIN D DEFICIENCY NOS 03/05/2009 Vitamin D 23 (32-100) in 01-12, 29 in 06-14 Vit D 05/21/10 [facility] is 28.8. To continue the vit D 50,000 one po weekly Current Outpatient Medications Medication Sig acetaminophen (TYLENOL 8 HOUR) 650 mg CR tablet Take 650 mg by mouth every 8 hours as needed for pain. SUNFLOWER OIL-PARSLEY SEED OIL ORAL Take 1 Dose by mouth once daily. Last dose 01/05 due to surgery Flaxseed Oil oil Last dose 01/05 due to surgery amLODIPine (NORVASC) 5 mg tablet Take 1 tablet by mouth once daily. As directed atorvastatin (LIPITOR) 20 mg tablet Take one (1) tablet by mouth every evening at 9pm Cholecalciferol, Vitamin D3, 25 mcg (1,000 unit) cap Take 1 capsule by mouth once daily. ferrous sulfate 325 mg (65 mg iron) tablet Take 325 mg by mouth daily with breakfast. fluticasone (FLONASE) 50 mcg/actuation nasal spray Use 2 Sprays in each nostril once daily. As needed. Rinse mouth after use. ASPIRIN 81 MG TAB Take 81 mg by mouth once daily. No instructions to hold PACC 01/05 MULTIVITAMIN TAB Take 1 tablet by mouth once daily. Last dose /2 due to surgery solifenacin (VESICARE) 10 mg tablet Take 1 tablet by mouth once daily. EPINEPHrine (EPIPEN 2-MAKI) 0.3 mg/0.3 mL auto-injector Inject 0.3 mL intramuscularly as needed. alendronate (FOSAMAX) 70 mg tablet Take 1 tablet by mouth one time a week. Take with a full glass of water, on an empty stomach; do NOT lie down for 30minutes. omeprazole (PRILOSEC) 20 mg capsule Take 1 capsule by mouth daily before breakfast. 1/2 hr before meal. PARoxetine (PAXIL) 20 mg tablet Take 1 tablet by mouth once daily. lisinopril 2.5 mg tablet Take 1 tablet by mouth once daily. Fill this RX when due; cancel refills on prior RX No current facility-administered medications for this visit. Review of Systems Objective BP 110/60 Pulse 68 Resp 12 Wt 81.6 kg (180 lb) SpO2 98% BMI 29.05 kg/m Physical Exam Constitutional: Appearance: Normal appearance. HENT: Head: Normocephalic. Eyes: Conjunctiva/sclera: Conjunctivae normal. Cardiovascular: Rate and Rhythm: Normal rate and regular rhythm. Heart sounds: Normal heart sounds. Comments: Right foot wrapped with MINDY wrap. Wearing post op shoe on right Pulmonary: Effort: Pulmonary effort is normal. Breath sounds: Normal breath sounds. Musculoskeletal: Right lower le+ Pitting Edema present. Left lower le+ Pitting Edema present. Skin: General: Skin is warm and dry. Neurological: General: No focal deficit present. Mental Status: She is alert and oriented to person, place, and time. Psychiatric: Mood and Affect: Mood normal. Behavior: Behavior normal. Thought Content: Thought content normal. Judgment: Judgment normal. Assessment and Plan # Urge incontinence of urine (N39.41) # Irritable bladder (N32.89) - Discussed potential use of saw palmetto; reviewed current literature and found no definitive studies supporting its efficacy for urinary incontinence in women. Potential side effects include nausea, vomiting, diarrhea, constipation, headache, dizziness, and decreased libido. - Previously trialed Detrol, Myrbetriq, and Ditropan with inadequate response. - Prescribed Vesicare 10 mg orally once daily; potential side effects include dry mouth, dry eyes, and constipation. Advised patient to halve the dose if side effects are intolerable. - Continue Kegel exercises to strengthen pelvic floor muscles. - Follow-up in 3-7 days to assess efficacy of Vesicare. # Osteopenia of neck of right femur (M85.851) - Refilled Fosamax prescription; due in March. # Anxiety state (F41.1) - Refilled paroxetine prescription; due in March. # H/O bee sting allergy (Z91.030) - Refilled EpiPen prescription; sent to [facility] pharmacy. # Ulcer of right foot, unspecified ulcer stage (HCC) (L97.519) - Recent debridement performed by Dr. Mirian Bowens using sheeps gut to stimulate healing. - Follow-up appointment scheduled for tomorrow to assess healing progress. - Managing pain with Tylenol as needed. # Encounter for long-term current use of medication (Z79.899) - Refilled medications: Fosamax, EpiPen, lisinopril, omeprazole, and paroxetine. # Primary hypertension (I10) - Refilled lisinopril prescription; due in March. # Osteoarthrosis multiple sites, 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 generalized (M89.49) Continue present symptom management. # Stage 3a chronic kidney disease (HCC) (N18.31) Follow up on labs. Continue efforts at kidney protection with BP and blood sugar control and staying hydrated. # IFG (impaired fasting glucose) (R73.01) Follow up on labs. Stay as active as able. Healthy diet but does not need to be overly restrictive. I spent a total of 39 minutes on the date of the service which included [id number] patient care, completing clinical documentation, obtaining and/or reviewing separately obtained history, performing a medically appropriate examination, counseling and educating the patient/family/caregiver, and ordering medications, tests, or procedures. Lianet Sullivan MD The patient consented to the use of [employer] software for draft documentation of the visit consistent with [facility] s Notice of Privacy Practices. documented in this encounter [facility] 01-07-2025 Nurse Note Fall risk designation communicated in handoff. Individualized high fall risk precautions reviewed and in use. Reinforced educaton of patient to call for help prior to getting out of bed, requesting a family member be present when patient changes clothes, and cooperation requested of patient/family with fall risk interventions. Up to restroom with assist -.In post op shoe-uses walker for WBAT to RLE [facility] 01-07-2025 Nurse Note Fall risk designation communicated in handoff. Individualized high fall risk precautions reviewed and in use. Reinforced educaton of patient to call for help prior to getting out of bed, requesting a family member be present when patient changes clothes, and cooperation requested of patient/family with fall risk interventions. Up to restroom with assist -.In post op shoe-uses walker for WBAT to RLE Fall risk designation communicated in handoff. Individualized high fall risk precautions reviewed and in use. Reinforced educaton of patient to call for help prior to getting out of bed, requesting a family member be present when patient changes clothes, and cooperation requested of patient/family with fall risk interventions. Rounded and updated patient Individualized high fall risk precautions in use. Fall risk signage posted at nurses' station. Fall risk designation communicated in handoff. Reinforced education of patient to call for help prior to getting out of bed, requesting a family member be present when patient changes clothes, and cooperation requested of patient/family with fall risk interventions. documented in this encounter [facility] 01-07-2025 Note Formatting of this n ote might be different from the original. Pt to continue home medications per Dr Liu's instructions. [facility] 01-07-2025 Miscellaneous Notes Pt to continue home medications per Dr Liu's instructions. 84yo male, exsmoker. PMH: +CHARLENE cpap compliant, palpitations, HTN, HLD, GERD, anemia, R heel pressure ulcer, ideopathic neuropathy, previous foot surgery 2/2 osteomyelitis, anxiety/depression, R foot drop. Takes ASA with no instructions to stop. On renal protective dose of lisinopril. Stress test 2022: EF 82%, neg ischemia/infarct View External Cardiology - Stress Test [ID [id number]] ECHO 2018 EF 60%, stage 2 DD, mild 1+ TR View External Cardiology - Echo [ID [id number]] documented in this encounter [facility] 01-07-2025 Nurse Note Fall risk designation communicated in handoff. Individualized high fall risk precautions reviewed and in use. Reinforced educaton of patient to call for help prior to getting out of bed, requesting a family member be present when patient changes clothes, and cooperation requested of patient/family with fall risk interventions. [facility] 01-07-2025 Note HNO ID: [id number] Author: CHRIS PERRY AA Service: ? Author Type: Artist Representative Type: Anesthesia Procedure Notes Filed: 01/07/2025 14:36 Note Text: ANESTHESIOLOGY PROCEDURE NOTE Airway General Information Procedure Start Time/Medication Administration: 01/07/2025 2:12 PM Procedure End Time: 01/07/2025 2:12 PM Patient location during procedure: OR Timeout Performed Pre-procedure: timeout performed Consent Obtained: Yes Patient identity confirmed: arm band and patient Staffing Anesthesiologist: Bienvenido Garcia DO CAA: Chris Perry AA Performed by: SHAKA student Indications and Patient Condition Indications for airway management: anesthesia Preoxygenated: yes anesthesia circuit Method: asleep Cricoid Pressure: No Manual In-Line Stabilization: No Final Airway Details Final airway type: supraglottic airway Number of attempts at approach: 1 Final Supraglottic Airway: LMA Unique Size 4 Seal Adequate: yes Failed airway: no Unrecognized esophageal intubation: no Airway not difficult SIGNATURE: ANGIE Lima PATIENT NAME: Kiesha Colvin DATE: January 07, 2025 TIME: 2:35 PM CSN: [id number] [facility] 01-07-2025 Hospital Discharge instructions Bj Rubin DPM - 01/07/2025 2:17 PM EDT PODIATRY POST-OPERATIVE INSTRUCTIONS Immediately following discharge, limit your activities as instructed. Please keep small children and pets away from the operative limb. Elevation - Swelling to some degree is common after surgery. To reduce swelling and expedite healing the operative limb must be elevated above the level of the heart using several (2-3) pillows for at least 14 days after surgery. Please see example below: Icing - Apply an ice pack or two bags of frozen vegetables to the back of the knee on the operative limb for 15-20 minutes at least 2-3 times per day. This will cool the blood entering the lower extremity and help with pain and swelling. DO NOT leave ice on for longer than 20 minutes. DO NOT utilize any form of heat therapy in the place of icing. Dressing Care - keep bandages and/or cast clean, dry and intact at ALL times. Under no circumstances should you attempt to remove your bandage/cast. If you have a cast on do not, under any circumstances, attempt to put anything inside the cast to scratch the itch . Weight bearing - Weight bearing to the operative limb ONLY as instructed by your physician. If non-weight bearing please utilize assistive devices as instructed (i.e. crutches, walker, wheelchair or knee scooter). Prescriptions - Please have any prescriptions filled as soon as possible and begin taking your medication as directed. DO NOT drink alcoholic beverages or smoke while taking your sleep or pain medications. DO NOT drive a car or other vehicles or operate any machinery while under the influence of your medication. Bathing - Sponge baths are the preferred and safest method for maintaining hygiene. If a shower is utilized, care must be taken to avoid getting the bandage/cast wet. If your bandage/cast does become saturated please let your physician know AT ONCE. DO NOT attempt to bathe or shower with a plastic bag over your cast or dressings. It is dangerous to do so and may result in an accident, causing you to slip and damage the surgery done. Calf Massage - Please perform manual massage to the calf and thigh muscles once an hour while you are awake to help prevent a blood clot. 9. When to seek medical attention: Call 911 immediately with any of the following: - Chest Pain - Shortness of breath Otherwise, call your doctor immediately if you have any of the following: - Your bandage/cast has become wet - Significant increase in the diameter of the calf (swelling) w/ pain or redness - Fever above 101 or chills (PLEASE TAKE TEMP REGULARLY FOLLOWING SURGERY) - Significant increase in pain without inciting event - Persistent numbness, tingling or burning sensations in your foot/ankle which are not relieved by elevation - Drainage, redness or feelings of warmth at the incision site We are interested in your prompt and complete recovery from your surgery. If you have any problems, questions or concerns regarding your recovery, please call the office number and explain that your surgery was recently performed. Dr Ambrose Liu DPM, FACFAS documented in this encounter [facility] 01-07-2025 Note HNO ID: [id number] Author: PAULA BOLES RN Service: Nursing Author Type: Registered Nurse Type: Nursing Progress Note Filed: 01/07/2025 12:39 Note Text: Rounded and updated patient [facility] 01-07-2025 Nurse Note Rounded and updated patient [facility] 01-07-2025 Nurse Note Individualized high fall risk precautions in use. Fall risk signage posted at nurses' station. Fall risk designation communicated in handoff. Reinforced education of patient to call for help prior to getting out of bed, requesting a family member be present when patient changes clothes, and cooperation requested of patient/family with fall risk interventions. [facility] 01-07-2025 History and physical note HISTORY AND PHYSICAL EXAMINATION SERVICE DATE: 01/07/2025 SERVICE TIME: 10:30AM PRIMARY CARE PHYSICIAN: Lianet Sullivan MD Subjective CHIEF COMPLAINT: right foot wound HPI: This is a 84 year old female with PMH of HTN, HLD, Vitamin D deficiency, and neuropathy presents with right foot wound. Patient has been followed outpatient with local wound care for some time now and is here for wound debridement with graft application. FUNCTIONAL STATUS: Independent PAST MEDICAL HISTORY Diagnosis Date ANEMIA NOS 04/21/2009 Colonoscopy in 10-11: tics and hems with no polpys Started iron as an inpt per Dr. Sales: pt reportedly giving multiple blood donations Hct 33% in 04-13, 06-14 Iron 72, Ferritin 162 (8-252), TIBC 344 in 06-14: stop iron supplements and repeat levels in follow up Anxiety state, unspecified PCP follows Arthritis Bee sting allergy goes into shock, honey bees only CELLULITIS NOS 04/18/2009 WBC 9 K, ESR 118 in 04-13 for cellulitis of R foot Empiric Levaquin for R foot in 04-13: rec to return to Podiatry Admitted 04-19-09 for cellulitis: discharged on Doxy and rec to ID (MRI of the R foot negative for osteo)/ no current issue 01/05/25 Depressive disorder, not elsewhere classified PCP follows Diverticulosis of colon (without mention of hemorrhage) PCP follows Family history of malignant neoplasm of gastrointestinal tract family history of colon cancer Foot drop, right 09/22/2024 no current issue 2024 GERD (gastroesophageal reflux disease) PCP follows Hypertension controlled with meds PCP follows 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 foot/no current issue 2024 Palpitations had for years cardiac workup negative per pt 2024/ Dr. Akbar Pure hypercholesterolemia PCP follows Sleep apnea cpap compliant Urge incontinence of urine 11/23/2009 Varicose veins 06/02/2012 VITAMIN D DEFICIENCY NOS 03/05/2009 Vitamin D 23 (32-100) in 01-12, 29 in 06-14 Vit D 05/21/10 [facility] is 28.8. To continue the vit D 50,000 one po weekly PAST SURGICAL HISTORY Procedure Laterality Date ABDOMINAL SURGERY HX APPENDECTOMY HX ARTHRP KNE CONDYLE&PLATU MEDIAL&LAT COMPARTMENTS Right 01/01/2016 Knee replacement, total ARTHRP KNE CONDYLE&PLATU MEDIAL&LAT COMPARTMENTS Left 09/09/2016 CHOLECYSTECTOMY Cholecystectomy COLONOSCOPY FLX DX W/COLLJ SPEC WHEN PFRMD 01/17/1999 Colonoscopy COLONOSCOPY FLX DX W/COLLJ SPEC WHEN PFRMD 10/10/2005 Colonoscopy COLONOSCOPY FLX DX W/COLLJ SPEC WHEN PFRMD 02/05/2011 COLONOSCOPY FLX DX W/COLLJ SPEC WHEN PFRMD 03/25/2016 Colonoscopy COLONOSCOPY FLX DX W/COLLJ SPEC WHEN PFRMD 02/20/2021 ESOPHAGOGASTRODUODENOSCOPY TRANSORAL DIAGNOSTIC 02/20/2021 EYE SURGERY HX Bilateral cataracts JOINT REPLACEMENT HX OOPHORECTOMY PARTIAL/TOTAL UNI/BI Oophorectomy TOTAL ABDOMINAL HYSTERECT W/WO RMVL TUBE OVARY 1970s Hysterectomy, NIRMALA VAGINAL HYSTERECTOMY VASCULAR SURGERY PROCEDURE vein stripping WOUND DEBRIDEMENT PROCEDURE (W NOTE) 09/22/2024 Rt foot FAMILY HISTORY Problem Relation Age of Onset Colon Cancer Mother diagnosed about age 45. at 49 Heart Father Colon Cancer Sister diagnosed (and passed) at age 68 None Sister coln polyp removed COPD Brother Stroke Brother IC hemorrhage Social History Tobacco Use Smoking status: Former Current packs/day: 0.00 Average packs/day: 1 pack/day for 20.0 years (20.0 ttl pk-yrs) Types: Cigarettes Start date: 10/06/1958 Quit date: 10/06/1978 Years since quittin.2 Smokeless tobacco: Never Vaping Use Vaping status: Never Used Substance Use Topics Alcohol use: No Drug use: No Prior to Admission Medications Prescriptions Last Dose Informant Patient Reported? Taking? ASPIRIN 81 MG TAB Yes Yes Sig: Take 81 mg by mouth once daily. No instructions to hold PACC 01/05 Cholecalciferol, Vitamin D3, 25 mcg (1,000 unit) cap No Yes Sig: Take 1 capsule by mouth once daily. Patient taking differently: Take 1,000 Units by mouth once daily. Last dose 01/05 due to surgery EPINEPHrine (EPIPEN 2-MAKI) 0.3 mg/0.3 mL auto-injector No Yes Sig: Inject 0.3 mL intramuscularly as needed. Flaxseed Oil oil Yes Yes Sig: Last dose 01/05 due to surgery MULTIVITAMIN TAB Yes Yes Sig: Take 1 tablet by mouth once daily. Last dose 01/05 due to surgery PARoxetine (PAXIL) 20 mg tablet No Yes Sig: Take 1 tablet by mouth once daily. SUNFLOWER OIL-PARSLEY SEED OIL ORAL Yes Yes Sig: Take 1 Dose by mouth once daily. Last dose 01/05 due to surgery acetaminophen (TYLENOL 8 HOUR) 650 mg CR tablet Yes Yes Sig: Take 650 mg by mouth every 8 hours as needed for pain. alendronate (FOSAMAX) 70 mg tablet No Yes Sig: Take 1 tablet by mouth one time a week. Take with a full glass of water, on an empty stomach; do NOT lie down for 30minutes. amLODIPine (NORVASC) 5 mg tablet No Yes Sig: Take 1 tablet by mouth once daily. As directed atorvastatin (LIPITOR) 20 mg tablet No Yes Sig: Take one (1) tablet by mouth every evening at 9pm ferrous sulfate 325 mg (65 mg iron) tablet Yes Yes Sig: Take 325 mg by mouth daily with breakfast. fluticasone (FLONASE) 50 mcg/actuation nasal spray No Yes Sig: Use 2 Sprays in each nostril once daily. As needed. Rinse mouth after use. lisinopril 2.5 mg tablet No Yes Sig: Take 1 tablet by mouth once daily. omeprazole (PRILOSEC) 20 mg capsule No Yes Sig: Take 1 capsule by mouth daily before breakfast. 1/2 hr before meal. Facility-Administered Medications: None ALLERGIES Allergen Reactions Bee Sting Anaphylaxis, Other: See Comments Honey bees only Keflex [Cephalexin] Rash, Other: See Comments Headache Penicillins COMPLETE REVIEW OF SYSTEMS: PAIN ASSESSMENT: Negative for pain, history of chronic pain, or current treatment for a chronic pain condition. RESPIRATORY: Negative for cough, hemoptysis, wheezing, COPD, dyspnea or shortness of breath CARDIOVASCULAR: Negative for chest pain, leg swelling, hypertension, CHF or palpitations GI: No nausea, vomiting, or diarrhea MUSCULOSKELETAL: Negative for joint pain or swelling, back pain or muscle pain SKIN: Positive for ulcers: right foot NEURO: No history of headaches, syncope, paralysis, seizures or tremors Objective PHYSICAL EXAM: Physical Exam Performed: SKIN: Skin color, texture, turgor normal. No rashes or lesions., Positive findings: Ulcers LUNGS: Lungs clear to auscultation, Good diaphragmatic excursion CARDIAC: Normal S1 and S2; no rubs, murmurs, or gallops EXTREMITIES: Extremities normal, no deformities, edema, clubbing or skin discoloration. Good capillary refill., Positive findings: right foot ulceration NEURO: Gait normal. Reflexes normal and symmetric. Sensation grossly intact, Cranial nerves II-XII intact PULSES: 2+ posterial tibial, 2+ dorsalis pedis BP 126/61[LA[ Pulse 66 Temp (Src) 97.3 (Temporal) Ht 5' 6 (1.68m) Wt 185 lb 1.6 oz (84.0kg) SpO2 95% BMI 29.89 kg/(m^2). O2 Therapy: Room Air DATA: Diagnostic tests reviewed for today's visit: Most recent labs and imaging results. 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 Patient to be discharged after the case with the appropriate pain medication. Patient will follow up post operatively with Dr. Liu Assessment & Plan Preop testing Medication and Non-Pharmacologic VTE Prophylaxis/Anticoagulants VTE Prophylaxis: VTE prophylaxis appropriate SIGNATURE: Bj Rubin DPM PATIENT NAME: Kiesha Colvin DATE: January 07, 2025 TIME: 10:29 AM Cosigned by Ambrose Liu DPM at 01/07/2025 1:38 PM EDT Associated attestation - Ambrose Liu DPM - 01/07/2025 1:38 PM EDT Patient was seen and evaluated and they understand all risks and complications about her surgery and all risks complicatiions discussed with the patient [facility] Work Phone: 01-07-2025 History and physical note HISTORY AND PHYSICAL EXAMINATION SERVICE DATE: 01/07/2025 SERVICE TIME: 10:30AM PRIMARY CARE PHYSICIAN: Lianet Sullivan MD Subjective CHIEF COMPLAINT: right foot wound HPI: This is a 84 year old female with PMH of HTN, HLD, Vitamin D deficiency, and neuropathy presents with right foot wound. Patient has been followed outpatient with local wound care for some time now and is here for wound debridement with graft application. FUNCTIONAL STATUS: Independent PAST MEDICAL HISTORY Diagnosis Date ANEMIA NOS 04/21/2009 Colonoscopy in 10-11: tics and hems with no polpys Started iron as an inpt per Dr. Sales: pt reportedly giving multiple blood donations Hct 33% in 04-13, 06-14 Iron 72, Ferritin 162 (8-252), TIBC 344 in 06-14: stop iron supplements and repeat levels in follow up Anxiety state, unspecified PCP follows Arthritis Bee sting allergy goes into shock, honey bees only CELLULITIS NOS 04/18/2009 WBC 9 K, ESR 118 in 04-13 for cellulitis of R foot Empiric Levaquin for R foot in 04-13: rec to return to Podiatry Admitted 04-19-09 for cellulitis: discharged on Doxy and rec to ID (MRI of the R foot negative for osteo)/ no current issue 01/05/25 Depressive disorder, not elsewhere classified PCP follows Diverticulosis of colon (without mention of hemorrhage) PCP follows Family history of malignant neoplasm of gastrointestinal tract family history of colon cancer Foot drop, right 09/22/2024 no current issue 2025 GERD (gastroesophageal reflux disease) PCP follows Hypertension controlled with meds PCP follows 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 foot/no current issue 2024 Palpitations had for years cardiac workup negative per pt 2024/ Dr. Akbar Pure hypercholesterolemia PCP follows Sleep apnea cpap compliant Urge incontinence of urine 11/23/2009 Varicose veins 06/02/2012 VITAMIN D DEFICIENCY NOS 03/05/2009 Vitamin D 23 (32-100) in 01-12, 29 in 06-14 Vit D 05/21/10 [facility] is 28.8. To continue the vit D 50,000 one po weekly PAST SURGICAL HISTORY Procedure Laterality Date ABDOMINAL SURGERY HX APPENDECTOMY HX ARTHRP KNE CONDYLE&PLATU MEDIAL&LAT COMPARTMENTS Right 01/01/2016 Knee replacement, total ARTHRP KNE CONDYLE&PLATU MEDIAL&LAT COMPARTMENTS Left 09/09/2016 CHOLECYSTECTOMY Cholecystectomy COLONOSCOPY FLX DX W/COLLJ SPEC WHEN PFRMD 01/17/1999 Colonoscopy COLONOSCOPY FLX DX W/COLLJ SPEC WHEN PFRMD 10/10/2005 Colonoscopy COLONOSCOPY FLX DX W/COLLJ SPEC WHEN PFRMD 02/05/2011 COLONOSCOPY FLX DX W/COLLJ SPEC WHEN PFRMD 03/25/2016 Colonoscopy COLONOSCOPY FLX DX W/COLLJ SPEC WHEN PFRMD 02/20/2021 ESOPHAGOGASTRODUODENOSCOPY TRANSORAL DIAGNOSTIC 02/20/2021 EYE SURGERY HX Bilateral cataracts JOINT REPLACEMENT HX OOPHORECTOMY PARTIAL/TOTAL UNI/BI Oophorectomy TOTAL ABDOMINAL HYSTERECT W/WO RMVL TUBE OVARY 1970s Hysterectomy, NIRMALA VAGINAL HYSTERECTOMY VASCULAR SURGERY PROCEDURE vein stripping WOUND DEBRIDEMENT PROCEDURE (W NOTE) 09/22/2024 Rt foot FAMILY HISTORY Problem Relation Age of Onset Colon Cancer Mother diagnosed about age 45. at 49 Heart Father Colon Cancer Sister diagnosed (and passed) at age 68 None Sister coln polyp removed COPD Brother Stroke Brother IC hemorrhage Social History Tobacco Use Smoking status: Former Current packs/day: 0.00 Average packs/day: 1 pack/day for 20.0 years (20.0 ttl pk-yrs) Types: Cigarettes Start date: 10/06/1958 Quit date: 10/06/1978 Years since quittin.2 Smokeless tobacco: Never Vaping Use Vaping status: Never Used Substance Use Topics Alcohol use: No Drug use: No Prior to Admission Medications Prescriptions Last Dose Informant Patient Reported? Taking? ASPIRIN 81 MG TAB Yes Yes Sig: Take 81 mg by mouth once daily. No instructions to hold PACC 01/05 Cholecalciferol, Vitamin D3, 25 mcg (1,000 unit) cap No Yes Sig: Take 1 capsule by mouth once daily. Patient taking differently: Take 1,000 Units by mouth once daily. Last dose 01/05 due to surgery EPINEPHrine (EPIPEN 2-MAKI) 0.3 mg/0.3 mL auto-injector No Yes Sig: Inject 0.3 mL intramuscularly as needed. Flaxseed Oil oil Yes Yes Sig: Last dose 01/05 due to surgery MULTIVITAMIN TAB Yes Yes Sig: Take 1 tablet by mouth once daily. Last dose 01/05 due to surgery PARoxetine (PAXIL) 20 mg tablet No Yes Sig: Take 1 tablet by mouth once daily. SUNFLOWER OIL-PARSLEY SEED OIL ORAL Yes Yes Sig: Take 1 Dose by mouth once daily. Last dose 01/05 due to surgery acetaminophen (TYLENOL 8 HOUR) 650 mg CR tablet Yes Yes Sig: Take 650 mg by mouth every 8 hours as needed for pain. alendronate (FOSAMAX) 70 mg tablet No Yes Sig: Take 1 tablet by mouth one time a week. Take with a full glass of water, on an empty stomach; do NOT lie down for 30minutes. amLODIPine (NORVASC) 5 mg tablet No Yes Sig: Take 1 tablet by mouth once daily. As directed atorvastatin (LIPITOR) 20 mg tablet No Yes Sig: Take one (1) tablet by mouth every evening at 9pm ferrous sulfate 325 mg (65 mg iron) tablet Yes Yes Sig: Take 325 mg by mouth daily with breakfast. fluticasone (FLONASE) 50 mcg/actuation nasal spray No Yes Sig: Use 2 Sprays in each nostril once daily. As needed. Rinse mouth after use. lisinopril 2.5 mg tablet No Yes Sig: Take 1 tablet by mouth once daily. omeprazole (PRILOSEC) 20 mg capsule No Yes Sig: Take 1 capsule by mouth daily before breakfast. 1/2 hr before meal. Facility-Administered Medications: None ALLERGIES Allergen Reactions Bee Sting Anaphylaxis, Other: See Comments Honey bees only Keflex [Cephalexin] Rash, Other: See Comments Headache Penicillins COMPLETE REVIEW OF SYSTEMS: PAIN ASSESSMENT: Negative for pain, history of chronic pain, or current treatment for a chronic pain condition. RESPIRATORY: Negative for cough, hemoptysis, wheezing, COPD, dyspnea or shortness of breath CARDIOVASCULAR: Negative for chest pain, leg swelling, hypertension, CHF or palpitations GI: No nausea, vomiting, or diarrhea MUSCULOSKELETAL: Negative for joint pain or swelling, back pain or muscle pain SKIN: Positive for ulcers: right foot NEURO: No history of headaches, syncope, paralysis, seizures or tremors Objective PHYSICAL EXAM: Physical Exam Performed: SKIN: Skin color, texture, turgor normal. No rashes or lesions., Positive findings: Ulcers LUNGS: Lungs clear to auscultation, Good diaphragmatic excursion CARDIAC: Normal S1 and S2; no rubs, murmurs, or gallops EXTREMITIES: Extremities normal, no deformities, edema, clubbing or skin discoloration. Good capillary refill., Positive findings: right foot ulceration NEURO: Gait normal. Reflexes normal and symmetric. Sensation grossly intact, Cranial nerves II-XII intact PULSES: 2+ posterial tibial, 2+ dorsalis pedis BP 126/61[LA[ Pulse 66 Temp (Src) 97.3 (Temporal) Ht 5' 6 (1.68m) Wt 185 lb 1.6 oz (84.0kg) SpO2 95% BMI 29.89 kg/(m^2). O2 Therapy: Room Air DATA: Diagnostic tests reviewed for today's visit: Most recent labs and imaging results. 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 Patient to be discharged after the case with the appropriate pain medication. Patient will follow up post operatively with Dr. Liu Assessment & Plan Preop testing Medication and Non-Pharmacologic VTE Prophylaxis/Anticoagulants VTE Prophylaxis: VTE prophylaxis appropriate SIGNATURE: Bj Rubin DPM PATIENT NAME: Kiesha Colvin DATE: January 07, 2025 TIME: 10:29 AM Cosigned by Ambrose Liu DPM at 01/07/2025 1:38 PM EDT Associated attestation - Ambrose Liu DPM - 01/07/2025 1:38 PM EDT Patient was seen and evaluated and they understand all risks and complications about her surgery and all risks complicatiions discussed with the patient documented in this encounter [facility] 01-06-2025 Note HNO ID: [id number] Author: NELY GRIFFITHS RN Service: Nursing Author Type: Registered Nurse Type: Progress Notes Filed: 01/06/2025 14:24 Note Text: PRE-PROCEDURE INSTRUCTIONS TO PREPARE FOR YOUR PROCEDURE: Your arrival time for your procedure is 1000. Do NOT eat any solid foods after MIDNIGHT the night prior to your procedure - this includes gum or mints. You can drink clear liquids* up until 0800, which is 2 hours before your arrival time. *Clear liquids = water, carbohydrate drink (sports drink that is clear or yellow in color), Ensure Pre-Surgery (given by DEJA or russel Porras), fruit juice without pulp (apple/cranberry), clear tea, black coffee (no cream). NO CARBONATED BEVERAGES AND NO ALCOHOL. Shower the morning of the procedure, put on clean clothes, and have clean sheets for your bed to help prevent infection after your procedure. Leave all valuables such as jewelry including rings, piercings, wallets, and purses at home. Wear comfortable, loose-fitting clothing. If you wear glasses or contacts, please bring a case. SPECIAL INSTRUCTIONS: If instructed, bring your first voided urine specimen with you. If you were provided skin preparation to use prior to your procedure, complete this as directed. If you were provided Ensure Pre-Surgery drink, you need to drink this at na. This should be consumed quickly (in less than 5 minutes, rather than sipped over time) If a bowel preparation has been ordered by your physician, it is very important to follow the bowel prep instructions or your procedure may need to be rescheduled. If you use crutches or a walker, bring them with you. If you have a home CPAP/BIPAP machine, bring it with you. If you were instructed to complete a fleets enema or bowel prep, complete as directed. Bring copy of Living Will/Power of Portable Irrigation Operator. Do not smoke or chew. If you use tobacco, quit or at least cut down before surgery. Do not smoke or chew after midnight the day before your surgery. This effects bleeding, infection, healing, and so much more. Do not take any Diet or Herbal Supplements 2 weeks prior to your surgery date. Please notify your physician if there is any change in your physical condition such as a cold, cough, fever, sore throat, or skin irritation near the surgical site. Visitors under the age of 14 are restricted in the Surgery Center. UPON ARRIVAL: Access to [facility] is located on [address] [place] parking is available for your convenience from 5am-5pm- there is a $5.00 charge for this service. Take the elevators directly inside the entrance to the 1st Floor Surgery Lobby. Sign in at the podium located to the left when you get off the elevators. A payment may be expected at the time of service. One visitor may come back to the preoperative area with you. The preoperative staff will be reviewing your medical history, please let them know if you prefer not to have a visitor with you during this time. Once you are ready for your procedure, two visitors at a time are permitted in your preprocedure room. MEDICATION INSTRUCTIONS PRIOR TO SURGERY Please read below carefully for your personalized instructions. Medications: If you are on blood thinner or anticoagulants including aspirin, please confirm with your surgical team on when to stop these medications. Unless instructed differently by your surgical team, stay on all of your medications until your surgery. Pre-Surgery Med Instructions Medication Instructions acetaminophen (TYLENOL 8 HOUR) 650 mg CR tablet PRN if needed alendronate (FOSAMAX) 70 mg tablet DO NOT TAKE MORNING OF SURGERY amLODIPine (NORVASC) 5 mg tablet If you normally take this medication in the morning, it is ok to take the morning of surgery with a sip of water. ASPIRIN 81 MG TAB Follow Prescribers Instructions atorvastatin (LIPITOR) 20 mg tablet If you normally take this medication in the morning, it is ok to take the morning of surgery with a sip of water. Cholecalciferol, Vitamin D3, 25 mcg (1,000 unit) cap DO NOT TAKE MORNING OF SURGERY EPINEPHrine (EPIPEN 2-MAKI) 0.3 mg/0.3 mL auto-injector PRN if needed ferrous sulfate 325 mg (65 mg iron) tablet DO NOT TAKE MORNING OF SURGERY Flaxseed Oil oil DO NOT TAKE MORNING OF SURGERY fluticasone (FLONASE) 50 mcg/actuation nasal spray PRN if needed lisinopril 2.5 mg tablet DO NOT TAKE MORNING OF SURGERY MULTIVITAMIN TAB DO NOT TAKE MORNING OF SURGERY omeprazole (PRILOSEC) 20 mg capsule If you normally take this medication in the morning, it is ok to take the morning of surgery with a sip of water. PARoxetine (PAXIL) 20 mg tablet If you normally take this medication in the morning, it is ok to take the morning of surgery with a sip of water. SUNFLOWER OIL-PARSLEY SEED OIL ORAL DO NOT TAKE MORNING OF SURGERY If you have any medication changes between receiving these instructions and your s (more content not included)... [facility] 01-06-2025 History of Present illness Narrative PRE-PROCEDURE INSTRUCTIONS TO PREPARE FOR YOUR PROCEDURE: Your arrival time for your procedure is 1000. Do NOT eat any solid foods after MIDNIGHT the night prior to your procedure - this includes gum or mints. You can drink clear liquids* up until 0800, which is 2 hours before your arrival time. *Clear liquids = water, carbohydrate drink (sports drink that is clear or yellow in color), Ensure Pre-Surgery (given by DEJA or russel Porras), fruit juice without pulp (apple/cranberry), clear tea, black coffee (no cream). NO CARBONATED BEVERAGES & NO ALCOHOL. Shower the morning of the procedure, put on clean clothes, and have clean sheets for your bed to help prevent infection after your procedure. Leave all valuables such as jewelry including rings, piercings, wallets, and purses at home. Wear comfortable, loose-fitting clothing. If you wear glasses or contacts, please bring a case. SPECIAL INSTRUCTIONS: If instructed, bring your first voided urine specimen with you. If you were provided skin preparation to use prior to your procedure, complete this as directed. If you were provided Ensure Pre-Surgery drink, you need to drink this at na. This should be consumed quickly (in less than 5 minutes, rather than sipped over time) If a bowel preparation has been ordered by your physician, it is very important to follow the bowel prep instructions or your procedure may need to be rescheduled. If you use crutches or a walker, bring them with you. If you have a home CPAP/BIPAP machine, bring it with you. If you were instructed to complete a fleets enema or bowel prep, complete as directed. Bring copy of Living Will/Power of Portable Irrigation Operator. Do not smoke or chew. If you use tobacco, quit or at least cut down before surgery. Do not smoke or chew after midnight the day before your surgery. This effects bleeding, infection, healing, and so much more. Do not take any Diet or Herbal Supplements 2 weeks prior to your surgery date. Please notify your physician if there is any change in your physical condition such as a cold, cough, fever, sore throat, or skin irritation near the surgical site. Visitors under the age of 14 are restricted in the Surgery Center. UPON ARRIVAL: Access to [facility] is located on [address] [employer] parking is available for your convenience from 5am-5pm- there is a $5.00 charge for this service. Take the elevators directly inside the entrance to the 1st Floor Surgery Lobby. Sign in at the podium located to the left when you get off the elevators. A payment may be expected at the time of service. One visitor may come back to the preoperative area with you. The preoperative staff will be reviewing your medical history, please let them know if you prefer not to have a visitor with you during this time. Once you are ready for your procedure, two visitors at a time are permitted in your preprocedure room. MEDICATION INSTRUCTIONS PRIOR TO SURGERY Please read below carefully for your personalized instructions. Medications: If you are on blood thinner or anticoagulants including aspirin, please confirm with your surgical team on when to stop these medications. Unless instructed differently by your surgical team, stay on all of your medications until your surgery. Pre-Surgery Med Instructions Medication Instructions acetaminophen (TYLENOL 8 HOUR) 650 mg CR tablet PRN if needed alendronate (FOSAMAX) 70 mg tablet DO NOT TAKE MORNING OF SURGERY amLODIPine (NORVASC) 5 mg tablet If you normally take this medication in the morning, it is ok to take the morning of surgery with a sip of water. ASPIRIN 81 MG TAB Follow Prescribers Instructions atorvastatin (LIPITOR) 20 mg tablet If you normally take this medication in the morning, it is ok to take the morning of surgery with a sip of water. Cholecalciferol, Vitamin D3, 25 mcg (1,000 unit) cap DO NOT TAKE MORNING OF SURGERY EPINEPHrine (EPIPEN 2-MAKI) 0.3 mg/0.3 mL auto-injector PRN if needed ferrous sulfate 325 mg (65 mg iron) tablet DO NOT TAKE MORNING OF SURGERY Flaxseed Oil oil DO NOT TAKE MORNING OF SURGERY fluticasone (FLONASE) 50 mcg/actuation nasal spray PRN if needed lisinopril 2.5 mg tablet DO NOT TAKE MORNING OF SURGERY MULTIVITAMIN TAB DO NOT TAKE MORNING OF SURGERY omeprazole (PRILOSEC) 20 mg capsule If you normally take this medication in the morning, it is ok to take the morning of surgery with a sip of water. PARoxetine (PAXIL) 20 mg tablet If you normally take this medication in the morning, it is ok to take the morning of surgery with a sip of water. SUNFLOWER OIL-PARSLEY SEED OIL ORAL DO NOT TAKE MORNING OF SURGERY If you have any medication changes between receiving these instructions and your surgery date, please provide this updated information with the nurse who calls you the week day prior to your surgical procedure so we can update your list and provide you with updated instructions for the morning of your procedure. Summary: dos meds MEDICATION INSTRUCTIONS PRIOR TO SURGERY Please read below carefully for your personalized instructions. Medications: If you are on blood thinner or anticoagulants including aspirin, please confirm with your surgical team on when to stop these medications. Unless instructed differently by your surgical team, stay on all of your medications until your surgery. Pre-Surgery Med Instructions Medication Instructions acetaminophen (TYLENOL 8 HOUR) 650 mg CR tablet PRN if needed alendronate (FOSAMAX) 70 mg tablet DO NOT TAKE MORNING OF SURGERY amLODIPine (NORVASC) 5 mg tablet If you normally take this medication in the morning, it is ok to take the morning of surgery with a sip of water. ASPIRIN 81 MG TAB Follow Prescribers Instructions atorvastatin (LIPITOR) 20 mg tablet If you normally take this medication in the morning, it is ok to take the morning of surgery with a sip of water. Cholecalciferol, Vitamin D3, 25 mcg (1,000 unit) cap DO NOT TAKE MORNING OF SURGERY EPINEPHrine (EPIPEN 2-MAKI) 0.3 mg/0.3 mL auto-injector PRN if needed ferrous sulfate 325 mg (65 mg iron) tablet DO NOT TAKE MORNING OF SURGERY Flaxseed Oil oil DO NOT TAKE MORNING OF SURGERY fluticasone (FLONASE) 50 mcg/actuation nasal spray PRN if needed lisinopril 2.5 mg tablet DO NOT TAKE MORNING OF SURGERY MULTIVITAMIN TAB DO NOT TAKE MORNING OF SURGERY omeprazole (PRILOSEC) 20 mg capsule If you normally take this medication in the morning, it is ok to take the morning of surgery with a sip of water. PARoxetine (PAXIL) 20 mg tablet If you normally take this medication in the morning, it is ok to take the morning of surgery with a sip of water. SUNFLOWER OIL-PARSLEY SEED OIL ORAL DO NOT TAKE MORNING OF SURGERY If you have any medication changes between receiving these instructions and your surgery date, please provide this updated information with the nurse who calls you the week day prior to your surgical procedure so we can update your list and provide you with updated instructions for the morning of your procedure. documented in this encounter [facility] 01-06-2025 Note HNO ID: [id number] Author: JUANITO DHALIWAL APRN.CNP Service: Anesthesiology Author Type: Nurse Practitioner Type: Progress Notes Filed: 01/06/2025 10:03 Note Text: ---- Summary: dos meds ---- MEDICATION INSTRUCTIONS PRIOR TO SURGERY Please read below carefully for your personalized instructions. Medications: If you are on blood thinner or anticoagulants including aspirin, please confirm with your surgical team on when to stop these medications. Unless instructed differently by your surgical team, stay on all of your medications until your surgery. Pre-Surgery Med Instructions Medication Instructions acetaminophen (TYLENOL 8 HOUR) 650 mg CR tablet PRN if needed alendronate (FOSAMAX) 70 mg tablet DO NOT TAKE MORNING OF SURGERY amLODIPine (NORVASC) 5 mg tablet If you normally take this medication in the morning, it is ok to take the morning of surgery with a sip of water. ASPIRIN 81 MG TAB Follow Prescribers Instructions atorvastatin (LIPITOR) 20 mg tablet If you normally take this medication in the morning, it is ok to take the morning of surgery with a sip of water. Cholecalciferol, Vitamin D3, 25 mcg (1,000 unit) cap DO NOT TAKE MORNING OF SURGERY EPINEPHrine (EPIPEN 2-MAKI) 0.3 mg/0.3 mL auto-injector PRN if needed ferrous sulfate 325 mg (65 mg iron) tablet DO NOT TAKE MORNING OF SURGERY Flaxseed Oil oil DO NOT TAKE MORNING OF SURGERY fluticasone (FLONASE) 50 mcg/actuation nasal spray PRN if needed lisinopril 2.5 mg tablet DO NOT TAKE MORNING OF SURGERY MULTIVITAMIN TAB DO NOT TAKE MORNING OF SURGERY omeprazole (PRILOSEC) 20 mg capsule If you normally take this medication in the morning, it is ok to take the morning of surgery with a sip of water. PARoxetine (PAXIL) 20 mg tablet If you normally take this medication in the morning, it is ok to take the morning of surgery with a sip of water. SUNFLOWER OIL-PARSLEY SEED OIL ORAL DO NOT TAKE MORNING OF SURGERY If you have any medication changes between receiving these instructions and your surgery date, please provide this updated information with the nurse who calls you the week day prior to your surgical procedure so we can update your list and provide you with updated instructions for the morning of your procedure. [facility] 01-06-2025 Anesthesiology Preoperative evaluation and management note 84yo male, exsmoker. PMH: +CHARLENE cpap compliant, palpitations, HTN, HLD, GERD, anemia, R heel pressure ulcer, ideopathic neuropathy, previous foot surgery 2/2 osteomyelitis, anxiety/depression, R foot drop. Takes ASA with no instructions to stop. On renal protective dose of lisinopril. Stress test 2022: EF 82%, neg ischemia/infarct View External Cardiology - Stress Test [ID [id number]] ECHO 2018 EF 60%, stage 2 DD, mild 1+ TR View External Cardiology - Echo [ID [id number]] [facility] 12-21-2024 Telephone encounter Note Home care Certification Form 485 received from [facility]. For cert dates 11/19/24-01/17/25 that were signed on 12/16/24. New Certification Patient's home health 485 form / care plan for stated certification period reviewed and signed. Relevant medical records were reviewed. No changes were indicated [facility] 12-21-2024 Miscellaneous Notes Home care Certification Form 485 received from [facility]. For cert dates 11/19/24-01/17/25 that were signed on 12/16/24. New Certification Patient's home health 485 form / care plan for stated certification period reviewed and signed. Relevant medical records were reviewed. No changes were indicated documented in this encounter [facility] 12-09-2024 Progress note Formatting of t his note might be different from the original. CBC is bit decreased, would recommend recheck in a month or so [facility] 12-09-2024 Miscellaneous Notes CBC is bit decreased, would recommend recheck in a month or so documented in this encounter [facility] 11-25-2024 History of Present illness Narrative SUBJECTIVE: Depression Screening Never done RSV Vaccine(1 - 1-dose 75+ series) Never done Advance Directive Discussion due on 10/06/2024 HPI Kiesha Colvin is a 84 year old female. PMH significant for ACTIVE PROBLEM LIST Pure Hypercholesterolemia Anxiety State Obesity, Unspecified Idiopathic Neuropathy Urge Incontinence of Urine Symptomatic Menopausal Or Female Climacteric States Varicose Veins of Both Lower Extremities Hypertension Osteoarthrosis Multiple Sites, Not Specified As Generalized CKD (chronic kidney disease) Stage 3, GFR 30-59 ml/min Impaired Glucose Metabolism Obesity, Class II, Bmi 35-39.9 She was admitted to [facility] September 18, 2024 to September 28, 2024 for failure of outpatient treatment of cellulitis. She was found to have right foot osteomyelitis. Treating with doxycycline x 37 days post discharge. She underwent surgical wound debridement and a posterior tibial tendon transfer and peroneal tendon transfer, radial procedure. PT / OT recommended SNF placement. Care managed by WILDA kwon. Presents today for SNF discontinued follow up visit. Completed antibiotics: yes, took 6 weeks Mobility: Using a walker, mostly in home Oral intake: Doing well Constipation: In SNF, intermittent, taking OTC remedy that helps. Reports that she is taking iron which causes constipation. PT: [facility] PT was out this week Interim [facility] [employer] is provider of [facility] services. Follow-up with podiatry: 3 weeks, Dr. Berry (sp?) Notes surgical wound is healing. Does have hospital aquied pressur ulcer which he is treating with a topical treatment and pressure relief shoe and bootie. Review of Systems Respiratory: Negative. Cardiovascular: Negative. Neurological: Negative for light-headedness. Objective BP 107/63 Pulse 69 Resp 16 Physical Exam Vitals and nursing note reviewed. Constitutional: Appearance: Normal appearance. HENT: Head: Normocephalic and atraumatic. Eyes: Conjunctiva/sclera: Conjunctivae normal. Cardiovascular: Rate and Rhythm: Normal rate and regular rhythm. Heart sounds: Normal heart sounds. Pulmonary: Effort: Pulmonary effort is normal. Breath sounds: Normal breath sounds. Abdominal: General: Bowel sounds are normal. Palpations: Abdomen is soft. Skin: General: Skin is warm and dry. Neurological: General: No focal deficit present. Mental Status: She is alert and oriented to person, place, and time. ALLERGIES Allergen Reactions Keflex [Cephalexin] Rash, Other: See Comments Headache Penicillins Medications Flaxseed Oil oil amLODIPine (NORVASC) 5 mg tablet Take 1 tablet by mouth once daily. As directed lisinopril 2.5 mg tablet Take 1 tablet by mouth once daily. alendronate (FOSAMAX) 70 mg tablet Take 1 tablet by mouth one time a week. Take with a full glass of water, on an empty stomach; do NOT lie down for 30minutes. atorvastatin (LIPITOR) 20 mg tablet Take one (1) tablet by mouth every evening at 9pm omeprazole (PRILOSEC) 20 mg capsule Take 1 capsule by mouth daily before breakfast. 1/2 hr before meal. PARoxetine (PAXIL) 20 mg tablet Take 1 tablet by mouth once daily. EPINEPHrine (EPIPEN 2-MAKI) 0.3 mg/0.3 mL auto-injector Inject 0.3 mL intramuscularly as needed. Cholecalciferol, Vitamin D3, 25 mcg (1,000 unit) cap Take 1 capsule by mouth once daily. ferrous sulfate 325 mg (65 mg iron) tablet Take 325 mg by mouth daily with breakfast. fluticasone (FLONASE) 50 mcg/actuation nasal spray Use 2 Sprays in each nostril once daily. As needed. Rinse mouth after use. ASPIRIN 81 MG TAB Take one (1) tablet daily . MULTIVITAMIN TAB Take one(1) tablet daily. CALCIUM 500+D 500 MG-200 UNIT TAB naproxen (NAPROSYN) 250 mg tablet Take 250 mg by mouth two times a day with meals. Taking Tylenol instead (Patient not taking: Reported on 11/25/2024) PAST MEDICAL HISTORY Diagnosis Date ANEMIA NOS 04/21/2009 Colonoscopy in 10-11: tics and hems with no polpys Started iron as an inpt per Dr. Sales: pt reportedly giving multiple blood donations Hct 33% in 7-09, 06-14 Iron 72, Ferritin 162 (8-252), TIBC 344 in 06-14: stop iron supplements and repeat levels in follow up Anxiety state, unspecified Arthritis Bee sting allergy goes into shock, honey bees only CELLULITIS NOS 04/18/2009 WBC 9 K, ESR 118 in 04-13 for cellulitis of R foot Empiric Levaquin for R foot in 04-13: rec to return to Podiatry Admitted 04-19-09 for cellulitis: discharged on Doxy and rec to ID (MRI of the R foot negative for osteo) Depressive disorder, not elsewhere classified Diverticulosis of colon (without mention of hemorrhage) Diverticulosis of colon (without mention of hemorrhage) Family history of malignant neoplasm of gastrointestinal tract family history of colon cancer Family history of malignant neoplasm of gastrointestinal tract Foot drop, right 09/22/2024 Hypertension Idiopathic neuropathy 11/13/2009 Internal hemorrhoids without mention of complication Internal hemorrhoids without mention of complication OBESITY NOS 11/22/2008 Reportedly negative sleep eval about age 60: reports being the same weight as of 05-14 Reviewed effects on nocturia, varicose veins, neuropathy in 11-14: pt agreed to 2 mo f/u for wt loss Osteomyelitis (HCC) 09/22/2024 5th metatarsal Rt. foot Pure hypercholesterolemia Sleep apnea Urge incontinence of urine 11/23/2009 Varicose veins 06/02/2012 VITAMIN D DEFICIENCY NOS 03/05/2009 Vitamin D 23 (32-100) in 01-12, 29 in 06-14 Vit D 05/21/10 [facility] is 28.8. To continue the vit D 50,000 one po weekly Social History Tobacco Use Smoking status: Former Current packs/day: 0.00 Average packs/day: 1 pack/day for 20.0 years (20.0 ttl pk-yrs) Types: Cigarettes Start date: 10/06/1958 Quit date: 10/06/1978 Years since quittin.1 Smokeless tobacco: Never Substance Use Topics Alcohol use: No Drug use: No ASSESSMENT/PLAN: 1. S/P foot surgery - ICD9: V45.89, ICD10: Z98.890 (primary diagnosis) Following with podiatry, requesting PT consult however says she is already seen physical therapy through home health care. She will let us know if she needs outpatient PT at a later date. - CONSULT TO PHYSICAL THERAPY 2. Blood loss anemia - ICD9: 280.0, ICD10: D50.0 Reports has been taking dizi-bur-hlncafa iron since discharge for blood loss anemia related to surgery. Check CBC today, if within normal limits can discontinue iron. - COMPLETE BLOOD COUNT AND DIFFERENTIAL 3. Primary hypertension - ICD9: 401.9, ICD10: I10 controlled. - Continue current medications - Encouraged sodium restriction, DASH or Mediterranean diet - Recommend regular aerobic exercise 4. Encounter for immunization - ICD9: V03.89, ICD10: Z23 - RSV PRINTED PHARMACY INSTRUCTIONS 5. Screening for depression - ICD9: V79.0, ICD10: Z13.31 - DEPRESSION SCREENING Antolin Coombs APRN.CNS Medical Decision Making: Problems: Moderate: Acute illness with systemic symptoms Data: Unique source(s) for external note(s) reviewed: 1 Unique test result(s) reviewed: 3+ Risk: Moderate: Drug management Medical Decision Making Level: 4 - Moderate documented in this encounter [facility] 11-25-2024 Note HNO ID: [id number] Author: ANTOLIN COOMBS APRN.SCENE SHIFTER Service: ? Author Type: Nurse Specialist Type: Progress Notes Filed: 11/25/2024 13:55 Note Text: SUBJECTIVE: Depression Screening Never done RSV Vaccine(1 - 1-dose 75+ series) Never done Advance Directive Discussion due on 10/06/2024 HPI Kiesha Colvin is a 84 year old female. PMH significant for ACTIVE PROBLEM LIST Pure Hypercholesterolemia Anxiety State Obesity, Unspecified Idiopathic Neuropathy Urge Incontinence of Urine Symptomatic Menopausal Or Female Climacteric States Varicose Veins of Both Lower Extremities Hypertension Osteoarthrosis Multiple Sites, Not Specified As Generalized CKD (chronic kidney disease) Stage 3, GFR 30-59 ml/min Impaired Glucose Metabolism Obesity, Class II, Bmi 35-39.9 She was admitted to [facility] September 18, 2024 to September 28, 2024 for failure of outpatient treatment of cellulitis. She was found to have right foot osteomyelitis. Treating with doxycycline x 37 days post discharge. She underwent surgical wound debridement and a posterior tibial tendon transfer and peroneal tendon transfer, radial procedure. PT / OT recommended SNF placement. Care managed by poditry, ID. Presents today for SNF discontinued follow up visit. Completed antibiotics: yes, took 6 weeks Mobility: Using a walker, mostly in home Oral intake: Doing well Constipation: In SNF, intermittent, taking OTC remedy that helps. Reports that she is taking iron which causes constipation. PT: [facility] PT was out this week Interim [facility] [employer] is provider of [facility] services. Follow-up with podiatry: 3 weeks, Dr. Berry (sp?) Notes surgical wound is healing. Does have hospital aquied pressur ulcer which he is treating with a topical treatment and pressure relief shoe and bootie. Review of Systems Respiratory: Negative. Cardiovascular: Negative. Neurological: Negative for light-headedness. Objective BP 107/63 Pulse 69 Resp 16 Physical Exam Vitals and nursing note reviewed. Constitutional: Appearance: Normal appearance. HENT: Head: Normocephalic and atraumatic. Eyes: Conjunctiva/sclera: Conjunctivae normal. Cardiovascular: Rate and Rhythm: Normal rate and regular rhythm. Heart sounds: Normal heart sounds. Pulmonary: Effort: Pulmonary effort is normal. Breath sounds: Normal breath sounds. Abdominal: General: Bowel sounds are normal. Palpations: Abdomen is soft. Skin: General: Skin is warm and dry. Neurological: General: No focal deficit present. Mental Status: She is alert and oriented to person, place, and time. ALLERGIES Allergen Reactions Keflex [Cephalexin] Rash, Other: See Comments Headache Penicillins Medications Flaxseed Oil oil amLODIPine (NORVASC) 5 mg tablet Take 1 tablet by mouth once daily. As directed lisinopril 2.5 mg tablet Take 1 tablet by mouth once daily. alendronate (FOSAMAX) 70 mg tablet Take 1 tablet by mouth one time a week. Take with a full glass of water, on an empty stomach; do NOT lie down for 30minutes. atorvastatin (LIPITOR) 20 mg tablet Take one (1) tablet by mouth every evening at 9pm omeprazole (PRILOSEC) 20 mg capsule Take 1 capsule by mouth daily before breakfast. 1/2 hr before meal. PARoxetine (PAXIL) 20 mg tablet Take 1 tablet by mouth once daily. EPINEPHrine (EPIPEN 2-MAKI) 0.3 mg/0.3 mL auto-injector Inject 0.3 mL intramuscularly as needed. Cholecalciferol, Vitamin D3, 25 mcg (1,000 unit) cap Take 1 capsule by mouth once daily. ferrous sulfate 325 mg (65 mg iron) tablet Take 325 mg by mouth daily with breakfast. fluticasone (FLONASE) 50 mcg/actuation nasal spray Use 2 Sprays in each nostril once daily. As needed. Rinse mouth after use. ASPIRIN 81 MG TAB Take one (1) tablet daily . MULTIVITAMIN TAB Take one(1) tablet daily. CALCIUM 500+D 500 MG-200 UNIT TAB naproxen (NAPROSYN) 250 mg tablet Take 250 mg by mouth two times a day with meals. Taking Tylenol instead (Patient not taking: Reported on 11/25/2024) PAST MEDICAL HISTORY Diagnosis Date ANEMIA NOS 04/21/2009 Colonoscopy in 10-11: tics and hems with no polpys Started iron as an inpt per Dr. Sales: pt reportedly giving multiple blood donations Hct 33% in 04-13, 06-14 Iron 72, Ferritin 162 (8-252), TIBC 344 in 06-14: stop iron supplements and repeat levels in follow up Anxiety state, unspecified Arthritis Bee sting allergy goes into shock, honey bees only CELLULITIS NOS 04/18/2009 WBC 9 K, ESR 118 in 04-13 for cellulitis of R foot Empiric Levaquin for R foot in 04-13: rec to return to Podiatry Admitted 04-19-09 for cellulitis: discharged on Doxy and rec to ID (MRI of the R foot negative for osteo) Depressive disorder, not elsewhere classified Diverticulosis of colon (without mention of hemorrhage) Diverticulosis of colon (without mention of hemorrhage) Family history of malignant neoplasm of gastrointestinal tract family history of colon cancer (more content not included)... [facility] 09-28-2024 Note [facility] Medical Records Department [address] [place] [address] Discharge Summary 09/28/24 1427 MR#: [id number] Acct: [id number] Name: KIESHA COLVIN Rep #: [id number] : 1940 84 From: Servando De Dios DO PCP: Dr. Lianet Sullivan MD Status:DIS IN [id number] Prov[facility] Date of Admission: 09/18/24 Date of Discharge: 09/28/24 Primary Care Physician: Dr. Lianet Sullivan MD Consultations 09/20/24 07:23 Consult: Podiatry Routine Consulting Provider: Ambrose Liu Reason for Consult: right foot ulcer and cellulitis EMERGENT Consult: No Notified: Yes Date Notified: 09/20/24 Time Notified: 07:23 Method of Notification: Verbal 09/21/24 12:07 Consult: Infectious Disease Routine Consulting Provider: Bonilla Sheriff Reason for Consult: osteomyelitis of the right foot EMERGENT Consult: No Notified: Yes Date Notified: 09/21/24 Time Notified: 12:07 Method of Notification: Text 09/22/24 08:06 Consult: Onc/Wound/glost kiln operator Routine Comment: Reason for Consult:: foot osteo Reason For Visit: CELLULITIS Diagnosis Discharge Diagnosis (1) Osteomyelitis: Status: Inactive Code(s): M86.9 - Osteomyelitis, unspecified (2) Cellulitis of right lower extremity: Status: Inactive Code(s): L03.115 - Cellulitis of right lower limb Plan 1. Right foot osteomyelitis-again patient was switched to doxycycline today, we are currently waiting approval for the patient to go to an extended care facility for short-term rehab services. #2 chronic depression-patient is currently on paroxetine #3 essential hypertension-patient is on amlodipine and lisinopril as an outpatient, these are being held presently because of hypotension, blood pressure will continue to be monitored #4 hyperlipidemia-patient is on atorvastatin #5 anemia-etiology unclear, recheck hemoglobin after discharge Total clinical time spent by myself addressing the patient's medical issues, reviewing all of her data, and collaborating with patient's care team: 35 minutes Medications at Discharge Home Medications atorvastatin 20 mg tablet 20 mg PO QHS Cholesterol 12/15/15 paroxetine HCl 20 mg tablet 20 mg PO DAILY Depression 12/15/15 aspirin 81 mg tablet,delayed release (Adult Low Dose Aspirin) 81 mg PO DAILY Heart 07/19/22 cholecalciferol (vitamin D3) 25 mcg (1,000 unit) tablet 50 mcg PO DAILY Supplement 07/19/22 acetaminophen 325 mg tablet (Tylenol) 1,000 mg PO TID PRN PRN Pain Score 1-10/Temp > 100.7 F 01/11/24 lisinopril 2.5 mg tablet 2.5 mg PO 1700 #30 tabs 02/26/24 omeprazole 20 mg capsule,delayed release 20 mg PO DAILY Stomach acid #30 caps 02/26/24 alendronate 70 mg tablet 70 mg PO QWEEK 09/18/24 amlodipine 5 mg tablet 5 mg PO DAILY 09/18/24 doxycycline hyclate 100 mg capsule 100 mg PO BID #74 caps 09/27/24 enoxaparin 40 mg/0.4 mL subcutaneous syringe 40 mg (0.4 mL) subcut DAILY #0 mL 09/28/24 food supplemt, lactose-reduced 0.08 gram-1.5 kcal/mL oral liquid (Ensure Plus High Protein) 120 ml PO TIDCM #0 mL 09/28/24 loperamide 2 mg capsule 2 mg PO Q2H PRN PRN Diarrhea/Loose Stools #0 caps 09/28/24 menthol 0.44 %-zinc oxide 20.6 % topical ointment (Calmoseptine) 1 applic topical BID #0 grams 09/28/24 nystatin 100,000 unit/gram topical powder (Nyamyc) 1 applic topical BID #0 grams 09/28/24 nystatin 100,000 unit/mL oral suspension 500,000 unit (5 mL) PO 4X/DAY #0 mL 09/28/24 oxycodone 5 mg tablet 5 mg PO Q4H PRN PRN Pain Score 4-10 2 days #6 tabs 09/28/24 Hospital Course Operations - (Posterior tibial tendon transfer, peroneal tendon transfer equaling the bridle procedure) Procedures None Summary of Care Provided Minutes Spent on Discharge: 31 Hospital Course: This 84-year-old white female was seen in the emergency room at [facility] with right sided lower limb swelling pain and redness. Patient had been treated as an outpatient for wound at the base of her left fifth metatarsal. She had been on oral doxycycline for several days. Workup in the emergency room included a CBC which showed normal white blood cell count C-reactive protein was elevated at 38.9, sed rate was elevated at 52, patient's x-ray of her foot was reviewed and it showed a round radiolucency projecting over the soft tissue lateral to the fifth metatarsal phalangeal joint patient was given IV clindamycin and vancomycin, and podiatry was contacted. Patient was admitted to the hospitalist service and seen in consultation by podiatry. Patient underwent surgery on 09/24/2024 and a posterior tibial tendon transfer was performed with a peroneal tendon transfer equaling a bridle procedure. Wound debridement of the right foot was also performed. Patient was seen in consultation by infectious diseases monitored antibiotic treatment. Patient was seen by PT and OT and it was recommended the patient go to a (more content not included)... [facility] 09-22-2024 Note [facility] Medical Records Department [address] [place] [address] History Physical Exam 09/22/24 1839 MR#: [id number] Acct: [id number] Name: KIESHA COLVIN Rep #: [id number] : 1940 84 From: Ambrose Liu MD PCP: Dr. Lianet Sullivan MD Status:ADM IN Location: [id number] HPI - General General Date of Admission: 09/18/24 Chief Complaint: Cellulitis HPI Narrative KIESHA COLVIN, is a 84 F who presents noted to have osteomyelitis of the right lateral foot positive on MRI patient does require surgery along with a tendon transfer to correct her lateral foot type. [facility] Medical History Osteoporosis Irregular heart beat Hypertension Contusion of spinal cord Fall Wears glasses Wears dentures Arthritis Low iron High cholesterol History of hiatal hernia GERD (gastroesophageal reflux disease) CPAP (continuous positive airway pressure) dependence Sleep apnea Former smoker Cardiology follow-up encounter History of stress test CHARLENE (obstructive sleep apnea) Rheumatoid arthritis Hiatal hernia Abnormal EKG Essential hypertension Vitamin D deficiency Diverticulosis Anxiety and depression Rash HLD (hyperlipidemia) Other hereditary and idiopathic neuropathies Chronic ulcer of left foot with fat layer exposed Localized edema Venous insufficiency (chronic) (peripheral) Other specified peripheral vascular diseases 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 exposed CHARLENE (obstructive sleep apnea) Abnormal chest CT Lipodermatosclerosis Cellulitis of right leg Home Medications ???Medication ???Instructions ???Recorded ???Last Taken ???Type atorvastatin 20 mg tablet 20 mg PO QHS Cholesterol 12/15/15 09/17/24 History paroxetine HCl 20 mg tablet 20 mg PO DAILY Depression 12/15/15 09/17/24 History aspirin 81 mg tablet,delayed 81 mg PO DAILY Heart 07/19/22 09/18/24 History release (Adult Low Dose Aspirin) cholecalciferol (vitamin D3) 25 50 mcg PO DAILY Supplement 07/19/22 09/17/24 History mcg (1,000 unit) tablet acetaminophen 325 mg tablet 1,000 mg PO TID PRN PRN Pain Score 01/11/24 09/18/24 History (Tylenol) 1-10/Temp > 100.7 F lisinopril 2.5 mg tablet 2.5 mg PO 1700 #30 tabs 02/26/24 09/17/24 Rx omeprazole 20 mg capsule,delayed 20 mg PO DAILY Stomach acid #30 02/26/24 09/18/24 Rx release caps alendronate 70 mg tablet 70 mg PO QWEEK 09/18/24 09/15/24 History amlodipine 5 mg tablet 5 mg PO DAILY 09/18/24 09/18/24 History doxycycline hyclate 100 mg capsule 100 mg PO Q12H 09/18/24 09/18/24 History flaxseed oil 1,000 mg capsule 1,000 mg PO DAILY 09/18/24 09/18/24 History vitamin B complex (Vitamins B 1 cap PO DAILY 09/18/24 09/18/24 History Complex capsule) Allergy/AdvReac Type Severity Reaction Status Date / Time cephalexin (From Keflex) Allergy Unknown rash, Verified 09/18/24 15:01 headaches bee venom protein (honey bee) Allergy Anaphylaxis Verified 09/18/24 15:01 Penicillins Allergy Hives Verified 09/18/24 15:52 pantoprazole (From Protonix) AdvReac Intermediate Thrombocyto Verified 09/18/24 15:01 penia Family History Father Heart disease Mother Colon cancer Sister Colon cancer Brother CVA (cerebral vascular accident) COPD (chronic obstructive pulmonary disease) Surgical History History of esophagogastroduodenoscopy (EGD) History of colonoscopy History of cholecystectomy Hx of appendectomy History of hysterectomy History of bilateral knee replacement Social History household members: spouse housing: house number of children: 1 pets and animals: Yes (1 small dog and 2 outdoor cats) pets and animals: cat(s) and dog(s) leisure activities: other history of recent travel: No Smoking Status: Former smoker Tobacco: How many years used: 20 how long ago did patient quit smokin, 1ppd second hand exposure: Yes alcohol intake: never substance use type: does not use Vital Signs Vital Signs Vital Signs: 09/21/24 22:00 09/21/24 22:00 09/21/24 22:00 Temperature 97.8 F Temperature Source Oral Pulse Rate 58 L Pulse Strength Weak (1+) Respiratory Rate 15 15 Respiratory Effort Respiratory Depth Normal Respiratory Pattern Normal Blood Pressure 135/62 H Blood Pressure Mean 86 Blood Pressure Source Monitor Blood Pressure Position Semi-Fowlers Blood Pressure Location Right Arm Pulse Ox 98 Oxygen Delivery Method Room Air Room Air Oxygen Flow Rate (L/min) 09/22/24 04:36 09/22/24 10:00 09/22/24 15:03 Temperature 98.0 F 98.0 F Temperature Source Temporal (more content not included)... [facility] 09-20-2024 Note [facility] Medical Records Department [address] [place] [address] Consultation 09/20/24 1251 MR#: [id number] Acct: [id number] Name: KIESHA COLVIN Rep #: [id number] : [id number] 84 From: Ambrose Liu MD PCP: Dr. Lianet Sullivan MD Status:ADM IN Location: [place] [id number] Assessment Plan Assessment/Plan (1) Cellulitis of right lower extremity: (2) Neuropathy: PLAN: I discussed with the patient she will do speak to her I gave her the information noted in order to plan for this procedure possibly Friday will order MRI at this point. She should get wound care orders as well as try to stay off the foot is much as possible. Will need physical therapy to evaluate her as well. Consider SNF placement (3) Cavovarus deformity of foot, acquired: PLAN: Will wait for MRI and probably be back tomorrow evening to discuss surgery with her and her would plan for the operating room possibly Friday. PLAN: Plan Again plan would be possibly OR procedure with debridement, incision and drainage of bone cortex, tendon transfer with posterior tibial and anterior tibial tendon transfer. HPI Consult Data Date of Consult: 09/20/24 HPI Narrative Reason for Consultation: Nonhealing ulceration right foot HPI Narrative: KIESHA COLVIN, is a 84 F who presents she presented to the ER on Friday she has been here for the last couple days in which I was able to obtain the consult today. The patient states that she had a fall in December since the fall her foot is completely turned inward and that she has been through a brace, orthotics to offload this area of the subfifth metatarsal. She continues to have recurrent infections that never is healed has been open since April. At this point there is been no attempt to correct her deformity at this point since she is more of a supinated foot type secondary to over pulling of the posterior tibial tendon anterior tibial tendon and weakness of the peroneal tendons. I am uncertain if she has had a stroke her foot looks just like she has had some sort of stroke. Currently she has no pain at all just more concerned that the wound has not healed. [facility] Medical History (Updated 09/20/24 @ 12:[address] Ambrose Liu MD) Osteoporosis Irregular heart beat Hypertension Contusion of spinal cord Fall Wears glasses Wears dentures Arthritis Low iron High cholesterol History of hiatal hernia GERD (gastroesophageal reflux disease) CPAP (continuous positive airway pressure) dependence Sleep apnea Former smoker Cardiology follow-up encounter History of stress test CHARLENE (obstructive sleep apnea) Rheumatoid arthritis Hiatal hernia Abnormal EKG Essential hypertension Vitamin D deficiency Diverticulosis Anxiety and depression Rash HLD (hyperlipidemia) Other hereditary and idiopathic neuropathies Chronic ulcer of left foot with fat layer exposed Localized edema Venous insufficiency (chronic) (peripheral) Other specified peripheral vascular diseases 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 exposed CHARLENE (obstructive sleep apnea) Abnormal chest CT Lipodermatosclerosis Cellulitis of right leg Home Medications ???Medication ???Instructions ???Recorded ???Last Taken ???Type atorvastatin 20 mg tablet 20 mg PO QHS Cholesterol 12/15/15 09/17/24 History paroxetine HCl 20 mg tablet 20 mg PO DAILY Depression 12/15/15 09/17/24 History aspirin 81 mg tablet,delayed 81 mg PO DAILY Heart 07/19/22 09/18/24 History release (Adult Low Dose Aspirin) cholecalciferol (vitamin D3) 25 50 mcg PO DAILY Supplement 07/19/22 09/17/24 History mcg (1,000 unit) tablet acetaminophen 325 mg tablet 1,000 mg PO TID PRN PRN Pain Score 01/11/24 09/18/24 History (Tylenol) 1-10/Temp > 100.7 F lisinopril 2.5 mg tablet 2.5 mg PO 1700 #30 tabs 02/26/24 09/17/24 Rx omeprazole 20 mg capsule,delayed 20 mg PO DAILY Stomach acid #30 02/26/24 09/18/24 Rx release caps alendronate 70 mg tablet 70 mg PO QWEEK 09/18/24 09/15/24 History amlodipine 5 mg tablet 5 mg PO DAILY 09/18/24 09/18/24 History doxycycline hyclate 100 mg capsule 100 mg PO Q12H 09/18/24 09/18/24 History flaxseed oil 1,000 mg capsule 1,000 mg PO DAILY 09/18/24 09/18/24 History vitamin B complex (Vitamins B 1 cap PO DAILY 09/18/24 09/18/24 History Complex capsule) Allergy/AdvReac Type Severity Reaction Status Date / Time cephalexin (From Keflex) Allergy Unknown rash, Verified 09/18/24 15:01 headaches bee venom protein (honey bee) Allergy Anaphylaxis Verified 09/18/24 15:01 Penicillins Allergy Hives Verified 09/18/24 15:52 pantoprazole (From Protonix) AdvReac Intermediate Thrombocyto Verified 09/18/24 15:01 penia Family History Father Heart disease Mother Colon cancer Sister (more content not included)... [facility] 08-31-2024 Evaluation + Plan note Future Scheduled TestsMRI Brain w/o Contrast 08/31/24CT Spine Cervical w/o Contrast 07/15/24MRI Spine Cervical w/o Contrast 07/15/24 [facility] 08-31-2024 Evaluation + Plan note Future Scheduled TestsMRI Brain w/o Contrast 08/31/24XR Spine Lumbar AP/LAT/FLEX/EXT 02/01/25 [facility] 07-12-2024 Instructions Lianet Sullivan MD - 07/12/2024 1:01 PM EDT -Consider trying TheraWorx or a magnesium supplement to help with muscle spasms and cramps. TheraWorx is a topical magnesium that can be applied directly to the affected area. Magnesium supplements can also be taken orally to help with muscle relaxation and may also help with constipation and sleep. - Continue working with Dr. Flower for the management of your foot ulcer. - Continue with your current therapy for your hand and perform exercises to keep your hand muscles working. - Consider trying B-complex vitamins (including B12, B6, and folic acid) to help with nerve health and function. B12--up to 1000mcg; B6 100 to 200mg for a couple months then lower to 100 mg daily; folic acid up to 1000 mcg) - Consider trying alpha-lipoic acid (300-600 mg daily) for peripheral neuropathy symptoms. - Continue wearing supportive shoes and consider using warm compresses or heating pads for additional comfort. - Your blood pressure is well-controlled on your current medication regimen. - Your next follow-up appointment is scheduled for May. documented in this encounter [facility] 07-12-2024 Note HNO ID: [id number] Author: LIANET SULLIVAN MD Service: ? Author Type: Physician Type: Progress Notes Filed: 08/18/2024 16:05 Note Text: This note was created using [employer]. Subjective Kiesha Colvin is a 84 year old female. Patient presents with: F/U 6 months SUBJECTIVE: Kiesha Colvin is a 84 year old year old lady here today for 6 month follow up appointment for review of medical conditions. The patient is a 84-year-old female, with a history of HTN, GERD, hypercholesterolemia, and osteoporosis, presenting for follow-up. The patient reports persistent right leg pain, which she attributes to a previous fall. She has not consulted an orthopedist for this issue. She is currently under the care of Dr. Flower for a right foot ulcer and is also seeing a neurosurgeon for foot drop. She wears a brace to manage her foot drop, which she describes as her foot turning outward rather than downward. She experiences muscle spasms in her leg, which she believes are contributing to her pain. She is not currently taking any medication for the spasms. The patient also reports issues with her hips and back, describing a sensation of her hips being out of place and experiencing back tightness that recently made it difficult for her to walk upon getting out of bed. She uses a heating pad to warm her hands, which she reports are cold and weak. She is currently undergoing therapy for her hand weakness. The patient is on multiple medications, including two antihypertensives taken in the morning, lisinopril in the evening, omeprazole, Paxil, Lipitor, and Alendronate. She also takes [id number] iron, Flonase, a multivitamin, aspirin, calcium with vitamin D, and plain vitamin D. She reports a history of constipation. She denies any current need for a new EpiPen. PAST MEDICAL HISTORY Diagnosis Date ANEMIA NOS 04/21/2009 Colonoscopy in 10-11: tics and hems with no polpys Started iron as an inpt per Dr. Sales: pt reportedly giving multiple blood donations Hct 33% in 04-13, 06-14 Iron 72, Ferritin 162 (8-252), TIBC 344 in 06-14: stop iron supplements and repeat levels in follow up Anxiety state, unspecified Arthritis Bee sting allergy goes into shock, honey bees only CELLULITIS NOS 04/18/2009 WBC 9 K, ESR 118 in 04-13 for cellulitis of R foot Empiric Levaquin for R foot in 04-13: rec to return to Podiatry Admitted 04-19-09 for cellulitis: discharged on Doxy and rec to ID (MRI of the R foot negative for osteo) Depressive disorder, not elsewhere classified Diverticulosis of colon (without mention of hemorrhage) Diverticulosis of colon (without mention of hemorrhage) Family history of malignant neoplasm of gastrointestinal tract family history of colon cancer Family history of malignant neoplasm of gastrointestinal tract Hypertension 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 To continue the vit D 50,000 one po weekly Current Outpatient Medications Medication Sig lisinopril 2.5 mg tablet Take 1 tablet by mouth once daily. alendronate (FOSAMAX) 70 mg tablet Take 1 tablet by mouth one time a week. Take with a full glass of water, on an empty stomach; do NOT lie down for 30minutes. atorvastatin (LIPITOR) 20 mg tablet Take one (1) tablet by mouth every evening at 9pm omeprazole (PRILOSEC) 20 mg capsule Take 1 capsule by mouth daily before breakfast. 1/2 hr before meal. PARoxetine (PAXIL) 20 mg tablet Take 1 tablet by mouth once daily. amLODIPine (NORVASC) 2.5 mg tablet Take 1 tablet by mouth two times a day. As directed naproxen (NAPROSYN) 250 mg tablet Take 250 mg by mouth two times a day with meals. EPINEPHrine (EPIPEN 2-MAKI) 0.3 mg/0.3 mL auto-injector Inject 0.3 mL intramuscularly as needed. Cholecalciferol, Vitamin D3, 25 mcg (1,000 unit) cap Take 1 capsule by mouth once daily. ferrous sulfate 325 mg (65 mg iron) tablet Take 325 mg by mouth daily with breakfast. fluticasone (FLONASE) 50 mcg/actuation nasal spray Use 2 Sprays in each nostril once daily. As needed. Rinse mouth after use. ASPIRIN 81 MG TAB Take one (1) tablet daily . MULTIVITAMIN TAB Take one(1) tablet daily. CALCIUM 500+D 500 MG-200 UNIT TAB No current facility-administered medications for this visit. Review of Systems Objective BP 118/60 Pulse 60 Temp (!) 35.8 ?C (96.4 ?F) Resp 16 Wt 88.9 kg (195 lb 15.8 oz) SpO2 97% BMI 37.03 kg/m? Physical Exam Constitution (more content not included)... [place] [id number] History of Present illness Narrative This note was created using [employer]. Subjective Kiesha Colvin is a 84 year old female. Patient presents with: F/U 6 months SUBJECTIVE: Kiesha Colvin is a 84 year old year old lady here today for 6 month follow up appointment for review of medical conditions. The patient is a 84-year-old female, with a history of HTN, GERD, hypercholesterolemia, and osteoporosis, presenting for follow-up. The patient reports persistent right leg pain, which she attributes to a previous fall. She has not consulted an orthopedist for this issue. She is currently under the care of Dr. Flower for a right foot ulcer and is also seeing a neurosurgeon for foot drop. She wears a brace to manage her foot drop, which she describes as her foot turning outward rather than downward. She experiences muscle spasms in her leg, which she believes are contributing to her pain. She is not currently taking any medication for the spasms. The patient also reports issues with her hips and back, describing a sensation of her hips being out of place and experiencing back tightness that recently made it difficult for her to walk upon getting out of bed. She uses a heating pad to warm her hands, which she reports are cold and weak. She is currently undergoing therapy for her hand weakness. The patient is on multiple medications, including two antihypertensives taken in the morning, lisinopril in the evening, omeprazole, Paxil, Lipitor, and Alendronate. She also takes fycq-qxk-xukajse iron, Flonase, a multivitamin, aspirin, calcium with vitamin D, and plain vitamin D. She reports a history of constipation. She denies any current need for a new EpiPen. PAST MEDICAL HISTORY Diagnosis Date ANEMIA NOS 04/21/2009 Colonoscopy in 10-11: tics and hems with no polpys Started iron as an inpt per Dr. Sales: pt reportedly giving multiple blood donations Hct 33% in 04-13, 06-14 Iron 72, Ferritin 162 (8-252), TIBC 344 in 06-14: stop iron supplements and repeat levels in follow up Anxiety state, unspecified Arthritis Bee sting allergy goes into shock, honey bees only CELLULITIS NOS 04/18/2009 WBC 9 K, ESR 118 in 04-13 for cellulitis of R foot Empiric Levaquin for R foot in 04-13: rec to return to Podiatry Admitted 04-19-09 for cellulitis: discharged on Doxy and rec to ID (MRI of the R foot negative for osteo) Depressive disorder, not elsewhere classified Diverticulosis of colon (without mention of hemorrhage) Diverticulosis of colon (without mention of hemorrhage) Family history of malignant neoplasm of gastrointestinal tract family history of colon cancer Family history of malignant neoplasm of gastrointestinal tract Hypertension Idiopathic neuropathy 11/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 is 28.8. To continue the vit D 50,000 one po weekly Current Outpatient Medications Medication Sig lisinopril 2.5 mg tablet Take 1 tablet by mouth once daily. alendronate (FOSAMAX) 70 mg tablet Take 1 tablet by mouth one time a week. Take with a full glass of water, on an empty stomach; do NOT lie down for 30minutes. atorvastatin (LIPITOR) 20 mg tablet Take one (1) tablet by mouth every evening at 9pm omeprazole (PRILOSEC) 20 mg capsule Take 1 capsule by mouth daily before breakfast. 1/2 hr before meal. PARoxetine (PAXIL) 20 mg tablet Take 1 tablet by mouth once daily. amLODIPine (NORVASC) 2.5 mg tablet Take 1 tablet by mouth two times a day. As directed naproxen (NAPROSYN) 250 mg tablet Take 250 mg by mouth two times a day with meals. EPINEPHrine (EPIPEN 2-MAKI) 0.3 mg/0.3 mL auto-injector Inject 0.3 mL intramuscularly as needed. Cholecalciferol, Vitamin D3, 25 mcg (1,000 unit) cap Take 1 capsule by mouth once daily. ferrous sulfate 325 mg (65 mg iron) tablet Take 325 mg by mouth daily with breakfast. fluticasone (FLONASE) 50 mcg/actuation nasal spray Use 2 Sprays in each nostril once daily. As needed. Rinse mouth after use. ASPIRIN 81 MG TAB Take one (1) tablet daily . MULTIVITAMIN TAB Take one(1) tablet daily. CALCIUM 500+D 500 MG-200 UNIT TAB No current facility-administered medications for this visit. Review of Systems Objective BP 118/60 Pulse 60 Temp (!) 35.8 C (96.4 F) Resp 16 Wt 88.9 kg (195 lb 15.8 oz) SpO2 97% BMI 37.03 kg/m Physical Exam Constitutional: Appearance: Normal appearance. She is obese. HENT: Head: Normocephalic. Eyes: Conjunctiva/sclera: Conjunctivae normal. Cardiovascular: Rate and Rhythm: Normal rate and regular rhythm. Heart sounds: Normal heart sounds. Pulmonary: Effort: Pulmonary effort is normal. Breath sounds: Normal breath sounds. Musculoskeletal: Right lower leg: Edema (ankle puffiness) present. Left lower leg: No edema. Skin: General: Skin is warm and dry. Neurological: General: No focal deficit present. Mental Status: She is alert and oriented to person, place, and time. Psychiatric: Attention and Perception: Attention and perception normal. Mood and Affect: Mood and affect normal. Speech: Speech normal. Behavior: Behavior normal. Thought Content: Thought content normal. Judgment: Judgment normal. Latest Ref [facility] 12/04/2021 10/16/2022 07/11/2023 07/23/2023 NA 136 - 145 mmol/L 136 ! (E) K 3.5 - 5.1 mmol/L 4.1 (E) Chloride 98 - 107 MEQ/L 102 (E) CO2 21 - 32 MEQ/L 28.0 (E) Glucose 74 - 106 MG/DL 82 (E) BUN 7 - 18 MG/DL 19 ! (E) Creatinine 0.6 - 1.3 MG/DL 0.88 (E) GFR mL/MIN 66 (E) GFR AFR AMER mL/MIN 79 (E) Total Protein 6.4 - 8.2 gm/dL 7.9 (E) Albumin 3.2 - 4.6 gm/dL 3.7 (E) Calcium 8.5 - 10.1 mg/dL 9.0 (E) Bili Total 0.2 - 1 mg/dL 0.50 (E) AST 8 - 37 U/L 21 (E) ALT (SGPT) 12 - 78 U/L 31 (E) Alk Phos Total 45 - 117 U/L 86 (E) GLOBULIN 4.2 (E) ALBUMIN/GLOBULIN RATIO 0.9 (E) WBC 3.70 - 11.00 k/uL 6.39 RBC 3.90 - 5.20 m/uL 3.74 (L) Hemoglobin 11.5 - 15.5 g/dL 11.8 Hematocrit 36.0 - 46.0 % 34.8 (L) MCV 80.0 - 100.0 fL 93.0 MCH 26.0 - 34.0 pg 31.6 MCHC 30.5 - 36.0 g/dL 33.9 RDW-CV 11.5 - 15.0 % 13.7 Platelet Count 150 - 400 k/uL 199 MPV 9.0 - 12.7 fL 10.7 Absolute nRBC <0.01 k/uL <0.01 Triglyceride 149 mg/dL 160 ! (E) CHOLESTEROL, TOTAL 0 - 200 MG/DL 152 (E) HDC-L 41 mg/dL 52 ! (E) LDL Chol, calculated 130 MG/DL 68 (E) VLDL 10 - 38 Ratio 32 (E) Hemoglobin A1C 4.3 - 5.6 % 5.7 (H) Estimated Average Glucose mg/dL 117 Vitamin D 25 Hydroxy 31.0 - 80.0 ng/mL 38.5 PTH, Intact 15 - 65 pg/mL 31 Phosphorus 2.7 - 4.8 mg/dL 3.8 Legend: ! Abnormal (L) Low (H) High (E) External lab result Assessment and Plan # Primary hypertension (I10) - Blood pressure well-controlled on current regimen. - Consolidated amlodipine dosage to 5 mg once daily. - Lisinopril 5 mg once daily with refills until next March. - Updated amlodipine prescription sent to [facility] [place]. # Muscle spasm (M62.838) - Experiencing muscle spasms in the leg, contributing to soreness. - Discussed use of topical magnesium ([employer]) to relax muscles. - Initiated oral magnesium oxide 400 mg daily; educated on potential side effects including diarrhea. - Advised on stretching exercises and warm compresses to alleviate spasms. - Ordered serum magnesium level to assess for deficiency. # Pure hypercholesterolemia (E78.00) - Continue current management with Lipitor. - Ordered lipid panel to monitor cholesterol levels. # Vitamin D deficiency (E55.9) - Current supplementation with 1000 IU daily. - Last serum vitamin D level was 38.5 ng/mL in July. - Ordered repeat vitamin D level to assess current status. - Discussed potential increase in dosage based on upcoming lab results. # Elevated glucose (R73.09) - Previous A1c slightly elevated, indicating pre-diabetes. - Ordered repeat A1c and fasting glucose to monitor glycemic control. - Advised 8-10 hours fasting prior to lab draw. # Obesity, Class II, BMI 35-39.9 (E66.812) - Discussed importance of weight management in overall health. - Encouraged regular physical activity and dietary modifications. # Non-pressure chronic ulcer of other part of right foot limited to breakdown of skin (HCC) (L97.511) - Ongoing treatment by Dr. Flower, homebound teacher. - Ulcer healing slowly; educated on typical healing process from edges inward. - Continue current wound care regimen. # Idiopathic neuropathy (G60.9) - Experiencing numbness and tingling in feet. - Discussed potential use of alpha-lipoic acid 300-600 mg daily to alleviate symptoms. - Advised to start one supplement at a time to monitor effectiveness and tolerance. # Foot drop, right (M21.371) - Currently using a brace to manage foot positioning. - Neurology follow-up scheduled for tomorrow to reassess condition. - Discussed potential benefits and risks of Botox injections for muscle spasms. # Chronic idiopathic constipation (K59.04) - Initiated magnesium oxide 400 mg daily, which may also aid in alleviating constipation. - Advised on maintaining adequate hydration and dietary fiber intake. # Encounter for long-term current use of medication (Z79.899) - Reviewed and updated medication list. - Refilled necessary prescriptions. # Encounter for immunization (Z23) Lianet Sullivan MD documented in this encounter [facility] 04-28-2024 Note HNO ID: [id number] Author: SHO BRUNO APRN.FORM STRIPPER Service: ? Author Type: Nurse Practitioner Type: Progress Notes Filed: 04/28/2024 14:24 Note Text: SUBJECTIVE Kiesha Colvin is a 83 year old female here today for a check up on her medical problems. Chief Complaint Patient presents with: Wound Check: right foot HPI Kiesha Colvin is a 83 year old female. She is an established patient of Lianet Sullivan MD. Here today acutely for concerns of an open area to the foot. Right foot, bottom of foot. She has a deformity of the foot that has resulted in development of a callus. The callus has become red and open. It does have some drainage. Painful. Not improving. Toe beside the area is red. Her medications were reviewed today and her list is now up to date. Medications Current Outpatient Medications Medication Sig lisinopril 2.5 mg tablet Take 1 tablet by mouth once daily. alendronate (FOSAMAX) 70 mg tablet Take 1 tablet by mouth one time a week. Take with a full glass of water, on an empty stomach; do NOT lie down for 30minutes. atorvastatin (LIPITOR) 20 mg tablet Take one (1) tablet by mouth every evening at 9pm omeprazole (PRILOSEC) 20 mg capsule Take 1 capsule by mouth daily before breakfast. 1/2 hr before meal. PARoxetine (PAXIL) 20 mg tablet Take 1 tablet by mouth once daily. amLODIPine (NORVASC) 2.5 mg tablet Take 1 tablet by mouth two times a day. As directed naproxen (NAPROSYN) 250 mg tablet Take 250 mg by mouth two times a day with meals. EPINEPHrine (EPIPEN 2-MAKI) 0.3 mg/0.3 mL auto-injector Inject 0.3 mL intramuscularly as needed. Cholecalciferol, Vitamin D3, 25 mcg (1,000 unit) cap Take 1 capsule by mouth once daily. ferrous sulfate 325 mg (65 mg iron) tablet Take 325 mg by mouth daily with breakfast. fluticasone (FLONASE) 50 mcg/actuation nasal spray Use 2 Sprays in each nostril once daily. As needed. Rinse mouth after use. ASPIRIN 81 MG TAB Take one (1) tablet daily . MULTIVITAMIN TAB Take one(1) tablet daily. CALCIUM 500+D 500 MG-200 UNIT TAB doxycycline (VIBRA-TABS) 100 mg tablet Take 1 tablet by mouth two times a day for 10 days. No current facility-administered medications for this visit. ALLERGIES Allergen Reactions Keflex [Cephalexin] Rash, Other: See Comments Headache Penicillins ACTIVE PROBLEM LIST Impaired Glucose Metabolism - 07/16/2018 CKD (chronic kidney disease) Stage 3, GFR 30-59 ml/min - 01/29/2018 Osteoarthrosis Multiple Sites, Not Specified As Generalized - 12/09/2013 Hypertension - 06/25/2013 Comment: Use RIGHT ARM for BP readings. LEFT < RIGHT. Varicose Veins of Both Lower Extremities - 06/02/2012 Symptomatic Menopausal Or Female Climacteric States - 11/21/2010 Urge Incontinence of Urine - 11/23/2009 Idiopathic Neuropathy - 11/13/2009 Obesity, Unspecified - 11/22/2008 Pure Hypercholesterolemia - 07/24/2005 Anxiety State - 07/24/2005 Social History Tobacco Use Smoking status: Former Packs/day: 1.00 Years: 20.00 Additional pack years: 0.00 Total pack years: 20.00 Types: Cigarettes Quit date: 10/06/1978 Years since quittin.5 Smokeless tobacco: Never Substance Use Topics Alcohol use: No Drug use: No Review of Systems Respiratory: Negative. Cardiovascular: Negative. OBJECTIVE BP 114/52 Pulse 60 SpO2 97% Physical Exam Vitals and nursing note reviewed. Constitutional: General: She is awake. She is not in acute distress. Appearance: Normal appearance. She is well-developed and well-groomed. She is not ill-appearing, toxic-appearing or diaphoretic. HENT: Head: Normocephalic. Right Ear: External ear normal. Left Ear: External ear normal. Nose: Nose normal. Eyes: General: Vision grossly intact. Conjunctiva/sclera: Conjunctivae normal. Pupils: Pupils are equal, round, and reactive to light. Neck: Vascular: No JVD. Trachea: Trachea normal. Cardiovascular: Rate and Rhythm: Normal rate and regular rhythm. Pulses: Normal pulses. Heart sounds: Normal heart sounds. No murmur heard. Pulmonary: Effort: Pulmonary effort is normal. No accessory muscle usage, prolonged expiration or respiratory distress. Breath sounds: Normal breath sounds. Musculoskeletal: Cervical back: Neck supple. Feet: Feet: Comments: Right bottom of foot, lateral aspect near 5th digit with callus that has open areas between 3-6 o clock and 9-12 o clock positions. 5th digit with erythema, slight warmth Skin: General: Skin is warm and dry. Capillary Refill: Capillary refill takes less than 2 seconds. Neurological: General: No focal deficit present. Mental Status: She is alert and oriented to person, place, and time. Mental status is at baseline. Psychiatric: Attention and Perception: Attention and perception normal. Mood and Affect: Mood and affect normal. Speech: Speech normal. Behavior: Behavior normal. Behavior is cooperative. Thought Content: Thought content sonam (more content not included)... [facility] 04-28-2024 History of Present illness Narrative Images from the original note were not included. SUBJECTIVE Kiesha Colvin is a 83 year old female here today for a check up on her medical problems. Chief Complaint Patient presents with: Wound Check: right foot HPI Kiesha Colvin is a 83 year old female. She is an established patient of Lianet Sullivan MD. Here today acutely for concerns of an open area to the foot. Right foot, bottom of foot. She has a deformity of the foot that has resulted in development of a callus. The callus has become red and open. It does have some drainage. Painful. Not improving. Toe beside the area is red. Her medications were reviewed today and her list is now up to date. Medications Current Outpatient Medications Medication Sig lisinopril 2.5 mg tablet Take 1 tablet by mouth once daily. alendronate (FOSAMAX) 70 mg tablet Take 1 tablet by mouth one time a week. Take with a full glass of water, on an empty stomach; do NOT lie down for 30minutes. atorvastatin (LIPITOR) 20 mg tablet Take one (1) tablet by mouth every evening at 9pm omeprazole (PRILOSEC) 20 mg capsule Take 1 capsule by mouth daily before breakfast. 1/2 hr before meal. PARoxetine (PAXIL) 20 mg tablet Take 1 tablet by mouth once daily. amLODIPine (NORVASC) 2.5 mg tablet Take 1 tablet by mouth two times a day. As directed naproxen (NAPROSYN) 250 mg tablet Take 250 mg by mouth two times a day with meals. EPINEPHrine (EPIPEN 2-MAKI) 0.3 mg/0.3 mL auto-injector Inject 0.3 mL intramuscularly as needed. Cholecalciferol, Vitamin D3, 25 mcg (1,000 unit) cap Take 1 capsule by mouth once daily. ferrous sulfate 325 mg (65 mg iron) tablet Take 325 mg by mouth daily with breakfast. fluticasone (FLONASE) 50 mcg/actuation nasal spray Use 2 Sprays in each nostril once daily. As needed. Rinse mouth after use. ASPIRIN 81 MG TAB Take one (1) tablet daily . MULTIVITAMIN TAB Take one(1) tablet daily. CALCIUM 500+D 500 MG-200 UNIT TAB doxycycline (VIBRA-TABS) 100 mg tablet Take 1 tablet by mouth two times a day for 10 days. No current facility-administered medications for this visit. ALLERGIES Allergen Reactions Keflex [Cephalexin] Rash, Other: See Comments Headache Penicillins ACTIVE PROBLEM LIST Impaired Glucose Metabolism - 07/16/2018 CKD (chronic kidney disease) Stage 3, GFR 30-59 ml/min - 01/29/2018 Osteoarthrosis Multiple Sites, Not Specified As Generalized - 12/09/2013 Hypertension - 06/25/2013 Comment: Use RIGHT ARM for BP readings. LEFT < RIGHT. Varicose Veins of Both Lower Extremities - 06/02/2012 Symptomatic Menopausal Or Female Climacteric States - 11/21/2010 Urge Incontinence of Urine - 11/23/2009 Idiopathic Neuropathy - 11/13/2009 Obesity, Unspecified - 11/22/2008 Pure Hypercholesterolemia - 07/24/2005 Anxiety State - 07/24/2005 Social History Tobacco Use Smoking status: Former Packs/day: 1.00 Years: 20.00 Additional pack years: 0.00 Total pack years: 20.00 Types: Cigarettes Quit date: 10/06/1978 Years since quittin.5 Smokeless tobacco: Never Substance Use Topics Alcohol use: No Drug use: No Review of Systems Respiratory: Negative. Cardiovascular: Negative. OBJECTIVE BP 114/52 Pulse 60 SpO2 97% Physical Exam Vitals and nursing note reviewed. Constitutional: General: She is awake. She is not in acute distress. Appearance: Normal appearance. She is well-developed and well-groomed. She is not ill-appearing, toxic-appearing or diaphoretic. HENT: Head: Normocephalic. Right Ear: External ear normal. Left Ear: External ear normal. Nose: Nose normal. Eyes: General: Vision grossly intact. Conjunctiva/sclera: Conjunctivae normal. Pupils: Pupils are equal, round, and reactive to light. Neck: Vascular: No JVD. Trachea: Trachea normal. Cardiovascular: Rate and Rhythm: Normal rate and regular rhythm. Pulses: Normal pulses. Heart sounds: Normal heart sounds. No murmur heard. Pulmonary: Effort: Pulmonary effort is normal. No accessory muscle usage, prolonged expiration or respiratory distress. Breath sounds: Normal breath sounds. Musculoskeletal: Cervical back: Neck supple. Feet: Feet: Comments: Right bottom of foot, lateral aspect near 5th digit with callus that has open areas between 3-6 o clock and 9-12 o clock positions. 5th digit with erythema, slight warmth Skin: General: Skin is warm and dry. Capillary Refill: Capillary refill takes less than 2 seconds. Neurological: General: No focal deficit present. Mental Status: She is alert and oriented to person, place, and time. Mental status is at baseline. Psychiatric: Attention and Perception: Attention and perception normal. Mood and Affect: Mood and affect normal. Speech: Speech normal. Behavior: Behavior normal. Behavior is cooperative. Thought Content: Thought content normal. Cognition and Memory: Cognition and memory normal. Judgment: Judgment normal. ASSESSMENT/PLAN: 1. Open wound of right foot excluding one or more toes, initial encounter - ICD9: 892.0, ICD10: S91.301A (primary diagnosis) We can culture the area, start doxycycline. She follows with podiatry, Dr. Flower. Appointment made for tomorrow. Discussed care of the area in the mean time. - ABSCESS AND WOUND CULTURE WITH GRAM STAIN - DOXYCYCLINE HYCLATE 100 MG TABLET 2. Cellulitis of other specified site - ICD9: 682.8, ICD10: L03.818 - No lymphangetic streaking, this was defined for patient to watch for and to seek medical care immediately if appears - Area of cellulitis defined, seek further attention if this area continues to enlarge Portions of this note have been entered by ancillary staff. I have reviewed and when necessary edited, so that they are an adequate record of my encounter with this patient Please note that parts of this document were created using voice recognition software and therefore may contain grammatical errors. Patient verbalizes understanding of instructions from today's visit and in agreement with treatment plan. Questions answered. Agrees to call the office if questions, concerns of issues with acute symptoms not improving or if they worsen. See diagnoses and orders for additional plan(s). Allergies and medications were reviewed, list was updated, and refills given if needed. Past medical, surgical, social, and family history reviewed and updated as appropriate. Encouraged proper diet & exercise as well as compliance with taking medications. Age-appropriate health preventative measures were discussed.. Return if symptoms worsen or fail to improve, for Keep next scheduled appointment.. Sho Bruno APRN-AYAN documented in this encounter [facility] 04-28-2024 Telephone encounter Note Patient calls and states that since she had fallen previously month ago her right foot is crooked. Patient states that due to this she has developed a callous on bottom of right foot. Callous is currently red and open. Patient asking if antibiotics can be called into pharmacy. Advised patient that she needs to be seen for this so that provider can evaluated wound. Patient voiced understanding. Patient scheduled with Sho silveira at 1:00 pm. Kamini Cabrera RN [facility] 04-28-2024 Miscellaneous Notes Patient calls and states that since she had fallen previously month ago her right foot is crooked. Patient states that due to this she has developed a callous on bottom of right foot. Callous is currently red and open. Patient asking if antibiotics can be called into pharmacy. Advised patient that she needs to be seen for this so that provider can evaluated wound. Patient voiced understanding. Patient scheduled with Sho silveira at 1:00 pm. Kamini Cabrera RN documented in this encounter [facility] 04-23-2024 Telephone encounter Note Left a message on Lidia FUNES with [facility], OT concerning the order being faxed to [facility]. Jahaira Hurst LPN [facility] 04-23-2024 Miscellaneous Notes Left a message on Lidia RN with [facility], OT concerning the order being faxed to . Jahaira Hurst LPN Attempted x 2 to get the fax number for the facility, will call again. Information ready to fax. Jahaira Hurst LPN See if order as printed okay Lidia with [facility] calling to let you know pt is being d/c today from OT and Friday being d/c from [facility] PT. Lidia is requesting outpt OT and PT for pt to start next week at [facility] . Orders will need to be faxed there. DX: OT - coordination deficit - like a spinal cord injury but has not been dx this. PT- nerve impairment right foot. Please advise Lidia back when this orders have been faxed. Vandana Boswell LPN documented in this encounter [facility] 04-23-2024 Telephone encounter Note Attempted x 2 to get the fax number for the facility, will call again. Information ready to fax. Jahaira Hurst LPN [facility] 04-21-2024 Telephone encounter Note See if order as printed okay [facility] 04-21-2024 Telephone encounter Note Lidia with [facility] calling to let you know pt is being d/c today from OT and Friday being d/c from [facility] PT. Lidia is requesting outpt OT and PT for pt to start next week at [facility] . Orders will need to be faxed there. DX: OT - coordination deficit - like a spinal cord injury but has not been dx this. PT- nerve impairment right foot. Please advise Lidia back when this orders have been faxed. Vandana Boswell LPN [facility] 04-16-2024 Telephone encounter Note RUBY Dia @ [facility] notified that order for ankle/foot orthotic has be faxed to [facility] 04-16-2024 Miscellaneous Notes RUBY Dia @ [facility] notified that order for ankle/foot orthotic has be faxed to [facility] [place] RUBY Dia @ [facility] calling to request order for ankle/foot orthotic be faxed to [facility]. Patient has persistent foot drop right foot. Ifeoma's ph # [phone] Rosalia Levi RN documented in this encounter [facility] 04-16-2024 Telephone encounter Note OK [facility] 04-15-2024 Telephone encounter Note Ifeoma, PT @ [facility] calling to request order for ankle/foot orthotic be faxed to [facility]. Patient has persistent foot drop right foot. Ifeoma's ph # [phone] Rosalia Levi RN [facility] 04-02-2024 Telephone encounter Note Noted, agreed. [facility] 04-02-2024 Miscellaneous Notes Noted, agreed. Ifeoma with [facility] Physical Therapy calling. They plan to continue pt's PT 2 times per week for 3 weeks for lower extremity strengthening, gait training, balance and endurance. No call back needed if provider agreeable. Libertad Rodrigues RN documented in this encounter [facility] 04-02-2024 Telephone encounter Note Ifeoma with [facility] Physical Therapy calling. They plan to continue pt's PT 2 times per week for 3 weeks for lower extremity strengthening, gait training, balance and endurance. No call back needed if provider agreeable. Libertad Rodrigues RN [facility] 03-29-2024 Telephone encounter Note Okay for home health care [facility] Work Phone: 03-29-2024 Miscellaneous Notes Okay for home health care Lidia with [facility], OT calling with an updated plan of care for pt. Lidia reports they are extending pt's OT. They will be seeing pt 1 time week for 1 week, then 2 time a week for 3 weeks for IADLs and home exercising. No call back needed. Vandana Boswell LPN documented in this encounter [facility] 03-29-2024 Telephone encounter Note Lidia with [facility], OT calling with an updated plan of care for pt. Lidia reports they are extending pt's OT. They will be seeing pt 1 time week for 1 week, then 2 time a week for 3 weeks for IADLs and home exercising. No call back needed. Vandana Boswell LPN [facility] 03-25-2024 Telephone encounter Note Called and spoke to Cori. Explained we will fax note where Dr. Sullivan' gave some instructions if pt continues to have constipation issues. Will call if any questions after reviewing it. Telephone encounter from 03/23 faxed to Cori at [facility] 03-25-2024 Miscellaneous Notes Called and spoke to Cori. Explained we will fax note where Dr. Pedersen gave some instructions if pt continues to have constipation issues. Will call if any questions after reviewing it. Telephone encounter from 03/23 faxed to Cori at [facility] Patient given recommendation in 03/23 telephone encounter RE: constipation --see that note. Can fax it to Odell, Cori from [facility] home health calls pt's reports being placed on miralax and senna but there is nothing of this in last office note or on med list. They are asking if pt is to beon these and if so what dose and are they to be prn? documented in this encounter [facility] 03-25-2024 Telephone encounter Note Patient given recommendation in 03/23 telephone encounter RE: constipation --see that note. Can fax it to Odell, [facility] 03-25-2024 Telephone encounter Note Cori from [facility] home health calls pt's reports being placed on miralax and senna but there is nothing of this in last office note or on med list. They are asking if pt is to beon these and if so what dose and are they to be prn? [facility] 03-24-2024 Telephone encounter Note Noted [facility] 03-24-2024 Miscellaneous Notes Noted Called and spoke with pt. She states she had her sister give her a Fleets enema and she had good results from that. Pt given Dr. Sullivan' recommendations to prevent constipation. Pt verbalizes understanding. MyChart message tp patient. Dulcolax tablet one today and may repeat tomorrow if still not adequate bowel movement. May add Miralax 1 capful once daily in AM to help prevent constipation. If the Fiberlax (calcium polycarbophil) is not helping, stop taking it and may try adding Metamucil instead on the evening. Progress note tomorrow Attempted to reach [facility] OT, Lidia and patient with no answer at either number. Jahaira Hurst LPN Dulcolax tablet one today and may repeat tomorrow if still not adequate bowel movement. May add Miralax 1 capful once daily in AM to help prevent constipation. If the Fiberlax (calcium polycarbophil) is not helping, stop taking it and may try adding Metamucil instead on the evening. Progress note tomorrow Lidia with [facility], OT calling with a report from seeing pt today 03-23-24. Pt reports no bowel movement for 3 to 4 days. Pt started on colace 10 mg 2 days ago 03-21-24. She is taking 2 every day. Also taking Fiber laxative - calcium Polycarbophil 625 mg taking 2 per day. Pt also drinking the hospital water bottles 1 1/2 per day. Pt was instructed by Lidia to continue to drink fluid. Please advise pt on what else she can do since no BM x 3 to 4 days. Vandana Boswell LPN documented in this encounter [facility] 03-24-2024 Telephone encounter Note Called and spoke with pt. She states she had her sister give her a Fleets enema and she had good results from that. Pt given Dr. Sullivan' recommendations to prevent constipation. Pt verbalizes understanding. [facility] 03-23-2024 Telephone encounter Note MyChart message tp patient. Dulcolax tablet one today and may repeat tomorrow if still not adequate bowel movement. May add Miralax 1 capful once daily in AM to help prevent constipation. If the Fiberlax (calcium polycarbophil) is not helping, stop taking it and may try adding Metamucil instead on the evening. Progress note tomorrow [facility] 03-23-2024 Telephone encounter Note Attempted to reach [facility] OT, Lidia and patient with no answer at either number. Jahaira Hurst LPN [facility] 03-23-2024 Telephone encounter Note Dulcolax tablet one today and may repeat tomorrow if still not adequate bowel movement. May add Miralax 1 capful once daily in AM to help prevent constipation. If the Fiberlax (calcium polycarbophil) is not helping, stop taking it and may try adding Metamucil instead on the evening. Progress note tomorrow [facility] 03-23-2024 Telephone encounter Note Lidia with [facility], OT calling with a report from seeing pt today 03-23-24. Pt reports no bowel movement for 3 to 4 days. Pt started on colace 10 mg 2 days ago 03-21-24. She is taking 2 every day. Also taking Fiber laxative - calcium Polycarbophil 625 mg taking 2 per day. Pt also drinking the hospital water bottles 1 1/2 per day. Pt was instructed by Lidia to continue to drink fluid. Please advise pt on what else she can do since no BM x 3 to 4 days. Vandana Boswell LPN [facility] 03-19-2024 Telephone encounter Note Prescription Refill Information The patient has been identified by name and date of : Yes Caregiver verified no other encounters exist for this prescription request: Yes Caregiver confirmed with patient/requestor that no other refills are due, in the near future, with this provider at this time: Yes The last office visit in the department: 03/02/2024 Does the patient have a future office visit with this provider/department: Yes Requested Prescriptions Pending Prescriptions Disp Refills lisinopril 2.5 mg tablet Sig: Take 1 tablet by mouth once daily. Karuna Gutiérrez March 19, 2024 10:10 AM [facility] 03-19-2024 Miscellaneous Notes Prescription Refill Information The patient has been identified by name and date of : Yes Caregiver verified no other encounters exist for this prescription request: Yes Caregiver confirmed with patient/requestor that no other refills are due, in the near future, with this provider at this time: Yes The last office visit in the department: 03/02/2024 Does the patient have a future office visit with this provider/department: Yes Requested Prescriptions Pending Prescriptions Disp Refills lisinopril 2.5 mg tablet Sig: Take 1 tablet by mouth once daily. Karuna Gutiérrez March 19, 2024 10:10 AM documented in this encounter [facility] 03-11-2024 Telephone encounter Note Noted. Lianet Sullivan MD [facility] 03-11-2024 Miscellaneous Notes Noted. Lianet Sullivan MD Odell, nurse @ [facility] calling with plan of care. Nursing evaluated patient today and will plan to see x 1 next week for BP check. They will contact [facility] for follow up. Rosalia Levi RN documented in this encounter [facility] 03-11-2024 Telephone encounter Note Odell, nurse @ [facility] calling with plan of care. Nursing evaluated patient today and will plan to see x 1 next week for BP check. They will contact [facility] for follow up. Rosalia Levi RN [facility] 03-11-2024 Telephone encounter Note Agreeable [facility] 03-11-2024 Miscellaneous Notes Agreeable Lidia with [facility] OT calling regarding patient. Reporting there was a delay of OT/care for patient. Reporting PT plan of care. Pt will be seen by OT 2 times per week for 3 weeks then 1 time per week for 1 week. No call back needed, if agreeable. Libertad Rodrigues RN documented in this encounter [facility] 03-09-2024 Telephone encounter Note Lidia with [facility] OT calling regarding patient. Reporting there was a delay of OT/care for patient. Reporting PT plan of care. Pt will be seen by OT 2 times per week for 3 weeks then 1 time per week for 1 week. No call back needed, if agreeable. Libertad Rodrigues RN [facility] 03-08-2024 History of Present illness Narrative This note was created using [email or web address]. Subjective Kiesha Colvin is a 83 year old female. Patient presents with: Hospital F/U: [facility] Rehab discharge 02/27/24 SUBJECTIVE: Kiesha Colvin is a 83 year old year old lady here today for follow up appointment for review of medical conditions: Hospital follow up after rehab--got home 02/26. Right ear--had to wear a neck brace and made it sore on right side. Still feels like talking in a barrel. No pain noted. Just right ear hearing affected. Reviewed fall and contusion cervical spine after fell. Gets numbness and tingling in pinky and ring fingers both hands; sometimes ulnar side of right arm. Had leg itching and numbness--feeling coming back. Goes to [place] for neurosurgeon follow up. noted surgery done because not a surgical candidate after test donee. No new bladder issues. Noted had lumbar disc extrusion. Walking okay okay now. Right foot crooked. Wearing brace. Cardiology adjusting amlodipine. Was increased at hospital. Doing home PT. Starting to see her this week. Also OT from [facility]. PAST MEDICAL HISTORY Diagnosis Date ANEMIA NOS 04/21/2009 Colonoscopy in 10-11: tics and hems with no polpys Started iron as an inpt per Dr. Sales: pt reportedly giving multiple blood donations Hct 33% in 04-13, 06-14 Iron 72, Ferritin 162 (8-252), TIBC 344 in 06-14: stop iron supplements and repeat levels in follow up Anxiety state, unspecified Arthritis CELLULITIS NOS 04/18/2009 WBC 9 K, ESR 118 in 04-13 for cellulitis of R foot Empiric Levaquin for R foot in 04-13: rec to return to Podiatry Admitted 04-19-09 for cellulitis: discharged on Doxy and rec to ID (MRI of the R foot negative for osteo) Depressive disorder, not elsewhere classified Diverticulosis of colon (without mention of hemorrhage) Diverticulosis of colon (without mention of hemorrhage) Family history of malignant neoplasm of gastrointestinal tract family history of colon cancer Family history of malignant neoplasm of gastrointestinal tract Hypertension Idiopathic neuropathy 11/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 is 28.8. To continue the vit D 50,000 one po weekly Current Outpatient Medications Medication Sig naproxen (NAPROSYN) 250 mg tablet Take 250 mg by mouth two times a day with meals. EPINEPHrine (EPIPEN 2-MAKI) 0.3 mg/0.3 mL auto-injector Inject 0.3 mL intramuscularly as needed. Cholecalciferol, Vitamin D3, 25 mcg (1,000 unit) cap Take 1 capsule by mouth once daily. ferrous sulfate 325 mg (65 mg iron) tablet Take 325 mg by mouth daily with breakfast. fluticasone (FLONASE) 50 mcg/actuation nasal spray Use 2 Sprays in each nostril once daily. As needed. Rinse mouth after use. ASPIRIN 81 MG TAB Take one (1) tablet daily . MULTIVITAMIN TAB Take one(1) tablet daily. CALCIUM 500+D 500 MG-200 UNIT TAB alendronate (FOSAMAX) 70 mg tablet Take 1 tablet by mouth one time a week. Take with a full glass of water, on an empty stomach; do NOT lie down for 30minutes. atorvastatin (LIPITOR) 20 mg tablet Take one (1) tablet by mouth every evening at 9pm omeprazole (PRILOSEC) 20 mg capsule Take 1 capsule by mouth daily before breakfast. 1/2 hr before meal. PARoxetine (PAXIL) 20 mg tablet Take 1 tablet by mouth once daily. amLODIPine (NORVASC) 2.5 mg tablet Take 1 tablet by mouth two times a day. As directed lisinopril 2.5 mg tablet Take 2.5 mg by mouth once daily. No current facility-administered medications for this visit. Review of Systems Objective BP 102/59 Pulse 70 Temp 36.9 C (98.5 F) Resp 18 SpO2 96% Last 5 Encounter Wt Readings: Date: Wt: 03/08/2024 0 kg () 07/11/2023 86.6 kg (191 lb) 01/03/2023 85.3 kg (188 lb) 07/05/2022 85.3 kg (188 lb) 06/28/2022 85.7 kg (189 lb) No waist measurement recorded Estimated body mass index is 36.09 kg/m as calculated from the following: Height as of 01/30/21: 154.9 cm (5' 1). Weight as of 07/11/23: 86.6 kg (191 lb). Last 5 Encounter BP Readings: Date: BP: 03/08/2024 102/59 07/11/2023 132/60 01/03/2023 118/74 07/05/2022 126/66 06/28/2022 136/64 Physical Exam Constitutional: Appearance: Normal appearance. HENT: Head: Normocephalic. Left Ear: Tympanic membrane, ear canal and external ear normal. Ears: Comments: Right TM is dull; not red or bulging Eyes: Conjunctiva/sclera: Conjunctivae normal. Cardiovascular: Rate and Rhythm: Normal rate and regular rhythm. Heart sounds: Normal heart sounds. Pulmonary: Effort: Pulmonary effort is normal. Breath sounds: Normal breath sounds. Musculoskeletal: Right lower leg: Edema present. Left lower leg: No edema. Comments: Ankle brace on right ankle; Mildly inverted. Decreased ROM fingers right hand Skin: General: Skin is warm and dry. Neurological: General: No focal deficit present. Mental Status: She is alert and oriented to person, place, and time. Psychiatric: Mood and Affect: Mood normal. Behavior: Behavior normal. Thought Content: Thought content normal. Judgment: Judgment normal. Assessment and Plan Encounter Diagnosis ICD-10-CM 1. Osteopenia of neck of right femur M85.851 alendronate (FOSAMAX) 70 mg tablet Recommend start Fosamax since close to osteoporosis range and high risk for fracture. 2. Essential hypertension I10 amLODIPine (NORVASC) 2.5 mg tablet Controlled. Adjust meds as indicated. Continue present management 3. Pure hypercholesterolemia E78.00 atorvastatin (LIPITOR) 20 mg tablet Contiue statin. Labs for follow up per routine 4. Anxiety state F41.1 PARoxetine (PAXIL) 20 mg tablet Stable on current meds 5. Decreased hearing of right ear H91.91 Treat eustachian tube as discussed 6. Dysfunction of right eustachian tube H69.91 Try nasal saline routinely. ENT as needed Above issues addressed with patient. Patient involved in shared decision making for management of medical issues. History and medications reviewed. Epic updated as needed Refills and/or prescriptions taken care of and meds adjusted as indicated after reviewed history, exam and labs. Health Maintenance reviewed. Updated record and/or ordered tests as recorded. Encouraged on efforts at healthy diet and regular exercise and adequate sleep. Lianet Sullivan MD documented in this encounter [facility] 03-02-2024 Telephone encounter Note [facility] HH- reports he did start of care on Friday, and plans to see patient 1 x week for 2 weeks. Reports he found no medication issues with patient. Reports patient did refuse the HHAide b/c her sister is living with her and helping her with baths and things. Given verbal order from previous encounter- Ok for [facility]. [facility] 03-02-2024 Miscellaneous Notes [facility] HH- reports he did start of care on Friday, and plans to see patient 1 x week for 2 weeks. Reports he found no medication issues with patient. Reports patient did refuse the HHAide b/c her sister is living with her and helping her with baths and things. Given verbal order from previous encounter- Ok for [facility]. documented in this encounter [facility] 03-02-2024 Note ORIGINAL EXAMINATION: FIVE XRAY VIEWS OF THE CERVICAL SPINE INCLUDING FLEX/EX VIEWS 03/02/2024 10:55 am COMPARISON: CT cervical spine on 12/30/2023. MRI of the cervical spine on 12/28/2023 HISTORY: ORDERING SYSTEM PROVIDED HISTORY: Reason for Exam: cervical fracture FINDINGS: Cervical spine alignment demonstrates no subluxation. Lateral views with flexion extension show no abnormal motion. There is moderate multilevel degenerative disc disease that is greatest at C5-C6 and C6-C7. No fracture is detected. Degenerative narrowing of facet joints bilaterally is present throughout the cervical spine. There is no prevertebral soft tissue swelling. IMPRESSION: 1. Moderate cervical spondylosis. 2. No fracture detected on this plain film exam. No subluxation. Interpreted by: Aldo Vivas MD Preliminary Report By: Aldo Vivas MD Electronically signed By Aldo Vivas MD Dictated Date: 03/03/2024 2:07:30 AM Prelim Date: 03/03/2024 2:12:10 AM Sign Date: 03/03/2024 2:12:10 AM Ordering Provider: DAISY BARBER [facility] 02-27-2024 Telephone encounter Note Attempted to contact Ifeoma from [facility] but no answer. Left providers message on voice mailbox and ask to call with any questions or concerns. [facility] 02-27-2024 Miscellaneous Notes Attempted to contact Ifeoma from [facility] but no answer. Left providers message on voice mailbox and ask to call with any questions or concerns. OK for [facility]. Ifeoma from [facility] HH calling, asking if PCP will follow for home care orders for retirement, PT, OT, and HH aid. Please advise. documented in this encounter [facility] 02-27-2024 Telephone encounter Note OK for HHC. [facility] Work Phone: 02-27-2024 Telephone encounter Note Ifeoma from [facility] HH calling, asking if PCP will follow for home care orders for retirement, PT, OT, and HH aid. Please advise. [facility] 01-11-2024 Nurse Discharge summary gave report to stacey at [facility] 01-11-2024 Hospital Discharge instructions Patient Education 01/11/2024 10:16:07 Understanding Your Risk for Falls Understanding Your Risk for Falls Each year, millions of people suffer serious injuries from falls. It is important to understand your risk for falling. Talk with your health care provider about your risk and what you can do to lower it. There are actions you can take at home to lower your risk. If you do have a serious fall, it is important to tell your health care provider. Falling once raises your risk for falling again. How can falls affect me? Serious injuries from falls are common. These include: Broken bones. Most hip fractures are caused by falls. Traumatic brain injury (TBI). Falls are the most common cause of TBI. Fear of falling can also cause you to avoid activities and stay at home. This can make your muscles weaker and actually raise your risk for a fall. What can increase my risk? Serious injuries from a fall most often happen to people older than age 65. Children and young adults ages 15 29 are also at higher risk. The more risk factors you have for falling, the higher your risk. Risk factors include: Weakness in the lower body. Lack (deficiency) of vitamin D. Weak bones (osteoporosis). Being generally weak or confused due to long-term (chronic) illness. Dizziness or balance problems. Poor vision. Having depression. Medicine that causes dizziness or drowsiness. These can include medicines for your blood pressure, heart, anxiety, insomnia, or edema, as well as pain medicines and muscle relaxants. Drinking alcohol. Foot pain or improper footwear. Working at a dangerous job. Having had a fall in the past. Tripping hazards at home, such as floor clutter or loose rugs, or poor lighting. Having pets or clutter in your home. What actions can I take to lower my risk of falling? Maintain physical fitness: ?Do strength and balance exercises. Consider taking a regular class to build strength and balance. Yoga and rocío chi are good options. ?Have your eyes checked every year and your vision prescription updated as needed. Remove all clutter from walkways and stairways, including extension cords. Use a cordless phone. Do not use throw rugs. Make sure all carpeting is taped or tacked down securely. Use good lighting in all rooms. Keep a flashlight near your bed. Make sure there is a clear path from your bed to the bathroom. Use night-lights. Install grab bars for your tub, shower, and toilet. Use a bath mat in your tub or shower. Attach secure railings on both sides of your stairs. Repair uneven or broken steps. Use a cane or walker as directed by your health care provider. Wear nonskid shoes. Do not wear high heels. Do not walk around the house in socks or slippers. Avoid walking on icy or slippery surfaces. Walk on the grass instead of on icy or slick sidewalks. Where you can, use ice melt to get rid of ice on walkways. Questions to ask your health care provider Can you help me evaluate my risk for a fall? Do any of my medicines make me more likely to fall? Should I take a vitamin D supplement? What exercises can I do to improve my strength and balance? Should I make an appointment to have my vision checked? Do I need a bone density test to check for osteoporosis? Would it help to use a cane or a walker? Where to find more information Centers for Disease Control and PreventionFRANCESCO: cdc.gov Community-Based Fall Prevention Programs: cdc.gov National [place] on Aging: cj3peth.wicho.nih.gov Contact a health care provider if: You fall at home. You are afraid of falling at home. You feel weak, drowsy, or dizzy at home. Summary People 65 and older are at high risk for falling. However, older people are not the only ones injured in falls. Children and young adults have a sjjqoz-ixry-bbhwhr risk, too. Talk with your health care provider about your risks for falling and how to lower those risks. Taking certain precautions at home can lower your risk for falling. If you fall, always tell your health care provider. This information is not intended to replace advice given to you by your health care provider. Make sure you discuss any questions you have with your health care provider. Document Released: 05/06/2018 Document Revised: 12/22/2018 Document Reviewed: 05/06/2018 [employer] Patient Education 2020 [employer]. Follow Up Care 12/28/2023 02:10:23 With:DAISY BARBER MD, Neurosurgery Address: [address] [place] [phone] When:02/03/2024 13:00:00 [facility] 01-11-2024 Note Discharge Instructions Thank you for allowing [facility] to assist you with your healthcare needs. The following is important discharge information regarding your hospital visit. Your Care Team LIANET SULLIVAN MD Your Diagnosis Anxiety Fall Hyperlipidemia Hypertension Insomnia Sleep apnea What to do next Instructions From Your Doctor Wear hard cervical collar at all times. Patient must have assistance with any mobility or transfers to prevent falls. She could have permanent damage to her spinal cord if she were to fall or have at traumatic injury. Please notify the Neurosurgery office or return to ER if you develops worsening numbness/tingling or weakness in her extremities. Scheduled Follow-Up Appointments Appointment Type When With Where Contact InformationNS OV 02/03/2024 01:00 PM EDT DAISY BARBER MD Neurosurgery [address] [place] [phone] Follow Up Appointments Follow Up with DAISY BARBER MD, Neurosurgery When 02/03/2024 01:00 PM EDT Where: [address] [facility] [address] [place] [address]- [phone] The Following Activity and Diet Have Been Ordered for You No qualifying data available. No qualifying data available. The Following Equipment Has Been Ordered for You No qualifying data available. The Following Treatments Have Been Ordered for You Discharge Labs No qualifying data available. Discharge Radiology No qualifying data available. Other Therapies Discharge Event Monitor Instructions - Ordered -- 01/09/24 11:01:11 EDT, You have been ordered mobile outpatient telemetry. You should receive a device in the mail with further instructions. If you have not received a device within 7 days after discharge, please call [facility] at [phone]. Post Acute Orders No qualifying data available. Someone Will Contact You Regarding These Home Health Referrals No home referrals have been ordered for you. No one will call you. Allergies Bee Stings (Bee Stings) Levaquin (rash) penicillin (rash) Medications Please ask your primary doctor or pharmacist before taking any other medication not listed, including over the counter drugs, herbal medications, vitamins and or supplements as they may interact with your home medications. What How Much When Instructions Last Dose New acetaminophen (Tylenol) 1,000 Milligram by mouth Three (3) times a day as needed for Pain, scale 1-6 New bisacodyl (Dulcolax Laxative 10 mg rectal suppository) 1 suppository(ies) in the rectum Once a day as needed for Constipation New dexAMETHasone (dexAMETHasone 2 mg oral tablet) 1 tab(s) by mouth Two (2) times a day Continue to wean dose: 2 mg BID x48 hrs (until 4/ 9 PM dose), then decrease to 1 mg BID x48 hrs, then 1 mg daily x48hrs, then 1 mg every other day x 48hrs, then stop. New docusate-senna (docusate-senna 50 mg-8.6 mg oral tablet) 1 tab(s) by mouth Two (2) times a day New heparin (heparin 5000 units/ mL injection) 1 Milliliter Subcutaneous Every 8 hours New melatonin (melatonin 3 mg oral tablet) 1 tab(s) by mouth Daily at bedtime as needed for Sleep New miconazole topical (miconazole 2% topical powder) 1 application Topical Two (2) times a day New nystatin (nystatin 100,000 units/ mL oral suspension) 5 Milliliter Swish in mouth and swallow Every 6 hours New polyethylene glycol 3350 (Miralax Powder Packet) by mouth Once a day Unchanged amLODIPine (amLODIPine 2.5 mg oral tablet) 1 tab(s) by mouth Once a day Unchanged aspirin (aspirin 81 mg oral delayed release tablet) 1 tab(s) by mouth Once a day Unchanged atorvastatin (Lipitor 20 mg oral tablet) 1 tab(s) by mouth Once a day Unchanged cholecalciferol (Vitamin D3) 50 Microgram by mouth Once a day Unchanged multivitamin (Multivitamin) 1 cap by mouth Once a day Unchanged omeprazole (omeprazole 20 mg oral delayed release capsule) 1 cap by mouth Once a day (in the morning) Unchanged PARoxetine (Paxil 20 mg oral tablet) 1 tab(s) by mouth Once a day Please take this list to your next doctor s visit. Bring all medications you take, including over the counter medications, herbals and other supplements with you to your doctor s visit. Patients and families are reminded to discard old lists and to update any records with all medication providers or retail pharmacies. Education Materials Understanding Your Risk for Falls Each year, millions of people suffer serious injuries from falls. It is important to understand your risk for falling. Talk with your health care provider about your risk and what you can do to lower it. There are actions you can take at home to lower your risk. If you do have a serious fall, it is important to tell your health care provider. Falling once raises your risk for falling again. How can falls affect me? Serious injuries from falls are common. These include: Broken bones. Most hip fractures are caused by falls. Traumatic brain injury (TBI). Falls are the most common cause of TBI. Fear of falling can also cause you to avoid activities and stay at home. This can make your muscles weaker and actually raise your risk for a fall. What can increase my risk? Serious injuries from a fall most often happen to people older than age 65. Children and young adults ages 15 29 are also at higher risk. The more risk factors you have for falling, the higher your risk. Risk factors include: Weakness in the lower body. Lack (deficiency) of vitamin D. Weak bones (osteoporosis). Being generally weak or confused due to long-term (chronic) illness. Dizziness or balance problems. Poor vision. Having depression. Medicine that causes dizziness or drowsiness. These can include medicines for your blood pressure, heart, anxiety, insomnia, or edema, as well as pain medicines and muscle relaxants. Drinking alcohol. Foot pain or improper footwear. Working at a dangerous job. Having had a fall in the past. Tripping hazards at home, such as floor clutter or loose rugs, or poor lighting. Having pets or clutter in your home. What actions can I take to lower my risk of falling? Maintain physical fitness: ? Do strength and balance exercises. Consider taking a regular class to build strength and balance. Yoga and rocío chi are good options. ? Have your eyes checked every year and your vision prescription updated as needed. Remove all clutter from walkways and stairways, including extension cords. Use a cordless phone. Do not use throw rugs. Make sure all carpeting is taped or tacked down securely. Use good lighting in all rooms. Keep a flashlight near your bed. Make sure there is a clear path from your bed to the bathroom. Use night-lights. Install grab bars for your tub, shower, and toilet. Use a bath mat in your tub or shower. Attach secure railings on both sides of your stairs. Repair uneven or broken steps. Use a cane or walker as directed by your health care provider. Wear nonskid shoes. Do not wear high heels. Do not walk around the house in socks or slippers. Avoid walking on icy or slippery surfaces. Walk on the grass instead of on icy or slick sidewalks. Where you can, use ice melt to get rid of ice on walkways. Questions to ask your health care provider Can you help me evaluate my risk for a fall? Do any of my medicines make me more likely to fall? Should I take a vitamin D supplement? What exercises can I do to improve my strength and balance? Should I make an appointment to have my vision checked? Do I need a bone density test to check for osteoporosis? Would it help to use a cane or a walker? Where to find more information Centers for Disease Control and PreventionFRANCESCO: cdc.gov Community-Based Fall Prevention Programs: cdc.gov National [place] on Aging: bp7zluc.wicho.nih.gov Contact a health care provider if: You fall at home. You are afraid of falling at home. You feel weak, drowsy, or dizzy at home. Summary People 65 and older are at high risk for falling. However, older people are not the only ones injured in falls. Children and young adults have a njlhst-rytn-clvmbv risk, too. Talk with your health care provider about your risks for falling and how to lower those risks. Taking certain precautions at home can lower your risk for falling. If you fall, always tell your health care provider. This information is not intended to replace advice given to you by your health care provider. Make sure you discuss any questions you have with your health care provider. Document Released: 05/06/2018 Document Revised: 12/22/2018 Document Reviewed: 05/06/2018 [employer] Patient Education 2020 [employer] Additional Information VACCINATE! IT SAVES LIVES! Members of the community who have not yet received the COVID-19 vaccine and would like to receive it can visit one of [facility] vaccine clinics. There are many vaccine clinic locations within the [facility]. For locations and available times, please visit [email or web address].[place].go [email or web address] It is important to note that some COVID mobile vaccine clinics are held outdoors and may be canceled in rainy or stormy conditions. To learn more about pediatric vaccinations (ages 5-11), we invite you to visit the [facility] webpage. [email or web address]/[email or web address]-Gvieqdvuuuz-Frequently-[email or web address] -Questions.html To learn more about the COVID-19 vaccine, we invite you to visit the CDC website for a list of frequently asked questions.https://www.cdc.gov/coronavi ashley/2019-ncov/vaccines/faq.html [facility] Patient Portal Access Instructions: Stay connected with your healthcare team and access your personal medical information anytime with the [facility] Patient Portal. Please follow the directions below to create your [facility] account: 1.Access the email account you provided upon registration to the hospital/physician office.2.Look for an invitation email from [facility].3.Open the email and access the invitation link: Accept Invitation to [facility].4.Fill in the required barnes to create your account. To access your account, visit [email or web address]. Click the blue button labeled Access Patient Portal and then log in with the username and password that you created in the steps above. You will be able to view your test results, lab results, a summary of your visits, upcoming appointments and more. There is also a convenient messaging option where you can send secure messages to your provider. In addition, you will have the ability to download any documents or summaries to your computer and/or send the information securely to a physician. Remember that your healthcare information is confidential, so carefully consider who you will allow to register on the [facility] Patient Portal for access to your information. You can also access the [facility] Patient Portal on the [employer] corbin. Simply click on Patient Portal and then log into your account. If you would like to receive a full copy of your medical records, please contact the [facility] Medical Records Department by calling [phone], Friday through Friday between 8 a.m. and 4:30 p.m. HOW TO SAFELY DISPOSE OF PRESCRIPTION MEDICATIONS Please use one of the following methods to safely dispose of your unused medications. 1.Use a drug disposal kit: the drug disposal pouch allows you to safely discard your old and unused drugs. Ask your nurse to give you one when you are discharged.2.Visit a local take-back location: Many local pharmacies and police departments have programs that collect old and unwanted prescription drugs. Call your local pharmacy or go to http://Moneytree.Instant BioScan/7T5Sq6b to find one close to you.3.Make use of household items: Use cat litter or old coffee grounds to dispose medications if other options are not available. Mix your drugs with these household products, seal them in an airtight container and throw it into the garbage. Call [facility]: [phone] to be sure your drugs can be disposed of in this way. Some medicines may require a different approach.4.Never flush your medications down the toilet. IF YOU HAVE BEEN PRESCRIBED AN OPIOID FOR PAIN If you have been prescribed an opioid (such as hydrocodone, oxycodone or morphine), it is critical to understand the possible side effects and risks of opioid pain medications. Even when taken as directed, opioids can have several side effects including: Tolerance, meaning you might need to take more of a medication for the same pain relief. Nausea, vomiting and/or constipation. Sleepiness, dizziness, dry mouth, confusion, depression or itching. Physical dependence, meaning you have withdrawal symptoms when a medication is stopped, can develop within a few days. KNOW YOUR RESPONSIBILITIES It is important to know exactly how much and how often to take the opioid pain medications you are prescribed. Never take opioids in higher amounts or more often than prescribed. Do not combine opioids with alcohol or other drugs that cause drowsiness, such as benzodiazepines, also known as benzos, including diazepam and alprazolam, muscle relaxants or sleep aids. Never sell or share prescription opioids. This is illegal. Store opioids in a secure place and out of reach of others (including children, family, friends and visitors). The last page of this document has been signed and retained as a CHART COPY. Signatures Patient Education Materials Understanding Your Risk for Falls Medication Leaflets My discharge plan and instructions have been reviewed and explained to me and I,KIESHA COLVIN understand my current condition and have read and understand these discharge instructions. I have received a written copy of the plan/instructions. If I have questions, I am aware that I should contact my doctor. 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 Hospital course: This is an 83-year-old female who presented to [facility] on 12/27/2023 after she sustained a fall when she was leaving [place]. She apparently stepped off a curb and fell face first onto the cement. She developed difficulty moving her bilateral upper extremities as well as her right lower extremity. During her evaluation, she had a CT of the head which was negative for any acute intracranial findings. She also had a CT of the facial bones which demonstrated a LeFort type I fracture. The CT of the cervical spine was negative for any acute osseous abnormalities but did demonstrate degenerative changes most significant at C5-6. Due to her difficulty moving her upper extremities and right lower extremity, an MRI of her cervical, thoracic, and lumbar spine were obtained. The MRI of the cervical spine demonstrated severe central canal stenosis and cord deformity at C5-6 with moderate to severe central canal stenosis at C6-7 with increased cord signal at C8 6 likely due to an acute cord contusion. There is also evidence of prevertebral edema at C3-T3. She was placed in a Cresson collar and loaded with 10 mg of dexamethasone and continued on the dexamethasone 4 mg every 6 hours. She was taken to the operating room on 12/31/2023 for a C5-C6 laminectomy by Dr. Barber. During surgery positioning, signals were lost when she was flipped into the prone position, therefore surgery was aborted and canceled. Signals returned once she was in the supine position. An arterial line has been left in place, to monitor her blood pressure and to keep a MAP greater than 85. Map has been greater than 85 over night. She has been bradycardic in the 40's. She states at home sometimes her HR is in 40's and she is asymptomatic. Cardiology was consulted. Cardiology has reviewed the echo and is cleared the patient for discharge to rehab. She will follow-up after she completes a 2-week conveyor monitor. She is asymptomatic of the bradycardia. She has been getting out of bed with nursing and PT. She required the juanito steady to stand. She has been tolerating this well. She has had no increase in paresthesias or pain in her upper extremities or lower extremities with mobility. This morning on exam, she is doing well. She still has weakness in her right UE. She can barely grasp with her right hand, but is able to move the 3rd, 4th, and 5th digits. Mobility of these digits appears improved. Her right tricep 3/5 and right bicep 4/5 on. Left UE hand grasp, triceps, biceps-strong 5/5. Her left dorsiflexion and plantarflexion is strong. She is able to lift her left leg off the bed without difficulty. Her right leg she has weak knee flexion, but is able to bend her knee much better compared to the beginning of the week. Patient can barely dorsiflexion on the right and has weak plantarflex. Complains of numbness in her bilateral hands worse on the right than left, as well as in her bilateral feet. She states she does have chronic numbness in her feet due to neuropathy, but this numbness is slightly worse than her baseline. She states it is improved compared to when she was admitted. She is immobilized in a Cresson collar. She is tolerating a diet well. Rowland catheter was removed yesterday and she is voiding via pure wick without difficulty. Objective Vitals and Measurements T: 36.6 C (Oral) TMIN: 36.4 C (Oral) TMAX: 36.7 C (Oral) HR: 36(Monitored) RR: 18 BP: 144/54 SpO2: 98% Intake and Output 7AM Yesterday to 7AM Today Intake and Output (Last 24 hours) Intake Oral Intake 240.00 Supplement Intake 150.00 Output Urine Voided 300.00 Urinary Catheter Output: 2150.00 Stool Count 4.00 Emesis Count 0.00 Total Summary Total Intake 390.00 Total Output 2450.00 Fluid Balance -0.00 Physical Exam General Appearance: This patient is well-developed and well nourished, and appears stated age. No acute distress. Head: Normocephalic, Atraumatic EENT: Mucous membranes moist. No vision or hearing changes Cardiac: S1 and S2. Bradycardia Lungs: Lungs clear. Respirations easy. No shortness of breath noted. Abdomen: BSP x 4. Abd soft, nontender, nondistended. Musculoskeletal: Moves all 4 ext-weakness to the right UE and LE. Extremities: Bilateral pedal pulses palpable. No edema noted Neurological: See HPI Skin: Pluckemin, warm, and dry. Psychiatric: Mood stable. Cooperative. Pleasant Weight Dosing Weight: 89.6 kg (12/28/23) Dosing Weight: 89.6 kg (12/28/23) Medications Medications (21) Active Scheduled: (10) atorvastatin 20 mg tablet 20 mg 1 tab(s), Oral, qDay bacitracin topical 500 units/g Ointment TUBE 1 corbin, Topical, TID dexamethasone 2 mg tablet 2 mg 1 tab(s), Oral, TID docusate-senna (Senokot S) 50 mg-8.6 mg Tablet 1 tab(s), Oral, BID heparin 5,000 units/mL (1 mL) vial 5,000 unit(s) 1 mL, Subcutaneous, q8h miconazole topical 2% Powder 1 corbin, Topical, BID nystatin susp 100,000 units/mL 5 mL UD 500,000 unit(s) 5 mL, Swish & Swallow, q6h pantoprazole 20 mg EC tablet 20 mg 1 tab(s), Oral, BIDAC paroxetine 20 mg tablet 20 mg 1 tab(s), Oral, qDay polyethylene glycol 3350 - UD packet 17 gram(s) 15 mL, Oral, qDay Continuous: (0) PRN: (11) acetaminophen 500 mg Tablet 1,000 mg 2 tab(s), Oral, TID albuterol - ipratropium 2.5 mg-0.5 mg/3 mL Inhal Jessi UD 3 mL, Inhalation, q2hRT bisacodyl 10 mg Suppository 10 mg 1 supp, Rectal, qDay bisacodyl 5 mg EC tablet 10 mg 2 tab(s), Oral, Once dextrose 50% Solution Disp syringe 50 mL 12.5 gram(s) 25 mL, IV Push, AsDirected hydralazine 20 mg/mL (1mL) vial 10 mg 0.5 mL, IV Push, q4h magnesium hydroxide 8% Suspension 30 mL UD 30 mL, Oral, qDay morphine 4 mg/mL 1mL INJ 4 mg 1 mL, IV Push, q3h ondansetron 2 mg/ 1 mL 2 mL INJ 4 mg 2 mL, IV Push, q4h oxycodone 5 mg tablet (immediate release) 5 mg 1 tab(s), Oral, q4h oxymetazoline nasal 0.05% Hudson 2 spray(s), Nostril, each, Once Lab Results No 36 Hour Lab Data Imaging Results and Diagnostics CT Spine Cervical w/o Contrast Result Date: December 30, 2023 Verified By: BONILLA MACKAY MD CLINICAL STATEMENT: IMPRESSION: 1. Moderate to severe central canal stenosis including [id number] atC4-C5, and severe at C5-C6 and C6-C7.2. Multilevel spondylotic changes resulting in moderate to severe foraminalstenosis including severe left C3-C4, severe left C4-C5, severe right atC5-C6, and moderate right at C6-C7.3. Level by level findings as described. XR Knee 1 or 2 Views Right Result Date: December 28, 2023 Verified By: AURY ZAMARRIPA MD CLINICAL STATEMENT: IMPRESSION: No acute osseous abnormality. XR Hand and Wrist 6 Views Left Result Date: December 28, 2023 Verified By: NEETU BILLINGSLEY MD CLINICAL STATEMENT: IMPRESSION: No acute fracture or dislocation. Possible DISI injury of the wrist. If clinical symptoms persist consider MRIto evaluate for ligamentous injury. XR Hand Minimum 3 Views Right Result Date: December 28, 2023 Verified By: NEETU BILLINGSLEY MD CLINICAL STATEMENT: IMPRESSION: No acute fracture or dislocation. Chronic healed deformities of the distal radius and ulna. Degenerative changes as above. XR Forearm 2 Views Right Result Date: December 28, 2023 Verified By: NEETU BILLINGSLEY MD CLINICAL STATEMENT: IMPRESSION: Cortical irregularity of the distal ulna not seen on same day hand x-ray isquestionably chronic versus acute in nature. This is nondisplaced.Correlate with point tenderness. XR Elbow Minimum 3 Views Left Result Date: December 28, 2023 Verified By: NEETU BILLINGSLEY MD CLINICAL STATEMENT: IMPRESSION: Normal examination of the left elbow. MRI Spine Lumbar w/o Contrast Result Date: December 28, 2023 Verified By: AURY ZAMARRIPA MD CLINICAL STATEMENT: IMPRESSION: 1. Right subarticular inferiorly migrated extrusion at L2-L3 moderatelynarrows the right lateral recess.2. Fluid signal in the L2-L3 disc with surrounding marrow edema and adjacentedema in the right psoas muscle and surrounding soft tissues. Findings arefavored to be degenerative or reactive in nature, however an infectiousetiology is within the differential but considered less likely.3. Multilevel degenerative changes as described above. MRI Spine Thoracic w/o Contrast Result Date: December 28, 2023 Verified By: AURY ZAMARRIPA MD CLINICAL STATEMENT: IMPRESSION: 1. Fluid in the L2-3 disc space with surrounding edema and adjacent softtissue edema. Findings could be degenerative or reactive/posttraumatic.2. There is mild edema in the prevertebral space extending from the cervicalspine through T3.3. Multilevel degenerative changes as above. MRI Spine Cervical w/o Contrast Result Date: December 28, 2023 Verified By: AURY ZAMARRIPA MD CLINICAL STATEMENT: IMPRESSION: 1. Multilevel degenerative changes with severe canal stenosis and corddeformity at C5-C6 and moderate to severe canal stenosis at C6-C7.2. Increased cord signal at the C6 level is likely due to acute cordcontusion given history of trauma.3. Prevertebral edema from C4 through T3. This is nonspecific and may bereactive.4. Varying degrees of neural foraminal stenosis as above, severe on the leftat C4-C5. CT Spine Lumbar w/o Contrast Result Date: December 28, 2023 Verified By: LAN ORTIZ MD CLINICAL STATEMENT: IMPRESSION: Multilevel degenerative changes is as detailed above. No acute traumaticinjury identified. CT Thorax w/o Contrast Result Date: December 28, 2023 Verified By: LAN ORTIZ MD CLINICAL STATEMENT: IMPRESSION: Mild peripheral reticular scarring and or fibrosis with minimalbronchiectasis at the lung bases. Findings could be seen in the setting ofchronic interstitial lung disease. No acute traumatic injury identified. EKG No qualifying data available. 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 Per Dr. Barber, patient with disc space collapse and disc osteophyte complexes at C5-6 and C6-7. There is also focal disc extrusion at C7 and T1. All of which are directly compressing the ventral spinal cord. -Patient taken to the OR 12/31/2023 for a C5-C6 laminectomy with Dr. Barber. Unfortunately, neuromonitoring signals were lost when the patient was positioned prone, therefore surgery was aborted and canceled. Signals returned once returned to supine. She was transferred to the [address] for close neurological monitoring, with 3:1 nursing care. -Overall, patient seems to be doing well. She worked with physical therapy and also got up to the chair with PT/OT yesterday. Nursing is getting her up to the chair again today with each meal. She can continue slowly mobilize short distances if tolerated well. If she develops any increased numbness or tingling in her upper or lower extremities or weakness, activity should be stopped and she should be placed back in bed. -Aggressive pulmonary toilet with incentive spirometer every hour while awake. -She is on subcu heparin for DVT prophylaxis with SCDs on while in bed. Bradycardia: -HR 35-40 -Patient states at home she believes her HR is in the 40's. -Cardiology consulted. Rehab facility would like her evaluated by cardiology prior to transfer. -Echo and 2 week heart monitor ordered per Cardiology. -Echo reviewed and patient has been cleared for rehab per Cardiology. Oral thrush: -On exam-tongue has white coating and she is complaining of pain in her mouth and her tongue. -Nystatin swish and spit ordered. 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 Hospital course: This is an 83-year-old female who presented to [facility] on 12/27/2023 after she sustained a fall when she was [place]. She apparently stepped off a curb and fell face first onto the cement. She developed difficulty moving her bilateral upper extremities as well as her right lower extremity. During her evaluation, she had a CT of the head which was negative for any acute intracranial findings. She also had a CT of the facial bones which demonstrated a LeFort type I fracture. The CT of the cervical spine was negative for any acute osseous abnormalities but did demonstrate degenerative changes most significant at C5-6. Due to her difficulty moving her upper extremities and right lower extremity, an MRI of her cervical, thoracic, and lumbar spine were obtained. The MRI of the cervical spine demonstrated severe central canal stenosis and cord deformity at C5-6 with moderate to severe central canal stenosis at C6-7 with increased cord signal at C8 6 likely due to an acute cord contusion. There is also evidence of prevertebral edema at C3-T3. She was placed in a Cresson collar and loaded with 10 mg of dexamethasone and continued on the dexamethasone 4 mg every 6 hours. She was taken to the operating room on 12/31/2023 for a C5-C6 laminectomy by Dr. Barber. During surgery positioning, signals were lost when she was flipped into the prone position, therefore surgery was aborted and canceled. Signals returned once she was in the supine position. An arterial line has been left in place, to monitor her blood pressure and to keep a MAP greater than 85. Map has been greater than 85 over night. She has been bradycardic in the 40's. She states at home sometimes her HR is in 40's and she is asymptomatic. Cardiology was consulted. Cardiology has reviewed the echo and is cleared the patient for discharge to rehab. She will follow-up after she completes a 2-week conveyor monitor. She is asymptomatic of the bradycardia. She has been getting out of bed with nursing and PT. She required the juanito steady to stand. She has been tolerating this well. She has had no increase in paresthesias or pain in her upper extremities or lower extremities with mobility. This morning on exam, she is doing well. She still has weakness in her right UE. She can barely grasp with her right hand, but is able to move the 3rd, 4th, and 5th digits. Mobility of these digits appears improved. Her right tricep 3/5 and right bicep 4/5 on. Left UE hand grasp, triceps, biceps-strong 5/5. Her left dorsiflexion and plantarflexion is strong. She is able to lift her left leg off the bed without difficulty. Her right leg she has weak knee flexion, but is able to bend her knee much better compared to the beginning of the week. Patient can barely dorsiflexion on the right and has weak plantarflex. Complains of numbness in her bilateral hands worse on the right than left, as well as in her bilateral feet. She states she does have chronic numbness in her feet due to neuropathy, but this numbness is slightly worse than her baseline. She states it is improved compared to when she was admitted. She is immobilized in a Cresson collar. She is tolerating a diet well. Rowland catheter was removed yesterday and she is voiding via pure wick without difficulty. Objective Vitals and Measurements T: 36.6 C (Oral) TMIN: 36.4 C (Oral) TMAX: 36.7 C (Oral) HR: 36(Monitored) RR: 18 BP: 144/54 SpO2: 98% Intake and Output 7AM Yesterday to 7AM Today Intake and Output (Last 24 hours) Intake Oral Intake 240.00 Supplement Intake 150.00 Output Urine Voided 300.00 Urinary Catheter Output: 2150.00 Stool Count 4.00 Emesis Count 0.00 Total Summary Total Intake 390.00 Total Output 2450.00 Fluid Balance -2060.00 Physical Exam General Appearance: This patient is well-developed and well nourished, and appears stated age. No acute distress. Head: Normocephalic, Atraumatic EENT: Mucous membranes moist. No vision or hearing changes Cardiac: S1 and S2. Bradycardia Lungs: Lungs clear. Respirations easy. No shortness of breath noted. Abdomen: BSP x 4. Abd soft, nontender, nondistended. Musculoskeletal: Moves all 4 ext-weakness to the right UE and LE. Extremities: Bilateral pedal pulses palpable. No edema noted Neurological: See HPI Skin: Pluckemin, warm, and dry. Psychiatric: Mood stable. Cooperative. Pleasant Weight Dosing Weight: 89.6 kg (12/28/23) Dosing Weight: 89.6 kg (12/28/23) Medications Medications (21) Active Scheduled: (10) atorvastatin 20 mg tablet 20 mg 1 tab(s), Oral, qDay bacitracin topical 500 units/g Ointment TUBE 1 corbin, Topical, TID dexamethasone 2 mg tablet 2 mg 1 tab(s), Oral, TID docusate-senna (Senokot S) 50 mg-8.6 mg Tablet 1 tab(s), Oral, BID heparin 5,000 units/mL (1 mL) vial 5,000 unit(s) 1 mL, Subcutaneous, q8h miconazole topical 2% Powder 1 corbin, Topical, BID nystatin susp 100,000 units/mL 5 mL UD 500,000 unit(s) 5 mL, Swish & Swallow, q6h pantoprazole 20 mg EC tablet 20 mg 1 tab(s), Oral, BIDAC paroxetine 20 mg tablet 20 mg 1 tab(s), Oral, qDay polyethylene glycol 3350 - UD packet 17 gram(s) 15 mL, Oral, qDay Continuous: (0) PRN: (11) acetaminophen 500 mg Tablet 1,000 mg 2 tab(s), Oral, TID albuterol - ipratropium 2.5 mg-0.5 mg/3 mL Inhal Jessi UD 3 mL, Inhalation, q2hRT bisacodyl 10 mg Suppository 10 mg 1 supp, Rectal, qDay bisacodyl 5 mg EC tablet 10 mg 2 tab(s), Oral, Once dextrose 50% Solution Disp syringe 50 mL 12.5 gram(s) 25 mL, IV Push, AsDirected hydralazine 20 mg/mL (1mL) vial 10 mg 0.5 mL, IV Push, q4h magnesium hydroxide 8% Suspension 30 mL UD 30 mL, Oral, qDay morphine 4 mg/mL 1mL INJ 4 mg 1 mL, IV Push, q3h ondansetron 2 mg/ 1 mL 2 mL INJ 4 mg 2 mL, IV Push, q4h oxycodone 5 mg tablet (immediate release) 5 mg 1 tab(s), Oral, q4h oxymetazoline nasal 0.05% Hudson 2 spray(s), Nostril, each, Once Lab Results No 36 Hour Lab Data Imaging Results and Diagnostics CT Spine Cervical w/o Contrast Result Date: December 30, 2023 Verified By: BONILLA MACKAY MD CLINICAL STATEMENT: IMPRESSION: 1. Moderate to severe central canal stenosis including [id number] atC4-C5, and severe at C5-C6 and C6-C7.2. Multilevel spondylotic changes resulting in moderate to severe foraminalstenosis including severe left C3-C4, severe left C4-C5, severe right atC5-C6, and moderate right at C6-C7.3. Level by level findings as described. XR Knee 1 or 2 Views Right Result Date: December 28, 2023 Verified By: MILI BOURGEOIS, AURY Armstrong CLINICAL STATEMENT: IMPRESSION: No acute osseous abnormality. XR Hand and Wrist 6 Views Left Result Date: December 28, 2023 Verified By: NEETU BILLINGSLEY MD CLINICAL STATEMENT: IMPRESSION: No acute fracture or dislocation. Possible DISI injury of the wrist. If clinical symptoms persist consider MRIto evaluate for ligamentous injury. XR Hand Minimum 3 Views Right Result Date: December 28, 2023 Verified By: NEETU BILLINGSLEY MD CLINICAL STATEMENT: IMPRESSION: No acute fracture or dislocation. Chronic healed deformities of the distal radius and ulna. Degenerative changes as above. XR Forearm 2 Views Right Result Date: December 28, 2023 Verified By: NEETU BILLINGSLEY MD CLINICAL STATEMENT: IMPRESSION: Cortical irregularity of the distal ulna not seen on same day hand x-ray isquestionably chronic versus acute in nature. This is nondisplaced.Correlate with point tenderness. XR Elbow Minimum 3 Views Left Result Date: December 28, 2023 Verified By: NEETU BILLINGSLEY MD CLINICAL STATEMENT: IMPRESSION: Normal examination of the left elbow. MRI Spine Lumbar w/o Contrast Result Date: December 28, 2023 Verified By: AURY ZAMARRIPA MD CLINICAL STATEMENT: IMPRESSION: 1. Right subarticular inferiorly migrated extrusion at L2-L3 moderatelynarrows the right lateral recess.2. Fluid signal in the L2-L3 disc with surrounding marrow edema and adjacentedema in the right psoas muscle and surrounding soft tissues. Findings arefavored to be degenerative or reactive in nature, however an infectiousetiology is within the differential but considered less likely.3. Multilevel degenerative changes as described above. MRI Spine Thoracic w/o Contrast Result Date: December 28, 2023 Verified By: AURY ZAMARRIPA MD CLINICAL STATEMENT: IMPRESSION: 1. Fluid in the L2-3 disc space with surrounding edema and adjacent softtissue edema. Findings could be degenerative or reactive/posttraumatic.2. There is mild edema in the prevertebral space extending from the cervicalspine through T3.3. Multilevel degenerative changes as above. MRI Spine Cervical w/o Contrast Result Date: December 28, 2023 Verified By: AURY ZAMARRIPA MD CLINICAL STATEMENT: IMPRESSION: 1. Multilevel degenerative changes with severe canal stenosis and corddeformity at C5-C6 and moderate to severe canal stenosis at C6-C7.2. Increased cord signal at the C6 level is likely due to acute cordcontusion given history of trauma.3. Prevertebral edema from C4 through T3. This is nonspecific and may bereactive.4. Varying degrees of neural foraminal stenosis as above, severe on the leftat C4-C5. CT Spine Lumbar w/o Contrast Result Date: December 28, 2023 Verified By: LAN ORTIZ MD CLINICAL STATEMENT: IMPRESSION: Multilevel degenerative changes is as detailed above. No acute traumaticinjury identified. CT Thorax w/o Contrast Result Date: December 28, 2023 Verified By: LAN ORTIZ MD CLINICAL STATEMENT: IMPRESSION: Mild peripheral reticular scarring and or fibrosis with minimalbronchiectasis at the lung bases. Findings could be seen in the setting ofchronic interstitial lung disease. No acute traumatic injury identified. EKG No qualifying data available. 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 Per Dr. Barber, patient with disc space collapse and disc osteophyte complexes at C5-6 and C6-7. There is also focal disc extrusion at C7 and T1. All of which are directly compressing the ventral spinal cord. -Patient taken to the OR 12/31/2023 for a C5-C6 laminectomy with Dr. Barber. Unfortunately, neuromonitoring signals were lost when the patient was positioned prone, therefore surgery was aborted and canceled. Signals returned once returned to supine. She was transferred to the [address] for close neurological monitoring, with 3:1 nursing care. -Overall, patient seems to be doing well. She worked with physical therapy and also got up to the chair with PT/OT yesterday. Nursing is getting her up to the chair again today with each meal. She can continue slowly mobilize short distances if tolerated well. If she develops any increased numbness or tingling in her upper or lower extremities or weakness, activity should be stopped and she should be placed back in bed. -Aggressive pulmonary toilet with incentive spirometer every hour while awake. -She is on subcu heparin for DVT prophylaxis with SCDs on while in bed. Bradycardia: -HR 35-40 -Patient states at home she believes her HR is in the 40's. -Cardiology consulted. Rehab facility would like her evaluated by cardiology prior to transfer. -Echo and 2 week heart monitor ordered per Cardiology. -Echo reviewed and patient has been cleared for rehab per Cardiology. Oral thrush: -On exam-tongue has white coating and she is complaining of pain in her mouth and her tongue. -Nystatin swish and spit ordered. Anticipated Date of Discharge Friday[facility] Time Spent 15 min Digitally Signed by CARLOS MAGDALENO on 01/10/2024 10:06 AM [facility] 01-09-2024 Cardiology Consult note Date of Service 01/08/2024 Reason for Consultation Sinus bradycardia Referring Physician Neurosurgery team History of Present Illness Patient is an 83-year-old female with medical history significant for sleep apnea with CPAP, hypertension, dyslipidemia, who presented from [facility] on 12/26 after mechanical fall when she lost her footing going down the curb leaving Bible study on Friday night. Fell face first onto the ground, did not lose consciousness. Experience lower extremity weakness on the right side as well as right upper extremity weakness. Extensive imaging was performed, was given IV steroids, head CT did not show any evidence of intracranial hemorrhage. Diagnosed with central cord syndrome with incomplete spinal cord injury. Patient was planned for C5-C6 laminectomy on 12/31/2023, was taken to the OR for surgery however signals were lost when the patient was flipped into the prone position therefore surgery was canceled. Signals returned once to return to supine position. As per hospitalist documentation on 01/05/2024, patient has been having heart rates ranging in the 40s to 50s that was noted on the primary care office and she has remained asymptomatic. Heart rate has been in the low to high 40s on telemetry on that day, however patient has been on strict bedrest by neurosurgery. Review of Systems 12 point ROS negative unless mentioned in HPI Physical Exam Vitals and Measurements T: 36.8 C (Oral) TMIN: 36.2 C (Oral) TMAX: 36.8 C (Oral) HR: 41(Monitored) RR: 16 BP: 143/70 SpO2: 97% Weight Dosing Weight: 89.6 kg (12/28/23) Dosing Weight: 89.6 kg (12/28/23) Constitutional: Alert, awake, not in acute distress, c-collar in place Neck - Thyroid not enlarged. 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 Patient reports that she has been told that her heart rate runs in the 40s at the primary care office, reports that on prior hospital admission she was diagnosed with anaphylactic shock and they were worried that her heart rate was in the 40s at the time. Regarding prior cardiac workup, she has had a stress test about 3 years ago at [facility] because she endorses that her heart was racing, this test was reportedly normal. Reports she had an echocardiogram prior to the stress test which was normal BP 140-180s, EKG shows sinus bradycardia with first-degree AV block HR has been int he 50s since admission, now trending in the 40s, patient denies lightheadedness, dizziness, no syncopal episodes. We will obtain echocardiogram and TSH during this admission. Upon hospital discharge, please send her home with a 2-week CardioNet monitor in order to evaluate for tachycardia-bradycardia syndrome as she reports that her heart has been racing in the past and currently she is bradycardiac. We will review echocardiogram once it is completed. Thank you for the consultation Problem List/Past Medical History Ongoing No qualifying data Historical No qualifying data Procedure/Surgical History No qualifying data available. Medications Inpatient bacitracin topical ointment, 1 corbin, Topical, TID dexAMETHasone, 2 mg= 1 tab(s), Oral, TID Dextrose 50% IV Push, 12.5 gram(s)= 25 mL, IV Push, AsDirected, PRN docusate-senna 50 mg-8.6 mg oral tablet, 1 tab(s), Oral, BID Dulcolax Laxative, 10 mg= 2 tab(s), Oral, Once, PRN Dulcolax Laxative, 10 mg= 1 supp, Rectal, qDay, PRN DuoNeb, 3 mL, Inhalation, q2hRT, PRN heparin 5000 units/mL injection, 5000 unit(s)= 1 mL, Subcutaneous, q8h hydrALAZINE, 10 mg= 0.5 mL, IV Push, q4h, PRN Lipitor, 20 mg= 1 tab(s), Oral, qDay LR 1,000 mL, 1000 mL, Intravenous Milk of Magnesia, 30 mL, Oral, qDay, PRN Miralax Powder Packet, 17 gram(s)= 15 mL, Oral, qDay morphine, 4 mg= 1 mL, IV Push, q3h, PRN oxyCODONE 5 mg oral tablet ( IMMEDIATE release ), 5 mg= 1 tab(s), Oral, q4h, PRN oxymetazoline 0.05% nasal spray, 2 spray(s), Nostril, each, Once, PRN pantoprazole, 20 mg= 1 tab(s), Oral, BIDAC Paxil, 20 mg= 1 tab(s), Oral, qDay Tylenol, 1000 mg= 2 tab(s), Oral, TID, PRN Zofran, 4 mg= 2 mL, IV Push, q4h, PRN Home amLODIPine 2.5 mg oral tablet, 2.5 mg= 1 tab(s), Oral, qDay aspirin 81 mg oral delayed release tablet, 81 mg= 1 tab(s), Oral, qDay Lipitor 20 mg oral tablet, 20 mg= 1 tab(s), Oral, qDay Multivitamin, 1 cap(s), Oral, qDay omeprazole 20 mg oral delayed release capsule, 20 mg= 1 cap(s), Oral, qAM Paxil 20 mg oral tablet, 20 mg= 1 tab(s), Oral, qDay Vitamin D3, 50 mcg= 1 tab(s), Oral, qDay Allergies Bee Stings (Bee Stings) Levaquin (rash) penicillin (rash) Social History Smoking Status - 03/23/2012 Patient is non-smoker Immunizations No qualifying data available. Digitally Signed by JENNIFER GUTIERREZ MD on 01/08/2024 03:40 PM [facility] 01-09-2024 Cardiology Progress note Date of Service 01/09/2024 Subjective No acute complaints, HR in the 40s, CT head from [facility] was normal, reviewed Objective Vitals and Measurements T: 36.4 C (Oral) TMIN: 36.4 C (Oral) TMAX: 36.8 C (Oral) HR: 43(Monitored) RR: 18 BP: 102/54 SpO2: 97% Intake and Output 7AM Yesterday to 7AM Today Intake and Output (Last 24 hours) Intake Oral Intake 1450.00 Administration Information 150.00 Output Urinary Catheter Output: 4100.00 Stool Count 6.00 Diaper Count 1.00 Emesis Count 0.00 Total Summary Total Intake 1600.00 Total Output 4100.00 Fluid Balance -2500.00 Physical Exam Constitutional: Alert, awake, not in acute distress, c-collar in place Neck - Thyroid not enlarged. Eyes: general /bilateral - extraocular Movement s normal - Pupils: PERRLA Ears: No discharge, external auditory meatus normal Cardiovascular: JVD not elevated, no lower extremity edema Abdomen: Soft, nontender Skin: color and pigmentation is normal Weight Dosing Weight: 89.6 kg (12/28/23) Dosing Weight: 89.6 kg (12/28/23) Medications Medications (21) Active Scheduled: (10) atorvastatin 20 mg tablet 20 mg 1 tab(s), Oral, qDay bacitracin topical 500 units/g Ointment TUBE 1 corbin, Topical, TID dexamethasone 2 mg tablet 2 mg 1 tab(s), Oral, TID docusate-senna (Senokot S) 50 mg-8.6 mg Tablet 1 tab(s), Oral, BID heparin 5,000 units/mL (1 mL) vial 5,000 unit(s) 1 mL, Subcutaneous, q8h miconazole topical 2% Powder 1 corbin, Topical, BID nystatin susp 100,000 units/mL 5 mL UD 500,000 unit(s) 5 mL, Swish & Swallow, q6h pantoprazole 20 mg EC tablet 20 mg 1 tab(s), Oral, BIDAC paroxetine 20 mg tablet 20 mg 1 tab(s), Oral, qDay polyethylene glycol 3350 - UD packet 17 gram(s) 15 mL, Oral, qDay Continuous: (0) PRN: (11) acetaminophen 500 mg Tablet 1,000 mg 2 tab(s), Oral, TID albuterol - ipratropium 2.5 mg-0.5 mg/3 mL Inhal Jessi UD 3 mL, Inhalation, q2hRT bisacodyl 10 mg Suppository 10 mg 1 supp, Rectal, qDay bisacodyl 5 mg EC tablet 10 mg 2 tab(s), Oral, Once dextrose 50% Solution Disp syringe 50 mL 12.5 gram(s) 25 mL, IV Push, AsDirected hydralazine 20 mg/mL (1mL) vial 10 mg 0.5 mL, IV Push, q4h magnesium hydroxide 8% Suspension 30 mL UD 30 mL, Oral, qDay morphine 4 mg/mL 1mL INJ 4 mg 1 mL, IV Push, q3h ondansetron 2 mg/ 1 mL 2 mL INJ 4 mg 2 mL, IV Push, q4h oxycodone 5 mg tablet (immediate release) 5 mg 1 tab(s), Oral, q4h oxymetazoline nasal 0.05% Hudson 2 spray(s), Nostril, each, Once Lab Results 01/07 15:49 Glucose Level: 109 Sodium Level: 135 L Potassium Level: 4.2 BUN: 30.0 H Creatinine Lvl (s): 0.72 EKG No qualifying data available. 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 Left ventricle: The cavity size is normal. Wall thickness is normal. Systolic function is normal. The estimated ejection fraction is 60-65%. Wall motion is normal; there are no regional wall motion abnormalities. Normal diastolic function. 2. Mitral valve: The annulus is mildly calcified. The leaflets are mildly thickened. Thickening. There is trivial regurgitation. 3. Right ventricle: The RV systolic pressure by Doppler is 24 mm Hg. 4. Pulmonic valve: There is mild regurgitation. 5. Tricuspid valve: There is trivial regurgitation. 6. Right atrium: The estimated right atrial pressure is 3 mm Hg. Cardiology has been consulted for bradycardia. Patient reports that she has been told that her heart rate runs in the 40s at the primary care office, reports that on prior hospital admission she was diagnosed with anaphylactic shock and they were worried that her heart rate was in the 40s at the time. Regarding prior cardiac workup, she has had a stress test about 3 years ago at [facility] because she endorses that her heart was racing, this test was reportedly normal. Reports she had an echocardiogram prior to the stress test which was normal Patient denies lightheadedness, dizziness, no syncopal episodes. ECHO with normal EF. 2 week cardionet monitor on discharge ordered to evaluate for any tachy-lizbeth syndrome. TSH normal. Discussed with surgery team. Patient will need outpatient cardiology followup. We will sign off, thank you for this consultation. Digitally Signed by JENNIFER GUTIERREZ MD on 01/09/2024 04:25 PM [facility] 01-09-2024 Cardiology Progress note Date of Service 01/09/2024 Subjective No acute complaints, HR in the 40s, CT head from [facility] was normal, reviewed Objective Vitals and Measurements T: 36.4 C (Oral) TMIN: 36.4 C (Oral) TMAX: 36.8 C (Oral) HR: 43(Monitored) RR: 18 BP: 102/54 SpO2: 97% Intake and Output 7AM Yesterday to 7AM Today Intake and Output (Last 24 hours) Intake Oral Intake 1450.00 Administration Information 150.00 Output Urinary Catheter Output: 4100.00 Stool Count 6.00 Diaper Count 1.00 Emesis Count 0.00 Total Summary Total Intake 1600.00 Total Output 4100.00 Fluid Balance -2500.00 Physical Exam Constitutional: Alert, awake, not in acute distress, c-collar in place Neck - Thyroid not enlarged. Eyes: general /bilateral - extraocular Movement s normal - Pupils: PERRLA Ears: No discharge, external auditory meatus normal Cardiovascular: JVD not elevated, no lower extremity edema Abdomen: Soft, nontender Skin: color and pigmentation is normal Weight Dosing Weight: 89.6 kg (12/28/23) Dosing Weight: 89.6 kg (12/28/23) Medications Medications (21) Active Scheduled: (10) atorvastatin 20 mg tablet 20 mg 1 tab(s), Oral, qDay bacitracin topical 500 units/g Ointment TUBE 1 corbin, Topical, TID dexamethasone 2 mg tablet 2 mg 1 tab(s), Oral, TID docusate-senna (Senokot S) 50 mg-8.6 mg Tablet 1 tab(s), Oral, BID heparin 5,000 units/mL (1 mL) vial 5,000 unit(s) 1 mL, Subcutaneous, q8h miconazole topical 2% Powder 1 corbin, Topical, BID nystatin susp 100,000 units/mL 5 mL UD 500,000 unit(s) 5 mL, Swish & Swallow, q6h pantoprazole 20 mg EC tablet 20 mg 1 tab(s), Oral, BIDAC paroxetine 20 mg tablet 20 mg 1 tab(s), Oral, qDay polyethylene glycol 3350 - UD packet 17 gram(s) 15 mL, Oral, qDay Continuous: (0) PRN: (11) acetaminophen 500 mg Tablet 1,000 mg 2 tab(s), Oral, TID albuterol - ipratropium 2.5 mg-0.5 mg/3 mL Inhal Jessi UD 3 mL, Inhalation, q2hRT bisacodyl 10 mg Suppository 10 mg 1 supp, Rectal, qDay bisacodyl 5 mg EC tablet 10 mg 2 tab(s), Oral, Once dextrose 50% Solution Disp syringe 50 mL 12.5 gram(s) 25 mL, IV Push, AsDirected hydralazine 20 mg/mL (1mL) vial 10 mg 0.5 mL, IV Push, q4h magnesium hydroxide 8% Suspension 30 mL UD 30 mL, Oral, qDay morphine 4 mg/mL 1mL INJ 4 mg 1 mL, IV Push, q3h ondansetron 2 mg/ 1 mL 2 mL INJ 4 mg 2 mL, IV Push, q4h oxycodone 5 mg tablet (immediate release) 5 mg 1 tab(s), Oral, q4h oxymetazoline nasal 0.05% Hudson 2 spray(s), Nostril, each, Once Lab Results 01/07 15:49 Glucose Level: 109 Sodium Level: 135 L Potassium Level: 4.2 BUN: 30.0 H Creatinine Lvl (s): 0.72 EKG No qualifying data available. 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 Left ventricle: The cavity size is normal. Wall thickness is normal. Systolic function is normal. The estimated ejection fraction is 60-65%. Wall motion is normal; there are no regional wall motion abnormalities. Normal diastolic function. 2. Mitral valve: The annulus is mildly calcified. The leaflets are mildly thickened. Thickening. There is trivial regurgitation. 3. Right ventricle: The RV systolic pressure by Doppler is 24 mm Hg. 4. Pulmonic valve: There is mild regurgitation. 5. Tricuspid valve: There is trivial regurgitation. 6. Right atrium: The estimated right atrial pressure is 3 mm Hg. Cardiology has been consulted for bradycardia. Patient reports that she has been told that her heart rate runs in the 40s at the primary care office, reports that on prior hospital admission she was diagnosed with anaphylactic shock and they were worried that her heart rate was in the 40s at the time. Regarding prior cardiac workup, she has had a stress test about 3 years ago at [facility] because she endorses that her heart was racing, this test was reportedly normal. Reports she had an echocardiogram prior to the stress test which was normal Patient denies lightheadedness, dizziness, no syncopal episodes. ECHO with normal EF. 2 week cardionet monitor on discharge ordered to evaluate for any tachy-lizbeth syndrome. TSH normal. Discussed with surgery team. Patient will need outpatient cardiology followup. We will sign off, thank you for this consultation. 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 Hospital course: This is an 83-year-old female who presented to [facility] on 12/27/2023 after she sustained a fall when she was leaving [place]. She apparently stepped off a curb and fell face first onto the cement. She developed difficulty moving her bilateral upper extremities as well as her right lower extremity. During her evaluation, she had a CT of the head which was negative for any acute intracranial findings. She also had a CT of the facial bones which demonstrated a LeFort type I fracture. The CT of the cervical spine was negative for any acute osseous abnormalities but did demonstrate degenerative changes most significant at C5-6. Due to her difficulty moving her upper extremities and right lower extremity, an MRI of her cervical, thoracic, and lumbar spine were obtained. The MRI of the cervical spine demonstrated severe central canal stenosis and cord deformity at C5-6 with moderate to severe central canal stenosis at C6-7 with increased cord signal at C8 6 likely due to an acute cord contusion. There is also evidence of prevertebral edema at C3-T3. She was placed in a C[place]on collar and loaded with 10 mg of dexamethasone and continued on the dexamethasone 4 mg every 6 hours. She was taken to the operating room on 12/31/2023 for a C5-C6 laminectomy by Dr. Barber. During surgery positioning, signals were lost when she was flipped into the prone position, therefore surgery was aborted and canceled. Signals returned once she was in the supine position. An arterial line has been left in place, to monitor her blood pressure and to keep a MAP greater than 85. Map has been greater than 85 over night. She has been bradycardic in the 40's. She states at home sometimes her HR is in 40's and she is asymptomatic. Cardiology was consulted yesterday. They have ordered an echo and a 2 week monitor to eval for tachycardia-bradycardia syndrome. She has been getting out of bed with nursing and PT. She required the juanito steady to stand. She has been tolerating this well. She has had no increase in paresthesias or pain in her upper extremities or lower extremities. This morning on exam, she is doing well. She states she is definitely improved compared to admission. She still has weakness in her right UE. She can barely grasp with her right hand, but is able to move the 3rd, 4th, and 5th digits. Her right tricep 3/5 and right bicep 4/5 on. Left UE hand grasp, triceps, biceps-strong 5/5. Her left dorsiflexion and plantarflexion is strong. She is able to lift her left leg off the bed without difficulty. Her right leg she has weak knee flexion, but is able to bend her knee much better today compared to the beginning of the week. Patient can barely dorsiflexion on the right and has weak plantarflex. Complains of numbness in her bilateral hands worse on the right than left. She states not worsening numbness or tingling since getting up and trying to mobilize more. She is immobilized in a Cresson collar. She is tolerating a diet well. Rowland cath draining clear yellow urine. +BM several times since admission. Objective Vitals and Measurements T: 36.6 C (Oral) TMIN: 36.5 C (Oral) TMAX: 36.8 C (Oral) HR: 38(Monitored) RR: 18 BP: 156/56 SpO2: 97% Intake and Output 7AM Yesterday to 7AM Today Intake and Output (Last 24 hours) Intake Oral Intake 1450.00 Administration Information 150.00 Output Urinary Catheter Output: 4100.00 Stool Count 6.00 Diaper Count 1.00 Emesis Count 0.00 Total Summary Total Intake 1600.00 Total Output 4100.00 Fluid Balance -2500.00 Physical Exam Weight Dosing Weight: 89.6 kg (12/28/23) Dosing Weight: 89.6 kg (12/28/23) Medications Medications (21) Active Scheduled: (10) atorvastatin 20 mg tablet 20 mg 1 tab(s), Oral, qDay bacitracin topical 500 units/g Ointment TUBE 1 corbin, Topical, TID dexamethasone 2 mg tablet 2 mg 1 tab(s), Oral, TID docusate-senna (Senokot S) 50 mg-8.6 mg Tablet 1 tab(s), Oral, BID heparin 5,000 units/mL (1 mL) vial 5,000 unit(s) 1 mL, Subcutaneous, q8h miconazole topical 2% Powder 1 corbin, Topical, BID nystatin susp 100,000 units/mL 5 mL UD 500,000 unit(s) 5 mL, Swish & Swallow, q6h pantoprazole 20 mg EC tablet 20 mg 1 tab(s), Oral, BIDAC paroxetine 20 mg tablet 20 mg 1 tab(s), Oral, qDay polyethylene glycol 3350 - UD packet 17 gram(s) 15 mL, Oral, qDay Continuous: (0) PRN: (11) acetaminophen 500 mg Tablet 1,000 mg 2 tab(s), Oral, TID albuterol - ipratropium 2.5 mg-0.5 mg/3 mL Inhal Jessi UD 3 mL, Inhalation, q2hRT bisacodyl 10 mg Suppository 10 mg 1 supp, Rectal, qDay bisacodyl 5 mg EC tablet 10 mg 2 tab(s), Oral, Once dextrose 50% Solution Disp syringe 50 mL 12.5 gram(s) 25 mL, IV Push, AsDirected hydralazine 20 mg/mL (1mL) vial 10 mg 0.5 mL, IV Push, q4h magnesium hydroxide 8% Suspension 30 mL UD 30 mL, Oral, qDay morphine 4 mg/mL 1mL INJ 4 mg 1 mL, IV Push, q3h ondansetron 2 mg/ 1 mL 2 mL INJ 4 mg 2 mL, IV Push, q4h oxycodone 5 mg tablet (immediate release) 5 mg 1 tab(s), Oral, q4h oxymetazoline nasal 0.05% Hudson 2 spray(s), Nostril, each, Once Lab Results 01/07 15:49 Glucose Level: 109 Sodium Level: 135 L Potassium Level: 4.2 BUN: 30.0 H Creatinine Lvl (s): 0.72 EKG No qualifying data available. 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 Per Dr. Barber, patient with disc space collapse and disc osteophyte complexes at C5-6 and C6-7. There is also focal disc extrusion at C7 and T1. All of which are directly compressing the ventral spinal cord. -Patient taken to the OR 12/31/2023 for a C5-C6 laminectomy with Dr. Barber. Unfortunately, neuromonitoring signals were lost when the patient was positioned prone, therefore surgery was aborted and canceled. Signals returned once returned to supine. She was transferred to the [address] for close neurological monitoring, with 3:1 nursing care. -Overall, patient seems to be doing well. She worked with physical therapy and also got up to the chair with PT/OT yesterday. Nursing is getting her up to the chair again today with each meal. She can continue slowly mobilize short distances if tolerated well. If she develops any increased numbness or tingling in her upper or lower extremities or weakness, activity should be stopped and she should be placed back in bed. -Aggressive pulmonary toilet with incentive spirometer every hour while awake. -She is on subcu heparin for DVT prophylaxis with SCDs on while in bed. Bradycardia: -HR 35-40 -Patient states at home she believes her HR is in the 40's. -Cardiology consulted. Rehab facility would like her evaluated by cardiology prior to transfer. -Echo and 2 week heart monitor ordered per Cardiology. Oral thrush: -On exam-tongue has white coating and she is complaining of pain in her mouth and her tongue. -Nystatin swish and spit ordered. 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 Hospital course: This is an 83-year-old female who presented to [facility] on 12/27/2023 after she sustained a fall when she was leaving [place]. She apparently stepped off a curb and fell face first onto the cement. She developed difficulty moving her bilateral upper extremities as well as her right lower extremity. During her evaluation, she had a CT of the head which was negative for any acute intracranial findings. She also had a CT of the facial bones which demonstrated a LeFort type I fracture. The CT of the cervical spine was negative for any acute osseous abnormalities but did demonstrate degenerative changes most significant at C5-6. Due to her difficulty moving her upper extremities and right lower extremity, an MRI of her cervical, thoracic, and lumbar spine were obtained. The MRI of the cervical spine demonstrated severe central canal stenosis and cord deformity at C5-6 with moderate to severe central canal stenosis at C6-7 with increased cord signal at C8 6 likely due to an acute cord contusion. There is also evidence of prevertebral edema at C3-T3. She was placed in a Cresson collar and loaded with 10 mg of dexamethasone and continued on the dexamethasone 4 mg every 6 hours. She was taken to the operating room on 12/31/2023 for a C5-C6 laminectomy by Dr. Barber. Duringsurgery positioning, signals were lost when she was flipped into the prone position, therefore surgery was aborted and canceled. Signals returned once she was in the supine position. An arterial line has been left in place, to monitor her blood pressure and to keep a MAP greater than 85. Map has been greater than 85 over night. She has been bradycardic in the 40's. She states at home sometimes her HR is in 40's and she is asymptomatic. She was out of bed yesterday with nursing and PT. She required the juanito steady to stand yesterday. She has been tolerating this well. She has had no increase in paresthesias or pain in her upper extremities or lower extremities. This morning on exam, she is doing well. She states she is definitely improved compared to admission. She still has weakness in her right UE. She can barely grasp with her right hand, but is able to move the 3rd, 4th, and 5th digits. Her right tricep 3/5 and right bicep 4/5 on. Left UE hand grasp, triceps, biceps- strong 5/5. Her left dorsiflexion and plantarflexion is strong. She is able to lift her left leg off the bed without difficulty. Her right leg she has weak knee flexion, but is able tobend her knee much better today compared to the beginning of the week. Patient can barely dorsiflexion on the right and has weak plantarflex. Complains of numbness in her bilateral hands worse on theright than left. She also still has some numbness in the right hip/buttock area. She is immobilizedin a Cresson collar. She is tolerating a diet well. Rowland cath draining clear yellow urine. +BM yesterday. Objective Vitals and Measurements T: 36.8 C (Oral) TMIN: 36.2 C (Oral) TMAX: 36.8 C (Oral) HR: 41(Monitored) RR: 16 BP: 143/70 SpO2: 97% Intake and Output 7AM Yesterday to 7AM Today Intake and Output (Last 24 hours) Intake Oral Intake 780.00 Administration Information 1800.00 Output Urinary Catheter Output: 5150.00 Stool Count 3.00 Total Summary Total Intake 2580.00 Total Output 5150.00 Fluid Balance -2570.00 Physical Exam Weight Dosing Weight: 89.6 kg (12/28/23) Dosing Weight: 89.6 kg (12/28/23) Medications Medications (20) Active Scheduled: (8) atorvastatin 20 mg tablet 20 mg 1 tab(s), Oral, qDay bacitracin topical 500 units/g Ointment TUBE 1 corbin, Topical, TID dexamethasone 2 mg tablet 2 mg 1 tab(s), Oral, TID docusate-senna (Senokot S) 50 mg-8.6 mg Tablet 1 tab(s), Oral, BID heparin 5,000 units/mL (1 mL) vial 5,000 unit(s) 1 mL, Subcutaneous, q8h pantoprazole 20 mg EC tablet 20 mg 1 tab(s), Oral, BIDAC paroxetine 20 mg tablet 20 mg 1 tab(s), Oral, qDay polyethylene glycol 3350 - UD packet 17 gram(s) 15 mL, Oral, qDay Continuous: (1) Lactated Ringers 1,000 mL 1,000 mL, Intravenous, 75 mL/hr PRN: (11) acetaminophen 500 mg Tablet 1,000 mg 2 tab(s), Oral, TID albuterol - ipratropium 2.5 mg-0.5 mg/3 mL Inhal Jessi UD 3 mL, Inhalation, q2hRT bisacodyl 10 mg Suppository 10 mg 1 supp, Rectal, qDay bisacodyl 5 mg EC tablet 10 mg 2 tab(s), Oral, Once dextrose 50% Solution Disp syringe 50 mL 12.5 gram(s) 25 mL, IV Push, AsDirected hydralazine 20 mg/mL (1mL) vial 10 mg 0.5 mL, IV Push, q4h magnesium hydroxide 8% Suspension 30 mL UD 30 mL, Oral, qDay morphine 4 mg/mL 1mL INJ 4 mg 1 mL, IV Push, q3h ondansetron 2 mg/ 1 mL 2 mL INJ 4 mg 2 mL, IV Push, q4h oxycodone 5 mg tablet (immediate release) 5 mg 1 tab(s), Oral, q4h oxymetazoline nasal 0.05% Hudson 2 spray(s), Nostril, each, Once Lab Results No 36 Hour Lab Data EKG No qualifying data available. 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 Per Dr. Barber, patient with disc space collapse anddisc osteophyte complexes at C5-6 and C6-7. There is also focal disc extrusion at C7 and T1. All ofwhich are directly compressing the ventral spinal cord. -Patient taken to the OR 12/31/2023 for a C5-C6 laminectomy with Dr. Barber. Unfortunately, neuromonitoring signals were lost when the patient was positioned prone, therefore surgery was aborted and canceled. Signals returned once returned to supine. She was transferred to the [address] for close neurological monitoring, with 3:1 nursing care. -Overall, patient seems to be doing well. She worked with physical therapy and also got up to the chair with PT/OT yesterday. Nursing is getting her up to the chair again today with each meal. She can start to slowly mobilize short distances if tolerated well. If she develops any increased numbnessor tingling in her upper or lower extremities or weakness, activity should be stopped and she should be placed back in bed. -Aggressive pulmonary toilet with incentive spirometer every hour while awake. -She is on subcu heparin for DVT prophylaxis with SCDs on while in bed. Bradycardia: -HR 35-40 -Patient states at home she believes her HR is in the 40's. -Cardiology consulted. Rehab facility would like her evaluated by cardiology prior to transfer. -Hospitalist following. -EKG will be obtained a couple days ago which was sinus bradycardia.. Please see Dr. Robertson's addendum for further details and recommendations. Anticipated Date of Discharge Anticipate discharge in the next couple of days, depending on cardiology consult. 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 Hospital course: This is an 83-year-old female who presented to [facility] on 12/27/2023 after she sustained a fall when she was [place]. She apparently stepped off a curb and fell face first onto the cement. She developed difficulty moving her bilateral upper extremities as well as her right lower extremity. During her evaluation, she had a CT of the head which was negative for any acute intracranial findings. She also had a CT of the facial bones which demonstrated a LeFort type I fracture. The CT of the cervical spine was negative for any acute osseous abnormalities but did demonstrate degenerative changes most significant at C5-6. Due to her difficulty moving her upper extremities and right lower extremity, an MRI of her cervical, thoracic, and lumbar spine were obtained. The MRI of the cervical spine demonstrated severe central canal stenosis and cord deformity at C5-6 with moderate to severe central canal stenosis at C6-7 with increased cord signal at C8 6 likely due to an acute cord contusion. There is also evidence of prevertebral edema at C3-T3. She was placed in a Cresson collar and loaded with 10 mg of dexamethasone and continued on the dexamethasone 4 mg every 6 hours. She was taken to the operating room on 12/31/2023 for a C5-C6 laminectomy by Dr. Barber. Duringsurgery positioning, signals were lost when she was flipped into the prone position, therefore surgery was aborted and canceled. Signals returned once she was in the supine position. An arterial line has been left in place, to monitor her blood pressure and to keep a MAP greater than 85. Map has been greater than 85 over night. She has been bradycardic in the 40's. She states at home sometimes her HR is in 40's and she is asymptomatic. She was out of bed yesterday with nursing and PT. She required the juanito steady to stand yesterday. She has been tolerating this well. She has had no increase in paresthesias or pain in her upper extremities or lower extremities. This morning on exam, she is doing well. She states she is definitely improved compared to admission. She still has weakness in her right UE. She can barely grasp with her right hand, but is able to move the 3rd, 4th, and 5th digits. Her right tricep 3/5 and right bicep 4/5 on. Left UE hand grasp, triceps, biceps- strong 5/5. Her left dorsiflexion and plantarflexion is strong. She is able to lift her left leg off the bed without difficulty. Her right leg she has weak knee flexion, but is able tobend her knee much better today compared to the beginning of the week. Patient can barely dorsiflexion on the right and has weak plantarflex. Complains of numbness in her bilateral hands worse on theright than left. She also still has some numbness in the right hip/buttock area. She is immobilizedin a Cresson collar. She is tolerating a diet well. Rowland cath draining clear yellow urine. +BM yesterday. Objective Vitals and Measurements T: 36.8 C (Oral) TMIN: 36.2 C (Oral) TMAX: 36.8 C (Oral) HR: 41(Monitored) RR: 16 BP: 143/70 SpO2: 97% Intake and Output 7AM Yesterday to 7AM Today Intake and Output (Last 24 hours) Intake Oral Intake 780.00 Administration Information 1800.00 Output Urinary Catheter Output: 5150.00 Stool Count 3.00 Total Summary Total Intake 2580.00 Total Output 5150.00 Fluid Balance -2570.00 Physical Exam Weight Dosing Weight: 89.6 kg (12/28/23) Dosing Weight: 89.6 kg (12/28/23) Medications Medications (20) Active Scheduled: (8) atorvastatin 20 mg tablet 20 mg 1 tab(s), Oral, qDay bacitracin topical 500 units/g Ointment TUBE 1 corbin, Topical, TID dexamethasone 2 mg tablet 2 mg 1 tab(s), Oral, TID docusate-senna (Senokot S) 50 mg-8.6 mg Tablet 1 tab(s), Oral, BID heparin 5,000 units/mL (1 mL) vial 5,000 unit(s) 1 mL, Subcutaneous, q8h pantoprazole 20 mg EC tablet 20 mg 1 tab(s), Oral, BIDAC paroxetine 20 mg tablet 20 mg 1 tab(s), Oral, qDay polyethylene glycol 3350 - UD packet 17 gram(s) 15 mL, Oral, qDay Continuous: (1) Lactated Ringers 1,000 mL 1,000 mL, Intravenous, 75 mL/hr PRN: (11) acetaminophen 500 mg Tablet 1,000 mg 2 tab(s), Oral, TID albuterol - ipratropium 2.5 mg-0.5 mg/3 mL Inhal Jessi UD 3 mL, Inhalation, q2hRT bisacodyl 10 mg Suppository 10 mg 1 supp, Rectal, qDay bisacodyl 5 mg EC tablet 10 mg 2 tab(s), Oral, Once dextrose 50% Solution Disp syringe 50 mL 12.5 gram(s) 25 mL, IV Push, AsDirected hydralazine 20 mg/mL (1mL) vial 10 mg 0.5 mL, IV Push, q4h magnesium hydroxide 8% Suspension 30 mL UD 30 mL, Oral, qDay morphine 4 mg/mL 1mL INJ 4 mg 1 mL, IV Push, q3h ondansetron 2 mg/ 1 mL 2 mL INJ 4 mg 2 mL, IV Push, q4h oxycodone 5 mg tablet (immediate release) 5 mg 1 tab(s), Oral, q4h oxymetazoline nasal 0.05% Hudson 2 spray(s), Nostril, each, Once Lab Results No 36 Hour Lab Data EKG No qualifying data available. 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 Per Dr. Barber, patient with disc space collapse anddisc osteophyte complexes at C5-6 and C6-7. There is also focal disc extrusion at C7 and T1. All ofwhich are directly compressing the ventral spinal cord. -Patient taken to the OR 12/31/2023 for a C5-C6 laminectomy with Dr. Barber. Unfortunately, neuromonitoring signals were lost when the patient was positioned prone, therefore surgery was aborted and canceled. Signals returned once returned to supine. She was transferred to the [address] for close neurological monitoring, with 3:1 nursing care. -Overall, patient seems to be doing well. She worked with physical therapy and also got up to the chair with PT/OT yesterday. Nursing is getting her up to the chair again today with each meal. She can start to slowly mobilize short distances if tolerated well. If she develops any increased numbnessor tingling in her upper or lower extremities or weakness, activity should be stopped and she should be placed back in bed. -Aggressive pulmonary toilet with incentive spirometer every hour while awake. -She is on subcu heparin for DVT prophylaxis with SCDs on while in bed. Bradycardia: -HR 35-40 -Patient states at home she believes her HR is in the 40's. -Cardiology consulted. Rehab facility would like her evaluated by cardiology prior to transfer. -Hospitalist following. -EKG will be obtained a couple days ago which was sinus bradycardia.. Please see Dr. Robertson's addendum for further details and recommendations. Anticipated Date of Discharge Anticipate discharge in the next couple of days, depending on cardiology consult. Time Spent 15 min Digitally Signed by CARLOS MAGDALENO on 01/08/2024 11:20 AM [id number] Cardiology Consult note Date of Service 01/08/2024 Reason for Consultation Sinus bradycardia Referring Physician Neurosurgery team History of Present Illness Patient is an 83-year-old female with medical history significant for sleep apnea with CPAP, hypertension, dyslipidemia, who presented from [facility] on 12/26 after mechanical fall when she lost herfooting going down the curb leaving [employer] study on Friday night. Fell face first onto the ground,did not lose consciousness. Experience lower extremity weakness on the right side as well as right upper extremity weakness. Extensive imaging was performed, was given IV steroids, head CT did not show any evidence of intracranial hemorrhage. Diagnosed with central cord syndrome with incomplete spinal cord injury. Patient was planned for C5-C6 laminectomy on 12/31/2023, was taken to the OR for surgery however signals were lost when the patient was flipped into the prone position therefore surgery was canceled. Signals returned once to return to supine position. As per hospitalist documentation on 01/05/2024, patient has been having heart rates ranging in the 40s to 50s that was noted on the primary care office and she has remained asymptomatic. Heart rate hasbeen in the low to high 40s on telemetry on that day, however patient has been on strict bedrest by neurosurgery. Review of Systems 12 point ROS negative unless mentioned in HPI Physical Exam Vitals and Measurements T: 36.8 C (Oral) TMIN: 36.2 C (Oral) TMAX: 36.8 C (Oral) HR: 41(Monitored) RR: 16 BP: 143/70 SpO2: 97% Weight Dosing Weight: 89.6 kg (12/28/23) Dosing Weight: 89.6 kg (12/28/23) Constitutional: Alert, awake, not in acute distress, c-collar in place Neck - Thyroid not enlarged. 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 Patient reports that she has been told that her heart rate runs in the 40s at the primary care office, reports that on prior hospital admission she was diagnosed with anaphylactic shock and they were worried that her heart rate was in the 40s at the time. Regarding prior cardiac workup, she has had a stress test about 3 years ago at [facility] because she endorses that her heart was racing, this test was reportedly normal. Reports she had an echocardiogram prior to the stress test which was normal BP 140-180s, EKG shows sinus bradycardia with first-degree AV block HR has been int he 50s since admission, now trending in the 40s, patient denies lightheadedness, dizziness, no syncopal episodes. We will obtain echocardiogram and TSH during this admission. Upon hospital discharge, please send her home with a 2-week CardioNet monitor in order to evaluate for tachycardia-bradycardia syndrome asshe reports that her heart has been racing in the past and currently she is bradycardiac. We will review echocardiogram once it is completed. Thank you for the consultation Problem List/Past Medical History Ongoing No qualifying data Historical No qualifying data Procedure/Surgical History No qualifying data available. Medications Inpatient bacitracin topical ointment, 1 corbin, Topical, TID dexAMETHasone, 2 mg= 1 tab(s), Oral, TID Dextrose 50% IV Push, 12.5 gram(s)= 25 mL, IV Push, AsDirected, PRN docusate-senna 50 mg-8.6 mg oral tablet, 1 tab(s), Oral, BID Dulcolax Laxative, 10 mg= 2 tab(s), Oral, Once, PRN Dulcolax Laxative, 10 mg= 1 supp, Rectal, qDay, PRN DuoNeb, 3 mL, Inhalation, q2hRT, PRN heparin 5000 units/mL injection, 5000 unit(s)= 1 mL, Subcutaneous, q8h hydrALAZINE, 10 mg= 0.5 mL, IV Push, q4h, PRN Lipitor, 20 mg= 1 tab(s), Oral, qDay LR 1,000 mL, 1000 mL, Intravenous Milk of Magnesia, 30 mL, Oral, qDay, PRN Miralax Powder Packet, 17 gram(s)= 15 mL, Oral, qDay morphine, 4 mg= 1 mL, IV Push, q3h, PRN oxyCODONE 5 mg oral tablet ( IMMEDIATE release ), 5 mg= 1 tab(s), Oral, q4h, PRN oxymetazoline 0.05% nasal spray, 2 spray(s), Nostril, each, Once, PRN pantoprazole, 20 mg= 1 tab(s), Oral, BIDAC Paxil, 20 mg= 1 tab(s), Oral, qDay Tylenol, 1000 mg= 2 tab(s), Oral, TID, PRN Zofran, 4 mg= 2 mL, IV Push, q4h, PRN Home amLODIPine 2.5 mg oral tablet, 2.5 mg= 1 tab(s), Oral, qDay aspirin 81 mg oral delayed release tablet, 81 mg= 1 tab(s), Oral, qDay Lipitor 20 mg oral tablet, 20 mg= 1 tab(s), Oral, qDay Multivitamin, 1 cap(s), Oral, qDay omeprazole 20 mg oral delayed release capsule, 20 mg= 1 cap(s), Oral, qAM Paxil 20 mg oral tablet, 20 mg= 1 tab(s), Oral, qDay Vitamin D3, 50 mcg= 1 tab(s), Oral, qDay Allergies Bee Stings (Bee Stings) Levaquin (rash) penicillin (rash) Social History Smoking Status - 03/23/2012 Patient is non-smoker Immunizations No qualifying data available. 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 83-year-old female who presented to [facility] on 12/27/2023 after she sustained a fall when she stepped off a curb and fell face first onto cement then developed difficulty moving her bilateral upper extremities as well as her right lower extremity. CT of the head negative. CT of the facial bones demonstrated a LeFort type I fracture. CT of the cervical spine was negative for any acute osseous abnormalities but demonstrated degenerative changes most significant at C5-6. MRI of cervical, thoracic, and lumbar spine then obtained. MRI of the cervical spine found to demonstrate severe central canal stenosis and cord deformity at C5-6 with moderate to severe central canal stenosis at C6-7 with increased cord signal at C6 likely due to an acute cord contusion. Also withevidence of prevertebral edema at C3-T3. She was placed in a Cresson collar and loaded with 10 mg of dexamethasone; continued on scheduled dexamethasone. Taken to the operating room on 12/31/2023 for a C5-C6 laminectomy by Dr. Barber.. However, surgery was aborted and not able to be performed as neuromonitoring signals were lost when she was attempted to be positioned prone for surgery. Signals returned once she was in supine position. BP and MAP were monitored closely, and able to be well maintained. Arterial line eventually discontinued 01/04. Has had asymptomatic bradycardic; Hospitalist involved and monitored; EKG performed. Reportedly, at home sometimes HR in 40s. After attempted surgery, patient kept on bedrest and HOB was slowly increased 5- 10 degrees daily. Patient tolerated this well and did not experience any worsened symptoms or changes in exam. Able to be elevated up max bed elevation of 63 degrees, without complications. Remains in Cresson hard collar, and is tolerating use of collar. Has been compliant with remaining inhard collar at all times. Patient has progressively and gradually improved since initial presentation. She remains weaker on the right compared to left; and most predominantly in the RLE which remains hypertonic, cannot bend at the knee and is receiving passive ROM. She can wiggle toes, and very slightly flex the right ankle. Hand grasp on the right is fairly weak, but can mildly flex fingers in attempt to make fist. Unabl e to close the right hand. Right tricep strength is improving, 4/5. Right bicep intact, 5/5. Left upper and lower extremity strength fairly strong. Reports numbness in right fingers, left hand, and bilateral thighs, which is not new. Objective Vitals and Measurements T: 36.6 C (Oral) TMIN: 36.4 C (Oral) TMAX: 36.6 C (Oral) HR: 42(Monitored) RR: 18 BP: 126/51 SpO2: 96% Intake and Output 7AM Yesterday to 7AM Today Intake and Output (Last 24 hours) Intake Administration Information 1800.00 Oral Intake 930.00 Output Urinary Catheter Output: 4400.00 Stool Count 3.00 Emesis Count 0.00 Total Summary Total Intake 2730.00 Total Output 4400.00 Fluid Balance -1670.00 Physical Exam Weight Dosing Weight: 89.6 kg (12/28/23) Dosing Weight: 89.6 kg (12/28/23) Medications Medications (20) Active Scheduled: (8) atorvastatin 20 mg tablet 20 mg 1 tab(s), Oral, qDay bacitracin topical 500 units/g Ointment TUBE 1 corbin, Topical, TID dexamethasone 2 mg tablet 2 mg 1 tab(s), Oral, TID docusate-senna (Senokot S) 50 mg-8.6 mg Tablet 1 tab(s), Oral, BID heparin 5,000 units/mL (1 mL) vial 5,000 unit(s) 1 mL, Subcutaneous, q8h pantoprazole 20 mg EC tablet 20 mg 1 tab(s), Oral, BIDAC paroxetine 20 mg tablet 20 mg 1 tab(s), Oral, qDay polyethylene glycol 3350 - UD packet 17 gram(s) 15 mL, Oral, qDay Continuous: (1) Lactated Ringers 1,000 mL 1,000 mL, Intravenous, 75 mL/hr PRN: (11) acetaminophen 500 mg Tablet 1,000 mg 2 tab(s), Oral, TID albuterol - ipratropium 2.5 mg-0.5 mg/3 mL Inhal Jessi UD 3 mL, Inhalation, q2hRT bisacodyl 10 mg Suppository 10 mg 1 supp, Rectal, qDay bisacodyl 5 mg EC tablet 10 mg 2 tab(s), Oral, Once dextrose 50% Solution Disp syringe 50 mL 12.5 gram(s) 25 mL, IV Push, AsDirected hydralazine 20 mg/mL (1mL) vial 10 mg 0.5 mL, IV Push, q4h magnesium hydroxide 8% Suspension 30 mL UD 30 mL, Oral, qDay morphine 4 mg/mL 1mL INJ 4 mg 1 mL, IV Push, q3h ondansetron 2 mg/ 1 mL 2 mL INJ 4 mg 2 mL, IV Push, q4h oxycodone 5 mg tablet (immediate release) 5 mg 1 tab(s), Oral, q4h oxymetazoline nasal 0.05% Hudson 2 spray(s), Nostril, each, Once Lab Results No 36 Hour Lab Data EKG EKG - Completed -- 01/05/24 8:41:00 EDT Assessment/Plan 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 Has not had any worsening pain, weakness or paresthesias. -HOB has been challenged up to max elevation, 63 degrees and patient tolerated well with no new complaints or changes in exam. -She was cleared to dangle at the bedside 01/05 by PT while cautiously monitoring her clinical exam and symptoms. She did very well with this and was then transitioned OOB to a chair using a SaraSteady. -Patient may continue to be assisted OOB to the chair. Continue to monitor her response. If she hasany change in exam/symptoms she is to be laid back in bed, and NS to be notified. -Hopeful surgery may be able to be avoided if patient continues to progress and do well. -Dexamethasone will be adjusted today to 2mg TID x48 hrs and will continue to be weaned over the next 2 weeks. -Continues passive range of motion every 4 hours. RLE remains hypertonic. -Aggressive pulmonary toilet with incentive spirometer every hour while awake. -Subcu heparin for DVT prophylaxis and SCDs to B/L LE while in bed. -Vitals reviewed; stable. Bradycardia -Patient remains asymptomatic, denies dizziness/lightheadedness. -Reportedly, at home she believes her HR also is in the 40's. -Hospitalist following and are monitoring. -EKG obtained. Plan of care to be further discussed with Dr. Barber, additional recommendations or adjustments to the plan may then be made. Digitally Signed by LILIAM SANTILLAN on 01/08/2024 09:12 AM [id number] Note Subjective: Patient seen for medical management patient was examined and evaluated today, patient denies chest pain, no shortness of breath, no cough, no fever or chills, no abdominal pain, no nausea or vomiting, no headache, tolerating po well, bowel movement is normal, she is up in the chair, she stated that she feels Vitals Signs(Last 24 hrs)__Last Charted Minimum Maximum Temp36.6(JAN 06 10:15)36.6(JAN 06 10:15)36.6(JAN 05 14:09) Heart RateL 43(JAN 06 10:15)L 39(JAN 06 02:00)L 48(JAN 05 14:42) UDB232(JAN 06 10:15)110(JAN 05 18:00)H 173(JAN 06 08:07) DBPL 51(JAN 06 10:15)C 45(JAN 05 14:42)66(JAN 06 08:07) Physical examination: HEENT, multiple bruises to the face, pupils are equal, no pallor Neck supple no JVD Lungs clear to auscultation bilaterally, no wheezes, no rhonchi, no accessory muscle use Heart S1-S2 regular, bradycardic Abdomen soft nontender nondistended bowel sounds are present all 4 quadrants Lower extremities show no edema, no cyanosis, pulses palpable +2 bilaterally Skin showed no rash Neurological examination patient is awake alert and oriented 3, cranial nerves are grossly intact, no focal neurological defect could be appreciated Assessment and plan: 1. Asymptomatic sinus bradycardia, chronic. 2. Mechanical fall resulting in polytrauma. 3. Right-sided LeFort type I and nasal fractures 4. Cervical spinal cord injury severe C5-C6 and C6 and C7, with a C6 cord contusion, severe centralcanal stenosis, with the cord r deformity 5. Anemia chronic stable 6. Mild thrombocytopenia. 7. Hypertension. 8. Obstructive sleep apnea on CPAP. 9. Hyperlipidemia. 10. Anxiety. 11. Insomnia Plan: 1. Patient's platelet count remained stable, 2. Patient remains asymptomatic regarding her bradycardia, will continue to monitor. 3. Rest of the vital signs are satisfactory. 4. Will continue to monitor patient clinically as well as her labs. Patient understood her plan of care all questions were answered, all concerns were addressed, I diddiscuss the case with the neurosurgery team, will sign off, please call for any questions Labs: No qualifying data available.No qualifying data available.Medications (20) Active Scheduled: (8) atorvastatin 20 mg tablet 20 mg 1 tab(s), Oral, qDay bacitracin topical 500 units/g Ointment TUBE 1 corbin, Topical, TID dexamethasone 2 mg tablet 2 mg 1 tab(s), Oral, TID docusate-senna (Senokot S) 50 mg-8.6 mg Tablet 1 tab(s), Oral, BID heparin 5,000 units/mL (1 mL) vial 5,000 unit(s) 1 mL, Subcutaneous, q8h pantoprazole 20 mg EC tablet 20 mg 1 tab(s), Oral, BIDAC paroxetine 20 mg tablet 20 mg 1 tab(s), Oral, qDay polyethylene glycol 3350 - UD packet 17 gram(s) 15 mL, Oral, qDay Continuous: (1) Lactated Ringers 1,000 mL 1,000 mL, Intravenous, 75 mL/hr PRN: (11) acetaminophen 500 mg Tablet 1,000 mg 2 tab(s), Oral, TID albuterol - ipratropium 2.5 mg-0.5 mg/3 mL Inhal Jessi UD 3 mL, Inhalation, q2hRT bisacodyl 10 mg Suppository 10 mg 1 supp, Rectal, qDay bisacodyl 5 mg EC tablet 10 mg 2 tab(s), Oral, Once dextrose 50% Solution Disp syringe 50 mL 12.5 gram(s) 25 mL, IV Push, AsDirected hydralazine 20 mg/mL (1mL) vial 10 mg 0.5 mL, IV Push, q4h magnesium hydroxide 8% Suspension 30 mL UD 30 mL, Oral, qDay morphine 4 mg/mL 1mL INJ 4 mg 1 mL, IV Push, q3h ondansetron 2 mg/ 1 mL 2 mL INJ 4 mg 2 mL, IV Push, q4h oxycodone 5 mg tablet (immediate release) 5 mg 1 tab(s), Oral, q4h oxymetazoline nasal 0.05% Hudson 2 spray(s), Nostril, each, Once Signature: Fay Grissom MD Digitally Signed by FAY GRISSOM MD on 01/07/2024 12:19 PM [id number] Note Date of Service 01/06/[address] Robertson, who is providing coverage for Dr. 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 83-year-old female who presented to [facility] on 12/27/2023 after she sustained a fall when she stepped off a curb and fell face first onto cement. Immediately developed difficulty moving her bilateral upper extremities as well as her right lower extremity. CT of the head negative. CT of the facial bones demonstrated a LeFort type I fracture. CT of the cervical spine was negative for any acute osseous abnormalities but demonstrated degenerative changes most significant at C5-6. MRI of cervical, thoracic, and lumbar spine then obtained. MRI of the cervical spine demonstrated severe central canal stenosis and cord deformity at C5-6 with moderate to severe central canal stenosis at C6-7 with increased cord signal at C8 6 likely due to an acute cord contusion. Also evidence of prevertebral edema at C3-T3. She was placed in a [place] collar and loaded with 10 mg of dexamethasone and continued scheduled dexamethasone; this is currently at 4mg TID. Taken to the operating room on 12/31/2023 for a C5-C6 laminectomy by Dr. Barber. During surgerypositioning, signals were lost when she was flipped into prone position, therefore surgery was aborted. Signals returned once she was in supine position. Arterial line discontinued yesterday. Has had asymptomatic bradycardic; Hospitalist following. States at home sometimes HR is in 40's. Since attempted surgery, HOB has been slowly increased 5-10 degrees daily. She has been tolerating this well and hasn't experienced any increase in paresthesias or pain in her extremities. She is up to 60 degrees currently. Remains in [place] hard collar. Patient is much better compared to initially presentation. Even from my last personal exam of her 2days ago, she has continued to improve. Still is weaker on the right compared to left; and most predominantly in the RLE which remains rigid and she is unable to bend at the knee. However, this morning she is able to slightly flex at the ankle, which she couldn't do at all 2 days ago. Her hand grasp on the right is fairly weak, but can mildly flex with her 4th and 5th digit. Right tricep strength3/5 and right bicep 4/5 Left UE strength throughout is strong 5/5. Left dorsiflexion and plantarflexion, knee flexion and hip flexor is strong. Reports numbness in right fingers, left hand, and bilateral thighs, which is not new. Objective Vitals and Measurements T: 36.4 C (Oral) TMIN: 36.4 C (Oral) TMAX: 37.0 C (Oral) HR: 48(Monitored) RR: 20 BP: 112/45 SpO2: 95% Intake and Output 7AM Yesterday to 7AM Today Intake and Output (Last 24 hours) Intake Oral Intake 500.00 Administration Information 1800.00 Output Urinary Catheter Output: 3250.00 Stool Count 6.00 Emesis Count 0.00 Total Summary Total Intake 2300.00 Total Output 3250.00 Fluid Balance -950.00 Physical Exam See above. Patient remains in good spirits. She is very pleasant, and cooperates with exam. Provides fair/deecnt effort. Facial edema and ecchymosis is improving and fading. Bilateral head clamp cranial puncture sites assessed- no active bleeding or drainage; chris intact. Regular heart rhythm; bradycardic. Denies dizziness/lightheadedness. Lungs clear bilaterally. Respirations unlabored and even. I/S at bedside; encouraged use. Abdomen is round and soft. +flatus. +Bowel sounds throughout. Indwelling Rowland catheter intact, draining clear yellow urine to gravity. Weight Dosing Weight: 89.6 kg (12/28/23) Dosing Weight: 89.6 kg (12/28/23) Medications Medications (20) Active Scheduled: (8) atorvastatin 20 mg tablet 20 mg 1 tab(s), Oral, qDay bacitracin topical 500 units/g Ointment TUBE 1 corbin, Topical, TID dexamethasone 4 mg tablet 4 mg 1 tab(s), Oral, TID docusate-senna (Senokot S) 50 mg-8.6 mg Tablet 1 tab(s), Oral, BID heparin 5,000 units/mL (1 mL) vial 5,000 unit(s) 1 mL, Subcutaneous, q8h pantoprazole 20 mg EC tablet 20 mg 1 tab(s), Oral, BIDAC paroxetine 20 mg tablet 20 mg 1 tab(s), Oral, qDay polyethylene glycol 3350 - UD packet 17 gram(s) 15 mL, Oral, qDay Continuous: (1) Lactated Ringers 1,000 mL 1,000 mL, Intravenous, 75 mL/hr PRN: (11) acetaminophen 500 mg Tablet 1,000 mg 2 tab(s), Oral, TID albuterol - ipratropium 2.5 mg-0.5 mg/3 mL Inhal Jessi UD 3 mL, Inhalation, q2hRT bisacodyl 10 mg Suppository 10 mg 1 supp, Rectal, qDay bisacodyl 5 mg EC tablet 10 mg 2 tab(s), Oral, Once dextrose 50% Solution Disp syringe 50 mL 12.5 gram(s) 25 mL, IV Push, AsDirected hydralazine 20 mg/mL (1mL) vial 10 mg 0.5 mL, IV Push, q4h magnesium hydroxide 8% Suspension 30 mL UD 30 mL, Oral, qDay morphine 4 mg/mL 1mL INJ 4 mg 1 mL, IV Push, q3h ondansetron 2 mg/ 1 mL 2 mL INJ 4 mg 2 mL, IV Push, q4h oxycodone 5 mg tablet (immediate release) 5 mg 1 tab(s), Oral, q4h oxymetazoline nasal 0.05% Hudson 2 spray(s), Nostril, each, Once Lab Results No 36 Hour Lab Data EKG No qualifying data available. 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 She denies any worsening weakness or paresthesias, and states she can tell she is getting better. -HOB has been challenged up to 60 degrees; max elevation is 63 degrees, which she was set at this morning, and tolerated well with no new complaints or changes in exam. -Discussed plan of care with Dr. Barber who provides clearance for patient to be dangled at the bedside today by PT while cautiously monitoring her clinical exam and symptoms. Plan to proceed with transition OOB to a chair if she tolerates dangling. No ambulation today, though. -Dexamethasone adjusted to 4mg TID yesterday. Will remain at this dose x 48hrs, then reduce to 2mg TID x48 hrs and will continue to be weaned over the next 2 weeks. -Continues passive range of motion every 4 hours. -Aggressive pulmonary toilet with incentive spirometer every hour while awake. -On subcu heparin for DVT prophylaxis and SCDs to B/L LE while in bed. -Vitals reviewed; SBP ranging 120-160s. HR 39-40s overnight. Bradycardia -HR overnight 39-40s; patient denies dizziness/lightheadedness. -Reportedly, at home she believes her HR also is in the 40's. -Hospitalist following. -EKG obtained. Please see Dr. Robertson's addendum for further details and recommendations. Digitally Signed by LILIAM SANTILLAN on 01/06/2024 07:06 PM [facility] [id number] Note Date of Service 01/06/[address] Robertson, who is providing coverage for Dr. 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 83-year-old female who presented to [facility] on 12/27/2023 after she sustained a fall when she stepped off a curb and fell face first onto cement. Immediately developed difficulty moving her bilateral upper extremities as well as her right lower extremity. CT of the head negative. CT of the facial bones demonstrated a LeFort type I fracture. CT of the cervical spine was negative for any acute osseous abnormalities but demonstrated degenerative changes most significant at C5-6. MRI of cervical, thoracic, and lumbar spine then obtained. MRI of the cervical spine demonstrated severe central canal stenosis and cord deformity at C5-6 with moderate to severe central canal stenosis at C6-7 with increased cord signal at C8 6 likely due to an acute cord contusion. Also evidence of prevertebral edema at C3-T3. She was placed in a [place]on collar and loaded with 10 mg of dexamethasone and continued scheduled dexamethasone; this is currently at 4mg TID. Taken to the operating room on 12/31/2023 for a C5-C6 laminectomy by Dr. Barber. During surgerypositioning, signals were lost when she was flipped into prone position, therefore surgery was aborted. Signals returned once she was in supine position. Arterial line discontinued yesterday. Has had asymptomatic bradycardic; Hospitalist following. States at home sometimes HR is in 40's. Since attempted surgery, HOB has been slowly increased 5-10 degrees daily. She has been tolerating this well and hasn't experienced any increase in paresthesias or pain in her extremities. She is up to 60 degrees currently. Remains in [place] hard collar. Patient is much better compared to initially presentation. Even from my last personal exam of her 2days ago, she has continued to improve. Still is weaker on the right compared to left; and most predominantly in the RLE which remains rigid and she is unable to bend at the knee. However, this morning she is able to slightly flex at the ankle, which she couldn't do at all 2 days ago. Her hand grasp on the right is fairly weak, but can mildly flex with her 4th and 5th digit. Right tricep strength3/5 and right bicep 4/5 Left UE strength throughout is strong 5/5. Left dorsiflexion and plantarflexion, knee flexion and hip flexor is strong. Reports numbness in right fingers, left hand, and bilateral thighs, which is not new. Objective Vitals and Measurements T: 36.4 C (Oral) TMIN: 36.4 C (Oral) TMAX: 37.0 C (Oral) HR: 48(Monitored) RR: 20 BP: 112/45 SpO2:95% Intake and Output 7AM Yesterday to 7AM Today Intake and Output (Last 24 hours) Intake Oral Intake 500.00 Administration Information 1800.00 Output Urinary Catheter Output: 3250.00 Stool Count 6.00 Emesis Count 0.00 Total Summary Total Intake 2300.00 Total Output 3250.00 Fluid Balance -950.00 Physical Exam See above. Patient remains in good spirits. She is very pleasant, and cooperates with exam. Provides fair/deecnt effort. Facial edema and ecchymosis is improving and fading. Bilateral head clamp cranial puncture sites assessed- no active bleeding or drainage; chris intact. Regular heart rhythm; bradycardic. Denies dizziness/lightheadedness. Lungs clear bilaterally. Respirations unlabored and even. I/S at bedside; encouraged use. Abdomen is round and soft. +flatus. +Bowel sounds throughout. Indwelling Rowland catheter intact, draining clear yellow urine to gravity. Weight Dosing Weight: 89.6 kg (12/28/23) Dosing Weight: 89.6 kg (12/28/23) Medications Medications (20) Active Scheduled: (8) atorvastatin 20 mg tablet 20 mg 1 tab(s), Oral, qDay bacitracin topical 500 units/g Ointment TUBE 1 corbin, Topical, TID dexamethasone 4 mg tablet 4 mg 1 tab(s), Oral, TID docusate-senna (Senokot S) 50 mg-8.6 mg Tablet 1 tab(s), Oral, BID heparin 5,000 units/mL (1 mL) vial 5,000 unit(s) 1 mL, Subcutaneous, q8h pantoprazole 20 mg EC tablet 20 mg 1 tab(s), Oral, BIDAC paroxetine 20 mg tablet 20 mg 1 tab(s), Oral, qDay polyethylene glycol 3350 - UD packet 17 gram(s) 15 mL, Oral, qDay Continuous: (1) Lactated Ringers 1,000 mL 1,000 mL, Intravenous, 75 mL/hr PRN: (11) acetaminophen 500 mg Tablet 1,000 mg 2 tab(s), Oral, TID albuterol - ipratropium 2.5 mg-0.5 mg/3 mL Inhal Jessi UD 3 mL, Inhalation, q2hRT bisacodyl 10 mg Suppository 10 mg 1 supp, Rectal, qDay bisacodyl 5 mg EC tablet 10 mg 2 tab(s), Oral, Once dextrose 50% Solution Disp syringe 50 mL 12.5 gram(s) 25 mL, IV Push, AsDirected hydralazine 20 mg/mL (1mL) vial 10 mg 0.5 mL, IV Push, q4h magnesium hydroxide 8% Suspension 30 mL UD 30 mL, Oral, qDay morphine 4 mg/mL 1mL INJ 4 mg 1 mL, IV Push, q3h ondansetron 2 mg/ 1 mL 2 mL INJ 4 mg 2 mL, IV Push, q4h oxycodone 5 mg tablet (immediate release) 5 mg 1 tab(s), Oral, q4h oxymetazoline nasal 0.05% Hudson 2 spray(s), Nostril, each, Once Lab Results No 36 Hour Lab Data EKG No qualifying data available. 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 She denies any worsening weakness or paresthesias, and states she can tell she is getting better. -HOB has been challenged up to 60 degrees; max elevation is 63 degrees, which she was set at this morning, and tolerated well with no new complaints or changes in exam. -Discussed plan of care with Dr. Barber who provides clearance for patient to be dangled at the bedside today by PT while cautiously monitoring her clinical exam and symptoms. Plan to proceed with transition OOB to a chair if she tolerates dangling. No ambulation today, though. -Dexamethasone adjusted to 4mg TID yesterday. Will remain at this dose x 48hrs, then reduce to 2mg TID x48 hrs and will continue to be weaned over the next 2 weeks. -Continues passive range of motion every 4 hours. -Aggressive pulmonary toilet with incentive spirometer every hour while awake. -On subcu heparin for DVT prophylaxis and SCDs to B/L LE while in bed. -Vitals reviewed; SBP ranging 120-160s. HR 39-40s overnight. Bradycardia -HR overnight 39-40s; patient denies dizziness/lightheadedness. -Reportedly, at home she believes her HR also is in the 40's. -Hospitalist following. -EKG obtained. Please see Dr. Robertson's addendum for further details and recommendations. Digitally Signed by LILIAM SANTILLAN on 01/06/2024 07:06 PM [facility] [id number] Note Subjective: Patient seen for medical management patient was examined and evaluated today, patient denies chest pain, no shortness of breath, no cough, no fever or chills, no abdominal pain, no nausea or vomiting, no headache, tolerating po well, bowel movement is normal, she feels weak tired and fatigue Vitals Signs(Last 24 hrs)__Last Charted Minimum Maximum Temp36.4(JAN 05 06:01)36.4(JAN 05 06:)37.0(JAN 04 23:34) Heart RateL 39(JAN 05 06:)L 38(JAN 04 23:34)75(JAN 04 19:22) SBPH 161(JAN 05 06:01)113(JAN 04 13:00)H 165(JAN 04 08:09) DBP67(JAN 05 06:)C 41(JAN 04 13:00)C 107(JAN 04 13:00) Physical examination: HEENT, multiple bruises to the face, pupils are equal, no pallor Neck supple no JVD Lungs clear to auscultation bilaterally, no wheezes, no rhonchi, no accessory muscle use Heart S1-S2 regular, bradycardic Abdomen soft nontender nondistended bowel sounds are present all 4 quadrants Lower extremities show no edema, no cyanosis, pulses palpable +2 bilaterally Skin showed no rash Neurological examination patient is awake alert and oriented 3, cranial nerves are grossly intact, no focal neurological defect could be appreciated Assessment and plan: 1. Asymptomatic sinus bradycardia, chronic. 2. Mechanical fall resulting in polytrauma. 3. Right-sided LeFort type I and nasal fractures 4. Cervical spinal cord injury severe C5-C6 and C6 and C7, with a C6 cord contusion, severe centralcanal stenosis, with the cord r deformity 5. Anemia chronic stable 6. Mild thrombocytopenia. 7. Hypertension. 8. Obstructive sleep apnea on CPAP. 9. Hyperlipidemia. 10. Anxiety. 11. Insomnia Plan: 1. Patient's platelet count remained stable, 2. Patient remains asymptomatic regarding her bradycardia, will continue to monitor. 3. Rest of the vital signs are satisfactory. 4. Will continue to monitor patient clinically as well as her labs. Patient understood her plan of care all questions were answered, all concerns were addressed Labs: No qualifying data available.No qualifying data available.Medications (20) Active Scheduled: (8) atorvastatin 20 mg tablet 20 mg 1 tab(s), Oral, qDay bacitracin topical 500 units/g Ointment TUBE 1 corbin, Topical, TID dexamethasone 4 mg tablet 4 mg 1 tab(s), Oral, TID docusate-senna (Senokot S) 50 mg-8.6 mg Tablet 1 tab(s), Oral, BID heparin 5,000 units/mL (1 mL) vial 5,000 unit(s) 1 mL, Subcutaneous, q8h pantoprazole 20 mg EC tablet 20 mg 1 tab(s), Oral, BIDAC paroxetine 20 mg tablet 20 mg 1 tab(s), Oral, qDay polyethylene glycol 3350 - UD packet 17 gram(s) 15 mL, Oral, qDay Continuous: (1) Lactated Ringers 1,000 mL 1,000 mL, Intravenous, 75 mL/hr PRN: (11) acetaminophen 500 mg Tablet 1,000 mg 2 tab(s), Oral, TID albuterol - ipratropium 2.5 mg-0.5 mg/3 mL Inhal Jessi UD 3 mL, Inhalation, q2hRT bisacodyl 10 mg Suppository 10 mg 1 supp, Rectal, qDay bisacodyl 5 mg EC tablet 10 mg 2 tab(s), Oral, Once dextrose 50% Solution Disp syringe 50 mL 12.5 gram(s) 25 mL, IV Push, AsDirected hydralazine 20 mg/mL (1mL) vial 10 mg 0.5 mL, IV Push, q4h magnesium hydroxide 8% Suspension 30 mL UD 30 mL, Oral, qDay morphine 4 mg/mL 1mL INJ 4 mg 1 mL, IV Push, q3h ondansetron 2 mg/ 1 mL 2 mL INJ 4 mg 2 mL, IV Push, q4h oxycodone 5 mg tablet (immediate release) 5 mg 1 tab(s), Oral, q4h oxymetazoline nasal 0.05% Hudson 2 spray(s), Nostril, each, Once Signature: Fay Grissom MD Digitally Signed by FAY GRISSOM MD on 01/06/2024 07:50 AM [id number] Note Date of Service 01/05/2024 Chief Complaint This is a very pleasant 83-year-old only speaking female with a known history of hypertension, CHARLENE on CPAP, hyperlipidemia, anxiety, insomnia, hiatal hernia, peripheral neuropathy, osteoarthritis who presented to [facility] on 12/27/2023 after having a mechanical fall, sustained trauma specifically to the cervical spine, cord contusion was seen by neurosurgery, under their primary service. Currently hospitalist team is following for medical management. Please see hospitalist progress note from 12/29/2023 for further details. Subjective Patient is resting in bed, not having any acute complaints. She states that usually her heart rate is low, stated that she went to her primary care physician's office and was noted to have a heart rate between 40-50 but she was entirely asymptomatic. She is on amlodipine chronically. She does not have any history of sick sinus syndrome, no autonomic dysregulation. Currently she denies any chest pain, shortness of breath, no lightheadedness or dizziness. She has a stable blood pressure. She is awake and alert x 3. On telemetry, it appears that heart rate has been consistently between low to high 40s. However, it is important note that the patient has been resting in bed without any activity, strict bedrest by neurosurgery due to her underlying injury. With stimulation, her heart rate does improve. I was notified by the nurse practitioner today that the patient's heart rate was found to be as low as 32 but she was entirely asymptomatic. Blood pressure again with arterial line showing MAP greater than 65. Objective Vitals and Measurements T: 36.8 C (Oral) TMIN: 36.4 C (Oral) TMAX: 36.8 C (Oral) HR: 40(Monitored) RR: 16 BP: 159/59 BP: 163/60(Line) SpO2: 95% Intake and Output 7AM Yesterday to 7AM Today Intake and Output (Last 24 hours) Intake Oral Intake 1340.00 Administration Information 1200.00 Supplement Intake 0.00 Output Urinary Catheter Output: 2650.00 Stool Count 6.00 Emesis Count 0.00 Total Summary Total Intake 2540.00 Total Output 2650.00 Fluid Balance -110.00 Physical Exam General Appearance: Patient comfortably lying on bed, not in acute distress Head: Traumatic wounds involving the periorbital regions, scalp, frontal region EENT: PERRLA, moist mucous membranes, with neck brace Neck: Supple, unable to assess JVD Cardiac: s1s2, regular rhythm, bradycardia, no murmurs or rubs or gallops Lungs: Clear to auscultation bilaterally, no wheeze, rhonchi or crackles Abdomen: Soft , Nontender, no organomegaly, bowel sounds heard Musculoskeletal: Full ROM , no gross deformities Extremities: No rash or ulcers or pedal edema Neurological: Alert, oriented x 3, right lower extremity with 1/5 strength, right upper extremity with improved range of motion, handgrip reduced. Skin: No rash or ulcers Weight Dosing Weight: 89.6 kg (12/28/23) Dosing Weight: 89.6 kg (12/28/23) Medications Medications (19) Active Scheduled: (8) atorvastatin 20 mg tablet 20 mg 1 tab(s), Oral, qDay bacitracin topical 500 units/g Ointment TUBE 1 corbin, Topical, TID dexamethasone 4 mg tablet 4 mg 1 tab(s), Oral, TID docusate-senna (Senokot S) 50 mg-8.6 mg Tablet 1 tab(s), Oral, BID heparin 5,000 units/mL (1 mL) vial 5,000 unit(s) 1 mL, Subcutaneous, q8h pantoprazole 20 mg EC tablet 20 mg 1 tab(s), Oral, BIDAC paroxetine 20 mg tablet 20 mg 1 tab(s), Oral, qDay polyethylene glycol 3350 - UD packet 17 gram(s) 15 mL, Oral, qDay Continuous: (1) Lactated Ringers 1,000 mL 1,000 mL, Intravenous, 75 mL/hr PRN: (10) acetaminophen 500 mg Tablet 1,000 mg 2 tab(s), Oral, TID albuterol - ipratropium 2.5 mg-0.5 mg/3 mL Inhal Jessi UD 3 mL, Inhalation, q2hRT bisacodyl 10 mg Suppository 10 mg 1 supp, Rectal, qDay bisacodyl 5 mg EC tablet 10 mg 2 tab(s), Oral, Once dextrose 50% Solution Disp syringe 50 mL 12.5 gram(s) 25 mL, IV Push, AsDirected magnesium hydroxide 8% Suspension 30 mL UD 30 mL, Oral, qDay morphine 4 mg/mL 1mL INJ 4 mg 1 mL, IV Push, q3h ondansetron 2 mg/ 1 mL 2 mL INJ 4 mg 2 mL, IV Push, q4h oxycodone 5 mg tablet (immediate release) 5 mg 1 tab(s), Oral, q4h oxymetazoline nasal 0.05% Hudson 2 spray(s), Nostril, each, Once Lab Results 01/03 05:05 WBC: 9.9 Hgb: 11.8 L Hct: 33.4 L Platelet: 144 L Neutrophil %: 81.2 H Imaging Results and Diagnostics CT Spine Cervical w/o Contrast Result Date: December 30, 2023 Verified By: BONILLA MACKAY MD CLINICAL STATEMENT: IMPRESSION: 1. Moderate to severe central canal stenosis including [id number] atC4-C5, and severe at C5-C6 and C6-C7.2. Multilevel spondylotic changes resulting in moderate to severe foraminalstenosis including severe left C3-C4, severe left C4-C5, severe right atC5-C6, and moderate right at C6-C7.3. Level by level findings as described. XR Knee 1 or 2 Views Right Result Date: December 28, 2023 Verified By: AURY ZAMARRIPA MD CLINICAL STATEMENT: IMPRESSION: No acute osseous abnormality. XR Hand and Wrist 6 Views Left Result Date: December 28, 2023 Verified By: NEETU BILLINGSLEY MD CLINICAL STATEMENT: IMPRESSION: No acute fracture or dislocation. Possible DISI injury of the wrist. If clinical symptoms persist consider MRIto evaluate for ligamentous injury. XR Hand Minimum 3 Views Right Result Date: December 28, 2023 Verified By: NEETU BILLINGSLEY MD CLINICAL STATEMENT: IMPRESSION: No acute fracture or dislocation. Chronic healed deformities of the distal radius and ulna. Degenerative changes as above. XR Forearm 2 Views Right Result Date: December 28, 2023 Verified By: NEETU BILLINGSLEY MD CLINICAL STATEMENT: IMPRESSION: Cortical irregularity of the distal ulna not seen on same day hand x-ray isquestionablychronic versus acute in nature. This is nondisplaced.Correlate with point tenderness. XR Elbow Minimum 3 Views Left Result Date: December 28, 2023 Verified By: NEETU BILLINGSLEY MD CLINICAL STATEMENT: IMPRESSION: Normal examination of the left elbow. MRI Spine Lumbar w/o Contrast Result Date: December 28, 2023 Verified By: AURY ZAMARRIPA MD CLINICAL STATEMENT: IMPRESSION: 1. Right subarticular inferiorly migrated extrusion at L2-L3 moderatelynarrows the right lateral recess.2. Fluid signal in the L2-L3 disc with surrounding marrow edema and adjacentedema in the right psoas muscle and surrounding soft tissues. Findings arefavored to be degenerative or reactive in nature, however an infectiousetiology is within the differential but considered less likely.3. Multilevel degenerative changes as described above. MRI Spine Thoracic w/o Contrast Result Date: December 28, 2023 Verified By: AURY ZAMARRIPA MD CLINICAL STATEMENT: IMPRESSION: 1. Fluid in the L2-3 disc space with surrounding edema and adjacent softtissue edema. Findings could be degenerative or reactive/posttraumatic.2. There is mild edema in the prevertebral space extending from the cervicalspine through T3.3. Multilevel degenerative changes as above. MRI Spine Cervical w/o Contrast Result Date: December 28, 2023 Verified By: AURY ZAMARRIPA MD CLINICAL STATEMENT: IMPRESSION: 1. Multilevel degenerative changes with severe canal stenosis and corddeformity at C5-C6 and moderate to severe canal stenosis at C6-C7.2. Increased cord signal at the C6 level is likely due to acute cordcontusion given history of trauma.3. Prevertebral edema from C4 through T3. This isnonspecific and may bereactive.4. Varying degrees of neural foraminal stenosis as above, severe on the leftat C4-C5. CT Spine Lumbar w/o Contrast Result Date: December 28, 2023 Verified By: LAN ORTIZ MD CLINICAL STATEMENT: IMPRESSION: Multilevel degenerative changes is as detailed above. No acute traumaticinjury identified. CT Thorax w/o Contrast Result Date: December 28, 2023 Verified By: LAN ORTIZ MD CLINICAL STATEMENT: IMPRESSION: Mild peripheral reticular scarring and or fibrosis with minimalbronchiectasis at the lung bases. Findings could be seen in the setting ofchronic interstitial lung disease. No acute traumatic injury identified. 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 She was scheduled for a C5-C6 laminectomy with neurosurgery yesterday, this had to be canceled due to loss of signals from neuromonitoring. Continued on dexamethasone. Ongoing monitoring and management by neurosurgery. Patient's telemetry was reviewed, EKG was reviewed. She has sinus bradycardia with heart rates anywhere between mid 30s to 40s at rest. It with any stimulation, she does go as high as 55. I did have her do some exercises at bedside and this improved. He is asymptomatic at this time. Blood pressure is optimal, does not have any instability. At this time, discussed with nurse practitioner from neurosurgery, okay to monitor on telemetry, will discontinue amlodipine for the time being. QTc is upper limits of normal. Will obtain magnesium level and replete if needed. Avoid any QTc prolonging medications. She is on paroxetine chronically. No evidence of any heart block, OR interval within normal limits. I suspect that the heart rate will be improved with activity. She also tells me that chronically, she has been low. While holding amlodipine, will place as needed hydralazine for blood pressure systolic greater [id number]. Appears that the pain regimen currently is not optimal for the patient. Continue with current pain regimen, has been utilizing Tylenol as needed. Has not really required much opioids. Has been having at least 2 bowel movements daily. Plan of care discussed with patient at bedside. All questions answered in detail. This is a note transcribed by me, the attending physician on service using the 'Dragon' dictation software. Please excuse any grammatical errors, repetitions/duplications if any are present in the entirety of this note. Thank you. Digitally Signed by JODY LARSON MD on 01/05/2024 05:47 PM [id number] NoteSINUS BRADYCARDIA LVH WITH SECONDARY REPOLARIZATION ABNORMALITY ANTERIOR Q WAVES, POSSIBLY DUE TO LVH Electronic Signature: NOAH LANIER MD 01/06/2024 19:58:07[facility] 04-01-2024 Note Date of Service 01/03/2024 Split shared visit with Dr. Robertson, who providing coverage for Dr. 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 Was leaving mandaen when she stepped off a curb, and then fell face first onto cement. Denied LOC. Upon initial evaluation at [facility], the patient developed difficulty moving her bilateral upper extremities and right lower extremity. CT head without contrast found to be negative for any acute intracranial hemorrhage. CT facial bones demonstrated a right-sided LeFort type I fracture. CT cervical spine negative for any acute osseous abnormality, however did demonstrate multilevel degenerative changes, most significant at C5-C6. The patient was transferred to the [place] emergency department as a trauma transfer, and underwentadditional workup. -CT scans of thorax and lumbar spine were negative for acute findings. -MRI of the lumbar spine demonstrated fluid signal in the L2-L3 disc with surrounding marrow edema and adjacent edema in the right psoas muscle favoring to be degenerative or reactive. There was alsoa right subarticular inferiorly migrated extrusion at L2-L3 moderately narrowing the right lateral recess. -MRI of the thoracic spine demonstrated again mild edema in the prevertebral space extending from C3-T3. -MRI of the cervical spine demonstrated multilevel degenerative changes with severe central canal stenosis and cord deformity at C5-C6 and moderate to severe central canal stenosis at C6-C7. There was increased cord signal at C6 likely due to an acute cord contusion given the trauma. There was alsoevidence of prevertebral edema from C3-T3. Patient was discussed with on-call neurosurgeon who recommended cervical spine immobilization with an Morton Cresson collar and a loading dose of 10 mg of dexamethasone, followed by scheduled dexamethasone; currently receiving 4mg q6hr. Patient was taken to the OR for a C5-C6 laminectomy with Dr. Barber on 12/31/23, however signals were lost and not able to be maintained when patient was positioned prone, therefore surgery was aborted/canceled. Signals returned when returned to supine position. Patient recovered from anesthesia in the PACU and was then transferred to [address] [place] [address] with 3:1 nursing care for close neurological monitoring. Arterial line has been kept in place for close blood pressure monitoring, with orders to for MAP goal greater than 85. She intermittently has MAPs in the 70s, but recovers on her own, and also corrects with A-Line is recalibrated. Patient has been kept on strict spine precautions, with logroll only maintaining head and neck in neutral position with turns. Strict orders for hard cervical collar at all times in place. Patient has been compliant with collar us, and tolerating the brace. Additionally, ordered for frequent turning/repositioning every 2 hours, passive ROM, and hourly incentive spirometer use while awake. SCDs while in bed and is on subq heparin for DVT prophylaxis. Patient is making gradual progress and slowing small improvements neurologically. Earlier in the week, when attempt was made to set her up to approximately 30 degrees, she developed abrupt onset numbness in her extremities. However when this was reattempted by Dr. Barber, yielded different results and she did not develop paresthesias when slowly sat up to 30 degrees. Yesterday HOB raised cautiously to 35 degrees, and patient tolerated. This morning she indicates she briefly had black spots in her vision but this dissipated rather quickly and hadn't mentioned it yesterday; states she didn't think much of it since it was so brief, also did not re-occur. She states that since up to 35 degrees, feels her right arm strength has improved more. Today she is able to raise right arm up morebriskly and has slightly more flexion of her fingers on the right, wrist flexion also a little stronger and more brisk, although cannot close hand/perform hand grasp on the right. Tricep and bicep str ength unchanged; 4/5 and 5/5 respectively on the right. Wiggles toes on the right, able to move legback and forth laterally and raise minimally off the bed. Does not flex at the knee or ankle and remains quite rigid. I can passive flex her right leg at the knee, less so and more difficult to perform at the ankle. +paresthesias of right upper and lower extremity; unchanged- not significantly better or worse. Remains stronger on the left than right: 4/5 hand grasp, 5/5 wrist, bicep and tricep. 5/5 strength of left lower extremity with plantar and dorsiflexion, knee flexion/extension and hip flexor. Continues in the hard cervical Morton Cresson collar, tolerating well. Objective Vitals and Measurements T: 36.6 C (Oral) TMIN: 36.6 C (Oral) TMAX: 37.0 C (Oral) HR: 51(Monitored) RR: 16 BP: 111/65 BP: 141/50(Line) SpO2: 95% Intake and Output 7AM Yesterday to 7AM Today Intake and Output (Last 24 hours) Intake Administration Information 600.00 Oral Intake 1620.00 Supplement Intake 200.00 Output Urinary Catheter Output: 4700.00 Stool Count 3.00 Diaper Count 1.00 Emesis Count 0.00 Total Summary Total Intake 2420.00 Total Output 4700.00 Fluid Balance -2280.00 Physical Exam See above. +Facial contusions with scattered edema and ecchymosis Has bilateral head clamp cranial puncture sites with chris intact. Patient is calm, cooperative. Pleasant demeanor. Awake, alert and oriented appropriately. Converseswell. Follows commands to the best of her ability and gives good effort on exam. Regular heart rate and rhythm. S1-S2 present. Breath sounds clear bilaterally. Respirations unlabored and even. Abdomen is round, softly distended. Patient states she is passing flatus. Bowel sounds present throughout. Tolerating PO; denies N/V. On bowel regimen, had small stool today. Indwelling Rowland catheter intact, draining clear yellow urine to gravity. Weight Dosing Weight: 89.6 kg (12/28/23) Dosing Weight: 89.6 kg (12/28/23) Medications Medications (20) Active Scheduled: (9) amLODIPine 2.5 mg tablet 2.5 mg 1 tab(s), Oral, qDay atorvastatin 20 mg tablet 20 mg 1 tab(s), Oral, qDay bacitracin topical 500 units/g Ointment TUBE 1 corbin, Topical, TID dexamethasone 4 mg/1 mL solution 4 mg 1 mL, IV Push, q6h docusate-senna (Senokot S) 50 mg-8.6 mg Tablet 1 tab(s), Oral, BID heparin 5,000 units/mL (1 mL) vial 5,000 unit(s) 1 mL, Subcutaneous, q8h pantoprazole 20 mg EC tablet 20 mg 1 tab(s), Oral, BIDAC paroxetine 20 mg tablet 20 mg 1 tab(s), Oral, qDay polyethylene glycol 3350 - UD packet 17 gram(s) 15 mL, Oral, BID Continuous: (1) Lactated Ringers 1,000 mL 1,000 mL, Intravenous, 75 mL/hr PRN: (10) acetaminophen 500 mg Tablet 1,000 mg 2 tab(s), Oral, TID albuterol - ipratropium 2.5 mg-0.5 mg/3 mL Inhal Jessi UD 3 mL, Inhalation, q2hRT bisacodyl 10 mg Suppository 10 mg 1 supp, Rectal, qDay bisacodyl 5 mg EC tablet 10 mg 2 tab(s), Oral, Once dextrose 50% Solution Disp syringe 50 mL 12.5 gram(s) 25 mL, IV Push, AsDirected magnesium hydroxide 8% Suspension 30 mL UD 30 mL, Oral, qDay morphine 4 mg/mL 1mL INJ 4 mg 1 mL, IV Push, q3h ondansetron 2 mg/ 1 mL 2 mL INJ 4 mg 2 mL, IV Push, q4h oxycodone 5 mg tablet (immediate release) 5 mg 1 tab(s), Oral, q4h oxymetazoline nasal 0.05% Hudson 2 spray(s), Nostril, each, Once Lab Results 01/01 06:49 WBC: 7.3 Hgb: 11.4 L Hct: 33.0 L Platelet: 133 L Neutrophil %: 82.0 H EKG No qualifying data available. Assessment/Plan Central Cord Syndrome with Incomplete spinal cord injury s/p fall -Injury occurred 12/27/2023 after sustaining a fall, landing face first onto concrete -MRI cervical spine shows severe central canal stenosis and cord deformity at C5-C6, C6-C7 with a C6 cord contusion. Per Dr. Barber, patient with disc space collapse and disc osteophyte complexes at C5-6 and C6-7. There is also focal disc extrusion at C7 and T1. All of which directly compress the ventral spinal cord. -Patient taken to the OR 12/31/2023 for a C5-C6 laminectomy with Dr. Barber. Unfortunately, neuromonitoring signals were lost when the patient was positioned prone, therefore surgery was aborted and canceled. Signals returned once returned to supine. -Cranial head clamp puncture sites with chris intact; sites to be wahed daily with mild soap/water and using fingerpads to cleanse. Keep clean and dry. Will need chris removed in 10-14 days; can be performed in [facility] office. -Remains 3:1 nursing care. -Arterial line to be kept in place for close blood pressure monitoring per Dr. Barber's instruction. MAP ideally to be greater than 85 for adequate cord perfusion. MAP has mostly remained at goal; has intermittently in the 70s; corrects on its own and with recalibration of the line. -Overnight, systolic blood pressure ranging 140s-170s. -Overall, pain is being well-managed with current pain management regimen. On GI prophylaxis/bowel regimen while on narcotic medications. -Tolerating slow cautious HOB challenge; raised from 35 to 40 degrees today by Neurosurgery FIELD SERVICE MANAGER. Hadno change in symptoms; okay to have HOB up to 40 degrees. Patient instructed to notify staff immediately with any changes, and HOB will be brought back down; discussed with staff. -Exam is slightly more improved today; has a little more flexion of fingers and wrist on the right today compared to yesterday. -Monitor patient's neuro exam cautiously/closely and notify neurosurgery promptly with any acute changes in exam, or with any concerns. -Continue Dexamethasone 4mg q6hrs and scheduled Protonix. Beginning tomorrow 01/03 will then begin to taper to 4mg TID, and continue gradual 2-week tapering schedule of dexamethasone. -Continue hard cervical collar at all times, maintain Morton Cresson collar. -Log roll only for turning. Maintain cervical spine immobilization. Dr. Barber has requested multiple staff members to roll patient to ensure safety, and maintaining spinal alignment by holding both her head and C-spine steady with turns. -Passive ROM every 4 hours -Aggressive pulmonary toilet with incentive spirometer Q1H while awake to prevent the development of pneumonia. Plan is to continue to monitor patient very closely and continue to assess how she is progressing; she has been showing daily gradual improvements. If continues this way, need for surgery likely can be avoided. Will continue gradual HOB challenge, increasing by 5-10 degrees daily over the next several days while monitoring her tolerance to these adjustments and being more upright. If she is able to tolerate eventually sitting fully upright, then would Dr. Sunil gregory with beginning gradualmobilization and initiatig PT/OT at that point. DVT prophylaxis: SubQ Heparin every 8 hours + mechanical DVT prophylaxis as well, SCDs at all timeswhile in bed. Have discussed/reinforced importance of adhering to supportive measures outlined above daily with nursing staff due to patient's risk of developing pneumonia, DVTs, skin breakdown, exacerbation of spinal cord injury if measures are not strictly followed. Hospitalist following along for assistance with medical management. Appreciate their assistance. Please refer to Dr. Robertson's addendum for additional information details regarding neurosurgical planof care. Digitally Signed by LILIAM SANTILLAN on 01/03/2024 02:43 PM Digitally Signed by LILIAM SANTILLAN on 01/03/2024 02:47 PM [id number] Note Date of Service 01/03/2024 Split shared visit with Dr. Robertson, who providing coverage for Dr. 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 Was leaving mandaen when she stepped off a curb, and then fell face first onto cement. Denied LOC. Upon initial evaluation at [facility], the patient developed difficulty moving her bilateral upper extremities and right lower extremity. CT head without contrast found to be negative for any acute intracranial hemorrhage. CT facial bones demonstrated a right-sided LeFort type I fracture. CT cervical spine negative for any acute osseous abnormality, however did demonstrate multilevel degenerative changes, most significant at C5-C6. The patient was transferred to the [place] emergency department as a trauma transfer, and underwentadditional workup. -CT scans of thorax and lumbar spine were negative for acute findings. -MRI of the lumbar spine demonstrated fluid signal in the L2-L3 disc with surrounding marrow edema and adjacent edema in the right psoas muscle favoring to be degenerative or reactive. There was alsoa right subarticular inferiorly migrated extrusion at L2-L3 moderately narrowing the right lateral recess. -MRI of the thoracic spine demonstrated again mild edema in the prevertebral space extending from C3-T3. -MRI of the cervical spine demonstrated multilevel degenerative changes with severe central canal stenosis and cord deformity at C5-C6 and moderate to severe central canal stenosis at C6-C7. There was increased cord signal at C6 likely due to an acute cord contusion given the trauma. There was alsoevidence of prevertebral edema from C3-T3. Patient was discussed with on-call neurosurgeon who recommended cervical spine immobilization with an Morton Cresson collar and a loading dose of 10 mg of dexamethasone, followed by scheduled dexamethasone; currently receiving 4mg q6hr. Patient was taken to the OR for a C5-C6 laminectomy with Dr. Barber on 12/31/23, however signals were lost and not able to be maintained when patient was positioned prone, therefore surgery was aborted/canceled. Signals returned when returned to supine position. Patient recovered from anesthesia in the PACU and was then transferred to [address] [place] [address] with 3:1 nursing care for close neurological monitoring. Arterial line has been kept in place for close blood pressure monitoring, with orders to for MAP goal greater than 85. She intermittently has MAPs in the 70s, but recovers on her own, and also corrects with A-Line is recalibrated. Patient has been kept on strict spine precautions, with logroll only maintaining head and neck in neutral position with turns. Strict orders for hard cervical collar at all times in place. Patient has been compliant with collar us, and tolerating the brace. Additionally, ordered for frequent turning/repositioning every 2 hours, passive ROM, and hourly incentive spirometer use while awake. SCDs while in bed and is on subq heparin for DVT prophylaxis. Patient is making gradual progress and slowing small improvements neurologically. Earlier in the week, when attempt was made to set her up to approximately 30 degrees, she developed abrupt onset numbness in her extremities. However when this was reattempted by Dr. Barber, yielded different results and she did not develop paresthesias when slowly sat up to 30 degrees. Yesterday HOB raised cautiously to 35 degrees, and patient tolerated. This morning she indicates she briefly had black spots in her vision but this dissipated rather quickly and hadn't mentioned it yesterday; states she didn't think much of it since it was so brief, also did not re-occur. She states that since up to 35 degrees, feels her right arm strength has improved more. Today she is able to raise right arm up morebriskly and has slightly more flexion of her fingers on the right, wrist flexion also a little stronger and more brisk, although cannot close hand/perform hand grasp on the right. Tricep and bicep str ength unchanged; 4/5 and 5/5 respectively on the right. Wiggles toes on the right, able to move legback and forth laterally and raise minimally off the bed. Does not flex at the knee or ankle and remains quite rigid. I can passive flex her right leg at the knee, less so and more difficult to perform at the ankle. +paresthesias of right upper and lower extremity; unchanged- not significantly better or worse. Remains stronger on the left than right: 4/5 hand grasp, 5/5 wrist, bicep and tricep. 5/5 strength of left lower extremity with plantar and dorsiflexion, knee flexion/extension and hip flexor. Continues in the hard cervical Morton Cresson collar, tolerating well. Objective Vitals and Measurements T: 36.6 C (Oral) TMIN: 36.6 C (Oral) TMAX: 37.0 C (Oral) HR: 51(Monitored) RR: 16 BP: 111/65 BP: 141/50(Line) SpO2: 95% Intake and Output 7AM Yesterday to 7AM Today Intake and Output (Last 24 hours) Intake Administration Information 600.00 Oral Intake 1620.00 Supplement Intake 200.00 Output Urinary Catheter Output: 4700.00 Stool Count 3.00 Diaper Count 1.00 Emesis Count 0.00 Total Summary Total Intake 2420.00 Total Output 4700.00 Fluid Balance -2280.00 Physical Exam See above. +Facial contusions with scattered edema and ecchymosis Has bilateral head clamp cranial puncture sites with chris intact. Patient is calm, cooperative. Pleasant demeanor. Awake, alert and oriented appropriately. Converseswell. Follows commands to the best of her ability and gives good effort on exam. Regular heart rate and rhythm. S1-S2 present. Breath sounds clear bilaterally. Respirations unlabored and even. Abdomen is round, softly distended. Patient states she is passing flatus. Bowel sounds present throughout. Tolerating PO; denies N/V. On bowel regimen, had small stool today. Indwelling Rowland catheter intact, draining clear yellow urine to gravity. Weight Dosing Weight: 89.6 kg (12/28/23) Dosing Weight: 89.6 kg (12/28/23) Medications Medications (20) Active Scheduled: (9) amLODIPine 2.5 mg tablet 2.5 mg 1 tab(s), Oral, qDay atorvastatin 20 mg tablet 20 mg 1 tab(s), Oral, qDay bacitracin topical 500 units/g Ointment TUBE 1 corbin, Topical, TID dexamethasone 4 mg/1 mL solution 4 mg 1 mL, IV Push, q6h docusate-senna (Senokot S) 50 mg-8.6 mg Tablet 1 tab(s), Oral, BID heparin 5,000 units/mL (1 mL) vial 5,000 unit(s) 1 mL, Subcutaneous, q8h pantoprazole 20 mg EC tablet 20 mg 1 tab(s), Oral, BIDAC paroxetine 20 mg tablet 20 mg 1 tab(s), Oral, qDay polyethylene glycol 3350 - UD packet 17 gram(s) 15 mL, Oral, BID Continuous: (1) Lactated Ringers 1,000 mL 1,000 mL, Intravenous, 75 mL/hr PRN: (10) acetaminophen 500 mg Tablet 1,000 mg 2 tab(s), Oral, TID albuterol - ipratropium 2.5 mg-0.5 mg/3 mL Inhal Jessi UD 3 mL, Inhalation, q2hRT bisacodyl 10 mg Suppository 10 mg 1 supp, Rectal, qDay bisacodyl 5 mg EC tablet 10 mg 2 tab(s), Oral, Once dextrose 50% Solution Disp syringe 50 mL 12.5 gram(s) 25 mL, IV Push, AsDirected magnesium hydroxide 8% Suspension 30 mL UD 30 mL, Oral, qDay morphine 4 mg/mL 1mL INJ 4 mg 1 mL, IV Push, q3h ondansetron 2 mg/ 1 mL 2 mL INJ 4 mg 2 mL, IV Push, q4h oxycodone 5 mg tablet (immediate release) 5 mg 1 tab(s), Oral, q4h oxymetazoline nasal 0.05% Hudson 2 spray(s), Nostril, each, Once Lab Results 01/01 06:49 WBC: 7.3 Hgb: 11.4 L Hct: 33.0 L Platelet: 133 L Neutrophil %: 82.0 H EKG No qualifying data available. Assessment/Plan Central Cord Syndrome with Incomplete spinal cord injury s/p fall -Injury occurred 12/27/2023 after sustaining a fall, landing face first onto concrete -MRI cervical spine shows severe central canal stenosis and cord deformity at C5-C6, C6-C7 with a C6 cord contusion. Per Dr. Barber, patient with disc space collapse and disc osteophyte complexes at C5-6 and C6-7. There is also focal disc extrusion at C7 and T1. All of which directly compress the ventral spinal cord. -Patient taken to the OR 12/31/2023 for a C5-C6 laminectomy with Dr. Barber. Unfortunately, neuromonitoring signals were lost when the patient was positioned prone, therefore surgery was aborted and canceled. Signals returned once returned to supine. -Cranial head clamp puncture sites with chris intact; sites to be wahed daily with mild soap/water and using fingerpads to cleanse. Keep clean and dry. Will need chris removed in 10-14 days; can be performed in [facility] office. -Remains 3:1 nursing care. -Arterial line to be kept in place for close blood pressure monitoring per Dr. Barber's instruction. MAP ideally to be greater than 85 for adequate cord perfusion. MAP has mostly remained at goal; has intermittently in the 70s; corrects on its own and with recalibration of the line. -Overnight, systolic blood pressure ranging 140s-170s. -Overall, pain is being well-managed with current pain management regimen. On GI prophylaxis/bowel regimen while on narcotic medications. -Tolerating slow cautious HOB challenge; raised from 35 to 40 degrees today by Neurosurgery FIELD SERVICE MANAGER. Hadno change in symptoms; okay to have HOB up to 40 degrees. Patient instructed to notify staff immediately with any changes, and HOB will be brought back down; discussed with staff. -Exam is slightly more improved today; has a little more flexion of fingers and wrist on the right today compared to yesterday. -Monitor patient's neuro exam cautiously/closely and notify neurosurgery promptly with any acute changes in exam, or with any concerns. -Continue Dexamethasone 4mg q6hrs and scheduled Protonix. Beginning tomorrow 01/03 will then begin to taper to 4mg TID, and continue gradual 2-week tapering schedule of dexamethasone. -Continue hard cervical collar at all times, maintain Morton Cresson collar. -Log roll only for turning. Maintain cervical spine immobilization. Dr. Barber has requested multiple staff members to roll patient to ensure safety, and maintaining spinal alignment by holding both her head and C-spine steady with turns. -Passive ROM every 4 hours -Aggressive pulmonary toilet with incentive spirometer Q1H while awake to prevent the development of pneumonia. Plan is to continue to monitor patient very closely and continue to assess how she is progressing; she has been showing daily gradual improvements. If continues this way, need for surgery likely can be avoided. Will continue gradual HOB challenge, increasing by 5-10 degrees daily over the next several days while monitoring her tolerance to these adjustments and being more upright. If she is able to tolerate eventually sitting fully upright, then would Dr. Barber okay with beginning gradualmobilization and initiatig PT/OT at that point. DVT prophylaxis: SubQ Heparin every 8 hours + mechanical DVT prophylaxis as well, SCDs at all timeswhile in bed. Have discussed/reinforced importance of adhering to supportive measures outlined above daily with nursing staff due to patient's risk of developing pneumonia, DVTs, skin breakdown, exacerbation of spinal cord injury if measures are not strictly followed. Hospitalist following along for assistance with medical management. Appreciate their assistance. Please refer to Dr. Robertson's addendum for additional information details regarding neurosurgical planof care. Digitally Signed by LILIAM SANTILLAN APRN-FORM STRIPPER on 01/03/2024 02:43 PM Digitally Signed by LILIAM SANTILLAN APRN-FORM STRIPPER on 01/03/2024 02:47 PM [id number] Anesthesiology Consult note Patient: KIESHA COLVIN Age: 83 years Sex: Female : 1940 Associated Diagnoses: None Author: MAGDALENA GRANT MD Assessment Postanesthesia assessment Vitals: Vital signs from flowsheet : Vital Signs 12/31/2023 10:34 EDT Heart Rate Monitored 46 bpm LOW Systolic Blood Pressure Non-Invasive 144 mmHg HI Diastolic Blood Pressure Non-Invasive 59 mmHg LOW Mean Arterial Pressure (NBP) 82 mmHg Systolic Blood Pressure Invasive 156 mmHg HI Diastolic Blood Pressure Invasive 60 mmHg Mean Arterial Pressure (Line) 95 mmHg 12/31/2023 10:18 EDT Heart Rate Monitored 46 bpm LOW Respiratory Rate 12 br/min LOW Systolic Blood Pressure Non-Invasive 148 mmHg HI Diastolic Blood Pressure Non-Invasive 66 mmHg Mean Arterial Pressure (NBP) 91 mmHg Systolic Blood Pressure Invasive 157 mmHg HI Diastolic Blood Pressure Invasive 62 mmHg Mean Arterial Pressure (Line) 96 mmHg 12/31/2023 10:03 EDT Temperature Temporal Artery 36 DegC Heart Rate Monitored 45 bpm LOW Respiratory Rate 16 br/min Systolic Blood Pressure Non-Invasive 137 mmHg Diastolic Blood Pressure Non-Invasive 61 mmHg Mean Arterial Pressure (NBP) 80 mmHg Systolic Blood Pressure Invasive 152 mmHg HI Diastolic Blood Pressure Invasive 61 mmHg Mean Arterial Pressure (Line) 94 mmHg Reason For Taking VItal Signs Procedure post-care 12/31/2023 9:55 EDT Temperature (Route Not Specified) 36 DegC DegC Heart Rate Monitored 54 bpm bpm Respiratory Rate - Anes 10 br/min br/min 12/31/2023 9:50 EDT Heart Rate Monitored 40 bpm bpm Respiratory Rate - Anes 9 br/min br/min 12/31/2023 9:45 EDT Temperature (Route Not Specified) 36 DegC DegC Heart Rate Monitored 57 bpm bpm Respiratory Rate - Anes 12 br/min br/min 12/31/2023 9:40 EDT Heart Rate Monitored 74 bpm bpm Respiratory Rate - Anes 12 br/min br/min 12/31/2023 9:35 EDT Heart Rate Monitored 55 bpm bpm Respiratory Rate - Anes 12 br/min br/min 12/31/2023 9:30 EDT Temperature (Route Not Specified) 36 DegC DegC Respiratory Rate - Anes 12 br/min br/min 12/31/2023 9:25 EDT Heart Rate Monitored 71 bpm bpm Respiratory Rate - Anes 12 br/min br/min 12/31/2023 9:22 EDT Systolic Blood Pressure Non-Invasive 114 mmHg mmHg Diastolic Blood Pressure Non-Invasive 64 mmHg mmHg 12/31/2023 9:20 EDT Respiratory Rate - Anes 12 br/min br/min 12/31/2023 9:15 EDT Temperature (Route Not Specified) 36 DegC DegC Respiratory Rate - Anes 12 br/min br/min 12/31/2023 9:10 EDT Respiratory Rate - Anes 12 br/min br/min 12/31/2023 9:05 EDT Heart Rate Monitored 51 bpm bpm Respiratory Rate - Anes 12 br/min br/min 12/31/2023 9:00 EDT Temperature (Route Not Specified) 36 DegC DegC Heart Rate Monitored 45 bpm bpm Respiratory Rate - Anes 12 br/min br/min 12/31/2023 8:55 EDT Heart Rate Monitored 45 bpm bpm Respiratory Rate - Anes 12 br/min br/min 12/31/2023 8:52 EDT Systolic Blood Pressure Non-Invasive 145 mmHg mmHg Diastolic Blood Pressure Non-Invasive 64 mmHg mmHg 12/31/2023 8:50 EDT Heart Rate Monitored 47 bpm bpm Respiratory Rate - Anes 12 br/min br/min 12/31/2023 8:49 EDT Systolic Blood Pressure Non-Invasive 126 mmHg mmHg Diastolic Blood Pressure Non-Invasive 77 mmHg mmHg 12/31/2023 8:46 EDT Systolic Blood Pressure Non-Invasive 127 mmHg mmHg Diastolic Blood Pressure Non-Invasive 58 mmHg mmHg 12/31/2023 8:45 EDT Heart Rate Monitored 39 bpm bpm Respiratory Rate - Anes 12 br/min br/min 12/31/2023 8:43 EDT Systolic Blood Pressure Non-Invasive 130 mmHg mmHg Diastolic Blood Pressure Non-Invasive 59 mmHg mmHg 12/31/2023 8:40 EDT Heart Rate Monitored 40 bpm bpm Respiratory Rate - Anes 12 br/min br/min Systolic Blood Pressure Non-Invasive 138 mmHg mmHg Diastolic Blood Pressure Non-Invasive 56 mmHg mmHg 12/31/2023 8:37 EDT Systolic Blood Pressure Non-Invasive 139 mmHg mmHg Diastolic Blood Pressure Non-Invasive 60 mmHg mmHg 12/31/2023 8:35 EDT Heart Rate Monitored 46 bpm bpm Respiratory Rate - Anes 0 br/min br/min 12/31/2023 8:34 EDT Systolic Blood Pressure Non-Invasive 147 mmHg mmHg Diastolic Blood Pressure Non-Invasive 65 mmHg mmHg 12/31/2023 8:31 EDT Systolic Blood Pressure Non-Invasive 173 mmHg mmHg Diastolic Blood Pressure Non-Invasive 71 mmHg mmHg 12/31/2023 8:30 EDT Heart Rate Monitored 50 bpm bpm Respiratory Rate - Anes 0 br/min br/min 12/31/2023 8:28 EDT Systolic Blood Pressure Non-Invasive 149 mmHg mmHg Diastolic Blood Pressure Non-Invasive 66 mmHg mmHg 12/31/2023 7:21 EDT Heart Rate Monitored 51 bpm LOW 12/31/2023 6:33 EDT Temperature Oral 36.4 DegC Apical Heart Rate 52 bpm LOW Respiratory Rate 18 br/min Systolic Blood Pressure Non-Invasive 144 mmHg HI Diastolic Blood Pressure Non-Invasive 68 mmHg Reason For Taking VItal Signs Routine 12/31/2023 4:46 EDT Temperature Oral 36.5 DegC Apical Heart Rate 51 bpm LOW Respiratory Rate 16 br/min Systolic Blood Pressure Non-Invasive 142 mmHg HI Diastolic Blood Pressure Non-Invasive 47 mmHg Reason For Taking VItal Signs Routine 12/30/2023 22:38 EDT Temperature Oral 36.6 DegC Peripheral Pulse Rate 55 bpm LOW Respiratory Rate 16 br/min Systolic Blood Pressure Non-Invasive 148 mmHg HI Diastolic Blood Pressure Non-Invasive 59 mmHg LOW Blood Pressure Method Automatic Blood Pressure Location Right arm Reason For Taking VItal Signs Routine 12/30/2023 18:50 EDT Temperature Oral 36.6 DegC Peripheral Pulse Rate 59 bpm LOW Respiratory Rate 16 br/min Systolic Blood Pressure Non-Invasive 122 mmHg Diastolic Blood Pressure Non-Invasive 56 mmHg LOW Mean Arterial Pressure (NBP) 75 mmHg Blood Pressure Method Automatic Blood Pressure Location Right arm Blood Pressure Cuff Size Medium Reason For Taking VItal Signs Routine 12/30/2023 14:40 EDT Temperature Oral 36.4 DegC Peripheral Pulse Rate 56 bpm LOW Respiratory Rate 16 br/min Systolic Blood Pressure Non-Invasive 110 mmHg Diastolic Blood Pressure Non-Invasive 51 mmHg LOW Blood Pressure Method Automatic Blood Pressure Location Right arm Blood Pressure Cuff Size Medium Reason For Taking VItal Signs Routine 12/30/2023 6:59 EDT Temperature Oral 36.7 DegC Peripheral Pulse Rate 51 bpm LOW Respiratory Rate 16 br/min Systolic Blood Pressure Non-Invasive 130 mmHg Diastolic Blood Pressure Non-Invasive 56 mmHg LOW Blood Pressure Method Automatic Blood Pressure Location Right arm Blood Pressure Cuff Size Medium Reason For Taking VItal Signs Routine 12/30/2023 4:01 EDT Temperature Oral 36.1 DegC Peripheral Pulse Rate 52 bpm LOW Respiratory Rate 16 br/min Systolic Blood Pressure Non-Invasive 123 mmHg Diastolic Blood Pressure Non-Invasive 58 mmHg LOW Reason For Taking VItal Signs Routine . Mental status: at preoperative baseline. Respiratory function: respirations are non-labored. Respiratory support: none. CV function: Normal rate, Regular rhythm. Cardiovascular support: none. Pain: Post op control see nursing medication documentation. Nausea status: denies nausea. Postoperative hydration status: euvolemic. Digitally Signed by MAGDALENA GRANT MD on 12/31/2023 10:36 AM [id number] Anesthesiology Consult note Patient: KIESHA COLVIN Age: 83 years Sex: Female : 1940 Associated Diagnoses: None Author: NYDIA LEON MD Preoperative Information NPO >8 hours Anesthesia history Patient's history: negative. History of Present Illness 83yoF with PMH hyperlipidemia, hypertension, depression, and peripheral neuropathy presenting for c5-7 lami/decompression due to fall with incomplete spinal cord injury. Denies CP, SOB, fever, recentcough, cold or congestion; >4 METS prior to fall. No GERD sx, n or v today. Health Status Allergies: Allergic Reactions (Selected) Severity Not Documented Bee Stings- Bee stings. Levaquin- Rash. Nonallergic Reactions (Selected) Severity Not Documented Penicillin- Rash., Allergies (3) ActiveReaction Bee StingsBee Stings Levaquinrash penicillinrash Current medications: (Selected) Inpatient Medications Ordered Colace: 100 mg, 1 cap(s), Oral, BID Dextrose 50% IV Push: 12.5 gram(s), 25 mL, IV Push, AsDirected, PRN: Hypoglycemia Dulcolax Laxative: 10 mg, 1 supp, Rectal, qDay, PRN: Constipation DuoNeb: 3 mL, Inhalation, q2hRT, PRN: Shortness of breath or wheezing LR 1,000 mL: 100 mL/hr, Intravenous Lipitor: 20 mg, 1 tab(s), Oral, qDay Milk of Magnesia: 30 mL, Oral, qDay, PRN: Constipation Miralax Powder Packet: 17 gram(s), 15 mL, Oral, BID Paxil: 20 mg, 1 tab(s), Oral, qDay Zofran: 4 mg, 2 mL, IV Push, q4h, PRN: Nausea/Vomiting amLODIPine: 2.5 mg, 1 tab(s), Oral, qDay bacitracin topical ointment: 1 corbin, Topical, TID dexAMETHasone: 4 mg, 1 mL, IV Push, q6h morphine: 2 mg, 1 mL, IV Push, q3h, PRN: Pain, scale 4-6 morphine: 4 mg, 1 mL, IV Push, q3h, PRN: Pain, scale 7-10 oxymetazoline 0.05% nasal spray: 2 spray(s), Nostril, each, Once, PRN: Nasal congestion pantoprazole: 20 mg, 1 tab(s), Oral, BIDAC Documented Medications Documented Lipitor 20 mg oral tablet: 20 mg, 1 tab(s), Oral, qDay Multivitamin: 1 cap(s), Oral, qDay, 0 Refill(s) Paxil 20 mg oral tablet: 20 mg, 1 tab(s), Oral, qDay, 0 Refill(s) Vitamin D3: 50 mcg, 1 tab(s), Oral, qDay amLODIPine 2.5 mg oral tablet: 2.5 mg, 1 tab(s), Oral, qDay aspirin 81 mg oral delayed release tablet: 81 mg, 1 tab(s), Oral, qDay omeprazole 20 mg oral delayed release capsule: 20 mg, 1 cap(s), Oral, qAM, Medications (17) Active Scheduled: (8) amLODIPine 2.5 mg tablet 2.5 mg 1 tab(s), Oral, qDay atorvastatin 20 mg tablet 20 mg 1 tab(s), Oral, qDay bacitracin topical 500 units/g Ointment TUBE 1 corbin, Topical, TID dexamethasone 4 mg/1 mL solution 4 mg 1 mL, IV Push, q6h docusate sodium 100 mg Capsule 100 mg 1 cap(s), Oral, BID pantoprazole 20 mg EC tablet 20 mg 1 tab(s), Oral, BIDAC paroxetine 20 mg tablet 20 mg 1 tab(s), Oral, qDay polyethylene glycol 3350 - UD packet 17 gram(s) 15 mL, Oral, BID Continuous: (1) Lactated Ringers 1,000 mL 1,000 mL, Intravenous, 100 mL/hr PRN: (8) albuterol - ipratropium 2.5 mg-0.5 mg/3 mL Inhal Jessi UD 3 mL, Inhalation, q2hRT bisacodyl 10 mg Suppository 10 mg 1 supp, Rectal, qDay dextrose 50% Solution Disp syringe 50 mL 12.5 gram(s) 25 mL, IV Push, AsDirected magnesium hydroxide 8% Suspension 30 mL UD 30 mL, Oral, qDay morphine 2 mg/mL 1 mL syringe 2 mg 1 mL, IV Push, q3h morphine 4 mg/mL 1mL INJ 4 mg 1 mL, IV Push, q3h ondansetron 2 mg/ 1 mL 2 mL INJ 4 mg 2 mL, IV Push, q4h oxymetazoline nasal 0.05% Hudson 2 spray(s), Nostril, each, Once Problem list: Active Problems (1) flu like symptoms Histories Past Medical History: No active or resolved past medical history items have been selected or recorded. Procedure history: No active procedure history items have been selected or recorded. Social History Social & Psychosocial Habits No Data Available . Physical Examination Vital Signs(last 24 hrs) Last Charted Temp Oral36.4 DegC (DEC 30 06:33) SBPH 144mmHg (DEC 30 06:33) DBP68 mmHg (DEC 30 06:33) Measurements from flowsheet : Measurements 12/30/2023 6:39 EDT [place] Body Weight 61.36 kg General: Alert and oriented, No acute distress. Airway: unable to open mouth fully with c collar in place. Mallampati classification: III (soft palate, base of uvula visible). Neck: Supple. Respiratory: Lungs are clear to auscultation, Respirations are non-labored. Cardiovascular: Normal rate, Regular rhythm. Heart Sounds: Normal. Neurologic: Alert, Oriented. Review / Management Results review: Labs (Last four charted values) WBC 7.7(DEC 30)6.8(DEC 28)6.1(DEC 27) Hgb L 10.8(DEC 30)L 10.5(DEC 28)L 10.7(DEC 27) Hct L 31.7(DEC 30)L 30.3(DEC 28)L 30.9(DEC 27) Plt L 131(DEC 30)L 147(DEC 28)153(DEC 27) Na 141(DEC 30)139(DEC 28)139(DEC 27) K 4.2(DEC 30)4.2(DEC 28)4.0(DEC 27) CO2 27(DEC 30)25(DEC 28)25(DEC 27) Cl 107(DEC 30)108(DEC 28)107(DEC 27) Cr 0.78(DEC 30)0.78(DEC 28)0.77(DEC 27) BUN H 30.0(DEC 30)22.0(DEC 28)19.0(DEC 27) Glucose H 142(DEC 30)H 136(DEC 28)H 144(DEC 27) Ca L 8.6(DEC 30)L 8.4(DEC 28)L 8.5(DEC 27) PT 12.6(DEC 30)H 15.3(DEC 27) INR 1.1(DEC 30)1.3(DEC 27) PTT L 24.0(DEC 30) . Documentation reviewed: Current records. Assessment and Plan [employer] (ASA) physical status classification: Class III. Anesthetic Preoperative Plan Premedication: intravenous. Anesthetic technique: General. Induction: intravenously. Maintenance airway: Oral endotracheal tube. Special Monitoring: Arterial line. Postoperative pain management: Per surgeon. Risks discussed: nausea, vomiting, headache, sore throat, dental injury, hypotension, allergic reaction, serious complications. Informed consent: signed by patient. Notes: will use glidescope with in-line neck stabilization. Digitally Signed by NYDIA LEON MD on 12/31/2023 08:01 AM [facility] [id number] NoteSINUS BRADYCARDIA WITH FIRST DEGREE AV BLOCK PROBABLE LVH WITH SECONDARY REPOL ABNRM Artifact in leads Electronic Signature: KUMAR PEDRAZA MD 01/02/2024 06:06:08[facility] 03-[facility] Progress note Date of Service 12/30/2023 Chief Complaint weakness and decrease in sensation with having improvement with my left upper extremity Subjective This is a shared split visit between myself and Dr. Humphrey Evaluation of the patient she is seen resting supine in bed, in no acute distress. Friend is at thebedside. She remains in a Morton c-collar patient reports that she is still having numbness with decreased sensation with improvement to her left side but not right. She denies any abdominal pain, naus ea, vomiting, shortness of breath or any other new injuries during my evaluation. Objective Vitals and Measurements T: 36.7 C (Oral) TMIN: 36.1 C (Oral) TMAX: 36.8 C (Oral) HR: 51 RR: 16 BP: 130/56 SpO2: 95% Intake and Output 7AM Yesterday to 7AM Today Intake and Output (Last 24 hours) Intake Oral Intake 710.00 Administration Information 2400.00 Output Urinary Catheter Output: 2200.00 Stool Count 0.00 Total Summary Total Intake 3110.00 Total Output 2200.00 Fluid Balance 910.00 Physical Exam General: Awake and alert and in no apparent distress. Able to answer questions and speak in full sentences. Supine in bed. Sitting upright. HEENT: Morton c-collar remains intact, mucous membranes moist and pink. Sclerae anicteric. PERRLA. Bilateral and periorbital ecchymosis with ecchymosis noted over her some of her nose. With moderate facial edema. EMO's are intact pupillary response equal and reactive 3+. Heart: Regular rate and rhythm. S1-S2 are present. Lungs: Chest rise symmetrical. Respirations unlabored. Clear to auscultation bilaterally. Abdomen: Soft and nontender. Nondistended. No guarding or rigidity. Bowel sounds 4 quadrants. Extremities: Patient able to move all extremities on examination but does have decrease in sensation to light touch throughout the upper extremities decreased strength. Patient is able to dorsiflex and plantarflex without difficulty bilaterally and still has decrease in sensation to the right lowerextremity. Skin: Normal color for ethnicity. No pallor or diaphoresis. No jaundice. Psychiatric: Calm and cooperative. Weight Dosing Weight: 89.6 kg (12/28/23) Dosing Weight: 89.6 kg (12/28/23) Medications Medications (16) Active Scheduled: (6) amLODIPine 2.5 mg tablet 2.5 mg 1 tab(s), Oral, qDay atorvastatin 20 mg tablet 20 mg 1 tab(s), Oral, qDay bacitracin topical 500 units/g Ointment TUBE 1 corbin, Topical, TID dexamethasone 4 mg/1 mL solution 4 mg 1 mL, IV Push, q6h pantoprazole 20 mg EC tablet 20 mg 1 tab(s), Oral, BIDAC paroxetine 20 mg tablet 20 mg 1 tab(s), Oral, qDay Continuous: (1) Lactated Ringers 1,000 mL 1,000 mL, Intravenous, 100 mL/hr PRN: (9) albuterol - ipratropium 2.5 mg-0.5 mg/3 mL Inhal Jessi UD 3 mL, Inhalation, q2hRT bisacodyl 10 mg Suppository 10 mg 1 supp, Rectal, qDay dextrose 50% Solution Disp syringe 50 mL 12.5 gram(s) 25 mL, IV Push, AsDirected docusate sodium 100 mg Capsule 100 mg 1 cap(s), Oral, BID magnesium hydroxide 8% Suspension 30 mL UD 30 mL, Oral, qDay morphine 2 mg/mL 1 mL syringe 2 mg 1 mL, IV Push, q3h morphine 4 mg/mL 1mL INJ 4 mg 1 mL, IV Push, q3h ondansetron 2 mg/ 1 mL 2 mL INJ 4 mg 2 mL, IV Push, q4h oxymetazoline nasal 0.05% Hudson 2 spray(s), Nostril, each, Once Lab Results 12/28 05:27 WBC: 6.8 Hgb: 10.5 L Hct: 30.3 L Platelet: 147 L Neutrophil %: 82.3 H Glucose Level: 136 H Sodium Level: 139 Potassium Level: 4.2 BUN: 22.0 Creatinine Lvl (s): 0.78 Imaging Results and Diagnostics XR Knee 1 or 2 Views Right Result Date: December 28, 2023 Verified By: AURY ZAMARRIPA MD CLINICAL STATEMENT: IMPRESSION: No acute osseous abnormality. XR Hand and Wrist 6 Views Left Result Date: December 28, 2023 Verified By: NEETU BILLINGSLEY MD CLINICAL STATEMENT: IMPRESSION: No acute fracture or dislocation. Possible DISI injury of the wrist. If clinical symptoms persist consider MRIto evaluate for ligamentous injury. XR Hand Minimum 3 Views Right Result Date: December 28, 2023 Verified By: NEETU BILLINGSLEY MD CLINICAL STATEMENT: IMPRESSION: No acute fracture or dislocation. Chronic healed deformities of the distal radius and ulna. Degenerative changes as above. XR Forearm 2 Views Right Result Date: December 28, 2023 Verified By: NEETU BILLINGSLEY MD CLINICAL STATEMENT: IMPRESSION: Cortical irregularity of the distal ulna not seen on same day hand x-ray isquestionablychronic versus acute in nature. This is nondisplaced.Correlate with point tenderness. XR Elbow Minimum 3 Views Left Result Date: December 28, 2023 Verified By: NEETU BILLINGSLEY MD CLINICAL STATEMENT: IMPRESSION: Normal examination of the left elbow. MRI Spine Lumbar w/o Contrast Result Date: December 28, 2023 Verified By: AURY ZAMARRIPA MD CLINICAL STATEMENT: IMPRESSION: 1. Right subarticular inferiorly migrated extrusion at L2-L3 moderatelynarrows the right lateral recess.2. Fluid signal in the L2-L3 disc with surrounding marrow edema and adjacentedema in the right psoas muscle and surrounding soft tissues. Findings arefavored to be degenerative or reactive in nature, however an infectiousetiology is within the differential but considered less likely.3. Multilevel degenerative changes as described above. MRI Spine Thoracic w/o Contrast Result Date: December 28, 2023 Verified By: AURY ZAMARRIPA MD CLINICAL STATEMENT: IMPRESSION: 1. Fluid in the L2-3 disc space with surrounding edema and adjacent softtissue edema. Findings could be degenerative or reactive/posttraumatic.2. There is mild edema in the prevertebral space extending from the cervicalspine through T3.3. Multilevel degenerative changes as above. MRI Spine Cervical w/o Contrast Result Date: December 28, 2023 Verified By: AURY ZAMARRIPA MD CLINICAL STATEMENT: IMPRESSION: 1. Multilevel degenerative changes with severe canal stenosis and corddeformity at C5-C6 and moderate to severe canal stenosis at C6-C7.2. Increased cord signal at the C6 level is likely due to acute cordcontusion given history of trauma.3. Prevertebral edema from C4 through T3. This isnonspecific and may bereactive.4. Varying degrees of neural foraminal stenosis as above, severe on the leftat C4-C5. CT Spine Lumbar w/o Contrast Result Date: December 28, 2023 Verified By: LAN ORTIZ MD CLINICAL STATEMENT: IMPRESSION: Multilevel degenerative changes is as detailed above. No acute traumaticinjury identified. CT Thorax w/o Contrast Result Date: December 28, 2023 Verified By: LNA ORTIZ MD CLINICAL STATEMENT: IMPRESSION: Mild peripheral reticular scarring and or fibrosis with minimalbronchiectasis at the lung bases. Findings could be seen in the setting ofchronic interstitial lung disease. No acute traumatic injury identified. EKG No qualifying data available. Assessment/Plan This patient is a very pleasant 83-year-old female who is hospital/trauma day #3 after a mechanicalfall sustaining a LeFort I fracture, concern for chronic systolic radius fracture with questionableDISI injury, central cord syndrome with incomplete spinal cord injury. Given these findings the patient was admitted to the trauma service team for further treatment and evaluation Patient remained hemodynamically stable from a trauma standpoint. Vital signs and I/O have been reviewed. Patient has remained afebrile throughout the last 24 hours. No morning laboratory data to review. Plan: 1. Polytrauma -Supportive care given -Continue with multimodality pain control -Will make sure the patient is on appropriate bowel regimen secondary to use of narcotics and scheduled surgery tomorrow with neurosurgery. -Patient encouraged to cough and deep breathing use her incentive spirometry -DVT prophylaxis as ordered. 2. 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 -Neurosurgery is following and is planning to go to the OR for a cervical decompression on 12/31/2023 -Patient to remain in Morton c-collar at all times -Did speak with the neurosurgeon FIELD SERVICE MANAGER and they will accept the patient 3. Chronic distal radius fracture -Orthopedics did see and evaluate and signed off. chronic fractures are well- healed no surgical or non operative management is need per the note review. Patient be weightbearing as tolerated. 4. Medical management per the primary team for chronic medical conditions. Patient with past medical history of hypertension, sleep apnea with CPAP usage, hyperlipidemia, insomnia, hiatal hernia, peripheral neuropathy and osteoarthritis.-Stable and is to resume home medications -Appreciate input 5. LeFort 1 fracture and nasal fracture -ENT did see and evaluate if they are going to be treated conservatively and she will need to be monitored on an outpatient basis. Patient will also need to have dentures made. Patient is to follow-up on outpatient basis no surgical indication per review of their note at this time. Case to be discussed with Dr. Humphrey. Please see his addendum to follow. This document was dictated with voice recognition software and may contain grammatical errors Digitally Signed by ELIDA PALACIO APRN-AYAN on 12/30/2023 10:56 AM [id number] Note ORIGINAL EXAMINATION: CT OF THE CERVICAL SPINE WITHOUT CONTRAST TECHNIQUE: Axial followed by coronal and sagittal reformatted CT images were obtained without intravenous contrast. DICOM images are available. One or more of the following dose reduction techniques were used: automated exposure control, adjustment of the mA and/or kV according to patient size, or use of iterative reconstruction. COMPARISON: MRI cervical spine 12/28/2023 HISTORY: Stenosis, spinal cord contusion, surgical planning FINDINGS: Alignment: Trace anterolisthesis of C4 on C5 and retrolisthesis of C5 on C6. Vertebrae: No acute/recent fracture or significant chronic height loss. Multilevel endplate degenerative changes most pronounced at the C5-C6 through T1-T2 levels. Discs: Moderate to severe disc height loss involving C3-C4 through T1-T2. C2-C3 : Diffuse posterior disc bulge most pronounced central and to the left of midline without central canal stenosis. Mild bilateral uncovertebral hypertrophy and moderate bilateral facet arthrosis without foraminal stenosis. C3-C4: Small disc osteophyte complex most pronounced centrally without causing central canal stenosis. Bilateral, left greater than right uncovertebral hypertrophy and moderate facet arthrosis results in severe left without right foraminal stenosis. C4-C5 : Diffuse disc osteophyte complex results in an xugh-ne-yxegbnjo central canal stenosis. Mild bilateral uncovertebral hypertrophy, severe left and xqfa-mk-ehblhzzg right facet arthrosis causes severe left and mild right foraminal stenosis. C5-C6 : Diffuse osteophytosis most pronounced central and to the right of midline causes severe central canal stenosis. Bilateral uncovertebral hypertrophy and moderate facet arthrosis results in severe right and vmcl-af-zdqbeaqf left foraminal stenosis. C6-C7: Central and right central disc extrusion with cephalad migration in the central and right central zone (axial image 96 series 2) causes severe central canal stenosis. Mild bilateral uncovertebral spur, moderate right mild left facet arthrosis results in mild right without left foraminal stenosis. C7-T1: Central zone disc protrusion (axial image 105 series 2) causes mild central canal stenosis. Bilateral facet arthrosis and uncovertebral hypertrophy without significant foraminal stenosis. Paraspinal soft tissues: Partially calcified retro dental soft tissue causing bowing of the posterior longitudinal ligament. Diagnostic considerations include pannus, CPPD, and HADD. Visualized neck: Unremarkable. Visualized lung apices: Unremarkable. PARANASAL SINUSES: Air-fluid levels within the right sphenoid and bilateral paranasal sinuses larger on the right side. MASTOID SINUSES: Small effusions of the bilateral dependent mastoid air cells. ADDITIONAL COMMENTS: Advanced degenerative changes of the bilateral sternoclavicular joints. The patient is edentulous. IMPRESSION: 1. Moderate to severe central canal stenosis including gakc-iu-xmejxwgg at C4-C5, and severe at C5-C6 and C6-C7. 2. 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 3. Level by level findings as described. Interpreted by: Bonilla Mackay MD Preliminary Report By: Bonilla Mackay MD Electronically signed By Bonilla Mackay MD Dictated Date: 12/30/2023 1:44:36 PM Prelim Date: 12/30/2023 2:05:45 PM Sign Date: 12/30/2023 2:05:45 PM Ordering Provider: [id number] Progress note Date of Service 12/30/2023 Chief Complaint weakness and decrease in sensation with having improvement with my left upper extremity Subjective This is a shared split visit between myself and Dr. Humphrey Evaluation of the patient she is seen resting supine in bed, in no acute distress. Friend is at thebedside. She remains in a Morton c-collar patient reports that she is still having numbness with decreased sensation with improvement to her left side but not right. She denies any abdominal pain, naus ea, vomiting, shortness of breath or any other new injuries during my evaluation. Objective Vitals and Measurements T: 36.7 C (Oral) TMIN: 36.1 C (Oral) TMAX: 36.8 C (Oral) HR: 51 RR: 16 BP: 130/56 SpO2: 95% Intake and Output 7AM Yesterday to 7AM Today Intake and Output (Last 24 hours) Intake Oral Intake 710.00 Administration Information 2400.00 Output Urinary Catheter Output: 2200.00 Stool Count 0.00 Total Summary Total Intake 3110.00 Total Output 2200.00 Fluid Balance 910.00 Physical Exam General: Awake and alert and in no apparent distress. Able to answer questions and speak in full sentences. Supine in bed. Sitting upright. HEENT: Morton c-collar remains intact, mucous membranes moist and pink. Sclerae anicteric. PERRLA. Bilateral and periorbital ecchymosis with ecchymosis noted over her some of her nose. With moderate facial edema. EMO's are intact pupillary response equal and reactive 3+. Heart: Regular rate and rhythm. S1-S2 are present. Lungs: Chest rise symmetrical. Respirations unlabored. Clear to auscultation bilaterally. Abdomen: Soft and nontender. Nondistended. No guarding or rigidity. Bowel sounds 4 quadrants. Extremities: Patient able to move all extremities on examination but does have decrease in sensation to light touch throughout the upper extremities decreased strength. Patient is able to dorsiflex and plantarflex without difficulty bilaterally and still has decrease in sensation to the right lowerextremity. Skin: Normal color for ethnicity. No pallor or diaphoresis. No jaundice. Psychiatric: Calm and cooperative. Weight Dosing Weight: 89.6 kg (12/28/23) Dosing Weight: 89.6 kg (12/28/23) Medications Medications (16) Active Scheduled: (6) amLODIPine 2.5 mg tablet 2.5 mg 1 tab(s), Oral, qDay atorvastatin 20 mg tablet 20 mg 1 tab(s), Oral, qDay bacitracin topical 500 units/g Ointment TUBE 1 corbin, Topical, TID dexamethasone 4 mg/1 mL solution 4 mg 1 mL, IV Push, q6h pantoprazole 20 mg EC tablet 20 mg 1 tab(s), Oral, BIDAC paroxetine 20 mg tablet 20 mg 1 tab(s), Oral, qDay Continuous: (1) Lactated Ringers 1,000 mL 1,000 mL, Intravenous, 100 mL/hr PRN: (9) albuterol - ipratropium 2.5 mg-0.5 mg/3 mL Inhal Jessi UD 3 mL, Inhalation, q2hRT bisacodyl 10 mg Suppository 10 mg 1 supp, Rectal, qDay dextrose 50% Solution Disp syringe 50 mL 12.5 gram(s) 25 mL, IV Push, AsDirected docusate sodium 100 mg Capsule 100 mg 1 cap(s), Oral, BID magnesium hydroxide 8% Suspension 30 mL UD 30 mL, Oral, qDay morphine 2 mg/mL 1 mL syringe 2 mg 1 mL, IV Push, q3h morphine 4 mg/mL 1mL INJ 4 mg 1 mL, IV Push, q3h ondansetron 2 mg/ 1 mL 2 mL INJ 4 mg 2 mL, IV Push, q4h oxymetazoline nasal 0.05% Hudson 2 spray(s), Nostril, each, Once Lab Results 12/28 05:27 WBC: 6.8 Hgb: 10.5 L Hct: 30.3 L Platelet: 147 L Neutrophil %: 82.3 H Glucose Level: 136 H Sodium Level: 139 Potassium Level: 4.2 BUN: 22.0 Creatinine Lvl (s): 0.78 Imaging Results and Diagnostics XR Knee 1 or 2 Views Right Result Date: December 28, 2023 Verified By: AURY ZAMARRIPA MD CLINICAL STATEMENT: IMPRESSION: No acute osseous abnormality. XR Hand and Wrist 6 Views Left Result Date: December 28, 2023 Verified By: NEETU BILLINGSLEY MD CLINICAL STATEMENT: IMPRESSION: No acute fracture or dislocation. Possible DISI injury of the wrist. If clinical symptoms persist consider MRIto evaluate for ligamentous injury. XR Hand Minimum 3 Views Right Result Date: December 28, 2023 Verified By: NEETU BILLINGSLEY MD CLINICAL STATEMENT: IMPRESSION: No acute fracture or dislocation. Chronic healed deformities of the distal radius and ulna. Degenerative changes as above. XR Forearm 2 Views Right Result Date: December 28, 2023 Verified By: NEETU BILLINGSLEY MD CLINICAL STATEMENT: IMPRESSION: Cortical irregularity of the distal ulna not seen on same day hand x-ray isquestionablychronic versus acute in nature. This is nondisplaced.Correlate with point tenderness. XR Elbow Minimum 3 Views Left Result Date: December 28, 2023 Verified By: NEETU BILLINGSLEY MD CLINICAL STATEMENT: IMPRESSION: Normal examination of the left elbow. MRI Spine Lumbar w/o Contrast Result Date: December 28, 2023 Verified By: AURY ZAMARRIPA MD CLINICAL STATEMENT: IMPRESSION: 1. Right subarticular inferiorly migrated extrusion at L2-L3 moderatelynarrows the right lateral recess.2. Fluid signal in the L2-L3 disc with surrounding marrow edema and adjacentedema in the right psoas muscle and surrounding soft tissues. Findings arefavored to be degenerative or reactive in nature, however an infectiousetiology is within the differential but considered less likely.3. Multilevel degenerative changes as described above. MRI Spine Thoracic w/o Contrast Result Date: December 28, 2023 Verified By: AURY ZAMARRIPA MD CLINICAL STATEMENT: IMPRESSION: 1. Fluid in the L2-3 disc space with surrounding edema and adjacent softtissue edema. Findings could be degenerative or reactive/posttraumatic.2. There is mild edema in the prevertebral space extending from the cervicalspine through T3.3. Multilevel degenerative changes as above. MRI Spine Cervical w/o Contrast Result Date: December 28, 2023 Verified By: AURY ZAMARRIPA MD CLINICAL STATEMENT: IMPRESSION: 1. Multilevel degenerative changes with severe canal stenosis and corddeformity at C5-C6 and moderate to severe canal stenosis at C6-C7.2. Increased cord signal at the C6 level is likely due to acute cordcontusion given history of trauma.3. Prevertebral edema from C4 through T3. This isnonspecific and may bereactive.4. Varying degrees of neural foraminal stenosis as above, severe on the leftat C4-C5. CT Spine Lumbar w/o Contrast Result Date: December 28, 2023 Verified By: LAN ORTIZ MD CLINICAL STATEMENT: IMPRESSION: Multilevel degenerative changes is as detailed above. No acute traumaticinjury identified. CT Thorax w/o Contrast Result Date: December 28, 2023 Verified By: LAN ORTIZ MD CLINICAL STATEMENT: IMPRESSION: Mild peripheral reticular scarring and or fibrosis with minimalbronchiectasis at the lung bases. Findings could be seen in the setting ofchronic interstitial lung disease. No acute traumatic injury identified. EKG No qualifying data available. Assessment/Plan This patient is a very pleasant 83-year-old female who is hospital/trauma day #3 after a mechanicalfall sustaining a LeFort I fracture, concern for chronic systolic radius fracture with questionableDISI injury, central cord syndrome with incomplete spinal cord injury. Given these findings the patient was admitted to the trauma service team for further treatment and evaluation Patient remained hemodynamically stable from a trauma standpoint. Vital signs and I/O have been reviewed. Patient has remained afebrile throughout the last 24 hours. No morning laboratory data to review. Plan: 1. Polytrauma -Supportive care given -Continue with multimodality pain control -Will make sure the patient is on appropriate bowel regimen secondary to use of narcotics and scheduled surgery tomorrow with neurosurgery. -Patient encouraged to cough and deep breathing use her incentive spirometry -DVT prophylaxis as ordered. 2. 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 -Neurosurgery is following and is planning to go to the OR for a cervical decompression on 12/31/2023 -Patient to remain in Morton c-collar at all times -Did speak with the neurosurgeon FIELD SERVICE MANAGER and they will accept the patient 3. Chronic distal radius fracture -Orthopedics did see and evaluate and signed off. chronic fractures are well- healed no surgical or non operative management is need per the note review. Patient be weightbearing as tolerated. 4. Medical management per the primary team for chronic medical conditions. Patient with past medical history of hypertension, sleep apnea with CPAP usage, hyperlipidemia, insomnia, hiatal hernia, peripheral neuropathy and osteoarthritis.-Stable and is to resume home medications -Appreciate input 5. LeFort 1 fracture and nasal fracture -ENT did see and evaluate if they are going to be treated conservatively and she will need to be monitored on an outpatient basis. Patient will also need to have dentures made. Patient is to follow-up on outpatient basis no surgical indication per review of their note at this time. Case to be discussed with Dr. Humphrey. Please see his addendum to follow. This document was dictated with voice recognition software and may contain grammatical errors Digitally Signed by ELIDA PALACIO on 12/30/2023 10:56 AM [id number] Orthopaedic surgery Consult note Date of Service 12/28/2023 Reason for Consultation Chronic distal radius fracture, questionable DISI injury Referring Physician Emergency department History of Present Illness Patient is a 83-year-old female who presents to [place] ED after a fall from standing height. Patient states that she fell and hit her head onto the concrete, but did not lose consciousness. Patient is mainly complaining of pain and weakness in the bilateral hands and wrist at this time. X-rays were obtained which demonstrated a chronic distal radius and ulna fracture on the right wrist, as well as a chronic DISI deformity on the left wrist. Patient denies any numbness, tingling, shortness of breath, chest pain. Review of Systems Review of systems negative unless otherwise stated in the HPI above Physical Exam Vitals and Measurements T: 37.1 C (Oral) HR: 57(Monitored) RR: 16 BP: 148/50 SpO2: 96% WT: 89.6 kg Weight Dosing Weight: 89.6 kg (12/28/23) General: NAD, A&Ox3 HEENT: normocephalic, ecchymosis to bilateral eyes, abrasions over the face, EOMI intact CV: pulses regular throughout, brisk cap refill throughout, no peripheral edema Pulm: normal work of breathing, equal chest rise bilaterally, no intercostal retractions or conversational dyspnea GI: abdomen is soft, nondistended, no rigidity or guarding, patient states that she is numb in the abdomen area Psych: calm and cooperative MS: -C spine: Morton collar in place -Patient is tender palpation in the mid thoracic region -Bilateral clavicle without tenderness to palpation. -Bilateral upper extremities without tenderness with gross palpation. Shoulder, elbow, joints without mechanical block or tenderness with gross range of motion. - Patient states she has pain in her bilateral hands mainly in her fingers, wrists without any tenderness to palpation, no blocks with gross range of motion. -No pelvic tenderness with rocking. -No tenderness to palpation throughout left lower extremity. Hip, Knee, and ankle joints without mechanical block or tenderness. -No plantar ecchymosis. -Vascularly intact to bilateral upper and lower extremities - Patient states that she feels numbness in her abdomen, has sensation down by bilateral feet -Weakness is present in the right upper extremity and right lower extremity, especially with knee flexion extension and radiation protection engineer strength Lab Results No 36 Hour Lab Data Imaging Results and Diagnostics X-rays of the right wrist were reviewed and demonstrate a chronic, healed fracture of the distal radius, as well as a healed fracture of the distal ulna. There are no acute fracture dislocations. X-rays of the left wrist were reviewed and demonstrate a possible chronic DISI injury. There are noother acute fracture dislocations. Assessment/Plan -83-year-old female presents after mechanical fall from standing height. This is a closed, isolatedinjury. Patient is neurovascular intact. 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 Please call with any questions or concerns. - Patient follow-up outpatient with Dr. Del Angel next 1 to 2 weeks - Plan discussed with attending, Dr. Del Angel Problem List/Past Medical History Ongoing No qualifying data Historical No qualifying data Procedure/Surgical History No qualifying data available. Medications Inpatient bacitracin topical ointment, 1 corbin, Topical, TID Colace, 100 mg= 1 cap(s), Oral, BID, PRN Dextrose 50% IV Push, 12.5 gram(s)= 25 mL, IV Push, AsDirected, PRN Dulcolax Laxative, 10 mg= 1 supp, Rectal, qDay, PRN LR 1,000 mL, 1000 mL, Intravenous Milk of Magnesia, 30 mL, Oral, qDay, PRN oxymetazoline 0.05% nasal spray, 2 spray(s), Nostril, each, Once, PRN Home amLODIPine 2.5 mg oral tablet, 2.5 mg= 1 tab(s), Oral, qDay aspirin 81 mg oral delayed release tablet, 81 mg= 1 tab(s), Oral, qDay Lipitor 20 mg oral tablet, 20 mg= 1 tab(s), Oral, qDay Multivitamin, 1 cap(s), Oral, qDay omeprazole 20 mg oral delayed release capsule, 20 mg= 1 cap(s), Oral, qAM Paxil 20 mg oral tablet, 20 mg= 1 tab(s), Oral, qDay Vitamin D3, 50 mcg= 1 tab(s), Oral, qDay Allergies Levaquin (rash) penicillin (rash) Social History Smoking Status - 03/23/2012 Patient is non-smoker Immunizations No qualifying data available. Digitally Signed by STAS ENGEL DO on 12/28/2023 02:16 PM Digitally Signed by STAS ENGEL DO on 12/28/2023 04:02 PM [facility] [id number] Progress note Date of Service 12/29/2023 Chief Complaint Right sided weakness, facial pain Subjective This is a split shared visit between myself and Dr. Humphrey. Patient resting supine in bed in no acute distress watching TV. Remains hard cervical collar. Denies any new complaints this morning. Continues to have mild facial pain and weakness to her right sidethat is slowly improving. Objective Vitals and Measurements T: 36.8 C (Oral) TMIN: 36.3 C (Oral) TMAX: 36.8 C (Oral) HR: 58 RR: 18 BP: 114/52 SpO2: 92% HT: 170.2 cm WT: 89.6 kg BMI: 30.93 Intake and Output 7AM Yesterday to 7AM Today Intake and Output (Last 24 hours) Intake Administration Information 933.33 Oral Intake 200.00 Output Urine Voided 450.00 Urinary Catheter Output: 600.00 Stool Count 0.00 Total Summary Total Intake 1133.33 Total Output 1050.00 Fluid Balance 83.33 Physical Exam General -alert and oriented x4, answers questions appropriately. In no acute distress. HEENT -facial edema and ecchymosis throughout. Hard cervical collar in place. Cardiovascular -S1-S2, regular rate and rhythm. Respiratory -easy unlabored respirations. Chest rise symmetrical. Abdomen/GI -soft, nontender, bowel sounds present. Nondistended. Musculoskeletal -WATKINS x4. Weakness noted to right side. Psychiatric -calm and cooperative. Skin -normal for ethnicity. Weight Dosing Weight: 89.6 kg (12/28/23) Dosing Weight: 89.6 kg (12/28/23) Medications Medications (16) Active Scheduled: (6) amLODIPine 2.5 mg tablet 2.5 mg 1 tab(s), Oral, qDay atorvastatin 20 mg tablet 20 mg 1 tab(s), Oral, qDay bacitracin topical 500 units/g Ointment TUBE 1 corbin, Topical, TID dexamethasone 4 mg/1 mL solution 4 mg 1 mL, IV Push, q6h pantoprazole 20 mg EC tablet 20 mg 1 tab(s), Oral, BIDAC paroxetine 20 mg tablet 20 mg 1 tab(s), Oral, qDay Continuous: (1) Lactated Ringers 1,000 mL 1,000 mL, Intravenous, 100 mL/hr PRN: (9) albuterol - ipratropium 2.5 mg-0.5 mg/3 mL Inhal Jessi UD 3 mL, Inhalation, q2hRT bisacodyl 10 mg Suppository 10 mg 1 supp, Rectal, qDay dextrose 50% Solution Disp syringe 50 mL 12.5 gram(s) 25 mL, IV Push, AsDirected docusate sodium 100 mg Capsule 100 mg 1 cap(s), Oral, BID magnesium hydroxide 8% Suspension 30 mL UD 30 mL, Oral, qDay morphine 2 mg/mL 1 mL syringe 2 mg 1 mL, IV Push, q3h morphine 4 mg/mL 1mL INJ 4 mg 1 mL, IV Push, q3h ondansetron 2 mg/ 1 mL 2 mL INJ 4 mg 2 mL, IV Push, q4h oxymetazoline nasal 0.05% Hudson 2 spray(s), Nostril, each, Once Lab Results 12/28 05:27 WBC: 6.8 Hgb: 10.5 L Hct: 30.3 L Platelet: 147 L Neutrophil %: 82.3 H Glucose Level: 136 H Sodium Level: 139 Potassium Level: 4.2 BUN: 22.0 Creatinine Lvl (s): 0.78 12/27 22:40 WBC: 6.1 Hgb: 10.7 L Hct: 30.9 L Platelet: 153 Neutrophil %: 83.4 H Protime: 15.3 H PT International Ratio: 1.3 Glucose Level: 144 H Sodium Level: 139 Potassium Level: 4.0 BUN: 19.0 Creatinine Lvl (s): 0.77 EKG Electrocardiogram (EKG) - Ordered -- 12/28/23 22:11:00 EDT Assessment/Plan Anxiety Fall Hyperlipidemia Hypertension Insomnia Sleep apnea 83-year-old female who is hospital/trauma day #2 after experiencing a fall sustaining LeFort I facial fractures, questionable right ulnar fracture and multiple spinal contusions being managed by neurosurgery. Patient remains weak on her right side but improved from prior. She remains in a hard cervical collar. Otherwise she has no new complaints this morning on tertiary exam. Vital signs have remained stable overnight and she is been afebrile. Saturating 91% on room air. White count is normal with a stable hemoglobin. Electrolytes stable. Plan: -Continue supportive care as ordered. Appreciate blood from all consultants. -Spinal contusions per neurosurgery. -No plans for facial surgery per ENT. -Patient is weightbearing as tolerated to all 4 extremities. -Encourage mobilization as ordered. -Subcu chemical DVT prophylaxis when cleared by neurosurgery. Case discussed with Dr. Humphrey, see addendum to follow. Digitally Signed by TERRY CONNOR on 12/29/2023 08:35 AM [id number] Progress note Date of Service 12/29/2023 Chief Complaint Right sided weakness, facial pain Subjective This is a split shared visit between myself and Dr. Humphrey. Patient resting supine in bed in no acute distress watching TV. Remains hard cervical collar. Denies any new complaints this morning. Continues to have mild facial pain and weakness to her right sidethat is slowly improving. Objective Vitals and Measurements T: 36.8 C (Oral) TMIN: 36.3 C (Oral) TMAX: 36.8 C (Oral) HR: 58 RR: 18 BP: 114/52 SpO2: 92% HT: 170.2 cm WT: 89.6 kg BMI: 30.93 Intake and Output 7AM Yesterday to 7AM Today Intake and Output (Last 24 hours) Intake Administration Information 933.33 Oral Intake 200.00 Output Urine Voided 450.00 Urinary Catheter Output: 600.00 Stool Count 0.00 Total Summary Total Intake 1133.33 Total Output 1050.00 Fluid Balance 83.33 Physical Exam General -alert and oriented x4, answers questions appropriately. In no acute distress. HEENT -facial edema and ecchymosis throughout. Hard cervical collar in place. Cardiovascular -S1-S2, regular rate and rhythm. Respiratory -easy unlabored respirations. Chest rise symmetrical. Abdomen/GI -soft, nontender, bowel sounds present. Nondistended. Musculoskeletal -WATKINS x4. Weakness noted to right side. Psychiatric -calm and cooperative. Skin -normal for ethnicity. Weight Dosing Weight: 89.6 kg (12/28/23) Dosing Weight: 89.6 kg (12/28/23) Medications Medications (16) Active Scheduled: (6) amLODIPine 2.5 mg tablet 2.5 mg 1 tab(s), Oral, qDay atorvastatin 20 mg tablet 20 mg 1 tab(s), Oral, qDay bacitracin topical 500 units/g Ointment TUBE 1 corbin, Topical, TID dexamethasone 4 mg/1 mL solution 4 mg 1 mL, IV Push, q6h pantoprazole 20 mg EC tablet 20 mg 1 tab(s), Oral, BIDAC paroxetine 20 mg tablet 20 mg 1 tab(s), Oral, qDay Continuous: (1) Lactated Ringers 1,000 mL 1,000 mL, Intravenous, 100 mL/hr PRN: (9) albuterol - ipratropium 2.5 mg-0.5 mg/3 mL Inhal Jessi UD 3 mL, Inhalation, q2hRT bisacodyl 10 mg Suppository 10 mg 1 supp, Rectal, qDay dextrose 50% Solution Disp syringe 50 mL 12.5 gram(s) 25 mL, IV Push, AsDirected docusate sodium 100 mg Capsule 100 mg 1 cap(s), Oral, BID magnesium hydroxide 8% Suspension 30 mL UD 30 mL, Oral, qDay morphine 2 mg/mL 1 mL syringe 2 mg 1 mL, IV Push, q3h morphine 4 mg/mL 1mL INJ 4 mg 1 mL, IV Push, q3h ondansetron 2 mg/ 1 mL 2 mL INJ 4 mg 2 mL, IV Push, q4h oxymetazoline nasal 0.05% Hudson 2 spray(s), Nostril, each, Once Lab Results 12/28 05:27 WBC: 6.8 Hgb: 10.5 L Hct: 30.3 L Platelet: 147 L Neutrophil %: 82.3 H Glucose Level: 136 H Sodium Level: 139 Potassium Level: 4.2 BUN: 22.0 Creatinine Lvl (s): 0.78 12/27 22:40 WBC: 6.1 Hgb: 10.7 L Hct: 30.9 L Platelet: 153 Neutrophil %: 83.4 H Protime: 15.3 H PT International Ratio: 1.3 Glucose Level: 144 H Sodium Level: 139 Potassium Level: 4.0 BUN: 19.0 Creatinine Lvl (s): 0.77 EKG Electrocardiogram (EKG) - Ordered -- 12/28/23 22:11:00 EDT Assessment/Plan Anxiety Fall Hyperlipidemia Hypertension Insomnia Sleep apnea 83-year-old female who is hospital/trauma day #2 after experiencing a fall sustaining LeFort I facial fractures, questionable right ulnar fracture and multiple spinal contusions being managed by neurosurgery. Patient remains weak on her right side but improved from prior. She remains in a hard cervical collar. Otherwise she has no new complaints this morning on tertiary exam. Vital signs have remained stable overnight and she is been afebrile. Saturating 91% on room air. White count is normal with a stable hemoglobin. Electrolytes stable. Plan: -Continue supportive care as ordered. Appreciate blood from all consultants. -Spinal contusions per neurosurgery. -No plans for facial surgery per ENT. -Patient is weightbearing as tolerated to all 4 extremities. -Encourage mobilization as ordered. -Subcu chemical DVT prophylaxis when cleared by neurosurgery. Case discussed with Dr. Humphrey, see addendum to follow. Digitally Signed by TERRY CONNOR on 12/29/2023 08:35 AM [id number] Consult note Date of Service 12/28/2023 Reason for Consultation Medical management Referring Physician Dr Jimmie Humphrey History of Present Illness This is an 83-year-old female patient with a past medical history significant for hypertension, sleep apnea with CPAP, hyperlipidemia, anxiety, insomnia, hiatal hernia, peripheral neuropathy, and osteoarthritis who presented to [facility] on 12/26 after a mechanical fall when she lost her footing going down the curb leaving bible study Friday night. Per documentation she did hit her face on the concrete but did not lose consciousness and can recall the events. CT scans done of the head, neck/spine were negative for acute findings, and facial CT did show right sided LeFort type I and nasal fractures. She was transferred to [place] [facility] for the remainder of her trauma workup. She wa s seen by Dr. Fournier in the ER who states the Le Fort and nasal fractures do not require acute attention at this time and she can follow-up with ENT outpatient as needed. 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 MRI cervical spinal did show increased cord signal at the C6 level likely due to acute cordcontusion, and prevertebral edema at C3-T3. MRI thoracic spine redemonstrated mild edema in the prevertebral space extending from the cervical spine through T3. MRI lumbar spine demonstrated fluid signal in the L2-L3 disc with surrounding marrow edema and adjacent edema in the right psoas muscle and surrounding soft tissues. She has been maintained in a hard cervical collar and has been started on dexamethasone per neurosurgery. 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 Patient is seen resting in bed on 5S, arouses easily and currently denies any pain at this time andwas recently medicated. Denies chest pain, palpitations, shortness of breath or wheezing. Denies abdominal pain, nausea, vomiting or recent sick symptoms. She does endorse right arm, hand weakness, as well as right leg/foot weakness and states her strength is mildly improved since the fall. She denies using any assistive devices to ambulate and denies having to hold onto furniture to get around the home. She denies dizziness, lightheadedness before the fall and states she has been in her normalstate of health. She does state that she has not slept well since her hospitalization and believes it to be since she has not taken her Paxil for 2 days. She denies anxiety at this time, or any need for other medications, other than her home Paxil regimen. Lab work reviewed from [facility] from 12/27/2023 showed WBC 6.6, hemoglobin 12, hematocrit 35.7%, platelets 163. Chemistry shows sodium 135, potassium 4.1, chloride 102, glucose 179, BUN 20, creatinine 1.04, AST 15, ALT 21, alk phos 76, calcium 8.6, high-sensitivity troponin 9.1, lactate 1.5. Ethanol level (-). Data collection done by chart review, discussion with patient and nursing staff. Review of Systems I reviewed constitutional, HEENT, cardiovascular, respiratory, GI, , skin, musculoskeletal, neurologic, hematologic, and psychiatric. All systems reviewed and are negative except as noted above in the HPI. Physical Exam Vitals and Measurements T: 36.8 C (Oral) TMIN: 36.8 C (Oral) TMAX: 37.1 C (Oral) HR: 59(Monitored) RR: 17 BP: 130/59 SpO2: 90% HT: 170.2 cm WT: 89.6 kg BMI: 30.93 Weight Dosing Weight: 89.6 kg (12/28/23) Dosing Weight: 89.6 kg (12/28/23) Physical Exam General: No acute distress. Alert and Appropriate Skin: No rash. Warm, Dry, Intact HEENT: Head is normocephalic. Bruising to her face and periorbital areas with dried blood noted. Pupils equal in size. Extraocular movements within normal limits. Mouth: mucosa is moist and pink. Neck: Cervical collar in place. Lungs: Bilaterally clear breath sounds with no crepitation or wheeze. Unlabored Cardiovascular: Heart is regular rhythm, S1S2, No extra-audible heart tones Abdomen: Abdomen is soft, nontender. Rounded/obese. Bowel sounds present. Extremities: No clubbing, cyanosis or edema. Peripheral pulses palpable. Weakness to upper extremities, right> left, weakness to lower extremities, right > left, can feel palpation in BLE. Neurological: The patient is awake, oriented to time, people and place. Following simple commands, moving all extremities. Lab Results No 36 Hour Lab Data Imaging Results and Diagnostics XR Knee 1 or 2 Views Right Result Date: December 28, 2023 Verified By: AURY ZAMARRIPA MD CLINICAL STATEMENT: IMPRESSION: No acute osseous abnormality. XR Hand and Wrist 6 Views Left Result Date: December 28, 2023 Verified By: NEETU BILLINGSLEY MD CLINICAL STATEMENT: IMPRESSION: No acute fracture or dislocation. Possible DISI injury of the wrist. If clinical symptoms persist consider MRIt o evaluate for ligamentous injury. XR Hand Minimum 3 Views Right Result Date: December 28, 2023 Verified By: NEETU BILLINGSLEY MD CLINICAL STATEMENT: IMPRESSION: No acute fracture or dislocation. Chronic healed deformities of the distal radius and ulna. Degenerative changes as above. XR Forearm 2 Views Right Result Date: December 28, 2023 Verified By: NEETU BILLINGSLEY MD CLINICAL STATEMENT: IMPRESSION: Cortical irregularity of the distal ulna not seen on same day hand x-ray is questionably chronic versus acute in nature. This is nondisplaced.Correlate with point tenderness. XR Elbow Minimum 3 Views Left Result Date: December 28, 2023 Verified By: NEETU BILLINGSLEY MD CLINICAL STATEMENT: IMPRESSION: Normal examination of the left elbow. MRI Spine Lumbar w/o Contrast Result Date: December 28, 2023 Verified By: AURY ZAMARRIPA MD CLINICAL STATEMENT: IMPRESSION: 1. Right subarticular inferiorly migrated extrusion at L2-L3 moderately narrows the right lateral recess.2. Fluid signal in the L2-L3 disc with surrounding marrow edema and adjacent edemain the right psoas muscle and surrounding soft tissues. Findings are favored to be degenerative or reactive in nature, however an infectious etiology is within the differential but considered less likely.3. Multilevel degenerative changes as described above. MRI Spine Thoracic w/o Contrast Result Date: December 28, 2023 Verified By: AURY ZAMARRIPA MD CLINICAL STATEMENT: IMPRESSION: 1. Fluid in the L2-3 disc space with surrounding edema and adjacent soft tissue edema. Findings could be degenerative or reactive/posttraumatic.2. There is mild edema in the prevertebral space extending from the cervical spine through T3.3. Multilevel degenerative changes as above. MRI Spine Cervical w/o Contrast Result Date: December 28, 2023 Verified By: AURY ZAMARRIPA MD CLINICAL STATEMENT: IMPRESSION: 1. Multilevel degenerative changes with severe canal stenosis and cord deformity at C5-C6 and moderate to severe canal stenosis at C6-C7.2. Increased cord signal at the C6 level is likelydue to acute cord contusion given history of trauma.3. Prevertebral edema from C4 through T3. This is nonspecific and may be reactive.4. Varying degrees of neural foraminal stenosis as above, severe on the left at C4-C5. CT Spine Lumbar w/o Contrast Result Date: December 28, 2023 Verified By: LAN ORTIZ MD CLINICAL STATEMENT: IMPRESSION: Multilevel degenerative changes is as detailed above. No acute traumatic injury identified. CT Thorax w/o Contrast Result Date: December 28, 2023 Verified By: LAN ORTIZ MD CLINICAL STATEMENT: IMPRESSION: Mild peripheral reticular scarring and or fibrosis with minimal bronchiectasis at the lung bases. Findings could be seen in the setting of chronic interstitial lung disease. No acute traumatic injury identified. EKG Pending collection Assessment/Plan 1. Hypertension Currently 130/59, goal SBP<140, IVF infusing, orthostatic VS Resume home medication; amlodipine Am labs for volume status, electrolytes and renal function 2. Sleep apnea Home CPAP on hold due to facial fractures RA sat 91%, has gone without machine while on vacations in the past 3. Hyperlipidemia Resume home statin, am lipid panel 4. Anxiety 5. Insomnia Resume home Paxil, currently controlled 6. Fall Mechanical fall resulting in LeFort and nasal fracture to f/u with ENT outpatient as needed Denies syncopal episode or loss of consciousness, has total recall of events. MRI (+) C6 cord contusion, C3-T3 prevertebral edema, L2-L3 disc with surrounding marrow edema Started on dexamethasone, cervical hard collar to be worn at all times. NPO pending possible surgical intervention and monitoring, none planned at this time. Recommend PT/OT when able DVT and pain prophylaxis per primary team Labs and diagnostics as noted in HPI Thank you for requesting our participation in the care of your patient. We will continue to follow during hospitalization. Document transcribed with voice recognition and may contain typographical errors Orders: albuterol-ipratropium, Start: 12/28/23 22:50:00 EDT, Dose = 3 mL, Soln, Inhalation, q2hRT, PRN, Shortness of breath or wheezing, 12/28/23 22:50:00 EDT amLODIPine, Start: 12/29/23 9:00:00 EDT, Dose = 2.5 mg, = 1 tab(s), Oral, qDay, Hold if SBP (mmHg) < 110, 0, 12/28/23 23:33:00 EDT atorvastatin, Start: 12/28/23 23:40:00 EDT, Dose = 20 mg, = 1 tab(s), Oral, qDay, 0, 12/28/23 23:33:00 EDT pantoprazole, Start: 12/29/23 6:00:00 EDT, Dose = 20 mg, = 1 tab(s), Oral, BIDAC, 0, 12/28/23 23:33:00 EDT PARoxetine, Start: 12/29/23 0:06:00 EDT, Dose = 20 mg, = 1 tab(s), Oral, qDay, 0, 12/28/23 23:33:00EDT Complete EKG Comments: Entered secondary to EKG order. Electrocardiogram Lipid Profile Orthostatic Vital Signs Problem List/Past Medical History Ongoing No qualifying data Historical No qualifying data Procedure/Surgical History No qualifying data available. Medications Inpatient bacitracin topical ointment, 1 corbin, Topical, TID Colace, 100 mg= 1 cap(s), Oral, BID, PRN dexAMETHasone, 4 mg= 1 mL, IV Push, q6h Dextrose 50% IV Push, 12.5 gram(s)= 25 mL, IV Push, AsDirected, PRN Dulcolax Laxative, 10 mg= 1 supp, Rectal, qDay, PRN LR 1,000 mL, 1000 mL, Intravenous Milk of Magnesia, 30 mL, Oral, qDay, PRN morphine, 2 mg= 1 mL, IV Push, q3h, PRN morphine, 4 mg= 1 mL, IV Push, q3h, PRN oxymetazoline 0.05% nasal spray, 2 spray(s), Nostril, each, Once, PRN Zofran, 4 mg= 2 mL, IV Push, q4h, PRN Home amLODIPine 2.5 mg oral tablet, 2.5 mg= 1 tab(s), Oral, qDay aspirin 81 mg oral delayed release tablet, 81 mg= 1 tab(s), Oral, qDay Lipitor 20 mg oral tablet, 20 mg= 1 tab(s), Oral, qDay Multivitamin, 1 cap(s), Oral, qDay omeprazole 20 mg oral delayed release capsule, 20 mg= 1 cap(s), Oral, qAM Paxil 20 mg oral tablet, 20 mg= 1 tab(s), Oral, qDay Vitamin D3, 50 mcg= 1 tab(s), Oral, qDay Allergies Bee Stings (Bee Stings) Levaquin (rash) penicillin (rash) Social History Smoking Status - 03/23/2012 Patient is non-smoker Immunizations No qualifying data available. Digitally Signed by JORDY BREEN on 12/29/2023 12:36 AM [id number] Orthopaedic surgery Consult note Date of Service 12/28/2023 Reason for Consultation Chronic distal radius fracture, questionable DISI injury Referring Physician Emergency department History of Present Illness Patient is a 83-year-old female who presents to [place] ED after a fall from standing height. Patient states that she fell and hit her head onto the concrete, but did not lose consciousness. Patient is mainly complaining of pain and weakness in the bilateral hands and wrist at this time. X-rays were obtained which demonstrated a chronic distal radius and ulna fracture on the right wrist, as wellas a chronic DISI deformity on the left wrist. Patient denies any numbness, tingling, shortness of breath, chest pain. Review of Systems Review of systems negative unless otherwise stated in the HPI above Physical Exam Vitals and Measurements T: 37.1 C (Oral) HR: 57(Monitored) RR: 16 BP: 148/50 SpO2: 96% WT: 89.6 kg Weight Dosing Weight: 89.6 kg (12/28/23) General: NAD, A&Ox3 HEENT: normocephalic, ecchymosis to bilateral eyes, abrasions over the face, EOMI intact CV: pulses regular throughout, brisk cap refill throughout, no peripheral edema Pulm: normal work of breathing, equal chest rise bilaterally, no intercostal retractions or conversational dyspnea GI: abdomen is soft, nondistended, no rigidity or guarding, patient states that she is numb in the abdomen area Psych: calm and cooperative MS: -C spine: Morton collar in place -Patient is tender palpation in the mid thoracic region -Bilateral clavicle without tenderness to palpation. -Bilateral upper extremities without tenderness with gross palpation. Shoulder, elbow, joints without mechanical block or tenderness with gross range of motion. - Patient states she has pain in her bilateral hands mainly in her fingers, wrists without any tenderness to palpation, no blocks with gross range of motion. -No pelvic tenderness with rocking. -No tenderness to palpation throughout left lower extremity. Hip, Knee, and ankle joints without mechanical block or tenderness. -No plantar ecchymosis. -Vascularly intact to bilateral upper and lower extremities - Patient states that she feels numbness in her abdomen, has sensation down by bilateral feet -Weakness is present in the right upper extremity and right lower extremity, especially with knee flexion extension and radiation protection engineer strength Lab Results No 36 Hour Lab Data Imaging Results and Diagnostics X-rays of the right wrist were reviewed and demonstrate a chronic, healed fracture of the distal radius, as well as a healed fracture of the distal ulna. There are no acute fracture dislocations. X-rays of the left wrist were reviewed and demonstrate a possible chronic DISI injury. There are noother acute fracture dislocations. Assessment/Plan -83-year-old female presents after mechanical fall from standing height. This is a closed, isolatedinjury. Patient is neurovascular intact. 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 Please call with any questions or concerns. - Patient follow-up outpatient with Dr. Del Angel next 1 to 2 weeks - Plan discussed with attending, Dr. Del Angel Problem List/Past Medical History Ongoing No qualifying data Historical No qualifying data Procedure/Surgical History No qualifying data available. Medications Inpatient bacitracin topical ointment, 1 corbin, Topical, TID Colace, 100 mg= 1 cap(s), Oral, BID, PRN Dextrose 50% IV Push, 12.5 gram(s)= 25 mL, IV Push, AsDirected, PRN Dulcolax Laxative, 10 mg= 1 supp, Rectal, qDay, PRN LR 1,000 mL, 1000 mL, Intravenous Milk of Magnesia, 30 mL, Oral, qDay, PRN oxymetazoline 0.05% nasal spray, 2 spray(s), Nostril, each, Once, PRN Home amLODIPine 2.5 mg oral tablet, 2.5 mg= 1 tab(s), Oral, qDay aspirin 81 mg oral delayed release tablet, 81 mg= 1 tab(s), Oral, qDay Lipitor 20 mg oral tablet, 20 mg= 1 tab(s), Oral, qDay Multivitamin, 1 cap(s), Oral, qDay omeprazole 20 mg oral delayed release capsule, 20 mg= 1 cap(s), Oral, qAM Paxil 20 mg oral tablet, 20 mg= 1 tab(s), Oral, qDay Vitamin D3, 50 mcg= 1 tab(s), Oral, qDay Allergies Levaquin (rash) penicillin (rash) Social History Smoking Status - 03/23/2012 Patient is non-smoker Immunizations No qualifying data available. Digitally Signed by STAS ENGEL DO on 12/28/2023 02:16 PM Digitally Signed by STAS ENGEL DO on 12/28/2023 04:02 PM [id number] Neurological surgery Consult note Date of Service 12/28/2023 This is a split/shared consultation with Dr. Barber Reason for Consultation Weakness Referring Physician Dr. Humphrey History of Present Illness This is an 83-year-old female with a past medical history significant for hyperlipidemia, hypertension, depression, and peripheral neuropathy who initially presented to [facility] on 12/27/2023 aftera fall. Patient provides that she was leaving [place] when she stepped off of a curb, lost her footing, and fell face first onto the ground. Denies LOC. Patient notes that she was unable to stand on her own but is unable to provide me with details regarding if she was able to move her extremities immediately after the injury. 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 CT facial bones demonstrated right-sided LeFort type [address] negative for any acute intracranial hemorrhage. CT cervical spine completed at [facility] was negative for any acute osseousabnormality, however did demonstrate multilevel degenerative changes, most significantly at C5-C6. CT head without contrast negative for any acute intracranial abnormality. Patient transferred to [place] ED as a trauma transfer. Additional imaging was obtained. CT thorax was negative for any acute traumatic injuries. CT lumbar spine was negative for any acutetraumatic injury but did show multilevel degenerative changes. Patient was discussed with on-call neurosurgeon who recommended stat MRI imaging. MRI cervical spine demonstrates multilevel degenerative changes with severe canal stenosis and corddeformity at C5-C6 and moderate to severe canal stenosis at C6-C7. There is increased cord signal at the C6 level which is likely due to acute cord contusion given trauma. In addition, prevertebral edema from C3-T3. MRI thoracic spine redemonstrates mild edema in the prevertebral space extending from the cervical spine through T3. In addition, mild degenerative changes. MRI lumbar spine demonstrates fluid signal in the L2-L3 disc with surrounding marrow edema and adjacent edema in the right psoas muscle and surrounding soft tissues. Findings are favored to be degenerative or reactive in nature. There is a right subarticular inferiorly migrated extrusion at L2-L3 which moderately narrows the right lateral recess. Patient was then discussed with Dr. Barber who recommended cervical spine immobilization with Morton Cresson collar, as well as 10 mg dexamethasone, and 4 mg every 6 hours afterwards. Upon evaluation in ED, patient is seen resting in bed with EMS hard collar in place. She has extensive bilateral periorbital edema and ecchymosis, as well as ecchymosis over the dorsum of her nose. Dentures are removed. She is alert, oriented x 4. She is conversing well, her speech is clear and fluent. She is currently complaining of weakness in bilateral hands, worse on the right. In addition, numbness and weakness in the RLE. Patient also provides to me that her abdomen, right hip regions have decreased sensation. Her HPI is somewhat inconsistent. At times she provides that she has numbnessthroughout the abdomen/right hip, and at other times tells me that it feels normal. She denies any neck pain, radicular pain to her arms, or paresthesias in her arms/hands. She does endorse right leg achiness and weakness. Denies any urinary or fecal incontinence/retention. On exam, patient is able to lift BUE off of the bed quite briskly. She does have chronic right shoulder problems and is unable to lift her RUE as high as the left. She has weak bicep and tricep strength bilaterally, good deltoid strength bilaterally. On the right, she has difficulty making a complete fist, weak finger intrinsics. On the left, she is able to make a fist, radiation protection engineer strength is slightly stronger, weak finger intrinsics. Sensation is intact to light touch throughout her upper extremities. Negative Page's sign bilaterally. On exam of BLE, she is able to lift the LLE off of the bed at the hip, bend and flex at the knee, dorsiflex and plantarflex moderately. Sensation is intact to light touch throughout. She is unable to lift RLE off of the bed passively, and unable to flex at the knee. She is able to slightly wiggle her toes, but unable to dorsiflex. When her RLE is lifted off of the bed at the hip,she can only slightly maintain it against gravity before drifts back to the bed. She does have somesensation to about mid calf, but does note significant decrease. 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 On exam of her abdomen, she notes altered sensation/decreased from about the T8 level down to her groin. This is present anteriorly and posteriorly. Review of Systems Constitutional: Denies weight loss, fever, chills, and night sweats. Skin: Denies lesions, rashes, and pruritus. Neurological: See HPI HEENT: See HPI Cardiovascular: Denies chest pain, pressure, and palpitations. Denies history of irregular heart rhythm. Respiratory: Denies shortness of breath, difficulty breathing, cough and hemoptysis. Gastrointestinal: Denies abdominal pain, change in appetite, nausea, vomiting, and diarrhea. Genitourinary: Denies dysuria, incontinence, and hematuria. Musculoskeletal: See HPI Physical Exam Vitals and Measurements T: 37.1 C (Oral) HR: 57(Monitored) RR: 18 BP: 141/51 SpO2: 96% WT: 89.6 kg Weight Dosing Weight: 89.6 kg (12/28/23) General Appearance: 83-year-old female. Awake, alert and oriented. Lying flat in bed withhard cervical collar in place. She does appear uncomfortable. Appears stated age. Skin: Skin is warm and dry. See HPI. Neurological: See HPI. HEENT: Head is normocephalic. PERRLA, EOMI. Cardiovascular: Regular heart rate and rhythm. S1, S2 present. Respiratory: Respirations even and unlabored. Lungs are diminished bilaterally. No signs of respiratory distress. Gastrointestinal: Abdomen is obese, soft and symmetric. No abdominal tenderness or distention with palpation. Bowel sounds normoactive in all four quadrants. Genitourinary: External female catheter present. Imaging Results and Diagnostics XR Knee 1 or 2 Views Right Result Date: December 28, 2023 Verified By: AURY ZAMARRIPA MD CLINICAL STATEMENT: IMPRESSION: No acute osseous abnormality. XR Hand and Wrist 6 Views Left Result Date: December 28, 2023 Verified By: NEETU BILLINGSLEY MD CLINICAL STATEMENT: IMPRESSION: No acute fracture or dislocation. Possible DISI injury of the wrist. If clinical symptoms persist consider MRIto evaluate for ligamentous injury. XR Hand Minimum 3 Views Right Result Date: December 28, 2023 Verified By: NEETU BILLINGSLEY MD CLINICAL STATEMENT: IMPRESSION: No acute fracture or dislocation. Chronic healed deformities of the distal radius and ulna. Degenerative changes as above. XR Forearm 2 Views Right Result Date: December 28, 2023 Verified By: NEETU BILLINGSLEY MD CLINICAL STATEMENT: IMPRESSION: Cortical irregularity of the distal ulna not seen on same day hand x-ray isquestionablychronic versus acute in nature. This is nondisplaced.Correlate with point tenderness. XR Elbow Minimum 3 Views Left Result Date: December 28, 2023 Verified By: NEETU BILLINGSLEY MD CLINICAL STATEMENT: IMPRESSION: Normal examination of the left elbow. MRI Spine Lumbar w/o Contrast Result Date: December 28, 2023 Verified By: AURY ZAMARRIPA MD CLINICAL STATEMENT: IMPRESSION: 1. Right subarticular inferiorly migrated extrusion at L2-L3 moderatelynarrows the right lateral recess.2. Fluid signal in the L2-L3 disc with surrounding marrow edema and adjacentedema in the right psoas muscle and surrounding soft tissues. Findings arefavored to be degenerative or reactive in nature, however an infectiousetiology is within the differential but considered less likely.3. Multilevel degenerative changes as described above. MRI Spine Thoracic w/o Contrast Result Date: December 28, 2023 Verified By: AURY ZAMARRIPA MD CLINICAL STATEMENT: IMPRESSION: 1. Fluid in the L2-3 disc space with surrounding edema and adjacent softtissue edema. Findings could be degenerative or reactive/posttraumatic.2. There is mild edema in the prevertebral space extending from the cervicalspine through T3.3. Multilevel degenerative changes as above. MRI Spine Cervical w/o Contrast Result Date: December 28, 2023 Verified By: AURY ZAMARRIPA MD CLINICAL STATEMENT: IMPRESSION: 1. Multilevel degenerative changes with severe canal stenosis and corddeformity at C5-C6 and moderate to severe canal stenosis at C6-C7.2. Increased cord signal at the C6 level is likely due to acute cordcontusion given history of trauma.3. Prevertebral edema from C4 through T3. This isnonspecific and may bereactive.4. Varying degrees of neural foraminal stenosis as above, severe on the leftat C4-C5. CT Spine Lumbar w/o Contrast Result Date: December 28, 2023 Verified By: LAN ORTIZ MD CLINICAL STATEMENT: IMPRESSION: Multilevel degenerative changes is as detailed above. No acute traumaticinjury identified. CT Thorax w/o Contrast Result Date: December 28, 2023 Verified By: LAN ORTIZ MD CLINICAL STATEMENT: IMPRESSION: Mild peripheral reticular scarring and or fibrosis with minimalbronchiectasis at the lung bases. Findings could be seen in the setting ofchronic interstitial lung disease. No acute traumatic injury identified. Assessment/Plan Central cord syndrome s/p fall Incomplete spinal cord injury This is an 83-year-old female who suffered a fall after losing her footing stepping off of a curb, causing her to fall forward, striking her face on the ground. Upon evaluation in the ED, patient wasnoted to be weak/without movement in her bilateral hands and RLE. MRIs of the cervical, thoracic, and lumbar spine were obtained for further evaluation. MRI cervical spine demonstrates multilevel degenerative changes with severe canal stenosis and corddeformity at C5-C6 and moderate to severe canal stenosis at C6-C7. There is increased cord signal at the C6 level which is likely due to acute cord contusion given trauma. In addition, prevertebral edema from C3-T3. MRI thoracic spine redemonstrates mild edema in the prevertebral space extending from the cervical spine through T3. In addition, mild degenerative changes. MRI lumbar spine demonstrates fluid signal in the L2-L3 disc with surrounding marrow edema and adjacent edema in the right psoas muscle and surrounding soft tissues. Findings are favored to be degenerative or reactive in nature. There is a right subarticular inferiorly migrated extrusion at L2-L3 which moderately narrows the right lateral recess. Dr. Barber recommended 10 mg dexamethasone IV push, followed by 4 mg every 6 hours. Upon eval in the ED, patient noted to be in hard cervical collar. On my exam, she is lying flat. Patient is moving bilateral upper extremities, does have significant weakness with right hand grasp and finger intrinsics, stronger on the left. Sensation intact. She is moving LLE spontaneously withoutdifficulty. Unable to lift RLE off of the bed at the hip or bend at the knee passively. Also difficulty with dorsiflexion and plantarflexion. RLE appears rigid. Slightly able to hold off the bed against gravity. Has decreased sensation throughout the RLE, more numbness from mid calf to her foot. In addition, patient notes altered sensation to light touch from about the T8 level down to her buttock, anteriorly and posteriorly. Has full sensation above. At this time, patient to remain in hard cervical collar at all times. Patient also to remain n.p.o. until it is clear that she will not require surgical intervention. Per ED team, patient has had slight improvement with steroid administration. Patient is unsure if she has had improvement. Patient does take 81 mg aspirin at home daily. She is unable to provide why she takes this medication. Last dose was 12/26/2023 in the evening. Thank you for the consultation. Neurosurgery will continue to follow along. Please see Dr. Barber's addendum for further details regarding neurosurgical assessment and plan of care. Problem List/Past Medical History see HPI Procedure/Surgical History No qualifying data available. Medications Inpatient bacitracin topical ointment, 1 corbin, Topical, TID Colace, 100 mg= 1 cap(s), Oral, BID, PRN dexAMETHasone, 4 mg= 1 mL, IV Push, q6h Dextrose 50% IV Push, 12.5 gram(s)= 25 mL, IV Push, AsDirected, PRN Dulcolax Laxative, 10 mg= 1 supp, Rectal, qDay, PRN LR 1,000 mL, 1000 mL, Intravenous Milk of Magnesia, 30 mL, Oral, qDay, PRN oxymetazoline 0.05% nasal spray, 2 spray(s), Nostril, each, Once, PRN Home amLODIPine 2.5 mg oral tablet, 2.5 mg= 1 tab(s), Oral, qDay aspirin 81 mg oral delayed release tablet, 81 mg= 1 tab(s), Oral, qDay Lipitor 20 mg oral tablet, 20 mg= 1 tab(s), Oral, qDay Multivitamin, 1 cap(s), Oral, qDay omeprazole 20 mg oral delayed release capsule, 20 mg= 1 cap(s), Oral, qAM Paxil 20 mg oral tablet, 20 mg= 1 tab(s), Oral, qDay Vitamin D3, 50 mcg= 1 tab(s), Oral, qDay Allergies Levaquin (rash) penicillin (rash) Social History Smoking Status - 03/23/2012 Patient is non-smoker Patient lives at home with her . She denies any tobacco use, alcohol use or illicit drug use. Has an adult daughter and an adult son. Digitally Signed by MAX ROB on 12/28/2023 04:03 PM [id number] Neurological surgery Consult note Date of Service 12/28/2023 This is a split/shared consultation with Dr. Barber Reason for Consultation Weakness Referring Physician Dr. Humphrey History of Present Illness This is an 83-year-old female with a past medical history significant for hyperlipidemia, hypertension, depression, and peripheral neuropathy who initially presented to [facility] on 12/27/2023 aftera fall. Patient provides that she was leaving [place] when she stepped off of a curb, lost her footing, and fell face first onto the ground. Denies LOC. Patient notes that she was unable to stand on her own but is unable to provide me with details regarding if she was able to move her extremities immediately after the injury. 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 CT facial bones demonstrated right-sided LeFort type [address] negative for any acute intracranial hemorrhage. CT cervical spine completed at [facility] was negative for any acute osseousabnormality, however did demonstrate multilevel degenerative changes, most significantly at C5-C6. CT head without contrast negative for any acute intracranial abnormality. Patient transferred to [place] ED as a trauma transfer. Additional imaging was obtained. CT thorax was negative for any acute traumatic injuries. CT lumbar spine was negative for any acutetraumatic injury but did show multilevel degenerative changes. Patient was discussed with on-call neurosurgeon who recommended stat MRI imaging. MRI cervical spine demonstrates multilevel degenerative changes with severe canal stenosis and corddeformity at C5-C6 and moderate to severe canal stenosis at C6-C7. There is increased cord signal at the C6 level which is likely due to acute cord contusion given trauma. In addition, prevertebral edema from C3-T3. MRI thoracic spine redemonstrates mild edema in the prevertebral space extending from the cervical spine through T3. In addition, mild degenerative changes. MRI lumbar spine demonstrates fluid signal in the L2-L3 disc with surrounding marrow edema and adjacent edema in the right psoas muscle and surrounding soft tissues. Findings are favored to be degenerative or reactive in nature. There is a right subarticular inferiorly migrated extrusion at L2-L3 which moderately narrows the right lateral recess. Patient was then discussed with Dr. Barber who recommended cervical spine immobilization with Morton Cresson collar, as well as 10 mg dexamethasone, and 4 mg every 6 hours afterwards. Upon evaluation in ED, patient is seen resting in bed with EMS hard collar in place. She has extensive bilateral periorbital edema and ecchymosis, as well as ecchymosis over the dorsum of her nose. Dentures are removed. She is alert, oriented x 4. She is conversing well, her speech is clear and fluent. She is currently complaining of weakness in bilateral hands, worse on the right. In addition, numbness and weakness in the RLE. Patient also provides to me that her abdomen, right hip regions have decreased sensation. Her HPI is somewhat inconsistent. At times she provides that she has numbnessthroughout the abdomen/right hip, and at other times tells me that it feels normal. She denies any neck pain, radicular pain to her arms, or paresthesias in her arms/hands. She does endorse right leg achiness and weakness. Denies any urinary or fecal incontinence/retention. On exam, patient is able to lift BUE off of the bed quite briskly. She does have chronic right shoulder problems and is unable to lift her RUE as high as the left. She has weak bicep and tricep strength bilaterally, good deltoid strength bilaterally. On the right, she has difficulty making a complete fist, weak finger intrinsics. On the left, she is able to make a fist, radiation protection engineer strength is slightly stronger, weak finger intrinsics. Sensation is intact to light touch throughout her upper extremities. Negative Page's sign bilaterally. On exam of BLE, she is able to lift the LLE off of the bed at the hip, bend and flex at the knee, dorsiflex and plantarflex moderately. Sensation is intact to light touch throughout. She is unable to lift RLE off of the bed passively, and unable to flex at the knee. She is able to slightly wiggle her toes, but unable to dorsiflex. When her RLE is lifted off of the bed at the hip,she can only slightly maintain it against gravity before drifts back to the bed. She does have somesensation to about mid calf, but does note significant decrease. 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 On exam of her abdomen, she notes altered sensation/decreased from about the T8 level down to her groin. This is present anteriorly and posteriorly. Review of Systems Constitutional: Denies weight loss, fever, chills, and night sweats. Skin: Denies lesions, rashes, and pruritus. Neurological: See HPI HEENT: See HPI Cardiovascular: Denies chest pain, pressure, and palpitations. Denies history of irregular heart rhythm. Respiratory: Denies shortness of breath, difficulty breathing, cough and hemoptysis. Gastrointestinal: Denies abdominal pain, change in appetite, nausea, vomiting, and diarrhea. Genitourinary: Denies dysuria, incontinence, and hematuria. Musculoskeletal: See HPI Physical Exam Vitals and Measurements T: 37.1 C (Oral) HR: 57(Monitored) RR: 18 BP: 141/51 SpO2: 96% WT: 89.6 kg Weight Dosing Weight: 89.6 kg (12/28/23) General Appearance: 83-year-old female. Awake, alert and oriented. Lying flat in bed withhard cervical collar in place. She does appear uncomfortable. Appears stated age. Skin: Skin is warm and dry. See HPI. Neurological: See HPI. HEENT: Head is normocephalic. PERRLA, EOMI. Cardiovascular: Regular heart rate and rhythm. S1, S2 present. Respiratory: Respirations even and unlabored. Lungs are diminished bilaterally. No signs of respiratory distress. Gastrointestinal: Abdomen is obese, soft and symmetric. No abdominal tenderness or distention with palpation. Bowel sounds normoactive in all four quadrants. Genitourinary: External female catheter present. Imaging Results and Diagnostics XR Knee 1 or 2 Views Right Result Date: December 28, 2023 Verified By: AURY ZAMARRIPA MD CLINICAL STATEMENT: IMPRESSION: No acute osseous abnormality. XR Hand and Wrist 6 Views Left Result Date: December 28, 2023 Verified By: NEETU BILLINGSLEY MD CLINICAL STATEMENT: IMPRESSION: No acute fracture or dislocation. Possible DISI injury of the wrist. If clinical symptoms persist consider MRIto evaluate for ligamentous injury. XR Hand Minimum 3 Views Right Result Date: December 28, 2023 Verified By: NEETU BILLINGSLEY MD CLINICAL STATEMENT: IMPRESSION: No acute fracture or dislocation. Chronic healed deformities of the distal radius and ulna. Degenerative changes as above. XR Forearm 2 Views Right Result Date: December 28, 2023 Verified By: NEETU BILLINGSLEY MD CLINICAL STATEMENT: IMPRESSION: Cortical irregularity of the distal ulna not seen on same day hand x-ray isquestionablychronic versus acute in nature. This is nondisplaced.Correlate with point tenderness. XR Elbow Minimum 3 Views Left Result Date: December 28, 2023 Verified By: NEETU BILLINGSLEY MD CLINICAL STATEMENT: IMPRESSION: Normal examination of the left elbow. MRI Spine Lumbar w/o Contrast Result Date: December 28, 2023 Verified By: AURY ZAMARRIPA MD CLINICAL STATEMENT: IMPRESSION: 1. Right subarticular inferiorly migrated extrusion at L2-L3 moderatelynarrows the right lateral recess.2. Fluid signal in the L2-L3 disc with surrounding marrow edema and adjacentedema in the right psoas muscle and surrounding soft tissues. Findings arefavored to be degenerative or reactive in nature, however an infectiousetiology is within the differential but considered less likely.3. Multilevel degenerative changes as described above. MRI Spine Thoracic w/o Contrast Result Date: December 28, 2023 Verified By: AURY ZAMARRIPA MD CLINICAL STATEMENT: IMPRESSION: 1. Fluid in the L2-3 disc space with surrounding edema and adjacent softtissue edema. Findings could be degenerative or reactive/posttraumatic.2. There is mild edema in the prevertebral space extending from the cervicalspine through T3.3. Multilevel degenerative changes as above. MRI Spine Cervical w/o Contrast Result Date: December 28, 2023 Verified By: AURY ZAMARRIPA MD CLINICAL STATEMENT: IMPRESSION: 1. Multilevel degenerative changes with severe canal stenosis and corddeformity at C5-C6 and moderate to severe canal stenosis at C6-C7.2. Increased cord signal at the C6 level is likely due to acute cordcontusion given history of trauma.3. Prevertebral edema from C4 through T3. This isnonspecific and may bereactive.4. Varying degrees of neural foraminal stenosis as above, severe on the leftat C4-C5. CT Spine Lumbar w/o Contrast Result Date: December 28, 2023 Verified By: LAN ORTIZ MD CLINICAL STATEMENT: IMPRESSION: Multilevel degenerative changes is as detailed above. No acute traumaticinjury identified. CT Thorax w/o Contrast Result Date: December 28, 2023 Verified By: LAN ORTIZ MD CLINICAL STATEMENT: IMPRESSION: Mild peripheral reticular scarring and or fibrosis with minimalbronchiectasis at the lung bases. Findings could be seen in the setting ofchronic interstitial lung disease. No acute traumatic injury identified. Assessment/Plan Central cord syndrome s/p fall Incomplete spinal cord injury This is an 83-year-old female who suffered a fall after losing her footing stepping off of a curb, causing her to fall forward, striking her face on the ground. Upon evaluation in the ED, patient wasnoted to be weak/without movement in her bilateral hands and RLE. MRIs of the cervical, thoracic, and lumbar spine were obtained for further evaluation. MRI cervical spine demonstrates multilevel degenerative changes with severe canal stenosis and corddeformity at C5-C6 and moderate to severe canal stenosis at C6-C7. There is increased cord signal at the C6 level which is likely due to acute cord contusion given trauma. In addition, prevertebral edema from C3-T3. MRI thoracic spine redemonstrates mild edema in the prevertebral space extending from the cervical spine through T3. In addition, mild degenerative changes. MRI lumbar spine demonstrates fluid signal in the L2-L3 disc with surrounding marrow edema and adjacent edema in the right psoas muscle and surrounding soft tissues. Findings are favored to be degenerative or reactive in nature. There is a right subarticular inferiorly migrated extrusion at L2-L3 which moderately narrows the right lateral recess. Dr. Barber recommended 10 mg dexamethasone IV push, followed by 4 mg every 6 hours. Upon eval in the ED, patient noted to be in hard cervical collar. On my exam, she is lying flat. Patient is moving bilateral upper extremities, does have significant weakness with right hand grasp and finger intrinsics, stronger on the left. Sensation intact. She is moving LLE spontaneously withoutdifficulty. Unable to lift RLE off of the bed at the hip or bend at the knee passively. Also difficulty with dorsiflexion and plantarflexion. RLE appears rigid. Slightly able to hold off the bed against gravity. Has decreased sensation throughout the RLE, more numbness from mid calf to her foot. In addition, patient notes altered sensation to light touch from about the T8 level down to her buttock, anteriorly and posteriorly. Has full sensation above. At this time, patient to remain in hard cervical collar at all times. Patient also to remain n.p.o. until it is clear that she will not require surgical intervention. Per ED team, patient has had slight improvement with steroid administration. Patient is unsure if she has had improvement. Patient does take 81 mg aspirin at home daily. She is unable to provide why she takes this medication. Last dose was 12/26/2023 in the evening. Thank you for the consultation. Neurosurgery will continue to follow along. Please see Dr. Barber's addendum for further details regarding neurosurgical assessment and plan of care. Problem List/Past Medical History see HPI Procedure/Surgical History No qualifying data available. Medications Inpatient bacitracin topical ointment, 1 corbin, Topical, TID Colace, 100 mg= 1 cap(s), Oral, BID, PRN dexAMETHasone, 4 mg= 1 mL, IV Push, q6h Dextrose 50% IV Push, 12.5 gram(s)= 25 mL, IV Push, AsDirected, PRN Dulcolax Laxative, 10 mg= 1 supp, Rectal, qDay, PRN LR 1,000 mL, 1000 mL, Intravenous Milk of Magnesia, 30 mL, Oral, qDay, PRN oxymetazoline 0.05% nasal spray, 2 spray(s), Nostril, each, Once, PRN Home amLODIPine 2.5 mg oral tablet, 2.5 mg= 1 tab(s), Oral, qDay aspirin 81 mg oral delayed release tablet, 81 mg= 1 tab(s), Oral, qDay Lipitor 20 mg oral tablet, 20 mg= 1 tab(s), Oral, qDay Multivitamin, 1 cap(s), Oral, qDay omeprazole 20 mg oral delayed release capsule, 20 mg= 1 cap(s), Oral, qAM Paxil 20 mg oral tablet, 20 mg= 1 tab(s), Oral, qDay Vitamin D3, 50 mcg= 1 tab(s), Oral, qDay Allergies Levaquin (rash) penicillin (rash) Social History Smoking Status - 03/23/2012 Patient is non-smoker Patient lives at home with her . She denies any tobacco use, alcohol use or illicit drug use. Has an adult daughter and an adult son. Digitally Signed by MAX ROB on 12/28/2023 04:03 PM [id number] Note ORIGINAL EXAMINATION: TWO XRAY VIEWS OF THE RIGHT KNEE 12/28/2023 2:37 pm COMPARISON: None. HISTORY: ORDERING SYSTEM PROVIDED HISTORY: Reason for Exam: pain FINDINGS: A knee prosthesis is identified. The components appear well seated and intact. No acute fracture or dislocation is identified. Chronic appearing changes of the patella. Vascular calcifications in the soft tissues. IMPRESSION: No acute osseous abnormality. Interpreted by: Aury Zamarripa MD Preliminary Report By: Aury Zamarripa MD Electronically signed By Aury Zamarripa MD Dictated Date: 12/28/2023 2:58:57 PM Prelim Date: 12/28/2023 2:59:57 PM Sign Date: 12/28/2023 2:59:57 PM Ordering Provider: [facility]03-24-2024 Evaluation + Plan noteExtracted from: Title:History and Physical Author:GERALDINE HUMPHREY JR, MD Date:12/28/23 Fall Injury is noted with spinal cord contusion and facial fracture. Question of orthopedic injuries as noted in the history of present illness. At this time we will admit the patient for frequent neurochecks. Does not need to go to the intensive care unit. Neurosurgery and orthopedic surgery have been consulted. She was already seen by ENT in the emergency department and no further investigation or surgery has been recommended. Orders: Bed Request - Admit Future Appointments Appointment Date:02/03/2024 01:00:00 PM Scheduled Provider:DAISY BARBER MD Location:[facility] Appointment Type:[facility] 03-24-2024 Orthopaedic surgery Consult note Date of Service 12/28/2023 Reason for Consultation Chronic distal radius fracture, questionable DISI injury Referring Physician Emergency department History of Present Illness Patient is a 83-year-old female who presents to [place] ED after a fall from standing height. Patient states that she fell and hit her head onto the concrete, but did not lose consciousness. Patient is mainly complaining of pain and weakness in the bilateral hands and wrist at this time. X-rays were obtained which demonstrated a chronic distal radius and ulna fracture on the right wrist, as well as a chronic DISI deformity on the left wrist. Patient denies any numbness, tingling, shortness of breath, chest pain. Review of Systems Review of systems negative unless otherwise stated in the HPI above Physical Exam Vitals and Measurements T: 37.1 C (Oral) HR: 57(Monitored) RR: 16 BP: 148/50 SpO2: 96% WT: 89.6 kg Weight Dosing Weight: 89.6 kg (12/28/23) General: NAD, A&Ox3 HEENT: normocephalic, ecchymosis to bilateral eyes, abrasions over the face, EOMI intact CV: pulses regular throughout, brisk cap refill throughout, no peripheral edema Pulm: normal work of breathing, equal chest rise bilaterally, no intercostal retractions or conversational dyspnea GI: abdomen is soft, nondistended, no rigidity or guarding, patient states that she is numb in the abdomen area Psych: calm and cooperative MS: -C spine: Morton collar in place -Patient is tender palpation in the mid thoracic region -Bilateral clavicle without tenderness to palpation. -Bilateral upper extremities without tenderness with gross palpation. Shoulder, elbow, joints without mechanical block or tenderness with gross range of motion. - Patient states she has pain in her bilateral hands mainly in her fingers, wrists without any tenderness to palpation, no blocks with gross range of motion. -No pelvic tenderness with rocking. -No tenderness to palpation throughout left lower extremity. Hip, Knee, and ankle joints without mechanical block or tenderness. -No plantar ecchymosis. -Vascularly intact to bilateral upper and lower extremities - Patient states that she feels numbness in her abdomen, has sensation down by bilateral feet -Weakness is present in the right upper extremity and right lower extremity, especially with knee flexion extension and radiation protection engineer strength Lab Results No 36 Hour Lab Data Imaging Results and Diagnostics X-rays of the right wrist were reviewed and demonstrate a chronic, healed fracture of the distal radius, as well as a healed fracture of the distal ulna. There are no acute fracture dislocations. X-rays of the left wrist were reviewed and demonstrate a possible chronic DISI injury. There are noother acute fracture dislocations. Assessment/Plan -83-year-old female presents after mechanical fall from standing height. This is a closed, isolatedinjury. Patient is neurovascular intact. 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 Please call with any questions or concerns. - Patient follow-up outpatient with Dr. Del Angel next 1 to 2 weeks - Plan discussed with attending, Dr. Del Angel Problem List/Past Medical History Ongoing No qualifying data Historical No qualifying data Procedure/Surgical History No qualifying data available. Medications Inpatient bacitracin topical ointment, 1 corbin, Topical, TID Colace, 100 mg= 1 cap(s), Oral, BID, PRN Dextrose 50% IV Push, 12.5 gram(s)= 25 mL, IV Push, AsDirected, PRN Dulcolax Laxative, 10 mg= 1 supp, Rectal, qDay, PRN LR 1,000 mL, 1000 mL, Intravenous Milk of Magnesia, 30 mL, Oral, qDay, PRN oxymetazoline 0.05% nasal spray, 2 spray(s), Nostril, each, Once, PRN Home amLODIPine 2.5 mg oral tablet, 2.5 mg= 1 tab(s), Oral, qDay aspirin 81 mg oral delayed release tablet, 81 mg= 1 tab(s), Oral, qDay Lipitor 20 mg oral tablet, 20 mg= 1 tab(s), Oral, qDay Multivitamin, 1 cap(s), Oral, qDay omeprazole 20 mg oral delayed release capsule, 20 mg= 1 cap(s), Oral, qAM Paxil 20 mg oral tablet, 20 mg= 1 tab(s), Oral, qDay Vitamin D3, 50 mcg= 1 tab(s), Oral, qDay Allergies Levaquin (rash) penicillin (rash) Social History Smoking Status - 03/23/2012 Patient is non-smoker Immunizations No qualifying data available. Digitally Signed by STAS ENGEL DO on 12/28/2023 02:16 PM Digitally Signed by STAS ENGEL DO on 12/28/2023 04:02 PM [id number] History and physical note Date of Service 12/28/2023 Chief Complaint I fell History of Present Illness This is an 83-year-old woman who stepped off a curb and fell forward. Hit her face on the pavement.Did not lose consciousness. Remembers the incident. Was brought to [facility] [place] and had a CT scan done of the head and neck which were negative. The trauma workup with troponin was negative however she complained of lower extremity weakness especially on the right side as well as some right upper extremity weakness. Was transferred here. MRIs were performed of the spinal column whichshowed a probable acute contusion at the C6 level. There is some edema noted between L2 and L3 as well as some edema from L4-T3. Complaining of again lower extremity weakness and some right hand weakness. Lower extremity weakness on the right side. Neurosurgery was contacted by the ED and they gaveher a dose of steroids. We have been in discussion with the neurosurgical nurse practitioner as we have been told to keep her flat until she is evaluated by the neurosurgical attending. Also has a LeFort I fracture has been seen by ENT in the emergency department. They recommended no therapy at this time and follow-up in the office. She is being admitted because of 2 system trauma. Please note that also x-rays were done of her right forearm which shows a questionable distal ulnar fracture however I doubt this is significant. Left hand films show a question of a DISI deformity and has been recommended that she have an MRI if this is clinically indicated. Review of Systems 14 system review. Please see HPI for pertinent positives. Physical Exam Vitals and Measurements T: 37.1 C (Oral) HR: 59(Monitored) RR: 16 BP: 151/51 SpO2: 92% WT: 89.6 kg Weight Dosing Weight: 89.6 kg (12/28/23) General: Patient is awake and alert in bed. In no apparent distress. Able to speak in full sentences. Collar in place. Neurological: GCS of 15. HEENT: Head appears normocephalic. Bruising to her face and periorbital areas. PERRLA. Bite aligns anatomically normal for the patient. Sclerae anicteric. Mucous membranes moist and pink. Neck: cervical collar in place. This was not removed because of the patient's injuries. Cardiovascular: Regular rate and rhythm. S1-S2 present. Lungs: Chest is symmetrical. Respirations unlabored. Clear to auscultation throughout. Chest: No obvious deformities or wounds. No crepitus with palpation. Back: No pain with palpation to the midline. No abrasion or ecchymosis. Abdomen: Soft. Nontender. Bowel sounds active. Skin: Normal color for ethnicity. No pallor or diaphoresis. No jaundice. Psychiatric: Calm and cooperative. Patient has weakness in her lower extremities on the right side with difficulty lifting her leg andpushing down with her foot. Does feel me touch when I get up to about mid calf however she states that she has a history of neuropathy and is not certain of the etiology. 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 Lab Results No 36 Hour Lab Data Assessment/Plan Fall Injury is noted with spinal cord contusion and facial fracture. Question of orthopedic injuries as noted in the history of present illness. At this time we will admit the patient for frequent neurochecks. Does not need to go to the intensive care unit. Neurosurgery and orthopedic surgery have been consulted. She was already seen by ENT in the emergency department and no further investigation or surgery has been recommended. Orders: Bed Request - Admit Problem List/Past Medical History Ongoing No qualifying data Historical No qualifying data History of hypertension. Also history of acid reflux and anxiety. Procedure/Surgical History No qualifying data available. Medications Home Medications (7) Active amLODIPine 2.5 mg oral tablet 2.5 mg = 1 tab(s), Oral, qDay aspirin 81 mg oral delayed release tablet 81 mg = 1 tab(s), Oral, qDay Lipitor 20 mg oral tablet 20 mg = 1 tab(s), Oral, qDay Multivitamin 1 cap(s), Oral, qDay omeprazole 20 mg oral delayed release capsule 20 mg = 1 cap(s), Oral, qAM Paxil 20 mg oral tablet 20 mg = 1 tab(s), Oral, qDay Vitamin D3 50 mcg = 1 tab(s), Oral, qDay Allergies Levaquin (rash) penicillin (rash) Social History Smoking Status - 03/23/2012 Patient is non-smoker Patient denies excessive alcohol use. Family History Reviewed and noncontributory to this encounter. Immunizations No qualifying data available. Code Status Code Status - Ordered -- 12/28/23 9:45:00 EDT, Full Code, Constant Order Digitally Signed by JIMMIE HUMPHREY JR, MD on 12/28/2023 12:15 PM [id number] Note ORIGINAL EXAMINATION: 6 XRAY VIEWS OF THE LEFT HAND AND WRIST 12/28/2023 10:48 am COMPARISON: None. HISTORY: ORDERING SYSTEM PROVIDED HISTORY: Reason for Exam: fall FINDINGS: Radiographs of the left hand and wrist demonstrate no acute fracture or dislocation. There is joint space loss and osteophyte formation of the DIP joint of the 1st digit. The carpal bones demonstrate an increased scapholunate angle of 68 degrees concerning for possible DISI injury. IMPRESSION: No acute fracture or dislocation. Possible DISI injury of the wrist. If clinical symptoms persist consider MRI to evaluate for ligamentous injury. Interpreted by: Neetu Billingsley MD Preliminary Report By: Neetu Billingsley MD Electronically signed By Neetu Billingsley MD Dictated Date: 12/28/2023 11:07:26 AM Prelim Date: 12/28/2023 11:09:33 AM Sign Date: 12/28/2023 11:09:33 AM Ordering Provider: [facility]03-24-2024 Note ORIGINAL EXAMINATION: THREE XRAY VIEWS OF THE LEFT ELBOW 12/28/2023 10:44 am COMPARISON: None. HISTORY: ORDERING SYSTEM PROVIDED HISTORY: Reason for Exam: fall FINDINGS: Three views of the left elbow were obtained. There is no radiographic evidence of joint effusion. The underlying osseous structures appear well mineralized and demonstrate no evidence of fracture or dislocation. No significant soft tissue swelling is seen. No radiopaque foreign body is seen. IMPRESSION: Normal examination of the left elbow. Interpreted by: Neetu Billingsley MD Preliminary Report By: Neetu Billingsley MD Electronically signed By Neetu Billingsley MD Dictated Date: 12/28/2023 11:05:53 AM Prelim Date: 12/28/2023 11:07:15 AM Sign Date: 12/28/2023 11:07:15 AM Ordering Provider: [facility]03-24-2024 Note ORIGINAL EXAMINATION: TWO XRAY VIEWS OF THE RIGHT FOREARM 12/28/2023 10:42 am COMPARISON: Hand x-rays of the same date.. HISTORY: ORDERING SYSTEM PROVIDED HISTORY: Reason for Exam: fall FINDINGS: No acute fracture or dislocation is seen of the right forearm. Chronic deformities of the distal radius and ulna are seen as described on same day x-rays of the hand. The distal ulnar diaphysis demonstrates a nondisplaced cortical irregularity not seen on hand x-ray which may represent chronic or acute injury. Visualized aspects of the elbow are intact. IMPRESSION: Cortical irregularity of the distal ulna not seen on same day hand x-ray is questionably chronic versus acute in nature. This is nondisplaced. Correlate with point tenderness. Interpreted by: Neetu Billingsley MD Preliminary Report By: Neetu Billingsley MD Electronically signed By Neetu Billingsley MD Dictated Date: 12/28/2023 11:04:06 AM Prelim Date: 12/28/2023 11:05:42 AM Sign Date: 12/28/2023 11:05:42 AM Ordering Provider: [facility]03-24-2024 Note ORIGINAL EXAMINATION: THREE XRAY VIEWS OF THE RIGHT HAND 12/28/2023 10:40 am COMPARISON: None. HISTORY: ORDERING SYSTEM PROVIDED HISTORY: Reason for Exam: fall FINDINGS: There is decreased radiographic bone mineral density. No visualized acute fracture or dislocation is seen. There are chronic healed deformities of the distal radius and ulna indicative of prior healed fracture. Well corticated and healed prior ulnar styloid avulsion injury is seen. Multifocal DIP joint space loss and osteophyte formation is seen. No significant soft tissue swelling is seen. No radiopaque foreign body. IMPRESSION: No acute fracture or dislocation. Chronic healed deformities of the distal radius and ulna. Degenerative changes as above. Interpreted by: Neetu Billingsley MD Preliminary Report By: Neetu Billingsley MD Electronically signed By Neetu Billingsley MD Dictated Date: 12/28/2023 10:54:09 AM Prelim Date: 12/28/2023 10:59:57 AM Sign Date: 12/28/2023 10:59:57 AM Ordering Provider: [facility]03-24-2024 Otolaryngology Consult note 83-year-old female was transferred from [facility] after a mechanical fall in which she struck her face. The patient is edentulous and reports that her dentures were broken during the fall. A CAT scan was obtained at that institution and reportedly demonstrates a LeFort I fracture and a nasal fracture. She had a small late nasal laceration that was repaired at that institution. She was transferred due to concerns of weakness in the left lower extremity. Exam: The patient is lying completely supine with a hard cervical collar on her neck. She has bilateral periorbital ecchymosis and ecchymosis over the dorsum of the nose. There is moderate mid facialedema. She is conversant and alert and oriented. Her family is at her bedside. Is a small repaired laceration of the nasal dorsum. It is difficult to assess the nasal bones given the swelling which is present but there does not appear to be major displacement of the nasal bones. There is no evidence of a nasal septal hematoma. The patient is edentulous. Digital traction on the upper alveolus produces no mobility. The patient has full range of motion in both eyes. There is no evidence of a hyphem a. Impression: LeFort I fracture with nasal fracture. Neither of these fractures will require acute attention. The patient's pressing issue is with the weakness in her lower extremity and that workup isin progress. I explained to the patient that the swelling will need to decrease in the face for full assessment of any post traumatic issues. In all likelihood no future surgery will be necessary. She will obviously need to have new dentures made. She can follow-up with our service if needed as an outpatient. Digitally Signed by GEGE FOURNIER MD on 12/28/2023 09:05 AM [facility] [id number] Note ORIGINAL EXAMINATION: MRI OF THE LUMBAR SPINE WITHOUT CONTRAST, 12/28/2023 7:15 am TECHNIQUE: Multiplanar multisequence MRI of the lumbar spine was performed without the administration of intravenous contrast. COMPARISON: CT lumbar spine same date HISTORY: ORDERING SYSTEM PROVIDED HISTORY: Reason for Exam: Right lower extremity sensory changes and weakness FINDINGS: For the purposes of this dictation, there are 5 lumbar type vertebral bodies with the most caudal fully segmented body denoted as L5. No significant anterolisthesis or retrolisthesis. There is depression of the superior endplate of L4 on the left without marrow edema to indicate acuity. Otherwise, vertebral body heights are maintained. There is diffuse disc desiccation and disc height loss throughout the lumbar spine. There is fluid signal in the disc at L2-3 and L4-5. Surrounding marrow edema at L2-3 could be degenerative. An infectious etiology is within the differential but considered less likely. Minimal fluid is also present in the L3-4 disc. Type 2 Modic change at L5-S1. The conus terminates at a normal level and the nerve roots of the cauda equina appear unremarkable. There is mild edema in the right psoas muscle adjacent to the fluid and edema involving L2-3. L1-L2: Generalized disc bulge and facet arthropathy with mild canal stenosis. Mild left and right neural foraminal stenosis. L2-L3: There is a right subarticular inferiorly migrated extrusion moderately narrowing the right lateral recess superimposed upon a generalized disc bulge. Facet arthropathy. Mild canal stenosis. Mild left and right neural foraminal stenosis. L3-L4: Generalized disc bulge, facet arthropathy, and ligamentum flavum hypertrophy with mild canal stenosis. Mild bilateral lateral recess stenosis. Minimal left and [id number] right neural foraminal stenosis. L4-L5: Generalized disc bulge, facet arthropathy, and ligamentum flavum hypertrophy with mild canal stenosis. Mild bilateral lateral recess stenosis. Minimal left and mild right neural foraminal stenosis. Disc/osteophyte contacts the exited right L4 nerve root in the lateral recess. L5-S1: Generalized disc bulge with a superimposed posterior protrusion. Facet arthropathy and ligamentum flavum hypertrophy. Mild canal stenosis. Mild left and moderate right neural lateral recess stenosis. Mild left and right neural foraminal stenosis. Disc/osteophyte contacts the exited left L5 nerve root in the extraforaminal zone. IMPRESSION: 1. Right subarticular inferiorly migrated extrusion at L2-L3 moderately narrows the right lateral recess. 2. Fluid signal in the L2-L3 disc with surrounding marrow edema and adjacent edema in the right psoas muscle and surrounding soft tissues. Findings are favored to be degenerative or reactive in nature, however an infectious etiology is within the differential but considered less likely. 3. Multilevel degenerative changes as described above. Interpreted by: Aury Zamarripa MD Preliminary Report By: Aury Zamarripa MD Electronically signed By Aury Zamarripa MD Dictated Date: 12/28/2023 7:46:17 AM Prelim Date: 12/28/2023 8:02:11 AM Sign Date: 12/28/2023 8:02:11 AM Ordering Provider: [facility]03-24-2024 Note ORIGINAL EXAMINATION: MRI OF THE THORACIC SPINE WITHOUT CONTRAST 12/28/2023 7:00 am TECHNIQUE: Multiplanar multisequence MRI of the thoracic spine was performed without the administration of intravenous contrast. COMPARISON: CT chest same date HISTORY: ORDERING SYSTEM PROVIDED HISTORY: Reason for Exam: Right lower extremity sensory changes and weakness FINDINGS: No significant anterolisthesis or retrolisthesis. Vertebral body heights are maintained. Diffuse disc desiccation and mild disc height loss throughout the thoracic spine. Mild dextrocurvature. No suspicious marrow signal abnormality. The thoracic cord is normal in signal intensity. The paraspinal soft tissues are grossly nonacute. Evaluation of the individual levels demonstrate the following: T1-T2: Generalized disc bulge with mild flattening of the anterior cord and minimal canal stenosis. T2-3: Generalized disc bulge with a superimposed posterior protrusion indenting the anterior cord with only minimal canal stenosis. Posterior ligament hypertrophy. T4-5: Tiny generalized disc bulge. T4-5 through T9-10: Small generalized disc bulges. Right posterior protrusion at T5-6 mildly flattens the anterior cord. Posterior protrusion at T7-8 mildly flattens the cord. At most mild canal stenosis. T10-T11 through T12-L1: Facet arthropathy with at most mild canal stenosis. There is no significant foraminal stenosis at any thoracic level. Fluid in the L2-3 disc space with surrounding edema and adjacent soft tissue edema. Findings could be degenerative or reactive/posttraumatic. There is mild edema in the prevertebral space extending from the cervical spine through T3. IMPRESSION: 1. Fluid in the L2-3 disc space with surrounding edema and adjacent soft tissue edema. Findings could be degenerative or reactive/posttraumatic. 2. There is mild edema in the prevertebral space extending from the cervical spine through T3. 3. Multilevel degenerative changes as above. Interpreted by: Aury Zamarripa MD Preliminary Report By: Aury Zamarripa MD Electronically signed By Aury Zamarripa MD Dictated Date: 12/28/2023 8:02:26 AM Prelim Date: 12/28/2023 8:11:55 AM Sign Date: 12/28/2023 8:11:55 AM Ordering Provider: [facility]03-24-2024 Note ORIGINAL EXAMINATION: MRI OF THE CERVICAL SPINE WITHOUT CONTRAST 12/28/2023 6:55 am TECHNIQUE: Multiplanar multisequence MRI of the cervical spine was performed without the administration of intravenous contrast. COMPARISON: CT cervical spine from outside facility 12/27/2023 HISTORY: ORDERING SYSTEM PROVIDED HISTORY: Reason for Exam: Right lower extremity sensory changes and weakness FINDINGS: No significant anterolisthesis or retrolisthesis. Vertebral body heights are maintained. Diffuse disc desiccation and disc height loss throughout the cervical spine. No suspicious marrow signal abnormality. Mild edema in C5 and C6 is favored degenerative. There is increased cord signal at the C6 level. There is prevertebral edema extending from the superior endplate of C4 through the inferior endplate of T3. C2-C3: Generalized disc bulge and right uncovertebral hypertrophy. Right greater than left facet arthropathy. Posterior ligament hypertrophy. Mild canal stenosis. Mild bilateral neural foraminal stenosis. C3-C4: Generalized disc bulge, facet arthropathy, uncovertebral hypertrophy, right greater than left. Ligamentum flavum hypertrophy. Mild canal stenosis. Mild right and moderate left neural foraminal stenosis. C4-C5: Disc osteophyte complex with uncovertebral hypertrophy and left greater than right facet arthropathy. Posterior ligament hypertrophy. Mild to moderate canal stenosis. Mild right and severe left neural foraminal stenosis. C5-C6: Disc osteophyte complex with uncovertebral hypertrophy and mild facet arthropathy. Posterior ligament hypertrophy. Severe canal stenosis with cord deformity. Moderate bilateral neural foraminal stenosis. C6-C7: Disc osteophyte complex with uncovertebral hypertrophy, mild facet arthropathy, and posterior ligament hypertrophy. Superimposed superiorly migrated central extrusion. Moderate to severe canal stenosis. Flattening of the cord with increased cord signal. Mild bilateral neural foraminal stenosis. C7-T1: Disc osteophyte complex with a superimposed posterior protrusion. Facet arthropathy. Ligamentum flavum hypertrophy. Mild canal stenosis. No right neural foraminal stenosis. Flattening of the anterior cord. Mild left neural foraminal stenosis. IMPRESSION: 1. 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 2. Increased cord signal at the C6 level is likely due to acute cord contusion given history of trauma. 3. Prevertebral edema from C4 through T3. This is nonspecific and may be reactive. 4. Varying degrees of neural foraminal stenosis as above, severe on the left at C4-C5. Interpreted by: Aury Zamarripa MD Preliminary Report By: Aury Zamarripa MD Electronically signed By Aury Zamarripa MD Dictated Date: 12/28/2023 8:12:09 AM Prelim Date: 12/28/2023 8:29:43 AM Sign Date: 12/28/2023 8:29:43 AM Ordering Provider: [facility]03-24-2024 Note ORIGINAL EXAMINATION: CT OF THE LUMBAR SPINE WITHOUT CONTRAST 12/28/2023 TECHNIQUE: CT of the lumbar spine was performed without the administration of intravenous contrast. Multiplanar reformatted images are provided for review. Adjustment of mA and/or kV according to patient size was utilized. Automated exposure control, iterative reconstruction, and/or weight based adjustment of the mA/kV was utilized to reduce the radiation dose to as low as reasonably achievable. COMPARISON: None HISTORY: ORDERING SYSTEM PROVIDED HISTORY: Reason for Exam: pain; trauma patient FINDINGS: Moderate degenerative changes are noted throughout the spine, no acute fracture is identified. Vertebral body heights are maintained. Sacroiliac joints are maintained. There is severe disc space loss at L4-L5 and L5-S1 with more moderate disc space loss at the remaining levels. Multilevel facet arthropathy is present which is most severe at the L4-L5 and L5-S1. There is also small disc protrusions at L3-L4 and L5-S1 with at least mild canal stenosis at L3-L4 and moderate canal stenosis at L5-S1. SOFT TISSUES/RETROPERITONEUM: No paraspinal mass is seen. IMPRESSION: Multilevel degenerative changes is as detailed above. No acute traumatic injury identified. Interpreted by: Lan Ortiz MD Preliminary Report By: Lan Ortiz MD Electronically signed By Lan Ortiz MD Dictated Date: 12/28/2023 3:36:49 AM Prelim Date: 12/28/2023 3:39:52 AM Sign Date: 12/28/2023 3:39:52 AM Ordering Provider: [facility]07-07-2023 Miscellaneous Notes* Letter - Coordinator, Mammography - 04/11/2023 9:09 AM EDT April 14, 2023 PID: [id number] Kiesha Colvin [address] [place] [address] Dear Ms. Colvin, We are pleased to inform you that the results of your recent breast imaging exam on 04/10/2023 are normal. Early detection of cancer is very important. We also understand recommendations regarding breast cancer screening are controversial. Please discuss with your primary care provider which strategy is best for you and whether a mammogram is right for you. Your imaging studies and report will be kept on file at [facility] as part of your permanent medical record and are available for your continuing care. Thank you for allowing us to help in meeting your health care needs. Sincerely, Dr. Awad Interpreting Radiologist [facility] (Normal over 40) documented in this encounterAcmc Healthcare [facility]07-06-2023 History of Present illness Narrative* Nicolasa Pedraza Mammo Tech - 04/10/2023 1:10 PM EDT Radiology Service Progress Note PATIENT NAME: Kiesha Colvin DATE OF SERVICE: April 10, 2023 TIME: 1:01 PM PATIENT IDENTITY VERIFICATION COMPLETED USING TWO (2) IDENTIFIERS: Name and Date of confirmedby patient verbally. FALL SCREENING: Has the patient had 2 falls in the last year or 1 fall with injury or currently using an Ambulatory Assistive Device (Walker, Cane, Wheelchair, Crutches, etc.)? No PATIENT GENDER DATA: Female. status: : No status: NO. PATIENT RELEVANT IMPLANT DATA REVIEWED: Not Applicable RADIOLOGY DEPARTMENT: Mammography PERIPHERAL IV DATA: Not applicable SIGNED BY: Chuy Benson April 10, 2023 1:01 PM documented in this encounterAcmc [facility]07-06-2023 Miscellaneous Notes* Result Encounter Note - Antolin Coombs APRN.SCENE SHIFTER - 04/10/2023 1:10 PM EDT Negative, 1 year follow-up advised documented in this encounterAcmc Healthcare [facility]07-03-2023 Miscellaneous Notes* Telephone Encounter - Sho Bruno APRN.FORM STRIPPER - 04/07/2023 2:15 PM EDT Order for mammogram placed, please call to schedule. * Telephone Encounter - Olga Lidia Bernard RN - 04/07/2023 9:47 AM EDT Patient calls to request an order for mammogram screening. Pended. Please call patient at [phone] to schedule. Olga Lidia Bernard RN documented in this encounterAcmc Healthcare [facility]03-31-2023 Instructions* Patient Instructions* Lianet Sullivan MD - 01/03/2023 4:32 PM EDT May try B12 documented in this encounterAcmc [facility]03-31-2023 History of Present illness Narrative* Lianet Sullivan MD - 01/03/2023 4:26 PM EDT This note was created using [employer]. Subjective Kiesha Colvin is a 82 year old female. Patient presents with: F/U 6 months SUBJECTIVE: Kiesha Colvin is a 82 year old year old lady here today for 6 month follow up appointment for review of medical conditions. Right shoulder doing better. Still healing. ROM improving. Wrist issues from fracture noted. Some numbness in fingers and hand at times. Can feel okay. Sometimes drops things. Sees Dr. Bal for follow up in a couple weeks. Had cataracts taken care of. Friday had left done; right was 2 weeks ago. Will need new glasses since no longer needs distance correction. PAST MEDICAL HISTORY Diagnosis Date ANEMIA NOS 04/21/2009 Colonoscopy in 10-11: tics and hems with no polpys Started iron as an inpt per Dr. Sales: pt reportedly giving multiple blood donations Hct 33% in 04-13, 06-14 Iron 72, Ferritin 162 (8-252), TIBC 344 in 06-14: stop iron supplements and repeat levels in follow up Anxiety state, unspecified Arthritis CELLULITIS NOS 04/18/2009 WBC 9 K, ESR 118 in 04-13 for cellulitis of R foot Empiric Levaquin for R foot in 04-13: rec to return to Podiatry Admitted 04-19-09 for cellulitis: discharged on Doxy and rec to ID (MRI of the R foot negative for osteo) Depressive disorder, not elsewhere classified Diverticulosis of colon (without mention of hemorrhage) Diverticulosis of colon (without mention of hemorrhage) Family history of malignant neoplasm of gastrointestinal tract family history of colon cancer Family history of malignant neoplasm of gastrointestinal tract Hypertension Idiopathic neuropathy 11/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 is 28.8. To continue the vit D 50,000 one po weekly Current Outpatient Medications Medication Sig amLODIPine (NORVASC) 2.5 mg tablet Take 1 tablet by mouth once daily. PARoxetine (PAXIL) 20 mg tablet Take 1 tablet by mouth once daily. atorvastatin (LIPITOR) 20 mg tablet Take one (1) tablet by mouth every evening at 9pm omeprazole (PRILOSEC) 20 mg capsule Take 1 capsule by mouth daily before breakfast. 1/2 hr before meal. ferrous sulfate 325 mg (65 mg iron) tablet Take 325 mg by mouth daily with breakfast. methotrexate 2.5 mg tablet 7 tablets Po once a week folic acid 1 mg tablet Take 2 mg by mouth once daily. fluticasone (FLONASE) 50 mcg/actuation nasal spray Use 2 Sprays in each nostril once daily. As needed. Rinse mouth after use. EPINEPHrine (EPIPEN 2-MAKI) 0.3 mg/0.3 mL auto-injector Inject 0.3 mL intramuscularly as needed. Cholecalciferol, Vitamin D3, 1,000 unit cap Take 2 capsules by mouth once daily. ASPIRIN 81 MG TAB Take one (1) tablet daily . MULTIVITAMIN TAB Take one(1) tablet daily. CALCIUM 500+D 500 MG-200 UNIT TAB No current facility-administered medications for this visit. Review of Systems Objective BP 118/74 Pulse 68 Temp 36.6 C (97.8 F) Resp 18 Wt 85.3 kg (188 lb) SpO2 99% BMI 35.52 kg/m Physical Exam Constitutional: Appearance: Normal appearance. HENT: Head: Normocephalic. Eyes: Conjunctiva/sclera: Conjunctivae normal. Cardiovascular: Rate and Rhythm: Normal rate and regular rhythm. Heart sounds: Normal heart sounds. Pulmonary: Effort: Pulmonary effort is normal. Breath sounds: Normal breath sounds. Musculoskeletal: Right lower leg: Edema (mostly foot and ankle) present. Left lower leg: No edema. Skin: General: Skin is warm and dry. Neurological: General: No focal deficit present. Mental Status: She is alert and oriented to person, place, and time. Psychiatric: Mood and Affect: Mood normal. Behavior: Behavior normal. Thought Content: Thought content normal. Judgment: Judgment normal. Scaly skin lesion on left hand dorsum and forearm extensor side Assessment and Plan Encounter Diagnosis ICD-10-CM 1. Anxiety state F41.1 PARoxetine (PAXIL) 20 mg tablet Stable on current meds 2. Essential hypertension I10 amLODIPine (NORVASC) 2.5 mg tablet 3. Pure hypercholesterolemia E78.00 atorvastatin (LIPITOR) 20 mg tablet Above issues addressed with patient. Patient involved in shared decision making for management of medical issues. History and medications reviewed. Epic updated as needed Refills and/or prescriptions taken care of and meds adjusted as indicated after reviewed history, exam and labs. Health Maintenance reviewed. Updated record and/or ordered tests as recorded. Encouraged on efforts at healthy diet and regular exercise and adequate sleep. Lianet Sullivan MD documented in this encounterAcmc Healthcare [facility]01-11-2023 History of Present illness Narrative* Yazan Wild, RT(R) - 10/16/2022 2:00 PM EST Radiology Service Progress Note PATIENT NAME: Kiesha Colvin DATE OF SERVICE: October 16, 2022 TIME: 2:00 PM PATIENT IDENTITY VERIFICATION COMPLETED USING TWO (2) IDENTIFIERS: Name and Date of confirmedby patient verbally. FALL SCREENING: Has the patient had 2 falls in the last year or 1 fall with injury or currently using an Ambulatory Assistive Device (Walker, Cane, Wheelchair, Crutches, etc.)? Yes, Patient High Riskfor Falls What interventions were put in place to prevent falls during this visit? Increased Observations by Caregivers PATIENT GENDER DATA: Female. status: : No status: NO. PATIENT RELEVANT IMPLANT DATA REVIEWED: Not Applicable RADIOLOGY DEPARTMENT: Bone Density PERIPHERAL IV DATA: Not applicable SIGNED BY: RT Mandi(R) October 16, 2022 2:00 PM documented in this encounterAcmc Healthcare [facility]09-30-2022 History of Present illness Narrative* Antolin Coombs APRN.SCENE SHIFTER - 07/05/2022 2:00 PM EDT SUBJECTIVE: SHINGRIX VACCINE(1 of 2) due on 10/28/2012 ADVANCE DIRECTIVE DISCUSSION Never done DEPRESSION ASSESSMENT Never done HPI Kiesha Colvin is a 82 year old female. PMH significant for ACTIVE PROBLEM LIST Pure Hypercholesterolemia Anxiety State Obesity, Unspecified Idiopathic Neuropathy Urge Incontinence of Urine Symptomatic Menopausal Or Female Climacteric States Varicose Veins of Both Lower Extremities Hypertension Osteoarthrosis Multiple Sites, Not Specified As Generalized CKD (chronic kidney disease) Stage 3, GFR 30-59 ml/min Impaired Glucose Metabolism Rheumatoid Arthritis Involving Multiple Sites With Positive Rheumatoid Factor (Hcc) HPI excerpted from last visit: TE 06/11/2022 reveals she was hospitalized at [facility] 06/01/22 for 4 days for cellulitis of right leg & foot. She returned to [facility] ED 06/09/22 d/t leg & foot still red & swollen, treated with [id number]. Seen in office subsequently 06/12 and 06/17/2022 by Radha Long APRN.FORM STRIPPER. Treated with Bactrim, GI upset so switched to doxycyline. Was to follow up with Radha Long APRN.FORM STRIPPER; scheduled with me. Presents today with SO that helps with HPI. Notes right lower extremity cellulitis is looking improved. Afebrile but has feeling not being well. Notes feeling lightheaded, may not be drinking enough fluid. Reports that she has been taking antibiotic on empty stomach. States she is reduced dosing on her own of antibiotic, currently taking just 1 doxycycline daily; thinks she may be feeling ill due to the doxycycline and other antibiotics she has taken. Drainage: present Erythema:decreased Warmth:decreased Fever: none She has been applying a honey based salve to the open area on her posterior calf that she bought [employer]. Has had right TKR, no pain erythema or warmth at TKR site. Presents today for follow-up visit. Pain redness and swelling is much less. Open area on posterior danilo area is scabbed over. No drainage is present. Afebrile. Notes some swelling in leg as day progresses. Less fatigue, no dizziness/lightheadnedness. Creatinine Date Value Ref Range Status 12/04/2021 0.88 0.6 - 1.3 MG/DL Final 11/14/2020 0.95 0.58 - 0.96 mg/dL Final 05/12/2020 1.07 0.6 - 1.3 MG/DL Final 03/03/2019 0.95 0.58 - 0.96 mg/dL Final Review of Systems Constitutional: Positive for fatigue. Respiratory: Negative. Cardiovascular: Negative. Neurological: Negative for light-headedness. Objective BP 126/66 Pulse 70 Temp 36.8 C (98.2 F) (Temporal) Resp 14 Wt 85.3 kg (188 lb) SpO2 98% BMI 35.52 kg/m Physical Exam Vitals and nursing note reviewed. Constitutional: Appearance: Normal appearance. HENT: Head: Normocephalic and atraumatic. Eyes: Conjunctiva/sclera: Conjunctivae normal. Cardiovascular: Rate and Rhythm: Normal rate. Pulmonary: Effort: Pulmonary effort is normal. Skin: General: Skin is warm and dry. Comments: Circumferential erythema ankle, nearly healed posterior lesion, no redness or drainage. Neurological: Mental Status: She is alert. ALLERGIES Allergen Reactions Bee Stings [Other] Intolerance goes into shock, honey bees only Keflex [Cephalexin] Rash, Other: See Comments Headache Penicillins Medications mupirocin (BACTROBAN) 2 % ointment Apply 1 application to affected area twice daily for 10 days. Apply to open area on back of right calf amLODIPine (NORVASC) 2.5 mg tablet Take 1 tablet by mouth once daily. PARoxetine (PAXIL) 20 mg tablet Take 1 tablet by mouth once daily. atorvastatin (LIPITOR) 20 mg tablet Take one (1) tablet by mouth every evening at 9pm omeprazole (PRILOSEC) 20 mg capsule Take 1 capsule by mouth daily before breakfast. 1/2 hr before meal. ferrous sulfate 325 mg (65 mg iron) tablet Take 325 mg by mouth daily with breakfast. methotrexate 2.5 mg tablet 7 tablets Po once a week folic acid 1 mg tablet Take 2 mg by mouth once daily. fluticasone (FLONASE) 50 mcg/actuation nasal spray Use 2 Sprays in each nostril once daily. As needed. Rinse mouth after use. EPINEPHrine (EPIPEN 2-MAKI) 0.3 mg/0.3 mL auto-injector Inject 0.3 mL intramuscularly as needed. Cholecalciferol, Vitamin D3, 1,000 unit cap Take 2 capsules by mouth once daily. ASPIRIN 81 MG TAB Take one (1) tablet daily . MULTIVITAMIN TAB Take one(1) tablet daily. CALCIUM 500+D 500 MG-200 UNIT TAB PAST MEDICAL HISTORY Diagnosis Date ANEMIA NOS 04/21/2009 Colonoscopy in 10-11: tics and hems with no polpys Started iron as an inpt per Dr. Sales: pt reportedly giving multiple blood donations Hct 33% in 04-13, 06-14 Iron 72, Ferritin 162 (8-252), TIBC 344 in 06-14: stop iron supplements and repeat levels in follow up Anxiety state, unspecified Arthritis CELLULITIS NOS 04/18/2009 WBC 9 K, ESR 118 in 04-13 for cellulitis of R foot Empiric Levaquin for R foot in 04-13: rec to return to Podiatry Admitted 04-19-09 for cellulitis: discharged on Doxy and rec to ID (MRI of the R foot negative for osteo) Depressive disorder, not elsewhere classified Diverticulosis of colon (without mention of hemorrhage) Diverticulosis of colon (without mention of hemorrhage) Family history of malignant neoplasm of gastrointestinal tract family history of colon cancer Family history of malignant neoplasm of gastrointestinal tract Hypertension 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 To continue the vit D 50,000 one po weekly Social History Tobacco Use Smoking status: Former Packs/day: 1.00 Years: 20.00 Pack years: 20.00 Types: Cigarettes Quit date: 10/06/1978 Years since quittin.7 Smokeless tobacco: Never Substance Use Topics Alcohol use: No Drug use: No ASSESSMENT/PLAN: 1. Cellulitis of right lower extremity - ICD9: 682.6, ICD10: L03.115 Near completely resolved. Continue current treatments until back to baseline. Resume compression stockings when able to wear. Follow-up if does not continue to complete resolution. - MUPIROCIN 2 % TOPICAL OINTMENT 2. Encounter for immunization - ICD9: V03.89, ICD10: Z23 - INFLUENZA SEASONAL QUADRIVALENT HIGH DOSE AGE 65+ Antolin Coombs APRN.CNS Medical Decision Making: Problems: Moderate: 1+ chronic illnesses with change Risk: Moderate: Drug management Medical Decision Making Level: 4 - Moderate documented in this encounterAcmc Healthcare [facility]09-23-2022 History of Present illness Narrative* Antolin Coombs APRN.CNS - 06/28/2022 2:00 PM EDT SUBJECTIVE: SHINGRIX VACCINE(1 of 2) due on 10/28/2012 ADVANCE DIRECTIVE DISCUSSION Never done INFLUENZA(1) due on 06/06/2022 HPI Kiesha Colvin is a 82 year old female. PMH significant for ACTIVE PROBLEM LIST Pure Hypercholesterolemia Anxiety State Obesity, Unspecified Idiopathic Neuropathy Urge Incontinence of Urine Symptomatic Menopausal Or Female Climacteric States Varicose Veins of Both Lower Extremities Hypertension Osteoarthrosis Multiple Sites, Not Specified As Generalized CKD (chronic kidney disease) Stage 3, GFR 30-59 ml/min Impaired Glucose Metabolism Rheumatoid Arthritis Involving Multiple Sites With Positive Rheumatoid Factor (Hcc) HPI excerpted from last visit: TE 06/11/2022 reveals she was hospitalized at [facility] 06/01/22 for 4 days for cellulitis of right leg & foot. She returned to [facility] ED 06/09/22 d/t leg & foot still red & swollen, treated with [id number]. Seen in office subsequently 06/12 and 06/17/2022 by Radha Long APRN.FORM STRIPPER. Treated with Bactrim, GI upset so switched to doxycyline. Was to follow up with Radha Long APRN.CNP; scheduled with me. Presents today with SO that helps with HPI. Notes right lower extremity cellulitis is looking improved. Afebrile but has feeling not being well. Notes feeling lightheaded, may not be drinking enough fluid. Reports that she has been taking antibiotic on empty stomach. States she is reduced dosing on her own of antibiotic, currently taking just 1 doxycycline daily; thinks she may be feeling ill due to the doxycycline and other antibiotics she has taken. Drainage: present Erythema:decreased Warmth:decreased Fever: none She has been applying a honey based salve to the open area on her posterior calf that she bought [employer]. Has had right TKR, no pain erythema or warmth at TKR site. Presents today for follow-up visit. Pain redness and swelling is less. Open area on posterior danilo area is healing. Less drainage is present. Afebrile. Notes some low back and leg pain with elevation.Notes some swelling in leg as day progresses. Less fatigue, no dizziness/lightheadnedness. Creatinine Date Value Ref Range Status 12/04/2021 0.88 0.6 - 1.3 MG/DL Final 11/14/2020 0.95 0.58 - 0.96 mg/dL Final 05/12/2020 1.07 0.6 - 1.3 MG/DL Final 03/03/2019 0.95 0.58 - 0.96 mg/dL Final Review of Systems Constitutional: Positive for fatigue. Respiratory: Negative. Cardiovascular: Negative. Neurological: Negative for light-headedness. Objective BP 136/64 Pulse 72 Resp 16 Wt 85.7 kg (189 lb) BMI 35.71 kg/m Physical Exam Vitals and nursing note reviewed. Constitutional: Appearance: Normal appearance. HENT: Head: Normocephalic and atraumatic. Eyes: Conjunctiva/sclera: Conjunctivae normal. Cardiovascular: Rate and Rhythm: Normal rate. Pulmonary: Effort: Pulmonary effort is normal. Skin: General: Skin is warm and dry. Comments: Circumferential erythema, warmth and swelling right ankle to mid calf. Erythema resolved at right thigh, lateral aspect. Weeping open skin posterior calf, area ~1 diameter, serosanguinous drainage. Neurological: Mental Status: She is alert. ALLERGIES Allergen Reactions Bee Stings [Other] Intolerance goes into shock, honey bees only Keflex [Cephalexin] Rash, Other: See Comments Headache Penicillins Medications mupirocin (BACTROBAN) 2 % ointment Apply 1 application to affected area twice daily for 10 days. Apply to open area on back of right calf doxycycline (VIBRA-TABS) 100 mg tablet Take 1 tablet by mouth twice daily for 7 days. Start taking after completing previous prescription. Take with food amLODIPine (NORVASC) 2.5 mg tablet Take 1 tablet by mouth once daily. PARoxetine (PAXIL) 20 mg tablet Take 1 tablet by mouth once daily. atorvastatin (LIPITOR) 20 mg tablet Take one (1) tablet by mouth every evening at 9pm omeprazole (PRILOSEC) 20 mg capsule Take 1 capsule by mouth daily before breakfast. 1/2 hr before meal. ferrous sulfate 325 mg (65 mg iron) tablet Take 325 mg by mouth daily with breakfast. methotrexate 2.5 mg tablet 7 tablets Po once a week folic acid 1 mg tablet Take 2 mg by mouth once daily. fluticasone (FLONASE) 50 mcg/actuation nasal spray Use 2 Sprays in each nostril once daily. As needed. Rinse mouth after use. EPINEPHrine (EPIPEN 2-MAKI) 0.3 mg/0.3 mL auto-injector Inject 0.3 mL intramuscularly as needed. Cholecalciferol, Vitamin D3, 1,000 unit cap Take 2 capsules by mouth once daily. ASPIRIN 81 MG TAB Take one (1) tablet daily . MULTIVITAMIN TAB Take one(1) tablet daily. CALCIUM 500+D 500 MG-200 UNIT TAB PAST MEDICAL HISTORY Diagnosis Date ANEMIA NOS 04/21/2009 Colonoscopy in 10-11: tics and hems with no polpys Started iron as an inpt per Dr. Sales: pt reportedly giving multiple blood donations Hct 33% in 04-13, 06-14 Iron 72, Ferritin 162 (8-252), TIBC 344 in 06-14: stop iron supplements and repeat levels in follow up Anxiety state, unspecified Arthritis CELLULITIS NOS 04/18/2009 WBC 9 K, ESR 118 in 04-13 for cellulitis of R foot Empiric Levaquin for R foot in 04-13: rec to return to Podiatry Admitted 04-19-09 for cellulitis: discharged on Doxy and rec to ID (MRI of the R foot negative for osteo) Depressive disorder, not elsewhere classified Diverticulosis of colon (without mention of hemorrhage) Diverticulosis of colon (without mention of hemorrhage) Family history of malignant neoplasm of gastrointestinal tract family history of colon cancer Family history of malignant neoplasm of gastrointestinal tract Hypertension Idiopathic neuropathy 11/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 is 28.8. To continue the vit D 50,000 one po weekly Social History Tobacco Use Smoking status: Former Packs/day: 1.00 Years: 20.00 Pack years: 20.00 Types: Cigarettes Quit date: 10/06/1978 Years since quittin.7 Smokeless tobacco: Never Substance Use Topics Alcohol use: No Drug use: No ASSESSMENT/PLAN: 1. Cellulitis of right lower extremity - ICD9: 682.6, ICD10: L03.115 Cellulitis is much improved. Consistently taking antibiotic and using Bactroban topically. Continue with current treatment unchanged and continue antibiotics for 1 more week. Aquaphor or Vaseline to intact dry skin to surrounding area. - DOXYCYCLINE HYCLATE 100 MG TABLET - MUPIROCIN 2 % TOPICAL OINTMENT Antolin Coombs APRN.CNS Medical Decision Making: Problems: Moderate: 1+ chronic illnesses with change Risk: Moderate: Drug management Medical Decision Making Level: 4 - Moderate documented in this encounterAcm[facility]-16-[facility]22 History of Present illness Narrative* Antolin Coombs APRN.CNS - 06/21/2022 2:20 PM EDT SUBJECTIVE: SHINGRIX VACCINE(1 of 2) due on 10/28/2012 COVID-19 VACCINE(3 - Moderna risk series) due on 12/20/2020 ADVANCE DIRECTIVE DISCUSSION Never done INFLUENZA(1) due on 06/06/2022 HPI Kiesha Colvin is a 82 year old female. PMH significant for ACTIVE PROBLEM LIST Pure Hypercholesterolemia Anxiety State Obesity, Unspecified Idiopathic Neuropathy Urge Incontinence of Urine Symptomatic Menopausal Or Female Climacteric States Varicose Veins of Both Lower Extremities Hypertension Osteoarthrosis Multiple Sites, Not Specified As Generalized CKD (chronic kidney disease) Stage 3, GFR 30-59 ml/min Impaired Glucose Metabolism Rheumatoid Arthritis Involving Multiple Sites With Positive Rheumatoid Factor (Hcc) TE 06/11/2022 reveals she was hospitalized at [facility] 06/01/22 for 4 days for cellulitis of right leg & foot. She returned to [facility] ED 06/09/22 d/t leg & foot still red & swollen, treated with [id number]. Seen in office subsequently 06/12 and 06/17/2022 by Radha Long APRN.CNP. Treated with Bactrim, GI upset so switched to doxycyline. Was to follow up with Radha Long APRN.CNP; scheduled with me. Presents today with SO that helps with HPI. Notes right lower extremity cellulitis is looking improved. Afebrile but has feeling not being well. Notes feeling lightheaded, may not be drinking enough fluid. Reports that she has been taking antibiotic on empty stomach. States she is reduced dosing on her own of antibiotic, currently taking just 1 doxycycline daily; thinks she may be feeling ill due to the doxycycline and other antibiotics she has taken. Drainage: present Erythema:decreased Warmth:decreased Fever: none She has been applying a honey based salve to the open area on her posterior calf that she bought [employer]. Has had right TKR, no pain erythema or warmth at TKR site. Creatinine Date Value Ref Range Status 12/04/2021 0.88 0.6 - 1.3 MG/DL Final 11/14/2020 0.95 0.58 - 0.96 mg/dL Final 05/12/2020 1.07 0.6 - 1.3 MG/DL Final 03/03/2019 0.95 0.58 - 0.96 mg/dL Final Review of Systems Constitutional: Positive for fatigue. Respiratory: Negative. Cardiovascular: Negative. Neurological: Positive for light-headedness. Objective BP 144/62 Pulse 76 Resp 16 Wt 84.4 kg (186 lb) BMI 35.14 kg/m Physical Exam Vitals and nursing note reviewed. Constitutional: Appearance: Normal appearance. HENT: Head: Normocephalic and atraumatic. Eyes: Conjunctiva/sclera: Conjunctivae normal. Cardiovascular: Rate and Rhythm: Normal rate. Pulmonary: Effort: Pulmonary effort is normal. Skin: General: Skin is warm and dry. Comments: Circumferential erythema, warmth and swelling right ankle to mid calf. Erythema extends up to right thigh, lateral aspect. Weeping open skin posterior calf, area ~3 diameter, serous drainage. Neurological: Mental Status: She is alert. ALLERGIES Allergen Reactions Bee Stings [Other] Intolerance goes into shock, honey bees only Keflex [Cephalexin] Rash, Other: See Comments Headache Penicillins Medications amLODIPine (NORVASC) 2.5 mg tablet Take 1 tablet by mouth once daily. PARoxetine (PAXIL) 20 mg tablet Take 1 tablet by mouth once daily. atorvastatin (LIPITOR) 20 mg tablet Take one (1) tablet by mouth every evening at 9pm omeprazole (PRILOSEC) 20 mg capsule Take 1 capsule by mouth daily before breakfast. 1/2 hr before meal. ferrous sulfate 325 mg (65 mg iron) tablet Take 325 mg by mouth daily with breakfast. methotrexate 2.5 mg tablet 7 tablets Po once a week folic acid 1 mg tablet Take 2 mg by mouth once daily. fluticasone (FLONASE) 50 mcg/actuation nasal spray Use 2 Sprays in each nostril once daily. As needed. Rinse mouth after use. EPINEPHrine (EPIPEN 2-MAKI) 0.3 mg/0.3 mL auto-injector Inject 0.3 mL intramuscularly as needed. Cholecalciferol, Vitamin D3, 1,000 unit cap Take 2 capsules by mouth once daily. ASPIRIN 81 MG TAB Take one (1) tablet daily . MULTIVITAMIN TAB Take one(1) tablet daily. CALCIUM 500+D 500 MG-200 UNIT TAB mupirocin (BACTROBAN) 2 % ointment Apply 1 application to affected area twice daily for 10 days. Apply to open area on back of right calf doxycycline (VIBRA-TABS) 100 mg tablet Take 1 tablet by mouth twice daily for 7 days. Start taking after completing previous prescription. Take with food PAST MEDICAL HISTORY Diagnosis Date ANEMIA NOS 04/21/2009 Colonoscopy in 10-11: tics and hems with no polpys Started iron as an inpt per Dr. Sales: pt reportedly giving multiple blood donations Hct 33% in 04-13, 06-14 Iron 72, Ferritin 162 (8-252), TIBC 344 in 06-14: stop iron supplements and repeat levels in follow up Anxiety state, unspecified Arthritis CELLULITIS NOS 04/18/2009 WBC 9 K, ESR 118 in 04-13 for cellulitis of R foot Empiric Levaquin for R foot in 04-13: rec to return to Podiatry Admitted 04-19-09 for cellulitis: discharged on Doxy and rec to ID (MRI of the R foot negative for osteo) Depressive disorder, not elsewhere classified Diverticulosis of colon (without mention of hemorrhage) Diverticulosis of colon (without mention of hemorrhage) Family history of malignant neoplasm of gastrointestinal tract family history of colon cancer Family history of malignant neoplasm of gastrointestinal tract Hypertension 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 To continue the vit D 50,000 one po weekly Social History Tobacco Use Smoking status: Former Packs/day: 1.00 Years: 20.00 Pack years: 20.00 Types: Cigarettes Quit date: 10/06/1978 Years since quittin.7 Smokeless tobacco: Never Substance Use Topics Alcohol use: No Drug use: No ASSESSMENT/PLAN: 1. Cellulitis of right lower extremity - ICD9: 682.6, ICD10: L03.115 Kiesha Colvin Metasul indicates that her leg looks improved however still not back to baseline. Significant amount of erythema, warmth and continued serous drainage is present. She has self reduced dosing of antibiotics due to not feeling well however has been taking on an empty stomach. She has been applying honey-based product to her open sore. Recommend taking antibiotics as ordered twice daily with food/meal Extend additional 7 days. Monitor right total knee for any adverse signs or symptoms. Wash leg at least daily with soap and water Apply Bactroban to open area on posterior aspect of leg Drink plenty of fluids throughout the day. Protein in each meal. Elevate her foot when seated. Walkhourly while awake, avoid prolonged sitting or standing with legs dependent. Recheck 1 week - DOXYCYCLINE HYCLATE 100 MG TABLET - MUPIROCIN 2 % TOPICAL OINTMENT Antolin Coombs APRN.CNS Medical Decision Making: Problems: Moderate: New problem with uncertain prognosis Risk: Moderate: Drug management Medical Decision Making Level: 4 - Moderate documented in this encounterAcm[facility]09-12-2022 History of Present illness Narrative* Rdaha Long APRN.FORM STRIPPER - 06/17/2022 3:00 PM EDT Chief Complaint Patient presents with: recheck cellulitis on leg: Pt states legs look better but very tired , no energy no appetite and dizzy . Feels may be atb HPI Kiesha Colvin is a 81 year old female who presents here today for Above Complaints. Kiesha is an established patient of Dr. Nate MD. Kiesha was seen by me on 06/12/22 for [facility] hospital follow-up visit. Per note --- Admitted to [facility] on 06/01/22 x 4 days d/t cellulitis of R foot and leg. Pt then returned to [facility] ED on06/09/22 d/t continued swelling and redness to leg. Given levofloxacin 750 mg. Still awaiting blood culture results from [facility]. Today... Still has 2 days left of levaquin. Was discharged from hospital admission on this oral ATB and given extension of same ATB at ED visitd/t no resolution. Pt presents with pen servando from ED visit. Redness is decreased from pen markings but still with significant redness, swelling and warmth to ankle area and foot. Pen markings up to above knee. Pt denies any fever/chills/night sweats -- did have these when presenting to hospital the first time. Reports wound ulcers were weeping with drainage during hospital admission but this has improved. No drainage currently. Ulcers are healing slightly per pt. Started on bactrim BID x 10 days at this appointment and scheduled follow-up for a few days. TODAY.... Blood culture results from [facility] are back and were negative for any bacteria growth. Redness and swelling greatly improving, still worse to ankle area but foot and upper calf/knee are back to normal. Pt reports not tolerating bactrim well. Reports nausea and mild lightheadedness. Reports symptoms started on day 2 of new antibiotic regimen. Would like to switch antibiotic. Denies any CP, SOB, palpitations, or syncope. Vital signs stable. Eating and drinking normally. Reports taking bactrim with food. Past medical history, appointments, medications, allergies reviewed. Previous Medical History PAST MEDICAL HISTORY Diagnosis Date ANEMIA NOS 04/21/2009 Colonoscopy in 10-11: tics and hems with no polpys Started iron as an inpt per Dr. Sales: pt reportedly giving multiple blood donations Hct 33% in 04-13, 06-14 Iron 72, Ferritin 162 (8-252), TIBC 344 in 06-14: stop iron supplements and repeat levels in follow up Anxiety state, unspecified Arthritis CELLULITIS NOS 04/18/2009 WBC 9 K, ESR 118 in 04-13 for cellulitis of R foot Empiric Levaquin for R foot in 04-13: rec to return to Podiatry Admitted 04-19-09 for cellulitis: discharged on Doxy and rec to ID (MRI of the R foot negative for osteo) Depressive disorder, not elsewhere classified Diverticulosis of colon (without mention of hemorrhage) Diverticulosis of colon (without mention of hemorrhage) Family history of malignant neoplasm of gastrointestinal tract family history of colon cancer Family history of malignant neoplasm of gastrointestinal tract Hypertension 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 To continue the vit D 50,000 one po weekly Previous Surgical History PAST SURGICAL HISTORY Procedure Laterality Date ABDOMINAL SURGERY HX APPENDECTOMY HX ARTHRP KNE CONDYLE&PLATU MEDIAL&LAT COMPARTMENTS Right 01/01/2016 Knee replacement, total ARTHRP KNE CONDYLE&PLATU MEDIAL&LAT COMPARTMENTS Left 09/09/2016 CHOLECYSTECTOMY Cholecystectomy COLONOSCOPY FLX DX W/COLLJ SPEC WHEN PFRMD 01/17/1999 Colonoscopy COLONOSCOPY FLX DX W/COLLJ SPEC WHEN PFRMD 10/10/2005 Colonoscopy COLONOSCOPY FLX DX W/COLLJ SPEC WHEN PFRMD 02/05/2011 COLONOSCOPY FLX DX W/COLLJ SPEC WHEN PFRMD 03/25/2016 Colonoscopy COLONOSCOPY FLX DX W/COLLJ SPEC WHEN PFRMD 02/20/2021 ESOPHAGOGASTRODUODENOSCOPY TRANSORAL DIAGNOSTIC 02/20/2021 JOINT REPLACEMENT HX OOPHORECTOMY PARTIAL/TOTAL UNI/BI Oophorectomy TOTAL ABDOMINAL HYSTERECT W/WO RMVL TUBE OVARY 1970s Hysterectomy, NIRMALA VAGINAL HYSTERECTOMY VASCULAR SURGERY PROCEDURE Family History FAMILY HISTORY Problem Relation Age of Onset Colon Cancer Mother diagnosed about age 45. at 49 Heart Father Colon Cancer Sister diagnosed (and passed) at age 68 None Sister coln polyp removed COPD Brother Stroke Brother IC hemorrhage Patient Allergies ALLERGIES Allergen Reactions Bee Stings [Other] Intolerance goes into shock, honey bees only Keflex [Cephalexin] Rash, Other: See Comments Headache Penicillins Current Medications Current Outpatient Medications on File Prior to Visit Medication Sig levoFLOXacin (LEVAQUIN) 750 mg tablet Take 750 mg by mouth once daily. sulfamethoxazole-trimethoprim (BACTRIM DS) 800-160 mg per tablet Take 1 tablet by mouth twice dailyfor 10 days. amLODIPine (NORVASC) 2.5 mg tablet Take 1 tablet by mouth once daily. PARoxetine (PAXIL) 20 mg tablet Take 1 tablet by mouth once daily. atorvastatin (LIPITOR) 20 mg tablet Take one (1) tablet by mouth every evening at 9pm omeprazole (PRILOSEC) 20 mg capsule Take 1 capsule by mouth daily before breakfast. 1/2 hr before meal. famotidine (PEPCID) 40 mg tablet Take 1 tablet by mouth once daily. Bisacodyl (DULCOLAX) 5 mg tab Use as directed for Miralax / Gatorade Bowel Prep Kit ferrous sulfate 325 mg (65 mg iron) tablet Take 325 mg by mouth daily with breakfast. methotrexate 2.5 mg tablet 7 tablets Po once a week folic acid 1 mg tablet Take 2 mg by mouth once daily. fluticasone (FLONASE) 50 mcg/actuation nasal spray Use 2 Sprays in each nostril once daily. As needed. Rinse mouth after use. EPINEPHrine (EPIPEN 2-MAKI) 0.3 mg/0.3 mL auto-injector Inject 0.3 mL intramuscularly as needed. Cholecalciferol, Vitamin D3, 1,000 unit cap Take 2 capsules by mouth once daily. ASPIRIN 81 MG TAB Take one (1) tablet daily . MULTIVITAMIN TAB Take one(1) tablet daily. CALCIUM 500+D 500 MG-200 UNIT TAB No current facility-administered medications on file prior to visit. Social History Social History Tobacco Use Smoking status: Former Packs/day: 1.00 Years: 20.00 Pack years: 20.00 Types: Cigarettes Quit date: 10/06/1978 Years since quittin.7 Smokeless tobacco: Never Substance Use Topics Alcohol use: No Drug use: No REVIEW OF SYSTEMS: as above Reviewed relevant PMHx, PSHx, Social Hx, current medications and allergies. Review of Symptoms REVIEW OF SYSTEMS See HPI. All other systems are negative. EXAM: BP 140/52 (BP Site: Left Arm, BP Position: Sitting, BP Cuff Size: Regular Adult) Pulse 72 Resp 18 Wt 83.6 kg (184 lb 6.4 oz) BMI 34.84 kg/m General Appearance: Well appearing, alert, in no acute distress, well-hydrated, well nourished.. Skin: Skin color, texture, turgor normal, no suspicious rashes or lesions, Positives: Erythema: to RLE, swelling and venous stasis to R ankle. Improved from prior but still cellulitis noted for about3 inch diameter around leg. Ulcers healing to posterior leg. Head: Normocephalic, no masses, lesions, tenderness or abnormalities. Extremities: No deformities, edema, skin discoloration, clubbing or cyanosis. Good capillary refill. . Musculoskeletal: No joint swelling, deformity, or tenderness. Peripheral Pulses: Normal. Neurologic: Gait normal. Reflexes normal and symmetric. Sensation grossly intact.. Health Maintenance List SHINGRIX VACCINE(1 of 2) due on 10/28/2012 COVID-19 VACCINE(3 - Moderna risk series) due on 12/20/2020 ADVANCE DIRECTIVE DISCUSSION Never done INFLUENZA(1) due on 06/06/2022 DTAP,TDAP,TD(1 - Tdap) due on 07/10/2027 DIABETES SCREEN due on 12/04/2024 BONE DENSITY Completed PNEUMOCOCCAL: 65+ Completed ASSESSMENT/PLAN: 1. Cellulitis of right lower extremity - ICD9: 682.6, ICD10: L03.115 (primary diagnosis) Improving but still persistent. Not tolerating current antibiotic regimen. Start new antibiotic regimen with doxycycline BID x 10 day. Follow-up with me on Friday. If symptoms of nausea and lightheadedness do not improve within 2 days off of bactrim -- please reach out to office. - Photos taken in chart for comparison with next visit. - No lymphangetic streaking, this was defined for patient to watch for and to seek medical care immediately if appears - Area of cellulitis defined with pen, seek further attention if this area continues to enlarge - Follow up for recheck in three days 2. Venous stasis ulcer of right calf limited to breakdown of skin, unspecified whether varicose veins present (HCC) - ICD9: 454.0, ICD10: I83.012, L97.211 Improving from prior. See above. Start new antibiotic regimen. RTO in 3 days sooner if needed. Prescription instructions reviewed with patient as applicable. Potential red flag symptoms discussed with the patient. Reviewed appropriate action plan to take if red flag symptoms occur. Patient agreeable to treatment plan. Radha Long APRN.AYAN [address] [place] [address] documented in this encounterAcmc Healthcare [facility]09-07-2022 History of Present illness Narrative* Radha Long APRN.CNP - 06/12/2022 2:40 PM EDT Chief Complaint Patient presents with: er f/up: Rt lower leg and foot cellulitis states been on atb for 2 weeks levofloxacin 750 mg once daily for 5 days 2 left HPI Kiesha Colvin is a 81 year old female who presents here today for Above Complaints. Kiesha is an established patient of Dr. Nate MD. Kiesha is a new patient to me today. Concerns today.. [facility] Hospital follow-up -- Admitted to [facility] on 06/01/22 x 4 days d/t cellulitis of R foot and leg. Pt then returned to [facility] ED on06/09/22 d/t continued swelling and redness to leg. Given levofloxacin 750 mg. Still awaiting blood culture results from [facility]. Today... Still has 2 days left of levaquin. Was discharged from hospital admission on this oral ATB and given extension of same ATB at ED visitd/t no resolution. Pt presents with pen servando from ED visit. Redness is decreased from pen markings but still with significant redness, swelling and warmth to ankle area and foot. Pen markings up to above knee. Pt denies any fever/chills/night sweats -- did have these when presenting to hospital the first time. Reports wound ulcers were weeping with drainage during hospital admission but this has improved. No drainage currently. Ulcers are healing slightly per pt. No other concerns or complaints. Past medical history, appointments, medications, allergies reviewed. Previous Medical History PAST MEDICAL HISTORY Diagnosis Date ANEMIA NOS 04/21/2009 Colonoscopy in 10-11: tics and hems with no polpys Started iron as an inpt per Dr. Sales: pt reportedly giving multiple blood donations Hct 33% in 04-13, 06-14 Iron 72, Ferritin 162 (8-252), TIBC 344 in 06-14: stop iron supplements and repeat levels in follow up Anxiety state, unspecified Arthritis CELLULITIS NOS 04/18/2009 WBC 9 K, ESR 118 in 04-13 for cellulitis of R foot Empiric Levaquin for R foot in 04-13: rec to return to Podiatry Admitted 04-19-09 for cellulitis: discharged on Doxy and rec to ID (MRI of the R foot negative for osteo) Depressive disorder, not elsewhere classified Diverticulosis of colon (without mention of hemorrhage) Diverticulosis of colon (without mention of hemorrhage) Family history of malignant neoplasm of gastrointestinal tract family history of colon cancer Family history of malignant neoplasm of gastrointestinal tract Hypertension 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 To continue the vit D 50,000 one po weekly Previous Surgical History PAST SURGICAL HISTORY Procedure Laterality Date ABDOMINAL SURGERY HX APPENDECTOMY HX ARTHRP KNE CONDYLE&PLATU MEDIAL&LAT COMPARTMENTS Right 01/01/2016 Knee replacement, total ARTHRP KNE CONDYLE&PLATU MEDIAL&LAT COMPARTMENTS Left 09/09/2016 CHOLECYSTECTOMY Cholecystectomy COLONOSCOPY FLX DX W/COLLJ SPEC WHEN PFRMD 01/17/1999 Colonoscopy COLONOSCOPY FLX DX W/COLLJ SPEC WHEN PFRMD 10/10/2005 Colonoscopy COLONOSCOPY FLX DX W/COLLJ SPEC WHEN PFRMD 02/05/2011 COLONOSCOPY FLX DX W/COLLJ SPEC WHEN PFRMD 03/25/2016 Colonoscopy COLONOSCOPY FLX DX W/COLLJ SPEC WHEN PFRMD 02/20/2021 ESOPHAGOGASTRODUODENOSCOPY TRANSORAL DIAGNOSTIC 02/20/2021 JOINT REPLACEMENT HX OOPHORECTOMY PARTIAL/TOTAL UNI/BI Oophorectomy TOTAL ABDOMINAL HYSTERECT W/WO RMVL TUBE OVARY 1970s Hysterectomy, NIRMALA VAGINAL HYSTERECTOMY VASCULAR SURGERY PROCEDURE Family History FAMILY HISTORY Problem Relation Age of Onset Colon Cancer Mother diagnosed about age 45. at 49 Heart Father Colon Cancer Sister diagnosed (and passed) at age 68 None Sister coln polyp removed COPD Brother Stroke Brother IC hemorrhage Patient Allergies ALLERGIES Allergen Reactions Bee Stings [Other] Intolerance goes into shock, honey bees only Keflex [Cephalexin] Rash, Other: See Comments Headache Penicillins Current Medications Current Outpatient Medications on File Prior to Visit Medication Sig amLODIPine (NORVASC) 2.5 mg tablet Take 1 tablet by mouth once daily. PARoxetine (PAXIL) 20 mg tablet Take 1 tablet by mouth once daily. atorvastatin (LIPITOR) 20 mg tablet Take one (1) tablet by mouth every evening at 9pm omeprazole (PRILOSEC) 20 mg capsule Take 1 capsule by mouth daily before breakfast. 1/2 hr before meal. famotidine (PEPCID) 40 mg tablet Take 1 tablet by mouth once daily. Bisacodyl (DULCOLAX) 5 mg tab Use as directed for Miralax / Gatorade Bowel Prep Kit ferrous sulfate (IRON) 325 mg (65 mg iron) tablet Take 325 mg by mouth daily with breakfast. methotrexate 2.5 mg tablet 7 tablets Po once a week folic acid 1 mg tablet Take 2 mg by mouth once daily. fluticasone (FLONASE) 50 mcg/actuation nasal spray Use 2 Sprays in each nostril once daily. As needed. Rinse mouth after use. EPINEPHrine (EPIPEN 2-MAKI) 0.3 mg/0.3 mL auto-injector Inject 0.3 mL intramuscularly as needed. Cholecalciferol, Vitamin D3, 1,000 unit cap Take 2 capsules by mouth once daily. ASPIRIN 81 MG TAB Take one (1) tablet daily . MULTIVITAMIN TAB Take one(1) tablet daily. CALCIUM 500+D 500 MG-200 UNIT TAB No current facility-administered medications on file prior to visit. Social History Social History Tobacco Use Smoking status: Former Packs/day: 1.00 Years: 20.00 Pack years: 20.00 Types: Cigarettes Quit date: 10/06/1978 Years since quittin.7 Smokeless tobacco: Never Substance Use Topics Alcohol use: No Drug use: No REVIEW OF SYSTEMS: as above Reviewed relevant PMHx, PSHx, Social Hx, current medications and allergies. Review of Symptoms REVIEW OF SYSTEMS See HPI. All other systems are negative. EXAM: BP 136/58 (BP Site: Left Arm, BP Position: Sitting, BP Cuff Size: Large Adult) Pulse 60 Resp 14 Wt 86 kg (189 lb 9.6 oz) BMI 35.82 kg/m General Appearance: Well appearing, alert, in no acute distress, well-hydrated, well nourished.. Skin: Skin color, texture, turgor normal, no suspicious rashes or lesions, Positives: Erythema, swelling, warmth to touch, cellulitis to R foot, ankle, and jail up roberts. Much decrease from pen markings that are at/above knee. Healing ulcers to posterior leg/calf. Head: Normocephalic, no masses, lesions, tenderness or abnormalities. Back:no pain to palpation of vertebrae, good flexion and extension, good range of motion, no muscletenderness, reflexes are 2+ and symmetric, motor and sensory appear to be normal, negative SLR test, no evidence of scoliosis Lungs: Lungs clear to auscultation. No wheezing, rhonchi, rales.. Extremities: See above in skin section Musculoskeletal: No joint swelling, deformity, or tenderness. Peripheral Pulses: Normal. Health Maintenance List SHINGRIX VACCINE(1 of 2) due on 10/28/2012 COVID-19 VACCINE(3 - Moderna risk series) due on 12/20/2020 ADVANCE DIRECTIVE DISCUSSION Never done INFLUENZA(1) due on 06/06/2022 DTAP,TDAP,TD(1 - Tdap) due on 07/10/2027 DIABETES SCREEN due on 12/04/2024 BONE DENSITY Completed PNEUMOCOCCAL: 65+ Completed ASSESSMENT/PLAN: 1. Cellulitis of right lower extremity - ICD9: 682.6, ICD10: L03.115 - Begin treatment with Trimethoprim-sulfamethozazole (Bactrim) 2 DS PO BID x 10 days. - No lymphangetic streaking, this was defined for patient to watch for and to seek medical care immediately if appears - Area of cellulitis defined with pen, seek further attention if this area continues to enlarge - Follow up for recheck in three days RTO in 3 days, sooner if needed. Prescription instructions reviewed with patient as applicable. Potential red flag symptoms discussed with the patient. Reviewed appropriate action plan to take if red flag symptoms occur. Patient agreeable to treatment plan. Radha Long APRN.FORM STRIPPER [address] [place] [address] documented in this encounterA[facility] Miscellaneous Notes* Telephone Encounter - Treasure Wheeler Ma - 01/11/2022 11:46 AM EDT Labs reviewed by Dr. Sullivan from [facility] 12/04/2021 completed at [facility]. Abstracted into chart. documented in this encounterAcmc [facility]04-06-2022 Miscellaneous Notes* Letter - Mammography Coordinator - 01/09/2022 1:45 PM EDT January 09, 2022 PID: [id number] Kiesha Colvin [address] [place] [address] Dear Ms. Colvin, We are pleased to inform you that the results of your recent breast imaging exam on 01/09/2022 are normal. Early detection of cancer is very important. We also understand recommendations regarding breast cancer screening are controversial. Please discuss with your primary care provider which strategy is best for you and whether a mammogram is right for you. Your imaging studies and report will be kept on file at [facility] as part of your permanent medical record and are available for your continuing care. Thank you for allowing us to help in meeting your health care needs. Sincerely, Dr. Bermeo Interpreting Radiologist [facility] (Normal over 40) documented in this encounterAcmc Healthcare [facility]04-06-2022 History of Present illness Narrative* RT Ethan(R) - 01/09/2022 12:50 PM EDT Radiology Service Progress Note PATIENT NAME: Kiesha Colvin DATE OF SERVICE: January 09, 2022 TIME: 12:58 PM PATIENT IDENTITY VERIFICATION COMPLETED USING TWO (2) IDENTIFIERS: Name and Date of confirmedby patient verbally. FALL SCREENING: Has the patient had 2 falls in the last year or 1 fall with injury or currently using an Ambulatory Assistive Device (Walker, Cane, Wheelchair, Crutches, etc.)? No PATIENT GENDER DATA: Female. status: : No status: NO. PATIENT RELEVANT IMPLANT DATA REVIEWED: Not Applicable RADIOLOGY DEPARTMENT: Mammography PERIPHERAL IV DATA: Not applicable SIGNED BY: RT Ethan(R) January 09, 2022 12:58 PM documented in this encounterAcmc Healthcare [facility]02-28-2022 History of Present illness Narrative* Lianet Sullivan MD - 12/03/2021 3:41 PM EST This note was created using [employer]. Subjective Kiesha Colvin is a 81 year old female. Patient presents with: F/U 6 months SUBJECTIVE: Kiesha Colvin is a 81 year old year old lady here today for 6 month follow up appointment for review of medical conditions. Keeps getting sore in back of neck then moves around to front. Sometimes hurts to ear. Shooting pain. Sometimes when turns head to right. Otherwise, just sore. Sometimes goes down back and into shoulder. Started about 3 months ago. The other day started cutting material and afterwards hard to turn head. Wears good shoes with orthotics. Wore cast and helped wound heal; when stopped wearing, sore came back. Seeing Dr. Flower now. Told needed to keep weight off big toe. Also has calluses from losing fat pads. Told to wear even when gets up to go to the bathroom. RA discussed--still following with Dr. Haney. Noted nodular lesion in right palm close to ring finger. No contractures noted at this time. No pain. Blood pressure controlled without adverse effects from medications. Got flu shot already 3 months ago. Got when was in office with when saw Dr. Hernandez end of September or October. Does not want to get Booster for COVID yet. Follows with Dr. Lieberman at [facility] for CHARLENE and CPAP. PAST MEDICAL HISTORY Diagnosis Date ANEMIA NOS 04/21/2009 Colonoscopy in 10-11: tics and hems with no polpys Started iron as an inpt per Dr. Sales: pt reportedly giving multiple blood donations Hct 33% in 04-13, 06-14 Iron 72, Ferritin 162 (8-252), TIBC 344 in 06-14: stop iron supplements and repeat levels in follow up Anxiety state, unspecified Arthritis CELLULITIS NOS 04/18/2009 WBC 9 K, ESR 118 in 04-13 for cellulitis of R foot Empiric Levaquin for R foot in 04-13: rec to return to Podiatry Admitted 04-19-09 for cellulitis: discharged on Doxy and rec to ID (MRI of the R foot negative for osteo) Depressive disorder, not elsewhere classified Diverticulosis of colon (without mention of hemorrhage) Diverticulosis of colon (without mention of hemorrhage) Family history of malignant neoplasm of gastrointestinal tract family history of colon cancer Family history of malignant neoplasm of gastrointestinal tract Hypertension Idiopathic neuropathy 11/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 is 28.8. To continue the vit D 50,000 one po weekly Current Outpatient Medications Medication Sig amLODIPine (NORVASC) 2.5 mg tablet Take 1 tablet by mouth once daily. omeprazole (PRILOSEC) 20 mg capsule Take 1 capsule by mouth daily before breakfast. 1/2 hr before meal. PARoxetine (PAXIL) 20 mg tablet Take 1 tablet by mouth once daily. atorvastatin (LIPITOR) 20 mg tablet Take one (1) tablet by mouth every evening at 9pm ferrous sulfate (IRON) 325 mg (65 mg iron) tablet Take 325 mg by mouth daily with breakfast. methotrexate 2.5 mg tablet 7 tablets Po once a week folic acid 1 mg tablet Take 2 mg by mouth once daily. fluticasone (FLONASE) 50 mcg/actuation nasal spray Use 2 Sprays in each nostril once daily. As needed. Rinse mouth after use. EPINEPHrine (EPIPEN 2-MAKI) 0.3 mg/0.3 mL auto-injector Inject 0.3 mL intramuscularly as needed. Cholecalciferol, Vitamin D3, 1,000 unit cap Take 2 capsules by mouth once daily. ASPIRIN 81 MG TAB Take one (1) tablet daily . MULTIVITAMIN TAB Take one(1) tablet daily. CALCIUM 500+D 500 MG-200 UNIT TAB famotidine (PEPCID) 40 mg tablet Take 1 tablet by mouth once daily. Bisacodyl (DULCOLAX) 5 mg tab Use as directed for Miralax / Gatorade Bowel Prep Kit No current facility-administered medications for this visit. Review of Systems Objective BP 124/72 Pulse 76 Wt 90.2 kg (198 lb 12.8 oz) BMI 37.56 kg/m Last 5 Encounter BP Readings: Date: BP: 12/03/2021 124/72 05/21/2021 124/56 03/15/2021 114/48 01/30/2021 116/55 01/30/2021 120/50 Last 5 Encounter Wt Readings: Date: Wt: 12/03/2021 90.2 kg (198 lb 12.8 oz) 05/21/2021 90.3 kg (199 lb) 03/15/2021 93 kg (205 lb) 01/30/2021 91.6 kg (201 lb 15.1 oz) 01/30/2021 91.6 kg (202 lb) Physical Exam Constitutional: Appearance: Normal appearance. HENT: Head: Normocephalic. Eyes: Conjunctiva/sclera: Conjunctivae normal. Neck: Comments: hurts to turn toward the right Cardiovascular: Rate and Rhythm: Normal rate and regular rhythm. Heart sounds: Normal heart sounds. Pulmonary: Effort: Pulmonary effort is normal. Breath sounds: Normal breath sounds. Musculoskeletal: Cervical back: Normal range of motion. Skin: General: Skin is warm and dry. Neurological: General: No focal deficit present. Mental Status: She is alert and oriented to person, place, and time. Psychiatric: Attention and Perception: Attention and perception normal. Mood and Affect: Mood and affect normal. Speech: Speech normal. Behavior: Behavior normal. Thought Content: Thought content normal. Cognition and Memory: Cognition and memory normal. Judgment: Judgment normal. Hurts to turn to right. Good ROM otherwise. Muscles tender right side of neck and upper back posteriorly. Assessment and Plan ASSESSMENT/PLAN: 1. Anxiety state - ICD9: 300.00, ICD10: F41.1 (primary diagnosis) Continue present management. - PAROXETINE 20 MG TABLET 2. Essential hypertension - ICD9: 401.9, ICD10: I10 - good control - Continue current medication(s) - Recommended regular aerobic exercise. - Recommend home blood pressure monitoring, to bring results in on next visit - Discussed need and benefit for weight loss. - Goal of BP <130/80 3. Pure hypercholesterolemia - ICD9: 272.0, ICD10: E78.00 Further evaluation and treatment as indicated. - ATORVASTATIN 20 MG TABLET - LIPID PANEL, NONFASTING 4. Rheumatoid arthritis involving multiple sites with positive rheumatoid factor (HCC) - ICD9: 714.0, ICD10: M05.79 Continue present management. Further evaluation and treatment as indicated. Lianet Sullivan MD documented in this encounterAcmc [facility]01-21-2020 History of Past illness Narrative* Problem Noted Date Diagnosed Date Resolved Date Rheumatoid arthritis involvi ng multiple sites with positive rheumatoid factor 10/26/2019 07/21/20 23 Corns and callosities 12/03/20122014 Cellulitis and abscess of unspecified site 04/18/2009 11/23/2009 Overview: WBC 9 K, ESR 118 in 04-13 for cellulitis of R foot Empiric Levaquin for R foot in 04-13: rec to return to Podiatry Admitted 04-19-09 for cellulitis: discharged on Doxy and rec to ID (MRI of the R foot negative for osteo) Unspecified vitamin D deficiency 03/05/2009 01/01/2017 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 04/17/2007 11/23/2009 Diverticulosis of colon (wit hout mention of hemorrhage) 07/10/2017 documented as of this encounter (statuses as of 08/10/2023) [facility] History of Past illness Narrative* Problem Noted Date Diagnosed Date Resolved Date Rheumatoid arthritis involvi ng multiple sites with positive rheumatoid factor 10/26/2019 07/21/20 23 Corns and callosities 12/03/20122014 Cellulitis and abscess of unspecified site 04/18/2009 11/23/2009 Overview: WBC 9 K, ESR 118 in 04-13 for cellulitis of R foot Empiric Levaquin for R foot in 04-13: rec to return to Podiatry Admitted 04-19-09 for cellulitis: discharged on Doxy and rec to ID (MRI of the R foot negative for osteo) Unspecified vitamin D deficiency 03/05/2009 01/01/2017 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 04/17/2007 11/23/2009 Diverticulosis of colon (wit hout mention of hemorrhage) 07/10/2017 documented as of this encounter (statuses as of 08/10/2023) [facility] History of Past illness Narrative* Problem Noted Date Resolved Date Corns and callosities 12/03/2012 09/07/2015 Cellulitis and abscess of unspecified site 04/1811/23/2009 Overview: WBC 9 K, ESR 118 in 04-13 for cellulitis of R foot Empiric Levaquin for R foot in 04-13: rec to return to Podiatry Admitted 04-19-09 for cellulitis: discharged on Doxy and rec to ID (MRI of the R foot negative for osteo) Unspecified vitamin D deficiency 03/05/2009 01/01/2017 Unspecified hereditary and idiopathic peripheral neuropathy 04/17/2007 11/23/2009 Diverticulosis of colon (without mention of hemo rrhage) 07/10/2017 documented as of this encounter (statuses as of 01/10/2022) [facility] History of Past illness Narrative* Problem Noted Date Resolved Date Corns and callosities 12/03/2012 09/07/2015 Cellulitis and abscess of unspecified site 04/1811/23/2009 Overview: WBC 9 K, ESR 118 in 04-13 for cellulitis of R foot Empiric Levaquin for R foot in 04-13: rec to return to Podiatry Admitted 04-19-09 for cellulitis: discharged on Doxy and rec to ID (MRI of the R foot negative for osteo) Unspecified vitamin D deficiency 03/05/2009 01/01/2017 Unspecified hereditary and idiopathic peripheral neuropathy 04/17/2007 11/23/2009 Diverticulosis of colon (without mention of hemo rrhage) 07/10/2017 documented as of this encounter (statuses as of 01/11/2022) [facility] History of Past illness Narrative* Problem Noted Date Resolved Date Corns and callosities 12/03/2012 09/07/2015 Cellulitis and abscess of unspecified site 04/1811/23/2009 Overview: WBC 9 K, ESR 118 in 04-13 for cellulitis of R foot Empiric Levaquin for R foot in 04-13: rec to return to Podiatry Admitted 04-19-09 for cellulitis: discharged on Doxy and rec to ID (MRI of the R foot negative for osteo) Unspecified vitamin D deficiency 03/05/2009 01/01/2017 Unspecified hereditary and idiopathic peripheral neuropathy 04/17/2007 11/23/2009 Diverticulosis of colon (without mention of hemo rrhage) 07/10/2017 documented as of this encounter (statuses as of 01/11/2022) [facility] of Past illness Narrative* Problem Noted Date Resolved Date Corns and callosities 12/03/2012 09/07/2015 Cellulitis and abscess of unspecified site 04/1811/23/2009 Overview: WBC 9 K, ESR 118 in 04-13 for cellulitis of R foot Empiric Levaquin for R foot in 04-13: rec to return to Podiatry Admitted 04-19-09 for cellulitis: discharged on Doxy and rec to ID (MRI of the R foot negative for osteo) Unspecified vitamin D deficiency 03/05/2009 01/01/2017 Unspecified hereditary and idiopathic peripheral neuropathy 04/17/2007 11/23/2009 Diverticulosis of colon (without mention of hemo rrhage) 07/10/2017 documented as of this encounter (statuses as of 02/25/2022) [facility] History of Past illness Narrative* Problem Noted Date Resolved Date Corns and callosities 12/03/2012 09/07/2015 Cellulitis and abscess of unspecified site 04/1811/23/2009 Overview: WBC 9 K, ESR 118 in 04-13 for cellulitis of R foot Empiric Levaquin for R foot in 04-13: rec to return to Podiatry Admitted 04-19-09 for cellulitis: discharged on Doxy and rec to ID (MRI of the R foot negative for osteo) Unspecified vitamin D deficiency 03/05/2009 01/01/2017 Unspecified hereditary and idiopathic peripheral neuropathy 04/17/2007 11/23/2009 Diverticulosis of colon (without mention of hemo rrhage) 07/10/2017 documented as of this encounter (statuses as of 06/12/2022) [facility] of Past illness Narrative* Problem Noted Date Resolved Date Corns and callosities 12/03/2012 09/07/2015 Cellulitis and abscess of unspecified site 04/1811/23/2009 Overview: WBC 9 K, ESR 118 in 04-13 for cellulitis of R foot Empiric Levaquin for R foot in 04-13: rec to return to Podiatry Admitted 04-19-09 for cellulitis: discharged on Doxy and rec to ID (MRI of the R foot negative for osteo) Unspecified vitamin D deficiency 03/05/2009 01/01/2017 Unspecified hereditary and idiopathic peripheral neuropathy 04/17/2007 11/23/2009 Diverticulosis of colon (without mention of hemo rrhage) 07/10/2017 documented as of this encounter (statuses as of 06/17/2022) [facility] of Past illness Narrative* Problem Noted Date Resolved Date Corns and callosities 12/03/2012 09/07/2015 Cellulitis and abscess of unspecified site 04/1811/23/2009 Overview: WBC 9 K, ESR 118 in 04-13 for cellulitis of R foot Empiric Levaquin for R foot in 04-13: rec to return to Podiatry Admitted 04-19-09 for cellulitis: discharged on Doxy and rec to ID (MRI of the R foot negative for osteo) Unspecified vitamin D deficiency 03/05/2009 01/01/2017 Unspecified hereditary and idiopathic peripheral neuropathy 04/17/2007 11/23/2009 Diverticulosis of colon (without mention of hemo rrhage) 07/10/2017 documented as of this encounter (statuses as of 06/21/2022) [facility] of Past illness Narrative* Problem Noted Date Resolved Date Corns and callosities 12/03/2012 09/07/2015 Cellulitis and abscess of unspecified site 04/1811/23/2009 Overview: WBC 9 K, ESR 118 in 04-13 for cellulitis of R foot Empiric Levaquin for R foot in 04-13: rec to return to Podiatry Admitted 04-19-09 for cellulitis: discharged on Doxy and rec to ID (MRI of the R foot negative for osteo) Unspecified vitamin D deficiency 03/05/2009 01/01/2017 Unspecified hereditary and idiopathic peripheral neuropathy 04/17/2007 11/23/2009 Diverticulosis of colon (without mention of hemo rrhage) 07/10/2017 documented as of this encounter (statuses as of 06/28/2022) [facility] of Past illness Narrative* Problem Noted Date Resolved Date Corns and callosities 12/03/2012 09/07/2015 Cellulitis and abscess of unspecified site 04/1811/23/2009 Overview: WBC 9 K, ESR 118 in 04-13 for cellulitis of R foot Empiric Levaquin for R foot in 04-13: rec to return to Podiatry Admitted 04-19-09 for cellulitis: discharged on Doxy and rec to ID (MRI of the R foot negative for osteo) Unspecified vitamin D deficiency 03/05/2009 01/01/2017 Unspecified hereditary and idiopathic peripheral neuropathy 04/17/2007 11/23/2009 Diverticulosis of colon (without mention of hemo rrhage) 07/10/2017 documented as of this encounter (statuses as of 07/05/2022) [facility] of Past illness Narrative* Problem Noted Date Resolved Date Corns and callosities 12/03/2012 09/07/2015 Cellulitis and abscess of unspecified site 04/1811/23/2009 Overview: WBC 9 K, ESR 118 in 04-13 for cellulitis of R foot Empiric Levaquin for R foot in 04-13: rec to return to Podiatry Admitted 04-19-09 for cellulitis: discharged on Doxy and rec to ID (MRI of the R foot negative for osteo) Unspecified vitamin D deficiency 03/05/2009 01/01/2017 Unspecified hereditary and idiopathic peripheral neuropathy 04/17/2007 11/23/2009 Diverticulosis of colon (without mention of hemo rrhage) 07/10/2017 documented as of this encounter (statuses as of 02/03/2023) [facility] History of Past illness Narrative* Problem Noted Date Resolved Date Corns and callosities 12/03/2012 09/07/2015 Cellulitis and abscess of unspecified site 04/1811/23/2009 Overview: WBC 9 K, ESR 118 in 04-13 for cellulitis of R foot Empiric Levaquin for R foot in 04-13: rec to return to Podiatry Admitted 04-19-09 for cellulitis: discharged on Doxy and rec to ID (MRI of the R foot negative for osteo) Unspecified vitamin D deficiency 03/05/2009 01/01/2017 Unspecified hereditary and idiopathic peripheral neuropathy 04/17/2007 11/23/2009 Diverticulosis of colon (without mention of hemo rrhage) 07/10/2017 documented as of this encounter (statuses as of 04/07/2023) [facility] of Past illness Narrative* Problem Noted Date Diagnosed Date Resolved Date Corns and callosities 12/03/20122014 Cellulitis and abscess of unspecified site 04/18/2009 11/23/2009 Overview: WBC 9 K, ESR 118 in 04-13 for cellulitis of R foot Empiric Levaquin for R foot in 04-13: rec to return to Podiatry Admitted 7-15-09 for cellulitis: discharged on Doxy and rec to ID (MRI of the R foot negative for osteo) Unspecified vitamin D deficiency 03/05/2009 01/01/2017 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 04/17/2007 11/23/2009 Diverticulosis of colon (lenka rivera mention of hemorrhage) 07/10/2017 documented as of this encounter (statuses as of 04/15/2023) [facility] Appointment Date:03/30/2024 01:00:00 PM Scheduled Provider:DAISY BARBER MD Location:[facility] Appointment Type:[facility] blueKiwialuation + Plan note Future Appointments Appointment Date:04/29/2024 02:00:00 PM Scheduled Provider:DAISY BARBER MD Location:[facility]UROS Appointment Type:NS [facility] blueKiwialuation + Plan note Future Appointments Appointment Date:02/01/2025 01:30:00 PM Scheduled Provider:DAISY BARBER MD Location:[facility]UROS Appointment Type: OV Future Scheduled Tests Radiology* MRI Brain w/o Contrast 08/31/24 [facility] evaluation note* Diagnosis Screening mammogram for breast cancer documented [facility] this encounter [facility] Diagnosis Anxiety state- Primary Anxiety state, unspecified Essential hypertension Unspecified essential hypertension Pure hypercholesterolemia Rheumatoid arthritis involving multiple sites with positive rheumatoid factor (HCC) documented in this encounter [facility] noteNo assessment information availableWFairfield Medical Center Work Phone: Evaluation note* Diagnosis Onset Date Resolution Status Cellulitis of right leg natalia fatima [facility] Work Phone: Evztfrztlx note* Diagnosis Cellulitis of right lower extremity- Primary Cellulitis and abscess of leg, except foot documented in this encounter [facility] note* Diagnosis Cellulitis of right lower extremity- Primary Cellulitis and abscess of leg, except foot Venous stasis ulcer of right calf limited to breakdown of skin, unspecified whether varicose veins present (HCC) documented in this encounter [facility] note* Diagnosis Cellulitis of right lower extremity- Primary Cellulitis and abscess of leg, except foot [facility] Diagnosis Cellulitis of right lower extremity- Primary Cellulitis and abscess of leg, except foot Encounter for immunization Need for other specified prophylactic vaccination against single bacterial disease [facility] Diagnosis Onset Date Resolution Status Elevated troponin resolved Non-pressure chronic ulcer o f other part of right foot with fat layer exposed resolved Elevated troponin acute Essential hypertension chron ic [facility] Work Phone: Evaluation note* Diagnosis Onset Date Resolution Status Elevated troponin acute Essential hypertension chron ic CHARLENE (obstructive sleep apnea) acute [facility] Work Phone: Evaluation note* Diagnosis Anxiety state Anxiety state, unspecified Essential hypertension Unspecified essential hypertension Pure hypercholesterolemia [facility] Diagnosis Encounter for screening mammogram for malignant neoplasm of breast- Primary Other screening mammogram [facility] Diagnosis Encounter for screening mammogram for malignant neoplasm of breast Other screening mammogram [facility] Diagnosis Osteopenia of neck of right femur- Primary Essential hypertension Unspecified essential hypertension Pure hypercholesterolemia Anxiety state Anxiety state, unspecified Decreased hearing of right ear Dysfunction of right eustachian tube Dysfunction of Eustachian tube [facility] Diagnosis Foot drop, right- Primary Other acquired deformity of ankle and foot [facility] Diagnosis Coordination problem- Primary Lack of coordination Foot drop, right Other acquired deformity of ankle and foot [facility] Diagnosis Open wound of right foot excluding one or more toes, initial encounter- Primary Cellulitis of other specified site [facility]* Diagnosis Hypertension- Primary Unspecified essential hypertension Urge incontinence of urine Urge incontinence Need for prophylactic vaccination and inoculation against influenza Right knee pain Pain in joint, lower leg Right ankle pain Pain in joint, ankle and foot Stucco keratosis Acquired keratoderma Primary hypertension- Primary Unspecified essential hypertension Muscle spasm Spasm of muscle Pure hypercholesterolemia Vitamin D deficiency Unspecified vitamin D deficiency Elevated glucose Other abnormal glucose Obesity, Class II, BMI 35-39.9 Obesity, unspecified 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 Mononeuritis of unspecified site Foot drop, right Other acquired deformity of ankle and foot Chronic idiopathic constipation Unspecified constipation Encounter for long-term current use of medication Encounter for immunization Need for other specified prophylactic vaccination against single bacterial disease [facility]* Diagnosis Hypertension- Primary Unspecified essential hypertension Urge incontinence of urine Urge incontinence Need for prophylactic vaccination and inoculation against influenza Right knee pain Pain in joint, lower leg Right ankle pain Pain in joint, ankle and foot Stucco keratosis Acquired keratoderma S/P foot surgery- Primary Other postprocedural status Blood loss anemia Iron deficiency anemia secondary to blood loss (chronic) Primary hypertension Unspecified essential hypertension Encounter for immunization Need for other specified prophylactic vaccination against single bacterial disease Screening for depression [facility]* Diagnosis Hypertension- Primary Unspecified essential hypertension Urge incontinence of urine Urge incontinence Need for prophylactic vaccination and inoculation against influenza Right knee pain Pain in joint, lower leg Right ankle pain Pain in joint, ankle and foot Stucco keratosis Acquired keratoderma Pressure ulcer of right heel, stage 3 (HCC)- Primary [facility]* Diagnosis Hypertension- Primary Unspecified essential hypertension Urge incontinence of urine Urge incontinence Need for prophylactic vaccination and inoculation against influenza Right knee pain Pain in joint, lower leg Right ankle pain Pain in joint, ankle and foot Stucco keratosis Acquired keratoderma Preop testing Preoperative examination, unspecified documented in this encounter [facility] note* Diagnosis Hypertension- Primary Unspecified essential hypertension Urge incontinence of urine Urge incontinence Need for prophylactic vaccination and inoculation against influenza Right knee pain Pain in joint, lower leg Right ankle pain Pain in joint, ankle and foot Stucco keratosis Acquired keratoderma Urge incontinence of urine- Primary Urge incontinence Irritable bladder Other specified disorders of bladder Osteopenia of neck of right femur Anxiety state Anxiety state, unspecified H/O bee sting allergy Allergy to insects and arachnids Ulcer of right foot, unspecified ulcer stage (HCC) Encounter for long-term current use of medication Primary hypertension Unspecified essential hypertension Osteoarthrosis multiple sites, 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 generalized Osteoarthrosis involving, or with mention of more than one site, but 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 generalized, site unspecified Stage 3a chronic kidney disease (HCC) IFG (impaired fasting glucose) Impaired fasting glucose [facility] Hypertension- Primary Unspecified essential hypertension Urge incontinence of urine Urge incontinence Need for prophylactic vaccination and inoculation against influenza Right knee pain Pain in joint, lower leg Right ankle pain Pain in joint, ankle and foot Stucco keratosis Acquired keratoderma Pure hypercholesterolemia Anxiety state Anxiety state, unspecified documented in this encounter [facility] course Narrative No data available for this section [facility] Hospital Discharge instructions No data available for this section [facility] Procedure note* Jm Arriaga HIM: PERFORM Event Display: Procedure Note Authored Date: [id number] [facility] Progress note No data available for this section [facility] Reason for referral (narrative)* Diagnostic Procedure Only (Routine) - Closed Specialty Diagnoses / Procedures Referred By Jennie goldstein Referred To Contact [facility] Diagnoses Screening mammogram for breast cancer Procedures LAN SCREENING SCREENING MAMMOGRAPHY BI 2-VIEW BREAST INC CAD Shanique Flowers APRN.CNP [address] [place] [address] [facility] [address] [place] [address] Referral ID Status Reason Start Date Expiration Date V isits Requested Visits Authorized [id number] Closed Auto-Generate d Referral 12/27/2021 10/05/2022 1 1 [facility] for referral (narrative)* Diagnostic Procedure Only (Routine) - Authorized Specialty Diagnoses / Procedures Referred By Jennie goldstein Referred To Contact [facility] Diagnoses Encounter for screening mammogram for malignant neoplasm of breast Procedures LAN SCREENING SCREENING MAMMOGRAPHY BI 2-VIEW BREAST INC CAD Sho Bruno APRN.CNP [address] [place] [address] [facility] [address] [place] [address] Referral ID Status Reason Start Date Expiration Date Visits Requested Visits Authorized [id number] Authorized Auto-Generat ed Referral 04/07/2023 05/06/2024 1 1 [facility] for referral (narrative)* Diagnostic Procedure Only (Routine) - Closed Specialty Diagnoses / Procedures Referred By Contac t Referred To Contact [facility] Diagnoses Encounter for screening mammogram for malignant neoplasm of breast Procedures LAN SCREENING SCREENING MAMMOGRAPHY BI 2-VIEW BREAST INC CAD Sho Bruno APRN.FORM STRIPPER [address] [place] [address] [facility] [address] [place] [address] Referral ID Status Reason Start Date Expiration Date V isits Requested Visits Authorized [id number] Closed Auto-Generate d Referral 04/07/2023 05/06/2024 1 1 [facility] for referral (narrative)No reason for referral [facility] Narrative* Diagnostic Procedure Only (Routine) - Closed Specialty Diagnoses / Procedures Referred By Contac t Referred To Contact [facility] Diagnoses Screening mammogram for breast cancer Procedures LAN SCREENING SCREENING MAMMOGRAPHY BI 2-VIEW BREAST INC CAD Shanique Flowers APRN.FORM STRIPPER [address] [place] [address] [facility] [address] [place] [address] Referral ID Status Reason Start Date Expiration Date V isits Requested Visits Authorized [id number] Closed Auto-Generate d Referral 12/27/2021 10/05/2022 1 1 [facility] for visit Narrative* Diagnostic Procedure Only (Routine) - Closed Specialty Diagnoses / Procedures Referred By Contac t Referred To Contact [facility] Diagnoses Encounter for screening mammogram for malignant neoplasm of breast Procedures LAN SCREENING SCREENING MAMMOGRAPHY BI 2-VIEW BREAST INC CAD Sho Bruno APRN.FORM STRIPPER [address] [place] [address] [facility] [address] [place] [address] Referral ID Status Reason Start Date Expiration Date V isits Requested Visits Authorized [id number] Closed Auto-Generate d Referral 04/07/2023 05/06/2024 1 1 [facility] for visit Narrative* Auth/Cert (Routine) Specialty Diagnoses / Procedures Referred By Jennie t Referred To Contact Diagnoses Other acute osteomyelitis, right ankle and foot (HCC) Other acute osteomyelitis, right ankle and foot (HCC) [M86.171] Procedures PREP SITE F/S/N/H/F/G/M/D GT 1ST 100 SQ CM/1PCT TISSUE REARR MOUTH,FORE <10SCM SUB GRFT F/S/N/H/F/G/M/D /<100SCM /<1ST 25 SCM CREATION RECIPIENT SITE VIA EXCISION; FEET 1ST 100SQCM ADULT TRANSFER / REARRANGEMENT ADJACENT TISSUE FOOT DEFECT 10 SQ CM OR LESS APPLICATION OF SKIN SUBSTITUTE GRAFT TO FEET AND/OR MULTIPLE DIGITS TOTAL WOUND SURFACE AREA UP TO 100 SQ CM FIRST 25 SQ CM OR LESS WOUND SURFACE AREA [facility] [address] [facility] [address] Phone: tel: fax: Referral ID Status Reason Start Date Expiration Date Visits Re quested Visits Authorized [id number] 1 1 [facility] Advance Directives No Advanced Directives Records FoundDocuments on File Type Date Recorded Patient Community Pharmacist Expl anation Advance Directive(s) 02/20/2021 9:19 AM Advance Directive(s) 03/25/2016 1:45 PM Advance Directive(s) 03/15/2016 9:50 AM Documents on File Type Date Recorded Patient Community Pharmacist Expl anation Advance Directive(s) 02/20/2021 9:19 AM Advance Directive(s) 03/25/2016 1:45 PM Advance Directive(s) 03/15/2016 9:50 AM Advance Directive Response Recorded Date/ Time Advance Directives Yes February 23 11:16am Living Will Yes February 23, 2019 1 1:16am Power of Portable Irrigation Operator Yes February 23, 2019 11:16am Advance Directive Response Recorded Date/ Time Name of Medical Power of Portable Irrigation Operator Matthew Colvin April 12, 2022 12:39am Advance Directives Yes February 23 11:16am Living Will Yes April 12, 2022 1 2:39am Power of Portable Irrigation Operator Yes April 12, 2022 12:39am Advance Directive Response Recorded Date/ Time Name of Medical Power of Portable Irrigation Operator Matthew Colvin April 12, 2022 12:39am Name of Medical Power of Portable Irrigation Operator armond green. June 01, 2022 10:28am Advance Directives Yes February 23 9 11:16am Living Will Yes June 01 10:28am Power of Portable Irrigation Operator Yes June 01 10:28am Advance Directive Response Recorded Date/ Time Name of Medical Power of Portable Irrigation Operator Silvana Colvin, Robert Colvin June 01, 2022 1:10pm Name of Medical Power of Portable Irrigation Operator SILVANA COLVIN- June 09, 2022 9:55am Advance Directives Yes February 23 9 10:16am Living Will Yes June 09 9:55am Power of Portable Irrigation Operator Yes June 09, 2022 9:55am Advance Directive Response Recorded Date/ Time Advance Directives Yes February 23 9 10:16am Living Will Yes June 09 9:55am Power of Portable Irrigation Operator Yes June 09, 2022 9:55am Advance Directive Response Recorded Date/ Time Advance Directives Yes February 23 9 11:16am Living Will Yes June 09 10:55am Power of Portable Irrigation Operator Yes June 09, 2022 10:55am Advance Directive Response Recorded Date/ Time Advance Directives Yes February 23 9 11:16am Chief Complaint and Reason for Visit Chief Complaint WRIST/SHOULDER INJUR Y Chief Complaint WRIST/SHOULDER INJUR Y CHRONIC ULCER ON RIGHT FOOT Reason for Visit Cellulitis of right leg Chief Complaint CHRONIC ULCER ON RIG HT FOOT CHRONIC ULCER ON RIGHT FOOT CHRONIC ULCER ON RIGHT FOOT CHRONIC ULCER ON RIGHT FOOT CHRONIC ULCER ON RIGHT FOOT CELLULITIS Cellulitis Amb Documentation abn ekg Reason for Visit Elevated troponin 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 exposed Elevated troponin Essential hypertension Chief Complaint Amb Documentation abn ekg 1 Y FU CAD Coronary artery disease Reason for Visit Elevated troponin Essential hypertension CHARLENE (obstructive sleep apnea) Chief Complaint abn ekg 1 Y FU CAD Coronary artery disease PAIN- COPY PCP Reason for Visit Elevated troponin Essential hypertension CHARLENE (obstructive sleep apnea) Chief Complaint CAD Coronary artery disease PAIN- COPY PCP PAIN- COPY PCP Chief Complaint Admit Date Radiculopathy, lumbar region November 172024 3:31pm WEAKNESS, NUMBNESS March 09, 2025 1:49p m Family History No Family History Records Found Relationship Condition Age at Onset Recorded Date/T smith father Cardiac disease Unknown mother Malignant neoplasm of colon Unknown sister Malignant neoplasm of colon Unknown brother Cerebrovascular accident (CVA) Unknown Chronic obstructive pulmonary disease Unk nown Summary Purpose Additional Source Comments Source Comments (unrecognize d section and content) In the event this informatio n is protected by the Federal Confidentiality of Alcohol and Drug Abuse Patient Records regulations: The Federal rules restrict any use of the information to criminally investigate or prosecute any alcohol or drug abuse patient.[facility] the event this information is protected by the Federal Confidentiality of Alcohol and Drug Abuse Patient Records regulations: The Federal rules restrict any use of the information to criminally investigate or prosecute any alcohol or drug abuse patient.[facility] the event this information is protected by the Federal Confidentiality of Alcohol and Drug Abuse Patient Records regulations: The Federal rules restrict any use of the information to criminally investigate or prosecute any alcohol or drug abuse patient.[facility] the event this information is protected by the Federal Confidentiality of Alcohol and Drug Abuse Patient Records regulations: The Federal rules restrict any use of the information to criminally investigate or prosecute any alcohol or drug abuse patient.[facility] the event this information is protected by the Federal Confidentiality of Alcohol and Drug Abuse Patient Records regulations: The Federal rules restrict any use of the information to criminally investigate or prosecute any alcohol or drug abuse patient.[facility] the event this information is protected by the Federal Confidentiality of Alcohol and Drug Abuse Patient Records regulations: The Federal rules restrict any use of the information to criminally investigate or prosecute any alcohol or drug abuse patient.[facility] the event this information is protected by the Federal Confidentiality of Alcohol and Drug Abuse Patient Records regulations: The Federal rules restrict any use of the information to criminally investigate or prosecute any alcohol or drug abuse patient.[facility] the event this information is protected by the Federal Confidentiality of Alcohol and Drug Abuse Patient Records regulations: The Federal rules restrict any use of the information to criminally investigate or prosecute any alcohol or drug abuse patient.[facility] the event this information is protected by the Federal Confidentiality of Alcohol and Drug Abuse Patient Records regulations: The Federal rules restrict any use of the information to criminally investigate or prosecute any alcohol or drug abuse patient.[facility] the event this information is protected by the Federal Confidentiality of Alcohol and Drug Abuse Patient Records regulations: The Federal rules restrict any use of the information to criminally investigate or prosecute any alcohol or drug abuse patient.[facility] the event this information is protected by the Federal Confidentiality of Alcohol and Drug Abuse Patient Records regulations: The Federal rules restrict any use of the information to criminally investigate or prosecute any alcohol or drug abuse patient.[facility] the event this information is protected by the Federal Confidentiality of Alcohol and Drug Abuse Patient Records regulations: The Federal rules restrict any use of the information to criminally investigate or prosecute any alcohol or drug abuse patient.[facility] the event this information is protected by the Federal Confidentiality of Alcohol and Drug Abuse Patient Records regulations: The Federal rules restrict any use of the information to criminally investigate or prosecute any alcohol or drug abuse patient.[facility] the event this information is protected by the Federal Confidentiality of Alcohol and Drug Abuse Patient Records regulations: The Federal rules restrict any use of the information to criminally investigate or prosecute any alcohol or drug abuse patient.[facility] the event this information is protected by the Federal Confidentiality of Alcohol and Drug Abuse Patient Records regulations: The Federal rules restrict any use of the information to criminally investigate or prosecute any alcohol or drug abuse patient.[facility] the event this information is protected by the Federal Confidentiality of Alcohol and Drug Abuse Patient Records regulations: The Federal rules restrict any use of the information to criminally investigate or prosecute any alcohol or drug abuse patient.[facility] the event this information is protected by the Federal Confidentiality of Alcohol and Drug Abuse Patient Records regulations: The Federal rules restrict any use of the information to criminally investigate or prosecute any alcohol or drug abuse patient.[facility] the event this information is protected by the Federal Confidentiality of Alcohol and Drug Abuse Patient Records regulations: The Federal rules restrict any use of the information to criminally investigate or prosecute any alcohol or drug abuse patient.[facility] the event this information is protected by the Federal Confidentiality of Alcohol and Drug Abuse Patient Records regulations: The Federal rules restrict any use of the information to criminally investigate or prosecute any alcohol or drug abuse patient.[facility] the event this information is protected by the Federal Confidentiality of Alcohol and Drug Abuse Patient Records regulations: The Federal rules restrict any use of the information to criminally investigate or prosecute any alcohol or drug abuse patient.[facility] the event this information is protected by the Federal Confidentiality of Alcohol and Drug Abuse Patient Records regulations: The Federal rules restrict any use of the information to criminally investigate or prosecute any alcohol or drug abuse patient.[facility] the event this information is protected by the Federal Confidentiality of Alcohol and Drug Abuse Patient Records regulations: The Federal rules restrict any use of the information to criminally investigate or prosecute any alcohol or drug abuse patient.[facility] the event this information is protected by the Federal Confidentiality of Alcohol and Drug Abuse Patient Records regulations: The Federal rules restrict any use of the information to criminally investigate or prosecute any alcohol or drug abuse patient.[facility] the event this information is protected by the Federal Confidentiality of Alcohol and Drug Abuse Patient Records regulations: The Federal rules restrict any use of the information to criminally investigate or prosecute any alcohol or drug abuse patient.[facility] the event this information is protected by the Federal Confidentiality of Alcohol and Drug Abuse Patient Records regulations: The Federal rules restrict any use of the information to criminally investigate or prosecute any alcohol or drug abuse patient.[facility] the event this information is protected by the Federal Confidentiality of Alcohol and Drug Abuse Patient Records regulations: The Federal rules restrict any use of the information to criminally investigate or prosecute any alcohol or drug abuse patient.[facility] the event this information is protected by the Federal Confidentiality of Alcohol and Drug Abuse Patient Records regulations: The Federal rules restrict any use of the information to criminally investigate or prosecute any alcohol or drug abuse patient.[facility] the event this information is protected by the Federal Confidentiality of Alcohol and Drug Abuse Patient Records regulations: The Federal rules restrict any use of the information to criminally investigate or prosecute any alcohol or drug abuse patient.[facility] the event this information is protected by the Federal Confidentiality of Alcohol and Drug Abuse Patient Records regulations: The Federal rules restrict any use of the information to criminally investigate or prosecute any alcohol or drug abuse patient.[facility] the event this information is protected by the Federal Confidentiality of Alcohol and Drug Abuse Patient Records regulations: The Federal rules restrict any use of the information to criminally investigate or prosecute any alcohol or drug abuse patient.[facility]igh[facility] the event this information is protected by the Federal Confidentiality of Alcohol and Drug Abuse Patient Records regulations: The Federal rules restrict any use of the information to criminally investigate or prosecute any alcohol or drug abuse patient.[facility]igh[facility] the event this information is protected by the Federal Confidentiality of Alcohol and Drug Abuse Patient Records regulations: The Federal rules restrict any use of the information to criminally investigate or prosecute any alcohol or drug abuse patient.[facility] the event this information is protected by the Federal Confidentiality of Alcohol and Drug Abuse Patient Records regulations: The Federal rules restrict any use of the information to criminally investigate or prosecute any alcohol or drug abuse patient.[facility]igh[facility] the event this information is protected by the Federal Confidentiality of Alcohol and Drug Abuse Patient Records regulations: The Federal rules restrict any use of the information to criminally investigate or prosecute any alcohol or drug abuse patient.[facility]igh[facility] the event this information is protected by the Federal Confidentiality of Alcohol and Drug Abuse Patient Records regulations: The Federal rules restrict any use of the information to criminally investigate or prosecute any alcohol or drug abuse patient.[facility]igh[facility] the event this information is protected by the Federal Confidentiality of Alcohol and Drug Abuse Patient Records regulations: The Federal rules restrict any use of the information to criminally investigate or prosecute any alcohol or drug abuse patient.[facility]ighIn the event this information is protected by the Federal Confidentiality of Alcohol and Drug Abuse Patient Records regulations: The Federal rules restrict any use of the information to criminally investigate or prosecute any alcohol or drug abuse patient.[facility] Care Teams (unrecognized sec tion and content) Molding Associate Relationship Specialty Start Date End Date Lianet Sullivan MD [address] [place] [address] PCP - General Internal Medicine 10/26/19 Molding Associate Relationship Specialty Start Date End Date Lianet Sullivan MD [address] [place], [place] [id number] PCP - General Internal Medicine 10/26/19 Molding Associate Relationship Specialty Start Date End Date Lianet Sullivan MD [address] [place] [address] PCP - General Internal Medicine 10/26/19 Molding Associate Relationship Specialty Start Date End Date Lianet Sullivan MD [address] [place] [address] PCP - General Internal Medicine 10/26/19 Molding Associate Relationship Specialty Start Date End Date Lianet Sullivan MD [address] [place] [address] PCP - General Internal Medicine 10/26/19 Molding Associate Relationship Specialty Start Date End Date Lianet Sullivan MD [address] [place] [address] PCP - General Internal Medicine 10/26/19 Molding Associate Relationship Specialty Start Date End Date Lianet Sullivan MD [address] [place] [address] PCP - General Internal Medicine 10/26/19 Molding Associate Relationship Specialty Start Date End Date Lianet Sullivan MD [address] [place] [address] PCP - General Internal Medicine 10/26/19 Team Status: Active Member Role Status Dates Dr. Topher Hernandez MD Family Provider Active Dr. Lianet Sullivan MD Primary Care Provider Active Team Status: Inactive Member Role Status Dates Dr. Lianet Sullivan MD Primary Care Provider, Referr ing Provider Active Dr. Jose Carlos Lieberman DO Attending Provider Active Team Status: Inactive Member Role Status Dates Dr. Lianet Sullivan MD Primary Care Provider, Referr ing Provider Active Dr. Napoleon Akbar MD Attending Provider Active Team Status: Active Member Role Status Dates Dr. Lianet Sullivan MD Primary Care Provider Active Tasia Nolt Attending Provider Active Team Status: Active Member Role Status Dates Dr. Lianet Sullivan MD Primary Care Provider Active Dr. Napoleon Akbar MD Attending Provider, Other Provide r Active Team Status: Inactive Member Role Status Dates Dr. Lianet Sullivan MD Primary Care Provider Active Dr. Aga Haney MD Attending Provider, Referring Provider Active Team Status: Inactive Member Role Status Dates Dr. Lianet Sullivan MD Primary Care Provider Active Dr. Napoleon Akbar MD Attending Provider Active Team Status: Active Member Role Status Dates Dr. Lianet Sullivan MD Primary Care Provider Active Dr. Napoleon Akbar MD Attending Provider, Referring Provider, Other Provider Active Molding Associate Relationship Specialty Start Date End Date Lianet Sullivan MD [address] [place] [address] PCP - General Internal Medicine 10/26/19 Molding Associate Relationship Specialty Start Date End Date Lianet Sullivan MD [address] [place] [address] PCP - General Internal Medicine 10/26/19 Molding Associate Relationship Specialty Start Date End Date Lianet Sullivan MD [address] [place] [address] PCP - General Internal Medicine 10/26/19 Molding Associate Relationship Specialty Start Date End Date Lianet Sullivan MD [address] [place] [address] PCP - General Internal Medicine 10/26/19 Molding Associate Relationship Specialty Start Date End Date Lianet Sullivan MD [address] [place] [address] PCP - General Internal Medicine 10/26/19 Molding Associate Relationship Specialty Start Date End Date Lianet Sullivan MD [address] [place] [address] PCP - General Internal Medicine 10/26/19 Molding Associate Relationship Specialty Start Date End Date Lianet Sullivan MD [address] [place] [address] PCP - General Internal Medicine 10/26/19 Molding Associate Relationship Specialty Start Date End Date Lianet Sullivan MD [address] [place] [address] PCP - General Internal Medicine 10/26/19 Molding Associate Relationship Specialty Start Date End Date Lianet Sullivan MD [address] [place] [address] PCP - General Internal Medicine 10/26/19 Molding Associate Relationship Specialty Start Date End Date Lianet Sullivan MD [address] [place] [address] PCP - General Internal Medicine 10/26/19 Molding Associate Relationship Specialty Start Date End Date Lianet Sullivan MD [address] [place] [address] PCP - General Internal Medicine 10/26/19 Molding Associate Relationship Specialty Start Date End Date Lianet Sullivan MD [address] [place] [address] PCP - General Internal Medicine 10/26/19 Molding Associate Relationship Specialty Start Date End Date Lianet Sullivan MD [address] [place] [address] PCP - General Internal Medicine 10/26/19 Molding Associate Relationship Specialty Start Date End Date Lianet Sullivan MD [address] [place] [address] PCP - General Internal Medicine 10/26/19 Molding Associate Relationship Specialty Start Date End Date Lianet Sullivan MD [address] [place] [address] PCP - General Internal Medicine 10/26/19 Antolin Coombs, WINTER INTERN.SCENE SHIFTER [address] [place] [address] Estimator And Drafter Internal Medicine 09/13/24 Sho Bruno WINTER INTERN.FORM STRIPPER [address] [place] [address] Estimator And Drafter Internal Medicine 09/13/24 Molding Associate Relationship Specialty Start Date End Date Lianet Sullivan MD [address] [place] [address] PCP - General Internal Medicine 10/26/19 Antolin Coombs, WINTER INTERN.SCENE SHIFTER [address] [place] [address] Estimator And Drafter Internal Medicine 09/13/24 Sho Bruno WINTER INTERN.FORM STRIPPER [address] [place] [address] Estimator And Drafter Internal Medicine 09/13/24 Molding Associate Relationship Specialty Start Date End Date Lianet Sullivan MD [address] [place] [address] PCP - General Internal Medicine 10/26/19 Antolin Coombs, WINTER INTERN.SCENE SHIFTER [address] [place] [address] Estimator And Drafter Internal Medicine 09/13/24 Sho Bruno APRN.FORM STRIPPER [address] [place] [address] Estimator And Drafter Internal Medicine 12/28/24 Molding Associate Relationship Specialty Start Date End Date Lianet Sullivan MD [address] [place] [address] PCP - General Internal Medicine 10/26/19 Antolin Coombs APRN.SCENE SHIFTER [address] [place] [address] Estimator And Drafter Internal Medicine 09/13/24 Sho Bruno APRN.FORM STRIPPER [address] [place] [address] Estimator And Drafter Internal Medicine 12/28/24 Molding Associate Relationship Specialty Start Date End Date Lianet Sullivan MD [address] [place] [address] PCP - General Internal Medicine 10/26/19 Antolin Coombs APRN.SCENE SHIFTER [address] [place] [address] Estimator And Drafter Internal Medicine 09/13/24 Sho Bruno APRN.FORM STRIPPER [address] [place] [address] Estimator And Drafter Internal Medicine 09/13/24 12/24/24 Sho Bruno APRN.FORM STRIPPER [address] [place] [address] Estimator And Drafter Internal Medicine 12/28/24 Team Status: Active Member Role Status Dates Dr. Lianet Sullivan MD Primary Care Provider Active Team Status: Inactive Member Role Status Dates Dr. Lianet Sullivan MD Primary Care Provider Active Start: November 17, 2024 End: November 17, 2024 Dr. Devyn Whitney MD Attending Provider Active Start: November 17, 2024 End: November 17, 2024 Dr. Devyn Whitney MD Referring Provider Active Start: November 17, 2024 End: November 17, 2024 Team Status: Inactive Member Role Status Dates Dr. Lianet Sullivan MD Primary Care Provider Active Start: March 09, 2025 End: March 09, 2025 Dr. Daisy Barber MD Attending Provider Activ e Start: March 09, 2025 End: March 09, 2025 Dr. Daisy Barber MD Referring Provider Activ e Start: March 09, 2025 End: March 09, 2025 Molding Associate Relationship Specialty Start Date End Date Lianet Sullivan MD [address] [place] [address] PCP - General Internal Medicine 10/26/19 Sho Bruno, CECILIA.FORM STRIPPER [address] [place] [address] [facility] Internal Medicine 12/28/24 Antolin Coombs APRN.SCENE SHIFTER [address] [place] [address] [facility] Internal Medicine 02/23/25 Molding Associate Relationship Specialty Start Date End Date Lianet Sullivan MD [address] [place] [address] PCP - General Internal Medicine 10/26/19 Sho Bruno APRN.FORM STRIPPER [address] [place] [address] Estimator [employer] Drafter Internal Medicine 12/28/24 Malvin Antolin, CECILIA.SCENE SHIFTER [address] [place] [address] Estimator And Drafter Internal Medicine 02/23/25 Reason for Visit (unrecogniz ed section and content) Reason Comments Results Reason Comments F/U 6 months Reason Comments er f/up Rt lower leg and jessica t cellulitis states been on atb for 2 weeks levofloxacin 750 mg once daily for 5 days 2 left Reason Comments recheck cellulitis on leg Pt states legs look better but very tired , no energy no appetite and dizzy . Feels may be atb Reason Comments Follow Up Reason Comments Follow Up cellulitis Reason Comments Edema Follow up cellulitis Reason Comments Orders Reason Comments Patient Update- [facility] Reason Comments Home Health OT Plan of Care OT Delay of Care Update Reason Onset Date Comments Refill Request 03/19/2024 Reason Comments [facility], OT - constipated Reason Onset Date Comments Refill Request 03/25/2024 Reason Comments Medication Question for constipation iss ues Reason Comments [facility] PT Plan of Care Reason Comments Hospital F/U [facility] Rehab discharge 02/27/24 Reason Comments Orders Reason Comments [facility] requesting orders to be faxed for outpt OT and PT Reason Comments Patient Update Reason Comments Wound Check right foot Reason Comments FYI-care home health update Reason Comments Hospital F/U Reason Onset Date Comments Home Care 12/21/2024 Reason Comments 6 month f/up Reason Comments Forms Reason Onset Date Comments Refill Request 03/29/2025 Goals (unrecognized section and content) Goals may be documented in a n alternate sectionGoals may be documented in an alternate sectionGoals may be documented in an alternate sectionGoals may be documented in an alternate sectionGoals may be documented in an alternate sectionGoals may be documented in an alternate section No data available for this section No data available for this section No data available for this section No data available for this section No data available for this section No data available for this section No data available for this sectionGoals may be documented in an alternate section INFORMATION SOURCE (unrecogn ized section and content) DATE CREATED AUTHOR 05/17/2024 [facility] DATE CREATED AUTHOR AUTHOR'S ORGANIZ ATION 11/23/2024 [facility] DATE CREATED AUTHOR AUTHOR'S ORGANIZ ATION 01/10/2025 [facility] DATE CREATED AUTHOR AUTHOR'S ORGANIZ ATION 02/19/2025 [facility] DATE CREATED AUTHOR AUTHOR'S ORGANIZ ATION 03/09/2025 [facility] DATE CREATED AUTHOR AUTHOR'S ORGANIZ ATION 04/16/2025 [facility] Scheduled Active and Recently Administ ered Medications (unrecognized section and content) Medication Order 01/05/2025 01/06/2025 01/07/2025 vancomycin iv piggyback 1.25 g in D5W 250 mL (VANCOCIN) (COMPLETED) 1.25 g (rounded from 1.224 g = 0.015 g/kg/dose 81.6 kg), INTRAVENOUS, at 166.67 mL/hr, Administer over 1.5 Hours, ONCE, 1 dose, On Fri01/07/25 at 1230, REFRIGERATE - NONCYTOTOXIC IRRITANT WITH VESICANT POTENTIAL, Antimicrobial indication: Prophylaxis, Preprocedure 1420 (Given - Provid er: ANGIE Lima) Continuous Medication Order 01/05/2025 01/06/2025 01/07/2025 NaCl 0.9% iv infusion 30 mL/hr, INTRAVENOUS, CONTINUOUS, Starting on Fri01/07/25 at 1230, Until 01/08/25 at 0303, Preprocedure 1037 (New Bag/Syring e/Bottle - Provider: Kelley Frank RN)1405 (Continued by Anesthesia - Provider: ANGIE Lima)1452 (Infusion Complete - Provider: ANGIE Lima) NaCl 0.9% iv infusion 30 mL/hr, INTRAVENOUS, CONTINUOUS, Starting on Fri01/07/25 at 1530, Until 01/08/25 at 0303, Recovery or Phase I (only) 1530 (Due) PRN Medication Order 01/05/2025 01/06/2025 01/07/2025 acetaminophen 1,000 mg tab(s) (TYLENOL) 1,000 mg, ORAL, NEEDED, 1 dose, Starting on Fri01/07/25 at 1521, Until 01/08/25 at 0303, Mild Pain (1-3) - Enteral, If not given any other Acetaminophen containing product 4 hours prior, If ordered PRN for pain, patient/guardian may elect to receive this medication for higher pain levels INSTEAD of the opioid, if preferred: Yes, Recovery or Phase I (only) bupivacaine (PF) 0.25 % (2.5 mg/mL) injection (SENSORCAINE MPF) (CANCELED) X (OR/PROCEDURE) PRN, Starting on Fri01/07/25 at 1423, Until Fri01/07/25 at 1452, Intraprocedure 1423 (Given - Provid er: Ambrose Liu DPM) fentaNYL 50 mcg/mL 25 mcg injection (SUBLIMAZE) 25 mcg, INTRAVENOUS, EVERY 10 MINUTES NEEDED, 4 doses, Starting on Fri01/07/25 at 1521, Until 01/08/25 at 0303, FIRST LINE THERAPY for pain score 1 or greater, USE FOR MILD PAIN (1-3) ONLY IF PATIENT IS UNABLE TO TOLERATE ORAL THERAPY, Recovery or Phase I (only) lidocaine (PF) 10 mg/mL (1 %) 2 mg injection (XYLOCAINE) 2 mg (0.2 mL), INTRADERMAL, NEEDED, 1 dose, Starting on Fri01/07/25 at 1225, Until 01/08/25 at 0303, See admin instructions, May use prior to starting IV, Preprocedure NaCl 0.9% irrigation solution (CANCELED) X (OR/PROCEDURE) PRN, Starting on Fri01/07/25 at 1433, Until Fri01/07/25 at 1452, Intraprocedure 1433 (Given - Provid er: Ambrose Liu DPM) NaCl 0.9% iv flush bag 20 mL, INTRAVENOUS, NEEDED, Starting on Fri01/07/25 at 1225, Until 01/08/25 at 0303, See admin instructions, If no compatible primary is already running, infuse NaCl 0.9% as primary to flush tubing after non-chemotherapy, non-immunotherapy intermittent infusions. Administer at the same rate as intermittent infusion. Select the Flush Bag file on smart pump., Preprocedure ondansetron (PF) 4 mg injection (ZOFRAN)(Linked Group 1) 4 mg, INTRAVENOUS, EVERY 6 HOURS NEEDED, Starting on 01/07/25 at 1521, Until 01/08/25 at 0303, Nausea/Vomiting - First Line - Parenteral, EVERY 6 HOURS NEEDED Give IV push over 2 minutes. Use when patient unable to take medications by mouth., Recovery or Phase I (only) ondansetron 4 mg tab(s) (ZOFRAN)(Linked Group 1) 4 mg, ORAL, EVERY 6 HOURS NEEDED, Starting on Fri01/07/25 at 1521, Until 01/08/25 at 0303, Nausea/Vomiting - First Line - Enteral, EVERY 6 HOURS NEEDED Use when patient able to take medications by mouth., Recovery or Phase I (only) Linked Groups Order Group 1: ondansetron 4 mg tab(s) (ZOFRAN)Jump to med 4 mg, ORAL, EVERY 6 HOURS NEEDED, Starting on 01/07/25 at 1521, Until 01/08/25 at 0303, Nausea/Vomiting - First Line - Enteral, EVERY 6 HOURS NEEDED Use when patient able to take medications by mouth., Recovery or Phase I (only) Or ondansetron (PF) 4 mg injection (ZOFRAN)Jump to med 4 mg, INTRAVENOUS, EVERY 6 HOURS NEEDED, Starting on Fri01/07/25 at 1521, Until 01/08/25 at 0303, Nausea/Vomiting - First Line - Parenteral, EVERY 6 HOURS NEEDED Give IV push over 2 minutes. Use when patient unable to take medications by mouth., Recovery or Phase I (only) FOR RECORDS PERTAINING TO PATIENTS WHO ARE OR HAVE BEEN ENROLLED IN A CHEMICAL DEPENDENCY/SUBSTANCEABUSE PROGRAM, SOME INFORMATION MAY BE OMITTED. This clinical summary was aggregated from multiple sources. Caution should be exercised in using it in the provision of clinical care. This summary normalizes information from multiple sources, and as a consequence, information in this document may materially change the coding, format and clinical context of patient data. In addition, data may be omitted in some cases. CLINICAL DECISIONS SHOULD BE BASED ON THE PRIMARY CLINICAL RECORDS. [employer] [facility]. provides no warranty or guarantee of the accuracy or completeness of information in this document.
--- NOTE | 2025-04-22 08:19 | HP.PCM_ITS ---
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 She now has also a chronic ulceration right heel that we will plan for split-thickness skin graft at his if it still has not healed. FORMERLY [facility], 1928–1983 Medical History (Updated 04/22/25 @ 08:[address] Ambrose Campos MD) Cavovarus deformity of foot, acquired Wears hearing aid Walker as ambulation aid Gastric reflux Leg cramps History of pain when walking History of edema History of echocardiogram History of non-healing wound Osteomyelitis Failure of outpatient treatment Chronic wound Cellulitis of right lower extremity Osteoporosis Irregular heart beat Hypertension Cellulitis Urine incontinence Bradycardia Myopathy Neuropathy Hyponatremia LeFort I fracture Cervical stenosis of spinal canal Contusion of spinal cord Fall Physical debility Wears glasses Wears dentures Arthritis Low iron High cholesterol History of hiatal hernia CPAP (continuous positive airway pressure) dependence Former smoker Cardiology follow-up encounter History of stress test CHARLENE (obstructive sleep apnea) Rheumatoid arthritis Hiatal hernia Abnormal EKG Essential hypertension Vitamin D deficiency Diverticulosis Anxiety and depression Rash HLD (hyperlipidemia) Other hereditary and idiopathic neuropathies Chronic ulcer of left foot with fat layer exposed Localized edema Venous insufficiency (chronic) (peripheral) Other specified peripheral vascular diseases 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 exposed CHARLENE (obstructive sleep apnea) Abnormal chest CT Lipodermatosclerosis Cellulitis of right leg Home Medications ?Medication ?Instructions ?Recorded ?Last Taken ?Type atorvastatin 20 mg tablet 20 mg PO QHS Cholesterol 08/2104/21/25 History paroxetine HCl 20 mg tablet 20 mg PO QHS Depression 04/21/25 History aspirin 81 mg tablet,delayed 81 mg PO DAILY Heart 07/0604/21/25 History release (Adult Low Dose Aspirin) cholecalciferol (vitamin D3) 25 50 mcg PO DAILY Supple ment 07/19/22 04/21/25 History mcg (1,000 unit) tablet acetaminophen 325 mg tablet 1,000 mg PO TID PRN PRN Pa in Score 01/11/24 04/21/25 History (Tylenol) 1-10/Temp > 100.7 F lisinopril 2.5 mg tablet 2.5 mg PO 1700 #30 tabs 02/0404/21/25 Rx omeprazole 20 mg capsule,delayed 20 mg PO DAILY Stomac h acid #30 02/26/24 04/22/25 Rx release caps alendronate 70 mg tablet 70 mg PO QWEEK 09/18/2404/05 History amlodipine 5 mg tablet 5 mg PO DAILY 09/18/2404/22 History loperamide 2 mg capsule 2 mg PO Q2H PRN PRN Diarrhea /Loose 09/28/24 04/21/25 Rx Stools #0 caps ferrous sulfate 325 mg (65 mg 65 mg PO DAILY 04/13/25 04/21/25 History iron) capsule,extended release flaxseed oil 1,300 mg-omega 3,6,9 1 cap PO DAILY 04/1304/21/25 History 845 mg-117 mg-117 mg capsule turmeric 400 mg capsule 200 mg PO BID 04/22/2504/21 History Allergy/AdvReac Type Severity Reaction Status Date / Time cephalexin (From Keflex) Allergy Unknown rash, Verified 04/22/25 08:01 headaches bee venom protein (honey bee) Allergy Anaphylaxis Verified 04/22/25 08:01 Penicillins Allergy Hives Verified 04/22/25 08:01 pantoprazole (From Protonix) AdvReac Intermediate Thrombocyto Verified 04/22/25 08:01 penia Family History Father Heart disease Mother Colon cancer Sister Colon cancer Brother CVA (cerebral vascular accident) COPD (chronic obstructive pulmonary disease) Surgical History (Updated 04/13/25 @ 11:31 by Leticia Hurtado) Hx of foot surgery History of esophagogastroduodenoscopy (EGD) History of colonoscopy History of cholecystectomy Hx of appendectomy History of hysterectomy History of bilateral knee replacement Social History household members: spouse housing: house number of children: 1 pets and animals: Yes (1 small dog and 2 outdoor cats) pets and animals: cat(s) and dog(s) leisure activities: other history of recent travel: No Smoking Status: Former smoker Tobacco: How many years used: 20 how long ago did patient quit smokin, 1ppd second hand exposure: Yes alcohol intake: never substance use type: does not use ROS Constitutional Constitutional: Reports systems reviewed and no addt'l complaints, except as documented, as per HPI, anorexia, body ache(s), change in weight, chills, daytime sleepiness, difficulty sleeping, excessive sweating, fatigue, fever(s), frequent falls, headache(s), increased appetite, lethargy, malaise, night sweats, poor appetite, snoring, stops breathing during sleep, weakness, weight gain, weight loss and other Vital Signs Vital Signs Vital Signs: 04/22/25 08:07 04/22/25 08:07 Temperature 97.6 F L Temperature Source Temporal Pulse Rate 58 L Respiratory Rate 18 Respiratory Pattern Normal Blood Pressure 134/62 H Blood Pressure Mean 86 Blood Pressure Source Monitor Blood Pressure Position Semi-Fowlers Blood Pressure Location Left Arm Pulse Ox 100 Oxygen Delivery Method Room Air Weight Weight: 91 kg Body Mass Index (BMI) 31.4 Physical Exam Const alert, oriented x3, no apparent distress, average body habitus, no limitations, healthy appearing and well nourished HEENT normocephalic, head/scalp atraumatic, hearing grossly normal bilaterally, external ears normal, EAC's normal, TM's normal bilaterally, external nose normal, nasal mucous membranes and turbinates normal, moist oral mucous membranes, oropharynx normal, dentition normal and gingiva normal Eyes PERRL, EOMs intact bilaterally, conjunctivae normal, no scleral icterus, no papilledema, normal visual barnes by confrontation and fundi normal bilaterally Neck full ROM, nuchal rigidity, no lymphadenopathy, supple, no meningeal signs, no JVD, thyroid normal, nodes and no carotid bruits Chest inspection of chest normal, palpation of chest normal, inspection of breasts normal and palpation of breasts normal Resp normal respiratory effort, normal air movement, no retractions, no use of accessory muscles, clear to auscultation bilaterally and percussion normal Cardio regular rate, regular rhythm, S1 normal heart sound, S2 normal heart sound, no murmurs, no rub, no gallops, no clicks, no JVD, peripheral pulses 2+ throughout and diaphoretic Extremity Extremity Narrative: Chronic hammertoe contractures severe in nature with subluxation deformity of toes [id number] also ulceration right heel that is from the pressure sore due to a [place] [facility] plan for split-thickness skin graft if it has not healed. Assessment & Plan Assessment/Plan (1) Hammertoe of right foot: PLAN: Plan for arthrodesis hammertoe contracture and release of tendons (2) History of non-healing wound: PLAN: Plan for grafting, debridement (3) Cavovarus deformity of foot, acquired: PLAN: Plan Patient understands all risks complications and benefits of the surgical procedure we will plan for correction of her toes as well as grafting of her right heel if necessary follow-up outpatient
[2025-04-22] MEDS: Lactated Ringers 1,000 ML 15 ML IV (08:27)
--- NOTE | 2025-04-22 08:49 | PRE.ANES_ITS ---
ASA Classification* ASA Classification ASA Classification: 3 Assessment & Plan Anesthesia* Anesthesia Assessment Anesthesia Assessment: Discussed sedation and/or anesthesia options, risks, benefits, and alternatives with patient/parents/legal guardian/POA. Questions invited. The patient/parents/legal guardian/POA seems to understand and agrees to proceed with anesthesia plan. Reviewed the physical assessment, medical history, allergy history and patient home medications list prior to surgery/procedure/anesthetic and documented any changes. Performed airway and anesthesia risk assessments. Anesthesia Type Anesthesia Type: General History Source History Obtained from:: Patient and Chart Anesthesia Focused Assessment* Temperature: 97.6 F Pulse Rate: 58 Blood Pressure: 134/62 Respiratory Rate: 18 Pulse Ox: 100 Oxygen Delivery Method: Room Air Airway Assessment Mouth opens: >3 cm Mallampati Score: II Teeth Condition: Dentures (Full upper and lower dentures. There they are out.) Neck Range of motion (ROM): Limited ROM (2.) Labs Anesthesia Preop lab: CBC WBC 7.4 K/mm3 (4.4-11.0) 09/27/24 06:35 09/27/24 RBC 2.62 M/mm3 (4.2-5.4) L 09/27/24 06:35 09/27/24 Hgb 7.7 g/dL (12.0-15.0) L 09/27/24 06:35 09/27/24 Hct 23.4 % (37-47) L 09/27/24 06:35 09/27/24 Plt Count 220 K/mm3 (150-450) 09/27/24 06:35 09/27/24 CHEMISTRY Potassium 3.6 mmol/L (3.5-5.1) 09/27/24 06:35 09/27/24 Sodium 134 mmol/L (136-145) L 09/27/24 06:35 09/27/24 Magnesium 1.7 mg/dL (1.6-2.6) 09/19/24 05:44 09/19/24 Phosphorus 4.0 mg/dL (2.5-4.9) 09/19/24 05:44 09/19/24 BUN 17 mg/dL (7-18) 09/27/24 06:35 09/27/24 Creatinine 0.70 mg/dL (0.55-1.02) 09/27/24 06:35 09/27/24 Glucose 96 mg/dL (74-106) 09/27/24 06:35 09/27/24 TSH 2.480 uIU/mL (0.358-3.740) 09/19/24 05:44 09/05 02/26 COAG PT 14.7 SECONDS (11.7-14.9) 09/19/24 05:44 Pre-Assessment Diagnosis/Proposed Procedure Planned Operative Procedure(s): SPLIT THICKNESS SKIN GRAFT RIGHT FOOT/HEEL Anesthesia History 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 When Was Last Pacemaker Check QUESTION #4 FULL TEXT: You/Your Family Experience fever (hyperthermia) with Anesthesia Last Oral Intake Last Oral intake: Last Oral Intake NPO since 18:00 04/22/25 08:07 Meds taken in AM with sips of Yes 04/22/25 08:07 water? 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 Female Yes 04/13/25 11:21 HX of Motion Sickness No 04/13/25 11:21 HX of N/V After Surgery No 04/13/25 11:21 Non-Smoker Yes 04/13/25 11:21 Duration of Surgery greater Yes 04/13/25 11:21 than 60 minutes Number of Risk Factors 3 04/13/25 11:21 PONV Score Moderate Risk 04/13/25 11:21 Height & Weight Height & Weight: Anesthesia: Height & Weight Height 5 ft 7 in 04/22/25 08:07 Weight: 91 kg 04/22/25 08:07 Body Mass Index (BMI) 31.4 04/22/25 08:07 Respiratory Assessment Respiratory Assessment - asbestos 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 Has anyone observed you stop breathing during sleep? STOP Results Positive 04/13/25 11:21 QUESTION #5 FULL TEXT : Do you snore loudly (louder than talking or can be heard through closed doors)? 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 Specify any problems Hx of Preganancy in last 3 No 04/13/25 11:21 Months Nurse Filling Out Transfusion DSCHRIBER 04/13/25 11:21 & Questions: Date: 04/13/25 04/13/25 11:21 Time: 11:23 04/13/25 11:21 Patient unable to answer at this time (ie. 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: /Reproductive Hx- asbestos abatement worker Hx Now No 04/13/25 11:21 Gestational Age (in weeks): EDC: Hx Hx Para Hx Section SAB No 04/13/25 11:21 Active Medications Active Medications: Current Medications Generic Name Dose Route Start Last Admin Trade Name Freq PRN Reason Stop Dose Admin Cefazolin Sodium 2 gm/ Sodium 110 mls @ 200 mls/hr 04/22/25 09:00 Chloride IV 04/22/25 09:32 INTRAOP ONE Lactated Ringer's 1,000 mls @ 15 mls/hr 04/22/25 07:45 04/22/25 08:27 IV 15 mls/hr .Q48H MARSHALL Administration PFSH Medical History Cavovarus deformity of foot, acquired Wears hearing aid Walker as ambulation aid Gastric reflux Leg cramps History of pain when walking History of edema History of echocardiogram History of non-healing wound Osteomyelitis Failure of outpatient treatment Chronic wound Cellulitis of right lower extremity Osteoporosis Irregular heart beat Hypertension Cellulitis Urine incontinence Bradycardia Myopathy Neuropathy Hyponatremia LeFort I fracture Cervical stenosis of spinal canal Contusion of spinal cord Fall Physical debility Wears glasses Wears dentures Arthritis Low iron High cholesterol History of hiatal hernia CPAP (continuous positive airway pressure) dependence Former smoker Cardiology follow-up encounter History of stress test CHARLENE (obstructive sleep apnea) Rheumatoid arthritis Hiatal hernia Abnormal EKG Essential hypertension Vitamin D deficiency Diverticulosis Anxiety and depression Rash HLD (hyperlipidemia) Other hereditary and idiopathic neuropathies Chronic ulcer of left foot with fat layer exposed Localized edema Venous insufficiency (chronic) (peripheral) Other specified peripheral vascular diseases 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 exposed CHARLENE (obstructive sleep apnea) Abnormal chest CT Lipodermatosclerosis Cellulitis of right leg Home Medications ?Medication ?Instructions ?Recorded ?Last Taken ?Type atorvastatin 20 mg tablet 20 mg PO QHS Cholesterol 08/2104/21/25 History paroxetine HCl 20 mg tablet 20 mg PO QHS Depression 04/21/25 History aspirin 81 mg tablet,delayed 81 mg PO DAILY Heart 07/0604/21/25 History release (Adult Low Dose Aspirin) cholecalciferol (vitamin D3) 25 50 mcg PO DAILY Supple ment 07/19/22 04/21/25 History mcg (1,000 unit) tablet acetaminophen 325 mg tablet 1,000 mg PO TID PRN PRN Pa in Score 04/07/24 07/17/25 History (Tylenol) 1-10/Temp > 100.7 F lisinopril 2.5 mg tablet 2.5 mg PO 1700 #30 tabs 02/0404/21/25 Rx omeprazole 20 mg capsule,delayed 20 mg PO DAILY Stomac h acid #30 02/26/24 04/22/25 Rx release caps alendronate 70 mg tablet 70 mg PO QWEEK 09/18/2404/05 History amlodipine 5 mg tablet 5 mg PO DAILY 09/18/2404/22 History loperamide 2 mg capsule 2 mg PO Q2H PRN PRN Diarrhea /Loose 09/28/24 04/21/25 Rx Stools #0 caps ferrous sulfate 325 mg (65 mg 65 mg PO DAILY 04/13/25 04/21/25 History iron) capsule,extended release flaxseed oil 1,300 mg-omega 3,6,9 1 cap PO DAILY 04/1304/21/25 History 845 mg-117 mg-117 mg capsule turmeric 400 mg capsule 200 mg PO BID 04/22/2504/21 History Allergy/AdvReac Type Severity Reaction Status Date / Time cephalexin (From Keflex) Allergy Unknown rash, Verified 04/22/25 08:01 headaches bee venom protein (honey bee) Allergy Anaphylaxis Verified 04/22/25 08:01 Penicillins Allergy Hives Verified 04/22/25 08:01 pantoprazole (From Protonix) AdvReac Intermediate Thrombocyto Verified 04/22/25 08:01 penia Family History Father Heart disease Mother Colon cancer Sister Colon cancer Brother CVA (cerebral vascular accident) COPD (chronic obstructive pulmonary disease) Surgical History Hx of foot surgery History of esophagogastroduodenoscopy (EGD) History of colonoscopy History of cholecystectomy Hx of appendectomy History of hysterectomy History of bilateral knee replacement Social History household members: spouse housing: house number of children: 1 pets and animals: Yes (1 small dog and 2 outdoor cats) pets and animals: cat(s) and dog(s) leisure activities: other history of recent travel: No Smoking Status: Former smoker Tobacco: How many years used: 20 how long ago did patient quit smokin, 1ppd second hand exposure: Yes alcohol intake: never substance use type: does not use Review of Systems (Anesthesia) ROS Narrative System reviewed and no additional complaints, except as documented.
--- NOTE | 2025-04-22 08:58 | RAD_ITS ---
PROCEDURE: TOE(S) MIN 2 VIEWS 04/22/2025 REASON FOR EXAM: PARTIAL BONE RESECT GREAT TOE. TENOTOMY 2,3,4,5, PINNING TECHNIQUE: One view of the right toes was performed COMPARISON: Right foot study dated 09/18/2024 FINDINGS: There are radiopaque pins through what appears to be the 1st, 2nd, 3rd and 4th digits. Clinically correlate. Total air kerma is 0.0047 m/Gy RAD/Toe(s) Min 2 Views IMPRESSION: There are radiopaque pins through what appears to be the 1st, 2nd, 3rd and 4th digits. Clinically correlate. Reading Location: [id number]
[2025-04-22] MEDS: Bupiv/Epi 0.25% 30 ML Vial (09:35)
[2025-04-22] MEDS: Mineral Oil, Light Sterile 10 ML Vial MC (09:56)
--- NOTE | 2025-04-22 10:38 | PCM.POST.ANE ---
Anesthesia: Postop Eval I Current Vital Signs Temperature: 97.3 F Pulse Rate: 79 Blood Pressure: 135/47 Respiratory Rate: 20 Pulse Ox: 98 Oxygen Delivery Method: Room Air Assessment Airway patent: Yes Spontaneous unlabored respirations: Yes Mental status: Awake and Calm nausea: No Vomiting: No Anesthesia Complication: No Fluid Hydration Crystalloid volume administer (ml): 500 Total IV fluid infused: 500 Progress Note Anesthesia document: Postop Eval 1 completed: Yes
--- NOTE | 2025-04-22 11:52 | PCM.OPRPT ---
Operative Report (Standard) Operative Information Date of Procedure: 04/22/25 Pre-Operative Diagnosis: 1. Nonhealing ulceration right heel 2. Hammertoe contracture right foot 3. 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 Chronic open ulceration right heel Post-Operative Diagnosis: Same as above Surgery/Procedure Performed: 1. Preparation of skin graft prep site right heel with wound measured 1.5 cm x 1 cm x 0.2 2. Application of split-thickness skin graft taken from the anterior thigh using a 1 inch guard 3. Partial excision bone right great toe interphalangeal joint 4. Rotational advancement flap right great toe less than 10 cm? #5 arthrodesis second digit, third digit, fourth digit with pinning #6 tenotomy toes 2, 3, 4 all separate incisions right foot client support associate: No Type of Anesthesia: General and Local RN Documented Start/Stop Times: Operation Date: 04/22/25 09:00 Case Time Into Pre-Op 04/22/25 07:39 Anesthesia Start 04/22/25 09:10 Into Room 04/22/25 09:10 Out of Pre-Op 04/22/25 09:10 Procedure Start 04/22/25 09:34 Procedure End 04/22/25 10:28 Anesthesia End 04/22/25 10:31 Out of Room 04/22/25 10:31 Into Recovery 04/22/25 10:32 Into Phase II Recovery 04/22/25 10:50 Out of Recovery 04/22/25 10:50 Procedure Start Time: 09:34 Procedure Stop Time: 10:28 Select all DRAINS/GRAFTS/IMPLANTS that apply: None Estimated Blood Loss: 20 cc Specimen collected: No Description of surgery: This patient is a very well-known patient of mine at [facility] which the patient has undergone a bridle procedure for her right foot in which the patient had significant deformity of the right foot with severe Charcot deformity. 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 At the same time she has a significant nonhealing wound in the back of her heel that all started from a pressure sore from being in a care home. We have tried all conservative methods of everything she continues to get wounds at the tips of her toes she gets rubbing in her shoe she has a nonhealing wound of the IPJ of the right great toe that measures 0.2 x 0.3 x 0.2 which is also causing a significant problem with shoe rubbing After trying all conservative methods it is best to have surgical intervention as listed below. Patient was seen in the preoperative holding area where chart was reviewed and consent was signed. Patient was then taken back to the operating room placed Table in normal supine position. Once general anesthetic was then obtained a local block of quarter percent Marcaine plain was injected about the right heel and the toes for total of 10 cc, 10 cc of Marcaine with epinephrine was injected into the right thigh for also a total of 10 cc. The right lower extremity was then scrubbed prepped and draped usual aseptic technique. Timeout was then performed no Esmarch no tourniquet. 1010 drape sterile 4 them were draped around the thigh and that point then we then attention was then directed to the right heel the wound measured again 1.5 x 1.0 x 0.2 it was excisionally debrided into including subcutaneous tissue and situated prepared for skin graft prep site I removed all the granulation tissue I removed the hyperkeratotic rim and everything to get ready for preparation. At that point then the wound was then flushed and then plan for split-thickness skin grafting. Attention was then directed to the right great toe in which I made 2 transverse semielliptical incisions overlying the distal and dorsal aspect of the interphalangeal joint of the right great toe. The skin was completely cut out and resected and the skin plasty was removed from the IPJ At that point then there was noted to be an ulceration that was also excised during the time but this ellipse cannot be closed properly therefore I then made an incision into the interphalangeal joint right great toe exposing the proximal phalanx of the right great toe and therefore then resected with a sagittal saw after I partially resected the proximal phalanx of the right great toe I was able to lift the toe back in a place but in this case a flap had to be performed Using sharp and blunt dissection with meticulous dissection a flap was a U shaped lobe shaped flap which were made on the dorsal aspect of the IPJ of the skin I made it facing with the apex facing medially. Cutting the skin around in a [place] I then excised the ulceration of the right great toe after excising the wound which measured 0.5 x 0.2 x 0.2 the flap itself measured 1 cm x 0.2 x 0.2 I was able to create the flap undermined the tissue lifting it properly without focal necrosis and then sewed it back down to the area of the the flap itself. At that point then the skin was then closed with 3-0 Prolene I then closed the rest of the tissue as I dorsiflex the toe prior to this I inserted a 0.062 K wire from the base of the distal phalanx after prepping the joint of the distal phalanx by using a sagittal saw I prepped by removing the cartilage I then inserted a K wire from the proximal aspect of the base of the distal phalanx anterograde off of the distal tuft of the toe and then retrograded back across the metatarsal phalangeal joint and the interphalangeal joint thus creating the fusion I then was able to close the skin and the flap properly I then made an semielliptical incision overlying the top of the IPJ of the second, third, fourth digit all respectively and each incision I did this individually removing a skin ellipse. After removing the skin ellipse I then incised into the second digit interphalangeal joint releasing the ligaments and exposing the proximal phalanx the head of the proximal phalanx were then resected with a sagittal saw the base of the middle phalanx was resected with a sagittal saw to prep the wound site at that point then a K wire was inserted from the base the middle phalanx antegrade out the distal tuft of the third digit after this was then inserted then it was retrograded back across the interphalangeal joint and I pinned it across the metatarsal phalangeal joint there was excellent position I checked on fluoroscopy I then placed and cut the pin and placed the pin cover I then performed the exact same procedure with no changes or modifications still using a 0.054 K wire of toes 3 and 4 respectively and also checked them on fluoroscopy Due to the distal contracture of the distal interphalange joint of toes 3-3 and 4 I then made a separate incision along the plantar surface of second, third, fourth in which I made a small john incision cutting the tendon at the distal tuft of the interphalangeal joint and thus creating the toes to lift up properly. The rest of the toes lifted up after cutting the flexor tenotomy I did not have to so these I did so the rest of the skin as well as the patient is that he worked on. All the pins were covered the patient Toller procedure well without complications After we had then prepped the skin on the back of the heel we then took the split-thickness skin graft from the anterior thigh after using mineral oil I cut a hole in the drape I then took a 0.014 split-thickness skin graft from the thigh using the mineral oil and dermatome I measured a 1-1/2-1 mesher I then stapled into place in the back of the heel and I did a bolster dressing with dry gauze Adaptic and a sponge and then wrap the foot of the lower leg from distal to proximal keeping the entire leg stable. At that point then I dressed the anterior thigh with a silicone border thigh dressing and will follow-up outpatient. Patient was given hydrocodone for pain. Surgical Findings: Nonhealing ulceration, severe rigid deformity of toes 123 and 4 Complications Complications: No Admit VTE Documentation VTE Present on Admission: No
[2025-04-22] MEDS: HYDROcodone Bitartrate/Apap 5/325 Tablet PO (12:16)
--- NOTE | 2025-04-22 13:48 | SUR.PHASEII ---
pt instructed on partial weight bearing. pt lives with who is unable to assist at home. sister helping pt to get home. test kitchen home economist will help pt into house but not scheduled to come on the weekend days. pt up to wheelchair and bathroom with 1 assist.pt walked several steps to wheelchair prior to discharge. pt aware to call md via dry house operator if any concerns arise while at home.
--- NOTE | 2025-04-22 14:20 | POSTOPAN2_ITS ---
Anesthesia Postop Eval I Sum Postop Eval Completion status Anesthesia document: Postop Eval 1 completed: Yes Anesthesia Postop Eval I Summary Anesthesia Postop Eval I Summary: Anesthesia Postop Eval I: Assessment Summary Airway patent Yes 04/22/25 10:39 [email or web address] Spontaneous unlabored Yes 04/22/25 10:39 [email or web address] respirations Mental status Awake,Calm 04/22/25 10:39 [email or web address] nausea No 04/22/25 10:39 [email or web address] Vomiting No 04/22/25 10:39 [email or web address] Anesthesia Postop Eval I: Fluid Summary Crystalloid volume administer 500 04/22/25 10:39 [email or web address] (ml) Colloids volume administered ( ml) Blood Product volume administered (ml) Total IV fluid infused 500 04/22/25 10:39 [email or web address] Anesthesia Postop Eval I: Summary Notes Anesthesia Complication No 04/22/25 10:39 [email or web address] Anesthesia Complication Comment: Post-operative progress note Anesthesia: Postop Eval II Evaluation Mental status: Awake and Calm Pain Level: 1 nausea: No Vomiting: No Complications Anesthesia Complication: No
--- NOTE | 2025-04-22 14:20 | PCM.POSTANE2 ---
Anesthesia Postop Eval I Sum Postop Eval Completion status Anesthesia document: Postop Eval 1 completed: Yes Anesthesia Postop Eval I Summary Anesthesia Postop Eval I Summary: Anesthesia Postop Eval I: Assessment Summary Airway patent Yes 04/22/25 10:39 [email or web address] Spontaneous unlabored Yes 04/22/25 10:39 [email or web address] respirations Mental status Awake,Calm 04/22/25 10:39 [email or web address] nausea No 04/22/25 10:39 [email or web address] Vomiting No 04/22/25 10:39 [email or web address] Anesthesia Postop Eval I: Fluid Summary Crystalloid volume administer 500 04/22/25 10:39 [email or web address] (ml) Colloids volume administered ( ml) Blood Product volume administered (ml) Total IV fluid infused 500 04/22/25 10:39 [email or web address] Anesthesia Postop Eval I: Summary Notes Anesthesia Complication No 04/22/25 10:39 [email or web address] Anesthesia Complication Comment: Post-operative progress note Anesthesia: Postop Eval II Evaluation Mental status: Awake and Calm Pain Level: 1 nausea: No Vomiting: No Complications Anesthesia Complication: No
== END 2025-04-22 13:52 | disposition home or self-care (01) ==
LOC: SDC 07:35 → AC 07:37
PROVIDERS: PCP Internal Medicine; Referring Provider Podiatrist Foot & Ankle Surgery; Visit Provider Podiatrist Foot & Ankle Surgery
PROC: (CPT 28285; principal; 2025-04-22 08:45)
DX: L97.412 Non-pressure chronic ulcer of right heel and midfoot with fat layer exposed (principal); M06.9 Rheumatoid arthritis, unspecified; M20.41 Other hammer toe(s) (acquired), right foot; S91.131A Puncture wound without foreign body of right great toe without damage to nail, initial encounter; Q66.11 Congenital talipes calcaneovarus, right foot; K21.9 Gastro-esophageal reflux disease without esophagitis; I10 Essential (primary) hypertension; I87.2 Venous insufficiency (chronic) (peripheral); M81.0 Age-related osteoporosis without current pathological fracture; E55.9 Vitamin D deficiency, unspecified; F41.9 Anxiety disorder, unspecified; F32.A Depression, unspecified; I73.9 Peripheral vascular disease, unspecified; E78.00 Pure hypercholesterolemia, unspecified; G47.33 Obstructive sleep apnea (adult) (pediatric); Z79.82 Long term (current) use of aspirin; Z79.899 Other long term (current) drug therapy; Z87.891 Personal history of nicotine dependence
CPT/HCPCS: 28285 ×3; 28124; 14040; 15120; 15004; 28232 ×3; 01470; 73660; 76000; J2405

== ENCOUNTER → 2025-08-24 | Outpatient (CLI) | payer MEDICARE, SELFPAY | END | disposition home or self-care (01) | LOC: SL 11:38 | PROVIDERS: PCP Internal Medicine; Referring Provider Nurse Practitioner Acute Care; Visit Provider Nurse Practitioner Acute Care | DX: Z00.00 Encounter for general adult medical examination without abnormal findings (principal) ==